=== PATIENT | female | born 1970 | race Two or more races ===

== ENCOUNTER 2020-07-24 09:39 | Outpatient (REF) | payer MEDICAID, SELFPAY ==
--- NOTE | 2020-07-24 | MM_ITS ---
PROCEDURE: US GUIDED BREAST BIOPSY, LEFT CLINICAL INFORMATION: Left breast lesion lateral axillary tail COMPARISON: April 01, 2020 PROCEDURAL DETAILS: The details of the procedure, as well as the risks, benefits, and alternatives to the procedure were explained to the patient in detail and all of her questions were answered, after which written informed consent was obtained. Site and side were confirmed. Prior to the procedure, sonography revealed homogeneous mildly hypoechoic circumscribed lesion possibly representing a lipoma at approximately the 2 to 3:00 position. A time-out was performed, the lesion intended for biopsy was targeted, and the skin of the left breast was then prepped and draped in the usual sterile fashion. Using sonographic guidance, sterile technique, and 1% lidocaine without epinephrine for local anesthesia, multiple automated core biopsies were obtained through the targeted area with a 14G spring loaded Achieve core biopsy device. There was real-time confirmation of appropriate needle passage. Sampling was documented. At the completion of tissue sampling, a single butterfly shape metallic clip was deposited at the biopsy site. There was no evidence of immediate complication. SPECIMEN: An appropriate sample was obtained. DIGITAL POST-PROCEDURE MAMMOGRAPHY: Breast density: The tissue contains scattered areas of fibroglandular density. BI-RADS version 5, category B. Due to the deep lateral aspect of the biopsy site the clip could not be imaged on mammography. The patient tolerated the procedure well and, after assuring adequate hemostasis, was discharged in good condition after reviewing postbiopsy breast care instructions. Final pathology results are pending. MM/MM diagnostic mammo unilat LT IMPRESSION: 1. No immediate complication from ultrasound-guided percutaneous biopsy left breast. 2. Ultrasound was used to localize and guide marker clip placement. 3. Final pathology results are pending. A separate report with final recommendations will be issued once these results are made available.
== END 2020-07-24 09:40 | disposition home or self-care (01) ==
LOC: HO.MAMMO 09:39
PROVIDERS: PCP Internal Medicine; Visit Provider Family Medicine
DX: N63.20 Unspecified lump in the left breast, unspecified quadrant (principal)
CPT/HCPCS: 19083; 77065; 88305

== ENCOUNTER 2020-08-25 10:59 | Outpatient (REF) | payer MEDICAID, SELFPAY ==
[2020-08-26 11:07] LABS: BV Int Neg Control Negative (Negative); BV Int Pos Control Positive (Positive)
[2020-08-28 16:13] LABS: HPV mRNA E6/E7 rflx Not Detected (Not Detected)
[2020-09-19 10:42] LABS: CT PCR NOT DETECTED (Not Detect.); NG PCR NOT DETECTED (Not Detect.)
== END 2020-08-25 11:00 | disposition home or self-care (01) ==
LOC: HO.LAB 10:59
PROVIDERS: PCP Family Medicine; Referring Provider Family Medicine; Visit Provider Advanced Practice Midwife
DX: R10.2 Pelvic and perineal pain (principal); R87.619 Unspecified abnormal cytological findings in specimens from cervix uteri; Z86.718 Personal history of other venous thrombosis and embolism; Z86.711 Personal history of pulmonary embolism
CPT/HCPCS: 81025; 87480; 87491; 87510; 87591; 87624; 87625; 87660; 88141; 88142; 99202

== ENCOUNTER 2020-09-02 10:55 | Outpatient (REF) | payer MEDICAID, SELFPAY ==
--- NOTE | 2020-09-02 10:59 | US_ITS ---
EXAMINATION: US PELVIS COMPLETE. CLINICAL INFORMATION: Pelvic pain. History of endometriosis removal. COMPARISON: None TECHNIQUE: Transabdominal and transvaginal ultrasound of the pelvis is performed. FINDINGS: The uterus is anteverted measuring 8.8 cm in length, 4.8 cm in AP and 6.3 cm in transverse dimension. There is a heterogeneous-appearing myometrium. Endometrium thickness is not well seen. There is a hypoechoic lesion in the left fundus measuring 1.9 x 2.4 x 3.3 cm. A smaller hypoechoic lesion in the anterior right body of the uterus measures 1.1 x 0.9 x 1.1 cm. There are small nabothian cysts seen in the cervix. Likely acute-appearing uterus is suspected. Right ovary measures 2.8 x 1.2 x 2.5 cm and volume 4.4 mL. It appears unremarkable. The left ovary measures 3.4 x 2.1 x 2.7 cm and volume 10.2 mL. There is a small anechoic cyst measuring 2.6 x 2.0 x 1.8 cm and a small daughter cyst within. There is small amount of free fluid in the pelvis. US/US transvaginal IMPRESSION: 1. Two uterine fibroids as described above. The uterus probably has an arcuate appearance. The myometrium is heterogeneous. 2. Small daughter cyst, left ovary. 3. Small nabothian cysts in the cervix.
--- NOTE | 2020-09-02 10:59 | US_ITS ---
EXAMINATION: US PELVIS COMPLETE. CLINICAL INFORMATION: Pelvic pain. History of endometriosis removal. COMPARISON: None TECHNIQUE: Transabdominal and transvaginal ultrasound of the pelvis is performed. FINDINGS: The uterus is anteverted measuring 8.8 cm in length, 4.8 cm in AP and 6.3 cm in transverse dimension. There is a heterogeneous-appearing myometrium. Endometrium thickness is not well seen. There is a hypoechoic lesion in the left fundus measuring 1.9 x 2.4 x 3.3 cm. A smaller hypoechoic lesion in the anterior right body of the uterus measures 1.1 x 0.9 x 1.1 cm. There are small nabothian cysts seen in the cervix. Likely acute-appearing uterus is suspected. Right ovary measures 2.8 x 1.2 x 2.5 cm and volume 4.4 mL. It appears unremarkable. The left ovary measures 3.4 x 2.1 x 2.7 cm and volume 10.2 mL. There is a small anechoic cyst measuring 2.6 x 2.0 x 1.8 cm and a small daughter cyst within. There is small amount of free fluid in the pelvis. US/US pelvic complete IMPRESSION: 1. Two uterine fibroids as described above. The uterus probably has an arcuate appearance. The myometrium is heterogeneous. 2. Small daughter cyst, left ovary. 3. Small nabothian cysts in the cervix.
== END 2020-09-02 10:56 | disposition home or self-care (01) ==
LOC: HO.HMGCX 10:55
PROVIDERS: Visit Provider Advanced Practice Midwife
DX: R10.2 Pelvic and perineal pain (principal)
CPT/HCPCS: 76830; 76856

== ENCOUNTER → 2020-09-14 10:36 | Outpatient (BNVA) | payer MEDICAID, SELFPAY | PROVIDERS: PCP Family Medicine; Visit Provider Advanced Practice Midwife | DX: Z76.89 Persons encountering health services in other specified circumstances (principal) ==

== ENCOUNTER → 2020-12-08 13:37 | Outpatient (BNVA) | payer MEDICAID, SELFPAY | PROVIDERS: PCP Family Medicine; Visit Provider Advanced Practice Midwife | DX: N91.5 Oligomenorrhea, unspecified (principal); N76.4 Abscess of vulva; N95.1 Menopausal and female climacteric states; R23.2 Flushing | CPT/HCPCS: 81025; 99212 ==

== ENCOUNTER 2021-03-03 12:23 | Outpatient (REF) | payer MEDICAID, SELFPAY ==
--- NOTE | ~2021-03-03 | XR_ITS ---
EXAMINATION: XR ABDOMEN KUB CLINICAL INDICATION: Pelvic and perineal pain. COMPARISON: CT abdomen and pelvis 02/28/2020 TECHNIQUE: AP view of the abdomen. FINDINGS: There is a left ureteral stent with its tip in the left kidney pelvis and distal end in the ureter. There is scattered stool seen in the colon without distention. There is previous gallbladder resection. Mild facet joint arthropathy seen on the right at the L5-S1 disc level with minimal levoscoliosis mid lumbar spine. XR/XR KUB IMPRESSION: Mild constipation. Left intraureteral stent seen with no radiopaque calculi.
--- NOTE | ~2021-03-03 | CT_ITS ---
EXAMINATION: CT HIP WITHOUT CONTRAST, RIGHT CLINICAL INFORMATION: Myalgia. Pelvic pain. COMPARISON: None TECHNIQUE: 2 mm thin axial and reformatted 2 mm thin sagittal and coronal images of right hip were obtained. DLP: 204 mGy-cm This CT examination was performed using dose optimization techniques as appropriate, variously including the following: *Automated exposure control *Adjustment of mA and/or kV according to patient size (this includes techniques or standardized protocols for targeted exams where dose is matched to indication/reason for exam; i.e. extremities or head) *Use of iterative reconstruction technique. FINDINGS: There is normal alignment of right hip joint without any bony erosive changes or loose bodies. There is mild lateral acetabular spurring. No acute fracture or dislocation seen. The soft tissues are normal. CT/CT hip RT wo con IMPRESSION: 1. Mild lateral acetabular spurring. Otherwise unremarkable CT right hip exam 2. No visible acute fracture, dislocation, or bony erosive changes. The soft tissues are normal.
== END 2021-03-03 12:24 | disposition home or self-care (01) ==
LOC: HO.CT 12:23
PROVIDERS: Absent Provider Urology; PCP Family Medicine; Visit Provider Family Medicine
DX: R10.2 Pelvic and perineal pain (principal); M79.18 Myalgia, other site
CPT/HCPCS: 73700; 74018

== ENCOUNTER 2021-03-04 14:49 | Outpatient (REF) | payer MEDICAID, SELFPAY ==
--- NOTE | ~2021-03-04 | XR_ITS ---
EXAMINATION: CR RIGHT ANKLE. CR LEFT ANKLE. CR RIGHT FOOT. CR LEFT FOOT. CR RIGHT FINGER. CLINICAL INFORMATION: Pain in left ankle and joints of the left foot. Pain in right ankle and joints of right foot. Pain in right fingers. COMPARISON: Left foot films dated 07/02/2018. TECHNIQUE: 2 views of the right and left ankle. 3 views of the right and left feet, frontal view of the hand and coned-down oblique and lateral views of the first digit. FINDINGS: Left foot and ankle: No acute fracture or dislocation of the right foot and ankle. No significant ankle joint effusion. Ankle mortise symmetric and intact. Mild degenerative change at the first MTP joint again seen with joint space narrowing, spurring and sclerosis and small cystic changes, unchanged from 07/02/2018. Right foot and ankle: No acute fracture or dislocation. Ankle mortise symmetric and intact. No ankle joint effusion. Mild degenerative change at the first MTP joint, less advanced than on the contralateral left foot. Mild spurring versus sequelae of old avulsion injuries seen at the tips of the medial and lateral malleoli. Small plantar calcaneal spur seen. Right first finger: No acute fracture or dislocation. Minimal degenerative change at the first MTP joint with early spurring and cystic changes noted. No significant joint space narrowing seen. Mild cystic change also noted in the scaphoid and lunate bones. No soft tissue calcifications.. XR/XR finger RT min 2V IMPRESSION: 1. Mild osteoarthritic changes at the first MTP joints of both feet, left slightly more advanced than right. 2. Minimal degenerative change at the first MTP joint of the right first digit. 3. No acute fracture or dislocation involving the right ankle, right foot, left ankle, left foot, and right finger.
--- NOTE | ~2021-03-04 | XR_ITS ---
EXAMINATION: CR RIGHT ANKLE. CR LEFT ANKLE. CR RIGHT FOOT. CR LEFT FOOT. CR RIGHT FINGER. CLINICAL INFORMATION: Pain in left ankle and joints of the left foot. Pain in right ankle and joints of right foot. Pain in right fingers. COMPARISON: Left foot films dated 07/02/2018. TECHNIQUE: 2 views of the right and left ankle. 3 views of the right and left feet, frontal view of the hand and coned-down oblique and lateral views of the first digit. FINDINGS: Left foot and ankle: No acute fracture or dislocation of the right foot and ankle. No significant ankle joint effusion. Ankle mortise symmetric and intact. Mild degenerative change at the first MTP joint again seen with joint space narrowing, spurring and sclerosis and small cystic changes, unchanged from 07/02/2018. Right foot and ankle: No acute fracture or dislocation. Ankle mortise symmetric and intact. No ankle joint effusion. Mild degenerative change at the first MTP joint, less advanced than on the contralateral left foot. Mild spurring versus sequelae of old avulsion injuries seen at the tips of the medial and lateral malleoli. Small plantar calcaneal spur seen. Right first finger: No acute fracture or dislocation. Minimal degenerative change at the first MTP joint with early spurring and cystic changes noted. No significant joint space narrowing seen. Mild cystic change also noted in the scaphoid and lunate bones. No soft tissue calcifications.. XR/XR foot LT min 3V IMPRESSION: 1. Mild osteoarthritic changes at the first MTP joints of both feet, left slightly more advanced than right. 2. Minimal degenerative change at the first MTP joint of the right first digit. 3. No acute fracture or dislocation involving the right ankle, right foot, left ankle, left foot, and right finger.
--- NOTE | ~2021-03-04 | US_ITS ---
EXAMINATION: US VENOUS ULTRASOUND WITH DOPPLER LOWER EXTREMITY, BILATERAL CLINICAL INFORMATION: Bilateral leg pain COMPARISON: None TECHNIQUE: Ultrasound of the deep veins is performed from the hip to the calf with compression sonography and color and pulse Doppler assessment. Spectral analysis with color-flow imaging is performed. FINDINGS: RIGHT: There is normal venous compression and respiratory variation and augmented flow. The visualized common femoral vein, superficial femoral vein, profunda femoral vein, popliteal vein, and the trifurcation region shows no evidence of deep venous thrombosis. There is no significant popliteal fossa cyst. LEFT: There is normal venous compression and respiratory variation and augmented flow. The visualized common femoral vein, superficial femoral vein, profunda femoral vein, popliteal vein, and the trifurcation region shows no evidence of deep venous thrombosis. There is no significant popliteal fossa cyst. US/US venous duplex LE BI IMPRESSION: No DVT demonstrated in the bilateral lower extremity.
== END 2021-03-04 14:50 | disposition home or self-care (01) ==
LOC: HO.US 14:49
PROVIDERS: Absent Provider Family Medicine; PCP Family Medicine; Visit Provider Emergency Medicine
DX: M79.604 Pain in right leg (principal); M79.605 Pain in left leg; M79.644 Pain in right finger(s); M25.571 Pain in right ankle and joints of right foot; M25.572 Pain in left ankle and joints of left foot; M79.671 Pain in right foot; M79.672 Pain in left foot
CPT/HCPCS: 73140; 73600; 73630; 93970

== ENCOUNTER → 2021-03-10 14:03 | Outpatient (BNVA) | payer MEDICAID, SELFPAY | PROVIDERS: PCP Family Medicine; Visit Provider Urology ==

== ENCOUNTER 2021-03-10 14:52 | Emergency (ER) | payer MEDICAID, SELFPAY ==
[2021-03-10] VITALS (8 sets, daily range): BP systolic 134–155; BP diastolic 74–88; PULSE 69–78; RESP 16–20; TEMP 36.4–36.9; O2SAT 96–100; BMI 32.9
--- NOTE | 2021-03-10 15:31 | ECG_ITS ---
Test Reason : SOB Blood Pressure : / mmHG Vent. Rate : 069 BPM Atrial Rate : 069 BPM P-R Int : 146 ms QRS Dur : 098 ms QT Int : 426 ms P-R-T Axes : -05 017 014 degrees QTc Int : 456 ms Normal sinus rhythm Normal ECG When compared with ECG of 28-FEB-2020 17:30, No significant change was found Referred By: Cailin Lindsey Electronically Signed By:LISA NELSON MD
--- NOTE | 2021-03-10 15:31 | ED_ITS ---
HPI - Weakness General Chief complaint: Weakness Stated complaint: low blood sugar Time Seen by Provider: 03/10/21 15:29 Source: patient Mode of arrival: ambulatory Limitations: no limitations History of Present Illness HPI Narrative: 50 y/o female with history of asthma, anxiety, diabetes, endometriosis, hx DVT/PE, multiple sclerosis & HTN who presents to the ER from Dr. Paez's office with generalized weakness. She was over seeing Dr. Paez in the office for on/off hematuria x1 month. She felt like her glucose was low with generalized weakness so they sent her over for evaluation. POC 70. Patient admits to multiple falls at home over the last 1 month. She states as frequent as every other day. She lives home alone. She gets monthly infusions for her MS and is followed at [facility]. Had recent CT scan she thinks. She denies any numbness or tingling beyond her baseline; she suffers from neuropathy in her legs that is at its baseline. She denies fever, chills, abd pain, N/V, or dysuria. No focal weakness, speech difficulties or facial drooping. She checks her glucose once per day in the mornings and it has been on the lower side, 90's. Complaint: generalized weakness Onset (ago): week(s) Duration: constant Location: generalized Migration: none Severity: moderate Relieving factors: rest Exacerbating factors: movement and exertion Context: history of similar Associated symptoms: headaches and other (hematuria) Related Data Home Medications Medication Instructions Recorded Confirmed acetaminophen 325 mg capsule 650 mg PO Q6H PRN 08/25/20 albuterol sulfate 2.5 mg INHALATION Q4-6H PRN 08/25/20 albuterol sulfate 90 mcg/actuation 2 puff INHALATION Q4-6H PRN 08/25/20 aerosol inhaler alcohol swabs pad TOPICAL 08/25/20 apixaban 5 mg tablet 5 mg PO BID 08/25/20 aripiprazole 15 mg tablet 15 mg PO DAILY 08/25/20 atorvastatin 40 mg tablet 40 mg PO DAILY 08/25/20 blood sugar diagnostic #10 ea 08/25/20 buprenorphine 8 mg-naloxone 2 mg 1 film BUCCAL DAILY 08/25/20 sublingual film carboxymethylcellulose sodium 1 % 1 drp OPHTHALMIC (EYE) TID 08/25/20 eye drops cetirizine 10 mg capsule 10 mg PO DAILY 08/25/20 cholecalciferol (vitamin D3) 25 25 mcg PO DAILY 08/25/20 mcg (1,000 unit) capsule diphenhydramine HCl 25 mg capsule 25 mg PO Q6-8H PRN cap 08/25/20 docusate sodium 100 mg capsule 100 mg PO DAILY 08/25/20 doxepin 25 mg capsule 25 mg PO BEDTIME 08/25/20 famotidine 40 mg tablet 40 mg PO DAILY 08/25/20 fluticasone propionate 110 1 puff INHALATION BID 08/25/20 mcg/actuation HFA aerosol inhaler fluticasone propionate 50 2 spray INTRANASAL DAILY 08/25/20 mcg/actuation nasal spray,suspension insulin glargine 100 unit/mL (3 20 unit SUBCUT QAM 08/25/20 mL) subcutaneous pen lancets 28 gauge #100 ea 08/25/20 lidocaine 5 % topical cream 1 appl TOPICAL TID PRN 08/25/20 lorazepam 0.5 mg tablet 0.5 mg PO DAILY PRN 08/25/20 losartan 50 mg tablet 50 mg PO DAILY 08/25/20 metformin 1,000 mg tablet 1,000 mg PO BID 08/25/20 montelukast 10 mg tablet 10 mg PO BEDTIME 08/25/20 multivitamin 1 tab PO DAILY 08/25/20 natalizumab 300 mg/15 mL 300 mg IV Q4W 08/25/20 intravenous solution nebulizers #1 ea 08/25/20 nitroglycerin 0.4 mg sublingual 0.4 mg SUBLINGUAL Q5M PRN 08/25/20 tablet oxybutynin chloride 15 mg 15 mg PO BID tab 08/25/20 tablet,extended release 24 hr pen needle, diabetic 32 gauge x #50 ea 08/25/20 polyethylene glycol 3350 17 gram 17 g PO DAILY 08/25/20 oral powder packet prazosin 1 mg capsule 1 mg PO BID 08/25/20 sennosides 8.6 mg capsule 17.2 mg PO DAILY PRN cap 08/25/20 topiramate 100 mg capsule 100 mg PO DAILY 08/25/20 sprinkle,extended release 24 hr trazodone 100 mg tablet 100 mg PO BEDTIME PRN 08/25/20 venlafaxine 150 mg 150 mg PO DAILY 08/25/20 capsule,extended release 24 hr venlafaxine 75 mg capsule,extended 75 mg PO DAILY 08/25/20 release 24 hr losartan 25 mg tablet 25 mg PO DAILY 03/10/21 Previous Rx's Medication Instructions Recorded oxybutynin chloride 10 mg 15 mg PO BID 90 Days #270 tab 09/08/20 tablet,extended release 24 hr Allergies Allergy/AdvReac Type Severity Reaction Status Date / Time Iodinated Contrast Media Allergy Severe THROAT Verified 03/10/21 14:22 [IV CONTRAST] CLOSING lithium [LITHIUM] Allergy Intermediate AGGRESSION, Verified 03/10/21 14:22 stiffened up & throat closing (moderate to severe) fluoxetine [FLUOXETINE] Allergy Mild ITCHING Verified 03/10/21 14:22 risperidone [From RISPERDAL] Allergy Mild ITCHING Verified 03/10/21 14:22 asparagus [ASPARAGUS] Allergy Unknown unknown Verified 03/10/21 14:22 divalproex sodium Allergy Unknown UNKNOWN, Verified 03/10/21 14:22 [From DEPAKOTE] stiffened up, locked jaw lisinopril [LISINOPRIL] Allergy Unknown COUGH Verified 03/10/21 14:22 olanzapine Allergy Unknown can't Verified 03/10/21 14:22 recall if hives or increased pollen extracts [POLLEN] Allergy Unknown unknown Verified 03/10/21 14:22 tomato [TOMATO] Allergy Unknown UNKNOWN Verified 03/10/21 14:22 quetiapine [From SEROQUEL] AdvReac Intermediate OVERSEDATIO Verified 03/10/21 14:22 N ASPARAGUS Allergy Unknown Unknown Uncoded 08/25/20 11:09 BROCCOLI Allergy Unknown Unknown Uncoded 08/25/20 11:09 Fluoxetine Allergy Unknown suicidality Uncoded 02/25/20 00:00 FUMARATE Allergy Unknown Unknown Uncoded 08/25/20 11:09 GREEN CHEUNG Allergy Unknown Unknown Uncoded 08/25/20 11:09 GREEN BEANS Allergy Unknown UNKNOWN Uncoded 05/28/20 15:29 TOMATO Allergy Unknown Unknown Uncoded 08/25/20 11:09 Review of Systems Review of Systems: Constitutional: No Fever, No Chills ENT/Mouth: No sore throat, No Rhinorrhea, No Swallowing Difficulty Eyes: No Eye Pain, No Swelling, No Redness Cardiovascular: No Chest Pain, No SOB, No Orthopnea, No Edema Respiratory: No Cough, No Sputum, No Wheezing, No dyspnea Gastrointestinal: No Nausea, No Vomiting, No Diarrhea, No abdominal Pain Genitourinary: No Dysuria, + Urinary Frequency, + Hematuria Musculoskeletal: No joint pain, + Myalgias Skin: No Skin Lesions, No rash Neuro: + Weakness, No Numbness, + Dizziness, + Headache Psych: + Anxiety/Panic, No Depression Heme/Lymph: No Bruising, No Lymphadenopathy Endocrine: No Polyuria, No Polydipsia PMFSH Past Medical History Attestation statement: The following information was validated with the patient. Medical History Anxiety Asthma Diabetes mellitus Endometriosis History of DVT (deep vein thrombosis) History of pulmonary embolus (PE) HTN (hypertension) Multiple sclerosis Surgical History Hx of appendectomy Hx of cholecystectomy Hx of dilation and curettage Hx of tubal ligation Family History Family History Mother Rheumatoid arteritis COPD (chronic obstructive pulmonary disease) Father HTN (hypertension) Diabetes mellitus Social History Social History Alcohol intake: current Alcohol intake frequency: 0-2 drinks per day Patient Tobacco Use Status: Former Tobacco user Cigarettes Per Day: 4 Use of substances other than those prescribed or required for medical reasons: No Advance Directives: No Advance Directives Information Provided: Yes Gender identity: female Physical Exam Vital Signs: Vital Signs: Last Vital Signs Temp 97.6 F 03/10/21 17:15 Pulse 72 03/10/21 19:19 Resp 18 03/10/21 19:19 BP 152/85 H 03/10/21 19:19 Pulse Ox 99 03/10/21 19:19 Body Mass Index 32.9 Appearance: Alert. Oriented X3. No acute distress. Eyes: Pupils equal, round and reactive to light. EOMI, no nystagmus ENT: Pharynx normal. Neck: Normal inspection. Neck supple. CVS: Normal heart rate and rhythm. Pulses normal. Respiratory: No respiratory distress. Breath sounds normal. Abdomen: Softly distended and nontender. +BS x4 Skin: Skin warm and dry. Normal skin color. Normal skin turgor. No rashes. Extremities: No lower extremity edema. no signs of trauma Neuro: Oriented X 3. No motor deficit. bilateral lower extremities with mild weakness, able to lift both legs off the bed and minimally against gravity. equal and symmetrial strength of UE. NIH Stroke Scale Internal: Initial- Upon Arrival Level of Consciousness: Alert Level of Consciousness Questions: Answers both questions correctly Level of Consciousness Commands: Performs both tasks correctly Best Gaze: Normal Visual: No visual loss Facial Palsy: Normal Motor Arm (Right): No drift Motor Arm (Left): No drift Motor Leg (Right): Some effort against gravity Motor Leg (Left): Some effort against gravity Limb Ataxia: Absent Sensory: Mild to moderate sensory loss Best Language: No aphasia Dysarthia: Normal Extinction and Inattention: No abnormality Score: 5 Course Course Course Narrative: 50 y/o female with history of MS, diabetes, DVT/PE presenting with generalized weakness, multiple falls, hematuria x1 month and hypoglycemia. FS 54 on chemistry. Given PO with improvement. Neuro exam is nonfocal with chronic symptoms from neuropathy and MS. Doubt CVA/ Not a tPA candidate, she is on anticoagulation with weakness x1 month. Will get metabolic workup and monitor glucose closely. Reevaluation(s) Reevaluation #1: WBC 11.4. Labs unremarkable aside from hypoglycemia which is stable with PO intake. UA is grossly positive for infection. This is likely the cause of her weakness. We discussed concerns about safety at home with multiple falls and living alone. She would prefer to be admitted. Case d/w Dr. Moon who recommends PT/CM for short term rehab placement rather than admission. Patient is agreeable to spending the night in the ER, getting PT evaluation for possible services at home vs STR. PO abx started for UA Physician observation started at 7:30pm. Patient placed in physician observation because patient is awaiting PT evaluation for the possible need of placement to short term rehab. At the time observation was started patient's vital signs were stable. Patient is alert and oriented. Neuro exam is non-focal. CV: RRR and lungs are clear. Will continue to monitor. MDM - Weakness Medical Records Attestation: I reviewed the patient's medical records. Lab Data Attestation: I reviewed the patient's lab results. Result diagrams: 03/10/21 15:35 03/10/21 15:35 Labs: Lab Results 03/10/21 03/10/21 03/10/21 Range/Units 14:56 15:35 15:35 WBC 11.4 H (4.8-10.8) X10*3/uL RBC 4.44 (4.20-5.50) X10*6/uL Hgb 12.1 (12.0-16.0) g/dl Hct 37.0 (37-47) % MCV 83.3 (80-98) fL MCH 27.3 (27.0-33.0) pg MCHC 32.7 (31.0-35.0) g/dl RDW 13.7 (11.0-16.0) % Plt Count 272 (160-400) X10*3/uL MPV 9.2 L (9.4-12.3) fL Immature Gran % (Auto) 0.3 (0.0-0.4) % Neut % (Auto) 75.7 H (45-73) % Lymph % (Auto) 16.4 L (20-40) % [place] % (Auto) 5.8 (2-11) % Eos % (Auto) 1.5 (0-4) % Baso % (Auto) 0.3 (0-2) % Lymph # (Auto) 1.9 (1.2-4.9) X10*3/uL [place] # (Auto) 0.7 (0.1-1.2) X10*3/uL Eos # (Auto) 0.2 (0.0-0.4) X10*3/uL Baso # (Auto) 0.0 (0.0-0.2) X10*3/uL Abs Immat Gran (auto) 0.03 (0.00-0.03) X10*3/uL Absolute Neuts (auto) 8.7 H (2.0-8.3) X10*3/uL Absolute Nucleated RBC 0.000 (0.0-0.012) X10*3/uL Nucleated RBC % (auto) 0.0 (0.0-0.2) /100WBC PT (10.8-13.0) SEC INR (0.9-1.1) APTT (24.1-38.0) SEC Sodium 142 (135-145) mmol/L Potassium 3.6 (3.3-5.1) mmol/L Chloride 111 H (96-108) mmol/L Carbon Dioxide 22 (22-29) mmol/L Anion Gap 13 (12-20) BUN 13 (9-16) mg/dL Creatinine 0.77 (0.5-1.4) mg/dL Estim Creat Clear Calc 88.4 Estimated GFR > 60 POC Glucose 70 (60-115) mg/dL Random Glucose 52 L* (60-115) mg/dL Calcium 9.1 (8.4-10.2) mg/dL Magnesium 1.7 (1.6-2.6) mg/dL Total Bilirubin 0.2 (0.0-1.0) mg/dL Direct Bilirubin < 0.2 (0.0-0.5) mg/dL AST 22 (5-31) U/L ALT 22 (0-31) U/L Alkaline Phosphatase 95 (39-117) U/L Total Protein 6.6 (6.5-8.0) g/dL Albumin 3.9 (3.5-5.0) g/dL Urine Color Urine Appearance Urine pH (5.0-8.0) Ur Specific [place] (1.005-1.025) Urine Protein (NEG-TRACE) MG/DL Urine Glucose (UA) (NEG) MG/DL Urine Ketones (NEG) MG/DL Urine Blood (NEG) Urine Nitrite (NEG) Ur Leukocyte Esterase (NEG) Urine RBC (0) /HPF Urine WBC (0-4) /HPF Ur Squamous Epith Cells /LPF Urine Bacteria /LPF Urine Mucus /LPF Urine Opiates Screen (Not Detect) Ur Barbiturates Screen (Not Detect) Ur Phencyclidine Scrn (Not Detect) Ur Amphetamines Screen (Not Detect) U Benzodiazepines Scrn (Not Detect) Urine Cocaine Screen (Not Detect) U Marijuana (THC) Screen (Not Detect) 03/10/21 03/10/21 03/10/21 Range/Units 15:35 16:01 16:01 WBC (4.8-10.8) X10*3/uL RBC (4.20-5.50) X10*6/uL Hgb (12.0-16.0) g/dl Hct (37-47) % MCV (80-98) fL MCH (27.0-33.0) pg MCHC (31.0-35.0) g/dl RDW (11.0-16.0) % Plt Count (160-400) X10*3/uL MPV (9.4-12.3) fL Immature Gran % (Auto) (0.0-0.4) % Neut % (Auto) (45-73) % Lymph % (Auto) (20-40) % [place] % (Auto) (2-11) % Eos % (Auto) (0-4) % Baso % (Auto) (0-2) % Lymph # (Auto) (1.2-4.9) X10*3/uL [place] # (Auto) (0.1-1.2) X10*3/uL Eos # (Auto) (0.0-0.4) X10*3/uL Baso # (Auto) (0.0-0.2) X10*3/uL Abs Immat Gran (auto) (0.00-0.03) X10*3/uL Absolute Neuts (auto) (2.0-8.3) X10*3/uL Absolute Nucleated RBC (0.0-0.012) X10*3/uL Nucleated RBC % (auto) (0.0-0.2) /100WBC PT 11.3 (10.8-13.0) SEC INR 1.0 (0.9-1.1) APTT 41.9 H (24.1-38.0) SEC Sodium (135-145) mmol/L Potassium (3.3-5.1) mmol/L Chloride (96-108) mmol/L Carbon Dioxide (22-29) mmol/L Anion Gap (12-20) BUN (9-16) mg/dL Creatinine (0.5-1.4) mg/dL Estim Creat Clear Calc Estimated GFR POC Glucose (60-115) mg/dL Random Glucose (60-115) mg/dL Calcium (8.4-10.2) mg/dL Magnesium (1.6-2.6) mg/dL Total Bilirubin (0.0-1.0) mg/dL Direct Bilirubin (0.0-0.5) mg/dL AST (5-31) U/L ALT (0-31) U/L Alkaline Phosphatase (39-117) U/L Total Protein (6.5-8.0) g/dL Albumin (3.5-5.0) g/dL Urine Color YELLOW Urine Appearance CLEAR Urine pH 6.5 (5.0-8.0) Ur Specific [place] <= 1.005 (1.005-1.025) Urine Protein NEG (NEG-TRACE) MG/DL Urine Glucose (UA) NEG (NEG) MG/DL Urine Ketones NEG (NEG) MG/DL Urine Blood 3+ H (NEG) Urine Nitrite POS H (NEG) Ur Leukocyte Esterase 2+ H (NEG) Urine RBC 15-29 H (0) /HPF Urine WBC 15-29 H (0-4) /HPF Ur Squamous Epith Cells 2+ /LPF Urine Bacteria TRACE /LPF Urine Mucus 2+ /LPF Urine Opiates Screen Not Detected (Not Detect) Ur Barbiturates Screen Not Detected (Not Detect) Ur Phencyclidine Scrn Not Detected (Not Detect) Ur Amphetamines Screen Not Detected (Not Detect) U Benzodiazepines Scrn Not Detected (Not Detect) Urine Cocaine Screen Not Detected (Not Detect) U Marijuana (THC) Screen Not Detected (Not Detect) 03/10/21 03/10/21 03/10/21 Range/Units 17:18 17:56 19:07 WBC (4.8-10.8) X10*3/uL RBC (4.20-5.50) X10*6/uL Hgb (12.0-16.0) g/dl Hct (37-47) % MCV (80-98) fL MCH (27.0-33.0) pg MCHC (31.0-35.0) g/dl RDW (11.0-16.0) % Plt Count (160-400) X10*3/uL MPV (9.4-12.3) fL Immature Gran % (Auto) (0.0-0.4) % Neut % (Auto) (45-73) % Lymph % (Auto) (20-40) % [place] % (Auto) (2-11) % Eos % (Auto) (0-4) % Baso % (Auto) (0-2) % Lymph # (Auto) (1.2-4.9) X10*3/uL [place] # (Auto) (0.1-1.2) X10*3/uL Eos # (Auto) (0.0-0.4) X10*3/uL Baso # (Auto) (0.0-0.2) X10*3/uL Abs Immat Gran (auto) (0.00-0.03) X10*3/uL Absolute Neuts (auto) (2.0-8.3) X10*3/uL Absolute Nucleated RBC (0.0-0.012) X10*3/uL Nucleated RBC % (auto) (0.0-0.2) /100WBC PT (10.8-13.0) SEC INR (0.9-1.1) APTT (24.1-38.0) SEC Sodium (135-145) mmol/L Potassium (3.3-5.1) mmol/L Chloride (96-108) mmol/L Carbon Dioxide (22-29) mmol/L Anion Gap (12-20) BUN (9-16) mg/dL Creatinine (0.5-1.4) mg/dL Estim Creat Clear Calc Estimated GFR POC Glucose 54 L* 102 183 H (60-115) mg/dL Random Glucose (60-115) mg/dL Calcium (8.4-10.2) mg/dL Magnesium (1.6-2.6) mg/dL Total Bilirubin (0.0-1.0) mg/dL Direct Bilirubin (0.0-0.5) mg/dL AST (5-31) U/L ALT (0-31) U/L Alkaline Phosphatase (39-117) U/L Total Protein (6.5-8.0) g/dL Albumin (3.5-5.0) g/dL Urine Color Urine Appearance Urine pH (5.0-8.0) Ur Specific [place] (1.005-1.025) Urine Protein (NEG-TRACE) MG/DL Urine Glucose (UA) (NEG) MG/DL Urine Ketones (NEG) MG/DL Urine Blood (NEG) Urine Nitrite (NEG) Ur Leukocyte Esterase (NEG) Urine RBC (0) /HPF Urine WBC (0-4) /HPF Ur Squamous Epith Cells /LPF Urine Bacteria /LPF Urine Mucus /LPF Urine Opiates Screen (Not Detect) Ur Barbiturates Screen (Not Detect) Ur Phencyclidine Scrn (Not Detect) Ur Amphetamines Screen (Not Detect) U Benzodiazepines Scrn (Not Detect) Urine Cocaine Screen (Not Detect) U Marijuana (THC) Screen (Not Detect) 03/10/21 Range/Units 19:29 WBC (4.8-10.8) X10*3/uL RBC (4.20-5.50) X10*6/uL Hgb (12.0-16.0) g/dl Hct (37-47) % MCV (80-98) fL MCH (27.0-33.0) pg MCHC (31.0-35.0) g/dl RDW (11.0-16.0) % Plt Count (160-400) X10*3/uL MPV (9.4-12.3) fL Immature Gran % (Auto) (0.0-0.4) % Neut % (Auto) (45-73) % Lymph % (Auto) (20-40) % [place] % (Auto) (2-11) % Eos % (Auto) (0-4) % Baso % (Auto) (0-2) % Lymph # (Auto) (1.2-4.9) X10*3/uL [place] # (Auto) (0.1-1.2) X10*3/uL Eos # (Auto) (0.0-0.4) X10*3/uL Baso # (Auto) (0.0-0.2) X10*3/uL Abs Immat Gran (auto) (0.00-0.03) X10*3/uL Absolute Neuts (auto) (2.0-8.3) X10*3/uL Absolute Nucleated RBC (0.0-0.012) X10*3/uL Nucleated RBC % (auto) (0.0-0.2) /100WBC PT (10.8-13.0) SEC INR (0.9-1.1) APTT (24.1-38.0) SEC Sodium (135-145) mmol/L Potassium (3.3-5.1) mmol/L Chloride (96-108) mmol/L Carbon Dioxide (22-29) mmol/L Anion Gap (12-20) BUN (9-16) mg/dL Creatinine (0.5-1.4) mg/dL Estim Creat Clear Calc Estimated GFR POC Glucose 153 H (60-115) mg/dL Random Glucose (60-115) mg/dL Calcium (8.4-10.2) mg/dL Magnesium (1.6-2.6) mg/dL Total Bilirubin (0.0-1.0) mg/dL Direct Bilirubin (0.0-0.5) mg/dL AST (5-31) U/L ALT (0-31) U/L Alkaline Phosphatase (39-117) U/L Total Protein (6.5-8.0) g/dL Albumin (3.5-5.0) g/dL Urine Color Urine Appearance Urine pH (5.0-8.0) Ur Specific [place] (1.005-1.025) Urine Protein (NEG-TRACE) MG/DL Urine Glucose (UA) (NEG) MG/DL Urine Ketones (NEG) MG/DL Urine Blood (NEG) Urine Nitrite (NEG) Ur Leukocyte Esterase (NEG) Urine RBC (0) /HPF Urine WBC (0-4) /HPF Ur Squamous Epith Cells /LPF Urine Bacteria /LPF Urine Mucus /LPF Urine Opiates Screen (Not Detect) Ur Barbiturates Screen (Not Detect) Ur Phencyclidine Scrn (Not Detect) Ur Amphetamines Screen (Not Detect) U Benzodiazepines Scrn (Not Detect) Urine Cocaine Screen (Not Detect) U Marijuana (THC) Screen (Not Detect) ECG Data Attestation: I personally reviewed and interpreted this ECG as follows: ECG interpretation date: 03/10/21 ECG interpretation time: 19:06 Interpretation: normal sinus rhythm, HR 69 bpm, normal MO interval, No ST segment depressions or elevations, normal ECG Critical Care Time Critical Care Time Critical Care Time: No Discharge Plan Discharge Clinical Impression: Acute UTI, Hypoglycemia Prescriptions: No Action oxybutynin chloride 10 mg tablet extended release 24hr 15 mg PO BID 90 Days Qty: 270 RF: 2 lorazepam 0.5 mg tablet 0.5 mg PO DAILY PRNRF: 0 oxybutynin chloride 15 mg tablet extended release 24hr 15 mg PO BID RF: 0 doxepin 25 mg capsule 25 mg PO BEDTIME RF: 0 nitroglycerin [Nitrostat] 0.4 mg tablet, sublingual 0.4 mg sublingual Q5M PRNRF: 0 Tysabri 300 mg/15 mL solution 300 mg IV Q4W RF: 0 All Day Allergy (cetirizine) 10 mg capsule 10 mg PO DAILY RF: 0 diphenhydramine HCl [Allergy (diphenhydramine)] 25 mg capsule 25 mg PO Q6-8H PRNRF: 0 polyethylene glycol 3350 [Miralax] 17 gram powder in packet 17 g PO DAILY RF: 0 (DME) AeroEclipse II Nebulizer Misc See Rx Instructions .ROUTE .MEDSUPPLY Qty: 1 RF: 0 Artificial Tears (cmc) 1 % drops 1 drp ophthalmic (eye) TID RF: 0 senna 8.6 mg capsule 17.2 mg PO DAILY PRNRF: 0 albuterol sulfate 2.5 mg /3 mL (0.083 %) solution for nebulization 2.5 mg inhalation Q4-6H PRNRF: 0 acetaminophen 325 mg capsule 650 mg PO Q6H PRNRF: 0 albuterol sulfate [ProAir HFA] 90 mcg/actuation HFA aerosol inhaler 2 puff inhalation Q4-6H PRNRF: 0 Flovent HFA 110 mcg/actuation HFA aerosol inhaler 1 puff inhalation BID RF: 0 alcohol swabs [Alcohol Pads] Pads, Medicated topical RF: 0 aripiprazole [Abilify] 15 mg tablet 15 mg PO DAILY RF: 0 trazodone 100 mg tablet 100 mg PO BEDTIME PRNRF: 0 venlafaxine 75 mg capsule,extended release 24hr 75 mg PO DAILY RF: 0 topiramate 100 mg capsule,sprinkle,ER 24hr 100 mg PO DAILY RF: 0 venlafaxine 150 mg capsule,extended release 24hr 150 mg PO DAILY RF: 0 prazosin 1 mg capsule 1 mg PO BID RF: 0 atorvastatin [Lipitor] 40 mg tablet 40 mg PO DAILY RF: 0 metformin 1,000 mg tablet 1,000 mg PO BID RF: 0 montelukast [Singulair] 10 mg tablet 10 mg PO BEDTIME RF: 0 cholecalciferol (vitamin D3) 25 mcg (1,000 unit) capsule 25 mcg PO DAILY RF: 0 multivitamin Tablet 1 tab PO DAILY RF: 0 (DME) lancets [FreeStyle Lancets] 28 gauge misc See Rx Instructions .ROUTE .MEDSUPPLY Qty: 100 RF: 0 Lantus Solostar U-100 Insulin 100 unit/mL (3 mL) insulin pen 20 unit subcut QAM RF: 0 (DME) FreeStyle Lite Strips Strip See Rx Instructions .ROUTE .MEDSUPPLY Qty: 10 RF: 0 famotidine [Pepcid] 40 mg tablet 40 mg PO DAILY RF: 0 docusate sodium [Colace] 100 mg capsule 100 mg PO DAILY RF: 0 (DME) pen needle, diabetic [Comfort EZ Pen [place]] 32 gauge x 5/32 needle See Rx Instructions .ROUTE .MEDSUPPLY Qty: 50 RF: 0 Eliquis 5 mg tablet 5 mg PO BID RF: 0 fluticasone propionate [Flonase Allergy Relief] 50 mcg/actuation spray,suspension 2 spray intranasal DAILY RF: 0 losartan 50 mg tablet 50 mg PO DAILY RF: 0 lidocaine 5 % cream 1 appl topical TID PRNRF: 0 buprenorphine-naloxone [Suboxone] 8-2 mg film 1 film buccal DAILY RF: 0
[2021-03-10 16:17] LABS: Glucose Urine UA NEG (NEG); Leukocyte Esterase Urine 2+ (NEG); Nitrite Urine POS (NEG); PH 6.5 (5.0-8.0); Specific Gravity - Urine <= 1.005 (1.005-1.025); UACC Culture Trigger YES; Urine Blood 3+ (NEG); Urine Ketones NEG (NEG); Urine Protein NEG (NEG-TRACE)
[2021-03-10 16:18] LABS: Appearance Urine CLEAR; Color Urine YELLOW
[2021-03-10 16:33] LABS: Amphetamine Screen Urine Not Detected (Not Detect); Barbiturates, Urine Not Detected (Not Detect); Benzodiazepines Screen Urine Not Detected (Not Detect); Cannabinoid Screen Urine Not Detected (Not Detect); Cocaine Screen Urine Not Detected (Not Detect); Opiate Screen Urine Not Detected (Not Detect); Phencyclidine Screen Urine Not Detected (Not Detect)
[2021-03-10 16:44] LABS: MANUAL DIFF FLAG NO
[2021-03-10 16:45] LABS: Basophils Percent Auto 0.3 % (0-2); Eosinophils Absolute Auto 0.2 X10*3/uL (0.0-0.4); Eosinophils Percent Auto 1.5 % (0-4); Hemoglobin 12.1 g/dl (12.0-16.0); Imm Gran Abs Auto 0.03 X10*3/uL (0.00-0.03); Imm Gran Pct Auto 0.3 % (0.0-0.4); Lymphocytes Absolute Auto 1.9 X10*3/uL (1.2-4.9); Lymphocytes Percent Auto 16.4 % (20-40); Mean Corpuscular HGB Conc 32.7 g/dl (31.0-35.0); Mean Corpuscular Hemoglobin 27.3 pg (27.0-33.0); Mean Corpuscular Volume 83.3 fL (80-98); Mean Platelet Volume 9.2 fL (9.4-12.3); Monocytes Absolute Auto 0.7 X10*3/uL (0.1-1.2); Monocytes Percent Auto 5.8 % (2-11); Neutrophils Absolute Auto 8.7 X10*3/uL (2.0-8.3); Neutrophils Percent Auto 75.7 % (45-73); Platelet Count 272 X10*3/uL (160-400); Red Blood Count 4.44 X10*6/uL (4.20-5.50); Red Cell Distribution Width 13.7 % (11.0-16.0); White Blood Count 11.4 X10*3/uL (4.8-10.8)
[2021-03-10 16:45] LABS: Bacteria Urine TRACE /LPF; Mucus Urine 2+ /LPF; Squamous Epithelial Cell Urine 2+ /LPF
[2021-03-10 16:51] LABS: Prothrombin Time 11.3 SEC (10.8-13.0)
[2021-03-10 16:54] LABS: Partial Thromboplastin Time 41.9 SEC (24.1-38.0)
--- NOTE | 2021-03-10 17:00 | PC.NURSE ---
Patient has been up to bedside commode x 2 unassisted. Pt states she is feeling a little better
[2021-03-10 17:24] LABS: Glucose, Whole Blood 54 mg/dL (60-115)
[2021-03-10 17:26] LABS: Alanine Aminotransferase 22 U/L (0-31); Albumin Level 3.9 g/dL (3.5-5.0); Alkaline Phosphatase 95 U/L (39-117); Anion Gap 13 (12-20); Aspartate Amino Transferase 22 U/L (5-31); Bilirubin Direct < 0.2 mg/dL (0.0-0.5); Bilirubin Total 0.2 mg/dL (0.0-1.0); Blood Urea Nitrogen 13 mg/dL (9-16); Calcium 9.1 mg/dL (8.4-10.2); Carbon Dioxide 22 mmol/L (22-29); Chloride 111 mmol/L (96-108); Creatinine Clr Calc Pharmacy 88.4; Estimated Glomerular Filt Rate > 60; Glucose Random 52 mg/dL (60-115); Magnesium 1.7 mg/dL (1.6-2.6); Potassium 3.6 mmol/L (3.3-5.1); Sodium 142 mmol/L (135-145); Total Protein 6.6 g/dL (6.5-8.0)
--- NOTE | 2021-03-10 17:33 | PC.NURSE ---
Patient is alert and oriented. Pt given a sandwich and juice for lw POC blood sugar of 52
[2021-03-10 17:57] LABS: Glucose, Whole Blood 70 mg/dL (60-115)
--- NOTE | 2021-03-10 17:59 | PC.NURSE ---
Recheck of POC blood sugar after eating sandwich, juice and pudding is 102. Results given to provider. Provider aware that patient does not have IV access currently due to being a difficulty stick.
[2021-03-10 18:00] LABS: Glucose, Whole Blood 102 mg/dL (60-115)
[2021-03-10 19:13] LABS: Glucose, Whole Blood 183 mg/dL (60-115)
[2021-03-10 19:34] LABS: Glucose, Whole Blood 153 mg/dL (60-115)
--- NOTE | 2021-03-10 19:36 | PC.NURSE ---
pt is a hard iv stick, pt doesnt have a iv at this time. provider Cailin is aware and ok for no iv ascess at this time. po medications given. plan is to stay tonight and be seen by case management.
--- NOTE | 2021-03-10 20:45 | PHA.MEDREC ---
MED REC COMPLETE, NO ISSUESPharmacy Consult ? Medication Reconciliation Pharmacy has completed the medication reconciliation.
[2021-03-10 21:43] LABS: COVID-19 Test Negative (Negative); IDNOW Serial# 9DD0AD1C
--- NOTE | 2021-03-10 22:44 | MHC.CM.ED ---
CM met with patient at request of Dr. Fragoso. Pt has had recent falls, UTI, and has MS. Pt lives alone, uses a cane/walker and has 19.5 hours/week [employer] from [facility]. Pt is agreeable to PT evaluation, and will consider acute rehab at [place] and [facility]. Referrals placed. CM will follow for d/c needs.
[2021-03-11] VITALS: RESP 20; O2SAT 98
--- NOTE | 2021-03-11 01:14 | PC.NURSE ---
pt left her room and was found in the waiting room. pt states she cant sleep due to the pain in her shoulder and arm. pt wants to go home for a warm shower.
[2021-03-11 01:18] VITALS: BP 134/87; PULSE 89; RESP 20; O2SAT 98
[2021-03-11] MEDS: Acetaminophen 325 MG TABLET 975 MG PO (01:47)
[2021-03-11 02:00] VITALS: BP 159/68; PULSE 76; RESP 16; TEMP 36.8; O2SAT 98
[2021-03-11 07:13] VITALS: BP 182/87; PULSE 77; RESP 18; O2SAT 100
--- NOTE | 2021-03-11 07:16 | PC.NURSE ---
Physical Therapy at bedside evaluating patient
--- NOTE | 2021-03-11 07:35 | PC.NURSE ---
Patient sitting in bed eating breakfast in no distress.
[2021-03-11 07:36] VITALS: BP 182/87; PULSE 77; O2SAT 100
[2021-03-11 07:42] LABS: Glucose, Whole Blood 142 mg/dL (60-115)
--- NOTE | 2021-03-11 09:16 | MHC.CM.ED ---
Physical therapy eval completed. Home therapy is recommended. Attempted to meet with patient about arranging home services. Patient is not in her room. Per LUCIUS Johnson patient has not been in her room for about 45 mins. It is assumed that patient left AMA. Will continue to seek out patient. However, if patient left ER AMA, no additional services will be able to be provided. Continue to monitor for d/c needs.
== END 2021-03-11 09:27 | disposition left against medical advice (07) ==
PROVIDERS: Physician Assistant; Emergency Provider Emergency Medicine; PCP Family Medicine
DX: N39.0 Urinary tract infection, site not specified (principal); E11.649 Type 2 diabetes mellitus with hypoglycemia without coma; I10 Essential (primary) hypertension; G35 Multiple sclerosis; J45.909 Unspecified asthma, uncomplicated; Z86.711 Personal history of pulmonary embolism; Z86.718 Personal history of other venous thrombosis and embolism; Z79.01 Long term (current) use of anticoagulants; Z79.4 Long term (current) use of insulin; Z79.899 Other long term (current) drug therapy; Z20.822 Contact with and (suspected) exposure to COVID-19
CPT/HCPCS: 36415; 80048; 80076; 80307; 81001; 81003; 82947; 83735; 85025; 85610; 85730; 87086; 87088; 87186; 87635; 93005; 97162; 99285

== ENCOUNTER 2021-03-16 12:44 | Outpatient (REF) | payer MEDICAID, SELFPAY ==
--- NOTE | ~2021-03-16 | XR_ITS ---
EXAMINATION: XR HAND, RIGHT CLINICAL INFORMATION: Pain right fingers COMPARISON: X-ray 03/04/2021 TECHNIQUE: PA, lateral, and oblique views of the right hand. FINDINGS: The bones and soft tissues are normal. No fracture. Alignment is anatomic. Joint spaces are maintained. No erosions or soft tissue calcifications. XR/XR hand RT min 3V IMPRESSION: Normal right hand.
== END 2021-03-16 12:45 | disposition home or self-care (01) ==
LOC: HO.XRAY 12:44
PROVIDERS: PCP Family Medicine; Referring Provider Family Medicine; Visit Provider Emergency Medicine
DX: M79.644 Pain in right finger(s) (principal)
CPT/HCPCS: 73130

== ENCOUNTER → 2021-03-18 13:23 | Outpatient (BNVA) | payer MEDICAID, SELFPAY | PROVIDERS: PCP Family Medicine; Referring Provider Family Medicine; Visit Provider Physician Assistant | DX: E66.9 Obesity, unspecified (principal); Z68.33 Body mass index [BMI] 33.0-33.9, adult | CPT/HCPCS: 99202 ==

== ENCOUNTER → 2021-04-07 14:24 | Outpatient (BNVA) | payer MEDICAID, SELFPAY | PROVIDERS: PCP Family Medicine; Visit Provider Urology | DX: Z48.816 Encounter for surgical aftercare following surgery on the genitourinary system (principal); N39.0 Urinary tract infection, site not specified; B96.89 Other specified bacterial agents as the cause of diseases classified elsewhere; Z87.442 Personal history of urinary calculi | CPT/HCPCS: 52310; 99212 ==

== ENCOUNTER → 2021-07-30 09:57 | Outpatient (BNVA) | payer MEDICAID, SELFPAY | PROVIDERS: PCP Family Medicine; Visit Provider Urology ==

== ENCOUNTER → 2021-08-03 14:33 | Outpatient (BNVA) | payer MEDICAID, SELFPAY | PROVIDERS: PCP Family Medicine; Visit Provider Urology ==

== ENCOUNTER 2021-08-23 10:27 | Day surgery (SDC) | payer MEDICAID, SELFPAY ==
[2021-08-16 18:28] VITALS: BMI 32.9
--- NOTE | 2021-08-20 11:53 | P.CONAN_ITS ---
Documented by User: Kamala Cook NP 08/20/21 11:57 HPI - Anesthesia Eval Consult details Narrative: 50yo F for Left Cystoscopy, Ureteroroscopy, Retro, Laser,with stent placement Eliquis for h/o DVT/PE Suboxone daily *Multiple Med Allergies* PMFSH Active Problems Active Problems: All Active Problems (Updated 08/16/21 @ 18:28 by Shadia Lemon, RN) Pelvic pain in female (Acute) Abnormal Pap smear of cervix (Acute) Dysmenorrhea (Acute) Abnormal uterine bleeding (AUB) (Acute) Oligomenorrhea (Acute) Vulvar abscess (Acute) Perimenopause (Acute) Hot flashes (Acute) UTI (urinary tract infection), bacterial (Acute) Kidney stone (Acute) Lesion of bladder (Acute) Depression (Acute) IBS (irritable bowel syndrome) (Acute) Obesity (BMI 30-39.9) (Acute) Endometriosis (Acute) History of pulmonary embolus (PE) (Acute) History of DVT (deep vein thrombosis) (Acute) Past Medical History Medical History (Updated 08/16/21 @ 18:28 by Shadia Lemon, LUCIUS) Anxiety Asthma Back pain Chronic back pain DDD (degenerative disc disease) Depression Diabetes mellitus Elevated cholesterol Endometriosis Fibromyalgia GERD (gastroesophageal reflux disease) History of DVT (deep vein thrombosis) History of pulmonary embolus (PE) HTN (hypertension) IBS (irritable bowel syndrome) Kidney stone Lesion of bladder Mood disorder Multiple sclerosis Normal colonoscopy Obesity (BMI 30-39.9) Ovarian cyst Peripheral neuropathy PTSD (post-traumatic stress disorder) Suicide attempt Family History Family History Mother Rheumatoid arteritis COPD (chronic obstructive pulmonary disease) Father HTN (hypertension) Diabetes mellitus Surgical History Surgical History H/O neck surgery History of cystoscopy History of lithotripsy Hx of appendectomy Hx of cholecystectomy Hx of dilation and curettage Hx of tubal ligation S/P endometrial ablation Social History Social History Do you presently have visiting nurse or other home services: 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) Alcohol intake: current Alcohol intake frequency: holidays/special occasions only Patient Tobacco Use Status: Current everyday Tobacco user Tobacco use type: Cigarette Cigarettes Per Day: 4 Years Smoked: 30 Smoked in Last 30 Days: Yes Patient Interested in Nicotine Replacement: Yes Patient Given Instructions on How to Stop Smoking: Yes Date Education Initiated: 08/16/21 Second Hand Smoke Exposure: No Use of substances other than those prescribed or required for medical reasons: Yes Substance Use Type Other:: HX HEROIN ABUSE ON SUBOXONE NO RELAPSE 3 YEARS Substance Use Frequency: Weekly Are you DNR?: No Advance Directives: No Advance Directives Information Provided: No Advance Directives on File: No Recently lost weight without trying: No Nutrition Risks: No Nutritional Risk Patient : No Gender identity: Female Meds Allergies Allergy/AdvReac Type Severity Reaction Status Date / Time Iodinated Contrast Media Allergy Severe THROAT Verified 08/03/21 14:34 [IV CONTRAST] CLOSING lithium [LITHIUM] Allergy Intermediate AGGRESSION, Verified 08/03/21 14:34 stiffened up & throat closing (moderate to severe) fluoxetine [FLUOXETINE] Allergy Mild ITCHING, Verified 08/03/21 14:34 Suicidal risperidone [From RISPERDAL] Allergy Mild ITCHING Verified 08/03/21 14:34 asparagus [ASPARAGUS] Allergy Unknown unknown Verified 08/03/21 14:34 divalproex sodium Allergy Unknown UNKNOWN, Verified 08/03/21 14:34 [From DEPAKOTE] stiffened up, locked jaw lisinopril [LISINOPRIL] Allergy Unknown COUGH Verified 08/03/21 14:34 olanzapine Allergy Unknown can't Verified 08/03/21 14:34 recall if hives or increased pollen extracts [POLLEN] Allergy Unknown unknown Verified 08/03/21 14:34 tomato [TOMATO] Allergy Unknown UNKNOWN Verified 08/03/21 14:34 quetiapine [From SEROQUEL] AdvReac Intermediate OVERSEDATIO Verified 08/03/21 14:34 N BROCCOLI Allergy Unknown Unknown Uncoded 08/03/21 14:34 FUMARATE Allergy Unknown Unknown Uncoded 08/03/21 14:34 GREEN CHEUNG Allergy Unknown Unknown Uncoded 08/03/21 14:34 TOMATO Allergy Unknown Unknown Uncoded 08/03/21 14:34 Home Medications Medication Instructions Recorded Confirmed Last Taken Type acetaminophen 325 mg capsule 650 mg PO Q6H PRN 08/25/20 08/16/21 Unknown History albuterol sulfate 90 mcg/actuation 2 puff INHALATION Q4-6H PRN 08/25/20 08/16/21 Unknown History aerosol inhaler (ProAir HFA) apixaban 5 mg tablet (Eliquis) 5 mg PO BID 08/25/20 08/16/21 03/10/21 History aripiprazole 15 mg tablet (Abilify) 15 mg PO BEDTIME 08/25/20 08/16/21 03/09/21 History atorvastatin 40 mg tablet (Lipitor) 40 mg PO BEDTIME 08/25/20 08/16/21 03/09/21 History blood sugar diagnostic (FreeStyle #10 ea 08/25/20 03/18/21 Unknown History Lite Strips) buprenorphine 8 mg-naloxone 2 mg 1 film SUBLINGUAL BEDTIME 08/25/20 08/16/21 03/09/21 History sublingual film (Suboxone) cholecalciferol (vitamin D3) 25 25 mcg PO DAILY 08/25/20 08/16/21 03/10/21 History mcg (1,000 unit) capsule diphenhydramine HCl 25 mg capsule 25 mg PO Q8H PRN cap 08/25/20 08/16/21 Unknown History (Allergy (diphenhydramine)) docusate sodium 100 mg capsule 100 mg PO BID 08/25/20 08/16/21 03/10/21 History (Colace) doxepin 25 mg capsule 25 mg PO BEDTIME 08/25/20 08/16/21 03/09/21 History famotidine 40 mg tablet (Pepcid) 40 mg PO BEDTIME 08/25/20 08/16/21 03/09/21 History fluticasone propionate 110 1 puff INHALATION BID 08/25/20 08/16/21 03/10/21 History mcg/actuation HFA aerosol inhaler (Flovent HFA) insulin glargine 100 unit/mL (3 20 unit SUBCUT BEDTIME 08/25/20 08/16/21 03/09/21 History mL) subcutaneous pen (Lantus Solostar U-100 Insulin) lancets 28 gauge (FreeStyle #100 ea 08/25/20 03/18/21 Unknown History Lancets) lorazepam 0.5 mg tablet 0.5 mg PO DAILY PRN 08/25/20 08/16/21 Unknown History losartan 50 mg tablet 50 mg PO BEDTIME 12/08/16/21 03/09/21 History metformin 1,000 mg tablet 1,000 mg PO BID 08/25/20 08/16/21 03/10/21 History multivitamin 1 tab PO DAILY 08/25/20 08/16/21 03/10/21 History natalizumab 300 mg/15 mL 300 mg IV Q4W 08/25/20 08/16/21 01/29/21 History intravenous solution (Tysabri) nebulizers (AeroEclipse II #1 ea 08/25/20 03/18/21 Unknown History Nebulizer) nitroglycerin 0.4 mg sublingual 0.4 mg SUBLINGUAL Q5M PRN 08/25/20 08/16/21 Unknown History tablet (Nitrostat) pen needle, diabetic 32 gauge x #50 ea 08/25/20 03/18/21 Unknown History (Comfort EZ Pen [place]) prazosin 1 mg capsule 1 mg PO BID 08/25/20 08/16/21 03/10/21 History sennosides 8.6 mg capsule (senna) 17.2 mg PO BEDTIME cap 08/25/20 08/16/21 03/09/21 History trazodone 100 mg tablet 100 mg PO BEDTIME PRN 08/25/20 03/18/21 Unknown History buprenorphine 2 mg-naloxone 0.5 mg 1 film SUBLINGUAL BEDTIME 03/10/21 08/16/21 03/09/21 History sublingual film losartan 25 mg tablet 25 mg PO BEDTIME 03/10/21 08/16/21 03/09/21 History topiramate 100 mg tablet 100 mg PO BEDTIME 03/10/21 03/10/21 03/09/21 History acetaminophen 500 mg capsule 500 mg PO QID PRN 03/18/21 08/16/21 Unknown History Exam Exam Date and Time: August 20, 2021 1153 Height,Weight and Vital Signs: Height 5 ft 2 in Weight 81.647 kg Pertinent Lab Results Pertinent Lab Results: EKG 02/2021 Vent. Rate : 069 BPM ? ? Atrial Rate : 069 BPM ?? P-R Int : 146 ms? QRS Dur : 098 ms ? ? QT Int : 426 ms ? ? ? P-R-T Axes : -05 017 014 degrees ?? QTc Int : 456 ms ? Normal sinus rhythm Normal ECG When compared with ECG of 28-FEB-2020 17:30, No significant change was found Narrative Narrative: Laboratory Tests 03/10/21 03/10/21 15:35 15:35 WBC 11.4 H Hgb 12.1 Hct 37.0 Plt Count 272 Sodium 142 Potassium 3.6 Chloride 111 H Carbon Dioxide 22 BUN 13 Creatinine 0.77 Assessment and Plan Assessment Anesthesia Assessment: Chart Reviewed Documented by User: Pierre Tate 08/23/21 12:57 HPI - Anesthesia Eval Consult details Narrative: 50yo F for Left Cystoscopy, Ureteroroscopy, Retro, Laser,with stent placement Eliquis for h/o DVT/PE Suboxone daily *Multiple Med Allergies* h/o AL , drug induced . MS . in remission POC , 342 , possible infection . discussed with surgeon , benefit ourweighs the risk . will procced urgently and will cover with addtional antibiotics as per surgeon . [facility] Past Medical History Medical History (Updated 08/16/21 @ 18:28 by Shadia Lemon, LUCIUS) Anxiety Asthma Back pain Chronic back pain DDD (degenerative disc disease) Depression Diabetes mellitus Elevated cholesterol Endometriosis Fibromyalgia GERD (gastroesophageal reflux disease) History of DVT (deep vein thrombosis) History of pulmonary embolus (PE) HTN (hypertension) IBS (irritable bowel syndrome) Kidney stone Lesion of bladder Mood disorder Multiple sclerosis Normal colonoscopy Obesity (BMI 30-39.9) Ovarian cyst Peripheral neuropathy PTSD (post-traumatic stress disorder) Suicide attempt Family History Family History Mother Rheumatoid arteritis COPD (chronic obstructive pulmonary disease) Father HTN (hypertension) Diabetes mellitus Family history of problems with anesthesia: No Surgical History Surgical History H/O neck surgery History of cystoscopy History of lithotripsy Hx of appendectomy Hx of cholecystectomy Hx of dilation and curettage Hx of tubal ligation S/P endometrial ablation History of Problems with Anesthesia: No Social History Social History Do you presently have visiting nurse or other home services: 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) Alcohol intake: current Alcohol intake frequency: holidays/special occasions only Patient Tobacco Use Status: Current everyday Tobacco user Tobacco use type: Cigarette Cigarettes Per Day: 4 Years Smoked: 30 Smoked in Last 30 Days: Yes Patient Interested in Nicotine Replacement: Yes Patient Given Instructions on How to Stop Smoking: Yes Date Education Initiated: 08/16/21 Second Hand Smoke Exposure: No Use of substances other than those prescribed or required for medical reasons: Yes Substance Use Type Other:: HX HEROIN ABUSE ON SUBOXONE NO RELAPSE 3 YEARS Substance Use Frequency: Weekly Are you DNR?: No Advance Directives: No Advance Directives Information Provided: No Advance Directives on File: No Recently lost weight without trying: No Nutrition Risks: No Nutritional Risk Patient : No Gender identity: Female Meds Allergies Allergy/AdvReac Type Severity Reaction Status Date / Time Iodinated Contrast Media Allergy Severe THROAT Verified 08/03/21 14:34 [IV CONTRAST] CLOSING lithium [LITHIUM] Allergy Intermediate AGGRESSION, Verified 08/03/21 14:34 stiffened up & throat closing (moderate to severe) fluoxetine [FLUOXETINE] Allergy Mild ITCHING, Verified 08/03/21 14:34 Suicidal risperidone [From RISPERDAL] Allergy Mild ITCHING Verified 08/03/21 14:34 asparagus [ASPARAGUS] Allergy Unknown unknown Verified 08/03/21 14:34 divalproex sodium Allergy Unknown UNKNOWN, Verified 08/03/21 14:34 [From DEPAKOTE] stiffened up, locked jaw lisinopril [LISINOPRIL] Allergy Unknown COUGH Verified 08/03/21 14:34 olanzapine Allergy Unknown can't Verified 08/03/21 14:34 recall if hives or increased pollen extracts [POLLEN] Allergy Unknown unknown Verified 08/03/21 14:34 tomato [TOMATO] Allergy Unknown UNKNOWN Verified 08/03/21 14:34 quetiapine [From SEROQUEL] AdvReac Intermediate OVERSEDATIO Verified 08/03/21 14:34 N BROCCOLI Allergy Unknown Unknown Uncoded 08/03/21 14:34 FUMARATE Allergy Unknown Unknown Uncoded 08/03/21 14:34 GREEN CHEUNG Allergy Unknown Unknown Uncoded 08/03/21 14:34 TOMATO Allergy Unknown Unknown Uncoded 08/03/21 14:34 Home Medications Medication Instructions Recorded Confirmed Last Taken Type acetaminophen 325 mg capsule 650 mg PO Q6H PRN 08/25/20 08/16/21 Unknown History albuterol sulfate 90 mcg/actuation 2 puff INHALATION Q4-6H PRN 08/25/20 08/16/21 Unknown History aerosol inhaler (ProAir HFA) apixaban 5 mg tablet (Eliquis) 5 mg PO BID 08/25/20 08/16/21 03/10/21 History aripiprazole 15 mg tablet (Abilify) 15 mg PO BEDTIME 08/25/20 08/16/21 03/09/21 History atorvastatin 40 mg tablet (Lipitor) 40 mg PO BEDTIME 08/25/20 08/16/21 03/09/21 History blood sugar diagnostic (FreeStyle #10 ea 08/25/20 03/18/21 Unknown History Lite Strips) buprenorphine 8 mg-naloxone 2 mg 1 film SUBLINGUAL BEDTIME 08/25/20 08/16/21 03/09/21 History sublingual film (Suboxone) cholecalciferol (vitamin D3) 25 25 mcg PO DAILY 08/25/20 08/16/21 03/10/21 History mcg (1,000 unit) capsule diphenhydramine HCl 25 mg capsule 25 mg PO Q8H PRN cap 08/25/20 08/16/21 Unknown History (Allergy (diphenhydramine)) docusate sodium 100 mg capsule 100 mg PO BID 08/25/20 08/16/21 03/10/21 History (Colace) doxepin 25 mg capsule 25 mg PO BEDTIME 08/25/20 08/16/21 03/09/21 History famotidine 40 mg tablet (Pepcid) 40 mg PO BEDTIME 08/25/20 08/16/21 03/09/21 History fluticasone propionate 110 1 puff INHALATION BID 08/25/20 08/16/21 03/10/21 History mcg/actuation HFA aerosol inhaler (Flovent HFA) insulin glargine 100 unit/mL (3 20 unit SUBCUT BEDTIME 08/25/20 08/16/21 03/09/21 History mL) subcutaneous pen (Lantus Solostar U-100 Insulin) lancets 28 gauge (FreeStyle #100 ea 08/25/20 03/18/21 Unknown History Lancets) lorazepam 0.5 mg tablet 0.5 mg PO DAILY PRN 08/25/20 08/16/21 Unknown History losartan 50 mg tablet 50 mg PO BEDTIME 08/25/20 08/16/21 03/09/21 History metformin 1,000 mg tablet 1,000 mg PO BID 08/25/20 08/16/21 03/10/21 History multivitamin 1 tab PO DAILY 08/25/20 08/16/21 03/10/21 History natalizumab 300 mg/15 mL 300 mg IV Q4W 08/25/20 08/16/21 01/29/21 History intravenous solution (Tysabri) nebulizers (AeroEclipse II #1 ea 08/25/20 03/18/21 Unknown History Nebulizer) nitroglycerin 0.4 mg sublingual 0.4 mg SUBLINGUAL Q5M PRN 08/25/20 08/16/21 Unknown History tablet (Nitrostat) pen needle, diabetic 32 gauge x #50 ea 08/25/20 03/18/21 Unknown History (Comfort EZ Pen [place]) prazosin 1 mg capsule 1 mg PO BID 08/25/20 08/16/21 03/10/21 History sennosides 8.6 mg capsule (senna) 17.2 mg PO BEDTIME cap 08/25/20 08/16/21 03/09/21 History trazodone 100 mg tablet 100 mg PO BEDTIME PRN 08/25/20 03/18/21 Unknown History buprenorphine 2 mg-naloxone 0.5 mg 1 film SUBLINGUAL BEDTIME 03/10/21 08/16/21 03/09/21 History sublingual film losartan 25 mg tablet 25 mg PO BEDTIME 03/10/21 08/16/21 03/09/21 History topiramate 100 mg tablet 100 mg PO BEDTIME 03/10/21 03/10/21 03/09/21 History acetaminophen 500 mg capsule 500 mg PO QID PRN 03/18/21 08/16/21 Unknown History Exam Airway Mallampati Class: II Neck ROM: Limited Loose/Missing/Broken Teeth: Yes (Broken teeth . ) Assessment and Plan Final Anesthetic Review Family History of Problems with Anesthesia: No History of Problems with Anesthesia: No NPO: Yes ASA Class: III (Urgent ) Final Preanesthetic Review: Meds/Cachorrogs Chart Reviewed Patient Risk: High Procedure Risk: High Anesthetic Plan Anesthetic Plan: GA Disposition: Standard PACU
[2021-08-23] VITALS (10 sets, daily range): BP systolic 105–157; BP diastolic 75–92; PULSE 77–92; RESP 14–18; TEMP 36.7–36.8; O2SAT 96–100; BMI 32.9
[2021-08-23 11:36] LABS: Glucose, Whole Blood 342 mg/dL (60-115)
[2021-08-23] MEDS: Albuterol/Iprat 2.5/0.5MG 3 ML AMPUL.NEB INHALE (12:07)
[2021-08-23 12:15] LABS: Appearance Urine HAZY; Color Urine YELLOW; Glucose Urine UA >=1000 MG/DL (NEG); Leukocyte Esterase Urine NEG (NEG); Nitrite Urine NEG (NEG); Specific Gravity - Urine 1.025 (1.005-1.025); Urine Blood NEG (NEG); Urine Ketones NEG (NEG); Urine Protein NEG (NEG-TRACE)
--- NOTE | 2021-08-23 12:27 | MHC.SHP ---
Pre-Procedural Eval Section A Date of Service: 08/23/21 The patient is an INPATIENT: No Changes since office visit: No Cold of Flu in the past 2 weeks, No New Medical Problems, No Changes in Medication and No Patient answered all questions The History & Physical has been completed within 30 days and I have reviewed it.: Yes Section B Chief Complaint: Calculus of Kidney Allergies: Allergies Allergy/AdvReac Type Severity Reaction Status Date / Time Iodinated Contrast Media Allergy Severe THROAT Verified 08/03/21 14:34 [IV CONTRAST] CLOSING lithium [LITHIUM] Allergy Intermediate AGGRESSION, Verified 08/03/21 14:34 stiffened up & throat closing (moderate to severe) fluoxetine [FLUOXETINE] Allergy Mild ITCHING, Verified 08/03/21 14:34 Suicidal risperidone [From RISPERDAL] Allergy Mild ITCHING Verified 08/03/21 14:34 asparagus [ASPARAGUS] Allergy Unknown unknown Verified 08/03/21 14:34 divalproex sodium Allergy Unknown UNKNOWN, Verified 08/03/21 14:34 [From DEPAKOTE] stiffened up, locked jaw lisinopril [LISINOPRIL] Allergy Unknown COUGH Verified 08/03/21 14:34 olanzapine Allergy Unknown can't Verified 08/03/21 14:34 recall if hives or increased pollen extracts [POLLEN] Allergy Unknown unknown Verified 08/03/21 14:34 tomato [TOMATO] Allergy Unknown UNKNOWN Verified 08/03/21 14:34 quetiapine [From SEROQUEL] AdvReac Intermediate OVERSEDATIO Verified 08/03/21 14:34 N BROCCOLI Allergy Unknown Unknown Uncoded 08/03/21 14:34 FUMARATE Allergy Unknown Unknown Uncoded 08/03/21 14:34 GREEN CHEUNG Allergy Unknown Unknown Uncoded 08/03/21 14:34 TOMATO Allergy Unknown Unknown Uncoded 08/03/21 14:34 Plan Diagnosis/Plan: Unchanged (Cystoscopy, left retrograde, left ureteroscopy laser lithotripsy stent placement) I have reviewed the history and physical and performed a pertinent physical examination on my patient. No changes have occurred unless specified. found to have high glucose on presentation to preop area. UA performed which showed no leukocytes or nitrites in urine. She does have disordered glucose. Moving ahead with procedure and secondary coverage with gentamicin.
[2021-08-23] MEDS: Acetaminophen 325 MG TABLET 650 MG PO (12:31)
[2021-08-23] MEDS: Lactated Ringers 1,000 ML 100 ML IVCONT (12:31)
[2021-08-23] MEDS: levoFLOXacin 500 MG TABLET PO (12:31)
[2021-08-23 13:03] LABS: Bacteria Urine 2+ /LPF; Squamous Epithelial Cell Urine 4+ /LPF
[2021-08-23 13:21] LABS: Glucose, Whole Blood 303 mg/dL (60-115)
--- NOTE | 2021-08-23 13:21 | P.OP_ITS ---
Operative Note Operative Note Date of Service: 08/23/21 Narrative: PreOperative Diagnosis: Left renal stones Post Operative Diagnosis: Left renal stones Procedure: - cystoscopy, left retrograde - left ureteroscopy Surgeon: Dr Shashi Duran Anesthesia: General Indications for procedure: prior evaluation in February with ultrasound showing 1 cm and 7 mm left renal stone. Has had persistent intermittent pain. Would like this addressed. Based on having 2 stones on prior imaging recommendation for ureteroscopy with laser lithotripsy. Procedure: After informed consent was verified patient was brought to the operating placed in supine position. Anesthesia was administered per protocol. Patient was placed in modified dorsal lithotomy position and prepped and draped in a sterile fashion. Safety pause time-out and side of surgery confirmed. Antibiotics confirmed. Twenty-two [place] cystoscope inserted per urethra. Bladder normal in its entirety with normal situated ureteric orifice. Left ureteric orifice cannulated retrograde examination performed. No filling defects seen. Sensor guidewire placed to the level renal pelvis. Cystoscope removed. Ureteric access sheath placed over the wire. Inner cannula removed. Flexible ureteral scope placed. Renal pelvis examined its entirety. Fragments and debris of stone seen. No large stone seen. All renal calices examined. Based on minimal amount of manipulation performed decision was made not to leave stent. The flexible ureteral scope was removed. The access sheath was removed. The bladder was drained. She tolerated procedure well was extubated in operating room transferred in stable condition to the recovery area Pathology: [] Drains: []
[2021-08-23] MEDS: ondansetron HCL 4 MG/2 ML VIAL IVPUSH (13:33)
[2021-08-23] MEDS: Phenazopyridine HCL 100 MG TABLET PO (13:33)
[2021-08-23] MEDS: fentaNYL citrate/PF 100 MCG/2 ML VIAL 25 MCG IVPUSH (13:34)
== END 2021-08-23 14:54 | disposition home or self-care (01) ==
PROVIDERS: PCP Family Medicine; Visit Provider Urology
PROC: (CPT 52351; principal; 2021-08-23 12:10)
DX: N20.0 Calculus of kidney (principal); R39.15 Urgency of urination; G35 Multiple sclerosis; Z87.442 Personal history of urinary calculi; J45.909 Unspecified asthma, uncomplicated; I10 Essential (primary) hypertension; E11.42 Type 2 diabetes mellitus with diabetic polyneuropathy; F43.10 Post-traumatic stress disorder, unspecified; Z86.718 Personal history of other venous thrombosis and embolism; Z86.711 Personal history of pulmonary embolism; Z79.01 Long term (current) use of anticoagulants; Z79.899 Other long term (current) drug therapy; Z79.4 Long term (current) use of insulin; Z79.51 Long term (current) use of inhaled steroids; Z91.010 Allergy to peanuts; Z88.8 Allergy status to other drugs, medicaments and biological substances; F17.210 Nicotine dependence, cigarettes, uncomplicated; F11.20 Opioid dependence, uncomplicated
CPT/HCPCS: 52351; 81001; 82947; 94640; C1758; C1769; J1580; J2250; J2405; J3010; Q9967

== ENCOUNTER 2022-03-17 14:43 | Outpatient (REF) | payer MEDICAID, SELFPAY ==
--- NOTE | ~2022-03-17 | XR_ITS ---
EXAMINATION: XR CHEST CLINICAL INFORMATION: Asthma COMPARISON: Previous chest x-ray most recent February 2019 TECHNIQUE: 2 views of the chest were obtained. FINDINGS: The cardiac and mediastinal contours are stable. The lungs are clear. There is no pleural effusion or pneumothorax. There are mild degenerative changes of the thoracic spine. There are postsurgical changes to the cervical spine. XR/XR chest 2V IMPRESSION: No evidence for acute disease in the chest.
== END 2022-03-17 14:44 | disposition home or self-care (01) ==
LOC: HO.XRAY 14:43
PROVIDERS: Absent Provider Family Medicine; PCP Family Medicine; Visit Provider Family Medicine
DX: J45.31 Mild persistent asthma with (acute) exacerbation (principal)
CPT/HCPCS: 71046

== ENCOUNTER 2022-06-07 16:25 | Emergency (ER) | payer MEDICAID, SELFPAY ==
[2022-06-07 17:14] VITALS: BP 116/82; BP 172/94; PULSE 73; PULSE 85; RESP 18; TEMP 36.6; O2SAT 98; BMI 34.4
--- NOTE | 2022-06-07 17:23 | ED_ITS ---
HPI - Psych General Chief Complaint: Psychiatric Symptoms Stated Complaint: CRISIS Time Seen by Provider: 06/07/22 16:37 Source: patient and EMS Mode of arrival: EMS Limitations: no limitations History of Present Illness HPI Narrative: This is a 51-year-old pleasant female who came in by ambulance from walk-in [facility] for further evaluation of depression and anxiety and deconditioning a life. Patient had a history of mental hospitalization, depression, anxiety, hypertension, diabetes, recently diagnosed with syphilis patient received 2 penicillin injection as reported by the patient, patient feeling depress, h opeless, helpless. Decline SI or HI, patient has very poor compliance with her medications. Patient stated she feel depressed because her son became homeless, and her recent diagnosis with syphilis. Also mentioned that she is picking her skin because the anxiety and depression. No headache, no CP, no SOB, no abdominal pain. Related Data Home Medications Medication Instructions Recorded Confirmed apixaban 5 mg tablet (Eliquis) 5 mg PO BID 08/25/20 06/07/22 blood sugar diagnostic (FreeStyle #10 ea 08/25/20 03/18/21 Lite Strips) lancets 28 gauge (FreeStyle #100 ea 08/25/20 03/18/21 Lancets) nebulizers (AeroEclipse II #1 ea 08/25/20 03/18/21 Nebulizer) pen needle, diabetic 32 gauge x #50 ea 08/25/20 03/18/21/ (Comfort EZ Pen [place]) aripiprazole 20 mg tablet 1 tab PO DAILY 06/07/22 06/07/22 atorvastatin 40 mg tablet 1 tab PO DAILY 06/07/22 06/07/22 buprenorphine 8 mg-naloxone 2 mg 1 strip sublingual DAILY 06/07/22 06/07/22 sublingual film (Suboxone) cholecalciferol (vitamin D3) 25 1 cap PO DAILY 06/07/22 06/07/22 mcg (1,000 unit) capsule (Vitamin D3) doxepin 10 mg capsule 1 cap PO BEDTIME 06/07/22 06/07/22 dulaglutide 1.5 mg/0.5 mL 1.5 mg subcut QWEEK 06/07/22 06/07/22 subcutaneous pen injector (Trulicity) fluticasone propionate 220 1 puff inhalation BID 06/07/22 06/07/22 mcg/actuation HFA aerosol inhaler (Flovent HFA) fluticasone propionate 50 1 spray intranasal DAILY 06/07/22 06/07/22 mcg/actuation nasal spray,suspension hydralazine 25 mg tablet 1.5 tab PO BID 06/07/22 06/07/22 insulin glargine 100 unit/mL (3 28 unit subcut QAM 06/07/22 06/07/22 mL) subcutaneous pen (Lantus Solostar U-100 Insulin) losartan 100 mg tablet 1 tab PO DAILY 06/07/22 06/07/22 prazosin 1 mg capsule 1 cap PO BID 06/07/22 06/07/22 prazosin 2 mg capsule 1 cap PO BID 06/07/22 06/07/22 topiramate 25 mg tablet 1 tab PO BID 06/07/22 06/07/22 trazodone 100 mg tablet 1 tab PO BEDTIME PRN Insomnia 06/07/22 06/07/22 Allergies Allergy/AdvReac Type Severity Reaction Status Date / Time Iodinated Contrast Media Allergy Severe THROAT Verified 08/03/21 14:34 [IV CONTRAST] CLOSING lithium [LITHIUM] Allergy Intermediate AGGRESSION, Verified 08/03/21 14:34 stiffened up & throat closing (moderate to severe) fluoxetine [FLUOXETINE] Allergy Mild ITCHING, Verified 08/03/21 14:34 Suicidal risperidone [From RISPERDAL] Allergy Mild ITCHING Verified 08/03/21 14:34 asparagus [ASPARAGUS] Allergy Unknown unknown Verified 08/03/21 14:34 divalproex sodium Allergy Unknown UNKNOWN, Verified 08/03/21 14:34 [From DEPAKOTE] stiffened up, locked jaw lisinopril [LISINOPRIL] Allergy Unknown COUGH Verified 08/03/21 14:34 olanzapine Allergy Unknown can't Verified 08/03/21 14:34 recall if hives or increased pollen extracts [POLLEN] Allergy Unknown unknown Verified 08/03/21 14:34 tomato [TOMATO] Allergy Unknown UNKNOWN Verified 08/03/21 14:34 quetiapine [From SEROQUEL] AdvReac Intermediate OVERSEDATIO Verified 08/03/21 14:34 N BROCCOLI Allergy Unknown Unknown Uncoded 08/03/21 14:34 FUMARATE Allergy Unknown Unknown Uncoded 08/03/21 14:34 GREEN CHEUNG Allergy Unknown Unknown Uncoded 08/03/21 14:34 TOMATO Allergy Unknown Unknown Uncoded 08/03/21 14:34 Review of Systems Review of Systems: All other systems are reviewed and are negative Constitutional: Reports as per HPI and Reports no additional constitutional complaints Eyes: Reports as per HPI and Reports no additional eye complaints Reports system reviewed and no additional complaints, except as documented Cardiovascular: Reports as per HPI and Reports no additional cardiovascular complaints Respiratory: Reports as per HPI and Reports no additional respiratory complaints Gastrointestinal: Reports as per HPI and Reports no additional gastrointestinal complaints Genitourinary: Reports no additional female genitourinary complaints Musculoskeletal: Reports no additional musculoskeletal complaints Skin/Breast: Reports system reviewed and no additional complaints, except as docu Psychiatric: Reports no additional psychiatric complaints Endocrine: Reports no additional endocrine complaints Hematologic/Lymphatic: Reports no additional hematologic/lymphatic complaints Allergic/Immunologic: Reports no additional allergic/immunologic complaints Reports system reviewed and no additional complaints, except as documented and Reports Abnormal speech present PMFSH Past Medical History Medical History Anxiety Asthma Back pain Chronic back pain DDD (degenerative disc disease) Depression Diabetes mellitus Elevated cholesterol Endometriosis Fibromyalgia GERD (gastroesophageal reflux disease) History of DVT (deep vein thrombosis) History of pulmonary embolus (PE) HTN (hypertension) IBS (irritable bowel syndrome) Kidney stone Lesion of bladder Mood disorder Multiple sclerosis Normal colonoscopy Obesity (BMI 30-39.9) Ovarian cyst Peripheral neuropathy PTSD (post-traumatic stress disorder) Suicide attempt Surgical History H/O neck surgery History of cystoscopy History of lithotripsy Hx of appendectomy Hx of cholecystectomy Hx of dilation and curettage Hx of tubal ligation S/P endometrial ablation Family History Family History Mother Rheumatoid arteritis COPD (chronic obstructive pulmonary disease) Father HTN (hypertension) Diabetes mellitus Social History Social History Do you presently have visiting nurse or other home services: 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) Alcohol intake: current Alcohol intake frequency: holidays/special occasions only Patient Tobacco Use Status: Current everyday Tobacco user Tobacco use type: Cigarette Cigarettes Per Day: 4 Years Smoked: 30 Second Hand Smoke Exposure: No Advance Directives: No Advance Directives Information Provided: Yes Healthcare Proxy: No Guardian: No Gender identity: Female Physical Exam Vital Signs: Vital Signs: Last Vital Signs Temp 97.5 F 06/07/22 23:08 Pulse 66 06/07/22 23:08 Resp 18 06/07/22 23:08 BP 155/78 H 06/07/22 23:08 Pulse Ox 100 06/07/22 23:08 O2 Del Method 06/07/22 23:08 BMI result Body Mass Index 34.4 Vital signs have been reviewed as appeared to be correct. Blood pressure normal. Heart rate normal. Respiration rate normal. Temperature normal. Oxygen saturation normal. Appearance: Alert. Oriented X3. No acute distress. Head: Normal external exam. Normocephalic. Atraumatic. No Banks signs noted. No raccoon eyes noted Eyes: PERRLA. EOMI. Conjunctiva and sclera normal. Eyelids normal. ENT: TM's Normal. Pharynx normal. Uvula midline. Moist mucous membranes. No trismus noted. No drooling noted. No muffled voice noted. Neck: Normal inspection. Neck supple. FROM. No adenopathy. Thyroid Normal. No meningeal signs. No neck mass noted. CVS: Normal heart rate and rhythm. Heart sound normal. No murmurs noted. Pulses normal throughout. Respiratory: No respiratory distress. Painless inspiration. Breath sounds normal. No wheezes/rales/rhonchi noted. Chest nontender. No accessory muscle usage noted or decreased air movement noted. Abdomen: Soft and nontender. Bowel sounds normal in all 4 quadrants. No distention noted. No organomegaly noted. No visible injury noted. Back: No CVA tenderness. Full range of motion noted. Skin: Skin warm and dry. Normal skin color. Normal skin turgor. No rashes/lesions/lacerations noted. Extremities: No lower extremity edema. Extremities exhibit normal range of motion. Extremities nontender. Neuro: Oriented X 3. Cranial nerve exam: II-XII are grossly intact No motor deficit. No sensory deficit. Reflexes normal. Patient Orientation: Person, Place, Time and Situation, decent hygiene and grooming. Fair eye contact, attentive, no tics or tremors. Level of Consciousness: Awake, Appropriate and Alert Patient Behavior: Appropriate, Guarded, Cooperative and Anxious Mood Description: Constricted, Blunted and Apprehensive Affect Description: Constricted, Blunted and Apprehensive Patient Cognition Impaired: No Ability to Follow Directions: Excellent Speech Pattern: Clear, Appropriate and Spontaneous Speech, nonpressured, spontaneous with regular rate and rhythm, normal volume and prosody. No dysarthria. Memory Description: Intact, Immediate Intact and Short Term Intact Hallucinations: None Delusions: Not Present Thought Process: Intact Thought Content: positive for Intact, positive for Logical, denies Suicidal Idea tion and denies Homicidal Ideation. Depressive Symptoms: Not present. Judgement and Insight: Limited but adequate. Course Course Course Narrative: 51-year-old female not compliant with her medication because severe depression and anxiety patient will be placed on physician observation for [facility] in evaluation and patient's disposition. Reevaluation(s) Reevaluation #1: Physician observation started at 17 30 . Patient placed in physician observation because the patient needed more time for medication to work and to see [facility] for evaluation and the need for placement patient's vital sign were stable, patient is alert and oriented , neuro exam unchanged, unremarkable rest of physical exam. Time: 17:30 Reevaluation #2: Hyperglycemia without DKA due to noncompliance with her medication, patient was offered inpatient admission but she would like to go home patient is not suicidal or homicidal. Patient had IV hydration in the ED and required multiple doses of insulin, patient also received Suboxone in the ED has not had any for a week. Patient will stay in the ED overnight and will be re-evaluated by N in in the morning. Time: 00:11 MDM - Psych Lab Data Result diagrams: 06/07/22 18:10 06/07/22 18:10 Labs: Lab Results 06/07/22 06/07/22 06/07/22 Range/Units 17:51 18:10 18:10 WBC 8.2 (4.8-10.8) X10*3/uL RBC 5.28 (4.20-5.50) X10*6/uL Hgb 15.2 (12.0-16.0) g/dl Hct 43.5 (37.0-47.0) % MCV 82.4 (80.0-98.0) fL MCH 28.8 (27.0-33.0) pg MCHC 34.9 (31.0-35.0) g/dl RDW 12.5 (11.0-16.0) % Plt Count 229 (160-400) X10*3/uL MPV 10.7 (9.4-12.3) fL Immature Gran % (Auto) 0.9 H (0.0-0.4) % Neut % (Auto) 74.7 H (45-73) % Lymph % (Auto) 17.9 L (20-40) % [place] % (Auto) 4.0 (2-11) % Eos % (Auto) 2.1 (0-4) % Baso % (Auto) 0.4 (0-2) % Lymph # (Auto) 1.5 (1.2-4.9) X10*3/uL [place] # (Auto) 0.3 (0.1-1.2) X10*3/uL Eos # (Auto) 0.2 (0.0-0.4) X10*3/uL Baso # (Auto) 0.0 (0.0-0.2) X10*3/uL Abs Immat Gran (auto) 0.07 H (0.00-0.03) X10*3/uL Absolute Neuts (auto) 6.1 (2.0-8.3) x10*3/uL Absolute Nucleated RBC 0.000 (0.0-0.012) X10*3/uL Nucleated RBC % (auto) 0.0 (0.0-0.2) /100WBC Sodium 135 (135-145) mmol/L Potassium 3.5 (3.3-5.1) mmol/L Chloride 96 (96-108) mmol/L Carbon Dioxide 23 (22-29) mmol/L Anion Gap 20 (12-20) BUN 19 H (9-16) mg/dL Creatinine 1.13 (0.5-1.4) mg/dL Estim Creat Clear Calc 60.9 Estimated GFR 51 POC Glucose (60-115) mg/dL Random Glucose 575 H* D (60-115) mg/dL Calcium 10.0 D (8.4-10.2) mg/dL Total Bilirubin 0.4 (0.0-1.0) mg/dL Direct Bilirubin 0.2 (0.0-0.5) mg/dL AST 28 (5-31) U/L ALT 71 H (0-31) U/L Alkaline Phosphatase 166 H D (39-117) U/L Total Protein 6.6 (6.5-8.0) g/dL Albumin 3.8 (3.5-5.0) g/dL Lipase 21 (8-78) U/L TSH 0.49 (0.32-4.0) uIU/mL Urine Color Urine Appearance Urine pH (5.0-9.0) Ur Specific [place] (1.005-1.025) Urine Protein (Neg-Trace) mg/dL Urine Glucose (UA) (Negative) mg/dL Urine Ketones (Negative) mg/dL Urine Blood (Negative) Urine Nitrite (Negative) Ur Leukocyte Esterase (Negative) Urine RBC (0-2) /HPF Urine WBC (0-5) /HPF Ur Squamous Epith Cells (0-2) /HPF Urine Bacteria (None Seen) Hyaline Casts (0-2) /LPF Urine Test (NEGATIVE) Urine Opiates Screen (Not Detect) Urine Fentanyl Screen (Not Detect) Ur Barbiturates Screen (Not Detect) Ur Phencyclidine Scrn (Not Detect) Ur Amphetamines Screen (Not Detect) U Benzodiazepines Scrn (Not Detect) Urine Cocaine Screen (Not Detect) U Marijuana (THC) Screen (Not Detect) COVID-19 (JARRETT) Negative (Negative) COVID-19 Clin Com See Note 06/07/22 06/07/22 06/07/22 Range/Units 19:55 20:45 20:45 WBC (4.8-10.8) X10*3/uL RBC (4.20-5.50) X10*6/uL Hgb (12.0-16.0) g/dl Hct (37.0-47.0) % MCV (80.0-98.0) fL MCH (27.0-33.0) pg MCHC (31.0-35.0) g/dl RDW (11.0-16.0) % Plt Count (160-400) X10*3/uL MPV (9.4-12.3) fL Immature Gran % (Auto) (0.0-0.4) % Neut % (Auto) (45-73) % Lymph % (Auto) (20-40) % [place] % (Auto) (2-11) % Eos % (Auto) (0-4) % Baso % (Auto) (0-2) % Lymph # (Auto) (1.2-4.9) X10*3/uL [place] # (Auto) (0.1-1.2) X10*3/uL Eos # (Auto) (0.0-0.4) X10*3/uL Baso # (Auto) (0.0-0.2) X10*3/uL Abs Immat Gran (auto) (0.00-0.03) X10*3/uL Absolute Neuts (auto) (2.0-8.3) x10*3/uL Absolute Nucleated RBC (0.0-0.012) X10*3/uL Nucleated RBC % (auto) (0.0-0.2) /100WBC Sodium (135-145) mmol/L Potassium (3.3-5.1) mmol/L Chloride (96-108) mmol/L Carbon Dioxide (22-29) mmol/L Anion Gap (12-20) BUN (9-16) mg/dL Creatinine (0.5-1.4) mg/dL Estim Creat Clear Calc Estimated GFR POC Glucose 510 H* (60-115) mg/dL Random Glucose (60-115) mg/dL Calcium (8.4-10.2) mg/dL Total Bilirubin (0.0-1.0) mg/dL Direct Bilirubin (0.0-0.5) mg/dL AST (5-31) U/L ALT (0-31) U/L Alkaline Phosphatase (39-117) U/L Total Protein (6.5-8.0) g/dL Albumin (3.5-5.0) g/dL Lipase (8-78) U/L TSH (0.32-4.0) uIU/mL Urine Color Yellow Urine Appearance Clear Urine pH 5.5 (5.0-9.0) Ur Specific [place] >= 1.030 H (1.005-1.025) Urine Protein Negative (Neg-Trace) mg/dL Urine Glucose (UA) >=1000 H (Negative) mg/dL Urine Ketones Negative (Negative) mg/dL Urine Blood Negative (Negative) Urine Nitrite Negative (Negative) Ur Leukocyte Esterase Negative (Negative) Urine RBC 0-2 (0-2) /HPF Urine WBC 0-5 (0-5) /HPF Ur Squamous Epith Cells 0-2 (0-2) /HPF Urine Bacteria None Seen (None Seen) Hyaline Casts 0-2 (0-2) /LPF Urine Test NEGATIVE (NEGATIVE) Urine Opiates Screen (Not Detect) Urine Fentanyl Screen (Not Detect) Ur Barbiturates Screen (Not Detect) Ur Phencyclidine Scrn (Not Detect) Ur Amphetamines Screen (Not Detect) U Benzodiazepines Scrn (Not Detect) Urine Cocaine Screen (Not Detect) U Marijuana (THC) Screen (Not Detect) COVID-19 (JARRETT) (Negative) COVID-19 Clin Com 06/07/22 06/07/22 06/07/22 Range/Units 20:45 22:39 23:30 WBC (4.8-10.8) X10*3/uL RBC (4.20-5.50) X10*6/uL Hgb (12.0-16.0) g/dl Hct (37.0-47.0) % MCV (80.0-98.0) fL MCH (27.0-33.0) pg MCHC (31.0-35.0) g/dl RDW (11.0-16.0) % Plt Count (160-400) X10*3/uL MPV (9.4-12.3) fL Immature Gran % (Auto) (0.0-0.4) % Neut % (Auto) (45-73) % Lymph % (Auto) (20-40) % [place] % (Auto) (2-11) % Eos % (Auto) (0-4) % Baso % (Auto) (0-2) % Lymph # (Auto) (1.2-4.9) X10*3/uL [place] # (Auto) (0.1-1.2) X10*3/uL Eos # (Auto) (0.0-0.4) X10*3/uL Baso # (Auto) (0.0-0.2) X10*3/uL Abs Immat Gran (auto) (0.00-0.03) X10*3/uL Absolute Neuts (auto) (2.0-8.3) x10*3/uL Absolute Nucleated RBC (0.0-0.012) X10*3/uL Nucleated RBC % (auto) (0.0-0.2) /100WBC Sodium (135-145) mmol/L Potassium (3.3-5.1) mmol/L Chloride (96-108) mmol/L Carbon Dioxide (22-29) mmol/L Anion Gap (12-20) BUN (9-16) mg/dL Creatinine (0.5-1.4) mg/dL Estim Creat Clear Calc Estimated GFR POC Glucose 469 H* 300 H (60-115) mg/dL Random Glucose (60-115) mg/dL Calcium (8.4-10.2) mg/dL Total Bilirubin (0.0-1.0) mg/dL Direct Bilirubin (0.0-0.5) mg/dL AST (5-31) U/L ALT (0-31) U/L Alkaline Phosphatase (39-117) U/L Total Protein (6.5-8.0) g/dL Albumin (3.5-5.0) g/dL Lipase (8-78) U/L TSH (0.32-4.0) uIU/mL Urine Color Urine Appearance Urine pH (5.0-9.0) Ur Specific [place] (1.005-1.025) Urine Protein (Neg-Trace) mg/dL Urine Glucose (UA) (Negative) mg/dL Urine Ketones (Negative) mg/dL Urine Blood (Negative) Urine Nitrite (Negative) Ur Leukocyte Esterase (Negative) Urine RBC (0-2) /HPF Urine WBC (0-5) /HPF Ur Squamous Epith Cells (0-2) /HPF Urine Bacteria (None Seen) Hyaline Casts (0-2) /LPF Urine Test (NEGATIVE) Urine Opiates Screen Not Detected (Not Detect) Urine Fentanyl Screen Not Detected (Not Detect) Ur Barbiturates Screen Not Detected (Not Detect) Ur Phencyclidine Scrn Not Detected (Not Detect) Ur Amphetamines Screen Not Detected (Not Detect) U Benzodiazepines Scrn Not Detected (Not Detect) Urine Cocaine Screen Not Detected (Not Detect) U Marijuana (THC) Screen Not Detected (Not Detect) COVID-19 (JARRETT) (Negative) COVID-19 Clin Com Discharge Plan Discharge Clinical Impression: Depression, Anxiety, Hyperglycemia due to diabetes mellitus Patient Disposition: Still a Patient Prescriptions: No Action fluticasone propionate [Flovent HFA] 220 mcg/actuation HFA aerosol inhaler 1 puff inhalation BID buprenorphine-naloxone [Suboxone] 8-2 mg film 1 strip sublingual DAILY hydralazine 25 mg tablet 1.5 tab PO BID insulin glargine [Lantus Solostar U-100 Insulin] 100 unit/mL (3 mL) insulin pen 28 unit subcut QAM atorvastatin 40 mg tablet 1 tab PO DAILY prazosin 1 mg capsule 1 cap PO BID topiramate 25 mg tablet 1 tab PO BID doxepin 10 mg capsule 1 cap PO BEDTIME trazodone 100 mg tablet 1 tab PO BEDTIME PRN (Reason: Insomnia) losartan 100 mg tablet 1 tab PO DAILY fluticasone propionate 50 mcg/actuation spray,suspension 1 spray intranasal DAILY prazosin 2 mg capsule 1 cap PO BID cholecalciferol (vitamin D3) [Vitamin D3] 25 mcg (1,000 unit) capsule 1 cap PO DAILY aripiprazole 20 mg tablet 1 tab PO DAILY Trulicity 1.5 mg/0.5 mL pen injector 1.5 mg subcut QWEEK (DME) AeroEclipse II Nebulizer Misc See Rx Instructions .ROUTE .MEDSUPPLY Qty: 1 Rx Instructions: As directed (DME) lancets [FreeStyle Lancets] 28 gauge misc See Rx Instructions .ROUTE .MEDSUPPLY Qty: 100 Rx Instructions: As directed (DME) FreeStyle Lite Strips Strip See Rx Instructions .ROUTE .MEDSUPPLY Qty: 10 Rx Instructions: As directed (DME) pen needle, diabetic [Comfort EZ Pen [place]] 32 gauge x 5/32 needle See Rx Instructions .ROUTE .MEDSUPPLY Qty: 50 Rx Instructions: As directed Eliquis 5 mg tablet 5 mg PO BID
[2022-06-07] MEDS: Insulin Glargine,Hum.rec.anlog 100 UNIT/ML 10 ML VIAL 25 UNIT SUBCUT (17:36)
[2022-06-07] MEDS: Insulin Lispro 100 UNIT/ML 3 ML VIAL SUBCUT (17:37)
[2022-06-07 18:15] LABS: MANUAL DIFF FLAG NO
[2022-06-07 18:18] LABS: COVID-19 Test Negative (Negative); IDNOW Serial# 08D9AD1C
[2022-06-07 18:34] LABS: Basophils Percent Auto 0.4 % (0-2); Eosinophils Absolute Auto 0.2 X10*3/uL (0.0-0.4); Eosinophils Percent Auto 2.1 % (0-4); Hematocrit 43.5 % (37.0-47.0); Hemoglobin 15.2 g/dl (12.0-16.0); Imm Gran Abs Auto 0.07 X10*3/uL (0.00-0.03); Imm Gran Pct Auto 0.9 % (0.0-0.4); Lymphocytes Absolute Auto 1.5 X10*3/uL (1.2-4.9); Lymphocytes Percent Auto 17.9 % (20-40); Mean Corpuscular HGB Conc 34.9 g/dl (31.0-35.0); Mean Corpuscular Hemoglobin 28.8 pg (27.0-33.0); Mean Corpuscular Volume 82.4 fL (80.0-98.0); Mean Platelet Volume 10.7 fL (9.4-12.3); Monocytes Absolute Auto 0.3 X10*3/uL (0.1-1.2); Neutrophils Absolute Auto 6.1 x10*3/uL (2.0-8.3); Neutrophils Percent Auto 74.7 % (45-73); Platelet Count 229 X10*3/uL (160-400); Red Blood Count 5.28 X10*6/uL (4.20-5.50); Red Cell Distribution Width 12.5 % (11.0-16.0); White Blood Count 8.2 X10*3/uL (4.8-10.8)
[2022-06-07 18:37] LABS: Alanine Aminotransferase 71 U/L (0-31); Albumin Level 3.8 g/dL (3.5-5.0); Alkaline Phosphatase 166 U/L (39-117); Anion Gap 20 (12-20); Aspartate Amino Transferase 28 U/L (5-31); Bilirubin Direct 0.2 mg/dL (0.0-0.5); Bilirubin Total 0.4 mg/dL (0.0-1.0); Blood Urea Nitrogen 19 mg/dL (9-16); Carbon Dioxide 23 mmol/L (22-29); Chloride 96 mmol/L (96-108); Creatinine Clr Calc Pharmacy 60.9; Estimated Glomerular Filt Rate 51; Glucose Random 575 mg/dL (60-115); Lipase 21 U/L (8-78); Potassium 3.5 mmol/L (3.3-5.1); Sodium 135 mmol/L (135-145); Total Protein 6.6 g/dL (6.5-8.0)
--- NOTE | 2022-06-07 18:48 | PC.NURSE ---
notified buddyder regarding ^glucose of 575. notified patient she would need to be moved out
[2022-06-07 18:52] LABS: Thyroid Stimulating Hormone 0.49 uIU/mL (0.32-4.0)
[2022-06-07 19:58] LABS: Glucose, Whole Blood 510 mg/dL (60-115)
--- NOTE | 2022-06-07 20:27 | MHC.CARE ---
Care Team completed [facility] smart sheet.
--- NOTE | 2022-06-07 20:44 | PC.NURSE ---
pt relocated to ed bed 17 for fluid hydration and additional treatment for hyperglycemia per MD request. PT with PO present at bedside
--- NOTE | 2022-06-07 20:45 | PC.NURSE ---
Pt. just arrived now to main ED manning bed 17. Has orders for 10U IVP Insulin and 1L NS bolus from 18:50 overdue. Confirming orders with MD Shadi now whether to proceed with these orders or not
[2022-06-07 20:47] VITALS: BP 159/116; PULSE 86; RESP 18; O2SAT 98
[2022-06-07 21:02] LABS: Appearance Urine Clear; Color Urine Yellow; Glucose Urine UA >=1000 mg/dL (Negative); Leukocyte Esterase Urine Negative (Negative); Nitrite Urine Negative (Negative); PH 5.5 (5.0-9.0); Specific Gravity - Urine >= 1.030 (1.005-1.025); UMIC TRIGGER UACC YES; Urine Blood Negative (Negative); Urine Ketones Negative (Negative); Urine Protein Negative (Neg-Trace)
[2022-06-07 21:03] LABS: UPreg QC Valid YES; Urine Pregnancy NEGATIVE (NEGATIVE)
[2022-06-07 21:07] LABS: Amphetamine Screen Urine Not Detected (Not Detect); Barbiturates, Urine Not Detected (Not Detect); Benzodiazepines Screen Urine Not Detected (Not Detect); Cannabinoid Screen Urine Not Detected (Not Detect); Cocaine Screen Urine Not Detected (Not Detect); Fentanyl, urine Not Detected (Not Detect); Opiate Screen Urine Not Detected (Not Detect); Phencyclidine Screen Urine Not Detected (Not Detect)
[2022-06-07] MEDS: diphenhydrAMINE HCL 25 MG TABLET PO (21:19)
[2022-06-07] MEDS: LORazepam 1 MG TABLET PO (21:19)
[2022-06-07 21:37] LABS: Bacteria Urine None Seen (None Seen); Hyaline Casts Urine 0-2 /LPF (0-2); RBC Urine 0-2 /HPF (0-2); Squamous Epithelial Cell Urine 0-2 /HPF (0-2); WBC Urine 0-5 /HPF (0-5)
--- NOTE | 2022-06-07 22:29 | PC.NURSE ---
Bolus and IVP Insulin delayed b/c RNs x2 unable to obtain IV access. Provider Juliana Hsu MD at bedside using ultrasound guidance now
[2022-06-07 22:43] LABS: Glucose, Whole Blood 469 mg/dL (60-115)
[2022-06-07] MEDS: Buprenorphine/Naloxone 8/2 mg TAB.SUBL 1 TAB SUBLINGUAL (22:44)
[2022-06-07] MEDS: Insulin Regular, Human 100 UNIT/ML 3 ML VIAL 10 UNIT IVPUSH (22:45)
[2022-06-07] MEDS: 0.9 % Sodium Chloride 1,000 ML 999 ML IV (22:47)
[2022-06-07 23:08] VITALS: BP 155/78; PULSE 66; RESP 18; TEMP 36.4; O2SAT 100
[2022-06-07] MEDS: Apixaban 5 MG TABLET PO (23:18)
[2022-06-07] MEDS: hydrALAZINE HCl 25 MG TABLET 37.5 MG PO (23:18)
[2022-06-07] MEDS: Topiramate 25 MG TABLET PO (23:18)
[2022-06-07 23:35] LABS: Glucose, Whole Blood 300 mg/dL (60-115)
[2022-06-07] MEDS: Prazosin HCL 1 MG CAPSULE PO (23:51)
[2022-06-07] MEDS: Prazosin HCL 1 MG CAPSULE 2 MG PO (23:51)
[2022-06-08 01:19] LABS: Glucose, Whole Blood 347 mg/dL (60-115)
[2022-06-08] MEDS: Insulin Regular, Human 100 UNIT/ML 3 ML VIAL IVPUSH (01:26)
[2022-06-08] MEDS: 0.9 % Sodium Chloride 1,000 ML 999 ML IV (01:28)
--- NOTE | 2022-06-08 01:30 | PC.NURSE ---
Per verbal orders of Juliana Hsu MD, OK to check POCs Q2-3hrs instead of Q1hrs.
[2022-06-08 02:48] LABS: Glucose, Whole Blood 320 mg/dL (60-115)
[2022-06-08 06:33] VITALS: BP 124/68; PULSE 72; RESP 16; O2SAT 98
[2022-06-08 06:52] LABS: Glucose, Whole Blood 209 mg/dL (60-115)
[2022-06-08] MEDS: Insulin Lispro 100 UNIT/ML 3 ML VIAL SUBCUT (07:37)
[2022-06-08] MEDS: Prazosin HCL 1 MG CAPSULE PO (08:12)
[2022-06-08] MEDS: Cholecalciferol (Vitamin D3) 25 MCG TABLET PO (08:13)
[2022-06-08] MEDS: Insulin Glargine,Hum.rec.anlog 100 UNIT/ML 10 ML VIAL 28 UNIT SUBCUT (08:13)
[2022-06-08] MEDS: hydrALAZINE HCl 25 MG TABLET 37.5 MG PO (08:13)
[2022-06-08] MEDS: Buprenorphine/Naloxone 8/2 mg FILM 1 FILM SUBLINGUAL (08:13)
[2022-06-08] MEDS: Prazosin HCL 1 MG CAPSULE 2 MG PO (08:13)
[2022-06-08] MEDS: Losartan Potassium 50 MG TABLET 100 MG PO (08:13)
[2022-06-08] MEDS: Topiramate 25 MG TABLET PO (08:13)
[2022-06-08] MEDS: Apixaban 5 MG TABLET PO (08:13)
[2022-06-08] MEDS: Atorvastatin Calcium 40 MG TABLET PO (08:13)
[2022-06-08] MEDS: ARIPiprazole 20 MG TABLET PO (08:55)
[2022-06-08 10:37] VITALS: BP 152/83; PULSE 106; RESP 16; TEMP 36.8; O2SAT 97
--- NOTE | 2022-06-08 10:55 | MHC.RECOVRN ---
T/W met w/ pt, pt alert to verbal stimuli. Pt reports accesses MAT, Suboxone at [facility], pt states has a therapist. Pt reports was feeling mostly depressed and isolating. T/W and pt discussed recovery resources, packet provided.
== END 2022-06-08 12:15 | disposition home or self-care (01) ==
PROVIDERS: Emergency Provider Emergency Medicine; PCP Family Medicine
DX: E11.65 Type 2 diabetes mellitus with hyperglycemia (principal); F33.1 Major depressive disorder, recurrent, moderate; F41.1 Generalized anxiety disorder; F43.0 Acute stress reaction; Z20.822 Contact with and (suspected) exposure to COVID-19; F17.210 Nicotine dependence, cigarettes, uncomplicated; Z79.899 Other long term (current) drug therapy; Z71.6 Tobacco abuse counseling
CPT/HCPCS: 80048; 80076; 80307; 81001; 81003; 81025; 82947; 83690; 84443; 85025; 87635; 96361; 96374; 96376; 99283; 99284; Q0163

== ENCOUNTER 2022-07-19 14:41 | Inpatient (IN) | payer OTHER, MEDICAID, SELFPAY ==
--- NOTE | ~2022-07-19 | XR_ITS ---
EXAMINATION: XR ABDOMEN KUB CLINICAL INDICATION: Abdominal pain. COMPARISON: None TECHNIQUE: AP view of the abdomen. FINDINGS: Nonobstructive bowel gas pattern. Right upper quadrant clips. Moderate stool burden. XR/XR KUB IMPRESSION: Nonobstructive bowel gas pattern. Moderate stool burden.
[2022-07-19 14:59] VITALS: BP 165/80; BP 166/100; PULSE 78; PULSE 80; RESP 18; TEMP 36.4; O2SAT 100; O2SAT 98; BMI 29.0
--- NOTE | 2022-07-19 15:12 | ECG_ITS ---
Test Reason : MED CLEARANCE Blood Pressure : / mmHG Vent. Rate : 078 BPM Atrial Rate : 078 BPM P-R Int : 138 ms QRS Dur : 096 ms QT Int : 402 ms P-R-T Axes : -20 018 -27 degrees QTc Int : 458 ms Normal sinus rhythm Left ventricular hypertrophy with repolarization abnormality ( Sokolow-Ivan ) Abnormal ECG When compared with ECG of 10-MAR-2021 15:51, Inverted T waves have replaced nonspecific T wave abnormality in Inferior leads Nonspecific T wave abnormality now evident in Lateral leads Referred By: Halima Fragoso Electronically Signed By:LIONEL GEORGE MD
--- NOTE | 2022-07-19 15:17 | ED.PSYCH ---
HPI - Psych General Chief Complaint: Psychiatric Symptoms Stated Complaint: SI W/PLAN FROM OFFICE PER EMS Time Seen by Provider: 07/19/22 14:41 Source: patient and EMS Mode of arrival: EMS Limitations: no limitations History of Present Illness HPI Narrative: Patient comes [facility] the [facility], patient stated that she wants to overdose by using insulin. Patient's nurse states that she receive a phone call from the [facility], patient has not been on Suboxone. Patient has been using cocaine and drinking alcohol. Patient states that she feels depressed, has no one to talk to, wants to , feeling very depressed. Patient states that she feels very itchy all over her body and has been picking on her skin. Related Data Home Medications Medication Instructions Recorded Confirmed apixaban 5 mg tablet (Eliquis) 5 mg PO BID 08/25/20 07/19/22 blood sugar diagnostic (FreeStyle #10 ea 08/25/20 03/18/21 Lite Strips) lancets 28 gauge (FreeStyle #100 ea 08/25/20 03/18/21 Lancets) nebulizers (AeroEclipse II #1 ea 08/25/20 03/18/21 Nebulizer) pen needle, diabetic 32 gauge x #50 ea 08/25/20 03/18/21 5/32 (Comfort EZ Pen [place]) aripiprazole 20 mg tablet 1 tab PO DAILY 06/07/22 07/19/22 atorvastatin 40 mg tablet 1 tab PO DAILY 06/07/22 07/19/22 buprenorphine 8 mg-naloxone 2 mg 1 strip sublingual DAILY 06/07/22 07/19/22 sublingual film (Suboxone) cholecalciferol (vitamin D3) 25 1 cap PO DAILY 06/07/22 07/19/22 mcg (1,000 unit) capsule (Vitamin D3) doxepin 10 mg capsule 1 cap PO BEDTIME 06/07/22 07/19/22 dulaglutide 1.5 mg/0.5 mL 1.5 mg subcut QWEEK 06/07/22 07/19/22 subcutaneous pen injector (Trulicity) fluticasone propionate 220 1 puff inhalation BID 06/07/22 07/19/22 mcg/actuation HFA aerosol inhaler (Flovent HFA) hydralazine 25 mg tablet 1.5 tab PO BID 06/07/22 07/19/22 insulin glargine 100 unit/mL (3 28 unit subcut QAM 06/07/22 07/19/22 mL) subcutaneous pen (Lantus Solostar U-100 Insulin) losartan 100 mg tablet 1 tab PO DAILY 06/07/22 07/19/22 prazosin 2 mg capsule 1 cap PO BID 06/07/22 07/19/22 topiramate 25 mg tablet 1 tab PO BID 06/07/22 07/19/22 trazodone 100 mg tablet 1 tab PO BEDTIME PRN Insomnia 06/07/22 07/19/22 Allergies Allergy/AdvReac Type Severity Reaction Status Date / Time Iodinated Contrast Media Allergy Severe THROAT Verified 08/03/21 14:34 [IV CONTRAST] CLOSING lithium [LITHIUM] Allergy Intermediate AGGRESSION, Verified 08/03/21 14:34 stiffened up & throat closing (moderate to severe) fluoxetine [FLUOXETINE] Allergy Mild ITCHING, Verified 08/03/21 14:34 Suicidal risperidone [From RISPERDAL] Allergy Mild ITCHING Verified 08/03/21 14:34 asparagus [ASPARAGUS] Allergy Unknown unknown Verified 08/03/21 14:34 divalproex sodium Allergy Unknown UNKNOWN, Verified 08/03/21 14:34 [From DEPAKOTE] stiffened up, locked jaw lisinopril [LISINOPRIL] Allergy Unknown COUGH Verified 08/03/21 14:34 olanzapine Allergy Unknown can't Verified 08/03/21 14:34 recall if hives or increased pollen extracts [POLLEN] Allergy Unknown unknown Verified 08/03/21 14:34 tomato [TOMATO] Allergy Unknown UNKNOWN Verified 08/03/21 14:34 quetiapine [From SEROQUEL] AdvReac Intermediate OVERSEDATIO Verified 08/03/21 14:34 N BROCCOLI Allergy Unknown Unknown Uncoded 08/03/21 14:34 FUMARATE Allergy Unknown Unknown Uncoded 08/03/21 14:34 GREEN CHEUNG Allergy Unknown Unknown Uncoded 08/03/21 14:34 TOMATO Allergy Unknown Unknown Uncoded 08/03/21 14:34 Review of Systems Review of Systems: Constitutional : No Weight loss, No Fever, No Chills, No Night Sweats, No Fatigue, No Malaise ENT/Mouth : No Hearing loss, No Ear Pain, No Nasal Congestion, No Sinus Pain, No Hoarseness, No sore throat, No Rhinorrhea, No Swallowing Difficulty Eyes: No Eye Pain, No Swelling, No Redness, No Foreign Body, No Discharge, No Vision Changes Cardiovascular : No Chest Pain, No SOB, No Dyspnea on Exertion, No Orthopnea, No Edema, No Palpitations Respiratory : No Cough, No Sputum, No Wheezing, No Smoke Exposure, No Dyspnea Gastrointestinal : No Nausea, No Vomiting, No Diarrhea, No Constipation, No abdominal Pain, No Hematochezia, No Melena Genitourinary : no irregular bleeding, No Dysuria, No Urinary Frequency, No Hematuria, No Urinary Incontinence, No Urgency, No Flank Pain, No Urinary Flow Changes, No Hesitancy Musculoskeletal : No joint pain, No Myalgias, No Joint Swelling Skin : Multiple excoriations in the skin from skin picking, itchiness Neuro : No Weakness, No Numbness, No Paresthesias, No Loss of Consciousness, No Dizziness, No Headache Psych : Complaining of anxiety and depression, suicidal with plan, no homicidal ideation Heme/Lymph: No Bruising, No Bleeding,No Lymphadenopathy Endocrine : No Polyuria, No Polydipsia, No Temperature Intolerance PMFSH Past Medical History Medical History Anxiety Asthma Back pain Chronic back pain DDD (degenerative disc disease) Depression Diabetes mellitus Elevated cholesterol Endometriosis Fibromyalgia GERD (gastroesophageal reflux disease) History of DVT (deep vein thrombosis) History of pulmonary embolus (PE) HTN (hypertension) IBS (irritable bowel syndrome) Kidney stone Lesion of bladder Mood disorder Multiple sclerosis Normal colonoscopy Obesity (BMI 30-39.9) Ovarian cyst Peripheral neuropathy PTSD (post-traumatic stress disorder) Suicide attempt Surgical History H/O neck surgery History of cystoscopy History of lithotripsy Hx of appendectomy Hx of cholecystectomy Hx of dilation and curettage Hx of tubal ligation S/P endometrial ablation Family History Family History Mother Rheumatoid arteritis COPD (chronic obstructive pulmonary disease) Father HTN (hypertension) Diabetes mellitus Social History Social History Do you presently have visiting nurse or other home services: No (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) Alcohol intake: current Alcohol intake frequency: does not drink Patient Tobacco Use Status: Current everyday Tobacco user Tobacco use type: Cigarette Cigarettes Per Day: 4 Years Smoked: 30 Smoked in Last 30 Days: No Second Hand Smoke Exposure: No Use of substances other than those prescribed or required for medical reasons: Yes Substance Use Type: Crack/Cocaine Advance Directives: No Advance Directives Information Provided: No Gender identity: Female Physical Exam Vital Signs: Vital Signs: Last Vital Signs Temp 98.1 F 07/19/22 20:00 Pulse 83 07/19/22 20:00 Resp 14 07/19/22 20:00 BP 177/86 H 07/19/22 20:00 Pulse Ox 99 07/19/22 20:00 O2 Del Method 07/19/22 20:00 BMI result Body Mass Index 29.0 Const: Other: Appearance: Alert. Oriented X3. No acute distress. Eyes: Pupils equal, round and reactive to light. ENT: Pharynx normal. Neck: Normal inspection. Neck supple. No lymph nodes noted. No crepitus CVS: Normal heart rate and rhythm. Pulses normal. Normal S1 and S2 Respiratory: No respiratory distress. Breath sounds normal. No Wheezing. No rales Abdomen: Soft and nontender. No rigidity. No distention. Skin: Skin warm and dry. Patient has multiple excoriations, a muffin do look superficially infected Extremities: No lower extremity edema. No Lacerations. No Rash Neuro: Oriented X 3. No motor deficit. No sensory deficit. Moving all extremities. No slurred speech. CN 2 through 12 grossly intact Psych: calm, cooperative, teary Course Course Course Narrative: Patient is on a Section 12 for suicidal ideation with plan. [facility] consult pending. Were waiting for the lab results Patient was started on p.o. Keflex and doxycycline for cellulitis from the infected is excoriations Medications Administered Generic Name Dose Route Start Last Admin Trade Name Freq PRN Reason Stop Dose Admin Hydroxyzine HCl 25 mg 07/19/22 17:00 07/19/22 17:07 Hydroxyzine Hcl 25 Mg Tablet PO 25 mg QID ISI Administration Discontinued Medications Generic Name Dose Route Start Last Admin Trade Name Freq PRN Reason Stop Dose Admin Sodium Chloride 2,000 mls @ 999 mls/hr 07/19/22 18:16 07/19/22 19:36 Ns IVCONT 07/19/22 20:16 999 mls/hr .Q2H1M ONE Administration Magnesium Sulfate 2 gm in 50 mls @ 25 mls/hr 07/19/22 18:16 07/19/22 19:37 Magnesium Sulfate/H2o IV 07/19/22 20:15 25 mls/hr ONCE ONE Administration Insulin Human Regular 10 unit 07/19/22 18:16 07/19/22 19:37 Insulin Regular, Human 100 Unit/Ml 3 Ml Vial IVPUSH 07/19/22 18:17 10 unit ONCE ONE Administration Lorazepam 2 mg 07/19/22 15:13 07/19/22 15:49 Lorazepam 1 Mg Tablet PO 07/19/22 15:14 2 mg ONCE ONE Administration Potassium Chloride 40 meq 07/19/22 18:16 07/19/22 19:39 Potassium Chloride Packet 20 Meq Packet PO 07/19/22 18:17 40 meq ONCE ONE Administration MDM - Psych Lab Data Result diagrams: 07/19/22 17:07 07/19/22 17:07 Labs: Lab Results 07/19/22 07/19/22 07/19/22 Range/Units 15:19 15:24 16:30 WBC (4.8-10.8) X10*3/uL RBC (4.20-5.50) X10*6/uL Hgb (12.0-16.0) g/dl Hct (37.0-47.0) % MCV (80.0-98.0) fL MCH (27.0-33.0) pg MCHC (31.0-35.0) g/dl RDW (11.0-16.0) % Plt Count (160-400) X10*3/uL MPV (9.4-12.3) fL Immature Gran % (Auto) (0.0-0.4) % Neut % (Auto) (45-73) % Lymph % (Auto) (20-40) % [place] % (Auto) (2-11) % Eos % (Auto) (0-4) % Baso % (Auto) (0-2) % Lymph # (Auto) (1.2-4.9) X10*3/uL [place] # (Auto) (0.1-1.2) X10*3/uL Eos # (Auto) (0.0-0.4) X10*3/uL Baso # (Auto) (0.0-0.2) X10*3/uL Abs Immat Gran (auto) (0.00-0.03) X10*3/uL Absolute Neuts (auto) (2.0-8.3) x10*3/uL Absolute Nucleated RBC (0.0-0.012) X10*3/uL Nucleated RBC % (auto) (0.0-0.2) /100WBC Sodium (135-145) mmol/L Potassium (3.3-5.1) mmol/L Chloride (96-108) mmol/L Carbon Dioxide (22-29) mmol/L Anion Gap (12-20) BUN (9-16) mg/dL Creatinine (0.5-1.4) mg/dL Estim Creat Clear Calc Estimated GFR POC Glucose 398 H* (60-115) mg/dL Random Glucose (60-115) mg/dL Calcium (8.4-10.2) mg/dL Magnesium (1.6-2.6) mg/dL Total Bilirubin (0.0-1.0) mg/dL Direct Bilirubin (0.0-0.5) mg/dL AST (5-31) U/L ALT (0-31) U/L Alkaline Phosphatase (39-117) U/L Total Protein (6.5-8.0) g/dL Albumin (3.5-5.0) g/dL Lipase (8-78) U/L Urine Color Yellow Urine Appearance Clear Urine pH 6.0 (5.0-9.0) Ur Specific [place] >= 1.030 H (1.005-1.025) Urine Protein Negative (Neg-Trace) mg/dL Urine Glucose (UA) >=1000 H (Negative) mg/dL Urine Ketones 15 (Negative) mg/dL Urine Blood Negative (Negative) Urine Nitrite Negative (Negative) Ur Leukocyte Esterase Negative (Negative) Urine RBC 0-2 (0-2) /HPF Urine WBC 0-5 (0-5) /HPF Ur Squamous Epith Cells 6-10 (0-2) /HPF Urine Bacteria 4+ (None Seen) Hyaline Casts 0-2 (0-2) /LPF Urine Opiates Screen (Not Detect) Urine Fentanyl Screen (Not Detect) Ur Barbiturates Screen (Not Detect) Ur Phencyclidine Scrn (Not Detect) Ur Amphetamines Screen (Not Detect) U Benzodiazepines Scrn (Not Detect) Urine Cocaine Screen (Not Detect) U Marijuana (THC) Screen (Not Detect) Ethyl Alcohol mg/dL COVID-19 (JARRETT) Negative (Negative) COVID-19 Clin Com See Note 07/19/22 07/19/22 07/19/22 Range/Units 16:30 17:07 17:07 WBC 8.4 (4.8-10.8) X10*3/uL RBC 5.33 (4.20-5.50) X10*6/uL Hgb 14.8 (12.0-16.0) g/dl Hct 43.7 (37.0-47.0) % MCV 82.0 (80.0-98.0) fL MCH 27.8 (27.0-33.0) pg MCHC 33.9 (31.0-35.0) g/dl RDW 11.9 (11.0-16.0) % Plt Count 232 (160-400) X10*3/uL MPV 10.2 (9.4-12.3) fL Immature Gran % (Auto) 0.2 (0.0-0.4) % Neut % (Auto) 77.2 H (45-73) % Lymph % (Auto) 15.6 L (20-40) % [place] % (Auto) 4.2 (2-11) % Eos % (Auto) 2.4 (0-4) % Baso % (Auto) 0.4 (0-2) % Lymph # (Auto) 1.3 (1.2-4.9) X10*3/uL [place] # (Auto) 0.4 (0.1-1.2) X10*3/uL Eos # (Auto) 0.2 (0.0-0.4) X10*3/uL Baso # (Auto) 0.0 (0.0-0.2) X10*3/uL Abs Immat Gran (auto) 0.02 (0.00-0.03) X10*3/uL Absolute Neuts (auto) 6.5 (2.0-8.3) x10*3/uL Absolute Nucleated RBC 0.000 (0.0-0.012) X10*3/uL Nucleated RBC % (auto) 0.0 (0.0-0.2) /100WBC Sodium 139 (135-145) mmol/L Potassium 3.1 L (3.3-5.1) mmol/L Chloride 97 (96-108) mmol/L Carbon Dioxide 29 (22-29) mmol/L Anion Gap 16 (12-20) BUN 17 H (9-16) mg/dL Creatinine 0.96 (0.5-1.4) mg/dL Estim Creat Clear Calc 76.3 Estimated GFR > 60 POC Glucose (60-115) mg/dL Random Glucose 496 H* (60-115) mg/dL Calcium 9.2 D (8.4-10.2) mg/dL Magnesium 1.4 L* (1.6-2.6) mg/dL Total Bilirubin 0.3 (0.0-1.0) mg/dL Direct Bilirubin < 0.2 (0.0-0.5) mg/dL AST 14 D (5-31) U/L ALT 20 (0-31) U/L Alkaline Phosphatase 131 H D (39-117) U/L Total Protein 6.8 (6.5-8.0) g/dL Albumin 4.1 (3.5-5.0) g/dL Lipase 87 H (8-78) U/L Urine Color Urine Appearance Urine pH (5.0-9.0) Ur Specific [place] (1.005-1.025) Urine Protein (Neg-Trace) mg/dL Urine Glucose (UA) (Negative) mg/dL Urine Ketones (Negative) mg/dL Urine Blood (Negative) Urine Nitrite (Negative) Ur Leukocyte Esterase (Negative) Urine RBC (0-2) /HPF Urine WBC (0-5) /HPF Ur Squamous Epith Cells (0-2) /HPF Urine Bacteria (None Seen) Hyaline Casts (0-2) /LPF Urine Opiates Screen Not Detected (Not Detect) Urine Fentanyl Screen Not Detected (Not Detect) Ur Barbiturates Screen Not Detected (Not Detect) Ur Phencyclidine Scrn Not Detected (Not Detect) Ur Amphetamines Screen Not Detected (Not Detect) U Benzodiazepines Scrn Not Detected (Not Detect) Urine Cocaine Screen POSITIVE H (Not Detect) U Marijuana (THC) Screen Not Detected (Not Detect) Ethyl Alcohol < 10 mg/dL COVID-19 (JARRETT) (Negative) COVID-19 Clin Com Discharge Plan Discharge Clinical Impression: Suicidal ideation, Cellulitis Patient Disposition: Still a Patient Prescriptions: No Action fluticasone propionate [Flovent HFA] 220 mcg/actuation HFA aerosol inhaler 1 puff inhalation BID buprenorphine-naloxone [Suboxone] 8-2 mg film 1 strip sublingual DAILY hydralazine 25 mg tablet 1.5 tab PO BID insulin glargine [Lantus Solostar U-100 Insulin] 100 unit/mL (3 mL) insulin pen 28 unit subcut QAM atorvastatin 40 mg tablet 1 tab PO DAILY topiramate 25 mg tablet 1 tab PO BID doxepin 10 mg capsule 1 cap PO BEDTIME trazodone 100 mg tablet 1 tab PO BEDTIME PRN (Reason: Insomnia) losartan 100 mg tablet 1 tab PO DAILY prazosin 2 mg capsule 1 cap PO BID cholecalciferol (vitamin D3) [Vitamin D3] 25 mcg (1,000 unit) capsule 1 cap PO DAILY aripiprazole 20 mg tablet 1 tab PO DAILY Trulicity 1.5 mg/0.5 mL pen injector 1.5 mg subcut QWEEK (DME) AeroEclipse II Nebulizer Misc See Rx Instructions .ROUTE .MEDSUPPLY Qty: 1 Rx Instructions: As directed (DME) lancets [FreeStyle Lancets] 28 gauge misc See Rx Instructions .ROUTE .MEDSUPPLY Qty: 100 Rx Instructions: As directed (DME) FreeStyle Lite Strips Strip See Rx Instructions .ROUTE .MEDSUPPLY Qty: 10 Rx Instructions: As directed (DME) pen needle, diabetic [Comfort EZ Pen [place]] 32 gauge x 5/32 needle See Rx Instructions .ROUTE .MEDSUPPLY Qty: 50 Rx Instructions: As directed Eliquis 5 mg tablet 5 mg PO BID
[2022-07-19 15:21] LABS: Glucose, Whole Blood 398 mg/dL (60-115)
[2022-07-19] MEDS: LORazepam 1 MG TABLET 2 MG PO ×2 (15:49→21:05)
[2022-07-19 16:01] LABS: COVID-19 Test Negative (Negative); IDNOW Serial# 16C4AD1C
[2022-07-19 16:38] LABS: Appearance Urine Clear; Color Urine Yellow; Glucose Urine UA >=1000 mg/dL (Negative); Leukocyte Esterase Urine Negative (Negative); Nitrite Urine Negative (Negative); Specific Gravity - Urine >= 1.030 (1.005-1.025); UMIC TRIGGER UACC YES; Urine Blood Negative (Negative); Urine Ketones 15 mg/dL (Negative); Urine Protein Negative (Neg-Trace)
[2022-07-19 16:55] LABS: Bacteria Urine 4+ (None Seen); Hyaline Casts Urine 0-2 /LPF (0-2); RBC Urine 0-2 /HPF (0-2); WBC Urine 0-5 /HPF (0-5)
[2022-07-19 17:05] LABS: Amphetamine Screen Urine Not Detected (Not Detect); Barbiturates, Urine Not Detected (Not Detect); Benzodiazepines Screen Urine Not Detected (Not Detect); Cannabinoid Screen Urine Not Detected (Not Detect); Cocaine Screen Urine POSITIVE (Not Detect); Fentanyl, urine Not Detected (Not Detect); Opiate Screen Urine Not Detected (Not Detect); Phencyclidine Screen Urine Not Detected (Not Detect)
[2022-07-19] MEDS: hydrOXYzine HCL 25 MG TABLET PO ×2 (17:07→21:05)
[2022-07-19 17:12] LABS: Basophils Percent Auto 0.4 % (0-2); Eosinophils Absolute Auto 0.2 X10*3/uL (0.0-0.4); Eosinophils Percent Auto 2.4 % (0-4); Hematocrit 43.7 % (37.0-47.0); Hemoglobin 14.8 g/dl (12.0-16.0); Imm Gran Abs Auto 0.02 X10*3/uL (0.00-0.03); Imm Gran Pct Auto 0.2 % (0.0-0.4); Lymphocytes Absolute Auto 1.3 X10*3/uL (1.2-4.9); Lymphocytes Percent Auto 15.6 % (20-40); MANUAL DIFF FLAG NO; Mean Corpuscular HGB Conc 33.9 g/dl (31.0-35.0); Mean Corpuscular Hemoglobin 27.8 pg (27.0-33.0); Mean Platelet Volume 10.2 fL (9.4-12.3); Monocytes Absolute Auto 0.4 X10*3/uL (0.1-1.2); Monocytes Percent Auto 4.2 % (2-11); Neutrophils Absolute Auto 6.5 x10*3/uL (2.0-8.3); Neutrophils Percent Auto 77.2 % (45-73); Platelet Count 232 X10*3/uL (160-400); Red Blood Count 5.33 X10*6/uL (4.20-5.50); Red Cell Distribution Width 11.9 % (11.0-16.0); White Blood Count 8.4 X10*3/uL (4.8-10.8)
[2022-07-19 17:53] LABS: Alanine Aminotransferase 20 U/L (0-31); Albumin Level 4.1 g/dL (3.5-5.0); Alkaline Phosphatase 131 U/L (39-117); Anion Gap 16 (12-20); Aspartate Amino Transferase 14 U/L (5-31); Bilirubin Direct < 0.2 mg/dL (0.0-0.5); Bilirubin Total 0.3 mg/dL (0.0-1.0); Blood Urea Nitrogen 17 mg/dL (9-16); Calcium 9.2 mg/dL (8.4-10.2); Carbon Dioxide 29 mmol/L (22-29); Chloride 97 mmol/L (96-108); Creatinine Clr Calc Pharmacy 76.3; Estimated Glomerular Filt Rate > 60; Ethanol < 10 mg/dL; Glucose Random 496 mg/dL (60-115); Lipase 87 U/L (8-78); Magnesium 1.4 mg/dL (1.6-2.6); Potassium 3.1 mmol/L (3.3-5.1); Sodium 139 mmol/L (135-145); Total Protein 6.8 g/dL (6.5-8.0)
[2022-07-19 18:00] VITALS: BP 182/99; PULSE 77; RESP 16; TEMP 36.6; O2SAT 98
[2022-07-19] MEDS: 0.9 % Sodium Chloride 2,000 ML 999 ML IVCONT (19:36)
[2022-07-19] MEDS: Magnesium Sulfate/H2O 2 GM/50 ML PIGGYBACK IV (19:37)
[2022-07-19] MEDS: Insulin Regular, Human 100 UNIT/ML 3 ML VIAL 10 UNIT IVPUSH (19:37)
[2022-07-19] MEDS: Potassium Chloride Packet 20 MEQ PACKET 40 MEQ PO (19:39)
[2022-07-19 20:00] VITALS: BP 177/86; PULSE 83; RESP 14; TEMP 36.7; O2SAT 99
[2022-07-19] MEDS: cephALEXin 500 MG CAPSULE PO (21:05)
[2022-07-19] MEDS: diphenhydrAMINE HCL 25 MG CAPSULE 50 MG PO (21:05)
[2022-07-19 22:23] VITALS: BP 168/76; PULSE 77; RESP 18; TEMP 36.8; O2SAT 98
[2022-07-19 23:22] LABS: Anion Gap 16 (12-20); Blood Urea Nitrogen 14 mg/dL (9-16); Calcium 8.8 mg/dL (8.4-10.2); Carbon Dioxide 26 mmol/L (22-29); Chloride 102 mmol/L (96-108); Creatinine Clr Calc Pharmacy 91.6; Estimated Glomerular Filt Rate > 60; Glucose Random 348 mg/dL (60-115); Magnesium 1.7 mg/dL (1.6-2.6); Potassium 3.1 mmol/L (3.3-5.1); Sodium 141 mmol/L (135-145)
[2022-07-20] VITALS (8 sets, daily range): BP systolic 97–196; BP diastolic 57–90; PULSE 77–100; RESP 15–18; TEMP 36.4–37.1; O2SAT 93–98
[2022-07-20] MEDS: Potassium Bicarbonate/Cit AC 25 MEQ TABLET.EFF PO (01:01)
[2022-07-20] MEDS: LORazepam 1 MG TABLET 2 MG PO (01:46)
--- NOTE | 2022-07-20 02:04 | PC.NURSE ---
POC glucose 412. aware.
[2022-07-20 02:06] LABS: Glucose, Whole Blood 412 mg/dL (60-115)
[2022-07-20] MEDS: Insulin Regular, Human 100 UNIT/ML 3 ML VIAL 10 UNIT IVPUSH (02:17)
--- NOTE | 2022-07-20 07:03 | PC.NURSE ---
Dr. Zarate made aware of pt BP, ordered home meds including BP meds report given to LUCIUS Thompson
[2022-07-20 07:18] LABS: Glucose, Whole Blood 397 mg/dL (60-115)
--- NOTE | 2022-07-20 07:20 | PC.NURSE ---
pt is sleeping resp and unlabored.
--- NOTE | 2022-07-20 09:21 | PC.NURSE ---
n smart sheet faxed. pt is awake and in th bathroom.m amb (i) gait steady.
[2022-07-20] MEDS: Losartan Potassium 50 MG TABLET 100 MG PO (09:37)
[2022-07-20] MEDS: hydrALAZINE HCl 25 MG TABLET 37.5 MG PO ×2 (09:37→21:36)
[2022-07-20] MEDS: Topiramate 25 MG TABLET PO (09:38)
[2022-07-20] MEDS: Cholecalciferol (Vitamin D3) 25 MCG TABLET PO (09:38)
[2022-07-20] MEDS: Apixaban 5 MG TABLET PO ×2 (09:38→21:36)
[2022-07-20] MEDS: cephALEXin 500 MG CAPSULE PO ×2 (09:38→21:36)
[2022-07-20] MEDS: Buprenorphine/Naloxone 8/2 mg FILM 1 FILM SUBLINGUAL (09:38)
[2022-07-20] MEDS: Atorvastatin Calcium 40 MG TABLET PO (09:38)
[2022-07-20] MEDS: Prazosin HCL 1 MG CAPSULE 2 MG PO (09:38)
[2022-07-20] MEDS: hydrOXYzine HCL 25 MG TABLET PO ×2 (09:38→13:37)
[2022-07-20] MEDS: Insulin Lispro 100 UNIT/ML 3 ML VIAL 10 UNIT SUBCUT (09:39)
[2022-07-20] MEDS: Insulin Glargine,Hum.rec.anlog 100 UNIT/ML 10 ML VIAL 28 UNIT SUBCUT (09:39)
[2022-07-20] MEDS: ARIPiprazole 20 MG TABLET PO (10:47)
--- NOTE | 2022-07-20 11:40 | PC.NURSE ---
[facility] at bedside, user acceptance tester aware of plan of care.
--- NOTE | 2022-07-20 11:55 | PC.NURSE ---
inpatient bed search per [facility]. pt aware of plan of care.
[2022-07-20 12:49] LABS: Glucose, Whole Blood 235 mg/dL (60-115)
[2022-07-20] MEDS: Insulin Lispro 100 UNIT/ML 3 ML VIAL SUBCUT ×3 (13:36→21:37)
--- NOTE | 2022-07-20 15:04 | PC.NURSE ---
rn to rn report given to ivan. pt aware of plan of care for transfer to room 306.
--- NOTE | 2022-07-20 15:10 | PC.NURSE ---
pt states that she continues to be +si. pt is resting resp even and unlabored.
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
[2022-07-20 17:28] LABS: Glucose, Whole Blood 198 mg/dL (60-115)
--- NOTE | 2022-07-20 17:38 | PC.NURSE ---
pt refused flu vaccine at this time
--- NOTE | 2022-07-20 18:18 | PC.NURSE ---
1700 hydroxyzine 25mg held d/t pt's mental status/excessive drowsiness/dizziness. Per Erica will also hold QHS Prazosin
[2022-07-20 20:31] LABS: Glucose, Whole Blood 294 mg/dL (60-115)
[2022-07-20] MEDS: Fluticasone Propionate 250 MCG BLST.W.DEV 1 PUFF INHALE (21:36)
[2022-07-21 07:00] VITALS: BMI 25.9
[2022-07-21 08:08] LABS: Glucose, Whole Blood 145 mg/dL (60-115)
[2022-07-21 08:40] VITALS: BP 136/86; PULSE 77; RESP 16; TEMP 36.4; O2SAT 100
[2022-07-21] MEDS: Apixaban 5 MG TABLET PO ×2 (08:48→21:05)
[2022-07-21] MEDS: hydrALAZINE HCl 25 MG TABLET 37.5 MG PO ×2 (08:48→21:03)
[2022-07-21] MEDS: Acetaminophen 325 MG TABLET 650 MG PO ×3 (08:49→21:07)
[2022-07-21] MEDS: cephALEXin 500 MG CAPSULE PO ×2 (08:49→21:08)
[2022-07-21] MEDS: Losartan Potassium 50 MG TABLET 100 MG PO (08:49)
[2022-07-21] MEDS: Prazosin HCL 1 MG CAPSULE 2 MG PO ×2 (08:50→21:05)
[2022-07-21] MEDS: hydrOXYzine HCL 25 MG TABLET PO ×3 (08:50→16:07)
[2022-07-21] MEDS: Topiramate 25 MG TABLET PO ×2 (08:50→21:08)
[2022-07-21] MEDS: Cholecalciferol (Vitamin D3) 25 MCG TABLET PO (08:50)
[2022-07-21] MEDS: Insulin Glargine,Hum.rec.anlog 100 UNIT/ML 10 ML VIAL 28 UNIT SUBCUT (08:50)
[2022-07-21] MEDS: ARIPiprazole 20 MG TABLET PO (08:50)
[2022-07-21] MEDS: Atorvastatin Calcium 40 MG TABLET PO (08:50)
[2022-07-21] MEDS: Buprenorphine/Naloxone 8/2 mg FILM 1 FILM SUBLINGUAL (08:51)
[2022-07-21] MEDS: Milk of Magnesia 30 ML ORAL.SUSP PO (08:52)
[2022-07-21] MEDS: Fluticasone Propionate 250 MCG BLST.W.DEV 1 PUFF INHALE (09:10)
[2022-07-21] MEDS: Insulin Lispro 100 UNIT/ML 3 ML VIAL 10 UNIT SUBCUT (09:11)
[2022-07-21 12:41] LABS: Glucose, Whole Blood 187 mg/dL (60-115)
[2022-07-21] MEDS: Insulin Lispro 100 UNIT/ML 3 ML VIAL SUBCUT ×3 (13:12→21:37)
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
[2022-07-21 17:48] LABS: Glucose, Whole Blood 266 mg/dL (60-115)
[2022-07-21] MEDS: LORazepam 1 MG TABLET PO (18:41)
[2022-07-21 21:07] VITALS: BP 117/56; PULSE 80; RESP 16; TEMP 36.6; O2SAT 94
[2022-07-21] MEDS: Doxepin HCl 10 MG CAPSULE PO (21:08)
[2022-07-21 21:26] LABS: Glucose, Whole Blood 225 mg/dL (60-115)
[2022-07-21] MEDS: Mineral Oil/Petrolatum,White 106 GM Tube 1 APPL TOPICAL (21:38)
[2022-07-22 06:00] VITALS: BP 124/82; PULSE 76; RESP 16; TEMP 36.6; O2SAT 95
[2022-07-22 09:21] LABS: Syphilis Screen Reactive (Nonreactive)
[2022-07-22 09:30] LABS: HIV AB/AG Nonreactive (Nonreactive); HIV Num 1 0.09 S/CO (0.00-0.99)
[2022-07-22 09:54] LABS: Glucose, Whole Blood 156 mg/dL (60-115)
[2022-07-22] MEDS: Atorvastatin Calcium 40 MG TABLET PO (10:14)
[2022-07-22] MEDS: Insulin Glargine,Hum.rec.anlog 100 UNIT/ML 10 ML VIAL 28 UNIT SUBCUT (10:14)
[2022-07-22] MEDS: Buprenorphine/Naloxone 8/2 mg FILM 1 FILM SUBLINGUAL (10:15)
[2022-07-22] MEDS: hydrOXYzine HCL 25 MG TABLET PO (10:15)
[2022-07-22] MEDS: Thiamine HCL 100 MG TABLET 50 MG PO (10:15)
[2022-07-22] MEDS: cephALEXin 500 MG CAPSULE PO ×2 (10:15→21:08)
[2022-07-22] MEDS: Acetaminophen 325 MG TABLET 650 MG PO (10:15)
[2022-07-22] MEDS: Topiramate 25 MG TABLET PO ×2 (10:16→21:07)
[2022-07-22] MEDS: ARIPiprazole 20 MG TABLET PO (10:16)
[2022-07-22] MEDS: Cholecalciferol (Vitamin D3) 25 MCG TABLET PO (10:16)
[2022-07-22] MEDS: hydrALAZINE HCl 25 MG TABLET 37.5 MG PO ×2 (10:16→21:05)
[2022-07-22] MEDS: Folic Acid 1 MG TABLET PO (10:16)
[2022-07-22] MEDS: Prazosin HCL 1 MG CAPSULE 2 MG PO ×2 (10:16→21:08)
[2022-07-22] MEDS: Losartan Potassium 50 MG TABLET 100 MG PO (10:17)
[2022-07-22] MEDS: Apixaban 5 MG TABLET PO ×2 (10:17→21:07)
[2022-07-22] MEDS: LORazepam 0.5 MG TABLET PO ×2 (10:17→21:35)
[2022-07-22] MEDS: Fluticasone Propionate 250 MCG BLST.W.DEV 1 PUFF INHALE ×2 (10:31→21:35)
[2022-07-22] MEDS: Doxycycline Monohydrate 100 MG CAPSULE PO ×2 (10:31→21:09)
[2022-07-22] MEDS: Mineral Oil/Petrolatum,White 106 GM Tube 1 APPL TOPICAL (10:31)
[2022-07-22] MEDS: Insulin Lispro 100 UNIT/ML 3 ML VIAL SUBCUT ×4 (10:32→21:09)
[2022-07-22] MEDS: Insulin Lispro 100 UNIT/ML 3 ML VIAL 10 UNIT SUBCUT (10:32)
[2022-07-22 12:21] LABS: CT PCR NOT DETECTED (Not Detect.); NG PCR NOT DETECTED (Not Detect.)
[2022-07-22 12:43] LABS: Glucose, Whole Blood 206 mg/dL (60-115)
--- NOTE | 2022-07-22 18:07 | HO.PSYCHPN ---
Subjective Subjective Date of Service: 07/22/22 Reason For Visit: SI/Depression Interim History: Discussed with team. Pt labs positive for syphilis, will place consult with infectious disease after discussing with hospitalist. Pt has been treated for syphilis with IM penicillin 1x about a mo ago. Spoke with pt. Continues to complain of skin picking, on keflex for cellulitis, says no meds have helped with this. Sleep is poor, waking up, in the day she is just exhausted, drained. Still complains of abdominal pain, says it feels a little better after eating. Cramping, IBS? No nausea, vomiting, or diarrhea. Still hasnt had BM. Willing to trial docusate. Says she is feeling okay with her meds. Medication Compliance: Yes Side effects from medications: No Attending Groups: Yes Review of Systems Acute medical concerns: No Medical Review of Systems: unchanged Mental Status Exam Mental Status Exam Narrative: A&O. Casual attire, unkempt, overweight, excoriation scabs and scars. Poor eye contact, inattentive. No Tics or Tremors. No abnormal involuntary movements. Calm, guarded but engaged. Non-pressured speech, spontaneous with regular rate and rhythm, normal volume and prosody. No prolonged speech latency or dysarthria. Mood is ?depressed,? affect is tired, dysphoric. Denies SI/SIB/HI upon inquiry. Denies A/VH or delusional thought content. Thoughts are coherent, organized. No known cognitive or memory impairment. Insight/ Judgment fair and adequate. Diagnostics Vital Signs (24Hr): Vital Signs - 24 hr 07/21/22 21:07 07/22/22 06:00 Temperature 97.9 F 97.8 F Pulse Rate 80 76 Respiratory Rate 16 16 Blood Pressure 117/56 L 124/82 Pulse Oximetry 94 95 Oxygen Delivery Method Room Air Room Air BMI result Body Mass Index 25.9 Labs Results: 07/19/22 17:07 07/19/22 22:57 Labs: Laboratory Results - last 48 hr 07/20/22 07/21/22 07/21/22 20:26 08:03 12:38 POC Glucose 294 H 145 H 187 H T.pallidum Ab (EIA) Chlam trachomat DNA PCR HIV 1&2 Ab/P24 Ag 4thGn N.gonorrhoeae DNA (PCR) 07/21/22 07/21/22 07/21/22 17:24 17:24 17:25 POC Glucose T.pallidum Ab (EIA) Reactive A Chlam trachomat DNA PCR NOT DETECTED HIV 1&2 Ab/P24 Ag 4thGn Nonreactive N.gonorrhoeae DNA (PCR) NOT DETECTED 07/21/22 07/21/22 07/22/22 17:44 21:12 09:44 POC Glucose 266 H 225 H 156 H T.pallidum Ab (EIA) Chlam trachomat DNA PCR HIV 1&2 Ab/P24 Ag 4thGn N.gonorrhoeae DNA (PCR) 07/22/22 12:39 POC Glucose 206 H T.pallidum Ab (EIA) Chlam trachomat DNA PCR HIV 1&2 Ab/P24 Ag 4thGn N.gonorrhoeae DNA (PCR) Medications Medications Current Medications Acetaminophen (Acetaminophen 325 Mg Tablet) 650 mg PO Q6H PRN PRN Reason: Headache/Pain Mild Scale (1-3) Last Admin: 07/22/22 10:15 Dose: 650 mg Al Hydroxide/Mg Hydroxide (Magnesium Hydrox/Alum Hydrox 30 Ml Oral.Susp) 30 ml PO Q6H PRN PRN Reason: Heartburn/Nausea Apixaban (Apixaban 5 Mg Tablet) 5 mg PO BID [facility] Last Admin: 07/22/22 10:17 Dose: 5 mg Aripiprazole (Aripiprazole 20 Mg Tablet) 20 mg PO DAILY [facility] Last Admin: 07/22/22 10:16 Dose: 20 mg Atorvastatin Calcium (Atorvastatin Calcium 40 Mg Tablet) 40 mg PO DAILY [facility] Last Admin: 07/22/22 10:14 Dose: 40 mg Buprenorphine/Naloxone (Buprenorphine/Naloxone 8/2 Mg Film) 1 film SUBLINGUAL DAILY [facility] Last Admin: 07/22/22 10:15 Dose: 1 film Cephalexin HCl (Cephalexin 500 Mg Capsule) 500 mg PO BID [facility] Last Admin: 07/22/22 10:15 Dose: 500 mg Dextrose (Dextrose 50 % 25 Gm/50 Ml Syringe) 25 gm IVPUSH Q15M PRN; Protocol PRN Reason: per Hypoglycemia Standing Ord. Doxepin HCl (Doxepin Hcl 10 Mg Capsule) 10 mg PO BEDTIME [facility] Last Admin: 07/21/22 21:08 Dose: 10 mg Doxycycline Monohydrate (Doxycycline Monohydrate 100 Mg Capsule) 100 mg PO BID [facility] Last Admin: 07/22/22 10:31 Dose: 100 mg Fluticasone Propionate (Fluticasone Propionate 250 Mcg Blst.W.Dev) 1 puff INHALE RBID [facility] Last Admin: 07/22/22 10:31 Dose: 1 puff Folic Acid (Folic Acid 1 Mg Tablet) 1 mg PO DAILY [facility] Last Admin: 07/22/22 10:16 Dose: 1 mg Glucose (Glucose Gel 15 Gm Gel..Gram.) 15 gm PO Q15M PRN; Protocol PRN Reason: per Hypoglycemia Standing Ord. Hydralazine HCl (Hydralazine Hcl 25 Mg Tablet) 37.5 mg PO BID [facility]; Protocol Last Admin: 07/22/22 10:16 Dose: 37.5 mg Hydroxyzine HCl (Hydroxyzine Hcl 25 Mg Tablet) 25 mg PO Q6H PRN PRN Reason: Anxiety Last Admin: 07/22/22 10:15 Dose: 25 mg Insulin Glargine (Insulin Glargine,Hum.Rec.Anlog 100 Unit/Ml 10 Ml Vial) 28 unit SUBCUT DAILY [facility] Last Admin: 07/22/22 10:14 Dose: 28 unit Insulin Human Lispro (Insulin Lispro 100 Unit/Ml 3 Ml Vial) 0 unit SUBCUT QIDACHS [facility]; Protocol Last Admin: 07/22/22 14:16 Dose: 4 unit Insulin Human Lispro (Insulin Lispro 100 Unit/Ml 3 Ml Vial) 10 unit SUBCUT DAILY@0730 [facility] Last Admin: 07/22/22 10:32 Dose: 10 unit Lorazepam (Lorazepam 0.5 Mg Tablet) 0.5 mg PO Q6H PRN PRN Reason: CIWA 7-12 Last Admin: 07/22/22 10:17 Dose: 0.5 mg Losartan Potassium (Losartan Potassium 50 Mg Tablet) 100 mg PO DAILY [facility]; Protocol Last Admin: 07/22/22 10:17 Dose: 100 mg Magnesium Hydroxide (Milk Of Magnesia 30 Ml Oral.Susp) 30 ml PO DAILY PRN PRN Reason: Constipation Last Admin: 07/21/22 08:52 Dose: 30 ml Multi-Ingred Cream/Lotion/Oil/Oint (Mineral Oil/Petrolatum,White 106 Gm Tube) 1 appl TOPICAL TID [facility] Last Admin: 07/22/22 14:29 Dose: Not Given Nicotine Polacrilex (Nicotine Polacrilex 2 Mg Gum) 4 mg BUCCAL Q2H PRN PRN Reason: Nicotine Cravings Prazosin HCl (Prazosin Hcl 1 Mg Capsule) 2 mg PO BID [facility]; Protocol Last Admin: 07/22/22 10:16 Dose: 2 mg Thiamine HCl (Thiamine Hcl 100 Mg Tablet) 50 mg PO DAILY [facility] Last Admin: 07/22/22 10:15 Dose: 50 mg Topiramate (Topiramate 25 Mg Tablet) 25 mg PO BID [facility] Last Admin: 07/22/22 10:16 Dose: 25 mg Trazodone HCl (Trazodone Hcl 100 Mg Tablet) 100 mg PO BEDTIME PRN PRN Reason: Insomnia Vitamin D (Cholecalciferol (Vitamin D3) 25 Mcg Tablet) 25 mcg PO DAILY [facility] Last Admin: 07/22/22 10:16 Dose: 25 mcg Allergies Allergies Allergy/AdvReac Type Severity Reaction Status Date / Time Iodinated Contrast Media Allergy Severe THROAT Verified 08/03/21 14:34 [IV CONTRAST] CLOSING lithium [LITHIUM] Allergy Intermediate AGGRESSION, Verified 08/03/21 14:34 stiffened up & throat closing (moderate to severe) fluoxetine [FLUOXETINE] Allergy Mild ITCHING, Verified 08/03/21 14:34 Suicidal risperidone [From RISPERDAL] Allergy Mild ITCHING Verified 08/03/21 14:34 asparagus [ASPARAGUS] Allergy Unknown unknown Verified 08/03/21 14:34 divalproex sodium Allergy Unknown UNKNOWN, Verified 08/03/21 14:34 [From DEPAKOTE] stiffened up, locked jaw lisinopril [LISINOPRIL] Allergy Unknown COUGH Verified 08/03/21 14:34 olanzapine Allergy Unknown can't Verified 08/03/21 14:34 recall if hives or increased pollen extracts [POLLEN] Allergy Unknown unknown Verified 08/03/21 14:34 tomato [TOMATO] Allergy Unknown UNKNOWN Verified 08/03/21 14:34 quetiapine [From SEROQUEL] AdvReac Intermediate OVERSEDATIO Verified 08/03/21 14:34 N BROCCOLI Allergy Unknown Unknown Uncoded 08/03/21 14:34 FUMARATE Allergy Unknown Unknown Uncoded 08/03/21 14:34 GREEN CHEUNG Allergy Unknown Unknown Uncoded 08/03/21 14:34 TOMATO Allergy Unknown Unknown Uncoded 08/03/21 14:34 Assessment & Plan Assessment & Plan (1) Post traumatic stress disorder (PTSD): Status: Acute Code(s): F43.10 - Post-traumatic stress disorder, unspecified (2) MDD (major depressive disorder), recurrent severe, without psychosis: Status: Acute Code(s): F33.2 - Major depressive disorder, recurrent severe without psychotic features (3) Cocaine use disorder: Status: Acute Code(s): F14.10 - Cocaine abuse, uncomplicated (4) Opioid use disorder: Status: Acute Code(s): F11.90 - Opioid use, unspecified, uncomplicated Plan Emily is a 51 y.o. Who carries a dx of PTSD, MDD recurrent, cocaine use disorder, and opioid use disorder (in remission). She presented to [facility] on 07/19/2022 from her Suboxone Clinic due to SI with a plan to OD by using insulin or cut her wrists, increased depression. She has been non-adherent on suboone, using cocaine and drinking alcohol. Of note, has been skin picking. Has been non-adherent on her psych meds x 30 days. She identified stressors as her medical issues including MS. She has not slept in 3-4 days prior to admission. Plan: Pt asleep, lethargic, hypotensive, will hold evening meds. 07/21: D/C hydroxyzine due to lack of efficacy. Pt requesting STD testing, says she recently tested positive for syphilis but took antibx. C/o abdominal pain. Start CIWA, ativan taper. Q15 min safety checks, CV 07/22: Will start docusate 100 mg HS. Increase doxepin to 25 mg HS for sleep. Monitor response to medications. Monitor for safety in the milieu. Discharge on stabilization. Patient seen. Chart reviewed. Discussed with team. Obtain collateral contact info?as needed I spent minutes with the patient and/or on the patient floor today, greater than?50% of which was spent counseling/coordinating care. Patient educated on: diagnosis, medication risk/benefits and therapeutic strategies Reason for contiued inpatient stay Substantial Risk for: harm to self, rapid decompensation and med/psych decompensation
[2022-07-22 18:42] LABS: Glucose, Whole Blood 282 mg/dL (60-115)
[2022-07-22 20:43] LABS: Glucose, Whole Blood 245 mg/dL (60-115)
[2022-07-22] MEDS: Docusate Sodium 100 MG CAPSULE PO (21:07)
[2022-07-22] MEDS: Doxepin HCl 25 MG CAPSULE PO (21:09)
[2022-07-22 21:30] VITALS: BP 115/57; PULSE 79; RESP 18; TEMP 36.6; O2SAT 94
[2022-07-23 06:00] VITALS: BP 126/74; PULSE 72; RESP 18; TEMP 36.6; O2SAT 97
[2022-07-23 09:34] LABS: Glucose, Whole Blood 138 mg/dL (60-115)
[2022-07-23] MEDS: Mineral Oil/Petrolatum,White 106 GM Tube 1 APPL TOPICAL (09:48)
[2022-07-23] MEDS: Fluticasone Propionate 250 MCG BLST.W.DEV 1 PUFF INHALE ×2 (09:48→22:09)
[2022-07-23] MEDS: Buprenorphine/Naloxone 8/2 mg FILM 1 FILM SUBLINGUAL (09:48)
[2022-07-23] MEDS: Insulin Glargine,Hum.rec.anlog 100 UNIT/ML 10 ML VIAL 28 UNIT SUBCUT (09:49)
[2022-07-23] MEDS: Atorvastatin Calcium 40 MG TABLET PO (09:49)
[2022-07-23] MEDS: Losartan Potassium 50 MG TABLET 100 MG PO (09:49)
[2022-07-23] MEDS: Folic Acid 1 MG TABLET PO (09:49)
[2022-07-23] MEDS: cephALEXin 500 MG CAPSULE PO ×2 (09:50→22:10)
[2022-07-23] MEDS: hydrALAZINE HCl 25 MG TABLET 37.5 MG PO ×2 (09:50→22:11)
[2022-07-23] MEDS: LORazepam 0.5 MG TABLET PO (09:50)
[2022-07-23] MEDS: Thiamine HCL 100 MG TABLET 50 MG PO (09:50)
[2022-07-23] MEDS: Prazosin HCL 1 MG CAPSULE 2 MG PO ×2 (09:50→22:12)
[2022-07-23] MEDS: Doxycycline Monohydrate 100 MG CAPSULE PO ×2 (09:51→22:11)
[2022-07-23] MEDS: Topiramate 25 MG TABLET PO ×2 (09:51→22:12)
[2022-07-23] MEDS: Apixaban 5 MG TABLET PO ×2 (09:51→22:11)
[2022-07-23] MEDS: ARIPiprazole 20 MG TABLET PO (09:51)
[2022-07-23] MEDS: Cholecalciferol (Vitamin D3) 25 MCG TABLET PO (09:51)
[2022-07-23] MEDS: Acetaminophen 325 MG TABLET 650 MG PO ×2 (10:38→22:12)
--- NOTE | 2022-07-23 11:08 | PC.NURSE ---
patient has signed a 3 day notice. 07/23/22 @ 11:08 am.
[2022-07-23 12:46] LABS: Glucose, Whole Blood 278 mg/dL (60-115)
--- NOTE | 2022-07-23 13:08 | P.PNPSI_ITS ---
Subjective Subjective Date of Service: 07/23/22 Reason For Visit: SI/Depression Interim History: calm, cooperative. discuss presumed BV and empiric Tx, also whether or not she has syphilis. noted Ab test is positive, which indicates she has been exposed to it in the past, not that she has active infection. she did recently have active infection, which was treated with IM PCN. ID consult pending. ordering flagyl 500 BID for 7 days. otherwise feeling reasonably well, interested in rehab referrals. Mental Status Exam Mental Status Exam Narrative: A&O. Casual attire, adequately groomed, overweight, excoriation scabs and scars. fair eye contact, attentive. No Tics or Tremors. No abnormal involuntary movements. Calm, engaged. Non-pressured speech, spontaneous with regular rate and rhythm, normal volume and prosody. No prolonged speech latency or dysarthria. Mood is ?i'm good,? affect is tired, dysphoric. no SI/HI/AVH expressed. Thoughts are coherent, organized. No known cognitive or memory impairment. Insight/ Judgment fair and adequate. Diagnostics Vital Signs (24Hr): Vital Signs - 24 hr 07/22/22 21:30 07/23/22 06:00 Temperature 97.9 F 97.8 F Pulse Rate 79 72 Respiratory Rate 18 18 Blood Pressure 115/57 L 126/74 Pulse Oximetry 94 97 Oxygen Delivery Method Room Air Room Air BMI result Body Mass Index 25.9 Labs Results: 07/19/22 17:07 07/19/22 22:57 Labs: Laboratory Results - last 48 hr 07/21/22 07/21/22 07/21/22 17:24 17:24 17:25 POC Glucose T.pallidum Ab (EIA) Reactive A Chlam trachomat DNA PCR NOT DETECTED HIV 1&2 Ab/P24 Ag 4thGn Nonreactive N.gonorrhoeae DNA (PCR) NOT DETECTED 07/21/22 07/21/22 07/22/22 17:44 21:12 09:44 POC Glucose 266 H 225 H 156 H T.pallidum Ab (EIA) Chlam trachomat DNA PCR HIV 1&2 Ab/P24 Ag 4thGn N.gonorrhoeae DNA (PCR) 07/22/22 07/22/22 07/22/22 12:39 18:38 20:39 POC Glucose 206 H 282 H 245 H T.pallidum Ab (EIA) Chlam trachomat DNA PCR HIV 1&2 Ab/P24 Ag 4thGn N.gonorrhoeae DNA (PCR) 07/23/22 07/23/22 09:29 12:32 POC Glucose 138 H 278 H T.pallidum Ab (EIA) Chlam trachomat DNA PCR HIV 1&2 Ab/P24 Ag 4thGn N.gonorrhoeae DNA (PCR) Imaging Radiology Impressions: ITS Impressions KUB X-Ray 07/22/22 18:50 IMPRESSION: Nonobstructive bowel gas pattern. Moderate stool burden. Medications Medications Current Medications Acetaminophen (Acetaminophen 325 Mg Tablet) 650 mg PO Q6H PRN PRN Reason: Headache/Pain Mild Scale (1-3) Last Admin: 07/23/22 10:38 Dose: 650 mg Al Hydroxide/Mg Hydroxide (Magnesium Hydrox/Alum Hydrox 30 Ml Oral.Susp) 30 ml PO Q6H PRN PRN Reason: Heartburn/Nausea Albuterol Sulfate (Albuterol Sulfate 90 Mcg 8 Gm Inhaler) 2 puff INHALE RQ4H PRN PRN Reason: wheezing Apixaban (Apixaban 5 Mg Tablet) 5 mg PO BID [facility] Last Admin: 07/23/22 09:51 Dose: 5 mg Aripiprazole (Aripiprazole 20 Mg Tablet) 20 mg PO DAILY [facility] Last Admin: 07/23/22 09:51 Dose: 20 mg Atorvastatin Calcium (Atorvastatin Calcium 40 Mg Tablet) 40 mg PO DAILY [facility] Last Admin: 07/23/22 09:49 Dose: 40 mg Buprenorphine/Naloxone (Buprenorphine/Naloxone 8/2 Mg Film) 1 film SUBLINGUAL DAILY [facility] Last Admin: 07/23/22 09:48 Dose: 1 film Cephalexin HCl (Cephalexin 500 Mg Capsule) 500 mg PO BID [facility] Last Admin: 07/23/22 09:50 Dose: 500 mg Dextrose (Dextrose 50 % 25 Gm/50 Ml Syringe) 25 gm IVPUSH Q15M PRN; Protocol PRN Reason: per Hypoglycemia Standing Ord. Docusate Sodium (Docusate Sodium 100 Mg Capsule) 100 mg PO BEDTIME [facility] Last Admin: 07/22/22 21:07 Dose: 100 mg Doxepin HCl (Doxepin Hcl 25 Mg Capsule) 25 mg PO BEDTIME [facility] Last Admin: 07/22/22 21:09 Dose: 25 mg Doxycycline Monohydrate (Doxycycline Monohydrate 100 Mg Capsule) 100 mg PO BID [facility] Last Admin: 07/23/22 09:51 Dose: 100 mg Fluticasone Propionate (Fluticasone Propionate 250 Mcg Blst.W.Dev) 1 puff INHALE RBID [facility] Last Admin: 07/23/22 09:48 Dose: 1 puff Folic Acid (Folic Acid 1 Mg Tablet) 1 mg PO DAILY [facility] Last Admin: 07/23/22 09:49 Dose: 1 mg Glucose (Glucose Gel 15 Gm Gel..Gram.) 15 gm PO Q15M PRN; Protocol PRN Reason: per Hypoglycemia Standing Ord. Hydralazine HCl (Hydralazine Hcl 25 Mg Tablet) 37.5 mg PO BID [facility]; Protocol Last Admin: 07/23/22 09:50 Dose: 37.5 mg Hydroxyzine HCl (Hydroxyzine Hcl 25 Mg Tablet) 25 mg PO Q6H PRN PRN Reason: Anxiety Last Admin: 07/22/22 10:15 Dose: 25 mg Insulin Glargine (Insulin Glargine,Hum.Rec.Anlog 100 Unit/Ml 10 Ml Vial) 28 unit SUBCUT DAILY [facility] Last Admin: 07/23/22 09:49 Dose: 28 unit Insulin Human Lispro (Insulin Lispro 100 Unit/Ml 3 Ml Vial) 0 unit SUBCUT QIDACHS [facility]; Protocol Last Admin: 07/23/22 09:35 Dose: Not Given Insulin Human Lispro (Insulin Lispro 100 Unit/Ml 3 Ml Vial) 10 unit SUBCUT ANGELINA LY@0730 [facility] Last Admin: 07/23/22 09:36 Dose: Not Given Losartan Potassium (Losartan Potassium 50 Mg Tablet) 100 mg PO DAILY [facility]; Protocol Last Admin: 07/23/22 09:49 Dose: 100 mg Magnesium Hydroxide (Milk Of Magnesia 30 Ml Oral.Susp) 30 ml PO DAILY PRN PRN Reason: Constipation Last Admin: 07/21/22 08:52 Dose: 30 ml Metronidazole (Metronidazole 500 Mg Tablet) 500 mg PO BID [facility] Stop: 07/30/22 12:34 Multi-Ingred Cream/Lotion/Oil/Oint (Mineral Oil/Petrolatum,White 106 Gm Tube) 1 appl TOPICAL TID [facility] Last Admin: 07/23/22 09:48 Dose: 1 appl Nicotine Polacrilex (Nicotine Polacrilex 2 Mg Gum) 4 mg BUCCAL Q2H PRN PRN Reason: Nicotine Cravings Ondansetron HCl (Ondansetron Odt 4 Mg Tab.Rapdis) 4 mg TRANSLINGU Q6H PRN PRN Reason: Nausea Prazosin HCl (Prazosin Hcl 1 Mg Capsule) 2 mg PO BID [facility]; Protocol Last Admin: 07/23/22 09:50 Dose: 2 mg Thiamine HCl (Thiamine Hcl 100 Mg Tablet) 50 mg PO DAILY [facility] Last Admin: 07/23/22 09:50 Dose: 50 mg Topiramate (Topiramate 25 Mg Tablet) 25 mg PO BID [facility] Last Admin: 07/23/22 09:51 Dose: 25 mg Trazodone HCl (Trazodone Hcl 100 Mg Tablet) 100 mg PO BEDTIME PRN PRN Reason: Insomnia Vitamin D (Cholecalciferol (Vitamin D3) 25 Mcg Tablet) 25 mcg PO DAILY [facility] Last Admin: 07/23/22 09:51 Dose: 25 mcg Allergies Allergies Allergy/AdvReac Type Severity Reaction Status Date / Time Iodinated Contrast Media Allergy Severe THROAT Verified 08/03/21 14:34 [IV CONTRAST] CLOSING lithium [LITHIUM] Allergy Intermediate AGGRESSION, Verified 08/03/21 14:34 stiffened up & throat closing (moderate to severe) fluoxetine [FLUOXETINE] Allergy Mild ITCHING, Verified 08/03/21 14:34 Suicidal risperidone [From RISPERDAL] Allergy Mild ITCHING Verified 08/03/21 14:34 asparagus [ASPARAGUS] Allergy Unknown unknown Verified 08/03/21 14:34 divalproex sodium Allergy Unknown UNKNOWN, Verified 08/03/21 14:34 [From DEPAKOTE] stiffened up, locked jaw lisinopril [LISINOPRIL] Allergy Unknown COUGH Verified 08/03/21 14:34 olanzapine Allergy Unknown can't Verified 08/03/21 14:34 recall if hives or increased pollen extracts [POLLEN] Allergy Unknown unknown Verified 08/03/21 14:34 tomato [TOMATO] Allergy Unknown UNKNOWN Verified 08/03/21 14:34 quetiapine [From SEROQUEL] AdvReac Intermediate OVERSEDATIO Verified 08/03/21 14:34 N BROCCOLI Allergy Unknown Unknown Uncoded 08/03/21 14:34 FUMARATE Allergy Unknown Unknown Uncoded 08/03/21 14:34 GREEN CHEUNG Allergy Unknown Unknown Uncoded 08/03/21 14:34 TOMATO Allergy Unknown Unknown Uncoded 08/03/21 14:34 Assessment & Plan Assessment & Plan (1) Post traumatic stress disorder (PTSD): Status: Acute Code(s): F43.10 - Post-traumatic stress disorder, unspecified (2) MDD (major depressive disorder), recurrent severe, without psychosis: Status: Acute Code(s): F33.2 - Major depressive disorder, recurrent severe without psychotic features (3) Cocaine use disorder: Status: Acute Code(s): F14.10 - Cocaine abuse, uncomplicated (4) Opioid use disorder: Status: Acute Code(s): F11.90 - Opioid use, unspecified, uncomplicated Plan Emily is a 51 y.o. Who carries a dx of PTSD, MDD recurrent, cocaine use disorder, and opioid use disorder (in remission). She [place] [facility] [facility] [place] from her [facility] due to SI with a plan to OD by using insulin or cut her wrists, increased depression. She has been non-adherent on suboone, using cocaine and drinking alcohol. Of note, has been skin picking. Has been non-adherent on her psych meds x 30 days. She identified stressors as her medical issues including MS. She has not slept in 3-4 days prior to admission. Plan: Pt asleep, lethargic, hypotensive, will hold evening meds. 07/21: D/C hydroxyzine due to lack of efficacy. Pt requesting STD testing, says she recently tested positive for syphilis but took antibx. C/o abdominal pain. Start CIWA, ativan taper. Q15 min safety checks, CV 07/22: Will start docusate 100 mg HS. Increase doxepin to 25 mg HS for sleep. Monitor response to medications. Monitor for safety in the milieu. Discharge on stabilization. Patient seen. Chart reviewed. Discussed with team. Obtain collateral contact info?as needed 07/23: flagyl 500 BID for 7 days for empiric BV Tx. syphilis testing AB POS, which is not a surprise since she had active infection recently, which was treated. awaiting ID consult. otherwise continue current mgmt. I spent ___25___ minutes with the patient and/or on the patient floor today, greater than?50% of which was spent counseling/coordinating care. Reason for contiued inpatient stay Substantial Risk for: harm to self, inability to function and rapid decompensation
[2022-07-23] MEDS: metroNIDAZOLE 500 MG TABLET PO ×2 (13:29→22:11)
[2022-07-23] MEDS: Insulin Lispro 100 UNIT/ML 3 ML VIAL SUBCUT ×3 (13:30→22:08)
[2022-07-23] MEDS: Milk of Magnesia 30 ML ORAL.SUSP PO (14:54)
[2022-07-23] MEDS: Ondansetron ODT 4 MG TAB.RAPDIS TRANSLINGU ×2 (14:54→21:06)
[2022-07-23] MEDS: polyethylene glycoL 3350 17 GM POWD.PACK PO (16:38)
[2022-07-23 17:35] LABS: Glucose, Whole Blood 323 mg/dL (60-115)
[2022-07-23 21:43] LABS: Glucose, Whole Blood 230 mg/dL (60-115)
[2022-07-23] MEDS: Lactulose 20 GM/30 ML SOLUTION PO (22:09)
[2022-07-23] MEDS: Doxepin HCl 25 MG CAPSULE PO (22:11)
[2022-07-23] MEDS: hydrOXYzine HCL 25 MG TABLET PO (22:11)
[2022-07-23] MEDS: Docusate Sodium 100 MG CAPSULE PO (22:11)
[2022-07-23] MEDS: bisacodyL 10 MG SUPP.RECT PR (22:16)
--- NOTE | 2022-07-24 02:51 | PC.NURSE ---
At approximately 2014, pt was complaining of 10/10 pain and chills, nausea and was visibly shaking and c/o pain in right abdomen area that radiates to back, also c/o fecal taste in mouth. Stated that she felt that she was not experiencing bowel issues that it was something different. Notified risk control specialist Ruben. Notified Hospitalist Kennedy, who ordered dulcolax suppository and lactulose. Gave prn of zofran w/good effect. Awaiting results of suppository and lactulose. Pt stated she did have a small BM. Will continue to monitor.
[2022-07-24 06:00] VITALS: BP 130/74; PULSE 70; RESP 16; TEMP 36.7; O2SAT 97
[2022-07-24] MEDS: polyethylene glycoL 3350 17 GM POWD.PACK PO (10:18)
[2022-07-24] MEDS: Mineral Oil/Petrolatum,White 106 GM Tube 1 APPL TOPICAL (10:18)
[2022-07-24] MEDS: Milk of Magnesia 30 ML ORAL.SUSP PO (10:18)
[2022-07-24] MEDS: Fluticasone Propionate 250 MCG BLST.W.DEV 1 PUFF INHALE ×2 (10:18→20:32)
[2022-07-24] MEDS: Losartan Potassium 50 MG TABLET 100 MG PO (10:19)
[2022-07-24] MEDS: Atorvastatin Calcium 40 MG TABLET PO (10:19)
[2022-07-24] MEDS: ARIPiprazole 20 MG TABLET PO (10:19)
[2022-07-24] MEDS: cephALEXin 500 MG CAPSULE PO ×2 (10:19→20:32)
[2022-07-24] MEDS: Folic Acid 1 MG TABLET PO (10:19)
[2022-07-24] MEDS: metroNIDAZOLE 500 MG TABLET PO ×2 (10:19→20:32)
[2022-07-24] MEDS: Doxycycline Monohydrate 100 MG CAPSULE PO ×2 (10:19→20:32)
[2022-07-24] MEDS: Thiamine HCL 100 MG TABLET 50 MG PO (10:19)
[2022-07-24 10:20] LABS: Glucose, Whole Blood 201 mg/dL (60-115)
[2022-07-24] MEDS: Prazosin HCL 1 MG CAPSULE 2 MG PO ×2 (10:20→20:33)
[2022-07-24] MEDS: hydrALAZINE HCl 25 MG TABLET 37.5 MG PO ×2 (10:20→20:32)
[2022-07-24] MEDS: Apixaban 5 MG TABLET PO ×2 (10:21→20:33)
[2022-07-24] MEDS: Insulin Glargine,Hum.rec.anlog 100 UNIT/ML 10 ML VIAL 28 UNIT SUBCUT (10:21)
[2022-07-24] MEDS: Ondansetron ODT 4 MG TAB.RAPDIS TRANSLINGU (10:21)
[2022-07-24] MEDS: Topiramate 25 MG TABLET PO ×2 (10:21→20:32)
[2022-07-24] MEDS: Cholecalciferol (Vitamin D3) 25 MCG TABLET PO (10:21)
[2022-07-24] MEDS: Buprenorphine/Naloxone 8/2 mg FILM 1 FILM SUBLINGUAL (10:31)
[2022-07-24] MEDS: Insulin Lispro 100 UNIT/ML 3 ML VIAL 10 UNIT SUBCUT (11:00)
[2022-07-24] MEDS: Insulin Lispro 100 UNIT/ML 3 ML VIAL SUBCUT ×3 (11:02→18:45)
[2022-07-24] MEDS: Acetaminophen 325 MG TABLET 650 MG PO (12:23)
[2022-07-24 13:00] LABS: Glucose, Whole Blood 196 mg/dL (60-115)
[2022-07-24] MEDS: hydrOXYzine HCL 25 MG TABLET PO (14:13)
[2022-07-24] MEDS: Magnesium Hydrox/Alum Hydrox 30 ML ORAL.SUSP PO (16:23)
[2022-07-24 17:29] LABS: Glucose, Whole Blood 213 mg/dL (60-115)
--- NOTE | 2022-07-24 17:31 | P.PNPSI_ITS ---
Subjective Subjective Date of Service: 07/24/22 Reason For Visit: SI/Depression Interim History: calm, cooperative. reports quantity of vaginal discharge has decreased, but it is still malodorous. c/o RLS, asking about adding mirapex to her regimen. MD suggests decreasing abilify to 15 mg from 20 mg and seeing if that improves things, as well as adding cogentin at HS PRN. per staff, slept better last night, denies SI/SIBI. more visible, social. eating well. c/o conrad blood in stool, not witnessed by staff. Mental Status Exam Mental Status Exam Narrative: A&O. Casual attire, adequately groomed, overweight, excoriation scabs and scars. fair eye contact, attentive. No Tics or Tremors. No abnormal involuntary movements. Calm, engaged. Non-pressured speech, spontaneous with regular rate and rhythm, normal volume and prosody. No prolonged speech latency or dysarthria. Mood is ?i'm good,? affect is flexible, normo-intense. no SI/HI/AVH expressed. Thoughts are coherent, organized. No known cognitive or memory impairment. Insight/ Judgment fair and adequate. Diagnostics Vital Signs (24Hr): Vital Signs - 24 hr 07/24/22 06:00 Temperature 98.1 F Pulse Rate 70 Respiratory Rate 16 Blood Pressure 130/74 Pulse Oximetry 97 Oxygen Delivery Method Room Air BMI result Body Mass Index 25.9 Labs Results: 07/19/22 17:07 07/19/22 22:57 Labs: Laboratory Results - last 48 hr 07/22/22 07/22/22 07/23/22 18:38 20:39 09:29 POC Glucose 282 H 245 H 138 H 07/23/22 07/23/22 07/23/22 12:32 17:31 20:39 POC Glucose 278 H 323 H 230 H 07/24/22 07/24/22 07/24/22 10:14 12:56 17:24 POC Glucose 201 H 196 H 213 H Imaging Radiology Impressions: ITS Impressions KUB X-Ray 07/22/22 18:50 IMPRESSION: Nonobstructive bowel gas pattern. Moderate stool burden. Medications Medications Current Medications Acetaminophen (Acetaminophen 325 Mg Tablet) 650 mg PO Q6H PRN PRN Reason: Headache/Pain Mild Scale (1-3) Last Admin: 07/24/22 12:23 Dose: 650 mg Al Hydroxide/Mg Hydroxide (Magnesium Hydrox/Alum Hydrox 30 Ml Oral.Susp) 30 ml PO Q6H PRN PRN Reason: Heartburn/Nausea Last Admin: 07/24/22 16:23 Dose: 30 ml Albuterol Sulfate (Albuterol Sulfate 90 Mcg 8 Gm Inhaler) 2 puff INHALE RQ4H PRN PRN Reason: wheezing Apixaban (Apixaban 5 Mg Tablet) 5 mg PO BID [facility] Last Admin: 07/24/22 10:21 Dose: 5 mg Aripiprazole (Aripiprazole 15 Mg Tablet) 15 mg PO DAILY [facility] Atorvastatin Calcium (Atorvastatin Calcium 40 Mg Tablet) 40 mg PO DAILY [facility] Last Admin: 07/24/22 10:19 Dose: 40 mg Benztropine Mesylate (Benztropine Mesylate 1 Mg Tablet) 1 mg PO BEDTIME PRN PRN Reason: EPS/RLS Buprenorphine/Naloxone (Buprenorphine/Naloxone 8/2 Mg Film) 1 film SUBLINGUAL DAILY [facility] Last Admin: 07/24/22 10:31 Dose: 1 film Cephalexin HCl (Cephalexin 500 Mg Capsule) 500 mg PO BID [facility] Last Admin: 07/24/22 10:19 Dose: 500 mg Dextrose (Dextrose 50 % 25 Gm/50 Ml Syringe) 25 gm IVPUSH Q15M PRN; Protocol PRN Reason: per Hypoglycemia Standing Ord. Docusate Sodium (Docusate Sodium 100 Mg Capsule) 100 mg PO BEDTIME [facility] Last Admin: 07/23/22 22:11 Dose: 100 mg Doxepin HCl (Doxepin Hcl 25 Mg Capsule) 25 mg PO BEDTIME [facility] Last Admin: 07/23/22 22:11 Dose: 25 mg Doxycycline Monohydrate (Doxycycline Monohydrate 100 Mg Capsule) 100 mg PO BID [facility] [place] Last Admin: 07/24/22 10:19 Dose: 100 mg Fluticasone Propionate (Fluticasone Propionate 250 Mcg Blst.W.Dev) 1 puff INHALE RBID [facility] Last Admin: 07/24/22 10:18 Dose: 1 puff Folic Acid (Folic Acid 1 Mg Tablet) 1 mg PO DAILY [facility] Last Admin: 07/24/22 10:19 Dose: 1 mg Glucose (Glucose Gel 15 Gm Gel..Gram.) 15 gm PO Q15M PRN; Protocol PRN Reason: per Hypoglycemia Standing Ord. Hydralazine HCl (Hydralazine Hcl 25 Mg Tablet) 37.5 mg PO BID [facility]; Protocol Last Admin: 07/24/22 10:20 Dose: 37.5 mg Hydroxyzine HCl (Hydroxyzine Hcl 25 Mg Tablet) 25 mg PO Q6H PRN PRN Reason: Anxiety Last Admin: 07/24/22 14:13 Dose: 25 mg Insulin Glargine (Insulin Glargine,Hum.Rec.Anlog 100 Unit/Ml 10 Ml Vial) 28 unit SUBCUT DAILY [facility] Last Admin: 07/24/22 10:21 Dose: 28 unit Insulin Human Lispro (Insulin Lispro 100 Unit/Ml 3 Ml Vial) 0 unit SUBCUT QIDACHS [facility]; Protocol Last Admin: 07/24/22 14:04 Dose: 2 unit Insulin Human Lispro (Insulin Lispro 100 Unit/Ml 3 Ml Vial) 10 unit SUBCUT DAILY@0730 [facility] Last Admin: 07/24/22 11:00 Dose: 10 unit Losartan Potassium (Losartan Potassium 50 Mg Tablet) 100 mg PO DAILY [facility]; Protocol Last Admin: 07/24/22 10:19 Dose: 100 mg Magnesium Hydroxide (Milk Of Magnesia 30 Ml Oral.Susp) 30 ml PO DAILY PRN PRN Reason: Constipation Last Admin: 07/24/22 10:18 Dose: 30 ml Metronidazole (Metronidazole 500 Mg Tablet) 500 mg PO BID [facility] Stop: 07/30/22 12:34 Last Admin: 07/24/22 10:19 Dose: 500 mg Multi-Ingred Cream/Lotion/Oil/Oint (Mineral Oil/Petrolatum,White 106 Gm Tube) 1 appl TOPICAL TID [facility] [place] Last Admin: 07/24/22 15:30 Dose: Not Given Nicotine Polacrilex (Nicotine Polacrilex 2 Mg Gum) 4 mg BUCCAL Q2H PRN PRN Reason: Nicotine Cravings Ondansetron HCl (Ondansetron Odt 4 Mg Tab.Rapdis) 4 mg TRANSLINGU Q6H PRN PRN Reason: Nausea Last Admin: 07/24/22 10:21 Dose: 4 mg Polyethylene Glycol (Polyethylene Glycol 3350 17 Gm Powd.Pack) 17 gm PO DAILY PRN PRN Reason: Constipation Last Admin: 07/24/22 10:18 Dose: 17 gm Prazosin HCl (Prazosin Hcl 1 Mg Capsule) 2 mg PO BID [facility] [place]; Protocol Last Admin: 07/24/22 10:20 Dose: 2 mg Thiamine HCl (Thiamine Hcl 100 Mg Tablet) 50 mg PO DAILY [facility] [place] Last Admin: 07/24/22 10:19 Dose: 50 mg Topiramate (Topiramate 25 Mg Tablet) 25 mg PO BID [facility] Last Admin: 07/24/22 10:21 Dose: 25 mg Trazodone HCl (Trazodone Hcl 100 Mg Tablet) 100 mg PO BEDTIME PRN PRN Reason: Insomnia Vitamin D (Cholecalciferol (Vitamin D3) 25 Mcg Tablet) 25 mcg PO DAILY [facility] Last Admin: 07/24/22 10:21 Dose: 25 mcg Allergies Allergies Allergy/AdvReac Type Severity Reaction Status Date / Time Iodinated Contrast Media Allergy Severe THROAT Verified 08/03/21 14:34 [IV CONTRAST] CLOSING lithium [LITHIUM] Allergy Intermediate AGGRESSION, Verified 08/03/21 14:34 stiffened up & throat closing (moderate to severe) fluoxetine [FLUOXETINE] Allergy Mild ITCHING, Verified 08/03/21 14:34 Suicidal risperidone [From RISPERDAL] Allergy Mild ITCHING Verified 08/03/21 14:34 asparagus [ASPARAGUS] Allergy Unknown unknown Verified 08/03/21 14:34 divalproex sodium Allergy Unknown UNKNOWN, Verified 08/03/21 14:34 [From DEPAKOTE] stiffened up, locked jaw lisinopril [LISINOPRIL] Allergy Unknown COUGH Verified 08/03/21 14:34 olanzapine Allergy Unknown can't Verified 08/03/21 14:34 recall if hives or increased pollen extracts [POLLEN] Allergy Unknown unknown Verified 08/03/21 14:34 tomato [TOMATO] Allergy Unknown UNKNOWN Verified 08/03/21 14:34 quetiapine [From SEROQUEL] AdvReac Intermediate OVERSEDATIO Verified 08/03/21 14:34 N BROCCOLI Allergy Unknown Unknown Uncoded 08/03/21 14:34 FUMARATE Allergy Unknown Unknown Uncoded 08/03/21 14:34 GREEN CHEUNG Allergy Unknown Unknown Uncoded 08/03/21 14:34 TOMATO Allergy Unknown Unknown Uncoded 08/03/21 14:34 Assessment & Plan Assessment & Plan (1) Post traumatic stress disorder (PTSD): Status: Acute Code(s): F43.10 - Post-traumatic stress disorder, unspecified (2) MDD (major depressive disorder), recurrent severe, without psychosis: Status: Acute Code(s): F33.2 - Major depressive disorder, recurrent severe without psychotic features (3) Cocaine use disorder: Status: Acute Code(s): F14.10 - Cocaine abuse, uncomplicated (4) Opioid use disorder: Status: Acute Code(s): F11.90 - Opioid use, unspecified, uncomplicated Plan Emily is a 51 y.o. Who carries a dx of PTSD, MDD recurrent, cocaine use disorder, and opioid use disorder (in remission). She presented to [facility] [place] [facility] on 07/19/2022 from her [facility] Clinic due to SI with a plan to OD by using insulin or cut her wrists, increased depression. She has been non-adherent on suboone, using cocaine and drinking alcohol. Of note, has been skin picking. Has been non-adherent on her psych meds x 30 days. She identified stressors as her medical issues including MS. She has not slept in 3-4 days prior to admission. Plan: Pt asleep, lethargic, hypotensive, will hold evening meds. 07/21: D/C hydroxyzine due to lack of efficacy. Pt requesting STD testing, says she recently tested positive for syphilis but took antibx. C/o abdominal pain. Start CIWA, ativan taper. Q15 min safety checks, CV 07/22: Will start docusate 100 mg HS. Increase doxepin to 25 mg HS for sleep. Monitor response to medications. Monitor for safety in the milieu. Discharge on stabilization. Patient seen. Chart reviewed. Discussed with team. Obtain collateral contact info?as needed 07/23: flagyl 500 BID for 7 days for empiric BV Tx. syphilis testing AB POS, which is not a surprise since she had active infection recently, which was nikolay garcia. awaiting ID consult. otherwise continue current mgmt. 07/24: decrease abilify to 15 mg QHS. add cogentin 1 mg QHS PRN. check CBC, have pt show stool to staff prior to flushing. I spent ___20___ minutes with the patient and/or on the patient floor today, greater than?50% of which was spent counseling/coordinating care. Reason for contiued inpatient stay Substantial Risk for: inability to function and med/psych decompensation
[2022-07-24 18:00] VITALS: BP 115/66; PULSE 70; RESP 16; TEMP 36.4; O2SAT 97
[2022-07-24 18:01] LABS: MANUAL DIFF FLAG NO
[2022-07-24 18:02] LABS: Basophils Absolute Auto 0.1 X10*3/uL (0.0-0.2); Basophils Percent Auto 0.9 % (0-2); Eosinophils Absolute Auto 0.3 X10*3/uL (0.0-0.4); Eosinophils Percent Auto 4.2 % (0-4); Hematocrit 42.9 % (37.0-47.0); Hemoglobin 14.1 g/dl (12.0-16.0); Imm Gran Abs Auto 0.02 X10*3/uL (0.00-0.03); Imm Gran Pct Auto 0.3 % (0.0-0.4); Lymphocytes Absolute Auto 1.9 X10*3/uL (1.2-4.9); Lymphocytes Percent Auto 29.7 % (20-40); Mean Corpuscular HGB Conc 32.9 g/dl (31.0-35.0); Mean Corpuscular Hemoglobin 27.6 pg (27.0-33.0); Mean Platelet Volume 10.1 fL (9.4-12.3); Monocytes Absolute Auto 0.4 X10*3/uL (0.1-1.2); Monocytes Percent Auto 5.7 % (2-11); Neutrophils Absolute Auto 3.8 x10*3/uL (2.0-8.3); Neutrophils Percent Auto 59.2 % (45-73); Platelet Count 207 X10*3/uL (160-400); Red Blood Count 5.11 X10*6/uL (4.20-5.50); Red Cell Distribution Width 11.9 % (11.0-16.0); White Blood Count 6.5 X10*3/uL (4.8-10.8)
[2022-07-24] MEDS: Loperamide HCl 2 MG CAPSULE PO (20:14)
[2022-07-24] MEDS: Doxepin HCl 25 MG CAPSULE PO (20:33)
[2022-07-24 21:31] LABS: Glucose, Whole Blood 121 mg/dL (60-115)
[2022-07-25] MEDS: Loperamide HCl 2 MG CAPSULE PO ×2 (00:06→11:43)
[2022-07-25 08:25] VITALS: BP 112/69; PULSE 77; RESP 17; TEMP 36.4; O2SAT 98
[2022-07-25] MEDS: Mineral Oil/Petrolatum,White 106 GM Tube 1 APPL TOPICAL (08:25)
[2022-07-25] MEDS: Fluticasone Propionate 250 MCG BLST.W.DEV 1 PUFF INHALE (08:25)
[2022-07-25] MEDS: hydrALAZINE HCl 25 MG TABLET 37.5 MG PO (08:27)
[2022-07-25] MEDS: Buprenorphine/Naloxone 8/2 mg FILM 1 FILM SUBLINGUAL (08:27)
[2022-07-25] MEDS: Doxycycline Monohydrate 100 MG CAPSULE PO (08:28)
[2022-07-25] MEDS: ARIPiprazole 15 MG TABLET PO (08:28)
[2022-07-25] MEDS: Folic Acid 1 MG TABLET PO (08:28)
[2022-07-25] MEDS: Losartan Potassium 50 MG TABLET 100 MG PO (08:29)
[2022-07-25] MEDS: cephALEXin 500 MG CAPSULE PO (08:30)
[2022-07-25] MEDS: Thiamine HCL 100 MG TABLET 50 MG PO (08:30)
[2022-07-25] MEDS: Topiramate 25 MG TABLET PO (08:30)
[2022-07-25] MEDS: metroNIDAZOLE 500 MG TABLET PO (08:30)
[2022-07-25] MEDS: Cholecalciferol (Vitamin D3) 25 MCG TABLET PO (08:31)
[2022-07-25] MEDS: Apixaban 5 MG TABLET PO (08:31)
[2022-07-25] MEDS: Atorvastatin Calcium 40 MG TABLET PO (08:31)
[2022-07-25 08:32] LABS: Glucose, Whole Blood 265 mg/dL (60-115)
[2022-07-25] MEDS: Insulin Lispro 100 UNIT/ML 3 ML VIAL SUBCUT (09:23)
[2022-07-25] MEDS: Insulin Lispro 100 UNIT/ML 3 ML VIAL 10 UNIT SUBCUT (09:23)
[2022-07-25] MEDS: Insulin Glargine,Hum.rec.anlog 100 UNIT/ML 10 ML VIAL 28 UNIT SUBCUT (09:24)
[2022-07-25] MEDS: Acetaminophen 325 MG TABLET 650 MG PO (11:35)
[2022-07-25 11:56] LABS: Glucose, Whole Blood 130 mg/dL (60-115)
[2022-07-25 12:40] LABS: Glucose, Whole Blood 122 mg/dL (60-115)
--- NOTE | 2022-07-25 13:36 | PM.PSYDC ---
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 10 0RF albuterol sulfate [Ventolin HFA] 90 mcg/actuation Hfa Aerosol Inhaler 2 puff inhalation RQ4H PRN (Reason: wheezing) Qty: 0 0RF aripiprazole 15 mg Tablet 15 mg PO DAILY 30 Days Qty: 30 0RF Continued fluticasone propionate [Flovent HFA] 220 mcg/actuation HFA aerosol inhaler 1 puff inhalation BID buprenorphine-naloxone [Suboxone] 8-2 mg film 1 strip sublingual DAILY hydralazine 25 mg tablet 1.5 tab PO BID insulin glargine [Lantus Solostar U-100 Insulin] 100 unit/mL (3 mL) insulin pen 28 unit subcut QAM atorvastatin 40 mg tablet 1 tab PO DAILY topiramate 25 mg tablet 1 tab PO BID trazodone 100 mg tablet 1 tab PO BEDTIME PRN (Reason: Insomnia) losartan 100 mg tablet 1 tab PO DAILY prazosin 2 mg capsule 1 cap PO BID cholecalciferol (vitamin D3) [Vitamin D3] 25 mcg (1,000 unit) capsule 1 cap PO DAILY Trulicity 1.5 mg/0.5 mL pen injector 1.5 mg subcut QWEEK (DME) AeroEclipse II Nebulizer Misc See Rx Instructions .ROUTE .MEDSUPPLY Qty: 1 Rx Instructions: As directed (DME) lancets [FreeStyle Lancets] 28 gauge misc See Rx Instructions .ROUTE .MEDSUPPLY Qty: 100 Rx Instructions: As directed (DME) FreeStyle Lite Strips Strip See Rx Instructions .ROUTE .MEDSUPPLY Qty: 10 Rx Instructions: As directed (DME) pen needle, diabetic [Comfort EZ Pen [place]] 32 gauge x 5/32 needle See Rx Instructions .ROUTE .MEDSUPPLY Qty: 50 Rx Instructions: As directed Eliquis 5 mg tablet 5 mg PO BID Discontinued doxepin 10 mg capsule 1 cap PO BEDTIME aripiprazole 20 mg tablet 1 tab PO DAILY Discharge Orders: Discharge Order (Routine); Ordered 07/25/22 Ordered By: Henry Miranda Diet: Advance to usual diet Activity on Discharge: As tolerated Stand Alone Forms: Patient Portal Discharge page, Community Support Care Plan Goals: remain safe and sober in the outpatient treatment setting Health Concerns: Diabetes Mellitus Bacterial Vaginosis Abdominal Pain Diarrhea Plan of Treatment: take medications as prescribed, attend appointments as scheduled Assessment: not at imminent risk of harm to self or others
[2022-07-26 12:07] LABS: BV Int Neg Control Negative (Negative); BV Int Pos Control Positive (Positive)
== END 2022-07-25 14:23 | disposition home or self-care (01) | DRG 751 ==
LOC: HO.ED 07-20 12:52 → HO.PADLT16 07-20 15:23
PROVIDERS: Emergency Medicine; Admitting Provider Psychiatry & Neurology Psychiatry; Emergency Provider Emergency Medicine; PCP Family Medicine; Visit Provider Registered Nurse
DX: F33.2 Major depressive disorder, recurrent severe without psychotic features (principal); Z91.14 Patient's other noncompliance with medication regimen; E83.42 Hypomagnesemia; F11.20 Opioid dependence, uncomplicated; F43.10 Post-traumatic stress disorder, unspecified; F14.10 Cocaine abuse, uncomplicated; Z20.822 Contact with and (suspected) exposure to COVID-19; Z79.01 Long term (current) use of anticoagulants; Z91.041 Radiographic dye allergy status; Z79.899 Other long term (current) drug therapy
CPT/HCPCS: 36415; 74018; 80048; 80076; 80307; 81001; 82077; 82947; 83690; 83735; 85025; 86780; 87389; 87480; 87491; 87510; 87591; 87635; 87660; 90792; 93005; 99285; J3475

== ENCOUNTER 2023-03-31 16:29 | Outpatient (REF) | payer MEDICAID, SELFPAY ==
[2023-03-31 17:11] LABS: Amphetamine Screen Urine Not Detected (Not Detect); Barbiturates, Urine Not Detected (Not Detect); Benzodiazepines Screen Urine Not Detected (Not Detect); Cannabinoid Screen Urine Not Detected (Not Detect); Cocaine Screen Urine Not Detected (Not Detect); Fentanyl, urine Not Detected (Not Detect); Opiate Screen Urine Not Detected (Not Detect); Phencyclidine Screen Urine Not Detected (Not Detect)
== END 2023-03-31 16:30 | disposition home or self-care (01) ==
LOC: HO.HHCLNP 16:29
PROVIDERS: Visit Provider Emergency Medicine
DX: F11.20 Opioid dependence, uncomplicated (principal)
CPT/HCPCS: 80307

== ENCOUNTER 2023-04-07 11:55 | Outpatient (REF) | payer MEDICAID, SELFPAY ==
[2023-04-13 08:31] LABS: Fentanyl, Ur NEGATIVE
[2023-04-13 08:32] LABS: Norfentanyl, Ur NEGATIVE
== END 2023-04-07 11:56 | disposition home or self-care (01) ==
LOC: HO.HHCLNP 11:55
PROVIDERS: Visit Provider Emergency Medicine
DX: F11.20 Opioid dependence, uncomplicated (principal)
CPT/HCPCS: 80354

== ENCOUNTER 2023-05-11 17:55 | Inpatient (IN) | payer OTHER, SELFPAY ==
--- NOTE | ~2023-05-11 | CT_ITS ---
EXAMINATION: CT ABDOMEN WITHOUT CONTRAST CLINICAL INFORMATION: Severe right upper quadrant pain COMPARISON: Previous CT of the abdomen and pelvis February 2020, renal and bladder ultrasound January 2021 and KUB July 2022 TECHNIQUE: Contiguous axial thin section helical images of the abdomen were performed without contrast. The data set was reformatted in the coronal and sagittal planes and reviewed on an independent workstation. This CT examination was performed using dose optimization techniques as appropriate, variously including the following: *Automated exposure control *Adjustment of mA and/or kV according to patient size (this includes techniques or standardized protocols for targeted exams where dose is matched to indication/reason for exam; i.e. extremities or head) *Use of iterative reconstruction technique DLP: 394 mGy-cm FINDINGS: LUNG BASES: Normal LIVER, GALLBLADDER, BILIARY TREE: Normal liver and biliary tree. The gallbladder has been removed. PANCREAS: Normal SPLEEN: Normal ADRENAL GLANDS AND KIDNEYS: Normal adrenal glands. 1 cm low-attenuation lesion in the lower pole of the left kidney. This is similar to previous exam. This has negative Hounsfield units and is suggestive of a benign angiomyolipoma. BOWEL LOOPS: Moderate stool burden questionable for constipation. LYMPH NODES: Normal. VASCULAR: Unremarkable. BONES: Degenerative changes of the spine. CT/CT abdomen wo IV con IMPRESSION: No acute findings. Stable 1 cm left renal angiomyolipoma. Moderate stool burden questionable for constipation Fleischner guidelines were followed.
--- NOTE | ~2023-05-11 | US_ITS ---
EXAMINATION: US ABDOMEN LIMITED CLINICAL INFORMATION: Right upper quadrant pain, right breast pain, cough, congestion. COMPARISON: CT abdomen without contrast dated 05/12/2023. KUBs dated 07/22/2022 and 03/03/2021. Renals only ultrasounds dated 02/13/2020 and 11/18/2019. TECHNIQUE: Real-time imaging of the right upper quadrant abdominal viscera and right rib area under right breast. FINDINGS: Liver echotexture is normal. No focal liver lesion. The liver is normal in size and contour. The gallbladder has been removed. There is no biliary duct dilatation. The common bile duct measures 0.4 cm. The pancreas is normal. Right kidney is normal. There is a small periportal lymph node measuring 1.7 x 2.8 x 2.4 cm. There is no ascites. Imaging of the area of patient pain under the right breast demonstrates no chest or abdominal wall fluid collection, mass or hernia. US/US abdomen limited IMPRESSION: No acute findings. Small periportal lymph node.
--- NOTE | ~2023-05-11 | XR_ITS ---
EXAMINATION: XR CHEST CLINICAL INFORMATION: Right upper quadrant pain, congestion and cough COMPARISON: Previous chest x-ray 05/14/2023 TECHNIQUE: 2 views of the chest were obtained. FINDINGS: The cardiac and mediastinal contours are stable. There is scarring or subsegmental atelectasis at the left lung base similar to previous exam. The lungs are otherwise clear. No pleural effusion or pneumothorax. No free air. Degenerative changes of the spine. XR/XR chest 2V IMPRESSION: No evidence for acute disease in the chest. Scarring or subsegmental atelectasis at the left lung base similar to recent exam.
--- NOTE | ~2023-05-11 | XR_ITS ---
EXAMINATION: XR RIBS, RIGHT CLINICAL INFORMATION: Trauma COMPARISON: Previous chest x-ray March [address] of the abdomen and pelvis from earlier the same day TECHNIQUE: 3 views of the right ribs and one view of the chest were obtained. FINDINGS: Subsegmental atelectasis at the left lung base. The lungs are otherwise clear. No consolidation, pneumothorax, or pleural effusion. The cardiomediastinal silhouette and pulmonary vasculature are normal. Degenerative changes of the thoracic spine. Postsurgical changes to the lower left cervical spine. Ribs are intact. No fractures are identified. XR/XR ribs RT min 3V w CXR1V IMPRESSION: Unremarkable examination.
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
--- OUTSIDE RECORDS SUMMARY | 2023-05-11 17:58 | XMS_ITS | Continuity of Care Document ---
Author Name Unknown Organization [facility] Address [address] [place] [address], 3[address] d Floor, [address] [place] [id number]- Care Team Providers Care Sexual Health Physician Name Role Phone Ken VILLELA, Tyesha Primary Care Physician [facility] Date(s): 11/04/20 - 12/04/20 [facility] [address] [facility], 3rd Floor, [address] [place] [phone]- Allergies, Adverse Reactions, Alerts Substance Reaction Severity [...] 10/02/19 12:34:00 EST, Route to Pharmacy Electronically, [facility] [place], [place] -, 159, cm, 10/01/19 13:59:00 EST, [...] 10:48:25 EST Start Date: 07/29/19 Status: Ordered [place] Thyroid 60 mg oral tablet 60 mg, [...] 1 Refills, Maintenance, 03/02/20 16:12:00 EDT, Tablet, [facility] [place], [place] -, 159, cm, 02/28/20 14:16:00 EDT, [...] 4-Mild concentric LVH. ECHO 02-08-12 5MRI 08-20-15 ([facility]-scanned): disc desiccatios, disc bulges and [...] 01/14, wrist cutting 9-See MRI done at [facility] 12-09-2015 10-T4-T8 disc bulging with mild left neural foraminal narrowing. MRI 01-29-16 (scanned-done at [facility]) 11-by ex partner, (father of children) Social History Social History Type Response Smoking Status Cigars or pipes megan y within last 30 days entered on: 07/29/19 Sex Female
--- OUTSIDE RECORDS SUMMARY | 2023-05-11 17:58 | XMS_ITS | Continuity of Care Document ---
Author Name Unknown Organization [facility] Address [address] [place] [address]- Care Team Providers Care Extraction Machine Operator Name Role Phone Ken VILLELA, Tyesha Primary Care Physician [facility] Date(s): 08/19/22 - 09/18/22 [facility] [address] [place] [address]- Attending Physician: Haley Lorenzo Admitting Physician: AdmHaley liriano Referring Physician: AdmtrHaley Allergies, Adverse Reactions, Alerts Substance Reaction Severity Status lithium Active lisinopril Active Depakote Active Risperdal Active Cats Active Dogs Active Other Food [...] EST, Tablet Start Date: 07/29/19 Status: Ordered Aripiprazole 20 mg, By Mouth, Daily, Refills 0, Maintenance, 02/03/22 16:19:00 EDT, Partial fill upon patient request if the prescription is for a schedule II opioid drug. Start Date: 02/03/22 Status: Ordered ARIPiprazole 5 mg oral tablet 5 mg, 1, tablet, By Mouth, Daily, Refills 0, Maintenance, 07/29/19 10:48:25 EST Start Date: 07/29/19 Status: Ordered [place] Thyroid 60 mg oral tablet 60 mg, [...] Maintenance, Tablet Start Date: 01/15/19 Status: Ordered atorvastatin 40 mg oral tablet 1 tablet = 40 mg, By Mouth, Daily, # 90 tablet, 0 Refills, Maintenance, 02/03/22 0:48:00 EDT, Tablet, Partial fill upon patient request if the prescription is for a schedule II opioid drug. Start Date: 02/03/22 Status: Ordered cetirizine 10 mg oral tablet [...] opioid drug. Start Date: 02/03/22 Status: Ordered HydrOXYzine = 50 mg, By Mouth, 3 times a day, PRN as needed for anxiety, 0 Refills, Maintenance, 02/03/22 16:20:00 EDT, Partial fill upon patient request if the prescription is for a schedule II opioid drug. Start Date: 02/03/22 Status: Ordered Lantus Inj = 20 units, Subcutaneous Infusion, Daily, 0 Refills, Maintenance, 07/29/19 10:48:51 EST Start Date: 07/29/19 Status: Ordered Lantus Solostar Pen 100 units/mL subcutaneous solution = 20 units, Subcutaneous Injection, Daily at bedtime, # 10 mL, 0 Refills, Maintenance, 02/03/22 2:01:00 EDT, Solution, Partial fill upon patient request if the prescription is for a schedule II opioid drug. Start Date: 02/03/22 Status: Ordered LORazepam 0.5 mg oral tablet TAKE ONE TABLET BY MOUTH NEEDED FOR SEVERE ANXIETY Start Date: 02/28/20 Status: Ordered losartan 25 mg oral tablet 50 mg, 2, tablet, By Mouth, Daily, # 15 tablet, Refills 0, Tot. Refills 0, Maintenance, 07/23/18 20:59:41 EST, Print Requisition Start Date: 07/23/18 Status: Ordered losartan 50 mg oral tablet 1 tablet = 50 mg, By Mouth, Daily, # 30 tablet, 0 Refills, Maintenance, 02/03/22 0:47:00 EDT, Tablet, Partial fill upon patient request if the prescription is for a schedule II opioid drug. Start Date: 02/03/22 Status: Ordered metFORMIN 1000 mg oral tablet 1 tablet = 1,000 mg, By Mouth, 2 times a day, # 180 tablet, 0 Refills, Maintenance, 01/15/19 15:49:40 EDT, Tablet Start Date: 01/15/19 Status: Ordered metFORMIN 1000 mg oral tablet 1 tablet = 1,000 mg, By Mouth, 2 times a day, # 180 tablet, 0 Refills, Maintenance, 02/03/22 0:48:00 EDT, Tablet, Partial fill upon patient request if the prescription is for a schedule II opioid drug. Start Date: 02/03/22 Status: Ordered methocarbamol 750 mg oral tablet [...] a day Start Date: 06/22/21 Status: Ordered prazosin 1 mg oral capsule 1 mg, 1, capsule, By Mouth, 2 times a day, Refills 0, Maintenance, 02/03/22 16:19:00 EDT, Partial fill upon patient request if the prescription is for a schedule II opioid drug. Start Date: 02/03/22 Status: Ordered propranolol 20 mg oral tablet 20 mg, 1, tablet, By Mouth, 2 times a day, PRN, Refills 0, Maintenance, Anxiety, 02/03/22 16:15:00 EDT, Partial fill upon patient request if the prescription is for a schedule II opioid drug. Start Date: 02/03/22 Status: Ordered Suboxone 8 mg-2 mg sublingual film See Instructions, 1 film Sublingual in am and 1/2 at night, 0 Refills, Maintenance, 07/29/19 10:47:51 EST, Film Start Date: 07/29/19 Status: Ordered Topiramate = 25 mg, By Mouth, Daily, 0 Refills, Maintenance, 02/03/22 16:22:00 EDT, Partial fill upon patient request if the prescription is for a schedule II opioid drug. Start Date: 02/03/22 Status: Ordered Topiramate = 100 mg, By Mouth, Daily at bedtime, 0 Refills, Maintenance, 02/03/22 16:23:00 EDT, Partial fill upon patient request if the prescription is for a schedule II opioid drug. Start Date: 02/03/22 Status: Ordered topiramate 100 mg oral capsule, extended release 1 capsule = 100 mg, By Mouth, Daily, 0 Refills, Maintenance, 07/29/19 10:50:41 EST Start Date: 07/29/19 Status: Ordered traZODone 100 mg oral tablet TAKE 1 TABLET BY MOUTH AT BEDTIME Start Date: 01/15/19 Status: Ordered traZODone 100 mg oral tablet 100 mg, 1, tablet, By Mouth, Daily at bedtime, Refills 0, Maintenance, 02/03/22 16:17:00 EDT, Partial fill upon patient request if the prescription is for a schedule II opioid drug. Start Date: 02/03/22 Status: Ordered Trulicity Pen 1.5 mg/0.5 mL [...] Confirmed Active Obese class I Confirmed Active Post traumatic stress disorder (PTSD) [...] 4-Mild concentric LVH. ECHO 02-08-12 5MRI 08-20-15 ([facility]-scanned): disc desiccatios, disc bulges and mild [...] 01/14, wrist cutting 9-See MRI done at [facility] 12-09-2015 10-T4-T8 disc bulging with mild left neural foraminal narrowing. MRI 01-29-16 (scanned-done at [facility]) 11-by ex partner, (father of children) Social History Social History Type Response Smoking Status 5-9 cigarettes (betw een 1/4 to 1/2 pack)/day in last 30 days entered on: 02/03/22 Sex Patient Care team information Care Team Personnel Name: Yana Rogers RN Position: [facility] ED RN W/OE and Tasks Member Role: Primary Care Nurse Name: Kinjal Vivar RN Position: S RN Member Role: Primary Care Nurse Name: Augusta Cespedes RN Position: [facility] RN Member Role: Primary Care Nurse Name: Kyra Lockhart RN Position: [facility] RN Member Role: Primary Care Nurse Name: Jill Allen RN Position: [facility] RN Member Role: Primary Care Nurse Name: Donna Beltre RN Position: [facility] RN Member Role: Primary Care Nurse Name: Carmita Canas RN Position: [facility] Rad RN Member Role: Primary Care Nurse Name: Jasmyne Nice Position: [facility] RN Member Role: Primary Care Nurse Name: Ariane Pritchett RN Position: [facility] RN Supv Member Role: Primary Care Nurse Name: Jolene Bruner RN Position: [facility] RN Member Role: Primary Care Nurse Name: Melissa Urias RN Position: [facility] RN Member Role: Primary Care Nurse Name: Argenis Scruggs RN Position: [facility] ED RN W/OE and Tasks Member Role: Primary Care Nurse Name: Ada Harris RN Position: [facility] RN Member Role: Primary Care Nurse Name: Radha Montes De Oca RN Position: [facility] RN Member Role: Primary Care Nurse Name: Mira Rajan RN Position: [facility] SN RN Member Role: Primary Care Nurse Name: Nola Bowman RN Position: [facility] RN Member Role: Primary Care Nurse Name: Anita De Jesus RN Position: [facility] ED RN W/OE and Tasks Member Role: Primary Care Nurse Name: Suzi Cowan RN Position: [facility] RN Member Role: Primary Care Nurse Name: Rebeka Ontiveros RN Position: [facility] RN Member Role: Primary Care Nurse Name: Jeremiah Al RN Position: [facility] RN Member Role: Primary Care Nurse Name: Regine Guerin RN Position: [facility] RN Member Role: Primary Care Nurse Name: Jocelyn Cristobal RN Position: [facility] SN RN Member Role: Primary Care Nurse Name: Dedra Dumont RN Position: [facility] RN Member Role: Primary Care Nurse Name: Apolonia Easton RN Position: [facility] RN Supv Member Role: Primary Care Nurse Name: Estefania Bhatti RN Position: [facility] RN Member Role: Primary Care Nurse Name: Eulogio Enciso RN Position: [facility] RN Member Role: Primary Care Nurse Name: Kamala Abdi RN Position: [facility] RN Member Role: Primary Care Nurse Name: Aquilino Sarah RN Position: [facility] SN RN Member Role: Primary Care Nurse Name: Stephanie Milian RN Position: [facility] RN Member Role: Primary Care Nurse Name: Concepcion Mondragon RN Position: [facility] RN Member Role: Primary Care Nurse Name: Marcia Kuhn RN Position: [facility] RN Member Role: Primary Care Nurse Name: Adrián Wilcox RN Position: [facility] RN Member Role: Primary Care Nurse Name: Ada Aleman RN Position: [facility] ED RN W/OE and Tasks Member Role: Primary Care Nurse Name: Sharlene Macias Position: [facility] Outreach Member Role: Lifetime Consulting Physician Name: Tyesha Rogers MD Position: [facility] Outreach Member Role: PCP Address: Address: [address] [place] [id number]- Name: La Miranda RN Position: [facility] Gas Treater Member Role: Primary Care Nurse Name: Sunita Anthony RN Position: [facility] RN Member Role: Primary Care Nurse Name: Glendy Gandara RN Position: [facility] SN RN Member Role: Primary Care Nurse Name: Melanie Martinez RN Position: [facility] Onco RN Member Role: Primary Care Nurse Name: Rima Soliz RN Position: [facility] Gas Treater Member Role: Primary Care Nurse Name: Benjamin Cheatham MD Position: [facility] Psychiatry MD Member Role: Lifetime Consulting Physician Address: Address: [address] [place] [id number]- [place] Care Team Related Persons Name: MEENA JOSE Address: [place] [address] Name: YOHANA FOLEY Address: [place] [address]
--- OUTSIDE RECORDS SUMMARY | 2023-05-11 17:58 | XMS_ITS | Continuity of Care Document ---
Author Name Unknown Organization [facility] Address Unknown Care Team Providers Care Squadron Worker Name Role Phone Ken VILLELA, Tyesha Primary Care Physician Encounter [facility] [place] Date(s): 05/19/21 - 06/18/21 [facility] Allergies, Adverse Reactions, Alerts Substance Reaction Severity [...] 10/02/19 12:34:00 EST, Route to Pharmacy Electronically, [facility] [place], [place] -, 159, cm, 10/01/19 13:59:00 EST, [...] 10:48:25 EST Start Date: 07/29/19 Status: Ordered [place] Thyroid 60 mg oral tablet 60 mg, [...] 1 Refills, Maintenance, 03/02/20 16:12:00 EDT, Tablet, [facility] [place], [place] -, 159, cm, 02/28/20 14:16:00 EDT, [...] 4-Mild concentric LVH. ECHO 02-08-12 5MRI 08-20-15 ([facility]-scanned): disc desiccatios, disc bulges and [...] 01/14, wrist cutting 9-See MRI done at [facility] 12-09-2015 10-T4-T8 disc bulging with mild left neural foraminal narrowing. MRI 01-29-16 (scanned-done at [facility]) 11-by ex partner, (father of children) Social History Social History Type Response Smoking Status Cigars or pipes megan y within last 30 days entered on: 07/29/19 Sex Female
--- OUTSIDE RECORDS SUMMARY | 2023-05-11 17:58 | XMS_ITS | Continuity of Care Document ---
Author Name Unknown Organization [facility] Address [address] [facility], [address] Floor, [address] [place] [address]- [place] [facility] [place] 03/19/20 - 04/18/20 [facility] [address] [facility], [address]rd Floor, [address] [place] [address]- [facility] Allergies, Adverse Reactions, Alerts Substance Reaction Severity [...] 10/02/19 12:34:00 EST, Route to Pharmacy Electronically, [facility] [place], [place] -, 159, cm, 10/01/19 13:59:00 EST, [...] 10/02/20 12:34:00 EST, 10/02/19 12:33:00 EST, Capsule, [facility],... Start Date: 10/02/19 Stop Date: 10/02/20 [...] 1 Refills, Maintenance, 03/02/20 16:12:00 EDT, Tablet, [facility] [place], [place] -, 159, cm, 02/28/20 14:16:00 EDT, [...] anterior discectomy in February 2016 (Dr. Margot Wraner) 2EGD 01-23-15 3-Multiple attempts including overdosing. Also has had cutting behavior 4-Mild concentric LVH. ECHO 02-08-12 5MRI 08-20-15 ([facility]-scanned): disc desiccatios, disc bulges and [...] 01/14, wrist cutting 9-See MRI done at [facility] 12-09-2015 10-T4-T8 disc bulging with mild left neural foraminal narrowing. MRI 01-29-16 (scanned-done at [facility]) 11-by ex partner, (father of children) Social History Social History Type Response Smoking Status Cigars or pipes megan y within last 30 days entered on: 07/29/19 Sex Female
--- OUTSIDE RECORDS SUMMARY | 2023-05-11 17:58 | XMS_ITS | Continuity of Care Document ---
Author Name Unknown Organization [facility] Address [address] [facility], [address] Floor, [address] [place] [address]- Care Team Providers Care Brazer Electronic Name Role Phone Ken VILLELA, Tyesha Primary Care Physician Encounter [place] Date(s): 05/12/22 - 06/11/22 [facility] [address], [address], [address] [place] [address]- Attending Physician: Haley Lorenzo Admitting Physician: AdmtrHaley Referring Physician: Admtr, Ar8 Allergies, Adverse Reactions, [...] 10:48:25 EST Start Date: 07/29/19 Status: Ordered [place] Thyroid 60 mg oral tablet 60 mg, [...] 4-Mild concentric LVH. ECHO 02-08-12 5MRI 08-20-15 ([facility]-scanned): disc desiccatios, disc bulges and mild [...] 01/14, wrist cutting 9-See MRI done at [facility] 12-09-2015 10-T4-T8 disc bulging with mild left neural foraminal narrowing. MRI 01-29-16 (scanned-done at [facility]) 11-by ex partner, (father of children) Social History Social History Type Response Smoking Status 5-9 cigarettes (betw een 1/4 to 1/2 pack)/day in last 30 days entered on: 02/03/22 Sex Patient Care team information Personnel Name: Ken VILLELA , Tyesha Address: Address: [address] [place] [address]-
--- OUTSIDE RECORDS SUMMARY | 2023-05-11 17:58 | XMS_ITS | Continuity of Care Document ---
Author Name Unknown Organization [facility] Address Unknown Care Team Providers Care Market Investigator Name Role Phone Ken VILLELA, Tyesha Primary Care Physician [place] [facility] [place] - 05/26/21 [facility] Allergies, Adverse Reactions, Alerts Substance Reaction [...] 10/02/19 12:34:00 EST, Route to Pharmacy Electronically, [facility] - [place], [place] -, 159, cm, 10/01/19 13:59:00 EST, [...] 10:48:25 EST Start Date: 07/29/19 Status: Ordered [place] Thyroid 60 mg oral tablet 60 mg, [...] 1 Refills, Maintenance, 03/02/20 16:12:00 EDT, Tablet, [facility] [place], [place] -, 159, cm, 02/28/20 14:16:00 EDT, [...] 4-Mild concentric LVH. ECHO 02-08-12 5MRI 08-20-15 ([facility]-scanned): disc desiccatios, disc bulges and mild face [...] 01/14, wrist cutting 9-See MRI done at [facility] 12-09-2015 10-T4-T8 disc bulging with mild left neural foraminal narrowing. MRI 01-29-16 (scanned-done at [facility]) 11-by ex partner, (father of children) Social History Social History Type Response Smoking Status Cigars or pipes megan y within last 30 days entered on: 07/29/19 Sex Female
--- OUTSIDE RECORDS SUMMARY | 2023-05-11 17:58 | XMS_ITS | Continuity of Care Document ---
Author Name Unknown Organization [facility] Address Unknown Care Team Providers Care Charging Operator Name Role Phone Ken VILLELA, Tyesha Primary Care Physician Encounter [facility] Date(s): 06/23/21 - 08/14/21 [facility] Attending Physician: Nola Cobb MD Admitting Physician: Nola Cobb MD Allergies, Adverse Reactions, Alerts Substance Reaction Severity Status lithium Active lisinopril Active Risperdal Active Depakote Active Cats Active Dogs Active Other Food Allergy 1, 2 Acti ve Contrast Dye Active Pollen Active Tomatoes hives Active ZyPREXA Active SEROquel Active FLUoxetine HCl Fluoxetine [...] 10:48:25 EST Start Date: 07/29/19 Status: Ordered [place] Thyroid 60 mg oral tablet 60 mg, [...] 01/14, wrist cutting 9-See MRI done at [facility] 12-09-2015 10-T4-T8 disc bulging with mild left neural foraminal narrowing. MRI 01-29-16 (scanned-done at [facility]) 11-by ex partner, (father of children) Social History Social History Type Response Smoking Status Cigars or pipes megan y within last 30 days entered on: 07/29/19 Sex Female
--- OUTSIDE RECORDS SUMMARY | 2023-05-11 17:58 | XMS_ITS | Continuity of Care Document ---
Author Name Unknown Organization [facility] Address Unknown Care Team Providers Care Golf Course Assistant Name Role Phone Ken VILLELA, Tyesha Primary Care Physician Encounter [facility] Date(s): 05/06/21 - 06/05/21 [facility] Attending Physician: Haley Lorenzo Admitting Physician: Haley Lorenzo Referring Physician: Haley Lorenzo Allergies, Adverse Reactions, Alerts Substance Reaction Severity [...] 10/02/19 12:34:00 EST, Route to Pharmacy Electronically, [facility] - [place], [place] -, 159, cm, 01/21/20 13:59:00 EST, Height,... Start Date: 10/02/19 Status: [...] 10:48:25 EST Start Date: 07/29/19 Status: Ordered [place] Thyroid 60 mg oral tablet 60 mg, [...] 1 Refills, Maintenance, 03/02/20 16:12:00 EDT, Tablet, [facility] - [place], [place] -, 159, cm, 02/28/20 14:16:00 EDT, [...] 4-Mild concentric LVH. ECHO 02-08-12 5MRI 08-20-15 ([facility]-scanned): disc desiccatios, disc bulges and mild [...] 01/14, wrist cutting 9-See MRI done at [facility] 12-09-2015 10-T4-T8 disc bulging with mild left neural foraminal narrowing. MRI 01-29-16 (scanned-done at [facility]) 11-by ex partner, (father of children) Social History Social History Type Response Smoking Status Cigars or pipes megan y within last 30 days entered on: 07/29/19 Sex Female
--- OUTSIDE RECORDS SUMMARY | 2023-05-11 17:58 | XMS_ITS | Continuity of Care Document ---
Author Name Unknown Organization [facility] Address [address] [place] [address]- Care Team Providers Care Transportation Maintenance Operator Name Role Phone Ken VILLELA, Tyesha Primary Care Physician Encounter [facility] Date(s): 12/06/22 - 01/20/23 [facility] [address] [place] [address]- Attending Physician: Mike JERONIMO, Adrián Gates Admitting Physician: Mike JERONIMO, Adrián Gates Referring Physician: Tyesha Rogers MD Allergies, Adverse Reactions, Alerts Substance Reaction [...] 10:48:25 EST Start Date: 07/29/19 Status: Ordered [place] Thyroid 60 mg oral tablet 60 mg, [...] 4-Mild concentric LVH. ECHO 02-08-12 5MRI 08-20-15 ([facility]-scanned): disc desiccatios, disc bulges and mild [...] 01/14, wrist cutting 9-See MRI done at [facility] 12-09-2015 10-T4-T8 disc bulging with mild left neural foraminal narrowing. MRI 01-29-16 (scanned-done at [facility]) 11-by ex partner, (father of children) Social History Social History Type Response Smoking Status 5-9 cigarettes (betw een 1/4 to 1/2 pack)/day in last 30 days entered on: 02/03/22 Sex Patient Care team information Care Team Personnel Name: Yana Rogers RN Position: [facility] ED RN W/OE and Tasks Member Role: Primary Care Nurse Name: Kinjal Vivar RN Position: [facility] RN Member Role: Primary Care Nurse Name: Augusta Cespedes RN Position: [facility] RN Member Role: Primary Care Nurse Name: Kyra Lockhart RN Position: [facility] RN Member Role: Primary Care Nurse Name: Jill Allen RN Position: [facility] RN Member Role: Primary Care Nurse Name: Donna Beltre RN Position: [facility] RN Member Role: Primary Care Nurse Name: Carmita Canas RN Position: [facility] Rad RN Member Role: Primary Care Nurse Name: Jasmyne Nice Position: [facility] RN Member Role: Primary Care Nurse Name: Ariane Pritchett RN Position: [facility] RN Supv Member Role: Primary Care Nurse Name: Jolene Bruner RN Position: [facility] RN Member Role: Primary Care Nurse Name: Melissa Urias RN Position: [facility] RN Member Role: Primary Care Nurse Name: Argenis Scruggs RN Position: [facility] ED RN W/OE and Tasks Member Role: Primary Care Nurse Name: Ada Harris RN Position: [facility] RN Member Role: Primary Care Nurse Name: Radha Montes De Oca RN Position: [facility] RN Member Role: Primary Care Nurse Name: Mira Rajan RN Position: [facility] SN RN Member Role: Primary Care Nurse Name: Nola Bowman RN Position: [facility] RN Member Role: Primary Care Nurse Name: Anita De Jesus RN Position: [facility] ED RN W/OE and Tasks Member Role: Primary Care Nurse Name: Suzi Cowan RN Position: [facility] RN Member Role: Primary Care Nurse Name: Rebeka Ontiveros RN Position: [facility] RN Member Role: Primary Care Nurse Name: Jeremiah Al RN Position: [facility] SN RN Member Role: Primary Care Nurse Name: Regine Guerin RN Position: [facility] RN Member Role: Primary Care Nurse Name: Jocelyn Cristobal RN Position: [facility] SN RN Member Role: Primary Care Nurse Name: Dedra Dumont RN Position: [facility] RN Member Role: Primary Care Nurse Name: Apolonia Easton RN Position: [facility] RN Supv Member Role: Primary Care Nurse Name: Estefania Bhatti RN Position: [facility] RN Member Role: Primary Care Nurse Name: Eulogio Enciso RN Position: [facility] RN Member Role: Primary Care Nurse Name: Kamala Abdi RN Position: [facility] RN Member Role: Primary Care Nurse Name: Aquilino Sarah RN Position: [facility] SN RN Member Role: Primary Care Nurse Name: Concepcion Mondragon RN Position: [facility] RN Member Role: Primary Care Nurse Name: Marcia Kuhn RN Position: [facility] RN Member Role: Primary Care Nurse Name: Adrián Wilcox RN Position: [facility] RN Member Role: Primary Care Nurse Name: Ada Aleman RN Position: [facility] ED RN W/OE and Tasks Member Role: Primary Care Nurse Name: Sharlene Macias Position: [facility] Outreach Member Role: Lifetime Consulting Physician Name: Tyesha Rogers MD Position: [facility] Outreach Member Role: PCP Address: Address: [address] [place] [address]- [place] Name: La Miranda RN Position: [facility] Business Analyst Project Manager Member Role: Primary Care Nurse Name: Sunita Anthony RN Position: [facility] RN Member Role: Primary Care Nurse Name: Glendy Gandara RN Position: [facility] SN RN Member Role: Primary Care Nurse Name: Melanie Martinez RN Position: [facility] Onco RN Member Role: Primary Care Nurse Name: Rima Soliz RN Position: [facility] Business Analyst Project Manager Member Role: Primary Care Nurse Name: Benjamin Cheatham MD Position: [facility] Psychiatry MD Member Role: Lifetime Consulting Physician Address: Address: [address] [place] [address]- [place] Care Team Related Persons Name: JOSE ROBLEDO Address: home [address] [place] [address] Name: YOHANA FOLEY Address: [place] [address]
--- OUTSIDE RECORDS SUMMARY | 2023-05-11 17:58 | XMS_ITS | Continuity of Care Document ---
Author Name Unknown Organization [facility] Address [address] [place] [address]- [place] [facility] Date(s[place] 03/02/20 - 04/01/20 [facility] [address] [place] [address]- [facility] Attending Physician: Haley Lorenzo Admitting Physician: AdmHaley [...] 10/02/19 12:34:00 EST, Route to Pharmacy Electronically, [facility] [place], [place] -, 159, cm, 10/01/19 13:59:00 EST, [...] 10/02/20 12:34:00 EST, 10/02/19 12:33:00 EST, Capsule, [facility],... Start Date: 10/02/19 Stop Date: 10/02/20 [...] 1 Refills, Maintenance, 03/02/20 16:12:00 EDT, Tablet, [facility] [place], [place] -, 159, cm, 02/28/20 14:16:00 EDT, [...] 4-Mild concentric LVH. ECHO 02-08-12 5MRI 08-20-15 ([facility]-scanned): disc desiccatios, disc bulges and mild [...] 01/14, wrist cutting 9-See MRI done at [facility] 12-09-2015 10-T4-T8 disc bulging with mild left neural foraminal narrowing. MRI 01-29-16 (scanned-done at [facility]) 11-by ex partner, (father of children) Social History Social History Type Response Smoking Status Cigars or pipes megan y within last 30 days entered on: 07/29/19 Sex Female
--- OUTSIDE RECORDS SUMMARY | 2023-05-11 17:58 | XMS_ITS | Continuity of Care Document ---
Author Name Unknown Organization [facility] Address Unknown Care Team Providers Care Telex Operator Name Role Phone Ken VILLELA, Tyesha Primary Care Physician Encounter [facility] Date(s): 07/15/21 - 08/14/21 [facility] Attending Physician: Haley Lorenzo Admitting [...] 10:48:25 EST Start Date: 07/29/19 Status: Ordered [place] Thyroid 60 mg oral tablet 60 mg, [...] 01/14, wrist cutting 9-See MRI done at [facility] 12-09-2015 10-T4-T8 disc bulging with mild left neural foraminal narrowing. MRI 01-29-16 (scanned-done at [facility]) 11-by ex partner, (father of children) Social History Social History Type Response Smoking Status Cigars or pipes megan y within last 30 days entered on: 07/29/19 Sex Female
--- OUTSIDE RECORDS SUMMARY | 2023-05-11 17:58 | XMS_ITS | Continuity of Care Document ---
Author Name Unknown Organization [facility] Address [address] [place] [phone]- [place] [facility] Date(s): 04/27/20 - 04/27/[address] [address]- [facility] Encounter Diagnosis Urticaria(Final) - 04/27/20 Urticaria(Final) - 04/27/20 Discharge Disposition: A-D/C Home Attending Physician: Brooks Guadarrama MD Admitting Physician: Brooks Guadarrama MD Referring Physician: Not on Staff, Referring MD [...] 10/02/19 12:34:00 EST, Route to Pharmacy Electronically, [facility], [place] -, 159, cm, 10/01/19 13:59:00 EST, Height,... [...] 10/02/20 12:34:00 EST, 10/02/19 12:33:00 EST, Capsule, [facility],... Start Date: 10/02/19 Stop Date: 10/02/20 [...] 1 Refills, Maintenance, 03/02/20 16:12:00 EDT, Tablet, [facility] [place], [place] -, 159, cm, 02/28/20 14:16:00 EDT, [...] 4-Mild concentric LVH. ECHO 02-08-12 5MRI 08-20-15 ([facility]-scanned): disc desiccatios, disc bulges and [...] 01/14, wrist cutting 9-See MRI done at [facility] 12-09-2015 10-T4-T8 disc bulging with mild left neural foraminal narrowing. MRI 01-29-16 (scanned-done at [facility]) 11-by ex partner, (father of children) Vital Signs Most recent to oldest [Reference Range]: 1 2 Oxygen Saturation [94-100 %] 100 % (04/27/20 12:21 PM) 100 % (04/27/20 12:12 PM) Pulse Rate [55-90 bpm] 72 bpm (04/27/20 12:21 PM) 65 bpm (04/27/20 12:12 PM) Blood Pressure [90-138/55-84 mm Hg] 132/ 85mm Hg (04/27/20 12:21 PM) 137/101mm Hg (04/27/20 12:12 PM) Respiratory Rate [16-30 br/min] 18 br/mi n (04/27/20 12:21 PM) 16 br/min (04/27/20 12:12 PM) Temperature [96.8-100.4 DegF] 97.7 DegF (04/27/20 12:21 PM) Liters per Minute 0 L/min (04/27/20 12:21 PM) Mode of Delivery (Oxygen) Room air (04/27/20 12:21 PM) Room air (04/27/20 12:12 PM) Blood pressure sites Arm, left (04/27/20 12:21 PM) Temperature Route Oral (04/27/20 12:21 PM) Social History Social History Type Response Smoking Status Cigars or pipes megan y within last 30 days entered on: 07/29/19 Sex Female
--- OUTSIDE RECORDS SUMMARY | 2023-05-11 17:58 | XMS_ITS | Continuity of Care Document ---
Author Name Unknown Organization [facility] Address [address] [place] [address], [address] Floor, [address] [place] [address]- Encounter [facility] Date(s): 01/09/20 - 02/08/20 [facility] [address] [place] [address], 3rd Floor, [address] [place] [address]- [facility] Attending Physician: Haley Lorenzo Admitting Physician: Admtr, [id number] Referring Physician: Admtr, [id number] Allergies, Adverse Reactions, [...] 10/02/19 12:34:00 EST, Route to Pharmacy Electronically, [facility], [place] -, 159, cm, 10/01/19 13:59:00 EST, Height,... [...] 10/02/20 12:34:00 EST, 10/02/19 12:33:00 EST, Capsule, [facility],... Start Date: 10/02/19 Stop Date: 10/02/20 [...] 4-Mild concentric LVH. ECHO 02-08-12 5MRI 08-20-15 ([facility]-scanned): disc desiccatios, disc bulges and mild face [...] 01/14, wrist cutting 9-See MRI done at [facility] 12-09-2015 10-T4-T8 disc bulging with mild left neural foraminal narrowing. MRI 01-29-16 (scanned-done at [facility]) 11-by ex partner, (father of children) Social History Social History Type Response Smoking Status Cigars or pipes megan y within last 30 days entered on: 07/29/19 Sex Female
--- OUTSIDE RECORDS SUMMARY | 2023-05-11 17:58 | XMS_ITS | Continuity of Care Document ---
Author Name Unknown Organization [facility] Address [address] [place] [address]- Care Team Providers Care Lead Cashier Name Role Phone Ken VILLELA, Tyesha Primary Care Physician [place] [facility] [place] 01/28/21 - 02/27/21 [facility] [address] [place] [address]- Allergies, Adverse Reactions, Alerts Substance Reaction Severity [...] 10/02/19 12:34:00 EST, Route to Pharmacy Electronically, [facility] - [place], [place] -, 159, cm, 10/01/19 13:59:00 EST, [...] 10:48:25 EST Start Date: 07/29/19 Status: Ordered [place] Thyroid 60 mg oral tablet 60 mg, [...] 1 Refills, Maintenance, 03/02/20 16:12:00 EDT, Tablet, [facility] [place], [place] -, 159, cm, 02/28/20 14:16:00 EDT, [...] 4-Mild concentric LVH. ECHO 02-08-12 5MRI 08-20-15 ([facility]-scanned): disc desiccatios, disc bulges and [...] 01/14, wrist cutting 9-See MRI done at [facility] 12-09-2015 10-T4-T8 disc bulging with mild left neural foraminal narrowing. MRI 01-29-16 (scanned-done at [facility]) 11-by ex partner, (father of children) Social History Social History Type Response Smoking Status Cigars or pipes megan y within last 30 days entered on: 07/29/19 Sex Female
--- OUTSIDE RECORDS SUMMARY | 2023-05-11 17:58 | XMS_ITS | Continuity of Care Document ---
Author Name Unknown Organization [facility] Address [address] [place] [address]- Care Team Providers Care Dobie Man Name Role Phone Ken VILLELA, Tyesha Primary Care Physician Encounter [facility] Date(s): 02/02/22 - 02/04/[address] [address]- Encounter Diagnosis Paresthesia(Final) - 02/03/22 Weakness(Final) - 02/03/22 Discharge Disposition: A-D/C Home Attending Physician: Fito Cool Sr, MD Admitting Physician: Abran Reza MD Referring Physician: Not on Staff, Referring MD Allergies, Adverse Reactions, Alerts Substance Reaction Severity Status Contrast Dye Active Immunizations Given and Recorded Vaccine Date Status Refusal Reason influenza virus vaccine, inactivated 07/23/21 Arnaldo rded influenza virus vaccine, inactivated 07/08/20 Arnaldo rded influenza virus vaccine, inactivated 06/03/19 Arnaldo rded influenza virus vaccine, inactivated 08/29/18 Arnaldo rded influenza virus vaccine, inactivated 06/05/18 Arnaldo rded influenza virus vaccine, inactivated 06/20/17 Arnaldo rded influenza virus vaccine, inactivated 06/02/15 Arnaldo rded influenza virus vaccine, inactivated 07/02/14 Arnaldo rded influenza virus vaccine, inactivated 10/14/13 Arnaldo rded influenza virus vaccine, inactivated 06/28/12 Arnaldo rded influenza virus vaccine, inactivated 11/08/11 Arnaldo rded influenza virus vaccine, inactivated 06/13/11 Arnaldo rded SARS-CoV-2 (COVID-19) mRNA BNT-162b2 vac 07/02/21 Recorded SARS-CoV-2 (COVID-19) mRNA BNT-162b2 vac 06/11/21 Recorded hepatitis B adult vaccine 04/24/19 Recorded hepatitis B adult vaccine 12/04/18 Recorded hepatitis B adult vaccine 1/11/19 Recorded hepatitis B adult vaccine 02/02/16 Recorded tetanus/diphtheria/pertussis, acel(Tdap) 06/08/17 Recorded tetanus/diphtheria/pertussis, acel(Tdap) 11/16/16 Recorded tetanus/diphtheria/pertussis, acel(Tdap) 11/23/15 Recorded pneumococcal 13-valent vaccine 05/18/16 Recorded tetanus-diphtheria toxoids (Td) 11/08/11 Recorded pneumococcal 23-valent vaccine 06/25/11 Recorded Medications Aripiprazole 20 mg, By Mouth, Daily, Refills 0, Maintenance, 02/03/22 16:19:00 EDT, Partial fill upon patient request if the prescription is for a schedule II opioid drug. Start Date: 02/03/22 Status: Ordered atorvastatin 40 mg oral tablet 1 tablet = 40 mg, By Mouth, Daily, # 90 tablet, 0 Refills, Maintenance, 02/03/22 0:48:00 EDT, Tablet, Partial fill upon patient request if the prescription is for a schedule II opioid drug. Start Date: 02/03/22 Status: Ordered Eliquis 5 mg oral tablet 1 tablet = 5 mg, By Mouth, 2 times a day, # 60 tablet, 5 Refills, Maintenance, 02/03/22 0:49:00 EDT, Tablet, Partial fill upon patient request if the prescription is for a schedule II opioid drug. Start Date: 02/03/22 Status: Ordered Jessi-Dryl 25 mg oral tablet [...] drug. Start Date: 02/03/22 Status: Ordered losartan 50 mg oral tablet 50 mg, Tablet, By Mouth, 02/04/22 9:00:00 EDT Start Date: 02/04/22 Stop Date: 02/04/22 Status: Completed losartan 50 mg oral tablet 1 tablet [...] opioid drug. Start Date: 02/03/22 Status: Ordered MorPHINE Inj 2 mg, Injection, IV Push Slowly, Every 4 hours, PRN for Pain , Severe, Routine, 02/03/22 11:11:00 EDT Start Date: 02/03/22 Stop Date: 02/05/22 Status: Discontinued prazosin 1 mg oral capsule 1 mg, [...] Start Date: 02/03/22 Status: Ordered Topiramate = 25 mg, By [...] opioid drug. Start Date: 02/03/22 Status: Ordered traZODone 100 mg oral tablet [...] opioid drug. Start Date: 02/03/22 Status: Ordered Problem List Condition Effective Dates Status Health Status Inform ant Obese class I(Confirmed) Active Results Radiology Reports * Exam Date Time Procedure Performing Provider Status 02/02/22 10:51 PM Chest Portable Rebeka Rock; th (Verified) Notes: (Chest Portable) Reason For Exam: Stroke;Other: RESULT: Chest Portable Chest Portable Hx of Present Illness: R UE weakness; BLE paralysis; R facial droop; Reason: Other:; Stroke; Clinical Question(s): CHF COMPARISON: None. FINDINGS: LINES AND TUBES: None. LUNGS AND PLEURA: Clear lungs. Normal pulmonary vascularity. No pleural effusion. No pneumothorax, although lung apices partially obscured by patient's chin. HEART, MEDIASTINUM AND CHARLINE: Heart is normal in size. Normal upper mediastinal and hilar contour. BONES AND SOFT TISSUES: No acute abnormality. IMPRESSION: No acute abnormality. WSN: [id number] Ordering Physician: Michael Gutirerez Dictated By: Marcial Méndez MD Dictated Date/Time: 02/02/22 11:30 p Reviewed By: Marcial Méndez MD Signed By: Marcial Méndez MD Signed Date/Time: 02/02/22 11:30 pm Transcribed By: RICCARDO Transcribed Date/Time: 02/02/22 11:29 pm Vital Signs Most recent to oldest [Reference Range]: 1 2 3 Height 158 cm (02/04/22 3:36 PM) 158 cm (02/04/22 11:30 AM) 158 cm (02/04/22 8:30 AM) Weight 76 kg (02/03/22 3:53 PM) Oxygen Saturation [94-100 %] 100 % (02/04/22 3:36 PM) 97 % (02/04/22 11:30 AM) 100 % (02/04/22 8:30 AM) Pulse Rate [55-90 bpm] 64 bpm (02/04/22 3:36 PM) 64 bpm (02/04/22 11:30 AM) 62 bpm (02/04/22 8:30 AM) Body Mass Index [18.5-24.99] 30.44 *>HHI* (02/03/22 3:53 PM) Blood Pressure [90-138/55-84 mm Hg] 142/70mm Hg *H* (02/04/22 3:36 PM) 139/68mm Hg *H* (02/04/22 11:30 AM) 135/58mm Hg (02/04/22 9:11 AM) Respiratory Rate [16-30 br/min] 18 br/min (02/04/22 3:36 PM) 22 br/min (02/04/22 1:25 PM) 18 br/min (02/04/22 11:30 AM) Temperature [96.8-100.4 DegF] 96.9 DegF (02/04/22 3:36 PM) 96.9 DegF (02/04/22 11:30 AM) 97.0 DegF (02/04/22 8:30 AM) Mode of Delivery (Oxygen) Room air (02/04/22 3:36 PM) Room air (02/04/22 11:30 AM) Room air (02/04/22 8:30 AM) Blood pressure sites Arm, left (02/04/22 3:36 PM) Arm, left (02/04/22 11:30 AM) Arm, left (02/04/22 8:30 AM) Temperature Route Temporal (02/04/22 3:36 PM) Temporal (02/04/22 11:30 AM) Oral (02/04/22 8:30 AM) Dry Weight 76 kg (02/03/22 3:53 PM) Weight Obtained Via Bed scale (02/03/22 3:53 PM) Dry Weight Obtained Via Bed scale (02/03/22 3:53 PM) Social History Social History Type Response Smoking Status 5-9 cigarettes ([place] 1/4 to 1/2 pack)/day in last 30 days entered on: 02/03/22 Sex
--- OUTSIDE RECORDS SUMMARY | 2023-05-11 17:59 | XMS_ITS | Continuity of Care Document ---
Author Name Unknown Organization [facility] ter Address [address] [place] [id number]- Care Team Providers Care Giving Officer Name Role Phone Ken VILLELA, Tyesha Primary Care Physician Encounter [facility] Date(s): 02/26/20 - 08/30/[address] [address]- Encounter Diagnosis Multiple sclerosis(Final) - Discharge Disposition: A-D/C Home Attending Physician: Nola Cobb MD Admitting Physician: Julio Easton NP Allergies, Adverse [...] 10/02/19 12:34:00 EST, Route to Pharmacy Electronically, [facility], [place] -, 159, cm, 10/01/19 13:59:00 EST, Height,... [...] 10/02/20 12:34:00 EST, 10/02/19 12:33:00 EST, Capsule, [facility],... Start Date: 10/02/19 Stop Date: 10/02/20 Status: [...] 1 Refills, Maintenance, 03/02/20 16:12:00 EDT, Tablet, [facility] [place], [place] -, 159, cm, 02/28/20 14:16:00 EDT, [...] 4-Mild concentric LVH. ECHO 02-08-12 5MRI 08-20-15 ([facility]-scanned): disc desiccatios, disc bulges and mild face [...] 01/14, wrist cutting 9-See MRI done at [facility] 12-09-2015 10-T4-T8 disc bulging with mild left neural foraminal narrowing. MRI 01-29-16 (scanned-done at [facility]) 11-by ex partner, (father of children) Vital Signs Most recent to oldest [Reference Range]: 1 2 3 Height 157 cm (08/03/20 10:11 AM) 157 cm (06/08/20 10:22 AM) 157 cm (05/07/20 2:04 PM) Weight 76.8 kg (06/08/20 10:22 AM) 82.4 kg (03/30/20 11:16 AM) 82.4 kg (03/30/20 10:56 AM) Oxygen Saturation [94-100 %] 97 % (08/03/20 10:11 AM) 99 % (06/08/20 10:22 AM) 98 % (05/07/20 2:04 PM) Pulse Rate [55-90 bpm] 72 bpm (08/03/20 10:11 AM) 87 bpm (06/08/20 10:22 AM) 80 bpm (05/07/20 2:04 PM) Body Mass Index [18.5-24.99] 31.16 *>HHI* (06/08/20 10:22 AM) 33.43 *>HHI* (03/30/20 11:16 AM) Blood Pressure [90-138/55-84 mm Hg] 134/81mm Hg (08/03/20 10:11 AM) 139/76mm Hg *H* (06/08/20 10:22 AM) 113/74mm Hg (05/07/20 2:04 PM) Respiratory Rate [16-30 br/min] 18 br/min (08/03/20 10:11 AM) 18 br/min (06/08/20 10:22 AM) 18 br/min (05/07/20 2:04 PM) Temperature [96.8-100.4 DegF] 97.9 DegF (08/03/20 10:11 AM) 98.1 DegF (06/08/20 10:22 AM) 98.8 DegF (05/07/20 2:04 PM) Mode of Delivery (Oxygen) Room air (08/03/20 10:11 AM) Room air (06/08/20 10:22 AM) Room air (05/07/20 2:04 PM) Blood pressure sites Arm, right (08/03/20 10:11 AM) Arm, right (05/07/20 2:04 PM) Arm, right (05/07/20 12:22 PM) Temperature Route Oral (08/03/20 10:11 AM) Oral (06/08/20 10:22 AM) Oral (05/07/20 2:04 PM) Dry Weight 82.4 kg (03/30/20 10:56 AM) Social History Social History Type Response Smoking Status Cigars or pipes megan y within last 30 days entered on: 07/29/19 Sex Female
--- OUTSIDE RECORDS SUMMARY | 2023-05-11 17:59 | XMS_ITS | Continuity of Care Document ---
Author Name Unknown Organization [facility] ter Address [address] [place] [address]- Care Team Providers Care Court Transcriber Name Role Phone Ken VILLELA, Tyesha Primary Care Physician [phone] Encounter [facility] Date(s): 12/28/20 - 03/28/[address] [address] Attending Physician: Nola Cobb MD Admitting Physician: Nola Cobb MD Referring Physician: Nola Cobb MD Allergies, Adverse Reactions, [...] influenza virus vaccine, inactivated 1 06/13/11 Gi ryna pneumococcal 23-valent vaccine 05/18/16 Given hepatitis B [...] to Pharmacy Electronically, [facility] [place], [place] -, 159, cm, 10/01/19 13:59:00 EST, [...] 10:48:25 EST Start Date: 07/29/19 Status: Ordered [place] Thyroid 60 mg oral tablet 60 mg, [...] 16:12:00 EDT, Tablet, [facility] [place], [place] -, 159, cm, 02/28/20 14:16:00 EDT, [...] 4-Mild concentric LVH. ECHO 02-08-12 5MRI 08-20-15 ([facility]-scanned): disc desiccatios, disc bulges and [...] 01/14, wrist cutting 9-See MRI done at [facility] 12-09-2015 10-T4-T8 disc bulging with mild left neural foraminal narrowing. MRI 01-29-16 (scanned-done at [facility]) 11-by ex partner, (father of children) Social History Social History Type Response Smoking Status Cigars or pipes megan y within last 30 days entered on: 07/29/19 Sex Female
--- OUTSIDE RECORDS SUMMARY | 2023-05-11 17:59 | XMS_ITS | Continuity of Care Document ---
Author Name Unknown Organization [facility] Address Unknown Care Team Providers Care Cradle Placer Name Role Phone Ken VILLELA, Tyesha Primary Care Physician [phone] [place] [facility] [place] 07[place]21 [facility] Allergies, Adverse Reactions, Alerts Substance [...] 10:48:25 EST Start Date: 07/29/19 Status: Ordered [place] Thyroid 60 mg oral tablet 60 mg, [...] concentric LVH. ECHO 02-08-12 5MRI 08-20-15 ([facility]-scanned): disc desiccatios, disc bulges and mild [...] wrist cutting 9-See MRI done at [facility] 12-09-2015 10-T4-T8 disc bulging with mild left neural foraminal narrowing. MRI 01-29-16 (scanned-done at [facility]) 11-by ex partner, (father of children) Social History Social History Type Response Smoking Status Cigars or pipes megan y within last 30 days entered on: 07/29/19 Sex Female
--- OUTSIDE RECORDS SUMMARY | 2023-05-11 17:59 | XMS_ITS | Continuity of Care Document ---
Author Name Unknown Organization [facility] ter Address [address] [place] [address]- Care Team Providers Care Commercial Sheet Metal Foreman Name Role Phone Ken VILLELA, Tyesha Primary Care Physician Encounter [facility] Date(s): 06/16/21 - 08/19/[address] [address]- Attending Physician: Nola Cobb MD Admitting Physician: Nola Cobb MD Referring Physician: Nola Cobb MD Allergies, Adverse Reactions, Alerts Substance Reaction Severity Status lithium Active lisinopril Active Risperdal Active Cats Active Contrast Dye Active Dogs Active Other Food Allergy 1, 2 Acti ve ZyPREXA Active SEROquel Active FLUoxetine HCl Fluoxetine Active Depakote Active Pollen Active Tomatoes hives Active 1broccoli and green [...] 10:48:25 EST Start Date: 07/29/19 Status: Ordered [place] Thyroid 60 mg oral tablet 60 mg, [...]
--- OUTSIDE RECORDS SUMMARY | 2023-05-11 17:59 | XMS_ITS | Continuity of Care Document ---
Author Name Unknown Organization [facility] ter Address [address] [place] [address]- Care Team Providers Care Pulling Unit Floorhand Name Role Phone Ken VILLELA, Tyesha Primary Care Physician [place] [facility] [place] - 11/18/[address] [address]- Encounter Diagnosis chest pain(Final) - 11/18/20 Discharge Disposition: A-D/C AMA Attending Physician: Anju Dia DO Admitting Physician: Rudy River MD Referring Physician: Not on Staff, Referring [...] 10/02/19 12:34:00 EST, Route to Pharmacy Electronically, [facility] [place], [place] -, 159, cm, 10/01/19 13:59:00 EST, [...] 10:48:25 EST Start Date: 07/29/19 Status: Ordered [place] Thyroid 60 mg oral tablet 60 mg, [...] 1 Refills, Maintenance, 03/02/20 16:12:00 EDT, Tablet, [facility] [place], [place] -, 159, cm, 02/28/20 14:16:00 EDT, [...] 10:48:03 EST Start Date: 07/29/19 Status: Ordered prazosin 1 mg oral capsule 1 mg, Capsule, By Mouth, 11/17/20 21:00:00 EST Start Date: 11/17/20 Stop Date: 11/17/20 Status: Completed Probiotic Formula 1 capsule, By Mouth, Daily, [...] 01/14, wrist cutting 9-See MRI done at [facility] 12-09-2015 10-T4-T8 disc bulging with mild left neural foraminal narrowing. MRI 01-29-16 (scanned-done at [facility]) 11-by ex partner, (father of children) Results Radiology Reports * Exam Date Time Procedure Performing Provider Status 11/16/20 2:52 PM Chest Portable Aida Smith; Auth (Verified) Notes: (Chest Portable) Reason For Exam: Pleuritic Pain RESULT: Chest Portable Chest Portable Reason: Substernal chest Pain; Clinical Question(s): Pleural Effusion COMPARISON: 05/19/2020 FINDINGS: LINES AND TUBES: None. LUNGS AND PLEURA: Clear lungs. Normal pulmonary vascularity. No pleural effusion. No pneumothorax. HEART, MEDIASTINUM AND CHRALINE: Heart is normal in size. Normal upper mediastinal and hilar contour. BONES AND SOFT TISSUES: No acute abnormality. IMPRESSION: No acute abnormality. I have personally reviewed the images and I agree with this report. WSN: [id number] Ordering Physician: Harmeet Abrams Dictated By: Tae Levy DO Dictated Date/Time: 11/16/20 3:02 pm Reviewed By: Pedrito Finnegan MD Signed By: Pedrito Finnegan MD Signed Date/Time: 11/16/20 3:07 pm Transcribed By: RICCARDO Transcribed Date/Time: 11/16/20 2:54 pm Vital Signs Most recent to oldest [Reference Range]: 1 2 3 Height 158 cm (11/17/20 11:32 PM) 158 cm (11/17/20 7:07 PM) 158 cm (11/17/20 3:49 PM) Weight 83.2 kg (11/16/20 8:44 PM) Oxygen Saturation [94-100 %] 97 % (11/17/20 11:32 PM) 98 % (11/17/20 7:07 PM) 97 % (11/17/20 3:49 PM) Pulse Rate [55-90 bpm] 90 bpm (11/17/20 11:32 PM) 76 bpm (11/17/20 7:07 PM) 79 bpm (11/17/20 3:49 PM) Body Mass Index [18.5-24.99] 33.33 *>HHI* (11/16/20 8:44 PM) Blood Pressure [90-138/55-84 mm Hg] 137/75mm Hg (11/17/20 11:32 PM) 156/63mm Hg *H* (11/17/20 8:44 PM) 156/63mm Hg *H* (11/17/20 7:07 PM) Respiratory Rate [16-30 br/min] 18 br/min (11/17/20 11:32 PM) 20 br/min (11/17/20 7:07 PM) 16 br/min (11/17/20 3:49 PM) Temperature [96.8-100.4 DegF] 97.9 DegF (11/17/20 11:32 PM) 98.6 DegF (11/17/20 7:07 PM) 98.3 DegF (11/17/20 3:49 PM) Mode of Delivery (Oxygen) Room air (11/17/20 11:32 PM) Room air (11/17/20 7:07 PM) Room air (11/17/20 3:49 PM) Blood pressure sites Arm, right (11/17/20 11:32 PM) Arm, left (11/17/20 7:07 PM) Arm, right (11/17/20 3:49 PM) Temperature Route Oral (11/17/20 11:32 PM) Oral (11/17/20 7:07 PM) Oral (11/17/20 3:49 PM) Dry Weight 83.2 kg (11/16/20 8:44 PM) Social History Social History Type Response Smoking Status Cigars or pipes megan y within last 30 days entered on: 07/29/19 Sex Female
--- OUTSIDE RECORDS SUMMARY | 2023-05-11 17:59 | XMS_ITS | Continuity of Care Document ---
Author Name Unknown Organization [facility] ter Address [address] [place] [address]- Care Team Providers Care Mask Layout Designer Name Role Phone Ken VILLELA, Tyesha Primary Care Physician [phone] Encounter [facility] [place] Date(s): 08/23/21 - 05/17/[address] [address]- Encounter Diagnosis Multiple sclerosis(Final) - Discharge Disposition: A-D/C Home Attending Physician: Nola Cobb MD Admitting Physician: Nola Cobb MD Referring Physician: Tyesha Rogers MD Allergies, Adverse Reactions, Alerts Substance Reaction Severity Status lithium Active lisinopril Active Tomatoes hives Active Risperdal Active Depakote Active Cats Active Dogs Active Other Food Allergy 1, 2 Acti ve Contrast Dye Active Pollen Active ZyPREXA Active FLUoxetine HCl Fluoxetine Active [...] 10:48:25 EST Start Date: 07/29/19 Status: Ordered [place] Thyroid 60 mg oral tablet 60 mg, [...] sclerosis(Confirmed) Active Cocaine abuse, episodic use(Confirmed) Active Obese class I(Confirmed) Active Post traumatic stress disord er (PTSD)(Confirmed) [...] LVH. ECHO 02-08-12 5MRI 08-20-15 ([facility]-scanned): disc desiccatios, disc bulges and mild face [...] cutting 9-See MRI done at [facility] 12-09-2015 10-T4-T8 disc bulging with mild left neural foraminal narrowing. MRI 01-29-16 (scanned-done at [facility]) 11-by ex partner, (father of children) Social History Social History Type Response Smoking Status 5-9 cigarettes (betw een 1/4 to 1/2 pack)/day in last 30 days entered on: 02/03/22 Sex Care Team Personnel Name: Ken VILLELA , Tyesha Address: [address] [place], [place] [address]
--- OUTSIDE RECORDS SUMMARY | 2023-05-11 17:59 | XMS_ITS | Continuity of Care Document ---
Author Name Unknown Organization [facility] Address [address] [place] [address]- Care Team Providers Care Wound Care Specialist Name Role Phone Ken VILLELA, Tyesha Primary Care Physician [place] [facility] [place]/23 [facility] [address] [place] [address]- Attending Physician: Haley Lorenzo Admitting Physician: AdmtrHaley [...] 10:48:25 EST Start Date: 07/29/19 Status: Ordered [place] Thyroid 60 mg oral tablet 60 mg, [...] Confirmed Active Encounter for screening colonoscopy for [id number] patient Confirmed Active Encounter for screening colonoscopy [...] 4-Mild concentric LVH. ECHO 02-08-12 5MRI 08-20-15 ([facility]-scanned): disc desiccatios, disc bulges and mild face [...] 01/14, wrist cutting 9-See MRI done at [facility] 12-09-2015 10-T4-T8 disc bulging with mild left neural foraminal narrowing. MRI 01-29-16 (scanned-done at [facility]) 11-by ex partner, (father of children) Social History Social History Type Response Smoking Status 5-9 cigarettes (betw een 1/4 to 1/2 pack)/day in last 30 days entered on: 02/03/22 Sex Cardiology * Event Display: EKG Non BH Authored Date: Laboratory * Event Display: Non BH Lab Results Authored Date: * Event Display: Non BH Lab Results Authored Date: Radiology * Event Display: IR Special Procedures, Non-BH Authored Date: Patient Care team information Care Team Personnel Name: Yana Rogers RN Position: [facility] ED RN W/OE and Tasks Member Role: Primary Care Nurse Name: Kinjal Vivar RN Position: [facility] RN Member Role: Primary Care Nurse Name: Augusta Cespedes RN Position: [facility] RN Member Role: Primary Care Nurse Name: Kyra Lockhart RN Position: [facility] RN Member Role: Primary Care Nurse Name: Jill Allen RN Position: [facility] RN Member Role: Primary Care Nurse Name: Donna Beltre RN Position: [facility] RN Member Role: Primary Care Nurse Name: Carmita Canas RN Position: [facility] Rad RN Member Role: Primary Care Nurse Name: Ariane Pritchett RN Position: [facility] RN Supsingh Member Role: Primary Care Nurse Name: Jolene Bruner RN Position: [facility] RN Member Role: Primary Care Nurse Name: Melissa Urias RN Position: [facility] RN Member Role: Primary Care Nurse Name: Argenis Scruggs RN Position: [facility] ED RN W/OE and Tasks Member Role: Primary Care Nurse Name: Ada Harris RN Position: [facility] RN Member Role: Primary Care Nurse Name: Radha Montes De Oca RN Position: [facility] RN Member Role: Primary Care Nurse Name: Mira Rajan RN Position: [facility] SN RN Member Role: Primary Care Nurse Name: Nola Bowman RN Position: [facility] RN Member Role: Primary Care Nurse Name: Anita De Jesus RN Position: [facility] ED RN W/OE and Tasks Member Role: Primary Care Nurse Name: Suzi Cowan RN Position: [facility] RN Member Role: Primary Care Nurse Name: Rebeka Ontiveros RN Position: [facility] RN Member Role: Primary Care Nurse Name: Jeremiah Al RN Position: [facility] SN RN Member Role: Primary Care Nurse Name: Regine Guerin RN Position: [facility] RN Member Role: Primary Care Nurse Name: Jocelyn Cristobal RN Position: [facility] SN RN Member Role: Primary Care Nurse Name: Dedra Dumont RN Position: [facility] RN Member Role: Primary Care Nurse Name: Apolonia Easton RN Position: [facility] RN Supv Member Role: Primary Care Nurse Name: Estefania Bhatti RN Position: [facility] RN Member Role: Primary Care Nurse Name: Eulogio Enciso RN Position: [facility] RN Member Role: Primary Care Nurse Name: Kamala Abdi RN Position: [facility] RN Member Role: Primary Care Nurse Name: Aquilino Sarah RN Position: [facility] SN RN Member Role: Primary Care Nurse Name: Concepcion Mondragon RN Position: [facility] RN Member Role: Primary Care Nurse Name: Marcia Kuhn RN Position: [facility] RN Member Role: Primary Care Nurse Name: Adrián Wilcox RN Position: [facility] RN Member Role: Primary Care Nurse Name: Ada Aleman RN Position: [facility] ED RN W/OE and Tasks Member Role: Primary Care Nurse Name: Sharlene Macias Position: [facility] Outreach Member Role: Lifetime Consulting Physician Name: Tyesha Rogers MD Position: [facility] Outreach Member Role: PCP Address: Address: [address] [place] [address]- Name: La Miranda RN Position: [facility] [employer] Sales Representative Member Role: Primary Care Nurse Name: Sunita Anthony RN Position: [facility] RN Member Role: Primary Care Nurse Name: Glendy Gandara RN Position: [facility] SN RN Member Role: Primary Care Nurse Name: Melanie Martinez RN Position: [facility] Onco RN Member Role: Primary Care Nurse Name: Rima Soliz RN Position: [facility] [employer] Sales Representative Member Role: Primary Care Nurse Name: Benjamin Cheatham MD Position: [facility] Psychiatry MD Member Role: Lifetime Consulting Physician Address: Address: [address] [place] [address]- Care Team Related Persons Name: JOSE ROBLEDO Address: home [address] [place] [address] Name: YOHANA FOLEY Address: [place] [address]
--- OUTSIDE RECORDS SUMMARY | 2023-05-11 17:59 | XMS_ITS | Continuity of Care Document ---
Author Name Unknown Organization [facility] Address [address] [place] [address], [address] Floor, [address] [place] [address]- Care Team Providers Care Patient Financial Counselor Name Role Phone Ken VILLELA, Tyesha Primary Care Physician [phone] Encounter [facility] Date(s): 12/29/20 - 01/28/21 [facility], 3rd Floor, [address] [place] [address]- Allergies, Adverse Reactions, Alerts Substance Reaction Severity [...] 10/02/19 12:34:00 EST, Route to Pharmacy Electronically, [facility] [place], [place] -, 159, cm, 10/01/19 13:59:00 EST, [...] 10:48:25 EST Start Date: 07/29/19 Status: Ordered [place] Thyroid 60 mg oral tablet 60 mg, [...] 1 Refills, Maintenance, 03/02/20 16:12:00 EDT, Tablet, [facility] [place], [place] -, 159, cm, 02/28/20 14:16:00 EDT, [...]
--- OUTSIDE RECORDS SUMMARY | 2023-05-11 17:59 | XMS_ITS | Continuity of Care Document ---
Author Name Unknown Organization [facility] Address [address] [place] [address]- Care Team Providers Care Unemployment Insurance Director Name Role Phone Ken VILLELA, Tyesha Primary Care Physician [place] [facility] [place] 12/11/21 [facility] [address] [place] [address]- Attending Physician: Omar Danielle MD Admitting Physician: Omar Danielle MD Referring Physician: Tyesha Rogers MD Allergies, [...]
--- OUTSIDE RECORDS SUMMARY | 2023-05-11 17:59 | XMS_ITS | Continuity of Care Document ---
Author Name Unknown Organization [facility] ter Address [address] [place] [address]- Care Team Providers Care Wildlife Biostation Research Ecologist Name Role Phone Ken VILLELA, Tyesha Primary Care Physician Encounter [facility] [place] Date(s): 08/28/20 - 10/31/[address] [address]- Encounter Diagnosis Multiple sclerosis(Final) - Discharge Disposition: A-D/C Home Attending Physician: Nola Cobb MD Admitting Physician: Nola Cobb MD Referring Physician: Tyesha Rogers MD Allergies, Adverse Reactions, Alerts Substance Reaction Severity Status lithium Active lisinopril Active Depakote Active Tomatoes hives Active Risperdal Active Cats Active Dogs Active [...] 10/02/19 12:34:00 EST, Route to Pharmacy Electronically, [facility] [place], [place] -, 159, cm, 10/01/19 13:59:00 EST, [...] 1 Refills, Maintenance, 03/02/20 16:12:00 EDT, Tablet, [facility] [place], [place] -, 159, cm, 02/28/20 14:16:00 EDT, [...] 4-Mild concentric LVH. ECHO 02-08-12 5MRI 08-20-15 ([facility]-scanned): disc desiccatios, disc bulges and mild [...] 01/14, wrist cutting 9-See MRI done at [facility] 12-09-2015 10-T4-T8 disc bulging with mild left neural foraminal narrowing. MRI 01-29-16 (scanned-done at [facility]) 11-by ex partner, (father of children) Vital Signs Most recent to oldest [Reference Range]: 1 2 Oxygen Saturation [94-100 %] 98 % (08/31/20 1:19 PM) 98 % (08/31/20 11:15 AM) Pulse Rate [55-90 bpm] 74 bpm (08/31/20 1:19 PM) 80 bpm (08/31/20 11:15 AM) Blood Pressure [90-138/55-84 mm Hg] 133/ 74mm Hg (08/31/20 1:19 PM) 143/84mm Hg *H* (08/31/20 11:15 AM) Respiratory Rate [16-30 br/min] 18 br/mi n (08/31/20 1:19 PM) 18 br/min (08/31/20 11:15 AM) Temperature [96.8-100.4 DegF] 97.6 DegF (08/31/20 1:19 PM) 98.0 DegF (08/31/20 11:15 AM) Mode of Delivery (Oxygen) Room air (08/31/20 1:19 PM) Room air (08/31/20 11:15 AM) Temperature Route Oral (08/31/20 1:19 PM) Oral (08/31/20 11:15 AM) Social History Social History Type Response Smoking Status Cigars or pipes megan y within last 30 days entered on: 07/29/19 Sex Female
--- OUTSIDE RECORDS SUMMARY | 2023-05-11 17:59 | XMS_ITS | Continuity of Care Document ---
Author Name Unknown Organization [facility] ter Address [address] [place] [address]- Care Team Providers Care Preventive Medicine Officer Name Role Phone Ken VILLELA, Tyesha Primary Care Physician Encounter [facility] Date(s): 11/30/22 - 11/30/[address] [address]- Discharge Disposition: A-D/C Home Attending Physician: Ada Ruiz MD Admitting Physician: Ada Ruiz MD Referring Physician: Not on Staff, Referring [...] 10:48:25 EST Start Date: 07/29/19 Status: Ordered [place] Thyroid 60 mg oral tablet 60 mg, [...] 8 HOURS Start Date: 06/22/21 Status: Ordered MorPHINE Inj 4 mg, Injection, IV Push Slowly, Every 3 hours for 7 days, PRN for Pain , Moderate, Routine, 11/30/22 15:08:00 EDT, Stop date 12/07/22 15:07:00 EDT Start Date: 11/30/22 Stop Date: 12/01/22 Status: Discontinued multivitamin with minerals Multiple Vitamins with Minerals [...] 4-Mild concentric LVH. ECHO 02-08-12 5MRI 08-20-15 ([facility]-scanned): disc desiccatios, disc bulges and [...] 01/14, wrist cutting 9-See MRI done at [facility] 12-09-2015 10-T4-T8 disc bulging with mild left neural foraminal narrowing. MRI 01-29-16 (scanned-done at [facility]) 11-by ex partner, (father of children) Results Radiology Reports * Exam Date Time Procedure Performing Provider Status 11/30/22 2:59 PM Chest 2 Views Frontal and Lat Betsy Londono; Auth (Verified) Notes: (Chest 2 Views Frontal and Lat) Reason For Exam: Chest Pain;Other: RESULT: Chest 2 Views Frontal and Lat Chest 2 Views Frontal and Lat Hx of Present Illness: Patient with cardiac history presents with left sided chest pain with radiation to left arm and back. Pain started at 1000 today. Pain exacerbated by breathing and movement.; Reason: Other:; Chest Pain; Clinical Question(s): Other: COMPARISON: None. FINDINGS: LINES AND TUBES: None. LUNGS AND PLEURA: Clear lungs. Normal pulmonary vascularity. No pleural effusion. No pneumothorax. HEART, MEDIASTINUM AND CHARLINE: Heart is normal in size. Normal mediastinal and hilar contour. BONES AND SOFT TISSUES: No acute abnormality. IMPRESSION: No acute abnormality. WSN: [id number] Ordering Physician: Luke Cameron Dictated By: Wilfredo Seth MD Dictated Date/Time: 11/30/22 3:11 pm Reviewed By: Wilfredo Seth MD Signed By: Wilfredo Seth MD Signed Date/Time: 11/30/22 3:11 pm Transcribed By: RICCARDO Transcribed Date/Time: 11/30/22 3:07 pm Vital Signs Most recent to oldest [Reference Range]: 1 2 3 Oxygen Saturation [94-100 %] 98 % (11/30/22 4:50 PM) 94 % (11/30/22 1:43 PM) Pulse Rate [55-90 bpm] 76 bpm (11/30/22 4:50 PM) 80 bpm (11/30/22 1:43 PM) Blood Pressure [90-138/55-84 mm Hg] 155/90mm Hg *H* (11/30/22 4:50 PM) 156/74mm Hg *H* (11/30/22 1:43 PM) Respiratory Rate [16-30 br/min] 18 br/min (11/30/22 4:50 PM) 18 br/min (11/30/22 3:57 PM) 16 br/min (11/30/22 1:43 PM) Temperature [96.8-100.4 DegF] 98.5 DegF (11/30/22 4:50 PM) 98.2 DegF (11/30/22 1:43 PM) Mode of Delivery (Oxygen) Room air (11/30/22 4:50 PM) Room air (11/30/22 1:43 PM) Blood pressure sites Arm, right (11/30/22 4:50 PM) Temperature Route Oral (11/30/22 4:50 PM) Oral (11/30/22 1:43 PM) Social History Social History Type Response Smoking Status 5-9 cigarettes (betw een 1/4 to 1/2 pack)/day in last 30 days entered on: 02/03/22 Sex EKG study * Event Display: ECG 12-Lead Authored Date: Please click on pdf link to open report * Event Display: ECG 12-Lead Authored Date: Ventricular Rate: 83 BPM Atrial Rate: 83 BPM P-R Interval: 156 ms QRS Duration: 96 ms Q-T Interval: 390 ms QTC Calculation(Bazett): 458 ms P [place]: 23 degrees R [place]: -8 degrees T [place]: 19 degrees Normal sinus rhythm Moderate voltage criteria for LVH, may be normal variant ( R in aVL , Seymour product ) Borderline ECG When compared with ECG of 22-JUN-2021 16:29, No significant change was found Confirmed by SONG ANGELA MD ([id number]) on 11/30/2022 4:25:32 PM [place]: SONG ANGELA MD Note * BHSPowerscribe , CIS S: TRANSCRIBE Wilfredo Seth MD: VERIFY Event Display: Result: Authored Date: Chest 2 Views Frontal and Lat Hx of Present Illness: Patient with cardiac history presents with left sided chest pain with radiation to left arm and back. Pain started at 1000 today. Pain exacerbated by breathing and movement.; Reason: Other:; Chest Pain; Clinical Question(s): Other: COMPARISON: None. FINDINGS: LINES AND TUBES: None. LUNGS AND PLEURA: Clear lungs. Normal pulmonary vascularity. No pleural effusion. No pneumothorax. HEART, MEDIASTINUM AND CHARLINE: Heart is normal in size. Normal mediastinal and hilar contour. BONES AND SOFT TISSUES: No acute abnormality. IMPRESSION: No acute abnormality. WSN: [id number] Ordering Physician: Luke Cameron Dictated By: Wilfredo Seth MD Dictated Date/Time: 11/30/22 3:11 pm Reviewed By: Wilfredo Seth MD Signed By: Wilfredo Seth MD Signed Date/Time: 11/30/22 3:11 pm Transcribed By: RICCARDO Transcribed Date/Time: 11/30/22 3:07 pm Patient Care team information Care Team Personnel Name: Yana Rogers RN Position: [facility] ED RN W/OE and Tasks Member Role: Primary Care Nurse Name: Kinjal Vivar RN Position: [facility] RN Member Role: Primary Care Nurse Name: Augusta Cespedes RN Position: [facility] RN Member Role: Primary Care Nurse Name: Kyra Lockhart RN Position: [facility] RN Member Role: Primary Care Nurse Name: Jill Allen RN Position: [facility] RN Member Role: Primary Care Nurse Name: Donna Beltre RN Position: [facility] RN Member Role: Primary Care Nurse Name: Carmita Canas RN Position: [facility] Rad RN Member Role: Primary Care Nurse Name: Jasmyne Nice Position: [facility] RN Member Role: Primary Care Nurse Name: Ariane Pritchett RN Position: [facility] RN Supv Member Role: Primary Care Nurse Name: Jolene Bruner RN Position: [facility] RN Member Role: Primary Care Nurse Name: Melissa Urias RN Position: [facility] RN Member Role: Primary Care Nurse Name: Argenis Scruggs RN Position: [facility] ED RN W/OE and Tasks Member Role: Primary Care Nurse Name: Ada Harris RN Position: [facility] RN Member Role: Primary Care Nurse Name: Radha Montes De Oca RN Position: [facility] RN Member Role: Primary Care Nurse Name: Mira Rajan RN Position: [facility] SN RN Member Role: Primary Care Nurse Name: Nola Bowman RN Position: [facility] RN Member Role: Primary Care Nurse Name: Anita De Jesus RN Position: [facility] ED RN W/OE and Tasks Member Role: Primary Care Nurse Name: Suzi Cowan RN Position: [facility] RN Member Role: Primary Care Nurse Name: Rebeka Ontiveros RN Position: [facility] RN Member Role: Primary Care Nurse Name: Jeremiah Al RN Position: [facility] SN RN Member Role: Primary Care Nurse Name: Regine Guerin RN Position: [facility] RN Member Role: Primary Care Nurse Name: Jocelyn Cristobal RN Position: [facility] SN RN Member Role: Primary Care Nurse Name: Dedra Dumont RN Position: [facility] RN Member Role: Primary Care Nurse Name: Apolonia Easton RN Position: [facility] RN Supv Member Role: Primary Care Nurse Name: Estefania Bhatti RN Position: [facility] RN Member Role: Primary Care Nurse Name: Eulogio Enciso RN Position: [facility] RN Member Role: Primary Care Nurse Name: Kamala Abdi RN Position: [facility] RN Member Role: Primary Care Nurse Name: Aquilino Sarah RN Position: [facility] SN RN Member Role: Primary Care Nurse Name: Concepcion Mondragon RN Position: [facility] RN Member Role: Primary Care Nurse Name: Marcia Kuhn RN Position: [facility] RN Member Role: Primary Care Nurse Name: Adrián Wilcox RN Position: [facility] RN Member Role: Primary Care Nurse Name: Ada Aleman RN Position: [facility] ED RN W/OE and Tasks Member Role: Primary Care Nurse Name: Sharlene Macias Position: [facility] Outreach Member Role: Lifetime Consulting Physician Name: Tyesha Rogers MD Position: [facility] Outreach Member Role: PCP Address: Address: [address] [place] [address]- [place] Name: La Miranda RN Position: [facility] Cane Loader Member Role: Primary Care Nurse Name: Sunita Anthony RN Position: [facility] RN Member Role: Primary Care Nurse Name: Glendy Gandara RN Position: [facility] SN RN Member Role: Primary Care Nurse Name: Melanie Martinez RN Position: [facility] Onco RN Member Role: Primary Care Nurse Name: Rima Soliz RN Position: [facility] Cane Loader Member Role: Primary Care Nurse Name: Benjamin Cheatham MD Position: [facility] Psychiatry MD Member Role: Lifetime Consulting Physician Address: Address: [address] [place] [address]- [place] Name: Sung Vance RN Position: [facility] ED RN W/OE and Tasks Member Role: Patient Care Provider Care Team Related Persons Name: JOSE ROBLEDO Address: home [address] [place] [address] Name: YOHANA FOLEY Address: [place] [address]
--- OUTSIDE RECORDS SUMMARY | 2023-05-11 17:59 | XMS_ITS | Continuity of Care Document ---
Author Name Unknown Organization [facility] Address [address] [place] [address], [address] d Floor, [address] [place] [address]- Care Team Providers Care Scrap Sawyer Name Role Phone Ken VILLELA, Tyesha Primary Care Physician [facility]counter [facility] Date(s): 01/18/21 - 02/17/21 [facility] [address] [facility], 3rd Floor, [address] [place] [address]- Allergies, Adverse Reactions, Alerts Substance Reaction Severity [...] 12:34:00 EST, Route to Pharmacy Electronically, [facility] [place], [place] -, 159, cm, 10/01/19 13:59:00 EST, [...] 10:48:25 EST Start Date: 07/29/19 Status: Ordered [place] Thyroid 60 mg oral tablet 60 mg, [...] Refills, Maintenance, 03/02/20 16:12:00 EDT, Tablet, [facility] [place], [place] -, 159, cm, 02/28/20 14:16:00 EDT, [...] 4-Mild concentric LVH. ECHO 02-08-12 5MRI 08-20-15 ([facility]-scanned): disc desiccatios, disc bulges and mild [...] 01/14, wrist cutting 9-See MRI done at [facility] 12-09-2015 10-T4-T8 disc bulging with mild left neural foraminal narrowing. MRI 01-29-16 (scanned-done at [facility]) 11-by ex partner, (father of children) Social History Social History Type Response Smoking Status Cigars or pipes megan y within last 30 days entered on: 07/29/19 Sex Female
--- OUTSIDE RECORDS SUMMARY | 2023-05-11 17:59 | XMS_ITS | Continuity of Care Document ---
Author Name Unknown Organization [facility] Address Unknown Care Team Providers Care Operations Director Name Role Phone Ken VILLELA, Tyesha Primary Care Physician [phone] Encounter [facility] Date(s): 04/15/21 - 05/15/21 [facility] Allergies, Adverse Reactions, Alerts Substance Reaction [...] 10/02/19 12:34:00 EST, Route to Pharmacy Electronically, [facility] [place], [place] -, 159, cm, 10/01/19 13:59:00 EST, [...] 10:48:25 EST Start Date: 07/29/19 Status: Ordered [place] Thyroid 60 mg oral tablet 60 mg, [...] 1 Refills, Maintenance, 03/02/20 16:12:00 EDT, Tablet, [facility] [place], [place] -, 159, cm, 02/28/20 14:16:00 EDT, [...] LVH. ECHO 02-08-12 5MRI 08-20-15 ([facility]-scanned): disc desiccatios, disc bulges [...] cutting 9-See MRI done at [facility] 12-09-2015 10-T4-T8 disc bulging with mild left neural foraminal narrowing. MRI 01-29-16 (scanned-done at [facility]) 11-by ex partner, (father of children) Social History Social History Type Response Smoking Status Cigars or pipes megan y within last 30 days entered on: 07/29/19 Sex Female
--- OUTSIDE RECORDS SUMMARY | 2023-05-11 17:59 | XMS_ITS | Continuity of Care Document ---
Author Name Unknown Organization [facility] Address Unknown Care Team Providers Care Concrete Analyst Name Role Phone Ken VILLELA, Tyesha Primary Care Physician [phone] Encounter [facility] Date(s): 04/22/21 - 05/22/21 [facility] Allergies, Adverse Reactions, Alerts Substance [...] 10/02/19 12:34:00 EST, Route to Pharmacy Electronically, [facility] [place], [place] -, 159, cm, 10/01/19 13:59:00 EST, [...] 10:48:25 EST Start Date: 07/29/19 Status: Ordered [place] Thyroid 60 mg oral tablet 60 mg, [...] 1 Refills, Maintenance, 03/02/20 16:12:00 EDT, Tablet, [facility] [place], [place] -, 159, cm, 02/28/20 14:16:00 EDT, [...] 4-Mild concentric LVH. ECHO 02-08-12 5MRI 08-20-15 ([facility]-scanned): disc desiccatios, disc bulges and mild face [...]
--- OUTSIDE RECORDS SUMMARY | 2023-05-11 17:59 | XMS_ITS | Continuity of Care Document ---
Author Name Unknown Organization [facility] Address Unknown Care Team Providers Care Lye Treater Name Role Phone Ken VILLELA, Tyesha Primary Care Physician Encounter [facility] Date(s): 06/28/21 - 07/28/21 [facility] Allergies, Adverse Reactions, Alerts Substance [...] 10:48:25 EST Start Date: 07/29/19 Status: Ordered [place] Thyroid 60 mg oral tablet 60 mg, [...] Campus) 11-by ex partner, (father of children) Social History Social History Type Response Smoking Status Cigars or pipes megan y within last 30 days entered on: 07/29/19 Sex Female
--- OUTSIDE RECORDS SUMMARY | 2023-05-11 17:59 | XMS_ITS | Continuity of Care Document ---
Author Name Unknown Organization [facility] Address [address] [place] [address]- Care Team Providers Care Water Taxi Driver Name Role Phone Ken VILLELA, Tyesha Primary Care Physician [phone] Encounter [facility] Date(s): 08/12/21 - 11/10/21 [facility] [address] [place] [address]- Attending Physician: Usama VILLELA, Yovani Marrero Admitting Physician: Yovani Forrester MD Allergies, Adverse Reactions, Alerts Substance Reaction [...] 10:48:25 EST Start Date: 07/29/19 Status: Ordered [place] Thyroid 60 mg oral tablet 60 mg, [...] 01/14, wrist cutting 9-See MRI done at [facility] 12-09-2015 10-T4-T8 disc bulging with mild left neural foraminal narrowing. MRI 01-29-16 (scanned-done at [facility]) 11-by ex partner, (father of children) Social History Social History Type Response Smoking Status Cigars or pipes megan y within last 30 days entered on: 07/29/19 Sex Female
--- OUTSIDE RECORDS SUMMARY | 2023-05-11 17:59 | XMS_ITS | Continuity of Care Document ---
Author Name Unknown Organization [facility] Address Unknown Care Team Providers Care Supply Chain Consultant Name Role Phone Ken VILLELA, Tyesha Primary Care Physician Encounter [facility] Date(s): 09/15/21 - 11/11/21 [facility] Attending Physician: Matt JERONIMO, Julio Easton Admitting Physician: Matt JERONIMO, Julio Easton Allergies, Adverse Reactions, Alerts Substance Reaction Severity Status lithium Active lisinopril Active Risperdal Active Depakote Active Tomatoes hives Active Cats Active Dogs Active Other Food [...] 10:48:25 EST Start Date: 07/29/19 Status: Ordered [place] Thyroid 60 mg oral tablet 60 mg, [...] 01/14, wrist cutting 9-See MRI done at [facility] 12-09-2015 10-T4-T8 disc bulging with mild left neural foraminal narrowing. MRI 01-29-16 (scanned-done at [facility]) 11-by ex partner, (father of children) Social History Social History Type Response Smoking Status Cigars or pipes megan y within last 30 days entered on: 07/29/19 Sex Female
--- OUTSIDE RECORDS SUMMARY | 2023-05-11 17:59 | XMS_ITS | Continuity of Care Document ---
Author Name Unknown Organization [facility] Address [address] [place] [address]- [facility]counter [facility] Date[facility]s): 11/05/19 - 11/15/19 [facility] [address] [place] [address]- [facility] Attending Physician: Haley Lorenzo Admitting Physician: Haley [...] EST, Route to Pharmacy Electronically, [facility], [place] -, 159, cm, 10/01/19 13:59:00 EST, Height,... [...] EST, 10/02/19 12:33:00 EST, Capsule, [facility],... Start Date: 10/02/19 Stop Date: 10/02/20 [...] concentric LVH. ECHO 02-08-12 5MRI 08-20-15 ([facility]-scanned): disc desiccatios, disc bulges and mild [...] wrist cutting 9-See MRI done at [facility] 12-09-2015 10-T4-T8 disc bulging with mild left neural foraminal narrowing. MRI 01-29-16 (scanned-done at [facility]) 11-by ex partner, (father of children) Social History Social History Type Response Smoking Status Cigars or pipes megan y within last 30 days entered on: 07/29/19 Sex Female
--- OUTSIDE RECORDS SUMMARY | 2023-05-11 17:59 | XMS_ITS | Continuity of Care Document ---
Author Name Unknown Organization [facility] Address [address] [facility], [address] d Floor, [address] [place] [address]- Care Team Providers Care Radio Officer Name Role Phone Ken VILLELA, Tyesha Primary Care Physician [phone] Encounter [facility] Date(s): 12/01/22 - 12/31/22 [facility] [address], [address] Floor, [address] [place] [address] Allergies, Adverse Reactions, Alerts Substance Reaction Severity Status lithium Active lisinopril Active Contrast Dye Active Pollen Active Risperdal Active Depakote Active Cats Active Dogs Active Other Food Allergy 1, 2 Acti ve Tomatoes hives Active ZyPREXA Active FLUoxetine HCl [...] 10:48:25 EST Start Date: 07/29/19 Status: Ordered [place] Thyroid 60 mg oral tablet 60 mg, [...] 4-Mild concentric LVH. ECHO 02-08-12 5MRI 08-20-15 ([facility]-scanned): disc desiccatios, disc bulges and mild [...] 01/14, wrist cutting 9-See MRI done at [facility] 12-09-2015 10-T4-T8 disc bulging with mild left neural foraminal narrowing. MRI 01-29-16 (scanned-done at [facility]) 11-by ex partner, (father of children) Social History Social History Type Response Smoking Status 5-9 cigarettes (betw een 1/4 to 1/2 pack)/day in last 30 days entered on: 02/03/22 Sex Patient Care team information Care Team Personnel Name: Yana Rogers RN Position: [facility] ED RN W/OE and Tasks Member Role: Primary Care Nurse Name: Kinjal Vivar RN Position: [facility] RN Member Role: Primary Care Nurse Name: Augusta Cespedes RN Position: [facility] RN Member Role: Primary Care Nurse Name: Kyra Lockhart RN Position: [facility] RN Member Role: Primary Care Nurse Name: Jill Allen RN Position: [facility] RN Member Role: Primary Care Nurse Name: Donna Beltre RN Position: [facility] RN Member Role: Primary Care Nurse Name: Carmita Canas RN Position: [facility] Rad RN Member Role: Primary Care Nurse Name: Jasmyne Nice Position: [facility] RN Member Role: Primary Care Nurse Name: Ariane Pritchett RN Position: [facility] RN Supv Member Role: Primary Care Nurse Name: Jolene Bruner RN Position: [facility] RN Member Role: Primary Care Nurse Name: Melissa Urias RN Position: [facility] RN Member Role: Primary Care Nurse Name: Argenis Scruggs RN Position: [facility] ED RN W/OE and Tasks Member Role: Primary Care Nurse Name: Ada Harris RN Position: [facility] RN Member Role: Primary Care Nurse Name: Radha Montes De Oca RN Position: [facility] RN Member Role: Primary Care Nurse Name: Mira Rajan RN Position: [facility] SN RN Member Role: Primary Care Nurse Name: Nola Bowman RN Position: [facility] RN Member Role: Primary Care Nurse Name: Anita De Jesus RN Position: [facility] ED RN W/OE and Tasks Member Role: Primary Care Nurse Name: Suzi Cowan RN Position: [facility] RN Member Role: Primary Care Nurse Name: Rebeka Ontiveros RN Position: [facility] RN Member Role: Primary Care Nurse Name: Jeremiah Al RN Position: [facility] SN RN Member Role: Primary Care Nurse Name: Regine Guerin RN Position: [facility] RN Member Role: Primary Care Nurse Name: Jocelyn Cristobal RN Position: [facility] SN RN Member Role: Primary Care Nurse Name: Dedra Dumont RN Position: [facility] RN Member Role: Primary Care Nurse Name: Apolonia Easton RN Position: [facility] RN Supv Member Role: Primary Care Nurse Name: Estefania Bhatti RN Position: [facility] RN Member Role: Primary Care Nurse Name: Eulogio Enciso RN Position: [facility] RN Member Role: Primary Care Nurse Name: Kamala Abdi RN Position: [facility] RN Member Role: Primary Care Nurse Name: Aquilino Sarah RN Position: [facility] SN RN Member Role: Primary Care Nurse Name: Concepcion Mondragon RN Position: [facility] RN Member Role: Primary Care Nurse Name: Marcia Kuhn RN Position: [facility] RN Member Role: Primary Care Nurse Name: Adrián Wilcox RN Position: [facility] RN Member Role: Primary Care Nurse Name: Ada Aleman RN Position: [facility] ED RN W/OE and Tasks Member Role: Primary Care Nurse Name: Sharlene Macias Position: [facility] Outreach Member Role: Lifetime Consulting Physician Name: Tyesha Rogers MD Position: [facility] Outreach Member Role: PCP Address: Address: [address] [place] [address]- [place] Name: La Miranda RN Position: [facility] [employer] Sales Engineer Member Role: Primary Care Nurse Name: Sunita Anthony RN Position: [facility] RN Member Role: Primary Care Nurse Name: Glendy Gandara RN Position: [facility] SN RN Member Role: Primary Care Nurse Name: Melanie Martinez RN Position: [facility] Onco RN Member Role: Primary Care Nurse Name: Rima Soliz RN Position: [facility] [employer] Sales Engineer Member Role: Primary Care Nurse Name: Benjamin Cheatham MD Position: [facility] Psychiatry MD Member Role: Lifetime Consulting Physician Address: Address: [address] [place] [address]- [place] Care Team Related Persons Name: ROBLEDO JOSE Address: home [address] [place] [address] Name: YOHANA FOLEY Address: [place] [address]
--- OUTSIDE RECORDS SUMMARY | 2023-05-11 18:00 | XMS_ITS | Continuity of Care Document ---
Author Name Unknown Organization [facility] Address Unknown Care Team Providers Care Jackaroo Name Role Phone Ken VILLELA, Tyesha Primary Care Physician [phone] Encounter [facility] Date(s): 12/02/21 - 01/01/22 [facility] Allergies, Adverse Reactions, Alerts Substance Reaction Severity Status lithium Active lisinopril Active Contrast Dye Active Risperdal Active Depakote Active Cats Active Dogs Active Other Food Allergy 1, 2 Acti ve Pollen Active Tomatoes hives Active ZyPREXA Active [...] 10:48:25 EST Start Date: 07/29/19 Status: Ordered [place] Thyroid 60 mg oral tablet 60 mg, [...] 4-Mild concentric LVH. ECHO 02-08-12 5MRI 08-20-15 ([facility]-scanned): disc desiccatios, disc bulges and mild [...] 01/14, wrist cutting 9-See MRI done at [facility] 12-09-2015 10-T4-T8 disc bulging with mild left neural foraminal narrowing. MRI 01-29-16 (scanned-done at [facility]) 11-by ex partner, (father of children) Social History Social History Type Response Smoking Status Cigars or pipes megan y within last 30 days entered on: 07/29/19 Sex Female
--- OUTSIDE RECORDS SUMMARY | 2023-05-11 18:00 | XMS_ITS | Continuity of Care Document ---
Author Name Unknown Organization [facility] Address [address] [place] [address]- Care Team Providers Care Motion And Time Study Teacher Name Role Phone Ken VILLELA, Tyesha Primary Care Physician [phone] Encounter [facility] Date(s): 07/06/21 - 09/29/21 [facility] [address] [place] [address]- Attending Physician: Usama VILLELA, Yovani Marrero Admitting Physician: Usama VILLELA, Yovani Marrero Referring Physician: Tyesha Rogers MD Allergies, Adverse [...] 10:48:25 EST Start Date: 07/29/19 Status: Ordered [place] Thyroid 60 mg oral tablet 60 mg, [...] CE or foraminal nerve root constriction 6-X-Ray 10-22-2012 7-Unspecified mood disorder, with consideration of bipolar [...]
--- OUTSIDE RECORDS SUMMARY | 2023-05-11 18:00 | XMS_ITS | Continuity of Care Document ---
Author Name Unknown Organization [facility] Address [address] [place] [address]- Care Team Providers Care Privacy Specialist Name Role Phone Ken VILLELA, Tyesha Primary Care Physician [phone] Encounter [facility] Date(s): 03/09/23 - 04/08/23 [facility] [address] [place] [address]- Attending Physician: Haley Lorenzo Admitting Physician: AdmHaley [...] 10:48:25 EST Start Date: 07/29/19 Status: Ordered [place] Thyroid 60 mg oral tablet 60 mg, [...] Confirmed Active Encounter for screening colonoscopy for [id number]-celr patient Confirmed Active Encounter for screening colonoscopy [...] 4-Mild concentric LVH. ECHO 02-08-12 5MRI 08-20-15 ([facility]-scanned): disc desiccatios, disc bulges and mild [...] 01/14, wrist cutting 9-See MRI done at [facility] 12-09-2015 10-T4-T8 disc bulging with mild left neural foraminal narrowing. MRI 01-29-16 (scanned-done at [facility]) 11-by ex partner, (father of children) Social History Social History Type Response Smoking Status 5-9 cigarettes (betw een 1/4 to 1/2 pack)/day in last 30 days entered on: 02/03/22 Sex Patient Care team information Care Team Personnel Name: Yana Rogers RN Position: [facility] ED RN W/OE and Tasks Member Role: Primary Care Nurse Name: Kinjal Vivar RN Position: S RN Member Role: Primary Care Nurse Name: Augusta Cespedes RN Position: S RN Member Role: Primary Care Nurse Name: Kyra Lockhart RN Position: [facility] RN Member Role: Primary Care Nurse Name: Jill Allen RN Position: S RN Member Role: Primary Care Nurse Name: Donna Beltre RN Position: [facility] RN Member Role: Primary Care Nurse Name: Carmita Canas RN Position: [facility] Rad RN Member Role: Primary Care Nurse Name: Ariane Pritchett RN Position: [facility] RN Supv Member Role: Primary Care Nurse Name: Jolene Bruner RN Position: [facility] RN Member Role: Primary Care Nurse Name: Melissa Urias RN Position: [facility] RN Member Role: Primary Care Nurse Name: Argenis Scruggs RN Position: [facility] ED RN W/OE and Tasks Member Role: Primary Care Nurse Name: Ada Harris RN Position: [facility] RN Member Role: Primary Care Nurse Name: Radha Montes De Oca RN Position: [facility] RN Member Role: Primary Care Nurse Name: Mira Rajan RN Position: [facility] SN RN Member Role: Primary Care Nurse Name: Nola Bowman RN Position: [facility] RN Member Role: Primary Care Nurse Name: Anita De Jesus RN Position: [facility] ED RN W/OE and Tasks Member Role: Primary Care Nurse Name: Suzi Cowan RN Position: [facility] RN Member Role: Primary Care Nurse Name: Rebeka Ontiveros RN Position: [facility] RN Member Role: Primary Care Nurse Name: Jeremiah Al RN Position: [facility] SN RN Member Role: Primary Care Nurse Name: Regine Guerin RN Position: [facility] RN Member Role: Primary Care Nurse Name: Jocelyn Cristobal RN Position: [facility] SN RN Member Role: Primary Care Nurse Name: Dedra Dumont RN Position: [facility] RN Member Role: Primary Care Nurse Name: Apolonia Easton RN Position: [facility] RN Supv Member Role: Primary Care Nurse Name: Estefania Bhatti RN Position: [facility] RN Member Role: Primary Care Nurse Name: Eulogio Enciso RN Position: [facility] RN Member Role: Primary Care Nurse Name: Kamala Abdi RN Position: [facility] RN Member Role: Primary Care Nurse Name: Aquilino Sarah RN Position: [facility] SN RN Member Role: Primary Care Nurse Name: Concepcion Mondragon RN Position: [facility] RN Member Role: Primary Care Nurse Name: Marcia Kuhn RN Position: [facility] RN Member Role: Primary Care Nurse Name: Adrián Wilcox RN Position: [facility] RN Member Role: Primary Care Nurse Name: Ada Aleman RN Position: [facility] ED RN W/OE and Tasks Member Role: Primary Care Nurse Name: Sharlene Macias Position: [facility] Outreach Member Role: Lifetime Consulting Physician Name: Tyesha Rogers MD Position: [facility] Outreach Member Role: PCP Address: Address: [address] [place] [address]- Name: La Miranda RN Position: [facility] Catering Operations Manager Member Role: Primary Care Nurse Name: Sunita Anthony RN Position: [facility] RN Member Role: Primary Care Nurse Name: Glendy Gandara RN Position: [facility] SN RN Member Role: Primary Care Nurse Name: Melanie Martinez RN Position: [facility] Onco RN Member Role: Primary Care Nurse Name: Rima Soliz RN Position: [facility] Catering Operations Manager Member Role: Primary Care Nurse Name: Benjamin Cheatham MD Position: [facility] Physician - Behavioral Health Member Role: Lifetime Consulting Physician Address: Address: [address] [place] [address]- [place] Care Team Related Persons Name: JOSE ROBLEDO Address: home [address] [place] [address] Name: YOHANA FOLEY Address: [place] [address]
--- OUTSIDE RECORDS SUMMARY | 2023-05-11 18:00 | XMS_ITS | Continuity of Care Document ---
Author Name Unknown Organization [facility] ter Address [address] [place] [address]- [facility]counter [facility] Date(s): 03/05/20 - 03/06/[address] [address]- [facility] Discharge Disposition: A-D/C Home Attending Physician: Denilson Lee MD Admitting Physician: Denilson Lee MD Referring Physician: Yovani Forrester MD Allergies, Adverse Reactions, [...] 10/02/19 12:34:00 EST, Route to Pharmacy Electronically, [facility], [place] -, 159, cm, 10/01/19 13:59:00 EST, Height,... [...] 10/02/20 12:34:00 EST, 10/02/19 12:33:00 EST, Capsule, [facility],... Start Date: 10/02/19 Stop Date: 10/02/20 Status: [...] 1 Refills, Maintenance, 03/02/20 16:12:00 EDT, Tablet, [facility] [place], [place] -, 159, cm, 02/28/20 14:16:00 EDT, [...] 4-Mild concentric LVH. ECHO 02-08-12 5MRI 08-20-15 ([facility]-scanned): disc desiccatios, disc bulges and mild [...] 01/14, wrist cutting 9-See MRI done at [facility] 12-09-2015 10-T4-T8 disc bulging with mild left neural foraminal narrowing. MRI 01-29-16 (scanned-done at [facility]) 11-by ex partner, (father of children) Vital Signs Most recent to oldest [Reference Range]: 1 2 3 4 Height 157 cm (03/06/20 3:24 PM) 157 cm (03/06/20 12:05 PM) 157 cm (03/06/20 8:43 AM) Weight 82 kg (03/06/20 6:55 AM) 82 kg (03/05/20 5:44 PM) 81.5 kg (03/05/20 5:43 PM) Oxygen Saturation [94-100 %] 98 % (03/06/20 3:24 PM) 100 % (03/06/20 12:05 PM) 100 % (03/06/20 8:43 AM) Pulse Rate [55-90 bpm] 69 bpm (03/06/20 3:24 PM) 59 bpm (03/06/20 12:05 PM) 84 bpm (03/06/20 8:43 AM) Body Mass Index [18.5-24.99] 33.27 *>HHI* (03/05/20 5:44 PM) 33.06 *>HHI* (03/05/20 5:43 PM) Blood Pressure [90-138/55-84 mm Hg] 144/85mm Hg *H* (03/06/20 3:24 PM) 144/85mm Hg *H* (03/06/20 12:05 PM) 144/91mm Hg *H* (03/06/20 9:56 AM) 144/91mm Hg *H* (03/06/20 9:56 AM) Respiratory Rate [16-30 br/min] 18 br/min (03/06/20 3:24 PM) 18 br/min (03/06/20 2:49 PM) 18 br/min (03/06/20 1:54 PM) Temperature [96.8-100.4 DegF] 98.0 DegF (03/06/20 3:24 PM) 97.7 DegF (03/06/20 12:05 PM) 97.9 DegF (03/06/20 8:43 AM) Mode of Delivery (Oxygen) Room air (03/06/20 3:24 PM) Room air (03/06/20 12:05 PM) Room air (03/06/20 8:43 AM) Blood pressure sites Arm, left (03/06/20 3:24 PM) Arm, left (03/06/20 12:05 PM) Arm, right (03/06/20 8:43 AM) Temperature Route Oral (03/06/20 3:24 PM) Oral (03/06/20 12:05 PM) Oral (03/06/20 8:43 AM) Dry Weight 82 kg (03/05/20 5:44 PM) Weight Obtained Via Standing scale (03/05/20 5:43 PM) Social History Social History Type Response Smoking Status Cigars or pipes megan y within last 30 days entered on: 07/29/19 Sex Female
--- OUTSIDE RECORDS SUMMARY | 2023-05-11 18:00 | XMS_ITS | Continuity of Care Document ---
Author Name Unknown Organization [facility] Address Unknown Care Team Providers Care Elevator Mechanic Name Role Phone Ken VILLELA, Tyesha Primary Care Physician [phone] Encounter [facility] Date(s): 02/05/21 - 06/05/21 [facility] Attending Physician: Nola Cobb MD Admitting [...] 10/02/19 12:34:00 EST, Route to Pharmacy Electronically, [facility] [place], [place] -, 159, cm, 10/01/19 13:59:00 EST, [...] 10:48:25 EST Start Date: 07/29/19 Status: Ordered [place] Thyroid 60 mg oral tablet 60 mg, [...] Refills, Maintenance, 03/02/20 16:12:00 EDT, Tablet, [facility] [place], [place] -, 159, cm, 02/28/20 14:16:00 EDT, [...] 4-Mild concentric LVH. ECHO 02-08-12 5MRI 08-20-15 ([facility]-scanned): disc desiccatios, disc bulges and mild [...] 01/14, wrist cutting 9-See MRI done at [facility] 12-09-2015 10-T4-T8 disc bulging with mild left neural foraminal narrowing. MRI 01-29-16 (scanned-done at [facility]) 11-by ex partner, (father of children) Social History Social History Type Response Smoking Status Cigars or pipes megan y within last 30 days entered on: 07/29/19 Sex Female
--- OUTSIDE RECORDS SUMMARY | 2023-05-11 18:00 | XMS_ITS | Continuity of Care Document ---
Author Name Unknown Organization [facility] Address Unknown Care Team Providers Care Static Balancer Name Role Phone Ken VILLELA, Tyesha Primary Care Physician [phone] [place] [facility] [place](s): 03/31/22 - 04/30/22 [facility] Allergies, Adverse Reactions, Alerts Substance [...] 10:48:25 EST Start Date: 07/29/19 Status: Ordered [place] Thyroid 60 mg oral tablet 60 mg, [...] 4-Mild concentric LVH. ECHO 02-08-12 5MRI 08-20-15 ([facility]): disc desiccatios, disc bulges and mild [...] 01/14, wrist cutting 9-See MRI done at [facility] 12-09-2015 10-T4-T8 disc bulging with mild left neural foraminal narrowing. MRI 01-29-16 (scanned-done at [facility]) 11-by ex partner, (father of children) Social History Social History Type Response Smoking Status 5-9 cigarettes (betw een 1/4 to 1/2 pack)/day in last 30 days entered on: 02/03/22 Sex
--- OUTSIDE RECORDS SUMMARY | 2023-05-11 18:00 | XMS_ITS | Continuity of Care Document ---
Author Name Unknown Organization [facility] Address [address] [place] [address], [address] Floor, [address] [place] [address]- Care Team Providers Care Assistant To The Vice President Name Role Phone Ken VILLELA, Tyesha Primary Care Physician [facility]counter [facility] Date(s): 04/27/20 - 05/27/20 [facility] [address], [address], [address] [place] [address]- [facility] Referring Physician: Tyesha Rogers MD Allergies, Adverse [...] 01/22/20 12:34:00 EST, Route to Pharmacy Electronically, [facility], [place] -, 159, cm, 10/01/19 13:59:00 [...] 10/02/20 12:34:00 EST, 10/02/19 12:33:00 EST, Capsule, [facility],... Start Date: 10/02/19 Stop Date: 10/02/20 [...] 1 Refills, Maintenance, 03/02/20 16:12:00 EDT, Tablet, [facility] [place], [place] -, 159, cm, 02/28/20 14:16:00 EDT, [...] 4-Mild concentric LVH. ECHO 02-08-12 5MRI 08-20-15 ([facility]-scanned): disc desiccatios, disc bulges and [...] 01/14, wrist cutting 9-See MRI done at [facility] 12-09-2015 10-T4-T8 disc bulging with mild left neural foraminal narrowing. MRI 01-29-16 (scanned-done at [facility]) 11-by ex partner, (father of children) Social History Social History Type Response Smoking Status Cigars or pipes megan y within last 30 days entered on: 07/29/19 Sex Female
--- OUTSIDE RECORDS SUMMARY | 2023-05-11 18:00 | XMS_ITS | Continuity of Care Document ---
Author Name Unknown Organization [facility] Address [address] [place] [address], [address] Floor, [address] [place] [address]- Care Team Providers Care Applied Computer Science Professor Name Role Phone Ken VILLELA, Tyesha Primary Care Physician [facility]counter [facility] Date(s): 10/27/20 - 11/26/20 [facility] [address] [facility], 3rd Floor, [address] [place] [address]- Allergies, Adverse Reactions, Alerts Substance Reaction Severity [...] 10/02/19 12:34:00 EST, Route to Pharmacy Electronically, [facility] [place], [place] -, 159, cm, 10/01/19 13:59:00 EST, [...] 10:48:25 EST Start Date: 07/29/19 Status: Ordered [place] Thyroid 60 mg oral tablet 60 mg, [...] 1 Refills, Maintenance, 03/02/20 16:12:00 EDT, Tablet, [facility] [place], [place] -, 159, cm, 02/28/20 14:16:00 EDT, [...] 4-Mild concentric LVH. ECHO 02-08-12 5MRI 08-20-15 ([facility]-scanned): disc desiccatios, disc bulges and mild [...] 01/14, wrist cutting 9-See MRI done at [facility] 12-09-2015 10-T4-T8 disc bulging with mild left neural foraminal narrowing. MRI 01-29-16 (scanned-done at [facility]) 11-by ex partner, (father of children) Social History Social History Type Response Smoking Status Cigars or pipes megan y within last 30 days entered on: 07/29/19 Sex Female
--- OUTSIDE RECORDS SUMMARY | 2023-05-11 18:00 | XMS_ITS | Continuity of Care Document ---
Author Name Unknown Organization [facility] Address Unknown Care Team Providers Care Technical Consultant Name Role Phone Ken VILLELA, Tyesha Primary Care Physician [facility]counter [facility] Date(s): 07/26/21 - 08/25/21 [facility] Allergies, Adverse Reactions, Alerts [...] 10:48:25 EST Start Date: 07/29/19 Status: Ordered [place] Thyroid 60 mg oral tablet 60 mg, [...] neural foraminal narrowing. MRI 01-29-16 (scanned-done at [facility]) 11-by ex partner, (father of children) Social History Social History Type Response Smoking Status Cigars or pipes megan y within last 30 days entered on: 07/29/19 Sex Female
--- OUTSIDE RECORDS SUMMARY | 2023-05-11 18:00 | XMS_ITS | Continuity of Care Document ---
Author Name Unknown Organization [facility] Address [address] [facility], 3r d Floor, [address] [place] [address]- Care Team Providers Care Collision Mechanic Name Role Phone Ken VILLELA, Tyesha Primary Care Physician Encounter [facility] Date(s): 12/20/22 - 01/19/23 [facility] [address], 3[address] Floor, [address] [place] [address]- Attending Physician: Haley Lorenzo Admitting Physician: AdmtrHaley Referring Physician: Admtr, ArFernando Allergies, Adverse Reactions, Alerts Substance Reaction Severity [...] 10:48:25 EST Start Date: 07/29/19 Status: Ordered [place] Thyroid 60 mg oral tablet 60 mg, [...] 4-Mild concentric LVH. ECHO 02-08-12 5MRI 08-20-15 ([facility]-scanned): disc desiccatios, disc bulges and [...] 01/14, wrist cutting 9-See MRI done at [facility] 12-09-2015 10-T4-T8 disc bulging with mild left neural foraminal narrowing. MRI 5-20-16 (scanned-done at [facility]) 11-by ex partner, (father of children) Social History Social History Type Response Smoking Status 5-9 cigarettes (betw een 1/4 to 1/2 pack)/day in last 30 days entered on: 02/03/22 Sex Patient Care team information Care Team Personnel Name: Yana Rogers RN Position: [facility] ED RN W/OE and Tasks Member Role: Primary Care Nurse Name: Kinjal Vivar RN Position: [facility] RN Member Role: Primary Care Nurse Name: Augusta Cespedes RN Position: [facility] RN Member Role: Primary Care Nurse Name: Kyra Lockhart RN Position: [facility] RN Member Role: Primary Care Nurse Name: Jill Allen RN Position: [facility] RN Member Role: Primary Care Nurse Name: Donna Beltre RN Position: [facility] RN Member Role: Primary Care Nurse Name: Carmita Canas RN Position: [facility] Rad RN Member Role: Primary Care Nurse Name: Jasmyne Nice Position: [facility] RN Member Role: Primary Care Nurse Name: Ariane Pritchett RN Position: [facility] RN Supv Member Role: Primary Care Nurse Name: Jolene Bruner RN Position: [facility] RN Member Role: Primary Care Nurse Name: Melissa Urias RN Position: [facility] RN Member Role: Primary Care Nurse Name: Argenis Scruggs RN Position: [facility] ED RN W/OE and Tasks Member Role: Primary Care Nurse Name: Ada Harris RN Position: [facility] RN Member Role: Primary Care Nurse Name: Radha Montes De Oca RN Position: [facility] RN Member Role: Primary Care Nurse Name: Mira Rajan RN Position: [facility] SN RN Member Role: Primary Care Nurse Name: Nola Bowman RN Position: [facility] RN Member Role: Primary Care Nurse Name: Anita De Jesus RN Position: [facility] ED RN W/OE and Tasks Member Role: Primary Care Nurse Name: Suzi Cowan RN Position: [facility] RN Member Role: Primary Care Nurse Name: Rebeka Ontiveros RN Position: [facility] RN Member Role: Primary Care Nurse Name: Jeremiah Al RN Position: [facility] SN RN Member Role: Primary Care Nurse Name: Regine Guerin RN Position: [facility] RN Member Role: Primary Care Nurse Name: Jocelyn Cristobal RN Position: [facility] SN RN Member Role: Primary Care Nurse Name: Dedra Dumont RN Position: [facility] RN Member Role: Primary Care Nurse Name: Apolonia Easton RN Position: [facility] RN Supv Member Role: Primary Care Nurse Name: Estefania Bhatti RN Position: [facility] RN Member Role: Primary Care Nurse Name: Eulogio Enciso RN Position: [facility] RN Member Role: Primary Care Nurse Name: Kamala Abdi RN Position: [facility] RN Member Role: Primary Care Nurse Name: Aquilino Sarah RN Position: [facility] SN RN Member Role: Primary Care Nurse Name: Concepcion Mondragon RN Position: [facility] RN Member Role: Primary Care Nurse Name: Marcia Kuhn RN Position: [facility] RN Member Role: Primary Care Nurse Name: Adrián Wilcox RN Position: [facility] RN Member Role: Primary Care Nurse Name: Ada Aleman RN Position: [facility] ED RN W/OE and Tasks Member Role: Primary Care Nurse Name: Sharlene Macias Position: [facility] Outreach Member Role: Lifetime Consulting Physician Name: Tyesha Rogers MD Position: [facility] Outreach Member Role: PCP Address: Address: [address] [place] [address]- [place] Name: La Miranda RN Position: [facility] Coffee Grinder Member Role: Primary Care Nurse Name: Sunita Anthony RN Position: [facility] RN Member Role: Primary Care Nurse Name: Glendy Gandara RN Position: [facility] SN RN Member Role: Primary Care Nurse Name: Melanie Martinez RN Position: [facility] Onco RN Member Role: Primary Care Nurse Name: Rima Soliz RN Position: [facility] Coffee Grinder Member Role: Primary Care Nurse Name: Benjamin Cheatham MD Position: [facility] Psychiatry MD Member Role: Lifetime Consulting Physician Address: Address: [address] [place] [address]- [place] Care Team Related Persons Name: JOSE ROBLEDO Address: home [address] [place] [address] Name: YOHANA FOLEY Address: [place] [address]
--- OUTSIDE RECORDS SUMMARY | 2023-05-11 18:00 | XMS_ITS | Continuity of Care Document ---
Author Name Unknown Organization [facility] Address [address] [place] [address]- Care Team Providers Care Laboratory Technical Specialist Name Role Phone Ken VILLELA, Tyesha Primary Care Physician [facility]s): 11/11/21 - 12/11/21 [facility] [address] [place] [address]- Attending Physician: Haley Lorenzo Admitting Physician: AdmtrHaley [...] 10:48:25 EST Start Date: 07/29/19 Status: Ordered [place] Thyroid 60 mg oral tablet 60 mg, [...] 01/14, wrist cutting 9-See MRI done at [facility] 12-09-2015 10-T4-T8 disc bulging with mild left neural foraminal narrowing. MRI 01-29-16 (scanned-done at [facility]) 11-by ex partner, (father of children) Social History Social History Type Response Smoking Status Cigars or pipes megan y within last 30 days entered on: 07/29/19 Sex Female
--- OUTSIDE RECORDS SUMMARY | 2023-05-11 18:00 | XMS_ITS | Continuity of Care Document ---
Author Name Unknown Organization [facility] Address [address] [place] [address], [address]r d Floor, [address] [place] [address]- Care Team Providers Care Manager Enrollment Name Role Phone Ken VILLELA, Tyesha Primary Care Physician [phone] Encounter [facility] Date(s): 02/24/21 - 03/26/21 [facility] [address] [facility], 3rd Floor, [address] [place] [address]- Allergies, Adverse Reactions, Alerts Substance Reaction Severity [...] 10/02/19 12:34:00 EST, Route to Pharmacy Electronically, [facility] - -, 159, cm, 10/01/19 13:59:00 EST, Height,... [...] 10:48:25 EST Start Date: 07/29/19 Status: Ordered [place] Thyroid 60 mg oral tablet 60 mg, [...] 1 Refills, Maintenance, 03/02/20 16:12:00 EDT, Tablet, [facility] - -, 159, cm, 02/28/20 14:16:00 EDT, Height, [...] 4-Mild concentric LVH. ECHO 02-08-12 5MRI 08-20-15 ([facility]-scanned): disc desiccatios, disc bulges and mild [...] 01/14, wrist cutting 9-See MRI done at [facility] 12-09-2015 10-T4-T8 disc bulging with mild left neural foraminal narrowing. MRI 01-29-16 (scanned-done at [facility]) 11-by ex partner, (father of children) Social History Social History Type Response Smoking Status Cigars or pipes megan y within last 30 days entered on: 07/29/19 Sex Female
--- OUTSIDE RECORDS SUMMARY | 2023-05-11 18:00 | XMS_ITS | Continuity of Care Document ---
Author Name Unknown Organization [facility] ter Address [address] [place] [address]- Care Team Providers Care Paint And Table Edger Name Role Phone Ken VILLELA, Tyesha Primary Care Physician [phone] Encounter [facility] Date(s): 02/21/23 - 04/02/[address] [address] Attending Physician: Mike JERONIMO, Adrián Gates Admitting [...] 10:48:25 EST Start Date: 07/29/19 Status: Ordered [place] Thyroid 60 mg oral tablet 60 mg, [...] Confirmed Active Encounter for screening colonoscopy for ool-jnup-lhtz patient Confirmed Active Encounter for screening colonoscopy [...] 4-Mild concentric LVH. ECHO 02-08-12 5MRI 08-20-15 ([facility]-scanned): disc desiccatios, disc bulges and [...] 01/14, wrist cutting 9-See MRI done at [facility] 12-09-2015 10-T4-T8 disc bulging with mild left neural foraminal narrowing. MRI 5-20-16 (scanned-done at [facility]) 11-by ex partner, (father of children) Social History Social History Type Response Smoking Status 5-9 cigarettes (betw een 1/4 to 1/2 pack)/day in last 30 days entered on: 02/03/22 Sex Patient Care team information Care Team Personnel Name: Yana Rogers RN Position: [facility] ED RN W/OE and Tasks Member Role: Primary Care Nurse Name: Kinjal Vivar RN Position: [facility] RN Member Role: Primary Care Nurse Name: Augusta Cespedes RN Position: S RN Member Role: Primary Care Nurse Name: Kyra Lockhart RN Position: [facility] RN Member Role: Primary Care Nurse Name: Jill Allen RN Position: [facility] RN Member Role: Primary Care Nurse Name: Donna Beltre RN Position: [facility] RN Member Role: Primary Care Nurse Name: Carmita Canas RN Position: [facility] Rad RN Member Role: Primary Care Nurse Name: Ariane Pritchett RN Position: [facility] RN Supv Member Role: Primary Care Nurse Name: Jolene Bruner RN Position: [facility] RN Member Role: Primary Care Nurse Name: Melissa Urias RN Position: [facility] RN Member Role: Primary Care Nurse Name: Argenis Scruggs RN Position: [facility] ED RN W/OE and Tasks Member Role: Primary Care Nurse Name: Ada Harris RN Position: [facility] RN Member Role: Primary Care Nurse Name: Radha Montes De Oca RN Position: [facility] RN Member Role: Primary Care Nurse Name: Mira Rajan RN Position: [facility] SN RN Member Role: Primary Care Nurse Name: Nola Bowman RN Position: [facility] RN Member Role: Primary Care Nurse Name: Anita De Jesus RN Position: [facility] ED RN W/OE and Tasks Member Role: Primary Care Nurse Name: Suzi Cowan RN Position: [facility] RN Member Role: Primary Care Nurse Name: Rebeka Ontiveros RN Position: [facility] RN Member Role: Primary Care Nurse Name: Jeremiah Al RN Position: [facility] SN RN Member Role: Primary Care Nurse Name: Regine Guerin RN Position: [facility] RN Member Role: Primary Care Nurse Name: Jocelyn Cristobal RN Position: [facility] SN RN Member Role: Primary Care Nurse Name: Dedra Dumont RN Position: [facility] RN Member Role: Primary Care Nurse Name: Apolonia Easton RN Position: [facility] RN Supv Member Role: Primary Care Nurse Name: Estefania Bhatti RN Position: [facility] RN Member Role: Primary Care Nurse Name: Eulogio Enciso RN Position: [facility] RN Member Role: Primary Care Nurse Name: Kamala Abdi RN Position: [facility] RN Member Role: Primary Care Nurse Name: Aquilino Sarah RN Position: [facility] SN RN Member Role: Primary Care Nurse Name: Concepcion Mondragon RN Position: [facility] RN Member Role: Primary Care Nurse Name: Marcia Kuhn RN Position: [facility] RN Member Role: Primary Care Nurse Name: Adrián Wilcox RN Position: [facility] RN Member Role: Primary Care Nurse Name: Ada Aleman RN Position: [facility] ED RN W/OE and Tasks Member Role: Primary Care Nurse Name: Sharlene Macias Position: [facility] Outreach Member Role: Lifetime Consulting Physician Name: Tyesha Rogers MD Position: [facility] Outreach Member Role: PCP Address: Address: [address] [place] [address]- [place] Name: La Miranda RN Position: [facility] Slitting Machine Operator Member Role: Primary Care Nurse Name: Sunita Anthony RN Position: [facility] RN Member Role: Primary Care Nurse Name: Glendy Gandara RN Position: [facility] SN RN Member Role: Primary Care Nurse Name: Melanie Martinez RN Position: [facility] Onco RN Member Role: Primary Care Nurse Name: Rima Soliz RN Position: [facility] Slitting Machine Operator Member Role: Primary Care Nurse Name: Benjamin Cheatham MD Position: [facility] Physician - Behavioral Health Member Role: Lifetime Consulting Physician Address: Address: [address] [place] [address]- [place] Care Team Related Persons Name: JOSE ROBLEDO Address: home [address] [place] [address] Name: YOHANA [place]LEY Address: [place] [address]
--- OUTSIDE RECORDS SUMMARY | 2023-05-11 18:00 | XMS_ITS | Continuity of Care Document ---
Author Name Unknown Organization [facility] ter Address [address] [place] [address]- Care Team Providers Care Footwear Stitcher Name Role Phone Ken VILLELA, Tyesha Primary Care Physician Encounter [facility] [place] Date(s): 07/07/21 - 08/25/[address] [address] Attending Physician: Nola Cobb MD Admitting [...] 10:48:25 EST Start Date: 07/29/19 Status: Ordered [place] Thyroid 60 mg oral tablet 60 mg, [...]
--- OUTSIDE RECORDS SUMMARY | 2023-05-11 18:00 | XMS_ITS | Continuity of Care Document ---
Author Name Unknown Organization [facility] Adult Medicine Address [address] [place] [address]- Care Team Providers Care Stable Helper Name Role Phone Ken VILLELA, Tyesha Primary Care Physician [phone] Encounter [facility] Date(s): 08/18/22 - 09/18/22 [facility] Adult Medicine [address] [place] [address]- Attending Physician: Donald Santacruz MD Admitting Physician: Donald Santacruz MD Allergies, Adverse Reactions, Alerts Substance Reaction [...] 10:48:25 EST Start Date: 07/29/19 Status: Ordered [place] Thyroid 60 mg oral tablet 60 [...] 4-Mild concentric LVH. ECHO 02-08-12 5MRI 08-20-15 ([facility]-scanned): disc desiccatios, disc bulges and mild [...] 01/14, wrist cutting 9-See MRI done at [facility] 12-09-2015 10-T4-T8 disc bulging with mild left neural foraminal narrowing. MRI 01-29-16 (scanned-done at [facility]) 11-by ex partner, (father of children) Social History Social History Type Response Smoking Status 5-9 cigarettes (betw een 1/4 to 1/2 pack)/day in last 30 days entered on: 02/03/22 Sex Patient Care team information Care Team Personnel Name: Yana Rogers RN Position: [facility] ED RN W/OE and Tasks Member Role: Primary Care Nurse Name: Kinjal Vivar RN Position: S RN Member Role: Primary Care Nurse Name: Augusta Cespedes RN Position: [facility] RN Member Role: Primary Care Nurse Name: Kyra Lockhart RN Position: [facility] RN Member Role: Primary Care Nurse Name: Jill Allen RN Position: [facility] RN Member Role: Primary Care Nurse Name: Donna Beltre RN Position: [facility] RN Member Role: Primary Care Nurse Name: Carmita Canas RN Position: [facility] Rad RN Member Role: Primary Care Nurse Name: Jasmyne Nice Position: [facility] RN Member Role: Primary Care Nurse Name: Ariane Pritchett RN Position: [facility] RN Supv Member Role: Primary Care Nurse Name: Jolene Bruner RN Position: [facility] RN Member Role: Primary Care Nurse Name: Melissa Urias RN Position: [facility] RN Member Role: Primary Care Nurse Name: Argenis Scruggs RN Position: [facility] ED RN W/OE and Tasks Member Role: Primary Care Nurse Name: Ada Harris RN Position: [facility] RN Member Role: Primary Care Nurse Name: Radha Montes De Oca RN Position: [facility] RN Member Role: Primary Care Nurse Name: Mira Rajan RN Position: [facility] SN RN Member Role: Primary Care Nurse Name: Nola Bowman RN Position: [facility] RN Member Role: Primary Care Nurse Name: Anita De Jesus RN Position: [facility] ED RN W/OE and Tasks Member Role: Primary Care Nurse Name: Suzi Cowan RN Position: [facility] RN Member Role: Primary Care Nurse Name: Rebeka Ontiveros RN Position: [facility] RN Member Role: Primary Care Nurse Name: Jeremiah Al RN Position: [facility] RN Member Role: Primary Care Nurse Name: Regine Guerin RN Position: [facility] RN Member Role: Primary Care Nurse Name: Jocelyn Cristobal RN Position: [facility] SN RN Member Role: Primary Care Nurse Name: Dedra Dumont RN Position: [facility] RN Member Role: Primary Care Nurse Name: Apolonia Easton RN Position: [facility] RN Supv Member Role: Primary Care Nurse Name: Estefania Bhatti RN Position: [facility] RN Member Role: Primary Care Nurse Name: Eulogio Enciso RN Position: [facility] RN Member Role: Primary Care Nurse Name: Kamala Abdi RN Position: [facility] RN Member Role: Primary Care Nurse Name: Aquilino Sarah RN Position: [facility] SN RN Member Role: Primary Care Nurse Name: Stephanie Milian RN Position: [facility] RN Member Role: Primary Care Nurse Name: Concepcion Mondragon RN Position: [facility] RN Member Role: Primary Care Nurse Name: Marcia Kuhn RN Position: [facility] RN Member Role: Primary Care Nurse Name: Adrián Wilcox RN Position: [facility] RN Member Role: Primary Care Nurse Name: Ada Aleman RN Position: [facility] ED RN W/OE and Tasks Member Role: Primary Care Nurse Name: Sharlene Macias Position: [facility] Outreach Member Role: Lifetime Consulting Physician Name: Tyesha Rogers MD Position: [facility] Outreach Member Role: PCP Address: Address: [address] [place] [address]- [place] Name: La Miranda RN Position: [facility] Real Estate Valuer Member Role: Primary Care Nurse Name: Sunita Anthony RN Position: [facility] RN Member Role: Primary Care Nurse Name: Glendy Gandara RN Position: [facility] SN RN Member Role: Primary Care Nurse Name: Melanie Martinez RN Position: [facility] Onco RN Member Role: Primary Care Nurse Name: Rima Soliz RN Position: [facility] Real Estate Valuer Member Role: Primary Care Nurse Name: Benjamin Cheatham MD Position: [facility] Psychiatry MD Member Role: Lifetime Consulting Physician Address: Address: [address] [place] [address]- [place] Care Team Related Persons Name: JOSE ROBLEDO Address: [place] [address] Name: YOHANA FOLEY Address: [place] [address]
--- OUTSIDE RECORDS SUMMARY | 2023-05-11 18:00 | XMS_ITS | Continuity of Care Document ---
Author Name Unknown Organization [facility] ter Address [address] [place] [address]- Care Team Providers Care Animal Control Licensing Worker Name Role Phone Ken VILLELA, Tyesha Primary Care Physician Encounter [facility] Date(s): 03/16/21 - 06/24/[address] [address] Attending Physician: Nola Cobb MD Admitting Physician: Nola Cobb MD Referring Physician: Nola Cobb MD Allergies, Adverse Reactions, Alerts Substance Reaction Severity Status lithium Active lisinopril Active ZyPREXA Active SEROquel Active Risperdal Active Depakote Active Cats Active Dogs Active Other Food Allergy 1, 2 Acti ve Contrast Dye Active Pollen Active Tomatoes hives Active FLUoxetine HCl Fluoxetine Active 1broccoli and [...] 10:48:25 EST Start Date: 07/29/19 Status: Ordered [place] Thyroid 60 mg oral tablet 60 mg, [...] 01/14, wrist cutting 9-See MRI done at [facility] 12-09-2015 10-T4-T8 disc bulging with mild left neural foraminal narrowing. MRI 01-29-16 (scanned-done at [facility]) 11-by ex partner, (father of children) Social History Social History Type Response Smoking Status Cigars or pipes megan y within last 30 days entered on: 07/29/19 Sex Female
--- OUTSIDE RECORDS SUMMARY | 2023-05-11 18:00 | XMS_ITS | Continuity of Care Document ---
Author Name Unknown Organization [facility] ter Address [address] [place] [address]- Care Team Providers Care Plant Buyer Name Role Phone Ken VILLELA, Tyesha Primary Care Physician Encounter [facility] Date(s): 11/04/20 - 01/30/[address] [address] Attending Physician: Nola Cobb MD Admitting Physician: [...] 10/02/19 12:34:00 EST, Route to Pharmacy Electronically, [facility] [place] [place] -, 159, cm, 10/01/19 13:59:00 EST, [...] 10:48:25 EST Start Date: 07/29/19 Status: Ordered [place] Thyroid 60 mg oral tablet 60 mg, [...] 1 Refills, Maintenance, 03/02/20 16:12:00 EDT, Tablet, [facility] [place] [place] -, 159, cm, 02/28/20 14:16:00 EDT, [...] 4-Mild concentric LVH. ECHO 02-08-12 5MRI 08-20-15 ([facility]-scanned): disc desiccatios, disc bulges and mild [...] 01/14, wrist cutting 9-See MRI done at [facility] 12-09-2015 10-T4-T8 disc bulging with mild left neural foraminal narrowing. MRI 01-29-16 (scanned-done at [facility]) 11-by ex partner, (father of children) Social History Social History Type Response Smoking Status Cigars or pipes megan y within last 30 days entered on: 07/29/19 Sex Female
--- OUTSIDE RECORDS SUMMARY | 2023-05-11 18:00 | XMS_ITS | Continuity of Care Document ---
Author Name Unknown Organization [facility] ter Address [address] [place] [address]- Care Team Providers Care Automotive Service Technician Name Role Phone Ken VILLELA, Tyesha Primary Care Physician Encounter [facility] [place] Date(s): 06/22/21 - 06/24/[address] [address]- Encounter Diagnosis Weakness(Final) - 06/22/21 Dysarthria(Final) - 06/22/21 Discharge Disposition: A-D/C Home Attending Physician: Ros Cortez MD Admitting Physician: Jacinto Groves DO Referring Physician: Not on Staff, Referring MD [...] 10:48:25 EST Start Date: 07/29/19 Status: Ordered [place] Thyroid 60 mg oral tablet 60 mg, [...] Requisition Start Date: 07/23/18 Status: Ordered losartan 25 mg oral tablet 75 mg, Tablet, By Mouth, 06/24/21 9:00:00 EDT Start Date: 06/24/21 Stop Date: 06/24/21 Status: Completed metFORMIN 1000 mg oral tablet 1 tablet [...] oral capsule 1 mg, Capsule, By Mouth, 06/24/21 9:00:00 EDT Start Date: 06/24/21 Stop Date: 06/24/21 Status: Completed Suboxone 8 mg-2 mg sublingual film See [...] Hospital) 11-by ex partner, (father of children) Results Radiology Reports * Exam Date Time Procedure Performing Provider Status 06/22/21 5:19 PM Chest Portable Brenda Adams; Kristin ( Verified) Notes: (Chest Portable) Reason For Exam: Stroke;Other: RESULT: Chest Portable Chest Portable Hx of Present Illness: Left sided facial droop, weakness, and altered speech from infusion center. Hx of MS; Reason: Other:; Stroke; Clinical Question(s): CHF COMPARISON: X-ray 11/16/2020. FINDINGS: LINES AND TUBES: None. LUNGS AND PLEURA: Clear lungs. Normal pulmonary vascularity. No pleural effusion. No pneumothorax. HEART, MEDIASTINUM AND CHARLINE: Heart is normal in size. Normal upper mediastinal and hilar contour. BONES AND SOFT TISSUES: No acute abnormality. IMPRESSION: No acute abnormality. WSN: [id number] Ordering Physician: Henry Baxter Dictated By: Jeremiah Duncan MD Dictated Date/Time: 06/22/21 5:22 pm Reviewed By: Jeremiah Duncan MD Signed By: Jeremiah Duncan MD Signed Date/Time: 06/22/21 5:22 pm Transcribed By: RICCARDO Transcribed Date/Time: 06/22/21 5:22 pm Vital Signs Most recent to oldest [Reference Range]: 1 2 3 Weight 84.5 kg (06/22/21 8:17 PM) Oxygen Saturation [94-100 %] 97 % (06/24/21 11:59 AM) 100 % (06/24/21 8:09 AM) 99 % (06/24/21 4:00 AM) Pulse Rate [55-90 bpm] 75 bpm (06/24/21 11:59 AM) 80 bpm (06/24/21 8:09 AM) 62 bpm (06/24/21 4:00 AM) Blood Pressure [90-138/55-84 mm Hg] 117/80mm Hg (06/24/21 11:59 AM) 132/86mm Hg (06/24/21 9:09 AM) 132/86mm Hg (06/24/21 9:07 AM) Respiratory Rate [16-30 br/min] 18 br/min (06/24/21 11:59 AM) 18 br/min (06/24/21 8:09 AM) 18 br/min (06/24/21 4:00 AM) Temperature [96.8-100.4 DegF] 97.4 DegF (06/24/21 11:59 AM) 97.2 DegF (06/24/21 8:09 AM) 97.4 DegF (06/24/21 4:00 AM) Liters per Minute 0 L/min (06/24/21 4:00 AM) 0 L/min (06/23/21 11:19 PM) 0 L/min (06/23/21 7:36 PM) Mode of Delivery (Oxygen) Room air (06/24/21 11:59 AM) Room air (06/24/21 8:09 AM) Room air (06/24/21 4:00 AM) Blood pressure sites Arm, right (06/24/21 11:59 AM) Arm, right (06/24/21 8:09 AM) Arm, right (06/24/21 4:00 AM) Temperature Route Temporal (06/24/21 11:59 AM) Temporal (06/24/21 8:09 AM) Temporal (06/24/21 4:00 AM) Weight Obtained Via Bed scale (06/22/21 8:17 PM) Social History Social History Type Response Smoking Status Cigars or pipes megan y within last 30 days entered on: 07/29/19 Sex Female
--- OUTSIDE RECORDS SUMMARY | 2023-05-11 18:01 | XMS_ITS | Continuity of Care Document ---
Author Name Unknown Organization [facility] Address [address] [place] [address], [address] d Floor, [address] [place] [address]- Care Team Providers Care Legal Mediator Name Role Phone Ken VILLELA, Tyesha Primary Care Physician [phone] Encounter [facility] Date(s): 03/12/21 - 04/11/21 [facility] [address] [facility], 3rd Floor, [address] [place] [address]- Allergies, Adverse Reactions, Alerts Substance Reaction Severity [...] 12:34:00 EST, Route to Pharmacy Electronically, [facility] [place], [place] -, 159, cm, 10/01/19 13:59:00 EST, [...] 10:48:25 EST Start Date: 07/29/19 Status: Ordered [place] Thyroid 60 mg oral tablet 60 mg, [...] Refills, Maintenance, 03/02/20 16:12:00 EDT, Tablet, [facility] [place], [place] -, 159, cm, 02/28/20 14:16:00 EDT, [...] ECHO 02-08-12 5MRI 08-20-15 ([facility]-scanned): disc desiccatios, disc bulges and mild [...] 9-See MRI done at [facility] 12-09-2015 10-T4-T8 disc bulging with mild left neural foraminal narrowing. MRI 01-29-16 (scanned-done at [facility]) 11-by ex partner, (father of children) Social History Social History Type Response Smoking Status Cigars or pipes megan y within last 30 days entered on: 07/29/19 Sex Female
--- OUTSIDE RECORDS SUMMARY | 2023-05-11 18:01 | XMS_ITS | Continuity of Care Document ---
Author Name Unknown Organization [facility] Address Unknown Care Team Providers Care Tank Truck Loader Name Role Phone Ken VILLELA, Tyesha Primary Care Physician Encounter [facility] Date(s): 10/12/21 - 11/11/21 [facility] Attending Physician: Haley Lorenzo Admitting [...] 10:48:25 EST Start Date: 07/29/19 Status: Ordered [place] Thyroid 60 mg oral tablet 60 mg, [...] cutting 9-See MRI done at [facility] 12-09-2015 10-T4-T8 disc bulging with mild left neural foraminal narrowing. MRI 01-29-16 (scanned-done at [facility]) 11-by ex partner, (father of children) Social History Social History Type Response Smoking Status Cigars or pipes megan y within last 30 days entered on: 07/29/19 Sex Female
--- OUTSIDE RECORDS SUMMARY | 2023-05-11 18:01 | XMS_ITS | Continuity of Care Document ---
Author Name Unknown Organization [facility] ter Address [address] [place] [address]- Care Team Providers Care Manager Packaging Name Role Phone Ken VILLELA, Tyesha Primary Care Physician [phone] Encounter [facility] Date(s): 12/01/22 - 02/22/[address] [id number] Attending Physician: Julio Carlson NP Admitting Physician: Julio Carlson NP Referring Physician: Julio Carlson NP Allergies, Adverse Reactions, Alerts Substance Reaction [...] 10:48:25 EST Start Date: 07/29/19 Status: Ordered [place] Thyroid 60 mg oral tablet 60 mg, [...] Confirmed Active Encounter for screening colonoscopy for [id number] patient Confirmed Active Encounter for screening colonoscopy [...] LVH. ECHO 02-08-12 5MRI 08-20-15 ([facility]-scanned): disc desiccatios, disc bulges and [...] cutting 9-See MRI done at [facility] 12-09-2015 10-T4-T8 disc bulging with mild left neural foraminal narrowing. MRI 01-29-16 (scanned-done at [facility]) 11-by ex partner, (father of children) Social History Social History Type Response Smoking Status 5-9 cigarettes (betw een 1/4 to 1/2 pack)/day in last 30 days entered on: 02/03/22 Sex Patient Care team information Care Team Personnel Name: Yana Rogers RN Position: [facility] ED RN W/OE and Tasks Member Role: Primary Care Nurse Name: Kinjal Vivar RN Position: S RN Member Role: Primary Care Nurse Name: Augusta Cespedes RN Position: [facility] RN Member Role: Primary Care Nurse Name: Kyra Lockhart RN Position: [facility] RN Member Role: Primary Care Nurse Name: Jill Allen RN Position: [facility] RN Member Role: Primary Care Nurse Name: Donna Beltre RN Position: [facility] RN Member Role: Primary Care Nurse Name: Carmita Canas RN Position: [facility] Rad RN Member Role: Primary Care Nurse Name: Ariane Pritchett RN Position: [facility] RN Supv Member Role: Primary Care Nurse Name: Jolene Bruner RN Position: [facility] RN Member Role: Primary Care Nurse Name: Melissa Urias RN Position: [facility] RN Member Role: Primary Care Nurse Name: Argenis Scruggs RN Position: [facility] ED RN W/OE and Tasks Member Role: Primary Care Nurse Name: Ada Harris RN Position: [facility] RN Member Role: Primary Care Nurse Name: Radha Montes De Oca RN Position: [facility] RN Member Role: Primary Care Nurse Name: Mira Rajan RN Position: [facility] SN RN Member Role: Primary Care Nurse Name: Nola Bowman RN Position: [facility] RN Member Role: Primary Care Nurse Name: Anita De Jesus RN Position: [facility] ED RN W/OE and Tasks Member Role: Primary Care Nurse Name: Suzi Cowan RN Position: [facility] RN Member Role: Primary Care Nurse Name: Rebeka Ontiveros RN Position: [facility] RN Member Role: Primary Care Nurse Name: Jeremiah Al RN Position: [facility] SN RN Member Role: Primary Care Nurse Name: Regine Guerin RN Position: [facility] RN Member Role: Primary Care Nurse Name: Jocelyn Cristobal RN Position: [facility] SN RN Member Role: Primary Care Nurse Name: Dedra Dumont RN Position: [facility] RN Member Role: Primary Care Nurse Name: Apolonia Easton RN Position: [facility] RN Supv Member Role: Primary Care Nurse Name: Estefania Bhatti RN Position: [facility] RN Member Role: Primary Care Nurse Name: Eulogio Enciso RN Position: [facility] RN Member Role: Primary Care Nurse Name: Kamala Abdi RN Position: [facility] RN Member Role: Primary Care Nurse Name: Aquilino Sarah RN Position: [facility] SN RN Member Role: Primary Care Nurse Name: Concepcion Mondragon RN Position: [facility] RN Member Role: Primary Care Nurse Name: Marcia Kuhn RN Position: [facility] RN Member Role: Primary Care Nurse Name: Adrián Wilcox RN Position: [facility] RN Member Role: Primary Care Nurse Name: Ada Aleman RN Position: [facility] ED RN W/OE and Tasks Member Role: Primary Care Nurse Name: Sharlene Macias Position: [facility] Outreach Member Role: Lifetime Consulting Physician Name: Tyesha Rogers MD Position: [facility] Outreach Member Role: PCP Address: Address: [address] [place] [id number]- Name: La Miranda RN Position: [facility] Ui Application Developer Member Role: Primary Care Nurse Name: Sunita Anthony RN Position: [facility] RN Member Role: Primary Care Nurse Name: Glendy Gandara RN Position: [facility] SN RN Member Role: Primary Care Nurse Name: Melanie Martinez RN Position: [facility] Onco RN Member Role: Primary Care Nurse Name: Rima Soliz RN Position: [facility] Ui Application Developer Member Role: Primary Care Nurse Name: Benjamin Cheatham MD Position: [facility] Physician - Behavioral Health Member Role: Lifetime Consulting Physician Address: Address: [address] [place] [address]- [place] Care Team Related Persons Name: JOSE ROBLEDO Address: home [address] [place] [address] Name: YOHANA FOLEY Address: [place] [address]
--- OUTSIDE RECORDS SUMMARY | 2023-05-11 18:01 | XMS_ITS | Continuity of Care Document ---
Author Name Unknown Organization [facility] Address [address] [place] [address], [address] Floor, [address] [place] [address]- Care Team Providers Care Residence Supervisor Name Role Phone Ken VILLELA, Tyesha Primary Care Physician [phone] [facility]counter [facility] Date[facility]s): 08/12/20 - 09/11/20 [facility] [address] [facility], 3rd Floor, [address] [place] [address]- Allergies, Adverse Reactions, Alerts Substance Reaction Severity [...] 10/02/19 12:34:00 EST, Route to Pharmacy Electronically, [facility], [place] -, 159, cm, 10/01/19 13:59:00 EST, Height,... [...] 10/02/20 12:34:00 EST, 10/02/19 12:33:00 EST, Capsule, [facility],... Start Date: 10/02/19 Stop Date: 10/02/20 [...] Refills, Maintenance, 03/02/20 16:12:00 EDT, Tablet, [facility] [place], [place] -, 159, cm, 02/28/20 14:16:00 EDT, [...] 4-Mild concentric LVH. ECHO 02-08-12 5MRI 08-20-15 ([facility]-scanned): disc desiccatios, disc bulges and [...] 01/14, wrist cutting 9-See MRI done at [facility] 12-09-2015 10-T4-T8 disc bulging with mild left neural foraminal narrowing. MRI 01-29-16 (scanned-done at [facility]) 11-by ex partner, (father of children) Social History Social History Type Response Smoking Status Cigars or pipes megan y within last 30 days entered on: 07/29/19 Sex Female
--- OUTSIDE RECORDS SUMMARY | 2023-05-11 18:01 | XMS_ITS | Continuity of Care Document ---
Author Name Unknown Organization [facility] Address Unknown Care Team Providers Care Body Technician/Painter Name Role Phone Ken VILLELA, Tyesha Primary Care Physician Encounter [facility] Date(s): 12/08/21 - 01/07/22 [facility] Allergies, Adverse Reactions, Alerts [...] 4-Mild concentric LVH. ECHO 02-08-12 5MRI 08-20-15 ([facility]-scanned): disc desiccatios, disc bulges and [...] 01/14, wrist cutting 9-See MRI done at [facility] 12-09-2015 10-T4-T8 disc bulging with mild left neural foraminal narrowing. MRI 01-29-16 (scanned-done at [facility]) 11-by ex partner, (father of children) Social History Social History Type Response Smoking Status Cigars or pipes megan y within last 30 days entered on: 07/29/19 Sex Female
--- OUTSIDE RECORDS SUMMARY | 2023-05-11 18:01 | XMS_ITS | Continuity of Care Document ---
Author Name Unknown Organization [facility] Address [address] [place] [address], [address] Floor, [address] [place] [id number]- Care Team Providers Care Biazzi Nitrator Operator Name Role Phone Ken VILLELA, Tyesha Primary Care Physician [facility] Date(s): 11/05/20 - 12/05/20 [facility] [address] [facility], 3rd Floor, [address] [place] [address]- Allergies, Adverse Reactions, Alerts Substance Reaction Severity [...] 10/02/19 12:34:00 EST, Route to Pharmacy Electronically, [facility] [place], [place] -, 159, cm, 10/01/19 13:59:00 EST, [...] 10:48:25 EST Start Date: 07/29/19 Status: Ordered [place] Thyroid 60 mg oral tablet 60 mg, [...] 1 Refills, Maintenance, 03/02/20 16:12:00 EDT, Tablet, [facility] [place], [place] -, 159, cm, 02/28/20 14:16:00 EDT, [...] 4-Mild concentric LVH. ECHO 02-08-12 5MRI 08-20-15 ([facility]-scanned): disc desiccatios, disc [...] 01/14, wrist cutting 9-See MRI done at [facility] 12-09-2015 10-T4-T8 disc bulging with mild left neural foraminal narrowing. MRI 01-29-16 (scanned-done at [facility]) 11-by ex partner, (father of children) Social History Social History Type Response Smoking Status Cigars or pipes megan y within last 30 days entered on: 07/29/19 Sex Female
--- OUTSIDE RECORDS SUMMARY | 2023-05-11 18:01 | XMS_ITS | Continuity of Care Document ---
Author Name Unknown Organization [facility] Address [address] [facility], 3r d Floor, [address] [place] [address]- Encounter [facility] Date(s): 10/08/19 - 10/15/19 [facility] [address] [facility], 3rd Floor, [address] [place] [address]- [facility] Attending Physician: Julio Easton NP Allergies, Adverse Reactions, [...] 10/02/19 12:34:00 EST, Route to Pharmacy Electronically, [place], [place] -, 159, cm, 10/01/19 13:59:00 EST, Height,... Start Date: 10/02/19 Status: Ordered albuterol CFC free 90 mcg/inh inhalation aerosol 2, puffs, Inhalation, 4 times a day, PRN, # 1 each, Refills 0, Tot. Refills 0, Soft Stop, 11/07/18 16:06:09 EST, Aerosol, Print Requisition, Compound Start Date: 11/07/18 Status: Ordered amLODIPine 5 mg oral tablet 5 mg, 1, tablet, By Mouth, Daily, # 30 tablet, Refills 0, Maintenance, 07/29/19 10:50:53 EST Start Date: 07/29/19 Status: Ordered apixaban 5 mg oral tablet [...] 10/02/20 12:34:00 EST, 10/02/19 12:33:00 EST, Capsule, [facility],... Start Date: 10/02/19 Stop Date: [...] 10:48:03 EST Start Date: 07/29/19 Status: Ordered predniSONE 10 mg oral tablet See Instructions, 5 tablet ( 50mg ) at -13 hrs , 7hrs and 1 hr before imaging procedure .with food,# 15 tablet, 0 Refills, Acute 11/02/19 12:35:00 EST, 10/02/19 12:35:00 EST, Tablet, [facility] [place], [place] -, 5 tablet ( 50mg... Start Date: 10/02/19 Stop Date: 11/02/19 Status: Ordered Probiotic Formula 1 capsule, By [...] concentric LVH. ECHO 02-08-12 5MRI 08-20-15 ([facility]-scanned): disc desiccatios, disc bulges and mild [...] wrist cutting 9-See MRI done at [facility] 12-09-2015 10-T4-T8 disc bulging with mild left neural foraminal narrowing. MRI 01-29-16 (scanned-done at [facility]) 11-by ex partner, (father of children) Social History Social History Type Response Smoking Status Cigars or pipes megan y within last 30 days entered on: 07/29/19 Sex Female
--- OUTSIDE RECORDS SUMMARY | 2023-05-11 18:01 | XMS_ITS | Continuity of Care Document ---
Author Name Unknown Organization [facility] Address [address] [place] [address], [address]r d Floor, [address] [place] [phone]- Care Team Providers Care Alterations Supervisor Name Role Phone Ken VILLELA, Tyesha Primary Care Physician [facility] Date(s): 03/23/21 - 04/22/21 [facility] [address] [facility], 3rd Floor, [address] [place] [address]- Allergies, Adverse Reactions, Alerts Substance Reaction Severity [...] 10/02/19 12:34:00 EST, Route to Pharmacy Electronically, [facility] [place], [place] -, 159, cm, 10/01/19 13:59:00 EST, [...] 10:48:25 EST Start Date: 07/29/19 Status: Ordered [place] Thyroid 60 mg oral tablet 60 mg, [...] 1 Refills, Maintenance, 03/02/20 16:12:00 EDT, Tablet, [facility] [place], [place] -, 159, cm, 02/28/20 14:16:00 EDT, [...] 4-Mild concentric LVH. ECHO 02-08-12 5MRI 08-20-15 ([facility]-scanned): disc desiccatios, disc bulges and mild [...] 01/14, wrist cutting 9-See MRI done at [facility] 12-09-2015 10-T4-T8 disc bulging with mild left neural foraminal narrowing. MRI 01-29-16 (scanned-done at [facility]) 11-by ex partner, (father of children) Social History Social History Type Response Smoking Status Cigars or pipes megan y within last 30 days entered on: 07/29/19 Sex Female
--- OUTSIDE RECORDS SUMMARY | 2023-05-11 18:01 | XMS_ITS | Continuity of Care Document ---
Author Name Unknown Organization [facility] Address Unknown Care Team Providers Care Filling Mixer Name Role Phone Ken VILLELA, Tyesha Primary Care Physician [phone] Encounter [facility] Date(s): 06/16/21 - 07/16/21 [facility] Allergies, Adverse Reactions, Alerts Substance Reaction [...] 10:48:25 EST Start Date: 07/29/19 Status: Ordered [place] Thyroid 60 mg oral tablet 60 mg, [...] concentric LVH. ECHO 02-08-12 5MRI 08-20-15 ([facility]): disc desiccatios, disc bulges and mild face [...] wrist cutting 9-See MRI done at [facility] 12-09-2015 10-T4-T8 disc bulging with mild left neural foraminal narrowing. MRI 01-29-16 (scanned-done at [facility]) 11-by ex partner, (father of children) Social History Social History Type Response Smoking Status Cigars or pipes megan y within last 30 days entered on: 07/29/19 Sex Female
--- OUTSIDE RECORDS SUMMARY | 2023-05-11 18:01 | XMS_ITS | Continuity of Care Document ---
Author Name Unknown Organization [facility] Address [address] [place] [address], 3r d Floor, [address] [place] [address]- Care Team Providers Care Registered Nurse Bone Marrow Transplant Name Role Phone Ken VILLELA, Tyesha Primary Care Physician [facility] Date(s): 10/12/20 - 11/11/20 [facility] [address] [facility], 3rd Floor, [address] [place] [address]- Allergies, Adverse Reactions, Alerts Substance Reaction Severity [...] 10/02/19 12:34:00 EST, Route to Pharmacy Electronically, [facility] [place], [place] -, 159, cm, 10/01/19 13:59:00 EST, [...] 1 Refills, Maintenance, 03/02/20 16:12:00 EDT, Tablet, [facility] [place], [place] -, 159, cm, 02/28/20 14:16:00 EDT, [...] 4-Mild concentric LVH. ECHO 02-08-12 5MRI 08-20-15 ([facility]-scanned): disc desiccatios, disc bulges and mild face [...] 01/14, wrist cutting 9-See MRI done at [facility] 12-09-2015 10-T4-T8 disc bulging with mild left neural foraminal narrowing. MRI 01-29-16 (scanned-done at [facility]) 11-by ex partner, (father of children) Social History Social History Type Response Smoking Status Cigars or pipes megan y within last 30 days entered on: 07/29/19 Sex Female
--- OUTSIDE RECORDS SUMMARY | 2023-05-11 18:01 | XMS_ITS | Continuity of Care Document ---
Author Name Unknown Organization [facility] ter Address [address] [place] [address]- Care Team Providers Care Senior Security Architect Name Role Phone Ken VILLELA, Tyesha Primary Care Physician [phone] Encounter [place] Date(s): 12/30/20 - 01/31/[address] [address] Attending Physician: Nola Cobb MD Admitting [...] Pharmacy Electronically, [facility] [place], [place] -, 159, cm, 10/01/19 13:59:00 EST, [...] 10:48:25 EST Start Date: 07/29/19 Status: Ordered [place] Thyroid 60 mg oral tablet 60 mg, [...] 1 Refills, Maintenance, 03/02/20 16:12:00 EDT, Tablet, [facility] [place], [place] -, 159, cm, 02/28/20 14:16:00 EDT, [...] 4-Mild concentric LVH. ECHO 02-08-12 5MRI 08-20-15 ([facility]-scanned): disc desiccatios, disc bulges and [...] 01/14, wrist cutting 9-See MRI done at [facility] 12-09-2015 10-T4-T8 disc bulging with mild left neural foraminal narrowing. MRI 01-29-16 (scanned-done at [facility]) 11-by ex partner, (father of children) Social History Social History Type Response Smoking Status Cigars or pipes megan y within last 30 days entered on: 07/29/19 Sex Female
[2023-05-11 18:29] VITALS: BP 122/90; PULSE 92; RESP 18; TEMP 36.7; O2SAT 95
[2023-05-11 18:43] LABS: Glucose, Whole Blood 339 mg/dL (60-115)
[2023-05-11] MEDS: Acetaminophen 325 MG TABLET 650 MG PO (19:58)
[2023-05-11 21:43] LABS: Glucose, Whole Blood 420 mg/dL (60-115)
[2023-05-11] MEDS: Atorvastatin Calcium 40 MG TABLET PO (22:09)
[2023-05-11] MEDS: Insulin Lispro 100 UNIT/ML 3 ML VIAL SUBCUT (22:09)
[2023-05-11] MEDS: Doxepin HCl 25 MG CAPSULE PO (22:09)
[2023-05-11] MEDS: Topiramate 100 MG TABLET PO (22:09)
[2023-05-11] MEDS: Sennosides 8.6 MG TABLET 17.2 MG PO (22:09)
--- NOTE | 2023-05-11 22:20 | PHA.MEDREC ---
Pharmacy Consult ? Medication Reconciliation Pharmacy has completed the medication reconciliation. PT HAD LIST FROM [facility]
[2023-05-11] MEDS: Apixaban 5 MG TABLET PO (22:23)
[2023-05-11] MEDS: Lidocaine 4 % Patch ADH..PATCH 1 PATCH TRANSDERMA (22:50)
[2023-05-12 00:07] VITALS: BMI 33.6
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
[2023-05-12 06:00] VITALS: BP 136/78; PULSE 87; RESP 16
[2023-05-12] MEDS: Levothyroxine Sodium 25 MCG TABLET PO (06:55)
[2023-05-12 08:39] LABS: Glucose, Whole Blood 325 mg/dL (60-115)
[2023-05-12] MEDS: Insulin Glargine,Hum.rec.anlog 100 UNIT/ML 10 ML VIAL 25 UNIT SUBCUT (08:52)
[2023-05-12] MEDS: Insulin Lispro 100 UNIT/ML 3 ML VIAL SUBCUT ×3 (08:53→17:25)
[2023-05-12] MEDS: Buprenorphine/Naloxone 8/2 mg FILM 1 FILM SUBLINGUAL (08:54)
[2023-05-12] MEDS: Topiramate 25 MG TABLET PO (08:54)
[2023-05-12] MEDS: Apixaban 5 MG TABLET PO ×2 (08:54→20:33)
[2023-05-12] MEDS: Losartan Potassium 50 MG TABLET 100 MG PO (08:54)
[2023-05-12] MEDS: Cholecalciferol (Vitamin D3) 25 MCG TABLET PO (08:54)
[2023-05-12] MEDS: Magnesium Oxide 400 MG TABLET PO ×2 (08:54→17:25)
[2023-05-12] MEDS: Fluticasone Propionate 100 MCG BLST.W.DEV 1 PUFF INHALE (09:06)
[2023-05-12 09:19] LABS: Estimated Average Glucose 321 mg/dL; Hemoglobin A1c % 12.8 % (<6.0)
--- NOTE | 2023-05-12 09:25 | PC.NURSE ---
Patient declines nicotine replacement at this time.
[2023-05-12 10:33] LABS: Cholesterol 188 mg/dL (<200); HDL Cholesterol 50 mg/dL (>40); LDL Cholesterol Calculated 103 mg/dL (<100); Magnesium 1.7 mg/dL (1.6-2.6); Triglycerides 178 mg/dL (<150)
[2023-05-12 10:43] LABS: Free T4 (Free Thyroxine) 0.84 ng/dL (0.71-1.85); Thyroid Stimulating Hormone 5.81 uIU/mL (0.32-4.0)
[2023-05-12 10:58] LABS: Folate 15.4 ng/mL (> or = 4.0); Vitamin B12 724 pg/mL (200-900)
[2023-05-12] MEDS: Cyclobenzaprine HCl 10 MG TABLET PO ×2 (12:08→21:15)
[2023-05-12] MEDS: Lidocaine 4 % Patch ADH..PATCH 1 PATCH TRANSDERMA (12:08)
[2023-05-12 12:24] LABS: Glucose, Whole Blood 253 mg/dL (60-115)
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
[2023-05-12] MEDS: LORazepam 1 MG TABLET PO ×2 (13:17→20:34)
[2023-05-12] MEDS: Fluconazole 150 MG TABLET PO (13:54)
[2023-05-12 15:14] LABS: Alanine Aminotransferase 54 U/L (0-31); Albumin Level 3.9 g/dL (3.5-5.0); Alkaline Phosphatase 168 U/L (39-117); Aspartate Amino Transferase 32 U/L (5-31); Bilirubin Direct 0.1 mg/dL (0.0-0.5); Bilirubin Total 0.3 mg/dL (0.0-1.0); Total Protein 7.5 g/dL (6.5-8.0)
[2023-05-12 16:31] LABS: Glucose, Whole Blood 158 mg/dL (60-115)
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
[2023-05-12] MEDS: metFORMIN HCl 1,000 MG TABLET 1000 MG PO (17:25)
[2023-05-12 20:20] VITALS: BP 152/93; PULSE 100; RESP 18; TEMP 36.9; O2SAT 97
[2023-05-12] MEDS: Prazosin HCL 1 MG CAPSULE 2 MG PO (20:33)
[2023-05-12] MEDS: Sennosides 8.6 MG TABLET 17.2 MG PO (20:33)
[2023-05-12] MEDS: Docusate Sodium 100 MG CAPSULE PO (20:34)
[2023-05-12] MEDS: Doxepin HCl 25 MG CAPSULE PO (20:34)
[2023-05-12] MEDS: Atorvastatin Calcium 40 MG TABLET PO (20:34)
[2023-05-12] MEDS: Topiramate 100 MG TABLET PO (20:34)
[2023-05-12] MEDS: Bacitracin Oint 14 GM TUBE 1 APPL TOPICAL (20:38)
[2023-05-12 21:49] LABS: Glucose, Whole Blood 304 mg/dL (60-115)
--- NOTE | 2023-05-13 02:08 | PC.NURSE ---
Pt reports right abdominal pain (RUQ), VSS, call center receptionist Provider Tucker notified. New Order: give PRN's available; If concerned you can call hospitalist. PRN tylenol given pending results.
[2023-05-13] MEDS: Levothyroxine Sodium 25 MCG TABLET PO (06:32)
[2023-05-13 07:45] LABS: Glucose, Whole Blood 262 mg/dL (60-115)
[2023-05-13] MEDS: Insulin Glargine,Hum.rec.anlog 100 UNIT/ML 10 ML VIAL 25 UNIT SUBCUT (08:25)
[2023-05-13] MEDS: Prazosin HCL 1 MG CAPSULE PO (08:26)
[2023-05-13 08:30] VITALS: BP 143/84; PULSE 93; RESP 18; TEMP 36.5; O2SAT 96
[2023-05-13] MEDS: Magnesium Oxide 400 MG TABLET PO ×2 (08:30→17:33)
[2023-05-13] MEDS: Cholecalciferol (Vitamin D3) 25 MCG TABLET PO (08:30)
[2023-05-13] MEDS: metFORMIN HCl 1,000 MG TABLET 1000 MG PO ×2 (08:31→17:33)
[2023-05-13] MEDS: ARIPiprazole 5 MG TABLET PO (08:31)
[2023-05-13] MEDS: Apixaban 5 MG TABLET PO ×2 (08:31→21:04)
[2023-05-13] MEDS: Topiramate 25 MG TABLET PO (08:31)
[2023-05-13] MEDS: Losartan Potassium 50 MG TABLET 100 MG PO (08:32)
[2023-05-13] MEDS: Buprenorphine/Naloxone 8/2 mg FILM 1 FILM SUBLINGUAL (08:36)
[2023-05-13] MEDS: Cyclobenzaprine HCl 10 MG TABLET PO ×2 (08:50→15:56)
[2023-05-13] MEDS: LORazepam 1 MG TABLET PO ×2 (08:50→15:56)
--- NOTE | 2023-05-13 08:57 | P.PNPSI_ITS ---
Subjective Subjective Date of Service: 05/13/23 Reason For Visit: Bipolar, PTSD Interim History: met with patient; discussed with team; reviewed progress notes/chart Overnight patient complained of severe abdominal pain however resolved on its own; today patient said that she is overall fine for right now and does not need anything. Auto Polisher discussed results of abdominal CT which was benign other than some mild to moderate constipation. She says she is always constipated (though reports she had a bowel movement yesterday) and does not think that is what her abdominal pain was however overall feeling better. Patient says that SI is all gone. Mental Status Exam Mental Status Exam Narrative: Pt is alert and oriented; behavior is cooperative and calm, intermittently irritable; patient is not in distress; dressed in casual attire with unkempt hair but adequate hygiene; mood is described as fine for now and affect congruent; eye contact appropriate; Speech is normal rate, volume and prosody and not pressured; no psychomotor agitation/retardation present; thought process is organized and goal directed; Thought content is on tx; otherwise pertinent to relevant topics and without any delusional content, paranoid ideations or grandiosity; denies any SI/HI. There is no evidence of perceptual disturbance. Patients insight and judgment appear intact. Diagnostics Vital Signs (24Hr): Vital Signs - 24 hr 05/12/23 20:20 Temperature 98.4 F Pulse Rate 100 Respiratory Rate 18 Blood Pressure 152/93 H Pulse Oximetry 97 Oxygen Delivery Method Room Air BMI result Body Mass Index 33.6 Labs Labs: Laboratory Results - last 48 hr 05/11/23 05/11/23 05/12/23 18:39 21:14 08:10 POC Glucose 339 H 420 H* Estimat Average Glucose 321 Hemoglobin A1c % 12.8 H Magnesium Total Bilirubin Direct Bilirubin AST ALT Alkaline Phosphatase Total Protein Albumin Triglycerides Cholesterol LDL Cholesterol, Calc HDL Cholesterol Vitamin B12 Folate TSH Free T4 05/12/23 05/12/23 05/12/23 08:10 08:10 08:14 POC Glucose 325 H Estimat Average Glucose Hemoglobin A1c % Magnesium 1.7 Total Bilirubin Direct Bilirubin AST ALT Alkaline Phosphatase Total Protein Albumin Triglycerides 178 H Cholesterol 188 LDL Cholesterol, Calc 103 H HDL Cholesterol 50 Vitamin B12 724 Folate 15.4 TSH 5.81 H Free T4 0.84 05/12/23 05/12/23 05/12/23 12:20 14:46 16:28 POC Glucose 253 H 158 H Estimat Average Glucose Hemoglobin A1c % Magnesium Total Bilirubin 0.3 Direct Bilirubin 0.1 AST 32 H ALT 54 H Alkaline Phosphatase 168 H Total Protein 7.5 Albumin 3.9 Triglycerides Cholesterol LDL Cholesterol, Calc HDL Cholesterol Vitamin B12 Folate TSH Free T4 05/12/23 05/13/23 21:41 07:42 POC Glucose 304 H 262 H Estimat Average Glucose Hemoglobin A1c % Magnesium Total Bilirubin Direct Bilirubin AST ALT Alkaline Phosphatase Total Protein Albumin Triglycerides Cholesterol LDL Cholesterol, Calc HDL Cholesterol Vitamin B12 Folate TSH Free T4 Imaging Radiology Impressions: ITS Impressions Abdomen CT 05/12/23 15:28 IMPRESSION: No acute findings. Stable 1 cm left renal angiomyolipoma. Moderate stool burden questionable for constipation Fleischner guidelines were followed. Medications Medications Current Medications Acetaminophen (Acetaminophen 325 Mg Tablet) 650 mg PO Q6H PRN PRN Reason: Headache/Pain Mild Scale (1-3) Last Admin: 05/11/23 19:58 Dose: 650 mg Al Hydroxide/Mg Hydroxide (Magnesium Hydrox/Alum Hydrox 30 Ml Oral.Susp) 30 ml PO Q6H PRN PRN Reason: Heartburn/Nausea Albuterol Sulfate (Albuterol Sulfate 90 Mcg 8 Gm Inhaler) 1 puff INHALE RQ4H PRN PRN Reason: Wheezing Apixaban (Apixaban 5 Mg Tablet) 5 mg PO BID [facility] Last Admin: 05/13/23 08:31 Dose: 5 mg Aripiprazole (Aripiprazole 5 Mg Tablet) 5 mg PO DAILY [facility] Last Admin: 05/13/23 08:31 Dose: 5 mg Atorvastatin Calcium (Atorvastatin Calcium 40 Mg Tablet) 40 mg PO BEDTIME [facility] Last Admin: 05/12/23 20:34 Dose: 40 mg Bacitracin (Bacitracin Oint 14 Gm Tube) 1 appl TOPICAL BID [facility]; Protocol Last Admin: 05/12/23 20:38 Dose: 1 appl Bisacodyl (Bisacodyl 5 Mg Tablet.Dr) 5 mg PO DAILY PRN PRN Reason: Constipation Buprenorphine/Naloxone (Buprenorphine/Naloxone 8/2 Mg Film) 1 film SUBLINGUAL DAILY [facility] Last Admin: 05/13/23 08:36 Dose: 1 film Cyclobenzaprine HCl (Cyclobenzaprine Hcl 10 Mg Tablet) 10 mg PO TID PRN PRN Reason: Muscle Spasm Last Admin: 05/13/23 08:50 Dose: 10 mg Dextrose (Dextrose 50 % 25 Gm/50 Ml Syringe) 25 gm IVPUSH Q15M PRN; Protocol PRN Reason: per Hypoglycemia Standing Ord. Docusate Sodium (Docusate Sodium 100 Mg Capsule) 100 mg PO BEDTIME [facility] Last Admin: 05/12/23 20:34 Dose: 100 mg Doxepin HCl (Doxepin Hcl 25 Mg Capsule) 25 mg PO BEDTIME [facility] Last Admin: 05/12/23 20:34 Dose: 25 mg Glucose (Glucose Gel 15 Gm Gel..Gram.) 15 gm PO Q15M PRN; Protocol PRN Reason: per Hypoglycemia Standing Ord. Insulin Glargine (Insulin Glargine,Hum.Rec.Anlog 100 Unit/Ml 10 Ml Vial) 25 unit SUBCUT DAILY [facility] Last Admin: 05/13/23 08:25 Dose: 25 unit Levothyroxine Sodium (Levothyroxine Sodium 25 Mcg Tablet) 25 mcg PO DAILY@0600 [facility] Last Admin: 05/13/23 06:32 Dose: 25 mcg Lidocaine (Lidocaine 4 % Patch Adh..Patch) 2 patch TRANSDERMA DAILY [facility]; Protocol Lorazepam (Lorazepam 1 Mg Tablet) 1 mg PO Q4H PRN PRN Reason: agitation Last Admin: 05/13/23 08:50 Dose: 1 mg Losartan Potassium (Losartan Potassium 50 Mg Tablet) 100 mg PO DAILY [facility]; Protocol Last Admin: 05/13/23 08:32 Dose: 100 mg Magnesium Hydroxide (Milk Of Magnesia 30 Ml Oral.Susp) 30 ml PO DAILY PRN PRN Reason: Constipation Magnesium Oxide (Magnesium Oxide 400 Mg Tablet) 400 mg PO BIDPC [facility] Last Admin: 05/13/23 08:30 Dose: 400 mg Metformin HCl (Metformin Hcl 1,000 Mg Tablet) 1,000 mg PO BIDWM [facility] Last Admin: 05/13/23 08:31 Dose: 1,000 mg Polyethylene Glycol (Polyethylene Glycol 3350 17 Gm Powd.Pack) 17 gm PO DAILY PRN PRN Reason: constipation Prazosin HCl (Prazosin Hcl 1 Mg Capsule) 2 mg PO BEDTIME [facility]; Protocol Last Admin: 05/12/23 20:33 Dose: 2 mg Prazosin HCl (Prazosin Hcl 1 Mg Capsule) 1 mg PO DAILY [facility]; Protocol Last Admin: 05/13/23 08:26 Dose: 1 mg Senna (Sennosides 8.6 Mg Tablet) 17.2 mg PO BEDTIME [facility] Last Admin: 05/12/23 20:33 Dose: 17.2 mg Topiramate (Topiramate 100 Mg Tablet) 100 mg PO BEDTIME [facility] Last Admin: 05/12/23 20:34 Dose: 100 mg Topiramate (Topiramate 25 Mg Tablet) 25 mg PO DAILY [facility] Last Admin: 05/13/23 08:31 Dose: 25 mg Trazodone HCl (Trazodone Hcl 50 Mg Tablet) 50 mg PO BEDTIME MRX1 PRN PRN Reason: Insomnia Vitamin D (Cholecalciferol (Vitamin D3) 25 Mcg Tablet) 25 mcg PO DAILY [facility] Last Admin: 05/13/23 08:30 Dose: 25 mcg Allergies Allergies Allergy/AdvReac Type Severity Reaction Status Date / Time Iodinated Contrast Media Allergy Severe THROAT Verified 08/03/21 14:34 [IV CONTRAST] CLOSING lithium [LITHIUM] Allergy Intermediate AGGRESSION, Verified 08/03/21 14:34 stiffened up & throat closing (moderate to severe) fluoxetine [FLUOXETINE] Allergy Mild ITCHING, Verified 08/03/21 14:34 Suicidal risperidone [From RISPERDAL] Allergy Mild ITCHING Verified 08/03/21 14:34 asparagus [ASPARAGUS] Allergy Unknown unknown Verified 08/03/21 14:34 divalproex sodium Allergy Unknown UNKNOWN, Verified 08/03/21 14:34 [From DEPAKOTE] stiffened up, locked jaw lisinopril [LISINOPRIL] Allergy Unknown COUGH Verified 08/03/21 14:34 olanzapine Allergy Unknown can't Verified 08/03/21 14:34 recall if hives or increased pollen extracts [POLLEN] Allergy Unknown unknown Verified 08/03/21 14:34 tomato [TOMATO] Allergy Unknown UNKNOWN Verified 08/03/21 14:34 quetiapine [From SEROQUEL] AdvReac Intermediate OVERSEDATIO Verified 08/03/21 14:34 N BROCCOLI Allergy Unknown Unknown Uncoded 08/03/21 14:34 FUMARATE Allergy Unknown Unknown Uncoded 08/03/21 14:34 GREEN CHEUNG Allergy Unknown Unknown Uncoded 08/03/21 14:34 TOMATO Allergy Unknown Unknown Uncoded 08/03/21 14:34 Assessment & Plan Assessment & Plan (1) Post traumatic stress disorder (PTSD): Status: Acute Code(s): F43.10 - Post-traumatic stress disorder, unspecified (2) MDD (major depressive disorder), recurrent severe, without psychosis: Status: Acute Code(s): F33.2 - Major depressive disorder, recurrent severe without psychotic features (3) Opioid use disorder: Status: Acute Code(s): F11.90 - Opioid use, unspecified, uncomplicated (4) Cocaine use disorder: Status: Acute Code(s): F14.10 - Cocaine abuse, uncomplicated (5) Excoriation (skin-picking) disorder: Status: Acute Code(s): F42.4 - Excoriation (skin-picking) disorder Plan 52 yo female, history of PTSD, Depression, Opiate, Cocaine use disorder. S/P suicide attempt via OD of #10 8 mg Suboxone, Doxepin 100 mg and Lantus 240mg. ICU transfer from [facility]. Hospital course: 05/13 patient reports that she is fine and SI is all gone. Intermittent complaints of abdominal pain however negative CT. Continue current treatment plan Plan: Re-establish regime Medical consult for abdominal pain-diagnostics are pending Full milieu Collateral contact Recovery support Aftercare/Discharge Planning. Patient educated on: diagnosis and medical condition Informed Consent: understands Reason for continued inpatient stay Substantial Risk for: med/psych decompensation Time Spent With Patient Time: Total time managing care of this patient today ____ minutes.
[2023-05-13] MEDS: Insulin Lispro 100 UNIT/ML 3 ML VIAL SUBCUT ×4 (09:42→21:03)
[2023-05-13] MEDS: Lidocaine 4 % Patch ADH..PATCH 2 PATCH TRANSDERMA (09:43)
[2023-05-13 11:36] LABS: Glucose, Whole Blood 240 mg/dL (60-115)
[2023-05-13 17:06] LABS: Glucose, Whole Blood 233 mg/dL (60-115)
[2023-05-13 20:55] LABS: Glucose, Whole Blood 285 mg/dL (60-115)
[2023-05-13 21:00] VITALS: BP 115/58; PULSE 86; TEMP 36.1
[2023-05-13] MEDS: Topiramate 100 MG TABLET PO (21:04)
[2023-05-13] MEDS: Docusate Sodium 100 MG CAPSULE PO (21:04)
[2023-05-13] MEDS: Doxepin HCl 25 MG CAPSULE PO (21:04)
[2023-05-13] MEDS: Prazosin HCL 1 MG CAPSULE 2 MG PO (21:06)
[2023-05-13] MEDS: Sennosides 8.6 MG TABLET 17.2 MG PO (21:07)
[2023-05-14 06:00] VITALS: BP 116/68; PULSE 82; RESP 18; TEMP 36.7; O2SAT 95
[2023-05-14] MEDS: Levothyroxine Sodium 25 MCG TABLET PO (06:30)
[2023-05-14] MEDS: Apixaban 5 MG TABLET PO ×2 (08:57→20:20)
[2023-05-14] MEDS: Magnesium Oxide 400 MG TABLET PO ×2 (08:57→17:28)
[2023-05-14] MEDS: ARIPiprazole 5 MG TABLET PO (08:57)
[2023-05-14] MEDS: Cholecalciferol (Vitamin D3) 25 MCG TABLET PO (08:57)
[2023-05-14] MEDS: Topiramate 25 MG TABLET PO (08:57)
[2023-05-14] MEDS: metFORMIN HCl 1,000 MG TABLET 1000 MG PO ×2 (08:58→17:28)
[2023-05-14] MEDS: Losartan Potassium 50 MG TABLET 100 MG PO (08:58)
[2023-05-14] MEDS: Buprenorphine/Naloxone 8/2 mg FILM 1 FILM SUBLINGUAL (08:58)
[2023-05-14] MEDS: Prazosin HCL 1 MG CAPSULE PO (08:58)
[2023-05-14] MEDS: LORazepam 1 MG TABLET PO ×2 (09:09→20:20)
[2023-05-14] MEDS: Insulin Lispro 100 UNIT/ML 3 ML VIAL SUBCUT ×4 (09:09→20:20)
[2023-05-14] MEDS: Insulin Glargine,Hum.rec.anlog 100 UNIT/ML 10 ML VIAL 25 UNIT SUBCUT (09:10)
[2023-05-14] MEDS: Cyclobenzaprine HCl 10 MG TABLET PO ×2 (09:11→17:28)
[2023-05-14] MEDS: Lidocaine 4 % Patch ADH..PATCH 2 PATCH TRANSDERMA (09:13)
--- NOTE | 2023-05-14 09:42 | HO.PSYCHPN ---
Subjective Subjective Date of Service: 05/14/23 Reason For Visit: Bipolar, PTSD Interim History: Met with Patient; discussed with team Patient reports some lingering right-sided abdominal pain however says that her mood is much better and she remains without any SI. Denies any request or other complaints Mental Status Exam Mental Status Exam Narrative: Pt is alert and oriented; behavior is cooperative and calm, intermittently irritable; patient is not in distress; dressed in casual attire with unkempt hair but adequate hygiene; mood is described as better and affect congruent; eye contact appropriate; Speech is normal rate, volume and prosody and not pressured; no psychomotor agitation/retardation present; thought process is organized and goal directed; Thought content is on tx; otherwise pertinent to relevant topics and without any delusional content, paranoid ideations or grandiosity; denies any SI/HI. There is no evidence of perceptual disturbance. Patients insight and judgment appear intact. Diagnostics Vital Signs (24Hr): Vital Signs - 24 hr 05/13/23 21:00 Temperature 96.9 F Pulse Rate 86 Blood Pressure 115/58 L BMI result Body Mass Index 33.6 Labs 05/14/23 10:47 Labs: Laboratory Results - last 48 hr 05/12/23 05/12/23 05/12/23 08:10 08:10 12:20 POC Glucose 253 H Magnesium 1.7 Total Bilirubin Direct Bilirubin AST ALT Alkaline Phosphatase Total Protein Albumin Triglycerides 178 H Cholesterol 188 LDL Cholesterol, Calc 103 H HDL Cholesterol 50 Vitamin B12 724 Folate 15.4 TSH 5.81 H Free T4 0.84 05/12/23 05/12/23 05/12/23 14:46 16:28 21:41 POC Glucose 158 H 304 H Magnesium Total Bilirubin 0.3 Direct Bilirubin 0.1 AST 32 H ALT 54 H Alkaline Phosphatase 168 H Total Protein 7.5 Albumin 3.9 Triglycerides Cholesterol LDL Cholesterol, Calc HDL Cholesterol Vitamin B12 Folate TSH Free T4 05/13/23 05/13/23 05/13/23 07:42 11:32 17:00 POC Glucose 262 H 240 H 233 H Magnesium Total Bilirubin Direct Bilirubin AST ALT Alkaline Phosphatase Total Protein Albumin Triglycerides Cholesterol LDL Cholesterol, Calc HDL Cholesterol Vitamin B12 Folate TSH Free T4 05/13/23 20:47 POC Glucose 285 H Magnesium Total Bilirubin Direct Bilirubin AST ALT Alkaline Phosphatase Total Protein Albumin Triglycerides Cholesterol LDL Cholesterol, Calc HDL Cholesterol Vitamin B12 Folate TSH Free T4 Imaging Radiology Impressions: ITS Impressions Abdomen CT 05/12/23 15:28 IMPRESSION: No acute findings. Stable 1 cm left renal angiomyolipoma. Moderate stool burden questionable for constipation Fleischner guidelines were followed. Medications Medications Current Medications Acetaminophen (Acetaminophen 325 Mg Tablet) 650 mg PO Q6H PRN PRN Reason: Headache/Pain Mild Scale (1-3) Last Admin: 05/11/23 19:58 Dose: 650 mg Al Hydroxide/Mg Hydroxide (Magnesium Hydrox/Alum Hydrox 30 Ml Oral.Susp) 30 ml PO Q6H PRN PRN Reason: Heartburn/Nausea Albuterol Sulfate (Albuterol Sulfate 90 Mcg 8 Gm Inhaler) 1 puff INHALE RQ4H PRN PRN Reason: Wheezing Apixaban (Apixaban 5 Mg Tablet) 5 mg PO BID [facility] Last Admin: 05/14/23 08:57 Dose: 5 mg Aripiprazole (Aripiprazole 5 Mg Tablet) 5 mg PO DAILY [facility] Last Admin: 05/14/23 08:57 Dose: 5 mg Atorvastatin Calcium (Atorvastatin Calcium 40 Mg Tablet) 40 mg PO BEDTIME [facility] Last Admin: 05/13/23 21:05 Dose: Not Given Bacitracin (Bacitracin Oint 14 Gm Tube) 1 appl TOPICAL BID [facility]; Protocol Last Admin: 05/13/23 21:09 Dose: Not Given Bisacodyl (Bisacodyl 5 Mg Tablet.Dr) 5 mg PO DAILY PRN PRN Reason: Constipation Buprenorphine/Naloxone (Buprenorphine/Naloxone 8/2 Mg Film) 1 film SUBLINGUAL DAILY [facility] Last Admin: 05/14/23 08:58 Dose: 1 film Cyclobenzaprine HCl (Cyclobenzaprine Hcl 10 Mg Tablet) 10 mg PO TID PRN PRN Reason: Muscle Spasm Last Admin: 05/14/23 09:11 Dose: 10 mg Dextrose (Dextrose 50 % 25 Gm/50 Ml Syringe) 25 gm IVPUSH Q15M PRN; Protocol PRN Reason: per Hypoglycemia Standing Ord. Docusate Sodium (Docusate Sodium 100 Mg Capsule) 100 mg PO BEDTIME [facility] Last Admin: 05/13/23 21:04 Dose: 100 mg Doxepin HCl (Doxepin Hcl 25 Mg Capsule) 25 mg PO BEDTIME [facility] Last Admin: 05/13/23 21:04 Dose: 25 mg Glucose (Glucose Gel 15 Gm Gel..Gram.) 15 gm PO Q15M PRN; Protocol PRN Reason: per Hypoglycemia Standing Ord. Insulin Glargine (Insulin Glargine,Hum.Rec.Anlog 100 Unit/Ml 10 Ml Vial) 25 unit SUBCUT DAILY [facility] Last Admin: 05/14/23 09:10 Dose: 25 unit Insulin Human Lispro (Insulin Lispro 100 Unit/Ml 3 Ml Vial) 0 unit SUBCUT QIDACHS [facility]; Protocol Last Admin: 05/14/23 09:09 Dose: 8 unit Levothyroxine Sodium (Levothyroxine Sodium 25 Mcg Tablet) 25 mcg PO DAILY@0600 [facility] Last Admin: 05/14/23 06:30 Dose: 25 mcg Lidocaine (Lidocaine 4 % Patch Adh..Patch) 2 patch TRANSDERMA DAILY [facility]; Protocol Last Admin: 05/14/23 09:13 Dose: 2 patch Lorazepam (Lorazepam 1 Mg Tablet) 1 mg PO Q4H PRN PRN Reason: agitation Last Admin: 05/14/23 09:09 Dose: 1 mg Losartan Potassium (Losartan Potassium 50 Mg Tablet) 100 mg PO DAILY [facility]; Protocol Last Admin: 05/14/23 08:58 Dose: 100 mg Magnesium Hydroxide (Milk Of Magnesia 30 Ml Oral.Susp) 30 ml PO DAILY PRN PRN Reason: Constipation Magnesium Oxide (Magnesium Oxide 400 Mg Tablet) 400 mg PO BIDPC [facility] Last Admin: 05/14/23 08:57 Dose: 400 mg Metformin HCl (Metformin Hcl 1,000 Mg Tablet) 1,000 mg PO BIDWM [facility] Last Admin: 05/14/23 08:58 Dose: 1,000 mg Polyethylene Glycol (Polyethylene Glycol 3350 17 Gm Powd.Pack) 17 gm PO DAILY PRN PRN Reason: constipation Prazosin HCl (Prazosin Hcl 1 Mg Capsule) 2 mg PO BEDTIME [facility]; Protocol Last Admin: 05/13/23 21:06 Dose: 2 mg Prazosin HCl (Prazosin Hcl 1 Mg Capsule) 1 mg PO DAILY [facility]; Protocol Last Admin: 05/14/23 08:58 Dose: 1 mg Senna (Sennosides 8.6 Mg Tablet) 17.2 mg PO BEDTIME [facility] Last Admin: 05/13/23 21:07 Dose: 17.2 mg Topiramate (Topiramate 100 Mg Tablet) 100 mg PO BEDTIME [facility] Last Admin: 09/02/23 21:04 Dose: 100 mg Topiramate (Topiramate 25 Mg Tablet) 25 mg PO DAILY [facility] Last Admin: 05/14/23 08:57 Dose: 25 mg Trazodone HCl (Trazodone Hcl 50 Mg Tablet) 50 mg PO BEDTIME MRX1 PRN PRN Reason: Insomnia Vitamin D (Cholecalciferol (Vitamin D3) 25 Mcg Tablet) 25 mcg PO DAILY [facility] Last Admin: 05/14/23 08:57 Dose: 25 mcg Allergies Allergies Allergy/AdvReac Type Severity Reaction Status Date / Time Iodinated Contrast Media Allergy Severe THROAT Verified 08/03/21 14:34 [IV CONTRAST] CLOSING lithium [LITHIUM] Allergy Intermediate AGGRESSION, Verified 08/03/21 14:34 stiffened up & throat closing (moderate to severe) fluoxetine [FLUOXETINE] Allergy Mild ITCHING, Verified 08/03/21 14:34 Suicidal risperidone [From RISPERDAL] Allergy Mild ITCHING Verified 08/03/21 14:34 asparagus [ASPARAGUS] Allergy Unknown unknown Verified 08/03/21 14:34 divalproex sodium Allergy Unknown UNKNOWN, Verified 08/03/21 14:34 [From DEPAKOTE] stiffened up, locked jaw lisinopril [LISINOPRIL] Allergy Unknown COUGH Verified 08/03/21 14:34 olanzapine Allergy Unknown can't Verified 08/03/21 14:34 recall if hives or increased pollen extracts [POLLEN] Allergy Unknown unknown Verified 08/03/21 14:34 tomato [TOMATO] Allergy Unknown UNKNOWN Verified 08/03/21 14:34 quetiapine [From SEROQUEL] AdvReac Intermediate OVERSEDATIO Verified 08/03/21 14:34 N BROCCOLI Allergy Unknown Unknown Uncoded 08/03/21 14:34 FUMARATE Allergy Unknown Unknown Uncoded 08/03/21 14:34 GREEN CHEUNG Allergy Unknown Unknown Uncoded 08/03/21 14:34 TOMATO Allergy Unknown Unknown Uncoded 08/03/21 14:34 Assessment & Plan Assessment & Plan (1) Post traumatic stress disorder (PTSD): Status: Acute Code(s): F43.10 - Post-traumatic stress disorder, unspecified (2) MDD (major depressive disorder), recurrent severe, without psychosis: Status: Acute Code(s): F33.2 - Major depressive disorder, recurrent severe without psychotic features (3) Opioid use disorder: Status: Acute Code(s): F11.90 - Opioid use, unspecified, uncomplicated (4) Cocaine use disorder: Status: Acute Code(s): F14.10 - Cocaine abuse, uncomplicated (5) Excoriation (skin-picking) disorder: Status: Acute Code(s): F42.4 - Excoriation (skin-picking) disorder Plan 52 yo female, history of PTSD, Depression, Opiate, Cocaine use disorder. S/P suicide attempt via OD of #10 8 mg Suboxone, Doxepin 100 mg and Lantus 240mg. ICU transfer from [facility]. Hospital course: 05/13 patient reports that she is fine and SI is all gone. Intermittent complaints of abdominal pain however negative CT. Continue current treatment plan 05/14 patient says her mood is definitely better; SI fully resolved. Still intermittently complaining about right-sided abdominal pain, though CT scan negative, hospitalist has addressed Plan: Re-establish regime Medical consult for abdominal pain-diagnostics are pending Full milieu Collateral contact Recovery support Aftercare/Discharge Planning. Patient educated on: diagnosis Informed Consent: understands Reason for continued inpatient stay Substantial Risk for: stable for discharge Time Spent With Patient Time: Total time managing care of this patient today ____ minutes.
[2023-05-14 10:05] LABS: Glucose, Whole Blood 306 mg/dL (60-115)
[2023-05-14 11:16] LABS: Estimated Glomerular Filt Rate 59
[2023-05-14 12:06] LABS: Glucose, Whole Blood 245 mg/dL (60-115)
[2023-05-14 17:14] LABS: Glucose, Whole Blood 187 mg/dL (60-115)
[2023-05-14 18:00] VITALS: BP 144/75; PULSE 89; RESP 18; TEMP 36.2; O2SAT 97
[2023-05-14] MEDS: Docusate Sodium 100 MG CAPSULE PO (20:20)
[2023-05-14] MEDS: Prazosin HCL 1 MG CAPSULE 2 MG PO (20:20)
[2023-05-14] MEDS: Sennosides 8.6 MG TABLET 17.2 MG PO (20:20)
[2023-05-14] MEDS: Acetaminophen 325 MG TABLET 650 MG PO (20:21)
[2023-05-14] MEDS: Doxepin HCl 25 MG CAPSULE PO (20:21)
[2023-05-14] MEDS: Atorvastatin Calcium 40 MG TABLET PO (20:21)
[2023-05-14] MEDS: Bacitracin Oint 14 GM TUBE 1 APPL TOPICAL (20:34)
[2023-05-14] MEDS: Topiramate 100 MG TABLET PO (20:36)
[2023-05-14 20:41] LABS: Glucose, Whole Blood 307 mg/dL (60-115)
[2023-05-15] MEDS: Loperamide HCl 2 MG CAPSULE 4 MG PO (02:12)
--- NOTE | 2023-05-15 02:18 | PC.NURSE ---
PT C/O spot of blood on toilet tissue when having a BM on toilet, PT said it happened yesterday as well. After that PT had 8 loose stools, immodium 4 mg given. MD Ceballos said the immodium 4 mg dose may be repeated x1 if needed. PT currently resting in bed.
[2023-05-15] MEDS: Levothyroxine Sodium 25 MCG TABLET PO (05:54)
[2023-05-15] MEDS: Losartan Potassium 50 MG TABLET 100 MG PO (08:04)
[2023-05-15] MEDS: Prazosin HCL 1 MG CAPSULE PO (08:04)
[2023-05-15] MEDS: Buprenorphine/Naloxone 8/2 mg FILM 1 FILM SUBLINGUAL (08:04)
[2023-05-15] MEDS: Cholecalciferol (Vitamin D3) 25 MCG TABLET PO (08:05)
[2023-05-15] MEDS: Topiramate 25 MG TABLET PO (08:05)
[2023-05-15] MEDS: ARIPiprazole 5 MG TABLET PO (08:05)
[2023-05-15] MEDS: Apixaban 5 MG TABLET PO ×2 (08:05→20:13)
[2023-05-15] MEDS: Insulin Glargine,Hum.rec.anlog 100 UNIT/ML 10 ML VIAL 25 UNIT SUBCUT (08:05)
[2023-05-15] MEDS: Magnesium Oxide 400 MG TABLET PO ×2 (08:05→17:51)
[2023-05-15 08:10] VITALS: BP 125/72; PULSE 86; RESP 16; TEMP 36.6; O2SAT 96
[2023-05-15] MEDS: metFORMIN HCl 1,000 MG TABLET 1000 MG PO ×2 (08:17→17:51)
[2023-05-15] MEDS: Cyclobenzaprine HCl 10 MG TABLET PO ×2 (08:22→18:40)
[2023-05-15] MEDS: LORazepam 1 MG TABLET PO ×3 (08:23→23:30)
[2023-05-15 08:41] LABS: Glucose, Whole Blood 334 mg/dL (60-115)
[2023-05-15] MEDS: Insulin Lispro 100 UNIT/ML 3 ML VIAL SUBCUT ×4 (08:47→20:53)
[2023-05-15 09:00] LABS: HBS Num1 0.15 mIU/mL (0-7.99); HBc Num1 0.08 S/CO (0.00-0.79); HBsAGNum1 0.37 S/CO (0.00-0.99); Hepatitis A Antibody IgM 0.16 Index (0-0.79); Hepatitis B Core Antibody Nonreactive (Nonreactive); Hepatitis B Surface Antigen Negative (Negative); ~HepC Num1 0.12 S/CO (0.00-0.79); ~Hepatitis A Antibody IgM Nonreactive (Nonreactive); ~Hepatitis B Surface Antibody NONREACTIVE (Nonreactive); ~Hepatitis C Antibody Nonreactive (Nonreactive)
--- NOTE | 2023-05-15 10:29 | P.PNPSI_ITS ---
Subjective Subjective Date of Service: 05/15/23 Reason For Visit: Bipolar, PTSD Interim History: Met with Patient; discussed with team Patient reports that mood remains better no SI. However she continues to have pain. Transaction Manager discussed her history of pain and patient very clearly reports that just prior to this admission, she opened the door and the door knob hit her right breast and that the pain is located on the rib right below her breast, as well as on anterior breast. Patient says that when she moves it hurts, if she bends over and her breast moves it hurts and that touching her breast hurts. She is relieved to know there is no rib fracture. Patient said she never once said that it was abdominal pain; patient was tearful and said she felt that no one really listen to her explanation and felt marginalized. Patient says she feels like that a lot in life. Transaction Manager agreed to increase Tylenol to a 1000 mg and added extra Suboxone as a p.r.n. for pain Diarrhea resolved with Imodium Mental Status Exam Mental Status Exam Narrative: Pt is alert and oriented; behavior is cooperative and calm, friendly; patient is not in distress; dressed in casual attire with unkempt hair but adequate hygiene; mood is described as better and affect congruent; eye contact appropriate; Speech is normal rate, volume and prosody and not pressured; no psychomotor agitation/retardation present; thought process is organized and goal directed; Thought content is on pain in right breast; tx; otherwise pertinent to relevant topics and without any delusional content, paranoid ideations or grandiosity; denies any SI/HI. There is no evidence of perceptual disturbance. Patients insight and judgment appear intact. Diagnostics Vital Signs (24Hr): Vital Signs - 24 hr 05/14/23 18:00 05/15/23 08:10 Temperature 97.2 F 97.8 F Pulse Rate 89 86 Respiratory Rate 18 16 Blood Pressure 144/75 H 125/72 Pulse Oximetry 97 96 Oxygen Delivery Method Room Air Room Air BMI result Body Mass Index 33.6 Labs 05/14/23 10:47 Labs: Laboratory Results - last 48 hr 05/13/23 05/13/23 05/13/23 11:32 17:00 20:47 Creatinine Estim Creat Clear Calc Estimated GFR POC Glucose 240 H 233 H 285 H Hepatitis A IgM Ab Hep Bs Antigen Hep Bs Antibody Hep B Core Total Ab Hepatitis C Ab (EIA) 05/14/23 05/14/23 05/14/23 08:56 10:47 10:47 Creatinine 0.99 Estim Creat Clear Calc 68.0 Estimated GFR 59 POC Glucose 306 H Hepatitis A IgM Ab Nonreactive Hep Bs Antigen Negative Hep Bs Antibody NONREACTIVE Hep B Core Total Ab Nonreactive Hepatitis C Ab (EIA) Nonreactive 05/14/23 05/14/23 05/14/23 11:58 17:09 20:14 Creatinine Estim Creat Clear Calc Estimated GFR POC Glucose 245 H 187 H 307 H Hepatitis A IgM Ab Hep Bs Antigen Hep Bs Antibody Hep B Core Total Ab Hepatitis C Ab (EIA) 05/15/23 08:36 Creatinine Estim Creat Clear Calc Estimated GFR POC Glucose 334 H Hepatitis A IgM Ab Hep Bs Antigen Hep Bs Antibody Hep B Core Total Ab Hepatitis C Ab (EIA) Imaging Radiology Impressions: ITS Impressions Abdomen CT 05/12/23 15:28 IMPRESSION: No acute findings. Stable 1 cm left renal angiomyolipoma. Moderate stool burden questionable for constipation Fleischner guidelines were followed. Ribs X-Ray 05/14/23 17:55 IMPRESSION: Unremarkable examination. Medications Medications Current Medications Acetaminophen (Acetaminophen 325 Mg Tablet) 650 mg PO Q6H PRN PRN Reason: Headache/Pain Mild Scale (1-3) Last Admin: 05/14/23 20:21 Dose: 650 mg Al Hydroxide/Mg Hydroxide (Magnesium Hydrox/Alum Hydrox 30 Ml Oral.Susp) 30 ml PO Q6H PRN PRN Reason: Heartburn/Nausea Albuterol Sulfate (Albuterol Sulfate 90 Mcg 8 Gm Inhaler) 1 puff INHALE RQ4H PRN PRN Reason: Wheezing Apixaban (Apixaban 5 Mg Tablet) 5 mg PO BID [facility] Last Admin: 05/15/23 08:05 Dose: 5 mg Aripiprazole (Aripiprazole 5 Mg Tablet) 5 mg PO DAILY [facility] Last Admin: 05/15/23 08:05 Dose: 5 mg Atorvastatin Calcium (Atorvastatin Calcium 40 Mg Tablet) 40 mg PO BEDTIME [facility] Last Admin: 05/14/23 20:21 Dose: 40 mg Bacitracin (Bacitracin Oint 14 Gm Tube) 1 appl TOPICAL BID [facility]; Protocol Last Admin: 05/14/23 20:34 Dose: 1 appl Bisacodyl (Bisacodyl 5 Mg Tablet.Dr) 5 mg PO DAILY PRN PRN Reason: Constipation Buprenorphine/Naloxone (Buprenorphine/Naloxone 8/2 Mg Film) 1 film SUBLINGUAL DAILY [facility] Last Admin: 05/15/23 08:04 Dose: 1 film Cyclobenzaprine HCl (Cyclobenzaprine Hcl 10 Mg Tablet) 10 mg PO TID PRN PRN Reason: Muscle Spasm Last Admin: 05/15/23 08:22 Dose: 10 mg Dextrose (Dextrose 50 % 25 Gm/50 Ml Syringe) 25 gm IVPUSH Q15M PRN; Protocol PRN Reason: per Hypoglycemia Standing Ord. Docusate Sodium (Docusate Sodium 100 Mg Capsule) 100 mg PO BEDTIME [facility] Last Admin: 05/14/23 20:20 Dose: 100 mg Doxepin HCl (Doxepin Hcl 25 Mg Capsule) 25 mg PO BEDTIME [facility] Last Admin: 05/14/23 20:21 Dose: 25 mg Glucose (Glucose Gel 15 Gm Gel..Gram.) 15 gm PO Q15M PRN; Protocol PRN Reason: per Hypoglycemia Standing Ord. Insulin Glargine (Insulin Glargine,Hum.Rec.Anlog 100 Unit/Ml 10 Ml Vial) 25 unit SUBCUT DAILY [facility] Last Admin: 05/15/23 08:05 Dose: 25 unit Insulin Human Lispro (Insulin Lispro 100 Unit/Ml 3 Ml Vial) 0 unit SUBCUT QIDACHS [facility]; Protocol Last Admin: 05/15/23 08:47 Dose: 8 unit Levothyroxine Sodium (Levothyroxine Sodium 25 Mcg Tablet) 25 mcg PO DAILY@0600 [facility] Last Admin: 05/15/23 05:54 Dose: 25 mcg Lidocaine (Lidocaine 4 % Patch Adh..Patch) 2 patch TRANSDERMA DAILY [facility]; Protocol Last Admin: 05/14/23 09:13 Dose: 2 patch Lorazepam (Lorazepam 1 Mg Tablet) 1 mg PO Q4H PRN PRN Reason: agitation Last Admin: 05/15/23 08:23 Dose: 1 mg Losartan Potassium (Losartan Potassium 50 Mg Tablet) 100 mg PO DAILY [facility]; Protocol Last Admin: 05/15/23 08:04 Dose: 100 mg Magnesium Hydroxide (Milk Of Magnesia 30 Ml Oral.Susp) 30 ml PO DAILY PRN PRN Reason: Constipation Magnesium Oxide (Magnesium Oxide 400 Mg Tablet) 400 mg PO BIDPC [facility] Last Admin: 09/04/23 08:05 Dose: 400 mg Metformin HCl (Metformin Hcl 1,000 Mg Tablet) 1,000 mg PO BIDWM [facility] Last Admin: 05/15/23 08:17 Dose: 1,000 mg Polyethylene Glycol (Polyethylene Glycol 3350 17 Gm Powd.Pack) 17 gm PO DAILY P RN PRN Reason: constipation Prazosin HCl (Prazosin Hcl 1 Mg Capsule) 2 mg PO BEDTIME [facility]; Protocol Last Admin: 05/14/23 20:20 Dose: 2 mg Prazosin HCl (Prazosin Hcl 1 Mg Capsule) 1 mg PO DAILY [facility]; Protocol Last Admin: 05/15/23 08:04 Dose: 1 mg Senna (Sennosides 8.6 Mg Tablet) 17.2 mg PO BEDTIME [facility] Last Admin: 05/14/23 20:20 Dose: 17.2 mg Topiramate (Topiramate 100 Mg Tablet) 100 mg PO BEDTIME [facility] Last Admin: 05/14/23 20:36 Dose: 100 mg Topiramate (Topiramate 25 Mg Tablet) 25 mg PO DAILY [facility] Last Admin: 05/15/23 08:05 Dose: 25 mg Trazodone HCl (Trazodone Hcl 50 Mg Tablet) 50 mg PO BEDTIME MRX1 PRN PRN Reason: Insomnia Vitamin D (Cholecalciferol (Vitamin D3) 25 Mcg Tablet) 25 mcg PO DAILY [facility] Last Admin: 05/15/23 08:05 Dose: 25 mcg Allergies Allergies Allergy/AdvReac Type Severity Reaction Status Date / Time Iodinated Contrast Media Allergy Severe THROAT Verified 08/03/21 14:34 [IV CONTRAST] CLOSING lithium [LITHIUM] Allergy Intermediate AGGRESSION, Verified 08/03/21 14:34 stiffened up & throat closing (moderate to severe) fluoxetine [FLUOXETINE] Allergy Mild ITCHING, Verified 08/03/21 14:34 Suicidal risperidone [From RISPERDAL] Allergy Mild ITCHING Verified 08/03/21 14:34 asparagus [ASPARAGUS] Allergy Unknown unknown Verified 08/03/21 14:34 divalproex sodium Allergy Unknown UNKNOWN, Verified 08/03/21 14:34 [From DEPAKOTE] stiffened up, locked jaw lisinopril [LISINOPRIL] Allergy Unknown COUGH Verified 08/03/21 14:34 olanzapine Allergy Unknown can't Verified 08/03/21 14:34 recall if hives or increased pollen extracts [POLLEN] Allergy Unknown unknown Verified 08/03/21 14:34 tomato [TOMATO] Allergy Unknown UNKNOWN Verified 08/03/21 14:34 quetiapine [From SEROQUEL] AdvReac Intermediate OVERSEDATIO Verified 08/03/21 14:34 N BROCCOLI Allergy Unknown Unknown Uncoded 08/03/21 14:34 FUMARATE Allergy Unknown Unknown Uncoded 08/03/21 14:34 GREEN CHEUNG Allergy Unknown Unknown Uncoded 08/03/21 14:34 TOMATO Allergy Unknown Unknown Uncoded 08/03/21 14:34 Assessment & Plan Assessment & Plan (1) Post traumatic stress disorder (PTSD): Status: Acute Code(s): F43.10 - Post-traumatic stress disorder, unspecified (2) MDD (major depressive disorder), recurrent severe, without psychosis: Status: Acute Code(s): F33.2 - Major depressive disorder, recurrent severe without psychotic features (3) Opioid use disorder: Status: Acute Code(s): F11.90 - Opioid use, unspecified, uncomplicated (4) Cocaine use disorder: Status: Acute Code(s): F14.10 - Cocaine abuse, uncomplicated (5) Excoriation (skin-picking) disorder: Status: Acute Code(s): F42.4 - Excoriation (skin-picking) disorder Plan 52 yo female, history of PTSD, Depression, Opiate, Cocaine use disorder. S/P suicide attempt via OD of #10 8 mg Suboxone, Doxepin 100 mg and Lantus 240mg. ICU transfer from [facility]. Hospital course: 05/13 patient reports that she is fine and SI is all gone. Intermittent com plaints of abdominal pain however negative CT. Continue current treatment plan 05/14 patient says her mood is definitely better; SI fully resolved. Still intermittently complaining about right-sided abdominal pain, though CT scan negative, hospitalist has addressed 05/15 Transaction Manager discussed her history of pain and patient very clearly reports that just prior to this admission, she opened the door and the door knob hit her right breast and that the pain is located on the rib right below her breast, as well as on anterior breast. Patient says that when she moves it hurts, if she bends over and her breast moves it hurts and that touching her breast hurts. She is relieved to know there is no rib fracture. Patient said she never once said that it was abdominal pain; patient was tearful and said she felt that no one really listen to her explanation and felt marginalized. Patient says she feels like that a lot in life. Transaction Manager agreed to increase Tylenol to a 1000 mg and added extra Suboxone as a p.r.n. for pain -otherwise mood is better and all SI remains resolved Plan: -added Suboxone 4/1 mg b.i.d. p.r.n. for breast tissue pain status post mild blunt trauma -increased Tylenol to 1000 mg p.r.n. Imodium helpful for loose stool Re-establish regime Medical consult for abdominal pain-diagnostics are pending Full milieu Collateral contact Recovery support Aftercare/Discharge Planning. Patient educated on: diagnosis, medication risk/benefits and medical condition Informed Consent: understands Reason for continued inpatient stay Substantial Risk for: stable for discharge Time Spent With Patient Time: Total time managing care of this patient today ____ minutes.
[2023-05-15] MEDS: Lidocaine 4 % Patch ADH..PATCH 2 PATCH TRANSDERMA (11:22)
[2023-05-15 12:59] LABS: Glucose, Whole Blood 248 mg/dL (60-115)
[2023-05-15 16:57] LABS: Glucose, Whole Blood 248 mg/dL (60-115)
[2023-05-15 18:00] VITALS: BP 130/82; PULSE 86; RESP 17; TEMP 36.6; O2SAT 97
[2023-05-15] MEDS: Acetaminophen 325 MG TABLET 975 MG PO (20:12)
[2023-05-15] MEDS: Prazosin HCL 1 MG CAPSULE 2 MG PO (20:12)
[2023-05-15] MEDS: Topiramate 100 MG TABLET PO (20:13)
[2023-05-15] MEDS: Atorvastatin Calcium 40 MG TABLET PO (20:13)
[2023-05-15] MEDS: Doxepin HCl 25 MG CAPSULE PO (20:13)
[2023-05-15] MEDS: Buprenorphine/Naloxone 4/1 mg FILM 1 FILM SUBLINGUAL (20:13)
[2023-05-15 20:45] LABS: Glucose, Whole Blood 210 mg/dL (60-115)
[2023-05-16] MEDS: Levothyroxine Sodium 25 MCG TABLET PO (05:54)
[2023-05-16 08:45] LABS: Glucose, Whole Blood 316 mg/dL (60-115)
[2023-05-16] MEDS: Insulin Lispro 100 UNIT/ML 3 ML VIAL SUBCUT ×3 (08:56→20:26)
[2023-05-16] MEDS: Topiramate 25 MG TABLET PO (08:59)
[2023-05-16] MEDS: Prazosin HCL 1 MG CAPSULE PO (08:59)
[2023-05-16] MEDS: ARIPiprazole 5 MG TABLET PO (08:59)
[2023-05-16] MEDS: metFORMIN HCl 1,000 MG TABLET 1000 MG PO ×2 (08:59→17:30)
[2023-05-16] MEDS: Apixaban 5 MG TABLET PO ×2 (08:59→19:35)
[2023-05-16] MEDS: Cholecalciferol (Vitamin D3) 25 MCG TABLET PO (08:59)
[2023-05-16] MEDS: Magnesium Oxide 400 MG TABLET PO ×2 (08:59→17:30)
[2023-05-16] MEDS: Losartan Potassium 50 MG TABLET 100 MG PO (08:59)
[2023-05-16] MEDS: Cyclobenzaprine HCl 10 MG TABLET PO ×2 (09:07→19:38)
[2023-05-16] MEDS: LORazepam 1 MG TABLET PO ×2 (09:07→19:38)
[2023-05-16] MEDS: Buprenorphine/Naloxone 8/2 mg FILM 1 FILM SUBLINGUAL (09:08)
[2023-05-16] MEDS: Insulin Glargine,Hum.rec.anlog 100 UNIT/ML 10 ML VIAL 25 UNIT SUBCUT (09:09)
[2023-05-16 09:30] VITALS: BP 130/78; PULSE 89; RESP 20; TEMP 36.8; O2SAT 96
[2023-05-16] MEDS: Lidocaine 4 % Patch ADH..PATCH 2 PATCH TRANSDERMA (09:35)
[2023-05-16 12:46] LABS: Glucose, Whole Blood 280 mg/dL (60-115)
--- NOTE | 2023-05-16 16:33 | HO.PSYCHPN ---
Subjective Subjective Date of Service: 05/16/23 Reason For Visit: Bipolar, PTSD Subjective Notes: Conditional Voluntary and 3 Day Healthcare Proxy: No Guardianship: No Medical Problems Affecting Mental Status: No Interim History: Pt discussed aftercare planning. TDN to 05/17. Denies SI, HI. States she needs to focus on having strength and persistance to be a support to her grand-daughter and for follow up for her personal goals. Plans follow up with her medical team upon discharge, diagnostics are negative thus far. Reflects upon her admission as being useful to help her to readjust perspective. I let the stress of it all get to me. I know how to manage this better now. Medication Compliance: Yes Side effects from medications: No Attending Groups: Intermittent Review of Systems Acute medical concerns: No Medical Review of Systems: unchanged Mental Status Exam Mental Status Exam Patient Appearance: Appropriate Patient Orientation: Person, Place, Time and Situation Level of Consciousness: Alert Patient Behavior: Appropriate, Talkative and Good Eye Contact Mood Description: Appropriate Affect Description: Appropriate Patient Cognition Impaired: No Ability to Follow Directions: Good Speech Pattern: Spontaneous Speech Memory Description: Intact Hallucinations: None Delusions: Not Present Thought Process: Goal Oriented Thought Content: positive for Goal Oriented Depressive Symptoms: Low Self Esteem Judgement: Good Diagnostics Vital Signs (24Hr): Vital Signs - 24 hr 05/15/23 18:00 05/16/23 09:30 Temperature 97.8 F 98.2 F Pulse Rate 86 89 Respiratory Rate 17 20 Blood Pressure 130/82 130/78 Pulse Oximetry 97 96 Oxygen Delivery Method Room Air Room Air BMI result Body Mass Index 33.6 Labs 05/14/23 10:47 Labs: Laboratory Results - last 48 hr 05/14/23 05/14/23 05/14/23 10:47 17:09 20:14 POC Glucose 187 H 307 H Hepatitis A IgM Ab Nonreactive Hep Bs Antigen Negative Hep Bs Antibody NONREACTIVE Hep B Core Total Ab Nonreactive Hepatitis C Ab (EIA) Nonreactive 05/15/23 05/15/23 05/15/23 08:36 12:54 16:52 POC Glucose 334 H 248 H 248 H Hepatitis A IgM Ab Hep Bs Antigen Hep Bs Antibody Hep B Core Total Ab Hepatitis C Ab (EIA) 05/15/23 05/16/23 05/16/23 20:40 08:41 12:41 POC Glucose 210 H 316 H 280 H Hepatitis A IgM Ab Hep Bs Antigen Hep Bs Antibody Hep B Core Total Ab Hepatitis C Ab (EIA) Imaging Radiology Impressions: ITS Impressions Abdomen CT 05/12/23 15:28 IMPRESSION: No acute findings. Stable 1 cm left renal angiomyolipoma. Moderate stool burden questionable for constipation Fleischner guidelines were followed. Ribs X-Ray 05/14/23 17:55 IMPRESSION: Unremarkable examination. Chest X-Ray 05/16/23 15:05 IMPRESSION: No evidence for acute disease in the chest. Scarring or subsegmental atelectasis at the left lung base similar to recent exam. Medications Medications Current Medications Acetaminophen (Acetaminophen 325 Mg Tablet) 975 mg PO Q6H PRN PRN Reason: Headache/Pain Mild Scale (1-3) Last Admin: 05/15/23 20:12 Dose: 975 mg Al Hydroxide/Mg Hydroxide (Magnesium Hydrox/Alum Hydrox 30 Ml Oral.Susp) 30 ml PO Q6H PRN PRN Reason: Heartburn/Nausea Albuterol Sulfate (Albuterol Sulfate 90 Mcg 8 Gm Inhaler) 1 puff INHALE RQ4H PRN PRN Reason: Wheezing Apixaban (Apixaban 5 Mg Tablet) 5 mg PO BID [facility] Last Admin: 05/16/23 08:59 Dose: 5 mg Aripiprazole (Aripiprazole 5 Mg Tablet) 5 mg PO DAILY [facility] Last Admin: 05/16/23 08:59 Dose: 5 mg Atorvastatin Calcium (Atorvastatin Calcium 40 Mg Tablet) 40 mg PO BEDTIME [facility] Last Admin: 05/15/23 20:13 Dose: 40 mg Bacitracin (Bacitracin Oint 14 Gm Tube) 1 appl TOPICAL BID [facility]; Protocol Last Admin: 05/16/23 09:54 Dose: Not Given Bisacodyl (Bisacodyl 5 Mg Tablet.Dr) 5 mg PO DAILY PRN PRN Reason: Constipation Buprenorphine/Naloxone (Buprenorphine/Naloxone 8/2 Mg Film) 1 film SUBLINGUAL DAILY [facility] Last Admin: 05/16/23 09:08 Dose: 1 film Buprenorphine/Naloxone (Buprenorphine/Naloxone 4/1 Mg Film) 1 film SUBLINGUAL BID PRN PRN Reason: Pain, Severe (Pain Scale 7-10) Last Admin: 05/15/23 20:13 Dose: 1 film Cyclobenzaprine HCl (Cyclobenzaprine Hcl 10 Mg Tablet) 10 mg PO TID PRN PRN Reason: Muscle Spasm Last Admin: 05/16/23 09:07 Dose: 10 mg Dextrose (Dextrose 50 % 25 Gm/50 Ml Syringe) 25 gm IVPUSH Q15M PRN; Protocol PRN Reason: per Hypoglycemia Standing Ord. Docusate Sodium (Docusate Sodium 100 Mg Capsule) 100 mg PO BEDTIME [facility] Last Admin: 05/15/23 22:34 Dose: Not Given Doxepin HCl (Doxepin Hcl 25 Mg Capsule) 25 mg PO BEDTIME [facility] Last Admin: 05/15/23 20:13 Dose: 25 mg Glucose (Glucose Gel 15 Gm Gel..Gram.) 15 gm PO Q15M PRN; Protocol PRN Reason: per Hypoglycemia Standing Ord. Insulin Glargine (Insulin Glargine,Hum.Rec.Anlog 100 Unit/Ml 10 Ml Vial) 25 unit SUBCUT DAILY [facility] Last Admin: 05/16/23 09:09 Dose: 25 unit Insulin Human Lispro (Insulin Lispro 100 Unit/Ml 3 Ml Vial) 0 unit SUBCUT QIDACHS [facility]; Protocol Last Admin: 05/16/23 12:57 Dose: 6 unit Levothyroxine Sodium (Levothyroxine Sodium 25 Mcg Tablet) 25 mcg PO DAILY@0600 [facility] Last Admin: 05/16/23 05:54 Dose: 25 mcg Lidocaine (Lidocaine 4 % Patch Adh..Patch) 2 patch TRANSDERMA DAILY [facility]; Protocol Last Admin: 05/16/23 09:35 Dose: 1 patch Loperamide HCl (Loperamide Hcl 2 Mg Capsule) 4 mg PO Q4H PRN PRN Reason: Loose Stool Lorazepam (Lorazepam 1 Mg Tablet) 1 mg PO Q4H PRN PRN Reason: agitation Last Admin: 05/16/23 09:07 Dose: 1 mg Losartan Potassium (Losartan Potassium 50 Mg Tablet) 100 mg PO DAILY [facility]; Protocol Last Admin: 05/16/23 08:59 Dose: 100 mg Magnesium Hydroxide (Milk Of Magnesia 30 Ml Oral.Susp) 30 ml PO DAILY PRN PRN Reason: Constipation Magnesium Oxide (Magnesium Oxide 400 Mg Tablet) 400 mg PO BIDPC [facility] Last Admin: 05/16/23 08:59 Dose: 400 mg Metformin HCl (Metformin Hcl 1,000 Mg Tablet) 1,000 mg PO BIDWM [facility] Last Admin: 05/16/23 08:59 Dose: 1,000 mg Polyethylene Glycol (Polyethylene Glycol 3350 17 Gm Powd.Pack) 17 gm PO DAILY PRN PRN Reason: constipation Prazosin HCl (Prazosin Hcl 1 Mg Capsule) 2 mg PO BEDTIME [facility]; Protocol Last Admin: 05/15/23 20:12 Dose: 2 mg Prazosin HCl (Prazosin Hcl 1 Mg Capsule) 1 mg PO DAILY [facility]; Protocol Last Admin: 05/16/23 08:59 Dose: 1 mg Senna (Sennosides 8.6 Mg Tablet) 17.2 mg PO BEDTIME [facility] Last Admin: 05/15/23 22:34 Dose: Not Given Topiramate (Topiramate 100 Mg Tablet) 100 mg PO BEDTIME [facility] Last Admin: 05/15/23 20:13 Dose: 100 mg Topiramate (Topiramate 25 Mg Tablet) 25 mg PO DAILY [facility] Last Admin: 05/16/23 08:59 Dose: 25 mg Trazodone HCl (Trazodone Hcl 50 Mg Tablet) 50 mg PO BEDTIME MRX1 PRN PRN Reason: Insomnia Vitamin D (Cholecalciferol (Vitamin D3) 25 Mcg Tablet) 25 mcg PO DAILY [facility] Last Admin: 05/16/23 08:59 Dose: 25 mcg Allergies Allergies Allergy/AdvReac Type Severity Reaction Status Date / Time Iodinated Contrast Media Allergy Severe THROAT Verified 08/03/21 14:34 [IV CONTRAST] CLOSING lithium [LITHIUM] Allergy Intermediate AGGRESSION, Verified 08/03/21 14:34 stiffened up & throat closing (moderate to severe) fluoxetine [FLUOXETINE] Allergy Mild ITCHING, Verified 08/03/21 14:34 Suicidal risperidone [From RISPERDAL] Allergy Mild ITCHING Verified 08/03/21 14:34 asparagus [ASPARAGUS] Allergy Unknown unknown Verified 08/03/21 14:34 divalproex sodium Allergy Unknown UNKNOWN, Verified 08/03/21 14:34 [From DEPAKOTE] stiffened up, locked jaw lisinopril [LISINOPRIL] Allergy Unknown COUGH Verified 08/03/21 14:34 olanzapine Allergy Unknown can't Verified 08/03/21 14:34 recall if hives or increased pollen extracts [POLLEN] Allergy Unknown unknown Verified 08/03/21 14:34 tomato [TOMATO] Allergy Unknown UNKNOWN Verified 08/03/21 14:34 quetiapine [From SEROQUEL] AdvReac Intermediate OVERSEDATIO Verified 08/03/21 14:34 N BROCCOLI Allergy Unknown Unknown Uncoded 08/03/21 14:34 FUMARATE Allergy Unknown Unknown Uncoded 08/03/21 14:34 GREEN CHEUNG Allergy Unknown Unknown Uncoded 08/03/21 14:34 TOMATO Allergy Unknown Unknown Uncoded 08/03/21 14:34 Assessment & Plan Assessment & Plan (1) Post traumatic stress disorder (PTSD): Status: Acute Code(s): F43.10 - Post-traumatic stress disorder, unspecified (2) MDD (major depressive disorder), recurrent severe, without psychosis: Status: Acute Code(s): F33.2 - Major depressive disorder, recurrent severe without psychotic features (3) Opioid use disorder: Status: Acute Code(s): F11.90 - Opioid use, unspecified, uncomplicated (4) Cocaine use disorder: Status: Acute Code(s): F14.10 - Cocaine abuse, uncomplicated (5) Excoriation (skin-picking) disorder: Status: Acute Code(s): F42.4 - Excoriation (skin-picking) disorder Plan 52 yo female, history of PTSD, Depression, Opiate, Cocaine use disorder. S/P suicide attempt via OD of #10 8 mg Suboxone, Doxepin 100 mg and Lantus 240mg. ICU transfer from [facility]. Hospital course: 05/13 patient reports that she is fine and SI is all gone. Intermittent complaints of abdominal pain however negative CT. Continue current treatment plan 05/14 patient says her mood is definitely better; SI fully resolved. Still intermittently complaining about right-sided abdominal pain, though CT scan negative, hospitalist has addressed 05/15 Lead Generator discussed her history of pain and patient very clearly reports that just prior to this admission, she opened the door and the door knob hit her right breast and that the pain is located on the rib right below her breast, as well as on anterior breast. Patient says that when she moves it hurts, if she bends over and her breast moves it hurts and that touching her breast hurts. She is relieved to know there is no rib fracture. Patient said she never once said that it was abdominal pain; patient was tearful and said she felt that no one really listen to her explanation and felt marginalized. Patient says she feels like that a lot in life. Lead Generator agreed to increase Tylenol to a 1000 mg and added extra Suboxone as a p.r.n. for pain -otherwise mood is better and all SI remains resolved 05/16/23: Discharge 05/17/23. Plan: -added Suboxone 4/1 mg b.i.d. p.r.n. for breast tissue pain status post mild blunt trauma -increased Tylenol to 1000 mg p.r.n. Imodium helpful for loose stool Re-establish regime Medical consult for abdominal pain-diagnostics are pending Full milieu Collateral contact Recovery support Aftercare/Discharge Planning. Patient educated on: medication risk/benefits and therapeutic strategies Informed Consent: understands Reason for continued inpatient stay Substantial Risk for: rapid decompensation Time Spent With Patient Time: Total time managing care of this patient today ____ minutes.
[2023-05-16 16:41] LABS: Glucose, Whole Blood 140 mg/dL (60-115)
[2023-05-16 18:00] VITALS: BP 132/82; PULSE 85; RESP 16; TEMP 36.4; O2SAT 98
[2023-05-16] MEDS: Atorvastatin Calcium 40 MG TABLET PO (19:34)
[2023-05-16] MEDS: Doxepin HCl 25 MG CAPSULE PO (19:34)
[2023-05-16] MEDS: Prazosin HCL 1 MG CAPSULE 2 MG PO (19:35)
[2023-05-16] MEDS: Docusate Sodium 100 MG CAPSULE PO (19:36)
[2023-05-16] MEDS: Topiramate 100 MG TABLET PO (19:36)
[2023-05-16] MEDS: Sennosides 8.6 MG TABLET 17.2 MG PO (19:36)
[2023-05-16 19:57] LABS: Glucose, Whole Blood 277 mg/dL (60-115)
[2023-05-16] MEDS: Magnesium Hydrox/Alum Hydrox 30 ML ORAL.SUSP PO (20:26)
--- NOTE | 2023-05-16 22:54 | PC.NURSE ---
Pt reports throwing up blood, She describes vomit as dark red, states that she feels like there is faeces in her mouth. She is also complaining of right upper quadrant pain of 10. call person provider, Henry Miranda notified. hospitalist Dr. Acosta Notified, order for CBC, type and screen given.
[2023-05-17 00:11] LABS: MANUAL DIFF FLAG NO
[2023-05-17 00:14] LABS: Basophils Absolute Auto 0.1 X10*3/uL (0.0-0.2); Basophils Percent Auto 1.3 % (0-2); Eosinophils Absolute Auto 0.3 X10*3/uL (0.0-0.4); Eosinophils Percent Auto 5.3 % (0-4); Hematocrit 39.1 % (37.0-47.0); Hematocrit 39.4 % (37.0-47.0); Hemoglobin 13.3 g/dl (12.0-16.0); Imm Gran Abs Auto 0.05 X10*3/uL (0.00-0.03); Imm Gran Pct Auto 0.9 % (0.0-0.4); Lymphocytes Absolute Auto 1.7 X10*3/uL (1.2-4.9); Lymphocytes Percent Auto 30.8 % (20-40); Mean Corpuscular HGB Conc 33.8 g/dl (31.0-35.0); Mean Corpuscular Hemoglobin 28.1 pg (27.0-33.0); Mean Corpuscular Hemoglobin 28.5 pg (27.0-33.0); Mean Corpuscular Volume 83.1 fL (80.0-98.0); Mean Corpuscular Volume 83.9 fL (80.0-98.0); Mean Platelet Volume 9.8 fL (9.4-12.3); Monocytes Absolute Auto 0.4 X10*3/uL (0.1-1.2); Monocytes Percent Auto 7.5 % (2-11); Neutrophils Percent Auto 54.2 % (45-73); Platelet Count 195 X10*3/uL (160-400); Platelet Count 213 X10*3/uL (160-400); Red Blood Count 4.66 X10*6/uL (4.20-5.50); Red Blood Count 4.74 X10*6/uL (4.20-5.50); Red Cell Distribution Width 11.4 % (11.0-16.0); Red Cell Distribution Width 11.5 % (11.0-16.0); White Blood Count 5.3 X10*3/uL (4.8-10.8); White Blood Count 5.5 X10*3/uL (4.8-10.8)
[2023-05-17 00:24] LABS: Prothrombin Time 11.9 SEC (11.1-13.3)
[2023-05-17 00:38] LABS: COVID-19 Test Negative (Negative); IDNOW Serial# 08D9AD1C
--- NOTE | 2023-05-17 00:56 | PM.EVENT ---
Event Note Date of Service: 05/17/23 Event Note: Pt reported vomitting blood, and that her mouth taset like feces and having ruq pain. the emesis not seen by staff, H/H is normal, the pain is unchanged from earlier day, abdominal exam: Soft, no disteneed, +bowel sounds. She had CT of abdomen on 05/12 for same pain and was unremarkable, last bowel movment was yesterday. Suggest repeat H/H in the morning, consider gi eval, abdominal xray although clinically no evidence of obstruction Time Spent With Patient Time: Total time managing care of this patient today ____ minutes.
[2023-05-17] MEDS: Levothyroxine Sodium 25 MCG TABLET PO (04:46)
[2023-05-17] MEDS: Magnesium Hydrox/Alum Hydrox 30 ML ORAL.SUSP PO (04:46)
[2023-05-17 08:33] LABS: Glucose, Whole Blood 224 mg/dL (60-115)
[2023-05-17 09:00] VITALS: BP 139/79; PULSE 93; RESP 18; TEMP 36.3; O2SAT 95
[2023-05-17] MEDS: Cyclobenzaprine HCl 10 MG TABLET PO (09:30)
[2023-05-17] MEDS: Apixaban 5 MG TABLET PO (09:30)
[2023-05-17] MEDS: Buprenorphine/Naloxone 8/2 mg FILM 1 FILM SUBLINGUAL (09:30)
[2023-05-17] MEDS: metFORMIN HCl 1,000 MG TABLET 1000 MG PO (09:30)
[2023-05-17] MEDS: LORazepam 1 MG TABLET PO (09:30)
[2023-05-17] MEDS: Insulin Lispro 100 UNIT/ML 3 ML VIAL SUBCUT (09:31)
[2023-05-17] MEDS: Insulin Glargine,Hum.rec.anlog 100 UNIT/ML 10 ML VIAL 25 UNIT SUBCUT (09:31)
[2023-05-17] MEDS: Magnesium Oxide 400 MG TABLET PO (09:31)
[2023-05-17] MEDS: Cholecalciferol (Vitamin D3) 25 MCG TABLET PO (09:31)
[2023-05-17] MEDS: Prazosin HCL 1 MG CAPSULE PO (09:31)
[2023-05-17] MEDS: Losartan Potassium 50 MG TABLET 100 MG PO (09:31)
[2023-05-17] MEDS: Topiramate 25 MG TABLET PO (09:31)
[2023-05-17] MEDS: ARIPiprazole 5 MG TABLET PO (09:31)
[2023-05-17] MEDS: Lidocaine 4 % Patch ADH..PATCH 2 PATCH TRANSDERMA (09:32)
--- NOTE | 2023-05-17 15:44 | P.DS_ITS ---
DS: Providers Provider Date of Service: 05/17/23 Date of admission: 05/11/23 17:55 Date of discharge: 05/17/23 Primary care physician: Unknown Physician Admitting clinician: Tayler Mcgill Attending physician on admission: Vidal Andersen Consults: 05/11/23 18:57 Consult to Hospitalist Routine Comment: Consulting Provider: Hospitalist Reason For Exam: [facility] 05/12/23 12:38 Consult to Hospitalist Stat Comment: Consulting Provider: Hospitalist Reason For Exam: severe RUQ pain sudden onset Attending physician on discharge: Vidal Andersen Discharging clinician: Tayler Mcgill DS: Diagnosis Discharge Diagnosis (1) Post traumatic stress disorder (PTSD): Status: Acute (2) MDD (major depressive disorder), recurrent severe, without psychosis: Status: Acute (3) Opioid use disorder: Status: Acute (4) Cocaine use disorder: Status: Acute (5) Excoriation (skin-picking) disorder: Status: Acute DS: Medications Discharge Medications Home Medications: Home Medications Medication Instructions Recorded Confirmed apixaban 5 mg tablet (Eliquis) 5 mg PO BID 08/25/20 05/11/23 blood sugar diagnostic (FreeStyle #10 ea 08/25/20 03/18/21 Lite Strips) lancets 28 gauge (FreeStyle #100 ea 08/25/20 03/18/21 Lancets) nebulizers (AeroEclipse II #1 ea 08/25/20 03/18/21 Nebulizer) pen needle, diabetic 32 gauge x #50 ea 08/25/20 03/18/21 5/32 (Comfort EZ Pen [place]) atorvastatin 40 mg tablet 1 tab PO DAILY 06/07/22 05/11/23 buprenorphine 8 mg-naloxone 2 mg 1 strip sublingual DAILY 06/07/22 05/11/23 sublingual film (Suboxone) cholecalciferol (vitamin D3) 25 1 cap PO DAILY 06/07/22 05/11/23 mcg (1,000 unit) capsule (Vitamin D3) fluticasone propionate 220 1 puff inhalation BID 06/07/22 05/11/23 mcg/actuation HFA aerosol inhaler (Flovent HFA) insulin glargine 100 unit/mL (3 25 unit subcut QAM 06/07/22 05/11/23 mL) subcutaneous pen (Lantus Solostar U-100 Insulin) losartan 100 mg tablet 1 tab PO DAILY 06/07/22 05/11/23 topiramate 25 mg tablet 1 tab PO DAILY 06/07/22 05/11/23 bisacodyl 5 mg tablet 5 mg PO DAILY PRN Constipation 05/11/23 05/11/23 docusate sodium 100 mg capsule 100 mg PO DAILY 05/11/23 05/11/23 magnesium oxide 400 mg PO BID 05/11/23 05/11/23 metformin 500 mg tablet,extended 1,000 mg PO BID 05/11/23 05/11/23 release 24 hr nicotine 21 mg/24 hr daily 1 patch transdermal DAILY 05/11/23 05/11/23 transdermal patch polyethylene glycol 3350 17 gram 17 g PO DAILY PRN Constipation 05/11/23 05/11/23 oral powder packet (Miralax) topiramate 100 mg tablet 100 mg PO BEDTIME 05/11/23 05/11/23 Previous Rx's Medication Instructions Recorded albuterol sulfate 90 mcg/actuation 2 puff inhalation RQ4H PRN 07/25/22 aerosol inhaler (Ventolin HFA) wheezing #0 grams doxepin 25 mg capsule 25 mg PO BEDTIME 30 days #30 caps 07/25/22 aripiprazole 5 mg tablet (Abilify) 5 mg PO DAILY #14 tabs 05/17/23 prazosin 1 mg capsule 1 mg PO DAILY #14 caps 05/17/23 prazosin 1 mg capsule 2 mg PO BEDTIME #14 caps 05/17/23 Mental Status Exam Mental Status Exam Patient Appearance: Appropriate Patient Orientation: Person, Place, Time and Situation Level of Consciousness: Alert Patient Behavior: Appropriate, Talkative and Good Eye Contact Mood Description: Appropriate Affect Description: Appropriate Patient Cognition Impaired: No Ability to Follow Directions: Good Speech Pattern: Spontaneous Speech Memory Description: Intact Hallucinations: None Delusions: Not Present Thought Process: Goal Oriented Thought Content: positive for Goal Oriented Depressive Symptoms: Low Self Esteem Judgement: Good Data Data Completed and Pending Completed studies during hospitalization [Text1]: 05/11/23 05/11/23 05/12/23 18:39 21:14 08:10 WBC RBC Hgb Hct MCV MCH MCHC RDW Plt Count MPV Immature Gran % (Auto) Neut % (Auto) Lymph % (Auto) [place] % (Auto) Eos % (Auto) Baso % (Auto) Lymph # (Auto) [place] # (Auto) Eos # (Auto) Baso # (Auto) Abs Immat Gran (auto) Absolute Neuts (auto) Absolute Nucleated RBC Nucleated RBC % (auto) PT INR Creatinine Estim Creat Clear Calc Estimated GFR POC Glucose 339 H 420 H* Estimat Average Glucose 321 Hemoglobin A1c % 12.8 H Magnesium Total Bilirubin Direct Bilirubin AST ALT Alkaline Phosphatase Total Protein Albumin Triglycerides Cholesterol LDL Cholesterol, Calc HDL Cholesterol Vitamin B12 Folate TSH Free T4 COVID-19 (JARRETT) COVID-19 Clin Com Hepatitis A IgM Ab Hep Bs Antigen Hep Bs Antibody Hep B Core Total Ab Hepatitis C Ab (EIA) Blood Type Antibody Screen 05/12/23 05/12/23 05/12/23 08:10 08:10 08:14 WBC RBC Hgb Hct MCV MCH MCHC RDW Plt Count MPV Immature Gran % (Auto) Neut % (Auto) Lymph % (Auto) [place] % (Auto) Eos % (Auto) Baso % (Auto) Lymph # (Auto) [place] # (Auto) Eos # (Auto) Baso # (Auto) Abs Immat Gran (auto) Absolute Neuts (auto) Absolute Nucleated RBC Nucleated RBC % (auto) PT INR Creatinine Estim Creat Clear Calc Estimated GFR POC Glucose 325 H Estimat Average Glucose Hemoglobin A1c % Magnesium 1.7 Total Bilirubin Direct Bilirubin AST ALT Alkaline Phosphatase Total Protein Albumin Triglycerides 178 H Cholesterol 188 LDL Cholesterol, Calc 103 H HDL Cholesterol 50 Vitamin B12 724 Folate 15.4 TSH 5.81 H Free T4 0.84 COVID-19 (JARRETT) COVID-19 Clin Com Hepatitis A IgM Ab Hep Bs Antigen Hep Bs Antibody Hep B Core Total Ab Hepatitis C Ab (EIA) Blood Type Antibody Screen 05/12/23 05/12/23 05/12/23 12:20 14:46 16:28 WBC RBC Hgb Hct MCV MCH MCHC RDW Plt Count MPV Immature Gran % (Auto) Neut % (Auto) Lymph % (Auto) [place] % (Auto) Eos % (Auto) Baso % (Auto) Lymph # (Auto) [place] # (Auto) Eos # (Auto) Baso # (Auto) Abs Immat Gran (auto) Absolute Neuts (auto) Absolute Nucleated RBC Nucleated RBC % (auto) PT INR Creatinine Estim Creat Clear Calc Estimated GFR POC Glucose 253 H 158 H Estimat Average Glucose Hemoglobin A1c % Magnesium Total Bilirubin 0.3 Direct Bilirubin 0.1 AST 32 H ALT 54 H Alkaline Phosphatase 168 H Total Protein 7.5 Albumin 3.9 Triglycerides Cholesterol LDL Cholesterol, Calc HDL Cholesterol Vitamin B12 Folate TSH Free T4 COVID-19 (JARRETT) COVID-19 Clin Com Hepatitis A IgM Ab Hep Bs Antigen Hep Bs Antibody Hep B Core Total Ab Hepatitis C Ab (EIA) Blood Type Antibody Screen 05/12/23 05/13/23 05/13/23 21:41 07:42 11:32 WBC RBC Hgb Hct MCV MCH MCHC RDW Plt Count MPV Immature Gran % (Auto) Neut % (Auto) Lymph % (Auto) [place] % (Auto) Eos % (Auto) Baso % (Auto) Lymph # (Auto) [place] # (Auto) Eos # (Auto) Baso # (Auto) Abs Immat Gran (auto) Absolute Neuts (auto) Absolute Nucleated RBC Nucleated RBC % (auto) PT INR Creatinine Estim Creat Clear Calc Estimated GFR POC Glucose 304 H 262 H 240 H Estimat Average Glucose Hemoglobin A1c % Magnesium Total Bilirubin Direct Bilirubin AST ALT Alkaline Phosphatase Total Protein Albumin Triglycerides Cholesterol LDL Cholesterol, Calc HDL Cholesterol Vitamin B12 Folate TSH Free T4 COVID-19 (JRARETT) COVID-19 Clin Com Hepatitis A IgM Ab Hep Bs Antigen Hep Bs Antibody Hep B Core Total Ab Hepatitis C Ab (EIA) Blood Type Antibody Screen 05/13/23 05/13/23 05/14/23 17:00 20:47 08:56 WBC RBC Hgb Hct MCV MCH MCHC RDW Plt Count MPV Immature Gran % (Auto) Neut % (Auto) Lymph % (Auto) [place] % (Auto) Eos % (Auto) Baso % (Auto) Lymph # (Auto) [place] # (Auto) Eos # (Auto) Baso # (Auto) Abs Immat Gran (auto) Absolute Neuts (auto) Absolute Nucleated RBC Nucleated RBC % (auto) PT INR Creatinine Estim Creat Clear Calc Estimated GFR POC Glucose 233 H 285 H 306 H Estimat Average Glucose Hemoglobin A1c % Magnesium Total Bilirubin Direct Bilirubin AST ALT Alkaline Phosphatase Total Protein Albumin Triglycerides Cholesterol LDL Cholesterol, Calc HDL Cholesterol Vitamin B12 Folate TSH Free T4 COVID-19 (JARRETT) COVID-19 Clin Com Hepatitis A IgM Ab Hep Bs Antigen Hep Bs Antibody Hep B Core Total Ab Hepatitis C Ab (EIA) Blood Type Antibody Screen 05/14/23 05/14/23 05/14/23 10:47 10:47 11:58 WBC RBC Hgb Hct MCV MCH MCHC RDW Plt Count MPV Immature Gran % (Auto) Neut % (Auto) Lymph % (Auto) [place] % (Auto) Eos % (Auto) Baso % (Auto) Lymph # (Auto) [place] # (Auto) Eos # (Auto) Baso # (Auto) Abs Immat Gran (auto) Absolute Neuts (auto) Absolute Nucleated RBC Nucleated RBC % (auto) PT INR Creatinine 0.99 Estim Creat Clear Calc 68.0 Estimated GFR 59 POC Glucose 245 H Estimat Average Glucose Hemoglobin A1c % Magnesium Total Bilirubin Direct Bilirubin AST ALT Alkaline Phosphatase Total Protein Albumin Triglycerides Cholesterol LDL Cholesterol, Calc HDL Cholesterol Vitamin B12 Folate TSH Free T4 COVID-19 (JARRETT) COVID-19 Clin Com Hepatitis A IgM Ab Nonreactive Hep Bs Antigen Negative Hep Bs Antibody NONREACTIVE Hep B Core Total Ab Nonreactive Hepatitis C Ab (EIA) Nonreactive Blood Type Antibody Screen 05/14/23 05/14/23 05/15/23 17:09 20:14 08:36 WBC RBC Hgb Hct MCV MCH MCHC RDW Plt Count MPV Immature Gran % (Auto) Neut % (Auto) Lymph % (Auto) [place] % (Auto) Eos % (Auto) Baso % (Auto) Lymph # (Auto) [place] # (Auto) Eos # (Auto) Baso # (Auto) Abs Immat Gran (auto) Absolute Neuts (auto) Absolute Nucleated RBC Nucleated RBC % (auto) PT INR Creatinine Estim Creat Clear Calc Estimated GFR POC Glucose 187 H 307 H 334 H Estimat Average Glucose Hemoglobin A1c % Magnesium Total Bilirubin Direct Bilirubin AST ALT Alkaline Phosphatase Total Protein Albumin Triglycerides Cholesterol LDL Cholesterol, Calc HDL Cholesterol Vitamin B12 Folate TSH Free T4 COVID-19 (JARRETT) COVID-19 Clin Com Hepatitis A IgM Ab Hep Bs Antigen Hep Bs Antibody Hep B Core Total Ab Hepatitis C Ab (EIA) Blood Type Antibody Screen 05/15/23 05/15/23 05/15/23 12:54 16:52 20:40 WBC RBC Hgb Hct MCV MCH MCHC RDW Plt Count MPV Immature Gran % (Auto) Neut % (Auto) Lymph % (Auto) [place] % (Auto) Eos % (Auto) Baso % (Auto) Lymph # (Auto) [place] # (Auto) Eos # (Auto) Baso # (Auto) Abs Immat Gran (auto) Absolute Neuts (auto) Absolute Nucleated RBC Nucleated RBC % (auto) PT INR Creatinine Estim Creat Clear Calc Estimated GFR POC Glucose 248 H 248 H 210 H Estimat Average Glucose Hemoglobin A1c % Magnesium Total Bilirubin Direct Bilirubin AST ALT Alkaline Phosphatase Total Protein Albumin Triglycerides Cholesterol LDL Cholesterol, Calc HDL Cholesterol Vitamin B12 Folate TSH Free T4 COVID-19 (JARRETT) COVID-19 Clin Com Hepatitis A IgM Ab Hep Bs Antigen Hep Bs Antibody Hep B Core Total Ab Hepatitis C Ab (EIA) Blood Type Antibody Screen 05/16/23 05/16/23 05/16/23 00:10 08:41 12:41 WBC RBC Hgb Hct MCV MCH MCHC RDW Plt Count MPV Immature Gran % (Auto) Neut % (Auto) Lymph % (Auto) [place] % (Auto) Eos % (Auto) Baso % (Auto) Lymph # (Auto) [place] # (Auto) Eos # (Auto) Baso # (Auto) Abs Immat Gran (auto) Absolute Neuts (auto) Absolute Nucleated RBC Nucleated RBC % (auto) PT INR Creatinine Estim Creat Clear Calc Estimated GFR POC Glucose 316 H 280 H Estimat Average Glucose Hemoglobin A1c % Magnesium Total Bilirubin Direct Bilirubin AST ALT Alkaline Phosphatase Total Protein Albumin Triglycerides Cholesterol LDL Cholesterol, Calc HDL Cholesterol Vitamin B12 Folate TSH Free T4 COVID-19 (JARRETT) Negative COVID-19 Clin Com See Note Hepatitis A IgM Ab Hep Bs Antigen Hep Bs Antibody Hep B Core Total Ab Hepatitis C Ab (EIA) Blood Type Antibody Screen 05/16/23 05/16/23 05/16/23 16:37 19:48 22:07 WBC RBC Hgb Hct MCV MCH MCHC RDW Plt Count MPV Immature Gran % (Auto) Neut % (Auto) Lymph % (Auto) [place] % (Auto) Eos % (Auto) Baso % (Auto) Lymph # (Auto) [place] # (Auto) Eos # (Auto) Baso # (Auto) Abs Immat Gran (auto) Absolute Neuts (auto) Absolute Nucleated RBC Nucleated RBC % (auto) PT INR Creatinine Estim Creat Clear Calc Estimated GFR POC Glucose 140 H 277 H Estimat Average Glucose Hemoglobin A1c % Magnesium Total Bilirubin Direct Bilirubin AST ALT Alkaline Phosphatase Total Protein Albumin Triglycerides Cholesterol LDL Cholesterol, Calc HDL Cholesterol Vitamin B12 Folate TSH Free T4 COVID-19 (JARRETT) Cancelled COVID-19 Clin Com Cancelled Hepatitis A IgM Ab Hep Bs Antigen Hep Bs Antibody Hep B Core Total Ab Hepatitis C Ab (EIA) Blood Type Antibody Screen 05/17/23 05/17/23 05/17/23 00:06 00:06 00:06 WBC 5.5 5.3 RBC 4.66 4.74 Hgb 13.3 13.3 Hct 39.1 39.4 MCV 83.9 83.1 MCH 28.5 28.1 MCHC 34.0 33.8 RDW 11.5 11.4 Plt Count 213 195 MPV 9.8 9.8 Immature Gran % (Auto) 0.9 H Neut % (Auto) 54.2 Lymph % (Auto) 30.8 [place] % (Auto) 7.5 Eos % (Auto) 5.3 H Baso % (Auto) 1.3 Lymph # (Auto) 1.7 [place] # (Auto) 0.4 Eos # (Auto) 0.3 Baso # (Auto) 0.1 Abs Immat Gran (auto) 0.05 H Absolute Neuts (auto) 3.0 Absolute Nucleated RBC 0.000 0.000 Nucleated RBC % (auto) 0.0 0.0 PT 11.9 INR 1.0 Creatinine Estim Creat Clear Calc Estimated GFR POC Glucose Estimat Average Glucose Hemoglobin A1c % Magnesium Total Bilirubin Direct Bilirubin AST ALT Alkaline Phosphatase Total Protein Albumin Triglycerides Cholesterol LDL Cholesterol, Calc HDL Cholesterol Vitamin B12 Folate TSH Free T4 COVID-19 (JARRETT) COVID-19 Clin Com Hepatitis A IgM Ab Hep Bs Antigen Hep Bs Antibody Hep B Core Total Ab Hepatitis C Ab (EIA) Blood Type Antibody Screen 05/17/23 05/17/23 05/17/23 00:06 08:16 09:10 WBC RBC Hgb Hct MCV MCH MCHC RDW Plt Count MPV Immature Gran % (Auto) Neut % (Auto) Lymph % (Auto) [place] % (Auto) Eos % (Auto) Baso % (Auto) Lymph # (Auto) [place] # (Auto) Eos # (Auto) Baso # (Auto) Abs Immat Gran (auto) Absolute Neuts (auto) Absolute Nucleated RBC Nucleated RBC % (auto) PT INR Creatinine Estim Creat Clear Calc Estimated GFR POC Glucose 224 H Estimat Average Glucose Hemoglobin A1c % Magnesium Total Bilirubin Direct Bilirubin AST ALT Alkaline Phosphatase Total Protein Albumin Triglycerides Cholesterol LDL Cholesterol, Calc HDL Cholesterol Vitamin B12 Folate TSH Free T4 COVID-19 (JARRETT) COVID-19 Clin Com Hepatitis A IgM Ab Hep Bs Antigen Hep Bs Antibody Hep B Core Total Ab Hepatitis C Ab (EIA) Blood Type O Positive O Positive Antibody Screen NEGATIVE NEGATIVE Imaging Diagnostic Imaging Impressions Abdomen CT 05/12/23 15:28 IMPRESSION: No acute findings. Stable 1 cm left renal angiomyolipoma. Moderate stool burden questionable for constipation Fleischner guidelines were followed. Ribs X-Ray 05/14/23 17:55 IMPRESSION: Unremarkable examination. Chest X-Ray 05/16/23 15:05 IMPRESSION: No evidence for acute disease in the chest. Scarring or subsegmental atelectasis at the left lung base similar to recent exam. Abdomen Ultrasound 05/16/23 16:30 IMPRESSION: No acute findings. Small periportal lymph node. DS: Summary Hospital Course Hospital Course: Admission to adult psychiatry for exacerbation of PTSD, Bipolar Disorder, Excoriation Disorder, Opiate and Cocaine Use Disorders. Pt sent in transfer s/p overdose of lantus, suboxone, doxepin. Three day notice signed on admission. Pt was well engaged during her admission, discussing precipitants of family discord and not being able to see her grandchild due to discord between her son and grandchilds mother. Medications were reviewed and adjusted. Pt participated with the team and in the milieu, focusing on learning added coping skills. She expressed much regret for her impulsive act and created a plan to communicate with her son and grandchilds mother regarding her concerns and wanting to be a part of the [facility] life. She will continue follow up in out patient therapy. Status at Discharge Functional status at discharge: independent ambulation Overall status at discharge: patient is progressing back to baseline Time Spent with Patient Time attestation: Total time managing care of this patient today ____ minutes. Time spent: Greater than 30 minutes Discharge Plan Discharge Anticipated Discharge Date/Time: 05/17/23 12:31 Patient Disposition: Home, Self-Care Discharge Diagnosis: PTSD Recurrent Major Depression Excoriation Disorder Opiate Use Disorder Cocaine Use Disorder Referrals: Aminata Bolton [Other] - 05/18/23 4:45 pm (Hospital Discharge Appointment with outpatient therapist You should ask therapist for referral to [facility] for psychiatry services when meeting with her on 05/18/23.) Lorie Goncalves MD [Physician] - 05/29/23 1:00 pm (in office) Discharge Medications: New prazosin 1 mg Capsule 1 mg PO DAILY Qty: 14 1RF Protocol: Hold for SBP< HOLD for SBP < : 90 prazosin 1 mg Capsule 2 mg PO BEDTIME Qty: 14 1RF Protocol: Hold for SBP< HOLD for SBP < : 90 aripiprazole [Abilify] 5 mg Tablet 5 mg PO DAILY Qty: 14 0RF Continued fluticasone propionate [Flovent HFA] 220 mcg/actuation HFA aerosol inhaler 1 puff inhalation BID buprenorphine-naloxone [Suboxone] 8-2 mg film 1 strip sublingual DAILY insulin glargine [Lantus Solostar U-100 Insulin] 100 unit/mL (3 mL) insulin pen 25 unit subcut QAM atorvastatin 40 mg tablet 1 tab PO DAILY topiramate 25 mg tablet 1 tab PO DAILY losartan 100 mg tablet 1 tab PO DAILY cholecalciferol (vitamin D3) [Vitamin D3] 25 mcg (1,000 unit) capsule 1 cap PO DAILY doxepin 25 mg Capsule 25 mg PO BEDTIME 30 Days Qty: 30 0RF albuterol sulfate [Ventolin HFA] 90 mcg/actuation Hfa Aerosol Inhaler 2 puff inhalation RQ4H PRN (Reason: wheezing) Qty: 0 0RF topiramate 100 mg Tablet 100 mg PO BEDTIME polyethylene glycol 3350 [Miralax] 17 gram Powder In Packet 17 g PO DAILY PRN (Reason: Constipation) nicotine 21 mg/24 hr Patch 24 Hour 1 patch TRANSDERMAL DAILY docusate sodium 100 mg Capsule 100 mg PO DAILY bisacodyl 5 mg Tablet 5 mg PO DAILY PRN (Reason: Constipation) magnesium oxide 400 mg magnesium Tablet 400 mg PO BID metformin 500 mg tablet extended release 24 hr 1,000 mg PO BID (DME) AeroEclipse II Nebulizer Misc See Rx Instructions .ROUTE .MEDSUPPLY Qty: 1 Rx Instructions: As directed (DME) lancets [FreeStyle Lancets] 28 gauge misc See Rx Instructions .ROUTE .MEDSUPPLY Qty: 100 Rx Instructions: As directed (DME) FreeStyle Lite Strips Strip See Rx Instructions .ROUTE .MEDSUPPLY Qty: 10 Rx Instructions: As directed (DME) pen needle, diabetic [Comfort EZ Pen [place]] 32 gauge x 5/32 needle See Rx Instructions .ROUTE .MEDSUPPLY Qty: 50 Rx Instructions: As directed Eliquis 5 mg tablet 5 mg PO BID Discharge Orders: Discharge Order (Routine); Ordered 05/17/23 Ordered By: Tayler Mcgill Diet: Advance to usual diet Activity on Discharge: As tolerated Stand Alone Forms: Patient Portal Discharge page, Community Support Care Plan Goals: Mood and behavioral stabilization Health Concerns: Mood and behavioral stabilization Plan of Treatment: Attend scheduled appointments Take medications as directed Assessment: Discharge via three day notice Discharge Date/Time: 05/17/23 11:20
== END 2023-05-17 11:20 | disposition home or self-care (01) | DRG 751 ==
PROVIDERS: Internal Medicine; Admitting Provider Psychiatry & Neurology Psychiatry; Visit Provider Clinical Nurse Specialist Psychiatric/Mental Health, Adult
DX: F33.2 Major depressive disorder, recurrent severe without psychotic features (principal); E11.42 Type 2 diabetes mellitus with diabetic polyneuropathy; F43.10 Post-traumatic stress disorder, unspecified; E78.00 Pure hypercholesterolemia, unspecified; G35 Multiple sclerosis; G89.29 Other chronic pain; M54.2 Cervicalgia; M54.9 Dorsalgia, unspecified; F14.10 Cocaine abuse, uncomplicated; F42.4 Excoriation (skin-picking) disorder; Z20.822 Contact with and (suspected) exposure to COVID-19; Z86.718 Personal history of other venous thrombosis and embolism; Z91.51 Personal history of suicidal behavior; Z86.711 Personal history of pulmonary embolism; Z91.041 Radiographic dye allergy status; Z79.899 Other long term (current) drug therapy
CPT/HCPCS: 36415; 71046; 71101; 74150; 76705; 80061; 80076; 82565; 82607; 82746; 82947; 83036; 83735; 84439; 84443; 85025; 85027; 85610; 86704; 86706; 86709; 86803; 86850; 86900; 86901; 87340; 87635

== ENCOUNTER → 2023-05-11 17:55 | Outpatient (BNV) | payer OTHER, SELFPAY | PROVIDERS: Admitting Provider Psychiatry & Neurology Psychiatry; Visit Provider Clinical Nurse Specialist Psychiatric/Mental Health, Adult | DX: F33.2 Major depressive disorder, recurrent severe without psychotic features (principal); F43.11 Post-traumatic stress disorder, acute; F11.90 Opioid use, unspecified, uncomplicated; F14.10 Cocaine abuse, uncomplicated; F42.4 Excoriation (skin-picking) disorder | CPT/HCPCS: 99231; 99232 ==

== ENCOUNTER → 2023-05-11 17:55 | Outpatient (BNV) | payer OTHER, SELFPAY | PROVIDERS: Admitting Provider Psychiatry & Neurology Psychiatry; Visit Provider Student in an Organized Health Care Education/Training Program | DX: Z02.2 Encounter for examination for admission to residential institution (principal) | CPT/HCPCS: 99429; 99499 ==

== ENCOUNTER 2023-08-08 14:14 | Outpatient (REF) | payer MEDICAID, SELFPAY ==
[2023-08-08 16:16] LABS: Alanine Aminotransferase 41 U/L (0-31); Albumin Level 3.9 g/dL (3.5-5.0); Alkaline Phosphatase 114 U/L (39-117); Anion Gap 12 (12-20); Aspartate Amino Transferase 19 U/L (5-31); Bilirubin Total 0.3 mg/dL (0.0-1.0); Blood Urea Nitrogen 20 mg/dL (9-16); Calcium 8.8 mg/dL (8.4-10.2); Carbon Dioxide 28 mmol/L (22-29); Chloride 103 mmol/L (96-108); Cholesterol 239 mg/dL (<200); Estimated Glomerular Filt Rate > 60; Glucose Random 296 mg/dL (60-115); HDL Cholesterol 60 mg/dL (>40); LDL Cholesterol Calculated 134 mg/dL (<100); Potassium 4.8 mmol/L (3.3-5.1); Sodium 138 mmol/L (135-145); Total Protein 7.3 g/dL (6.5-8.0); Triglycerides 227 mg/dL (<150)
[2023-08-08 16:17] LABS: Estimated Average Glucose 309 mg/dL; Hemoglobin A1c % 12.4 % (<6.0)
[2023-08-08 16:32] LABS: TSH reflex Free T4 3.48 uIU/mL (0.32-4.0)
[2023-08-08 16:46] LABS: Vitamin B12 549 pg/mL (200-900)
[2023-08-08 18:22] LABS: Creatinine Urine 89.39 mg/dL
[2023-08-08 19:12] LABS: Reflex LDLD? No
== END 2023-08-08 14:15 | disposition home or self-care (01) ==
LOC: HO.HHCL 14:14
PROVIDERS: Visit Provider Family Medicine
DX: E11.65 Type 2 diabetes mellitus with hyperglycemia (principal); Z79.4 Long term (current) use of insulin
CPT/HCPCS: 36415; 80053; 80061; 82043; 82570; 82607; 82746; 83036; 84443

== ENCOUNTER 2023-09-15 12:21 | Outpatient (REF) | payer MEDICAID, SELFPAY | END 2023-09-15 12:22 | disposition home or self-care (01) | LOC: HO.HHCX 12:21 | PROVIDERS: Visit Provider Emergency Medicine | DX: M25.531 Pain in right wrist (principal) | CPT/HCPCS: 73110 ==

== ENCOUNTER 2024-05-28 13:26 | Observation (INO) | payer MEDICAID, SELFPAY ==
[2024-05-28 13:31] VITALS: BP 130/88; PULSE 84; O2SAT 96
--- NOTE | 2024-05-28 13:37 | ED_ITS ---
HPI - General Adult General Chief complaint: Dental/Oral Stated complaint: tongue swelling Time Seen by Provider: 05/28/24 13:34 History of Present Illness ED Provider: Sonny HPI narrative: 53 y/o F patient; PMH HTN, atopic disorder, hx substance abuse, T2DM; presents from home reporting 1 week of tongue swelling that significantly worsened one day ago. Associated with splitting of the skin of her tongue. She states she has had this previously but never this severe. She has been unable to eat due to the swelling as she has been coughing/choking. She has been able to tolerate water and her own secretions. She denies any nausea/vomiting, diarrhea. She has a slightly slurred speech 2/2 to the tongue swelling. She states she was on Lisinopril until 1 year ago when she was taken off of it and changed to Losartan. She has seen an indoor landscaper/gardener previously but is not currently followed, she reports daily hives. Related Data Home Medications ?Medication ?Instructions ?Recorded ?Confirmed apixaban 5 mg tablet (Eliquis) 5 mg PO BID 08/25/20 05/11/23 blood sugar diagnostic (FreeStyle #10 ea 08/25/20 03/18/21 Lite Strips) lancets 28 gauge (FreeStyle #100 ea 08/25/20 03/18/21 Lancets) nebulizers (AeroEclipse II #1 ea 08/25/20 03/18/21 Nebulizer) pen needle, diabetic 32 gauge x #50 ea 08/25/20 03/18/21 5/32 (Comfort EZ Pen Valentine) atorvastatin 40 mg tablet 1 tab PO DAILY 06/07/22 05/11/23 buprenorphine 8 mg-naloxone 2 mg 1 strip sublingual DAILY 06/07/22 05/11/23 sublingual film (Suboxone) cholecalciferol (vitamin D3) 25 1 cap PO DAILY 06/07/22 05/11/23 mcg (1,000 unit) capsule (Vitamin D3) fluticasone propionate 220 1 puff inhalation BID 06/07/22 05/11/23 mcg/actuation HFA aerosol inhaler (Flovent HFA) insulin glargine 100 unit/mL (3 25 unit subcut QAM 06/07/22 05/11/23 mL) subcutaneous pen (Lantus Solostar U-100 Insulin) losartan 100 mg tablet 1 tab PO DAILY 06/07/22 05/11/23 topiramate 25 mg tablet 1 tab PO DAILY 06/07/22 05/11/23 bisacodyl 5 mg tablet 5 mg PO DAILY PRN Constipation 05/11/23 05/11/23 docusate sodium 100 mg capsule 100 mg PO DAILY 05/11/23 05/11/23 magnesium oxide 400 mg PO BID 05/11/23 05/11/23 metformin 500 mg tablet,extended 1,000 mg PO BID 05/11/23 05/11/23 release 24 hr nicotine 21 mg/24 hr daily 1 patch transdermal DAILY 05/11/23 05/11/23 transdermal patch polyethylene glycol 3350 17 gram 17 g PO DAILY PRN Constipation 05/11/23 05/11/23 oral powder packet (Miralax) topiramate 100 mg tablet 100 mg PO BEDTIME 05/11/23 05/11/23 Previous Rx's ?Medication ?Instructions ?Recorded albuterol sulfate 90 mcg/actuation 2 puff inhalation RQ4H PRN 07/25/22 aerosol inhaler (Ventolin HFA) wheezing #0 grams doxepin 25 mg capsule 25 mg PO BEDTIME 30 days #30 caps 07/25/22 aripiprazole 5 mg tablet (Abilify) 5 mg PO DAILY #14 tabs 05/17/23 prazosin 1 mg capsule 1 mg PO DAILY #14 caps 05/17/23 prazosin 1 mg capsule 2 mg PO BEDTIME #14 caps 05/17/23 Allergies Allergy/AdvReac Type Severity Reaction Status Date / Time Iodinated Contrast Media Allergy Severe THROAT Verified 05/28/24 13:39 [IV CONTRAST] CLOSING lithium [LITHIUM] Allergy Intermediate AGGRESSION, Verified 05/28/24 13:39 stiffened up & throat closing (moderate to severe) fluoxetine [FLUOXETINE] Allergy Mild ITCHING, Verified 05/28/24 13:39 Suicidal risperidone [From RISPERDAL] Allergy Mild ITCHING Verified 05/28/24 13:39 asparagus [ASPARAGUS] Allergy Unknown unknown Verified 05/28/24 13:39 divalproex sodium Allergy Unknown UNKNOWN, Verified 05/28/24 13:39 [From DEPAKOTE] stiffened up, locked jaw lisinopril [LISINOPRIL] Allergy Unknown COUGH Verified 05/28/24 13:39 olanzapine Allergy Unknown can't Verified 05/28/24 13:39 recall if hives or increased pollen extracts [POLLEN] Allergy Unknown unknown Verified 05/28/24 13:39 tomato [TOMATO] Allergy Unknown UNKNOWN Verified 05/28/24 13:39 quetiapine [From SEROQUEL] AdvReac Intermediate OVERSEDATIO Verified 05/28/24 13:39 N BROCCOLI Allergy Unknown Unknown Uncoded 08/03/21 14:34 FUMARATE Allergy Unknown Unknown Uncoded 08/03/21 14:34 GREEN CHEUNG Allergy Unknown Unknown Uncoded 08/03/21 14:34 TOMATO Allergy Unknown Unknown Uncoded 08/03/21 14:34 Review of Systems Review of Systems: Yes all other systems are reviewed and are negative Neurologic: Denies Sensory deficit (Neuro) PMFSH Past Medical History Attestation statement: The following information was validated with the patient. Source: old records reviewed Medical History Excoriation (skin-picking) disorder Back pain GERD (gastroesophageal reflux disease) Peripheral neuropathy PTSD (post-traumatic stress disorder) Mood disorder Elevated cholesterol Fibromyalgia Chronic back pain DDD (degenerative disc disease) Ovarian cyst Kidney stone Normal colonoscopy Lesion of bladder Suicide attempt Depression IBS (irritable bowel syndrome) Obesity (BMI 30-39.9) Endometriosis History of pulmonary embolus (PE) History of DVT (deep vein thrombosis) Diabetes mellitus Asthma HTN (hypertension) Anxiety Multiple sclerosis Surgical History History of lithotripsy History of cystoscopy S/P endometrial ablation H/O neck surgery Hx of dilation and curettage Hx of tubal ligation Hx of appendectomy Hx of cholecystectomy Family History Family History Mother Rheumatoid arteritis COPD (chronic obstructive pulmonary disease) Father HTN (hypertension) Diabetes mellitus Social History Social History Household Members: None Housing: Apartment Do you presently have visiting nurse or other home services: No Alcohol intake: current Alcohol intake frequency: does not drink Comment: 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 TO BE EVALUATED BY RN Patient Tobacco Use Status: Current everyday Tobacco user Tobacco use type: Cigarette Cigarettes Per Day: 4 Years Smoked: 30 Smoked in Last 30 Days: Yes e-Cigarette/Vaping Use: Never Used Second Hand Smoke Exposure: No Use of substances other than those prescribed or required for medical reasons: No Substance Use Type: Crack/Cocaine Advance Directives: Yes Advance Directives Information Provided: Yes Advance Directives on File: No Patient : No service: No Sexual orientation: Straight/Heterosexual Gender identity: Female Physical Exam ED Vital Signs: Vital Signs - 24 hr 05/28/24 13:38 05/28/24 14:19 Temperature 98.6 F Pulse Rate 76 74 Respiratory Rate 14 Blood Pressure 165/111 H 133/80 Pulse Oximetry 98 Oxygen Delivery Method Room Air BMI result Body Mass Index 31.1 Patient is afebrile and hemodynamically stable. Const General: cooperative Orientation/consciousness: patient oriented x3 HENMT Other: Tongue is grossly swollen with superior fissures present. No uvula swelling. No tonsillar swelling or erythema. Head: Yes normal to inspection and Yes atraumatic Eyes General: appearance normal, both eyes and all related structures Pupils: Equal, round and reactive pupils present EOM: EOMs intact bilaterally Neck Neck: Yes normal visual inspection, Yes full ROM, Yes supple and No tender Chest Chest palpation & inspection: normal inspection of the chest and normal palpation of entire chest wall Resp Effort & Inspection: normal respiratory effort, able to speak in complete sentences and no respiratory distress Auscultation: clear to auscultation bilaterally Cardio Rate: regular rate Rhythm: regular rhythm Peripheral pulses: Peripheral pulses 2+ throughout GI Inspection: Yes normal to inspection, No Abdominal wall edema and No distended Palpation (GI): Soft to palpation, not firm, nontender, no guarding and not rigid Auscultation: normal bowel sounds Neuro Other: Mildly slurred speech General: patient oriented x3 Cranial nerves: Yes Equal, round and reactive pupils present Motor exam (neuro): 5/5 motor strength present throughout Sensory Exam: No Sensory deficit (Neuro) Course Course Course Narrative: Patient is afebrile and hemodynamically stable. Will plan on period of observation. Unclear etiology of swelling - however concerning that it has been worsening acutely over the last 24 hours to the point where patient chokes with food. Suspect angioedema- question is iatrogenic 2/2 to Losartan versus idiopathic 2/2 to atopic disorder. Will provide IV SoluMedro, IV Benadryl, IV Famotidine, 1L IVF, IM Epinephrine. Patient re-examined after IM epinephrine with significant improvement in swelling. Resolution of voice changes. Added CBC and CMP per hospitalist request. Plan: Admit to hospitalist for observation Condition: Stable Medications Administered Discontinued Medications Generic Name Dose Route Start Last Admin Trade Name Freq PRN Reason Stop Dose Admin Diphenhydramine HCl 50 mg 05/28/24 13:44 05/28/24 14:23 Diphenhydramine Hcl 50 Mg/Ml Vial IVPUSH 05/28/24 13:45 Not Given ONCE ONE Epinephrine 0.3 mg 05/28/24 13:44 05/28/24 14:19 Epinephrine 1 Mg/Ml Vial IM 05/28/24 13:45 0.3 mg STAT STA Administration Famotidine 20 mg 05/28/24 13:44 05/28/24 14:23 Famotidine/Pf 20 Mg/2 Ml Vial IVPUSH 05/28/24 13:45 20 mg ONCE ONE Administration Methylprednisolone Sodium Succinate 125 mg 05/28/24 13:44 05/28/24 14:23 Methylprednisolone Sod Succ 125 Mg/2 Ml Vial IVPUSH 05/28/24 13:45 125 mg ONCE ONE Administration Discharge Plan Discharge Clinical Impression: Angioedema Patient Disposition: Admitted As Inpatient Print Language: Kazakh
[2024-05-28 13:38] VITALS: BP 165/111; PULSE 76; RESP 14; TEMP 37; O2SAT 98; BMI 31.1
--- OUTSIDE RECORDS SUMMARY | 2024-05-28 13:54 | XMS_ITS | Continuity of Care Document ---
Author Organization [facility] Address [address], [address], [address] [place] [id number]- Care Team Providers Care Corporate Compliance Officer Name Role Phone Ken VILLELA, Tyesha Primary Care Physician Encounter [facility] Date(s): 06/27/23 - 07/27/23 [facility] [address], [address], [address] [place] [id number] Attending Physician: Haley Lorenzo Admitting Physician: Admtr, Haley Referring Physician: Admtr, [id number] Allergies, Adverse Reactions, [...] vaccine 09/21/18 Recorded hepatitis B adult vaccine 2 02/02/16 Given hepatitis B adult vaccine 02/02/16 Recorded tetanus/diphtheria/pertussis, acel(Tdap) 06/08/17 Recorded tetanus/diphtheria/pertussis, acel(Tdap) 11/16/16 Recorded tetanus/diphtheria/pertussis, acel(Tdap) 11/23/15 Recorded pneumococcal 23-valent vaccine 05/18/16 Given pneumococcal 23-valent vaccine 06/25/11 Recorded pneumococcal 13-valent vaccine 05/18/16 Recorded FluLaval (oldterm) 3 06/28/12 Given tetanus-diphtheria toxoids (Td) 4 11/08/11 Given tetanus-diphtheria toxoids (Td) 11/08/11 Recorded Fluzone (oldterm) 5 11/08/11 Given 1Early/Late Reason: Other: not charted by previous staff yesterday 2Result Comment: [02/02/2016] ordered by Shanae Mccarty MD 3Admin Note: vis 03/12/12 4Admin Note: VIS GIVEN 07/29/2008 5Admin Note: vis given Medications albuterol CFC free 90 mcg/inh inhalation aerosol 2, puffs, Inhalation, 4 times a day, PRN, # 1 each, Refills 0, Tot. Refills 0, Soft Stop, 11/07/18 16:06:09 EST, Aerosol, Print Requisition, Compound Start Date: 11/07/18 Status: Ordered ARIPiprazole 5 mg oral tablet 5 mg, 1, tablet, By Mouth, Daily, Refills 0, Maintenance, 07/29/19 10:48:25 EST Start Date: 07/29/19 Status: Ordered Reading Thyroid 60 mg oral tablet 60 mg, [...] Confirmed Active Encounter for screening colonoscopy for [id number] patient Confirmed Active Encounter for screening colonoscopy [...] concentric LVH. ECHO 02-08-12 5MRI 08-20-15 ([facility]-scanned): disc desiccatios, disc bulges and mild [...] wrist cutting 9-See MRI done at [facility] 12-09-2015 10-T4-T8 disc bulging with mild left neural foraminal narrowing. MRI 01-29-16 (scanned-done at [facility]) 11-by ex partner, (father of children) Social History Social History Type Response Smoking Status 5-9 cigarettes (betw een 1/4 to 1/2 pack)/day in last 30 days entered on: 02/03/22 Sex Patient Care team information Care Team Personnel Name: Yana Rogers RN Position: [facility] ED RN W/OE and Tasks Member Role: Primary Care Nurse Name: Kinjal Vivar RN Position: [facility] RN Member Role: Primary Care Nurse Name: Augusta Cespedes RN Position: [facility] RN Member Role: Primary Care Nurse Name: Dedra Syed RN Position: [facility] RN Member Role: Primary Care Nurse Name: Kyra Lockhart RN Position: [facility] RN Member Role: Primary Care Nurse Name: Jill Allen RN Position: [facility] RN Member Role: Primary Care Nurse Name: Donna Beltre RN Position: [facility] RN Member Role: Primary Care Nurse Name: Carmita Canas RN Position: [facility] Rad RN Member Role: Primary Care Nurse Name: Jolene Bruner RN Position: [facility] RN Member Role: Primary Care Nurse Name: Melissa Urias RN Position: [facility] RN Member Role: Primary Care Nurse Name: Argenis Scruggs RN Position: [facility] ED RN W/OE and Tasks Member Role: Primary Care Nurse Name: Ada Harris RN Position: [facility] RN Member Role: Primary Care Nurse Name: Radha Montes De Oca RN Position: [facility] RN Member Role: Primary Care Nurse Name: Mira Rajan RN Position: [facility] SN RN Member Role: Primary Care Nurse Name: Anita De Jesus RN Position: [facility] ED RN W/OE and Tasks Member Role: Primary Care Nurse Name: Suzi Cowan RN Position: [facility] RN Member Role: Primary Care Nurse Name: Rebeka Ontiveros RN Position: [facility] RN Member Role: Primary Care Nurse Name: Jeremiah Al RN Position: [facility] SN RN Member Role: Primary Care Nurse Name: Regine Guerin RN Position: [facility] RN Member Role: Primary Care Nurse Name: Jocelyn Cristobal RN Position: [facility] SN RN Member Role: Primary Care Nurse Name: Apolonia Easton RN Position: [facility] RN Supv Member Role: Primary Care Nurse Name: Estefania Bhatti RN Position: [facility] RN Member Role: Primary Care Nurse Name: Eulogio Enciso RN Position: [facility] RN Member Role: Primary Care Nurse Name: Kamala Abdi RN Position: [facility] RN Member Role: Primary Care Nurse Name: Aquilino Sarah RN Position: [facility] SN RN Member Role: Primary Care Nurse Name: Stephanie Milian RN Position: [facility] SN RN Member Role: Primary Care Nurse Name: Concepcion Mondragon RN Position: [facility] RN Member Role: Primary Care Nurse Name: Macria Kuhn RN Position: [facility] RN Member Role: Primary Care Nurse Name: Adrián Wilcox RN Position: [facility] RN Member Role: Primary Care Nurse Name: Ada Aleman RN Position: [facility] ED RN W/OE and Tasks Member Role: Primary Care Nurse Name: Sharlene Macias Position: [facility] Outreach Member Role: Lifetime Consulting Physician Name: Tyesha Rogers MD Position: [facility] Outreach Member Role: PCP Address: Address: [address] [place] [id number]- Name: La Miranda RN Position: [facility] Stewardess Supervisor Member Role: Primary Care Nurse Name: Sunita Anthony RN Position: [facility] RN Member Role: Primary Care Nurse Name: Glendy Gandara RN Position: [facility] SN RN Member Role: Primary Care Nurse Name: Melanie Martinez RN Position: [facility] Onco RN Member Role: Primary Care Nurse Name: Rima Soliz RN Position: [facility] Stewardess Supervisor Member Role: Primary Care Nurse Name: Benjamin Cheatham MD Position: [facility] Physician - [facility] Member Role: Lifetime Consulting Physician Address: Address: [address] [place] [address]- Care Team Related Persons Name: JOSE ROBLEDO Address: [address] [place] [address] Name: YOHANA FOLEY Address: [place] [address]
--- OUTSIDE RECORDS SUMMARY | 2024-05-28 13:54 | XMS_ITS | Continuity of Care Document ---
Author Organization [facility] ter Address [address] [place] [id number] Care Team Providers Care Usability Strategist Name Role Phone Ken VILLELA, Tyesha Primary Care Physician Encounter [facility] Date(s): 10/28/23 - 10/29/23 [facility] [address] [place] [id number] Discharge Disposition: A-D/C Home Attending Physician: Nathan Sanabria MD Admitting Physician: Nathan Sanabria MD Referring Physician: Not on Staff, Referring MD Allergies, Adverse Reactions, Alerts Substance Reaction Severity Status lithium Active lisinopril Active Risperdal Active Depakote Active Cats Active Contrast Dye Active Dogs Active Pollen Active Tomatoes hives Active Other Food Allergy 1, 2, 3 A ctive ZyPREXA Active SEROquel Active FLUoxetine HCl Fluoxetine Active 1Asparagus 2broccoli and green beans 3green vegetables Immunizations Given and Recorded Vaccine Date [...] 10:48:25 EST Start Date: 07/29/19 Status: Ordered [place] Thyroid 60 mg oral tablet 60 mg, [...] Dry Weight Start Date: 12/20/22 Status: Ordered cephalexin monohydrate 250 mg oral capsule 1 capsule = 250 mg, By Mouth, Every 12 hours, for 7 days, # 14 capsule, 0 Refills, Acute 11/05/23 12:29:00 EST, 10/29/23 12:29:00 EST, Capsule, [facility], Partial fill upon patient request if the prescription is for a schedule II opioid... Start Date: 10/29/23 Stop Date: 11/05/23 Status: Ordered docusate sodium 100 mg oral capsule 1 capsule = 100 mg, By Mouth, 2 times a day Start Date: 06/22/21 Status: Ordered doxepin 25 mg oral capsule 1 capsule = 25 mg, By Mouth, Daily at bedtime Start Date: 06/22/21 Status: Ordered Eliquis 5 [...] 10:49:09 EST Start Date: 07/29/19 Status: Ordered Jessi-Dryl 25 mg oral tablet 1 tablet = 25 mg, By Mouth, Every 8 hours, PRN as needed for itching, 0 Refills, Maintenance, 02/03/22 16:21:00 EDT, Partial fill upon patient request if the prescription is for a schedule II opioid drug. Start Date: 02/03/22 Status: Ordered insulin glargine 100 u/ml subcutaneous solution = 25 units, Subcutaneous Injection, Daily at bedtime, # 10 mL, 0 Refills, Maintenance, 10/29/23 12:25:00 EST, Injection, [facility], Partial fill upon patient request if the prescription is for a schedule II opioid drug., 158, cm, ... Start Date: 10/29/23 Stop Date: 11/28/23 Status: Ordered insulin lispro 100 u/ml subcutaneous injection See Instructions, 8-16 units Subcutaneous Injection 3 times a day before meals << Sliding Scale Comments >> 100 - 149 8 units Call if less than 70 150 - 199 10 units 200 - 249 12 units 250 - 299 14 units 300 - 349 16 units Call if... Start Date: 10/29/23 Status: Ordered Lantus Solostar Pen 100 units/mL [...] EST, Tablet Start Date: 07/23/18 Status: Ordered oxyCODONE 5 mg oral tablet 5 mg, Tablet, By Mouth, Every 6 hours, PRN for Pain , Severe, Routine, 10/28/23 1:45:00 EST Start Date: 10/28/23 Stop Date: 10/29/23 Status: Discontinued oxyCODONE 5 mg oral tablet 5 mg, By Mouth, Every 8 hours, PRN, for 2 days, # 6 tablet, Refills 0, Tot. Refills 0, Acute 10/31/23 12:31:00 EST, Pain , Severe, 10/29/23 12:31:00 EST, Route to Pharmacy Electronically, [facility], Partial fill upon patient request if... Start Date: 10/29/23 Stop Date: 10/31/23 Status: Ordered prazosin 1 mg oral capsule 1 mg, 1, capsule, By Mouth, 2 times a day Start Date: 06/22/21 Status: [...] mg, 1, tablet, By Mouth, Daily at bedtime Start Date: 01/15/19 Status: Ordered Trulicity Pen 1.5 mg/0.5 mL subcutaneous solution 0.5 mL = 1.5 mg, Subcutaneous Injection, Every week, 0 Refills, Maintenance, 02/03/22 0:45:00 EDT, Solution, Partial fill upon patient request if the prescription is for a schedule II opioid drug. Start Date: 02/03/22 Status: Ordered Tylenol 325 mg oral tablet 975 mg, Tablet, By Mouth, 10/29/23 8:00:00 EST Start Date: 10/29/23 Stop Date: 10/29/23 Status: Completed Tylenol 325 mg oral tablet 650 mg, By Mouth, Every 6 hours, PRN, for 5 days, # 50 tablet, Refills 0, Tot. Refills 0, Acute 11/03/23 12:31:00 EST, Pain , Mild, 10/29/23 12:31:00 EST, Route to Pharmacy Electronically, [facility], Partial fill upon patient request if... Start Date: 10/29/23 Stop Date: 11/03/23 Status: Ordered Vitamin D3 1000 intl units [...] Confirmed Active Encounter for screening colonoscopy for [id number] patient Confirmed Active Encounter for screening colonoscopy [...] 4-Mild concentric LVH. ECHO 02-08-12 5MRI 08-20-15 ([facility]): disc desiccatios, disc bulges and mild face [...] 01/14, wrist cutting 9-See MRI done at [facility] 12-09-2015 10-T4-T8 disc bulging with mild left neural foraminal narrowing. MRI 01-29-16 (scanned-done at [facility]) 11-by ex partner, (father of children) Results Orders for Microbiology Reports Name Date Blood Culture 10/27/23 Blood Culture #2 10/27/23 Microbiology Reports TEST:Blood Culture, Second Order STATUS:Unauthenticated BODY SITE: SOURCE:Blood COLLECTED DATE/TIME:10/27/23 5:43 PM Blood Culture, Second Order SPECIMEN DESCRIPTION : BLOOD RIGHT FOREARM SPECIAL REQUESTS : NONE CULTURE : NO GROWTH AFTER 48 HOURS REPORT STATUS : PRELIMINARY REPORT TEST:Blood Culture STATUS:Unauthenticated BODY SITE: SOURCE:Blood COLLECTED DATE/TIME:10/27/23 5:01 PM Blood Culture SPECIMEN DESCRIPTION : BLOOD RAC SPECIAL REQUESTS : NONE CULTURE : NO GROWTH AFTER 48 HOURS REPORT STATUS : PRELIMINARY REPORT Radiology Reports * Exam Date Time Procedure Performing Provider Status 10/27/23 8:[address] Abdomen and Pelvi s W/O Contrast Debora Burnett; Auth (Verified) Notes: (CT Abdomen and Pelvis W/O Contrast) Reason For Exam: peritonitic s/p abd surgery;Other: RESULT: CT Abdomen and Pelvis W/O Contrast CT Abdomen and Pelvis W/O Contrast Hx of Present Illness: Pt ocming from home. Small bowel obtstruction and hernia repair x1 week ago.Pain since 4 days ago. +N v d and fever as well. No signs of bleeding reported. Blood sugar >600.; Reason: Other:; peritonitic s p abd surgery; Clinical Question(s): Abscess; Order Comment: Patient unable to tolerate PO contrast. CLJ-2 2023 16:00:39 EST, nurse will call when pt is ready. TECHNIQUE: Spiral CT through the abdomen and pelvis without IV contrast formatted in 3 planes. Thisstudy was performed without oral contrast. Weight- based protocol using automatic tube modulation was used to optimize exposure parameters. CTDIvol Body: 19.10 mGy, DLP Body: 1016 mGy*cm. COMPARISON: FINDINGS: Hadoop Administrator View Findings, Lines and Tubes: None. Visualized Chest: Lung bases are clear. No pleural effusion. The heart is normal in size. No pericardial effusion. Diaphragm: Normal. Liver: Normal. Gallbladder: Absent consistent with prior cholecystectomy. Bile ducts: No biliary ductal dilation. Spleen: Normal. Pancreas: Normal. Adrenal glands: Normal. Kidneys and ureters: No hydronephrosis, stones, or noncontrast evidence of suspicious masses. Bladder: Normal. Reproductive organs: Unremarkable. Stomach, small bowel, and large bowel: Normal. Appendix: Normal. Peritoneum and retroperitoneum: No ascites or pneumoperitoneum. No omental or mesenteric lesions. Lymph nodes: No enlarged lymph nodes. Blood vessels: Normal. No aneurysm. Abdominal and pelvic wall: Small area of fluid noted along the midline incision. This measures 3 x 1 x 14 cm maximal dimensions. Bones: L5 spondylolysis. Grade 1 spondylolisthesis. IMPRESSION: Fluid collection noted along the midline incision. This may represent postoperative fluid. Infection/abscess not excluded. WSN: [id number] Ordering Physician: Henry Salcido MD Dictated By: Brody Davis MD Dictated Date/Time: 10/27/23 9:01 pm Reviewed By: Brody Davis MD Signed By: Brody Davis MD Signed Date/Time: 10/27/23 9:01 pm Transcribed By: RICCARDO Transcribed Date/Time: 10/27/23 8:53 pm Vital Signs Most recent to oldest [Reference Range]: 1 2 3 Height 158 cm (10/29/23 10:44 AM) 158 cm (10/29/23 7:49 AM) 158 cm (10/29/23 3:42 AM) Weight 81 kg (10/28/23 8:20 AM) 81 kg (10/28/23 5:36 AM) 81 kg (10/28/23 2:27 AM) Oxygen Saturation [94-100 %] 100 % (10/29/23 10:44 AM) 100 % (10/29/23 7:49 AM) 100 % (10/29/23 3:42 AM) Pulse Rate [55-90 bpm] 80 bpm (10/29/23 10:44 AM) 75 bpm (10/29/23 7:49 AM) 70 bpm (10/29/23 3:42 AM) Body Mass Index [18.5-24.99 kg/m2] 32.45 kg/m2 *>HHI* (10/28/23 8:20 AM) 32.45 kg/m2 *>HHI* (10/28/23 5:36 AM) 32.45 kg/m2 *>HHI* (10/28/23 2:27 AM) Blood Pressure [90-138/55-84 mm Hg] 128/95mm Hg (10/29/23 10:44 AM) 162/93mm Hg *H* (10/29/23 7:49 AM) 161/81mm Hg *H* (10/29/23 3:42 AM) Respiratory Rate [16-30 br/min] 18 br/min (10/29/23 11:47 AM) 18 br/min (10/29/23 10:44 AM) 16 br/min (10/29/23 9:21 AM) Temperature [96.8-100.4 DegF] 97.5 DegF (10/29/23 10:44 AM) 97.9 DegF (10/29/23 7:49 AM) 97.5 DegF (10/29/23 3:42 AM) Mode of Delivery (Oxygen) Room air (10/29/23 10:44 AM) Room air (10/29/23 7:49 AM) Room air (10/29/23 3:42 AM) Blood pressure sites Arm, left (10/29/23 10:44 AM) Arm, left (10/29/23 7:49 AM) Arm, left (10/28/23 3:00 PM) Temperature Route Oral (10/29/23 10:44 AM) Oral (10/29/23 7:49 AM) Oral (10/29/23 3:42 AM) Dry Weight 81 kg (10/28/23 8:20 AM) 81 kg (10/28/23 5:36 AM) 81 kg (10/28/23 2:27 AM) Social History Social History Type Response Smoking Status 5-9 cigarettes (betw een 1/4 to 1/2 pack)/day in last 30 days entered on: 02/03/22 Sex EKG study * Event Display: ECG 12-Lead Authored Date: Please click on pdf link to open report * Event Display: ECG 12-Lead Authored Date: Ventricular Rate: 77 BPM Atrial Rate: 77 BPM P-R Interval: 130 ms QRS Duration: 98 ms Q-T Interval: 416 ms QTC Calculation(Bazett): 470 ms P Pingree: 4 degrees R Pingree: 11 degrees T Pingree: 18 degrees Normal sinus rhythm Voltage criteria for left ventricular hypertrophy ( R in aVL , Sokolow-Ivan , Conner product ) Abnormal ECG Confirmed by CYNTHIA BHATT ([id number]) on 10/28/2023 8:10:53 PM Erwinna: [facility] * Moses Pearson MD: PERFORM Event Display: Progress [facility] Authored Date: [id number] Patient: ??EMILY FOLEY ? Age:??52 Years?Sex:??Female?:??1970?? Subjective No acute events overnight. ??Patient states that her midline abdominal pain is significantly improved. ??Was seen by bids yesterday with small adjustment in her insulin sliding scale. ??Otherwise denies any nausea, vomiting, fevers, chills. ??Has been passing gas and having bowel movements. ??Tolerating diet. Physical Exam Vitals & Measurements T:??97.9?F?? HR:??75??(Peripheral)?? RR:??16?? BP:??162/93?? SpO2:??100%?? HT:??158??cm?? WT:??81??kg?? BMI:??32.45?? General:??Anxious, laying in bed Respiratory:??Nonlabored and symmetric on room air Cardiovascular:??Regular rate and rhythm Gastrointestinal:??Abdomen soft, nondistended, significantly tender??diffusely to palpation withoutany specific focus.?? Midline??laparotomy incision??is healing well, has some fibrinous material atthe middle of the incision. ??[place] removed with??expression of small amount of serous drainage Neurologic:??No focal neurological deficits. Moves all extremities spontaneously. Sensation intact bilaterally. Skin:??Widespread??discoloration of the abdomen and??bilateral upper and lower extremities.?? There??are occasional??1 cm x 1 cm??ulcerations??scattered throughout the body Musculoskeletal:??Normal range of motion.?? Assessment/Plan Emily is a 52-year-old female with past medical history of coronary artery disease (NSTEMI in 2018) type 2 diabetes, hypertension, MS, bipolar, DVT on Eliquis, and past surgical history of a laparoscopic cholecystectomy, tubal ligation, SBO status post ex lap with repair of abdominal wall defect with Dr. Nuno on 10/06.?? She was discharged on 10/11.?An emergency general surgery consultation was requested to evaluate her abdominal pain??and associated symptoms of subjective fevers, nausea, 1 episode of emesis, diarrhea, dizziness.?? Has been passing flatus and having bowel movements, therefore does not have any obstructive symptoms.?She does have a significant amount of tenderness topalpation??diffusely throughout her abdomen, but her incision??appears to be healing well without any signs of??tissue infection,??and??this may be consistent with DKA with??her??blood sugars of 475 with a beta-hydroxybutyrate of 0.34.?? Labs were otherwise unremarkable??with no leukocytosis or left shift.?? CT scan was obtained demonstrating??fluid collection??directly??deep to the midline incision.?? Midline li removed??overnight and??on 10/28 ??with??expression of seropurulent material. M idline wound appears better this AM with decreased drainage. Plan for DC once sugars under control. ? Plan: Regular diet BIDs for glucose control, will need PO plan for dc Continue Ancef, will need 7 days total of keflex on DC OOB Monitor bowel function Ativan as needed??for anxiety Pain control Anticipate discharge today vs tomorrow pending??glucose ?Discussed with ??Jodie ?Page ACS/EGS #[id number] with questions or concerns?? Intake and Output Intake and Output Results?? This visit (24 hour periods starting at 07:00 EST)? 10/29/23 *?? 10/28/23?? 10/27/23?? Total Summary?Intake mL?? --?? --?? 100?Output mL?? 300?? 1,700?? --?Fluid Balance ?? -300?? -1,700?? 100?? Intake (1)?Metronidazole mL?? --?? --?? 100?Total?? --?? --?? 100?? Output (1)?Urine Voided mL?? 300?? 1,700?? --?Total?? 300?? 1,700?? --?? Counts (2)?Urine Count ?? --?? 1?? --?Urine Voided mL?? 300?? 1,700?? --? * This column has not completed the indicated time period.?? Labs Last 24 Hours No qualifying data available. * Konstantin Whittaker RN: PERFORM, SIGN, VERIFY Event Display: Progress Note Hospital Authored Date: [id number] Patient: EMILY FOLEY Age: 52 years Sex: Female : 1970 Associated Diagnoses: None Author: Konstantin Whittaker RN Findings Problem Related to Alteration in Endocrine : Alteration in Endocrine Function/new 10/29/2023 9:00 EST Alteration in Endocrine Related to Diabetes Goals & Outcomes, Endocrine Pt will be maintained on sc insulin & appropriate diet, Pt willbe rehydrated, Pt will resume regular activities, Pt's blood glucose levels will be within MD parameters Interventions, Endocrine Assess/monitor GI/ status, Assess skin turgor, temperature & capillary refill, Consider Price Clerk consult; review recommendations, DVT prophylaxis as ordered, Maintain IV access, Maintain strict I&O, Monitor & document daily weight, Monitor pt's response to IVhydration, Provide info on community resources for education, support, Teach Pt/caregiver activity instructions, Teach Pt/caregiver pain management strategies, Teach Pt/caregiver signs & symptomsof hypoglycemia, Teach Pt/caregiver signs & symptoms of hyperglycemia, Teach Pt/caregiver use of home glucose monitoring, Teach Pt/caregiver Medic Alert bracelet/Wallet Notification Goals/Interventions, Endocrine Yes Endocrine, Problem Start 10/28/2023 23:53 Reviewed Plan with, Endocrine Patient Patient Progression, Endocrine Pt progressing according to plan . Alteration in Gastrointestinal : Alteration in Gastrointestinal Func/new 10/29/2023 9:00 EST Alteration in GI status Related to Abdominal Surgery, Other: Small bowel obstruction and hernia repair 1 week ago Goals & Outcomes, Gastrointestinal Establish a regular pattern of elimination for pt, Nutritional intake is adequate for metabolic needs, Pt will achieve normal/improved fluid balance, Pt will have a bowel movement prior to discharge, Pt will maintain adequate GI function appropriate for pt, Ptwill maintain normal elimination patterns, Pt will resume/maintain adequate hemodynamic status, Pt w ill tolerate age appropriate diet prior to discharge Interventions, Gastrointestinal Assess/monitor abdomen for distention, tenderness, Assess/monitor abdominal girth & bowel function, Assess/monitor bowel pattern, bowel sounds, flatus, Assess/monitor number of bowel movements, Assess/monitor color, quantity, quality, consistency of stoo, Assess/monitor pt for nausea, vomiting, Assess/monitor effects of re-hydration, Assess/monitor intake &output, Assess if pt tolerating diet, Collaborate/Consult with Price Clerk; review recommendations, DVT prophylaxis as ordered, Elevate HOB to facilitate lung expansion, prevent aspiration, Establish toileting schedule for patient, Taking PO: Encourage/monitor intake & swallowing ability, Enteral nutrition;check residuals; HOB >30 degrees, Nasogastric to LWS as ordered;care per Standards of Practice, Provide info on community resources for education, support, Provide/encourage oral care ifNPO, Teach Pt/caregiver diet & give copy of dietary instructions, Teach Pt/caregiver on bowel elimination interventions, Teach Pt/caregiver re: importance of bowel regime, Teach Pt/caregiver re: n utritional intake & dietary restrict, Teach/encourage deep breath & cough exercises, Teach/encourage use of incentive spirometer Goals/Interventions, Gastrointestinal Yes Gastrointestinal, Problem Start 10/28/2023 9:10 Reviewed plan with, Gastrointestinal Patient Patient Progression, Gastrointestinal Pt progressing according to plan . Evaluation P: Alteration in endocrine system I: See above for updtaed careplan E: Patient with history of T2DM, patient on POC monitoring, covered per sliding scale insulin, bothshort and long acting. Patient tolerating diabetic carb counting diet. Sugars running in the high 200s, BIDs consulted for discharge recomendations, awaiting consult. P: Alteration in GI function I: See above for updtaangi vasquez E: Patient able to ambulate times 1 assist from stretcher to bed, patient with reports of 6/10 painto abdomen on arrival to unit. Patient medicated with scheduled Tylenol with good effect. Midline incision with DSD dressing from previous abdominal surgery, small bowel obstruction and hernia repairreported to be a week prior. DSD dressing clean, dry and intact. Patient with +bowel sounds, LBM 10/28, patient reports it being loose stool, bowel meds this AM held. Patient with dim/clear lungs, denies SOB/CP. Patient voiding in bathroomw ithout difficulty. Eliquis DVT prophylaxis. Patient this AManxious to be discharged home, stating I have walked out before and I will again , patient encouraged to wait for BIDS consult. Awaiting BIDs consult for discharge. Provider aware. Plan of acre ongoing. . * Leny Rg RN: PERFORM, MODIFY, MODIFY, SIGN, VERIFY Event Display: Progress Note Hospital Authored Date: [id number] Patient: EMILY FOLEY Age: 52 years Sex: Female : 1970 Associated Diagnoses: None Author: Leny Rg RN Findings Problem Related to Alteration in Comfort : Alteration in Comfort/new 10/28/2023 21:00 EST Alteration in Comfort Related to Disease process, Other: Small bowel obstruction and hernia repair 1 week ago Goals & Outcomes: Comfort Pt will report acceptable level of comfort & pain control, Pt will state importance of adhering to pain strategy regime, Pt will demonstrate necessary skills to manage pain, Non-verbal indicators will indicate comfort/pain control Interventions Implemented: Comfort Assess pain using appropriate pain scale/tools, Assess aggravating factors & prevent them accordingly, Assess alleviating factors & promote them accordingly Goals/Interventions, Comfort Yes Comfort, Problem Start 10/28/2023 23:52 Reviewed plan with, Comfort Patient Patient Progression, Comfort Plan Initiation Comfort, Problem Ongoing Yes . Alteration in Endocrine : Alteration in Endocrine Function/new 10/28/2023 21:00 EST Alteration in Endocrine Related to Diabetes Goals & Outcomes, Endocrine Pt will be maintained on sc insulin & appropriate diet, Pt willbe rehydrated, Pt will resume regular activities, Pt's blood glucose levels will be within MD parameters Interventions, Endocrine Assess & monitor for insulin effects; hypoglycemia, Assess dietary intake before onset of DKA, Assess for hyper/hypokalemia; monitor ECG for changes, Collaborate w/provider re: insulin dosage adjustments, Identify psychosocial issues related to diabetes Goals/Interventions, Endocrine Yes Endocrine, Problem Start 10/28/2023 23:53 Reviewed Plan with, Endocrine Patient Patient Progression, Endocrine Plan Initiation . Alteration in Gastrointestinal : Alteration in Gastrointestinal Func/new 10/28/2023 21:00 EST Alteration in GI status Related to Abdominal Surgery, Other: Small bowel obstruction and hernia repair 1 week ago Goals & Outcomes, Gastrointestinal Establish a regular pattern of elimination for pt, Nutritional intake is adequate for metabolic needs, Pt will achieve normal/improved fluid balance, Pt will have a bowel movement prior to discharge, Pt will maintain adequate GI function appropriate for pt, Ptwill maintain normal elimination patterns, Pt will resume/maintain adequate hemodynamic status, Pt w ill tolerate age appropriate diet prior to discharge Interventions, Gastrointestinal Assess/monitor abdomen for distention, tenderness, Assess/monitor abdominal girth & bowel function, Assess/monitor bowel pattern, bowel sounds, flatus, Assess/monitor number of bowel movements, Assess/monitor color, quantity, quality, consistency of stoo, Assess/monitor pt for nausea, vomiting, Assess/monitor effects of re-hydration, Assess/monitor intake &output, Assess if pt tolerating diet Goals/Interventions, Gastrointestinal Yes Gastrointestinal, Problem Start 10/28/2023 9:10 Reviewed plan with, Gastrointestinal Patient Patient Progression, Gastrointestinal Pt progressing according to plan . Nursing Data Vital Signs : VITAL SIGNS SECTION 10/29/2023 3:42 EST Temperature 97.5 DegF Temperature Route Oral Pulse Rate 70 bpm Respiratory Rate 18 br/min Systolic Blood Pressure 161 mm Hg H Diastolic Blood Pressure 81 mm Hg Mean Arterial Pressure 108 mm Hg Pulse Pressure 80 mm Hg Oxygen Saturation 100 % Mode of Delivery (Oxygen) Room air 10/28/2023 23:57 EST Temperature 98.2 DegF Temperature Route Oral Pulse Rate 72 bpm Respiratory Rate 18 br/min Systolic Blood Pressure 155 mm Hg H Diastolic Blood Pressure 85 mm Hg H Mean Arterial Pressure 108 mm Hg Pulse Pressure 70 mm Hg Oxygen Saturation 100 % Mode of Delivery (Oxygen) Room air 10/28/2023 19:03 EST Temperature 97.9 DegF Temperature Route Oral Pulse Rate 69 bpm Respiratory Rate 18 br/min Systolic Blood Pressure 152 mm Hg H Diastolic Blood Pressure 81 mm Hg Mean Arterial Pressure 105 mm Hg Pulse Pressure 71 mm Hg Oxygen Saturation 100 % Mode of Delivery (Oxygen) Room air . Narrative/Incidental Pt reported rash? and external and intransal itching and soreness that began prior to admission that she has been scratching. Offered benadryl; refused. Requested something topical for relief. Covering paged; calamine lotion ordered BID PRN. . Evaluation Pt admitted for abdominal pain, N/V/D and possible infection to surgical site; hx of SBO s/p exp lap with repair of abdominal wall defect 10/06. On cefazolin Q8H. Midline incision with DSD; changed earlier on and reinforced with tape this shift 10/28. [place] were removed on this admission. Has abdominal wall fluid collection; no drainage planned at this time. 7-06/20 pain; kumar tylenol 975mg Q6H and oxycodone 5mg PRN Q6H. Pt was also hyperglycemic on admission. Initial POC >500 and lab value of 475; DKA. Pt is A&Ox4. No c/o CP or SOB. Hx of DM; POC ACHS. Bedtime POC of 266. Diabetic diet. Last BM 10/28. Voiding in BR; OOB with walker x1 assist. A little unsteady on return to bed. On eliquis. Cboots refused; educated on foot pumps. Pt also has a R wrist brace; states it is for tendonitis. . Consult note * Fina Crawford MD: PERFORM Event Display: Consultation Note Authored Date: [id number] Patient: ??EMILY FOLEY ? Age:??52 Years?Sex:??Female?:??1970?? Provider Clinical Summary Consult type: BIDS Reason for consultation:??Type 2 diabetes mellitus Requesting provider: Earl Gonzalez MD History of Present Illness 52-year-old female with past medical history of type 2 diabetes mellitus, hypertension, CAD, bipolar disorder, DVT on Eliquis, recent admission for SBO s/p expiratory laparotomy with repair of abdominal wall defect on 10/06 readmitted to the hospital for surgical site infection. [facility] has been consulted??for assistance with management of patient's type 2 diabetes mellitus whilein the hospital. ?? Patient was taking??Lantus 25 units??daily,??NovoLog per sliding scale, metformin thousand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
--- OUTSIDE RECORDS SUMMARY | 2024-05-28 13:54 | XMS_ITS | Continuity of Care Document ---
Author Organization [facility] Address [address] [facility], [address] Floor, [address] [place] [address]- Care Team Providers Care Broomcorn Sorter Name Role Phone Ken VILLELA, Tyesha Primary Care Physician [phone] Encounter [facility] Date(s): 07/03/23 - 08/02/23 [facility] [address], [address] Floor, [address] [place] [id number] Allergies, Adverse Reactions, Alerts Substance Reaction Severity Status lithium Active lisinopril Active Tomatoes hives Active Risperdal Active Depakote Active Cats Active Dogs Active Other Food Allergy 1, 2 Acti ve Contrast Dye Active Pollen Active ZyPREXA Active SEROquel Active FLUoxetine HCl [...] 10:48:25 EST Start Date: 07/29/19 Status: Ordered [place] Thyroid 60 mg oral tablet 60 [...] Confirmed Active Encounter for screening colonoscopy for fsb-ghor-ltwl patient Confirmed Active Encounter for screening colonoscopy [...] 4-Mild concentric LVH. ECHO 02-08-12 5MRI 08-20-15 ([facility]-scanned): disc desiccatios, disc bulges and mild face [...] wrist cutting 9-See MRI done at [facility] 12-09-2015 10-T4-T8 disc bulging with mild left neural foraminal narrowing. MRI 01-29-16 (scanned-done at [facility]) 11-by ex partner, (father of children) Social History Social History Type Response Smoking Status 5-9 cigarettes (betw een 1/4 to 1/2 pack)/day in last 30 days entered on: 02/03/22 Sex Patient Care team information Care Team Personnel Name: Yana Rogers RN Position: [facility] ED RN W/OE and Tasks Member Role: Primary Care Nurse Name: Kinjal Vivar RN Position: [facility] RN Member Role: Primary Care Nurse Name: Augusta Cespedes RN Position: [facility] RN Member Role: Primary Care Nurse Name: Dedra Syed RN Position: [facility] RN Member Role: Primary Care Nurse Name: Kyra Lockhart RN Position: [facility] RN Member Role: Primary Care Nurse Name: Jill Allen RN Position: [facility] RN Member Role: Primary Care Nurse Name: Donna Beltre RN Position: [facility] RN Member Role: Primary Care Nurse Name: Carmita Canas RN Position: [facility] Rad RN Member Role: Primary Care Nurse Name: Jolene Bruner RN Position: [facility] RN Member Role: Primary Care Nurse Name: Melissa Urias RN Position: [facility] RN Member Role: Primary Care Nurse Name: Argenis Scruggs RN Position: [facility] ED RN W/OE and Tasks Member Role: Primary Care Nurse Name: Ada Harris RN Position: [facility] RN Member Role: Primary Care Nurse Name: Radha Montes De Oca RN Position: [facility] RN Member Role: Primary Care Nurse Name: Mira Rajan RN Position: [facility] SN RN Member Role: Primary Care Nurse Name: Anita De Jesus RN Position: [facility] ED RN W/OE and Tasks Member Role: Primary Care Nurse Name: Suzi Cowan RN Position: [facility] RN Member Role: Primary Care Nurse Name: Rebeka Ontiveros RN Position: [facility] RN Member Role: Primary Care Nurse Name: Jeremiah Al RN Position: [facility] SN RN Member Role: Primary Care Nurse Name: Regine Guerin RN Position: [facility] RN Member Role: Primary Care Nurse Name: Jocelyn Cristobla RN Position: [facility] SN RN Member Role: Primary Care Nurse Name: Apolonia Easton RN Position: [facility] RN Supsingh Member Role: Primary Care Nurse Name: Estefania Bhatti RN Position: [facility] RN Member Role: Primary Care Nurse Name: Eulogio Enciso RN Position: [facility] RN Member Role: Primary Care Nurse Name: Kamala Abdi RN Position: [facility] RN Member Role: Primary Care Nurse Name: Aquilino Sarah RN Position: [facility] SN RN Member Role: Primary Care Nurse Name: Stephanie Milian RN Position: [facility] SN RN Member Role: Primary Care Nurse Name: Concepcion Mondragon RN Position: [facility] RN Member Role: Primary Care Nurse Name: Marcia Kuhn RN Position: [facility] RN Member Role: Primary Care Nurse Name: Adrián Wilcox RN Position: [facility] RN Member Role: Primary Care Nurse Name: Ada Aleman RN Position: [facility] ED RN W/OE and Tasks Member Role: Primary Care Nurse Name: Sharlene Macias Position: [facility] Outreach Member Role: Lifetime Consulting Physician Name: Tyesha Rogers MD Position: [facility] Outreach Member Role: PCP Address: Address: [address] [place] [address]- Name: La Miranda RN Position: [facility] [employer] [facility] Member Role: Primary Care Nurse Name: Sunita Anthony RN Position: [facility] RN Member Role: Primary Care Nurse Name: Glendy Gandara RN Position: [facility] SN RN Member Role: Primary Care Nurse Name: Melanie Martinez RN Position: [facility] Onco RN Member Role: Primary Care Nurse Name: Rima Soliz RN Position: [facility] Member Role: Primary Care Nurse Name: Benjamin Cheatham MD Position: [facility] Physician - Behavioral Health Member Role: Lifetime Consulting Physician Address: Address: [address] [place] [phone]- [place] Care Team Related Persons Name: JOSE ROBLEDO Address: home [address] [place] [address] Name: YOHANA FOLEY Address: [place] [address]
--- OUTSIDE RECORDS SUMMARY | 2024-05-28 13:54 | XMS_ITS | Continuity of Care Document ---
Author Organization [facility] Address [address] [place] [address]- Care Team Providers Care Jowl Trimmer Name Role Phone Ken VILLELA, Tyesha Primary Care Physician [phone] Encounter [facility] Date(s): 08/11/23 - 10/08/23 [facility] [address] [place] [id number] Attending Physician: Tyesha Rogers MD Admitting Physician: Tyesha Rogers MD Referring Physician: Tyesha Rogers MD Allergies, [...] 10:48:25 EST Start Date: 07/29/19 Status: Ordered [place] Thyroid 60 mg oral tablet 60 mg, [...] Confirmed Active Encounter for screening colonoscopy for wwe-drbe-myzm patient Confirmed Active Encounter for screening colonoscopy [...] 4-Mild concentric LVH. ECHO 02-08-12 5MRI 08-20-15 ([facility]-scanned): disc desiccatios, disc bulges and mild [...] 01/14, wrist cutting 9-See MRI done at [facility] 12-09-2015 10-T4-T8 disc bulging with mild left neural foraminal narrowing. MRI 01-29-16 (scanned-done at [facility]) 11-by ex partner, (father of children) Social History Social History Type Response Smoking Status 5-9 cigarettes (betw een 1/4 to 1/2 pack)/day in last 30 days entered on: 02/03/22 Sex Patient Care team information Care Team Personnel Name: Yana Rogers RN Position: [facility] ED RN W/OE and Tasks Member Role: Primary Care Nurse Name: Kinjal Vivar RN Position: [facility] RN Member Role: Primary Care Nurse Name: Augusta Cespedes RN Position: [facility] RN Member Role: Primary Care Nurse Name: Dedra Syed RN Position: [facility] RN Member Role: Primary Care Nurse Name: Kyra Lockhart RN Position: [facility] RN Member Role: Primary Care Nurse Name: Jill Allen RN Position: [facility] RN Member Role: Primary Care Nurse Name: Donna Beltre RN Position: [facility] RN Member Role: Primary Care Nurse Name: Carmita Canas RN Position: [facility] Rad RN Member Role: Primary Care Nurse Name: Jolene Bruner RN Position: [facility] RN Member Role: Primary Care Nurse Name: Melissa Urias RN Position: [facility] RN Member Role: Primary Care Nurse Name: Argenis Scruggs RN Position: [facility] ED RN W/OE and Tasks Member Role: Primary Care Nurse Name: Ada Harris RN Position: [facility] RN Member Role: Primary Care Nurse Name: Rdaha Montes De Oca RN Position: [facility] RN Member Role: Primary Care Nurse Name: Radha Dick LPN Position: [facility] RN Member Role: Primary Care Nurse Name: Mira Rajan RN Position: [facility] SN RN Member Role: Primary Care Nurse Name: Leny Rg RN Position: [facility] RN Member Role: Primary Care Nurse Name: Merly Shin RN Position: [facility] RN Member Role: Primary Care Nurse Name: Anita De Jesus RN Position: [facility] ED RN W/OE and Tasks Member Role: Primary Care Nurse Name: Suzi Cowan RN Position: [facility] RN Member Role: Primary Care Nurse Name: Rebeka Ontiveros RN Position: [facility] RN Member Role: Primary Care Nurse Name: Jeremiah Al RN Position: [facility] SN RN Member Role: Primary Care Nurse Name: Regine Guerin RN Position: [facility] RN Member Role: Primary Care Nurse Name: Jocelyn Cristobal RN Position: [facility] SN RN Member Role: Primary Care Nurse Name: Apolonia Easton RN Position: [facility] RN Supv Member Role: Primary Care Nurse Name: Eulogio Enciso RN Position: [facility] RN Member Role: Primary Care Nurse Name: Kamala Abdi RN Position: [facility] RN Member Role: Primary Care Nurse Name: Aquilino Sarah RN Position: [facility] ED RN W/OE and Tasks Member Role: Primary Care Nurse Name: Stephanie Milian RN Position: [facility] SN RN Member Role: Primary Care Nurse Name: Concepcion Mondragon RN Position: [facility] RN Member Role: Primary Care Nurse Name: Nell Stephenson Position: [facility] RN Member Role: Primary Care Nurse Name: Marcia Kuhn RN Position: [facility] RN Member Role: Primary Care Nurse Name: Bradford Shah RN Position: [facility] RN Member Role: Primary Care Nurse Name: Adrián Wilcox RN Position: [facility] RN Member Role: Primary Care Nurse Name: Ada Aleman RN Position: [facility] ED RN W/OE and Tasks Member Role: Primary Care Nurse Name: Sharlene Macias Position: [facility] Outreach Member Role: Lifetime Consulting Physician Name: Tyesha Rogers MD Position: [facility] Outreach Member Role: PCP Address: Address: [address] [place] [address]- Name: La Miranda RN Position: [facility] Dairy Cattle Farmer Member Role: Primary Care Nurse Name: Sunita Anthony RN Position: [facility] RN Member Role: Primary Care Nurse Name: Glendy Gandara RN Position: [facility] SN RN Member Role: Primary Care Nurse Name: Melanie Martinez RN Position: [facility] Onco RN Member Role: Primary Care Nurse Name: Rima Soliz RN Position: [facility] Dairy Cattle Farmer Member Role: Primary Care Nurse Name: Benjamin Cheatham MD Position: [facility] Physician - Behavioral Health Member Role: Lifetime Consulting Physician Address: Address: [address] [place] [address]- [place] Care Team Related Persons Name: JOSE ROBLEDO Address: home [address] [place] [address] Name: YOHANA FOLEY Address: [place] [address]
--- OUTSIDE RECORDS SUMMARY | 2024-05-28 13:55 | XMS_ITS | Continuity of Care Document ---
Author Organization [facility] Address [address] [place] [address]- Care Team Providers Care Clinical Laboratory Service Teacher Name Role Phone Ken VILLELA, Tyesha Primary Care Physician Encounter [facility] Date(s): 06/23/23 - 07/23/23 [facility] [address]- Attending Physician: Marj Henderson MD Allergies, Adverse Reactions, Alerts Substance Reaction [...] EST Start Date: 07/29/19 Status: Ordered [place] Thyroid 60 mg oral tablet 60 mg, [...] Confirmed Active Encounter for screening colonoscopy for zfy-yahj-ayna patient Confirmed Active Encounter for screening colonoscopy [...] Team Personnel Name: Yana Rogers RN Position: [facility] ED RN W/OE and Tasks Member Role: Primary Care Nurse Name: Kinjal Vivar RN Position: [facility] RN Member Role: Primary Care Nurse Name: Augusta Cespedes RN Position: [facility] RN Member Role: Primary Care Nurse Name: Dedra Syed RN Position: [facility] RN Member Role: Primary Care Nurse Name: Kyra Lockhart RN Position: [facility] RN Member Role: Primary Care Nurse Name: Jill Allen RN Position: [facility] RN Member Role: Primary Care Nurse Name: Donna Beltre RN Position: [facility] RN Member Role: Primary Care Nurse Name: Carmita Canas RN Position: [facility] Rad RN Member Role: Primary Care Nurse Name: Jolene Bruner RN Position: [facility] RN Member Role: Primary Care Nurse Name: Melissa Urias RN Position: [facility] RN Member Role: Primary Care Nurse Name: Argenis Scruggs RN Position: [facility] ED RN W/OE and Tasks Member Role: Primary Care Nurse Name: Ada Harris RN Position: [facility] RN Member Role: Primary Care Nurse Name: Radha Montes De Oca RN Position: [facility] RN Member Role: Primary Care Nurse Name: Mira Rajan RN Position: [facility] SN RN Member Role: Primary Care Nurse Name: Anita De Jesus RN Position: [facility] ED RN W/OE and Tasks Member Role: Primary Care Nurse Name: Suzi Cowan RN Position: [facility] RN Member Role: Primary Care Nurse Name: Rebeka Ontiveros RN Position: [facility] RN Member Role: Primary Care Nurse Name: Jeremiah Al RN Position: [facility] SN RN Member Role: Primary Care Nurse Name: Regine Guerin RN Position: [facility] RN Member Role: Primary Care Nurse Name: Jocelyn Cristobal RN Position: [facility] SN RN Member Role: Primary Care Nurse Name: Apolonia Easton RN Position: [facility] RN Supv Member Role: Primary Care Nurse Name: Estefania Bhatti RN Position: [facility] RN Member Role: Primary Care Nurse Name: Eulogio Enciso RN Position: [facility] RN Member Role: Primary Care Nurse Name: Kamala Abdi RN Position: [facility] RN Member Role: Primary Care Nurse Name: Aquilino Sarah RN Position: [facility] SN RN Member Role: Primary Care Nurse Name: Stephanie Milian RN Position: [facility] SN RN Member Role: Primary Care Nurse Name: Concepcion Mondragon RN Position: [facility] RN Member Role: Primary Care Nurse Name: Marcia Kuhn RN Position: [facility] RN Member Role: Primary Care Nurse Name: Adrián Wilcox RN Position: [facility] RN Member Role: Primary Care Nurse Name: Ada Aleman RN Position: [facility] ED RN W/OE and Tasks Member Role: Primary Care Nurse Name: Sharlene Macias Position: [facility] Outreach Member Role: Lifetime Consulting Physician Name: Tyesha Rogers MD Position: [facility] Outreach Member Role: PCP Address: Address: [address] [place] [address]- Name: La Miranda RN Position: [facility] Maintainer Operator Member Role: Primary Care Nurse Name: Sunita Anthony RN Position: [facility] RN Member Role: Primary Care Nurse Name: Glendy Gandara RN Position: [facility] SN RN Member Role: Primary Care Nurse Name: Melanie Martinez RN Position: [facility] Onco RN Member Role: Primary Care Nurse Name: Rima Soliz RN Position: [facility] Maintainer Operator Member Role: Primary Care Nurse Name: Benjamin Cheatham MD Position: [facility] Physician - [facility] Member Role: Lifetime Consulting Physician Address: Address: [address] [place] [address]- [place] Care Team Related Persons Name: JOSE ROBLEDO Address: home [address] [place] [address] Name: YOHANA FOLEY Address: [place] [address]
--- OUTSIDE RECORDS SUMMARY | 2024-05-28 13:55 | XMS_ITS | Continuity of Care Document ---
Author Organization [facility] Address [address] [place] [id number]- Care Team Providers Care Structural Engineering Project Manager Name Role Phone Ken VILLELA, Tyesha Primary Care Physician [phone] Encounter [facility] Date(s): 11/06/23 - 02/01/24 [facility] [address] [place] [address]- Attending Physician: Mike JERONIMO, Adrián Gates Admitting Physician: Mike JERONIMO, Adrián Gates Referring Physician: Tyesha Rogers MD Allergies, Adverse Reactions, Alerts Substance Reaction Severity Status lithium Active lisinopril Active Depakote Active Cats Active Contrast Dye Active Dogs Active Pollen Active Tomatoes hives Active ZyPREXA Active SEROquel Active FLUoxetine HCl Fluoxetine Active Other Food Allergy 1, 2, 3 A ctive Risperdal Active 1Asparagus 2broccoli and green beans 3green [...] 10:48:25 EST Start Date: 07/29/19 Status: Ordered [place] Thyroid 60 mg oral tablet 60 mg, [...] 0 Refills, Maintenance, 10/29/23 12:25:00 EST, Injection, [facility] 3, Partial fill upon patient request if [...] Confirmed Active Encounter for screening colonoscopy for [id number] patient Confirmed Active Encounter for screening colonoscopy [...] 01/14, wrist cutting 9-See MRI done at [facility] 12-09-2015 10-T4-T8 disc bulging with mild left neural foraminal narrowing. MRI 01-29-16 (scanned-done at [facility]) 11-by ex partner, (father of children) Social History Social History Type Response Smoking Status 5-9 cigarettes (betw een 1/4 to 1/2 pack)/day in last 30 days entered on: 02/03/22 Sex Patient Care team information Care Team Personnel Name: Yana Rogers RN Position: [facility] ED RN W/OE and Tasks Member Role: Primary Care Nurse Name: Kinjal Vivar RN Position: [facility] RN Member Role: Primary Care Nurse Name: Augusta Cespedes RN Position: [facility] RN Member Role: Primary Care Nurse Name: Dedra Syed RN Position: [facility] RN Member Role: Primary Care Nurse Name: Kyra Lockhart RN Position: [facility] RN Member Role: Primary Care Nurse Name: Jill Allen RN Position: [facility] RN Member Role: Primary Care Nurse Name: Donna Beltre RN Position: [facility] RN Member Role: Primary Care Nurse Name: Carmita Canas RN Position: [facility] Rad RN Member Role: Primary Care Nurse Name: Jolene Bruner RN Position: [facility] RN Member Role: Primary Care Nurse Name: Melissa Urias RN Position: [facility] RN Member Role: Primary Care Nurse Name: Mira Prieto RN Position: [facility] RN Member Role: Primary Care Nurse Name: Argenis Scruggs RN Position: [facility] ED RN W/OE and Tasks Member Role: Primary Care Nurse Name: Ada Harris RN Position: S RN Member Role: Primary Care Nurse Name: Mira Rajan RN Position: [facility] RN Member Role: Primary Care Nurse Name: Leny Rg RN Position: [facility] RN Member Role: Primary Care Nurse Name: Nola Bowman RN Position: [facility] SN RN Member Role: Primary Care Nurse Name: Merly Shin RN Position: [facility] RN Member Role: Primary Care Nurse Name: Anita De Jesus RN Position: [facility] ED RN W/OE and Tasks Member Role: Primary Care Nurse Name: Suzi Cowan RN Position: [facility] RN Member Role: Primary Care Nurse Name: Rebeka Ontiveros RN Position: [facility] RN Member Role: Primary Care Nurse Name: Jeremiah Al RN Position: [facility] SN RN Member Role: Primary Care Nurse Name: Konstantin Whittaker RN Position: [facility] RN Member Role: Primary Care Nurse Name: Regine Guerin RN Position: [facility] RN Member Role: Primary Care Nurse Name: Jocelyn Cristobal RN Position: [facility] SN RN Member Role: Primary Care Nurse Name: Apolonia Easton RN Position: [facility] RN Supv Member Role: Primary Care Nurse Name: Eulogio Enciso RN Position: [facility] RN Member Role: Primary Care Nurse Name: Kamala Abdi RN Position: [facility] RN Member Role: Primary Care Nurse Name: Aquilino Sarah RN Position: [facility] ED RN W/OE and Tasks Member Role: Primary Care Nurse Name: Stephanie Milian RN Position: [facility] AMB Nurse Member Role: Primary Care Nurse Name: Concepcion Mondragon RN Position: [facility] RN Member Role: Primary Care Nurse Name: Nell Stephenson Position: [facility] RN Member Role: Primary Care Nurse Name: Marcia Kuhn RN Position: [facility] RN Member Role: Primary Care Nurse Name: Bradford Shah RN Position: [facility] RN Member Role: Primary Care Nurse Name: Adrián Wilcox RN Position: [facility] RN Member Role: Primary Care Nurse Name: Olvin Fontanez Position: [facility] RN Member Role: Primary Care Nurse Name: Ada Aleman RN Position: [facility] ED RN W/OE and Tasks Member Role: Primary Care Nurse Name: Sharlene Macias Position: [facility] Outreach Member Role: Lifetime Consulting Physician Name: Tyesha Rogers MD Position: [facility] Outreach Member Role: PCP Address: Address: [address] [place] [id number] Name: La Miranda RN Position: [facility] Hospital Diver Helper Member Role: Primary Care Nurse Name: Sunita Anthony RN Position: [facility] RN Member Role: Primary Care Nurse Name: Glendy Gandara RN Position: [facility] SN RN Member Role: Primary Care Nurse Name: Michelle KAN, Melanie Rooney Position: [facility] Onco RN Member Role: Primary Care Nurse Name: Rima Soliz RN Position: [facility] Hospital Diver Helper Member Role: Primary Care Nurse Name: Benjamin Cheatham MD Position: [facility] Physician - Behavioral Health Member Role: Lifetime Consulting Physician Address: Address: [address] [place] [address]- [place] Care Team Related Persons Name: JOSE ROBLEDO Address: home [address] [place] [id number] Name: YOHANA FOLEY Address: [place] [address]
--- OUTSIDE RECORDS SUMMARY | 2024-05-28 13:55 | XMS_ITS | Continuity of Care Document ---
Author Organization [facility] ter Address [address] [place] [address]- Care Team Providers Care Automotive Brake Adjuster Name Role Phone Ken VILLELA, Tyesha Primary Care Physician Encounter [facility] Date(s): 07/06/23 - 09/22/23 [facility] [address] [place] [id number] Attending Physician: Jerry Winkler MD Admitting Physician: Jerry Winkler MD Referring Physician: Jerry Winkler MD Allergies, Adverse Reactions, Alerts Substance Reaction [...] 10:48:25 EST Start Date: 07/29/19 Status: Ordered [place] Thyroid 60 mg oral tablet 60 mg, [...] Confirmed Active Encounter for screening colonoscopy for [id number] patient Confirmed Active Encounter for screening colonoscopy [...] 4-Mild concentric LVH. ECHO 02-08-12 5MRI 08-20-15 ([facility]-scanned): disc desiccatios, disc bulges and [...] 01/14, wrist cutting 9-See MRI done at [facility] 12-09-2015 10-T4-T8 disc bulging with mild left neural foraminal narrowing. MRI 01-29-16 (scanned-done at [facility]) 11-by ex partner, (father of children) Social History Social History Type Response Smoking Status 5-9 cigarettes (betw een 1/4 to 1/2 pack)/day in last 30 days entered on: 02/03/22 Sex Patient Care team information Care Team Personnel Name: Yana Rogers RN Position: [facility] ED RN W/OE and Tasks Member Role: Primary Care Nurse Name: Kinjal Vivar RN Position: [facility] RN Member Role: Primary Care Nurse Name: Augusta Cespedes RN Position: [facility] RN Member Role: Primary Care Nurse Name: Dedra Syed RN Position: [facility] RN Member Role: Primary Care Nurse Name: Kyra Lockhart RN Position: [facility] RN Member Role: Primary Care Nurse Name: Jill Allen RN Position: [facility] RN Member Role: Primary Care Nurse Name: Donna Beltre RN Position: [facility] RN Member Role: Primary Care Nurse Name: Carmita Canas RN Position: [facility] Rad RN Member Role: Primary Care Nurse Name: Jolene Bruner RN Position: [facility] RN Member Role: Primary Care Nurse Name: Melissa Urias RN Position: [facility] RN Member Role: Primary Care Nurse Name: Argenis Scruggs RN Position: [facility] ED RN W/OE and Tasks Member Role: Primary Care Nurse Name: Ada Harris RN Position: [facility] RN Member Role: Primary Care Nurse Name: Radha Montes De Oca RN Position: [facility] RN Member Role: Primary Care Nurse Name: Mira Rajan RN Position: [facility] SN RN Member Role: Primary Care Nurse Name: Anita De Jesus RN Position: [facility] ED RN W/OE and Tasks Member Role: Primary Care Nurse Name: Suzi Cowan RN Position: [facility] RN Member Role: Primary Care Nurse Name: Rebeka Ontiveros RN Position: [facility] RN Member Role: Primary Care Nurse Name: Jeremiah Al RN Position: [facility] SN RN Member Role: Primary Care Nurse Name: Regine Guerin RN Position: [facility] RN Member Role: Primary Care Nurse Name: Jocelyn Cristobal RN Position: [facility] SN RN Member Role: Primary Care Nurse Name: Apolonia Easton RN Position: [facility] RN Supv Member Role: Primary Care Nurse Name: Eulogio Enciso RN Position: [facility] RN Member Role: Primary Care Nurse Name: Kamala Abdi RN Position: [facility] RN Member Role: Primary Care Nurse Name: Aquilino Sarah RN Position: [facility] SN RN Member Role: Primary Care Nurse Name: Stephanie Milian RN Position: [facility] SN RN Member Role: Primary Care Nurse Name: Concepcion Mondragon RN Position: [facility] RN Member Role: Primary Care Nurse Name: Marcia Kuhn RN Position: [facility] RN Member Role: Primary Care Nurse Name: Adrián Wilcox RN Position: [facility] RN Member Role: Primary Care Nurse Name: Ada Aleman RN Position: [facility] ED RN W/OE and Tasks Member Role: Primary Care Nurse Name: Sharlene Macias Position: [facility] Outreach Member Role: Lifetime Consulting Physician Name: Tyesha Rogers MD Position: [facility] Outreach Member Role: PCP Address: Address: [address] [place] [address]- Name: La Miranda RN Position: [facility] Airline Station Agent Member Role: Primary Care Nurse Name: Sunita Anthony RN Position: [facility] RN Member Role: Primary Care Nurse Name: Glendy Gandara RN Position: [facility] SN RN Member Role: Primary Care Nurse Name: Melanie Martinez RN Position: [facility] Onco RN Member Role: Primary Care Nurse Name: Rima Soliz RN Position: [facility] Airline Station Agent Member Role: Primary Care Nurse Name: Benjamin Cheatham MD Position: [facility] Physician - [facility] Health Member Role: Lifetime Consulting Physician Address: Address: [address] [place] [address]- [place] Care Team Related Persons Name: JOSE ROBLEDO Address: home [address] [place] [address] Name: YOHANA FOLEY Address: [place] [address]
--- OUTSIDE RECORDS SUMMARY | 2024-05-28 13:55 | XMS_ITS | Continuity of Care Document ---
Author Organization [facility] Address [address] [place] [address] [address] [place] [address]- Care Team Providers Care Certified Rehabilitation Counselor Name Role Phone Ken VILLELA, Tyesha Primary Care Physician Encounter [facility] Date(s): 10/26/23 - 11/25/23 [facility] [address] [place] [address]- Attending Physician: Haley Lorenzo Admitting Physician: AdmtrHaley [...] 10:48:25 EST Start Date: 07/29/19 Status: Ordered [place] Thyroid 60 mg oral tablet 60 mg, [...] 0 Refills, Maintenance, 10/29/23 12:25:00 EST, Injection, [facility] 3, Partial fill upon patient [...] Confirmed Active Encounter for screening colonoscopy for [id number] patient Confirmed Active Encounter for screening colonoscopy [...] cutting 9-See MRI done at [facility] 12-09-2015 10-T4-T8 disc bulging with mild left neural foraminal narrowing. MRI 01-29-16 (scanned-done at [facility]) 11-by ex partner, (father of children) Social History Social History Type Response Smoking Status 5-9 cigarettes (betw een 1/4 to 1/2 pack)/day in last 30 days entered on: 02/03/22 Sex Patient Care team information Care Team Personnel Name: Yana Rogers RN Position: [facility] ED RN W/OE and Tasks Member Role: Primary Care Nurse Name: Kinjal Vivar RN Position: [facility] RN Member Role: Primary Care Nurse Name: Augusta Cespedes RN Position: [facility] RN Member Role: Primary Care Nurse Name: Dedra Syed RN Position: [facility] RN Member Role: Primary Care Nurse Name: Kyra Lockhart RN Position: [facility] RN Member Role: Primary Care Nurse Name: Jill Allen RN Position: [facility] RN Member Role: Primary Care Nurse Name: Donna Beltre RN Position: [facility] RN Member Role: Primary Care Nurse Name: Carmita Canas RN Position: [facility] Rad RN Member Role: Primary Care Nurse Name: Jolene Bruner RN Position: [facility] RN Member Role: Primary Care Nurse Name: Melissa Urias RN Position: [facility] RN Member Role: Primary Care Nurse Name: Mira Prieto RN Position: [facility] RN Member Role: Primary Care Nurse Name: Argenis Scruggs RN Position: [facility] ED RN W/OE and Tasks Member Role: Primary Care Nurse Name: Ada Harris RN Position: [facility] RN Member Role: Primary Care Nurse Name: Radha Dick LPN Position: [facility] RN Member Role: Primary Care Nurse Name: Mira Rajan RN Position: [facility] SN RN Member Role: Primary Care Nurse Name: Leny Rg RN Position: [facility] RN Member Role: Primary Care Nurse Name: Merly Shin RN Position: [facility] RN Member Role: Primary Care Nurse Name: Anita De Jesus RN Position: [facility] ED RN W/OE and Tasks Member Role: Primary Care Nurse Name: Suzi Cowan RN Position: [facility] RN Member Role: Primary Care Nurse Name: Rebeka Ontiveros RN Position: [facility] RN Member Role: Primary Care Nurse Name: Jeremiah Al RN Position: [facility] SN RN Member Role: Primary Care Nurse Name: Konstantin Whittaker RN Position: [facility] RN Member Role: Primary Care Nurse Name: Regine Guerin RN Position: [facility] RN Member Role: Primary Care Nurse Name: Jocelyn Cristobal RN Position: [facility] SN RN Member Role: Primary Care Nurse Name: Apolonia Easton RN Position: [facility] RN Supv Member Role: Primary Care Nurse Name: Eulogio Enciso RN Position: [facility] RN Member Role: Primary Care Nurse Name: Kamala Abdi RN Position: [facility] RN Member Role: Primary Care Nurse Name: Aquilino Sarah RN Position: [facility] ED RN W/OE and Tasks Member Role: Primary Care Nurse Name: Stephanie Milian RN Position: [facility] SN RN Member Role: Primary Care Nurse Name: Concepcion Mondragon RN Position: [facility] RN Member Role: Primary Care Nurse Name: Nell Stephenson Position: [facility] RN Member Role: Primary Care Nurse Name: Marcia Kuhn RN Position: [facility] RN Member Role: Primary Care Nurse Name: Bradford Shah RN Position: [facility] RN Member Role: Primary Care Nurse Name: Adrián Wilcox RN Position: [facility] RN Member Role: Primary Care Nurse Name: Olvin Fontanez Position: [facility] RN Member Role: Primary Care Nurse Name: Ada Aleman RN Position: [facility] ED RN W/OE and Tasks Member Role: Primary Care Nurse Name: Sharlene Macias Position: [facility] Outreach Member Role: Lifetime Consulting Physician Name: Tyesha Rogers MD Position: [facility] Outreach Member Role: PCP Address: Address: [address] [place] [id number] Name: La Miranda RN Position: [facility] [employer] Wafers Tester Member Role: Primary Care Nurse Name: Sunita Anthony RN Position: [facility] RN Member Role: Primary Care Nurse Name: Glendy Gandara RN Position: [facility] SN RN Member Role: Primary Care Nurse Name: Melanie Martinez RN Position: [facility] Onco RN Member Role: Primary Care Nurse Name: Rima Soliz RN Position: [facility] Hospital [employer] Wafers Tester Member Role: Primary Care Nurse Name: Benjamin Cheatham MD Position: [facility] Physician - Behavioral Health Member Role: Lifetime Consulting Physician Address: Address: [address] [place] [address]- Care Team Related Persons Name: JOSE ROBLEDO Address: home [address] [place] [id number] Name: YOHANA FOLEY Address: [place] [address]
--- OUTSIDE RECORDS SUMMARY | 2024-05-28 13:55 | XMS_ITS | Continuity of Care Document ---
Author Organization [facility] Address [address] [place] [address]- Care Team Providers Care Third Officer Name Role Phone Ken VILLELA, Tyesha Primary Care Physician [place] [facility] [place]23[place]23 - 07/23/23 [facility] [address]- Attending Physician: AdmHaley liriano Admitting Physician: Admtr, [id number] Referring Physician: Admtr, [...] 10:48:25 EST Start Date: 07/29/19 Status: Ordered [place] Thyroid 60 mg oral tablet 60 mg, [...] Confirmed Active Encounter for screening colonoscopy for [id number] patient Confirmed Active Encounter for screening colonoscopy [...] 4-Mild concentric LVH. ECHO 02-08-12 5MRI 08-20-15 ([facility]-scanned): disc desiccatios, disc bulges and mild face [...] 01/14, wrist cutting 9-See MRI done at [facility] 12-09-2015 10-T4-T8 disc bulging with mild left neural foraminal narrowing. MRI 01-29-16 (scanned-done at [facility]) 11-by ex partner, (father of children) Social History Social History Type Response Smoking Status 5-9 cigarettes (betw een 1/4 to 1/2 pack)/day in last 30 days entered on: 02/03/22 Sex Laboratory * Shanae Mccarty MD: REVIEW Event Display: Non BH Lab Results Authored Date: Radiology * Shanae Mccarty MD: REVIEW Event Display: X-Ray Spine, Non- BH Authored Date: * Event Display: Ultrasound Lower Extremity, Non-BH Authored Date: * Shanae Mccarty MD: REVIEW Event Display: MRI Spine, Non- BH Authored Date: * Shanae Mccarty MD: REVIEW Event Display: MRI Spine, Non- BH Authored Date: * Event Display: MRI Head, Non- BH Authored Date: Patient Care team information Care Team Personnel Name: Yana Rogers RN Position: [facility] ED RN W/OE and Tasks Member Role: Primary Care Nurse Name: Kinjal Vivar RN Position: [facility] RN Member Role: Primary Care Nurse Name: Augusta Cespedes RN Position: [facility] RN Member Role: Primary Care Nurse Name: Dedra Syed RN Position: [facility] RN Member Role: Primary Care Nurse Name: Kyra Lockhart RN Position: [facility] RN Member Role: Primary Care Nurse Name: Jill Allen RN Position: [facility] RN Member Role: Primary Care Nurse Name: Donna Beltre RN Position: [facility] RN Member Role: Primary Care Nurse Name: Carmita Canas RN Position: [facility] Rad RN Member Role: Primary Care Nurse Name: Jolene Bruner RN Position: [facility] RN Member Role: Primary Care Nurse Name: Melissa Urias RN Position: [facility] RN Member Role: Primary Care Nurse Name: Argenis Scruggs RN Position: [facility] ED RN W/OE and Tasks Member Role: Primary Care Nurse Name: Ada Harris RN Position: [facility] RN Member Role: Primary Care Nurse Name: Radha Montes De Oca RN Position: [facility] RN Member Role: Primary Care Nurse Name: Mira Rajan RN Position: [facility] SN RN Member Role: Primary Care Nurse Name: Anita De Jesus RN Position: [facility] ED RN W/OE and Tasks Member Role: Primary Care Nurse Name: Suzi Cowan RN Position: [facility] RN Member Role: Primary Care Nurse Name: Rebeka Ontiveros RN Position: [facility] RN Member Role: Primary Care Nurse Name: Jeremiah Al RN Position: [facility] SN RN Member Role: Primary Care Nurse Name: Regine Guerin RN Position: [facility] RN Member Role: Primary Care Nurse Name: Jocelyn Cristobal RN Position: [facility] SN RN Member Role: Primary Care Nurse Name: Apolonia Easton RN Position: [facility] RN Supv Member Role: Primary Care Nurse Name: Estefania Bhatti RN Position: [facility] RN Member Role: Primary Care Nurse Name: Eulogio Enciso RN Position: [facility] RN Member Role: Primary Care Nurse Name: Kamala Abdi RN Position: [facility] RN Member Role: Primary Care Nurse Name: Aquilino Sarah RN Position: [facility] SN RN Member Role: Primary Care Nurse Name: Stephanie Milian RN Position: [facility] SN RN Member Role: Primary Care Nurse Name: Concepcion Mondragon RN Position: [facility] RN Member Role: Primary Care Nurse Name: Marcia Kuhn RN Position: [facility] RN Member Role: Primary Care Nurse Name: Adrián Wilcox RN Position: [facility] RN Member Role: Primary Care Nurse Name: Ada Aleman RN Position: [facility] ED RN W/OE and Tasks Member Role: Primary Care Nurse Name: Sharlene Macias Position: [facility] Outreach Member Role: Lifetime Consulting Physician Name: Tyesha Rogers MD Position: [facility] Outreach Member Role: PCP Address: Address: [address] [place] [address] Name: La Miranda RN Position: [facility] Specialty Sales Consultant Member Role: Primary Care Nurse Name: Sunita Anthony RN Position: [facility] RN Member Role: Primary Care Nurse Name: Glendy Gandara RN Position: [facility] SN RN Member Role: Primary Care Nurse Name: Melanie Martinez RN Position: [facility] Onco RN Member Role: Primary Care Nurse Name: Rima Soliz RN Position: [facility] Specialty Sales Consultant Member Role: Primary Care Nurse Name: Benjamin Cheatham MD Position: [facility] Physician - Behavioral Health Member Role: Lifetime Consulting Physician Address: Address: [address] [place] [address]- Care Team Related Persons Name: MEENA JOSE Address: home [address] [place] [id number] Name: YOHANA FOLEY Address: [place] [address]
--- OUTSIDE RECORDS SUMMARY | 2024-05-28 13:56 | XMS_ITS | Continuity of Care Document ---
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 image image 54), likely reservoir effect following cholecystectomy. ?? Spleen: Normal. ?? Pancreas: Normal. ?? Adrenal glands: Normal. ?? Kidneys and ureters: Ill-defined low-attenuation 1.8 x 1.7 cm left lower pole renal lesion (series 201 image 63), no hydronephrosis or nephrolithiasis. ?? Bladder: Partially distended but otherwise unremarkable.? Reproductive organs: Fibroid uterus. 4 cm simple appearing right ovarian cyst. ?? Stomach, small bowel, and large bowel: Physiologic distention of the stomach. Normal caliber proximal small bowel loops. Distention of the mid small bowel up to 3.1 cm (series 2 image 63), with a fecalized loop in the left lower quadrant measuring up to 3 cm (series 201 image 83), with an abrupt transition to decompressed distal small bowel in the left midabdomen (series 201 image 82, series 202 image 53). Moderate stool burden in the proximal colon and distal colon partially decompressed. No acute inflammatory changes. ?? Appendix: No evidence of acute appendicitis. ?? Peritoneum and retroperitoneum: No ascites or pneumoperitoneum. No omental or mesenteric lesions. ?? Lymph nodes: No enlarged lymph nodes. ?? Blood vessels: Normal. No aneurysm. ?? Abdominal and pelvic wall: Unremarkable. ?? Bones: Mild degenerative changes of the spine. Left-sided L5 pars defect. ?? IMPRESSION:? Fluid-filled distention of small bowel up to 3.1 cm with distal fecalization and an abrupt transition point in the left mid abdomen concerning for early small bowel obstruction, surgical consultationis recommended. ?? 1.8 cm left lower pole renal lesion for which dedicated renal mass protocol CT or MRI is recommended on an outpatient basis. ?? 4 cm simple appearing right ovarian cyst, incompletely characterized on this noncontrast examination. Nonemergent pelvic ultrasound is suggested for further evaluation. ?? The impression above was relayed to Reggie FARR by Dr. Varinder Irwin over the phone on 10/05/2023 at 7:24 PM. ?? WSN: [id number] ? Ordering Physician: Reggie Morrow? Signature Line Dictated By: ?Varinder Irwin MD Dictated Date/Time: ?10/05/23 7:26 pm Reviewed By: ?Varinder Irwin MD Signed By: ? Varinder Irwin MD Signed Date/Time: ? 10/05/23 7:26 pm Transcribed By: ? CSB Transcribed Date/Time: ?10/05/23 7:11 pm ? CT Abd/Pelvis W/ Oral Contrast Only This document has an image Lab Results Labs Last 24 Hours BLOOD COUNT & DIFF ? Event Name?? Event Result?? Date/Time?? WBC 6.7 k/mm3 10/05/23 13:34:00 RBC 5.17 m/mm3 10/05/23 13:34:00 Hgb 14.6 Gm/dL 10/05/23 13:34:00 Hct 42.7 % 10/05/23 13:34:00 MCV 82.6 femtoliters 10/05/23 13:34:00 MCH 28.2 pg 10/05/23 13:34:00 MCHC 34.2 g/dL 10/05/23 13:34:00 Platelet Count 257 k/mm3 10/05/23 13:34:00 MPV 9.6 femtoliters 10/05/23 13:34:00 Nucleated RBC (Automated) 0 #/100 WBC'S 10/05/23 13:34:00 ? CHEM GENERAL ? Event Name?? Event Result?? Date/Time?? Sodium 138 mmol/L 10/05/23 13:35:00 Chloride 104 mmol/L 10/05/23 13:35:00 Bicarbonate Level 23 mmol/L 10/05/23 13:35:00 Anion Gap 11 10/05/23 13:35:00 Glucose Level 239 mg/dL??High 10/05/23 13:35:00 BUN 12 mg/dL 10/05/23 13:35:00 Creatinine-Blood 0.6 mg/dL 10/05/23 13:35:00 Alkaline Phosphatase 94 units/L 10/05/23 13:35:00 Lipase 21 units/L 10/05/23 13:35:00 AST (SGOT) 14 units/L 10/05/23 13:35:00 ALT (SGPT) 26 units/L 10/05/23 13:35:00 Bilirubin, Total 0.3 mg/dL 10/05/23 13:35:00 ? * Yaakov VILLELA, Malvin SRINIVASAN Event Display: History and Physical Hospital Authored Date: I have personally seen and evaluated the patient, lab work and imaging on the day of below/above resident note. ??I agree with the documented resident note and plan for care, as above. ?? Malvin Nuno, ??, MPH, FACS Trauma, General Surgery and Surgical Critical Care EKG study * Event Display: EKG Authored Date: * Event Display: ECG 12-Lead Authored Date: Please click on pdf link to open report * Event Display: ECG 12-Lead Authored Date: Ventricular Rate: 74 BPM Atrial Rate: 74 BPM P-R Interval: 138 ms QRS Duration: 98 ms Q-T Interval: 394 ms QTC Calculation(Bazett): 437 ms P [place]: 3 degrees R [place]: -10 degrees T [place]: 22 degrees Normal sinus rhythm Moderate voltage criteria for LVH, may be normal variant ( R in aVL , [place] product ) Borderline ECG When compared with ECG of 03-JAN-2023 14:33, No significant change was found Confirmed by KAREN VILLAGRAN MD ([id number]) on 10/08/2023 4:36:37 PM Waddy: KAREN VILLAGRAN MD Cardiology * Event Display: Cardiac Rhythm Strips Authored Date: Hospital Progress note * Leny Rg RN: MODIFY, SIGN, MODIFY, SIGN, MODIFY, SIGN, PERFORM, SIGN, VERIFY Event Display: Progress Note Hospital Authored Date: Patient: GREYSON FOLEY Age: 52 years Sex: Female : 1970 Associated Diagnoses: None Author: Leny Rg RN Findings Problem Related to Alteration in Comfort : Alteration in Comfort/new 10/10/2023 22:00 EST Alteration in Comfort Related to Disease process, Surgery, Other: SBO- ex lap 10/06 Goals & Outcomes: Comfort Pt will report acceptable level of comfort & pain control, Pt will state importance of adhering to pain strategy regime, Pt will demonstrate necessary skills to manage pain Interventions Implemented: Comfort Assess pain using appropriate pain scale/tools, Assess aggravating factors & prevent them accordingly, Assess alleviating factors & promote them accordingly Goals/Interventions, Comfort Yes Comfort, Problem Start 10/06/2023 4:38 Reviewed plan with, Comfort Patient Patient Progression, Comfort Pt progressing according to plan Comfort, Problem Ongoing Yes . Alteration in Endocrine : Alteration in Endocrine Function/new 10/10/2023 22:00 EST Alteration in Endocrine Related to Diabetes [...] for changes, Collaborate w/provider re: insulin dosage adjustments Goals/Interventions, Endocrine Yes Endocrine, Problem Start 10/08/2023 21:00 Reviewed Plan with, Endocrine Patient Patient Progression, Endocrine Pt progressing according to plan . Alteration in Gastrointestinal : Alteration in Gastrointestinal Func/new 10/10/2023 22:00 EST Alteration in GI status Related to Abdominal Surgery, Other: SBO--> ex lap 10/06 Goals & Outcomes, Gastrointestinal Establish a regular pattern of elimination for pt, Nutritional intake is adequate for metabolic needs, Pt will achieve normal/improved fluid balance, Pt will have a bowel movement prior to discharge, Pt will maintain adequate GI function appropriate for pt, Ptwill maintain normal elimination patterns, Pt will resume/maintain adequate hemodynamic status, Pt w ill experience progressive wound healing, Pt will not experience s/s of infection prior to discharge Interventions, Gastrointestinal Assess/monitor abdomen for distention, tenderness, Assess/monitor abdominal girth & bowel function, Assess/monitor bowel pattern, bowel sounds, flatus, Assess/monitor number of bowel movements, Assess/monitor color, quantity, quality, consistency of stoo, Assess/monitor pt for nausea, vomiting BH Goals/Interventions, Gastrointestinal Yes Gastrointestinal, Problem Start 10/06/2023 4:39 Reviewed plan with, Gastrointestinal Patient Patient Progression, Gastrointestinal Pt progressing according to plan . Nursing Data Vital Signs : VITAL SIGNS SECTION 10/11/2023 5:00 EST Temperature 97.7 DegF Temperature Route Oral Pulse Rate 73 bpm Respiratory Rate 17 br/min Systolic Blood Pressure 168 mm Hg H Diastolic Blood Pressure 81 mm Hg Blood pressure sites Arm, left Mean Arterial Pressure 110 mm Hg Pulse Pressure 87 mm Hg Oxygen Saturation 100 % Mode of Delivery (Oxygen) Room air 10/10/2023 22:12 EST Temperature 98.1 DegF Temperature Route Oral Pulse Rate 77 bpm Respiratory Rate 18 br/min Systolic Blood Pressure 150 mm Hg H Diastolic Blood Pressure 81 mm Hg Blood pressure sites Arm, right Mean Arterial Pressure 104 mm Hg Pulse Pressure 69 mm Hg Oxygen Saturation 98 % Mode of Delivery (Oxygen) Room air 10/10/2023 19:25 EST Early Warning Score 2.00 10/10/2023 19:25 EST Temperature 97.3 DegF Temperature Route Axillary Pulse Rate 78 bpm Respiratory Rate 17 br/min Systolic Blood Pressure 172 mm Hg H Diastolic Blood Pressure 82 mm Hg Blood pressure sites Arm, right Mean Arterial Pressure 112 mm Hg Pulse Pressure 90 mm Hg Oxygen Saturation 99 % Mode of Delivery (Oxygen) Room air . Narrative/Incidental Heparin drip continues at 20 units/kg/hr. To continue to monitor PTT daily and adjust if nontherapeutic. PTT of 69.8 in the AM 10/11; therapeutic. NGT was removed during the day 10/10. Pt was advanced to clear liquid diet; tolerating. No c/o N/V. Had 2 BMs 10/10; per pt, they were hard, but that is normal for her and what it is like at home. Was anxious about taking PO meds and did not take during daytime; acknowledged concerns and reassured/reminded pt that she did fine with me the night prior. Pt took PO meds without any problems this shift. Pt has been anxious during this admission; mentioned ativan that she had gotten night prior. Explained to pt it was a one-time dose. Pt was calm at time and accepted that fact. Did not require intervention/page to provider. Had taken off heart monitor on . It was explained that she required it due to being hypertensive this stay and on prn labetolol for SBP>180. Heart monitor placed back on by PCT this shift. Low electrolytes; postassium of 3.3 and phosphorus of 2.4. Paged covering provider.. Evaluation Pt is admitted with SBO, s/p exp lap 10/06. Midline incision with DSD, changed 10/10. Previously withNGT, to 61cm, to L nares for decompression; on low continuous wall suction; removed 10/10 on . 7-9/10 pain; prn dilaudid 0.5mg IV available Q4H. Pt is A&Ox3, can be anxious, but calm this shift. No c/o CP. No SOB. Clear liquid diet. No N/V. Anticipating diet advancement. Hx of diabetes. POC ACHS. POC at bedtime was 223; 4 units of SSI. +flatulence. Last BM 10/10 x2. Up with x1 standby assist. Has brace to R wrist; pt states she fell previously and is for comfort, nothing broken. . * Jacey Christopher RN: MODIFY, SIGN, PERFORM, MODIFY, SIGN, VERIFY Event Display: Progress Note Hospital Authored Date: Patient: GREYSON FOLEY Age: 52 years Sex: Female : 1970 Associated Diagnoses: None Author: Jacey Christopher RN Findings Problem Related to Alteration in Gastrointestinal : Alteration in Gastrointestinal Func/new 10/09/2023 22:00 EST Alteration in GI status Related to Abdominal Surgery, Other: SBO--> ex lap 10/06 Goals & Outcomes, Gastrointestinal Pt will have a bowel movement prior to discharge, Establish a regular pattern of elimination for pt, Nutritional intake is adequate for metabolic needs, Pt willachieve normal/improved fluid balance, Pt will maintain adequate GI function appropriate for pt, Ptwill maintain normal elimination patterns, Pt will resume/maintain adequate hemodynamic status, Pt w ill experience progressive wound healing, Pt will not experience s/s of infection prior to discharge Interventions, Gastrointestinal Assess/monitor abdomen for distention, tenderness, Assess/monitor abdominal girth & bowel function, Assess/monitor bowel pattern, bowel sounds, flatus, Assess/monitor number of bowel movements, Assess/monitor color, quantity, quality, consistency of stoo, Assess/monitor pt for nausea, vomiting, Assess/monitor effects of re-hydration, Assess/monitor intake &output, Elevate HOB to facilitate lung expansion, prevent aspiration, Nasogastric to LWS as ordered;care per Standards of Practice Goals/Interventions, Gastrointestinal Yes Gastrointestinal, Problem Start 10/06/2023 4:39 Reviewed plan with, Gastrointestinal Patient Patient Progression, Gastrointestinal Pt progressing according to plan 10/09/2023 14:00 EST Alteration in GI status Related to Abdominal Surgery, Other: SBO--> ex lap 10/06 Goals & Outcomes, Gastrointestinal Establish a regular pattern of elimination for pt, Nutritional intake is adequate for metabolic needs, Pt will achieve normal/improved fluid balance, Pt will have a bowel movement prior to discharge, Pt will maintain adequate GI function appropriate for pt, Ptwill maintain normal elimination patterns, Pt will resume/maintain adequate hemodynamic status, Pt w ill experience progressive wound healing, Pt will not experience s/s of infection prior to discharge Interventions, Gastrointestinal Assess/monitor abdomen for distention, tenderness, Assess/monitor abdominal girth & bowel function, Assess/monitor bowel pattern, bowel sounds, flatus, Assess/monitor number of bowel movements, Assess/monitor color, quantity, quality, consistency of stoo, Assess/monitor pt for nausea, vomiting, Assess/monitor effects of re-hydration, Assess/monitor intake &output, Assess if pt tolerating diet Goals/Interventions, Gastrointestinal Yes Gastrointestinal, Problem Start 10/06/2023 4:39 Reviewed plan with, Gastrointestinal Patient Patient Progression, Gastrointestinal Pt progressing according to plan 10/08/2023 21:00 EST Alteration in GI status Related to Abdominal Surgery, Other: SBO--> ex lap 10/06 Goals & Outcomes, Gastrointestinal Establish a regular pattern of elimination for pt, Nutritional intake is adequate for metabolic needs, Pt will achieve normal/improved fluid balance, Pt will have a bowel movement prior to discharge, Pt will maintain adequate GI function appropriate for pt, Ptwill maintain normal elimination patterns, Pt will resume/maintain adequate hemodynamic status, Pt w ill experience progressive wound healing, Pt will not experience s/s of infection prior to discharge Interventions, Gastrointestinal Assess/monitor abdomen for distention, tenderness, Assess/monitor abdominal girth & bowel function, Assess/monitor bowel pattern, bowel sounds, flatus, Assess/monitor pt for nausea, vomiting, Assess/monitor effects of re-hydration, DVT prophylaxis as ordered, Elevate HOB to facilitate lung expansion, prevent aspiration, Nasogastric to LWS as ordered;care per Standards of Practice, Provide/encourage oral care if NPO Goals/Interventions, Gastrointestinal Yes Gastrointestinal, Problem Start 10/06/2023 4:39 Reviewed plan with, Gastrointestinal Patient Patient Progression, Gastrointestinal Pt progressing according to plan 10/08/2023 13:00 EST Alteration in GI status Related to Abdominal Surgery, Other: SBO--> ex lap 10/06 Goals & Outcomes, Gastrointestinal Establish a regular pattern of elimination for pt, Nutritional intake is adequate for metabolic needs, Pt will achieve normal/improved fluid balance, Pt will have a bowel movement prior to discharge, Pt will maintain adequate GI function appropriate for pt, Ptwill maintain normal elimination patterns, Pt will resume/maintain adequate hemodynamic status, Pt w ill experience progressive wound healing, Pt will not experience s/s of infection prior to discharge Interventions, Gastrointestinal Assess/monitor abdomen for distention, tenderness, Assess/monitor abdominal girth & bowel function, Assess/monitor bowel pattern, bowel sounds, flatus, Assess/monitor number of bowel movements, Assess/monitor color, quantity, quality, consistency of stoo, Assess/monitor pt for nausea, vomiting, Assess/monitor effects of re-hydration, Assess/monitor intake &output, Assess if pt tolerating diet Goals/Interventions, Gastrointestinal Yes Gastrointestinal, Problem Start 10/06/2023 4:39 Reviewed plan with, Gastrointestinal Patient Patient Progression, Gastrointestinal Pt progressing according to plan . Narrative/Incidental P:alteration in Gastrointestinal Function I:see above interventions E: NGT to LWS, dark green drainage small amt. Hypo BS. + flatus. Abdomen soft, tender to palpation.No c/o n/v. Pt c/o abdominal pain 05/21, medicated with IV Dilaudid 0.5mg as ordered prn. Pt assessed at start of shift. A&OX3, anxious at times. alarm security or surveillance monitor in place- NSR 80's. No c/o SOB or CP. IS, C&DB enc. Pt refused po medications this am, stating too scared to try at this time. See new order to discontinue NGT, removed at 1000. Diet NPO, sips of CF. Pt tolerating ice chips. Midline abdominal incision Aquacel dsg CDI. Hypo BS. + flatus. Pt states no BM since 10/01. IV Magnesium infusing as ordered. IV Heparin drip continues, PTT level this am 70.6 therapeutic. No change in Heparin drip rate, PTT to be repeated daily per protocol. BP elevated this am at 187/82, pt given IV Labetolol given as ordered prn. Pt ambulating in [place] with walker, contact guard. Fall precau tions in place. Call miranda within reach. Will cont to monitor. * Candi KAN, Jacey: PERFORM Event Display: Progress Note Hospital Authored Date: Pt had 1 medium formed stool. BS+. Pt tolerating CF diet. Abdomen tender, + flatus. * Tamera Seo: PERFORM Event Display: Progress Note Hospital Authored Date: Patient: ??GREYSON FOLEY ? Age:??52 Years?Sex:??Female?:??1970?? Subjective Patient seen and examined at bedside this morning. She is doing ok??but complaining of throat pain due to NGT. She states her abdominal pain is improving.?? She has been passing gas but has not had abowel movement. We discussed request for psych consult yesterday.?? Patient states she is feeling better in that regard and was just feeling anxious.?? She would prefer to hold off and see psych outpatient.?? Review of Systems Denies vomiting, fever, chills, chest pain, shortness of breath.?? Physical Exam Vitals & Measurements T:??97.7?F?? HR:??82??(Peripheral)?? RR:??16?? BP:??187/82?? SpO2:??98%?? HT:??158??cm?? WT:??83??kg?? BMI:??33.25?? General: no acute distress, awake and alert HEENT: normocephalic, atraumatic, moist mucous membranes, NGT in place with dark bilious output Cardiac: regular rate and rhythm Respiratory: normal work of breathing on room air Abdomen: soft, nondistended, mild diffuse tenderness, midline li in place Extremities: no peripheral??edema Neuro: AAOx3, moving all extremities without focal deficits Skin: warm and dry without rash Psych: mood and affect appropriate Assessment/Plan Assessment:??52 year-old female with PMH significant for CAD w/ NSTEMI (2018), DVT/PE on eliquis, HTN, HLD, DM2, and bipolar disorder, who presented to the ED on 10/05 with 1 day of severe abdominal pain. CT findings are concerning for a possible small bowel obstruction. Given the patient's history of prior surgery and endometriosis, the obstruction is presumably secondary to adhesions. NGT for decompression and taken to the OR for exploratory laparotomy, repair of abdominal wall defect with 10/06/2023. Post-operative course complicated by bleeding from midline incision and worsening abdominal pain. CT A/P obtained which did not show acute intra-abdominal process but possible subcutaneous hematoma at midline. Bleeding controlled with surgicel packing. Patient remains hemodynamicallystable. Hep gtt initially held but restarted 10/07. H/H stable. Dark colored NGT output, started on IV PPI. She is passing gas but has not yet had a bowel movement. ?? SBO (small bowel obstruction) (K56.609):?-s/p exploratory laparotomy, repair of abdominal wall defect with Dr. Nuno 10/06/2023 ??-NGT for decompression; possibly remove today will discuss with attending ??-NPO, IVF - If NGT DC likely will give sips of clears ??-Multimodal pain control ??-daily labs with prn repletion ??-oob activities as tolerated ??-Heparin gtt ?? Type 2 diabetes mellitus (E11.9):??-home metformin and trulicity on hold ??-POC TID ACHS, Q 6 hours while NPO ??-ISS, home lantus 20 units QHS decrease to 15 units while NPO, adjust accordingly ??-Hypoglycemic measures ?? Hypertension (I10):??-home losartan on hold ??-monitor ?? Deep vein thrombosis (I82.409):??-home PO eliquis on hold -heparin gtt ?? Asthma (J45.909):??-stable PRN Albuterol inhaler ?? Bipolar disorder (F31.9):??-Home meds resumed ?? Chronic GERD (K21.9):??-On IV PPI BID for dark colored NGT output ?? Spondylosis, thoracic (M47.814):?-lidocaine patch Q12 hours ?? To be discussed with Dr. Yaakov TREADWELL [id number] Intake and Output Intake and Output Results?? This visit (24 hour periods starting at 07:00 EST)? 10/10/23 *?? 10/09/23?? 10/08/23?? Total Summary?Intake mL?? 50?? 866.2?? 1,316.41?Output mL?? --?? 2,600?? 3,550?Fluid Balance ?? 50?? -1,733.8?? -2,233.59?? Intake (5)?Acetaminophen mL?? --?? --?? 400?Heparin 25,000 units [20 units/kg/hr] + Dextrose 5% in Water 250 mL mL?? --?? 116.2?? 66.4?Magnesium Sulfate mL?? 50?? 50?? 100?Potassium Chloride mL?? --?? 700?? 500?Sodium Phosphate mL?? --?? --?? 250.01?Total?? 50?? 866.2?? 1,316.41?? Output (2)?NG Output mL?? --?? 550?? 1,650?Urine Voided mL?? --?? 2,050?? 1,900?Total?? --?? 2,600?? 3,550?? Counts (1)?Urine Voided mL?? --?? 2,050?? 1,900? * This column has not completed the indicated time period.?? Labs Last 24 Hours BLOOD COUNT & DIFF ? Event Name?? Event Result?? Date/Time?? WBC 8.2 k/mm3 10/10/23 05:44:00 RBC 4.02 m/mm3??Low 10/10/23 05:44:00 Hgb 11.4 Gm/dL??Low 10/10/23 05:44:00 Hct 34 %??Low 10/10/23 05:44:00 MCV 84.6 femtoliters 10/10/23 05:44:00 MCH 28.4 pg 10/10/23 05:44:00 MCHC 33.5 g/dL 10/10/23 05:44:00 Platelet Count 268 k/mm3 10/10/23 05:44:00 MPV 9.4 femtoliters 10/10/23 05:44:00 Nucleated RBC (Automated) 0 #/100 WBC'S 10/10/23 05:44:00 ? COAG ? Event Name?? Event Result?? Date/Time?? APTT 70.6 seconds??High 10/10/23 05:44:00 ? CHEM GENERAL ? Event Name?? Event Result?? Date/Time?? Sodium 141 mmol/L 10/10/23 05:57:00 Chloride 103 mmol/L 10/10/23 05:57:00 Bicarbonate Level 23 mmol/L 10/10/23 05:57:00 Anion Gap 15 10/10/23 05:57:00 BUN 6 mg/dL 10/10/23 05:57:00 Creatinine-Blood 0.6 mg/dL 10/10/23 05:57:00 Calcium, Ionized pH Corrected 1.2 mmol/L 10/10/23 05:57:00 Phosphorus 3.5 mg/dL 10/10/23 05:57:00 Magnesium 1.5 mg/dL??Low 10/10/23 05:57:00 ? * Malvin Nuno MD: PERFORM Event Display: Progress Note Hospital Authored Date: I have personally seen and evaluated the patient, lab work and imaging on the day of below/above resident/PA/BEST WORKER note. ??I agree with the documented resident/PA/BEST WORKER note and plan for care, as above.? Malvin Nuno, ??, MPH, FACS Trauma, General Surgery and Surgical Critical Care?? Note * Mira Prieto RN: PERFORM Event Display: Discharge/Transfer Note Hospital Authored Date: [id number] Nursing Discharge Note Entered On: 10/11/2023 15:06 EST Performed On: 10/11/2023 15:06 EST by Mira Prieto RN Nursing Discharge Note 2 Discharge Time : 10/11/2023 15:15 EST Discharge Level of Care at Discharge : Home/Retirement/Foster Care Patient Left Unit Via : Wheelchair Patient Accompanied Off Unit with : Responsible adult DC Instructions Provided & Signed by Pt : Yes Patient Understands D/C Instructions : Yes Patient Instructions Discharge Signed : Yes Did Pt have Specialty Bed or Wound Vac : No Mira Prieto RN - 10/11/2023 15:06 EST * Alexander JERONIMO, Tamra Grossman: PERFORM, MODIFY Event Display: Discharge/Transfer Note Hospital Authored Date: [id number] Patient: ??GREYSON FOLEY ? Age:??52 Years?Sex:??Female?:??1970?? Admit Date Admission Date: 10/05/2023 Discharge Date 10/11/2023 Discharge Diagnoses 1.??Spondylosis, thoracic, 10/06/2023 2.??Type 2 diabetes mellitus, 10/06/2023 3.??Hypertension, 10/06/2023 4.??Constipation, chronic, 10/06/2023 5.??Substance abuse, 10/06/2023 Abdominal pain, 10/06/2023 Asthma, 10/06/2023 Bipolar disorder, 10/06/2023 Chronic GERD, 10/06/2023 Deep vein thrombosis, 10/06/2023 Hypothyroid, 10/06/2023 SBO (small bowel obstruction), 10/06/2023 Hospital Course 52 year-old female with PMH significant for CAD w/ NSTEMI (2018), DVT/PE on eliquis, HTN, HLD, DM2,and bipolar disorder, who presented to the ED on 10/05 with 1 day of severe abdominal pain. CT findings are concerning for a possible small bowel obstruction. Given the patient's history of prior surgery and endometriosis, the obstruction is presumably secondary to adhesions. NGT for decompression and taken to the OR for exploratory laparotomy, repair of abdominal wall defect with Dr. Nuno 10/06/2023. Post-operative course complicated by bleeding from midline incision and worsening abdominal pain.CT A/P obtained which did not show acute intra-abdominal process but possible subcutaneous hematomaat midline. Bleeding controlled with Surgicel packing. Patient remains hemodynamically stable. Hep gtt initially held, restarted without any further bleeding??and transitioned over to home Eliquis.?H/H has remained stable. Dark colored NGT output, started on IV PPI. She has begun to pass gas andhave bowel movements.?Abdominal pain??improved. She is tolerating a solid diet and is ready for discharge home today. ?? SBO (small bowel obstruction) (K56.609):?-s/p exploratory laparotomy, repair of abdominal wall defect with Dr. Nuno 10/06/2023 ??-NGT??dc'd ??-tolerating a??solid diet ??-has had a return of bowel function ??-she has been given a prescription for oxycodone 5 mg Q6 hours prn for pain control, she will continue??home Docusate for constipation prevention ??-OP FU scheduled for 10/26/2023 at 09:[address] Nuno for staple removal and post surgical FU. ?? Hypokalemia: ??-k level 3.3 on day of discharge ??-repleted IV/PO ??-OP PCP FU and periodic monitoring ?? Type 2 diabetes mellitus (E11.9): ??-resume home metformin and trulicity?-home lantus regimen ?? Hypertension (I10):?-restart home losartan ?? Deep vein thrombosis (I82.409):?? - heparin gtt dc 10/11/2023--->initiate home Eliquis ?? Asthma (J45.909):??-stable PRN Albuterol inhaler ?? Bipolar disorder (F31.9):??-continue with ?? Chronic GERD (K21.9):??home famotidine ?? Substance abuse (F19.10): continue with home suboxone Objective/Physical Exam on Day of Discharge Vitals & Measurements T:??98.2?F?? HR:??75??(Peripheral)?? RR:??19?? BP:??154/86?? SpO2:??100%?? HT:??158??cm?? WT:??83??kg?? BMI:??33.25?? GENERAL: lying comfortably in bed, in no acute distress. HEENT: Moist oral mucosa. Atraumatic, normocephalic. PERRL, EOM grossly intact, nonicteric. NECK: Supple, trachea midline. No JVD HEART:?? heart rate regular, warm, pink, dry CHEST: Bilateral chest rise ABDOMEN: Soft, non-tender to palpation without rebound or guarding. ??Midline incision??open to air, li intact, entire abdomen ecchymotic EXTREMITIES: no edema, CHACKO, 2+ radial, 2+ dorsalis pedis pulses NEUROLOGIC: A/O x3, CN grossly intact. No focal weakness? Future Appointments 2023 9:20 AM EST ?? With: Yaakov VILLELA, Malvin Joshi Where: [facility] [address] [place] [address]- Status: Pending Monday 1:00 PM EDT ?? With: Tony Velez Where: [facility] [address] [place] [address]- Status: Pending Patient Discharge Condition improved Discharge Disposition home with no services Procedures Performed This Visit 10/06/2023 Preoperative Diagnosis small bowel obstruction Postoperative Diagnosis Small bowel obstruction Operation Exploratory laparotomy, repair of??anterior abdominal wall defect Surgeon(s) Malvin Nuno MD (Primary Surgeon) Staff Scientist Dr. Small Inpatient Medications Medications (31) Active SCHEDULED: (17) Acetaminophen 325 mg Tablet (acetaminophen 325 mg oral tablet) ??975 mg, By Mouth, Every 6 hours Apixaban 5 mg Tablet (Eliquis) ??5 mg, By Mouth, 2 times a day Aripiprazole 5 mg Tablet (ARIPiprazole 5 mg oral tablet) ??5 mg, By Mouth, Daily Atorvastatin 40 mg Tablet (atorvastatin 40 mg oral tablet) ??40 mg, By Mouth, Daily Doxepin 25 mg Capsule (Doxepin Tablet) ??25 mg, By Mouth, Daily at bedtime Famotidine 20 mg Tablet (famotidine 20 mg oral tablet) ??40 mg, By Mouth, Daily FLUoxetine 4 mg/mL Oral Syringe (5mL) (FLUoxetine Liquid) ??40 mg 10 mL, By Mouth, Daily Insulin Glargine 100 units/mL Inj (Lantus Inj) ??15 units 0.15 mL, Subcutaneous Injection, Daily atbedtime Insulin Lispro 100 units/mL Inj (3mL) (Insulin LISPRO Sliding Scale) ??2-10 units, Subcutaneous Injection, 3 times a day before meals and bedtime Lidocaine 4% Inhalation Solution (Lidocaine 4% Inj for Nebulization) ??5 mL, Inhalation, Once Lidocaine 5% Topical Patch (Lidocaine 5% Patch) ??1 each, Topically, Daily Lidocaine Topical 2% Gel (11mL) (Lidocaine 2% Topical) ??1 application, Topically, Once Losartan 50 mg Tablet (losartan 50 mg oral tablet) ??100 mg, By Mouth, Daily Potassium Chloride 10 mEq / 100 mL (Potassium Chloride 10 mEq/100 mL IVPB) ??10 mEq 100 mL, IVPB, Every hour Potassium Chloride 10mEq ER Tablet (potassium chloride 10 mEq oral tablet, extended release) ??20 mEq, By Mouth, Once Remove Patch (Remove Lidocaine Patch) ??1 each, Topically, Daily at bedtime Topiramate 100 mg Tablet (Topamax Tablet) ??100 mg, By Mouth, Daily CONTINUOUS: (1) Lactated Ringers (1000 mL) Cont IV 1,000 mL (LR 1,000 mL) ??1,000 mL, IV Infusion, 125 mL/hr PRN: (13) Albuterol 90mcg/Inhalation Inhaler HFA (albuterol CFC free 90 mcg/inh inhalation aerosol) ??180 mcg2 puffs, Inhalation, 4 times a day Albuterol 90mcg/Inhalation Inhaler HFA (albuterol CFC free 90 mcg/inh inhalation aerosol) ??90 mcg 1 puffs, Inhalation, Every 4 hours Chloraseptic Lozenge ??1 lozenge, By Mouth, Every 3 hours Chloraseptic Throat Iona (Chloraseptic Iona) ??1 sprays, By Mouth, Every 4 hours Dextrose Inj Syringe (Dextrose 50% Inj Syringe (25Gm)) ??12.5 Gm, IV Push Slowly, Every 20 minutes Dextrose Inj Syringe (Dextrose 50% Inj Syringe (25Gm)) ??25 Gm, IV Push Slowly, Every 15 minutes Glucagon 1 mg Inj (Glucagon Inj) ??1 mg, Intramuscular, Once Glucose 40% Gel (15 Gm) (Glucose Gel) ??15 Gm, By Mouth, Every 20 minutes Glucose 40% Gel (15 Gm) (Glucose Gel) ??30 Gm, By Mouth, Every 20 minutes Labetalol 5 mg/mL Inj (20 mL) (Labetalol Inj) ??5 mg 1 mL, IV Push Slowly, Every 3 hours Lidocaine 2% Viscous Solution UD (15mL) (Lidocaine 2% Viscous Liquid) ??10 mL, Swish and Spit, Once Ondansetron 2mg/mL Inj (2mL Vial) (Ondansetron Inj) ??4 mg, IV Push, Every 6 hours OxyCODONE 5 mg IR Tablet (oxyCODONE 5 mg oral tablet) ??5 mg, By Mouth, Every 6 hours Discharge Medications Albuterol (albuterol CFC free 90 mcg/inh inhalation aerosol)?2?puff(s)?Inhalation?4 times a day?as needed?for wheezing apixaban (Eliquis 5 mg oral tablet)?1?tab(s)?5?Milligram?By Mouth?2 times a day Aripiprazole (ARIPiprazole 5 mg oral tablet)?5?Milligram?1?tablet?By Mouth?Daily Atorvastatin (atorvastatin 40 mg oral tablet)?1?tab(s)?40?Milligram?By Mouth?Daily Buprenorphine-Naloxone (Suboxone 8 mg-2 mg sublingual film)?See Instructions?1 film Sublingual in am and 1/2 at night Cholecalciferol (Vitamin D3 1000 intl units oral [...] 100 units/mL subcutaneous solution)?20?unit(s)?Subcutaneous Injection?Daily at bedtime Losartan (losartan 25 mg oral tablet)?50?Milligram?2?tablet?By Mouth?Daily Metformin (metFORMIN 1000 mg oral tablet)?1?tab(s)?1,000?Milligram?By Mouth?2 times a day Multivitamin With Minerals (multivitamin with minerals Multiple Vitamins with Minerals oral tablet)?1?tab(s)?By Mouth?Daily Oxycodone (oxyCODONE 5 mg oral tablet)?5?Milligram?By Mouth?Every 6 hours?as needed?for 3?Days?Pain , Severe Prazosin (prazosin 1 mg oral capsule)?1?Milligram?1?capsule?By Mouth?2 times a day Thyroid Desiccated ([place] Thyroid 60 mg oral tablet)?60?Milligram?1?tablet?By Mouth?Daily Topiramate (topiramate 100 mg oral capsule, extended release)?1?capsule?100?Milligram?By Mouth?Daily Trazodone (traZODone 100 mg oral tablet)?100?Milligram?1?tablet?By Mouth?Daily atbedtime Labs Last 24 Hours BLOOD COUNT & DIFF ? Event Name?? Event Result?? Date/Time?? WBC 7 k/mm3 10/11/23 01:10:00 RBC 3.67 m/mm3??Low 10/11/23 01:10:00 Hgb 10.2 Gm/dL??Low 10/11/23 01:10:00 Hct 30.7 %??Low 10/11/23 01:10:00 MCV 83.7 femtoliters 10/11/23 01:10:00 MCH 27.8 pg 10/11/23 01:10:00 MCHC 33.2 g/dL 10/11/23 01:10:00 Platelet Count 236 k/mm3 10/11/23 01:10:00 MPV 9.7 femtoliters 10/11/23 01:10:00 Nucleated RBC (Automated) 0 #/100 WBC'S 10/11/23 01:10:00 ? COAG ? Event Name?? Event Result?? Date/Time?? APTT 69.8 seconds??High 10/11/23 01:10:00 ? CHEM GENERAL ? Event Name?? Event Result?? Date/Time?? Sodium 142 mmol/L 10/11/23 01:13:00 Chloride 105 mmol/L 10/11/23 01:13:00 Bicarbonate Level 27 mmol/L 10/11/23 01:13:00 Anion Gap 10 10/11/23 01:13:00 BUN 4 mg/dL??Low 10/11/23 01:13:00 Creatinine-Blood 0.6 mg/dL 10/11/23 01:13:00 Calcium, Ionized pH Corrected 1.22 mmol/L 10/11/23 01:13:00 Phosphorus 2.4 mg/dL??Low 10/11/23 01:13:00 Magnesium 1.9 mg/dL 10/11/23 01:13:00 ? Patient Education Titles Oxycodone Oral Tablet?? Small Bowel Obstruction?? Follow-Up Appointments Added Follow Up ?Time Frame ?Comments Ken VILLELA , Tyesha?Within two weeks?please call to arrange a post hospital follow up: periodic monitoring of chemistries Patient Instructions AFTER YOUR SURGERY? IF YOU HAVE HAD GENERAL ANESTHESIA, NO DRIVING, DRINKING ALCOHOL, OR MAKING LEGAL DECISIONS FOR THENEXT 24 HOURS. ?? Diet: ?Return to your regular diet by advancing slowly from clear liquids to soft, bland foods, and finally to a normal meal over 24 hours, avoiding anything heavy, greasy, or spicy. ?Drink 6 to 8 glasses of fluids per day. ?No alcoholic beverages post-operatively or while taking pain medications. ?? Activity:?Avoid any activity that causes discomfort.?Normal daily activities are safe. ?Avoid straining, vigorous sports or lifting anything more than 10 pounds for 4 weeks, or as directed by your surgeon. ?After the first 24 hours, you may drive whenever comfortable, but do not go alone the first time and do not drive after taking pain medications. ? Dressings and Wound care: ?You may remove your bandage (if you have one in place) in 48 hours and shower (no soaking in a tub, pool, or hot tub.)?If you have steri-strips, li, or sutures, it???s okay if they happen to get wet, but be sure to pat dry with a clean towel as soon as you get out. ?It is very important to keep your incision area clean and dry.?You may cover up the incisions with a bandage for protection, but once the incisions are dried/ scabbed over, you may leave them open to air.?Steri- strips will start curling up and drying out over several days.?Theymay start to drop off by themselves, and this is all right.? Medications: ?Pain:?If you did not receive your prescription at your office visit, you will be given a prescription for pain at the time of discharge. Follow the instructions for taking these medications.?If the pain you are experiencing is mild, extra-strength Tylenol will likely take care of i t.?Remember that narcotic pain medications can cause constipation.?Some narcotics contain Tylenol (acetaminophen) and if additional pain medicines are required, do not take additional Tylenol products- use ibuprofen or naproxen instead.?Take a stool softener as prescribed below and drink plenty of fluids.?NOTE: Refills for pain medications will be available (if needed) Monday thru 8:30 am to 4:00 pm.??You or a family member will have to come to the office to cotton picker operator a paper prescription.??DO NOT call the office or answering service on nights or weekends for pain medication refills because pharmacies do not fill narcotics by phone or fax. ?Home Medications: Resume any medications your primary physician has prescribed unless specifically instructed. ?Antibiotics: If one is prescribed for you, be sure to take it until there are no more pills left.?Stool softener:?Colace 100 mg??or its generic form??DOCUSATE??tablet by mouth twice a day as directed. Some people will need to take stool softener short-term after surgery. If you have chronic diarrhea or inflammatory bowel disease, you should not take stool softener unless you are c onstipated ?Constipation:?Take??Milk of Magnesia??as directed on the bottle every 6 hours for 24hours, OR Miralax at night per directions.?These are both available over the counter.?If thisfails to relieve the problem, call the office. ?? Expect the following: ?Some oozing of blood to the bandage in the first 24 hours. ?Fatigue, especially in the first 24 hours. ?Pain or discomfort, which will lessen as time passes.?If your surgery was done laparoscopically, you could have abdominal, shoulder, or collarbone pains.?These will disappear gradually over several days. ?Constipation is a possibility, especially if narcotic pain relievers are needed. ?? Call the office or answering service immediately if any of the following occur: ?Severe pain not relieved by pain medication. ?Uncontrollable bleeding/ bleeding that saturates your dressing. ?Any bright redness, red streaking, or swelling around your incision, or any bad odor, or pus-like drainage coming from your incision. ?Temperature more than??101 F (38 C). ?Repeated nausea and vomiting or inability to tolerate or hold down fluids ?Inability to urinate. ?? Post-operative appointments: ?If you have not already scheduled your follow-up appointment, call . You should arrange to be seen in 2-3 weeks after surgery.?Ask regarding exact timing of follow-up. ?A nurse visit might also be schedule for 1 week after for staple/suture removal or wound check.? Problems or Questions: ?Office hours are 8:30 am to 5:00 pm Monday thru Monday. It is best to call during office hours with routine questions.?You may reach the clinical staff during office hours at ?If you have an after-hours emergency, you can call the answering service at . ?If you cannot reach our office and your problem truly requires emergency attention, go to??[facility] Emergency Room??or the nearest emergency room. * Mira Prieto RN: PERFORM Event Display: Patient Education/Instruction Authored Date: [id number] Inpatient Adult Discharge Instructions. [address] [address] Name: GREYSON FOLEY : 1970?? Visit: 10/05/2023 21:28?? Current Date: 10/11/2023 14:38 ?? Account: [id number]?? Inpatient Adult Discharge Instructions We would like [...] and their families. Surveys are administered by [employer] ?? If further treatment with your primary care physician or another doctor is recommended, it is important for you to keep the appointment. Call your primary care physician or return to the Emergency Department immediately if your condition worsens, fails to improve, or new symptoms develop. If you need to find a doctor, you can call [facility] [employer] for a referral at [phone] or toll free at [phone] or log in to [email or web address].. ?? [facility], in keeping with [facility] guidance, no longer requires face masks [...] a health care anaya of your choosing. [employer] is a website that allows you to securely view your medical information including your hospital discharge summary, office visit summaries, medications and follow-up visits. You can also request appointments, renew medications, and request access to your medical information using a health care anaya of your choosing, or just ask a question. You can enroll at [email or web address] or register during your next office visit. You have been discharged from [facility], Patient Care Unit: SW7??. If you have any questions regarding these instructions, including results of studies pending, afteryou leave, please call us and we will be happy to assist you 03/04. [facility] Your Care Team Attending Physician Malvin Nuno MD?? Consulting Providers Malvin Nuno MD?? Discharging Providers Alexander JERONIMO, Tamra Grossman Reason for Your Visit From home. pt c/o central abd pain radiating to ??R side beginning last PM. +nausea .abd tender to palpation. pt reports hx of kidney stone and diverticulitis. feels like past diverticulitis. denies fever, vomiting, diarrhea.?? Your Diagnosis Spondylosis, thoracic Type 2 diabetes mellitus Hypertension Constipation, chronic Substance abuse Abdominal pain Asthma Bipolar disorder Chronic GERD Deep vein thrombosis Hypothyroid SBO (small bowel obstruction) Tests Performed Below is a partial list of the tests performed during your hospitalization. You may have had other tests and procedures not included in this list. Please discuss all test results with your provider. BUN CBC w/ Differential Comprehensive Metabolic Panel Creatinine Electrolytes GLUCOSE POC Hold Blue Top Tube HOLD GEL TUBE HOLD LAVENDER TUBE Ionized Calcium Lactate Level Lactic Acid Level Lipase Lytes Magnesium Level Phosphorus Level Serum Qualitative PTT CT Abd/Pelvis W/ IV Contrast Only CT Abd/Pelvis W/ Oral Contrast Only CXR Portable KUB XR Abdomen AP XR Chest Portable BUN?? CBC w/ Differential?? Creatinine?? Electrolytes (Lytes)?? Ionized Calcium?? Magnesium Level?? PTT?? Phosphorus Level?? Primary Care Provider Ken VILLELA , Tyesha? Discharge Vitals Temperature: 97.5 DegF Height: 158 cm Pulse Rate: 82 bpm Weight: 83 kg Respiratory Rate: 19 br/min Body Mass Index:??33.25 kg/m2??Critical Systolic Blood Pressure:??152 mm Hg??High Body surface area: 1.91 Diastolic Blood Pressure:??92 mm Hg??High ?? Oxygen Saturation: 100 % ?? Studies Pending All studies ordered during this hospital stay have been completed unless listed below. Please discuss all pending results with your provider listed above in these instructions. ?? BUN?? CBC w/ Differential?? Creatinine?? Electrolytes (Lytes)?? Ionized Calcium?? Magnesium Level?? PTT?? Phosphorus Level?? What to do next Instructions From Your Doctor AFTER YOUR SURGERY? IF YOU HAVE HAD GENERAL ANESTHESIA, NO DRIVING, DRINKING ALCOHOL, OR MAKING LEGAL DECISIONS FOR THENEXT 24 HOURS. ?? Diet: ?Return to your regular diet by advancing slowly from clear liquids to soft, bland foods, and finally to a normal meal over 24 hours, avoiding anything heavy, greasy, or spicy. ?Drink 6 to 8 glasses of fluids per day. ?No alcoholic beverages post-operatively or while taking pain medications. ?? Activity:?Avoid any activity that causes discomfort.?Normal daily activities are safe. ?Avoid straining, vigorous sports or lifting anything more than 10 pounds for 4 weeks, or as directed by your surgeon. ?After the first 24 hours, you may drive whenever comfortable, but do not go alone the first time and do not drive after taking pain medications. ? Dressings and Wound care: ?You may remove your bandage (if you have one in place) in 48 hours and shower (no soaking in a tub, pool, or hot tub.)?If you have steri-strips, li, or sutures, it???s okay if they happen to get wet, but be sure to pat dry with a clean towel as soon as you get out. ?It is very important to keep your incision area clean and dry.?You may cover up the incisions with a bandage for protection, but once the incisions are dried/ scabbed over, you may leave them open to air.?Steri- strips will start curling up and drying out over several days.?Theymay start to drop off by themselves, and this is all right.? Medications: ?Pain:?If you did not receive your prescription at your office visit, you will be given a prescription for pain at the time of discharge. Follow the instructions for taking these medications.?If the pain you are experiencing is mild, extra-strength Tylenol will likely take care of i t.?Remember that narcotic pain medications can cause constipation.?Some narcotics contain Tylenol (acetaminophen) and if additional pain medicines are required, do not take additional Tylenol products- use ibuprofen or naproxen instead.?Take a stool softener as prescribed below and drink plenty of fluids.?NOTE: Refills for pain medications will be available (if needed) Monday thru 8:30 am to 4:00 pm.??You or a family member will have to come to the office to cotton picker operator a paper prescription.??DO NOT call the office or answering service on nights or weekends for pain medication refills because pharmacies do not fill narcotics by phone or fax. ?Home Medications: Resume any medications your primary physician has prescribed unless specifically instructed. ?Antibiotics: If one is prescribed for you, be sure to take it until there are no more pills left.?Stool softener:?Colace 100 mg??or its generic form??DOCUSATE??tablet by mouth twice a day as directed. Some people will need to take stool softener short-term after surgery. If you have chronic diarrhea or inflammatory bowel disease, you should not take stool softener unless you are c onstipated ?Constipation:?Take??Milk of Magnesia??as directed on the bottle every 6 hours for 24hours, OR Miralax at night per directions.?These are both available over the counter.?If thisfails to relieve the problem, call the office. ?? Expect the following: ?Some oozing of blood to the bandage in the first 24 hours. ?Fatigue, especially in the first 24 hours. ?Pain or discomfort, which will lessen as time passes.?If your surgery was done laparoscopically, you could have abdominal, shoulder, or collarbone pains.?These will disappear gradually over several days. ?Constipation is a possibility, especially if narcotic pain relievers are needed. ?? Call the office or answering service immediately if any of the following occur: ?Severe pain not relieved by pain medication. ?Uncontrollable bleeding/ bleeding that saturates your dressing. ?Any bright redness, red streaking, or swelling around your incision, or any bad odor, or pus-like drainage coming from your incision. ?Temperature more than??101 F (38 C). ?Repeated nausea and vomiting or inability to tolerate or hold down fluids ?Inability to urinate. ?? Post-operative appointments: ?If you have not already scheduled your follow-up appointment, call . You should arrange to be seen in 2-3 weeks after surgery.?Ask regarding exact timing of follow-up. ?A nurse visit might also be schedule for 1 week after for staple/suture removal or wound check.? Problems or Questions: ?Office hours are 8:30 am to 5:00 pm Monday thru Monday. It is best to call during office hours with routine questions.?You may reach the clinical staff during office hours at ?If you have an after-hours emergency, you can call the answering service at . ?If you cannot reach our office and your problem truly requires emergency attention, go to??[facility]??or the nearest emergency room. ?? Orders? 10/11/23 14:24:00 EST?? Scheduled Follow-Up Appointments 2023 9:20 AM EST ?? With: Yaakov VILLELA, Malvin Joshi Where: [facility] [address] [place] [address]- Status: Pending Monday 1:00 PM EDT ?? With: Tony Velez Where: [facility] [address] [place] [address]- Status: Pending You Need to Schedule the Following Appointments Follow Up with??Ken VILLELA , Tyesha When:??Within Within two weeks Why: please call to arrange a post hospital follow up: periodic monitoring of chemistries Where: [address] [place] [address]- Discharge Medications GREYSON FOLEY :1970 Visit Date:10/05/2023 Medications: Please continue your medications until treatment is completed or stopped by your provider. Medications not listed below should be discontinued. Discuss any questions related to medications with your provider. What How Much When Instructions Next Dose New Oxycodone (oxyCODONE 5 mg oral tablet) 5 Milligram Oral Every 6 hours as needed for Pain , Severe Duration: 3 Days Pickup at [facility] 3 4pm Changed Docusate (docusate sodium 100 mg oral capsule) 1 capsule Oral Twice a day Tonight before bed Changed Prazosin (prazosin 1 mg oral capsule) 1 capsule Oral Twice a day Tonight before bed Changed Trazodone (traZODone 100 mg oral tablet) 1 tab(s) Oral Daily at Bedtime Tonight before bed Unchanged Albuterol (albuterol CFC free 90 mcg/ inh inhalation aerosol) 2 puff(s) Inhalation 4 times a day as needed for for wheezing As needed Unchanged apixaban (Eliquis 5 mg oral tablet) 1 tab(s) Oral Twice a day Tonight before bed Unchanged Aripiprazole (ARIPiprazole 5 mg oral tablet) 1 tab(s) Oral Daily Tomorrow morning Unchanged Atorvastatin (atorvastatin 40 mg oral tablet) 1 tab(s) Oral Daily Tomorrow morning Unchanged Buprenorphine-Naloxone (Suboxone 8 mg-2 mg sublingual film) See instructions 1 film Sublingual in am and 1/ 2 at night ?? Unchanged Cholecalciferol (Vitamin D3 1000 intl units oral capsule) 1 capsule Oral Daily Tomorrow morning Unchanged DiphenhydrAMINE (Jessi-Dryl 25 mg oral tablet) 1 tab(s) Oral Every 8 hours as needed for as needed for itching As needed Unchanged Doxepin (doxepin 25 mg oral capsule) 1 capsule Oral Daily at Bedtime Tonight before bed Unchanged dulaglutide (Trulicity Pen 1.5 mg/ 0.5 mL subcutaneous solution) 0.5 Milliliter Subcutaneous Injection Every week Unchanged Durable Medical Equipment (Cane) See instructions cane ?? Unchanged Famotidine (famotidine 40 mg oral tablet) 1 tab(s) Oral Daily at Bedtime Unchanged Fluticasone (Flovent 110 mcg Inhaler HFA) 1 inhalation Inhalation Twice a day Tonight before bed Unchanged Insulin Glargine (Lantus Solostar Pen 100 units/ mL subcutaneous solution) 20 unit(s) Subcutaneous Injection Daily at Bedtime Unchanged Losartan (losartan 25 mg oral tablet) 2 tab(s) Oral Daily Tomorrow morning Unchanged Metformin (metFORMIN 1000 mg oral tablet) 1 tab(s) Oral Twice a day Tomorrow morning Unchanged Multivitamin With Minerals (multivitamin with minerals Multiple Vitamins with Minerals oral tablet) 1 tab(s) Oral Daily Tomorrow morning Unchanged Thyroid Desiccated ([place] Thyroid 60 mg oral tablet) 1 tab(s) Oral Daily Tomorrow morning Unchanged Topiramate (topiramate 100 mg oral capsule, extended release) 1 capsule Oral Daily Tomorrow morning [facility] Information [facility]: [address], [place] [id number] [phone] ?? What How Much When Comments Stop Taking Fluoxetine (FLUoxetine (Eqv-Prozac) 20 mg oral tablet) 2 tab(s) Oral Daily Prescription Given During Visit Oxycodone (oxyCODONE 5 mg oral tablet) - 5 mg, By Mouth, Every 6 hours, # 12 tablet, 0 Refills, [facility], [address] [place] [phone]?? Laboratory Results Below is a partial list of the most recent Laboratory test results done prior to this discharge. You may have had other tests and procedures not included in this list. Please discuss all test resultswith your provider. Est Creatinine Clearance - 89.55 mL/min (10/08/2023) BUN (10/11/2023) ???BUN - 4 mg/dL CBC w/ Differential (10/11/2023) ???WBC - 7.0 k/mm3???RBC - 3.67 m/mm3???Hgb - 10.2 Gm/dL???Hct - 30.7 %???MCV - 83.7 femtoliters???MCH - 27.8 pg???MCHC - 33.2 g/dL???Platelet Count - 236 k/mm3???RDW-SD - 37.2 femtoliters???MPV - 9.7 femtoliters???Nucleated RBC (Automated) - 0.0 #/100 WBC'S???Abs. NRBC - 0.0 k/mm3???Abs. Neut - 4.0 k/mm3???Abs. Lymph - 2.0 k/mm3???Abs. Hopkins - 0.5 k/mm3???Abs. Eo - 0.4 k/mm3???Abs. Baso - 0.0 k/mm3???Neut % - 57.6 %???Lymph % - 28.3 %???Hopkins % - 7.0 %???Eos % - 6.1 %???Baso % - 0.4 %???Imm Gran- 0.6 %???Abs. Imm Gran - 0.0 k/mm3 Comprehensive Metabolic Panel (10/05/2023) ???Sodium - 138 mmol/L???Potassium - 4.3 mmol/L???Chloride - 104 mmol/L???Bicarbonate Level - 23 mmol/L???Anion Gap - 11???Glucose Level - 239 mg/dL???BUN - 12 mg/dL???Creatinine-Blood - 0.6 mg/dL???Estimated GFR Creatinine - 110 ML/MIN/1.73 M2???Calcium - 9.6 mg/dL???Protein, Total - 6.7 Gm/dL???Al bumin - 4.2 Gm/dL???AG Ratio - 1.7???Alkaline Phosphatase - 94 units/L???AST (SGOT) - 14 units/L???ALT (SGPT) - 26 units/L???Bilirubin, Total - 0.3 mg/dL Creatinine (10/11/2023) ???Creatinine-Blood - 0.6 mg/dL???Estimated GFR Creatinine - 110 ML/MIN/1.73 M2 Electrolytes (10/09/2023) ???Sodium - 140 mmol/L???Potassium - 3.7 mmol/L???Chloride - 100 mmol/L???Bicarbonate Level - 22 mmol/L???Anion Gap - 18 GLUCOSE POC (10/11/2023) ???Glucose, POC - 206 mg/dL Hold Blue Top Tube (10/05/2023) ???Hold Blue Top - SPECIMEN DISCARDED AFTER 4 HOURS. HOLD GEL TUBE (10/09/2023) ???Hold Gel Top - SPECIMEN DISCARDED AFTER 1 WEEK HOLD LAVENDER TUBE (10/09/2023) ???Hold Lavender Top - SPECIMEN DISCARDED AFTER 24 HOURS. Ionized Calcium (10/11/2023) ???Calcium, Ionized pH Corrected - 1.22 mmol/L Lactate Level (10/07/2023) ???Lactate - 1.3 mmol/L Lactic Acid Level (10/05/2023) ???Lactate - 1.5 mmol/L Lipase (10/05/2023) ???Lipase - 21 units/L Lytes (10/11/2023) ???Sodium - 142 mmol/L???Potassium - 3.3 mmol/L???Chloride - 105 mmol/L???Bicarbonate Level - 27 mmol/L???Anion Gap - 10 Magnesium Level (10/11/2023) ???Magnesium - 1.9 mg/dL Phosphorus Level (10/11/2023) ???Phosphorus - 2.4 mg/dL Serum Qualitative (10/05/2023) ??? Serum Qual - NEGATIVE PTT (10/11/2023) ???APTT - 69.8 seconds Immunizations This Visit Not Given Vaccine Commentsinfluenza [...] screening colonoscopy?? Encounter for screening colonoscopy for [id number] patient?? Endometriosis?? Fibromyalgia, hx of, says gabapenin [...] Educational Leaflet Providered with your Discharge Instructions. Oxycodone Oral Tablet?? Small Bowel Obstruction?? Valuables and Belongings I fully understand and agree that [facility] accepts no responsibility for all my personal [...] patient Date for Pt to Sign Valuables/Belongings: 10/06/23 04:13:00 ?? Other Discharge Information ? Pulmonary Rehab Status?? Pulmonary Rehab Discharge Status?? Respiratory Rate: 19 br/min ? Common Emergency Awareness Tips IS [...] are strongly encouraged to quit. Please call [facility] [employer] [facility] at [phone] or [phone] ([phone]) or log in to [email or web address] for referrals to smoking cessation programs. ?? 033 Suicide & Crisis Lifeline is available 03/04 if you or someone you know needs to find a reason to keep living. By calling 682 you'll be connected to a skilled, trained counselor at a crisis center in your area. INPATIENT DISCHARGE INSTRUCTIONS SIGNATURE PAGE GREYSON FOLEY Location:[facility] Registration Date and Time:10/05/2023 21:28 EST Primary Care Physician: Ken VILLELA , Tyesha, Attending Physician: Malvin Nuno MD, GREYSON WATTERS, have received the above patient education materials/instructions and have verbalized understanding. If ambulance or transport services are being used I further acknowledge being given a choice of service. ?? If you need to contact me, please call me at this number: . Patient/Flatwork Washer Name: Patient/Flatwork Washer Signature: Relationship to Patient: Witness Name/Signature: Date: * Tamra Munoz NP: PERFORM Event Display: Patient Education Leaflets Authored Date: [id number] Oxycodone Oral Tablet ?? [id number] Oxycodone Oral Tablet Brands: Roxicodone Uses For pain. ?? Instructions This medicine may be taken with or without food. Swallow with a full glass (8 oz) of water unless your doctor gives you different instructions. Store at room temperature away from heat, light, and moisture. Do not keep in the bathroom. Please ask your doctor, nurse, or pharmacist how to discard unused medicines safely. To reduce constipation, eat high fiber foods, drink plenty of water and exercise. Avoid grapefruit juice while on this medicine. Drug interactions can change how medicines work or increase risk for side effects. Tell your healthcare providers about all medicines taken. Include prescription and doga-jhs-zbibefc medicines, vitamins, and herbal medicines. Speak with your doctor or pharmacist before starting or stopping any medicine. Tell your doctor if symptoms do not get better or if they get worse. ?? Cautions This medicine has an opioid. Opioids help many people but may cause addiction, especially if used for a long time. The addiction risk is higher if you have a substance use disorder (overuse of or addiction to drugs or alcohol). Ask your doctor about the benefits and risks. Ask your doctor or pharmacist if you should have naloxone on hand to treat opioid overdose. Teach your family or household members about the signs of an opioid overdose and how to treat it. If you stop this medicine suddenly after using it for a long time, you may have withdrawal. Your doctor may slowly lower your dose before stopping it. Tell your doctor right away if you have symptoms, such as unusual sweating, watering eyes, runny nose, chills, diarrhea, yawning, muscle aches, restlessness, anxiety, trouble sleeping, or thoughts of suicide. Tell your doctor and pharmacist if you ever had an allergic reaction to a medicine. Do not use the medication any more than instructed. If possible, avoid using with alcohol, marijuana, or other medicines that can cause dizziness or drowsiness. These include allergy/cold products, muscle relaxers, sleep aids, and pain relievers. Your ability to stay alert or to react quickly may be impaired by this medicine. Do not drive or operate machinery until you know how this medicine will affect you. This medicine passes into breast milk. Ask your doctor before . This medicine can hurt a new baby in the womb. If you become while on this medicine, tell your doctor immediately. Your doctor may switch you to a different medicine. This medicine should be used with caution in patients with breathing difficulties. Call your doctor right away if you notice slow or shallow breathing. Do not share this medicine with anyone who has not been prescribed this medicine. Some patients have serious side effects from this medicine. Ask your pharmacist to show you the information from the Food and Drug Administration (FDA) and discuss it with you. ?? Side Effects The following is a list of some common side effects from this medicine. Please speak with your doctor about what you should do if you experience these or other side effects. ??? decreased appetite ??? constipation ??? dizziness or drowsiness ??? lightheadedness ??? nausea and vomiting If you have any of the following side effects, you may be getting too much medicine. Please contactyour doctor to let them know about these side effects. ??? confusion ??? fainting ??? unusual or unexplained tiredness or weakness ??? difficulty or discomfort urinating Call your doctor or get medical help right away if you notice any of these more serious side effects: ??? agitated feeling or trouble sleeping ??? decreased awareness or responsiveness ??? breathing interruption during sleep ??? shallow, irregular breathing ??? changes in memory, mood, or thinking ??? hallucinations (unusual thoughts, seeing or hearing things that are not real) ??? seizures ??? severe stomach or bowel pain ??? weight loss A few people may have an allergic reaction to this medicine. Symptoms can include difficulty breathing, skin rash, itching, swelling, or severe dizziness. If you notice any of these symptoms, seek medical help quickly. ?? Extra Please speak with your doctor, nurse, or pharmacist if you have any questions about this medicine. ?? [email or web address] IMPORTANT NOTE: This document tells you briefly how to take your medicine, but it does not tell youall there is to know about it. Your doctor or pharmacist may give you other documents about your medicine. Please talk to them if you have any questions. Always follow their advice. There is a more complete description of this medicine available in Norwegian. Scan this code on your smartphone or tablet or use the web address below. You can also ask your pharmacist for a printout. If you have any questions, please ask your pharmacist. The display and use of this drug information is subject to Terms of Use. Copyright(c) 2022 [employer]. ?? [employer]. All rights reserved. This information is not intended as a substitute for professional medical care. Always follow your healthcare professional's instructions. ?? * Alexander JERONIMO, Tamra Grossman: PERFORM Event Display: Patient Education Leaflets Authored Date: [id number] Small Bowel Obstruction ?? 27571 Small Bowel Obstruction A??small bowel obstruction??occurs when part or all of the small intestine (bowel) is blocked. As aresult, digestive contents can???t move through the bowel and out of the body correctly. Treatment is needed right away to remove the blockage. This can ease painful symptoms. It can also prevent serious problems, such as tissue or bursting (rupture) of the small bowel. Without treatment, a small bowel obstruction can be fatal. Small bowel obstruction can lead to tissue damage and even tissue . Causes of small bowel obstruction A small bowel obstruction can be caused by: ??? Scar tissue (adhesions). ??These may form after belly (abdominal) surgery or an infection. ??? Hernia. A hernia is when an organ pushes through a weak spot or tear in the abdomen wall. Part of the small bowel can push out and be seen as a bulge under the belly.??Hernias can also occur internally. ??? Certain health problems. ??These include when part of the bowel slides inside another part (intussusception). Other causes include irritable bowel disease such as Crohn???s disease, and inflammation and sores in the intestine (ulcerative colitis). ??? Abnormal tissue growths (tumors). ??These can form on the inside or outside of the small bowel. They are usually due to cancer. ?? Symptoms of small bowel obstruction Common symptoms include: ??? Belly cramping and pain ??? Belly swelling and bloating ??? Upset stomach (nausea) and vomiting ??? Can't??pass gas ??? Can't pass stool (constipation) ??? Diarrhea ?? Diagnosing small bowel obstruction Your provider will ask about your symptoms and health history. You???ll also have a physical exam. Tests may also be done to confirm the problem. These can include: ??? Imaging tests.??These provide pictures of the small bowel. Common tests include X-rays and a CT scan. ??? Blood tests.??These check for infection and other problems, such as excess fluid loss (dehydration). ??? Upper GI (gastrointestinal) series with a small bowel follow-through. ??This test takes X-rays of the upper digestive tract from the mouth through the small bowel. An X-ray dye (contrast fluid) is used. The dye coats the inside of your upper digestive tract so it will show up clearly on X-rays. ?? Treating small bowel obstruction Treatment takes place in a hospital. As part of your care, the following may be done: ??? No food or drink is given by mouth. This allows your bowels to rest. ??? An IV (intravenous) line is placed in a vein in your arm or hand. The IV line is used to give fluids and medicines. These may be needed to ease pain, nausea, and other symptoms. They may also be needed to treat or prevent infections. ??? A soft, thin, flexible tube (nasogastric tube) is inserted through your nose and into your stomach. The tube is used to remove extra gas and fluid in your stomach so that the bowels can rest. This helps ease symptoms such as pain and swelling. ??? In some cases, surgery is done. This may be neededif the small bowel is almost or totally blocked, if symptoms continue even after treatment, or if there is a hole in the bowel (bowel perforation). During surgery, the blockage is removed. Parts of the bowel may also be removed if there is tissue . Other repair may be done as well, depending on what caused the blockage. Your healthcare provider will give you more information about surgery, if needed. ??? You???ll be watched closely in the hospital until your symptoms improve. Your providerwill tell you when you can go home. ?? Long-term concerns?? After treatment, most people recover with no lasting effects. If a long part of the bowel is removed, there is a greater chance for lifelong digestive problems. Bowel movements may become irregular. Work with your provider to learn the best ways to manage any symptoms you may have, and to protect your health. ?? When to call your healthcare provider Call your provider right away or seek immediate medical care if you have any of the following: ??? Severe pain (call 911) ??? Belly swelling or cramping that won???t go away ??? Can???t pass stool orgas ??? Nausea or vomiting (especially if the vomit looks or smells like stool) ?? Last Reviewed Date: 2021 ?? 2616-6217 [employer]. All rights reserved. This information is not intended as a substitute for professional medical care. Always follow your healthcare professional's instructions. ?? Patient Care team information Care Team Personnel Name: Yana Rogers RN Position: [facility] ED RN W/OE and Tasks Member Role: Primary Care Nurse Name: Kinjal Vivar RN Position: [facility] RN Member Role: Primary Care Nurse Name: Augusta Cespedes RN Position: [facility] RN Member Role: Primary Care Nurse Name: Dedra Syed RN Position: [facility] RN Member Role: Primary Care Nurse Name: Kyra Lockhart RN Position: [facility] RN Member Role: Primary Care Nurse Name: Jill Allen RN Position: [facility] RN Member Role: Primary Care Nurse Name: Donna Beltre RN Position: [facility] RN Member Role: Primary Care Nurse Name: Carmita Canas RN Position: [facility] Rad RN Member Role: Primary Care Nurse Name: Jolene Bruner RN Position: [facility] RN Member Role: Primary Care Nurse Name: Melissa Urias RN Position: [facility] RN Member Role: Primary Care Nurse Name: Mira Prieto RN Position: [facility] RN Member Role: Primary Care Nurse Name: Argenis Scruggs RN Position: [facility] ED RN W/OE and Tasks Member Role: Primary Care Nurse Name: Ada Harris RN Position: [facility] RN Member Role: Primary Care Nurse Name: Radha Montes De Oca RN Position: [facility] RN Member Role: Primary Care Nurse Name: Radha Dick LPN Position: [facility] RN Member Role: Primary Care Nurse Name: Mira Rajan RN Position: [facility] SN RN Member Role: Primary Care Nurse Name: Leny Rg RN Position: [facility] RN Member Role: Primary Care Nurse Name: Merly Shin RN Position: [facility] RN Member Role: Primary Care Nurse Name: Anita De Jesus RN Position: [facility] ED RN W/OE and Tasks Member Role: Primary Care Nurse Name: Suzi Cowan RN Position: [facility] RN Member Role: Primary Care Nurse Name: Rebeka Ontiveros RN Position: [facility] RN Member Role: Primary Care Nurse Name: Jeremiah Al RN Position: [facility] SN RN Member Role: Primary Care Nurse Name: Regine Guerin RN Position: [facility] RN Member Role: Primary Care Nurse Name: Jocelyn Cristobal RN Position: [facility] SN RN Member Role: Primary Care Nurse Name: Apolonia Easton RN Position: [facility] RN Supv Member Role: Primary Care Nurse Name: Eulogio Enciso RN Position: [facility] RN Member Role: Primary Care Nurse Name: Kamala Abdi RN Position: [facility] RN Member Role: Primary Care Nurse Name: Aquilino Sarah RN Position: [facility] ED RN W/OE and Tasks Member Role: Primary Care Nurse Name: Stephanie Milian RN Position: [facility] SN RN Member Role: Primary Care Nurse Name: Concepcion Mondragon RN Position: [facility] RN Member Role: Primary Care Nurse Name: Nell Stephenson Position: [facility] RN Member Role: Primary Care Nurse Name: Marcia Kuhn RN Position: [facility] RN Member Role: Primary Care Nurse Name: Bradford Shah RN Position: [facility] RN Member Role: Primary Care Nurse Name: Adrián Wilcox RN Position: [facility] RN Member Role: Primary Care Nurse Name: Olvin Fontanez Position: [facility] RN Member Role: Primary Care Nurse Name: Ada Aleman RN Position: [facility] ED RN W/OE and Tasks Member Role: Primary Care Nurse Name: Sharlene Macias Position: [facility] Outreach Member Role: Lifetime Consulting Physician Name: Tyesha Rogers MD Position: [facility] Outreach Member Role: PCP Address: Address: [address] [place] [id number]- Name: La Miranda RN Position: [facility] Youth Program Director Member Role: Primary Care Nurse Name: Sunita Anthony RN Position: [facility] RN Member Role: Primary Care Nurse Name: Glendy Gandara RN Position: [facility] SN RN Member Role: Primary Care Nurse Name: Melanie Martinez RN Position: [facility] Onco RN Member Role: Primary Care Nurse Name: Rima Soliz RN Position: [facility] Youth Program Director Member Role: Primary Care Nurse Name: Benjamin Cheatham MD Position: [facility] Physician - [facility] Member Role: Lifetime Consulting Physician Address: Address: [address] [place] [id number] [place] Care Team Related Persons Name: JOSE ROBLEDO Address: home [address] [place] [address] Name: YOHANA FOLEY Address: home [place] [id number]
--- OUTSIDE RECORDS SUMMARY | 2024-05-28 13:56 | XMS_ITS | Continuity of Care Document ---
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 Name Role Phone Ken VILLELA, Tyesha Primary Care Physician [phone] Encounter [facility] [place] Date(s): 11/21/23 - 12/21/23 [facility] [address] [place] [address]- Attending Physician: Haley Lorenzo Admitting Physician: AdmtrHaley [...] 10:48:25 EST Start Date: 07/29/19 Status: Ordered [place] Thyroid 60 mg oral tablet 60 mg, [...] 0 Refills, Maintenance, 10/29/23 12:25:00 EST, Injection, [facility] 3, Partial fill upon patient [...] Confirmed Active Encounter for screening colonoscopy for hxj-vweq-[id number] patient Confirmed Active Encounter for screening colonoscopy [...] 01/14, wrist cutting 9-See MRI done at [facility] 12-09-2015 10-T4-T8 disc bulging with mild left neural foraminal narrowing. MRI 01-29-16 (scanned-done at [facility]) 11-by ex partner, (father of children) Social History Social History Type Response Smoking Status 5-9 cigarettes (betw een 1/4 to 1/2 pack)/day in last 30 days entered on: 02/03/22 Sex Patient Care team information Care Team Personnel Name: Yana Rogers RN Position: [facility] ED RN W/OE and Tasks Member Role: Primary Care Nurse Name: Kinjal Vivar RN Position: [facility] RN Member Role: Primary Care Nurse Name: Augusta Cespedes RN Position: [facility] RN Member Role: Primary Care Nurse Name: Dedra Syed RN Position: [facility] RN Member Role: Primary Care Nurse Name: Kyra Lockhart RN Position: [facility] RN Member Role: Primary Care Nurse Name: Jill Allen RN Position: [facility] RN Member Role: Primary Care Nurse Name: Donna Beltre RN Position: [facility] RN Member Role: Primary Care Nurse Name: Carmita Canas RN Position: [facility] Rad RN Member Role: Primary Care Nurse Name: Jolene Bruner RN Position: [facility] RN Member Role: Primary Care Nurse Name: Melissa Urias RN Position: [facility] RN Member Role: Primary Care Nurse Name: Mira Prieto RN Position: [facility] RN Member Role: Primary Care Nurse Name: Argenis Scruggs RN Position: [facility] ED RN W/OE and Tasks Member Role: Primary Care Nurse Name: Ada Harris RN Position: S RN Member Role: Primary Care Nurse Name: Radha Dick LPN Position: [facility] RN Member Role: Primary Care Nurse Name: Mira Rajan RN Position: [facility] RN Member Role: Primary Care Nurse Name: Leny Rg RN Position: [facility] RN Member Role: Primary Care Nurse Name: Merly Shin RN Position: [facility] RN Member Role: Primary Care Nurse Name: Anita De Jesus RN Position: [facility] ED RN W/OE and Tasks Member Role: Primary Care Nurse Name: Suzi Cowan RN Position: [facility] RN Member Role: Primary Care Nurse Name: Rebeka Ontiveros RN Position: [facility] RN Member Role: Primary Care Nurse Name: Jeremiah Al RN Position: [facility] SN RN Member Role: Primary Care Nurse Name: Konstantin Whittaker RN Position: [facility] RN Member Role: Primary Care Nurse Name: Regine Guerin RN Position: [facility] RN Member Role: Primary Care Nurse Name: Jocelyn Cristobal RN Position: [facility] SN RN Member Role: Primary Care Nurse Name: Apolonia Easton RN Position: [facility] RN Supv Member Role: Primary Care Nurse Name: Eulogio Enciso RN Position: [facility] RN Member Role: Primary Care Nurse Name: Kamala Abdi RN Position: [facility] RN Member Role: Primary Care Nurse Name: Aquilino Sarah RN Position: [facility] ED RN W/OE and Tasks Member Role: Primary Care Nurse Name: Stephanie Milian RN Position: [facility] SN RN Member Role: Primary Care Nurse Name: Concepcion Mondragon RN Position: [facility] RN Member Role: Primary Care Nurse Name: Nell Stephenson Position: [facility] RN Member Role: Primary Care Nurse Name: Marcia Kuhn RN Position: [facility] RN Member Role: Primary Care Nurse Name: Bradford Shah RN Position: [facility] RN Member Role: Primary Care Nurse Name: Adrián Wilcox RN Position: [facility] RN Member Role: Primary Care Nurse Name: Olvin Fontanez Position: [facility] RN Member Role: Primary Care Nurse Name: Ada Aleman RN Position: [facility] ED RN W/OE and Tasks Member Role: Primary Care Nurse Name: Sharlene Macias Position: [facility] Outreach Member Role: Lifetime Consulting Physician Name: Tyesha Rogers MD Position: [facility] Outreach Member Role: PCP Address: Address: [address] [place] [id number] Name: La Miranda RN Position: [facility] Hospital Dye Maker Member Role: Primary Care Nurse Name: Sunita Anthony RN Position: [facility] RN Member Role: Primary Care Nurse Name: Glendy Gandara RN Position: [facility] SN RN Member Role: Primary Care Nurse Name: Michelle KAN, Melanie Rooney Position: [facility] Onco RN Member Role: Primary Care Nurse Name: Rima Soliz RN Position: [facility] Hospital Dye Maker Member Role: Primary Care Nurse Name: Benjamin Cheatham MD Position: [facility] Physician - Behavioral Health Member Role: Lifetime Consulting Physician Address: Address: [address] [place] [address]- [place] Care Team Related Persons Name: JOSE ROBLEDO Address: home [address] [place] [address] Name: YOHANA FOLEY Address: [place] [address]
--- OUTSIDE RECORDS SUMMARY | 2024-05-28 13:57 | XMS_ITS | Continuity of Care Document ---
Author Organization [facility] Address [address] [place] [address]- Care Team Providers Care Welfare Analyst Name Role Phone Ken VILLELA, Tyesha Primary Care Physician Encounter [facility] [place] Date(s): 01/02/24 - 02/01/24 [facility] [address] [place] [address]- Attending Physician: Haley Lorenzo Admitting Physician: Admtr, [...] 10:48:25 EST Start Date: 07/29/19 Status: Ordered [place] Thyroid 60 mg oral tablet 60 mg, [...] 0 Refills, Maintenance, 10/29/23 12:25:00 EST, Injection, [facility] 3, Partial fill upon patient request if the prescription is for a schedule II opioid drug., 158, cm, 10/29/... Start Date: 10/29/23 Stop Date: 11/28/23 Status: [...] Confirmed Active Encounter for screening colonoscopy for adi-yviy-eftm patient Confirmed Active Encounter for screening colonoscopy [...] cutting 9-See MRI done at [facility] 12-09-2015 10-T4-T8 disc bulging with mild left neural foraminal narrowing. MRI 01-29-16 (scanned-done at [facility]) 11-by ex partner, (father of children) [...] Team Personnel Name: Yana Rogers RN Position: [facility] ED RN W/OE and Tasks Member Role: Primary Care Nurse Name: Kinjal Vivar RN Position: [facility] RN Member Role: Primary Care Nurse Name: Augusta Cespedes RN Position: [facility] RN Member Role: Primary Care Nurse Name: Dedra Syed RN Position: [facility] RN Member Role: Primary Care Nurse Name: Kyra Lockhart RN Position: [facility] RN Member Role: Primary Care Nurse Name: Jill Allen RN Position: [facility] RN Member Role: Primary Care Nurse Name: Donna Beltre RN Position: [facility] RN Member Role: Primary Care Nurse Name: Carmita Canas RN Position: [facility] Rad RN Member Role: Primary Care Nurse Name: Jolene Bruner RN Position: [facility] RN Member Role: Primary Care Nurse Name: Melissa Urias RN Position: S RN Member Role: Primary Care Nurse Name: Mira Prieto RN Position: [facility] RN Member Role: Primary Care Nurse Name: Argenis Scruggs RN Position: [facility] ED RN W/OE and Tasks Member Role: Primary Care Nurse Name: Ada Harris RN Position: [facility] RN Member Role: Primary Care Nurse Name: Mira Rajan RN Position: [facility] SN RN Member Role: Primary Care Nurse Name: Leny Rg RN Position: [facility] RN Member Role: Primary Care Nurse Name: Nola Bowman RN Position: [facility] SN RN Member Role: Primary Care Nurse Name: Merly Shin RN Position: [facility] RN Member Role: Primary Care Nurse Name: Anita De Jesus RN Position: [facility] ED RN W/OE and Tasks Member Role: Primary Care Nurse Name: Suzi Cowan RN Position: [facility] RN Member Role: Primary Care Nurse Name: Rebeka Ontiveros RN Position: [facility] RN Member Role: Primary Care Nurse Name: Jeremiah Al RN Position: [facility] SN RN Member Role: Primary Care Nurse Name: Konstantin Whittaker RN Position: [facility] RN Member Role: Primary Care Nurse Name: Regine Guerin RN Position: [facility] RN Member Role: Primary Care Nurse Name: Jocelyn Cristobal RN Position: [facility] SN RN Member Role: Primary Care Nurse Name: Apolonia Easton RN Position: [facility] RN Supv Member Role: Primary Care Nurse Name: Eulogio Enciso RN Position: [facility] RN Member Role: Primary Care Nurse Name: Kamala Abdi RN Position: [facility] RN Member Role: Primary Care Nurse Name: Aquilino Sarah RN Position: [facility] ED RN W/OE and Tasks Member Role: Primary Care Nurse Name: Stephanie Milian RN Position: [facility] AMB Nurse Member Role: Primary Care Nurse Name: Concepcion Mondragon RN Position: [facility] RN Member Role: Primary Care Nurse Name: Nell Stephenson Position: [facility] RN Member Role: Primary Care Nurse Name: Marcia Kuhn RN Position: [facility] RN Member Role: Primary Care Nurse Name: Bradford Shah RN Position: [facility] RN Member Role: Primary Care Nurse Name: Adrián Wilcox RN Position: [facility] RN Member Role: Primary Care Nurse Name: Olvin Fontanez Position: [facility] RN Member Role: Primary Care Nurse Name: Ada Aleman RN Position: [facility] ED RN W/OE and Tasks Member Role: Primary Care Nurse Name: Sharlene Macias Position: [facility] Outreach Member Role: Lifetime Consulting Physician Name: Tyesha Rogers MD Position: [facility] Outreach Member Role: PCP Address: Address: [address] [place] [address]- [place] Name: Ruben RNLa Position: [facility] Local Superintendent Member Role: Primary Care Nurse Name: Sunita Anthony RN Position: [facility] RN Member Role: Primary Care Nurse Name: Glendy Gandara RN Position: [facility] SN RN Member Role: Primary Care Nurse Name: Melanie Martinez RN Position: [facility] Onco RN Member Role: Primary Care Nurse Name: Rima Soliz RN Position: [facility] Local Superintendent Member Role: Primary Care Nurse Name: Benjamin Cheatham MD Position: [facility] Physician - Behavioral Health Member Role: Lifetime Consulting Physician Address: Address: [address] [place] [address]- Care Team Related Persons Name: JOSE ROBLEDO Address: home [address] [place] [address] Name: YOHANA FOLEY Address: [place] [address]
--- OUTSIDE RECORDS SUMMARY | 2024-05-28 13:57 | XMS_ITS | Continuity of Care Document ---
Author Organization [facility] Address [address] [place] [address]- Care Team Providers Care Core Maker Name Role Phone Ken VILLELA, Tyesha Primary Care Physician Encounter [facility] [place] Date(s): 06/21/23 - 07/21/23 [facility] [address] [place] [address] Attending Physician: AdmHaley liriano Admitting Physician: AdmtrHaley Referring Physician: Admtr, Ar8 [...] 10:48:25 EST Start Date: 07/29/19 Status: Ordered [place] Thyroid 60 mg oral tablet 60 mg, [...] Confirmed Active Encounter for screening colonoscopy for aol-ciae-bhvd patient Confirmed Active Encounter for screening colonoscopy [...] LVH. ECHO 02-08-12 5MRI 08-20-15 ([facility]-scanned): disc desiccatios, disc bulges and [...] cutting 9-See MRI done at [facility] 12-09-2015 10-T4-T8 disc bulging with mild left neural foraminal narrowing. MRI 01-29-16 (scanned-done at [facility]) 11-by ex partner, (father of children) Social History Social History Type Response Smoking Status 5-9 cigarettes (betw een 1/4 to 1/2 pack)/day in last 30 days entered on: 02/03/22 Sex Patient Care team information Care Team Personnel Name: Yana Rogers RN Position: [facility] ED RN W/OE and Tasks Member Role: Primary Care Nurse Name: Kinjal Vivar RN Position: [facility] RN Member Role: Primary Care Nurse Name: Augusta Cespedes RN Position: [facility] RN Member Role: Primary Care Nurse Name: Dedra Syed RN Position: [facility] RN Member Role: Primary Care Nurse Name: Kyra Lockhart RN Position: [facility] RN Member Role: Primary Care Nurse Name: Jill Allen RN Position: [facility] RN Member Role: Primary Care Nurse Name: Donna Beltre RN Position: [facility] RN Member Role: Primary Care Nurse Name: Carmita Canas RN Position: [facility] Rad RN Member Role: Primary Care Nurse Name: Jolene Bruner RN Position: [facility] RN Member Role: Primary Care Nurse Name: Melissa Urias RN Position: [facility] RN Member Role: Primary Care Nurse Name: Argenis Scruggs RN Position: [facility] ED RN W/OE and Tasks Member Role: Primary Care Nurse Name: Ada Harris RN Position: [facility] RN Member Role: Primary Care Nurse Name: Radha Montes De Oca RN Position: [facility] RN Member Role: Primary Care Nurse Name: Mira Rajan RN Position: [facility] SN RN Member Role: Primary Care Nurse Name: Anita De Jesus RN Position: [facility] ED RN W/OE and Tasks Member Role: Primary Care Nurse Name: Suzi Cowan RN Position: [facility] RN Member Role: Primary Care Nurse Name: Rebeka Ontiveros RN Position: [facility] RN Member Role: Primary Care Nurse Name: Jeremiah Al RN Position: [facility] SN RN Member Role: Primary Care Nurse Name: Regine Guerin RN Position: [facility] RN Member Role: Primary Care Nurse Name: Jocelyn Cristobal RN Position: [facility] SN RN Member Role: Primary Care Nurse Name: Apolonia Easton RN Position: [facility] RN Supv Member Role: Primary Care Nurse Name: Estefania Bhatti RN Position: [facility] RN Member Role: Primary Care Nurse Name: Eulogio nEciso RN Position: [facility] RN Member Role: Primary Care Nurse Name: Kamala Abdi RN Position: [facility] RN Member Role: Primary Care Nurse Name: Aquilino Sarah RN Position: [facility] SN RN Member Role: Primary Care Nurse Name: Stephanie Milian RN Position: [facility] SN RN Member Role: Primary Care Nurse Name: Concepcion Mondragon RN Position: [facility] RN Member Role: Primary Care Nurse Name: Marcia Kuhn RN Position: [facility] RN Member Role: Primary Care Nurse Name: Adrián Wilcox RN Position: [facility] RN Member Role: Primary Care Nurse Name: Ada Aleman RN Position: [facility] ED RN W/OE and Tasks Member Role: Primary Care Nurse Name: Sharlene Macias Position: [facility] Outreach Member Role: Lifetime Consulting Physician Name: Tyesha Rogers MD Position: [facility] Outreach Member Role: PCP Address: Address: [address] [place] [address]- Name: La Miranda RN Position: [facility] Tdp Displays Analyst Member Role: Primary Care Nurse Name: Sunita Anthony RN Position: [facility] RN Member Role: Primary Care Nurse Name: Glendy Gandara RN Position: [facility] SN RN Member Role: Primary Care Nurse Name: Melanie Martinez RN Position: [facility] Onco RN Member Role: Primary Care Nurse Name: Rima Soliz RN Position: [facility] Tdp Displays Analyst Member Role: Primary Care Nurse Name: Benjamin Cheatham MD Position: [facility] Physician - [facility] Member Role: Lifetime Consulting Physician Address: Address: [address] [place] [id number]- Care Team Related Persons Name: MEENA JOSE Address: home [address] [place] [address] Name: YOHANA FOLEY Address: [place] [address]
--- OUTSIDE RECORDS SUMMARY | 2024-05-28 13:57 | XMS_ITS | Continuity of Care Document ---
Author Organization [facility] Address [address] [place] [address]- Care Team Providers Care Field Map Technician Name Role Phone Ken VILLELA, Tyesha Primary Care Physician Encounter [facility] [place] Date(s): 03/23/23 - 07/21/23 [facility] [address] [address] Attending Physician: Desi Hudson MD Admitting Physician: Desi Hudson MD Referring Physician: Mike JERONIMO, Adrián Gates Allergies, Adverse Reactions, Alerts Substance Reaction Severity [...] 10:48:25 EST Start Date: 07/29/19 Status: Ordered [place] Thyroid 60 mg oral tablet 60 mg, [...] Confirmed Active Encounter for screening colonoscopy for yyp-qwie-otek patient Confirmed Active Encounter for screening colonoscopy [...] Team Personnel Name: Yana Rogers RN Position: [facility] ED RN W/OE and Tasks Member Role: Primary Care Nurse Name: Kinjal Vivar RN Position: [facility] RN Member Role: Primary Care Nurse Name: Augusta Cespedes RN Position: [facility] RN Member Role: Primary Care Nurse Name: Dedra Syed RN Position: [facility] RN Member Role: Primary Care Nurse Name: Kyra Lockhart RN Position: [facility] RN Member Role: Primary Care Nurse Name: Jill Allen RN Position: [facility] RN Member Role: Primary Care Nurse Name: Donna Beltre RN Position: [facility] RN Member Role: Primary Care Nurse Name: Carmita Canas RN Position: [facility] Rad RN Member Role: Primary Care Nurse Name: Jolene Bruner RN Position: [facility] RN Member Role: Primary Care Nurse Name: Melissa Urias RN Position: [facility] RN Member Role: Primary Care Nurse Name: Argenis Scruggs RN Position: [facility] ED RN W/OE and Tasks Member Role: Primary Care Nurse Name: Ada Harris RN Position: [facility] RN Member Role: Primary Care Nurse Name: Radha Montes De Oca RN Position: [facility] RN Member Role: Primary Care Nurse Name: Mira Rajan RN Position: [facility] SN RN Member Role: Primary Care Nurse Name: Anita De Jesus RN Position: [facility] ED RN W/OE and Tasks Member Role: Primary Care Nurse Name: Suzi Cowan RN Position: [facility] RN Member Role: Primary Care Nurse Name: Rebeka Ontiveros RN Position: [facility] RN Member Role: Primary Care Nurse Name: Jeremiah Al RN Position: [facility] SN RN Member Role: Primary Care Nurse Name: Regine Guerin RN Position: [facility] RN Member Role: Primary Care Nurse Name: Jocelyn Cristobal RN Position: [facility] SN RN Member Role: Primary Care Nurse Name: Apolonia Easton RN Position: [facility] RN Supv Member Role: Primary Care Nurse Name: Estefania Bhatti RN Position: [facility] RN Member Role: Primary Care Nurse Name: Eulogio Enciso RN Position: [facility] RN Member Role: Primary Care Nurse Name: Kamala Abdi RN Position: [facility] RN Member Role: Primary Care Nurse Name: Aquilino Sarah RN Position: [facility] SN RN Member Role: Primary Care Nurse Name: Stephanie Milian RN Position: [facility] SN RN Member Role: Primary Care Nurse Name: Concepcion Mondragon RN Position: [facility] RN Member Role: Primary Care Nurse Name: Marcia Kuhn RN Position: [facility] RN Member Role: Primary Care Nurse Name: Adrián Wilcox RN Position: [facility] RN Member Role: Primary Care Nurse Name: Ada Aleman RN Position: [facility] ED RN W/OE and Tasks Member Role: Primary Care Nurse Name: Sharlene Macias Position: [facility] Outreach Member Role: Lifetime Consulting Physician Name: Tyesha Rogers MD Position: [facility] Outreach Member Role: PCP Address: Address: [address] [place] [id number]- Name: La Miranda RN Position: [facility] Fretted Instrument Repairer Member Role: Primary Care Nurse Name: Sunita Anthony RN Position: [facility] RN Member Role: Primary Care Nurse Name: Glendy Gandara RN Position: [facility] SN RN Member Role: Primary Care Nurse Name: Melanie Martinez RN Position: [facility] Onco RN Member Role: Primary Care Nurse Name: Rima Soliz RN Position: [facility] Fretted Instrument Repairer Member Role: Primary Care Nurse Name: Benjamin Cheatham MD Position: [facility] Physician - [facility] Member Role: Lifetime Consulting Physician Address: Address: [address] [place] [address]- Care Team Related Persons Name: MEENA JOSE Address: home [address] [place] [address] Name: YOHANA FOLEY Address: [place] [address]
--- OUTSIDE RECORDS SUMMARY | 2024-05-28 13:57 | XMS_ITS | Continuity of Care Document ---
Author Organization [facility] Address [address] [place] [address] [address] [place] [address]- Care Team Providers Care Shoe Salesman Name Role Phone Ken VILLELA, Tyesha Primary Care Physician [phone] Encounter [facility] Date(s): 10/11/23 - 11/25/[address] [place] [address]- Attending Physician: Yaakov VILLELA, Malvin Joshi Allergies, Adverse Reactions, Alerts Substance Reaction Severity [...] 10:48:25 EST Start Date: 07/29/19 Status: Ordered [place] Thyroid 60 mg oral tablet 60 mg, [...] 0 Refills, Maintenance, 10/29/23 12:25:00 EST, Injection, [facility], Partial fill upon patient request if [...] Confirmed Active Encounter for screening colonoscopy for [id number] patient Confirmed Active Encounter for screening colonoscopy [...] cutting 9-See MRI done at [facility] 12-09-2015 10-T4-T8 disc bulging with mild left neural foraminal narrowing. MRI 01-29-16 (scanned-done at [facility]) 11-by ex partner, (father of children) Social History Social History Type Response Smoking Status 5-9 cigarettes (betw een 1/4 to 1/2 pack)/day in last 30 days entered on: 02/03/22 Sex Patient Care team information Care Team Personnel Name: Yana Rogers RN Position: [facility] ED RN W/OE and Tasks Member Role: Primary Care Nurse Name: Kinjal Vivar RN Position: [facility] RN Member Role: Primary Care Nurse Name: Augusta Cespedes RN Position: [facility] RN Member Role: Primary Care Nurse Name: Dedra Syed RN Position: [facility] RN Member Role: Primary Care Nurse Name: Kyra Lockhart RN Position: [facility] RN Member Role: Primary Care Nurse Name: Jill Allen RN Position: [facility] RN Member Role: Primary Care Nurse Name: [place] Beltre RN Position: [facility] RN Member Role: Primary Care Nurse Name: Carmita Canas RN Position: [facility] Ayush RN Member Role: Primary Care Nurse Name: Jolene Bruner RN Position: [facility] RN Member Role: Primary Care Nurse Name: Melissa Urias RN Position: [facility] RN Member Role: Primary Care Nurse Name: Mira Prieto RN Position: [facility] RN Member Role: Primary Care Nurse Name: Argenis Scruggs RN Position: [facility] ED RN W/OE and Tasks Member Role: Primary Care Nurse Name: Ada Harris RN Position: [facility] RN Member Role: Primary Care Nurse Name: Radha Dick LPN Position: [facility] RN Member Role: Primary Care Nurse Name: Mira Rajan RN Position: [facility] RN Member Role: Primary Care Nurse Name: Leny Rg RN Position: S RN Member Role: Primary Care Nurse Name: Merly Shin RN Position: [facility] RN Member Role: Primary Care Nurse Name: Anita De Jesus RN Position: [facility] ED RN W/OE and Tasks Member Role: Primary Care Nurse Name: Suzi Cowan RN Position: [facility] RN Member Role: Primary Care Nurse Name: Rebeka Ontiveros RN Position: [facility] RN Member Role: Primary Care Nurse Name: Jeremiah Al RN Position: [facility] SN RN Member Role: Primary Care Nurse Name: Konstantin Whittaker RN Position: [facility] RN Member Role: Primary Care Nurse Name: Regine Guerin RN Position: [facility] RN Member Role: Primary Care Nurse Name: Jocelyn Cristobal RN Position: [facility] SN RN Member Role: Primary Care Nurse Name: Apolonia Easton RN Position: [facility] RN Supv Member Role: Primary Care Nurse Name: Eulogio Enciso RN Position: [facility] RN Member Role: Primary Care Nurse Name: Kamala Abdi RN Position: [facility] RN Member Role: Primary Care Nurse Name: Aquilino Sarah RN Position: [facility] ED RN W/OE and Tasks Member Role: Primary Care Nurse Name: Stephanie Milian RN Position: [facility] SN RN Member Role: Primary Care Nurse Name: Concepcion Mondragon RN Position: [facility] RN Member Role: Primary Care Nurse Name: Nell Stephenson Position: [facility] RN Member Role: Primary Care Nurse Name: Marcia Kuhn RN Position: [facility] RN Member Role: Primary Care Nurse Name: Bradford Shah RN Position: [facility] RN Member Role: Primary Care Nurse Name: Adrián Wilcox RN Position: [facility] RN Member Role: Primary Care Nurse Name: Olvin Fontanez Position: [facility] RN Member Role: Primary Care Nurse Name: Ada Aleman RN Position: [facility] ED RN W/OE and Tasks Member Role: Primary Care Nurse Name: Sharlene Macias Position: [facility] Outreach Member Role: Lifetime Consulting Physician Name: Tyesha Rogers MD Position: [facility] Outreach Member Role: PCP Address: Address: [address] [place] [id number] Name: La Miranda RN Position: [facility] Hospital Mining Captain Member Role: Primary Care Nurse Name: Sunita Anthony RN Position: [facility] RN Member Role: Primary Care Nurse Name: Glendy Gandara RN Position: [facility] SN RN Member Role: Primary Care Nurse Name: Michelle KAN, Melanie Rooney Position: [facility] Onco RN Member Role: Primary Care Nurse Name: Rima Soliz RN Position: [facility] Hospital Mining Captain Member Role: Primary Care Nurse Name: Benjamin Cheatham MD Position: [facility] Physician - [facility] Member Role: Lifetime Consulting Physician Address: Address: [address] [place] [address]- Care Team Related Persons Name: JOSE ROBLEDO Address: home [address] [place] [id number] Name: YOHANA FOLEY Address: [place] [address]
--- OUTSIDE RECORDS SUMMARY | 2024-05-28 13:58 | XMS_ITS | Continuity of Care Document ---
Author Organization [facility] Address [address] [place] [address]- Care Team Providers Care Helicopter Specialist Name Role Phone Ken VILLELA, Tyesha Primary Care Physician [phone] Encounter [facility] [place] [place] Date(s): 08/23/23 - 12/21/23 [facility] [address] [place] [address]- Attending Physician: Omar Danielle MD Admitting Physician: [...] 10:48:25 EST Start Date: 07/29/19 Status: Ordered [place] Thyroid 60 mg oral tablet 60 mg, [...] 0 Refills, Maintenance, 10/29/23 12:25:00 EST, Injection, [facility] 3, Partial fill upon patient request if [...] Confirmed Active Encounter for screening colonoscopy for [id number] patient Confirmed Active Encounter for screening colonoscopy [...] 01/14, wrist cutting 9-See MRI done at [facility] 12-09-2015 10-T4-T8 disc bulging with mild left neural foraminal narrowing. MRI 01-29-16 (scanned-done at [facility]) 11-by ex partner, (father of children) Social History Social History Type Response Smoking Status 5-9 cigarettes (betw een 1/4 to 1/2 pack)/day in last 30 days entered on: 02/03/22 Sex Patient Care team information Care Team Personnel Name: Yana Rogers RN Position: [facility] ED RN W/OE and Tasks Member Role: Primary Care Nurse Name: Kinjal Vivar RN Position: [facility] RN Member Role: Primary Care Nurse Name: Augusta Cespedes RN Position: [facility] RN Member Role: Primary Care Nurse Name: Dedra Syed RN Position: [facility] RN Member Role: Primary Care Nurse Name: Kyra Lockhart RN Position: [facility] RN Member Role: Primary Care Nurse Name: Jill Allen RN Position: [facility] RN Member Role: Primary Care Nurse Name: [place] Beltre RN Position: [facility] RN Member Role: Primary Care Nurse Name: Carmita Canas RN Position: [facility] Ayush RN Member Role: Primary Care Nurse Name: Jolene Bruner RN Position: [facility] RN Member Role: Primary Care Nurse Name: Melissa Urias RN Position: [facility] RN Member Role: Primary Care Nurse Name: Mira Prieto RN Position: [facility] RN Member Role: Primary Care Nurse Name: Argenis Scruggs RN Position: [facility] ED RN W/OE and Tasks Member Role: Primary Care Nurse Name: Ada Harris RN Position: S RN Member Role: Primary Care Nurse Name: Radha Dick LPN Position: [facility] RN Member Role: Primary Care Nurse Name: Mira Rajan RN Position: [facility] RN Member Role: Primary Care Nurse Name: Leny Rg RN Position: [facility] RN Member Role: Primary Care Nurse Name: Merly Shin RN Position: S RN Member Role: Primary Care Nurse Name: Anita De Jesus RN Position: [facility] ED RN W/OE and Tasks Member Role: Primary Care Nurse Name: Suzi Cowan RN Position: [facility] RN Member Role: Primary Care Nurse Name: Rebeka Ontiveros RN Position: [facility] RN Member Role: Primary Care Nurse Name: Jeremiah Al RN Position: [facility] SN RN Member Role: Primary Care Nurse Name: Konstantin Whittaker RN Position: [facility] RN Member Role: Primary Care Nurse Name: Regine Guerin RN Position: [facility] RN Member Role: Primary Care Nurse Name: Jocelyn Cristobal RN Position: [facility] SN RN Member Role: Primary Care Nurse Name: Apolonia Easton RN Position: [facility] RN Supv Member Role: Primary Care Nurse Name: Eulogio Enciso RN Position: [facility] RN Member Role: Primary Care Nurse Name: Kamala Abdi RN Position: [facility] RN Member Role: Primary Care Nurse Name: Aquilino Sarah RN Position: [facility] ED RN W/OE and Tasks Member Role: Primary Care Nurse Name: Stephanie Milian RN Position: [facility] SN RN Member Role: Primary Care Nurse Name: Concepcion Mondragon RN Position: [facility] RN Member Role: Primary Care Nurse Name: Nell Stephenson Position: [facility] RN Member Role: Primary Care Nurse Name: Marcia Kuhn RN Position: [facility] RN Member Role: Primary Care Nurse Name: Bradford Shah RN Position: [facility] RN Member Role: Primary Care Nurse Name: Adrián Wilcox RN Position: [facility] RN Member Role: Primary Care Nurse Name: Olvin Fontanez Position: [facility] RN Member Role: Primary Care Nurse Name: Ada Aleman RN Position: [facility] ED RN W/OE and Tasks Member Role: Primary Care Nurse Name: Sharlene Macias Position: [facility] Outreach Member Role: Lifetime Consulting Physician Name: Tyesha Rogers MD Position: [facility] Outreach Member Role: PCP Address: Address: [address] [place] [id number] Name: La Miranda RN Position: [facility] Hospital Document Processor Member Role: Primary Care Nurse Name: Sunita Anthony RN Position: [facility] RN Member Role: Primary Care Nurse Name: Glendy Gandara RN Position: [facility] SN RN Member Role: Primary Care Nurse Name: Michelle KAN, Melanie Rooney Position: [facility] Onco RN Member Role: Primary Care Nurse Name: Rima Soliz RN Position: [facility] Hospital Document Processor Member Role: Primary Care Nurse Name: Benjamin Cheatham MD Position: [facility] Physician - [facility] Member Role: Lifetime Consulting Physician Address: Address: [address] [place] [address]- [place] Care Team Related Persons Name: JOSE ROBLEDO Address: home [address] [place] [address] Name: YOHANA FOLEY Address: [place] [address]
--- OUTSIDE RECORDS SUMMARY | 2024-05-28 13:58 | XMS_ITS | Continuity of Care Document ---
Author Organization [facility] Address [address] [facility], [address] Floor, [address] [place] [address]- Care Team Providers Care Health Services Coordinator Name Role Phone Ken VILLELA, Tyesha Primary Care Physician [place] [facility] [place] - 07/27/23 [facility] [address], [address] [place] [id number] Attending Physician: Jerry Winkler MD Admitting Physician: Jerry Winkler MD Allergies, Adverse Reactions, [...] 10:48:25 EST Start Date: 07/29/19 Status: Ordered [place] Thyroid 60 mg oral tablet 60 mg, [...] Confirmed Active Encounter for screening colonoscopy for [id number] patient Confirmed Active Encounter for screening colonoscopy [...] LVH. ECHO 02-08-12 5MRI 08-20-15 ([facility]-scanned): disc desiccatios, disc bulges and mild [...] cutting 9-See MRI done at [facility] 12-09-2015 10-T4-T8 disc bulging with mild left neural foraminal narrowing. MRI 01-29-16 (scanned-done at [facility]) 11-by ex partner, (father of children) Social History Social History Type Response Smoking Status 5-9 cigarettes (betw een 09/14 to 09/12 pack)/day in last 30 days entered on: 02/03/22 Sex Patient Care team information Care Team Personnel Name: Yana Rogers RN Position: [facility] ED RN W/OE and Tasks Member Role: Primary Care Nurse Name: Kinjal Vivar RN Position: [facility] RN Member Role: Primary Care Nurse Name: Augusta Cespedes RN Position: [facility] RN Member Role: Primary Care Nurse Name: Dedra Syed RN Position: [facility] RN Member Role: Primary Care Nurse Name: Kyra Lockhart RN Position: [facility] RN Member Role: Primary Care Nurse Name: Jill Allen RN Position: [facility] RN Member Role: Primary Care Nurse Name: [place] Beltre RN Position: [facility] RN Member Role: Primary Care Nurse Name: Carmita Canas RN Position: [facility] Rad RN Member Role: Primary Care Nurse Name: Jolene Bruner RN Position: [facility] RN Member Role: Primary Care Nurse Name: Melissa Urias RN Position: [facility] RN Member Role: Primary Care Nurse Name: Argenis Scruggs RN Position: [facility] ED RN W/OE and Tasks Member Role: Primary Care Nurse Name: Ada Harris RN Position: [facility] RN Member Role: Primary Care Nurse Name: Radha Montes De Oca RN Position: [facility] RN Member Role: Primary Care Nurse Name: Mira Rajan RN Position: [facility] SN RN Member Role: Primary Care Nurse Name: Anita De Jesus RN Position: [facility] ED RN W/OE and Tasks Member Role: Primary Care Nurse Name: Suzi Cowan RN Position: [facility] RN Member Role: Primary Care Nurse Name: Rebeka Ontiveros RN Position: [facility] RN Member Role: Primary Care Nurse Name: Jeremiah Al RN Position: [facility] SN RN Member Role: Primary Care Nurse Name: Regine Guerin RN Position: [facility] RN Member Role: Primary Care Nurse Name: Jocelyn Cristobal RN Position: [facility] SN RN Member Role: Primary Care Nurse Name: Apolonia Easton RN Position: [facility] RN Supv Member Role: Primary Care Nurse Name: Estefania Bhatti RN Position: [facility] RN Member Role: Primary Care Nurse Name: Eulogio Enciso RN Position: [facility] RN Member Role: Primary Care Nurse Name: Kamala Abdi RN Position: [facility] RN Member Role: Primary Care Nurse Name: Aquilino Sarah RN Position: [facility] SN RN Member Role: Primary Care Nurse Name: Stephanie Mliian RN Position: [facility] SN RN Member Role: Primary Care Nurse Name: Concepcion Mondragon RN Position: [facility] RN Member Role: Primary Care Nurse Name: Marcia Kuhn RN Position: [facility] RN Member Role: Primary Care Nurse Name: Adrián Wilcox RN Position: [facility] RN Member Role: Primary Care Nurse Name: Ada Aleman RN Position: [facility] ED RN W/OE and Tasks Member Role: Primary Care Nurse Name: Sharlene Macias Position: [facility] Outreach Member Role: Lifetime Consulting Physician Name: Tyesha Rogers MD Position: [facility] Outreach Member Role: PCP Address: Address: [address] [place] [address]- Name: La Miranda RN Position: [facility] Party Plan Sales Agent Member Role: Primary Care Nurse Name: Sunita Anthony RN Position: [facility] RN Member Role: Primary Care Nurse Name: Glendy Gandara RN Position: [facility] SN RN Member Role: Primary Care Nurse Name: Melanie Martinez RN Position: [facility] Onco RN Member Role: Primary Care Nurse Name: Rima Soliz RN Position: [facility] Party Plan Sales Agent Member Role: Primary Care Nurse Name: Benjamin Cheatham MD Position: [facility] Physician - [facility] Member Role: Lifetime Consulting Physician Address: Address: [address] [place] [address]- [place] Care Team Related Persons Name: JOSE ROBLEDO Address: home [address] [place] [address] Name: YOHANA FOLEY Address: [place] [address]
--- OUTSIDE RECORDS SUMMARY | 2024-05-28 13:58 | XMS_ITS | Continuity of Care Document ---
Author Organization [facility] Address [address] [place] [address]- Care Team Providers Care Drawing Kiln Operator Name Role Phone Ken VILLELA, Tyesha Primary Care Physician [phone] En[place] [facility] [place] 06/05/23 - 08/05/23 [facility] [address] [place] [id number] Attending Physician: Jerry Winkler MD Admitting Physician: [...] 10:48:25 EST Start Date: 07/29/19 Status: Ordered [place] Thyroid 60 mg oral tablet 60 mg, [...] Confirmed Active Encounter for screening colonoscopy for [id number] patient Confirmed Active Encounter for screening colonoscopy [...] concentric LVH. ECHO 02-08-12 5MRI 08-20-15 ([facility]-scanned): disc desiccatios, disc bulges and [...] wrist cutting 9-See MRI done at [facility] 12-09-2015 10-T4-T8 disc bulging with mild left neural foraminal narrowing. MRI 01-29-16 (scanned-done at [facility]) 11-by ex partner, (father of children) Social History Social History Type Response Smoking Status 5-9 cigarettes (betw een 09/14 to /2 pack)/day in last 30 days entered on: 02/03/22 Sex Patient Care team information Care Team Personnel Name: Yana Rogers RN Position: [facility] ED RN W/OE and Tasks Member Role: Primary Care Nurse Name: Kinjal Vivar RN Position: [facility] RN Member Role: Primary Care Nurse Name: Augusta Cespedes RN Position: [facility] RN Member Role: Primary Care Nurse Name: Dedra Syed RN Position: [facility] RN Member Role: Primary Care Nurse Name: Kyra Lockhart RN Position: [facility] RN Member Role: Primary Care Nurse Name: Jill Allen RN Position: [facility] RN Member Role: Primary Care Nurse Name: [place] Beltre RN Position: [facility] RN Member Role: Primary Care Nurse Name: Carmita Canas RN Position: [facility] Rad RN Member Role: Primary Care Nurse Name: Jolene Bruner RN Position: [facility] RN Member Role: Primary Care Nurse Name: Melissa Urias RN Position: [facility] RN Member Role: Primary Care Nurse Name: Argenis Scruggs RN Position: [facility] ED RN W/OE and Tasks Member Role: Primary Care Nurse Name: Ada Harris RN Position: [facility] RN Member Role: Primary Care Nurse Name: Radha Montes De Oca RN Position: [facility] RN Member Role: Primary Care Nurse Name: Mira Rajan RN Position: [facility] SN RN Member Role: Primary Care Nurse Name: Anita De Jesus RN Position: [facility] ED RN W/OE and Tasks Member Role: Primary Care Nurse Name: Suzi Cowan RN Position: [facility] RN Member Role: Primary Care Nurse Name: Rebeka Ontiveros RN Position: [facility] RN Member Role: Primary Care Nurse Name: Jeremiah Al RN Position: [facility] SN RN Member Role: Primary Care Nurse Name: Regine Guerin RN Position: [facility] RN Member Role: Primary Care Nurse Name: Jocelyn Cristobal RN Position: [facility] SN RN Member Role: Primary Care Nurse Name: Apolonia Easton RN Position: [facility] RN Supv Member Role: Primary Care Nurse Name: Estefania Bhatti RN Position: [facility] RN Member Role: Primary Care Nurse Name: Eulogio Enciso RN Position: [facility] RN Member Role: Primary Care Nurse Name: Kamala Abdi RN Position: [facility] RN Member Role: Primary Care Nurse Name: Aquilino Sarah RN Position: [facility] SN RN Member Role: Primary Care Nurse Name: Stephanie Milian RN Position: [facility] SN RN Member Role: Primary Care Nurse Name: Concepcion Mondragon RN Position: [facility] RN Member Role: Primary Care Nurse Name: Marcia Kuhn RN Position: [facility] RN Member Role: Primary Care Nurse Name: Adrián Wilcox RN Position: [facility] RN Member Role: Primary Care Nurse Name: Ada Aleman RN Position: [facility] ED RN W/OE and Tasks Member Role: Primary Care Nurse Name: Sharlene Macias Position: [facility] Outreach Member Role: Lifetime Consulting Physician Name: Tyesha Rogers MD Position: [facility] Outreach Member Role: PCP Address: Address: [address] [place] [address]- Name: La Miranda RN Position: [facility] Pigment Making Supervisor Member Role: Primary Care Nurse Name: Sunita Anthony RN Position: [facility] RN Member Role: Primary Care Nurse Name: Glendy Gandara RN Position: [facility] SN RN Member Role: Primary Care Nurse Name: Melanie Martinez RN Position: [facility] Onco RN Member Role: Primary Care Nurse Name: Rima Soliz RN Position: [facility] Pigment Making Supervisor Member Role: Primary Care Nurse Name: Benjamin Cheatham MD Position: [facility] Physician - [facility] Member Role: Lifetime Consulting Physician Address: Address: [address] [place] [address] [place] Care Team Related Persons Name: JOSE ROBLEDO Address: home [address] [place] [address] Name: YOHANA FOLEY Address: [place] [address]
[2024-05-28 14:19] VITALS: BP 133/80; PULSE 74
[2024-05-28] MEDS: EPINEPHrine 1 MG/ML VIAL 0.3 MG IM ×2 (14:19→21:24)
[2024-05-28] MEDS: methylPREDNISolone Sod Succ 125 MG/2 ML VIAL IVPUSH (14:23)
[2024-05-28] MEDS: Famotidine/PF 20 MG/2 ML VIAL IVPUSH ×2 (14:23→20:57)
--- NOTE | 2024-05-28 15:38 | P.HPHOSP_ITS ---
History of Present Illness Date of Service: 05/28/24 Chief Complaint: Allergic reaction 53 y/o F patient; PMH HTN, atopic disorder, hx substance abuse, T2DM; presents from home reporting 1 week of tongue swelling that significantly worsened one day ago. Associated with splitting of the skin of her tongue. She states she has had this previously but never this severe. She has been unable to eat due to the swelling as she has been coughing/choking. She has been able to tolerate water and her own secretions. She denies any nausea/vomiting, diarrhea. She has a slightly slurred speech 2/2 to the tongue swelling. She states she was on Lisinopril until 1 year ago when she was taken off of it and changed to [place] n. She has seen an coal getter previously but is not currently followed, she reports daily hives. ER Course In ER received IV Solu-Medrol/Benadryl/famotidine/IM epinephrine and 1 L fluid with resolution of her symptoms. She will be admitted observation to observe for reoccurrence Review of Systems Review of Systems: Denies chest pain Denies shortness of breath Denies nausea vomiting diarrhea Denies fever chills [facility] Medical History Excoriation (skin-picking) disorder Back pain GERD (gastroesophageal reflux disease) Peripheral neuropathy PTSD (post-traumatic stress disorder) Mood disorder Elevated cholesterol Fibromyalgia Chronic back pain DDD (degenerative disc disease) Ovarian cyst Kidney stone Normal colonoscopy Lesion of bladder Suicide attempt Depression IBS (irritable bowel syndrome) Obesity (BMI 30-39.9) Endometriosis History of pulmonary embolus (PE) History of DVT (deep vein thrombosis) Diabetes mellitus Asthma HTN (hypertension) Anxiety Multiple sclerosis Family History Mother Rheumatoid arteritis COPD (chronic obstructive pulmonary disease) Father HTN (hypertension) Diabetes mellitus Surgical History History of lithotripsy History of cystoscopy S/P endometrial ablation H/O neck surgery Hx of dilation and curettage Hx of tubal ligation Hx of appendectomy Hx of cholecystectomy Social History Household Members: None Housing: Apartment Do you presently have visiting nurse or other home services: No Alcohol intake: current Alcohol intake frequency: does not drink Comment: SEEKING ACCOUNT MANAGER SALES REPRESENTATIVE SERVICE TO BE EVALUATED BY RN Patient Tobacco Use Status: Current everyday Tobacco user Tobacco use type: Cigarette Cigarettes Per Day: 4 Years Smoked: 30 Smoked in Last 30 Days: Yes e-Cigarette/Vaping Use: Never Used Second Hand Smoke Exposure: No Use of substances other than those prescribed or required for medical reasons: No Substance Use Type: Crack/Cocaine Advance Directives: Yes Advance Directives Information Provided: Yes Advance Directives on File: No Patient : No service: No Sexual orientation: Straight/Heterosexual Gender identity: Female Meds Allergies Allergy/AdvReac Type Severity Reaction Status Date / Time Iodinated Contrast Media Allergy Severe THROAT Verified 05/28/24 13:39 [IV CONTRAST] CLOSING lithium [LITHIUM] Allergy Intermediate AGGRESSION, Verified 05/28/24 13:39 stiffened up & throat closing (moderate to severe) fluoxetine [FLUOXETINE] Allergy Mild ITCHING, Verified 05/28/24 13:39 Suicidal risperidone [From RISPERDAL] Allergy Mild ITCHING Verified 05/28/24 13:39 asparagus [ASPARAGUS] Allergy Unknown unknown Verified 05/28/24 13:39 divalproex sodium Allergy Unknown UNKNOWN, Verified 05/28/24 13:39 [From DEPAKOTE] stiffened up, locked jaw lisinopril [LISINOPRIL] Allergy Unknown COUGH Verified 05/28/24 13:39 olanzapine Allergy Unknown can't Verified 05/28/24 13:39 recall if hives or increased pollen extracts [POLLEN] Allergy Unknown unknown Verified 05/28/24 13:39 tomato [TOMATO] Allergy Unknown UNKNOWN Verified 05/28/24 13:39 quetiapine [From SEROQUEL] AdvReac Intermediate OVERSEDATIO Verified 05/28/24 13:39 N BROCCOLI Allergy Unknown Unknown Uncoded 08/03/21 14:34 FUMARATE Allergy Unknown Unknown Uncoded 08/03/21 14:34 GREEN [place]UNG Allergy Unknown Unknown Uncoded 08/03/21 14:34 TOMATO Allergy Unknown Unknown Uncoded 08/03/21 14:34 Active Medications: Current Medications Acetaminophen (Acetaminophen 325 Mg Tablet) 650 mg PO Q6H PRN PRN Reason: Pain, Mild (Pain Scale 1-3), fever or headache Apixaban (Apixaban 5 Mg Tablet) 5 mg PO BID ISI Calcium Carbonate (Calcium Carbonate 750 Mg Tab.Chew) 750 mg PO Q4H PRN PRN Reason: Heartburn Famotidine (Famotidine/Pf 20 Mg/2 Ml Vial) 20 mg IVPUSH ONCE ONE Stop: 05/28/24 20:01 Glucose (Glucose Gel 15 Gm Gel..Gram.) 15 gm PO Q15M PRN; Protocol PRN Reason: per Hypoglycemia Standing Ord. Dextrose (D10) 250 mls @ 750 mls/hr IV Q15M PRN; Protocol PRN Reason: per Hypoglycemia Standing Ord. Insulin Human Lispro (Insulin Lispro 100 Unit/Ml 3 Ml Vial) [facility]; Protocol Magnesium Hydroxide (Milk Of Magnesia 30 Ml Oral.Susp) 30 ml PO DAILY PRN PRN Reason: Constipation Melatonin (Melatonin 3 Mg Tablet) 6 mg PO BEDTIME PRN PRN Reason: Insomnia Ondansetron HCl (Ondansetron Hcl 4 Mg/2 Ml Vial) 4 mg IVPUSH Q8H PRN PRN Reason: Nausea and Vomiting Sodium Chloride (0.9 % Sodium Chloride Flush 3 Ml Syringe) 3 ml IVFLUSH [facility] Home Medications ?Medication ?Instructions ?Recorded ?Confirmed ?Last Taken ?Type apixaban 5 mg tablet (Eliquis) 5 mg PO BID 08/25/20 05/11/23 04/26/22 History blood sugar diagnostic (FreeStyle #10 ea 08/25/20 03/18/21 Unknown History Lite Strips) lancets 28 gauge (FreeStyle #100 ea 08/25/20 03/18/21 Unknown History Lancets) nebulizers (AeroEclipse II #1 ea 08/25/20 03/18/21 Unknown History Nebulizer) pen needle, diabetic 32 gauge x #50 ea 08/25/20 03/18/21 Unknown History (Comfort EZ Pen [place]) atorvastatin 40 mg tablet 1 tab PO DAILY 06/07/22 05/11/23 Unknown History buprenorphine 8 mg-naloxone 2 mg 1 strip sublingual DAILY 06/07/22 05/11/23 Unknown History sublingual film (Suboxone) cholecalciferol (vitamin D3) 25 1 cap PO DAILY 06/07/22 05/11/23 Unknown History mcg (1,000 unit) capsule (Vitamin D3) fluticasone propionate 220 1 puff inhalation BID 06/07/22 05/11/23 Unknown History mcg/actuation HFA aerosol inhaler (Flovent HFA) insulin glargine 100 unit/mL (3 25 unit subcut QAM 06/07/22 05/11/23 Unknown History mL) subcutaneous pen (Lantus Solostar U-100 Insulin) losartan 100 mg tablet 1 tab PO DAILY 06/07/22 05/11/23 Unknown History topiramate 25 mg tablet 1 tab PO DAILY 06/07/22 05/11/23 Unknown History bisacodyl 5 mg tablet 5 mg PO DAILY PRN Constipation 05/11/23 05/11/23 Unknown History docusate sodium 100 mg capsule 100 mg PO DAILY 05/11/23 05/11/23 Unknown History magnesium oxide 400 mg PO BID 05/11/23 05/11/23 Unknown History metformin 500 mg tablet,extended 1,000 mg PO BID 05/11/23 05/11/23 Unknown History release 24 hr nicotine 21 mg/24 hr daily 1 patch transdermal DAILY 05/11/23 05/11/23 Unknown History transdermal patch polyethylene glycol 3350 17 gram 17 g PO DAILY PRN Constipation 05/11/23 05/11/23 Unknown History oral powder packet (Miralax) topiramate 100 mg tablet 100 mg PO BEDTIME 05/11/23 05/11/23 Unknown History Physical Exam Vital Signs and Narrative: Vital Signs: Last Vital Signs Temp 98.6 F 05/28/24 13:38 Pulse 74 05/28/24 14:19 Resp 14 05/28/24 13:38 BP 133/80 05/28/24 14:19 Pulse Ox 98 05/28/24 13:38 O2 Del Method Room Air 05/28/24 13:38 BMI result Body Mass Index 31.1 Const: Other: Awake alert oriented x3 no acute distress HEENT: Other: No residual evidence of facial lip swelling or oral issues. Resp: Other: Clear to auscultation bilaterally no rales rhonchi or wheezes Cardio: Other: No S4; positive S1-S2; no S3 murmurs rubs or gallops GI: Other: Soft nontender nondistended normoactive bowel sounds Extrem: Other: No edema bilaterally Assessment and Plan (1) Angioedema: Qualifiers: Encounter type: initial encounter Qualified Code(s): T78.3XXA - Angioneurotic edema, initial encounter Status: Acute Plan 53-year-old female with a history of hypertension atopic disorder substance abuse type 2 diabetes presents with tongue swelling and lip swelling that has been going on for the past 24 hours. Presented to the emergency room and angioedema. Received Solu-Medrol Pepcid an appy with good results. 1. Angioedema -admit obs -will give 2 additional doses of Solu-Medrol (tonight in a.m.) -1 dose of IV Pepcid this evening -re-evaluate in a.m.. 2. Diabetes type 2 -acceptable control on current therapies -lispro correctional scale -adjust as indicated 3. History of substance abuse -continue outpatient therapies -no acute issues at this time 4. History of DVT -continue Eliquis Eliquis Full code Patient will require 1 night of observational hospital stay to document clearance of angioedema. Quality Stroke Does the patient have a stroke diagnosis?: No VTE Prior VTE?: No VTE Risk Level:: Medical - moderate - high VTE Device Contraindication: Treatment Not Indicated VTE Drug Contraindication: N/A - Med Ordered
--- OUTSIDE RECORDS SUMMARY | 2024-05-28 15:53 | XMS_ITS | Patient Health Record ---
Author Organization [facility] Address [address], [place] [id number] Support Name Relationship Address Phone Tayla Fowler Emergency Contact NICOLAS Guerrero Emily Tucker Guarantor Unknown REASON FOR REFERRAL No Information MEDICATIONS Medication SIG (Take, Route, Fr equency, Duration) Notes Start Date End Date Status metFORMIN 500 mg 1 tab(s) orally once a day for 30 day(s) 09/11/2023 09/11/2023 Active amantadine 100 mg 1 cap(s) orally tid for 30 day(s) 09/11/2023 09/11/2023 Active Remeron 15 mg 1 tab(s) orally once a day (at bedtime) for 30 day(s) 09/11/2023 09/11/2023 Active baclofen 20 mg 1 tab(s) orally 3 ti mes a day for 30 day(s) 09/11/2023 09/11/2023 Active cloNIDine 0.1 mg 1 tab(s) orally tid for 30 day(s) 09/11/2023 09/11/2023 Active Benadryl 50 mg 1 cap(s) orally hs for 5 day(s) 09/202309/11/2023 Active Topamax 200 mg 1 tab(s) orally 2 ti mes a day for 30 day(s) 09/11/2023 09/11/2023 Active Zoloft 100 mg 1 tab(s) orally once a day for 30 day(s) 09/11/2023 09/11/2023 Active Neurontin 600 mg 1 tab(s) orally 3 ti mes a day for 30 day(s) 09/11/2023 09/11/2023 Active SOCIAL HISTORY Sex Assigned At : Social History Observation Description Sex Assigned At Unknown PROBLEMS Problem Type ICD Code Onset Dates Problem Status W/U Status Risk SNOMED Code Notes Problem Diabetes mellitus type II (250.00) Active confirmed Diabetes mellit us type II (02904607) Problem PTSD (Posttraumatic stress disorder) (NOS) (309.81) Active confirmed Posttraumatic stress disorder (99792744) Problem Bipolar disorder NOS (296.7) Active confirmed Bipolar disorde r (03734613) Problem Depressive Disorder NOS (311) Active confirmed Depressive disorder (89433713) Problem Anxiety disorder NOS (300.00) Active confirmed Anxiety disorde r (049548764) Problem ASTHMA NOS (493.90) Active confirmed Asthma (519893084) Problem NEUROPATHY IN DIABETES (357.2) Active confirmed Diabetic neuropathy (246179970) PLAN OF TREATMENT No Information MEDICAL (GENERAL) HISTORY Medical History History ICD Code DM, asthma, ptsd, bipolar, a nxiety, depression, diabetic neuropathy, ?OCD, cutter
[2024-05-28 17:09] VITALS: BP 160/88; PULSE 97; RESP 16; TEMP 36.7; O2SAT 100
[2024-05-28 17:09] LABS: Glucose, Whole Blood 439 mg/dL (60-115)
--- NOTE | 2024-05-28 17:15 | PC.NURSE ---
Pt POC 439, MD Danielle aware.
--- NOTE | 2024-05-28 17:18 | PC.NURSE ---
Per MD white, give 10units Lispro.
[2024-05-28] MEDS: Insulin Lispro 100 UNIT/ML 3 ML VIAL SUBCUT ×2 (17:20→20:54)
[2024-05-28] MEDS: 0.9 % Sodium Chloride Flush 3 ML SYRINGE IVFLUSH ×2 (17:22→23:02)
--- NOTE | 2024-05-28 18:42 | PHA.MEDREC ---
Addendum entered by Omar Goel [facility] 05/28/24 19:02: MED REC CHECKED BY [facility] Original Note: Pharmacy Consult ? Medication Reconciliation Pharmacy has completed the medication reconciliation. Confirmed medications with patient and list provided by doctors office and patient states it is up to date. Patient confirmed her Insulin Solostar dosing and shes injecting 25 units at bedtime and she takes an Insulin Kwikpen sliding scale dose 3 times a day before meals she took those last last night. She is taking Suboxone 8-2mg films and she is taking 1 film under the tongue once daily. She states she is no longer taking the Ocrevus injection every 6 months due to her having an allergic reaction to it. She states she took her morning medication today but nothing else.
--- NOTE | 2024-05-28 18:50 | PC.NURSE ---
Assumed care of pt. Py lying on stretcher, respirations even and unlabored, no acute distress at this time, appears sleeping.
[2024-05-28 18:54] LABS: Basophils Percent Auto 0.3 % (0-2); Eosinophils Percent Auto 0.4 % (0-4); Hematocrit 41.3 % (37.0-47.0); Hemoglobin 14.3 g/dl (12.0-16.0); Imm Gran Abs Auto 0.06 X10*3/uL (0.00-0.03); Imm Gran Pct Auto 0.5 % (0.0-0.4); Lymphocytes Absolute Auto 0.7 X10*3/uL (1.2-4.9); Lymphocytes Percent Auto 6.2 % (20-40); MANUAL DIFF FLAG SCAN; Mean Corpuscular HGB Conc 34.6 g/dl (31.0-35.0); Mean Corpuscular Hemoglobin 29.3 pg (27.0-33.0); Mean Corpuscular Volume 84.6 fL (80.0-98.0); Monocytes Absolute Auto 0.1 X10*3/uL (0.1-1.2); Neutrophils Absolute Auto 10.4 x10*3/uL (2.0-8.3); Neutrophils Percent Auto 91.6 % (45-73); Platelet Count 211 X10*3/uL (160-400); Red Blood Count 4.88 X10*6/uL (4.20-5.50); Red Cell Distribution Width 12.1 % (11.0-16.0); SCAN SMEAR FLAG 1; White Blood Count 11.4 X10*3/uL (4.8-10.8)
[2024-05-28 19:15] LABS: Alanine Aminotransferase 40 U/L (0-31); Albumin Level 3.6 g/dL (3.5-5.0); Alkaline Phosphatase 109 U/L (39-117); Anion Gap 16 (12-20); Aspartate Amino Transferase 19 U/L (5-31); Bilirubin Total 0.2 mg/dL (0.0-1.0); Blood Urea Nitrogen 13 mg/dL (9-16); Calcium 9.3 mg/dL (8.4-10.2); Carbon Dioxide 19 mmol/L (22-29); Chloride 103 mmol/L (96-108); Creatinine Clr Calc Pharmacy 63.9; Estimated Glomerular Filt Rate 58; Glucose Random 501 mg/dL (60-115); Potassium 4.4 mmol/L (3.3-5.1); Sodium 134 mmol/L (135-145)
[2024-05-28 19:23] LABS: SLIDE REVIEW VERIFIED
[2024-05-28] MEDS: 0.9 % Sodium Chloride 500 ML IV (19:51)
[2024-05-28] MEDS: metFORMIN HCl ER 500 MG TAB.ER.24H 1000 MG PO (19:51)
[2024-05-28 20:50] LABS: Glucose, Whole Blood 525 mg/dL (60-115)
[2024-05-28 20:54] VITALS: BP 169/88; PULSE 76; RESP 20; TEMP 36.6; O2SAT 96
[2024-05-28] MEDS: Insulin Glargine,Hum.rec.anlog 100 UNIT/ML 10 ML VIAL 25 UNIT SUBCUT (20:54)
[2024-05-28] MEDS: Famotidine 20 MG TABLET 10 MG PO (20:55)
[2024-05-28] MEDS: Apixaban 5 MG TABLET PO (20:57)
[2024-05-28] MEDS: diphenhydrAMINE HCL 50 MG/ML VIAL 75 MG IVPUSH (21:18)
[2024-05-28 21:24] VITALS: BP 169/88; PULSE 76
[2024-05-28] MEDS: Doxepin HCl 25 MG CAPSULE PO (23:01)
[2024-05-29] VITALS: BP 149/77; PULSE 79; RESP 16; TEMP 36.5; O2SAT 95
[2024-05-29 04:00] VITALS: BP 169/71; PULSE 79; RESP 20; TEMP 36.6; O2SAT 96
[2024-05-29] MEDS: Levothyroxine Sodium 25 MCG TABLET PO (06:02)
--- NOTE | 2024-05-29 06:36 | PM.EVENT ---
Event Note Date of Service: 05/28/24 Event Note: 8:42 PM - Contacted to notify patient is feeling her tongue swollen. I evaluated patient at bedside. She does not look in distress. Tongue looks somewhat swollen, left tonsil is markedly swollen, right tonsil is normal. There is no obvious associated swelling of the oropharynx. She is swallowing adequately. Additional treatment with epinephrine 0.3 mg IM and IV given. Time Spent With Patient Time: Total time managing care of this patient today ____ minutes.
[2024-05-29 06:55] LABS: Basophils Percent Auto 0.2 % (0-2); Imm Gran Abs Auto 0.06 X10*3/uL (0.00-0.03); Imm Gran Pct Auto 0.5 % (0.0-0.4); Lymphocytes Absolute Auto 0.9 X10*3/uL (1.2-4.9); Lymphocytes Percent Auto 6.9 % (20-40); MANUAL DIFF FLAG SCAN; Mean Corpuscular Hemoglobin 29.5 pg (27.0-33.0); Mean Corpuscular Volume 84.4 fL (80.0-98.0); Mean Platelet Volume 10.1 fL (9.4-12.3); Monocytes Absolute Auto 0.2 X10*3/uL (0.1-1.2); Monocytes Percent Auto 1.7 % (2-11); Neutrophils Percent Auto 90.7 % (45-73); Platelet Count 219 X10*3/uL (160-400); Red Blood Count 4.74 X10*6/uL (4.20-5.50); Red Cell Distribution Width 12.2 % (11.0-16.0); SCAN SMEAR FLAG 1; White Blood Count 13.2 X10*3/uL (4.8-10.8)
[2024-05-29 07:11] LABS: Alanine Aminotransferase 38 U/L (0-31); Albumin Level 3.7 g/dL (3.5-5.0); Alkaline Phosphatase 98 U/L (39-117); Anion Gap 12 (12-20); Aspartate Amino Transferase 14 U/L (5-31); Bilirubin Total 0.3 mg/dL (0.0-1.0); Blood Urea Nitrogen 22 mg/dL (9-16); Calcium 9.5 mg/dL (8.4-10.2); Carbon Dioxide 25 mmol/L (22-29); Chloride 103 mmol/L (96-108); Estimated Glomerular Filt Rate > 60; Glucose Random 346 mg/dL (60-115); Potassium 5.1 mmol/L (3.3-5.1); Sodium 135 mmol/L (135-145); Total Protein 6.8 g/dL (6.5-8.0)
[2024-05-29 07:31] VITALS: BP 138/83; PULSE 77; RESP 20; TEMP 36.1; O2SAT 100
[2024-05-29 07:43] LABS: Glucose, Whole Blood 359 mg/dL (60-115)
--- NOTE | 2024-05-29 08:21 | MHC.CM.PN ---
CM met with Patient at bedside and addressed ZELAYA with her, providing Patient with the original and a copy has been placed on the chart. Patient is homeless and she plans to stay with her Sister,Dilia at time of dc @ [address] [place] [address]. CM has initiated and will follow for dc planning. Patient obtains her Suboxone from [facility] and she uses a cane to assist with mobility. PCP is Dr. Tyesha Rogers.Patient may require assistance with transport to her Sister/Dilia's home. Sister/Ayleen is the HCP.
[2024-05-29 08:57] LABS: SLIDE REVIEW VERIFIED
[2024-05-29] MEDS: metFORMIN HCl ER 500 MG TAB.ER.24H 1000 MG PO (09:28)
[2024-05-29] MEDS: Famotidine 20 MG TABLET 10 MG PO (09:33)
[2024-05-29] MEDS: Docusate Sodium 100 MG CAPSULE PO (09:33)
[2024-05-29] MEDS: Apixaban 5 MG TABLET PO (09:33)
[2024-05-29] MEDS: Atorvastatin Calcium 40 MG TABLET PO (09:35)
[2024-05-29] MEDS: amLODIPine Besylate 2.5 MG TABLET PO (09:35)
[2024-05-29] MEDS: Prazosin HCL 1 MG CAPSULE PO (09:35)
[2024-05-29] MEDS: Multivitamin TABLET 1 TAB PO (09:35)
[2024-05-29] MEDS: ARIPiprazole 5 MG TABLET PO (09:35)
[2024-05-29] MEDS: Insulin Lispro 100 UNIT/ML 3 ML VIAL SUBCUT ×2 (09:37→12:02)
[2024-05-29] MEDS: Famotidine/PF 20 MG/2 ML VIAL IVPUSH (09:55)
[2024-05-29] MEDS: methylPREDNISolone Sod Succ 125 MG/2 ML VIAL 60 MG IVPUSH (09:58)
[2024-05-29] MEDS: Buprenorphine/Naloxone 8/2 mg FILM 1 FILM SUBLINGUAL (10:27)
[2024-05-29] MEDS: 0.9 % Sodium Chloride Flush 3 ML SYRINGE IVFLUSH (10:28)
[2024-05-29 11:25] VITALS: BP 126/67; PULSE 84; RESP 20; TEMP 36; O2SAT 93
[2024-05-29 11:54] LABS: Glucose, Whole Blood 363 mg/dL (60-115)
--- NOTE | 2024-05-29 12:18 | PC.NURSE ---
Attempted iv insertion 2, but unable to access it; Nurse notified.
--- NOTE | 2024-05-29 12:52 | PM.DS ---
DS: Providers Provider Date of Service: 05/29/24 Date of admission: 05/28/24 15:29 Date of discharge: 05/29/24 Primary care physician: Tyesha Rogers MD DS: Diagnosis Discharge Diagnosis (1) Angioedema: Status: Acute DS: Summary Hospital Course Hospital Course: 53 y/o F patient; PMH HTN, atopic disorder, hx substance abuse, T2DM; presents from home reporting 1 week of tongue swelling that significantly worsened one day ago. Associated with splitting of the skin of her tongue. She states she has had this previously but never this severe. She has been unable to eat due to the swelling as she has been coughing/choking. She has been able to tolerate water and her own secretions. She denies any nausea/vomiting, diarrhea. She has a slightly slurred speech 2/2 to the tongue swelling. She states she was on Lisinopril until 1 year ago when she was taken off of it and changed to Losartan. She has seen an hematology oncology consultant previously but is not currently followed, she reports daily hives. In ER received IV Solu-Medrol/Benadryl/famotidine/IM epinephrine and 1 L fluid with resolution of her symptoms. She will be admitted observation to observe for reoccurrence Hospital Course Patient admitted to telemetry and observed overnight. Given pulse dose methylprednisolone 60 mg IV q.4 along with Pepcid. Did well overnight however this morning felt like she had some swelling for which she received an additional epinephrine. Discussed with patient that I felt she should stay 1 more day for steroids however stated that she could not secondary to outside commitments. At this point in time I think she has the capacity to make this decision and will come back if symptoms worsen. She will be discharged on a prednisone taper and has been instructed to follow up with her PCP and obtain an hematology oncology consultant to follow up Time Attestation Discharge Coordination Time (in mins): 35 Quality: Safe Use of Opioids Does Pt have an Active Cancer Diagnosis on the Problem List?: No Quality: Stroke Does the patient have a stroke diagnosis?: No Physical Exam Vital Signs: Vital Signs: Last Vital Signs Temp 96.8 F 05/29/24 11:25 Pulse 84 05/29/24 11:25 Resp 20 05/29/24 11:25 BP 126/67 05/29/24 11:25 Pulse Ox 93 05/29/24 11:25 O2 Del Method Room Air 05/29/24 11:25 BMI result Body Mass Index 31.1 Const: Other: Awake alert oriented x3 no acute distress HEENT: Other: No residual evidence of facial lip swelling or oral issues. Resp: Other: Clear to auscultation bilaterally no rales rhonchi or wheezes Cardio: Other: No S4; positive S1-S2; no S3 murmurs rubs or gallops GI: Other: Soft nontender nondistended normoactive bowel sounds Extrem: Other: No edema bilaterally DS: Data Data Completed and Pending Labs on day of discharge: Laboratory Results - last 24 hr 05/28/24 05/28/24 05/28/24 17:02 18:36 20:34 WBC 11.4 H RBC 4.88 Hgb 14.3 Hct 41.3 MCV 84.6 MCH 29.3 MCHC 34.6 RDW 12.1 Plt Count 211 MPV 10.0 Immature Gran % (Auto) 0.5 H Neut % (Auto) 91.6 H Lymph % (Auto) 6.2 L [place] % (Auto) 1.0 L Eos % (Auto) 0.4 Baso % (Auto) 0.3 Lymph # (Auto) 0.7 L [place] # (Auto) 0.1 Eos # (Auto) 0.0 Baso # (Auto) 0.0 Abs Immat Gran (auto) 0.06 H Absolute Neuts (auto) 10.4 H Absolute Nucleated RBC 0.000 Nucleated RBC % (auto) 0.0 Smear Tech's Comments VERIFIED Sodium 134 L Potassium 4.4 Chloride 103 Carbon Dioxide 19 L Anion Gap 16 BUN 13 Creatinine 1.00 Estim Creat Clear Calc 63.9 Estimated GFR 58 POC Glucose 439 H* 525 H* Random Glucose 501 H* Calcium 9.3 Total Bilirubin 0.2 AST 19 ALT 40 H Alkaline Phosphatase 109 Total Protein 7.0 Albumin 3.6 05/29/24 05/29/24 05/29/24 06:36 07:39 11:25 WBC 13.2 H RBC 4.74 Hgb 14.0 Hct 40.0 MCV 84.4 MCH 29.5 MCHC 35.0 RDW 12.2 Plt Count 219 MPV 10.1 Immature Gran % (Auto) 0.5 H Neut % (Auto) 90.7 H Lymph % (Auto) 6.9 L [place] % (Auto) 1.7 L Eos % (Auto) 0.0 Baso % (Auto) 0.2 Lymph # (Auto) 0.9 L [place] # (Auto) 0.2 Eos # (Auto) 0.0 Baso # (Auto) 0.0 Abs Immat Gran (auto) 0.06 H Absolute Neuts (auto) 12.0 H Absolute Nucleated RBC 0.000 Nucleated RBC % (auto) 0.0 Smear Tech's Comments VERIFIED Sodium 135 Potassium 5.1 Chloride 103 Carbon Dioxide 25 Anion Gap 12 BUN 22 H Creatinine 0.94 Estim Creat Clear Calc 68.0 Estimated GFR > 60 POC Glucose 359 H* 363 H* Random Glucose 346 H Calcium 9.5 Total Bilirubin 0.3 AST 14 ALT 38 H Alkaline Phosphatase 98 Total Protein 6.8 Albumin 3.7 Discharge Plan Discharge Anticipated Discharge Date/Time: 05/29/24 12:42 Patient Disposition: Home, Self-Care Discharge Diagnosis: Angioedema Referrals: Tyesha Rogers MD [Primary Care Provider] - 1 Week Discharge Medications: New prednisone 10 mg tablet See Rx Instructions .Route .COMPLEX Qty: 45 0RF Rx Instructions: 10 mg orally; 5 tabs p.o. daily x3 days; 4 tabs p.o. daily x3 days; 3 tabs daily x3 days; 2 tabs daily x3 days; 1 tab daily x3 days Continued buprenorphine-naloxone [Suboxone] 8-2 mg film 1 strip sublingual DAILY insulin glargine [Lantus Solostar U-100 Insulin] 100 unit/mL (3 mL) insulin pen 25 unit subcut BEDTIME atorvastatin 40 mg tablet 1 tab PO DAILY losartan 100 mg tablet 1 tab PO DAILY cholecalciferol (vitamin D3) [Vitamin D3] 25 mcg (1,000 unit) capsule 1 cap PO DAILY doxepin 25 mg Capsule 25 mg PO BEDTIME 30 Days Qty: 30 0RF albuterol sulfate [Ventolin HFA] 90 mcg/actuation Hfa Aerosol Inhaler 2 puff inhalation RQ4H PRN (Reason: wheezing) Qty: 0 0RF topiramate 100 mg Tablet 100 mg PO BEDTIME docusate sodium 100 mg Capsule 100 mg PO Q12H bisacodyl 5 mg Tablet 5 mg PO DAILY PRN (Reason: Constipation) metformin 500 mg tablet extended release 24 hr 1,000 mg PO BID prazosin 1 mg Capsule 1 mg PO DAILY Qty: 14 1RF Protocol: Hold for SBP< HOLD for SBP < : 90 aripiprazole [Abilify] 5 mg Tablet 5 mg PO DAILY Qty: 14 0RF multivitamin Tablet 1 tab PO DAILY cyclobenzaprine 10 mg tablet 10 mg PO BEDTIME PRN (Reason: muscle spasm) sennosides 8.6 mg Tablet 17.2 mg PO BEDTIME PRN (Reason: Constipation) Rx Instructions: Hold 1 dose if 2 or more bowl movements in 24 hours. acetaminophen 325 mg tablet 650 mg PO Q4H PRN (Reason: pain) albuterol sulfate 2.5 mg /3 mL (0.083 %) Solution For Nebulization 2.5 mg INHALATION Q4H PRN (Reason: Wheezing) famotidine 10 mg Tablet 10 mg PO Q12H bacitracin 500 unit/gram Ointment 1 appl OPHTHALMIC (EYE) DAILY naloxone 0.4 mg/mL Solution 0.4 mg SUBCUT Q2M PRN (Reason: Chest Pain) Rx Instructions: NTExceed 10 mg total dose/episode amlodipine 2.5 mg tablet 2.5 mg PO DAILY levothyroxine 25 mcg tablet 25 mcg PO DAILY@0600 trazodone 100 mg Tablet 100 mg PO BEDTIME diphenhydramine HCl 25 mg Tablet 25 mg PO Q8H PRN (Reason: allergies) lidocaine 5 % adhesive patch,medicated 1 patch topical BID PRN (Reason: pain) ibuprofen 600 mg Tablet 600 mg PO Q6H PRN (Reason: Pain) fluticasone propionate 50 mcg/actuation [place],Suspension 2 spray INTRANASAL BEDTIME Rx Instructions: administer into each nostril prazosin 2 mg Capsule 2 mg PO BID insulin lispro 100 unit/mL insulin pen See Protocol subcut TIDAC Protocol: Insulin Correction Scale Less than or equal to 110 ---- Give (units): 0 111 to 150 Give (units): 8 151 to 200 Give (units): 10 201 to 250 Give (units): 12 251 to 300 Give (units): 14 301 to 350 Give (units): 16 Greater than 350 Give (units): 0 Call MD if Blood Glucose > : 350 pregabalin 25 mg capsule 25 mg PO BEDTIME mometasone 200 mcg/actuation Hfa Aerosol Inhaler 2 puff INHALATION BID (DME) AeroEclipse II Nebulizer Misc See Rx Instructions .ROUTE .MEDSUPPLY Qty: 1 Rx Instructions: As directed (DME) lancets [FreeStyle Lancets] 28 gauge misc See Rx Instructions .ROUTE .MEDSUPPLY Qty: 100 Rx Instructions: As directed (DME) FreeStyle Lite Strips Strip See Rx Instructions .ROUTE .MEDSUPPLY Qty: 10 Rx Instructions: As directed (DME) pen needle, diabetic [Comfort EZ Pen [place]] 32 gauge x 5/32 needle See Rx Instructions .ROUTE .MEDSUPPLY Qty: 50 Rx Instructions: As directed Eliquis 5 mg tablet 5 mg PO BID Discharge Orders: Discharge Order (Routine); Ordered 05/29/24 Ordered By: Josh Danielle Diet: Advance to usual diet Activity on Discharge: As tolerated Stand Alone Forms: Patient Portal Discharge page Print Language: Salvadorean Care Plan Goals: Complete prednisone taper as ordered Health Concerns: Talk to your PCP; you need to find and new hematology oncology consultant Plan of Treatment: Resume all your medicines as taken before the hospital Assessment: See discharge summary
--- NOTE | 2024-05-29 13:53 | MHC.CM.PN ---
Patient has been medically cleared for dc to home today, self care.
[2024-06-03 19:53] LABS: C1 Esterase Inhibitor >100 % (>=68)
[2024-06-06 14:05] LABS: C1Q Complement Component 6.1 mg/dL (5.0-8.6)
[2024-06-13 12:09] LABS: C1q Antibody IgG <1 RU/mL (<26)
== END 2024-05-29 13:10 | disposition home or self-care (01) ==
LOC: HO.ED 15:25 → HO.EDOVER 15:47 → HO.IMC 19:28
PROVIDERS: Internal Medicine; Admitting Provider Hospitalist; Emergency Provider Emergency Medicine; PCP Family Medicine; Visit Provider Hospitalist
DX: T78.3XXA Angioneurotic edema, initial encounter (principal); Y99.9 Unspecified external cause status; K14.0 Glossitis; E11.9 Type 2 diabetes mellitus without complications; I10 Essential (primary) hypertension; G35 Multiple sclerosis; F19.11 Other psychoactive substance abuse, in remission; R09.89 Other specified symptoms and signs involving the circulatory and respiratory systems; Z91.09 Other allergy status, other than to drugs and biological substances; Z79.899 Other long term (current) drug therapy
CPT/HCPCS: 36415; 80053; 82947; 83516; 85025; 86160; 86161; 96361; 96372; 96374; 96375; 96376; 99222; 99285; J0171; J1200; J2919

== ENCOUNTER → 2024-05-28 15:29 | Outpatient (BNV) | payer MEDICAID, SELFPAY | PROVIDERS: Admitting Provider Hospitalist; Emergency Provider Emergency Medicine; PCP Family Medicine; Visit Provider Hospitalist | DX: T78.3XXA Angioneurotic edema, initial encounter (principal) | CPT/HCPCS: 99223; 99239; 99499 ==

== ENCOUNTER 2024-06-04 11:43 | Outpatient (REF) | payer MEDICAID, SELFPAY ==
[2024-06-04 13:51] LABS: Magnesium 1.8 mg/dL (1.6-2.6)
[2024-06-04 14:11] LABS: TSH reflex Free T4 1.33 uIU/mL (0.32-4.0)
[2024-06-05 11:41] LABS: CT PCR NOT DETECTED (Not Detect.); NG PCR NOT DETECTED (Not Detect.)
[2024-06-05 14:19] LABS: Bacterial Vaginosis PCR NEGATIVE (Negative); Candida Group PCR NOT DETECTED (Not Detect); Candida glab krusei PCR NOT DETECTED (Not Detect); Trichomonas vaginalis PCR NOT DETECTED (Not Detect)
== END 2024-06-04 11:44 | disposition home or self-care (01) ==
LOC: HO.HHCL 11:43
PROVIDERS: Visit Provider Emergency Medicine
DX: E11.65 Type 2 diabetes mellitus with hyperglycemia (principal); R00.2 Palpitations; Z79.4 Long term (current) use of insulin
CPT/HCPCS: 0352U; 36415; 83735; 84443; 87491; 87591

== ENCOUNTER 2024-06-13 09:29 | Inpatient (IN) | payer MEDICAID, SELFPAY ==
[2024-06-13] VITALS (9 sets, daily range): BP systolic 133–178; BP diastolic 53–100; PULSE 16–95; RESP 12–20; TEMP 36.3–36.9; O2SAT 96–100; BMI 30.7
--- NOTE | ~2024-06-13 | XR_ITS ---
EXAMINATION: XR CHEST CLINICAL INFORMATION: Pain. COMPARISON: Chest radiograph dated 05/16/2023. TECHNIQUE: 2 views of the chest were obtained. FINDINGS: The lungs are clear. The cardiomediastinal silhouette is normal in size. There is no pleural effusion or pneumothorax. No acute osseous abnormality. XR/XR chest 2V IMPRESSION: No acute cardiopulmonary findings. Electronically signed by: Jalen Mays MD 06/13/2024 11:46 AM EDT
--- NOTE | ~2024-06-13 | MR_ITS ---
EXAMINATION: MR cervical spine without contrast MRI thoracic spine without contrast CLINICAL INDICATION: Multiple sclerosis. COMPARISON: None available. TECHNIQUE: Multiplanar multisequence MR imaging of the cervical and thoracic spine without administration of intravenous contrast. FINDINGS: Significant motion artifact is present. The visualized spinal cord is normal in caliber. Evaluation for abnormal cord signal is significantly limited by motion. CERVICAL SPINE: The imaged posterior fossa is unremarkable. Straightening of the normal cervical lordosis. Mild retrolisthesis at C5-6 and C6-7. Sequelae of anterior spinal fusion at C3-4. There is also hardware spanning C4-C7. Otherwise, the vertebral body heights are preserved. C2-3: No significant spinal canal or neural foraminal narrowing. C3-4: Bilateral facet arthrosis. Mild left neural foraminal narrowing. No significant spinal canal stenosis. C4-5: Disc osteophyte complex and bilateral facet arthrosis. Severe left and moderate to severe right neural foraminal narrowing. No significant spinal canal stenosis. C5-6: Disc osteophyte complex, bilateral uncovertebral hypertrophy, bilateral facet arthrosis. Severe left and moderate right neural foraminal narrowing. No significant spinal canal stenosis. C6-7: Disc osteophyte complex, bilateral uncovertebral hypertrophy, and bilateral facet arthrosis. Severe bilateral neural foraminal narrowing. No significant spinal canal stenosis. C7-T1: Disc osteophyte complex and bilateral facet arthrosis. Mild to moderate left neural foraminal narrowing. THORACIC SPINE: Preservation of the normal thoracic kyphosis. No listhesis. No definitive evidence of acute bone marrow abnormality. The vertebral body heights are preserved. Multilevel disc desiccation and disc height loss. Multilevel endplate osteophytosis. There are disc bulges at all levels of the thoracic spine as well as facet arthrosis. There is no significant spinal canal stenosis or neural foraminal narrowing throughout the thoracic spine. The paravertebral soft tissues are unremarkable. MR/MR thoracic spine wo con IMPRESSION: -Evaluation for abnormal cord signal is significantly limited by motion. -Multilevel degenerative changes of the cervical spine. Sequelae of C3-4 anterior spinal fusion as well as additional hardware at C4-C7. -Severe neural foraminal narrowing at C4-C5, C5-C6 and C6-C7. -Multilevel thoracic spondylosis without significant spinal canal or neural foraminal narrowing. Electronically signed by: Hailee Wallace MD 06/13/2024 02:14 PM EDT RP
--- NOTE | ~2024-06-13 | CT_ITS ---
EXAMINATION: CT ABDOMEN AND PELVIS WITHOUT CONTRAST CLINICAL INFORMATION: Elevated lipase COMPARISON: Abdominal ultrasound 05/16/2023, CT abdomen pelvis 05/12/2023 TECHNIQUE: Multidetector volumetric imaging was performed from the superior aspect of the liver through the pubic symphysis. Sagittal and coronal reformatted images were obtained on the technologist's workstation. This CT examination was performed using dose optimization techniques as appropriate, variously including the following: *Automated exposure control *Adjustment of mA and/or kV according to patient size (this includes techniques or standardized protocols for targeted exams where dose is matched to indication/reason for exam; i.e. extremities or head) *Use of iterative reconstruction technique DLP: 554 mGy-cm FINDINGS: LUNG BASES: The visualized lung bases are unremarkable. LIVER, GALLBLADDER, AND BILIARY TREE: The liver is enlarged at 18 cm in greatest length. Attenuation is normal. No focal hepatic lesion or biliary ductal dilatation is present. Status post cholecystectomy. PANCREAS: There is marked motion artifact in the upper abdomen interfering with detail. There is likely some subtle streaky changes in the peripancreatic fat that could represent pancreatitis. A CT scan with adequate breath-holding and IV contrast administration would be helpful. No pancreatic ductal dilatation is seen and no pancreatic mass is identified on this limited exam. SPLEEN: Spleen is mildly enlarged at 12.3 cm. ADRENAL GLANDS: Unremarkable. KIDNEYS AND URETERS: The kidneys are normal in size, shape, and attenuation. No hydronephrosis, hydroureter, or calculi seen. There is a mass at the lower pole the left kidney measuring 2.6 x 2.1 x 2.4 cm that contains macroscopic fat consistent with a benign angiomyolipoma.. BLADDER: Unremarkable. GASTROINTESTINAL TRACT: The small and large bowel are unremarkable. Moderate stool present in the colon. No evidence of appendicitis. ABDOMINAL WALL: No significant hernia is appreciated. LYMPH NODES: Normal. VASCULAR: Unremarkable. PELVIC VISCERA: The uterus is lobular and contains fibroids as could be seen on prior pelvic ultrasound exams. OSSEOUS STRUCTURES: Mild degenerative changes are present in the spine. Minimal grade 1 anterolisthesis of L5 upon S1. CT/CT abdomen pelvis wo IV con IMPRESSION: 1. There is marked motion artifact in the upper abdomen interfering with detail. There is likely some subtle streaky changes in the peripancreatic fat that could represent pancreatitis. A CT scan with adequate breath-holding and IV contrast administration would be helpful. 2. Incidental note made of mild hepatosplenomegaly, benign left renal angiomyolipoma, uterine fibroids and degenerative changes in the spine. Fleischner guidelines were followed. Electronically signed by: Sorin Lanier MD 06/13/2024 03:34 PM EDT RP
--- NOTE | 2024-06-13 09:45 | ED.BACK ---
HPI - Back Pain/Injury General Chief Complaint: Back Pain/Injury Stated Complaint: LEG/LOW BACK PAIN,NO INJURY PER EMS Time Seen by Provider: 06/13/24 09:44 Source: patient and EMS Mode of arrival: EMS Limitations: no limitations History of Present Illness HPI Narrative: 53 year old female HTN, atopic disorder, hx substance abuse, T2DM likely bipolar disorder as she is allergic to lithium and multiple other antipyschotics SI with attempts in the past. Who is here for back pain. She states she has MS and is having a flare followed by Dr. Johnson at [facility]. Patient has multiple visits here but no documented issues with MS. Patient states she recently returned [place] and states she is followed at [facility] for her MS. She has not made an appointment there states she is supposed to be on some kind of infusion. MD elicited complaint: back pain Related Data Home Medications ?Medication ?Instructions ?Recorded ?Confirmed apixaban 5 mg tablet (Eliquis) 5 mg PO BID 08/25/20 05/28/24 blood sugar diagnostic (FreeStyle #10 ea 08/25/20 03/18/21 Lite Strips) lancets 28 gauge (FreeStyle #100 ea 08/25/20 03/18/21 Lancets) nebulizers (AeroEclipse II #1 ea 08/25/20 03/18/21 Nebulizer) pen needle, diabetic 32 gauge x #50 ea 08/25/20 03/18/21 (Comfort EZ Pen Alvin) atorvastatin 40 mg tablet 1 tab PO DAILY 06/07/22 05/28/24 buprenorphine 8 mg-naloxone 2 mg 1 strip sublingual DAILY 06/07/22 05/28/24 sublingual film (Suboxone) cholecalciferol (vitamin D3) 25 1 cap PO DAILY 06/07/22 05/28/24 mcg (1,000 unit) capsule (Vitamin D3) insulin glargine 100 unit/mL (3 25 unit subcut BEDTIME 06/07/22 05/28/24 mL) subcutaneous pen (Lantus Solostar U-100 Insulin) losartan 100 mg tablet 1 tab PO DAILY 06/07/22 05/28/24 bisacodyl 5 mg tablet 5 mg PO DAILY PRN Constipation 05/11/23 05/28/24 docusate sodium 100 mg capsule 100 mg PO Q12H 05/11/23 05/28/24 metformin 500 mg tablet,extended 1,000 mg PO BID 05/11/23 05/28/24 release 24 hr topiramate 100 mg tablet 100 mg PO BEDTIME 05/11/23 05/28/24 acetaminophen 325 mg tablet 650 mg PO Q4H PRN pain 05/28/24 05/28/24 albuterol sulfate 2.5 mg/3 mL 2.5 mg inhalation Q4H PRN Wheezing 05/28/24 05/28/24 (0.083 %) solution for nebulization amlodipine 2.5 mg tablet 2.5 mg PO DAILY 05/28/24 05/28/24 bacitracin 500 unit/gram eye 1 appl ophthalmic (eye) DAILY 05/28/24 05/28/24 ointment cyclobenzaprine 10 mg tablet 10 mg PO BEDTIME PRN muscle spasm 05/28/24 05/28/24 diphenhydramine HCl 25 mg tablet 25 mg PO Q8H PRN allergies 05/28/24 05/28/24 famotidine 10 mg tablet 10 mg PO Q12H 05/28/24 05/28/24 fluticasone propionate 50 2 spray intranasal BEDTIME 05/28/24 05/28/24 mcg/actuation nasal spray,suspension ibuprofen 600 mg tablet 600 mg PO Q6H PRN Pain 05/28/24 05/28/24 insulin lispro 100 unit/mL See Protocol subcut TIDAC 05/28/24 05/28/24 subcutaneous pen levothyroxine 25 mcg tablet 25 mcg PO DAILY@0600 05/28/24 05/28/24 lidocaine 5 % topical patch 1 patch topical BID PRN pain 05/28/24 05/28/24 mometasone 200 mcg/actuation HFA 2 puff inhalation BID 05/28/24 05/28/24 aerosol inhaler multivitamin 1 tab PO DAILY 05/28/24 05/28/24 naloxone 0.4 mg/mL injection 0.4 mg subcut Q2M PRN Chest Pain 05/28/24 05/28/24 solution prazosin 2 mg capsule 2 mg PO BID 05/28/24 05/28/24 pregabalin 25 mg capsule 25 mg PO BEDTIME 05/28/24 05/28/24 sennosides 8.6 mg tablet 17.2 mg PO BEDTIME PRN Constipation 05/28/24 05/28/24 trazodone 100 mg tablet 100 mg PO BEDTIME 05/28/24 05/28/24 Previous Rx's ?Medication ?Instructions ?Recorded albuterol sulfate 90 mcg/actuation 2 puff inhalation RQ4H PRN 07/25/22 aerosol inhaler (Ventolin HFA) wheezing #0 grams doxepin 25 mg capsule 25 mg PO BEDTIME 30 days #30 caps 07/25/22 aripiprazole 5 mg tablet (Abilify) 5 mg PO DAILY #14 tabs 05/17/23 prazosin 1 mg capsule 1 mg PO DAILY #14 caps 05/17/23 prednisone 10 mg tablet See Rx Instructions .Route 05/29/24 .COMPLEX #45 tabs Allergies Allergy/AdvReac Type Severity Reaction Status Date / Time Iodinated Contrast Media Allergy Severe THROAT Verified 06/13/24 09:53 [IV CONTRAST] CLOSING lithium [LITHIUM] Allergy Intermediate AGGRESSION, Verified 06/13/24 09:53 stiffened up & throat closing (moderate to severe) fluoxetine [FLUOXETINE] Allergy Mild ITCHING, Verified 06/13/24 09:53 Suicidal risperidone [From RISPERDAL] Allergy Mild ITCHING Verified 06/13/24 09:53 asparagus [ASPARAGUS] Allergy Unknown unknown Verified 06/13/24 09:53 divalproex sodium Allergy Unknown UNKNOWN, Verified 06/13/24 09:53 [From DEPAKOTE] stiffened up, locked jaw lisinopril [LISINOPRIL] Allergy Unknown COUGH Verified 06/13/24 09:53 olanzapine Allergy Unknown can't Verified 06/13/24 09:53 recall if hives or increased pollen extracts [POLLEN] Allergy Unknown unknown Verified 06/13/24 09:53 tomato [TOMATO] Allergy Unknown UNKNOWN Verified 06/13/24 09:53 quetiapine [From SEROQUEL] AdvReac Intermediate OVERSEDATIO Verified 06/13/24 09:53 N BROCCOLI Allergy Unknown Unknown Uncoded 06/13/24 09:53 FUMARATE Allergy Unknown Unknown Uncoded 06/13/24 09:53 GREEN CHEUNG Allergy Unknown Unknown Uncoded 06/13/24 09:53 TOMATO Allergy Unknown Unknown Uncoded 06/13/24 09:53 Review of Systems Review of Systems: Review of systems: General: Patient denies any fever chills recent illness or falls Musculoskeletal: back pain denies any body aches or other injuries HEENT: denies headache, runny nose, ear pain Respiratory: denies shortness of breath, cough Cardiovascular: no chest pain or palpitations : denies dysuria, frequency Abdomen: no nausea vomiting denies abdominal pain Extremities: no swelling, no pain Skin: no diaphoresis Yes all other systems are reviewed and are negative PMFSH Past Medical History Medical History Excoriation (skin-picking) disorder Back pain GERD (gastroesophageal reflux disease) Peripheral neuropathy PTSD (post-traumatic stress disorder) Mood disorder Elevated cholesterol Fibromyalgia Chronic back pain DDD (degenerative disc disease) Ovarian cyst Kidney stone Normal colonoscopy Lesion of bladder Suicide attempt Depression IBS (irritable bowel syndrome) Obesity (BMI 30-39.9) Endometriosis History of pulmonary embolus (PE) History of DVT (deep vein thrombosis) Diabetes mellitus Asthma HTN (hypertension) Anxiety Multiple sclerosis Surgical History History of lithotripsy History of cystoscopy S/P endometrial ablation H/O neck surgery Hx of dilation and curettage Hx of tubal ligation Hx of appendectomy Hx of cholecystectomy Family History Family History Mother Rheumatoid arteritis COPD (chronic obstructive pulmonary disease) Father HTN (hypertension) Diabetes mellitus Social History Social History Household Members: None Housing: Homeless Do you presently have visiting nurse or other home services: No Alcohol intake: current Alcohol intake frequency: does not drink 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 TO BE EVALUATED BY RN Patient Tobacco Use Status: Current everyday Tobacco user Tobacco use type: Cigarette Cigarettes Per Day: 5 Years Smoked: 39 e-Cigarette/Vaping Use: Currently Using Second Hand Smoke Exposure: No Substance Use Type: Crack/Cocaine and Marijuana Substance Use Frequency Other:: last crack use day before yesterday, 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 Advance Directives: Yes Advance Directives on File: Yes Advance Directives Date on File: 05/28/24 Do you have a plan to hurt others: No Plan Patient : No service: No Sexual orientation: Straight/Heterosexual Gender identity: Female Physical Exam Vital Signs: Vital Signs: Last Vital Signs Temp 98.4 F 06/13/24 13:44 Pulse 80 06/13/24 13:44 Resp 12 06/13/24 13:44 BP 136/67 06/13/24 13:44 Pulse Ox 96 06/13/24 13:44 O2 Del Method Room Air 06/13/24 13:44 BMI result Body Mass Index 30.7 General: Well-appearing well-nourished in no signs of distress laying on her side. Moans loudly whenever touched or moves HEENT: Normocephalic atraumatic Neck: No signs of JVD, no masses no tenderness or lymphadenopathy Cardiovascular: Regular rate and rhythm Respiratory: Clear to auscultation bilaterally Abdomen: Soft nontender no masses Extremities: Normal pedal pulses no signs of edema Skin: Dry warm no rashes Back: No tenderness full ROM negative straight leg test normal bilateral lower reflexes Course Course Course Narrative: 1039 Patient now followed by Dr. Winkler waiting for call back I did speak with director of emergency nursing Tayla who works with Neurology here who stated she would consult only after I hear from her Neurologist. Reevaluation(s) Reevaluation #1: I spoke with Dr. Winkler who states saw the patient in January 2023 and was trialed on an infusion. She did not ever follow up. She needs to follow up outpatient. He wants patient to get 1 gram of methylprednisolone daily for 5 days. He also wants a MRI to see if there is anything on exam. I again checked the patient's she states she has never been on any infusions for her MS she states she was in [place] was not treated she was never treated here and states he did not have insurance she is coming in today said she has could not move at home she does repeat that it is her entire body upper and lower extremity that are causing her symptoms today Reevaluation #2: I did speak with the Neurology Dr. Diaz come see the patient the patient will benefit from admission for Solu-Medrol infusions. Reevaluation #3: MRI limited due to motion by the patient. STill in the room sleeping most of the visit pending CT abdomen read and admission. Additional Reevaluation(s): CT is consistent with pancreatitis I will admit the patient to Medicine order another L of fluid Medications Administered Discontinued Medications Generic Name Dose Route Start Last Admin Trade Name Freq PRN Reason Stop Dose Admin Acetaminophen 650 mg 10/03/24 10:10 06/13/24 10:17 Acetaminophen 325 Mg Tablet PO 06/13/24 10:11 650 mg ONCE ONE Administration Methylprednisolone Sodium 66 mls @ 66 mls/hr 06/13/24 11:03 06/13/24 14:59 Succinate 1,000 mg/ Sodium IV 06/13/24 12:02 66 mls/hr Chloride ONCE ONE Administration Potassium Chloride 10 meq in 100 mls @ 100 mls/hr 06/13/24 12:00 06/13/24 14:59 Potassium Chloride/H20 IV 06/13/24 12:59 Infused ONCE ONE Infusion Sodium Chloride 1,000 mls @ 999 mls/hr 06/13/24 12:15 06/13/24 14:59 Ns IV 06/13/24 13:15 Infused .Q1H1M ISI Infusion Insulin Human Lispro 5 unit 06/13/24 12:01 06/13/24 12:10 Insulin Lispro 100 Unit/Ml 3 Ml Vial SUBCUT 06/13/24 12:02 5 unit ONCE ONE Administration Protocol Ketorolac Tromethamine 15 mg 06/13/24 13:25 06/13/24 13:50 Ketorolac Tromethamine 15 Mg/Ml Vial IVPUSH 06/13/24 13:26 15 mg ONCE ONE Administration Lorazepam 1 mg 06/13/24 12:28 06/13/24 12:32 Lorazepam 2 Mg/Ml Vial IVPUSH 06/13/24 12:29 1 mg ONCE ONE Administration Potassium Chloride 40 meq 06/13/24 12:00 06/13/24 12:10 Potassium Chloride Er 20 Meq Tab.Er.Prt PO 06/13/24 12:01 40 meq ONCE ONE Administration Medical Decision Making Medical Decision Making [facility] Narrative: I will check labs start with Tylenol see finger hold if her neurologist and reassess. Differential Diagnosis Differential Diagnoses: The differential diagnosis associated with the presentation includes MS flare acute psychosis acute on chronic pain dehydration electrolyte abnormality Lab Data 06/13/24 10:40 06/13/24 10:40 Labs: Lab Results 06/13/24 06/13/24 06/13/24 Range/Units 10:22 10:40 13:48 WBC 8.7 (4.8-10.8) X10*3/uL RBC 4.52 (4.20-5.50) X10*6/uL Hgb 13.4 (12.0-16.0) g/dl Hct 38.3 (37.0-47.0) % MCV 84.7 (80.0-98.0) fL MCH 29.6 (27.0-33.0) pg MCHC 35.0 (31.0-35.0) g/dl RDW 12.3 (11.0-16.0) % Plt Count 231 (160-400) X10*3/uL MPV 10.0 (9.4-12.3) fL Immature Gran % (Auto) 0.2 (0.0-0.4) % Neut % (Auto) 68.6 (45-73) % Lymph % (Auto) 23.1 (20-40) % [place] % (Auto) 5.5 (2-11) % Eos % (Auto) 2.0 (0-4) % Baso % (Auto) 0.6 (0-2) % Lymph # (Auto) 2.0 (1.2-4.9) X10*3/uL [place] # (Auto) 0.5 (0.1-1.2) X10*3/uL Eos # (Auto) 0.2 (0.0-0.4) X10*3/uL Baso # (Auto) 0.1 (0.0-0.2) X10*3/uL Abs Immat Gran (auto) 0.02 (0.00-0.03) X10*3/uL Absolute Neuts (auto) 5.9 (2.0-8.3) x10*3/uL Absolute Nucleated RBC 0.000 (0.0-0.012) X10*3/uL Nucleated RBC % (auto) 0.0 (0.0-0.2) /100WBC Sodium 136 (135-145) mmol/L Potassium 3.3 D (3.3-5.1) mmol/L Chloride 106 (96-108) mmol/L Carbon Dioxide 21 L (22-29) mmol/L Anion Gap 12 (12-20) BUN 16 (9-16) mg/dL Creatinine 0.86 (0.5-1.4) mg/dL Estim Creat Clear Calc 74.0 Estimated GFR > 60 POC Glucose 282 H (60-115) mg/dL Random Glucose 453 H* (60-115) mg/dL Calcium 9.2 (8.4-10.2) mg/dL Total Bilirubin 0.4 (0.0-1.0) mg/dL Direct Bilirubin 0.1 (0.0-0.5) mg/dL AST 12 (5-31) U/L ALT 17 (0-31) U/L Alkaline Phosphatase 94 (39-117) U/L Total Protein 6.7 (6.5-8.0) g/dL Albumin 3.8 (3.5-5.0) g/dL Lipase 166 H (8-78) U/L Beta-Hydroxybutyrate 0.08 (0.02-0.27) mmol/L Urine Color Straw Urine Appearance Clear Urine pH 6.0 (5.0-9.0) Ur Specific [place] <= 1.005 (1.005-1.025) Urine Protein Negative (Neg-Trace) mg/dL Urine Glucose (UA) >=1000 H (Negative) mg/dL Urine Ketones Negative (Negative) mg/dL Urine Blood Negative (Negative) Urine Nitrite Negative (Negative) Ur Leukocyte Esterase Negative (Negative) Urine RBC 0-2 (0-2) /HPF Urine WBC 0-5 (0-5) /HPF Ur Squamous Epith Cells 0-2 (0-2) /HPF Urine Bacteria None Seen (None Seen) Hyaline Casts 0-2 (0-2) /LPF Urine Opiates Screen Not Detected (Not Detect) Ur Buprenorphine Scrn Positive H (Not Detect) ng/mL Ur Oxycodone Screen Not Detected (Not Detect) ng/mL Urine Methadone Screen Not Detected (Not Detect) ng/mL Urine Fentanyl Screen Not Detected (Not Detect) Ur Barbiturates Screen Not Detected (Not Detect) Ur Phencyclidine Scrn Not Detected (Not Detect) Ur Amphetamines Screen Not Detected (Not Detect) U Benzodiazepines Scrn Not Detected (Not Detect) Urine Cocaine Screen POSITIVE H (Not Detect) U Marijuana (THC) Screen Not Detected (Not Detect) Critical Care Time Critical Care Time Critical Care Time: Yes Total Critical Care Time: 60 Attestation: Patient came in with an MS flare requiring also found to have hyperglycemia and elevated lipase. I did have to speak with her neurologist as well as the neurologist here at [facility]. I did spend time taking care of this patient as well as controlling her blood sugar reviewing labs arranging MRI and CT. Discharge Plan Discharge Clinical Impression: Multiple sclerosis exacerbation, Weakness, Back pain, Acute hyperglycemia, Elevated lipase, Pancreatitis Patient Disposition: Admitted As Inpatient Print Language: [place]se
--- NOTE | 2024-06-13 10:01 | PC.NURSE ---
patient comes from home via EMS with cc of back pain radiating down bilateral legs. patient states she has a hx of MS and feels as if she is having a flare up. states she recently got back from [place] and needs to reestablish care with her neurologist for infusions again, she has been without treatment for a while. patient states she cannot lay flat on her back, endorsing pain upon palpation with her whole back,patient endorsing weakness to bilateral lower extremities as well. patient endorsing the pain as 8/10, denies any fevers, chills or sick contacts. MD at bedside to evaluate VSS at this time, provided with jaqui, plan of care remains ongoing
[2024-06-13] MEDS: Acetaminophen 325 MG TABLET 650 MG PO (10:17)
--- NOTE | 2024-06-13 10:36 | PC.NURSE ---
patient difficult stick, this rn attempt x2 to obtain IV and blood work, unsuccessful. EDT at bedside for straight stick, patient states they usually need to use an ultrasound for IVs. urine sample obtained. patient states to this RN that she does not want narcotics for pain relief, states she stopped using suboxone about 6 days ago and also feels as if she is in withdrawal. MD aware.
--- NOTE | 2024-06-13 10:39 | MHC.EDTECH ---
CALL OUT TO [facility] [phone], MESSAGE LEFT TO CALL DR CHILDERS BACK PT SEES DR LO DR ALDRIDGE NO LONGER WORKS THERE.
[2024-06-13 10:43] LABS: Appearance Urine Clear; Color Urine Straw; Glucose Urine UA >=1000 mg/dL (Negative); Leukocyte Esterase Urine Negative (Negative); Nitrite Urine Negative (Negative); Specific Gravity - Urine <= 1.005 (1.005-1.025); UMIC TRIGGER UACC YES; Urine Blood Negative (Negative); Urine Ketones Negative (Negative); Urine Protein Negative (Neg-Trace)
[2024-06-13 10:46] LABS: MANUAL DIFF FLAG NO
[2024-06-13 10:46] LABS: Bacteria Urine None Seen (None Seen); Hyaline Casts Urine 0-2 /LPF (0-2); RBC Urine 0-2 /HPF (0-2); Squamous Epithelial Cell Urine 0-2 /HPF (0-2); WBC Urine 0-5 /HPF (0-5)
[2024-06-13 10:55] LABS: Basophils Absolute Auto 0.1 X10*3/uL (0.0-0.2); Basophils Percent Auto 0.6 % (0-2); Eosinophils Absolute Auto 0.2 X10*3/uL (0.0-0.4); Hematocrit 38.3 % (37.0-47.0); Hemoglobin 13.4 g/dl (12.0-16.0); Imm Gran Abs Auto 0.02 X10*3/uL (0.00-0.03); Imm Gran Pct Auto 0.2 % (0.0-0.4); Lymphocytes Percent Auto 23.1 % (20-40); Mean Corpuscular Hemoglobin 29.6 pg (27.0-33.0); Mean Corpuscular Volume 84.7 fL (80.0-98.0); Monocytes Absolute Auto 0.5 X10*3/uL (0.1-1.2); Monocytes Percent Auto 5.5 % (2-11); Neutrophils Absolute Auto 5.9 x10*3/uL (2.0-8.3); Neutrophils Percent Auto 68.6 % (45-73); Platelet Count 231 X10*3/uL (160-400); Red Blood Count 4.52 X10*6/uL (4.20-5.50); Red Cell Distribution Width 12.3 % (11.0-16.0); White Blood Count 8.7 X10*3/uL (4.8-10.8)
[2024-06-13 10:59] LABS: Amphetamine Screen Urine Not Detected (Not Detect); Barbiturates, Urine Not Detected (Not Detect); Benzodiazepines Screen Urine Not Detected (Not Detect); Buprenorphine Scr Positive (Not Detect); Cannabinoid Screen Urine Not Detected (Not Detect); Cocaine Screen Urine POSITIVE (Not Detect); Fentanyl, urine Not Detected (Not Detect); Methadone Screen, Urine Not Detected (Not Detect); Opiate Screen Urine Not Detected (Not Detect); Oxycodone Screen Urine Not Detected (Not Detect); Phencyclidine Screen Urine Not Detected (Not Detect)
[2024-06-13 11:08] LABS: Alanine Aminotransferase 17 U/L (0-31); Albumin Level 3.8 g/dL (3.5-5.0); Alkaline Phosphatase 94 U/L (39-117); Anion Gap 12 (12-20); Aspartate Amino Transferase 12 U/L (5-31); Bilirubin Direct 0.1 mg/dL (0.0-0.5); Bilirubin Total 0.4 mg/dL (0.0-1.0); Blood Urea Nitrogen 16 mg/dL (9-16); Calcium 9.2 mg/dL (8.4-10.2); Carbon Dioxide 21 mmol/L (22-29); Chloride 106 mmol/L (96-108); Estimated Glomerular Filt Rate > 60; Glucose Random 453 mg/dL (60-115); Lipase 166 U/L (8-78); Potassium 3.3 mmol/L (3.3-5.1); Sodium 136 mmol/L (135-145); Total Protein 6.7 g/dL (6.5-8.0)
--- NOTE | 2024-06-13 11:46 | PC.NURSE ---
MRI screening completed with patient, Tee RN to look for IV access
[2024-06-13] MEDS: Insulin Lispro 100 UNIT/ML 3 ML VIAL SUBCUT ×2 (12:10→23:09)
[2024-06-13] MEDS: Potassium Chloride ER 20 MEQ TAB.ER.PRT 40 MEQ PO (12:10)
[2024-06-13] MEDS: Potassium Chloride/H20 10 MEQ/100 ML PIGGYBACK 100 MEQ IV (12:12)
[2024-06-13] MEDS: 0.9 % Sodium Chloride 1,000 ML 999 ML IV ×3 (12:12→21:37)
--- NOTE | 2024-06-13 12:17 | PC.NURSE ---
delay in medication administration due to single IV access. pt to MRI at this time, will medicate upon her return
[2024-06-13 12:25] LABS: Beta-Hydroxybutyrate 0.08 mmol/L (0.02-0.27)
[2024-06-13] MEDS: LORazepam 2 MG/ML VIAL 1 MG IVPUSH (12:32)
--- NOTE | 2024-06-13 13:20 | PC.NURSE ---
patient remains at MRI at this time
[2024-06-13] MEDS: Ketorolac Tromethamine 15 MG/ML VIAL IVPUSH (13:50)
[2024-06-13 13:52] LABS: Glucose, Whole Blood 282 mg/dL (60-115)
--- NOTE | 2024-06-13 13:52 | PC.NURSE ---
patient returned from MRI, patient IVs stopped in MRI for scan, delay in medication administration, potassium still running at this time, medicated with torodol per NOV.
[2024-06-13] MEDS: methylPREDNISolone Sod Succ 1,000 MG in 0.9 % Sodium Chloride 50 ML 66 MG IV (14:59)
--- NOTE | 2024-06-13 15:45 | PC.NURSE ---
patient resting comfortably on stretcher, requesting bedpan, placed on bedpan by this RN, patient offered pure wick, placed by this RN, requesting food, patient educated that we are waiting for her CT scan results to come back before she can eat, agreeable at this time
--- NOTE | 2024-06-13 16:22 | PM.NEUROCN ---
History of Present Illness Data of Consult Service Date: 06/13/24 Primary Care Provider: Tyesha Rogers MD HPI Reason for consult: Back pain 53 years old woman with previous history of multiple drug abuse and overdose with admission to psychiatric floor. Apparently she also carried diagnosis of multiple sclerosis and was following [facility] neurology but has not seen her neurologist for about a year. She said she was in [place] for 9 months and came back on her own without any assisted device for walking. Few days ago she developed back pain that affected her ability to walk in she came to emergency room. Pain was sharp in her lower back. She was also having difficulty urinating and frequent urination. She denied any fever chills. Review of Systems Review of Systems: Severe low back pain and difficulty urination PMFSH Past Medical History Medical History Excoriation (skin-picking) disorder Back pain GERD (gastroesophageal reflux disease) Peripheral neuropathy PTSD (post-traumatic stress disorder) Mood disorder Elevated cholesterol Fibromyalgia Chronic back pain DDD (degenerative disc disease) Ovarian cyst Kidney stone Normal colonoscopy Lesion of bladder Suicide attempt Depression IBS (irritable bowel syndrome) Obesity (BMI 30-39.9) Endometriosis History of pulmonary embolus (PE) History of DVT (deep vein thrombosis) Diabetes mellitus Asthma HTN (hypertension) Anxiety Multiple sclerosis Family History Family History Mother Rheumatoid arteritis COPD (chronic obstructive pulmonary disease) Father HTN (hypertension) Diabetes mellitus Surgical History Surgical History History of lithotripsy History of cystoscopy S/P endometrial ablation H/O neck surgery Hx of dilation and curettage Hx of tubal ligation Hx of appendectomy Hx of cholecystectomy Social History Social History Household Members: None Housing: Homeless Do you presently have visiting nurse or other home services: No Alcohol intake: current Alcohol intake frequency: does not drink Comment: SEEKING [employer] SERVICE TO BE EVALUATED BY RN Patient Tobacco Use Status: Current everyday Tobacco user Tobacco use type: Cigarette Cigarettes Per Day: 5 Years Smoked: 39 e-Cigarette/Vaping Use: Currently Using Second Hand Smoke Exposure: No Substance Use Type: Crack/Cocaine and Marijuana Substance Use Frequency Other:: last crack use day before yesterday, 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 Advance Directives: Yes Advance Directives on File: Yes Advance Directives Date on File: 05/28/24 Do you have a plan to hurt others: No Plan Patient : No service: No Sexual orientation: Straight/Heterosexual Gender identity: Female Meds Allergies Allergy/AdvReac Type Severity Reaction Status Date / Time Iodinated Contrast Media Allergy Severe THROAT Verified 06/13/24 09:53 [IV CONTRAST] CLOSING lithium [LITHIUM] Allergy Intermediate AGGRESSION, Verified 06/13/24 09:53 stiffened up & throat closing (moderate to severe) fluoxetine [FLUOXETINE] Allergy Mild ITCHING, Verified 06/13/24 09:53 Suicidal risperidone [From RISPERDAL] Allergy Mild ITCHING Verified 06/13/24 09:53 asparagus [ASPARAGUS] Allergy Unknown unknown Verified 06/13/24 09:53 divalproex sodium Allergy Unknown UNKNOWN, Verified 06/13/24 09:53 [From DEPAKOTE] stiffened up, locked jaw lisinopril [LISINOPRIL] Allergy Unknown COUGH Verified 06/13/24 09:53 olanzapine Allergy Unknown can't Verified 06/13/24 09:53 recall if hives or increased pollen extracts [POLLEN] Allergy Unknown unknown Verified 06/13/24 09:53 tomato [TOMATO] Allergy Unknown UNKNOWN Verified 06/13/24 09:53 quetiapine [From SEROQUEL] AdvReac Intermediate OVERSEDATIO Verified 06/13/24 09:53 N BROCCOLI Allergy Unknown Unknown Uncoded 06/13/24 09:53 FUMARATE Allergy Unknown Unknown Uncoded 06/13/24 09:53 GREEN CHEUNG Allergy Unknown Unknown Uncoded 06/13/24 09:53 TOMATO Allergy Unknown Unknown Uncoded 06/13/24 09:53 Active Medications: Current Medications Sodium Chloride (Ns) 1,000 mls @ 999 mls/hr IV .Q1H1M ISI Stop: 06/13/24 16:30 Last Admin: 06/13/24 16:04 Dose: 999 mls/hr Home Medications ?Medication ?Instructions ?Recorded ?Confirmed ?Last Taken ?Type apixaban 5 mg tablet (Eliquis) 5 mg PO BID 08/25/20 05/28/24 05/28/24 06:00 History blood sugar diagnostic (Nyasia #10 ea 08/25/20 03/18/21 Unknown History Lite Strips) lancets 28 gauge (FreeStyle #100 ea 08/25/20 03/18/21 Unknown History Lancets) nebulizers (AeroEclipse II #1 ea 08/25/20 03/18/21 Unknown History Nebulizer) pen needle, diabetic 32 gauge x #50 ea 08/25/20 03/18/21 Unknown History (Comfort EZ Pen [place]) atorvastatin 40 mg tablet 1 tab PO DAILY 06/07/22 05/28/24 05/28/24 06:00 History buprenorphine 8 mg-naloxone 2 mg 1 strip sublingual DAILY 06/07/22 05/28/24 05/28/24 06:00 History sublingual film (Suboxone) cholecalciferol (vitamin D3) 25 1 cap PO DAILY 06/07/22 05/28/24 05/28/24 06:00 History mcg (1,000 unit) capsule (Vitamin D3) insulin glargine 100 unit/mL (3 25 unit subcut BEDTIME 06/07/22 05/28/24 05/27/24 History mL) subcutaneous pen (Lantus Solostar U-100 Insulin) losartan 100 mg tablet 1 tab PO DAILY 06/07/22 05/28/24 05/28/24 06:00 History bisacodyl 5 mg tablet 5 mg PO DAILY PRN Constipation 05/11/23 05/28/24 Unknown History docusate sodium 100 mg capsule 100 mg PO Q12H 05/11/23 05/28/24 05/28/24 06:00 History metformin 500 mg tablet,extended 1,000 mg PO BID 05/11/23 05/28/24 05/28/24 06:00 History release 24 hr topiramate 100 mg tablet 100 mg PO BEDTIME 05/11/23 05/28/24 05/27/24 History acetaminophen 325 mg tablet 650 mg PO Q4H PRN pain 05/28/24 05/28/24 Unknown History albuterol sulfate 2.5 mg/3 mL 2.5 mg inhalation Q4H PRN Wheezing 05/28/24 05/28/24 Unknown History (0.083 %) solution for nebulization amlodipine 2.5 mg tablet 2.5 mg PO DAILY 05/28/24 05/28/24 05/28/24 06:00 History bacitracin 500 unit/gram eye 1 appl ophthalmic (eye) DAILY 05/28/24 05/28/24 05/28/24 06:00 History ointment cyclobenzaprine 10 mg tablet 10 mg PO BEDTIME PRN muscle spasm 05/28/24 05/28/24 Unknown History diphenhydramine HCl 25 mg tablet 25 mg PO Q8H PRN allergies 05/28/24 05/28/24 Unknown History famotidine 10 mg tablet 10 mg PO Q12H 05/28/24 05/28/24 05/28/24 06:00 History fluticasone propionate 50 2 spray intranasal BEDTIME 05/28/24 05/28/24 05/27/24 History mcg/actuation nasal spray,suspension ibuprofen 600 mg tablet 600 mg PO Q6H PRN Pain 05/28/24 05/28/24 Unknown History insulin lispro 100 unit/mL See Protocol subcut TIDAC 05/28/24 05/28/24 05/27/24 History subcutaneous pen levothyroxine 25 mcg tablet 25 mcg PO DAILY@0600 05/28/24 05/28/24 05/28/24 06:00 History lidocaine 5 % topical patch 1 patch topical BID PRN pain 05/28/24 05/28/24 Unknown History mometasone 200 mcg/actuation HFA 2 puff inhalation BID 05/28/24 05/28/24 05/28/24 06:00 History aerosol inhaler multivitamin 1 tab PO DAILY 05/28/24 05/28/24 05/28/24 06:00 History naloxone 0.4 mg/mL injection 0.4 mg subcut Q2M PRN Chest Pain 05/28/24 05/28/24 Unknown History solution prazosin 2 mg capsule 2 mg PO BID 05/28/24 05/28/24 05/28/24 06:00 History pregabalin 25 mg capsule 25 mg PO BEDTIME 05/28/24 05/28/24 05/27/24 History sennosides 8.6 mg tablet 17.2 mg PO BEDTIME PRN Constipation 05/28/24 05/28/24 05/27/24 History trazodone 100 mg tablet 100 mg PO BEDTIME 05/28/24 05/28/24 05/27/24 History Physical Exam Vital Signs: Vital Signs: Last Vital Signs Temp 98.4 F 06/13/24 13:44 Pulse 80 06/13/24 13:44 Resp 12 06/13/24 13:44 BP 136/67 06/13/24 13:44 Pulse Ox 96 06/13/24 13:44 O2 Del Method Room Air 06/13/24 13:44 BMI result Body Mass Index 30.7 Neuro: Other: She is alert and awake with normal spontaneity of speech fluency comprehension and affect. Pupils are equal and reactive to light. Visual field examination seem to suggest left hemianopsia. There is no focal arm or leg weakness and she is able to lift both legs up against gravity though was moaning with pain. Deep tendon reflexes were trace to absent with flexor plantars. Speech was normal. Results Labs 06/13/24 10:40 06/13/24 10:40 Labs: Short CBC 06/13/24 Range/Units 10:40 WBC 8.7 (4.8-10.8) X10*3/uL Hgb 13.4 (12.0-16.0) g/dl Hct 38.3 (37.0-47.0) % Plt Count 231 (160-400) X10*3/uL BMP 06/13/24 10:40 Sodium 136 Potassium 3.3 D Chloride 106 Carbon Dioxide 21 L BUN 16 Creatinine 0.86 Calcium 9.2 Liver Function 06/13/24 Range/Units 10:40 Total Bilirubin 0.4 (0.0-1.0) mg/dL Direct Bilirubin 0.1 (0.0-0.5) mg/dL AST 12 (5-31) U/L ALT 17 (0-31) U/L Alkaline Phosphatase 94 (39-117) U/L Albumin 3.8 (3.5-5.0) g/dL Urine 06/13/24 Range/Units 10:22 Urine Color Straw Urine Appearance Clear Urine pH 6.0 (5.0-9.0) Ur Specific [place] <= 1.005 (1.005-1.025) Urine Protein Negative (Neg-Trace) mg/dL Urine Glucose (UA) >=1000 H (Negative) mg/dL Her initial blood glucose was 453, lipase level was 166, and CT abdomen suggested pancreatitis. Assessment and Plan (1) Back pain: Qualifiers: Back pain location: low back pain Chronicity: acute Back pain laterality: unspecified Sciatica presence: unspecified whether sciatica present Qualified Code(s): M54.50 - Low back pain, unspecified Status: Acute 53 years old woman with history of drug abuse including positive test for cocaine, uncontrolled hyperglycemia, and possible pancreatitis, which could explain her back pain and associated difficulty walking. As far as issue of multiple sclerosis is concerned, I do not think it is an active issue at this time and she should have treatment for other issues and then see her primary neurologist as an outpatient. Procedures Date of Service Date of Service: 06/13/24
--- NOTE | 2024-06-13 17:26 | PHA.MEDREC ---
Pharmacy Consult ? Medication Reconciliation Pharmacy has completed the medication reconciliation. carpet technician went down to interview patient. Patient seem irritated and told human service technician that she takes all her medications that she picks up from [facility]. Used pharmacy claims from both [facility] and [facility], also utilized PDMP. Med list was done with most recent claims.
--- NOTE | 2024-06-13 18:31 | P.HPHOSP_ITS ---
History of Present Illness Date of Service: 06/13/24 Chief Complaint: Generalized pain/unsteady gait 53-year-old female patient with past medical history significant for PE on Eliquis, hyperlipidemia, hypertension, MS, insulin-dependent diabetes mellitus type 2, asthma, cocaine and opiate use disorder, PTSD and recurrent MDD with suicidal ideation, being followed at [facility] for MS, patient moved to [place] but after staying there for 9 months returned back to [place] on May 10 therefore not seen by her primary neurologist in last 1 year, patient presented to [place] ED today due to lower back and bilateral lower leg pain, able to ambulate without assistive device but feels unsteady and has been falling at home, denies associated fever chills, complaints of chronic headaches and dizziness, also complain of chronic abdominal pain, mostly cramping, acidity heartburn and nausea, complain of urinary frequency but no burning or dysuria, denies chest pain no shortness a breath no palpitations no hematemesis, no melena, no diarrhea , occasionally drinks alcohol smokes 5 cigarettes a day, recently relapsed on cocaine , on Suboxone denies opiate use denies IV drug use, workup in the ED showed urine toxicology positive for Suboxone and cocaine, lipase 166, normal LFTs, potassium 3.3, blood sugar 453 improved to 282 , chest x-ray unremarkable, cervical spine and thoracic spine MRI showed multilevel degenerative changes of cervical spine, severe neural foraminal narrowing at C4 C5, C5-C6 and C6-C7, multilevel thoracic spondylosis without significant spinal canal or neural foramina narrowing, CT abdomen and pelvis showed marked motion artifact, likely some subtle streaky changes in the peripancreatic fat that could represent pancreatitis, incidental note made of mild hepatosplenomegaly, benign left renal angiomyolipoma, uterine fibroids and degenerative changes in the spine. ED physician consulted patient is primary neurologist Dr. LO he recommend to treat patient with IV Solu-Medrol if noted to have cord lesions and to treat pain symptomatically, patient is now being admitted to [facility] for generalized pain difficulty in ambulation, abdominal pain and pancreatitis. Review of Systems 2 Review of Systems: General no fevers, no chills, chronic headaches and dizziness unchanged CVS no chest pain, no palpitation. Respiratory no cough no sob Gastrointestinal nausea, crampy abdominal pain no vomiting urinary frequency, no burning All other system reviewed and are negative [facility] Medical History Excoriation (skin-picking) disorder Back pain GERD (gastroesophageal reflux disease) Peripheral neuropathy PTSD (post-traumatic stress disorder) Mood disorder Elevated cholesterol Fibromyalgia Chronic back pain DDD (degenerative disc disease) Ovarian cyst Kidney stone Normal colonoscopy Lesion of bladder Suicide attempt Depression IBS (irritable bowel syndrome) Obesity (BMI 30-39.9) Endometriosis History of pulmonary embolus (PE) History of DVT (deep vein thrombosis) Diabetes mellitus Asthma HTN (hypertension) Anxiety Multiple sclerosis Family History Mother Rheumatoid arteritis COPD (chronic obstructive pulmonary disease) Father HTN (hypertension) Diabetes mellitus Surgical History History of lithotripsy History of cystoscopy S/P endometrial ablation H/O neck surgery Hx of dilation and curettage Hx of tubal ligation Hx of appendectomy Hx of cholecystectomy Social History Household Members: None Housing: Apartment Do you presently have visiting nurse or other home services: No Alcohol intake: current Alcohol intake frequency: does not drink Comment: SEEKING CTC OPERATOR SERVICE TO BE EVALUATED BY RN Patient Tobacco Use Status: Current everyday Tobacco user Tobacco use type: Cigarette Cigarettes Per Day: 5 Years Smoked: 39 e-Cigarette/Vaping Use: Currently Using Patient Interested in Nicotine Replacement: No Second Hand Smoke Exposure: No Use of substances other than those prescribed or required for medical reasons: Yes Substance Use Type: Crack/Cocaine and Marijuana Substance Use Frequency: Daily Substance Use Frequency Other:: last crack use day before yesterday, 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 Currently Displaying Signs/Symptoms of Drug Intoxication Withdrawal: No Have you been hit, kicked, punched, or otherwise hurt by someone within the past year? If so, by whom?: No Do you feel safe in your current relationship?: No Current Relationship Is there a partner from a previous relationship who is making you feel unsafe now?: No Are you made to feel afraid or neglected: No Advance Directives: Yes Advance Directives on File: Yes Advance Directives Date on File: 05/28/24 Do you have a plan to hurt others: No Plan Recently lost weight without trying: No Nutrition Risks: No Nutritional Risk Patient : No : No Poor oral hygiene: No service: No Sexual orientation: Straight/Heterosexual Gender identity: Female Meds Allergies Allergy/AdvReac Type Severity Reaction Status Date / Time Iodinated Contrast Media Allergy Severe THROAT Verified 06/13/24 09:53 [IV CONTRAST] CLOSING lithium [LITHIUM] Allergy Intermediate AGGRESSION, Verified 06/13/24 09:53 stiffened up & throat closing (moderate to severe) fluoxetine [FLUOXETINE] Allergy Mild ITCHING, Verified 06/13/24 09:53 Suicidal risperidone [From RISPERDAL] Allergy Mild ITCHING Verified 06/13/24 09:53 asparagus [ASPARAGUS] Allergy Unknown unknown Verified 06/13/24 09:53 divalproex sodium Allergy Unknown UNKNOWN, Verified 06/13/24 09:53 [From DEPAKOTE] stiffened up, locked jaw lisinopril [LISINOPRIL] Allergy Unknown COUGH Verified 06/13/24 09:53 olanzapine Allergy Unknown can't Verified 06/13/24 09:53 recall if hives or increased pollen extracts [POLLEN] Allergy Unknown unknown Verified 06/13/24 09:53 tomato [TOMATO] Allergy Unknown UNKNOWN Verified 06/13/24 09:53 quetiapine [From SEROQUEL] AdvReac Intermediate OVERSEDATIO Verified 06/13/24 09:53 N BROCCOLI Allergy Unknown Unknown Uncoded 06/13/24 09:53 FUMARATE Allergy Unknown Unknown Uncoded 06/13/24 09:53 GREEN [place]UNG Allergy Unknown Unknown Uncoded 06/13/24 09:53 TOMATO Allergy Unknown Unknown Uncoded 06/13/24 09:53 Active Medications: Current Medications Albuterol Sulfate (Albuterol Sulfate 90 Mcg 8 Gm Inhaler) 2 puff INHALE RQ4H PRN PRN Reason: wheezing Amlodipine Besylate (Amlodipine Besylate 2.5 Mg Tablet) 2.5 mg PO DAILY [facility]; Protocol Apixaban (Apixaban 5 Mg Tablet) 5 mg PO BID ISI Aripiprazole (Aripiprazole 5 Mg Tablet) 5 mg PO DAILY [facility] Atorvastatin Calcium (Atorvastatin Calcium 40 Mg Tablet) 40 mg PO DAILY [facility] Buprenorphine/Naloxone (Buprenorphine/Naloxone 8/2 Mg Film) 1 film SUBLINGUAL DAILY [facility] Insulin Glargine (Insulin Glargine,Hum.Rec.Anlog 100 Unit/Ml 10 Ml Vial) 25 unit SUBCUT BEDTIME ISI Levothyroxine Sodium (Levothyroxine Sodium 25 Mcg Tablet) 25 mcg PO DAILY@0600 ISI Pregabalin (Pregabalin 25 Mg Capsule) 25 mg PO BEDTIME ISI Vitamin D (Cholecalciferol (Vitamin D3) 25 Mcg Tablet) 25 mcg PO DAILY [facility] Home Medications ?Medication ?Instructions ?Recorded ?Confirmed ?Last Taken ?Type apixaban 5 mg tablet (Eliquis) 5 mg PO BID 08/25/20 06/13/24 05/28/24 06:00 History blood sugar diagnostic (FreeStyle #10 ea 08/25/20 03/18/21 Unknown History Lite Strips) lancets 28 gauge (FreeStyle #100 ea 08/25/20 03/18/21 Unknown History Lancets) nebulizers (AeroEclipse II #1 ea 08/25/20 03/18/21 Unknown History Nebulizer) pen needle, diabetic 32 gauge x #50 ea 08/25/20 03/18/21 Unknown History (Comfort EZ Pen Goff) atorvastatin 40 mg tablet 1 tab PO DAILY 06/07/22 06/13/24 05/28/24 06:00 History buprenorphine 8 mg-naloxone 2 mg 1 strip sublingual DAILY 06/07/22 06/13/24 05/28/24 06:00 History sublingual film (Suboxone) cholecalciferol (vitamin D3) 25 1 cap PO DAILY 06/07/22 06/13/24 05/28/24 06:00 History mcg (1,000 unit) capsule (Vitamin D3) insulin glargine 100 unit/mL (3 25 unit subcut BEDTIME 06/07/22 06/13/24 05/27/24 History mL) subcutaneous pen (Lantus Solostar U-100 Insulin) losartan 100 mg tablet 1 tab PO DAILY 06/07/22 06/13/24 05/28/24 06:00 History metformin 500 mg tablet,extended 500 mg PO BID 05/11/23 06/13/24 05/28/24 06:00 History release 24 hr acetaminophen 325 mg tablet 650 mg PO Q4H PRN pain 05/28/24 06/13/24 Unknown History amlodipine 2.5 mg tablet 2.5 mg PO DAILY 09/06/13/24 05/28/24 06:00 History insulin lispro 100 unit/mL 8 - 16 sliding scale dose subcut 05/28/24 06/13/24 05/27/24 History subcutaneous pen TIDAC levothyroxine 25 mcg tablet 25 mcg PO DAILY@0600 05/28/24 06/13/24 05/28/24 06:00 History lidocaine 5 % topical patch 1 patch topical BID PRN pain 05/28/24 06/13/24 Unknown History cyclobenzaprine 10 mg tablet 10 mg PO BEDTIME PRN muscle spasm 06/13/24 06/13/24 Unknown History epinephrine 0.3 mg/0.3 mL 0.3 mg IM DIRECTED anaphylaxis 06/13/24 06/13/24 Unknown History injection, auto-injector famotidine 10 mg tablet 10 mg PO BID 06/13/24 06/13/24 Unknown History pregabalin 25 mg capsule 25 mg PO BEDTIME 06/13/24 06/13/24 Unknown History Physical Exam 2 Vital Signs and Narrative: Vital Signs: Last Vital Signs Temp 98.4 F 06/13/24 18:11 Pulse 64 06/13/24 18:11 Resp 12 06/13/24 18:11 BP 175/85 H 06/13/24 18:11 Pulse Ox 97 06/13/24 18:11 O2 Del Method Room Air 06/13/24 18:11 BMI result Body Mass Index 30.7 Const: Other: General awake alert x3, resting comfortably in no acute distress. Anicteric sclera Neck supple no JVD. CVS regular rate rhythm, Respiratory lungs clear to auscultation, no respiratory distress, no wheeze, no rhonchi. Gastrointestinal abdomen soft, mild diffuse tenderness to palpation,bowel sounds audible, no guarding , no rigidity. Extremities no edema. Neuro moving all 4 extremity, speech clear. Skin multiple macular hyperpigmented spots both upper extremities Psych appropriate affect Results Labs 06/13/24 10:40 06/14/24 05:47 Labs: Laboratory Results - last 24 hr 06/13/24 06/13/24 06/13/24 10:22 10:40 13:48 MCV 84.7 MCH 29.6 MCHC 35.0 RDW 12.3 Plt Count 231 MPV 10.0 Immature Gran % (Auto) 0.2 Neut % (Auto) 68.6 Lymph % (Auto) 23.1 [place] % (Auto) 5.5 Eos % (Auto) 2.0 Baso % (Auto) 0.6 Lymph # (Auto) 2.0 [place] # (Auto) 0.5 Eos # (Auto) 0.2 Baso # (Auto) 0.1 Abs Immat Gran (auto) 0.02 Absolute Neuts (auto) 5.9 Absolute Nucleated RBC 0.000 Nucleated RBC % (auto) 0.0 Anion Gap 12 Estim Creat Clear Calc 74.0 Estimated GFR > 60 POC Glucose 282 H Random Glucose 453 H* Calcium 9.2 Total Bilirubin 0.4 Direct Bilirubin 0.1 AST 12 ALT 17 Alkaline Phosphatase 94 Total Protein 6.7 Albumin 3.8 Lipase 166 H Beta-Hydroxybutyrate 0.08 Urine Color Straw Urine Appearance Clear Urine pH 6.0 Ur Specific [place] <= 1.005 Urine Protein Negative Urine Glucose (UA) >=1000 H Urine Ketones Negative Urine Blood Negative Urine Nitrite Negative Ur Leukocyte Esterase Negative Urine RBC 0-2 Urine WBC 0-5 Ur Squamous Epith Cells 0-2 Urine Bacteria None Seen Hyaline Casts 0-2 Urine Opiates Screen Not Detected Ur Buprenorphine Scrn Positive H Ur Oxycodone Screen Not Detected Urine Methadone Screen Not Detected Urine Fentanyl Screen Not Detected Ur Barbiturates Screen Not Detected Ur Phencyclidine Scrn Not Detected Ur Amphetamines Screen Not Detected U Benzodiazepines Scrn Not Detected Urine Cocaine Screen POSITIVE H U Marijuana (THC) Screen Not Detected Imaging Radiologist's Impressions: Impressions Chest X-Ray 06/13/24 10:11 IMPRESSION: No acute cardiopulmonary findings. Electronically signed by: Jalen Mays MD 06/13/2024 11:46 AM EDT Cervical Spine MRI 06/13/24 12:40 IMPRESSION: -Evaluation for abnormal cord signal is significantly limited by motion. -Multilevel degenerative changes of the cervical spine. Sequelae of C3-4 anterior spinal fusion as well as additional hardware at C4-C7. -Severe neural foraminal narrowing at C4-C5, C5-C6 and C6-C7. -Multilevel thoracic spondylosis without significant spinal canal or neural foraminal narrowing. Electronically signed by: Hailee Wallace MD 06/13/2024 02:14 PM EDT Thoracic Spine MRI 06/13/24 13:00 IMPRESSION: -Evaluation for abnormal cord signal is significantly limited by motion. -Multilevel degenerative changes of the cervical spine. Sequelae of C3-4 anterior spinal fusion as well as additional hardware at C4-C7. -Severe neural foraminal narrowing at C4-C5, C5-C6 and C6-C7. -Multilevel thoracic spondylosis without significant spinal canal or neural foraminal narrowing. Electronically signed by: Hailee Wallace MD 06/13/2024 02:14 PM EDT RP Abdomen/Pelvis CT 06/13/24 13:54 IMPRESSION: 1. There is marked motion artifact in the upper abdomen interfering with detail. There is likely some subtle streaky changes in the peripancreatic fat that could represent pancreatitis. A CT scan with adequate breath-holding and IV contrast administration would be helpful. 2. Incidental note made of mild hepatosplenomegaly, benign left renal angiomyolipoma, uterine fibroids and degenerative changes in the spine. Fleischner guidelines were followed. Electronically signed by: Sorin Lanier MD 06/13/2024 03:34 PM EDT RP Assessment and Plan (1) Elevated lipase: Status: Acute (2) Pancreatitis: Status: Acute (3) Acute hyperglycemia: Status: Acute (4) Weakness: Status: Acute Plan 53-year-old female presented with generalized body ache mostly lower back and bilateral lower extremity pain and frequent falls noted to have urine toxicology positive for cocaine, uncontrolled hyperglycemia possible pancreatitis. Back pain/leg pain recurrent fall/unsteady gait Seen by Neurology, no concern for MS flare, no focal leg or upper extremity weakness noted. Obtain PT eval/Tylenol for pain Cervical and thoracic spine MRI showed multilevel degenerative changes of cervical spine, sequelae of C3-C4 anterior spinal fusion as well as additional hardware at C4/C7, severe neural foraminal narrowing At C4/C5, C5/C6 and C6/C7. Multilevel thoracic spondylosis without significant spinal canal or neural foraminal narrowing. Acute on Chronic abdominal pain Nausea/acidity/ elevated lipase No history of alcohol abuse, normal LFTs,last triglyceride 227, no injury Question related to gastritis,? due to medications Abilify/less likely due to losartan Placed on full liquid diet, IV fluids Follow CBC/electrolytes/lipase GI consult if not better Substance use disorder U tox positive for cocaine and Suboxone Continue Suboxone Addiction consult Hx of PE Continue Eliquis Insulin-dependent diabetes type 2 with hyperglycemia Continue Lantus dose reduced from 25 to 15 units, since on full liquid diet add insulin sliding scale, diabetic diet Monitor POCs and hold metformin. Chronic neck and back pain Patient with multiple surgeries Treat conservatively with NSAIDs/acetaminophen Asthma Not in acute exacerbation Continue home inhalers HLD Continue statin HTN cont. amlodipine 2.5 mg daily, losartan 100 mg daily Mood disorder on pregabalin, Abilify Hypothyroidism continues levothyroxine , TSH 1.33 on 06/04 History of MS no acute flare noted by Neurology recommend outpatient follow-up with Dr. LO from [facility]. DVT prophylaxis with Eliquis Full code In my clinical judgment patient requires 2 night inpatient hospitalization for generalized body ache weakness acute pancreatitis requiring IV fluids analgesics and close clinical follow-up. Quality Stroke Does the patient have a stroke diagnosis?: No VTE Prior VTE?: No VTE Risk Level:: Medical - moderate - high VTE Device Contraindication: Treatment Not Indicated VTE Drug Contraindication: N/A - Med Ordered
[2024-06-13] MEDS: Lactated Ringers 1,000 ML 125 ML IVCONT (18:39)
[2024-06-13 21:00] LABS: Glucose, Whole Blood > 600 mg/dL (60-115)
[2024-06-13 21:00] LABS: Glucose, Whole Blood > 600 mg/dL (60-115)
--- NOTE | 2024-06-13 21:04 | PC.NURSE ---
poc blood glucose is reading as high unable to obtain a number read. made aware. labs ordered for lab glucose level.
[2024-06-13] MEDS: Insulin Regular, Human 100 UNIT/ML 10 ML VIAL 8 UNIT IVPUSH (21:30)
[2024-06-13] MEDS: metFORMIN HCl ER 500 MG TAB.ER.24H PO (21:33)
[2024-06-13] MEDS: Pregabalin 25 MG CAPSULE PO (21:34)
[2024-06-13] MEDS: Apixaban 5 MG TABLET PO (21:34)
[2024-06-13] MEDS: Famotidine 20 MG TABLET 10 MG PO (21:34)
--- NOTE | 2024-06-13 21:40 | MHC.EDTECH ---
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
--- NOTE | 2024-06-13 21:40 | PC.NURSE ---
2100 poc check >600. MD made aware. given ivp insulin per nov and 2099 meds. pt is axox4 speaking full clear sentences. reports 8 back pain md aware and states will order iv tylenol. per md to also give 25U Lantus however order is in for tomorrow in nov md aware. gave report to LUCIUS Wyatt on S3 and aware of plan. per MD to recheck poc in 2 hours and give lispro per sliding scale. pt to 373 at this time.
[2024-06-13] MEDS: Acetaminophen 1,000 MG/100 ML PIGGYBACK 400 MG IV (22:04)
[2024-06-13 22:07] LABS: Anion Gap 16 (12-20); Blood Urea Nitrogen 13 mg/dL (9-16); Calcium 8.3 mg/dL (8.4-10.2); Carbon Dioxide 17 mmol/L (22-29); Chloride 103 mmol/L (96-108); Creatinine Clr Calc Pharmacy 65.5; Estimated Glomerular Filt Rate > 60; Magnesium 1.6 mg/dL (1.6-2.6); Potassium 4.8 mmol/L (3.3-5.1); Sodium 131 mmol/L (135-145)
[2024-06-13] MEDS: Insulin Glargine,Hum.rec.anlog 100 UNIT/ML 10 ML VIAL 25 UNIT SUBCUT (22:07)
[2024-06-13 22:34] LABS: Glucose Random 786 mg/dL (60-115)
[2024-06-13 23:02] LABS: Glucose, Whole Blood 505 mg/dL (60-115)
[2024-06-13] MEDS: Melatonin 3 MG TABLET 6 MG PO (23:08)
[2024-06-13] MEDS: Cyclobenzaprine HCl 10 MG TABLET PO (23:08)
--- NOTE | 2024-06-13 23:13 | MHC.PIE ---
p; pt arrived from ed c/o pain 04/20 asking for toladol iv, pt reports toladol given in ed. i; iv tylenol one time dose given per orders, lantus 25u given per orders. i; dr guerra notified. new order BMP q4 p; blood sugar per lab 786 from 2129. poc 505 at 2258 i; admelog 12u given per s/s, melatonin and flexeril given for pt c/o insomnia and cramping pain. i; dr gurera notified - no extra insulin at this time e; will cont to monitor
[2024-06-14] MEDS: Lactated Ringers 1,000 ML 125 ML IVCONT (02:09)
[2024-06-14 02:46] LABS: Anion Gap 16 (12-20); Blood Urea Nitrogen 12 mg/dL (9-16); Calcium 8.8 mg/dL (8.4-10.2); Carbon Dioxide 17 mmol/L (22-29); Chloride 104 mmol/L (96-108); Creatinine Clr Calc Pharmacy 80.5; Estimated Glomerular Filt Rate > 60; Glucose Random 523 mg/dL (60-115); Sodium 133 mmol/L (135-145)
[2024-06-14] MEDS: HYDROmorphone HCl 0.5 MG/0.5 ML SYRINGE IVPUSH ×5 (03:09→20:59)
[2024-06-14] MEDS: Insulin Regular, Human 100 UNIT/ML 10 ML VIAL 10 UNIT IVPUSH (03:09)
[2024-06-14] MEDS: 0.9 % Sodium Chloride 500 ML IV (03:10)
[2024-06-14] MEDS: Levothyroxine Sodium 25 MCG TABLET PO (05:45)
[2024-06-14 07:15] LABS: Glucose, Whole Blood 297 mg/dL (60-115)
[2024-06-14 07:20] LABS: Anion Gap 14 (12-20); Blood Urea Nitrogen 13 mg/dL (9-16); Carbon Dioxide 21 mmol/L (22-29); Chloride 106 mmol/L (96-108); Creatinine Clr Calc Pharmacy 96.3; Estimated Glomerular Filt Rate > 60; Glucose Random 319 mg/dL (60-115); Potassium 3.2 mmol/L (3.3-5.1); Sodium 138 mmol/L (135-145)
[2024-06-14] MEDS: Insulin Lispro 100 UNIT/ML 3 ML VIAL SUBCUT ×4 (07:39→20:55)
[2024-06-14] MEDS: Insulin Lispro 100 UNIT/ML 3 ML VIAL 10 UNIT SUBCUT ×4 (07:39→20:54)
[2024-06-14] MEDS: Apixaban 5 MG TABLET PO ×2 (07:40→20:54)
[2024-06-14] MEDS: Insulin Glargine,Hum.rec.anlog 100 UNIT/ML 10 ML VIAL 25 UNIT SUBCUT ×2 (07:40→20:54)
[2024-06-14] MEDS: metFORMIN HCl ER 500 MG TAB.ER.24H PO ×2 (07:40→20:53)
[2024-06-14] MEDS: Cholecalciferol (Vitamin D3) 25 MCG TABLET PO (07:40)
[2024-06-14] MEDS: ARIPiprazole 5 MG TABLET PO (07:41)
[2024-06-14] MEDS: Atorvastatin Calcium 40 MG TABLET PO (07:41)
[2024-06-14] MEDS: Buprenorphine/Naloxone 8/2 mg FILM 1 FILM SUBLINGUAL (07:41)
[2024-06-14] MEDS: amLODIPine Besylate 2.5 MG TABLET PO (07:41)
[2024-06-14] MEDS: Famotidine 20 MG TABLET 10 MG PO ×2 (07:41→20:54)
[2024-06-14 07:49] VITALS: BP 200/93; PULSE 61; RESP 17; TEMP 36.2; O2SAT 99
[2024-06-14 09:04] LABS: Lipase 20 U/L (8-78)
[2024-06-14 09:06] VITALS: BP 144/70; PULSE 75
--- NOTE | 2024-06-14 09:25 | MHC.CM.PN ---
Addendum entered by Sabi Wood RN 06/14/24 14:25: No bed offers from acute rehabs. [facility] is following. Referrals to SNF's w/ bed offer from [facility]. PASRR completed. MDS submitted to [facility]. Will need less than 30 on dc summary. Addendum entered by Sabi Wood RN 06/14/24 11:16: PT rec acute rehab. Patient prefers [facility]. Referrals sent via [facility]. Original Note: From home alone. Functionally independent. Denies use of DME or services. Reports she has used a rollator in the past and might want one again. Will follow up with PCP. PCP Tyesha Rogers MD @ [facility] HCP on file and verified. HCA is her sister, Ayleen. DP: Goal is home self care. Shuttle transport. CM will continue to follow.
[2024-06-14] MEDS: Potassium Chloride ER 20 MEQ TAB.ER.PRT 40 MEQ PO (11:01)
[2024-06-14 11:02] VITALS: BP 144/70; PULSE 75
[2024-06-14 11:07] LABS: Glucose, Whole Blood 262 mg/dL (60-115)
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
[2024-06-14 11:33] LABS: Anion Gap 13 (12-20); Blood Urea Nitrogen 15 mg/dL (9-16); Calcium 8.8 mg/dL (8.4-10.2); Carbon Dioxide 19 mmol/L (22-29); Chloride 108 mmol/L (96-108); Creatinine Clr Calc Pharmacy 89.6; Estimated Glomerular Filt Rate > 60; Glucose Random 280 mg/dL (60-115); Potassium 3.3 mmol/L (3.3-5.1); Sodium 137 mmol/L (135-145)
--- NOTE | 2024-06-14 14:50 | P.PNIM_ITS ---
Subjective Subjective Date of Service: 06/14/24 Interval History: Complaining of persistent abdominal pain, back pain, bilateral lower leg pain and weakness. Tolerating diet no nausea no vomiting no worsening abdominal pain with food. No fevers, no chills. Events from last night noted patient had elevated blood sugars likely due to IV Solu Medrol, treated aggressively with insulin blood sugars now improved to 200 range Review of Systems All other system reviewed and are negative. Physical Exam 2 Vital Signs: Vital Signs: Last Vital Signs Temp 97.1 F 06/14/24 07:49 Pulse 75 06/14/24 11:02 Resp 17 06/14/24 07:49 BP 144/70 H 06/14/24 11:02 Pulse Ox 99 06/14/24 07:49 O2 Del Method Room Air 06/14/24 07:49 BMI result Body Mass Index 30.7 Const: Other: General awake alert x3, resting comfortably in no acute distress. Anicteric sclera Neck supple no JVD. CVS regular rate rhythm, Respiratory lungs clear to auscultation, no respiratory distress, no wheeze, no rhonchi. Gastrointestinal abdomen soft, mild tenderness and epigastrium,bowel sounds audible, no guarding , no rigidity. Extremities no edema. Neuro moving all 4 extremity, speech clear. Skin multiple macular hyperpigmented spots both upper extremities Psych appropriate affect Objective Data Active Medications Acetaminophen (Acetaminophen 325 Mg Tablet) 975 mg PO Q6H PRN PRN Reason: Pain, Mild (Pain Scale 1-3), fever or headache Albuterol Sulfate (Albuterol Sulfate 90 Mcg 8 Gm Inhaler) 2 puff INHALE RQ4H PRN PRN Reason: wheezing Amlodipine Besylate (Amlodipine Besylate 2.5 Mg Tablet) 2.5 mg PO DAILY COUNTS INCLUDE 234 BEDS AT THE [facility]; Protocol Last Admin: 06/14/24 07:41 Dose: 2.5 mg Documented By: ANITA Apixaban (Apixaban 5 Mg Tablet) 5 mg PO BID COUNTS INCLUDE 234 BEDS AT THE [facility] Last Admin: 06/14/24 07:40 Dose: 5 mg Documented By: ANITA Aripiprazole (Aripiprazole 5 Mg Tablet) 5 mg PO DAILY COUNTS INCLUDE 234 BEDS AT THE [facility] Last Admin: 06/14/24 07:41 Dose: 5 mg Documented By: ANITA Atorvastatin Calcium (Atorvastatin Calcium 40 Mg Tablet) 40 mg PO DAILY COUNTS INCLUDE 234 BEDS AT THE [facility] Last Admin: 06/14/24 07:41 Dose: 40 mg Documented By: ANITA Buprenorphine/Naloxone (Buprenorphine/Naloxone 8/2 Mg Film) 1 film SUBLINGUAL DAILY COUNTS INCLUDE 234 BEDS AT THE [facility] Last Admin: 06/14/24 07:41 Dose: 1 film Documented By: ANITA Calcium Carbonate (Calcium Carbonate 750 Mg Tab.Chew) 750 mg PO Q4H PRN PRN Reason: Heartburn Cyclobenzaprine HCl (Cyclobenzaprine Hcl 10 Mg Tablet) 10 mg PO BEDTIME PRN PRN Reason: muscle spasm Last Admin: 06/13/24 23:08 Dose: 10 mg Documented By: CASTRO Famotidine (Famotidine 20 Mg Tablet) 10 mg PO BID COUNTS INCLUDE 234 BEDS AT THE [facility] Last Admin: 06/14/24 07:41 Dose: 10 mg Documented By: ANITA Glucose (Glucose Gel 15 Gm Gel..Gram.) 15 gm PO Q15M PRN; Protocol PRN Reason: per Hypoglycemia Standing Ord. Hydromorphone HCl (Hydromorphone Hcl 0.5 Mg/0.5 Ml Syringe) 0.5 mg IVPUSH Q4H PRN; Protocol PRN Reason: back pain Last Admin: 06/14/24 12:06 Dose: 0.5 mg Documented By: ANITA Dextrose (D10) 250 mls @ 750 mls/hr IV Q15M PRN; Protocol PRN Reason: per Hypoglycemia Standing Ord. Insulin Glargine (Insulin Glargine,Hum.Rec.Anlog 100 Unit/Ml 10 Ml Vial) 25 unit SUBCUT BEDTIME COUNTS INCLUDE 234 BEDS AT THE [facility] Insulin Human Lispro (Insulin Lispro 100 Unit/Ml 3 Ml Vial) 0 unit SUBCUT QIDACHS COUNTS INCLUDE 234 BEDS AT THE [facility]; Protocol Last Admin: 06/14/24 11:56 Dose: 8 unit Documented By: ANITA Insulin Human Lispro (Insulin Lispro 100 Unit/Ml 3 Ml Vial) 10 unit SUBCUT QIDACHS COUNTS INCLUDE 234 BEDS AT THE [facility] Last Admin: 06/14/24 11:56 Dose: 10 unit Documented By: ANITA Levothyroxine Sodium (Levothyroxine Sodium 25 Mcg Tablet) 25 mcg PO DAILY@0600 COUNTS INCLUDE 234 BEDS AT THE [facility] Last Admin: 06/14/24 05:45 Dose: 25 mcg Documented By: CASTRO Losartan Potassium (Losartan Potassium 50 Mg Tablet) 100 mg PO DAILY COUNTS INCLUDE 234 BEDS AT THE [facility]; Protocol Magnesium Hydroxide (Milk Of Magnesia 30 Ml Oral.Susp) 30 ml PO DAILY PRN PRN Reason: Constipation Melatonin (Melatonin 3 Mg Tablet) 6 mg PO BEDTIME PRN PRN Reason: Insomnia Last Admin: 06/13/24 23:08 Dose: 6 mg Documented By: CASTRO Metformin HCl (Metformin Hcl Er 500 Mg Tab.Er.24h) 500 mg PO BID COUNTS INCLUDE 234 BEDS AT THE [facility] Last Admin: 06/14/24 07:40 Dose: 500 mg Documented By: ANITA Ondansetron HCl (Ondansetron Hcl 4 Mg/2 Ml Vial) 4 mg IVPUSH Q8H PRN PRN Reason: Nausea and Vomiting Pregabalin (Pregabalin 25 Mg Capsule) 25 mg PO BEDTIME COUNTS INCLUDE 234 BEDS AT THE [facility] Last Admin: 06/13/24 21:34 Dose: 25 mg Documented By: SABINE Sodium Chloride (0.9 % Sodium Chloride Flush 3 Ml Syringe) 3 ml IVFLUSH QSHIFT COUNTS INCLUDE 234 BEDS AT THE [facility] Last Admin: 06/14/24 07:42 Dose: Not Given Documented By: ANITA Non-Admin Reason: IV Running Vitamin D (Cholecalciferol (Vitamin D3) 25 Mcg Tablet) 25 mcg PO DAILY COUNTS INCLUDE 234 BEDS AT THE [facility] Last Admin: 06/14/24 07:40 Dose: 25 mcg Documented By: ANITA Labs 06/13/24 10:40 06/14/24 10:36 Labs: Laboratory Results - last 24 hr 06/13/24 06/13/24 06/13/24 20:54 20:57 21:32 Hold Purple Top Anion Gap 16 Estim Creat Clear Calc 65.5 Estimated GFR > 60 POC Glucose > 600 H* > 600 H* Random Glucose 786 H* Calcium 8.3 L D Magnesium 1.6 Lipase 06/13/24 06/14/24 06/14/24 22:57 02:21 05:47 Hold Purple Top SEE NOTE Anion Gap 16 14 Estim Creat Clear Calc 80.5 96.3 Estimated GFR > 60 > 60 POC Glucose 505 H* Random Glucose 523 H* 319 H Calcium 8.8 D 9.0 Magnesium Lipase 20 06/14/24 06/14/24 06/14/24 07:12 10:36 11:02 Hold Purple Top Anion Gap 13 Estim Creat Clear Calc 89.6 Estimated GFR > 60 POC Glucose 297 H 262 H Random Glucose 280 H Calcium 8.8 Magnesium Lipase Assessment and Plan (1) Pancreatitis: Status: Acute (2) Elevated lipase: Status: Acute (3) Acute hyperglycemia: Status: Acute (4) Back pain: Status: Acute (5) Weakness: Status: Acute Plan 53-year-old female presented with generalized body ache mostly lower back and bilateral lower extremity pain and frequent falls noted to have urine toxicology positive for cocaine, uncontrolled hyperglycemia possible pancreatitis. Back pain/leg pain recurrent fall/unsteady gait Seen by Neurology, no concern for MS flare. Tylenol for pain Cervical and thoracic spine MRI showed multilevel degenerative changes of cervical spine, sequelae of C3-C4 anterior spinal fusion as well as additional hardware at C4/C7, severe neural foraminal narrowing At C4/C5, C5/C6 and C6/C7. Multilevel thoracic spondylosis without significant spinal canal or neural foraminal narrowing. Recommend outpatient follow-up with primary Neurology and neurosurgery Seen by Physical therapy they recommend acute rehab Acute on Chronic abdominal pain Tolerating diet No history of alcohol abuse, normal LFTs,last triglyceride 227, no injury Question related to gastritis,? due to medications Abilify/less likely due to losartan Repeat lipase normalized, stable CBC, electrolytes Will advance to regular diet, continue Pepcid, DC IV fluids Substance use disorder U tox positive for cocaine and Suboxone Continue Suboxone Addiction consult Hx of PE Continue Eliquis Insulin-dependent diabetes type 2 with hyperglycemia Noted to have significantly elevated blood sugars greater than 600 last evening after receiving IV Solu-Medrol 1000 mg Will DC IV fluids continue Lantus home dose 25 units , insulin sliding scale, pre meal insulin, Glucophage, diabetic diet and check hemoglobin A1c Monitor POCs Chronic neck and back pain Patient with multiple surgeries Treat conservatively with NSAIDs/acetaminophen Mild intermittent Asthma Not in acute exacerbation Continue home inhalers HLD Continue statin, follow lipid profile HTN cont. amlodipine 2.5 mg daily, losartan 100 mg daily Mood disorder on pregabalin, Abilify Hypothyroidism continues levothyroxine , TSH 1.33 on 06/04 History of MS no acute flare , Neurology recommend outpatient follow-up with Dr. LO from [facility] [place]. DVT prophylaxis with Eliquis Full code In my clinical judgment patient requires continued inpatient hospitalization for generalized body ache weakness , hyperglycemia and safe disposition to acute rehab Quality Stroke Does the patient have a stroke diagnosis?: No VTE Prior VTE?: No VTE Risk Level:: Medical - moderate - high VTE Device Contraindication: Treatment Not Indicated VTE Drug Contraindication: N/A - Med Ordered
[2024-06-14 14:51] LABS: Anion Gap 11 (12-20); Blood Urea Nitrogen 17 mg/dL (9-16); Calcium 9.1 mg/dL (8.4-10.2); Carbon Dioxide 28 mmol/L (22-29); Chloride 106 mmol/L (96-108); Creatinine Clr Calc Pharmacy 80.5; Estimated Glomerular Filt Rate > 60; Glucose Random 219 mg/dL (60-115); Potassium 3.9 mmol/L (3.3-5.1); Sodium 141 mmol/L (135-145)
[2024-06-14 15:28] VITALS: BP 142/76; PULSE 80; RESP 18; TEMP 36.2; O2SAT 98
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
[2024-06-14 16:10] LABS: Glucose, Whole Blood 257 mg/dL (60-115)
[2024-06-14] MEDS: 0.9 % Sodium Chloride Flush 3 ML SYRINGE IVFLUSH ×2 (16:25→20:55)
--- NOTE | 2024-06-14 18:36 | PC.NURSE ---
Addendum entered by Randa Roche RN 06/14/24 19:12: 200cc clear yellow urine from straight cath. Original Note: Pt reports difficulty voiding. Voided 200cc from 3-6pm. Bladder scanned for 418cc. Order for straight cath now. Straight cath placed and draining.
[2024-06-14 19:26] LABS: Anion Gap 14 (12-20); Blood Urea Nitrogen 22 mg/dL (9-16); Calcium 8.6 mg/dL (8.4-10.2); Carbon Dioxide 22 mmol/L (22-29); Chloride 106 mmol/L (96-108); Creatinine Clr Calc Pharmacy 76.6; Estimated Glomerular Filt Rate > 60; Glucose Random 223 mg/dL (60-115); Potassium 3.7 mmol/L (3.3-5.1); Sodium 138 mmol/L (135-145)
[2024-06-14 19:40] VITALS: BP 155/69; PULSE 77; RESP 14; TEMP 36.2; O2SAT 99
[2024-06-14 20:07] LABS: Glucose, Whole Blood 209 mg/dL (60-115)
[2024-06-14] MEDS: Pregabalin 25 MG CAPSULE PO (20:54)
[2024-06-14 22:26] LABS: Anion Gap 12 (12-20); Blood Urea Nitrogen 26 mg/dL (9-16); Calcium 8.6 mg/dL (8.4-10.2); Carbon Dioxide 23 mmol/L (22-29); Chloride 106 mmol/L (96-108); Creatinine Clr Calc Pharmacy 79.5; Estimated Glomerular Filt Rate > 60; Glucose Random 303 mg/dL (60-115); Potassium 3.5 mmol/L (3.3-5.1); Sodium 137 mmol/L (135-145)
[2024-06-15] MEDS: HYDROmorphone HCl 0.5 MG/0.5 ML SYRINGE IVPUSH ×2 (01:20→06:44)
[2024-06-15 03:03] VITALS: BP 162/78; PULSE 73; RESP 18; TEMP 36.6; O2SAT 99
[2024-06-15] MEDS: Levothyroxine Sodium 25 MCG TABLET PO (06:37)
[2024-06-15 07:02] LABS: Cholesterol 200 mg/dL (<200); HDL Cholesterol 67 mg/dL (>40); LDL Cholesterol Calculated 95 mg/dL (<100); Triglycerides 192 mg/dL (<150)
[2024-06-15 07:21] VITALS: BP 139/84; PULSE 70; RESP 18; TEMP 36.2; O2SAT 98
[2024-06-15 07:36] LABS: Glucose, Whole Blood 170 mg/dL (60-115)
--- NOTE | 2024-06-15 08:03 | HO.PM.IMPN ---
Subjective Subjective Date of Service: 06/15/24 Interval History: f/u on generalez pain and achess Physical Exam Vital Signs: Vital Signs: Last Vital Signs Temp 97.1 F 06/15/24 07:21 Pulse 70 06/15/24 07:21 Resp 18 06/15/24 07:21 BP 139/84 06/15/24 07:21 Pulse Ox 98 06/15/24 07:21 O2 Del Method Room Air 06/15/24 07:21 BMI result Body Mass Index 30.7 Const: Other: General awake alert x3, resting comfortably in no acute distress. Anicteric sclera Neck supple no JVD. CVS regular rate rhythm, Respiratory lungs clear to auscultation, no respiratory distress, no wheeze, no rhonchi. Gastrointestinal abdomen soft, mild tenderness and epigastrium,bowel sounds audible, no guarding , no rigidity. Extremities no edema. Neuro moving all 4 extremity, speech clear. Skin multiple macular hyperpigmented spots both upper extremities Psych appropriate affect Objective Data Active Medications Acetaminophen (Acetaminophen 325 Mg Tablet) 975 mg PO Q6H PRN PRN Reason: Pain, Mild (Pain Scale 1-3), fever or headache Albuterol Sulfate (Albuterol Sulfate 90 Mcg 8 Gm Inhaler) 2 puff INHALE RQ4H PRN PRN Reason: wheezing Amlodipine Besylate (Amlodipine Besylate 2.5 Mg Tablet) 2.5 mg PO DAILY [facility]; Protocol Last Admin: 06/14/24 07:41 Dose: 2.5 mg Documented By: ANITA Apixaban (Apixaban 5 Mg Tablet) 5 mg PO BID [facility] Last Admin: 06/14/24 20:54 Dose: 5 mg Documented By: CASTRO Aripiprazole (Aripiprazole 5 Mg Tablet) 5 mg PO DAILY [facility] [place] Last Admin: 06/14/24 07:41 Dose: 5 mg Documented By: ANITA Atorvastatin Calcium (Atorvastatin Calcium 40 Mg Tablet) 40 mg PO DAILY [facility] [place] Last Admin: 06/14/24 07:41 Dose: 40 mg Documented By: ANITA Buprenorphine/Naloxone (Buprenorphine/Naloxone 8/2 Mg Film) 1 film SUBLINGUAL DAILY [facility] [place] Last Admin: 06/14/24 07:41 Dose: 1 film Documented By: ANITA Calcium Carbonate (Calcium Carbonate 750 Mg Tab.Chew) 750 mg PO Q4H PRN PRN Reason: Heartburn Cyclobenzaprine HCl (Cyclobenzaprine Hcl 10 Mg Tablet) 10 mg PO BEDTIME PRN PRN Reason: muscle spasm Last Admin: 06/13/24 23:08 Dose: 10 mg Documented By: CASTRO Famotidine (Famotidine 20 Mg Tablet) 10 mg PO BID [facility] [place] Last Admin: 06/14/24 20:54 Dose: 10 mg Documented By: CASTRO Glucose (Glucose Gel 15 Gm Gel..Gram.) 15 gm PO Q15M PRN; Protocol PRN Reason: per Hypoglycemia Standing Ord. Hydromorphone HCl (Hydromorphone Hcl 0.5 Mg/0.5 Ml Syringe) 0.5 mg IVPUSH Q4H PRN; Protocol PRN Reason: back pain Last Admin: 06/15/24 06:44 Dose: 0.5 mg Documented By: URSZULA Dextrose (D10) 250 mls @ 750 mls/hr IV Q15M PRN; Protocol PRN Reason: per Hypoglycemia Standing Ord. Insulin Glargine (Insulin Glargine,Hum.Rec.Anlog 100 Unit/Ml 10 Ml Vial) 25 unit SUBCUT BEDTIME [facility] Last Admin: 06/14/24 20:54 Dose: 25 unit Documented By: CASTRO Insulin Human Lispro (Insulin Lispro 100 Unit/Ml 3 Ml Vial) 0 unit SUBCUT QIDAS [facility]; Protocol Last Admin: 06/14/24 20:55 Dose: 6 unit Documented By: CASTRO Insulin Human Lispro (Insulin Lispro 100 Unit/Ml 3 Ml Vial) 10 unit SUBCUT QIDAS [facility] [place] Last Admin: 06/14/24 20:54 Dose: 10 unit Documented By: CASTRO Levothyroxine Sodium (Levothyroxine Sodium 25 Mcg Tablet) 25 mcg PO DAILY@0600 [facility] [place] Last Admin: 06/15/24 06:37 Dose: 25 mcg Documented By: URSZULA Losartan Potassium (Losartan Potassium 50 Mg Tablet) 100 mg PO DAILY [facility]; Protocol Magnesium Hydroxide (Milk Of Magnesia 30 Ml Oral.Susp) 30 ml PO DAILY PRN PRN Reason: Constipation Melatonin (Melatonin 3 Mg Tablet) 6 mg PO BEDTIME PRN PRN Reason: Insomnia Last Admin: 06/13/24 23:08 Dose: 6 mg Documented By: CASTRO Metformin HCl (Metformin Hcl Er 500 Mg Tab.Er.24h) 500 mg PO BID [facility] [place] Last Admin: 06/14/24 20:53 Dose: 500 mg Documented By: CASTRO Ondansetron HCl (Ondansetron Hcl 4 Mg/2 Ml Vial) 4 mg IVPUSH Q8H PRN PRN Reason: Nausea and Vomiting Pregabalin (Pregabalin 25 Mg Capsule) 25 mg PO BEDTIME [facility] Last Admin: 06/14/24 20:54 Dose: 25 mg Documented By: CASTRO Sodium Chloride (0.9 % Sodium Chloride Flush 3 Ml Syringe) 3 ml IVFLUSH QSHIFT [facility] [place] Last Admin: 06/14/24 20:55 Dose: 3 ml Documented By: CASTRO Vitamin D (Cholecalciferol (Vitamin D3) 25 Mcg Tablet) 25 mcg PO DAILY [facility] Last Admin: 06/14/24 07:40 Dose: 25 mcg Documented By: RAEShira Labs 06/13/24 10:40 06/14/24 22:01 Labs: Laboratory Results - last 24 hr 06/14/24 06/14/24 06/14/24 05:47 10:36 11:02 Anion Gap 13 Estim Creat Clear Calc 89.6 Estimated GFR > 60 POC Glucose 262 H Random Glucose 280 H Calcium 8.8 Triglycerides Cholesterol LDL Cholesterol, Calc HDL Cholesterol Lipase 20 06/14/24 06/14/24 06/14/24 14:13 15:57 18:30 Anion Gap 11 L 14 Estim Creat Clear Calc 80.5 76.6 Estimated GFR > 60 > 60 POC Glucose 257 H Random Glucose 219 H 223 H Calcium 9.1 8.6 Triglycerides Cholesterol LDL Cholesterol, Calc HDL Cholesterol Lipase 06/14/24 06/14/24 06/15/24 19:42 22:01 06:26 Anion Gap 12 Estim Creat Clear Calc 79.5 Estimated GFR > 60 POC Glucose 209 H Random Glucose 303 H Calcium 8.6 Triglycerides 192 H Cholesterol 200 H LDL Cholesterol, Calc 95 HDL Cholesterol 67 Lipase 06/15/24 07:15 Anion Gap Estim Creat Clear Calc Estimated GFR POC Glucose 170 H Random Glucose Calcium Triglycerides Cholesterol LDL Cholesterol, Calc HDL Cholesterol Lipase Assessment and Plan (1) Pancreatitis: Status: Acute (2) Elevated lipase: Status: Acute (3) Acute hyperglycemia: Status: Acute (4) Back pain: Status: Acute (5) Weakness: Status: Acute Plan 53/F with MS here with generalized body ache mostly lower back and bilateral lower extremity pain and frequent falls, urine toxicology + cocaine, uncontrolled hyperglycemia possible pancreatitis. Back pain/leg pain recurrent fall/unsteady gait Seen by Neurology, no concern for MS flare. Tylenol for pain Cervical and thoracic spine MRI showed multilevel degenerative changes of cervical spine, sequelae of C3-C4 anterior spinal fusion as well as additional hardware at C4/C7, severe neural foraminal narrowing At C4/C5, C5/C6 and C6/C7. Multilevel thoracic spondylosis without significant spinal canal or neural foraminal narrowing. Recommend outpatient follow-up with primary Neurology and neurosurgery Seen by Physical therapy they recommend acute rehab Acute on Chronic abdominal pain Tolerating diet No history of alcohol abuse, normal LFTs,last triglyceride 227, no injury Question related to gastritis,? due to medications Abilify/less likely due to losartan Repeat lipase normalized, stable CBC, electrolytes Will advance to regular diet, continue Pepcid, DC IV fluids Substance use disorder U tox positive for cocaine and Suboxone Continue Suboxone Addiction consult Hx of PE Continue Eliquis Insulin-dependent diabetes type 2 with hyperglycemia Noted to have significantly elevated blood sugars greater than 600 last evening after receiving IV Solu-Medrol 1000 mg Will DC IV fluids continue Lantus home dose 25 units , insulin sliding scale, pre meal insulin, Glucophage, diabetic diet and check hemoglobin A1c Monitor POCs Chronic neck and back pain Patient with multiple surgeries Treat conservatively with NSAIDs/acetaminophen Mild intermittent Asthma Not in acute exacerbation Continue home inhalers HLD Continue statin, follow lipid profile HTN cont. amlodipine 2.5 mg daily, losartan 100 mg daily Mood disorder on pregabalin, Abilify Hypothyroidism continues levothyroxine , TSH 1.33 on 06/04 History of MS no acute flare , Neurology recommend outpatient follow-up with Dr. LO from [facility]. DVT prophylaxis with Eliquis Full code In my clinical judgment patient requires continued inpatient hospitalization for generalized body ache weakness , hyperglycemia and safe disposition to acute rehab Quality Stroke Does the patient have a stroke diagnosis?: No VTE Prior VTE?: No VTE Risk Level:: Medical - moderate - high VTE Device Contraindication: Treatment Not Indicated VTE Drug Contraindication: N/A - Med Ordered
[2024-06-15 08:05] LABS: Estimated Average Glucose 301 mg/dL; Hemoglobin A1C 396.5298 umol/L; Hemoglobin A1c % 12.1 % (<6.0); Total Hemoglobin (HGBA1C) 3653.4917 umol/L
[2024-06-15] MEDS: ARIPiprazole 5 MG TABLET PO (08:12)
[2024-06-15] MEDS: Losartan Potassium 50 MG TABLET 100 MG PO (08:12)
[2024-06-15] MEDS: Atorvastatin Calcium 40 MG TABLET PO (08:12)
[2024-06-15] MEDS: amLODIPine Besylate 2.5 MG TABLET PO (08:13)
[2024-06-15] MEDS: metFORMIN HCl ER 500 MG TAB.ER.24H PO (08:13)
[2024-06-15] MEDS: Cholecalciferol (Vitamin D3) 25 MCG TABLET PO (08:13)
[2024-06-15] MEDS: Apixaban 5 MG TABLET PO (08:13)
[2024-06-15] MEDS: Insulin Lispro 100 UNIT/ML 3 ML VIAL SUBCUT (08:13)
[2024-06-15] MEDS: Famotidine 20 MG TABLET 10 MG PO (08:13)
[2024-06-15] MEDS: 0.9 % Sodium Chloride Flush 3 ML SYRINGE IVFLUSH (08:14)
[2024-06-15] MEDS: Insulin Lispro 100 UNIT/ML 3 ML VIAL 10 UNIT SUBCUT (08:14)
--- NOTE | 2024-06-15 09:19 | P.DS_ITS ---
DS: Providers Provider Date of Service: 06/15/24 Date of admission: 06/13/24 18:28 Primary care physician: Tyesha Rogers MD Consults: 06/13/24 22:21 Consult to Wound Care Routine Reason for consultation: skin picking disorder, scratches all body. 06/14/24 14:56 Addiction Medicine Routine Consulting Provider: Addiction Covering Reason for consultation: cocaine use Has provider been notified: No DS: Diagnosis Discharge Diagnosis (1) Pancreatitis: Status: Acute (2) Elevated lipase: Status: Acute (3) Acute hyperglycemia: Status: Acute (4) Back pain: Status: Acute (5) Weakness: Status: Acute DS: Summary Hospital Course Hospital Course: admission hpi Chief Complaint: Generalized pain/unsteady gait 53-year-old female patient with past medical history significant for PE on Eliquis, hyperlipidemia, hypertension, MS, insulin-dependent diabetes mellitus type 2, asthma, cocaine and opiate use disorder, PTSD and recurrent MDD with suicidal ideation, being followed at [facility] for MS, patient moved to [place] but after staying there for 9 months returned back to [place] on May 10 therefore not seen by her primary neurologist in last 1 year, patient presented to [place] ED today due to lower back and bilateral lower leg pain, able to ambulate without assistive device but feels unsteady and has been falling at home, denies associated fever chills, complaints of chronic headaches and dizziness, also complain of chronic abdominal pain, mostly cramping, acidity heartburn and nausea, complain of urinary frequency but no burning or dysuria, denies chest pain no shortness a breath no palpitations no hematemesis, no melena, no diarrhea , occasionally drinks alcohol smokes 5 cigarettes a day, recently relapsed on cocaine , on Suboxone denies opiate use denies IV drug use, workup in the ED showed urine toxicology positive for Suboxone and cocaine, lipase 166, normal LFTs, potassium 3.3, blood sugar 453 improved to 282 , chest x-ray unremarkable, cervical spine and thoracic spine MRI showed multilevel degenerative changes of cervical spine, severe neural foraminal narrowing at C4 C5, C5-C6 and C6-C7, multilevel thoracic spondylosis without significant spinal canal or neural foramina narrowing, CT abdomen and pelvis showed marked motion artifact, likely some subtle streaky changes in the peripancreatic fat that could represent pancreatitis, incidental note made of mild hepatosplenomegaly, benign left renal angiomyolipoma, uterine fibroids and degenerative changes in the spine. ED physician consulted patient is primary neurologist Dr. LO he recommend to treat patient with IV Solu-Medrol if noted to have cord lesions and to treat pain symptomatically, patient is now being admitted to [facility] for generalized pain difficulty in ambulation, abdominal pain and pancreatitis. Hospital course: The patient was admitted for generalized pain and an unsteady gait, initially suspected to be an MS flare. IV steroids were administered, but after evaluation by a neurologist, no exacerbation was confirmed. Physical therapy assessed the patient and recommended short-term rehab. However, the patient declined rehab, stating they felt better and expressed a desire to leave without waiting for a formal discharge or a discussion with me. By the time I arrived at the room, the patient had already left. The nurse advised the patient to follow up with their doctor and continue their medication. Time Attestation Discharge Coordination Time (in mins): 15 Quality: Safe Use of Opioids Does Pt have an Active Cancer Diagnosis on the Problem List?: No Quality: Stroke Does the patient have a stroke diagnosis?: No Physical Exam Vital Signs: Vital Signs: Last Vital Signs Temp 97.1 F 06/15/24 07:21 Pulse 70 06/15/24 07:21 Resp 18 06/15/24 07:21 BP 139/84 06/15/24 07:21 Pulse Ox 98 06/15/24 07:21 O2 Del Method Room Air 06/15/24 07:21 BMI result Body Mass Index 30.7 DS: Data Data Completed and Pending Labs on day of discharge: Laboratory Results - last 24 hr 06/14/24 06/14/24 06/14/24 10:36 11:02 14:13 Sodium 137 141 Potassium 3.3 3.9 Chloride 108 106 Carbon Dioxide 19 L 28 Anion Gap 13 11 L BUN 15 17 H Creatinine 0.71 0.79 Estim Creat Clear Calc 89.6 80.5 Estimated GFR > 60 > 60 POC Glucose 262 H Random Glucose 280 H 219 H Estimat Average Glucose Hemoglobin A1c % Calcium 8.8 9.1 Triglycerides Cholesterol LDL Cholesterol, Calc HDL Cholesterol 06/14/24 06/14/24 06/14/24 15:57 18:30 19:42 Sodium 138 Potassium 3.7 Chloride 106 Carbon Dioxide 22 Anion Gap 14 BUN 22 H Creatinine 0.83 Estim Creat Clear Calc 76.6 Estimated GFR > 60 POC Glucose 257 H 209 H Random Glucose 223 H Estimat Average Glucose Hemoglobin A1c % Calcium 8.6 Triglycerides Cholesterol LDL Cholesterol, Calc HDL Cholesterol 06/14/24 06/15/24 06/15/24 22:01 06:26 07:15 Sodium 137 Potassium 3.5 Chloride 106 Carbon Dioxide 23 Anion Gap 12 BUN 26 H Creatinine 0.80 Estim Creat Clear Calc 79.5 Estimated GFR > 60 POC Glucose 170 H Random Glucose 303 H Estimat Average Glucose 301 Hemoglobin A1c % 12.1 H Calcium 8.6 Triglycerides 192 H Cholesterol 200 H LDL Cholesterol, Calc 95 HDL Cholesterol 67 Discharge Plan Discharge Anticipated Discharge Date/Time: 06/15/24 09:20 Patient Disposition: Left Against Medical Advice Discharge Diagnosis: Back pain, abdominal pain, Referrals: Tyesha Rogers MD [Primary Care Provider] - 1 Week Discharge Medications: Continued cyclobenzaprine 10 mg tablet 10 mg PO BEDTIME PRN (Reason: muscle spasm) famotidine 10 mg Tablet 10 mg PO BID buprenorphine-naloxone [Suboxone] 8-2 mg film 1 strip sublingual DAILY insulin glargine [Lantus Solostar U-100 Insulin] 100 unit/mL (3 mL) insulin pen 25 unit subcut BEDTIME atorvastatin 40 mg tablet 1 tab PO DAILY losartan 100 mg tablet 1 tab PO DAILY cholecalciferol (vitamin D3) [Vitamin D3] 25 mcg (1,000 unit) capsule 1 cap PO DAILY albuterol sulfate [Ventolin HFA] 90 mcg/actuation Hfa Aerosol Inhaler 2 puff inhalation RQ4H PRN (Reason: wheezing) Qty: 0 0RF metformin 500 mg tablet extended release 24 hr 500 mg PO BID aripiprazole [Abilify] 5 mg Tablet 5 mg PO DAILY Qty: 14 0RF acetaminophen 325 mg tablet 650 mg PO Q4H PRN (Reason: pain) amlodipine 2.5 mg tablet 2.5 mg PO DAILY levothyroxine 25 mcg tablet 25 mcg PO DAILY@0600 lidocaine 5 % adhesive patch,medicated 1 patch topical BID PRN (Reason: pain) insulin lispro 100 unit/mL insulin pen 8 - 16 sliding scale dose subcut TIDAC Protocol: Insulin Correction Scale Less than or equal to 110 ---- Give (units): 0 111 to 150 Give (units): 8 151 to 200 Give (units): 10 201 to 250 Give (units): 12 251 to 300 Give (units): 14 301 to 350 Give (units): 16 Greater than 350 Give (units): 0 Call MD if Blood Glucose > : 350 epinephrine 0.3 mg/0.3 mL auto-injector 0.3 mg IM DIRECTED pregabalin 25 mg capsule 25 mg PO BEDTIME (DME) AeroEclipse II Nebulizer Misc See Rx Instructions .ROUTE .MEDSUPPLY Qty: 1 Rx Instructions: As directed (DME) lancets [FreeStyle Lancets] 28 gauge misc See Rx Instructions .ROUTE .MEDSUPPLY Qty: 100 Rx Instructions: As directed (DME) FreeStyle Lite Strips Strip See Rx Instructions .ROUTE .MEDSUPPLY Qty: 10 Rx Instructions: As directed (DME) pen needle, diabetic [Comfort EZ Pen [place]] 32 gauge x 5/32 needle See Rx Instructions .ROUTE .MEDSUPPLY Qty: 50 Rx Instructions: As directed Eliquis 5 mg tablet 5 mg PO BID Discharge Orders: Discharge Order (Routine); Ordered 06/15/24 Ordered By: Callum Acosta Diet: Advance to usual diet Activity on Discharge: As tolerated Print Language: Romansh Care Plan Goals: Abdominal pain, back pain Health Concerns: MS generalized weakness back pain abdominal Plan of Treatment: resume all treatement and meds at home Assessment: see
== END 2024-06-15 09:25 | disposition left against medical advice (07) | DRG 282 ==
LOC: HO.ED 14:17 → HO.EDOVER 18:33 → HO.S3 20:33
PROVIDERS: Internal Medicine; Admitting Provider Hospitalist; Emergency Provider Student in an Organized Health Care Education/Training Program; PCP Family Medicine; Visit Provider Internal Medicine
DX: K85.90 Acute pancreatitis without necrosis or infection, unspecified (principal); E03.9 Hypothyroidism, unspecified; M54.50 Low back pain, unspecified; E11.65 Type 2 diabetes mellitus with hyperglycemia; M54.2 Cervicalgia; E78.5 Hyperlipidemia, unspecified; I10 Essential (primary) hypertension; J45.20 Mild intermittent asthma, uncomplicated; F17.210 Nicotine dependence, cigarettes, uncomplicated; F11.20 Opioid dependence, uncomplicated; F14.90 Cocaine use, unspecified, uncomplicated; G35 Multiple sclerosis; G89.29 Other chronic pain; Z71.6 Tobacco abuse counseling; Z86.711 Personal history of pulmonary embolism; Z98.1 Arthrodesis status; Z79.4 Long term (current) use of insulin; Z79.01 Long term (current) use of anticoagulants; Z79.84 Long term (current) use of oral hypoglycemic drugs; Z79.890 Hormone replacement therapy; Z79.899 Other long term (current) drug therapy
CPT/HCPCS: 36415; 71046; 72141; 72146; 74176; 80048; 80061; 80076; 80307; 81001; 82010; 82947; 83036; 83690; 83735; 85025; 97163; 99285; J0131; J1171; J1885; J2060; J2919; J3480; J7120

== ENCOUNTER → 2024-06-13 10:06 | Outpatient (BNV) | payer MEDICAID, SELFPAY | PROVIDERS: Emergency Provider Student in an Organized Health Care Education/Training Program; PCP Family Medicine; Visit Provider Psychiatry & Neurology Neurology | DX: M54.50 Low back pain, unspecified (principal); E11.65 Type 2 diabetes mellitus with hyperglycemia | CPT/HCPCS: 99222 ==

== ENCOUNTER → 2024-06-13 18:28 | Outpatient (BNV) | payer MEDICAID, SELFPAY | PROVIDERS: Admitting Provider Hospitalist; Emergency Provider Student in an Organized Health Care Education/Training Program; PCP Family Medicine; Visit Provider Hospitalist | DX: K85.90 Acute pancreatitis without necrosis or infection, unspecified (principal); R74.8 Abnormal levels of other serum enzymes; E11.65 Type 2 diabetes mellitus with hyperglycemia; R53.1 Weakness; M54.50 Low back pain, unspecified | CPT/HCPCS: 99223; 99232; 99238 ==

== ENCOUNTER 2024-06-19 01:24 | Emergency (ER) | payer MEDICAID, SELFPAY ==
--- NOTE | ~2024-06-19 | CT_ITS ---
EXAMINATION: CT ABDOMEN AND PELVIS WITHOUT CONTRAST CLINICAL INFORMATION: Diffuse abdominal pain. Pancreatitis 5 days ago. COMPARISON: CT abdomen and pelvis 06/13/2024. TECHNIQUE: Multidetector volumetric imaging was performed from the superior aspect of the liver through the pubic symphysis. Sagittal and coronal reformatted images were obtained on the technologist's workstation. This CT examination was performed using dose optimization techniques as appropriate, variously including the following: *Automated exposure control *Adjustment of mA and/or kV according to patient size (this includes techniques or standardized protocols for targeted exams where dose is matched to indication/reason for exam; i.e. extremities or head) *Use of iterative reconstruction technique DLP: 565 mGy-cm FINDINGS: LUNG BASES: The visualized lung bases are unremarkable. LIVER, GALLBLADDER, AND BILIARY TREE: The liver is normal in size, shape, and attenuation. No focal hepatic lesion or biliary ductal dilatation is present. Cholecystectomy clips PANCREAS: Normal appearance of the pancreas. No peripancreatic inflammatory changes identified. SPLEEN: Unremarkable. ADRENAL GLANDS: Unremarkable. KIDNEYS AND URETERS: The kidneys are normal in size, shape, and attenuation. No hydronephrosis, hydroureter, or calculi seen. No perinephric stranding. BLADDER: Unremarkable. GASTROINTESTINAL TRACT: The appendix is not visualized. No pericecal inflammatory changes noted. No free intraperitoneal fluid or gas collections identified. Normal appearance of the stomach and duodenum. ABDOMINAL WALL: A ventral midline incisional scar is noted. LYMPH NODES: Normal. VASCULAR: Mild scattered calcific atherosclerosis PELVIC VISCERA: Several dystrophic punctate calcifications within the uterine fundus which may represent degenerating uterine fibroids. No adnexal lesions. OSSEOUS STRUCTURES: Multilevel facet hypertrophic changes of the lower lumbar spine. No vertebral body compression deformities. CT/CT abdomen pelvis wo IV con IMPRESSION: 1. No acute abnormalities identified. 2. Normal appearance of the pancreas. No peripancreatic inflammatory changes. 3. Status post cholecystectomy. Electronically signed by: Pedro Pablo Gordon MD 06/19/2024 04:15 AM EDT
--- NOTE | 2024-06-19 01:39 | ECG_ITS ---
Test Reason : ABD PAIN Blood Pressure : / mmHG Vent. Rate : 077 BPM Atrial Rate : 077 BPM P-R Int : 132 ms QRS Dur : 098 ms QT Int : 416 ms P-R-T Axes : -01 010 028 degrees QTc Int : 470 ms Normal sinus rhythm Moderate voltage criteria for LVH, may be normal variant ( R in aVL , Conner product ) Septal infarct , age undetermined Abnormal ECG When compared with ECG of 19-JUL-2022 16:56, Nonspecific T wave abnormality has replaced inverted T waves in Inferior leads Nonspecific T wave abnormality no longer evident in Anterolateral leads Referred By: Generic ED Physician Electronically Signed By:LISA NELSON MD
[2024-06-19 01:41] LABS: Glucose, Whole Blood 592 mg/dL (60-115)
[2024-06-19 01:43] VITALS: BP 163/76; BP 200/102; PULSE 83; PULSE 84; RESP 22; TEMP 36.8; O2SAT 98; BMI 29.5
--- NOTE | 2024-06-19 01:52 | MHC.EDTECH ---
Patient BIBA,changed into hospital attire,placed pt on the vehicle monitor technician,vitals taken,EKG completed per order and signed by provider.call miranda in reach
[2024-06-19 02:02] LABS: Venous Blood Gas Refer to POC result
[2024-06-19 02:03] LABS: Basophils Percent Auto 0.4 % (0-2); Eosinophils Absolute Auto 0.2 X10*3/uL (0.0-0.4); Eosinophils Percent Auto 2.2 % (0-4); Hematocrit 39.1 % (37.0-47.0); Hemoglobin 13.7 g/dl (12.0-16.0); Imm Gran Abs Auto 0.01 X10*3/uL (0.00-0.03); Imm Gran Pct Auto 0.1 % (0.0-0.4); Lymphocytes Absolute Auto 1.9 X10*3/uL (1.2-4.9); Lymphocytes Percent Auto 25.6 % (20-40); Mean Corpuscular Hemoglobin 29.5 pg (27.0-33.0); Mean Corpuscular Volume 84.3 fL (80.0-98.0); Mean Platelet Volume 9.8 fL (9.4-12.3); Monocytes Absolute Auto 0.3 X10*3/uL (0.1-1.2); Monocytes Percent Auto 3.9 % (2-11); Neutrophils Percent Auto 67.8 % (45-73); Platelet Count 309 X10*3/uL (160-400); Red Blood Count 4.64 X10*6/uL (4.20-5.50); Red Cell Distribution Width 12.1 % (11.0-16.0); White Blood Count 7.4 X10*3/uL (4.8-10.8)
[2024-06-19 02:04] LABS: MANUAL DIFF FLAG NO
[2024-06-19 02:08] LABS: VBG Base Excess -1.5 mmol/L; VBG HCO3 20 mmol/L (22-26); VBG pCO2 28 mmHg; VBG pH 7.47 (7.32-7.43); VBG pO2 84 mmHg
[2024-06-19 02:08] LABS: INTERNATIONAL NORM RATIO 0.9 (0.9-1.1); Prothrombin Time 10.3 SEC (10.9-12.4)
[2024-06-19 02:11] LABS: Partial Thromboplastin Time 31.7 SEC (26.0-36.8)
[2024-06-19 02:16] LABS: Beta-Hydroxybutyrate 0.09 mmol/L (0.02-0.27)
[2024-06-19 02:24] LABS: Alanine Aminotransferase 18 U/L (0-31); Albumin Level 3.9 g/dL (3.5-5.0); Alkaline Phosphatase 134 U/L (39-117); Anion Gap 17 (12-20); Aspartate Amino Transferase 8 U/L (5-31); Bilirubin Direct 0.1 mg/dL (0.0-0.5); Bilirubin Total 0.3 mg/dL (0.0-1.0); Blood Urea Nitrogen 15 mg/dL (9-16); Calcium 9.4 mg/dL (8.4-10.2); Carbon Dioxide 22 mmol/L (22-29); Chloride 103 mmol/L (96-108); Creatinine Clr Calc Pharmacy 60.5; Estimated Glomerular Filt Rate 56; Glucose Random 632 mg/dL (60-115); Lipase 68 U/L (8-78); Potassium 3.5 mmol/L (3.3-5.1); Sodium 138 mmol/L (135-145); Total Protein 6.9 g/dL (6.5-8.0)
[2024-06-19] MEDS: 0.9 % Sodium Chloride 1,000 ML 999 ML IVCONT (02:44)
[2024-06-19] MEDS: ondansetron HCL 4 MG/2 ML VIAL IVPUSH (02:44)
[2024-06-19] MEDS: Morphine Sulfate 4 MG/ML CARTRIDGE IVPUSH (02:44)
[2024-06-19 03:24] LABS: Glucose, Whole Blood 530 mg/dL (60-115)
[2024-06-19 03:26] VITALS: BP 176/89; PULSE 86; RESP 18; TEMP 36.6; O2SAT 98
--- NOTE | 2024-06-19 03:36 | MHC.EDTECH ---
Patient ambulated with a steady gait to the bathroom,urine sample obtained and sent to lab,vitals taken,BP is elevated 176/89,POC taken and is 530 RN made aware
[2024-06-19 03:53] LABS: Appearance Urine Clear; Color Urine Yellow; Glucose Urine UA >=1000 mg/dL (Negative); Leukocyte Esterase Urine Negative (Negative); Nitrite Urine Positive (Negative); PH 7.5 (5.0-9.0); Specific Gravity - Urine >= 1.030 (1.005-1.025); UMIC TRIGGER UACC YES; Urine Blood Negative (Negative); Urine Ketones Negative (Negative); Urine Protein Negative (Neg-Trace)
--- NOTE | 2024-06-19 04:01 | ED.ABDPAIN ---
HPI - Abdominal Pain General Chief Complaint: Abdominal Pain Stated Complaint: ABDOMINAL PAIN/BLOOD IN VOMIT/DIARRHEA Time Seen by Provider: 06/19/24 02:18 Source: patient Mode of arrival: ambulatory Limitations: no limitations History of Present Illness ED Provider: Dr. Halima Fragoso HPI narrative: Patient comes to the emergency room complaining of abdominal pain. Patient states the pain started about 1 hour ago, started vomiting. Patient also complaining of diarrhea. Of note, patient was discharged from the hospital approximately 4 days ago, patient was here for pancreatitis. Patient denies chest pain or shortness of breath. Related Data Home Medications ?Medication ?Instructions ?Recorded ?Confirmed apixaban 5 mg tablet (Eliquis) 5 mg PO BID 08/25/20 06/13/24 blood sugar diagnostic (FreeStyle #10 ea 08/25/20 03/18/21 Lite Strips) lancets 28 gauge (FreeStyle #100 ea 08/25/20 03/18/21 Lancets) nebulizers (AeroEclipse II #1 ea 08/25/20 03/18/21 Nebulizer) pen needle, diabetic 32 gauge x #50 ea 08/25/20 03/18/21 5/32 (Comfort EZ Pen Gray) atorvastatin 40 mg tablet 1 tab PO DAILY 06/07/22 06/13/24 buprenorphine 8 mg-naloxone 2 mg 1 strip sublingual DAILY 06/07/22 06/13/24 sublingual film (Suboxone) cholecalciferol (vitamin D3) 25 1 cap PO DAILY 06/07/22 06/13/24 mcg (1,000 unit) capsule (Vitamin D3) insulin glargine 100 unit/mL (3 25 unit subcut BEDTIME 06/07/22 06/13/24 mL) subcutaneous pen (Lantus Solostar U-100 Insulin) losartan 100 mg tablet 1 tab PO DAILY 06/07/22 06/13/24 metformin 500 mg tablet,extended 500 mg PO BID 05/11/23 06/13/24 release 24 hr acetaminophen 325 mg tablet 650 mg PO Q4H PRN pain 05/28/24 06/13/24 amlodipine 2.5 mg tablet 2.5 mg PO DAILY 05/28/24 06/13/24 insulin lispro 100 unit/mL 8 - 16 sliding scale dose subcut 05/28/24 06/13/24 subcutaneous pen TIDAC levothyroxine 25 mcg tablet 25 mcg PO DAILY@0600 05/28/24 06/13/24 lidocaine 5 % topical patch 1 patch topical BID PRN pain 05/28/24 06/13/24 cyclobenzaprine 10 mg tablet 10 mg PO BEDTIME PRN muscle spasm 06/13/24 06/13/24 epinephrine 0.3 mg/0.3 mL 0.3 mg IM DIRECTED anaphylaxis 06/13/24 06/13/24 injection, auto-injector famotidine 10 mg tablet 10 mg PO BID 06/13/24 06/13/24 pregabalin 25 mg capsule 25 mg PO BEDTIME 06/13/24 06/13/24 Previous Rx's ?Medication ?Instructions ?Recorded albuterol sulfate 90 mcg/actuation 2 puff inhalation RQ4H PRN 07/25/22 aerosol inhaler (Ventolin HFA) wheezing #0 grams aripiprazole 5 mg tablet (Abilify) 5 mg PO DAILY #14 tabs 05/17/23 Allergies Allergy/AdvReac Type Severity Reaction Status Date / Time Iodinated Contrast Media Allergy Severe THROAT Verified 06/19/24 01:47 [IV CONTRAST] CLOSING lithium [LITHIUM] Allergy Intermediate AGGRESSION, Verified 06/19/24 01:47 stiffened up & throat closing (moderate to severe) fluoxetine [FLUOXETINE] Allergy Mild ITCHING, Verified 06/19/24 01:47 Suicidal risperidone [From RISPERDAL] Allergy Mild ITCHING Verified 06/19/24 01:47 asparagus [ASPARAGUS] Allergy Unknown unknown Verified 06/19/24 01:47 divalproex sodium Allergy Unknown UNKNOWN, Verified 06/19/24 01:47 [From DEPAKOTE] stiffened up, locked jaw lisinopril [LISINOPRIL] Allergy Unknown COUGH Verified 06/19/24 01:47 olanzapine Allergy Unknown can't Verified 06/19/24 01:47 recall if hives or increased pollen extracts [POLLEN] Allergy Unknown unknown Verified 06/19/24 01:47 tomato [TOMATO] Allergy Unknown UNKNOWN Verified 06/19/24 01:47 quetiapine [From SEROQUEL] AdvReac Intermediate OVERSEDATIO Verified 06/19/24 01:47 N BROCCOLI Allergy Unknown Unknown Uncoded 06/19/24 01:47 FUMARATE Allergy Unknown Unknown Uncoded 06/19/24 01:47 GREEN CHEUNG Allergy Unknown Unknown Uncoded 06/19/24 01:47 TOMATO Allergy Unknown Unknown Uncoded 06/19/24 01:47 Review of Systems Review of Systems Constitutional : No Weight loss, No Fever, No Chills, No Night Sweats, No Fatigue, No Malaise ENT/Mouth : No Hearing loss, No Ear Pain, No Nasal Congestion, No Sinus Pain, No Hoarseness, No sore throat, No Rhinorrhea, No Swallowing Difficulty Eyes: No Eye Pain, No Swelling, No Redness, No Foreign Body, No Discharge, No Vision Changes Cardiovascular : No Chest Pain, No SOB, No Dyspnea on Exertion, No Orthopnea, No Edema, No Palpitations Respiratory : No Cough, No Sputum, No Wheezing, No Smoke Exposure, No Dyspnea Gastrointestinal : Complaining of nausea, vomiting, diarrhea, diffuse abdominal pain Genitourinary : no irregular bleeding, No Dysuria, No Urinary Frequency, No Hematuria, No Urinary Incontinence, No Urgency, No Flank Pain, No Urinary Flow Changes, No Hesitancy Musculoskeletal : No joint pain, No Myalgias, No Joint Swelling Skin : No Skin Lesions, No rash Neuro : No Weakness, No Numbness, No Paresthesias, No Loss of Consciousness, No Dizziness, No Headache Psych : No Anxiety/Panic, No Depression, No SI/HI/AH/VH, No Social Issues, Heme/Lymph: No Bruising, No Bleeding,No Lymphadenopathy Endocrine : No Polyuria, No Polydipsia, No Temperature Intolerance PMFSH Past Medical History Medical History Excoriation (skin-picking) disorder Back pain GERD (gastroesophageal reflux disease) Peripheral neuropathy PTSD (post-traumatic stress disorder) Mood disorder Elevated cholesterol Fibromyalgia Chronic back pain DDD (degenerative disc disease) Ovarian cyst Kidney stone Normal colonoscopy Lesion of bladder Suicide attempt Depression IBS (irritable bowel syndrome) Obesity (BMI 30-39.9) Endometriosis History of pulmonary embolus (PE) History of DVT (deep vein thrombosis) Diabetes mellitus Asthma HTN (hypertension) Anxiety Multiple sclerosis Surgical History History of lithotripsy History of cystoscopy S/P endometrial ablation H/O neck surgery Hx of dilation and curettage Hx of tubal ligation Hx of appendectomy Hx of cholecystectomy Family History Family History Mother Rheumatoid arteritis COPD (chronic obstructive pulmonary disease) Father HTN (hypertension) Diabetes mellitus Social History Social History Household Members: None Housing: Apartment Do you presently have visiting nurse or other home services: No Alcohol intake: current Alcohol intake frequency: does not drink 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 TO BE EVALUATED BY RN Patient Tobacco Use Status: Current everyday Tobacco user Tobacco use type: Cigarette Cigarettes Per Day: 5 Years Smoked: 39 e-Cigarette/Vaping Use: Currently Using Second Hand Smoke Exposure: No Substance Use Type: Crack/Cocaine and Marijuana Advance Directives: Yes Advance Directives on File: Yes Advance Directives Date on File: 05/28/24 service: No Sexual orientation: Straight/Heterosexual Gender identity: Female Physical Exam ED Vital Signs: Vital Signs - 24 hr 06/19/24 01:43 06/19/24 03:26 Temperature 98.3 F 97.8 F Pulse Rate 84 86 Respiratory Rate 22 H 18 Blood Pressure 163/76 H 176/89 H Pulse Oximetry 98 98 Oxygen Delivery Method Room Air Room Air BMI result Body Mass Index 29.5 Const Other: Appearance: Alert. Oriented X3. Uncomfortable Eyes: Pupils equal, round and reactive to light. ENT: Pharynx normal. Neck: Normal inspection. Neck supple. No lymph nodes noted. No crepitus CVS: Normal heart rate and rhythm. Pulses normal. Normal S1 and S2 Respiratory: No respiratory distress. Breath sounds normal. No Wheezing. No rales Abdomen: Soft, nondistended. When patient is distracted, and I pressed on her abdomen, she does not have any pain on palpation. Skin: Skin warm and dry. Normal skin color. Normal skin turgor. Extremities: No lower extremity edema. No Lacerations. No Rash Neuro: Oriented X 3. No motor deficit. No sensory deficit. Moving all extremities. No slurred speech. CN 2 through 12 grossly intact Psych: calm, cooperative, normal affect Medical Decision Making Medical Decision Making MDM Narrative: My interpretation of labs: Patient's hematology within normal limits, glucose 635, other electrolytes within normal limits. Creatinine normal, normal lipase, normal hydroxybutyrate -my interpretation of CT scan: The stomach looks distended, possible gastroparesis. No other obvious abnormalities. Radiology report pending Patient's blood glucose 343 -patient has not vomited -549, I was informed by the patient's nurse that patient is requesting to be discharged. Differential Diagnosis Differential Diagnoses: The differential diagnosis associated with the presentation includes (Gastroparesis, pancreatitis, SBO) Admission/Observation Consideration of admission/observation: Escalation of care including admission/observation considered (Given patient's recent hospitalization and present symptoms, observation/admission has been considered) Lab Data MDM Lab Attestation statement: I reviewed the patient's lab results. 06/19/24 01:57 06/19/24 01:57 Labs: Lab Results 06/19/24 06/19/24 06/19/24 Range/Units 01:37 01:57 02:03 WBC 7.4 (4.8-10.8) X10*3/uL RBC 4.64 (4.20-5.50) X10*6/uL Hgb 13.7 (12.0-16.0) g/dl Hct 39.1 (37.0-47.0) % MCV 84.3 (80.0-98.0) fL MCH 29.5 (27.0-33.0) pg MCHC 35.0 (31.0-35.0) g/dl RDW 12.1 (11.0-16.0) % Plt Count 309 D (160-400) X10*3/uL MPV 9.8 (9.4-12.3) fL Immature Gran % (Auto) 0.1 (0.0-0.4) % Neut % (Auto) 67.8 (45-73) % Lymph % (Auto) 25.6 (20-40) % [place] % (Auto) 3.9 (2-11) % Eos % (Auto) 2.2 (0-4) % Baso % (Auto) 0.4 (0-2) % Lymph # (Auto) 1.9 (1.2-4.9) X10*3/uL [place] # (Auto) 0.3 (0.1-1.2) X10*3/uL Eos # (Auto) 0.2 (0.0-0.4) X10*3/uL Baso # (Auto) 0.0 (0.0-0.2) X10*3/uL Abs Immat Gran (auto) 0.01 (0.00-0.03) X10*3/uL Absolute Neuts (auto) 5.0 (2.0-8.3) x10*3/uL Absolute Nucleated RBC 0.000 (0.0-0.012) X10*3/uL Nucleated RBC % (auto) 0.0 (0.0-0.2) /100WBC PT 10.3 L (10.9-12.4) SEC INR 0.9 (0.9-1.1) APTT 31.7 (26.0-36.8) SEC VBG pH 7.47 H (7.32-7.43) VBG pCO2 28 mmHg VBG pO2 84 mmHg VBG HCO3 20 L (22-26) mmol/L VBG O2 Saturation 99.0 % VBG Base Excess -1.5 mmol/L Sodium 138 (135-145) mmol/L Potassium 3.5 (3.3-5.1) mmol/L Chloride 103 (96-108) mmol/L Carbon Dioxide 22 (22-29) mmol/L Anion Gap 17 (12-20) BUN 15 (9-16) mg/dL Creatinine 1.03 (0.5-1.4) mg/dL Estim Creat Clear Calc 60.5 Estimated GFR 56 POC Glucose 592 H* (60-115) mg/dL Random Glucose 632 H* (60-115) mg/dL Calcium 9.4 D (8.4-10.2) mg/dL Total Bilirubin 0.3 (0.0-1.0) mg/dL Direct Bilirubin 0.1 (0.0-0.5) mg/dL AST 8 (5-31) U/L ALT 18 (0-31) U/L Alkaline Phosphatase 134 H (39-117) U/L Total Protein 6.9 (6.5-8.0) g/dL Albumin 3.9 (3.5-5.0) g/dL Lipase 68 (8-78) U/L Beta-Hydroxybutyrate 0.09 (0.02-0.27) mmol/L Urine Color Urine Appearance Urine pH (5.0-9.0) Ur Specific [place] (1.005-1.025) Urine Protein (Neg-Trace) mg/dL Urine Glucose (UA) (Negative) mg/dL Urine Ketones (Negative) mg/dL Urine Blood (Negative) Urine Nitrite (Negative) Ur Leukocyte Esterase (Negative) Urine RBC (0-2) /HPF Urine WBC (0-5) /HPF Urine WBC Clumps Ur Squamous Epith Cells (0-2) /HPF Urine Bacteria (None Seen) Hyaline Casts (0-2) /LPF 06/19/24 06/19/24 06/19/24 Range/Units 03:19 03:46 05:23 WBC (4.8-10.8) X10*3/uL RBC (4.20-5.50) X10*6/uL Hgb (12.0-16.0) g/dl Hct (37.0-47.0) % MCV (80.0-98.0) fL MCH (27.0-33.0) pg MCHC (31.0-35.0) g/dl RDW (11.0-16.0) % Plt Count (160-400) X10*3/uL MPV (9.4-12.3) fL Immature Gran % (Auto) (0.0-0.4) % Neut % (Auto) (45-73) % Lymph % (Auto) (20-40) % [place] % (Auto) (2-11) % Eos % (Auto) (0-4) % Baso % (Auto) (0-2) % Lymph # (Auto) (1.2-4.9) X10*3/uL [place] # (Auto) (0.1-1.2) X10*3/uL Eos # (Auto) (0.0-0.4) X10*3/uL Baso # (Auto) (0.0-0.2) X10*3/uL Abs Immat Gran (auto) (0.00-0.03) X10*3/uL Absolute Neuts (auto) (2.0-8.3) x10*3/uL Absolute Nucleated RBC (0.0-0.012) X10*3/uL Nucleated RBC % (auto) (0.0-0.2) /100WBC PT (10.9-12.4) SEC INR (0.9-1.1) APTT (26.0-36.8) SEC VBG pH (7.32-7.43) VBG pCO2 mmHg VBG pO2 mmHg VBG HCO3 (22-26) mmol/L VBG O2 Saturation % VBG Base Excess mmol/L Sodium (135-145) mmol/L Potassium (3.3-5.1) mmol/L Chloride (96-108) mmol/L Carbon Dioxide (22-29) mmol/L Anion Gap (12-20) BUN (9-16) mg/dL Creatinine (0.5-1.4) mg/dL Estim Creat Clear Calc Estimated GFR POC Glucose 530 H* 343 H (60-115) mg/dL Random Glucose (60-115) mg/dL Calcium (8.4-10.2) mg/dL Total Bilirubin (0.0-1.0) mg/dL Direct Bilirubin (0.0-0.5) mg/dL AST (5-31) U/L ALT (0-31) U/L Alkaline Phosphatase (39-117) U/L Total Protein (6.5-8.0) g/dL Albumin (3.5-5.0) g/dL Lipase (8-78) U/L Beta-Hydroxybutyrate (0.02-0.27) mmol/L Urine Color Yellow Urine Appearance Clear Urine pH 7.5 (5.0-9.0) Ur Specific [place] >= 1.030 H (1.005-1.025) Urine Protein Negative (Neg-Trace) mg/dL Urine Glucose (UA) >=1000 H (Negative) mg/dL Urine Ketones Negative (Negative) mg/dL Urine Blood Negative (Negative) Urine Nitrite Positive H (Negative) Ur Leukocyte Esterase Negative (Negative) Urine RBC 0-2 (0-2) /HPF Urine WBC 21-50 H (0-5) /HPF Urine WBC Clumps Present Ur Squamous Epith Cells 0-2 (0-2) /HPF Urine Bacteria 4+ (None Seen) Hyaline Casts 0-2 (0-2) /LPF Medications Administered Discontinued Medications Generic Name Dose Route Start Last Admin Trade Name Freq PRN Reason Stop Dose Admin Sodium Chloride 1,000 mls @ 999 mls/hr 06/19/24 02:26 06/19/24 02:44 Ns IVCONT 06/19/24 03:26 999 mls/hr .Q1H1M ONE Administration Insulin Human Regular 10 unit 06/19/24 03:57 06/19/24 04:02 Insulin Regular, Human 100 Unit/Ml 10 Ml Vial IVPUSH 06/19/24 03:58 10 unit ONCE ONE Administration Morphine Sulfate 4 mg 06/19/24 02:26 06/19/24 02:44 Morphine Sulfate 4 Mg/Ml Cartridge IVPUSH 06/19/24 02:27 4 mg ONCE ONE Administration Protocol Ondansetron HCl 4 mg 06/19/24 02:26 06/19/24 02:44 Ondansetron Hcl 4 Mg/2 Ml Vial IVPUSH 06/19/24 02:27 4 mg ONCE ONE Administration Critical Care Time Critical Care Time Critical Care Time: Yes Total Critical Care Time: 60 Attestation: I have personally provided critical care time. Time includes review of lab data, radiology results, discussion with consultants, and monitoring for potential decompensation. Intervention performed as documented. Discharge Plan Discharge Clinical Impression: Abdominal pain, Acute hyperglycemia Patient Disposition: Home, Self-Care Instructions: Abdominal Pain (ED), Diabetic Hyperglycemia (ED) Additional Instructions: Please follow-up with your primary care physician tomorrow. If you have any worsening or new symptoms, please return to the emergency room or call 911 Prescriptions: No Action cyclobenzaprine 10 mg tablet 10 mg PO BEDTIME PRN (Reason: muscle spasm) famotidine 10 mg Tablet 10 mg PO BID buprenorphine-naloxone [Suboxone] 8-2 mg film 1 strip sublingual DAILY insulin glargine [Lantus Solostar U-100 Insulin] 100 unit/mL (3 mL) insulin pen 25 unit subcut BEDTIME atorvastatin 40 mg tablet 1 tab PO DAILY losartan 100 mg tablet 1 tab PO DAILY cholecalciferol (vitamin D3) [Vitamin D3] 25 mcg (1,000 unit) capsule 1 cap PO DAILY albuterol sulfate [Ventolin HFA] 90 mcg/actuation Hfa Aerosol Inhaler 2 puff inhalation RQ4H PRN (Reason: wheezing) Qty: 0 0RF metformin 500 mg tablet extended release 24 hr 500 mg PO BID aripiprazole [Abilify] 5 mg Tablet 5 mg PO DAILY Qty: 14 0RF acetaminophen 325 mg tablet 650 mg PO Q4H PRN (Reason: pain) amlodipine 2.5 mg tablet 2.5 mg PO DAILY levothyroxine 25 mcg tablet 25 mcg PO DAILY@0600 lidocaine 5 % adhesive patch,medicated 1 patch topical BID PRN (Reason: pain) insulin lispro 100 unit/mL insulin pen 8 - 16 sliding scale dose subcut TIDAC Protocol: Insulin Correction Scale Less than or equal to 110 ---- Give (units): 0 111 to 150 Give (units): 8 151 to 200 Give (units): 10 201 to 250 Give (units): 12 251 to 300 Give (units): 14 301 to 350 Give (units): 16 Greater than 350 Give (units): 0 Call MD if Blood Glucose > : 350 epinephrine 0.3 mg/0.3 mL auto-injector 0.3 mg IM DIRECTED pregabalin 25 mg capsule 25 mg PO BEDTIME (DME) AeroEclipse II Nebulizer Misc See Rx Instructions .ROUTE .MEDSUPPLY Qty: 1 Rx Instructions: As directed (DME) lancets [FreeStyle Lancets] 28 gauge misc See Rx Instructions .ROUTE .MEDSUPPLY Qty: 100 Rx Instructions: As directed (DME) FreeStyle Lite Strips Strip See Rx Instructions .ROUTE .MEDSUPPLY Qty: 10 Rx Instructions: As directed (DME) pen needle, diabetic [Comfort EZ Pen Gray] 32 gauge x 5/32 needle See Rx Instructions .ROUTE .MEDSUPPLY Qty: 50 Rx Instructions: As directed Eliquis 5 mg tablet 5 mg PO BID Print Language: Georgian
[2024-06-19] MEDS: Insulin Regular, Human 100 UNIT/ML 10 ML VIAL 10 UNIT IVPUSH (04:02)
[2024-06-19 04:06] LABS: Bacteria Urine 4+ (None Seen); Hyaline Casts Urine 0-2 /LPF (0-2); RBC Urine 0-2 /HPF (0-2); Squamous Epithelial Cell Urine 0-2 /HPF (0-2); UACC Culture Trigger YES; WBC Clumps Urine Present; WBC Urine 21-50 /HPF (0-5)
--- NOTE | 2024-06-19 04:08 | PC.NURSE ---
Notified provider of critical lab. new orders placed, medications administer as per mar
[2024-06-19 05:28] LABS: Glucose, Whole Blood 343 mg/dL (60-115)
--- NOTE | 2024-06-19 05:56 | PC.NURSE ---
delay in repeat glucose d/t caring for other patients.
[2024-06-19 06:04] LABS: Glucose, Whole Blood 382 mg/dL (60-115)
[2024-06-19 06:10] VITALS: BP 0/0; PULSE 0; RESP 0; TEMP -17.7; TEMP 0; O2SAT 0
== END 2024-06-19 06:11 | disposition home or self-care (01) ==
PROVIDERS: Emergency Provider Emergency Medicine
DX: R10.9 Unspecified abdominal pain (principal); R19.7 Diarrhea, unspecified; E11.9 Type 2 diabetes mellitus without complications; I10 Essential (primary) hypertension; E78.00 Pure hypercholesterolemia, unspecified; J45.909 Unspecified asthma, uncomplicated; G35 Multiple sclerosis; F11.20 Opioid dependence, uncomplicated; F14.10 Cocaine abuse, uncomplicated; Z86.718 Personal history of other venous thrombosis and embolism; Z79.01 Long term (current) use of anticoagulants; Z79.899 Other long term (current) drug therapy; Z79.02 Long term (current) use of antithrombotics/antiplatelets; Z79.4 Long term (current) use of insulin
CPT/HCPCS: 36415; 74176; 80053; 81001; 82010; 82248; 82803; 82947; 83690; 85025; 85610; 85730; 87086; 87088; 87186; 93005; 96374; 96375; 99284; J2270; J2405

== ENCOUNTER → 2024-06-19 01:39 | Outpatient (BNV) | payer MEDICAID, SELFPAY | PROVIDERS: Emergency Provider Emergency Medicine; Visit Provider Internal Medicine Cardiovascular Disease | DX: R94.31 Abnormal electrocardiogram [ECG] [EKG] (principal) | CPT/HCPCS: 93010 ==

== ENCOUNTER 2024-06-21 14:26 | Emergency (ER) | payer MEDICAID, SELFPAY ==
[2024-06-21 15:11] VITALS: BP 132/88; BP 134/86; PULSE 103; PULSE 86; RESP 18; TEMP 36.8; O2SAT 100; O2SAT 97; BMI 27.4
[2024-06-21] MEDS: 0.9 % Sodium Chloride 1,000 ML 999 ML IV ×2 (15:20→16:57)
[2024-06-21 15:23] LABS: MANUAL DIFF FLAG NO
[2024-06-21] MEDS: Insulin Lispro 100 UNIT/ML 3 ML VIAL 10 UNIT SUBCUT (15:23)
[2024-06-21 15:27] LABS: Basophils Percent Auto 0.4 % (0-2); Eosinophils Absolute Auto 0.1 X10*3/uL (0.0-0.4); Eosinophils Percent Auto 1.2 % (0-4); Hemoglobin 15.3 g/dl (12.0-16.0); Imm Gran Abs Auto 0.03 X10*3/uL (0.00-0.03); Imm Gran Pct Auto 0.3 % (0.0-0.4); Lymphocytes Absolute Auto 1.8 X10*3/uL (1.2-4.9); Lymphocytes Percent Auto 18.4 % (20-40); Mean Corpuscular HGB Conc 35.6 g/dl (31.0-35.0); Mean Corpuscular Hemoglobin 29.5 pg (27.0-33.0); Monocytes Absolute Auto 0.5 X10*3/uL (0.1-1.2); Monocytes Percent Auto 4.7 % (2-11); Neutrophils Absolute Auto 7.3 x10*3/uL (2.0-8.3); Platelet Count 353 X10*3/uL (160-400); Red Blood Count 5.18 X10*6/uL (4.20-5.50); Venous Blood Gas Refer to POC result; White Blood Count 9.7 X10*3/uL (4.8-10.8)
[2024-06-21 15:28] LABS: VBG Base Excess -2.6 mmol/L; VBG HCO3 19 mmol/L (22-26); VBG pCO2 27 mmHg; VBG pH 7.46 (7.32-7.43); VBG pO2 93 mmHg
[2024-06-21 15:33] LABS: Glucose, Whole Blood > 600 mg/dL (60-115)
[2024-06-21 15:46] LABS: Alanine Aminotransferase 15 U/L (0-31); Alkaline Phosphatase 125 U/L (39-117); Anion Gap 16 (12-20); Aspartate Amino Transferase 13 U/L (5-31); Bilirubin Total 0.3 mg/dL (0.0-1.0); Blood Urea Nitrogen 18 mg/dL (9-16); Calcium 9.5 mg/dL (8.4-10.2); Carbon Dioxide 20 mmol/L (22-29); Chloride 103 mmol/L (96-108); Creatinine Clr Calc Pharmacy 39.3; Estimated Glomerular Filt Rate 36; Lipase 52 U/L (8-78); Potassium 3.5 mmol/L (3.3-5.1); Sodium 135 mmol/L (135-145); Total Protein 7.4 g/dL (6.5-8.0)
--- NOTE | 2024-06-21 15:48 | PC.NURSE ---
Pt biba for nausea/vomiting along with abdominal pain and unable to void/urgency since yesterday. Pt states she was recently diagnosed with pancreatitis. Pt states she has been unable to void since yesterday morning. Bladder scan showed 212mL. Pt up to the bathroom with steady gait, able to void. Per EMS, pt POC reading >600mls, our POC machine reading >600, pt on q1hr POC checks. 20g IV placed in right forearm, IV fluids running per NOV, medicated with 10units subcut insulin. A/ox4, no increased wob/sob noted, lung sounds cta bilaterally, s1 and s2 heard, abdomen tender on palpation. Pt updated on plan of care, call miranda within reach, all needs met at this time.
--- NOTE | 2024-06-21 15:50 | ED_ITS ---
HPI - General Adult General Chief complaint: General Medical Stated complaint: DX pancreatitsis, ab pain, b/v, H BGL, IV Chucky Time Seen by Provider: 06/21/24 14:47 Source: patient and EMS Mode of arrival: EMS Limitations: no limitations History of Present Illness ED Provider: Dr. Jim HPI narrative: Patient is a 53 yo female with MS, past substance abuse, Diabetes, pancreatitis who presents with not eating Related Data Home Medications ?Medication ?Instructions ?Recorded ?Confirmed apixaban 5 mg tablet (Eliquis) 5 mg PO BID 08/25/20 06/13/24 blood sugar diagnostic (FreeStyle #10 ea 08/25/20 03/18/21 Lite Strips) lancets 28 gauge (FreeStyle #100 ea 08/25/20 03/18/21 Lancets) nebulizers (AeroEclipse II #1 ea 08/25/20 03/18/21 Nebulizer) pen needle, diabetic 32 gauge x #50 ea 08/25/20 03/18/21 5/32 (Comfort EZ Pen [place]) atorvastatin 40 mg tablet 1 tab PO DAILY 06/07/22 06/13/24 buprenorphine 8 mg-naloxone 2 mg 1 strip sublingual DAILY 06/07/22 06/13/24 sublingual film (Suboxone) cholecalciferol (vitamin D3) 25 1 cap PO DAILY 06/07/22 06/13/24 mcg (1,000 unit) capsule (Vitamin D3) insulin glargine 100 unit/mL (3 25 unit subcut BEDTIME 06/07/22 06/13/24 mL) subcutaneous pen (Lantus Solostar U-100 Insulin) losartan 100 mg tablet 1 tab PO DAILY 06/07/22 06/13/24 metformin 500 mg tablet,extended 500 mg PO BID 05/11/23 06/13/24 release 24 hr acetaminophen 325 mg tablet 650 mg PO Q4H PRN pain 05/28/24 06/13/24 amlodipine 2.5 mg tablet 2.5 mg PO DAILY 05/28/24 06/13/24 insulin lispro 100 unit/mL 8 - 16 sliding scale dose subcut 05/28/24 06/13/24 subcutaneous pen TIDAC levothyroxine 25 mcg tablet 25 mcg PO DAILY@0600 05/28/24 06/13/24 lidocaine 5 % topical patch 1 patch topical BID PRN pain 05/28/24 06/13/24 cyclobenzaprine 10 mg tablet 10 mg PO BEDTIME PRN muscle spasm 06/13/24 06/13/24 epinephrine 0.3 mg/0.3 mL 0.3 mg IM DIRECTED anaphylaxis 06/13/24 06/13/24 injection, auto-injector famotidine 10 mg tablet 10 mg PO BID 06/13/24 06/13/24 pregabalin 25 mg capsule 25 mg PO BEDTIME 06/13/24 06/13/24 Previous Rx's ?Medication ?Instructions ?Recorded albuterol sulfate 90 mcg/actuation 2 puff inhalation RQ4H PRN 07/25/22 aerosol inhaler (Ventolin HFA) wheezing #0 grams aripiprazole 5 mg tablet (Abilify) 5 mg PO DAILY #14 tabs 05/17/23 Allergies Allergy/AdvReac Type Severity Reaction Status Date / Time Iodinated Contrast Media Allergy Severe THROAT Verified 06/21/24 15:14 [IV CONTRAST] CLOSING lithium [LITHIUM] Allergy Intermediate AGGRESSION, Verified 06/21/24 15:14 stiffened up & throat closing (moderate to severe) fluoxetine [FLUOXETINE] Allergy Mild ITCHING, Verified 06/21/24 15:14 Suicidal risperidone [From RISPERDAL] Allergy Mild ITCHING Verified 06/21/24 15:14 asparagus [ASPARAGUS] Allergy Unknown unknown Verified 06/21/24 15:14 divalproex sodium Allergy Unknown UNKNOWN, Verified 06/21/24 15:14 [From DEPAKOTE] stiffened up, locked jaw lisinopril [LISINOPRIL] Allergy Unknown COUGH Verified 06/21/24 15:14 olanzapine Allergy Unknown can't Verified 06/21/24 15:14 recall if hives or increased pollen extracts [POLLEN] Allergy Unknown unknown Verified 06/21/24 15:14 tomato [TOMATO] Allergy Unknown UNKNOWN Verified 06/21/24 15:14 quetiapine [From SEROQUEL] AdvReac Intermediate OVERSEDATIO Verified 06/21/24 15:14 N BROCCOLI Allergy Unknown Unknown Uncoded 06/21/24 15:14 FUMARATE Allergy Unknown Unknown Uncoded 06/21/24 15:14 GREEN [place]G Allergy Unknown Unknown Uncoded 06/21/24 15:14 TOMATO Allergy Unknown Unknown Uncoded 06/21/24 15:14 Review of Systems 2 Neurologic: Denies Sensory deficit (Neuro) [facility] Past Medical History Medical History Excoriation (skin-picking) disorder Back pain GERD (gastroesophageal reflux disease) Peripheral neuropathy PTSD (post-traumatic stress disorder) Mood disorder Elevated cholesterol Fibromyalgia Chronic back pain DDD (degenerative disc disease) Ovarian cyst Kidney stone Normal colonoscopy Lesion of bladder Suicide attempt Depression IBS (irritable bowel syndrome) Obesity (BMI 30-39.9) Endometriosis History of pulmonary embolus (PE) History of DVT (deep vein thrombosis) Diabetes mellitus Asthma HTN (hypertension) Anxiety Multiple sclerosis Surgical History History of lithotripsy History of cystoscopy S/P endometrial ablation H/O neck surgery Hx of dilation and curettage Hx of tubal ligation Hx of appendectomy Hx of cholecystectomy Family History Family History Mother Rheumatoid arteritis COPD (chronic obstructive pulmonary disease) Father HTN (hypertension) Diabetes mellitus Social History Social History Household Members: None Housing: Apartment Do you presently have visiting nurse or other home services: No Alcohol intake: current Alcohol intake frequency: does not drink Comment: SEEKING RULES EXAMINER SERVICE TO BE EVALUATED BY RN Patient Tobacco Use Status: Current everyday Tobacco user Tobacco use type: Cigarette Cigarettes Per Day: 5 Years Smoked: 39 Smoked in Last 30 Days: No e-Cigarette/Vaping Use: Currently Using Second Hand Smoke Exposure: No Substance Use Type: Crack/Cocaine and Marijuana Advance Directives: Yes Advance Directives on File: Yes Advance Directives Date on File: 05/18/23 Do you have a plan to hurt others: No Plan service: No Sexual orientation: Straight/Heterosexual Gender identity: Female Physical Exam ED Vital Signs: Vital Signs - 24 hr 06/21/24 15:11 Temperature 98.3 F Pulse Rate 103 H Respiratory Rate 18 Blood Pressure 134/86 Pulse Oximetry 97 Oxygen Delivery Method Room Air BMI result Body Mass Index 27.4 Const Other: female looking older than stated age, unkept General: healthy appearing Nutritional Appearance: obese Orientation/consciousness: oriented to person and patient oriented x3 Limitations: no limitations HENMT Head: Yes normal to inspection Ears: external ears normal General nose exam: Normal external nose present Mouth: Normal oral and palatal mucosa present and oropharynx normal Throat: Yes posterior oropharynx normal Eyes General: appearance normal, both eyes and all related structures Neck Neck: Yes normal visual inspection Chest Chest palpation & inspection: normal inspection of the chest Resp Auscultation: clear to auscultation bilaterally Cardio Jugular venous distension: no JVD Rate: regular rate Rhythm: regular rhythm Heart sounds: S1 normal heart sound present and S2 normal heart sound present GI Inspection: Yes normal to inspection Palpation (GI): Soft to palpation, nontender and No hepatosplenomegaly present Auscultation: normal bowel sounds General: Yes no CVA tenderness Back/Spine/Pelvis Back: no CVA tenderness Skin General skin exam: no rashes or lesions noted Neuro General: oriented to person and patient oriented x3 Cranial nerves: Yes CN's II-XII intact bilaterally Motor exam (neuro): 5/5 motor strength present throughout Sensory Exam: No Sensory deficit (Neuro) Extrem General: Yes normal to inspection Psych Appearance: grossly normal Course Reevaluation(s) Reevaluation #1: Patient with hyperglyceamia and dehydration, no evidence of pancreatitis, will admit to hospitalist for IV hydration and glucose control. Time: 16:07 Reevaluation #2: I spent 40 minutes of critical care, with interventions, assessments, speaking to patient, consultants, and family. Time: 16:09 Medications Administered Discontinued Medications Generic Name Dose Route Start Last Admin Trade Name Freq PRN Reason Stop Dose Admin Sodium Chloride 1,000 mls @ 999 mls/hr 06/21/24 15:00 06/21/24 15:20 Ns IV 06/21/24 16:00 999 mls/hr .Q1H1M ISI Administration Insulin Human Lispro 10 unit 06/21/24 14:56 06/21/24 15:23 Insulin Lispro 100 Unit/Ml 3 Ml Vial SUBCUT 06/21/24 14:57 10 unit ONCE ONE Administration Medical Decision Making Differential Diagnosis Differential Diagnoses: The differential diagnosis associated with the presentation includes (Pancreatitis, DKA, dehydration, renal failure) Admission/Observation Consideration of admission/observation: Escalation of care including admission/observation considered (upon arrival admission was considered) Consult Healthcare Provider Management of the patient was discussed with: Hospitalist Lab Data 06/21/24 15:19 06/21/24 15:19 Labs: Lab Results 06/21/24 06/21/24 06/21/24 Range/Units 15:00 15:19 15:24 WBC 9.7 (4.8-10.8) X10*3/uL RBC 5.18 (4.20-5.50) X10*6/uL Hgb 15.3 (12.0-16.0) g/dl Hct 43.0 (37.0-47.0) % MCV 83.0 (80.0-98.0) fL MCH 29.5 (27.0-33.0) pg MCHC 35.6 H (31.0-35.0) g/dl RDW 12.0 (11.0-16.0) % Plt Count 353 (160-400) X10*3/uL MPV 10.0 (9.4-12.3) fL Immature Gran % (Auto) 0.3 (0.0-0.4) % Neut % (Auto) 75.0 H (45-73) % Lymph % (Auto) 18.4 L (20-40) % Lares % (Auto) 4.7 (2-11) % Eos % (Auto) 1.2 (0-4) % Baso % (Auto) 0.4 (0-2) % Lymph # (Auto) 1.8 (1.2-4.9) X10*3/uL Lares # (Auto) 0.5 (0.1-1.2) X10*3/uL Eos # (Auto) 0.1 (0.0-0.4) X10*3/uL Baso # (Auto) 0.0 (0.0-0.2) X10*3/uL Abs Immat Gran (auto) 0.03 (0.00-0.03) X10*3/uL Absolute Neuts (auto) 7.3 (2.0-8.3) x10*3/uL Absolute Nucleated RBC 0.000 (0.0-0.012) X10*3/uL Nucleated RBC % (auto) 0.0 (0.0-0.2) /100WBC VBG pH 7.46 H (7.32-7.43) VBG pCO2 27 mmHg VBG pO2 93 mmHg VBG HCO3 19 L (22-26) mmol/L VBG O2 Saturation 99.0 % VBG Base Excess -2.6 mmol/L Sodium 135 (135-145) mmol/L Potassium 3.5 (3.3-5.1) mmol/L Chloride 103 (96-108) mmol/L Carbon Dioxide 20 L (22-29) mmol/L Anion Gap 16 (12-20) BUN 18 H (9-16) mg/dL Creatinine 1.53 H (0.5-1.4) mg/dL Estim Creat Clear Calc 39.3 Estimated GFR 36 POC Glucose > 600 H* (60-115) mg/dL Random Glucose 704 H* (60-115) mg/dL Calcium 9.5 (8.4-10.2) mg/dL Total Bilirubin 0.3 (0.0-1.0) mg/dL AST 13 (5-31) U/L ALT 15 (0-31) U/L Alkaline Phosphatase 125 H (39-117) U/L Total Protein 7.4 (6.5-8.0) g/dL Albumin 4.0 (3.5-5.0) g/dL Lipase 52 (8-78) U/L ABG Data Attestation ABG: I personally reviewed and interpreted this ABG as follows: (respiratory alkolosis) Independent Historian Clinical information obtained from an independent historian. History obtained from or confirmed by: EMS External Record Review External record reviewed: Inpatient record Tests considered The following testing was considered but not selected: CT of abdomen was considered but patient with normal lipase and chronic abdominal pain Prescription Management I considered prescription management with: Antibiotic (no evidence of intrabdominal infection) Chronic Conditions Patient?s care impacted by: Diabetes and Other (psychiatric illness) Social Determinants Patient?s care significantly limited by Social Determinants of Health including: Low income and Alcoholism and drug addiction in family Discharge Plan Discharge Clinical Impression: Acute hyperglycemia, Acute dehydration Patient Disposition: Admitted As Inpatient Print Language: Indonesian
[2024-06-21 16:19] LABS: Glucose, Whole Blood 515 mg/dL (60-115)
[2024-06-21] MEDS: Pantoprazole Sodium 40 MG/10 ML VIAL IVPUSH (16:50)
[2024-06-21] MEDS: Insulin Regular, Human 100 UNIT/ML 10 ML VIAL 10 UNIT IVPUSH (16:51)
--- NOTE | 2024-06-21 17:12 | PHA.MEDREC ---
Addendum entered by Delfina Fink RPh 06/21/24 17:30: Reviewed by [facility] Original Note: Pharmacy Consult ? Medication Reconciliation Pharmacy has completed the medication reconciliation. Spoke to patient to confirm med list. Patient states she is no longer taking Suboxone 8/2mg , Cyclobenzaprine 10 mg, and Pregabalin 25 mg. Patent says she take Lantus Solostar 25 units at bedtime and Insulin Lispro 8-16 units per sliding scale tid, however last fill date was 01/27/24 for 30 days . Patient states she takes metformin 1,000 mg bid, however last fill date was 12/01/23 for 90 days. Also Abilify 5 mg bid was last filled 02/21/24 for 30 days supply. Patient states she is not compliant with her medications, she doesn't take them all the time like she should. .
--- NOTE | 2024-06-21 17:39 | PC.NURSE ---
Pt wants to leave AMA, IV's removed. aware, putting in d/c order.
[2024-06-21 18:09] VITALS: BP 0/0; PULSE 0; RESP 0; TEMP -17.7; TEMP 0; O2SAT 0
[2024-06-21 19:45] LABS: Glucose Random 704 mg/dL (60-115)
== END 2024-06-21 18:09 | disposition left against medical advice (07) ==
PROVIDERS: Emergency Provider Emergency Medicine; PCP Family Medicine
DX: R73.9 Hyperglycemia, unspecified (principal); E86.0 Dehydration; G35 Multiple sclerosis; E78.00 Pure hypercholesterolemia, unspecified; Z86.718 Personal history of other venous thrombosis and embolism
CPT/HCPCS: 36415; 80053; 82803; 82947; 83690; 85025; 96361; 96374; 96375; 99284; J2470

== ENCOUNTER 2024-06-26 11:50 | Emergency (ER) | payer MEDICAID, SELFPAY ==
--- NOTE | ~2024-06-26 | XR_ITS ---
EXAMINATION: XR CHEST CLINICAL INFORMATION: Chest pain COMPARISON: 06/13/2024 TECHNIQUE: Frontal view of the chest was obtained. FINDINGS: Lungs grossly clear given AP portable technique. Heart and pulmonary vessels are normal. Cardiac monitoring leads are present. XR/XR chest 1V IMPRESSION: No active disease. Electronically signed by: Luis Howard MD 06/26/2024 02:14 PM EDT
--- NOTE | 2024-06-26 12:04 | ED.CHESTPAIN ---
HPI - Chest Pain General Chief Complaint: General Medical Stated Complaint: CHEST PRESSURE DOWN L ARM FROM WALKIN PER EMS Time Seen by Provider: 06/26/24 12:03 Source: patient, RN notes reviewed and old records reviewed History of Present Illness ED Provider: Shadia Eddy PA-C HPI narrative: 53-year-old female patient with PMHx significant for PE on Eliquis, HLD, HTN, MS, insulin-dependent DMT2, asthma, cocaine and opiate use disorder, PTSD and recurrent MDD with suicidal ideation, MS, presenting to the ED via EMS from urgent care complaining of chest pressure and SOB x this morning. States she was going to urgent care due to continued abdominal pain, nausea, and dysuria believing she has UTI. Reports abdominal pain has been persistent since recent admission. Also reports noncompliance with her medications due to increasing depression. Denies fever, chills, vomiting, diarrhea, hematuria Patient has been seen in our ED multiple times for similar symptoms, with recent admission to our facility. Related Data Home Medications ?Medication ?Instructions ?Recorded ?Confirmed apixaban 5 mg tablet (Eliquis) 5 mg PO BID 08/25/20 06/21/24 blood sugar diagnostic (FreeStyle #10 ea 08/25/20 03/18/21 Lite Strips) lancets 28 gauge (FreeStyle #100 ea 08/25/20 03/18/21 Lancets) nebulizers (AeroEclipse II #1 ea 08/25/20 03/18/21 Nebulizer) pen needle, diabetic 32 gauge x #50 ea 08/25/20 03/18/21 (Comfort EZ Pen [place]) atorvastatin 40 mg tablet 1 tab PO DAILY 06/07/22 06/21/24 cholecalciferol (vitamin D3) 25 1 cap PO DAILY 06/07/22 06/21/24 mcg (1,000 unit) capsule (Vitamin D3) insulin glargine 100 unit/mL (3 25 unit subcut BEDTIME 06/07/22 06/21/24 mL) subcutaneous pen (Lantus Solostar U-100 Insulin) losartan 100 mg tablet 100 mg PO DAILY 06/07/22 06/21/24 metformin 500 mg tablet,extended 1,000 mg PO BID 05/11/23 06/21/24 release 24 hr acetaminophen 325 mg tablet 650 mg PO Q4H PRN pain 05/28/24 06/21/24 amlodipine 2.5 mg tablet 2.5 mg PO DAILY 05/28/24 06/21/24 insulin lispro 100 unit/mL 8 - 16 sliding scale dose subcut 05/28/24 06/21/24 subcutaneous pen TIDAC levothyroxine 25 mcg tablet 25 mcg PO DAILY@0600 05/28/24 06/21/24 lidocaine 5 % topical patch 1 patch topical BID PRN pain 05/28/24 06/21/24 epinephrine 0.3 mg/0.3 mL 0.3 mg IM DIRECTED anaphylaxis 06/13/24 06/21/24 injection, auto-injector famotidine 10 mg tablet 10 mg PO BID 06/13/24 06/21/24 doxepin 25 mg capsule 25 mg PO BEDTIME 06/21/24 06/21/24 Previous Rx's ?Medication ?Instructions ?Recorded albuterol sulfate 90 mcg/actuation 2 puff inhalation RQ4H PRN 07/25/22 aerosol inhaler (Ventolin HFA) wheezing #0 grams aripiprazole 5 mg tablet (Abilify) 5 mg PO DAILY #14 tabs 05/17/23 cefuroxime axetil 250 mg tablet 250 mg PO BID #14 tabs 06/23/24 Allergies Allergy/AdvReac Type Severity Reaction Status Date / Time Iodinated Contrast Media Allergy Severe THROAT Verified 06/26/24 12:13 [IV CONTRAST] CLOSING lithium [LITHIUM] Allergy Intermediate AGGRESSION, Verified 06/26/24 12:13 stiffened up & throat closing (moderate to severe) fluoxetine [FLUOXETINE] Allergy Mild ITCHING, Verified 06/26/24 12:13 Suicidal risperidone [From RISPERDAL] Allergy Mild ITCHING Verified 06/26/24 12:13 asparagus [ASPARAGUS] Allergy Unknown unknown Verified 06/26/24 12:13 divalproex sodium Allergy Unknown UNKNOWN, Verified 06/26/24 12:13 [From DEPAKOTE] stiffened up, locked jaw lisinopril [LISINOPRIL] Allergy Unknown COUGH Verified 06/26/24 12:13 olanzapine Allergy Unknown can't Verified 06/26/24 12:13 recall if hives or increased pollen extracts [POLLEN] Allergy Unknown unknown Verified 06/26/24 12:13 tomato [TOMATO] Allergy Unknown UNKNOWN Verified 06/26/24 12:13 quetiapine [From SEROQUEL] AdvReac Intermediate OVERSEDATIO Verified 06/26/24 12:13 N BROCCOLI Allergy Unknown Unknown Uncoded 06/26/24 12:13 FUMARATE Allergy Unknown Unknown Uncoded 06/26/24 12:13 GREEN [place]UNG Allergy Unknown Unknown Uncoded 06/26/24 12:13 TOMATO Allergy Unknown Unknown Uncoded 06/26/24 12:13 Review of Systems Review of Systems: Yes all other systems are reviewed and are negative Constitutional: Constitutional: Reports as per [facility] Past Medical History Attestation statement: The following information was validated with the patient. Source: old records reviewed Medical History Multiple sclerosis exacerbation Excoriation (skin-picking) disorder Back pain GERD (gastroesophageal reflux disease) Peripheral neuropathy PTSD (post-traumatic stress disorder) Mood disorder Elevated cholesterol Fibromyalgia Chronic back pain DDD (degenerative disc disease) Ovarian cyst Kidney stone Normal colonoscopy Lesion of bladder Suicide attempt Depression IBS (irritable bowel syndrome) Obesity (BMI 30-39.9) Endometriosis History of pulmonary embolus (PE) History of DVT (deep vein thrombosis) Diabetes mellitus Asthma HTN (hypertension) Anxiety Multiple sclerosis Surgical History History of lithotripsy History of cystoscopy S/P endometrial ablation H/O neck surgery Hx of dilation and curettage Hx of tubal ligation Hx of appendectomy Hx of cholecystectomy Family History Family History Mother Rheumatoid arteritis COPD (chronic obstructive pulmonary disease) Father HTN (hypertension) Diabetes mellitus Social History Social History Household Members: None Housing: Apartment Do you presently have visiting nurse or other home services: No Alcohol intake: current Alcohol intake frequency: does not drink Comment: 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 SERVICE TO BE EVALUATED BY RN Patient Tobacco Use Status: Current everyday Tobacco user Tobacco use type: Cigarette Cigarettes Per Day: 5 Years Smoked: 39 e-Cigarette/Vaping Use: Currently Using Second Hand Smoke Exposure: No Substance Use Type: Crack/Cocaine and Marijuana Advance Directives: Yes Advance Directives on File: Yes Advance Directives Date on File: 05/18/23 Do you have a plan to hurt others: No Plan service: No Sexual orientation: Straight/Heterosexual Gender identity: Female Physical Exam Vital Signs: Vital Signs: Last Vital Signs Temp 97.8 F 06/26/24 12:05 Pulse 72 06/26/24 16:01 Resp 20 06/26/24 16:01 BP 177/79 H 06/26/24 16:01 Pulse Ox 99 06/26/24 16:01 O2 Del Method Room Air 06/26/24 16:01 BMI result Body Mass Index 29.3 Const: General: cooperative, healthy appearing and no acute distress Orientation/consciousness: patient oriented x3 Limitations: no limitations HEENT: Head: Yes normal to inspection and Yes atraumatic Ears: hearing grossly normal bilaterally General nose exam: Normal external nose present Face and sinus: Yes normal facial exam Eyes: General: appearance normal, both eyes and all related structures EOM: EOMs intact bilaterally Neck: Neck: Yes normal visual inspection and Yes no meningeal signs Resp: Effort & Inspection: normal respiratory effort and no respiratory distress Auscultation: clear to auscultation bilaterally Cardio: Rate: regular rate Heart sounds: S1 normal heart sound present and S2 normal heart sound present GI: Inspection: Yes normal to inspection Palpation (GI): Soft to palpation, Tenderness to palpation present (GI) (diffusely) with no rebound tenderness, no guarding and not rigid : General: Yes no CVA tenderness Back/Spine/Pelvis: Back: no CVA tenderness Skin: Rashes: no rashes Wounds: no wounds Neuro: General: patient oriented x3, tone normal, moves all extremities and no meningeal signs Cranial nerves: Yes CN's II-XII intact bilaterally Extrem: General: Yes normal to inspection Course Course Course Narrative: -patient refusing EKG -POC glucose 536 -troponin 10.1 > will obtain 3 hour repeat. Viral studies negative. Lactic acid WNL -1450--pH 7.38. Potassium low at 3.1 > 60 mEq p.o. repletion ordered. Glucose elevated to 711, no anion gap. Beta hydroxybutyrate negative. Will give IV insulin after potassium repletion. Magnesium WNL. -UA contaminated however appears infected > urine culture from 05/21 grew E coli. Prescription for Ceftin was sent to pharmacy on 06/24/2024, patient states she never picked this prescription up as did not know it was there. Will give dose of Ceftin in the ED but no need for new prescription as he is at pharmacy -1600--glucose improved to 367 after IVF only. No insulin given. Insulin canceled. -1630--ED care transferred to [facility] pending repeat troponin and POC check. Anticipate discharge home Medications Administered Discontinued Medications Generic Name Dose Route Start Last Admin Trade Name Lam PRN Reason Stop Dose Admin Acetaminophen 650 mg 06/26/24 14:56 06/26/24 15:10 Acetaminophen 325 Mg Tablet PO 06/26/24 14:57 650 mg ONCE ONE Administration Cefuroxime Axetil 250 mg 06/26/24 14:55 06/26/24 15:10 Cefuroxime Axetil 250 Mg Tablet PO 06/26/24 14:56 250 mg ONCE ONE Administration Lactated Ringer's 1,000 mls @ 999 mls/hr 06/26/24 12:15 06/26/24 14:15 Lr IV 06/26/24 13:15 Infused .Q1H1M ISI Infusion Lactated Ringer's 1,000 mls @ 999 mls/hr 06/26/24 13:30 06/26/24 15:25 Lr IV 06/26/24 14:30 Infused .Q1H1M ISI Infusion Potassium Chloride 60 meq 06/26/24 14:44 06/26/24 14:55 Potassium Chloride Packet 20 Meq Packet PO 06/26/24 14:45 60 meq ONCE ONE Administration Medical Decision Making Medical Decision Making MDM Narrative: 53-year-old female patient with PMHx significant for PE on Eliquis, HLD, HTN, MS, insulin-dependent DMT2, asthma, cocaine and opiate use disorder, PTSD and recurrent MDD with suicidal ideation, MS, presenting to the ED via EMS from urgent care complaining of chest pressure and SOB x this morning. States she was going to urgent care due to continued abdominal pain, nausea, and dysuria believing she has UTI. On exam vital signs stable, NAD, nontoxic appearing, lungs CTA, abdomen soft diffusely tender, no rebound or guarding. Concern for ACS vs viral illness vs pneumonia. Concern for continued pancreatitis vs DKA/HHS. Rule out metabolic infectious etiologies. Low suspicion for severe sepsis. Rule out UTI Plan: EKG, labs, UA, CXR, IVF, +/-admission Will refrain from additional CT imaging at this time as patient had CT on 06/13 and 06/19. CT on 06/19 unremarkable. > concern for gastroparesis Please refer to course for remaining clinical decision making, interpretation of labs/imaging results, and discussions with consultants and/or family members. Differential Diagnosis Differential Diagnoses: The differential diagnosis associated with the presentation includes As above Admission/Observation Consideration of admission/observation: Escalation of care including admission/observation considered Lab Data MDM Lab Attestation statement: I reviewed the patient's lab results. 06/26/24 12:39 06/26/24 12:38 Labs: Lab Results 06/26/24 06/26/24 06/26/24 Range/Units 12:38 12:39 12:45 WBC 11.3 H (4.8-10.8) X10*3/uL RBC 4.29 (4.20-5.50) X10*6/uL Hgb 12.6 (12.0-16.0) g/dl Hct 36.0 L (37.0-47.0) % MCV 83.9 (80.0-98.0) fL MCH 29.4 (27.0-33.0) pg MCHC 35.0 (31.0-35.0) g/dl RDW 12.2 (11.0-16.0) % Plt Count 271 (160-400) X10*3/uL MPV 9.7 (9.4-12.3) fL Immature Gran % (Auto) 0.3 (0.0-0.4) % Neut % (Auto) 81.0 H (45-73) % Lymph % (Auto) 11.7 L (20-40) % [place] % (Auto) 5.4 (2-11) % Eos % (Auto) 1.2 (0-4) % Baso % (Auto) 0.4 (0-2) % Lymph # (Auto) 1.3 (1.2-4.9) X10*3/uL [place] # (Auto) 0.6 (0.1-1.2) X10*3/uL Eos # (Auto) 0.1 (0.0-0.4) X10*3/uL Baso # (Auto) 0.1 (0.0-0.2) X10*3/uL Abs Immat Gran (auto) 0.03 (0.00-0.03) X10*3/uL Absolute Neuts (auto) 9.2 H (2.0-8.3) x10*3/uL Absolute Nucleated RBC 0.000 (0.0-0.012) X10*3/uL Nucleated RBC % (auto) 0.0 (0.0-0.2) /100WBC PT 10.8 L (10.9-12.4) SEC INR 0.9 (0.9-1.1) VBG pH 7.38 (7.32-7.43) VBG pCO2 41 mmHg VBG pO2 43 mmHg VBG HCO3 25 (22-26) mmol/L VBG O2 Saturation 69.0 % VBG Base Excess 0.2 mmol/L Sodium 135 (135-145) mmol/L Potassium 3.1 L (3.3-5.1) mmol/L Chloride 103 (96-108) mmol/L Carbon Dioxide 24 (22-29) mmol/L Anion Gap 11 L (12-20) BUN 12 (9-16) mg/dL Creatinine 1.06 (0.5-1.4) mg/dL Estim Creat Clear Calc 58.6 Estimated GFR 55 POC Glucose (60-115) mg/dL Random Glucose 711 H* (60-115) mg/dL Lactic Acid 1.4 (0.5-2.0) mmol/L Calcium 9.0 (8.4-10.2) mg/dL Magnesium 1.6 (1.6-2.6) mg/dL Total Bilirubin 0.3 (0.0-1.0) mg/dL Direct Bilirubin 0.1 (0.0-0.5) mg/dL AST 10 (5-31) U/L ALT 13 (0-31) U/L Alkaline Phosphatase 127 H (39-117) U/L Troponin I High Sens 10.1 (<3.5-17.0) ng/L B-Natriuretic Peptide 40 (<100) pg/mL Total Protein 6.2 L (6.5-8.0) g/dL Albumin 3.6 (3.5-5.0) g/dL Lipase 44 (8-78) U/L Beta-Hydroxybutyrate 0.22 (0.02-0.27) mmol/L Urine Color Urine Appearance Urine pH (5.0-9.0) Ur Specific [place] (1.005-1.025) Urine Protein (Neg-Trace) mg/dL Urine Glucose (UA) (Negative) mg/dL Urine Ketones (Negative) mg/dL Urine Blood (Negative) Urine Nitrite (Negative) Ur Leukocyte Esterase (Negative) Urine RBC (0-2) /HPF Urine WBC (0-5) /HPF Ur Squamous Epith Cells (0-2) /HPF Urine Bacteria (None Seen) Hyaline Casts (0-2) /LPF Urine Test (NEGATIVE) Urine Opiates Screen (Not Detect) Ur Buprenorphine Scrn (Not Detect) ng/mL Ur Oxycodone Screen (Not Detect) ng/mL Urine Methadone Screen (Not Detect) ng/mL Urine Fentanyl Screen (Not Detect) Ur Barbiturates Screen (Not Detect) Ur Phencyclidine Scrn (Not Detect) Ur Amphetamines Screen (Not Detect) U Benzodiazepines Scrn (Not Detect) Urine Cocaine Screen (Not Detect) U Marijuana (THC) Screen (Not Detect) Influenza Type A (PCR) NEGATIVE (Negative) Influenza Type B (PCR) NEGATIVE (Negative) RSV RNA Qual (PCR) NEGATIVE (Negative) SARS-CoV-2 RNA (RT-PCR) NEGATIVE (Negative) 06/26/24 06/26/24 06/26/24 Range/Units 13:20 13:46 15:49 WBC (4.8-10.8) X10*3/uL RBC (4.20-5.50) X10*6/uL Hgb (12.0-16.0) g/dl Hct (37.0-47.0) % MCV (80.0-98.0) fL MCH (27.0-33.0) pg MCHC (31.0-35.0) g/dl RDW (11.0-16.0) % Plt Count (160-400) X10*3/uL MPV (9.4-12.3) fL Immature Gran % (Auto) (0.0-0.4) % Neut % (Auto) (45-73) % Lymph % (Auto) (20-40) % Swift % (Auto) (2-11) % Eos % (Auto) (0-4) % Baso % (Auto) (0-2) % Lymph # (Auto) (1.2-4.9) X10*3/uL [place] # (Auto) (0.1-1.2) X10*3/uL Eos # (Auto) (0.0-0.4) X10*3/uL Baso # (Auto) (0.0-0.2) X10*3/uL Abs Immat Gran (auto) (0.00-0.03) X10*3/uL Absolute Neuts (auto) (2.0-8.3) x10*3/uL Absolute Nucleated RBC (0.0-0.012) X10*3/uL Nucleated RBC % (auto) (0.0-0.2) /100WBC PT (10.9-12.4) SEC INR (0.9-1.1) VBG pH (7.32-7.43) VBG pCO2 mmHg VBG pO2 mmHg VBG HCO3 (22-26) mmol/L VBG O2 Saturation % VBG Base Excess mmol/L Sodium (135-145) mmol/L Potassium (3.3-5.1) mmol/L Chloride (96-108) mmol/L Carbon Dioxide (22-29) mmol/L Anion Gap (12-20) BUN (9-16) mg/dL Creatinine (0.5-1.4) mg/dL Estim Creat Clear Calc Estimated GFR POC Glucose 536 H* 367 H* (60-115) mg/dL Random Glucose (60-115) mg/dL Lactic Acid (0.5-2.0) mmol/L Calcium (8.4-10.2) mg/dL Magnesium (1.6-2.6) mg/dL Total Bilirubin (0.0-1.0) mg/dL Direct Bilirubin (0.0-0.5) mg/dL AST (5-31) U/L ALT (0-31) U/L Alkaline Phosphatase (39-117) U/L Troponin I High Sens (<3.5-17.0) ng/L B-Natriuretic Peptide (<100) pg/mL Total Protein (6.5-8.0) g/dL Albumin (3.5-5.0) g/dL Lipase (8-78) U/L Beta-Hydroxybutyrate (0.02-0.27) mmol/L Urine Color Yellow Urine Appearance Cloudy Urine pH 6.5 (5.0-9.0) Ur Specific [place] >= 1.030 H (1.005-1.025) Urine Protein Negative (Neg-Trace) mg/dL Urine Glucose (UA) >=1000 H (Negative) mg/dL Urine Ketones Negative (Negative) mg/dL Urine Blood Trace H (Negative) Urine Nitrite Negative (Negative) Ur Leukocyte Esterase Moderate (2+) H (Negative) Urine RBC 0-2 (0-2) /HPF Urine WBC >50 H (0-5) /HPF Ur Squamous Epith Cells 6-10 (0-2) /HPF Urine Bacteria 3+ (None Seen) Hyaline Casts 0-2 (0-2) /LPF Urine Test NEGATIVE (NEGATIVE) Urine Opiates Screen Not Detected (Not Detect) Ur Buprenorphine Scrn Not Detected (Not Detect) ng/mL Ur Oxycodone Screen Not Detected (Not Detect) ng/mL Urine Methadone Screen Not Detected (Not Detect) ng/mL Urine Fentanyl Screen Not Detected (Not Detect) Ur Barbiturates Screen Not Detected (Not Detect) Ur Phencyclidine Scrn Not Detected (Not Detect) Ur Amphetamines Screen Not Detected (Not Detect) U Benzodiazepines Scrn Not Detected (Not Detect) Urine Cocaine Screen POSITIVE H (Not Detect) U Marijuana (THC) Screen Not Detected (Not Detect) Influenza Type A (PCR) (Negative) Influenza Type B (PCR) (Negative) RSV RNA Qual (PCR) (Negative) SARS-CoV-2 RNA (RT-PCR) (Negative) Independent Interpretation I performed an independent interpretation of an: EKG Radiology Impression Discussion of test interpretation with radiology: I have reviewed the radiologist's reading. Independent Historian Clinical information obtained from an independent historian. History obtained from or confirmed by: EMS External Record Review External record reviewed: Inpatient record, Office record, Outpatient record, Prior outpatient labs, Prior outpatient radiology, Primary care record and Outside ED record Tests considered The following testing was considered but not selected: As above Prescription Management I considered prescription management with: Pain Medication and Antibiotic Chronic Conditions Patient?s care impacted by: Diabetes and Hypertension Critical Care Time Critical Care Time Critical Care Time: Yes Total Critical Care Time: 40 Attestation: I have personally provided critical care time exclusive of time spent on separately billable procedures. Time includes review of lab data, radiology results, discussion with consultants, and monitoring for potential decompensation. Intervention performed as documented. Discharge Plan Discharge Clinical Impression: Acute hyperglycemia, UTI (urinary tract infection) Patient Disposition: Still a Patient Additional Instructions: SAMPLE GRADER YOUR PRESCRIPTION FROM THE PHARMACY FOR YOUR UTI You need to be compliant with her home prescribed medications specifically your insulin. Your sugar has been very elevated, and was elevated again today. This can kill you Prescriptions: No Action famotidine 10 mg Tablet 10 mg PO BID insulin glargine [Lantus Solostar U-100 Insulin] 100 unit/mL (3 mL) insulin pen 25 unit subcut BEDTIME atorvastatin 40 mg tablet 1 tab PO DAILY losartan 100 mg tablet 100 mg PO DAILY cholecalciferol (vitamin D3) [Vitamin D3] 25 mcg (1,000 unit) capsule 1 cap PO DAILY albuterol sulfate [Ventolin HFA] 90 mcg/actuation Hfa Aerosol Inhaler 2 puff inhalation RQ4H PRN (Reason: wheezing) Qty: 0 0RF metformin 500 mg tablet extended release 24 hr 1,000 mg PO BID aripiprazole [Abilify] 5 mg Tablet 5 mg PO DAILY Qty: 14 0RF acetaminophen 325 mg tablet 650 mg PO Q4H PRN (Reason: pain) amlodipine 2.5 mg tablet 2.5 mg PO DAILY levothyroxine 25 mcg tablet 25 mcg PO DAILY@0600 lidocaine 5 % adhesive patch,medicated 1 patch topical BID PRN (Reason: pain) insulin lispro 100 unit/mL insulin pen 8 - 16 sliding scale dose subcut TIDAC Protocol: Insulin Correction Scale Less than or equal to 110 ---- Give (units): 0 111 to 150 Give (units): 8 151 to 200 Give (units): 10 201 to 250 Give (units): 12 251 to 300 Give (units): 14 301 to 350 Give (units): 16 Greater than 350 Give (units): 0 Call MD if Blood Glucose > : 350 epinephrine 0.3 mg/0.3 mL auto-injector 0.3 mg IM DIRECTED cefuroxime axetil 250 mg tablet 250 mg PO BID Qty: 14 0RF doxepin 25 mg capsule 25 mg PO BEDTIME (DME) AeroEclipse II Nebulizer Misc See Rx Instructions .ROUTE .MEDSUPPLY Qty: 1 Rx Instructions: As directed (DME) lancets [FreeStyle Lancets] 28 gauge misc See Rx Instructions .ROUTE .MEDSUPPLY Qty: 100 Rx Instructions: As directed (DME) FreeStyle Lite Strips Strip See Rx Instructions .ROUTE .MEDSUPPLY Qty: 10 Rx Instructions: As directed (DME) pen needle, diabetic [Comfort EZ Pen [place]] 32 gauge x 5/32 needle See Rx Instructions .ROUTE .MEDSUPPLY Qty: 50 Rx Instructions: As directed Eliquis 5 mg tablet 5 mg PO BID Referrals: Tyesha Rogers MD [Primary Care Provider] - 3 days Print Language: Montenegrin
[2024-06-26 12:05] VITALS: BP 142/72; BP 166/77; PULSE 79; PULSE 88; RESP 16; TEMP 36.6; O2SAT 98; O2SAT 99; BMI 29.3
[2024-06-26] MEDS: Lactated Ringers 1,000 ML 999 ML IV ×2 (12:28→14:15)
[2024-06-26 12:45] LABS: MANUAL DIFF FLAG NO
[2024-06-26 12:46] LABS: Basophils Absolute Auto 0.1 X10*3/uL (0.0-0.2); Basophils Percent Auto 0.4 % (0-2); Eosinophils Absolute Auto 0.1 X10*3/uL (0.0-0.4); Eosinophils Percent Auto 1.2 % (0-4); Hemoglobin 12.6 g/dl (12.0-16.0); Imm Gran Abs Auto 0.03 X10*3/uL (0.00-0.03); Imm Gran Pct Auto 0.3 % (0.0-0.4); Lymphocytes Absolute Auto 1.3 X10*3/uL (1.2-4.9); Lymphocytes Percent Auto 11.7 % (20-40); Mean Corpuscular Hemoglobin 29.4 pg (27.0-33.0); Mean Corpuscular Volume 83.9 fL (80.0-98.0); Mean Platelet Volume 9.7 fL (9.4-12.3); Monocytes Absolute Auto 0.6 X10*3/uL (0.1-1.2); Monocytes Percent Auto 5.4 % (2-11); Neutrophils Absolute Auto 9.2 x10*3/uL (2.0-8.3); Platelet Count 271 X10*3/uL (160-400); Red Blood Count 4.29 X10*6/uL (4.20-5.50); Red Cell Distribution Width 12.2 % (11.0-16.0); White Blood Count 11.3 X10*3/uL (4.8-10.8)
[2024-06-26 12:49] LABS: VBG Base Excess 0.2 mmol/L; VBG HCO3 25 mmol/L (22-26); VBG pCO2 41 mmHg; VBG pH 7.38 (7.32-7.43); VBG pO2 43 mmHg
[2024-06-26 12:50] LABS: Venous Blood Gas Refer to POC result
[2024-06-26 12:58] LABS: INTERNATIONAL NORM RATIO 0.9 (0.9-1.1); Prothrombin Time 10.8 SEC (10.9-12.4)
[2024-06-26 13:00] LABS: Lactic Acid 1.4 mmol/L (0.5-2.0)
[2024-06-26 13:09] LABS: B Type Natriuretic Peptide 40 pg/mL (<100)
[2024-06-26 13:11] LABS: Troponin-I High Sensitivity 10.1 ng/L (<3.5-17.0)
[2024-06-26 13:24] LABS: Glucose, Whole Blood 536 mg/dL (60-115)
[2024-06-26 13:25] LABS: Influenza A PCR NEGATIVE (Negative); Influenza B PCR NEGATIVE (Negative); Resp Syncy Virus RNA Qual PCR NEGATIVE (Negative); SARS COV2 PCR INHOUSE NEGATIVE (Negative)
--- NOTE | 2024-06-26 13:53 | MHC.EDTECH ---
EKG not completed since patient refused EKG. Patient states her heart is fine and she has had multiple EKGs in the past. Provider Shadia huerta.
[2024-06-26 13:58] LABS: Appearance Urine Cloudy; Color Urine Yellow; Glucose Urine UA >=1000 mg/dL (Negative); Leukocyte Esterase Urine Moderate (2+) (Negative); Nitrite Urine Negative (Negative); PH 6.5 (5.0-9.0); Specific Gravity - Urine >= 1.030 (1.005-1.025); UMIC TRIGGER UACC YES; Urine Blood Trace (Negative); Urine Ketones Negative (Negative); Urine Protein Negative (Neg-Trace)
[2024-06-26 14:00] LABS: UPreg QC Valid YES; Urine Pregnancy NEGATIVE (NEGATIVE)
[2024-06-26 14:07] LABS: Amphetamine Screen Urine Not Detected (Not Detect); Barbiturates, Urine Not Detected (Not Detect); Benzodiazepines Screen Urine Not Detected (Not Detect); Buprenorphine Scr Not Detected (Not Detect); Cannabinoid Screen Urine Not Detected (Not Detect); Cocaine Screen Urine POSITIVE (Not Detect); Fentanyl, urine Not Detected (Not Detect); Methadone Screen, Urine Not Detected (Not Detect); Opiate Screen Urine Not Detected (Not Detect); Oxycodone Screen Urine Not Detected (Not Detect); Phencyclidine Screen Urine Not Detected (Not Detect)
[2024-06-26 14:12] LABS: Bacteria Urine 3+ (None Seen); Hyaline Casts Urine 0-2 /LPF (0-2); RBC Urine 0-2 /HPF (0-2); UACC Culture Trigger YES; WBC Urine >50 /HPF (0-5)
--- NOTE | 2024-06-26 14:16 | PC.NURSE ---
patient sleeping in bed, respirations equal and unlabored. patient woke up and stated to staff she was going to rip out her IV like last time, patient agitated will not state why, patient ambulated to bathroom with steady gait.
[2024-06-26 14:42] LABS: Beta-Hydroxybutyrate 0.22 mmol/L (0.02-0.27)
[2024-06-26 14:43] LABS: Alanine Aminotransferase 13 U/L (0-31); Albumin Level 3.6 g/dL (3.5-5.0); Alkaline Phosphatase 127 U/L (39-117); Anion Gap 11 (12-20); Aspartate Amino Transferase 10 U/L (5-31); Bilirubin Direct 0.1 mg/dL (0.0-0.5); Bilirubin Total 0.3 mg/dL (0.0-1.0); Blood Urea Nitrogen 12 mg/dL (9-16); Carbon Dioxide 24 mmol/L (22-29); Chloride 103 mmol/L (96-108); Creatinine Clr Calc Pharmacy 58.6; Estimated Glomerular Filt Rate 55; Glucose Random 711 mg/dL (60-115); Lipase 44 U/L (8-78); Magnesium 1.6 mg/dL (1.6-2.6); Potassium 3.1 mmol/L (3.3-5.1); Sodium 135 mmol/L (135-145); Total Protein 6.2 g/dL (6.5-8.0)
[2024-06-26] MEDS: Potassium Chloride Packet 20 MEQ PACKET 60 MEQ PO (14:55)
[2024-06-26] MEDS: cefuroxime axetiL 250 MG TABLET PO (15:10)
[2024-06-26] MEDS: Acetaminophen 325 MG TABLET 650 MG PO (15:10)
--- NOTE | 2024-06-26 15:30 | MHC.EDTECH ---
Spoke with LUCIUS Aguilar. RN stated that patient is refusing the EKG at this time.
[2024-06-26 15:55] LABS: Glucose, Whole Blood 367 mg/dL (60-115)
[2024-06-26 16:01] VITALS: BP 177/79; PULSE 72; RESP 20; O2SAT 99
--- NOTE | 2024-06-26 17:20 | MHC.EDTECH ---
attempted to obtain bloodwork. patient was not cooperative due to not having a ride, not being able to eat due to her high sugar, and not living close. RN and PA aware
[2024-06-26 18:16] LABS: Troponin-I High Sensitivity 8.1 ng/L (<3.5-17.0)
[2024-06-26 19:13] VITALS: BP 177/79; PULSE 72; RESP 20; TEMP 36.6; O2SAT 99
--- NOTE | 2024-07-17 14:40 | MHC.CARE ---
[facility] clinician Mira called to report that Pt resides in [facility]'s low threshold housing and called the office today to report vague SI and stated that she took a handful of meds last night and just woke up today. [facility] did not assess Pt and she is not on a [address] 12a.
== END 2024-06-26 19:14 | disposition home or self-care (01) ==
PROVIDERS: Physician Assistant; Emergency Provider Emergency Medicine; PCP Family Medicine
DX: E11.65 Type 2 diabetes mellitus with hyperglycemia (principal); N39.0 Urinary tract infection, site not specified; R06.02 Shortness of breath; I10 Essential (primary) hypertension; E78.5 Hyperlipidemia, unspecified; G35 Multiple sclerosis; F14.10 Cocaine abuse, uncomplicated; F17.210 Nicotine dependence, cigarettes, uncomplicated; Z86.718 Personal history of other venous thrombosis and embolism; Z86.711 Personal history of pulmonary embolism; Z03.818 Encounter for observation for suspected exposure to other biological agents ruled out; Z79.01 Long term (current) use of anticoagulants; Z79.4 Long term (current) use of insulin; Z79.84 Long term (current) use of oral hypoglycemic drugs
CPT/HCPCS: 0241U; 36415; 71045; 80048; 80076; 80307; 81001; 81025; 82010; 82803; 82947; 83605; 83690; 83735; 83880; 84484; 85025; 85610; 87086; 87088; 87186; 96360; 96361; 99284; J7120

== ENCOUNTER 2024-07-17 14:47 | Inpatient (IN) | payer MEDICAID, OTHER, SELFPAY ==
--- NOTE | ~2024-07-17 | MR_ITS ---
EXAMINATION: MR BRAIN WITHOUT CONTRAST CLINICAL INFORMATION: Facial droop COMPARISON: Head CT on 07/20/2024, Brain MRI on 03/07/18 TECHNIQUE: MRI of the brain was obtained using routine sequences without contrast. FINDINGS: There is stable periventricular and subcortical white matter hyperintensity compared to the prior exam. The callosal white matter lesions are not significantly changed. There is no focus of reduced diffusivity or abnormal susceptibility artifact within the brain parenchyma. The midline structures including cerebellar vermis, and pituitary gland are normal in appearance. There is no acute intracranial hemorrhage, acute ischemic changes, mass, mass effect, or extra-axial fluid collection. There is no midline shift or hydrocephalus. The basal subarachnoid cisterns and cerebral sulci are not effaced. The major intracranial flow voids are present, and grossly unremarkable. MR/MR head/brain wo con IMPRESSION: 1. No acute intracranial abnormality. 2. Stable white matter disease consistent with patient's history of multiple sclerosis. Electronically signed by: Rosa Maciel MD 07/20/2024 06:06 PM [facility]
--- NOTE | ~2024-07-17 | CT_ITS ---
EXAMINATION: CT head for stroke CLINICAL INFORMATION: facial droop COMPARISON: CT head 06/28/2018 and 03/07/2018, MR brain 03/07/2018 TECHNIQUE: Contiguous axial imaging was performed from the skull base to vertex without intravenous contrast. This CT examination was performed using dose optimization techniques as appropriate, variously including the following: * Automated exposure control * Adjustment of mA and/or kV according to patient size (this includes techniques or standardized protocols for targeted exams where dose is matched to indication/reason for exam; i.e. extremities or head) * Use of iterative reconstruction technique DLP: 695 mGy-cm. FINDINGS: The rodriguez-white matter differentiation is preserved. No evidence of edematous territorial infarction or acute intracranial hemorrhage. Hypoattenuation in the deep white matter of the left greater than right occipital lobes appears progressed since 2018. Hypoattenuation within the genu of the corpus callosum is not significantly changed. No abnormal mass effect or midline shift is seen. No extra-axial fluid collections are identified. No hydrocephalus. No significant volume loss. The cerebellar tonsils are well positioned. No acute osseous or soft tissue abnormality. Visualized portions of the orbits are unremarkable. The mastoid air cells and visualized portions of the paranasal sinuses are well aerated. CT/CT head for stroke IMPRESSION: 1. No evidence of edematous territorial infarction or acute intracranial hemorrhage. 2. Hypoattenuation in the deep white matter of the left greater than right occipital lobes appears progressed since 2018. Hypoattenuation within the genu of the corpus callosum is not significantly changed. If clinically warranted, consider brain MRI for further assessment. These results were discussed with Aureliano Ritter MD MD by telephone on 07/20/2024 at 4:23 PM and it was ascertained that the content of the report was understood at the time of direct communication. Electronically signed by: Mira Jarvis DO 07/20/2024 04:[address] [facility]
--- NOTE | ~2024-07-17 | XR_ITS ---
EXAMINATION: XR CHEST CLINICAL INFORMATION: Chest pain. COMPARISON: June 26, 2024. TECHNIQUE: 2 views of the chest were obtained. FINDINGS: No consolidation, pleural effusion or pneumothorax. Cardiomediastinal silhouette is normal in size. Multilevel thoracic spondylosis. XR/XR chest 2V IMPRESSION: No acute airspace disease. Electronically signed by: Raji Coleman MD 07/19/2024 01:27 PM EST
--- NOTE | ~2024-07-17 | NM_ITS ---
PULMONARY PERFUSION ONLY STUDY: CLINICAL INDICATION: Left upper chest pain. PROCEDURE: Following the intravenous administration of 4.0 millicuries technetium 99m MAA, images of the chest were obtained in multiple projections using a gamma scintiphotographic camera. COMPARISON: Chest radiograph done on the same day. PERFUSION IMAGES: No large segmental perfusion defect is seen on either side to suspect pulmonary thromboembolism. NM/NM pul perfusion IMPRESSION: Based on perfusion only modified PIOPED 2 criteria, pulmonary thromboembolism is absent. Electronically signed by: Jamie Queen MD 07/19/2024 04:07 PM [facility]
[2024-07-17 15:30] VITALS: BP 116/62; BP 143/91; PULSE 70; PULSE 76; RESP 16; TEMP 36.6; O2SAT 94; O2SAT 95; BMI 27.4
[2024-07-17 15:41] LABS: Glucose, Whole Blood 535 mg/dL (60-115)
[2024-07-17 16:09] LABS: Appearance Urine Clear; Color Urine Yellow; Glucose Urine UA >=1000 mg/dL (Negative); Leukocyte Esterase Urine Moderate (2+) (Negative); Nitrite Urine Negative (Negative); PH 6.5 (5.0-9.0); Specific Gravity - Urine >= 1.030 (1.005-1.025); UMIC TRIGGER UACC YES; Urine Blood Trace (Negative); Urine Ketones Negative (Negative); Urine Protein Negative (Neg-Trace)
--- NOTE | 2024-07-17 16:14 | PC.NURSE ---
This RN spoke with Dayne from poison control r/t patient self report of taking 5-6 pills each of her metformin 1000mg, lyrica 25mg, flexeril 10mg , benadryl 25mg and doxepin 25mg. Poison control recommends checking an EKG, if QTC or QRS are prolonged then repeat EKG's q2 hours x 3. also recommend checking a VBG in addition to labs that have already been ordered.
[2024-07-17 16:20] LABS: UPreg QC Valid YES; Urine Pregnancy NEGATIVE (NEGATIVE)
[2024-07-17 16:54] LABS: Venous Blood Gas Refer to POC result
[2024-07-17 16:55] LABS: VBG Base Excess 1.6 mmol/L; VBG HCO3 26 mmol/L (22-26); VBG pCO2 42 mmHg; VBG pO2 40 mmHg
[2024-07-17 16:55] LABS: Basophils Absolute Auto 0.1 X10*3/uL (0.0-0.2); Basophils Percent Auto 0.6 % (0-2); Eosinophils Absolute Auto 0.2 X10*3/uL (0.0-0.4); Eosinophils Percent Auto 1.7 % (0-4); Hematocrit 42.1 % (37.0-47.0); Hemoglobin 14.8 g/dl (12.0-16.0); Imm Gran Abs Auto 0.05 X10*3/uL (0.00-0.03); Imm Gran Pct Auto 0.5 % (0.0-0.4); Lymphocytes Absolute Auto 1.8 X10*3/uL (1.2-4.9); Lymphocytes Percent Auto 18.3 % (20-40); MANUAL DIFF FLAG SCAN; Mean Corpuscular HGB Conc 35.2 g/dl (31.0-35.0); Mean Corpuscular Hemoglobin 29.5 pg (27.0-33.0); Mean Corpuscular Volume 83.9 fL (80.0-98.0); Monocytes Absolute Auto 0.4 X10*3/uL (0.1-1.2); Monocytes Percent Auto 4.1 % (2-11); Neutrophils Absolute Auto 7.3 x10*3/uL (2.0-8.3); Neutrophils Percent Auto 74.8 % (45-73); PLT CLUMP 1; Red Blood Count 5.02 X10*6/uL (4.20-5.50); Red Cell Distribution Width 12.6 % (11.0-16.0); SCAN SMEAR FLAG 1
[2024-07-17 16:58] LABS: White Blood Count 9.8 X10*3/uL (4.8-10.8)
[2024-07-17 17:08] LABS: COVID-19 Test Negative (Negative); IDNOW Serial# 08D9AD1C
--- NOTE | 2024-07-17 17:11 | MHC.EDTECH ---
Pt refused EKG stating I hate EKGS, I don't want the EKG, I don't care what poison control says. RN aware
[2024-07-17 17:13] LABS: Mean Platelet Volume 10.7 fL (9.4-12.3); Platelet Count 229 X10*3/uL (160-400); SLIDE REVIEW VERIFIED
[2024-07-17 17:17] LABS: Acetaminophen LAB < 3 mcg/mL (<30); Salicylate < 5.0 mg/dL (15-30)
[2024-07-17 17:37] LABS: Alanine Aminotransferase 24 U/L (0-31); Albumin Level 3.8 g/dL (3.5-5.0); Alkaline Phosphatase 125 U/L (39-117); Anion Gap 14 (12-20); Aspartate Amino Transferase 20 U/L (5-31); Bilirubin Total 0.3 mg/dL (0.0-1.0); Blood Urea Nitrogen 10 mg/dL (9-16); Calcium 8.9 mg/dL (8.4-10.2); Carbon Dioxide 22 mmol/L (22-29); Chloride 100 mmol/L (96-108); Creatinine Clr Calc Pharmacy 71.6; Estimated Glomerular Filt Rate > 60; Ethanol < 10 mg/dL; Glucose Random 565 mg/dL (60-115); Sodium 132 mmol/L (135-145); Total Protein 7.4 g/dL (6.5-8.0)
[2024-07-17 17:40] LABS: Amphetamine Screen Urine Not Detected (Not Detect); Barbiturates, Urine Not Detected (Not Detect); Benzodiazepines Screen Urine Not Detected (Not Detect); Buprenorphine Scr Not Detected (Not Detect); Cannabinoid Screen Urine Not Detected (Not Detect); Cocaine Screen Urine POSITIVE (Not Detect); Fentanyl, urine Not Detected (Not Detect); Methadone Screen, Urine Not Detected (Not Detect); Opiate Screen Urine Not Detected (Not Detect); Oxycodone Screen Urine Not Detected (Not Detect); Phencyclidine Screen Urine Not Detected (Not Detect)
[2024-07-17 18:00] VITALS: BP 127/85; PULSE 68; RESP 16; TEMP 37.1; O2SAT 99
[2024-07-17] MEDS: Insulin Lispro 100 UNIT/ML 3 ML VIAL 10 UNIT SUBCUT (18:13)
--- NOTE | 2024-07-17 18:18 | ED_ITS ---
HPI - Psych General Chief Complaint: Psychiatric Symptoms Stated Complaint: SI W/ATTEMPT,HYPERGLYCEMIA PER EMS Time Seen by Provider: 07/17/24 16:06 History of Present Illness HPI Narrative: Patient is a 53-year-old female with a history of wanting to hurt herself. Last night patient at 18:00 took approximately 5 or 6 tablets of metformin, Lyrica, Flexeril, Benadryl, doxepin. Subsequently patient came in for help. She has been using crack cocaine for the last few days. Patient denies any suicidal homicidal ideation at this time. No fever no chills. Have not been taking her diabetes pill since. Related Data Home Medications ?Medication ?Instructions ?Recorded ?Confirmed apixaban 5 mg tablet (Eliquis) 5 mg PO BID 08/25/20 07/17/24 blood sugar diagnostic (FreeStyle #10 ea 08/25/20 03/18/21 Lite Strips) lancets 28 gauge (FreeStyle #100 ea 08/25/20 03/18/21 Lancets) nebulizers (AeroEclipse II #1 ea 08/25/20 03/18/21 Nebulizer) pen needle, diabetic 32 gauge x #50 ea 08/25/20 03/18/21/32 (Comfort EZ Pen [place]) atorvastatin 40 mg tablet 1 tab PO DAILY 06/07/22 07/17/24 cholecalciferol (vitamin D3) 25 1 cap PO DAILY 06/07/22 07/17/24 mcg (1,000 unit) capsule (Vitamin D3) insulin glargine 100 unit/mL (3 25 unit subcut BEDTIME 06/07/22 07/17/24 mL) subcutaneous pen (Lantus Solostar U-100 Insulin) losartan 100 mg tablet 100 mg PO DAILY 06/07/22 07/17/24 metformin 500 mg tablet,extended 1,000 mg PO BID 05/11/23 07/17/24 release 24 hr acetaminophen 325 mg tablet 650 mg PO Q4H PRN pain 05/28/24 07/17/24 amlodipine 2.5 mg tablet 2.5 mg PO DAILY 05/28/24 07/17/24 insulin lispro 100 unit/mL 8 - 16 sliding scale dose subcut 05/28/24 07/17/24 subcutaneous pen TIDAC levothyroxine 25 mcg tablet 25 mcg PO DAILY@0600 09/17/24 11/06/24 lidocaine 5 % topical patch 1 patch topical BID PRN pain 05/28/24 06/21/24 epinephrine 0.3 mg/0.3 mL 0.3 mg IM DIRECTED anaphylaxis 06/13/24 06/21/24 injection, auto-injector famotidine 10 mg tablet 10 mg PO BID 06/13/24 07/17/24 doxepin 25 mg capsule 25 mg PO BEDTIME 06/21/24 07/17/24 Previous Rx's ?Medication ?Instructions ?Recorded albuterol sulfate 90 mcg/actuation 2 puff inhalation RQ4H PRN 07/25/22 aerosol inhaler (Ventolin HFA) wheezing #0 grams aripiprazole 5 mg tablet (Abilify) 5 mg PO DAILY #14 tabs 05/17/23 Allergies Allergy/AdvReac Type Severity Reaction Status Date / Time Iodinated Contrast Media Allergy Severe THROAT Verified 07/17/24 15:39 [IV CONTRAST] CLOSING lithium [LITHIUM] Allergy Intermediate AGGRESSION, Verified 07/17/24 15:39 stiffened up & throat closing (moderate to severe) fluoxetine [FLUOXETINE] Allergy Mild ITCHING, Verified 07/17/24 15:39 Suicidal risperidone [From RISPERDAL] Allergy Mild ITCHING Verified 07/17/24 15:39 asparagus [ASPARAGUS] Allergy Unknown unknown Verified 07/17/24 15:39 divalproex sodium Allergy Unknown UNKNOWN, Verified 07/17/24 15:39 [From DEPAKOTE] stiffened up, locked jaw lisinopril [LISINOPRIL] Allergy Unknown COUGH Verified 07/17/24 15:39 olanzapine Allergy Unknown can't Verified 07/17/24 15:39 recall if hives or increased pollen extracts [POLLEN] Allergy Unknown unknown Verified 07/17/24 15:39 tomato [TOMATO] Allergy Unknown UNKNOWN Verified 07/17/24 15:39 quetiapine [From SEROQUEL] AdvReac Intermediate OVERSEDATIO Verified 06/26/24 12:13 N BROCCOLI Allergy Unknown Unknown Uncoded 06/26/24 12:13 FUMARATE Allergy Unknown Unknown Uncoded 06/26/24 12:13 GREEN CHEUNG Allergy Unknown Unknown Uncoded 06/26/24 12:13 TOMATO Allergy Unknown Unknown Uncoded 06/26/24 12:13 Review of Systems 2 Review of Systems: No fever no chills no chest pain Yes all other systems are reviewed and are negative [facility] Past Medical History Attestation statement: The following information was validated with the patient. Medical History Multiple sclerosis exacerbation Excoriation (skin-picking) disorder Back pain GERD (gastroesophageal reflux disease) Peripheral neuropathy PTSD (post-traumatic stress disorder) Mood disorder Elevated cholesterol Fibromyalgia Chronic back pain DDD (degenerative disc disease) Ovarian cyst Kidney stone Normal colonoscopy Lesion of bladder Suicide attempt Depression IBS (irritable bowel syndrome) Obesity (BMI 30-39.9) Endometriosis History of pulmonary embolus (PE) History of DVT (deep vein thrombosis) Diabetes mellitus Asthma HTN (hypertension) Anxiety Multiple sclerosis Surgical History History of lithotripsy History of cystoscopy S/P endometrial ablation H/O neck surgery Hx of dilation and curettage Hx of tubal ligation Hx of appendectomy Hx of cholecystectomy Family History Family History Mother Rheumatoid arteritis COPD (chronic obstructive pulmonary disease) Father HTN (hypertension) Diabetes mellitus Social History Social History Household Members: None Housing: Apartment Do you presently have visiting nurse or other home services: No Alcohol intake: current Alcohol intake frequency: holidays/special occasions only Comment: SEEKING RN ANTE PARTUM SERVICE TO BE EVALUATED BY RN Patient Tobacco Use Status: Current everyday Tobacco user Tobacco use type: Cigarette Cigarettes Per Day: 5 Years Smoked: 39 Smoked in Last 30 Days: Yes e-Cigarette/Vaping Use: Currently Using Second Hand Smoke Exposure: No Use of substances other than those prescribed or required for medical reasons: Yes Substance Use Type: Crack/Cocaine Substance Use Frequency: Recent Binge Last Used Substance: Days (ago) Advance Directives: Yes Advance Directives on File: Yes Advance Directives Date on File: 05/18/23 service: No Sexual orientation: Straight/Heterosexual Gender identity: Female Physical Exam 2 Vital Signs: Vital Signs: Last Vital Signs Temp 98.7 F 07/17/24 18:00 Pulse 68 07/17/24 18:00 Resp 16 07/17/24 18:00 BP 127/85 07/17/24 18:00 Pulse Ox 99 07/17/24 18:00 O2 Del Method Room Air 07/17/24 18:00 BMI result Body Mass Index 27.4 Appearance: Alert. Oriented X3. No acute distress. Eyes: Pupils equal, round and reactive to light. ENT: Pharynx normal. Neck: Normal inspection. Neck supple. No lymph nodes noted. No crepitus CVS: Normal heart rate and rhythm. Pulses normal. Normal S1 and S2 Respiratory: No respiratory distress. Breath sounds normal. No Wheezing. No rales Abdomen: Soft and nontender. No rigidity. No distention. good BS x4 Skin: Skin warm and dry. Normal skin color. Normal skin turgor. Extremities: No lower extremity edema. Neurovascular intact to all extremities. No Lacerations. No Rash Neuro: Oriented X 3. No motor deficit. No sensory deficit. Moving all extermities. No slurred speech Medications Administered Discontinued Medications Generic Name Dose Route Start Last Admin Trade Name Freq PRN Reason Stop Dose Admin Sodium Chloride 1,000 mls @ 999 mls/hr 07/17/24 17:45 07/17/24 19:34 Ns IV 07/17/24 18:45 Infused .Q1H1M ISI Infusion Sodium Chloride 1,000 mls @ 999 mls/hr 07/17/24 19:30 07/17/24 21:00 Ns IV 07/17/24 20:30 Infused .Q1H1M ISI Infusion Insulin Human Lispro 10 unit 07/17/24 17:36 07/17/24 18:13 Insulin Lispro 100 Unit/Ml 3 Ml Vial SUBCUT 07/17/24 17:37 10 unit ONCE ONE Administration Insulin Human Regular 10 unit 07/17/24 19:46 07/17/24 19:57 Insulin Regular, Human 100 Unit/Ml 10 Ml Vial IVPUSH 07/17/24 19:47 10 unit ONCE ONE Administration Lorazepam 1 mg 07/17/24 18:53 07/17/24 19:00 Lorazepam 1 Mg Tablet PO 07/17/24 18:54 1 mg ONCE ONE Administration Medical Decision Making Medical Decision Making [facility] Narrative: Patient is 53 years old presents today with having suicidal ideations. Patient took multiple pills. Did recreational drugs. Monitor in the emergency department patient's sugar was greater than 500. Was given 2 doses of insulin given fluids. Sugars down to 200 range. There is no evidence of diabetic ketoacidosis either labs. Patient evaluated by [facility]. Will admit for further evaluation of patient's suicidal Differential Diagnosis Differential Diagnoses: The differential diagnosis associated with the presentation includes Polysubstance abuse, hyperglycemia, Admission/Observation Consideration of admission/observation: Escalation of care including admission/observation considered Consult Healthcare Provider Management of the patient was discussed with: Rn Observation ([facility]) Lab Data MDM Lab Attestation statement: I reviewed the patient's lab results. 07/17/24 16:45 07/17/24 16:45 Labs: Lab Results 07/17/24 07/17/24 07/17/24 Range/Units 15:36 15:57 16:45 WBC 9.8 (4.8-10.8) X10*3/uL RBC 5.02 (4.20-5.50) X10*6/uL Hgb 14.8 (12.0-16.0) g/dl Hct 42.1 (37.0-47.0) % MCV 83.9 (80.0-98.0) fL MCH 29.5 (27.0-33.0) pg MCHC 35.2 H (31.0-35.0) g/dl RDW 12.6 (11.0-16.0) % Plt Count 229 (160-400) X10*3/uL MPV 10.7 (9.4-12.3) fL Immature Gran % (Auto) 0.5 H (0.0-0.4) % Neut % (Auto) 74.8 H (45-73) % Lymph % (Auto) 18.3 L (20-40) % [place] % (Auto) 4.1 (2-11) % Eos % (Auto) 1.7 (0-4) % Baso % (Auto) 0.6 (0-2) % Lymph # (Auto) 1.8 (1.2-4.9) X10*3/uL [place] # (Auto) 0.4 (0.1-1.2) X10*3/uL Eos # (Auto) 0.2 (0.0-0.4) X10*3/uL Baso # (Auto) 0.1 (0.0-0.2) X10*3/uL Abs Immat Gran (auto) 0.05 H (0.00-0.03) X10*3/uL Absolute Neuts (auto) 7.3 (2.0-8.3) x10*3/uL Absolute Nucleated RBC 0.000 (0.0-0.012) X10*3/uL Nucleated RBC % (auto) 0.0 (0.0-0.2) /100WBC Smear Tech's Comments VERIFIED VBG pH (7.32-7.43) VBG pCO2 mmHg VBG pO2 mmHg VBG HCO3 (22-26) mmol/L VBG O2 Saturation % VBG Base Excess mmol/L Sodium 132 L (135-145) mmol/L Potassium 4.0 D (3.3-5.1) mmol/L Chloride 100 (96-108) mmol/L Carbon Dioxide 22 (22-29) mmol/L Anion Gap 14 (12-20) BUN 10 (9-16) mg/dL Creatinine 0.84 (0.5-1.4) mg/dL Estim Creat Clear Calc 71.6 Estimated GFR > 60 POC Glucose 535 H* (60-115) mg/dL Random Glucose 565 H* (60-115) mg/dL Lactic Acid (0.5-2.0) mmol/L Calcium 8.9 (8.4-10.2) mg/dL Magnesium (1.6-2.6) mg/dL Total Bilirubin 0.3 (0.0-1.0) mg/dL AST 20 (5-31) U/L ALT 24 (0-31) U/L Alkaline Phosphatase 125 H (39-117) U/L Total Protein 7.4 (6.5-8.0) g/dL Albumin 3.8 (3.5-5.0) g/dL Urine Color Yellow Urine Appearance Clear Urine pH 6.5 (5.0-9.0) Ur Specific [place] >= 1.030 H (1.005-1.025) Urine Protein Negative (Neg-Trace) mg/dL Urine Glucose (UA) >=1000 H (Negative) mg/dL Urine Ketones Negative (Negative) mg/dL Urine Blood Trace H (Negative) Urine Nitrite Negative (Negative) Ur Leukocyte Esterase Moderate (2+) H (Negative) Urine RBC 0-2 (0-2) /HPF Urine WBC >50 H (0-5) /HPF Ur Squamous Epith Cells 6-10 (0-2) /HPF Urine Bacteria 3+ (None Seen) Hyaline Casts 0-2 (0-2) /LPF Urine Test NEGATIVE (NEGATIVE) Salicylates < 5.0 L (15-30) mg/dL Urine Opiates Screen Not Detected (Not Detect) Ur Buprenorphine Scrn Not Detected (Not Detect) ng/mL Ur Oxycodone Screen Not Detected (Not Detect) ng/mL Urine Methadone Screen Not Detected (Not Detect) ng/mL Urine Fentanyl Screen Not Detected (Not Detect) Acetaminophen < 3 (<30) mcg/mL Ur Barbiturates Screen Not Detected (Not Detect) Ur Phencyclidine Scrn Not Detected (Not Detect) Ur Amphetamines Screen Not Detected (Not Detect) U Benzodiazepines Scrn Not Detected (Not Detect) Urine Cocaine Screen POSITIVE H (Not Detect) U Marijuana (THC) Screen Not Detected (Not Detect) Ethyl Alcohol < 10 mg/dL COVID-19 (JARRETT) Negative (Negative) COVID-19 Clin Com See Note 07/17/24 07/17/24 07/17/24 Range/Units 16:50 19:22 19:34 WBC (4.8-10.8) X10*3/uL RBC (4.20-5.50) X10*6/uL Hgb (12.0-16.0) g/dl Hct (37.0-47.0) % MCV (80.0-98.0) fL MCH (27.0-33.0) pg MCHC (31.0-35.0) g/dl RDW (11.0-16.0) % Plt Count (160-400) X10*3/uL MPV (9.4-12.3) fL Immature Gran % (Auto) (0.0-0.4) % Neut % (Auto) (45-73) % Lymph % (Auto) (20-40) % [place] % (Auto) (2-11) % Eos % (Auto) (0-4) % Baso % (Auto) (0-2) % Lymph # (Auto) (1.2-4.9) X10*3/uL [place] # (Auto) (0.1-1.2) X10*3/uL Eos # (Auto) (0.0-0.4) X10*3/uL Baso # (Auto) (0.0-0.2) X10*3/uL Abs Immat Gran (auto) (0.00-0.03) X10*3/uL Absolute Neuts (auto) (2.0-8.3) x10*3/uL Absolute Nucleated RBC (0.0-0.012) X10*3/uL Nucleated RBC % (auto) (0.0-0.2) /100WBC Smear Tech's Comments VBG pH 7.40 (7.32-7.43) VBG pCO2 42 mmHg VBG pO2 40 mmHg VBG HCO3 26 (22-26) mmol/L VBG O2 Saturation 61.0 % VBG Base Excess 1.6 mmol/L Sodium (135-145) mmol/L Potassium (3.3-5.1) mmol/L Chloride (96-108) mmol/L Carbon Dioxide (22-29) mmol/L Anion Gap (12-20) BUN (9-16) mg/dL Creatinine (0.5-1.4) mg/dL Estim Creat Clear Calc Estimated GFR POC Glucose 423 H* (60-115) mg/dL Random Glucose (60-115) mg/dL Lactic Acid 1.8 (0.5-2.0) mmol/L Calcium (8.4-10.2) mg/dL Magnesium 1.6 (1.6-2.6) mg/dL Total Bilirubin (0.0-1.0) mg/dL AST (5-31) U/L ALT (0-31) U/L Alkaline Phosphatase (39-117) U/L Total Protein (6.5-8.0) g/dL Albumin (3.5-5.0) g/dL Urine Color Urine Appearance Urine pH (5.0-9.0) Ur Specific [place] (1.005-1.025) Urine Protein (Neg-Trace) mg/dL Urine Glucose (UA) (Negative) mg/dL Urine Ketones (Negative) mg/dL Urine Blood (Negative) Urine Nitrite (Negative) Ur Leukocyte Esterase (Negative) Urine RBC (0-2) /HPF Urine WBC (0-5) /HPF Ur Squamous Epith Cells (0-2) /HPF Urine Bacteria (None Seen) Hyaline Casts (0-2) /LPF Urine Test (NEGATIVE) Salicylates (15-30) mg/dL Urine Opiates Screen (Not Detect) Ur Buprenorphine Scrn (Not Detect) ng/mL Ur Oxycodone Screen (Not Detect) ng/mL Urine Methadone Screen (Not Detect) ng/mL Urine Fentanyl Screen (Not Detect) Acetaminophen (<30) mcg/mL Ur Barbiturates Screen (Not Detect) Ur Phencyclidine Scrn (Not Detect) Ur Amphetamines Screen (Not Detect) U Benzodiazepines Scrn (Not Detect) Urine Cocaine Screen (Not Detect) U Marijuana (THC) Screen (Not Detect) Ethyl Alcohol mg/dL COVID-19 (JARRETT) (Negative) COVID-19 Clin Com 07/17/24 07/17/24 Range/Units 20:36 22:10 WBC (4.8-10.8) X10*3/uL RBC (4.20-5.50) X10*6/uL Hgb (12.0-16.0) g/dl Hct (37.0-47.0) % MCV (80.0-98.0) fL MCH (27.0-33.0) pg MCHC (31.0-35.0) g/dl RDW (11.0-16.0) % Plt Count (160-400) X10*3/uL MPV (9.4-12.3) fL Immature Gran % (Auto) (0.0-0.4) % Neut % (Auto) (45-73) % Lymph % (Auto) (20-40) % [place] % (Auto) (2-11) % Eos % (Auto) (0-4) % Baso % (Auto) (0-2) % Lymph # (Auto) (1.2-4.9) X10*3/uL [place] # (Auto) (0.1-1.2) X10*3/uL Eos # (Auto) (0.0-0.4) X10*3/uL Baso # (Auto) (0.0-0.2) X10*3/uL Abs Immat Gran (auto) (0.00-0.03) X10*3/uL Absolute Neuts (auto) (2.0-8.3) x10*3/uL Absolute Nucleated RBC (0.0-0.012) X10*3/uL Nucleated RBC % (auto) (0.0-0.2) /100WBC Smear Tech's Comments VBG pH (7.32-7.43) VBG pCO2 mmHg VBG pO2 mmHg VBG HCO3 (22-26) mmol/L VBG O2 Saturation % VBG Base Excess mmol/L Sodium (135-145) mmol/L Potassium (3.3-5.1) mmol/L Chloride (96-108) mmol/L Carbon Dioxide (22-29) mmol/L Anion Gap (12-20) BUN (9-16) mg/dL Creatinine (0.5-1.4) mg/dL Estim Creat Clear Calc Estimated GFR POC Glucose 232 H (60-115) mg/dL Random Glucose (60-115) mg/dL Lactic Acid 1.8 (0.5-2.0) mmol/L Calcium (8.4-10.2) mg/dL Magnesium (1.6-2.6) mg/dL Total Bilirubin (0.0-1.0) mg/dL AST (5-31) U/L ALT (0-31) U/L Alkaline Phosphatase (39-117) U/L Total Protein (6.5-8.0) g/dL Albumin (3.5-5.0) g/dL Urine Color Urine Appearance Urine pH (5.0-9.0) Ur Specific [place] (1.005-1.025) Urine Protein (Neg-Trace) mg/dL Urine Glucose (UA) (Negative) mg/dL Urine Ketones (Negative) mg/dL Urine Blood (Negative) Urine Nitrite (Negative) Ur Leukocyte Esterase (Negative) Urine RBC (0-2) /HPF Urine WBC (0-5) /HPF Ur Squamous Epith Cells (0-2) /HPF Urine Bacteria (None Seen) Hyaline Casts (0-2) /LPF Urine Test (NEGATIVE) Salicylates (15-30) mg/dL Urine Opiates Screen (Not Detect) Ur Buprenorphine Scrn (Not Detect) ng/mL Ur Oxycodone Screen (Not Detect) ng/mL Urine Methadone Screen (Not Detect) ng/mL Urine Fentanyl Screen (Not Detect) Acetaminophen (<30) mcg/mL Ur Barbiturates Screen (Not Detect) Ur Phencyclidine Scrn (Not Detect) Ur Amphetamines Screen (Not Detect) U Benzodiazepines Scrn (Not Detect) Urine Cocaine Screen (Not Detect) U Marijuana (THC) Screen (Not Detect) Ethyl Alcohol mg/dL COVID-19 (JARRETT) (Negative) COVID-19 Clin Com External Record Review External record reviewed: Inpatient record Social Determinants Patient?s care significantly limited by Social Determinants of Health including: Alcoholism and drug addiction in family, Problems related to primary support group and Unemployment Discharge Plan Discharge Clinical Impression: Depression, Substance abuse Prescriptions: No Action famotidine 10 mg Tablet 10 mg PO BID insulin glargine [Lantus Solostar U-100 Insulin] 100 unit/mL (3 mL) insulin pen 25 unit subcut BEDTIME atorvastatin 40 mg tablet 1 tab PO DAILY losartan 100 mg tablet 100 mg PO DAILY cholecalciferol (vitamin D3) [Vitamin D3] 25 mcg (1,000 unit) capsule 1 cap PO DAILY albuterol sulfate [Ventolin HFA] 90 mcg/actuation Hfa Aerosol Inhaler 2 puff inhalation RQ4H PRN (Reason: wheezing) Qty: 0 0RF metformin 500 mg tablet extended release 24 hr 1,000 mg PO BID aripiprazole [Abilify] 5 mg Tablet 5 mg PO DAILY Qty: 14 0RF acetaminophen 325 mg tablet 650 mg PO Q4H PRN (Reason: pain) amlodipine 2.5 mg tablet 2.5 mg PO DAILY levothyroxine 25 mcg tablet 25 mcg PO DAILY@0600 lidocaine 5 % adhesive patch,medicated 1 patch topical BID PRN (Reason: pain) insulin lispro 100 unit/mL insulin pen 8 - 16 sliding scale dose subcut TIDAC Protocol: Insulin Correction Scale Less than or equal to 110 ---- Give (units): 0 111 to 150 Give (units): 8 151 to 200 Give (units): 10 201 to 250 Give (units): 12 251 to 300 Give (units): 14 301 to 350 Give (units): 16 Greater than 350 Give (units): 0 Call MD if Blood Glucose > : 350 epinephrine 0.3 mg/0.3 mL auto-injector 0.3 mg IM DIRECTED doxepin 25 mg capsule 25 mg PO BEDTIME (DME) AeroEclipse II Nebulizer Misc See Rx Instructions .ROUTE .MEDSUPPLY Qty: 1 Rx Instructions: As directed (DME) lancets [FreeStyle Lancets] 28 gauge misc See Rx Instructions .ROUTE .MEDSUPPLY Qty: 100 Rx Instructions: As directed (DME) FreeStyle Lite Strips Strip See Rx Instructions .ROUTE .MEDSUPPLY Qty: 10 Rx Instructions: As directed (DME) pen needle, diabetic [Comfort EZ Pen [place]] 32 gauge x 5/32 needle See Rx Instructions .ROUTE .MEDSUPPLY Qty: 50 Rx Instructions: As directed Eliquis 5 mg tablet 5 mg PO BID Interventions: [place]-Suicide Risk Severity Scale Last Done: 07/17/24 16:19 Print Language: Israeli
--- NOTE | 2024-07-17 18:22 | ECG_ITS ---
Test Reason : OVERDOSE Blood Pressure : / mmHG Vent. Rate : 078 BPM Atrial Rate : 078 BPM P-R Int : 148 ms QRS Dur : 102 ms QT Int : 420 ms P-R-T Axes : 010 001 021 degrees QTc Int : 478 ms Normal sinus rhythm Moderate voltage criteria for LVH, may be normal variant ( R in aVL , Conner product ) Nonspecific ST abnormality Abnormal ECG When compared with ECG of 19-JUN-2024 01:36, No significant change was found Referred By: Shelby Winkler Electronically Signed By:LISA NELSON MD
[2024-07-17 18:25] LABS: Bacteria Urine 3+ (None Seen); Hyaline Casts Urine 0-2 /LPF (0-2); RBC Urine 0-2 /HPF (0-2); UACC Culture Trigger YES; WBC Urine >50 /HPF (0-5)
[2024-07-17] MEDS: 0.9 % Sodium Chloride 1,000 ML 999 ML IV ×2 (18:29→19:36)
--- NOTE | 2024-07-17 18:30 | PC.NURSE ---
Patient awake and alert. skin pwd, resp even and non labored. speaking in full, clear sentences. medicated as ordered for hyerglycemia. IV established and IV fluids started per order. 1:1 sitter at bedside while patient has IV. patient denies SI at this time. patient states she wants to eat, patient made aware that per Dr. Winkler she may only have diet gingerale until her sugar is below 300. patient refused EKG, physician aware
[2024-07-17] MEDS: LORazepam 1 MG TABLET PO (19:00)
[2024-07-17 19:26] LABS: Glucose, Whole Blood 423 mg/dL (60-115)
[2024-07-17 19:55] LABS: Lactic Acid 1.8 mmol/L (0.5-2.0)
[2024-07-17 19:56] LABS: Magnesium 1.6 mg/dL (1.6-2.6)
[2024-07-17] MEDS: Insulin Regular, Human 100 UNIT/ML 10 ML VIAL 10 UNIT IVPUSH (19:57)
[2024-07-17 20:40] LABS: Glucose, Whole Blood 232 mg/dL (60-115)
--- NOTE | 2024-07-17 21:54 | PC.NURSE ---
poison control called and was given updates on patients mag and lactic acid levels. MD aware of updates and was notified pts med rec was complete.
[2024-07-17 22:35] LABS: Lactic Acid 1.8 mmol/L (0.5-2.0)
--- NOTE | 2024-07-18 02:23 | PC.NURSE ---
Poison controlled called back, updated on results, no new suggestions at this time. Ran from care team made aware.
[2024-07-18 05:27] VITALS: BP 158/92; PULSE 80; RESP 16; TEMP 36.5; O2SAT 97
[2024-07-18 07:02] LABS: Glucose, Whole Blood 314 mg/dL (60-115)
--- NOTE | 2024-07-18 07:24 | PHA.MEDREC ---
Pharmacy Consult ? Medication Reconciliation Pharmacy has completed the medication reconciliation. Reviewed med rec done by nursing
--- NOTE | 2024-07-18 07:27 | PC.NURSE ---
Assumed care of patient at 0645, patient appears to be in no apparent distress this am, ambulating around BH pod. Pt reports that she has a vaginal yeast infection that has not been treated and she is concerned about it. Medications also not ordered, med rec verified by this RN. DO aware of both infection and medications needing to be ordered at this time
[2024-07-18 07:28] VITALS: RESP 16
[2024-07-18 08:04] VITALS: BP 173/85; PULSE 75; RESP 18; TEMP 36.7; O2SAT 99
[2024-07-18] MEDS: Apixaban 5 MG TABLET PO ×2 (08:04→20:18)
[2024-07-18] MEDS: Insulin Lispro 100 UNIT/ML 3 ML VIAL SUBCUT ×4 (08:04→20:18)
[2024-07-18] MEDS: Atorvastatin Calcium 40 MG TABLET PO (08:04)
[2024-07-18] MEDS: Cholecalciferol (Vitamin D3) 25 MCG TABLET PO (08:04)
[2024-07-18] MEDS: Levothyroxine Sodium 25 MCG TABLET PO (08:04)
[2024-07-18] MEDS: Famotidine 20 MG TABLET 10 MG PO ×2 (08:04→20:16)
[2024-07-18] MEDS: Losartan Potassium 50 MG TABLET 100 MG PO (08:04)
[2024-07-18] MEDS: amLODIPine Besylate 2.5 MG TABLET PO (08:04)
[2024-07-18] MEDS: metFORMIN HCl ER 500 MG TAB.ER.24H 1000 MG PO ×2 (08:04→20:15)
[2024-07-18] MEDS: ARIPiprazole 5 MG TABLET PO (08:04)
[2024-07-18 12:39] LABS: Glucose, Whole Blood 380 mg/dL (60-115)
[2024-07-18 12:56] VITALS: BP 164/83; PULSE 85; RESP 18; TEMP 36.8; O2SAT 97
[2024-07-18 13:06] VITALS: BMI 27.7
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
[2024-07-18 16:58] LABS: Glucose, Whole Blood 478 mg/dL (60-115)
[2024-07-18 17:03] LABS: CT PCR NOT DETECTED (Not Detect.); NG PCR NOT DETECTED (Not Detect.)
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
[2024-07-18] MEDS: LORazepam 0.5 MG TABLET PO (19:25)
[2024-07-18 20:00] VITALS: BP 151/107; PULSE 97; RESP 16; TEMP 36.6; O2SAT 98
[2024-07-18 20:03] LABS: Glucose, Whole Blood 216 mg/dL (60-115)
[2024-07-18] MEDS: Cyclobenzaprine HCl 10 MG TABLET PO (20:16)
[2024-07-18] MEDS: cefuroxime axetiL 250 MG TABLET PO (20:17)
[2024-07-18] MEDS: Doxepin HCl 25 MG CAPSULE PO (20:18)
[2024-07-18] MEDS: Insulin Glargine,Hum.rec.anlog 100 UNIT/ML 10 ML VIAL 25 UNIT SUBCUT (20:19)
[2024-07-18] MEDS: Acetaminophen 325 MG TABLET 650 MG PO (20:28)
[2024-07-19] MEDS: Levothyroxine Sodium 25 MCG TABLET PO (06:24)
[2024-07-19 07:38] VITALS: BP 187/104; PULSE 74; RESP 14; TEMP 36.8; O2SAT 99
--- NOTE | 2024-07-19 07:49 | PC.NURSE ---
Callum Acosta MD made aware of no further recommendations.
[2024-07-19 08:08] LABS: Glucose, Whole Blood 184 mg/dL (60-115)
[2024-07-19] MEDS: Losartan Potassium 50 MG TABLET 100 MG PO (08:34)
[2024-07-19] MEDS: cefuroxime axetiL 250 MG TABLET PO ×2 (08:34→20:32)
[2024-07-19] MEDS: Famotidine 20 MG TABLET 10 MG PO ×2 (08:35→20:30)
[2024-07-19] MEDS: ARIPiprazole 5 MG TABLET PO (08:35)
[2024-07-19] MEDS: amLODIPine Besylate 2.5 MG TABLET PO (08:36)
[2024-07-19] MEDS: Apixaban 5 MG TABLET PO ×2 (08:36→20:32)
[2024-07-19] MEDS: LORazepam 0.5 MG TABLET PO ×2 (08:36→20:33)
[2024-07-19] MEDS: Atorvastatin Calcium 40 MG TABLET PO (08:36)
[2024-07-19] MEDS: metFORMIN HCl ER 500 MG TAB.ER.24H 1000 MG PO ×2 (08:37→20:33)
[2024-07-19] MEDS: Cholecalciferol (Vitamin D3) 25 MCG TABLET PO (08:37)
[2024-07-19] MEDS: Acetaminophen 325 MG TABLET 650 MG PO ×3 (08:37→20:31)
[2024-07-19] MEDS: Insulin Lispro 100 UNIT/ML 3 ML VIAL SUBCUT ×3 (09:16→20:34)
[2024-07-19 09:38] LABS: Alanine Aminotransferase 19 U/L (0-31); Albumin Level 3.4 g/dL (3.5-5.0); Alkaline Phosphatase 109 U/L (39-117); Anion Gap 16 (12-20); Aspartate Amino Transferase 20 U/L (5-31); Bilirubin Total 0.2 mg/dL (0.0-1.0); Blood Urea Nitrogen 16 mg/dL (9-16); Calcium 10.1 mg/dL (8.4-10.2); Carbon Dioxide 19 mmol/L (22-29); Chloride 106 mmol/L (96-108); Cholesterol 199 mg/dL (<200); Creatinine Clr Calc Pharmacy 59.2; Estimated Glomerular Filt Rate 57; Glucose Fasting 262 mg/dL (60-99); HDL Cholesterol 70 mg/dL (>40); LDL Cholesterol Calculated 94 mg/dL (<100); Potassium 3.8 mmol/L (3.3-5.1); Sodium 137 mmol/L (135-145); Total Protein 7.2 g/dL (6.5-8.0); Triglycerides 178 mg/dL (<150)
[2024-07-19 09:50] VITALS: BP 156/80; PULSE 81; RESP 18; TEMP 36.4; O2SAT 100
--- NOTE | 2024-07-19 10:16 | ECG_ITS ---
Test Reason : CHEST PAIN Blood Pressure : / mmHG Vent. Rate : 075 BPM Atrial Rate : 075 BPM P-R Int : 152 ms QRS Dur : 102 ms QT Int : 400 ms P-R-T Axes : 030 001 015 degrees QTc Int : 446 ms Normal sinus rhythm Voltage criteria for left ventricular hypertrophy ( R in aVL , Sokolow-Ivan , [place] product ) Nonspecific ST abnormality Abnormal ECG When compared with ECG of 17-JUL-2024 22:11, No significant change was found Referred By: Loren Robbins Electronically Signed By:LISA NELSON MD
--- NOTE | 2024-07-19 10:21 | P.EN_ITS ---
Event Note Date of Service: 07/19/24 Event Note: pt with L upper chest pain x20 mins. worse with inspiration. stabbling 9/10 pain. associated nausea. hx of PE, feels similar. PE: const: A+Ox3, NAD resp: CTA bilat cardio: +murmur, RRR A/P: L upper chest pain with hx of DVT/PE. Ddx: PE (although unlikely due to e liquis), UT, GERD, costochondiritis - stat EKG, troponin, BMP, D-dimer and VQ scan due to contrast allergy - tylenol for pain - zofran PRN for nausea will continue to follow. Time Spent With Patient Time: Total time managing care of this patient today 15 minutes.
[2024-07-19 11:15] LABS: D Dimer High Sensitivity 233 NG/ML
--- NOTE | 2024-07-19 11:16 | MHC.CLN ---
NUTRITION CONSULT FOR REPORTED 30# WEIGHT LOSS X 2 MONTHS. REVIEW OF EMR SHOWS WEIGHT 05/28/24=77.1 KG. WEIGHT LOSS OF 18#, 10.9% X 2 MONTHS. WEIGHT STABLE FROM 06/21/24 TO 07/18/24. POOR APPETITE REPORTED DUE TO DEPRESSION. POSSIBLE CONTRIBUTOR TO WEIGHT LOSS IS POORLY CONTROLLED BLOOD GLUCOSE. POC NOTED 07/17/24=535; 06/13/24=>600; A1c 06/15/24=12.1 SHOWING POOR BG CONTROL. NO ADDITIONAL NUTRITION INTERVENTIONS AT THIS TIME. CONTINUE TO MONITOR BLOOD GLUCOSE AND MEAL INTAKE.
[2024-07-19 11:33] LABS: Troponin-I High Sensitivity 20.1 ng/L (<3.5-17.0)
--- NOTE | 2024-07-19 12:07 | P.PNPSI_ITS ---
Subjective Subjective Date of Service: 07/19/24 Reason For Visit: crisis Subjective Notes: Conditional Voluntary Interim History: Keeping to self. patient reports increased anxiety and depression. C/o chest pain and vaginal discharge this morning; pt was seen by hospitalist, (please see note). Denies SI/HI/VH/AH. Medication Compliance: Yes Side effects from medications: No Review of Systems Constitutional: Reports as per HPI Eyes: Reports as per HPI Reports as per HPI Cardiovascular: Reports as per HPI Respiratory: Reports as per HPI Gastrointestinal: Reports as per HPI Musculoskeletal: Reports as per HPI Skin/Breast: Reports as per HPI Reports as per HPI Psychiatric: Reports as per HPI Endocrine: Reports as per HPI Hematologic/Lymphatic: Reports as per HPI Allergic/Immunologic: Reports as per HPI Mental Status Exam Mental Status Exam Narrative: Pt is alert and oriented; behavior is cooperative; dressed in casual attire; mood is described as depressed and anxious ; eye contact appropriate; Speech is normal rate, volume and not pressured; thought process is organized and goal directed; Thought content is on tx; otherwise pertinent to relevant topics and without any delusional content, paranoid ideations or grandiosity; denies SI/HI/VH/AH. Diagnostics Vital Signs (24Hr): Vital Signs - 24 hr 07/18/24 12:56 07/18/24 20:00 07/19/24 07:38 Temperature 98.2 F 97.9 F 98.3 F Pulse Rate 85 97 74 Respiratory Rate 18 16 14 Blood Pressure 164/83 H 151/107 H 187/104 H Pulse Oximetry 97 98 99 Oxygen Delivery Method Room Air Room Air Room Air 07/19/24 09:50 Temperature 97.5 F Pulse Rate 81 Respiratory Rate 18 Blood Pressure 156/80 H Pulse Oximetry 100 Oxygen Delivery Method Room Air BMI result Body Mass Index 27.7 Labs 07/17/24 16:45 07/19/24 08:57 Labs: Laboratory Results - last 48 hr 07/17/24 07/17/24 07/17/24 15:36 15:57 16:45 WBC 9.8 RBC 5.02 Hgb 14.8 Hct 42.1 MCV 83.9 MCH 29.5 MCHC 35.2 H RDW 12.6 Plt Count 229 MPV 10.7 Immature Gran % (Auto) 0.5 H Neut % (Auto) 74.8 H Lymph % (Auto) 18.3 L [place] % (Auto) 4.1 Eos % (Auto) 1.7 Baso % (Auto) 0.6 Lymph # (Auto) 1.8 [place] # (Auto) 0.4 Eos # (Auto) 0.2 Baso # (Auto) 0.1 Abs Immat Gran (auto) 0.05 H Absolute Neuts (auto) 7.3 Absolute Nucleated RBC 0.000 Nucleated RBC % (auto) 0.0 Smear Tech's Comments VERIFIED D-Dimer High Sensitivty VBG pH VBG pCO2 VBG pO2 VBG HCO3 VBG O2 Saturation VBG Base Excess Sodium 132 L Potassium 4.0 D Chloride 100 Carbon Dioxide 22 Anion Gap 14 BUN 10 Creatinine 0.84 Estim Creat Clear Calc 71.6 Estimated GFR > 60 POC Glucose 535 H* Random Glucose 565 H* Fasting Glucose Lactic Acid Calcium 8.9 Magnesium Total Bilirubin 0.3 AST 20 ALT 24 Alkaline Phosphatase 125 H Troponin I High Sens Total Protein 7.4 Albumin 3.8 Triglycerides Cholesterol LDL Cholesterol, Calc HDL Cholesterol Urine Color Yellow Urine Appearance Clear Urine pH 6.5 Ur Specific [place] >= 1.030 H Urine Protein Negative Urine Glucose (UA) >=1000 H Urine Ketones Negative Urine Blood Trace H Urine Nitrite Negative Ur Leukocyte Esterase Moderate (2+) H Urine RBC 0-2 Urine WBC >50 H Ur Squamous Epith Cells 6-10 Urine Bacteria 3+ Hyaline Casts 0-2 Urine Test NEGATIVE Salicylates < 5.0 L Urine Opiates Screen Not Detected Ur Buprenorphine Scrn Not Detected Ur Oxycodone Screen Not Detected Urine Methadone Screen Not Detected Urine Fentanyl Screen Not Detected Acetaminophen < 3 Ur Barbiturates Screen Not Detected Ur Phencyclidine Scrn Not Detected Ur Amphetamines Screen Not Detected U Benzodiazepines Scrn Not Detected Urine Cocaine Screen POSITIVE H U Marijuana (THC) Screen Not Detected Ethyl Alcohol < 10 Chlam trachomat DNA PCR COVID-19 (JARRETT) Negative COVID-19 Clin Com See Note N.[email or web address] DNA (PCR) 07/17/24 07/17/24 07/17/24 16:50 19:22 19:34 WBC RBC Hgb Hct MCV MCH MCHC RDW Plt Count MPV Immature Gran % (Auto) Neut % (Auto) Lymph % (Auto) [place] % (Auto) Eos % (Auto) Baso % (Auto) Lymph # (Auto) [place] # (Auto) Eos # (Auto) Baso # (Auto) Abs Immat Gran (auto) Absolute Neuts (auto) Absolute Nucleated RBC Nucleated RBC % (auto) Smear Tech's Comments D-Dimer High Sensitivty VBG pH 7.40 VBG pCO2 42 VBG pO2 40 VBG HCO3 26 VBG O2 Saturation 61.0 VBG Base Excess 1.6 Sodium Potassium Chloride Carbon Dioxide Anion Gap BUN Creatinine Estim Creat Clear Calc Estimated GFR POC Glucose 423 H* Random Glucose Fasting Glucose Lactic Acid 1.8 Calcium Magnesium 1.6 Total Bilirubin AST ALT Alkaline Phosphatase Troponin I High Sens Total Protein Albumin Triglycerides Cholesterol LDL Cholesterol, Calc HDL Cholesterol Urine Color Urine Appearance Urine pH Ur Specific [place] Urine Protein Urine Glucose (UA) Urine Ketones Urine Blood Urine Nitrite Ur Leukocyte Esterase Urine RBC Urine WBC Ur Squamous Epith Cells Urine Bacteria Hyaline Casts Urine Test Salicylates Urine Opiates Screen Ur Buprenorphine Scrn Ur Oxycodone Screen Urine Methadone Screen Urine Fentanyl Screen Acetaminophen Ur Barbiturates Screen Ur Phencyclidine Scrn Ur Amphetamines Screen U Benzodiazepines Scrn Urine Cocaine Screen U Marijuana (THC) Screen Ethyl Alcohol Chlam trachomat DNA PCR COVID-19 ([facility]RETT) COVID-19 Clin Com N.[email or web address] DNA (PCR) 07/17/24 07/17/24 07/18/24 20:36 22:10 06:59 WBC RBC Hgb Hct MCV MCH MCHC RDW Plt Count MPV Immature Gran % (Auto) Neut % (Auto) Lymph % (Auto) [place] % (Auto) Eos % (Auto) Baso % (Auto) Lymph # (Auto) [place] # (Auto) Eos # (Auto) Baso # (Auto) Abs Immat Gran (auto) Absolute Neuts (auto) Absolute Nucleated RBC Nucleated RBC % (auto) Smear Tech's Comments D-Dimer High Sensitivty VBG pH VBG pCO2 VBG pO2 VBG HCO3 VBG O2 Saturation VBG Base Excess Sodium Potassium Chloride Carbon Dioxide Anion Gap BUN Creatinine Estim Creat Clear Calc Estimated GFR POC Glucose 232 H 314 H Random Glucose Fasting Glucose Lactic Acid 1.8 Calcium Magnesium Total Bilirubin AST ALT Alkaline Phosphatase Troponin I High Sens Total Protein Albumin Triglycerides Cholesterol LDL Cholesterol, Calc HDL Cholesterol Urine Color Urine Appearance Urine pH Ur Specific [place] Urine Protein Urine Glucose (UA) Urine Ketones Urine Blood Urine Nitrite Ur Leukocyte Esterase Urine RBC Urine WBC Ur Squamous Epith Cells Urine Bacteria Hyaline Casts Urine Test Salicylates Urine Opiates Screen Ur Buprenorphine Scrn Ur Oxycodone Screen Urine Methadone Screen Urine Fentanyl Screen Acetaminophen Ur Barbiturates Screen Ur Phencyclidine Scrn Ur Amphetamines Screen U Benzodiazepines Scrn Urine Cocaine Screen U Marijuana (THC) Screen Ethyl Alcohol Chlam trachomat DNA PCR COVID-19 ([facility]RETT) COVID-19 Clin Com N.[email or web address] DNA (PCR) 07/18/24 07/18/24 07/18/24 12:37 13:07 16:53 WBC RBC Hgb Hct MCV MCH MCHC RDW Plt Count MPV Immature Gran % (Auto) Neut % (Auto) Lymph % (Auto) [place] % (Auto) Eos % (Auto) Baso % (Auto) Lymph # (Auto) [place] # (Auto) Eos # (Auto) Baso # (Auto) Abs Immat Gran (auto) Absolute Neuts (auto) Absolute Nucleated RBC Nucleated RBC % (auto) Smear Tech's Comments D-Dimer High Sensitivty VBG pH VBG pCO2 VBG pO2 VBG HCO3 VBG O2 Saturation VBG Base Excess Sodium Potassium Chloride Carbon Dioxide Anion Gap BUN Creatinine Estim Creat Clear Calc Estimated GFR POC Glucose 380 H* 478 H* Random Glucose Fasting Glucose Lactic Acid Calcium Magnesium Total Bilirubin AST ALT Alkaline Phosphatase Troponin I High Sens Total Protein Albumin Triglycerides Cholesterol LDL Cholesterol, Calc HDL Cholesterol Urine Color Urine Appearance Urine pH Ur Specific [place] Urine Protein Urine Glucose (UA) Urine Ketones Urine Blood Urine Nitrite Ur Leukocyte Esterase Urine RBC Urine WBC Ur Squamous Epith Cells Urine Bacteria Hyaline Casts Urine Test Salicylates Urine Opiates Screen Ur Buprenorphine Scrn Ur Oxycodone Screen Urine Methadone Screen Urine Fentanyl Screen Acetaminophen Ur Barbiturates Screen Ur Phencyclidine Scrn Ur Amphetamines Screen U Benzodiazepines Scrn Urine Cocaine Screen U Marijuana (THC) Screen Ethyl Alcohol Chlam trachomat DNA PCR NOT DETECTED COVID-19 ([facility]RETT) COVID-19 Clin Com N.[email or web address] DNA (PCR) NOT DETECTED 07/18/24 07/19/24 07/19/24 19:58 07:59 08:57 WBC RBC Hgb Hct MCV MCH MCHC RDW Plt Count MPV Immature Gran % (Auto) Neut % (Auto) Lymph % (Auto) [place] % (Auto) Eos % (Auto) Baso % (Auto) Lymph # (Auto) [place] # (Auto) Eos # (Auto) Baso # (Auto) Abs Immat Gran (auto) Absolute Neuts (auto) Absolute Nucleated RBC Nucleated RBC % (auto) Smear Tech's Comments D-Dimer High Sensitivty VBG pH VBG pCO2 VBG pO2 VBG HCO3 VBG O2 Saturation VBG Base Excess Sodium 137 Potassium 3.8 Chloride 106 Carbon Dioxide 19 L Anion Gap 16 BUN 16 Creatinine 1.02 Estim Creat Clear Calc 59.2 Estimated GFR 57 POC Glucose 216 H 184 H Random Glucose Fasting Glucose 262 H Lactic Acid Calcium 10.1 D Magnesium Total Bilirubin 0.2 AST 20 ALT 19 Alkaline Phosphatase 109 Troponin I High Sens Total Protein 7.2 Albumin 3.4 L Triglycerides 178 H Cholesterol 199 LDL Cholesterol, Calc 94 HDL Cholesterol 70 Urine Color Urine Appearance Urine pH Ur Specific [place] Urine Protein Urine Glucose (UA) Urine Ketones Urine Blood Urine Nitrite Ur Leukocyte Esterase Urine RBC Urine WBC Ur Squamous Epith Cells Urine Bacteria Hyaline Casts Urine Test Salicylates Urine Opiates Screen Ur Buprenorphine Scrn Ur Oxycodone Screen Urine Methadone Screen Urine Fentanyl Screen Acetaminophen Ur Barbiturates Screen Ur Phencyclidine Scrn Ur Amphetamines Screen U Benzodiazepines Scrn Urine Cocaine Screen U Marijuana (THC) Screen Ethyl Alcohol Chlam trachomat DNA PCR COVID-19 ([facility]RE[facility]) COVID-19 Clin Com N.[email or web address] DNA (PCR) 07/19/24 10:52 WBC RBC Hgb Hct MCV MCH MCHC RDW Plt Count MPV Immature Gran % (Auto) Neut % (Auto) Lymph % (Auto) [place] % (Auto) Eos % (Auto) Baso % (Auto) Lymph # (Auto) [place] # (Auto) Eos # (Auto) Baso # (Auto) Abs Immat Gran (auto) Absolute Neuts (auto) Absolute Nucleated RBC Nucleated RBC % (auto) Smear Tech's Comments D-Dimer High Sensitivty 233 VBG pH VBG pCO2 VBG pO2 VBG HCO3 VBG O2 Saturation VBG Base Excess Sodium Potassium Chloride Carbon Dioxide Anion Gap BUN Creatinine Estim Creat Clear Calc Estimated GFR POC Glucose Random Glucose Fasting Glucose Lactic Acid Calcium Magnesium Total Bilirubin AST ALT Alkaline Phosphatase Troponin I High Sens 20.1 H D Total Protein Albumin Triglycerides Cholesterol LDL Cholesterol, Calc HDL Cholesterol Urine Color Urine Appearance Urine pH Ur Specific [place] Urine Protein Urine Glucose (UA) Urine Ketones Urine Blood Urine Nitrite Ur Leukocyte Esterase Urine RBC Urine WBC Ur Squamous Epith Cells Urine Bacteria Hyaline Casts Urine Test Salicylates Urine Opiates Screen Ur Buprenorphine Scrn Ur Oxycodone Screen Urine Methadone Screen Urine Fentanyl Screen Acetaminophen Ur Barbiturates Screen Ur Phencyclidine Scrn Ur Amphetamines Screen U Benzodiazepines Scrn Urine Cocaine Screen U Marijuana (THC) Screen Ethyl Alcohol Chlam trachomat DNA PCR COVID-19 ([facility]RETT) COVID-19 Clin Com N.gonorrhoeae DNA (PCR) Medications Medications Current Medications Acetaminophen (Acetaminophen 325 Mg Tablet) 650 mg PO Q6H PRN PRN Reason: Headache/Pain Mild Scale (1-3) Last Admin: 07/19/24 08:37 Dose: 650 mg Al Hydroxide/Mg Hydroxide (Magnesium Hydrox/Alum Hydrox 30 Ml Oral.Susp) 30 ml PO Q6H PRN PRN Reason: Heartburn/Nausea Albuterol Sulfate (Albuterol Sulfate 90 Mcg 8 Gm Inhaler) 2 puff INHALE RQ4H PRN PRN Reason: wheezing Amlodipine Besylate (Amlodipine Besylate 2.5 Mg Tablet) 2.5 mg PO DAILY [facility]; Protocol Last Admin: 07/19/24 08:36 Dose: 2.5 mg Apixaban (Apixaban 5 Mg Tablet) 5 mg PO BID [facility] Last Admin: 07/19/24 08:36 Dose: 5 mg Aripiprazole (Aripiprazole 5 Mg Tablet) 5 mg PO DAILY [facility] Last Admin: 07/19/24 08:35 Dose: 5 mg Atorvastatin Calcium (Atorvastatin Calcium 40 Mg Tablet) 40 mg PO DAILY [facility] Last Admin: 07/19/24 08:36 Dose: 40 mg Cefuroxime Axetil (Cefuroxime Axetil 250 Mg Tablet) 250 mg PO BID [facility] Stop: 07/25/24 09:01 Last Admin: 07/19/24 08:34 Dose: 250 mg Cyclobenzaprine HCl (Cyclobenzaprine Hcl 10 Mg Tablet) 10 mg PO BEDTIME PRN PRN Reason: muscle spasm Last Admin: 07/18/24 20:16 Dose: 10 mg Doxepin HCl (Doxepin Hcl 25 Mg Capsule) 25 mg PO BEDTIME [facility] Last Admin: 07/18/24 20:18 Dose: 25 mg Famotidine (Famotidine 20 Mg Tablet) 10 mg PO BID [facility] Last Admin: 07/19/24 08:35 Dose: 10 mg Glucose (Glucose Gel 15 Gm Gel..Gram.) 15 gm PO Q15M PRN; Protocol PRN Reason: per Hypoglycemia Standing Ord. Hydroxyzine HCl (Hydroxyzine Hcl 25 Mg Tablet) 25 mg PO Q6H PRN PRN Reason: Anxiety Insulin Glargine (Insulin Glargine,Hum.Rec.Anlog 100 Unit/Ml 10 Ml Vial) 25 unit SUBCUT BEDTIME [facility] Last Admin: 07/18/24 20:19 Dose: 25 unit Insulin Human Lispro (Insulin Lispro 100 Unit/Ml 3 Ml Vial) 0 unit SUBCUT QIDACHS [facility]; Protocol Last Admin: 07/19/24 09:16 Dose: 2 unit Levothyroxine Sodium (Levothyroxine Sodium 25 Mcg Tablet) 25 mcg PO DAILY@0600 [facility] Last Admin: 07/19/24 06:24 Dose: 25 mcg Lorazepam (Lorazepam 0.5 Mg Tablet) 0.5 mg PO BID PRN PRN Reason: Anxiety Last Admin: 07/19/24 08:36 Dose: 0.5 mg Losartan Potassium (Losartan Potassium 50 Mg Tablet) 100 mg PO DAILY [facility]; Protocol Last Admin: 07/19/24 08:34 Dose: 100 mg Magnesium Hydroxide (Milk Of Magnesia 30 Ml Oral.Susp) 30 ml PO DAILY PRN PRN Reason: Constipation Metformin HCl (Metformin Hcl Er 500 Mg Tab.Er.24h) 1,000 mg PO BID [facility] Last Admin: 07/19/24 08:37 Dose: 1,000 mg Nicotine (Nicotine 21 Mg Patch.Td24) 21 mg TRANSDERMA DAILY [facility] Last Admin: 07/19/24 08:55 Dose: Not Given Nicotine Polacrilex (Nicotine Polacrilex 2 Mg Gum) 4 mg BUCCAL Q2H PRN PRN Reason: Nicotine Cravings Trazodone HCl (Trazodone Hcl 50 Mg Tablet) 50 mg PO BEDTIME MRX1 PRN PRN Reason: Insomnia Vitamin D (Cholecalciferol (Vitamin D3) 25 Mcg Tablet) 25 mcg PO DAILY [facility] Last Admin: 07/19/24 08:37 Dose: 25 mcg Allergies Allergies Allergy/AdvReac Type Severity Reaction Status Date / Time Iodinated Contrast Media Allergy Severe THROAT Verified 07/17/24 15:39 [IV CONTRAST] CLOSING lithium [LITHIUM] Allergy Intermediate AGGRESSION, Verified 07/17/24 15:39 stiffened up & throat closing (moderate to severe) fluoxetine [FLUOXETINE] Allergy Mild ITCHING, Verified 07/17/24 15:39 Suicidal risperidone [From RISPERDAL] Allergy Mild ITCHING Verified 07/17/24 15:39 asparagus [ASPARAGUS] Allergy Unknown unknown Verified 07/17/24 15:39 divalproex sodium Allergy Unknown UNKNOWN, Verified 07/17/24 15:39 [From DEPAKOTE] stiffened up, locked jaw lisinopril [LISINOPRIL] Allergy Unknown COUGH Verified 07/17/24 15:39 olanzapine Allergy Unknown can't Verified 07/17/24 15:39 recall if hives or increased pollen extracts [POLLEN] Allergy Unknown unknown Verified 07/17/24 15:39 tomato [TOMATO] Allergy Unknown UNKNOWN Verified 07/17/24 15:39 quetiapine [From SEROQUEL] AdvReac Intermediate OVERSEDATIO Verified 06/26/24 12:13 N BROCCOLI Allergy Unknown Unknown Uncoded 06/26/24 12:13 FUMARATE Allergy Unknown Unknown Uncoded 06/26/24 12:13 GREEN [place]G Allergy Unknown Unknown Uncoded 06/26/24 12:13 TOMATO Allergy Unknown Unknown Uncoded 06/26/24 12:13 Assessment & Plan Assessment & Plan (1) MDD (major depressive disorder), recurrent severe, without psychosis: Status: Acute Code(s): F33.2 - Major depressive disorder, recurrent severe without psychotic features (2) Post traumatic stress disorder (PTSD): Status: Acute Code(s): F43.10 - Post-traumatic stress disorder, unspecified (3) Cocaine use disorder: Status: Acute Code(s): F14.10 - Cocaine abuse, uncomplicated Plan Patient is a 53-year-old female with history of MDD, PTSD, cocaine use disorder who presented to [facility] via ambulance due to intentional overdose on prescription medications secondary to increased life stressors. Plan: CV 15 minute safety checks Continue home medications Encourage groups Referral to outpatient psychiatric providers Discharge planning 07/19: Keeping to self. patient reports increased anxiety and depression. C/o chest pain and vaginal discharge this morning; pt was seen by hospitalist, (please see note). Denies SI/HI/VH/AH. Patient educated on: diagnosis, medication risk/benefits and therapeutic strategies Reason for continued inpatient stay Substantial Risk for: med/psych decompensation Time Spent With Patient Time: Total time managing care of this patient today _20___ minutes.
[2024-07-19 12:28] LABS: Glucose, Whole Blood 329 mg/dL (60-115)
[2024-07-19 14:25] LABS: Troponin-I High Sensitivity 16.1 ng/L (<3.5-17.0)
[2024-07-19] MEDS: Cyclobenzaprine HCl 10 MG TABLET PO (14:33)
[2024-07-19 16:42] LABS: Glucose, Whole Blood 187 mg/dL (60-115)
[2024-07-19 20:20] VITALS: BP 162/83; PULSE 81; RESP 16; TEMP 36.7; O2SAT 98
[2024-07-19 20:23] LABS: Glucose, Whole Blood 264 mg/dL (60-115)
[2024-07-19] MEDS: Doxepin HCl 25 MG CAPSULE PO (20:33)
[2024-07-19] MEDS: Insulin Glargine,Hum.rec.anlog 100 UNIT/ML 10 ML VIAL 25 UNIT SUBCUT (20:34)
[2024-07-20] MEDS: Levothyroxine Sodium 25 MCG TABLET PO (06:18)
[2024-07-20 07:20] VITALS: BP 147/89; PULSE 79; RESP 18; TEMP 36.2; O2SAT 100
[2024-07-20 08:13] LABS: Glucose, Whole Blood 216 mg/dL (60-115)
[2024-07-20] MEDS: Insulin Lispro 100 UNIT/ML 3 ML VIAL SUBCUT ×4 (08:47→20:35)
[2024-07-20 08:48] VITALS: BP 147/89
[2024-07-20] MEDS: cefuroxime axetiL 250 MG TABLET PO ×2 (08:48→20:37)
[2024-07-20] MEDS: Losartan Potassium 50 MG TABLET 100 MG PO (08:48)
[2024-07-20] MEDS: Cholecalciferol (Vitamin D3) 25 MCG TABLET PO (08:49)
[2024-07-20] MEDS: ARIPiprazole 5 MG TABLET PO (08:49)
[2024-07-20] MEDS: metFORMIN HCl ER 500 MG TAB.ER.24H 1000 MG PO ×2 (08:49→20:37)
[2024-07-20] MEDS: Atorvastatin Calcium 40 MG TABLET PO (08:49)
[2024-07-20 08:50] VITALS: BP 147/89
[2024-07-20] MEDS: amLODIPine Besylate 2.5 MG TABLET PO (08:50)
[2024-07-20] MEDS: Famotidine 20 MG TABLET 10 MG PO ×2 (08:51→20:37)
[2024-07-20] MEDS: Apixaban 5 MG TABLET PO ×2 (08:51→20:36)
[2024-07-20] MEDS: Acetaminophen 325 MG TABLET 650 MG PO ×2 (09:56→20:36)
[2024-07-20] MEDS: LORazepam 0.5 MG TABLET PO ×2 (10:44→20:35)
[2024-07-20 12:01] LABS: Glucose, Whole Blood 397 mg/dL (60-115)
--- NOTE | 2024-07-20 13:18 | HO.PSYCHPN ---
Subjective Subjective Date of Service: 07/20/24 Reason For Visit: crisis Subjective Notes: Conditional Voluntary Interim History: Pt slept most of the night. She reports mood has improved. Aside from UTI seems also yeast infection- given one time dose of diflucan 150mg po. advised to wait 3 days to see if symptoms resolved otherwise can have additional dose q72 up to 3 doses. Later had episode of left side drooping, weakness- head CT ordered by hospitalist- negative for acute ischemia. MRI also completed, no ischemia or infarcts, also no signs of new MS flare up- no need for urgent neurology consult at this time. She denies SI/HI. looking forward to be dc soon. Review of Systems Review of Systems No fever no chills no chest pain Yes all other systems are reviewed and are negative Constitutional: Reports as per HPI Eyes: Reports as per HPI Reports as per HPI Cardiovascular: Reports as per HPI Respiratory: Reports as per HPI Gastrointestinal: Reports as per HPI Musculoskeletal: Reports as per HPI Skin/Breast: Reports as per HPI Reports as per HPI Psychiatric: Reports as per HPI Endocrine: Reports as per HPI Hematologic/Lymphatic: Reports as per HPI Allergic/Immunologic: Reports as per HPI Mental Status Exam Mental Status Exam Narrative: Pt is alert and oriented; behavior is cooperative; dressed in casual attire; mood is described as depressed and anxious ; eye contact appropriate; Speech is normal rate, volume and not pressured; thought process is organized and goal directed; Thought content is on tx; otherwise pertinent to relevant topics and without any delusional content, paranoid ideations or grandiosity; denies SI/HI/VH/AH. Diagnostics Vital Signs (24Hr): Vital Signs - 24 hr 07/19/24 20:20 07/20/24 07:20 07/20/24 08:48 Temperature 98.0 F 97.2 F Pulse Rate 81 79 Respiratory Rate 16 18 Blood Pressure 162/83 H 147/89 H 147/89 H Pulse Oximetry 98 100 Oxygen Delivery Method Room Air Room Air 07/20/24 08:50 Temperature Pulse Rate Respiratory Rate Blood Pressure 147/89 H Pulse Oximetry Oxygen Delivery Method BMI result Body Mass Index 27.7 Labs 07/17/24 16:45 07/19/24 08:57 Labs: Laboratory Results - last 48 hr 07/18/24 07/18/24 07/18/24 13:07 16:53 19:58 D-Dimer High Sensitivty Sodium Potassium Chloride Carbon Dioxide Anion Gap BUN Creatinine Estim Creat Clear Calc Estimated GFR POC Glucose 478 H* 216 H Fasting Glucose Calcium Total Bilirubin AST ALT Alkaline Phosphatase Troponin I High Sens Total Protein Albumin Triglycerides Cholesterol LDL Cholesterol, Calc HDL Cholesterol Hold Green Top Chlam trachomat DNA PCR NOT DETECTED N.gonorrhoeae DNA (PCR) NOT DETECTED 07/19/24 07/19/24 07/19/24 07:59 08:57 10:52 D-Dimer High Sensitivty 233 Sodium 137 Potassium 3.8 Chloride 106 Carbon Dioxide 19 L Anion Gap 16 BUN 16 Creatinine 1.02 Estim Creat Clear Calc 59.2 Estimated GFR 57 POC Glucose 184 H Fasting Glucose 262 H Calcium 10.1 D Total Bilirubin 0.2 AST 20 ALT 19 Alkaline Phosphatase 109 Troponin I High Sens 20.1 H D Total Protein 7.2 Albumin 3.4 L Triglycerides 178 H Cholesterol 199 LDL Cholesterol, Calc 94 HDL Cholesterol 70 Hold Green Top See Note Chlam trachomat DNA PCR N.gonorrhoeae DNA (PCR) 07/19/24 07/19/24 07/19/24 12:25 13:48 16:37 D-Dimer High Sensitivty Sodium Potassium Chloride Carbon Dioxide Anion Gap BUN Creatinine Estim Creat Clear Calc Estimated GFR POC Glucose 329 H 187 H Fasting Glucose Calcium Total Bilirubin AST ALT Alkaline Phosphatase Troponin I High Sens 16.1 Total Protein Albumin Triglycerides Cholesterol LDL Cholesterol, Calc HDL Cholesterol Hold Green Top Chlam trachomat DNA PCR N.gonorrhoeae DNA (PCR) 07/19/24 07/20/24 07/20/24 20:18 08:05 11:57 D-Dimer High Sensitivty Sodium Potassium Chloride Carbon Dioxide Anion Gap BUN Creatinine Estim Creat Clear Calc Estimated GFR POC Glucose 264 H 216 H 397 H* Fasting Glucose Calcium Total Bilirubin AST ALT Alkaline Phosphatase Troponin I High Sens Total Protein Albumin Triglycerides Cholesterol LDL Cholesterol, Calc HDL Cholesterol Hold Green Top Chlam trachomat DNA PCR N.gonorrhoeae DNA (PCR) Imaging Radiology Impressions: ITS Impressions Pulmonary Perfusion Imaging 07/19/24 11:50 IMPRESSION: Based on perfusion only modified PIOPED 2 criteria, pulmonary thromboembolism is absent. Electronically signed by: Jamie Queen MD 07/19/2024 04:[address] [facility] Chest X-Ray 07/19/24 13:20 IMPRESSION: No acute airspace disease. Electronically signed by: Raji Coleman MD 07/19/2024 01:[address] [facility] Medications Medications Current Medications Acetaminophen (Acetaminophen 325 Mg Tablet) 650 mg PO Q6H PRN PRN Reason: Headache/Pain Mild Scale (1-3) Last Admin: 07/20/24 09:56 Dose: 650 mg Al Hydroxide/Mg Hydroxide (Magnesium Hydrox/Alum Hydrox 30 Ml Oral.Susp) 30 ml PO Q6H PRN PRN Reason: Heartburn/Nausea Albuterol Sulfate (Albuterol Sulfate 90 Mcg 8 Gm Inhaler) 2 puff INHALE RQ4H PRN PRN Reason: wheezing Amlodipine Besylate (Amlodipine Besylate 2.5 Mg Tablet) 2.5 mg PO DAILY [facility]; Protocol Last Admin: 07/20/24 08:50 Dose: 2.5 mg Apixaban (Apixaban 5 Mg Tablet) 5 mg PO BID [facility] Last Admin: 07/20/24 08:51 Dose: 5 mg Aripiprazole (Aripiprazole 5 Mg Tablet) 5 mg PO DAILY [facility] Last Admin: 07/20/24 08:49 Dose: 5 mg Atorvastatin Calcium (Atorvastatin Calcium 40 Mg Tablet) 40 mg PO DAILY [facility] Last Admin: 07/20/24 08:49 Dose: 40 mg Cefuroxime Axetil (Cefuroxime Axetil 250 Mg Tablet) 250 mg PO BID [facility] Stop: 07/25/24 09:01 Last Admin: 07/20/24 08:48 Dose: 250 mg Cyclobenzaprine HCl (Cyclobenzaprine Hcl 10 Mg Tablet) 10 mg PO BEDTIME PRN PRN Reason: muscle spasm Last Admin: 07/19/24 14:33 Dose: 10 mg Doxepin HCl (Doxepin Hcl 25 Mg Capsule) 25 mg PO BEDTIME [facility] Last Admin: 07/19/24 20:33 Dose: 25 mg Famotidine (Famotidine 20 Mg Tablet) 10 mg PO BID [facility] Last Admin: 07/20/24 08:51 Dose: 10 mg Glucose (Glucose Gel 15 Gm Gel..Gram.) 15 gm PO Q15M PRN; Protocol PRN Reason: per Hypoglycemia Standing Ord. Hydroxyzine HCl (Hydroxyzine Hcl 25 Mg Tablet) 25 mg PO Q6H PRN PRN Reason: Anxiety Insulin Glargine (Insulin Glargine,Hum.Rec.Anlog 100 Unit/Ml 10 Ml Vial) 25 unit SUBCUT BEDTIME [facility] Last Admin: 07/19/24 20:34 Dose: 25 unit Insulin Human Lispro (Insulin Lispro 100 Unit/Ml 3 Ml Vial) 0 unit SUBCUT QIDACHS [facility]; Protocol Last Admin: 07/20/24 12:09 Dose: 10 unit Levothyroxine Sodium (Levothyroxine Sodium 25 Mcg Tablet) 25 mcg PO DAILY@0600 [facility] Last Admin: 07/20/24 06:18 Dose: 25 mcg Lorazepam (Lorazepam 0.5 Mg Tablet) 0.5 mg PO BID PRN PRN Reason: Anxiety Last Admin: 07/20/24 10:44 Dose: 0.5 mg Losartan Potassium (Losartan Potassium 50 Mg Tablet) 100 mg PO DAILY [facility]; Protocol Last Admin: 07/20/24 08:48 Dose: 100 mg Magnesium Hydroxide (Milk Of Magnesia 30 Ml Oral.Susp) 30 ml PO DAILY PRN PRN Reason: Constipation Metformin HCl (Metformin Hcl Er 500 Mg Tab.Er.24h) 1,000 mg PO BID [facility] Last Admin: 07/20/24 08:49 Dose: 1,000 mg Nicotine (Nicotine 21 Mg Patch.Td24) 21 mg TRANSDERMA DAILY [facility] Last Admin: 07/20/24 09:54 Dose: Not Given Nicotine Polacrilex (Nicotine Polacrilex 2 Mg Gum) 4 mg BUCCAL Q2H PRN PRN Reason: Nicotine Cravings Ondansetron HCl (Ondansetron Odt 8 Mg Tab.Rapdis) 8 mg TRANSLINGU Q12H PRN PRN Reason: Nausea and Vomiting Trazodone HCl (Trazodone Hcl 50 Mg Tablet) 50 mg PO BEDTIME MRX1 PRN PRN Reason: Insomnia Vitamin D (Cholecalciferol (Vitamin D3) 25 Mcg Tablet) 25 mcg PO DAILY [facility] Last Admin: 07/20/24 08:49 Dose: 25 mcg Allergies Allergies Allergy/AdvReac Type Severity Reaction Status Date / Time Iodinated Contrast Media Allergy Severe THROAT Verified 07/17/24 15:39 [IV CONTRAST] CLOSING lithium [LITHIUM] Allergy Intermediate AGGRESSION, Verified 07/17/24 15:39 stiffened up & throat closing (moderate to severe) fluoxetine [FLUOXETINE] Allergy Mild ITCHING, Verified 07/17/24 15:39 Suicidal risperidone [From RISPERDAL] Allergy Mild ITCHING Verified 07/17/24 15:39 asparagus [ASPARAGUS] Allergy Unknown unknown Verified 07/17/24 15:39 divalproex sodium Allergy Unknown UNKNOWN, Verified 07/17/24 15:39 [From DEPAKOTE] stiffened up, locked jaw lisinopril [LISINOPRIL] Allergy Unknown COUGH Verified 07/17/24 15:39 olanzapine Allergy Unknown can't Verified 07/17/24 15:39 recall if hives or increased pollen extracts [POLLEN] Allergy Unknown unknown Verified 07/17/24 15:39 tomato [TOMATO] Allergy Unknown UNKNOWN Verified 07/17/24 15:39 quetiapine [From SEROQUEL] AdvReac Intermediate OVERSEDATIO Verified 06/26/24 12:13 N BROCCOLI Allergy Unknown Unknown Uncoded 06/26/24 12:13 FUMARATE Allergy Unknown Unknown Uncoded 06/26/24 12:13 GREEN CHEUNG Allergy Unknown Unknown Uncoded 06/26/24 12:13 TOMATO Allergy Unknown Unknown Uncoded 06/26/24 12:13 Assessment & Plan Assessment & Plan (1) MDD (major depressive disorder), recurrent severe, without psychosis: Status: Acute Code(s): F33.2 - Major depressive disorder, recurrent severe without psychotic features (2) Post traumatic stress disorder (PTSD): Status: Acute Code(s): F43.10 - Post-traumatic stress disorder, unspecified (3) Cocaine use disorder: Status: Acute Code(s): F14.10 - Cocaine abuse, uncomplicated Plan Patient is a 53-year-old female with history of MDD, PTSD, cocaine use disorder who [place] [facility] [place] due to intentional overdose on prescription medications secondary to increased life stressors. Plan: CV 15 minute safety checks Continue home medications Encourage groups Referral to outpatient psychiatric providers Discharge planning 07/19: Keeping to self. patient reports increased anxiety and depression. C/o chest pain and vaginal discharge this morning; pt was seen by hospitalist, (please see note). Denies SI/HI/VH/AH. 07/20 improved mood. given one time dose of diflucan 150mg po, seems, in addition to uti, also yeast infection. advised to wait 3 days and if discharge not improved, can have additional dose of diflucan, up to 3 doses q72hr. also had episode of left side facial droop, weakness. hospitalist ordered head CT- did not show acute ischemia nor infarct. MRI also done- no ischemia. also no signs of new lesions or flare up from MS. Reason for continued inpatient stay Substantial Risk for: inability to function Time Spent With Patient Time: Total time managing care of this patient today ____ minutes.
--- NOTE | 2024-07-20 13:43 | PC.NURSE ---
POC before lunch was [address] Ritter updated and no new orders obtained, just give the 10 units Lispro as ordered. Lispro 10 units given Sub q in patient's upper left arm.
--- NOTE | 2024-07-20 15:57 | PC.NURSE ---
The patient had come up to the nurses station asking for a walker because she thought that she was having a, MS episode. A walker was given to the patient. Shortly afterwards around 1545 the patient was toileting herself when she felt dizzy and weak. Emily rang the help miranda and the [facility] Anna went in to see what was wrong. I arrived shortly after and was told that she was dizzy and weak. She was shaking and had a left facial droop. I went to get help while Anna stated with the patient. The paramedic supervisor went with me and a Rapid Response Stroke Alert was called. Her B/P was 176/114, Pulse 102, O2 Sat 98% on room air and she was complaining of a bad headache. Pupils were sluggish to respond and left arm was weaker than right arm. Rapid response Stroke team arrive and the patient was sent to CT Scan via stretcher at 1550. An MRI was also ordered. Elisabeth Cortez ROTARY HELPER updated.
[2024-07-20 16:08] VITALS: BP 149/84; PULSE 86; RESP 16; O2SAT 98
--- NOTE | 2024-07-20 16:30 | PM.EVENT ---
Event Note Date of Service: 07/20/24 Event Note: stroke code called for left facial droop and bilateral leg parasthesias no other motor deficits noted. CTH negative, not TNK candidate due to eliquis and low NHSS unable to get CTA due to iv contrast severe allergy d/w neuro, cva less likely, but will get MRI brain non contrast Time Spent With Patient Time: Total time managing care of this patient today ____ minutes.
[2024-07-20] MEDS: Fluconazole 150 MG TABLET PO (17:13)
[2024-07-20 17:19] LABS: Glucose, Whole Blood 223 mg/dL (60-115)
--- NOTE | 2024-07-20 17:26 | PC.NURSE ---
Emily returned to the unit from MRI during supper. Her POC was 223, 4units Lispro insulin was given sub q. Also B/P was 168/86, P 89 and O2 Sat 100% on room air. She ate about 50% of her supper and wanted to rest in bed. She does still believe that it was a MS episode since she has been off of her medications for 2 years and had a bad reaction to her last infusion. Her provider from [facility] is on a medical leave now until the end of the month. Will continue to monitor.
[2024-07-20 19:16] VITALS: BP 128/60; PULSE 75; RESP 16; TEMP 36.4; O2SAT 98
[2024-07-20 19:30] VITALS: BP 155/88; PULSE 89; RESP 16; TEMP 36.7; O2SAT 98
[2024-07-20 20:32] LABS: Glucose, Whole Blood 212 mg/dL (60-115)
[2024-07-20] MEDS: Insulin Glargine,Hum.rec.anlog 100 UNIT/ML 10 ML VIAL 25 UNIT SUBCUT (20:36)
[2024-07-20] MEDS: Doxepin HCl 25 MG CAPSULE PO (20:37)
[2024-07-20] MEDS: Cyclobenzaprine HCl 10 MG TABLET PO (20:37)
[2024-07-20] MEDS: traZODone HCL 50 MG TABLET PO (21:41)
[2024-07-21] MEDS: Levothyroxine Sodium 25 MCG TABLET PO (06:42)
[2024-07-21] MEDS: Acetaminophen 325 MG TABLET 650 MG PO ×2 (06:42→18:47)
[2024-07-21 07:34] VITALS: BP 161/77; PULSE 87; RESP 14; TEMP 36.6; O2SAT 100
[2024-07-21 07:58] LABS: Glucose, Whole Blood 272 mg/dL (60-115)
[2024-07-21 09:02] VITALS: BP 161/77
[2024-07-21] MEDS: amLODIPine Besylate 2.5 MG TABLET PO (09:02)
[2024-07-21 09:03] VITALS: BP 161/77
[2024-07-21] MEDS: ARIPiprazole 5 MG TABLET PO (09:03)
[2024-07-21] MEDS: Atorvastatin Calcium 40 MG TABLET PO (09:03)
[2024-07-21] MEDS: metFORMIN HCl ER 500 MG TAB.ER.24H 1000 MG PO ×2 (09:03→19:55)
[2024-07-21] MEDS: Cholecalciferol (Vitamin D3) 25 MCG TABLET PO (09:03)
[2024-07-21] MEDS: Apixaban 5 MG TABLET PO ×2 (09:03→19:53)
[2024-07-21] MEDS: Losartan Potassium 50 MG TABLET 100 MG PO (09:03)
[2024-07-21] MEDS: Famotidine 20 MG TABLET 10 MG PO ×2 (09:03→19:54)
[2024-07-21] MEDS: cefuroxime axetiL 250 MG TABLET PO ×2 (09:03→19:54)
[2024-07-21] MEDS: Insulin Lispro 100 UNIT/ML 3 ML VIAL SUBCUT ×4 (09:04→20:08)
[2024-07-21] MEDS: LORazepam 0.5 MG TABLET PO ×2 (11:46→19:55)
[2024-07-21 11:53] LABS: Glucose, Whole Blood 254 mg/dL (60-115)
[2024-07-21 16:53] LABS: Glucose, Whole Blood 209 mg/dL (60-115)
[2024-07-21 19:49] VITALS: BP 176/91; PULSE 91; RESP 16; TEMP 36.4; O2SAT 97
[2024-07-21] MEDS: Insulin Glargine,Hum.rec.anlog 100 UNIT/ML 10 ML VIAL 25 UNIT SUBCUT (19:52)
[2024-07-21] MEDS: Doxepin HCl 25 MG CAPSULE PO (19:54)
[2024-07-21] MEDS: traZODone HCL 50 MG TABLET PO (19:55)
[2024-07-21] MEDS: Cyclobenzaprine HCl 10 MG TABLET PO (19:56)
--- NOTE | 2024-07-21 20:00 | HO.PSYCHPN ---
Subjective Subjective Date of Service: 07/21/24 Reason For Visit: crisis Subjective Notes: Conditional Voluntary Interim History: Pt slept most of the night. Pt reports doing better, still having vaginal discharged, advised to wait 3 more days, before need for additional dose of diflucan. No SI/HI. No VH/AH. Review of Systems Review of Systems No fever no chills no chest pain Yes all other systems are reviewed and are negative Constitutional: Reports as per HPI Eyes: Reports as per HPI Reports as per HPI Cardiovascular: Reports as per HPI Respiratory: Reports as per HPI Gastrointestinal: Reports as per HPI Musculoskeletal: Reports as per HPI Skin/Breast: Reports as per HPI Reports as per HPI Psychiatric: Reports as per HPI Endocrine: Reports as per HPI Hematologic/Lymphatic: Reports as per HPI Allergic/Immunologic: Reports as per HPI Mental Status Exam Mental Status Exam Narrative: Pt is alert and oriented; behavior is cooperative; dressed in casual attire; mood is described as depressed and anxious ; eye contact appropriate; Speech is normal rate, volume and not pressured; thought process is organized and goal directed; Thought content is on tx; otherwise pertinent to relevant topics and without any delusional content, paranoid ideations or grandiosity; denies SI/HI/VH/AH. Diagnostics Vital Signs (24Hr): Vital Signs - 24 hr 07/21/24 07:34 07/21/24 09:02 07/21/24 09:03 Temperature 97.8 F Pulse Rate 87 Respiratory Rate 14 Blood Pressure 161/77 H 161/77 H 161/77 H Pulse Oximetry 100 Oxygen Delivery Method Room Air BMI result Body Mass Index 27.7 Labs 07/17/24 16:45 07/19/24 08:57 Labs: Laboratory Results - last 48 hr 07/19/24 07/20/24 07/20/24 20:18 08:05 11:57 POC Glucose 264 H 216 H 397 H* 07/20/24 07/20/24 07/21/24 17:12 20:29 07:44 POC Glucose 223 H 212 H 272 H 07/21/24 07/21/24 11:49 16:49 POC Glucose 254 H 209 H Imaging Radiology Impressions: ITS Impressions Pulmonary Perfusion Imaging 07/19/24 11:50 IMPRESSION: Based on perfusion only modified PIOPED 2 criteria, pulmonary thromboembolism is absent. Electronically signed by: Jamie Queen MD 07/19/2024 04:07 PM EST RP Chest X-Ray 07/19/24 13:20 IMPRESSION: No acute airspace disease. Electronically signed by: Raji Coleman MD 07/19/2024 01:27 PM EST RP Head CT 07/20/24 15:58 IMPRESSION: 1. No evidence of edematous territorial infarction or acute intracranial hemorrhage. 2. Hypoattenuation in the deep white matter of the left greater than right occipital lobes appears progressed since 2018. Hypoattenuation within the genu of the corpus callosum is not significantly changed. If clinically warranted, consider brain MRI for further assessment. These results were discussed with Aureliano Ritter MD MD by telephone on 07/20/2024 at 4:23 PM and it was ascertained that the content of the report was understood at the time of direct communication. Electronically signed by: Mira Jarvis DO 07/20/2024 04:24 PM EST RP Brain MRI 07/20/24 16:35 IMPRESSION: 1. No acute intracranial abnormality. 2. Stable white matter disease consistent with patient's history of multiple sclerosis. Electronically signed by: Rosa Maciel MD 07/20/2024 06:06 PM EST RP Medications Medications Current Medications Acetaminophen (Acetaminophen 325 Mg Tablet) 650 mg PO Q6H PRN PRN Reason: Headache/Pain Mild Scale (1-3) Last Admin: 07/21/24 18:47 Dose: 650 mg Al Hydroxide/Mg Hydroxide (Magnesium Hydrox/Alum Hydrox 30 Ml Oral.Susp) 30 ml PO Q6H PRN PRN Reason: Heartburn/Nausea Albuterol Sulfate (Albuterol Sulfate 90 Mcg 8 Gm Inhaler) 2 puff INHALE RQ4H PRN PRN Reason: wheezing Amlodipine Besylate (Amlodipine Besylate 2.5 Mg Tablet) 2.5 mg PO DAILY [facility]; Protocol Last Admin: 07/21/24 09:02 Dose: 2.5 mg Apixaban (Apixaban 5 Mg Tablet) 5 mg PO BID [facility] Last Admin: 07/21/24 09:03 Dose: 5 mg Aripiprazole (Aripiprazole 5 Mg Tablet) 5 mg PO DAILY [facility] Last Admin: 07/21/24 09:03 Dose: 5 mg Atorvastatin Calcium (Atorvastatin Calcium 40 Mg Tablet) 40 mg PO DAILY [facility] Last Admin: 07/21/24 09:03 Dose: 40 mg Cefuroxime Axetil (Cefuroxime Axetil 250 Mg Tablet) 250 mg PO BID [facility] Stop: 07/25/24 09:01 Last Admin: 07/21/24 09:03 Dose: 250 mg Cyclobenzaprine HCl (Cyclobenzaprine Hcl 10 Mg Tablet) 10 mg PO BEDTIME PRN PRN Reason: muscle spasm Last Admin: 07/20/24 20:37 Dose: 10 mg Doxepin HCl (Doxepin Hcl 25 Mg Capsule) 25 mg PO BEDTIME [facility] Last Admin: 07/20/24 20:37 Dose: 25 mg Famotidine (Famotidine 20 Mg Tablet) 10 mg PO BID [facility] Last Admin: 07/21/24 09:03 Dose: 10 mg Glucose (Glucose Gel 15 Gm Gel..Gram.) 15 gm PO Q15M PRN; Protocol PRN Reason: per Hypoglycemia Standing Ord. Hydroxyzine HCl (Hydroxyzine Hcl 25 Mg Tablet) 25 mg PO Q6H PRN PRN Reason: Anxiety Insulin Glargine (Insulin Glargine,Hum.Rec.Anlog 100 Unit/Ml 10 Ml Vial) 25 unit SUBCUT BEDTIME [facility] Last Admin: 07/20/24 20:36 Dose: 25 unit Insulin Human Lispro (Insulin Lispro 100 Unit/Ml 3 Ml Vial) 0 unit SUBCUT QIDACHS [facility]; Protocol Last Admin: 07/21/24 17:07 Dose: 4 unit Levothyroxine Sodium (Levothyroxine Sodium 25 Mcg Tablet) 25 mcg PO DAILY@0600 [facility] Last Admin: 07/21/24 06:42 Dose: 25 mcg Lorazepam (Lorazepam 0.5 Mg Tablet) 0.5 mg PO BID PRN PRN Reason: Anxiety Last Admin: 07/21/24 11:46 Dose: 0.5 mg Losartan Potassium (Losartan Potassium 50 Mg Tablet) 100 mg PO DAILY [facility]; Protocol Last Admin: 07/21/24 09:03 Dose: 100 mg Magnesium Hydroxide (Milk Of Magnesia 30 Ml Oral.Susp) 30 ml PO DAILY PRN PRN Reason: Constipation Metformin HCl (Metformin Hcl Er 500 Mg Tab.Er.24h) 1,000 mg PO BID [facility] Last Admin: 07/21/24 09:03 Dose: 1,000 mg Nicotine (Nicotine 21 Mg Patch.Td24) 21 mg TRANSDERMA DAILY [facility] Last Admin: 07/21/24 09:09 Dose: Not Given Nicotine Polacrilex (Nicotine Polacrilex 2 Mg Gum) 4 mg BUCCAL Q2H PRN PRN Reason: Nicotine Cravings Ondansetron HCl (Ondansetron Odt 8 Mg Tab.Rapdis) 8 mg TRANSLINGU Q12H PRN PRN Reason: Nausea and Vomiting Trazodone HCl (Trazodone Hcl 50 Mg Tablet) 50 mg PO BEDTIME MRX1 PRN PRN Reason: Insomnia Last Admin: 07/20/24 21:41 Dose: 50 mg Vitamin D (Cholecalciferol (Vitamin D3) 25 Mcg Tablet) 25 mcg PO DAILY [facility] Last Admin: 07/21/24 09:03 Dose: 25 mcg Allergies Allergies Allergy/AdvReac Type Severity Reaction Status Date / Time Iodinated Contrast Media Allergy Severe THROAT Verified 07/17/24 15:39 [IV CONTRAST] CLOSING lithium [LITHIUM] Allergy Intermediate AGGRESSION, Verified 07/17/24 15:39 stiffened up & throat closing (moderate to severe) fluoxetine [FLUOXETINE] Allergy Mild ITCHING, Verified 07/17/24 15:39 Suicidal risperidone [From RISPERDAL] Allergy Mild ITCHING Verified 07/17/24 15:39 asparagus [ASPARAGUS] Allergy Unknown unknown Verified 07/17/24 15:39 divalproex sodium Allergy Unknown UNKNOWN, Verified 07/17/24 15:39 [From DEPAKOTE] stiffened up, locked jaw lisinopril [LISINOPRIL] Allergy Unknown COUGH Verified 07/17/24 15:39 olanzapine Allergy Unknown can't Verified 07/17/24 15:39 recall if hives or increased pollen extracts [POLLEN] Allergy Unknown unknown Verified 07/17/24 15:39 tomato [TOMATO] Allergy Unknown UNKNOWN Verified 07/17/24 15:39 quetiapine [From SEROQUEL] AdvReac Intermediate OVERSEDATIO Verified 06/26/24 12:13 N BROCCOLI Allergy Unknown Unknown Uncoded 06/26/24 12:13 FUMARATE Allergy Unknown Unknown Uncoded 06/26/24 12:13 GREEN CHEUNG Allergy Unknown Unknown Uncoded 06/26/24 12:13 TOMATO Allergy Unknown Unknown Uncoded 06/26/24 12:13 Assessment & Plan Assessment & Plan (1) MDD (major depressive disorder), recurrent severe, without psychosis: Status: Acute Code(s): F33.2 - Major depressive disorder, recurrent severe without psychotic features (2) Post traumatic stress disorder (PTSD): Status: Acute Code(s): F43.10 - Post-traumatic stress disorder, unspecified (3) Cocaine use disorder: Status: Acute Code(s): F14.10 - Cocaine abuse, uncomplicated Plan Patient is a 53-year-old female with history of MDD, PTSD, cocaine use disorder who presented to [facility] via ambulance due to intentional overdose on prescription medications secondary to increased life stressors. Plan: CV 15 minute safety checks Continue home medications Encourage groups Referral to outpatient psychiatric providers Discharge planning 07/19: Keeping to self. patient reports increased anxiety and depression. C/o chest pain and vaginal discharge this morning; pt was seen by hospitalist, (please see note). Denies SI/HI/VH/AH. 07/[address] and MRI negative for ischemia/infarct. MRI also did not show new MS lesion.one time dose of diflucan given 150mg for vaginal yeast infection. may repeat in 3 days if symptoms persist, up to 3 doses q72hrs. 07/21 continue tx. Reason for continued inpatient stay Substantial Risk for: inability to function Time Spent With Patient Time: Total time managing care of this patient today ____ minutes.
[2024-07-21 20:08] LABS: Glucose, Whole Blood 202 mg/dL (60-115)
[2024-07-22] MEDS: Acetaminophen 325 MG TABLET 650 MG PO (06:25)
[2024-07-22] MEDS: Levothyroxine Sodium 25 MCG TABLET PO (06:26)
[2024-07-22 08:06] LABS: Glucose, Whole Blood 187 mg/dL (60-115)
[2024-07-22 08:13] VITALS: BP 142/95; PULSE 87; RESP 16; TEMP 36.4; O2SAT 99
[2024-07-22] MEDS: cefuroxime axetiL 250 MG TABLET PO ×2 (08:17→20:15)
[2024-07-22] MEDS: Losartan Potassium 50 MG TABLET 100 MG PO (08:17)
[2024-07-22] MEDS: Atorvastatin Calcium 40 MG TABLET PO (08:17)
[2024-07-22] MEDS: metFORMIN HCl ER 500 MG TAB.ER.24H 1000 MG PO ×2 (08:17→20:15)
[2024-07-22] MEDS: Famotidine 20 MG TABLET 10 MG PO ×2 (08:17→20:14)
[2024-07-22] MEDS: ARIPiprazole 5 MG TABLET PO (08:18)
[2024-07-22] MEDS: Apixaban 5 MG TABLET PO ×2 (08:18→20:15)
[2024-07-22] MEDS: Cholecalciferol (Vitamin D3) 25 MCG TABLET PO (08:18)
[2024-07-22] MEDS: amLODIPine Besylate 2.5 MG TABLET PO (08:18)
[2024-07-22] MEDS: Insulin Lispro 100 UNIT/ML 3 ML VIAL SUBCUT ×4 (08:21→20:14)
[2024-07-22] MEDS: Cyclobenzaprine HCl 10 MG TABLET PO (09:57)
--- NOTE | 2024-07-22 10:13 | P.PNPSI_ITS ---
Subjective Subjective Date of Service: 07/22/24 Reason For Visit: crisis Subjective Notes: Conditional Voluntary Interim History: Active on unit, social with peers. observed joking and laughing with peers. patients 3 day up on 07/25/24. Patient reports feeling good ; pt stated, I need to head home to take care of my mom . She is requesting to be discharged tomorrow. Pt reports sleeping well. denies SI/HI/VH/AH. Patient reports she would like to information for [facility] to be able to call after she sets up rides for herself; clinical social work aide aware. pt reports she plans on following up with her outpatient providers and staying sober by attending meetings. Medication Compliance: Yes Side effects from medications: No Review of Systems Constitutional: Reports as per HPI Eyes: Reports as per HPI Reports as per HPI Cardiovascular: Reports as per HPI Respiratory: Reports as per HPI Gastrointestinal: Reports as per HPI Musculoskeletal: Reports as per HPI Skin/Breast: Reports as per HPI Reports as per HPI Psychiatric: Reports as per HPI Endocrine: Reports as per HPI Hematologic/Lymphatic: Reports as per HPI Allergic/Immunologic: Reports as per HPI Mental Status Exam Mental Status Exam Narrative: Pt is alert and oriented; behavior is cooperative; dressed in casual attire; mood is described as good ; eye contact appropriate; Speech is normal rate, volume and not pressured; thought process is organized and goal directed; Thought content is on tx; otherwise pertinent to relevant topics and without any delusional content, paranoid ideations or grandiosity; denies SI/HI/VH/AH. Diagnostics Vital Signs (24Hr): Vital Signs - 24 hr 07/21/24 19:49 07/22/24 08:13 Temperature 97.5 F 97.6 F Pulse Rate 91 87 Respiratory Rate 16 16 Blood Pressure 176/91 H 142/95 H Pulse Oximetry 97 99 Oxygen Delivery Method Room Air Room Air BMI result Body Mass Index 27.7 Labs 07/17/24 16:45 07/19/24 08:57 Labs: Laboratory Results - last 48 hr 07/20/24 07/20/24 07/20/24 11:57 17:12 20:29 POC Glucose 397 H* 223 H 212 H 07/21/24 07/21/24 07/21/24 07:44 11:49 16:49 POC Glucose 272 H 254 H 209 H 07/21/24 07/22/24 20:03 07:53 POC Glucose 202 H 187 H Imaging Radiology Impressions: ITS Impressions Pulmonary Perfusion Imaging 07/19/24 11:50 IMPRESSION: Based on perfusion only modified PIOPED 2 criteria, pulmonary thromboembolism is absent. Electronically signed by: Jamie Queen MD 07/19/2024 04:07 PM EST RP Chest X-Ray 07/19/24 13:20 IMPRESSION: No acute airspace disease. Electronically signed by: Raji Coleman MD 07/19/2024 01:27 PM EST RP Head CT 07/20/24 15:58 IMPRESSION: 1. No evidence of edematous territorial infarction or acute intracranial hemorrhage. 2. Hypoattenuation in the deep white matter of the left greater than right occipital lobes appears progressed since 2018. Hypoattenuation within the genu of the corpus callosum is not significantly changed. If clinically warranted, consider brain MRI for further assessment. These results were discussed with Aureliano Ritter MD MD by telephone on 07/20/2024 at 4:23 PM and it was ascertained that the content of the report was understood at the time of direct communication. Electronically signed by: Mira Jarvis DO 07/20/2024 04:24 PM EST RP Brain MRI 07/20/24 16:35 IMPRESSION: 1. No acute intracranial abnormality. 2. Stable white matter disease consistent with patient's history of multiple sclerosis. Electronically signed by: Rosa Maciel MD 07/20/2024 06:06 PM EST RP Medications Medications Current Medications Acetaminophen (Acetaminophen 325 Mg Tablet) 650 mg PO Q6H PRN PRN Reason: Headache/Pain Mild Scale (1-3) Last Admin: 07/22/24 06:25 Dose: 650 mg Al Hydroxide/Mg Hydroxide (Magnesium Hydrox/Alum Hydrox 30 Ml Oral.Susp) 30 ml PO Q6H PRN PRN Reason: Heartburn/Nausea Albuterol Sulfate (Albuterol Sulfate 90 Mcg 8 Gm Inhaler) 2 puff INHALE RQ4H PRN PRN Reason: wheezing Amlodipine Besylate (Amlodipine Besylate 2.5 Mg Tablet) 2.5 mg PO DAILY ISI; Protocol Last Admin: 07/22/24 08:18 Dose: 2.5 mg Apixaban (Apixaban 5 Mg Tablet) 5 mg PO BID [facility] Last Admin: 07/22/24 08:18 Dose: 5 mg Aripiprazole (Aripiprazole 5 Mg Tablet) 5 mg PO DAILY [facility] Last Admin: 07/22/24 08:18 Dose: 5 mg Atorvastatin Calcium (Atorvastatin Calcium 40 Mg Tablet) 40 mg PO DAILY [facility] Last Admin: 07/22/24 08:17 Dose: 40 mg Cefuroxime Axetil (Cefuroxime Axetil 250 Mg Tablet) 250 mg PO BID [facility] Stop: 07/25/24 09:01 Last Admin: 07/22/24 08:17 Dose: 250 mg Cyclobenzaprine HCl (Cyclobenzaprine Hcl 10 Mg Tablet) 10 mg PO BEDTIME PRN PRN Reason: muscle spasm Last Admin: 07/22/24 09:57 Dose: 10 mg Doxepin HCl (Doxepin Hcl 25 Mg Capsule) 25 mg PO BEDTIME [facility] Last Admin: 07/21/24 19:54 Dose: 25 mg Famotidine (Famotidine 20 Mg Tablet) 10 mg PO BID [facility] Last Admin: 07/22/24 08:17 Dose: 10 mg Glucose (Glucose Gel 15 Gm Gel..Gram.) 15 gm PO Q15M PRN; Protocol PRN Reason: per Hypoglycemia Standing Ord. Hydroxyzine HCl (Hydroxyzine Hcl 25 Mg Tablet) 25 mg PO Q6H PRN PRN Reason: Anxiety Insulin Glargine (Insulin Glargine,Hum.Rec.Anlog 100 Unit/Ml 10 Ml Vial) 25 unit SUBCUT BEDTIME [facility] Last Admin: 07/21/24 19:52 Dose: 25 unit Insulin Human Lispro (Insulin Lispro 100 Unit/Ml 3 Ml Vial) 0 unit SUBCUT QIDACHS [facility]; Protocol Last Admin: 07/22/24 08:21 Dose: 2 unit Levothyroxine Sodium (Levothyroxine Sodium 25 Mcg Tablet) 25 mcg PO DAILY@0600 [facility] Last Admin: 07/22/24 06:26 Dose: 25 mcg Lorazepam (Lorazepam 0.5 Mg Tablet) 0.5 mg PO BID PRN PRN Reason: Anxiety Last Admin: 07/21/24 19:55 Dose: 0.5 mg Losartan Potassium (Losartan Potassium 50 Mg Tablet) 100 mg PO DAILY [facility]; Protocol Last Admin: 07/22/24 08:17 Dose: 100 mg Magnesium Hydroxide (Milk Of Magnesia 30 Ml Oral.Susp) 30 ml PO DAILY PRN PRN Reason: Constipation Metformin HCl (Metformin Hcl Er 500 Mg Tab.Er.24h) 1,000 mg PO BID [facility] Last Admin: 07/22/24 08:17 Dose: 1,000 mg Nicotine (Nicotine 21 Mg Patch.Td24) 21 mg TRANSDERMA DAILY [facility] Last Admin: 07/22/24 08:21 Dose: Not Given Nicotine Polacrilex (Nicotine Polacrilex 2 Mg Gum) 4 mg BUCCAL Q2H PRN PRN Reason: Nicotine Cravings Ondansetron HCl (Ondansetron Odt 8 Mg Tab.Rapdis) 8 mg TRANSLINGU Q12H PRN PRN Reason: Nausea and Vomiting Trazodone HCl (Trazodone Hcl 50 Mg Tablet) 50 mg PO BEDTIME MRX1 PRN PRN Reason: Insomnia Last Admin: 07/21/24 19:55 Dose: 50 mg Vitamin D (Cholecalciferol (Vitamin D3) 25 Mcg Tablet) 25 mcg PO DAILY [facility] Last Admin: 07/22/24 08:18 Dose: 25 mcg Allergies Allergies Allergy/AdvReac Type Severity Reaction Status Date / Time Iodinated Contrast Media Allergy Severe THROAT Verified 07/17/24 15:39 [IV CONTRAST] CLOSING lithium [LITHIUM] Allergy Intermediate AGGRESSION, Verified 07/17/24 15:39 stiffened up & throat closing (moderate to severe) fluoxetine [FLUOXETINE] Allergy Mild ITCHING, Verified 07/17/24 15:39 Suicidal risperidone [From RISPERDAL] Allergy Mild ITCHING Verified 07/17/24 15:39 asparagus [ASPARAGUS] Allergy Unknown unknown Verified 07/17/24 15:39 divalproex sodium Allergy Unknown UNKNOWN, Verified 07/17/24 15:39 [From DEPAKOTE] stiffened up, locked jaw lisinopril [LISINOPRIL] Allergy Unknown COUGH Verified 07/17/24 15:39 olanzapine Allergy Unknown can't Verified 07/17/24 15:39 recall if hives or increased pollen extracts [POLLEN] Allergy Unknown unknown Verified 07/17/24 15:39 tomato [TOMATO] Allergy Unknown UNKNOWN Verified 07/17/24 15:39 quetiapine [From SEROQUEL] AdvReac Intermediate OVERSEDATIO Verified 06/26/24 12:13 N BROCCOLI Allergy Unknown Unknown Uncoded 06/26/24 12:13 FUMARATE Allergy Unknown Unknown Uncoded 06/26/24 12:13 GREEN CHEUNG Allergy Unknown Unknown Uncoded 06/26/24 12:13 TOMATO Allergy Unknown Unknown Uncoded 06/26/24 12:13 Assessment & Plan Assessment & Plan (1) MDD (major depressive disorder), recurrent severe, without psychosis: Status: Acute Code(s): F33.2 - Major depressive disorder, recurrent severe without psychotic features (2) Post traumatic stress disorder (PTSD): Status: Acute Code(s): F43.10 - Post-traumatic stress disorder, unspecified (3) Cocaine use disorder: Status: Acute Code(s): F14.10 - Cocaine abuse, uncomplicated Plan Patient is a 53-year-old female with history of MDD, PTSD, cocaine use disorder who [place] [facility] [place] due to intentional overdose on prescription medications secondary to increased life stressors. Plan: CV 15 minute safety checks Continue home medications Encourage groups Referral to outpatient psychiatric providers Discharge planning 07/19: Keeping to self. patient reports increased anxiety and depression. C/o chest pain and vaginal discharge this morning; pt was seen by hospitalist, (please see note). Denies SI/HI/VH/AH. 07/[address] and MRI negative for ischemia/infarct. MRI also did not show new MS lesion.one time dose of diflucan given 150mg for vaginal yeast infection. may repeat in 3 days if symptoms persist, up to 3 doses q72hrs. 07/21 continue tx. 07/22: Active on unit, social with peers. observed joking and laughing with peers. patients 3 day up on 07/25/24. Patient reports feeling good ; pt stated, I need to head home to take care of my mom . She is requesting to be discharged tomorrow. Pt reports sleeping well. denies SI/HI/VH/AH. Patient reports she would like to information for [facility] to be able to call after she sets up rides for herself; clinical social work aide aware. pt reports she plans on following up with her outpatient providers and staying sober by attending meetings. Patient educated on: diagnosis, medication risk/benefits and therapeutic strategies Reason for continued inpatient stay Substantial Risk for: stable for discharge Time Spent With Patient Time: Total time managing care of this patient today _20___ minutes.
[2024-07-22 12:02] LABS: Glucose, Whole Blood 300 mg/dL (60-115)
[2024-07-22] MEDS: Albuterol Sulfate 90 MCG 8 GM INHALER 2 PUFF INHALE (12:27)
[2024-07-22] MEDS: LORazepam 0.5 MG TABLET PO ×2 (12:49→19:47)
[2024-07-22 16:37] LABS: Glucose, Whole Blood 233 mg/dL (60-115)
[2024-07-22 20:00] VITALS: BP 151/93; PULSE 99; RESP 16; TEMP 36.5; O2SAT 98
[2024-07-22 20:12] LABS: Glucose, Whole Blood 207 mg/dL (60-115)
[2024-07-22] MEDS: Insulin Glargine,Hum.rec.anlog 100 UNIT/ML 10 ML VIAL 25 UNIT SUBCUT (20:14)
[2024-07-22] MEDS: Doxepin HCl 25 MG CAPSULE PO (20:15)
[2024-07-22] MEDS: traZODone HCL 50 MG TABLET PO (20:15)
[2024-07-23] MEDS: Acetaminophen 325 MG TABLET 650 MG PO (03:35)
[2024-07-23] MEDS: Levothyroxine Sodium 25 MCG TABLET PO (04:47)
[2024-07-23 07:33] VITALS: BP 159/97; PULSE 82; RESP 18; TEMP 36.4; O2SAT 100
[2024-07-23 07:56] LABS: Glucose, Whole Blood 150 mg/dL (60-115)
[2024-07-23] MEDS: metFORMIN HCl ER 500 MG TAB.ER.24H 1000 MG PO (08:11)
[2024-07-23] MEDS: Losartan Potassium 50 MG TABLET 100 MG PO (08:11)
[2024-07-23] MEDS: ARIPiprazole 5 MG TABLET PO (08:11)
[2024-07-23] MEDS: cefuroxime axetiL 250 MG TABLET PO (08:11)
[2024-07-23] MEDS: amLODIPine Besylate 2.5 MG TABLET PO (08:12)
[2024-07-23] MEDS: Famotidine 20 MG TABLET 10 MG PO (08:12)
[2024-07-23] MEDS: Atorvastatin Calcium 40 MG TABLET PO (08:12)
[2024-07-23] MEDS: Apixaban 5 MG TABLET PO (08:12)
[2024-07-23] MEDS: Cholecalciferol (Vitamin D3) 25 MCG TABLET PO (08:12)
[2024-07-23] MEDS: Naloxone HCl Nasal TAKE HOME 4 MG SPRAY 8 MG NOSTRILALT (09:04)
--- NOTE | 2024-07-23 09:38 | P.DS_ITS ---
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 patient is back to baseline Time Spent with Patient Time attestation: Total time managing care of this patient today _20___ minutes. Time spent: Less than 30 minutes Discharge Plan Discharge Anticipated Discharge Date/Time: 07/23/24 11:00 Patient Disposition: Home, Self-Care Discharge Diagnosis: MDD, PTSD, cocaine use d/o Referrals: [facility] [Other] - 1 Week (Follow-up with [facility] for outpatient services. You have been referred by [facility] and just need your intake appointments. ) [facility] [Other] - 1 Week (Here is the Partial information that you were asking for, refer yourself when you are ready. ) [facility] [Primary Care Provider] - 08/06/24 1:45 pm (07-22-24 Your follow up appt has been scheduled with Dr. Connell at [facility] on 08-06-24 @ 1:45pm. If you need to cancel or reschedule please call [phone] 24 hours prior to your appt. Thank you.) Discharge Medications: New cefuroxime axetil 250 mg Tablet 250 mg PO BID 3 Days Qty: 6 0RF Continued famotidine 10 mg Tablet 10 mg PO BID insulin glargine [Lantus Solostar U-100 Insulin] 100 unit/mL (3 mL) insulin pen 25 unit subcut BEDTIME atorvastatin 40 mg tablet 1 tab PO DAILY losartan 100 mg tablet 100 mg PO DAILY cholecalciferol (vitamin D3) [Vitamin D3] 25 mcg (1,000 unit) capsule 1 cap PO DAILY albuterol sulfate [Ventolin HFA] 90 mcg/actuation Hfa Aerosol Inhaler 2 puff inhalation RQ4H PRN (Reason: wheezing) Qty: 0 0RF metformin 500 mg tablet extended release 24 hr 1,000 mg PO BID acetaminophen 325 mg tablet 650 mg PO Q4H PRN (Reason: pain) amlodipine 2.5 mg tablet 2.5 mg PO DAILY levothyroxine 25 mcg tablet 25 mcg PO DAILY@0600 insulin lispro 100 unit/mL insulin pen 8 - 16 sliding scale dose subcut TIDAC Protocol: Insulin Correction Scale Less than or equal to 110 ---- Give (units): 0 111 to 150 Give (units): 8 151 to 200 Give (units): 10 201 to 250 Give (units): 12 251 to 300 Give (units): 14 301 to 350 Give (units): 16 Greater than 350 Give (units): 0 Call MD if Blood Glucose > : 350 cyclobenzaprine 10 mg tablet 10 mg PO BEDTIME PRN (Reason: muscle spasm) aripiprazole [Abilify] 5 mg Tablet 5 mg PO DAILY 30 Days Qty: 30 0RF doxepin 25 mg capsule 25 mg PO BEDTIME Eliquis 5 mg tablet 5 mg PO BID Discharge Orders: Discharge Order (Routine); Ordered 07/23/24 Ordered By: Anabela Rodriguez Diet: Regular diet Activity on Discharge: As tolerated Stand Alone Forms: Patient Portal Discharge page, Community Support Print Language: Surinamese Care Plan Goals: Maintain mood and safe behaviors Take medications as prescribed Continue to pursue sobriety Practice coping skills Continue with outpatient providers and reach out to them as needed Health Concerns: Mood stability and behaviors Sobriety Plan of Treatment: Follow up with your PCP, psychiatric provider and other outpatient providers regarding above concerns Take medications as prescribed Assessment: Patient was interviewed prior to discharge and found to be fully oriented and without SI or HI. Patient has insight and demonstrates good judgment in terms of wanting to pursue treatment. Patient has a safety plan that includes presenting to the closest ER or calling 911 if feeling unsafe. Discharge Date/Time: 07/23/24 10:30
== END 2024-07-23 10:30 | disposition home or self-care (01) | DRG 751 ==
LOC: HO.ED 07-18 00:07 → HO.PADLT16 07-18 12:21
PROVIDERS: Emergency Medicine; Physician Assistant; Physician Assistant Medical; Admitting Provider Registered Nurse; Emergency Provider Emergency Medicine Emergency Medical Services; Responsible Provider Registered Nurse; Visit Provider Psychiatry & Neurology Psychiatry
DX: F33.2 Major depressive disorder, recurrent severe without psychotic features (principal); R45.851 Suicidal ideations; F17.210 Nicotine dependence, cigarettes, uncomplicated; E11.65 Type 2 diabetes mellitus with hyperglycemia; G35 Multiple sclerosis; F43.10 Post-traumatic stress disorder, unspecified; R29.810 Facial weakness; F14.10 Cocaine abuse, uncomplicated; Z71.6 Tobacco abuse counseling; Z20.822 Contact with and (suspected) exposure to COVID-19; Z79.4 Long term (current) use of insulin; Z79.01 Long term (current) use of anticoagulants; Z79.84 Long term (current) use of oral hypoglycemic drugs; Z79.890 Hormone replacement therapy; Z79.899 Other long term (current) drug therapy
CPT/HCPCS: 36415; 70450; 70551; 71046; 78580; 80053; 80061; 80143; 80179; 80307; 81001; 81025; 82803; 82947; 83605; 83735; 84484; 85025; 85379; 87086; 87088; 87186; 87491; 87591; 87635; 93005; 99285; A9540; S9485

== ENCOUNTER → 2024-07-17 18:22 | Outpatient (BNV) | payer MEDICAID, SELFPAY | PROVIDERS: Emergency Provider Emergency Medicine Emergency Medical Services; Visit Provider Internal Medicine Cardiovascular Disease | DX: R94.31 Abnormal electrocardiogram [ECG] [EKG] (principal) | CPT/HCPCS: 93010 ==

== ENCOUNTER 2024-07-18 12:15 | Outpatient (BNV) | payer MEDICAID, SELFPAY | END 2024-07-19 10:16 | PROVIDERS: Admitting Provider Registered Nurse; Emergency Provider Emergency Medicine Emergency Medical Services; Responsible Provider Registered Nurse; Visit Provider Internal Medicine Cardiovascular Disease | DX: R94.31 Abnormal electrocardiogram [ECG] [EKG] (principal) | CPT/HCPCS: 93010 ==

== ENCOUNTER 2024-07-18 12:15 | Outpatient (BNV) | payer MEDICAID, SELFPAY | END 2024-07-19 13:20 | PROVIDERS: Admitting Provider Registered Nurse; Emergency Provider Emergency Medicine Emergency Medical Services; Responsible Provider Registered Nurse; Visit Provider Radiology Diagnostic Radiology | DX: R07.9 Chest pain, unspecified (principal) | CPT/HCPCS: 71046 ==

== ENCOUNTER → 2024-07-18 12:15 | Outpatient (BNV) | payer OTHER, SELFPAY | PROVIDERS: Admitting Provider Registered Nurse; Emergency Provider Emergency Medicine Emergency Medical Services; Responsible Provider Registered Nurse; Visit Provider Registered Nurse | DX: F33.2 Major depressive disorder, recurrent severe without psychotic features (principal); F14.10 Cocaine abuse, uncomplicated; F43.11 Post-traumatic stress disorder, acute | CPT/HCPCS: 99231; 99232; 99233 ==

== ENCOUNTER 2024-08-20 15:13 | Outpatient (REF) | payer OTHER, SELFPAY ==
[2024-08-21 03:49] LABS: CT PCR NOT DETECTED (Not Detect.); NG PCR NOT DETECTED (Not Detect.)
[2024-08-21 08:30] LABS: HBS Num1 0.39 mIU/mL (0-7.99); HBsAGNum1 0.49 S/CO (0.00-0.99); HIV AB/AG Nonreactive (Nonreactive); HIV Num 1 0.06 S/CO (0.00-0.99); Hepatitis B Surface Antigen Negative (Negative); ~HepC Num1 0.21 S/CO (0.00-0.79); ~Hepatitis B Surface Antibody NONREACTIVE (Nonreactive); ~Hepatitis C Antibody Nonreactive (Nonreactive)
[2024-08-21 11:47] LABS: Bacterial Vaginosis PCR NEGATIVE (Negative); Candida Group PCR NOT DETECTED (Not Detect); Candida glab krusei PCR NOT DETECTED (Not Detect); Trichomonas vaginalis PCR DETECTED (Not Detect)
[2024-08-22 10:17] LABS: RPR Rapid Plasma Reagin NON-REACTIVE (NON-REACTIVE)
== END 2024-08-20 15:14 | disposition home or self-care (01) ==
LOC: HO.HHCL 15:13
PROVIDERS: Visit Provider Internal Medicine Geriatric Medicine
DX: N89.8 Other specified noninflammatory disorders of vagina (principal); Z11.3 Encounter for screening for infections with a predominantly sexual mode of transmission
CPT/HCPCS: 0352U; 86592; 86706; 86803; 87340; 87389; 87491; 87591

== ENCOUNTER 2024-08-26 18:14 | Emergency (ER) | payer MEDICAID, SELFPAY ==
[2024-08-26 18:29] VITALS: BP 108/68; PULSE 84; RESP 20; TEMP 36.7; O2SAT 98
--- NOTE | 2024-08-26 18:46 | ED.GENADULT ---
HPI - General Adult General Chief complaint: Allergic Reaction Stated complaint: allergic reaction, epi to L thigh Time Seen by Provider: 08/26/24 18:30 History of Present Illness ED Provider: Dr. Dennis HPI narrative: 53 y/o F patient; PMH HTN, atopic disorder, hx substance abuse, T2DM, hx PE on [place]; presents via EMS with report of allergic reaction prior to arrival. The patient states she ate mashed potatoes and then felt herself develop itchiness, hives, and wheezing. She tried to give herself an epi-pen but accidentally stuck it in her right hand instead. EMS was called and on their arrival she received an epi-pen in her thigh as well. At the time of examination she mainly complains of jitteriness, itchiness, and right hand pain. Related Data Home Medications ?Medication ?Instructions ?Recorded ?Confirmed apixaban 5 mg tablet (Eliquis) 5 mg PO BID 08/25/20 07/17/24 atorvastatin 40 mg tablet 1 tab PO DAILY 06/07/22 07/17/24 cholecalciferol (vitamin D3) 25 1 cap PO DAILY 06/07/22 07/17/24 mcg (1,000 unit) capsule (Vitamin D3) insulin glargine 100 unit/mL (3 25 unit subcut BEDTIME 06/07/22 07/17/24 mL) subcutaneous pen (Lantus Solostar U-100 Insulin) losartan 100 mg tablet 100 mg PO DAILY 06/07/22 07/17/24 metformin 500 mg tablet,extended 1,000 mg PO BID 05/11/23 07/17/24 release 24 hr acetaminophen 325 mg tablet 650 mg PO Q4H PRN pain 05/28/24 07/17/24 amlodipine 2.5 mg tablet 2.5 mg PO DAILY 05/28/24 07/17/24 insulin lispro 100 unit/mL 8 - 16 sliding scale dose subcut 05/28/24 07/17/24 subcutaneous pen TIDAC levothyroxine 25 mcg tablet 25 mcg PO DAILY@0600 05/28/24 07/17/24 famotidine 10 mg tablet 10 mg PO BID 06/13/24 07/17/24 doxepin 25 mg capsule 25 mg PO BEDTIME 06/21/24 07/17/24 cyclobenzaprine 10 mg tablet 10 mg PO BEDTIME PRN muscle spasm 07/18/24 07/18/24 Previous Rx's ?Medication ?Instructions ?Recorded albuterol sulfate 90 mcg/actuation 2 puff inhalation RQ4H PRN 07/25/22 aerosol inhaler (Ventolin HFA) wheezing #0 grams aripiprazole 5 mg tablet (Abilify) 5 mg PO DAILY 30 days #30 tabs 07/22/24 cefuroxime axetil 250 mg tablet 250 mg PO BID 3 days #6 tabs 07/22/24 epinephrine 0.3 mg/0.3 mL 0.3 mg (0.3 mL) IM Q15M PRN 08/26/24 injection, auto-injector anaphylaxis #2 ea Allergies Allergy/AdvReac Type Severity Reaction Status Date / Time Iodinated Contrast Media Allergy Severe THROAT Verified 08/26/24 19:23 [IV CONTRAST] CLOSING lithium [LITHIUM] Allergy Intermediate AGGRESSION, Verified 08/26/24 19:23 stiffened up & throat closing (moderate to severe) fluoxetine [FLUOXETINE] Allergy Mild ITCHING, Verified 08/26/24 19:23 Suicidal risperidone [From RISPERDAL] Allergy Mild ITCHING Verified 08/26/24 19:23 asparagus [ASPARAGUS] Allergy Unknown unknown Verified 08/26/24 19:23 divalproex sodium Allergy Unknown UNKNOWN, Verified 08/26/24 19:23 [From DEPAKOTE] stiffened up, locked jaw lisinopril [LISINOPRIL] Allergy Unknown COUGH Verified 08/26/24 19:23 olanzapine Allergy Unknown can't Verified 08/26/24 19:23 recall if hives or increased pollen extracts [POLLEN] Allergy Unknown unknown Verified 08/26/24 19:23 tomato [TOMATO] Allergy Unknown UNKNOWN Verified 08/26/24 19:23 quetiapine [From SEROQUEL] AdvReac Intermediate OVERSEDATIO Verified 08/26/24 19:23 N BROCCOLI Allergy Unknown Unknown Uncoded 06/26/24 12:13 FUMARATE Allergy Unknown Unknown Uncoded 06/26/24 12:13 GREEN CHEUNG Allergy Unknown Unknown Uncoded 06/26/24 12:13 TOMATO Allergy Unknown Unknown Uncoded 06/26/24 12:13 Review of Systems Review of Systems: Yes all other systems are reviewed and are negative PMFSH Past Medical History Attestation statement: The following information was validated with the patient. Source: old records reviewed Medical History Multiple sclerosis exacerbation Excoriation (skin-picking) disorder Back pain GERD (gastroesophageal reflux disease) Peripheral neuropathy PTSD (post-traumatic stress disorder) Mood disorder Elevated cholesterol Fibromyalgia Chronic back pain DDD (degenerative disc disease) Ovarian cyst Kidney stone Normal colonoscopy Lesion of bladder Suicide attempt Depression IBS (irritable bowel syndrome) Obesity (BMI 30-39.9) Endometriosis History of pulmonary embolus (PE) History of DVT (deep vein thrombosis) Diabetes mellitus Asthma HTN (hypertension) Anxiety Multiple sclerosis Surgical History History of lithotripsy History of cystoscopy S/P endometrial ablation H/O neck surgery Hx of dilation and curettage Hx of tubal ligation Hx of appendectomy Hx of cholecystectomy Family History Family History Mother Rheumatoid arteritis COPD (chronic obstructive pulmonary disease) Father HTN (hypertension) Diabetes mellitus Social History Social History Household Members: None Housing: Apartment Do you presently have visiting nurse or other home services: No Alcohol intake: current Alcohol intake frequency: holidays/special occasions only Comment: on 5 min checks for safety after episode today Patient Tobacco Use Status: Current everyday Tobacco user Tobacco use type: Cigarette Cigarette Packs Per Day: 1 Cigarettes Per Day: 20.0 Years Smoked: 39 e-Cigarette/Vaping Use: Currently Using Second Hand Smoke Exposure: No Substance Use Type: Crack/Cocaine Advance Directives: Yes Advance Directives on File: Yes Advance Directives Date on File: 05/18/23 service: No Sexual orientation: Straight/Heterosexual Gender identity: Female Physical Exam ED Vital Signs: Vital Signs - 24 hr 08/26/24 18:29 Temperature 98.0 F Pulse Rate 84 Respiratory Rate 20 Blood Pressure 108/68 Pulse Oximetry 98 Oxygen Delivery Method Room Air BMI result Body Mass Index 27.1 Patient is afebrile and hemodynamically stable Const General: cooperative HENMT Head: Yes normal to inspection and Yes atraumatic Eyes General: appearance normal, both eyes and all related structures Neck Neck: Yes normal visual inspection, Yes full ROM, Yes supple and No tender Chest Chest palpation & inspection: normal inspection of the chest and normal palpation of entire chest wall Resp Effort & Inspection: normal respiratory effort, able to speak in complete sentences and no cough Auscultation: clear to auscultation bilaterally Cardio Rate: regular rate Rhythm: regular rhythm Peripheral pulses: Peripheral pulses 2+ throughout GI Inspection: Yes normal to inspection, No Abdominal wall edema and No distended Palpation (GI): Soft to palpation, not firm, nontender, no guarding and not rigid Auscultation: normal bowel sounds Back/Spine/Pelvis Back: No back tenderness Skin Other: Excoriations to bilateral upper extremities. Puncture wound to right palm with surrounding pallor. NVI. FROM. Course Course Course Narrative: Patient is afebrile and hemodynamically stable. Will plan on period of observation. Providing topical nitroglycerin to right palm. Providing loratadine for itchiness. Patient noted to be hyperglycemic. Ordered for basic labs to assess for DKA or HHS. Reevaluation(s) Reevaluation #1: Labs reviewed. CBC reassuring. BMP with hyperglycemia without DKA or HHS. Patient reports she has a1c of 14 recently. She is actively working with her PCP to titrate her medications. She has an appointment with her PCP tomorrow. Patient observed for 3 hours without return of symptoms. Plan: Discharge to home with PCP follow up Return precautions given Rx epi-pen sent to pharmacy Medications Administered Discontinued Medications Generic Name Dose Route Start Last Admin Trade Name Freq PRN Reason Stop Dose Admin Loratadine 10 mg 08/26/24 18:58 08/26/24 19:11 Loratadine 10 Mg Tablet PO 08/26/24 18:59 10 mg ONCE ONE Administration Nitroglycerin 0.5 inch 08/26/24 18:57 08/26/24 19:19 Nitroglycerin 2 % Oint 1 Gm Packet TRANSDERMA 08/26/24 18:58 0.5 inch ONCE ONE Administration Medical Decision Making Lab Data 08/26/24 20:17 08/26/24 20:17 Labs: Lab Results 08/26/24 08/26/24 Range/Units 18:52 20:17 WBC 11.0 H (4.8-10.8) X10*3/uL RBC 5.46 (4.20-5.50) X10*6/uL Hgb 16.0 (12.0-16.0) g/dl Hct 44.5 (37.0-47.0) % MCV 81.5 (80.0-98.0) fL MCH 29.3 (27.0-33.0) pg MCHC 36.0 H (31.0-35.0) g/dl RDW 12.2 (11.0-16.0) % Plt Count 291 D (160-400) X10*3/uL MPV 9.9 (9.4-12.3) fL Immature Gran % (Auto) 0.5 H (0.0-0.4) % Neut % (Auto) 75.0 H (45-73) % Lymph % (Auto) 19.1 L (20-40) % [place] % (Auto) 3.7 (2-11) % Eos % (Auto) 1.3 (0-4) % Baso % (Auto) 0.4 (0-2) % Lymph # (Auto) 2.1 (1.2-4.9) X10*3/uL [place] # (Auto) 0.4 (0.1-1.2) X10*3/uL Eos # (Auto) 0.1 (0.0-0.4) X10*3/uL Baso # (Auto) 0.0 (0.0-0.2) X10*3/uL Abs Immat Gran (auto) 0.05 H (0.00-0.03) X10*3/uL Absolute Neuts (auto) 8.2 (2.0-8.3) x10*3/uL Absolute Nucleated RBC 0.000 (0.0-0.012) X10*3/uL Nucleated RBC % (auto) 0.0 (0.0-0.2) /100WBC Sodium 132 L (135-145) mmol/L Potassium 4.5 (3.3-5.1) mmol/L Chloride 100 (96-108) mmol/L Carbon Dioxide 24 (22-29) mmol/L Anion Gap 13 (12-20) BUN 16 (9-16) mg/dL Creatinine 1.01 (0.5-1.4) mg/dL Estim Creat Clear Calc 59.2 Estimated GFR 58 POC Glucose 449 H* (60-115) mg/dL Random Glucose 402 H* (60-115) mg/dL Calcium 9.1 D (8.4-10.2) mg/dL Discharge Plan Discharge Clinical Impression: Allergic reaction Patient Disposition: Home, Self-Care Instructions: General Allergic Reaction (ED) Prescriptions: New epinephrine 0.3 mg/0.3 mL auto-injector 0.3 mg IM Q15M PRN (Reason: anaphylaxis) Qty: 2 0RF Rx Instructions: for 2 doses No Action famotidine 10 mg Tablet 10 mg PO BID insulin glargine [Lantus Solostar U-100 Insulin] 100 unit/mL (3 mL) insulin pen 25 unit subcut BEDTIME atorvastatin 40 mg tablet 1 tab PO DAILY losartan 100 mg tablet 100 mg PO DAILY cholecalciferol (vitamin D3) [Vitamin D3] 25 mcg (1,000 unit) capsule 1 cap PO DAILY albuterol sulfate [Ventolin HFA] 90 mcg/actuation Hfa Aerosol Inhaler 2 puff inhalation RQ4H PRN (Reason: wheezing) Qty: 0 0RF metformin 500 mg tablet extended release 24 hr 1,000 mg PO BID acetaminophen 325 mg tablet 650 mg PO Q4H PRN (Reason: pain) amlodipine 2.5 mg tablet 2.5 mg PO DAILY levothyroxine 25 mcg tablet 25 mcg PO DAILY@0600 insulin lispro 100 unit/mL insulin pen 8 - 16 sliding scale dose subcut TIDAC Protocol: Insulin Correction Scale Less than or equal to 110 ---- Give (units): 0 111 to 150 Give (units): 8 151 to 200 Give (units): 10 201 to 250 Give (units): 12 251 to 300 Give (units): 14 301 to 350 Give (units): 16 Greater than 350 Give (units): 0 Call MD if Blood Glucose > : 350 cyclobenzaprine 10 mg tablet 10 mg PO BEDTIME PRN (Reason: muscle spasm) cefuroxime axetil 250 mg Tablet 250 mg PO BID 3 Days Qty: 6 0RF aripiprazole [Abilify] 5 mg Tablet 5 mg PO DAILY 30 Days Qty: 30 0RF doxepin 25 mg capsule 25 mg PO BEDTIME Eliquis 5 mg tablet 5 mg PO BID Print Language: Citizen Of [place]
[2024-08-26 18:57] LABS: Glucose, Whole Blood 449 mg/dL (60-115)
[2024-08-26] MEDS: Loratadine 10 MG TABLET PO (19:11)
[2024-08-26 19:19] VITALS: BP 117/68; PULSE 102; O2SAT 100
[2024-08-26] MEDS: Nitroglycerin 2 % Oint 1 GM Packet 0.5 INCH TRANSDERMA (19:19)
[2024-08-26 19:21] VITALS: BMI 27.1
[2024-08-26 20:22] LABS: MANUAL DIFF FLAG NO
[2024-08-26 20:23] LABS: Basophils Percent Auto 0.4 % (0-2); Eosinophils Absolute Auto 0.1 X10*3/uL (0.0-0.4); Eosinophils Percent Auto 1.3 % (0-4); Hematocrit 44.5 % (37.0-47.0); Imm Gran Abs Auto 0.05 X10*3/uL (0.00-0.03); Imm Gran Pct Auto 0.5 % (0.0-0.4); Lymphocytes Absolute Auto 2.1 X10*3/uL (1.2-4.9); Lymphocytes Percent Auto 19.1 % (20-40); Mean Corpuscular Hemoglobin 29.3 pg (27.0-33.0); Mean Corpuscular Volume 81.5 fL (80.0-98.0); Mean Platelet Volume 9.9 fL (9.4-12.3); Monocytes Absolute Auto 0.4 X10*3/uL (0.1-1.2); Monocytes Percent Auto 3.7 % (2-11); Neutrophils Absolute Auto 8.2 x10*3/uL (2.0-8.3); Platelet Count 291 X10*3/uL (160-400); Red Blood Count 5.46 X10*6/uL (4.20-5.50); Red Cell Distribution Width 12.2 % (11.0-16.0)
[2024-08-26 21:02] LABS: Anion Gap 13 (12-20); Blood Urea Nitrogen 16 mg/dL (9-16); Calcium 9.1 mg/dL (8.4-10.2); Carbon Dioxide 24 mmol/L (22-29); Chloride 100 mmol/L (96-108); Creatinine Clr Calc Pharmacy 59.2; Estimated Glomerular Filt Rate 58; Glucose Random 402 mg/dL (60-115); Potassium 4.5 mmol/L (3.3-5.1); Sodium 132 mmol/L (135-145)
[2024-08-26 21:05] VITALS: BP 124/95; PULSE 85; RESP 20; TEMP -12.4; TEMP 9.6; O2SAT 98
[2024-08-26 21:09] VITALS: BP 124/95; PULSE 85; RESP 20; TEMP 36.4; O2SAT 98
== END 2024-08-26 21:09 | disposition home or self-care (01) ==
PROVIDERS: Emergency Provider Emergency Medicine
DX: L27.2 Dermatitis due to ingested food (principal); I10 Essential (primary) hypertension; E11.65 Type 2 diabetes mellitus with hyperglycemia; F17.210 Nicotine dependence, cigarettes, uncomplicated; Z86.711 Personal history of pulmonary embolism; Z79.4 Long term (current) use of insulin; Z79.01 Long term (current) use of anticoagulants; Z79.899 Other long term (current) drug therapy
CPT/HCPCS: 36415; 80048; 82947; 85025; 99283

== ENCOUNTER 2024-12-10 14:17 | Emergency (ER) | payer MEDICAID, SELFPAY ==
[2024-12-10 14:22] VITALS: BP 159/80; PULSE 74; O2SAT 98
--- NOTE | 2024-12-10 14:30 | ED_ITS ---
HPI - Allergic Reaction General Chief complaint: Allergic Reaction Stated complaint: ?ALL RXN,SOB,HIVES,TIGHT THROAT S/P LUNCH PER EMS Time Seen by Provider: 12/10/24 14:25 Source: patient and EMS Mode of arrival: EMS Limitations: no limitations History of Present Illness ED Provider: DARYN HPI narrative: 53 yo female with PMH of depression, cocaine use disorder, allergies states she takes doxepin for it but ran out. She comes in after having hives and feeling dyspnea after exposure to possible foods. She was give benadryl and IM epi on arrival still feels itchy. 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) Exposure: food Symptoms: rash, itching and difficulty breathing Severity: moderate Treatment prior to arrival: benadryl Previous Allergic Reaction History: prior ED visit(s) Related Data Home Medications ?Medication ?Instructions ?Recorded ?Confirmed apixaban 5 mg tablet (Eliquis) 5 mg PO BID 08/25/20 07/17/24 atorvastatin 40 mg tablet 1 tab PO DAILY 06/07/22 07/17/24 cholecalciferol (vitamin D3) 25 1 cap PO DAILY 06/07/22 07/17/24 mcg (1,000 unit) capsule (Vitamin D3) insulin glargine 100 unit/mL (3 25 unit subcut BEDTIME 06/07/22 07/17/24 mL) subcutaneous pen (Lantus Solostar U-100 Insulin) losartan 100 mg tablet 100 mg PO DAILY 06/07/22 07/17/24 metformin 500 mg tablet,extended 1,000 mg PO BID 05/11/23 07/17/24 release 24 hr acetaminophen 325 mg tablet 650 mg PO Q4H PRN pain 05/28/24 07/17/24 amlodipine 2.5 mg tablet 2.5 mg PO DAILY 05/28/24 07/17/24 insulin lispro 100 unit/mL 8 - 16 sliding scale dose subcut 05/28/24 07/17/24 subcutaneous pen TIDAC levothyroxine 25 mcg tablet 25 mcg PO DAILY@0600 05/28/24 07/17/24 famotidine 10 mg tablet 10 mg PO BID 06/13/24 07/17/24 doxepin 25 mg capsule 25 mg PO BEDTIME 06/21/24 07/17/24 cyclobenzaprine 10 mg tablet 10 mg PO BEDTIME PRN muscle spasm 07/18/24 07/18/24 Previous Rx's ?Medication ?Instructions ?Recorded albuterol sulfate 90 mcg/actuation 2 puff inhalation RQ4H PRN 07/25/22 aerosol inhaler (Ventolin HFA) wheezing #0 grams aripiprazole 5 mg tablet (Abilify) 5 mg PO DAILY 30 days #30 tabs 07/22/24 cefuroxime axetil 250 mg tablet 250 mg PO BID 3 days #6 tabs 07/22/24 epinephrine 0.3 mg/0.3 mL 0.3 mg (0.3 mL) IM Q15M PRN 08/26/24 injection, auto-injector anaphylaxis #2 ea doxepin 25 mg capsule 25 mg PO BEDTIME #30 caps 12/10/24 epinephrine 0.3 mg/0.3 mL 0.3 mg (0.3 mL) IM Q10M PRN 12/10/24 injection, auto-injector anaphylaxis #2 ea prednisone 20 mg tablet 40 mg (2 x 20 mg) PO DAILY 4 days 12/10/24 #8 tabs Allergies Allergy/AdvReac Type Severity Reaction Status Date / Time Iodinated Contrast Media Allergy Severe THROAT Verified 12/10/24 14:37 [IV CONTRAST] CLOSING lithium [LITHIUM] Allergy Intermediate AGGRESSION, Verified 12/10/24 14:37 stiffened up & throat closing (moderate to severe) fluoxetine [FLUOXETINE] Allergy Mild ITCHING, Verified 12/10/24 14:37 Suicidal risperidone [From RISPERDAL] Allergy Mild ITCHING Verified 12/10/24 14:37 asparagus [ASPARAGUS] Allergy Unknown unknown Verified 12/10/24 14:37 divalproex sodium Allergy Unknown UNKNOWN, Verified 12/10/24 14:37 [From DEPAKOTE] stiffened up, locked jaw lisinopril [LISINOPRIL] Allergy Unknown COUGH Verified 12/10/24 14:37 olanzapine Allergy Unknown can't Verified 12/10/24 14:37 recall if hives or increased pollen extracts [POLLEN] Allergy Unknown unknown Verified 12/10/24 14:37 tomato [TOMATO] Allergy Unknown UNKNOWN Verified 12/10/24 14:37 quetiapine [From SEROQUEL] AdvReac Intermediate OVERSEDATIO Verified 04/01/25 14:37 N BROCCOLI Allergy Unknown Unknown Uncoded 06/26/24 12:13 FUMARATE Allergy Unknown Unknown Uncoded 06/26/24 12:13 GREEN CHEUNG Allergy Unknown Unknown Uncoded 06/26/24 12:13 TOMATO Allergy Unknown Unknown Uncoded 06/26/24 12:13 Review of Systems Review of Systems: Constitutional : No Fever, No Chills ENT/Mouth : no oral swelling, No Hoarseness, No Swallowing Difficulty Eyes: No Eye Pain, No Swelling, No Redness Cardiovascular : No Chest Pain, No SOB Respiratory : No Cough, No Sputum, No Wheezing, No Smoke Exposure, No Dyspnea Gastrointestinal : No Nausea, No Vomiting, No Diarrhea, No abdominal Pain Genitourinary : No Dysuria, No Urinary Frequency, No Hematuria Musculoskeletal : No joint pain, No Myalgias, No Joint Swelling Skin : No Skin Lesions, positive rash Neuro : No Weakness, No Numbness, No Headache Psych : No Anxiety/Panic, No Depression All other systems reviewed and are negative PMFSH Past Medical History Attestation statement: The following information was validated with the patient. Source: old records reviewed Medical History Multiple sclerosis exacerbation Excoriation (skin-picking) disorder Back pain GERD (gastroesophageal reflux disease) Peripheral neuropathy PTSD (post-traumatic stress disorder) Mood disorder Elevated cholesterol Fibromyalgia Chronic back pain DDD (degenerative disc disease) Ovarian cyst Kidney stone Normal colonoscopy Lesion of bladder Suicide attempt Depression IBS (irritable bowel syndrome) Obesity (BMI 30-39.9) Endometriosis History of pulmonary embolus (PE) History of DVT (deep vein thrombosis) Diabetes mellitus Asthma HTN (hypertension) Anxiety Multiple sclerosis Surgical History History of lithotripsy History of cystoscopy S/P endometrial ablation H/O neck surgery Hx of dilation and curettage Hx of tubal ligation Hx of appendectomy Hx of cholecystectomy Family History Family History Mother Rheumatoid arteritis COPD (chronic obstructive pulmonary disease) Father HTN (hypertension) Diabetes mellitus Social History Social History Household Members: None Housing: Apartment Do you presently have visiting nurse or other home services: No Alcohol intake: current Alcohol intake frequency: holidays/special occasions only Comment: on 5 min checks for safety after episode today Patient Tobacco Use Status: Current everyday Tobacco user Tobacco use type: Cigarette Cigarette Packs Per Day: 1 Cigarettes Per Day: 20.0 Years Smoked: 39 e-Cigarette/Vaping Use: Currently Using Second Hand Smoke Exposure: No Substance Use Type: Crack/Cocaine Advance Directives: Yes Advance Directives on File: Yes Advance Directives Date on File: 05/18/23 Do you have a plan to hurt others: No Plan service: No Sexual orientation: Straight/Heterosexual Gender identity: Female Physical Exam ED Vital Signs: Vital Signs - 24 hr 12/10/24 14:36 Temperature 97.8 F Pulse Rate 83 Respiratory Rate 26 H Blood Pressure 166/90 H Pulse Oximetry 98 Oxygen Delivery Method Room Air BMI result Body Mass Index 29.2 Appearance: Alert. Oriented X3. No acute distress. Eyes: Pupils equal, round and reactive to light. ENT: Pharynx normal. no angioedema Neck: Normal inspection. Neck supple. CVS: Normal heart rate and rhythm. Pulses normal. Respiratory: No respiratory distress. Breath sounds normal. Abdomen: Soft and nontender. Skin: Skin warm and dry. Normal skin color. Normal skin turgor. no hives noted Extremities: No lower extremity edema. No calf ttp Neuro: Oriented X 3. No motor deficit. No sensory deficit. CN2-12 intact Medications Administered Discontinued Medications Generic Name Dose Route Start Last Admin Trade Name Freq PRN Reason Stop Dose Admin Hydroxyzine HCl 50 mg 12/10/24 14:30 12/10/24 14:44 Hydroxyzine Hcl 50 Mg Tablet PO 12/10/24 14:31 50 mg ONCE ONE Administration Lorazepam 0.5 mg 12/10/24 14:30 12/10/24 14:44 Lorazepam 0.5 Mg Tablet PO 12/10/24 14:31 0.5 mg ONCE ONE Administration Prednisone 40 mg 12/10/24 14:30 12/10/24 14:44 Prednisone 20 Mg Tablet PO 12/10/24 14:31 40 mg ONCE ONE Administration Medical Decision Making Medical Decision Making MDM Narrative: 53 yo female with PMH of depression, cocaine use disorder, allergies here with c/o itching, diff breathing s/p eating Dhaliwal's - clear lungs, no angioedema at this time will give prednisone and doxepin and monitor for 2 hours. She is improved on arrival. If she is clear will DC with epi pen, prednisone and her doxepin Rx. Differential Diagnosis Differential Diagnoses: The differential diagnosis associated with the presentation includes allergic reaction, med reaction Admission/Observation Consideration of admission/observation: Escalation of care including admission/observation considered almost 2 hours since IM medication asking to leave has to catch a bus symptoms resolved Rx prednisone, epi pen, prednisone Independent Historian Clinical information obtained from an independent historian. History obtained from or confirmed by: EMS External Record Review External record reviewed: Inpatient record and Outpatient record Prescription Management I considered prescription management with: Other Discharge Plan Discharge Clinical Impression: Hives Patient Disposition: Home, Self-Care Instructions: Urticaria (ED) Additional Instructions: return for any worsening symptoms or concerns such as difficulty swallowing or breathing will restart you on your doxepin Prescriptions: New doxepin 25 mg capsule 25 mg PO BEDTIME Qty: 30 1RF prednisone 20 mg tablet 40 mg PO DAILY 4 Days Qty: 8 0RF epinephrine 0.3 mg/0.3 mL auto-injector 0.3 mg IM Q10M PRN (Reason: anaphylaxis) Qty: 2 0RF Rx Instructions: for 2 doses No Action famotidine 10 mg Tablet 10 mg PO BID insulin glargine [Lantus Solostar U-100 Insulin] 100 unit/mL (3 mL) insulin pen 25 unit subcut BEDTIME atorvastatin 40 mg tablet 1 tab PO DAILY losartan 100 mg tablet 100 mg PO DAILY cholecalciferol (vitamin D3) [Vitamin D3] 25 mcg (1,000 unit) capsule 1 cap PO DAILY albuterol sulfate [Ventolin HFA] 90 mcg/actuation Hfa Aerosol Inhaler 2 puff inhalation RQ4H PRN (Reason: wheezing) Qty: 0 0RF metformin 500 mg tablet extended release 24 hr 1,000 mg PO BID acetaminophen 325 mg tablet 650 mg PO Q4H PRN (Reason: pain) amlodipine 2.5 mg tablet 2.5 mg PO DAILY levothyroxine 25 mcg tablet 25 mcg PO DAILY@0600 insulin lispro 100 unit/mL insulin pen 8 - 16 sliding scale dose subcut TIDAC Protocol: Insulin Correction Scale Less than or equal to 110 ---- Give (units): 0 111 to 150 Give (units): 8 151 to 200 Give (units): 10 201 to 250 Give (units): 12 251 to 300 Give (units): 14 301 to 350 Give (units): 16 Greater than 350 Give (units): 0 Call MD if Blood Glucose > : 350 cyclobenzaprine 10 mg tablet 10 mg PO BEDTIME PRN (Reason: muscle spasm) cefuroxime axetil 250 mg Tablet 250 mg PO BID 3 Days Qty: 6 0RF aripiprazole [Abilify] 5 mg Tablet 5 mg PO DAILY 30 Days Qty: 30 0RF epinephrine 0.3 mg/0.3 mL auto-injector 0.3 mg IM Q15M PRN (Reason: anaphylaxis) Qty: 2 0RF Rx Instructions: for 2 doses doxepin 25 mg capsule 25 mg PO BEDTIME Eliquis 5 mg tablet 5 mg PO BID Print Language: Setswana
[2024-12-10 14:36] VITALS: BP 166/90; PULSE 83; RESP 26; TEMP 36.6; O2SAT 98; BMI 29.2
[2024-12-10] MEDS: predniSONE 20 MG TABLET 40 MG PO (14:44)
[2024-12-10] MEDS: LORazepam 0.5 MG TABLET PO (14:44)
[2024-12-10] MEDS: hydrOXYzine HCL 50 MG TABLET PO (14:44)
--- NOTE | 2024-12-10 14:47 | PC.NURSE ---
patient speaking in full clear sentences, able to tolerate PO medications w/out issue. placed on corrective and manual arts therapist, nsr
[2024-12-10 16:09] VITALS: BP 153/97; PULSE 88; RESP 16; TEMP 36.6; O2SAT 99
--- OUTSIDE RECORDS SUMMARY | 2024-12-10 17:41 | XMS_ITS | Encounter Summary ---
Author Organization [employer] Address [address] [facility] 7 [place] [address] Care Team Providers Care I O Psychologist Name Role Phone Tyesha Rogers MD Primary Care Provider [phone] Reason for Visit * Reason Onset Date Comments Durable Medical Equipment 09/06/2023 Encounter Details Date Type Department Care Team ([facility] st Contact Info) Description 09/06/2023 Telephone [facility] MEDICINE [address] [place] [address] Tyesha Rogers MD [address] [place] [address] Durable Medical Equipment Social History Tobacco Use Types Packs/Day Years Used Date Smoking Tobacco: Every Day Cigarettes Passive Smoke Exposure: Current Alcohol Use Standard Drinks/Week Comments Yes 0 (1 standard drink = 0.6 oz pur e alcohol) Depression Answer Date Recorded Patient Health Questionnaire-9 Score 21 07/10/2023 Patient Health Questionnaire-9 Score 21 07/10/2023 Last PHQ-9: Questionnaire Data Not on file 1 Housing Stability Answer Date Recorded What is your housing situation today? I have dominga [place] 07/05/[address] you li ve. Do you have problems with any of the following? None of the above 07/05/2023 Food Insecurity Answer Date Recorded Within the past 12 months, y ou worried that your food would run out before you got money to buy more: Often true 07/05/2023 Within the past 12 months,th e food you bought just didn't last and you didn't have enough money to get more: Often true Transportation Answer Date Recorded In the past 12 months, has l ack of transportation kept you from medical appts, meetings, work or from getting things needed for daily living? Yes, it has kept me from medical appointments or getting medications. 07/05/2023 Utilities Answer Date Recorded In the past 12 months, has t he electric, gas, oil or water company threatened to shut off services in your home? No 06/26/2023 Depression Answer Date Recorded Patient Health Questionnaire-2 Score 6 07/10/2023 Comments Unknown Sex and Gender Information Value Date Recorded Sex Assigned at Female 07/11/2022 10:19 AM EDT Legal Sex Female 10:19 AM EDT Gender Identity Female 07/11/2022 10:19 AM EDT Sexual Orientation Choose not to disclose 2021 10:19 AM EDT documented as of this encounter Miscellaneous Notes * Telephone Encounter - Linwood Dumont - 09/06/2023 1:13 PM EST Tc from pt stating that she received the incorrect walker that the walker she was requesting was the walker with the wheels and seat (Rolator Walker) and received the one with no wheels or seat. Please contact Pt @ [phone] documented in this encounter Plan of Treatment Upcoming Encounters Date Type Department Care Team (Late st Contact Info) Description 03/04/2025 1:30 PM EDT Office Visit [facility] OPTOMETRY [address] [place] [address] Katharine Carbone, OD [address] [place] [address] documented as of this encounter Visit Diagnoses Not on filedocumented in this encounter Additional Health Concerns Assessment Noted Time PHQ-9 Depression Total Score: 21 023 9:42 AM EDT documented as of this encounter Care Teams I O Psychologist Relationship Specialty Start Date End Date Tyesha Rogers MD [address] [place] [address] PCP - General Family Medicine 04/25/19 documented as of this encounter
--- OUTSIDE RECORDS SUMMARY | 2024-12-10 17:41 | XMS_ITS | Encounter Summary ---
Author Organization [employer] Address [address] [facility] [address] [place] [address] Care Team Providers Care Bomb Squad Commander Name Role Phone Tyesha Rogers MD Primary Care Provider [phone] Encounter Details Date Type Department Care Team ([facility] st Contact Info) Description 05/06/2024 Orders Only [facility] MEDICINE [address] [place], [place] [phone] Tyesha Rogers MD [address] [place], [place] [phone] Social History Tobacco Use Types Packs/Day Years Used Date Smoking Tobacco: Every Day Cigarettes Passive Smoke Exposure: Current Alcohol Use Standard Drinks/Week Comments Yes 0 (1 standard drink = 0.6 oz pur e alcohol) Depression Answer Date Recorded Patient Health Questionnaire-9 Score 21 12/12/2023 Patient Health Questionnaire-9 Score 21 12/12/2023 Last PHQ-9: Questionnaire Data Not on file 0 12/12/2023 Housing Stability Answer Date Recorded What is [...] Date Recorded Patient Health Questionnaire-2 Score 6 12/12/2023 Comments Unknown Sex and Gender Information Value Date Recorded Sex Assigned at Female 07/11/2022 10:19 AM EDT Legal Sex Female 10:19 AM EDT Gender Identity Female 07/11/2022 10:19 AM EDT Sexual Orientation Choose not to disclose 2021 10:19 AM EDT documented as of this encounter Plan of Treatment Upcoming Encounters Date Type Department Care Team (Late st Contact Info) Description 03/04/2025 1:30 PM EDT Office Visit [facility] OPTOMETRY [address] [place] [address] Raf, Katharine, OD [address] [place] [address] documented as of this encounter Visit Diagnoses Not on filedocumented in this encounter Additional Health Concerns Assessment Noted Time PHQ-9 Depression Total Score: 21 024 10:41 AM EDT documented as of this encounter Care Teams Bomb Squad Commander Relationship Specialty Start Date End Date Tyesha Rogers MD [address] [place] [address] PCP - General Family Medicine 04/25/19 documented as of this encounter
--- OUTSIDE RECORDS SUMMARY | 2024-12-10 17:41 | XMS_ITS | Encounter Summary ---
Author Organization [employer] Address [address] [facility] [address] [place] [address] Care Team Providers Care Motorcycle Mechanic Name Role Phone Tyesha Rogers MD Primary Care Provider [phone] Encounter Details Date Type Department Care Team ([facility] st Contact Info) Description 01/25/[address] [facility] MEDICINE [address] [place], [place] [phone] Tyesha Rogers MD [address] [place], [place] [phone] Social History Tobacco Use Types Packs/Day Years [...] Description 03/04/2025 1:30 PM EDT Office Visit [facility] OPTOMETRY [address] [place] [address] Raf, Katharine, OD [address] [place] [address] documented as of this encounter Visit Diagnoses Not on filedocumented in this encounter Additional Health Concerns Assessment Noted Time PHQ-9 Depression Total Score: 21 024 10:41 AM EDT documented as of this encounter Care Teams Motorcycle Mechanic Relationship Specialty Start Date End Date Tyesha Rogers MD [address] [place] [address] PCP - General Family Medicine 04/25/19 documented as of this encounter
--- OUTSIDE RECORDS SUMMARY | 2024-12-10 17:41 | XMS_ITS | Encounter Summary ---
Author Organization [employer] Address [address] [place] [address] 7 [place] [address] Care Team Providers Care It Program Manager Name Role Phone Tyesha Rogers MD Primary Care Provider [phone] Reason for Visit * Reason Onset Date Comments Nurse Triage 08/30/2023 Encounter Details Date Type Department Care Team ([facility] st Contact Info) Description 08/30/2023 Telephone [facility] MEDICINE [address] [place] [address] Tyesha Rogers MD [address] [place] [address] Nurse Triage Social History Tobacco Use Types Packs/Day Years [...] encounter Miscellaneous Notes * Telephone Encounter - Silvana Nunez RN - 08/30/2023 9:17 AM EST Call to Emily Tucker, reports currently with [facility]. Pt reported CP and elevated BS. 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 Sent to team for ER status check PRN. Protocol Used: Diabetes - High Blood Sugar (Adult) Protocol-Based Disposition: Discuss with PCP and Callback by Nurse within 1 Hour Video visit offer not recorded Positive Triage Question: * Blood glucose > 400 mg/dL (22.2 mmol/L) * All higher-acuity triage questions were negative Care Advice Discussed: * High Blood Sugar (Hyperglycemia) * Treatment - Liquids * Continue Insulin * Measure and Record Your Blood Glucose * Daily Blood Glucose Goals * Reasons To Call Back - Blood glucose over 300 mg/dL (16.7 mmol/L), two or more times in a row. - Vomiting lasting over 4 hours or unable to drink any fluids - Rapid breathing occurs - You become worse * Telephone Encounter - Blanca Rashid - 08/30/2023 9:02 AM EST Pt call back and stated is on her way to [facility]. * Telephone Encounter - Blanca Rashid - 08/30/2023 8:32 AM EST Symptoms: High Blood Sugar - Caller Reports, High Blood Pressure - Caller Reports Outcome: Transfer to a nurse or provider NOW! Reason: Chest pain The caller accepted this outcome documented in this encounter Plan of Treatment Upcoming Encounters Date Type Department Care Team (Late st Contact Info) Description 03/04/2025 1:30 PM EDT Office Visit [facility] OPTOMETRY [address] [place], [place] [phone] Katharine Carbone, OD [address] [place], [place] [phone] documented as of this encounter Visit Diagnoses Not on filedocumented in this encounter Additional Health Concerns Assessment Noted Time PHQ-9 Depression Total Score: 21 023 9:42 AM EDT documented as of this encounter Care Teams It Program Manager Relationship Specialty Start Date End Date Tyesha Rogers MD [address] [place], [place] [phone] PCP - General Family Medicine 04/25/19 documented as of this encounter
--- OUTSIDE RECORDS SUMMARY | 2024-12-10 17:41 | XMS_ITS | Encounter Summary ---
Author Organization [email or web address] Address [address] [place] [address] [address] [place] [address] Care Team Providers Care Brusher Tender Name Role Phone Tyesha Rogers MD Primary Care Provider [phone] Reason for Visit * Reason Onset Date Comments New Med Request 05/03/2024 Medication Question 05/03/2024 Encounter Details Date Type Department Care Team ([facility] st Contact Info) Description 05/03/2024 Telephone [facility] MEDICINE [address] [place] [address] Tyesha Rogers MD [address] [place] [address] New Med Request; Medication Question Social History Tobacco Use Types Packs/Day Years [...] encounter Miscellaneous Notes * Telephone Encounter - Arianne Champagne RN - 05/06/2024 9:23 AM EDT Telephone call to patient to advise of below message from Dr Rogers. Patient reports having anxiety related to pain, stated I am looking for 1 time med. . Advised pt per Dr Rogers, since pt is no longer a patient at [facility] due to move and because the medications were prescribed by her psychiatrist,she should reach out to psychiatrist for these medications. Patient stated she is moving back to [place], date unknown, junior technical writer again advised pt to contact psychiatrist as they are the prescriber and informed pt that Dr Rogers would be informed of move back. Patient verbalized understanding. --Dr Rogers Patient left our health center and moved to [place]. Her anxiety medications have been prescribed by her psychiatrist. * Telephone Encounter - Andrew Garcia - 05/03/2024 12:17 PM EDT Tc from patient calling to request a medication for anxiety will be flying from [facility] on 05/14 and would like it to be sent to [facility] Address: [address] [place] [address] documented in this encounter Plan of Treatment Upcoming Encounters Date Type Department Care Team (Late st Contact Info) Description 03/04/2025 1:30 PM EDT Office Visit [facility] OPTOMETRY [address] [place] [address] Raf, Katharine, OD [address] [place] [address] documented as of this encounter Visit Diagnoses Not on filedocumented in this encounter Additional Health Concerns Assessment Noted Time PHQ-9 Depression Total Score: 21 024 10:41 AM EDT documented as of this encounter Care Teams Brusher Tender Relationship Specialty Start Date End Date Tyesha Rogers MD [address] [place], [place] [phone] PCP - General Family Medicine 04/25/19 documented as of this encounter
--- OUTSIDE RECORDS SUMMARY | 2024-12-10 17:41 | XMS_ITS | Clinical Summary ---
Author Organization [facility] Address [address] [place] [address] Care Team Providers Care Dispatcher Motor Vehicle Name Role Phone Pcp, No Primary Care Provider Unavailabl e Allergies Active Allergy Reactions Criticality Noted Date Comments Valproic Acid Unknown/Patient and Family Unable to Define Medium 05/13/2021 Iodinated Contrast Media Unknown/Patient and Family Unable to Define Medium 05/13/2021 Lisinopril Unknown/Patient and Family Unable to Define Medium 05/13/2021 Risperidone Unknown/Patient and Family Unable to Define Medium 05/13/2021 Quetiapine Unknown/Patient and Family Unable to Define Medium 05/13/2021 Tomato Unknown/Patient and Family Unable to Define Medium 05/13/2021 Medications Medication Sig Dispensed Refills Start Date End Date Status traZODone (DESYREL) 100 MG tablet TAKE ONE TABLET BY MOUTH DAILY AT BEDTIME NEEDED 04/17/2021 Active topiramate (TOPAMAX) 100 MG tablet Take 100 mg by mouth nightly. 04/17/2021 Active prazosin (MINIPRESS) 1 MG capsule TAKE ONE CAPSULE BY MOUTH two (2) times a day 04/30/2021 Active Multiple Vitamin (One-Daily Multi-Vitamin) Tab TAKE ONE TABLET BY MOUTH EVERY DAY. TAKE WITH FOOD 05/08/2021 Active metFORMIN (GLUCOPHAGE) 1000 MG tablet TAKE ONE TABLET BY MOUTH 2 (two) times a day WITH morning AND EVENING MEALS 05/08/2021 Active losartan (COZAAR) 50 MG tablet Take 50 mg by mouth daily. 05/08/2021 Active losartan (COZAAR) 25 MG tablet TAKE ONE TABLET BY MOUTH EVERY DAY (TAKE WITH 50MG TABLET FOR total OF 75 MG DAILY 05/08/2021 Active LORazepam (ATIVAN) 0.5 MG tablet Take 1 tablet by mouth once a day as needed for severe anxiety 04/30/2021 Active Lantus SoloStar 100 UNIT/ML pen injection INJECT 20 UNITS UNDER THE SKIN EVERY MORNING 04/30/2021 Active Flovent HFA 110 MCG/ACT inhaler inhale 1 puff by inhalation route 2 times every day with spacer 04/30/2021 Active famotidine (PEPCID) 40 MG tablet Take 40 mg by mouth daily. 05/08/2021 Active doxepin (SINEquan) 25 MG capsule TAKE ONE CAPSULE BY MOUTH ONCE A DAY AT BEDTIME 04/17/2021 Active docusate sodium (COLACE) 100 MG capsule TAKE ONE CAPSULE BY MOUTH 2 (two) times a day 05/08/2021 Active Jessi-Dryl 25 MG tablet Take 25 mg by mouth 3 times daily (every 8 hours) as needed. 05/08/2021 Active D3-1000 25 MCG (1000 UT) capsule Take 1,000 Units by mouth daily. 05/08/2021 Active Suboxone 2-0.5 MG per SL film DISSOLVE 1 FILM UNDER THE TONGUE EVERY DAY 04/30/2021 Active Suboxone 8-2 MG per SL film DISSOLVE 1 FILM UNDER THE TONGUE EVERY DAY 04/30/2021 Active Eliquis 5 MG tablet TAKE ONE TABLET BY MOUTH 2 (two) times a day 05/08/2021 Active atorvastatin (LIPITOR) 40 MG tablet Take 40 mg by mouth daily. 05/08/2021 Active ProAir HFA 108 (90 Base) MCG/ACT inhaler inhale 2 puff by inhalation route every 4 - 6 hours as needed 04/30/2021 Active Active Problems Problem Noted Date Diagnosed Date Chest pain 05/24/2021 Family History Medical History Relation Name Comments No Known Problems Father Heart attack Mother Diabetes Paternal Grandmother Hyperlipidemia Paternal Grandmother Relation Name Status Comments Father Mother Paternal Grandmother Social History Tobacco Use Types Packs/Day Years Used Date Smoking Tobacco: Every Day Cigarettes Tobacco Cessation:Ready to Q uit: Yes Alcohol Use Standard Drinks/Week Comments Yes 0 (1 standard drink = 0.6 oz pur e alcohol) occasional Sex and Gender Information Value Date Recorded Sex Assigned at Not on file Gender Identity Not on file Sexual Orientation Not on file Last Filed Vital Signs Vital Sign Reading Time Taken Comments Blood Pressure 161/85 05/24/2021 9:14 PM EDT Pulse 75 05/24/2021 9:14 PM EDT Temperature 36.3 ??C (97.4 ??F) 05/24/2021 6:59 PM ED T Respiratory Rate 15 05/24/2021 9:14 PM EDT Oxygen Saturation 100% 05/24/2021 9:14 PM EDT Inhaled Oxygen Concentration - - Weight 81.6 kg (180 lb) 05/13/2021 6:38 PM EDT Height 157.5 cm (5' 2 ) 05/13/2021 6:38 PM EDT Body Mass Index 32.92 05/13/2021 6:38 PM EDT Plan of Treatment Health Maintenance Due Date Last Done Comments Hepatitis C Virus Screening 1972 HIV Screening 1985 DTaP/Tdap/Td Vaccines (1 - Tdap) 12/22/1991 Hepatitis B Vaccines (1 of 3 - 19+ 3-dose series) 12/22/1991 Pap Smear (Ages 21-65) 1993 Mammogram 2012 Colonoscopy 2017 Pneumococcal Vaccines 50+ (1 of 1 - PCV) 2022 Zoster (Shingles) Vaccine (1 of 2) 2022 Influenza Vaccine 04/11/2024 COVID-19 Vaccine (1 - 2023-2 5 season) 2024 Pneumococcal Vaccine: Pediat bear (0-5 Years) and At-Risk Patients (6 to 49 Years) Aged Out No longer eligible b ased on patient's age to complete this topic Advance Directives * Full Code (Latest Code Status on File) Date Activated Date Inactivated Comments 05/24/2021 10:25 PM Care Teams Dispatcher Motor Vehicle Relationship Specialty Start Date End Date Pcp, No PCP - General General Medicine 05/13/21
--- OUTSIDE RECORDS SUMMARY | 2024-12-10 17:41 | XMS_ITS | Encounter Summary ---
Author Organization [employer] Address [address] [facility] 7[address] [place] [address] Care Team Providers Care Metalizing Supervisor Name Role Phone Tyesha Rogers MD Primary Care Provider [phone] Reason for Visit * Reason Comments Med Refill Encounter Details Date Type Department Care Team ([facility] st Contact Info) Description 11/29/2023 Refill [facility] MEDICINE [address] [place], [place] [phone] Tyesha Rogers MD [address] [place], [place] [phone] Social History Tobacco Use Types Packs/Day Years [...] Description 03/04/2025 1:30 PM EDT Office Visit [facility] OPTOMETRY [address] [place] [address] Raf, Katharine, OD [address] [place] [address] documented as of this encounter Visit Diagnoses Not on filedocumented in this encounter Additional Health Concerns Assessment Noted Time PHQ-9 Depression Total Score: 21 023 9:42 AM EDT documented as of this encounter Care Teams Metalizing Supervisor Relationship Specialty Start Date End Date Tyesha Rogers MD [address] [place] [address] PCP - General Family Medicine 04/25/19 documented as of this encounter
--- OUTSIDE RECORDS SUMMARY | 2024-12-10 17:41 | XMS_ITS | Encounter Summary ---
Author Organization [employer] Address [address] [facility] [address] [place] [address] Care Team Providers Care Medical Affairs Manager Name Role Phone Tyesha Rogers MD Primary Care Provider [phone] Reason for Visit * Reason Onset Date Comments Hospital Follow-up 05/29/2024 Encounter Details Date Type Department Care Team ([facility] st Contact Info) Description 05/29/2024 Telephone [facility] [address] [place] [address] Tyesha Rogers MD [address] [place], [place] [phone] Hospital Follow-up Social History Tobacco Use Types Packs/Day Years Used Date Smoking Tobacco: Every Day Cigarettes Passive Smoke Exposure: Current Alcohol Use Standard Drinks/Week Comments Yes 0 (1 standard drink = 0.6 oz pur e alcohol) Depression Answer Date Recorded Patient Health Questionnaire-9 Score 24 05/21/2024 Patient Health Questionnaire-9 Score 24 05/21/2024 Last PHQ-9: Questionnaire Data Not on file 0 05/21/2024 Housing Stability Answer Date Recorded What is [...] Date Recorded Patient Health Questionnaire-2 Score 6 05/21/2024 Comments Unknown Sex and Gender Information Value Date Recorded Sex Assigned at Female 07/11/2022 10:19 AM EDT Legal Sex Female 10:19 AM EDT Gender Identity Female 07/11/2022 10:19 AM EDT Sexual Orientation Choose not to disclose 2021 10:19 AM EDT documented as of this encounter Miscellaneous Notes * Telephone Encounter - Silvino Gilliland - 05/29/2024 3:00 PM EDT Tc from pt requesting a HDF appt. Hospital: [facility] Date of admission: 05/28/24 Discharge date: 05/29/24 Diagnosed: urticaria documented in this encounter Plan of Treatment Upcoming Encounters Date Type Department Care Team (Late st Contact Info) Description 03/04/2025 1:30 PM EDT Office Visit [facility] OPTOMETRY [address] [place] [address] Raf, Katharine, OD [address] [place] [address] documented as of this encounter Visit Diagnoses Not on filedocumented in this encounter Additional Health Concerns Assessment Noted Time PHQ-9 Depression Total Score: 24 024 10:42 AM EDT documented as of this encounter Care Teams Medical Affairs Manager Relationship Specialty Start Date End Date Tyesha Rogers MD [address] [place] [address] PCP - General Family Medicine 04/25/19 documented as of this encounter
--- OUTSIDE RECORDS SUMMARY | 2024-12-10 17:41 | XMS_ITS | Encounter Summary ---
Author Organization [employer] Address [address] [place] [id number] Care Team Providers Care Director Hris Name Role Phone Tyesha Rogers MD Primary Care Provider [phone] Reason for Referral * Consultation (Routine) - Closed Specialty Diagnoses / Procedures Referred By Contac t Referred To Contact Pharmacy Diagnoses SBO (small bowel obstruction) (CMS/HCC) Tati Neri PharmD [address] [place] [address] Phone: tel: fax: Referral ID Status Reason Start Date Expiration Date V isits Requested Visits Authorized [id number] Closed Continuity of Care 12/07/2023 12/06/2024 1 1 Encounter Details Date Type Department Care Team (Late st Contact Info) Description 12/07/2023 Orders Only [facility] MEDICINE [address] [place] [address] Tati Neri PharmD [address] [place], [place] [phone] SBO (small bowel obstruction) (CMS/HCC) (Primary Dx) Social History Tobacco Use Types Packs/Day Years [...] Description 03/04/2025 1:30 PM EDT Office Visit [facility] OPTOMETRY [address] [place] [address] Raf, Katharine, OD [address] [facility] [place] [address] Scheduled Referrals Name Type Priority Associated Diagnoses Orde r Schedule Referral to Pharmacy MT Outpatient Referral Routine SBO (small bowel obstruction) (CMS/HCC) Ordered: 12/07/2023 documented as of this encounter Visit Diagnoses Diagnosis SBO (small bowel obstruction) (CMS/HCC)- Primary Unspecified intestinal obstruction documented in this encounter Additional Health Concerns Assessment Noted Time PHQ-9 Depression Total Score: 21 023 9:42 AM EDT documented as of this encounter Care Teams Director Hris Relationship Specialty Start Date End Date Tyesha Rogers MD [address] [place] [phone] PCP - General Family Medicine 04/25/19 documented as of this encounter
--- OUTSIDE RECORDS SUMMARY | 2024-12-10 17:41 | XMS_ITS | Encounter Summary ---
Author Organization [employer] Address [address] [place] [address] 7t [place] [address] Care Team Providers Care Applied Behavior Science Specialist Name Role Phone Tyesha Rogers MD Primary Care Provider [phone] Reason for Referral * Consultation (Routine) - Closed Specialty Diagnoses / Procedures Referred By Contangel t Referred To Contact Diagnoses Type 2 diabetes mellitus with hyperglycemia, with long-term current use of insulin (CMS/HCC) Hypertension, unspecified type Multiple sclerosis (CMS/HCC) Tyesha Rogers MD [address] [place] [address] Phone: tel: fax: [address] [phone] Phone: tel: fax: Referral ID Status Reason Start Date Expiration Date V isits Requested Visits Authorized [id number] Closed Specialty Services Required 11/15/2024 11/15/2025 1 1 Encounter Details Date Type Department Care Team (Late st Contact Info) Description 11/15/2024 Orders Only [facility] MEDICINE [address] [place] [phone] Tyesha Rogers MD [address] [place] [phone] Type 2 diabetes mellitus with hyperglycemia, with long-term current use of insulin (CMS/HCC) (Primary Dx); Hypertension, unspecified type; Multiple sclerosis (CMS/HCC); Type 2 diabetes mellitus with hyperglycemia (CMS/HCC); Type 2 diabetes mellitus with hyperglycemia, with long-term current use of insulin ([facility]) Social History Tobacco Use Types Packs/Day Years Used Date Smoking Tobacco: Every Day Cigarettes Passive Smoke Exposure: Current Alcohol Use Standard Drinks/Week Comments Yes 0 (1 standard drink = 0.6 oz pur e alcohol) Depression Answer Date Recorded Patient Health Questionnaire-9 Score 15 11/07/2024 Patient Health Questionnaire-9 Score 15 11/07/2024 Last PHQ-9: Questionnaire Data Not on file 0 11/07/2024 Housing Stability Answer Date Recorded What is [...] Answer Date Recorded Patient Health Questionnaire-2 Score 4 11/07/2024 Comments Unknown Sex and Gender Information Value Date Recorded Sex Assigned at Female 07/11/2022 10:19 AM EDT Legal Sex Female 10:19 AM EDT Gender Identity Female 07/11/2022 10:19 AM EDT Sexual Orientation Choose not to disclose 2021 10:19 AM EDT documented as of this encounter Plan of Treatment Upcoming Encounters Date Type Department Care Team ([facility] st Contact Info) Description 03/04/2025 1:30 PM EDT Office Visit [facility] OPTOMETRY [address] [place] [phone] Katharine Carbone, OD [address] [place] [address] Scheduled Referrals Name Type Priority Associated Diagnoses Orde r Schedule Referral to Care Management Outpatient Referral Routine Type 2 diabetes mellitus with hyperglycemia, with long-term current use of insulin (CMS/HCC) Hypertension, unspecified type Multiple sclerosis (CMS/HCC) Expected: 11/15/2024 (Approximate), Expires: 11/15/2025 documented as of this encounter Visit Diagnoses Diagnosis Type 2 diabetes mellitus with hyperglycemia, with long-term current use of insulin (CMS/HCC)- Primary Hypertension, unspecified type Multiple sclerosis (CMS/HCC) Multiple sclerosis Type 2 diabetes mellitus with hyperglycemia (CMS/HCC) documented in this encounter Additional Health Concerns Assessment Noted Time PHQ-9 Depression Total Score: 15 025 11:52 AM EST documented as of this encounter Care Teams Applied Behavior Science Specialist Relationship Specialty Start Date End Date Tyesha Rogers MD [address] [place] [address] PCP - General Family Medicine 04/25/19 documented as of this encounter
--- OUTSIDE RECORDS SUMMARY | 2024-12-10 17:41 | XMS_ITS | Encounter Summary ---
Author Organization [facility] Address [address] [place] [address] Care Team Providers Care Graduate Teaching Assistant Name Role Phone Pcp, No Primary Care Provider Unavailabl e Encounter Details Date Type Department Care Team (Late st Contact Info) Description 05/26/2021 Scanned Document [facility] NEUROLOGY SCAN Neurology, Scan Social History Tobacco Use Types Packs/Day Years Used Date Smoking Tobacco: Every Day Cigarettes Alcohol Use Standard Drinks/Week Comments Yes 0 (1 standard drink = 0.6 oz pur e alcohol) occasional Sex and Gender Information Value Date Recorded Sex Assigned at Not on file Gender Identity Not on file Sexual Orientation Not on file COVID-19 Exposure Response Date Recorded In the last month, have you been in contact with someone who was confirmed or suspected to have Coronavirus / COVID-19? No / Unsure 05/24/2021 7:12 PM EDT documented as of this encounter Plan of Treatment Not on file documented as of this encounter Visit Diagnoses Not on filedocumented in this encounter Care Teams Graduate Teaching Assistant Relationship Specialty Start Date End Date Pcp, No PCP - General General Medicine 05/13/21 documented as of this encounter
--- OUTSIDE RECORDS SUMMARY | 2024-12-10 17:41 | XMS_ITS | Clinical Summary ---
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 HEMETOLOGY METHOD 10/24/2024 8:[address] [facility] MPV 10.1 7.0 - 11.0 FL LAB HEMETOLOGY METHOD 10/24/2024 8:[address] [facility] NRBC 0.0 <1.0 % LAB HEMETOLOGY METHOD 10/24/2024 8:[address] [facility] NRBC Absolute 0.00 <0.10 K/mcL LAB HEMETOLOGY METHOD 10/24/2024 8:[address] [facility] Neutrophils Relative 62.1 % LAB HEMETOLOGY METHOD 10/24/2024 8:[address] [facility] Lymphocytes Relative 23.8 % LAB HEMETOLOGY METHOD 10/24/2024 8:[address] [facility] Monocytes Relative 9.8 % LAB HEMETOLOGY METHOD 10/24/2024 8:[address] [facility] Eosinophils Relative 3.7 % LAB HEMETOLOGY METHOD 10/24/2024 8:[address] [facility] Basophils Relative 0.4 % LAB HEMETOLOGY METHOD 10/24/2024 8:[address] [facility] Immature Granulocytes Relative 0.2 % LAB HEMETOLOGY METHOD 10/24/2024 8:[address] [facility] Neutrophils Absolute 3.36 1.50 - 7.00 K/mcL LAB HEMETOLOGY METHOD 10/24/2024 8:[address] [facility] Lymphocytes Absolute 1.29 1.00 - 5.00 K/mcL LAB HEMETOLOGY METHOD 10/24/2024 8:[address] [facility] Monocytes Absolute 0.53 0.20 - 1.00 K/mcL LAB HEMETOLOGY METHOD 10/24/2024 8:[address] [facility] Eosinophils Absolute 0.20 0.00 - 0.50 K/mcL LAB HEMETOLOGY METHOD 10/24/2024 8:[address] [facility] Basophils Absolute 0.02 0.00 - 0.20 K/mcL LAB HEMETOLOGY METHOD 10/24/2024 8:[address] [facility] Immature Granulocytes Absolute 0.01 0.00 - 0.03 K/mcL LAB HEMETOLOGY METHOD 10/24/2024 8:[address] [facility] Blood Venous blood specimen / Unknown Venipuncture / Unknown 10/24/2024 7:43 PM EST 10/24/2024 7:54 PM EST us Kayleigh Rivero DO LAB BLOOD ORDERABLES Final Res ult [facility] [address] [place] [address], [place] [phone] * Magnesium (10/24/2024 7:43 PM EST) Only the most recent of2 resultswithin the time period is included. [facility] Magnesium 2.0 1.9 - 2.6 mg/dL LAB CHEMISTRY METHOD 10/24/2024 8:36 PM EST [facility] Blood Venous blood specimen / Unknown Venipuncture / Unknown 10/24/2024 7:43 PM EST 10/24/2024 7:54 PM EST Kayleigh Rivero DO LAB BLOOD ORDERABLES Final Res ult Performing Organization Address City/[facility]/ZIP Co de Phone Number [facility] [address] [place] [address], [place] [phone] * Lipase (10/24/2024 7:43 PM EST) [facility] Lipase 43 13 - 75 unit/L LAB CHEMISTRY METHOD 10/24/2024 8:36 PM EST [facility] Blood Venous blood specimen / Unknown Venipuncture / Unknown 10/24/2024 7:43 PM EST 10/24/2024 7:54 PM EST Kayleigh Rivero DO LAB BLOOD ORDERABLES Final Res ult Performing Organization Address City/[facility]/ZIP Co de Phone Number [facility] [address] [place] [address], [place] [phone] * (ABNORMAL) Comprehensive metabolic panel (10/24/2024 7:43 PM EST) [facility] Sodium 133 133 - 145 mmol/L LAB CHEMISTRY METHOD 10/24/2024 8:36 PM EST [facility] Potassium 4.5 3.5 - 5.5 mmol/L LAB CHEMISTRY METHOD 10/24/2024 8:36 PM EST [facility] Chloride 103 96 - 110 mmol/L LAB CHEMISTRY METHOD 10/24/2024 8:[address] [facility] CO2 26 21 - 32 mmol/L LAB CHEMISTRY METHOD 10/24/2024 8:[address] [facility] Anion Gap 4 3 - 11 LAB CHEMISTRY METHOD 10/24/2024 8:[address] [facility] Glucose 296(H) 70 - 100 mg/dL LAB CHEMISTRY METHOD 10/24/2024 8:[address] [facility] BUN 15 5 - 25 mg/dL LAB CHEMISTRY METHOD 10/24/2024 8:[address] [facility] Creatinine 0.85 0.50 - 1.10 mg/dL LAB CHEMISTRY METHOD 10/24/2024 8:[address] [facility] eGFR 83 >=60 mL/min/1. 73m2 LAB CHEMISTRY METHOD 10/24/2024 8:[address] [facility] Comment:Calculation based on the??Chronic Kidney Disease Epidemiology Collaboration (CKD-EPI) equation refit??without adjustment for race. BUN/Creatinine Ratio 17.6 LAB CHEMISTRY METHOD 10/24/2024 8:[address] [facility] Calcium 8.9 8.5 - 10.5 mg/dL LAB CHEMISTRY METHOD 10/24/2024 8:[address] [facility] AST (SGOT) 19 10 - 42 unit/L LAB CHEMISTRY METHOD 10/24/2024 8:[address] [facility] ALT (SGPT) 31 10 - 60 unit/L LAB CHEMISTRY METHOD 10/24/2024 8:[address] [facility] Alkaline Phosphatase 143(H) 42 - 121 unit/L LAB CHEMISTRY METHOD 10/24/2024 8:[address] [facility] Total Protein 6.8 6.0 - 8.0 g/dL LAB CHEMISTRY METHOD 10/24/2024 8:[address] [facility] Albumin 3.1(L) 3.2 - 5.0 g/dL LAB CHEMISTRY METHOD 10/24/2024 8:36 PM EST [facility] Total Bilirubin 0.2 0.0 - 1.4 mg/dL LAB CHEMISTRY METHOD 10/24/2024 8:36 PM EST [facility] Blood Venous blood specimen / Unknown Venipuncture / Unknown 10/24/2024 7:43 PM EST 10/24/2024 7:54 PM EST us Kayleigh Rivero DO LAB BLOOD ORDERABLES Final Res ult [facility] [address] [place] [address], [place] [phone] * XR Chest 1 View (10/18/2024 5:28 PM EST) Anatomical Region Laterality Modality Body Radiographic Stephanie ging 10/19/2024 9:25 AM EST Impressions 10/19/2024 9:27 AM EST Unremarkable chest exam. No change from 06/01/2024. -------- FINAL REPORT -------- Dictated By: Heath Guajardo Dictated Date: 10/19/2024 09:25 ET Assigned Physician: Heath Guajardo Reviewed and Electronically Signed By: Heath Guajardo Signed Date: 10/19/2024 09:27 ET Workstation ID: [id number] Transcribed By: Self Edit Transcribed Date: 10/19/2024 09:25 ET Narrative 10/19/2024 9:27 AM EST Examination: Chest AP sitting portable. CLINICAL INDICATION: SOB. COMPARISON: This 2 views 06/01/2024. FINDINGS: The lungs are well-expanded and clear acute pneumonic process. The heart size and pulmonary vascularity is normal. No pleural effusion or thickening. No gross bony abnormality seen. Procedure Note Heath Guajardo MD - 10/19/2024 Examination: Chest AP sitting portable. CLINICAL INDICATION: SOB. COMPARISON: This 2 views 06/01/2024. FINDINGS: The lungs are well-expanded and clear acute pneumonic process.The heart size and pulmonary vascularity is normal. No pleural effusion orthickening. No gross bony abnormality seen. IMPRESSION: Unremarkable chest exam. No change from 06/01/2024. -------- FINAL REPORT -------- Dictated By: Heath Guajardo Dictated Date: 10/19/2024 09:25 ET Assigned Physician: Heath Guajardo Reviewed and Electronically Signed By: Heath Guajardo Signed Date: 10/19/2024 09:27 ET Workstation ID: [id number] Transcribed By: Self Edit Transcribed Date: 10/19/2024 09:25 ET us Tam Ennis MD IMG XR PROCEDURES Final Result * Beta hydroxybutyrate (10/18/2024 5:17 PM EST) [facility] Beta-Hydroxybu tyrate 1.4 0.2 - 2.8 mg/dL LAB CHEMISTRY METHOD 10/18/2024 6:18 PM EST [facility] Blood Venous blood specimen / Unknown Venipuncture / Unknown 10/18/2024 5:17 PM EST 10/18/2024 5:43 PM EST Tam Ennis MD LAB BLOOD ORDERABLES Final Resu lt [facility] [address] [place] [address], * (ABNORMAL) Blood gas, venous (10/18/2024 5:17 PM EST) [facility] pH, Reji 7.40 7.32 - 7.42 pH 10/18/2024 5:50 PM EST [facility] pCO2, Reji 38(L) 41 - 51 mmHg 10/18/2024 5:50 PM EST [facility] pO2, Reji 69(H) 25 - 40 mmHg 10/18/2024 5:50 PM EST [facility] HCO3, Venous 24.1 22.0 - 26.0 mmol/L 10/18/2024 5:[address] [facility] O2 Sat, Reji 96.6 % 10/18/2024 5:[address] [facility] Base Excess, Reji -1.0 -2.0 - 2.0 mmol/L 10/18/2024 5:[address] [facility] Blood Venous blood specimen / Unknown Venipuncture / Unknown 10/18/2024 5:17 PM EST 10/18/2024 5:42 PM EST us Tam Ennis MD LAB BLOOD ORDERABLES Final Resu lt [facility] [address] [place] [address], [place] [phone] * (ABNORMAL) Hepatic function panel (10/18/2024 5:17 PM EST) Total Protein 6.5 6.0 - 8.0 g/dL LAB CHEMISTRY METHOD 10/18/2024 6:[address] [facility] Albumin 3.1(L) 3.2 - 5.0 g/dL LAB CHEMISTRY METHOD 10/18/2024 6:[address] [facility] Total Bilirubin 0.2 0.0 - 1.4 mg/dL LAB CHEMISTRY METHOD 10/18/2024 6:[address] [facility] Bilirubin, Direct <0.1 0.0 - 0.3 mg/dL LAB CHEMISTRY METHOD 10/18/2024 6:[address] [facility] Bilirubin, Indirect LAB CHEMISTRY METHOD 10/18/2024 6:[address] [facility] Comment:Unable to calculate Indirect Bilirubin. ALT (SGPT) 22 10 - 60 unit/L LAB CHEMISTRY METHOD 10/18/2024 6:[address] [facility] AST (SGOT) 16 10 - 42 unit/L LAB CHEMISTRY METHOD 10/18/2024 6:[address] [facility] Alkaline Phosphatase 190(H) 42 - 121 unit/L LAB CHEMISTRY METHOD 10/18/2024 6:[address] [facility] Blood Venous blood specimen / Unknown Venipuncture / Unknown 10/18/2024 5:17 PM EST 10/18/2024 5:43 PM EST Tam Ennis MD LAB BLOOD ORDERABLES Final Resu lt [facility] [address] [place] [address], [place] [phone] * (ABNORMAL) Basic metabolic panel (10/18/2024 5:17 PM EST) Sodium 133 133 - 145 mmol/L LAB CHEMISTRY METHOD 10/18/2024 6:[address] [facility] Potassium 4.1 3.5 - 5.5 mmol/L LAB CHEMISTRY METHOD 10/18/2024 6:[address] [facility] Comment:Hemolysis present Chloride 103 96 - 110 mmol/L LAB CHEMISTRY METHOD 10/18/2024 6:[address] [facility] CO2 26 21 - 32 mmol/L LAB CHEMISTRY METHOD 10/18/2024 6:[address] [facility] Anion Gap 4 3 - 11 LAB CHEMISTRY METHOD 10/18/2024 6:[address] [facility] Glucose 363(H) 70 - 100 mg/dL LAB CHEMISTRY METHOD 10/18/2024 6:[address] [facility] BUN 16 5 - 25 mg/dL LAB CHEMISTRY METHOD 10/18/2024 6:[address] [facility] Creatinine 0.71 0.50 - 1.10 mg/dL LAB CHEMISTRY METHOD 10/18/2024 6:[address] [facility] eGFR 103 >=60 mL/min/1. 73m2 LAB CHEMISTRY METHOD 10/18/2024 6:[address] [facility] Comment:Calculation based on the??Chronic Kidney Disease Epidemiology Collaboration (CKD-EPI) equation refit??without adjustment for race. BUN/Creatinine Ratio 22.5 LAB CHEMISTRY METHOD 10/18/2024 6:[address] [facility] Calcium 9.1 8.5 - 10.5 mg/dL LAB CHEMISTRY METHOD 10/18/2024 6:[address] [facility] Blood Venous blood specimen / Unknown Venipuncture / Unknown 10/18/2024 5:17 PM EST 10/18/2024 5:43 PM EST Tam Ennis MD LAB BLOOD ORDERABLES Final Resu lt [facility] [address] [place] [address], [place] [phone] * (ABNORMAL) Urinalysis with reflex microscopic and culture (10/18/2024 5:14 PM EST) Specific [place] Urine 1.038(H) 1.003 - 1.030 LAB URINALYSIS - AUTOMATED METHOD 10/18/2024 5:[address] [facility] pH, Urine 6.0 5.0 - 8.0 pH LAB URINALYSIS - AUTOMATED METHOD 10/18/2024 5:[address] [facility] Leukocytes, Urine Negative Negative LAB URINALYSIS - AUTOMATED METHOD 10/18/2024 5:[address] [facility] Nitrite, Urine Negative Negative LAB URINALYSIS - AUTOMATED METHOD 10/18/2024 5:[address] [facility] Protein, Urine Negative <=Trace mg/dL LAB URINALYSIS - AUTOMATED METHOD 10/18/2024 5:[address] [facility] Glucose, Urine >=1000(A) Negative mg/dL LAB URINALYSIS - AUTOMATED METHOD 10/18/2024 5:[address] [facility] Ketones, Urine Negative Negative mg/dL LAB URINALYSIS - AUTOMATED METHOD 10/18/2024 5:48 PM EST [facility] Urobilinogen , Urine 0.2 0.2 - 1.0 mg/dL LAB URINALYSIS - AUTOMATED METHOD 10/18/2024 5:[address] [facility] Bilirubin, Urine Negative Negative LAB URINALYSIS - AUTOMATED METHOD 10/18/2024 5:[address] [facility] Blood, Urine Negative Negative LAB URINALYSIS - AUTOMATED METHOD 10/18/2024 5:[address] [facility] Urine Urine specimen obtained by clean catch procedure / Unknown Non-blood Collection / Unknown 10/18/2024 5:14 PM EST 10/18/2024 5:43 PM EST Tam Ennis MD LAB URINE ORDERABLES Final Resu lt Performing Organization Address City/[facility]/ZIP Co de Phone Number [facility] [address] [place] [address], [place] [phone] * Pantoja urine culture tube (10/18/2024 5:14 PM EST) Extra Tube Hold for add-ons. 10/18/2024 7:01 PM EST [facility] Comment:Auto resulted. Urine Urine specimen obtained by clean catch procedure / Unknown Non-blood Collection / Unknown 10/18/2024 5:14 PM EST 10/18/2024 5:43 PM EST us Tam Ennis MD LAB URINE ORDERABLES Final Resu lt Performing Organization Address City/[facility]/ZIP Co de Phone Number [facility] [address] [place] [address], [place] [phone] * Lipid panel (11/16/2016) Triglycerides 0 mg/dL Comment:abstracted, no inter pretation Cholesterol 0 mg/dL Comment:abstracted, no inter pretation HDL 0 mg/dL Comment:abstracted, no inter pretation LDL Cholesterol 0 mg/dL Comment:abstracted, no inter pretation Blood Venous blood specimen / Unknown [facility] Provider LAB BLOOD ORDERABLES Yael l Result * Urine Albumin Creatinine Ratio (09/19/2016) Pathologist [facility] Urine Albumin Creatinine Ratio abstracted Result [facility] Provider HEALTH MAINTENANCE Final Result * (ABNORMAL) Hemoglobin A1c (09/19/2016) Pathologist [facility] Hemoglobin A1C 9.1(A) 4.0 - 6.0 % Blood Venous blood specimen / Unknown Result [facility] Provider LAB BLOOD ORDERABLES Yael l Result * Cervical Cancer Screening: HPV (03/27/2015) Pathologist [facility] Cervical Cancer Screening: HPV abstracted, negative Result [facility] Provider HEALTH MAINTENANCE Final Result from Last 3 Months or Most Recently Relevant to Health Maintenance Insurance MEDICAID - [place] Advance Directives Documents on File Type Date Recorded Patient Global Head [employer] Expl anation Health Care Decision (hx) 05/06/2023 HE ALTH CARE PROXY Health Care Decision (hx) 05/06/2023 HE ALTH CARE PROXY Health Care Decision (hx) 05/06/2023 HE ALTH CARE PROXY Health Care Decision (hx) 05/06/2023 HE ALTH CARE PROXY Health Care Decision (hx) 05/06/2023 HE ALTH CARE PROXY Health Care Decision (hx) 05/06/2023 HE ALTH CARE PROXY Health Care Decision (hx) 05/06/2023 HE ALTH CARE PROXY Health Care Decision (hx) 12/27/2021 AD KASPER DIRECTIVE Health Care Decision (hx) 12/27/2021 AD KASPER DIRECTIVE Health Care Decision (hx) 12/27/2021 AD KASPER DIRECTIVE Health Care Decision (hx) 12/27/2021 AD KASPER DIRECTIVE Health Care Decision (hx) 12/27/2021 AD KASPER DIRECTIVE Health Care Decision (hx) 12/27/2021 AD KASPER DIRECTIVE Health Care Decision (hx) 12/27/2021 AD KASPER DIRECTIVE Health Care Decision (hx) 12/27/2021 AD KASPER DIRECTIVE Health Care Decision (hx) 12/27/2021 AD KASPER DIRECTIVE Health Care Decision (hx) 12/27/2021 AD KASPER DIRECTIVE Health Care Decision (hx) 12/27/2021 AD KASPER DIRECTIVE Health Care Decision (hx) 12/27/2021 AD KASPER DIRECTIVE Health Care Decision (hx) 12/27/2021 AD KASPER DIRECTIVE Health Care Decision (hx) 12/27/2021 AD KASPER DIRECTIVE Health Care Decision (hx) 12/27/2021 AD KASPER DIRECTIVE Health Care Decision (hx) 12/27/2021 AD KASPER DIRECTIVE Health Care Decision (hx) 12/27/2021 AD KASPER DIRECTIVE Health Care Decision (hx) 12/27/2021 AD KASPER DIRECTIVE Health Care Decision (hx) 12/27/2021 AD KASPER DIRECTIVE Health Care Decision (hx) 12/27/2021 AD KASPER DIRECTIVE Health Care Decision (hx) 12/27/2021 AD KASPER DIRECTIVE Health Care Decision (hx) 07/14/2019 AD KASPER DIRECTIVE Health Care Decision (hx) 07/14/2019 AD KASPER DIRECTIVE Health Care Decision (hx) 07/14/2019 AD KASPER DIRECTIVE Health Care Decision (hx) 07/14/2019 AD KASPER DIRECTIVE Health Care Decision (hx) 07/14/2019 AD KASPER DIRECTIVE Health Care Decision (hx) 07/14/2019 AD KASPER DIRECTIVE Health Care Decision (hx) 07/14/2019 AD KASPER DIRECTIVE Health Care Decision (hx) 07/14/2019 AD KASPER DIRECTIVE Health Care Decision (hx) 07/14/2019 AD KASPER DIRECTIVE Health Care Decision (hx) 07/14/2019 AD KASPER DIRECTIVE Health Care Decision (hx) 07/14/2019 AD KASPER DIRECTIVE Health Care Decision (hx) 07/14/2019 AD KASPER DIRECTIVE Health Care Decision (hx) 07/14/2019 AD KASPER DIRECTIVE Health Care Decision (hx) 07/14/2019 AD KASPER DIRECTIVE Health Care Decision (hx) 07/14/2019 AD KASPER DIRECTIVE Health Care Decision (hx) 07/14/2019 AD KASPER DIRECTIVE Health Care Decision (hx) 07/14/2019 AD KASPER DIRECTIVE Health Care Decision (hx) 07/14/2019 AD KASPER DIRECTIVE Health Care Decision (hx) 07/14/2019 AD KASPER DIRECTIVE Health Care Decision (hx) 07/14/2019 AD KASPER DIRECTIVE Health Care Decision (hx) 07/14/2019 AD KASPER DIRECTIVE Health Care Decision (hx) 07/14/2019 AD KASPER DIRECTIVE Health Care Decision (hx) 07/14/2019 AD KASPER DIRECTIVE Health Care Decision (hx) 07/14/2019 AD KASPER DIRECTIVE Health Care Decision (hx) 07/14/2019 AD KASPER DIRECTIVE Health Care Decision (hx) 07/14/2019 AD KASPER DIRECTIVE Health Care Decision (hx) 07/14/2019 AD KASPER DIRECTIVE Health Care Decision (hx) 08/17/2015 AD KASPER DIRECTIVE Health Care Decision (hx) 08/17/2015 AD KASPER DIRECTIVE Health Care Decision (hx) 08/17/2015 AD KASPER DIRECTIVE Health Care Decision (hx) 08/17/2015 AD KASPER DIRECTIVE Health Care Decision (hx) 08/17/2015 AD KASPER DIRECTIVE Health Care Decision (hx) 08/17/2015 AD KASPER DIRECTIVE Health Care Decision (hx) 08/17/2015 AD KASPER DIRECTIVE Health Care Decision (hx) 08/17/2015 AD KASPER DIRECTIVE Health Care Decision (hx) 08/17/2015 AD KASPER DIRECTIVE Health Care Decision (hx) 08/17/2015 AD KASPER DIRECTIVE Health Care Decision (hx) 08/17/2015 AD KASPER DIRECTIVE Health Care Decision (hx) 08/17/2015 AD KASPER DIRECTIVE Health Care Decision (hx) 08/17/2015 AD KASPER DIRECTIVE Health Care Decision (hx) 08/17/2015 AD KASPER DIRECTIVE Health Care Decision (hx) 08/17/2015 AD KASPER DIRECTIVE Health Care Decision (hx) 08/17/2015 AD KASPER DIRECTIVE Health Care Decision (hx) 08/17/2015 AD KASPER DIRECTIVE Health Care Decision (hx) 08/17/2015 AD KASPER DIRECTIVE Health Care Decision (hx) 08/17/2015 AD KASPER DIRECTIVE Health Care Decision (hx) 08/17/2015 AD KASPER DIRECTIVE Health Care Decision (hx) 08/17/2015 AD KASPER DIRECTIVE Health Care Decision (hx) 08/17/2015 AD KASPER DIRECTIVE Health Care Decision (hx) 08/17/2015 AD KASPER DIRECTIVE Health Care Decision (hx) 08/17/2015 AD KASPER DIRECTIVE Health Care Decision (hx) 08/17/2015 AD KASPER DIRECTIVE Health Care Decision (hx) 08/17/2015 AD KASPER DIRECTIVE Health Care Decision (hx) 08/17/2015 AD KASPER DIRECTIVE Health Care Decision (hx) 08/17/2015 AD KASPER DIRECTIVE Health Care Decision (hx) 08/17/2015 AD KASPER DIRECTIVE Health Care Decision (hx) 08/17/2015 AD KASPER DIRECTIVE Health Care Decision (hx) 08/17/2015 AD KASPER DIRECTIVE Health Care Decision (hx) 08/17/2015 AD KASPER DIRECTIVE Health Care Decision (hx) 08/17/2015 AD KASPER DIRECTIVE Health Care Decision (hx) 08/17/2015 AD KASPER DIRECTIVE Health Care Decision (hx) 08/17/2015 AD KASPER DIRECTIVE Health Care Decision (hx) 08/17/2015 AD KASPER DIRECTIVE Health Care Decision (hx) 08/17/2015 AD KASPER DIRECTIVE Health Care Decision (hx) 08/17/2015 AD KASPER DIRECTIVE Health Care Decision (hx) 08/17/2015 AD KASPER DIRECTIVE Health Care Decision (hx) 08/17/2015 AD KASPER DIRECTIVE Health Care Decision (hx) 08/17/2015 AD KASPER DIRECTIVE Health Care Decision (hx) 08/17/2015 AD KASPER DIRECTIVE Health Care Decision (hx) 08/17/2015 AD KASPER DIRECTIVE Health Care Decision (hx) 08/17/2015 AD KASPER DIRECTIVE Health Care Decision (hx) 08/17/2015 AD KASPER DIRECTIVE Health Care Decision (hx) 08/17/2015 AD KASPER DIRECTIVE Health Care Decision (hx) 08/17/2015 AD KASPER DIRECTIVE Health Care Decision (hx) 08/17/2015 AD KASPER DIRECTIVE Health Care Decision (hx) 08/17/2015 AD KASPER DIRECTIVE Care Teams Jewelry Casting Model Maker Relationship Specialty Start Date End Date Tyesha Rogers MD [address] [place] [phone] PCP - General 12/02/21
--- OUTSIDE RECORDS SUMMARY | 2024-12-10 17:41 | XMS_ITS | Encounter Summary ---
Author Organization [employer] Address [address] [place] [address] [address] [place] [address] Care Team Providers Care Combat Systems Engineer Name Role Phone Tyesha Rogers MD Primary Care Provider [phone] Encounter Details Date Type Department Care Team ([facility] Contact Info) Description 08/30/[address] [facility] [address] [place], [place] [phone] Tyesha Rogers MD [address] [place] [address] Social History Tobacco Use Types Packs/Day Years Used Date Smoking Tobacco: Every Day Cigarettes Alcohol Use Standard Drinks/Week Comments Yes 0 (1 standard drink = 0.6 oz pur e alcohol) PHQ-2 Answer Date Recorded Patient Health Questionnaire-2 Score 0 08/30/2022 Depression Answer Date Recorded Patient Health Questionnaire-9 Score 9 08/18/2022 Depression Answer Date Recorded Patient Health Questionnaire-2 Score 0 08/30/2022 Comments Unknown Sex and Gender Information Value Date Recorded Sex Assigned at Female 07/11/2022 10:19 AM EDT Legal Sex Female 10:19 AM EDT Gender Identity Female 07/11/2022 10:19 AM EDT Sexual Orientation Choose not to disclose 2021 10:19 AM EDT COVID-19 Exposure Response Date Recorded In the last 10 days, have yo u been in contact with someone who was confirmed or suspected to have Coronavirus/COVID-19? No / Unsure 09/02/2022 9:41 AM EST documented as of this encounter Plan of Treatment Upcoming Encounters Date Type Department Care Team (Late Contact Info) Description 03/04/2025 1:30 PM EDT Office Visit [facility] [address] [place] [address] Katharine Carbone, OD [address] [place] [address] documented as of this encounter Visit Diagnoses Not on filedocumented in this encounter Additional Health Concerns Assessment Noted Time PHQ-9 Depression Total Score: 9 08/18/20 22 11:40 AM EST documented as of this encounter Care Teams Combat Systems Engineer Relationship Specialty Start Date End Date Tyesha Rogers MD [address] [place] [address] PCP - General Family Medicine 04/25/19 documented as of this encounter
--- OUTSIDE RECORDS SUMMARY | 2024-12-10 17:41 | XMS_ITS | Encounter Summary ---
Author Organization [employer] Address [address] [facility] [address] [place] [address] Care Team Providers Care V Belt Builder Name Role Phone Tyesha Rogers MD Primary Care Provider Encounter Details Date Type Department Care Team ([facility] st Contact Info) Description 11/01/2023 Telephone [facility] [address] [place], [place] [phone] Tyesha Rogers MD [address] [place], [place] [phone] Social History Tobacco Use Types Packs/Day Years [...] Description 03/04/2025 1:30 PM EDT Office Visit [facility] [address] [place] [address] Raf, Katharine, OD [address] [place] [address] documented as of this encounter Visit Diagnoses Not on filedocumented in this encounter Additional Health Concerns Assessment Noted Time PHQ-9 Depression Total Score: 21 023 9:42 AM EDT documented as of this encounter Care Teams V Belt Builder Relationship Specialty Start Date End Date Tyesha Rogers MD [address] [place] [address] PCP - General Family Medicine 04/25/19 documented as of this encounter
--- OUTSIDE RECORDS SUMMARY | 2024-12-10 17:41 | XMS_ITS | Encounter Summary ---
Author Organization [employer] Address [address] [facility] 7t [place] [address] Care Team Providers Care Bail Bonding Agent Name Role Phone Tyesha Rogers MD Primary Care Provider [phone] Encounter Details Date Type Department Care Team ([facility] st Contact Info) Description 10/29/2024 Orders Only [facility] [address] [place], [place] [phone] ProviderJhony MD Social History Tobacco Use Types Packs/Day Years Used Date Smoking Tobacco: Every Day Cigarettes Passive Smoke Exposure: Current Alcohol Use Standard Drinks/Week Comments Yes 0 (1 standard drink = 0.6 oz pur e alcohol) Depression Answer Date Recorded Patient Health Questionnaire-9 Score 21 08/21/2024 Patient Health Questionnaire-9 Score 21 08/21/2024 Last PHQ-9: Questionnaire Data Not on file 1 10/22/2023 Housing Stability Answer Date Recorded What is [...] Date Recorded Patient Health Questionnaire-2 Score 6 08/21/2024 Comments Unknown Sex and Gender Information Value [...] Description 03/04/2025 1:30 PM EDT Office Visit [facility] [address] [place], [place] [phone] Raf, Megan, OD 230 [place] [address] documented as of this encounter Procedures Procedure Name Priority Date/Time Associated Diagnosis Comments CT ABDOMEN PELVIS WO CONTRAST Routine 10/25/2024 9:20 AM EST documented in this encounter Results * CT Abdomen Pelvis w/o Contrast (10/25/2024 9:20 AM EST) Anatomical Region Laterality Modality Body, Pelvis, Abdomen Computed T omography us Historical Provider MD MAURER CT PROCEDURES Final R esult documented in this encounter Visit Diagnoses Not on filedocumented in this encounter Additional Health Concerns Assessment Noted Time PHQ-9 Depression Total Score: 21 024 8:56 AM EST documented as of this encounter Care Teams Bail Bonding Agent Relationship Specialty Start Date End Date Tyesha Rogers MD 230 [place] [address] PCP - General Family Medicine 04/25/19 documented as of this encounter
--- OUTSIDE RECORDS SUMMARY | 2024-12-10 17:41 | XMS_ITS | Encounter Summary ---
Author Organization [employer] Address [address] [facility] 7t [place] [address] Care Team Providers Care Campaign Management Specialist Name Role Phone Tyesha Rogers MD Primary Care Provider [phone] Reason for Visit * Reason Comments Med Refill Encounter Details Date Type Department Care Team (Late st Contact Info) Description 01/22/2024 Refill [facility] 230 [place], [place] [phone] Tyesha Rogers MD 230 [place], [place] [phone] Other chronic pain Social History Tobacco Use Types Packs/Day Years [...] 1:30 PM EDT Office Visit [facility] [address] [place] [address] Raf, Katharine, OD [address] [place] [address] documented as of this encounter Visit Diagnoses Diagnosis Other chronic pain documented in this encounter Additional Health Concerns Assessment Noted Time PHQ-9 Depression Total Score: 21 024 10:41 AM EDT documented as of this encounter Care Teams Campaign Management Specialist Relationship Specialty Start Date End Date Tyesha Rogers MD 230 [place] [address] PCP - General Family Medicine 04/25/19 documented as of this encounter
--- OUTSIDE RECORDS SUMMARY | 2024-12-10 17:41 | XMS_ITS | Encounter Summary ---
Author Organization [employer] Address [address] [facility] 7t [place] [address] Care Team Providers Care Warehouse Shipping Supervisor Name Role Phone Tyesha Rogers MD Primary Care Provider Reason for Visit * Reason Comments Med Refill Encounter Details Date Type Department Care Team (Late st Contact Info) Description 11/23/[address] [facility] [address] [place], [place] [phone] Tyesha Rogers MD 230 [place], [place] [phone] Other chronic pain Social History Tobacco Use [...] Description 03/04/2025 1:30 PM EDT Office Visit [facility] [address] [place] [address] Katharine Carbone, OD 230 [place] [address] documented as of this encounter Visit Diagnoses Diagnosis Other chronic pain documented in this encounter Additional Health Concerns Assessment Noted Time PHQ-9 Depression Total Score: 15 025 11:52 AM EST documented as of this encounter Care Teams Warehouse Shipping Supervisor Relationship Specialty Start Date End Date Tyesha Rogers MD 230 [place] [address] PCP - General Family Medicine 04/25/19 documented as of this encounter
--- OUTSIDE RECORDS SUMMARY | 2024-12-10 17:41 | XMS_ITS | Encounter Summary ---
Author Organization [employer] Address [address] [place] [address] 7 [place] [address] Care Team Providers Care American History Teacher Name Role Phone Tyesha Rogers MD Primary Care Provider [phone] Reason for Visit * Reason Onset Date Comments Order(s) 09/06/2023 Encounter Details Date Type Department Care Team ([facility] Contact Info) Description 09/06/2023 Telephone [facility]INE [address] [place] [address] Tyesha Rogers MD 230 [place], [place] [phone] Order(s) Social History Tobacco Use Types Packs/Day Years [...] encounter Miscellaneous Notes * Telephone Encounter - Salvador Covarrbuias - 09/07/2023 9:17 AM EST Please disregard previous message, Pharmacist [employer] faxed orders. * Telephone Encounter - Silvino Gilliland - 09/06/2023 2:15 PM EST Tc from [place] working with [facility] requesting order for diagnostic mammogram and ultrasound bi lateral 09/08/23 at 1:00 pm. If any questions please contact [place] at [phone] documented in this encounter Plan of Treatment Upcoming Encounters Date Type Department Care Team (Late st Contact Info) Description 03/04/2025 1:30 PM EDT Office Visit [facility] [address] [place], [place] [phone] Katharine Carbone, OD [address] [place] [address] documented as of this encounter Visit Diagnoses Not on filedocumented in this encounter Additional Health Concerns Assessment Noted Time PHQ-9 Depression Total Score: 21 023 9:42 AM EDT documented as of this encounter Care Teams American History Teacher Relationship Specialty Start Date End Date Tyesha Rogers MD [address] [place] [address] PCP - General Family Medicine 04/25/19 documented as of this encounter
--- OUTSIDE RECORDS SUMMARY | 2024-12-10 17:41 | XMS_ITS | Encounter Summary ---
Author Organization [employer] Address [address] [facility] 7t [place] [address] Care Team Providers Care Billet Recorder Name Role Phone Tyesha Rogers MD Primary Care Provider [phone] Reason for Visit * Reason Onset Date Comments Rapid Assisst 12/10/2024 Encounter Details Date Type Department Care Team ([facility] st Contact Info) Description 12/10/[address] [facility] MEDICINE 230 [place] [address] Soumya Bagley RN Rapid Assisst Social History Tobacco Use Types Packs/Day Years [...] encounter Miscellaneous Notes * Telephone Encounter - Soumya Bagley RN - 12/10/2024 2:25 PM EDT Pt arrived to the [place] Team to see PCP for a HDF appt this afternoon at 230. The service desk director noted that the pt started experiencing hives and itching over her body. The pt then proceeded to start experiencing some difficulty breathing and dizziness. Arianne Champagne RN and Soumya Bagley RN proceeded to get the emergency box and was accompanied by Dr. Connell to the waiting room for further assessment. EMS was called at this time by the service desk director. Initial vitals were taken and at 152 pm the pt had a blood pressure of 193/111, HR 88, RR 22 and O2 sat of 99%. Orders by Dr. Connell at that time were to administer epinephrine and Benadryl 50 MG. After the medications were administered the pt was brought into an exam room and placed on her back to help with the dizziness she was experiencing. PCP Dr. Rogers entered the room at this time and also started to assess and speak with the pt. The pt then had another set of vitals taken at 2 PM which showed a BP of 198/116, HR 93, RR 20 and O@ of 98%. At this time EMS proceeded to enter the room and a warm hand of was given with the pt face sheet andmedications given. We will follow up with the pt in 2 days to check on the status. documented in this encounter Plan of Treatment Upcoming Encounters Date Type Department Care Team (Late st Contact Info) Description 03/04/2025 1:30 PM EDT Office Visit [facility] OPT[facility] [address] [place] [address] Katharine Carbone, OD 230 [place] [address] documented as of this encounter Visit Diagnoses Not on filedocumented in this encounter Additional Health Concerns Assessment Noted Time PHQ-9 Depression Total Score: 15 025 11:52 AM EST documented as of this encounter Care Teams Billet Recorder Relationship Specialty Start Date End Date Tyesha Rogers MD 230 [place] [address] PCP - General Family Medicine 04/25/19 documented as of this encounter
--- OUTSIDE RECORDS SUMMARY | 2024-12-10 17:41 | XMS_ITS | Encounter Summary ---
Author Organization [employer] Address [address] [facility] 7t [place] [address] Care Team Providers Care Rabble Furnace Tender Name Role Phone Tyesha Rogers MD Primary Care Provider [phone] Encounter Details Date Type Department Care Team ([facility] st Contact Info) Description 07/17/2023 Orders Only [facility] MEDICINE 230 [place], [place] [phone] Kinjal Ch MD 230 [place], [place] [phone] Social History Tobacco Use Types Packs/Day Years [...] Description 03/04/2025 1:30 PM EDT Office Visit [facility] OPT[facility] [address] [place] [address] Raf, Katharine, OD 230 [place] [address] documented as of this encounter Visit Diagnoses Not on filedocumented in this encounter Additional Health Concerns Assessment Noted Time PHQ-9 Depression Total Score: 21 023 9:42 AM EDT documented as of this encounter Care Teams Rabble Furnace Tender Relationship Specialty Start Date End Date Tyesha Rogers MD 230 [place] [address] PCP - General Family Medicine 04/25/19 documented as of this encounter
--- OUTSIDE RECORDS SUMMARY | 2024-12-10 17:41 | XMS_ITS | Encounter Summary ---
Author Organization [facility] Address [address] [place] [address] Care Team Providers Care Chemist Steroids Name Role Phone Pcp, No Primary Care Provider Unavailabl e Encounter Details Date Type Department Care Team (Late st Contact Info) Description 06/09/2021 Scanned Document [facility] Neurology [address] [id number] Neurology, Scan Social History Tobacco Use Types [...] on filedocumented in this encounter Care Teams Chemist Steroids Relationship Specialty Start Date End Date Pcp, No PCP - General General Medicine 05/13/21 documented as of this encounter
--- OUTSIDE RECORDS SUMMARY | 2024-12-10 17:41 | XMS_ITS | Encounter Summary ---
Author Organization [employer] Address 75 [facility] 7t [place] [address] Care Team Providers Care Barrel Burner Name Role Phone Tyesha Rogers MD Primary Care Provider [phone] Encounter Details Date Type Department Care Team ([facility] st Contact Info) Description 07/11/2024 Telephone [facility] MEDICINE 230 [place] [address] Mira Vanegas, PharmD [address] [place] [address] Social History Tobacco Use Types Packs/Day Years Used Date Smoking Tobacco: Every Day Cigarettes Passive Smoke Exposure: Current Alcohol Use Standard Drinks/Week Comments Yes 0 (1 standard drink = 0.6 oz pur e alcohol) Depression Answer Date Recorded Patient Health Questionnaire-9 Score 24 06/13/2024 Patient Health Questionnaire-9 Score 24 06/13/2024 Last PHQ-9: Questionnaire Data Not on file [...] Date Recorded Patient Health Questionnaire-2 Score 6 06/13/2024 Comments Unknown Sex and Gender Information Value Date Recorded Sex Assigned at Female 07/11/2022 10:19 AM EDT Legal Sex Female 10:19 AM EDT Gender Identity Female 07/11/2022 10:19 AM EDT Sexual Orientation Choose not to disclose 2021 10:19 AM EDT documented as of this encounter Miscellaneous Notes * Telephone Encounter - Mira Vanegas PharmD - 07/11/2024 8:54 AM EDT Please assist in obtaining discharge paperwork from [facility] Patient was admitted on 06/21/2024. Thank you documented in this encounter Plan of Treatment Upcoming Encounters Date Type Department Care Team (Late st Contact Info) Description 03/04/2025 1:30 PM EDT Office Visit [facility] OPTOMETRY [address] [place] [address] Raf, Katharine, OD 230 [place] [address] documented as of this encounter Visit Diagnoses Not on filedocumented in this encounter Additional Health Concerns Assessment Noted Time PHQ-9 Depression Total Score: 24 024 8:33 AM EDT documented as of this encounter Care Teams Barrel Burner Relationship Specialty Start Date End Date Tyesha Rogers MD 230 [place] [address] PCP - General Family Medicine 04/25/19 documented as of this encounter
--- OUTSIDE RECORDS SUMMARY | 2024-12-10 17:41 | XMS_ITS | Encounter Summary ---
Author Organization [employer] Address [address] [facility] 7 [place] [address] Care Team Providers Care Production Ski Repairer Name Role Phone Tyesha Rogers MD Primary Care Provider Reason for Visit * Reason Comments Med Refill Encounter Details Date Type Department Care Team (Late st Contact Info) Description 04/24/2024 Refill [facility] MEDICINE 230 [place], [place] [phone] Tyesha Rogers MD 230 [place], [place] [phone] Vitamin D deficiency; Hypothyroidism, unspecified type Social History Tobacco Use Types Packs/Day Years [...] enough money to get more: Often true 10/ Transportation Answer Date Recorded In the past [...] encounter Miscellaneous Notes * Telephone Encounter - Neha Mondragon RN - 04/25/2024 10:09 AM EDT Telephone call placed to [facility]. Informed of below so they don't continue to send refill requests. This patient is currently living in [place]. She left [facility]. Please seen Dr. Grimes's note in February 2024. Thank you documented in this encounter Plan of Treatment Upcoming Encounters Date Type Department Care Team (Late st Contact Info) Description 03/04/2025 1:30 PM EDT Office Visit [facility] OPTOMETRY [address] [place] [address] Raf, Katharine, OD 230 [place] [address] documented as of this encounter Visit Diagnoses Diagnosis Vitamin D deficiency Hypothyroidism, unspecified type documented in this encounter Additional Health Concerns Assessment Noted Time PHQ-9 Depression Total Score: 21 024 10:41 AM EDT documented as of this encounter Care Teams Production Ski Repairer Relationship Specialty Start Date End Date Tyesha Rogers MD 230 [place] [address] PCP - General Family Medicine 04/25/19 documented as of this encounter
--- OUTSIDE RECORDS SUMMARY | 2024-12-10 17:41 | XMS_ITS | Encounter Summary ---
Author Organization [facility] Address [address] [place] [address] 7 [place] [address] Care Team Providers Care Mall Plant Caretaker Name Role Phone Tyesha Rogers MD Primary Care Provider [phone] Encounter Details Date Type Department Care Team (Late st Contact Info) Description 08/08/2022 Abstract [facility] MEDICINE 230 [place] [address] ProviderJhony MD Social History Tobacco Use Types Packs/Day Years Used Date Smoking Tobacco: Never Assessed Comments Unknown Sex and Gender Information Value [...] Description 03/04/2025 1:30 PM EDT Office Visit [facility] OPT[facility] [address] [place] [address] Raf, Katharine, OD 230 [place] [address] documented as of this encounter Visit Diagnoses Not on filedocumented in this encounter Care Teams Mall Plant Caretaker Relationship Specialty Start Date End Date Tyesha Rogers MD 230 [place] [address] PCP - General Family Medicine 04/25/19 documented as of this encounter
--- OUTSIDE RECORDS SUMMARY | 2024-12-10 17:41 | XMS_ITS | Encounter Summary ---
Author Organization [employer] Address [address] [place] [address] 7 [place] [address] Care Team Providers Care Junior Web Designer Name Role Phone Tyesha Rogers MD Primary Care Provider [phone] Reason for Visit * Reason Onset Date Comments Nurse Triage 11/01/2023 Encounter Details Date Type Department Care Team ([facility] st Contact Info) Description 11/01/2023 Telephone [facility] MEDICINE 230 [place] [address] Tyesha Rogers MD 230 [place] [address] Nurse Triage Social History Tobacco Use Types [...] encounter Miscellaneous Notes * Telephone Encounter - Isadora Hurt RN - 11/01/2023 1:04 PM EST Triage call Pt was in the hospital 10/05/23 -10/11/23 for surgical procedure of SBO with lysis of adhesions. Pt returned to the hospital 10/28/23-10/29/23 due to infection of surgical site. Pt was placedon antibiotics and is recuperating at home. Pt reports blood sugars have been high and very unstable. Pt BS this morning is 345, last evening it was 265. Pt has been taking metformin 1000mg bid, lantus 25U at HS and lispro sliding scale as prescribed from hospital. Pt is asking for trulicity for better control of blood sugar. Pt has not had HDF apt. No available apts with PCP . Given appt with Dr. Krause 11/06/23 @ 130pm. Pt agreed with home care disposition at this time and will request [facility] for medications at time of HDF appt. Pt is given home care advice and is increasing fluid intake at this time. No further questions . Insurance is verified as active prior to booking. Protocol Used: Diabetes - High Blood Sugar (Adult) Protocol-Based Disposition: Home Care Positive Triage Question: * Blood glucose > 300 mg/dL (16.7 mmol/L) * All higher-acuity triage questions were negative Care Advice Discussed: * High Blood Sugar (Hyperglycemia) * Treatment - Liquids * Continue Insulin * Diabetes Pills * Measure and Record Your Blood Glucose * Reasons To Call Back - Blood glucose over 300 mg/dL (16.7 mmol/L), two or more times in a row. - Urine ketones become moderate or large (or more than 1+); if you check blood ketones, blood ketone test is over 1.4 mmol/L - Vomiting lasting over 4 hours or unable to drink any fluids - Rapid breathing occurs - You have more questions - You become worse * Telephone Encounter - Blanca Whittoyo - 11/01/2023 11:41 AM EST Symptoms: High Blood Sugar - Caller Reports, Skin Infection - Caller Reports Outcome: Schedule a same-day appointment or talk to a nurse or provider today Reason: Caller denied all higher acuity questions The caller accepted this outcome documented in this encounter Plan of Treatment Upcoming Encounters Date Type Department Care Team (Late st Contact Info) Description 03/04/2025 1:30 PM EDT Office Visit [facility] OPTOMETRY [address] [place], [place] [phone] Katharine Carbone, ZAHIDA 230 [place] [address] documented as of this encounter Visit Diagnoses Not on filedocumented in this encounter Additional Health Concerns Assessment Noted Time PHQ-9 Depression Total Score: 21 023 9:42 AM EDT documented as of this encounter Care Teams Junior Web Designer Relationship Specialty Start Date End Date Tyesha Rogers MD 230 [place], [place] [phone] PCP - General Family Medicine 04/25/19 documented as of this encounter
--- OUTSIDE RECORDS SUMMARY | 2024-12-10 17:41 | XMS_ITS | Encounter Summary ---
Author Organization [employer] Address [address] [facility] [address] 7t [place] [address] Care Team Providers Care Laborer Cook House Name Role Phone Tyesha Rogers MD Primary Care Provider [phone] Encounter Details Date Type Department Care Team ([facility] st Contact Info) Description 06/05/2024 Orders Only [facility] 230 [place] [address] Henry Choi MD 230 [place] [address] Social History Tobacco Use Types Packs/Day Years [...] 1:30 PM EDT Office Visit [facility] OPTOMETRY [address] [place] [address] Raf, Katharine, OD 230 [place] [address] documented as of this encounter Visit Diagnoses Not on filedocumented in this encounter Additional Health Concerns Assessment Noted Time PHQ-9 Depression Total Score: 24 024 10:42 AM EDT documented as of this encounter Care Teams Laborer Cook House Relationship Specialty Start Date End Date Tyesha Rogers MD 230 [place] [address] PCP - General Family Medicine 04/25/19 documented as of this encounter
--- OUTSIDE RECORDS SUMMARY | 2024-12-10 17:41 | XMS_ITS | Encounter Summary ---
Author Organization [facility] Address [address] [place] [address] Care Team Providers Care Business Process Consultant Name Role Phone Pcp, No Primary Care Provider Unavailabl e Encounter Details Date Type Department Care Team (Late st Contact Info) Description 06/02/2021 Scanned Document [facility] PRIMARY CARE SCAN Clari Quesada, DO [address] [facility] [address] [place] [address] Social History Tobacco Use Types Packs/Day Years [...] on filedocumented in this encounter Care Teams Business Process Consultant Relationship Specialty Start Date End Date Pcp, No PCP - General General Medicine 05/13/21 documented as of this encounter
--- OUTSIDE RECORDS SUMMARY | 2024-12-10 17:41 | XMS_ITS | Encounter Summary ---
Author Organization [employer] Address [address] [place] [address] [address] [place] [address] Care Team Providers Care Director Mission Name Role Phone Tyesha Rogers MD Primary Care Provider [phone] Encounter Details Date Type Department Care Team (Late st Contact Info) Description 08/11/2022 Orders Only [facility] 230 [place] [address] Loren Oliva MD 230 [place] [address] Social History Tobacco Use Types Packs/Day Years [...] 1:30 PM EDT Office Visit [facility] OPTOMETRY [address] [place] [address] Katharine Carbone, OD 230 [place] [address] documented as of this encounter Visit Diagnoses Not on filedocumented in this encounter Care Teams Director Mission Relationship Specialty Start Date End Date Tyesha Rogers MD [address] [place] [address] PCP - General Family Medicine 04/25/19 documented as of this encounter
--- OUTSIDE RECORDS SUMMARY | 2024-12-10 17:42 | XMS_ITS | Encounter Summary ---
Author Organization [employer] Address [address] [place] [address] [address] [place] [address] Care Team Providers Care Defence Intelligence Analyst Name Role Phone Tyesha Rogers MD Primary Care Provider [phone] Encounter Details Date Type Department Care Team ([facility] st Contact Info) Description 10/10/2022 Orders Only [facility] MED[facility]INE [address] [place], [place] [phone] Tyesha Rogers MD [address] [place], [place] [phone] Hypothyroidism, unspecified type (Primary Dx); Elevated TSH; Choking, initial encounter; Hoarseness of voice; Tobacco use; Colon cancer screening Social History Tobacco Use Types Packs/Day Years [...] suspected to have Coronavirus/COVID-19? No / Unsure 10/07/2022 9:52 AM EST documented as of this encounter Plan of Treatment Upcoming Encounters Date Type Department Care Team (Late st Contact Info) Description 03/04/2025 1:30 PM EDT Office Visit [facility] OPTOMETRY [address] [place] [address] Katharine Carbone, OD [address] [place] [address] Scheduled Orders Name Type Priority Associated Diagnoses Orde r Schedule TSH W/Reflex to FT4 Lab Routine Hypothyroidism, unspecified type Elevated TSH Expected: 11/21/2022 (Approximate), Expires: 10/10/2023 documented as of this encounter Visit Diagnoses Diagnosis Hypothyroidism, unspecified type- Primary Elevated TSH Other abnormal blood chemistry Choking, initial encounter Hoarseness of voice Dysphonia Tobacco use Colon cancer screening Special screening for malignant neoplasms, colon documented in this encounter Additional Health Concerns Assessment Noted Time PHQ-9 Depression Total Score: 9 08/18/20 22 11:40 AM EST documented as of this encounter Care Teams Defence Intelligence Analyst Relationship Specialty Start Date End Date Tyesha Rogers MD [address] [place] [address] PCP - General Family Medicine 04/25/19 documented as of this encounter
--- OUTSIDE RECORDS SUMMARY | 2024-12-10 17:42 | XMS_ITS | Encounter Summary ---
Author Organization [employer] Address [address] [facility] [address] [place] [address] Care Team Providers Care Payroll Manager Name Role Phone Tyesha Rogers MD Primary Care Provider [phone] Reason for Visit * Reason Onset Date Comments Nurse Triage 07/04/2023 Encounter Details Date Type Department Care Team ([facility] st Contact Info) Description 07/04/2023 Telephone [facility] MED[facility]INE [address] [place] [address] Tyesha Rogers MD [address] [place] [address] Nurse Triage Social History Tobacco Use Types Packs/Day Years Used Date Smoking Tobacco: Every Day Cigarettes Alcohol Use Standard Drinks/Week Comments Yes 0 (1 standard drink = 0.6 oz pur e alcohol) PHQ-2 Answer Date Recorded Patient Health Questionnaire-2 Score 0 08/30/2022 Depression Answer Date Recorded Patient Health Questionnaire-9 Score 9 08/18/2022 Housing Stability Answer Date Recorded What is [...] the past 12 months, has t he [email or web address] oil or water company threatened to shut [...] encounter Miscellaneous Notes * Telephone Encounter - Yani Thapa RN - 07/04/2023 11:41 AM EDT Called pt. She states that she has been depressed and having anxiety. Pt. Is not currently on any medications. She states that she went to the ED last week and was given 7 suboxone pills and some ativan but she does not have anymore. Pt. Was supposed to start the suboxone program at [facility] but, missedher appt. In May 2023 ,she states. Pt. Used to have a counselor but has not been getting calls according to her. Pt. Was also supposed to be referred to a Psychiatrist but she states that no one ever got in touch with her with an appointment. Pt. Is currently not taking her Depressiobn and Anxiety medication that was previously prescribed. Pt. States not taking any antidepressant medicationfor a few months now. Pt. States that she is on her way to Walk in at [facility]. I will send this note oliverio in [place] to let them know that pt. Will need a [facility] counselor present for appt. Pt. States that she will arrive to [facility] walk in around 1-130pm. Pt. Declining to go to ED. Protocol Used: Depression (Adult) Protocol-Based Disposition: See in Office or Video Visit within 3 Days- Pt. Will go to walk in today. Video visit not offered Positive Triage Questions: * Symptoms interfere with work or school * Depression is worsening (e.g.,sleeping poorly, less able to do activities of daily living) * Requesting to talk with a counselor (mental health worker, psychiatrist, etc.) * Patient wants to be seen * All higher-acuity triage questions were negative Care Advice Discussed: * Note to Triager - Depression * Depression - Symptoms * Depression - Causes Protocol Used: Anxiety and Panic Attack (Adult) Protocol-Based Disposition: See in Office or Video Visit within 3 Days- Pt. Will go to walk in today. Video visit not offered Positive Triage Questions: * Moderate anxiety (e.g., persistent or frequent anxiety symptoms; interferes with sleep, school, or work) * Recent traumatic event (e.g., of a loved one, job loss, victim/witness of crime) * Requesting to talk to a counselor (e.g., mental health worker, psychiatrist) * Patient wants to be seen * All higher-acuity triage questions were negative Care Advice Discussed: * Note to Triager - Anxiety Symptoms * Reassurance and Education - Anxiety * Anxiety - Healthy Lifestyle Tips * Avoid Caffeine * Avoid Triggers of Anxiety * Stress Reduction * Reasons To Call Back * Telephone Encounter - Andrew Garcia - 07/04/2023 11:05 AM EDT Symptom: Anxiety or Panic Attack been going on for a week states she is feeling depressed and also been picking at her own skin Outcome: Schedule an urgent appointment (within 4 hours) or talk to a nurse or provider soon Reason: Anxiety keeps from normal daily activities. documented in this encounter Plan of Treatment Upcoming Encounters Date Type Department Care Team (Late st Contact Info) Description 03/04/2025 1:30 PM EDT Office Visit [facility] OPTOMETRY [address] [place] [address] Katharine Carbone, OD [address] [facility] [place] [address] documented as of this encounter Visit Diagnoses Not on filedocumented in this encounter Additional Health Concerns Assessment Noted Time PHQ-9 Depression Total Score: 9 08/18/20 22 11:40 AM EST documented as of this encounter Care Teams Payroll Manager Relationship Specialty Start Date End Date Tyesha Rogers MD [address] [place] [address] PCP - General Family Medicine 04/25/19 documented as of this encounter
--- OUTSIDE RECORDS SUMMARY | 2024-12-10 17:42 | XMS_ITS | Clinical Summary ---
Author Organization [employer] Address [address] [place] [address] 7 [place] [address] Care Team Providers Care Beer Maker Name Role Phone Tyesha Rogers MD Primary Care Provider [phone] Allergies Active Allergy Reactions Criticality Noted Date Comments Asparagus 03/28/2017 Brassica Oleracea 03/28/2017 Cat Dander 08/30/2022 Dog Epithelium 08/30/2022 Fluoxetine 03/18/2015 Other reaction(s): suicidality Other reaction(s): Fluoxetine Gramineae Pollens 08/30/2022 Green Coffee Murphy-Yerba Mate 017 Iodinated Contrast Media Medium 05/13/2021 Other reaction(s): Unknown/Patient and Family Unable to Define Lisinopril Cough Medium 05/30/2017 Other reaction(s): Unknown/Patient and Family Unable to Define Lisinopril-Hydrochlorothiazi de Cough 12/06/2016 [place] High 12/04/2018 Other reaction(s): stiffened up & throat closing Olanzapine 12/04/2018 Other reaction(s): can't recall if hives or increased suicidality Prednisone & Diphenhydramine 022 Quetiapine 08/29/2018 Risperidone 03/28/2017 Tomato 03/28/2017 Other reaction(s): hives Valproic Acid High 12/04/2018 Other reaction(s): stiffened up, locked jaw Medications * This document contains information received from the source organization and may not represent a complete record from that organization. naloxone (Narcan) 4 mg/0.1 mL nasal spray Administer 0.1 mL into affected nostril(s) if needed. 022 Active albuterol (2.5 MG/3ML) 0.083% nebulizer solution Inhale 3 mL in the morning, at noon, in the evening, and at bedtime. Inhale 3 ml by nebulization route every 4 hours 021 Active nitroglycerin (Nitrostat) 0.[address] 1 tablet under the tongue if needed each day. PRN Active glucose (Glutose) 40 % gel oral gelIndications:T ype 2 diabetes mellitus with hyperglycemia, with long-term current use of insulin ([facility]) Administer 15 g orally as needed for blood glucose < 60 mg/dl. Use glucagon if pt cannot swallow or is unresponsive. Call emergency if pt is lethargic or unresponsive. 45 g 3 023 Active levothyroxine (Synthroid, Levoxyl) 25 MCG tabletIndication s:Hypothyroidism , unspecified type Take 1 tablet (25 mcg) by mouth before breakfast. 90 tablet 024 Active Additional Information Patient not taking.Reported on 11/18/2024 EPINEPHrine (EpiPen 2-Bashir) 0.3 MG/0.3ML injection syringe Inject 0.3 mL (0.3 mg) as directed if needed for anaphylaxis. 1 each 024 Active insulin lispro (HumaLOG) 100 UNIT/ML injectionIndicat ions:Type 2 diabetes mellitus with hyperglycemia, with long-term current use of insulin ([facility]) << Sliding Scale Comments >>100 - 149 8 units Call if less than [id number] - 199 10 units 200 - 249 12 units 250 - 299 14 units 300 - 349 16 units Call if greater than 400... 20 mL 2 024 Active doxepin (SINEquan) 25 MG capsuleIndicatio ns:Neuropathy TAKE 1 CAPSULE BY MOUTH AT BEDTIME 90 capsule 1 025 Active Ventolin HFA 108 (90 Base) MCG/ACT inhaler INHALE 2 PUFFS BY MOUTH EVERY 4 HOURS NEEDED FOR WHEEZING 18 g 1 025 Active losartan (Cozaar) 100 MG tablet Take 1 tablet (100 mg) by mouth Once per day. 90 tablet 025 Active atorvastatin (Lipitor) 40 MG tablet Take 1 tablet (40 mg) by mouth Once per day. 90 tablet Active metFORMIN XR (Glucophage-XR) 500 MG 24 hr tabletIndication s:Type 2 diabetes mellitus with hyperglycemia (CMS/HCC) Take 2 tablets (1,000 mg) by mouth with breakfast and with evening meal. Do not crush, chew, or split. 360 tablet Active insulin glargine (Lantus SoloStar) 100 UNIT/ML penIndications:T ype 2 diabetes mellitus with hyperglycemia, with long-term current use of insulin ([facility]) INJECT 30 UNITS SUBCUTANEOUSLY AT BEDTIMEINJECT 25 UNITS SUBCUTANEOUSLY AT BEDTIME 15 mL 2 Active Additional Information Patient taking differently: 23 Units Subcutaneous Nightly, (No instructions reported), Reported on 11/18/2024 apixaban (Eliquis) 5 MG tablet Take 1 tablet (5 mg) by mouth every 12 (twelve) hours. 60 tablet 3 Active amLODIPine (Norvasc) 5 MG tablet Take 1 tablet (5 mg) by mouth Once per day. 90 tablet 2025 Active insulin pen needle 32G x 5 mm misc Inject under the skin 4 times daily. Use as instructed 120 each Active FreeStyle lancets 1 each by Other route 4 times daily. Test blood sugar 4 times a day 100 each 5 Active Blood Glucose Monitoring Suppl (FreeStyle Clothier Lite) w/Device kit Use to test blood sugar bid dx dm 1 kit Active Alcohol Swabs (Alcohol Prep) pads Check blood sugar three times daily and as needed when feeling ill 100 each 3 Active glucose blood (FREESTYLE LITE) test stripIndications :Type 2 diabetes mellitus with hyperglycemia, with long-term current use of insulin ([facility]) USE TO TEST BLOOD SUGAR FOUR TIMES DAILY. FASTING (BEFORE BREAKFAST), BEFORE LUNCH, BEFORE DINNER AND 2 HOURS AFTER YOUR LARGEST MEAL OF THE DAY. 100 each 3 Active methocarbamol (Robaxin) 750 MG tablet Take 2 tablets by mouth if needed in the morning, at noon, in the evening, and at bedtime for muscle spasms. Active naproxen (Naprosyn) 500 MG tablet Take 1 tablet by mouth with breakfast and with evening meal. Active cloNIDine (Catapres) 0.1 MG tablet Take 1 tablet by mouth if needed in the morning, at noon, and at bedtime (anxiety). Active acetaminophen (Tylenol) 500 MG tablet Take 2 tablets (1,000 mg) by mouth every 6 (six) hours if needed for moderate pain or fever for up to 25 doses. 50 tablet Active fluconazole (Diflucan) 150 MG tablet Take 1 tablet (150 mg) by mouth if needed each day (yeast infetion) for up to 2 doses. 2 tablet Active Blood Pressure kit Check BP every day. Goal BP < 140/90 1 kit Active Multiple Vitamin (Multi-Vitamin) tablet Take 1 tablet by mouth in the morning. With food 021 2024 Discontinued(M ed list cleanup (will not trigger notification to Pharmacy)) famotidine (Pepcid) 20 MG tablet Take 1 tablet by mouth every 12 (twelve) hours. 2024 Discontinued(M ed list cleanup (will not trigger notification to Pharmacy)) ocrelizumab (Ocrevus) 300 MG/10ML solution Infuse 30 mg into a venous catheter every 6 (six) months. 2024 Discontinued(M ed list cleanup (will not trigger notification to Pharmacy)) fluticasone (Flonase Allergy Relief) 50 MCG/ACT nasal spray Administer 2 sprays into affected nostril(s) at bed time. 2024 Discontinued(M ed list cleanup (will not trigger notification to Pharmacy)) Alcohol Swabs (Alcohol Prep) pads 2024 Discontinued(R eorder (will not trigger notification to Pharmacy)) Jessi-Dryl 25 MG tablet TAKE ONE TABLET BY MOUTH EVERY 8 HOURS NEEDED 022 2024 Discontinued(M ed list cleanup (will not trigger notification to Pharmacy)) Bisacodyl EC 5 MG EC tablet TAKE 1 TABLET BY MOUTH ONCE DAILY NEEDED FOR CONSTIPATION 023 2024 Discontinued(M ed list cleanup (will not trigger notification to Pharmacy)) Blood Glucose Monitoring Suppl (Twijector Clothier Lite) w/Device kit Use to test blood sugar bid dx dm 1 kit 2024 Discontinued(R eorder (will not trigger notification to Pharmacy)) Lidoderm 5 % patch APPLY 1 PATCH TOPICALLY two (2) times a day NEEDED FOR PAIN 30 patch 11 023 2024 Discontinued(M ed list cleanup (will not trigger notification to Pharmacy)) Continuous Blood Gluc Sensor (FreeStyle [place]oy 2 Sensor) [facility] Use as directed 2 each 11 023 2024 Discontinued(M ed list cleanup (will not trigger notification to Pharmacy)) Continuous Blood Gluc Flooring Machine Feeder (FreeStyle Eloy 2 Wink) device Use as directed 1 each 1 2024 Discontinued(M ed list cleanup (will not trigger notification to Pharmacy)) Asmanex, 60 Metered Doses, 220 MCG/ACT aerosol powder INHALE 1 PUFF BY MOUTH INTO THE lungs two (2) times a day 2024 Discontinued(M ed list cleanup (will not trigger notification to Pharmacy)) acetaminophen (Tylenol) 325 MG tablet TAKE 2 TABLETS BY MOUTH EVERY 4 HOURS NEEDED FOR PAIN 30 tablet 2024 Discontinued(M ed list cleanup (will not trigger notification to Pharmacy)) ammonium lactate (Lac-Hydrin) 12 % lotionIndication s:Skin lesion Apply to affected area twice daily 225 g 2024 Discontinued(M ed list cleanup (will not trigger notification to Pharmacy)) apixaban (Eliquis) 5 MG tablet Take 1 tablet (5 mg) by mouth every 12 (twelve) hours. 60 tablet 2024 Discontinued(R eorder (will not trigger notification to Pharmacy)) ARIPiprazole (Abilify) 5 MG tablet Take 1 tablet (5 mg) by mouth Once per day. 90 tablet 2024 Discontinued(M ed list cleanup (will not trigger notification to Pharmacy)) atorvastatin (Lipitor) 40 MG tablet Take 1 tablet (40 mg) by mouth Once per day. 90 tablet 2024 Discontinued(R eorder (will not trigger notification to Pharmacy)) cholecalciferol (D3-1000) 25 MCG (1000 UT) capsuleIndicatio ns:Vitamin D deficiency TAKE 1 CAPSULE BY MOUTH ONCE DAILY 90 capsule 2024 Discontinued(M ed list cleanup (will not trigger notification to Pharmacy)) cyclobenzaprine (Flexeril) 10 MG tablet Take 1 tablet (10 mg) by mouth if needed at bedtime for muscle spasms. 90 tablet 2024 Discontinued(M ed list cleanup (will not trigger notification to Pharmacy)) docusate sodium (Colace) 100 MG capsule Take 1 capsule (100 mg) by mouth every 12 (twelve) hours. 180 capsule 2024 Discontinued(M ed list cleanup (will not trigger notification to Pharmacy)) losartan (Cozaar) 100 MG tablet Take 1 tablet (100 mg) by mouth Once per day. 90 tablet 2024 Discontinued(R eorder (will not trigger notification to Pharmacy)) metFORMIN XR (Glucophage-XR) 500 MG 24 hr tabletIndication s:Type 2 diabetes mellitus with hyperglycemia (CMS/HCC) Take 2 tablets (1,000 mg) by mouth with breakfast and with evening meal. Do not crush, chew, or split. 360 tablet 2024 Discontinued(R eorder (will not trigger notification to Pharmacy)) Buprenorphine HCl-Naloxone HCl (Suboxone) 8-2 MG SL filmIndications: Uncomplicated opioid dependence (CMS/HCC) Place 1 Film under the tongue Once per day for 28 days. 28 Film 2024 Discontinued(M ed list cleanup (will not trigger notification to Pharmacy)) FreeStyle lancets 1 each by Other route 4 times daily. Test blood sugar 4 times a day 100 each 5 2024 Discontinued(R eorder (will not trigger notification to Pharmacy)) amLODIPine (Norvasc) 5 MG tablet Take 1 tablet (5 mg) by mouth Once per day. 30 tablet 5 2024 Discontinued(R eorder (will not trigger notification to Pharmacy)) Blood Pressure kit Check BP every day. Goal BP < 140/90 1 kit 024 2024 Discontinued(R eorder (will not trigger notification to Pharmacy)) insulin pen needle 32G x 5 mm misc Inject under the skin 4 times daily. Use as instructed 120 each 5 024 2024 Discontinued(R eorder (will not trigger notification to Pharmacy)) Buprenorphine HCl-Naloxone HCl (Suboxone) 8-2 MG SL filmIndications: Opioid use disorder Place 1 Film under the tongue Once per day for 4 days. 4 Film 024 2024 Discontinued(M ed list cleanup (will not trigger notification to Pharmacy)) pregabalin (Lyrica) 25 MG capsuleIndicatio ns:Other chronic pain TAKE 1 CAPSULE BY MOUTH ONCE DAILY AT BEDTIME 30 capsule 024 2024 Discontinued(M ed list cleanup (will not trigger notification to Pharmacy)) glucose blood (FREESTYLE LITE) test stripIndications :Type 2 diabetes mellitus with hyperglycemia, with long-term current use of insulin ([facility]) USE TO TEST BLOOD SUGAR FOUR TIMES DAILY. FASTING (BEFORE BREAKFAST), BEFORE LUNCH, BEFORE DINNER AND 2 HOURS AFTER YOUR LARGEST MEAL OF THE DAY. 100 each 5 024 2024 Discontinued(R eorder (will not trigger notification to Pharmacy)) insulin glargine (Lantus SoloStar) 100 UNIT/ML penIndications:T ype 2 diabetes mellitus with hyperglycemia, with long-term current use of insulin ([facility]) INJECT 30 UNITS SUBCUTANEOUSLY AT BEDTIMEINJECT 25 UNITS SUBCUTANEOUSLY AT BEDTIME 15 mL 2 024 2024 Discontinued(R eorder (will not trigger notification to Pharmacy)) doxycycline (Vibramycin) 100 MG capsule Take 1 capsule (100 mg) by mouth 2 times daily for 7 days. Take with at least 8 ounces (large glass) of water, do not lie down for 30 minutes after 14 capsule 025 2024 cephalexin (Keflex) 500 MG capsule Take 1 capsule (500 mg) by mouth 3 times daily for 5 days. 15 capsule 025 2024 Active Problems Problem Noted Date Diagnosed Date Hypertensive emergency 06/26/2024 Assessment & Plan (06/26/2024 12:15 PM EDT): EMS called, patient presented to [facility] to the [facility] emergency department Precordial pain 06/26/2024 Assessment & Plan (06/26/2024 12:15 PM EDT): EMS called, patient presented to [facility] Garcia to the [facility] emergency department Acute hyperglycemia 06/26/2024 Assessment & Plan (06/26/2024 12:15 PM EDT): EMS called, patient presented to [facility] to the [facility] emergency department Hypomagnesemia 06/04/2024 Right wrist pain 08/25/2023 Assessment & Plan (08/25/2023 10:46 AM EST): Patient is on elequis so acetaminophen for pain Ice, wrist brace, XRAY and orthopedics referral Severe episode of recurrent major depressive disorder, without psychotic features 01/27/2023 Assessment & Plan (07/11/2023 8:28 AM EDT): Emily has a h/o mood disorder, SI, cocaine use, OUD, depression, anxiety and PTSD. Eun reports anhedonia, feeling depressed, sleep disturbances, feeling tired, poor appetite, and overeating, guilt, trouble concentrating, feeling anxious, inability to control worry, worrisome, trouble relaxing, and restlessness. Emily agrees to go up to [facility], and attempt to reschedule with therapist. Emily is open to a referral to [facility] for psychiatric medication. She also requests to return to [facility]. LUCIUS Hatch has scheduled that appointment. Emily agrees to follow up with me at ext. [phone], if she is unable to connect with therapist. Assessment & Plan (01/27/2023 3:10 PM EDT): Assessment: Aminata was engaged with active reflective listening and open-ended questions. Assessed symptoms, risks, and social supports with direct questions. Discussed current symptoms intensity and frequency. Emotions were normalized and validated. Aminata identified using cocaine as coping mechanisms and her granddaughter as protective factors. Provided psychoeducation around Coping mechanism to address depression and anxiety sxs. She is engage in MH at [facility] with therapist Aminata Bolton. I will submit referral to [facility] for Psychiatrist services. Provided education around integrated medicine and the options of follow up BE's as needed. Provided contact information should questions or concerns arise. Plan: Aminata will engage in effective coping mechanisms discussed. She will remind engage in MH services. Patient with lack of interest in activities, little energy, trouble concentrating, anxiousness, persistent worry, irritability and fear of something bad would happen. She denies SI, HI, AVH or self-harm, recent relapse on cocaine used to cope with distress of not knowing about her grandchild. Patient will benefit from continue MH services. At this time Emily Tucker meets criteria for Visit Diagnoses: Problem List Items Addressed This Visit Other History of pulmonary embolism Patient ready to address current needs Yes Strengths include Emily is in action stage of change and her motivation will serve as treatmetn engagement. PLAN: 1. Follow up with [facility]: Not recommended for follow-up 2. Patient goal is to become mentally stable and work on her sobriety 3. Behavioral Recommendations a. Remind engage in MH services with [facility] b. Referral to [facility] for Psychiatrist services c. [facility] contact information for support. Ischemic heart disease 09/04/2022 Assessment & Plan (08/25/2023 7:04 PM EST): - boom stick man: [facility]. Last seen in December 2022 - CAD, remote non-STEMI on 10/29, reported moderate CAD - History of DVT and likely PEA at [facility], on apixaban and 12 contrast allergy with anaphylaxis. Assessment & Plan (12/22/2022 5:36 AM EDT): -Environmental Communications Specialist: Umesh Forrester, last seen in Sep 2021 -Hx mild CAD, last cardiac cath on 03/06/20 -continue ARB and statin -continue working on lifestyle modification -not on ASA since she started taking Eliquis for PE -previously on propranolol for ARCEO, but no longer taking it due to Hx hypotension -follow-up with boom stick man as scheduled Assessment & Plan (09/04/2022 12:05 PM EST): -Environmental Communications Specialist: Umesh Forrester, last seen in Sep 2021 -Hx mild CAD, last cardiac cath on 03/06/20 -continue ARB and statin -continue working on lifestyle modification -not on ASA since she started taking Eliquis for PE -previously on propranolol for ARCEO, but no longer taking it due to Hx hypotension -follow-up with boom stick man as scheduled Tobacco use 08/30/2022 Assessment & Plan (08/25/2023 7:09 PM EST): - work on smoking cessation - refer to lung cancer screening program Recurrent kidney stones 08/19/2022 Assessment & Plan (12/22/2022 5:58 AM EDT): ?? [facility], last seen in Aug 2021 ?? S/p right ESWL on 01/29/20 ?? S/p left cystoscopy, retrograde laser and stent on 02/28/20 ?? S/p removal on 04/07/21 ?? S/p cystoscopy and ureteroscopy on 08/23/21 ?? Drink water > 2L / day Assessment & Plan (09/04/2022 12:06 PM EST): ?? [facility], last seen in Aug 2021 ?? S/p right ESWL on 01/29/20 ?? S/p left cystoscopy, retrograde laser and stent on 02/28/20 ?? S/p removal on 04/07/21 ?? S/p cystoscopy and ureteroscopy on 08/23/21 ?? Drink water > 2L / day Assessment & Plan (08/19/2022 10:40 AM EST): ?? Urologist: Dr. Roger Boyd, last seen in Aug 2021 ?? S/p right ESWL on 01/29/20 ?? S/p left cystoscopy, retrograde laser and stent on 02/28/20 ?? S/p removal on 04/07/21 ?? S/p cystoscopy and ureteroscopy on 08/23/21 ?? Drink water > 2L / day Type 2 diabetes mellitus with hyperglycemia 05/2022 Assessment & Plan (09/27/2023 6:06 AM EST): Hgb A1C 12.4% on 08/08/23. Continue working on lifestyle modifications Continue checking BG; will prescribe CGM Improve medication adherence Continue basal insulin, Lantus, 25 units at bedtime Continue metformin ER 1000 mg bid Discussed about SGLT-2 inhibitor, but pt has frequent urinary symptoms (MS, recurrent nephrolithiasis); therefore, will hold off at this time Treatment Hx: Trulicity was discontinued in March 2022 when pt developed pancreatitis. Microalbumin test: 04/04/22 No microalbuminuria Lipid profile: 04/04/22 Diabetic eye exam: Referred to [facility] in the past; will check its status Foot exam: 08/08/23 Neuropathy; callus; previously written a script for diabetic footwear. She did not go to [employer] shoes. Will refer to hr systems analyst Assessment & Plan (12/22/2022 5:56 AM EDT): ?? Hgb A1C 12.6% on 08/30/22, 15% on 08/18/22 ?? Continue working on lifestyle modifications ?? Continue checking BG ?? Improve medication adherence ?? Continue basal insulin, Lantus, 25 units at bedtime ?? Continue metformin ER 1000 mg bid ?? Discussed about SGLT-2 inhibitor, but pt has frequent urinary symptoms (MS, recurrent nephrolithiasis); therefore, will hold off at this time ?? Treatment Hx: ?? Trulicity was discontinued in March 2022 when pt developed pancreatitis. ?? Microalbumin test: 04/04/22 No microalbuminuria ?? Lipid profile: 04/04/22 ?? Diabetic eye exam: Referred to [facility] care in the past; will check its status ?? Foot exam: 08/18/22 Neuropathy; callus; written a script for diabetic footwear. Assessment & Plan (10/03/2022 9:45 PM EST): ?? Hgb A1C 12.6% on 08/30/22, 15% on 08/18/22 ?? Continue working on lifestyle modifications ?? Continue checking BG ?? Improve medication adherence ?? Continue basal insulin, Lantus, 25 units at bedtime ?? Change metformin IIR to ER 1000 mg bid ?? Discussed about SGLT-2 inhibitor, but pt has frequent urinary symptoms (MS, recurrent nephrolithiasis); therefore, will hold off at this time ?? Treatment Hx: ?? Trulicity was discontinued in March 2022 when pt developed pancreatitis. ?? Microalbumin test: 04/04/22 No microalbuminuria ?? Lipid profile: 04/04/22 ?? Diabetic eye exam: Referred to [facility] care in the past; will check its status ?? Foot exam: 08/18/22 Neuropathy; callus; written a script for diabetic footwear. Assessment & Plan (09/04/2022 12:08 PM EST): ?? Hgb A1C 15% on 08/18/22, 11.7% in Apr 2022 ?? Continue working on lifestyle modifications ?? Continue checking BG ?? Improve medication adherence ?? Continue basal insulin, Lantus, 25 units at bedtime ?? Continue metformin ER 1000 mg bid ?? Discussed about SGLT-2 inhibitor, but pt has frequent urinary symptoms (MS, recurrent nephrolithiasis); therefore, will hold off at this time ?? Treatment Hx: ?? Trulicity was discontinued in March 2022 when pt developed pancreatitis. ?? Microalbumin test: 04/04/22 No microalbuminuria ?? Lipid profile: 04/04/22 ?? Diabetic eye exam: Referred to [facility] in the past; will check its status ?? Foot exam: 08/18/22 Neuropathy; callus; written a script for diabetic footwear. Assessment & Plan (08/19/2022 10:52 AM EST): ?? Hgb A1C 15% on 08/18/22, 11.7% in Apr 2022 ?? Continue working on lifestyle modifications ?? Continue checking BG ?? Continue basal insulin, Lantus, 25 units at bedtime ?? Continue metformin ER 1000 mg bid ?? Discussed about SGLT-2 inhibitor, but pt has frequent urinary symptoms (MS, recurrent nephrolithiasis); therefore, will hold off at this time ?? Treatment Hx: ?? Trulicity was discontinued in March 2022 when pt developed pancreatitis. ?? Microalbumin test: 04/04/22 No microalbuminuria ?? Lipid profile: 04/04/22 ?? Diabetic eye exam: Referred to [facility] care in the past; will check its status ?? Foot exam: 08/18/22 Neuropathy; callus; will write a script for diabetic footwear. Neurogenic bladder 08/19/2022 Overview (08/19/2022): ?? Followed by urologist History of pulmonary embolism 08/19/2022 Overview (08/19/2022): ?? Hx DVT and PE in 2019, unprovoked ?? Eliquis since 2019 Asthma 08/02/2022 Assessment & Plan (08/25/2023 6:52 PM EST): - Change Flovent to Asmanex - Continue albuterol HFA and neb prn Mood disorder 08/02/2022 Assessment & Plan (08/25/2023 7:11 PM EST): Current Dx: Bipolar disorder, sometimes she is diagnosed with MDD. Occasionally with [place] [facility] due to borderline tendency and conversion disorder Hx suicide attempt several times (one time overdosed insulin) [facility] provider: Dr. Abi Thomason is psychiatrist, previously Albina Duff was her therapist. Encouraged to reach out to her [facility] therapist and psychiatrist for her concerns and medication management She was able to contract her safety today Assessment & Plan (09/04/2022 12:10 PM EST): ?? Current Dx: Bipolar disorder, sometimes she is diagnosed with MDD. Occasionally with [place] II due to borderline tendency and conversion disorder ?? S provider: Dr. Abi MCDONNELL is psychiatrist, Albina Duff has been her therapist. ?? Encouraged to reach out to her [facility] therapist and psychiatrist for her concerns and medication management ?? She was able to contract her safety today Assessment & Plan (08/19/2022 11:13 AM EST): ?? Current Dx: Bipolar disorder, sometimes she is diagnosed with MDD. Occasionally with [place] [facility] due to borderline tendency and conversion disorder ?? [facility] provider: Katelin, Dr. Alex is psychiatrist, Albina Duff has been her therapist. ?? Encouraged to reach out to her [facility] therapist and psychiatrist for her concerns and medication management ?? She was able to contract her safety today Cervical dysplasia 08/02/2022 Cocaine use disorder 08/02/2022 H/O: attempted suicide 08/02/2022 Substance use disorder 08/02/2022 Opioid use disorder 08/02/2022 Coronary artery disease 09/26/2018 Type 2 diabetes mellitus, wi th long-term current use of insulin 09/26/2018 Overview (03/15/2023): Diabetes is controlled. - Lab Results Component Value Date HGBA1C 12.6 (A) 08/30/2022 HGBA1C 12.1 (A) 08/18/2022 HGBA1C 8.7 (H) 08/25/2020 -No results found for: POCA1C - Lab Results Component Value Date MICROALBUR 1.3 04/04/2022 CREATININE 0.92 10/07/2022 -Changes: -Onesimo/Arb: -Statin therapy: -Diabetic eye exam: -Diabetic foot exam: -Continue lifestyle modifications -Continue current medications Assessment & Plan (09/27/2023 6:06 AM EST): Hgb A1C 12.4% on 08/08/23. Continue working on lifestyle modifications Continue checking BG; will prescribe CGM Improve medication adherence Continue basal insulin, Lantus, 25 units at bedtime Continue metformin ER 1000 mg bid Discussed about SGLT-2 inhibitor, but pt has frequent urinary symptoms (MS, recurrent nephrolithiasis); therefore, will hold off at this time Treatment Hx: Trulicity was discontinued in March 2022 when pt developed pancreatitis. Microalbumin test: 04/04/22 No microalbuminuria Lipid profile: 04/04/22 Diabetic eye exam: Referred to [facility] Eye care in the past; will check its status Foot exam: 08/08/23 Neuropathy; callus; previously written a script for diabetic footwear. She did not go to [employer]. Will refer to hr systems analyst Assessment & Plan (08/25/2023 7:08 PM EST): Hgb A1C 12.4% on 08/08/23. Continue working on lifestyle modifications Continue checking BG; will prescribe CGM Improve medication adherence Continue basal insulin, Lantus, 25 units at bedtime Continue metformin ER 1000 mg bid Discussed about SGLT-2 inhibitor, but pt has frequent urinary symptoms (MS, recurrent nephrolithiasis); therefore, will hold off at this time Treatment Hx: Trulicity was discontinued in March 2022 when pt developed pancreatitis. Microalbumin test: 04/04/22 No microalbuminuria Lipid profile: 04/04/22 Diabetic eye exam: Referred to [facility] Eye care in the past; will check its status Foot exam: 08/08/23 Neuropathy; callus; previously written a script for diabetic footwear. She did not go to [employer]. 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 Hgb A1C 15% on 08/18/22, 11.7% in Apr 2022 ?? Continue working on lifestyle modifications ?? Continue checking BG ?? Continue basal insulin, Lantus, 25 units at bedtime ?? Continue metformin ER 1000 mg bid ?? Discussed about SGLT-2 inhibitor, but pt has frequent urinary symptoms (MS, recurrent nephrolithiasis); therefore, will hold off at this time ?? Treatment Hx: ?? Trulicity was discontinued in March 2022 when pt developed pancreatitis. ?? Microalbumin test: 04/04/22 No microalbuminuria ?? Lipid profile: 04/04/22 ?? Diabetic eye exam: Referred to [facility] Eye care in the past; will check its status ?? Foot exam: 08/18/22 Neuropathy; callus; will write a script for diabetic footwear. Dyslipidemia 08/29/2018 Overview (03/15/2023): Lab Results Component Value Date CHOLESTEROL 222 (H) 04/04/2022 LDLCHOL 124 (H) 04/04/2022 LDLCHOL 85 03/04/2022 LDLCHOL 131 (H) 08/27/2021 HDLCHOL 62 04/04/2022 CHOLHDLRAT 3.6 04/04/2022 -continue lifestyle modifications Assessment & Plan (08/25/2023 7:11 PM EST): Current medication: atorvastatin 40 mg at bedtime Last lipid profile: 04/04/22 TC 222; TG 215; HDL 62; LDL 124 Continue current medication and lifestyle modification Assessment & Plan (12/22/2022 5:57 AM EDT): ?? Current medication: atorvastatin 40 mg at bedtime ?? Last lipid profile: 04/04/22 TC 222; TG 215; HDL 62; LDL 124 ?? Continue current medication and lifestyle modification Assessment & Plan (08/19/2022 11:15 AM EST): ?? Current medication: atorvastatin 40 mg at bedtime ?? Last lipid profile: 04/04/22 TC 222; TG 215; HDL 62; LDL 124 ?? Continue current medication and lifestyle modification Palpitations 08/29/2018 Hypertension 07/05/2017 Overview (03/15/2023): -Blood pressure is at goal -Continue lifestyle modifications -Continue current medications Assessment & Plan (09/27/2023 6:07 AM EST): -Goal BP <140/80 per JNC-8 , <130/80 per ACC/AHA. -BP not at goal today; pt attributes it to pain -Questionable medication adherence; discrepancy in med refill Hx per pharmacist -Continue Loasartan 100mg -Continue hydralazine 37.5 mg bid; increase to 50 mg bid if no improvement. -Pt was prescribed propanolol for anxiety and headache in the past, but pt has not been taking because pt developed hypotension -Cont working on lifestyle modifications -follow-up in 3 mo or sooner if any problem arises Assessment & Plan (08/25/2023 7:01 PM EST): -Goal BP <140/80 per JNC-8 , <130/80 per ACC/AHA. -BP not at goal today; pt attributes it to pain -Questionable medication adherence; discrepancy in med refill Hx per pharmacist -Continue Loasartan 100mg -Previously on hydralazine, but it seems to be discontinued; pt is uncertain if she is still taking it -Pt is also prescribed prazosin. -Pt was prescribed propanolol for anxiety and headache in the past, but pt has not been taking because pt developed hypotension -Cont working on lifestyle modifications -follow-up in 3 mo or sooner if any problem arises -refer to CDTM and MTM Assessment & Plan (08/25/2023 10:45 AM EST): Blood pressure today is high, patient is clinically asymptomatic Extensive counseling done, she did not took her blood pressure medication today, I notice previous visits with similar blood pressure F/u with PCP Assessment & Plan (10/03/2022 9:42 PM EST): -Goal BP <140/90 per JNC-8 , <130/80 per ACC/AHA. -BP not at goal today; pt has not taken her medications today yet -Questionable medication adherence; discrepancy in med refill Hx per pharmacist -Continue Loasartan 100mg -Continue hydralazine 37.5 mg bid; increase to 50 mg bid if no improvement. -Pt was prescribed propanolol for anxiety and headache in the past, but pt has not been taking because pt developed hypotension -Cont working on lifestyle modifications -follow-up in 3 mo or sooner if any problem arises Assessment & Plan (09/04/2022 12:22 PM EST): -Goal BP <140/80 per JNC-8 , <130/80 per ACC/AHA. -BP not at goal today; pt attributes it to pain -Questionable medication adherence; discrepancy in med refill Hx per pharmacist -Continue Loasartan 100mg -Continue hydralazine 37.5 mg bid; increase to 50 mg bid if no improvement. -Pt was prescribed propanolol for anxiety and headache in the past, but pt has not been taking because pt developed hypotension -Cont working on lifestyle modifications -follow-up in 3 mo or sooner if any problem arises Neuropathy 07/05/2017 Assessment & Plan (12/22/2022 5:56 AM EDT): ?? Multifactorial ?? Continue pregabalin Assessment & Plan (10/03/2022 9:47 PM EST): ?? Multifactorial ?? Continue pregabalin Chronic low back pain 03/31/2017 Assessment & Plan (10/03/2022 9:46 PM EST): ?? Continue pregabalin ?? Continue lidocaine patch. ?? Anticipating to start PT/OT Assessment & Plan (09/04/2022 12:09 PM EST): ?? Improved with pregabalin. Continue at current dose. ?? Anticipating to start PT/OT Assessment & Plan (08/19/2022 11:14 AM EST): ?? Agreed to re-try pregabalin ?? 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 Assessment & Plan (09/04/2022 12:09 PM EST): -improving -avoid irritation and manage anxiety Multiple sclerosis 03/28/2017 Assessment & Plan (09/27/2023 6:08 AM EST): Neurologist: [facility], last seen in Jun 2023 Current medication: Octrevus, started in May 2022 Flare-up frequency > 2x / year Last flare-up in Jun 2020, hospitalized in [facility], dexamathasone was not given due to concern for PML Last imaging studies: MRI brain / cervical spine in Apr 2022 at [facility] Followed by urologist for neurogenic bladder, recurrent UTI and recurrent kidney stone Treatment Hx: -Tysabri (Natalizumab) q4wks, 03/2020-05/2022 (Interruption due to concern for PML 06/2020-11/2020) -Gabapentin, pregabalin for pain, but discontinued due to side effect and ineffectiveness Pt was recommended to check with neurology office for MRI appt Assessment & Plan (08/25/2023 6:51 PM EST): Neurologist: [facility], last seen in Jun 2023 Current medication: Octrevus, started in May 2022 Flare-up frequency > 2x / year Last flare-up in Jun 2020, hospitalized in [facility], dexamathasone was not given due to concern for PML Last imaging studies: MRI brain / cervical spine in Apr 2022 at [facility] Followed by urologist for neurogenic bladder, recurrent UTI and recurrent kidney stone Treatment Hx: -Tysabri (Natalizumab) q4wks, 03/2020-05/2022 (Interruption due to concern for PML 06/2020-11/2020) -Gabapentin, pregabalin for pain, but discontinued due to side effect and ineffectiveness Pt was recommended to check with neurology office for MRI appt Assessment & Plan (12/22/2022 5:55 AM EDT): ?? Neurologist: [facility], last seen on 12/20/22 ?? Current medication: Octrevus, started in May 2022, 2nd dose scheduled on 12/31/22 ?? Flare-up frequency > 2x / year ?? Last flare-up in Jun 2020, hospitalized in [facility], dexamathasone was not given due to concern for PML ?? Last imaging studies: MRI brain / cervical spine in Apr 2022 at [facility] ?? Followed by urologist for neurogenic bladder, recurrent UTI and recurrent kidney stone ?? Treatment Hx: Tysabri (Natalizumab) q4wks, 03/2020-05/2022 (Interruption due to concern for PML 06/2020-11/2020) Copaxone (weight gain), aubagio (wt gain and hair loss), Gabapentin, pregabalin for pain, but discontinued due to side effect and ineffectiveness Assessment & Plan (10/03/2022 5:51 AM EST): ?? Neurologist: [facility], last seen on 05/12/22 ?? Current medication: Octrevus, started in May 2022 ?? Flare-up frequency > 2x / year ?? Last flare-up in Jun 2020, hospitalized in [facility], dexamathasone was not given due to concern for PML ?? Last imaging studies: MRI brain / cervical spine in Apr 2022 at [facility] ?? Followed by urologist for neurogenic bladder, recurrent UTI and recurrent kidney stone ?? Treatment Hx: Tysabri (Natalizumab) q4wks, 03/2020-05/2022 (Interruption due to concern for PML 06/2020-11/2020) Gabapentin, pregabalin for pain, but discontinued due to side effect and ineffectiveness Assessment & Plan (08/19/2022 11:02 AM EST): ?? Neurologist: [facility], last seen on 04/08/22 ?? Current medication: Octrevus, started in May 2022 ?? Flare-up frequency > 2x / year ?? Last flare-up in Jun 2020, hospitalized in [facility], dexamathasone was not given due to concern for PML ?? Last imaging studies: MRI brain / cervical spine in Apr 2022 at [facility] ?? Followed by urologist for neurogenic bladder, recurrent UTI and recurrent kidney stone ?? Treatment Hx: Tysabri (Natalizumab) q4wks, 03/2020-05/2022 (Interruption due to concern for PML 06/2020-11/2020) Gabapentin, pregabalin for pain, but discontinued due to side effect and ineffectiveness Posttraumatic stress disorder 03/28/2017 Assessment & Plan (09/04/2022 12:10 PM EST): -will check the status of S Resolved Problems Problem Noted Date Diagnosed Date Resolved Date Daytime somnolence 12/19/2018 2 Encounters * This document contains information received from the source organization and may not represent a complete record from that organization. Date Type Department Care Team Description 12/10/2024 Telephone [facility] [address] [place] [address] Soumya Bagley RN Rapid Assisst 11/23/2024 Refill [facility] [address] [place] [address] Tyesha Rogers MD Other chronic pain 11/22/2024 Population Health Risk Score Community Care [facility] (C3) Department [address] [place] [phone] Provider, Population Health Generic 11/20/2024 Patient Outreach [facility] [address] [place] [address] Tyesha Rogers MD Care Coordination ([address] Aminata York telephone call outreach) 11/20/2024 Patient Outreach [address] [address] Tyesha Rogers MD Care Coordination ([facility]3 [facility] Aminata Mendozaz telephone call outreach) 11/19/2024 10:20 AM EDT Office Visit [facility] [address] [phone] Henry Choi MD Pain of right great toe (Primary Dx); Great toe pain, left; Flank pain; Hypertension, unspecified type 11/19/2024 Patient Outreach [address] [address] Esmer Molina RC Recovery Supports 11/16/[address] [address] Neha Mondragon, LUCIUS Appointment Request 11/15/2024 Orders Only [address] [address] Tyesha Rogers MD Type 2 diabetes mellitus with hyperglycemia, with long-term current use of insulin (CMS/HCC) (Primary Dx); Hypertension, unspecified type; Multiple sclerosis (CMS/HCC); Type 2 diabetes mellitus with hyperglycemia (CMS/HCC); Type 2 diabetes mellitus with hyperglycemia, with long-term current use of insulin (CMS/HCC) 11/04/2024 Patient Outreach [address] [address] Tyesha Rogers MD Care Coordination ([facility] Aminata York telephone call outreach) 11/04/2024 Patient Outreach [address] [address] Tyesha Rogers MD Transition Of Care (Tcm) 10/31/2024 Patient Outreach [address] [address] Tyesha Rogers MD Care Coordination ([facility] telephone call outreach) 10/31/2024 Patient Outreach [address] [address] Tyesha Rogers MD Care Coordination ([facility] Aminata york telephone call outreach) 10/29/2024 Orders Only [facility] [address] [place] [phone] ProviderJhony MD 10/23/2024 Patient Outreach [address] [address] Tyesha Rogers MD Care Coordination (C3 [facility] Aminata York telephone call outreach/) 10/23/2024 Patient Outreach [address] [address] Tyesha Rogers MD 10/23/[address] [address] Tyesha Rogers MD Care Management (C3[facility]- chart review) 10/04/2024 Patient Outreach [address] [address] Pierre Navarrete Outreach/No Answer (Community Outreach. No access to her apartment from the outside. Could not leave a message.) 09/24/2024 9:30 AM EST Office Visit [address] [address] Philippe Grimes MD Cocaine use (Primary Dx); Uncomplicated opioid dependence (CMS/[facility]); Tobacco use disorder; Alcohol use 09/16/[address] [address] Tyesha Rogers MD 09/13/[address] [address] Tyesha Rogers MD 09/12/[address] [phone] Tyesha Rogers MD Nurse Triage 09/12/[address] [address] Tyesha Rogers MD Neuropathy from Last 3 Months Immunizations Name Administration Dates Next Due Hep B, adult 04/24/2019, 9,09/21/2018,02/01 Influenza Whole 06/28/2012,11/08/2011 Influenza injectable quadriv alent preservative free 08/18/2022,07/23/2021,07/10/2020,07/08,06/03/2019,08/29/2018,06/05/2018 ,06/20/2017,06/28/2012,11/08/2011,11/2010 Influenza, IIV3, injectable 07/23/2021,1 ,06/03/2019,08/29,06/05/2018,06/05/2018,06/20/2017 ,06/02/2015,07/02/2014,10/14/2013,06/11,11/08/2011,06/13/2011, 1 Influenza, Unspecified 06/25/2011 Influenza, seasonal, injecta ble, preservative free 06/02/2015,10/14/2013 Pfizer Covid-19 Vaccine 12+ 03/04/2022,,06/11/2021 Pfizer Covid-19 Vaccine 12+ Bivalent 10/28/2022 Pfizer Covid-19 Vaccine 12+ richie-sucrose (Pantoja Cap) 03/04/2022 Pneumococcal Conjugate PCV 13 05/18/2016 Pneumococcal Polysaccharide PPSV23 05/18/2016, TD (adult), 2 Lf tetanus tox oid, preservative free, adsorbed 11/08/2011 Td (adult), unspecified 11/08/2011,11/08/2011 Tdap 06/08/2017,11/16/2016,11/23/2015 Family History Medical History Relation Name Comments Diabetes type II Father Hypertension Father Coronary artery disease Mother Diabetes type II Mother Hypertension Mother Relation Name Status Comments Father Mother Social History Tobacco Use Types Packs/Day Years Used Date Smoking Tobacco: Every Day Cigarettes Passive Smoke Exposure: Current Tobacco Cessation:Ready to Q uit: Not Asked; Counseling Given: Not Answered Alcohol Use Standard Drinks/Week Comments Yes 0 [...] not to disclose 2021 10:19 AM EDT Last Filed Vital Signs Vital Sign Reading Time Taken Comments Blood Pressure 155/88 11/19/2024 10:26 AM EDT Pulse 86 11/19/2024 10:26 AM EDT Temperature 36.3 ??C (97.3 ??F) 11/19/2024 10:26 AM E DT Respiratory Rate 18 11/19/2024 10:26 AM EDT Oxygen Saturation 99% 11/19/2024 10:26 AM EDT Inhaled Oxygen Concentration - - Weight 71.5 kg (157 lb 9.6 oz) 11/19/2024 10:26 AM EDT Height 157.5 cm (5' 2 ) 08/20/2024 8:47 AM EST Body Mass Index 28.83 08/20/2024 8:47 AM EST Plan of Treatment Upcoming Encounters Date Type Department Care Team (Late st Contact Info) Description 03/04/2025 1:30 PM EDT Office Visit [facility] OPTOM[facility] [address] [place] [phone] Katharine Carbone, OD [address] [place] [address] Health Maintenance Due Date Last Done Comments CT Colonography 1972 Colonoscopy 1972 Colorectal Cancer Screening 1972 FIT DNA/Cologuard 1972 FIT 1972 FOBT 1972 Sigmoidoscopy 1972 Eye Exam 1982 Alcohol/Substance Use Screening 1984 Family Planning (PISQ) 12/22/1987 Pap Smear 1993 Mammogram 07/24/2022 07/24/2020, 07/12, 07/24/2020, Additional history exists Pneumococcal Vaccine: 50+ Years (3 of 3 - PCV20 or PCV21) 2022 05/18/2016, 05/18/2016, 06/25/2011 Zoster Vaccines (1 of 2) 2022 COVID-19 Vaccine ( season) 2024 10/28/2022, 03/04/2022, 03/04/2022, Additional history exists Influenza Vaccine (#1) 2024 , 07/23/2021, 07/23/2021, Additional history exists SDOH Screening 07/05/2024 07/05/2023 Diabetes: Urine Protein Screening 08/08/2024 08/08/2023, 04/04/2022, 08/27/2021, Additional history exists Lipid Panel 08/08/2024 08/08/2023, 03/12, 03/04/2022, Additional history exists Diabetes: Hemoglobin A1C 11/18/2024 024, 08/08/2023, 08/08/2023, Additional history exists Depression Monitoring (PHQ-9) 05/07/2025 11/07/2024, 11/07/2024 Diabetes: Foot Exam 08/20/2025 08/20/2024, 08/20/2024, 08/20/2024, Additional history exists Cervical Cancer Screening 08/25/2025 HPV/Cotest 08/25/2025 08/25/2020, 04/24/2019 Depression Screening 11/07/2025 11/07/2024, 11/07/19 Tobacco Screening 11/19/2025 11/19/2024 DTaP/Tdap/Td Vaccines (4 - Td or Tdap) 06/08/2027 06/08/2017, 11/16/2016, 11/23/2015, Additional history exists RSV Patients and Patients Aged 60 years or older (1 - 1-dose 75+ series) 12/22/2047 Hepatitis B Vaccines Completed 04/24/2019, 12/04/2018, 09/21/2018, Additional history exists HIV Screening Completed 08/20/2024, 02/10, 08/27/2021 Hepatitis C Screening Completed 08/20/2024 , 03/04/2022, 08/27/2021 HIB Vaccines Aged Out No longer eligi [...] patient's age to complete this topic Meningococcal Vaccine Aged Out No abner rodolfo eligible based on patient's age to complete this topic RSV under 20 months Aged Out No longe r eligible based on patient's age to complete this topic Rotavirus Vaccines Aged Out No longer eligible based on patient's age to complete this topic Procedures Procedure Name Priority Date/Time Associated Diagnosis Comments POCT URINALYSIS DIPSTICK Routine 11/19/2024 11:13 AM EDT Flank pain CT ABDOMEN PELVIS WO CONTRAST Routine 10/25/2024 9:20 AM EST HEPATITIS C AB W/REFL TO HCV RNA, QN, PCR Routine 08/20/2024 3:16 PM EST Vaginal discharge Routine screening for STI (sexually transmitted infection) HIV 1/2 ANTIGEN/ANTIBODY, FOURTH GENERATION W/RFL Routine 08/20/2024 3:16 PM EST Vaginal discharge Routine screening for STI (sexually transmitted infection) POCT GLYCATED HEMOGLOBIN, TOTAL Routine 08/20/2024 9:02 AM EST Type 2 diabetes mellitus with hyperglycemia, with long-term current use of insulin (CMS/HCC) ALBUMIN, RANDOM URINE W/CREATININE Routine 08/08/2023 2:21 PM EST Type 2 diabetes mellitus with hyperglycemia, with long-term current use of insulin (CMS/HCC) LIPID PANEL WITH REFLEX TO DIRECT LDL Routine 08/08/2023 2:18 PM EST Type 2 diabetes mellitus with hyperglycemia, with long-term current use of insulin (CMS/HCC) ZZZ HISTORICAL HPV E6/E7 RFLX VENU 16 / Routine 08/25/2020 11:45 AM EST MAMMOGRAM GENERIC Routine 07/24/2020 10: 40 AM EST from Last 3 Months or Most Recently Relevant to Health Maintenance Results * POCT urinalysis dipstick manually resulted (11/19/2024 11:13 AM EDT) Color, UA Yellow Clarity, UA Clear Glucose, UA Few 15 Comment:500 mg/dL Bilirubin, UA Negative Ketones, UA Negative Spec Grav, UA 1.020 Blood, UA Negative Negative, None Detected pH, UA 5.5 Protein, UA Trace Urobilinogen, UA 0.2 Leukocytes, UA Negative Negative, Rare, Trace Nitrite, UA Negative Negative, None Detected Urine 11/19/2024 11:1 3 AM EDT Henry Choi MD POINT OF CARE TEST ENTER/EDIT OR DERABLES Final Result * CT Abdomen Pelvis w/o Contrast (10/25/2024 9:20 AM EST) Anatomical Region Laterality Modality Body, Pelvis, Abdomen Computed T omography Historical Provider MD MAURER CT PROCEDURES Final R esult * Hepatitis C Antibody with Reflex to HCV, RNA, Quantitative, Real-Time PCR (08/20/2024 3:16 PM EST) Hepatitis C Antibody Nonreactive Nonreactive [facility] Comment:Antibodies to HCV no t detected; does not exclude early acuteHCV infection. Blood Venous blood specimen / Unknown 08/20/2024 3:16 PM EST 08/20/2024 4:00 PM EST us Umer Montes De Oca MD LAB BLOOD ORDERABLES Final Resul t Performing Organization Address City/[facility]/ZIP Co de Phone Number [facility] [address] [place] [phone] * HIV-1/2 Antigen and Antibodies, Fourth Generation, with Reflexes (08/20/2024 3:16 PM EST) HIV AB/AG Nonreactive Nonreactive [facility] Comment:HIV-1 p24 Ag and/or HIV-1/HIV-2 Ab not detected.A test result that is nonreactive does not exclude thepossibility of exposure to or infection with HIV-1 and/orHIV-2. Nonreactive results in this assay for individualswith prior exposure to HIV-1 and/or HIV-2 may be due toantigen and antibody levels that are below the limit ofdetection of this assay.The [employer] HIV Ag/Ab Combo assay result andsupplemental assay results should be interpreted inconjunction with the patient's clinical presentation,history and other laboratory results. If the results areinconsistent with clinical evidence, additional testing issuggested to confirm the result. Blood Venous blood specimen / Unknown 08/20/2024 3:16 PM EST 08/20/2024 4:00 PM EST us Umer Montes De Oca MD LAB BLOOD ORDERABLES Final Resul t [facility] [address] [place] [phone] * (ABNORMAL) POCT A1C (08/20/2024 9:02 AM EST) Hemoglobin A1C 14.1(A) 4.0 - 6.0 % Blood 08/20/2024 9:02 AM EST us Umer Montes De Oca MD POINT OF CARE TEST ENTER/EDIT OR DERABLES Final Result * Albumin, Random Urine W/Creatinine (08/08/2023 2:21 PM EST) Creatinine, Urine 89.39 mg/dL [facility] Microalbumin Urine 17.0 mg/L [facility] Microalbum Creatinine Ratio Ur 19.0 <30 ug/mg cr [facility] Comment:Albumin/Creatinine R atio Reference Ranges: Normal: < 30 ug/mg creatinine Microalbuminuria: 30 - 300 ug/mg creatinineClinical Albuminuria: > 300 ug/mg creatinine Urine 08/08/2023 2:21 PM EST 08/08/2023 3:47 PM EST us Tyesha Rogers MD LAB URINE ORDERABLES Final Resul t Performing Organization Address City/State/[facility] Co de Phone Number [facility] [address] [place] [phone] * (ABNORMAL) Lipid Panel with Reflex to Direct LDL (08/08/2023 2:18 PM EST) Triglycerides 227(H) <150 mg/dL [facility] Comment:Desirable Triglyceri de: less than 150 mg/dLBorderline High Triglyceride 150-199 mg/dLHigh Triglyceride: 200-499 mg/dLVery High Triglyceride: greater than or equal to 5OO mg/dL Cholesterol 239(H) <200 mg/dL [facility] Comment:Desirable Cholestero l: less than 200 mg/dLBorderline High Cholesterol: 200-239 mg/dLHigh Cholesterol: greater than 239 mg/dL LDL Cholesterol Calculated 134(H) <100 mg/dL [facility] Comment:Desirable LDL: less than 100 mg/dLNear Optimal/Above Optimal LDL: 110- 129 mg/dLBorderline High LDL: 130-159 mg/dLHigh LDL: 160-189 mg/dLVery High LDL: greater than or equal to 190 mg/dL HDL Cholesterol 60 >40 mg/dL [facility] Comment:Desirable HDL: great er than 40 mg/dL Note: This HDL assay may give artificially low results in patients with liver disease. Blood 08/08/2023 2:18 PM EST 08/08/2023 3:47 PM EST us Tyesha Rogers MD LAB BLOOD ORDERABLES Final Resul t Performing Organization Address City/[facility]/ZIP Co de Phone Number [facility] [address] [place] [address] [phone] * HPV E6/E7 RFLX VENU 16 18/45 (08/25/2020 11:45 AM EST) HPV mRNA E6/E7 rflx Not Detected Not Detected [facility] Comment: This test was performed using the APTIMA HPV Assay ([employer] This assay detects E6/E7 viral messenger RNA (mRNA) from 14 high-risk HPV types (16,18,31,33,35,39,45,51,52,56,58,59,66,68). The analytical performance characteristics of this assay have been determined by [employer]. The modifications have not been cleared or approved by the FDA. This assay has been validated pursuant to the CLIA regulations and is used for clinical purposes. THIS TEST WAS PERFORMED AT: [facility] [address] [place] [address],[address] [place], [place] ??[phone] ALDA NIXON MD 08/25/2020 11:4 5 AM EST us Sarina Ann HISTORICAL/NON ORDERABLE LABS Fi nal Result Performing Organization Address City/[facility]/ZIP Co de Phone Number [facility] [address] * Mammography Report 1 (07/24/2020 10:40 AM EST) Anatomical Region Laterality Modality Breast Bilateral Mammography 07/24/2020 10:4 0 AM EST Narrative 08/24/2020 12:06 PM EST Refer to the Notes tab for result details [facility] Procedure: Mammography Report 1 Procedure Note ProviderJhony MD - 12/03/2022 Refer to the Notes tab for result details [facility] Procedure: Mammography Report 1 Tyesha Rogers MD IMG BI PROCEDURES Final Result from Last 3 Months or Most Recently Relevant to Health Maintenance [facility] Care Teams Beer Maker Relationship Specialty Start Date End Date Tyesha Rogers MD [address] [place] [id number] PCP - General Family Medicine 04/25/19
== END 2024-12-10 16:13 | disposition home or self-care (01) ==
PROVIDERS: Emergency Provider Emergency Medicine; PCP Family Medicine
DX: L50.9 Urticaria, unspecified (principal); R06.00 Dyspnea, unspecified
CPT/HCPCS: 99282; 99283

== ENCOUNTER 2025-01-14 11:53 | Outpatient (REF) | payer MEDICAID, SELFPAY ==
[2025-01-14 13:20] LABS: MANUAL DIFF FLAG NO
--- OUTSIDE RECORDS SUMMARY | 2025-01-14 13:27 | XMS_ITS | Encounter Summary ---
Author Organization [facility] Address [address] [place] [address] Care Team Providers Care Oil Spreader Operator Name Role Phone Imelda Camarillo DO Primary Care Pro vider Unavailable Casandra Duong MD Primary Care Provider Lillian Zimmer Primary Care Provider Pilar Gustafson MD Primary Care Provider Donna Brown MD Primary Care Provider Tyesha Cheatham Primary Care Provider Martinez hunter Encounter Details Date Type Department Care Team Description 01/23/2015 [facility] Medical Records [address] [place] [address] KobyPatrice david [address] [place] [address], 3[address] [place], [place] [id number] Social History Tobacco Use Types Packs/Day Years Used Date Smoking Tobacco: Every Day Cigarettes 30 Smokeless Tobacco: Never Comments:trying to quit Alcohol Use Standard Drinks/Week Comments No 0 (1 standard drink = 0.6 oz pur e alcohol) Sex Assigned at Date Recorded Not on file documented as of this encounter Plan of Treatment Not on file documented as of this encounter Visit Diagnoses Not on filedocumented in this encounter Care Teams Oil Spreader Operator Relationship Specialty Start Date End Date Imelda Camarillo DO PCP - General Internal Medicine 12/26/14 08/30/15 Casandra Duong MD PCP - General Internal Medicine 08/31/15 01/07/16 [facility] Pcp PCP - General Internal Medicine 01/08/16 09/14/16 Pilar Coombs MD PCP - General Internal Medicine 09/15/16 01/07/19 Donna Donis MD PCP - General Internal Medicine 01/08/19 12/01/21 Tyesha Rogers PCP - General Family Practice 12/02/21 documented as of this encounter
--- OUTSIDE RECORDS SUMMARY | 2025-01-14 13:27 | XMS_ITS | Encounter Summary ---
Author Organization [employer] Address [address] [facility] [address] [place] [address] Care Team Providers Care Geographic Information System Analyst Name Role Phone Tyesha Rogers MD Primary Care Provider [phone] Encounter Details Date Type Department Care Team (Late st Contact Info) Description 12/10/2024 Orders Only [facility] MEDICINE [address] [place], [place] [phone] Tyesha Rogers MD [address] [place], [place] [phone] Neuropathy Social History Tobacco Use Types Packs/Day Years [...] housing situation today? I have dominga olmstead 12/11/[address] you li ve. Do you have problems with any of the following? None of the above 12/11/2024 Food Insecurity Answer Date Recorded Within the past 12 months, y ou worried that your food would run out before you got money to buy more: Sometimes True 2024 Within the past 12 months,th e food you bought just didn't last and you didn't have enough money to get more: Sometimes True 12/11/2024 Transportation Answer Date Recorded In the past 12 months, has l ack of transportation kept you from medical appts, meetings, work or from getting things needed for daily living? No 12/11/2024 Utilities Answer Date Recorded In the past 12 months, has t he electric, gas, oil or water company threatened to shut off services in your home? No 12/11/2024 Depression Answer Date Recorded Patient Health Questionnaire-2 Score 4 11/07/2024 Internet Access Answer Date Recorded Internet Access Q1 Yes 12/11/2024 Internet Access Q2 Not on file 12/11/2024 Comments Unknown Sex and Gender Information Value [...] Description 03/04/2025 1:30 PM EDT Office Visit [facility] OPTOMETRY [address] [place] [address] Katharine Carbone, OD [address] [place] [address] 04/25/2025 10:15 AM EDT Office Visit [facility] MEDICINE [address] [place] [address] Pieter Alcantar MD [address] [place] [address] documented as of this encounter Visit Diagnoses Diagnosis Neuropathy Mononeuritis of unspecified site documented in this encounter Additional Health Concerns Assessment Noted Time PHQ-9 Depression Total Score: 15 025 11:52 AM EST documented as of this encounter Care Teams Geographic Information System Analyst Relationship Specialty Start Date End Date Tyesha Rogers MD [address] [place] [address] PCP - General Family Medicine 04/25/19 documented as of this encounter
--- OUTSIDE RECORDS SUMMARY | 2025-01-14 13:27 | XMS_ITS | Encounter Summary ---
Author Organization [facility] Address [address] [place] [address] Care Team Providers Care Forensic Social Worker Name Role Phone Imelda Camarillo DO Primary Care Pro vider Unavailable Casandra Duong MD Primary Care Provider Unavaila wendy Frederick, Pcp Primary Care Provider Unavailabl Pilar Soares MD Primary Care Provider Unavail able Donna Donis MD Primary Care Provider Tyesha Cheatham Primary Care Provider Unavailabl e Reason for Visit * Reason Onset Date Comments Form 03/23/2015 [facility] Encounter Details Date Type Department Care Team Description 03/23/2015 Telephone Adult [address] [address] Imelda Camarillo DO Form ([employer]) Social History Tobacco Use Types Packs/Day Years Used Date Smoking Tobacco: Every Day Cigarettes 0.2 Comments:4 cigarettes per da y Alcohol Use Standard Drinks/Week Comments No 0 (1 standard drink = 0.6 oz pur e alcohol) Sex Assigned at Date Recorded Not on file documented as of this encounter Miscellaneous Notes * Telephone Encounter - Juliette Valenzuela M.A. - 03/24/2015 4:07 PM EDT Left message for pt , we need more information We need the account number in order to process. If pt calls back please ask for this. * Telephone Encounter - Jael Gillette M.A. - 03/23/2015 4:25 PM EDT Pt states she needs refridge to keep insulin needs dr to go on-line to protect her from electricityfrom being shut off, please advise documented in this encounter Plan of Treatment Not on file documented as of this encounter Visit Diagnoses Not on filedocumented in this encounter Care Teams Forensic Social Worker Relationship Specialty Start Date End Date Imelda Camarillo DO PCP - General Internal Medicine 12/26/14 08/30/15 Casandra Duong MD PCP - General Internal Medicine 08/31/15 01/07/16 [facility], Pcp PCP - General Internal Medicine 01/08/16 09/14/16 Pilar Coombs MD PCP - General Internal Medicine 09/15/16 01/07/19 Donna Donis MD PCP - General Internal Medicine 01/08/19 12/01/21 Tyesha Rogers PCP - General Family Practice 12/02/21 documented as of this encounter
--- OUTSIDE RECORDS SUMMARY | 2025-01-14 13:27 | XMS_ITS ---
Author Organization [employer] Address [address] [place] [address] Care Team Providers Care Wire Lather Name Role Phone Tyesha Rogers MD Primary Care Provider [phone] [facility] Status:Enrolled (Active) Start date:12/11/2024 Enrollment date:12/11/2024 Enrollment reason:ADT Feed Overview ED- Pt went to [facility] on 12/10/24. Case Team Name Relationship Phone Aminata York (Responsible Staff) [phone] Continued Care and Services Coordination
--- OUTSIDE RECORDS SUMMARY | 2025-01-14 13:27 | XMS_ITS | Encounter Summary ---
Author Organization [facility] Address [address] [place] [address] Care Team Providers Care Phlebotomist Associate Name Role Phone Donna Donis MD Primary Care Provider Tyesha Cheatham Primary Care Provider Martinez hunter Encounter Details Date Type Department Care Team Description 01/21/2019 Telephone General Surgery - [place] [address] [facility] [address] [place] [address] Heidi Arrieta MD [address] [place] [address] [address] [place], [place] [phone] Social History Tobacco Use Types Packs/Day Years Used Date Smoking Tobacco: Every Day Cigarettes 30 Smokeless Tobacco: Never Comments:trying to quit Alcohol Use Standard Drinks/Week Comments No 0 (1 standard drink = 0.6 oz pur e alcohol) Sex Assigned at Date Recorded Not on file documented as of this encounter Miscellaneous Notes * Telephone Encounter - Rima Rosa - 01/21/2019 1:[address] Donna Donis called the office today looking to speak with Dr. Arrieta. This is not urgent. Dr. Donis can be reached at [phone]. documented in this encounter Plan of Treatment Not on file documented as of this encounter Visit Diagnoses Not on filedocumented in this encounter Care Teams Phlebotomist Associate Relationship Specialty Start Date End Date Donna Donis MD PCP - General Internal Medicine 01/08/19 12/01/21 Tyesha Rogers PCP - General Family Practice 12/02/21 documented as of this encounter
--- OUTSIDE RECORDS SUMMARY | 2025-01-14 13:27 | XMS_ITS | Encounter Summary ---
Author Organization [employer] Address [address] [facility] 7 [place] [address] Care Team Providers Care Engagement Engineer Name Role Phone Tyesha Rogers MD Primary Care Provider [phone] Reason for Visit * Reason Onset Date Comments Appointment Request 01/13/2025 Encounter Details Date Type Department Care Team ([facility] st Contact Info) Description 01/13/2025 Telephone [facility] MEDICINE [address] [place] [address] Tyesha Rogers MD [address] [place] [address] Appointment Request Social History Tobacco Use Types Packs/Day Years Used Date Smoking Tobacco: Every Day Cigarettes Passive Smoke Exposure: Current Alcohol Use Standard Drinks/Week Comments Yes 0 (1 standard drink = 0.6 oz pur e alcohol) Depression Answer Date Recorded Patient Health Questionnaire-9 Score 14 12/31/2024 Patient Health Questionnaire-9 Score 14 12/31/2024 Last PHQ-9: Questionnaire Data Not on file 0 12/31/2024 Housing Stability Answer Date Recorded What is your housing situation today? I have dominga olmstead 12/11/[address] you li ve. Do you have problems with any of the following? None of the above 12/11/2024 Food Insecurity Answer Date Recorded Within the past 12 months, y ou worried that your food would run out before you got money to buy more: Never True 01/14/2025 Within the past 12 months,th e food you bought just didn't last and you didn't have enough money to get more: Never True 02/2025 Transportation Answer Date Recorded In the past [...] Answer Date Recorded Patient Health Questionnaire-2 Score 2 12/31/2024 Internet Access Answer Date Recorded Internet Access [...] encounter Miscellaneous Notes * Telephone Encounter - Zoey Reyes - 01/13/2025 9:20 AM EDT Tc from pt requesting appointment that was scheduled for Jan 14 2025 that was cancelled to be rescheduled due to machine sign writer not finding availability please return call to pt to be scheduled. Callback number [phone] Appointment type - Follow Up Notes - F/U allergic reaction. Sent to ED at last appt. Provider - Tyesha Rogers [phone] documented in this encounter Plan of Treatment Upcoming Encounters Date Type Department Care Team (Late st Contact Info) Description 03/04/2025 1:30 PM EDT Office Visit [facility] OPTOMETRY [address] [place] [address] Raf, Katharine, OD [address] [place] [address] 04/25/2025 10:15 AM EDT Office Visit [facility] MEDICINE [address] [place] [address] Pieter Alcantar MD [address] [place] [address] documented as of this encounter Visit Diagnoses Not on filedocumented in this encounter Additional Health Concerns Assessment Noted Time PHQ-9 Depression Total Score: 14 025 1:25 PM EDT documented as of this encounter Care Teams Engagement Engineer Relationship Specialty Start Date End Date Tyesha Rogers MD [address] [place] [address] PCP - General Family Medicine 04/25/19 documented as of this encounter
--- OUTSIDE RECORDS SUMMARY | 2025-01-14 13:27 | XMS_ITS | Encounter Summary ---
Author Organization [facility] Address [address] [place] [address] Care Team Providers Care Data Communications Analyst Name Role Phone Donna Donis MD Primary Care Provider Tyesha Cheatham Primary Care Provider Unavailabl e Encounter Details Date Type Department Care Team Description 07/11/2019 Orders Only Medical Records [address] [place] [address] Abstract, Provider Social History Tobacco Use Types Packs/Day Years Used Date Smoking Tobacco: Every Day Cigarettes 30 Smokeless Tobacco: Never Comments:trying to quit Alcohol Use Standard Drinks/Week Comments No 0 (1 standard drink = 0.6 oz pur e alcohol) Sex Assigned at Date Recorded Not on file documented as of this encounter Plan of Treatment Not on file documented as of this encounter Procedures Procedure Name Priority Date/Time Associated Diagnosis Comments OUTSIDE PLAIN FILM Routine 07/10/2019 documented in this encounter Results * OUTSIDE PLAIN FILM (07/10/2019) Naman Castaneda MD RADIOLOGY documented in this encounter Visit Diagnoses Not on filedocumented in this encounter Care Teams Data Communications Analyst Relationship Specialty Start Date End Date Donna Donis MD PCP - General Internal Medicine 01/08/19 12/01/21 Tyesha Rogers PCP - General Family Practice 12/02/21 documented as of this encounter
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
--- OUTSIDE RECORDS SUMMARY | 2025-01-14 13:27 | XMS_ITS | Encounter Summary ---
Author Organization [employer] Address [address] [facility] 7[address] [place] [address] Care Team Providers Care Plug Paster Name Role Phone Tyesha Rogers MD Primary Care Provider [phone] Encounter Details Date Type Department Care Team ([facility] st Contact Info) Description 07/17/2023 Orders Only [facility] MEDICINE [address] [place] [address] Kinjal Ch MD [address] [place] [address] Social History Tobacco Use Types Packs/Day Years [...] Description 03/04/2025 1:30 PM EDT Office Visit [facility] OPTOMETRY [address] [place] [address] Raf, Katharine, OD [address] [place] [address] 04/25/2025 10:15 AM EDT Office Visit [facility] MEDICINE [address] [place] [address] Pieter Alcantar MD [address] [place] [address] documented as of this encounter Visit Diagnoses Not on filedocumented in this encounter Additional Health Concerns Assessment Noted Time PHQ-9 Depression Total Score: 21 023 9:42 AM EDT documented as of this encounter Care Teams Plug Paster Relationship Specialty Start Date End Date Tyesha Rogers MD [address] [place] [address] PCP - General Family Medicine 04/25/19 documented as of this encounter
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
--- OUTSIDE RECORDS SUMMARY | 2025-01-14 13:27 | XMS_ITS | Encounter Summary ---
Author Organization [employer] Address [address] [facility] 7[address] [place] [address] Care Team Providers Care Wet End Supervisor Name Role Phone Tyesha Rogers MD Primary Care Provider [phone] Encounter Details Date Type Department Care Team (Latest Contact Info) Description 01/14/2025 Travel Social History Tobacco Use Types Packs/Day Years Used Date Smoking Tobacco: Some Days Cigarettes Passive Smoke Exposure: Current Alcohol Use [...] PM EDT Office Visit [facility] OPTOMETRY [address] [place] [address] Raf, Katharine, OD [address] [place] [address] 04/25/2025 10:15 AM EDT Office Visit [facility] MEDICINE [address] [place] [address] Pieter Alcantar MD [address] [place] [address] documented as of this encounter Visit Diagnoses Not on filedocumented in this encounter Additional Health Concerns Assessment Noted Time PHQ-9 Depression Total Score: 14 025 1:25 PM EDT documented as of this encounter Care Teams Wet End Supervisor Relationship Specialty Start Date End Date Tyesha Rogers MD [address] [place] [address] PCP - General Family Medicine 04/25/19 documented as of this encounter
--- OUTSIDE RECORDS SUMMARY | 2025-01-14 13:27 | XMS_ITS | Encounter Summary ---
Author Organization [employer] Address [address] [facility] [address] [place] [address] Care Team Providers Care Tobacco Grader Name Role Phone Tyesha Rogers MD Primary Care Provider [phone] Reason for Visit * Reason Comments Care Coordination Encounter Details Date Type Department Care Team ([facility] [address] [facility] Contact Info) Description 01/10/2025 Patient Outreach [facility] MEDICINE [address] [place] [address] Tyesha Rogers MD [address] [place] [address] Care Coordination Social History Tobacco Use Types Packs/Day Years [...] is your housing situation today? I have domigna olmstead 12/11/[address] you [...] AM EDT documented as of this encounter Progress Notes * Aminata York - 01/10/2025 11:49 AM EDT CHW Aminata York placed outbound call to patient for follow up call on SDOH needs. No answer at thistime. LVM introducing herself from [facility] CM Department. Requested call back. CHW reinforced direct contact information or CM for any additional questionsor concerns and extended clinic hours on Mondays and Wednesdays, and Walk-In Urgent Care Located inLobby of [facility]. Patient provided with after-hours line for [facility], , which offer night time triage service and option to transfer to phonograph cartridge assembler provider if needed. CHW will attempt another followup call within 10 days. documented in this encounter Plan of Treatment Upcoming Encounters Date Type Department Care Team (Late st Contact Info) Description 03/04/2025 1:30 PM EDT Office Visit [facility] OPTOMETRY [address] [place], [place] [phone] Katharine Carbone, OD [address] [place], [place] [id number] 04/25/2025 10:15 AM EDT Office Visit [facility] MEDICINE [address] [place] [address] Pieter Alcantar MD [address] [place] [address] documented as of this encounter Visit Diagnoses Not on filedocumented in this encounter Additional Health Concerns Assessment Noted Time PHQ-9 Depression Total Score: 14 025 1:25 PM EDT documented as of this encounter Care Teams Tobacco Grader Relationship Specialty Start Date End Date Tyesha Rogers MD [address] [place] [address] PCP - General Family Medicine 04/25/19 documented as of this encounter
--- OUTSIDE RECORDS SUMMARY | 2025-01-14 13:27 | XMS_ITS | Encounter Summary ---
Author Organization [facility] Address [address] [place] [address] Care Team Providers Care Research Center Partner Name Role Phone Imelda Camarillo DO Primary Care Pro vider Unavailable Casandra Duong MD Primary Care Provider Barrie Frederick, Pcp Primary Care Provider Pilar Gustafson MD Primary Care Provider Donna Brown MD Primary Care Provider Tyesha Cheatham Primary Care Provider Martinez hunter Encounter Details Date Type Department Care Team Description 01/24/2015 [facility] Medical Records [address] [place] [id number] Laurie Jimenez MD Social History Tobacco Use Types Packs/Day [...] on filedocumented in this encounter Care Teams Research Center Partner Relationship Specialty Start Date End Date Imelda Camarillo DO PCP - General Internal Medicine 12/26/14 08/30/15 Casandra Duong MD PCP - General Internal Medicine 08/31/15 01/07/16 [facility], Pcp PCP - General Internal Medicine 01/08/16 09/14/16 Pilar Coombs MD PCP - General Internal Medicine 09/15/16 01/07/19 Donna Donis MD PCP - General Internal Medicine 01/08/19 12/01/21 Tyesha Rogers PCP - General Family Practice 12/02/21 documented as of this encounter
--- OUTSIDE RECORDS SUMMARY | 2025-01-14 13:27 | XMS_ITS ---
Author Organization [employer] Address [address] [place] [address] [address] [place] [address] Care Team Providers Care Support Staff Name Role Phone Tyesha Rogers MD Primary Care Provider [phone] CM Complex Status:Outreach In Progress (Enrolling) Start date:12/11/2024 Enrollment reason:ADT Feed Overview ED- Pt went to [facility] on 12/10/24. Case Team Name Relationship Phone Angel Sanchez RN Registered Nurse(Responsible St aff) [phone] Continued Care and Services Coordination
--- OUTSIDE RECORDS SUMMARY | 2025-01-14 13:27 | XMS_ITS | Encounter Summary ---
Author Organization [employer] Address [address] [facility] [address] [place] [address] Care Team Providers Care Invoicing Specialist Name Role Phone Tyesha Rogers MD Primary Care Provider [phone] Encounter Details Date Type Department Care Team ([facility] st Contact Info) Description 01/14/2025 11:15 AM EDT Office Visit [facility] [address] [place], [place] [phone] Tyesha Rogers MD [address] [place] [address] Multiple sclerosis (CMS/HCC) (Primary Dx); Hypertension, unspecified type; Ischemic heart disease; Coronary artery disease involving [place] coronary artery of [place] heart, unspecified whether angina present; Recurrent kidney stones; Neurogenic bladder; Cervical dysplasia; Type 2 diabetes mellitus with hyperglycemia, with long-term current use of insulin (CMS/HCC); Tobacco use; Substance use disorder; Opioid use disorder; Mood disorder (CMS/HCC); Severe episode of recurrent major depressive disorder, without psychotic features (CMS/HCC); Posttraumatic stress disorder; Dyslipidemia; Chronic midline low back pain, unspecified whether sciatica present; Encounter for immunization; Chronic toe pain, left foot; Palpitations; Routine screening for STI (sexually transmitted infection) Social History Tobacco Use Types Packs/Day Years Used Date Smoking Tobacco: Some Days Cigarettes Passive Smoke Exposure: Current Tobacco Cessation:Ready [...] AM EDT documented as of this encounter Last Filed Vital Signs Vital Sign Reading Time Taken Comments Blood Pressure 168/108 01/14/2025 11:33 AM EDT Pulse 73 01/14/2025 10:59 AM EDT Temperature 36.3 ??C (97.3 ??F) 01/14/2025 10:59 AM E DT Respiratory Rate 19 01/14/2025 10:59 AM EDT Oxygen Saturation 96% 01/14/2025 10:59 AM EDT Inhaled Oxygen Concentration - - Weight 73.8 kg (162 lb 9.6 oz) 01/14/2025 10:59 AM EDT Height - - Body Mass Index 29.74 08/20/2024 8:47 AM EST documented in this encounter Miscellaneous Notes * Assessment & Plan Note - Randa Lockett MA - 01/14/2025 11:16 AM EDT Associated Problem(s): Tobacco use - work on smoking cessation - refer to lung cancer screening program * Assessment & Plan Note - Randa Lockett MA - 01/14/2025 11:16 AM EDT Associated Problem(s): Posttraumatic stress disorder -will check the status of BHS * Assessment & Plan Note - Randa Lockett MA - 01/14/2025 11:15 AM EDT Associated Problem(s): Dyslipidemia Current medication: atorvastatin 40 mg at bedtime Last lipid profile: 08/08/23 Continue current medication and lifestyle modification * Assessment & Plan Note - Randa Lockett MA - 01/14/2025 11:14 AM EDT Associated Problem(s): Chronic low back pain Continue pregabalin Continue lidocaine patch. Anticipating to start PT/OT * Assessment & Plan Note - Randa Lockett MA - 01/14/2025 11:14 AM EDT Associated Problem(s): Mood disorder (CMS/HCC) Current Dx: Bipolar disorder, sometimes she is diagnosed with MDD. Occasionally with Reardan II due toborderline tendency and conversion disorder Hx suicide attempt several times (one time overdosed insulin) [facility] provider: [facility], Dr. Alex is psychiatrist, previously Albina Duff was her therapist. Encouraged to reach out to her [facility] therapist and psychiatrist for her concerns and medication management She was able to contract her safety today * Assessment & Plan Note - Randa Lockett MA - 01/14/2025 11:13 AM EDT Associated Problem(s): Type 2 diabetes mellitus with hyperglycemia (CMS/HCC) Hgb A1C 12.6% 01/14/25, slight increase from 12.4% on 08/08/23. Continue working on lifestyle modifications Continue checking BG; discussed about CGM, pt will consider Improve medication adherence Continue basal insulin, Tresiba, increase from 25 units to 26 units at bedtime Continue metformin ER 1000 mg bid Discussed about SGLT-2 inhibitor, but pt has frequent urinary symptoms (MS, recurrent nephrolithiasis); therefore, will hold off at this time Treatment Hx: Trulicity was discontinued in March 2022 when pt developed pancreatitis. Microalbumin test: 08/08/23 Lipid profile: 08/08/23 Diabetic eye exam: Up coming eye appointment in February with [facility] Foot exam: 01/14/25 Neuropathy; callus; previously written a script for diabetic footwear. She did not go to pickup driver the shoes. Referred to pit shovel operator * Assessment & Plan Note - Randa Lockett MA - 01/14/2025 11:13 AM EDT Associated Problem(s): Recurrent kidney stones Urologist: [facility], Dr. Duran, last seen in Aug 2021 S/p right ESWL on 01/29/20 S/p left cystoscopy, retrograde laser and stent on 02/28/20 S/p removal on 04/07/21 S/p cystoscopy and ureteroscopy on 08/23/21 Drink water > 2L / day * Assessment & Plan Note - Randa Lockett MA - 01/14/2025 11:12 AM EDT Associated Problem(s): Ischemic heart disease - loose hand packer: [facility]. Last seen in December 2022 - CAD, remote non-STEMI on 10/29, reported moderate CAD - History of DVT and likely PEA at [facility], on apixaban and 12 contrast allergy with anaphylaxis. * Assessment & Plan Note - Randa Lockett MA - 01/14/2025 11:12 AM EDT Associated Problem(s): Hypertension Blood pressure today is high, patient is clinically asymptomatic Extensive counseling done, she did not took her blood pressure medication today, I notice previous visits with similar blood pressure F/u with PCP - Increase amlodipine from 5 mg to 10 mg 01/14/25 * Assessment & Plan Note - Randa Lockett MA - 01/14/2025 11:10 AM EDT Associated Problem(s): Multiple sclerosis (CMS/HCC) Neurologist: [facility], last seen in Jun 2023 Current medication: Octrevus, started in May 2022 Flare-up frequency > 2x / year Last flare-up in Jun 2020, hospitalized in [facility], dexamathasone was not given due to concern for PML Last imaging studies: MRI brain / cervical spine in Apr 2022 at [facility] Followed by urologist for neurogenic bladder, recurrent UTI and recurrent kidney stone Treatment Hx: -Tysabri (Natalizumab) q4wks, 03/2020-05/2022 (Interruption due to concern for PML 06/2020-11/2020) -Gabapentin, pregabalin for pain, but discontinued due to side effect and ineffectiveness Pt was recommended to check with neurology office for MRI appt documented in this encounter Plan of Treatment Upcoming Encounters Date Type Department Care Team (Late st Contact Info) Description 03/04/2025 1:30 PM EDT Office Visit [facility] OPTOMETRY [address] [place] [address] Raf, Katharine, OD [address] [place] [address] 04/25/2025 10:15 AM EDT Office Visit [facility] [address] [place] [address] Pieter Alcantar MD [address] [place], [place] [phone] Scheduled Orders Name Type Priority Associated Diagnoses Orde r Schedule Vitamin B12 (Cobalamin) and Folate Panel, Serum Lab Routine Type 2 diabetes mellitus with hyperglycemia, with long-term current use of insulin ([facility]) Expected: 01/14/2025 (Approximate), Expires: 01/14/2026 Lipid Panel with Reflex to Direct LDL Lab Routine Type 2 diabetes mellitus with hyperglycemia, with long-term current use of insulin ([facility]) Dyslipidemia Expected: 01/14/2025 (Approximate), Expires: 01/14/2026 Albumin, Random Urine W/Creatinine Lab Routine Type 2 diabetes mellitus with hyperglycemia, with long-term current use of insulin ([facility]) Dyslipidemia Expected: 01/14/2025 (Approximate), Expires: 01/14/2026 Comprehensive Metabolic Panel Lab Routine Hypertension, unspecified type Dyslipidemia Expected: 01/14/2025 (Approximate), Expires: 01/14/2026 TSH with Reflex to Free T4 Lab Routine Palpitations Expected: 01/14/2025 (Approximate), Expires: 01/14/2026 Syphilis Screen Lab Routine Routine screening for STI (sexually transmitted infection) Expected: 01/14/2025 (Approximate), Expires: 01/14/2026 Hepatitis C Antibody with Reflex to HCV, RNA, Quantitative, Real-Time PCR Lab Routine Routine screening for STI (sexually transmitted infection) Expected: 01/14/2025 (Approximate), Expires: 01/14/2026 Hepatitis B Surface Antibody, Qualitative Lab Routine Routine screening for STI (sexually transmitted infection) Expected: 01/14/2025 (Approximate), Expires: 01/14/2026 Hepatitis B Core Antibody, Total Lab Routine Routine screening for STI (sexually transmitted infection) Expected: 01/14/2025 (Approximate), Expires: 01/14/2026 Chlamydia/N. Gonorrhoeae RNA, TMA, Urogenitial Microbiology Routine Routine screening for STI (sexually transmitted infection) Expected: 01/14/2025 (Approximate), Expires: 01/14/2026 HIV-1/2 Antigen and Antibodies, Fourth Generation, with Reflexes Lab Routine Routine screening for STI (sexually transmitted infection) Expected: 01/14/2025 (Approximate), Expires: 01/14/2026 Hepatitis B surface antigen, EIA Lab Routine Routine screening for STI (sexually transmitted infection) Expected: 01/14/2025 (Approximate), Expires: 01/14/2026 Hepatitis A Antibody, Total Lab Routine Routine screening for STI (sexually transmitted infection) Expected: 01/14/2025 (Approximate), Expires: 01/14/2026 Uric acid Lab Routine Chronic toe pain, left foot Expected: 01/14/2025, Expires: 01/14/2026 C-reactive Protein Lab Routine Chronic toe pain, left foot Expected: 01/14/2025 (Approximate), Expires: 01/14/2026 Sed Rate by Modified [place] Lab Routine Chronic toe pain, left foot Expected: 01/14/2025 (Approximate), Expires: 01/14/2026 Uric acid Lab Routine Chronic toe pain, left foot Expected: 01/14/2025, Expires: 01/14/2026 CBC auto differential Lab Routine Chronic toe pain, left foot Expected: 01/14/2025 (Approximate), Expires: 01/14/2026 documented as of this encounter Procedures Procedure Name Priority Date/Time Associated Diagnosis Comments POCT GLYCOSYLATED HEMOGLOBIN (HGB A1C) Routine 01/14/2025 10:57 AM EDT Type 2 diabetes mellitus with hyperglycemia, with long-term current use of insulin ([facility]) POCT GLUCOSE Routine 01/14/2025 10:53 AM EDT Type 2 diabetes mellitus with hyperglycemia, with long-term current use of insulin ([facility]) documented in this encounter Results * (ABNORMAL) POCT glycosylated hemoglobin (Hgb A1c) (01/14/2025 10:57 AM EDT) Hemoglobin A1C 12.6(A) 4.0 - 6.0 % QC Media Lot # [id number] Lot# Expiration Date Blood Capillary blood specimen / Unknown 01/14/2025 10:57 AM EDT us Tyesha Rogers MD POINT OF CARE TEST ENTER/EDIT OR DERABLES Final Result * POCT glucose manually resulted (01/14/2025 10:53 AM EDT) Glucose Blood, POC 191 60 - 200 mg/dL [employer] Media Lot # [id number] Lot# Expiration Date Blood Capillary blood specimen / Unknown 01/14/2025 10:53 AM EDT us Tyesha Rogers MD POINT OF CARE TEST ENTER/EDIT OR DERABLES Final Result documented in this encounter Visit Diagnoses Diagnosis Multiple sclerosis ([facility])- Primary Multiple sclerosis Hypertension, unspecified type Ischemic heart disease Other specified forms of chronic ischemic heart disease Coronary artery disease involving [place] coronary artery of [place] heart, unspecified whether angina present Recurrent kidney stones Neurogenic bladder Neurogenic bladder, NOS Cervical dysplasia Dysplasia of cervix, unspecified Type 2 diabetes mellitus with hyperglycemia, with long-term current use of insulin ([facility]) Tobacco use Substance use disorder Opioid use disorder Mood disorder ([facility]) Unspecified episodic mood disorder Severe episode of recurrent major depressive disorder, without psychotic features ([facility]) Posttraumatic stress disorder Dyslipidemia Other and unspecified hyperlipidemia Chronic midline low back pain, unspecified whether sciatica present Encounter for immunization Chronic toe pain, left foot Palpitations Routine screening for STI (sexually transmitted infection) Screening examination for venereal disease documented in this encounter Additional Health Concerns Assessment Noted Time PHQ-9 Depression Total Score: 14 025 1:25 PM EDT documented as of this encounter Care Teams Invoicing Specialist Relationship Specialty Start Date End Date Tyesha Rogers MD [address] [place] [address] PCP - General Family Medicine 04/25/19 documented as of this encounter
--- OUTSIDE RECORDS SUMMARY | 2025-01-14 13:27 | XMS_ITS | Encounter Summary ---
Author Organization [facility] Address [address] [place] [address] Care Team Providers Care Sheriff Name Role Phone Imelda Camarillo DO Primary Care Pro vider Unavailable Casandra Duong MD Primary Care Provider Unavaila wendy Frederick, Pcp Primary Care Provider Pilar Gustafson MD Primary Care Provider Unavail Donna Wadsworth MD Primary Care Provider Tyesha Cheatham Primary Care Provider Martinez e Reason for Visit * Reason Onset Date Comments Provider Call Back 03/19/2015 Encounter Details Date Type Department Care Team Description 03/19/2015 Telephone Adult [address] [address] Imelda Camarillo DO Provider Call Back Social History Tobacco Use Types Packs/Day Years Used Date Smoking Tobacco: Every Day Cigarettes 0.2 Comments:4 cigarettes per da y Alcohol Use Standard Drinks/Week Comments No 0 (1 standard drink = 0.6 oz pur e alcohol) Sex Assigned at Date Recorded Not on file documented as of this encounter Miscellaneous Notes * Telephone Encounter - Jael Gillette M.A. - 03/23/2015 4:24 PM EDT Pt states she thinks she was at [facility] in either December, January or February & wants pcp to review notes. Advised pt I would locate hospital info * Telephone Encounter - Imelda Fisher DO - 03/23/2015 3:39 PM EDT Can we look into this * Telephone Encounter - Laine Gooden - 03/19/2015 10:50 AM EDT Caller requesting call back from provider: Dr Villa Is the caller the patient? yes Reason for call back: Patient asking if paperwork she faxed to [facility] yesterday regarding hospital testing in either January or February was received. Asking for a call back regarding these tests. Caller offered to speak with the nurse for assistance: YES Response: Patient offered to speak with nurse for assistance and patient agreed. Message forwarded to nurse. documented in this encounter Plan of Treatment Not on file documented as of this encounter Visit Diagnoses Not on filedocumented in this encounter Care Teams Sheriff Relationship Specialty Start Date End Date Imelda Camarillo DO PCP - General Internal Medicine 12/26/14 08/30/15 Casandra Duong MD PCP - General Internal Medicine 08/31/15 01/07/16 [facility], Pcp PCP - General Internal Medicine 01/08/16 09/14/16 Pilar Coombs MD PCP - General Internal Medicine 09/15/16 01/07/19 Donna Donis MD PCP - General Internal Medicine 01/08/19 12/01/21 Tyesha Rogers PCP - General Family Practice 12/02/21 documented as of this encounter
--- OUTSIDE RECORDS SUMMARY | 2025-01-14 13:27 | XMS_ITS | Encounter Summary ---
Author Organization [facility] Address [address] [place] [address] Care Team Providers Care Database Programmer Name Role Phone Pilar Coombs MD Primary Care Provider Unavail able Donna Donis MD Primary Care Provider Tyesha Cheathma Primary Care Provider Unavailabl e Encounter Details Date Type Department Care Team Description 02/08/2017 Dietary Services Manager Report Medical Records [address] [place] [address] Soniya Patel PA-C Social History Tobacco Use Types Packs/Day Years Used Date Smoking Tobacco: Every Day Cigarettes 30 Smokeless Tobacco: Never Comments:trying to quit Alcohol Use Standard Drinks/Week Comments Yes 0 (1 standard drink = 0.6 oz pur e alcohol) 3 drinks per mo Sex Assigned at Date Recorded Not on file documented as of this encounter Plan of Treatment Not on file documented as of this encounter Visit Diagnoses Not on filedocumented in this encounter Care Teams Database Programmer Relationship Specialty Start Date End Date Pilar Coombs MD PCP - General Internal Medicine 09/15/16 01/07/19 Donna Donis MD PCP - General Internal Medicine 01/08/19 12/01/21 Tyesha Rogers PCP - General Family Practice 12/02/21 documented as of this encounter
--- OUTSIDE RECORDS SUMMARY | 2025-01-14 13:28 | XMS_ITS | Encounter Summary ---
Author Organization [employer] Address [address] [facility] [address] [place] [address] Care Team Providers Care Supervisor Agency Appointments Name Role Phone Tyesha Rogers MD Primary Care Provider [phone] Reason for Visit * Reason Onset Date Comments Hospital Follow-up 05/29/2024 Encounter Details Date Type Department Care Team ([facility] st Contact Info) Description 05/29/2024 Telephone [facility] MED[facility] [address] [place] [address] Tyesha Rogers MD [address] [place] [address] Hospital Follow-up Social History Tobacco Use Types [...] from pt requesting a HDF appt. Hospital: [facility] Date of admission: 05/28/24 Discharge date: 05/29/24 Diagnosed: urticaria documented in this encounter Plan of Treatment Upcoming Encounters Date Type Department Care Team (Late st Contact Info) Description 03/04/2025 1:30 PM EDT Office Visit [facility] OPTOMETRY [address] [place] [address] Katharine Carbone, OD [address] [place] [address] 04/25/2025 10:15 AM EDT Office Visit [facility] MEDICINE [address] [place] [address] Pieter Alcantar MD [address] [place] [address] documented as of this encounter Visit Diagnoses Not on filedocumented in this encounter Additional Health Concerns Assessment Noted Time PHQ-9 Depression Total Score: 24 024 10:42 AM EDT documented as of this encounter Care Teams Supervisor Agency Appointments Relationship Specialty Start Date End Date Tyesha Rogers MD [address] [place] [address] PCP - General Family Medicine 04/25/19 documented as of this encounter
--- OUTSIDE RECORDS SUMMARY | 2025-01-14 13:28 | XMS_ITS | Encounter Summary ---
Author Organization [facility] Address [address] [facility] [place] [address] Care Team Providers Care Special Education Paraprofessional Name Role Phone Pilar Coombs MD Primary Care Provider Unavail able Donna Donis MD Primary Care Provider Tyesha Cheatham Primary Care Provider Unavailabl e Encounter Details Date Type Department Care Team Description 01/29/2017 Hospital Medical Records [address] [place] [address] Endy Rose PA Social History Tobacco Use Types Packs/Day Years [...] on filedocumented in this encounter Care Teams Special Education Paraprofessional Relationship Specialty Start Date End Date Pilar Coombs MD PCP - General Internal Medicine 09/15/16 01/07/19 Donna Donis MD PCP - General Internal Medicine 01/08/19 12/01/21 Tyesha Rogers PCP - General Family Practice 12/02/21 documented as of this encounter
--- OUTSIDE RECORDS SUMMARY | 2025-01-14 13:28 | XMS_ITS | Encounter Summary ---
Author Organization [employer] Address [address] [facility] [address] [place] [address] Care Team Providers Care Stock Receiver Name Role Phone Tyesha Rogers MD Primary Care Provider Reason for Visit * Reason Comments Med Refill Encounter Details Date Type Department Care Team ([facility] st Contact Info) Description 04/24/2024 Refill [facility]INE [address] [place], [place] [phone] Tyesha Rogers MD [address] [place] [address] Vitamin D deficiency; Hypothyroidism, unspecified type Social [...] requests. This patient is currently living in [place]. She left [facility]. Please seen Dr. Grimes's note in February 2024. Thank you documented in this encounter Plan of Treatment Upcoming Encounters Date Type Department Care Team (Late st Contact Info) Description 03/04/2025 1:30 PM EDT Office Visit [facility] OPTOMETRY [address] [place] [address] Raf, Katharine, OD [address] [place] [address] 04/25/2025 10:15 AM EDT Office Visit [facility] [address] [place] [address] Pieter Alcantar MD [address] [place] [address] documented as of this encounter Visit Diagnoses Diagnosis Vitamin D deficiency Hypothyroidism, unspecified type documented in this encounter Additional Health Concerns Assessment Noted Time PHQ-9 Depression Total Score: 21 024 10:41 AM EDT documented as of this encounter Care Teams Stock Receiver Relationship Specialty Start Date End Date Tyesha Rogers MD [address] [place] [address] PCP - General Family Medicine 04/25/19 documented as of this encounter
--- OUTSIDE RECORDS SUMMARY | 2025-01-14 13:28 | XMS_ITS | Encounter Summary ---
Author Organization [employer] Address [address] [place] [address] [address] [place] [address] Care Team Providers Care Payment Manager Name Role Phone Tyesha Rogers MD Primary Care Provider [phone] Encounter Details Date Type Department Care Team (Late st Contact Info) Description 10/10/2022 Orders Only [facility] MEDICINE [address] [place], [place] [phone] Tyesha Rogers MD [address] [place], [place] [phone] Hypothyroidism, unspecified type (Primary Dx); Elevated TSH; [...] 03/04/2025 1:30 PM EDT Office Visit [facility] OPTOMETRY [address] [place] [address] Katharine Carbone, OD [address] [place] [address] 04/25/2025 10:15 AM EDT Office Visit [facility] MEDICINE [address] [place] [address] Pieter Alcantar MD [address] [place], [place] [phone] Scheduled Orders Name Type Priority Associated Diagnoses [...] documented as of this encounter Care Teams Payment Manager Relationship Specialty Start Date End Date Tyesha Rogers MD [address] [place] [address] PCP - General Family Medicine 04/25/19 documented as of this encounter
--- OUTSIDE RECORDS SUMMARY | 2025-01-14 13:28 | XMS_ITS | Encounter Summary ---
Author Organization [employer] Address [address] [facility] [address] [place] [address] Care Team Providers Care Permaculture Designer Name Role Phone Tyesha Rogers MD Primary Care Provider [phone] Encounter Details Date Type Department Care Team ([facility] st Contact Info) Description 11/01/2023 Telephone [facility] MEDICINE [address] [place], [place] [phone] Tyesha Rogers MD [address] [place], [place] [phone] Social History Tobacco Use Types Packs/Day Years [...] Description 03/04/2025 1:30 PM EDT Office Visit [facility] OPTOMETRY [address] [place] [address] Raf, Katharine, OD [address] [place] [address] 04/25/2025 10:15 AM EDT Office Visit [facility] MEDICINE [address] [place] [address] Pieter Alcantar MD [address] [place] [address] documented as of this encounter Visit Diagnoses Not on filedocumented in this encounter Additional Health Concerns Assessment Noted Time PHQ-9 Depression Total Score: 21 023 9:42 AM EDT documented as of this encounter Care Teams Permaculture Designer Relationship Specialty Start Date End Date Tyesha Rogesr MD [address] [place] [address] PCP - General Family Medicine 04/25/19 documented as of this encounter
--- OUTSIDE RECORDS SUMMARY | 2025-01-14 13:28 | XMS_ITS | Encounter Summary ---
Author Organization [facility] Address [address] [place] [address] Care Team Providers Care Insurance Customer Service Specialist Name Role Phone Casandra Duong MD Primary Care Provider Barrie Frederick, Pcp Primary Care Provider UnavailPilar Reed MD Primary Care Provider Unavail Donna Wadsworth MD Primary Care Provider Tyesha Cheatham Primary Care Provider Martinez hunter Encounter Details Date Type Department Care Team Description 10/21/2015 Hospital Medical Records [address] [place] [address] Varinder Hernandes PA-C [address] [place] [address] [address] [place] [address] Social History Tobacco Use Types Packs/Day Years [...] on filedocumented in this encounter Care Teams Insurance Customer Service Specialist Relationship Specialty Start Date End Date Casandra Duong MD PCP - General Internal Medicine 08/31/15 01/07/16 Yoly, Pcp PCP - General Internal Medicine 01/08/16 09/14/16 Pilar Coombs MD PCP - General Internal Medicine 09/15/16 01/07/19 Donna Donis MD PCP - General Internal Medicine 01/08/19 12/01/21 Tyesha Rogers PCP - General Family Practice 12/02/21 documented as of this encounter
--- OUTSIDE RECORDS SUMMARY | 2025-01-14 13:28 | XMS_ITS | Encounter Summary ---
Author Organization [employer] Address [address] [facility] 7 [place] [address] Care Team Providers Care Professional Employer Consultant Name Role Phone Tyesha Rogers MD Primary Care Provider [phone] Reason for Visit * Reason Onset Date Comments Durable Medical Equipment 09/06/2023 Encounter Details Date Type Department Care Team ([facility] st Contact Info) Description 09/06/2023 Telephone [facility] MEDICINE [address] [place] [address] Tyesha Rogers MD [address] [place] [address] Durable Medical Equipment Social History Tobacco Use [...] wheels or seat. Please contact Pt @ [phone] documented in this encounter Plan of Treatment Upcoming Encounters Date Type Department Care Team (Late st Contact Info) Description 03/04/2025 1:30 PM EDT Office Visit [facility] OPTOMETRY [address] [place] [address] Katharine Carbone, OD [address] [place] [address] 04/25/2025 10:15 AM EDT Office Visit [facility] MEDICINE [address] [place] [address] Pieter Alcantar MD [address] [place] [address] documented as of this encounter Visit Diagnoses Not on filedocumented in this encounter Additional Health Concerns Assessment Noted Time PHQ-9 Depression Total Score: 21 023 9:42 AM EDT documented as of this encounter Care Teams Professional Employer Consultant Relationship Specialty Start Date End Date Tyesha Rogers MD [address] [place] [address] PCP - General Family Medicine 04/25/19 documented as of this encounter
--- OUTSIDE RECORDS SUMMARY | 2025-01-14 13:28 | XMS_ITS | Encounter Summary ---
Author Organization [employer] Address [address] [place] [address] 7 [place] [address] Care Team Providers Care Instructor Product Inspection Name Role Phone Tyesha Rogers MD Primary Care Provider Reason for Visit * Reason Onset Date Comments New Med Request 05/03/2024 Medication Question 05/03/2024 Encounter Details Date Type Department Care Team ([facility] st Contact Info) Description 05/03/2024 Telephone [facility] MEDICINE [address] [place] [address] Tyesha Rogers MD [address] [place] [address] New Med Request; Medication Question Social History [...] pt is no longer a patient at [facility] due to move and because the medications were prescribed by her psychiatrist,she should reach out to psychiatrist for these medications. Patient stated she is moving back to [place], date unknown, customs entry writer again advised pt to contact psychiatrist as they are the prescriber and informed pt that Dr Rogers would be informed of move back. Patient verbalized understanding. --Dr Rogers Patient left our health center and moved to [place]. Her anxiety medications have been prescribed by her psychiatrist. * Telephone Encounter - Andrew Garcia - 05/03/2024 12:17 PM EDT Tc from patient calling to request a medication for anxiety will be flying from [facility] on 05/14 and would like it to be sent to [facility] Address: [address] [place] [address] documented in this encounter Plan of Treatment Upcoming Encounters Date Type Department Care Team (Late st Contact Info) Description 03/04/2025 1:30 PM EDT Office Visit [facility] OPTOMETRY [address] [place] [address] Raf, Katharine, OD [address] [place] [address] 04/25/2025 10:15 AM EDT Office Visit [facility] MEDICINE [address] [place] [address] Pieter Alcantar MD [address] [place] [address] documented as of this encounter Visit Diagnoses Not on filedocumented in this encounter Additional Health Concerns Assessment Noted Time PHQ-9 Depression Total Score: 21 024 10:41 AM EDT documented as of this encounter Care Teams Instructor Product Inspection Relationship Specialty Start Date End Date Tyesha Rogers MD [address] [place], [place] [phone] PCP - General Family Medicine 04/25/19 documented as of this encounter
--- OUTSIDE RECORDS SUMMARY | 2025-01-14 13:28 | XMS_ITS | Encounter Summary ---
Author Organization [employer] Address [address] [place] [address] [address] [place] [address] Care Team Providers Care Tomato Paste Maker Name Role Phone Tyesha Rogers MD Primary Care Provider [phone] Encounter Details Date Type Department Care Team (Late Contact Info) Description 08/08/[address] [facility] MEDICINE [address] [place] [address] ProviderJhony MD Social History Tobacco Use Types [...] 03/04/2025 1:30 PM EDT Office [address] [facility] OPTOMETRY [address] [place] [address] Katharine Carbone, OD [address] [place] [address] 04/25/2025 10:15 AM EDT Office Visit [facility] MEDICINE [address] [place] [address] Pieter Alcantar MD [address] [place] [address] documented as of this encounter Visit Diagnoses Not on filedocumented in this encounter Care Teams Tomato Paste Maker Relationship Specialty Start Date End Date Tyesha Rogers MD [address] [place] [address] PCP - General Family Medicine 04/25/19 documented as of this encounter
--- OUTSIDE RECORDS SUMMARY | 2025-01-14 13:28 | XMS_ITS | Encounter Summary ---
Author Organization [facility] Address [address] [place] [address] Care Team Providers Care Interior Decorator Name Role Phone Pilar Coombs MD Primary Care Provider Unavail able Donna Donis MD Primary Care Provider Tyesha Cheatham Primary Care Provider Unavailabl e Encounter Details Date Type Department Care Team Description 01/30/2017 Hospital Medical Records [address] [place] [address] Alexander Luna MD Social History Tobacco Use Types Packs/Day [...] on filedocumented in this encounter Care Teams Interior Decorator Relationship Specialty Start Date End Date Pilar Coombs MD PCP - General Internal Medicine 09/15/16 01/07/19 Donna Donis MD PCP - General Internal Medicine 01/08/19 12/01/21 Tyesha Rogers PCP - General Family Practice 12/02/21 documented as of this encounter
--- OUTSIDE RECORDS SUMMARY | 2025-01-14 13:28 | XMS_ITS | Encounter Summary ---
Author Organization [facility] Address [address] [place] [address] Care Team Providers Care Blood Bank Laboratory Technician Name Role Phone Casandra Duong MD Primary Care Provider Barrie Frederick Pcp Primary Care Provider Pilar Gustafson MD Primary Care Provider Unavail Donna Wadsworth MD Primary Care Provider Tyesha Cheatham Primary Care Provider Martinez hunter Encounter Details Date Type Department Care Team Description 10/28/2015 [facility] Medical Records [address] [place] [address] [facility] Social History Tobacco Use Types Packs/Day Years [...] on filedocumented in this encounter Care Teams Blood Bank Laboratory Technician Relationship Specialty Start Date End Date Casandra Duong MD PCP - General Internal Medicine 08/31/15 01/07/16 Yoly Pcp PCP - General Internal Medicine 01/08/16 09/14/16 Pilar Coombs MD PCP - General Internal Medicine 09/15/16 01/07/19 Donna Donis MD PCP - General Internal Medicine 01/08/19 12/01/21 Tyesha Rogers PCP - General Family Practice 12/02/21 documented as of this encounter
--- OUTSIDE RECORDS SUMMARY | 2025-01-14 13:28 | XMS_ITS | Encounter Summary ---
Author Organization [employer] Address [address] [facility] 7 [place] [address] Care Team Providers Care Gastroenterology Nurse Name Role Phone Tyesha Rogers MD Primary Care Provider [phone] Reason for Visit * Reason Onset Date Comments Nurse Triage 08/30/2023 Encounter Details Date Type Department Care Team ([facility] st Contact Info) Description 08/30/2023 Telephone [facility] MEDICINE [address] [place] [address] Tyesha Rogers MD [address] [place] [address] Nurse Triage Social History Tobacco Use Types [...] Call to Emily Tucker, reports 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 [facility] reported CP and elevated BS. 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 Sent to team for ER status check [...] and stated is on her way to [facility]. * Telephone Encounter - Blanca Rashid - [...] [facility] OPTOMETRY [address] [place] [address] Katharine Carbone, OD [address] [place] [address] 04/25/2025 10:15 AM EDT Office Visit [facility] MEDICINE [address] [place] [address] Pieter Alcantar MD [address] [place] [address] documented as of this encounter Visit Diagnoses Not on filedocumented in this encounter Additional Health Concerns Assessment Noted Time PHQ-9 Depression Total Score: 21 023 9:42 AM EDT documented as of this encounter Care Teams Gastroenterology Nurse Relationship Specialty Start Date End Date Tyesha Rogers MD [address] [place] [address] PCP - General Family Medicine 04/25/19 documented as of this encounter
--- OUTSIDE RECORDS SUMMARY | 2025-01-14 13:28 | XMS_ITS | Encounter Summary ---
Author Organization [employer] Address [address] [place] [address] Care Team Providers Care Financial Services Consultant Name Role Phone Tyesha Rogers MD Primary Care Provider [phone] Reason for Referral * Consultation (Routine) - Closed Specialty Diagnoses / Procedures Referred By Contangel t Referred To Contact Pharmacy Diagnoses SBO (small bowel obstruction) (CMS/HCC) Tati Neri PharmD [address] [place] [address] Phone: tel: fax: Referral ID Status Reason Start Date Expiration Date V isits Requested Visits Authorized [id number] Closed Continuity of Care 12/07/2023 12/06/2024 1 1 Encounter Details Date Type Department Care Team (Late st Contact Info) Description 12/07/2023 Orders Only [facility] MEDICINE [address] [place] [address] Tati Neri PharmD [address] [place], [place] [phone] SBO (small bowel obstruction) (CMS/HCC) (Primary Dx) [...] Description 03/04/2025 1:30 PM EDT Office Visit [facility] OPTOMETRY [address] [place] [address] Raf, Katharine, OD [address] [place] [address] 04/25/2025 10:15 AM EDT Office Visit [facility] MEDICINE [address] [place] [address] Peiter Alcantar MD [address] [place] [address] Scheduled Referrals Name Type Priority Associated Diagnoses Orde r Schedule Referral to Pharmacy MTM Outpatient Referral Routine SBO (small bowel obstruction) (CMS/HCC) Ordered: 12/07/2023 documented as of this encounter Visit Diagnoses Diagnosis SBO (small bowel obstruction) (CMS/HCC)- Primary Unspecified intestinal obstruction documented in this encounter Additional Health Concerns Assessment Noted Time PHQ-9 Depression Total Score: 21 023 9:42 AM EDT documented as of this encounter Care Teams Financial Services Consultant Relationship Specialty Start Date End Date Tyesha Rogers MD [address] [place] [address] PCP - General Family Medicine 04/25/19 documented as of this encounter
--- OUTSIDE RECORDS SUMMARY | 2025-01-14 13:28 | XMS_ITS | Encounter Summary ---
Author Organization [facility] Address [address] [place] [address] Care Team Providers Care Professor Of Industrial Technology Name Role Phone Pilar Coombs MD Primary Care Provider Unavail able Donna Donis MD Primary Care Provider Tyesha Cheatham Primary Care Provider Unavailabl e Encounter Details Date Type Department Care Team Description 11/28/2016 Hospital Medical Records [address] [place] [address] Philippe Miranda, DO Social History Tobacco Use Types Packs/Day Years [...] on filedocumented in this encounter Care Teams Professor Of Industrial Technology Relationship Specialty Start Date End Date Pilar Coombs MD PCP - General Internal Medicine 09/15/16 01/07/19 Donna Donis MD PCP - General Internal Medicine 01/08/19 12/01/21 Tyesha Rogers PCP - General Family Practice 12/02/21 documented as of this encounter
--- OUTSIDE RECORDS SUMMARY | 2025-01-14 13:28 | XMS_ITS | Encounter Summary ---
Author Organization [facility] Address [address] [facility] [place] [address] Care Team Providers Care Medical Management Trainer Name Role Phone Pilar Coombs MD Primary Care Provider Unavail able Donna Donis MD Primary Care Provider Tyesha Cheatham Primary Care Provider Unavailabl e Encounter Details Date Type Department Care Team Description 01/31/2017 Hospital Medical Records [address] [place] [address] Endy Rose PA Social History Tobacco Use [...] on filedocumented in this encounter Care Teams Medical Management Trainer Relationship Specialty Start Date End Date Pilar Coombs MD PCP - General Internal Medicine 09/15/16 01/07/19 Donna Donis MD PCP - General Internal Medicine 01/08/19 12/01/21 Tyesha Rogers PCP - General Family Practice 12/02/21 documented as of this encounter
--- OUTSIDE RECORDS SUMMARY | 2025-01-14 13:28 | XMS_ITS | Encounter Summary ---
Author Organization [facility] Address [address] [facility] [place] [address] Care Team Providers Care Food Order Delivery Runner Name Role Phone Pilar Coombs MD Primary Care Provider Unavail able Donna Donis MD Primary Care Provider Tyesha Cheatham Primary Care Provider Unavailabl e Encounter Details Date Type Department Care Team Description 11/25/2016 Hospital Medical Records [address] [place] [address] Anthony Breen Social History Tobacco Use Types Packs/Day Years [...] on filedocumented in this encounter Care Teams Food Order Delivery Runner Relationship Specialty Start Date End Date Pilar Coombs MD PCP - General Internal Medicine 09/15/16 01/07/19 Donna Donis MD PCP - General Internal Medicine 01/08/19 12/01/21 Tyesha Rogers PCP - General Family Practice 12/02/21 documented as of this encounter
--- OUTSIDE RECORDS SUMMARY | 2025-01-14 13:28 | XMS_ITS | Encounter Summary ---
Author Organization [facility] Address [address] [place] [address] Care Team Providers Care Pie Dough Roller Name Role Phone Pilar Coombs MD Primary Care Provider Unavail able Donna Donis MD Primary Care Provider Tyesha Cheatham Primary Care Provider Unavailabl e Encounter Details Date Type Department Care Team Description 11/28/2016 Hospital Medical Records [address] [place] [address] Alexander Luna MD Social History Tobacco Use [...] on filedocumented in this encounter Care Teams Pie Dough Roller Relationship Specialty Start Date End Date Pilar Coombs MD PCP - General Internal Medicine 09/15/16 01/07/19 Donna Donis MD PCP - General Internal Medicine 01/08/19 12/01/21 Tyesha Rogers PCP - General Family Practice 12/02/21 documented as of this encounter
--- OUTSIDE RECORDS SUMMARY | 2025-01-14 13:28 | XMS_ITS | Encounter Summary ---
Author Organization [facility] Address [address] [place] [address] Care Team Providers Care Stogy Maker Name Role Phone Imelda Camarillo DO Primary Care Pro vider Unavailable Casandra Duong MD Primary Care Provider Unavaila wendy Frederick, Pcp Primary Care Provider UnavailPilar Reed MD Primary Care Provider Unavail Donna Wadsworth MD Primary Care Provider Tyesha Cheatham Primary Care Provider Unavailabl e Reason for Visit * Reason Onset Date Comments Prior Authorization 08/21/2015 Encounter Details Date Type Department Care Team Description 08/21/2015 Telephone Adult [address] [address] Imelda Camarillo DO Prior Authorization Social History Tobacco Use Types Packs/Day Years Used Date Smoking Tobacco: Some Days Cigarettes Comments:trying to quit Alcohol Use Standard Drinks/Week Comments Yes 0 (1 standard drink = 0.6 oz pur e alcohol) 3 drinks per mo Sex Assigned at Date Recorded Not on file documented as of this encounter Miscellaneous Notes * Telephone Encounter - Imelda Fisher DO - 08/26/2015 2:57 PM EST Can we see whats on formulary please * Telephone Encounter - Karolina Becerril M.A. - 08/21/2015 3:41 PM EST amitiza not covered by insurance.. Must have tried two medications on formulary and failed. . Covered formulary meds: needs to use lactulose first. Pending for your signature Thank you Please reply back to p [phone] prior authorization pool Zabrina Becerril C.M.A. [facility] Prior Authorizations Ext: [phone] * Telephone Encounter - Karolina Becerril M.A. - 08/21/2015 1:54 PM EST The insurance number is . [facility] closed for a staff meeting * Telephone Encounter - Brooklyn Camacho - 08/21/2015 10:09 AM EST Pre Authorization for Medication Name of Medication: lubiprostone (AMITIZA) 24 MCG capsule Dose of Medication: 24 MCG Capsule How does patient take this med? Take 1 Cap by mouth 2 times daily (with meals). Patient???s current medical insurance:: Pay[place] / Plan: MEDICAID [place]CC / Product Type: MEDICAID [id number] Notes/Comments from faxed P.A.: request=reason for denial: None listed [employer] phone number listed on fax: [phone] If phone number not listed on fax go to appointment screen; then click registration; choose insurance claim address; phone number to right on coverage address. What is patients CARDHOLDER ID#: [id number] Pharmacy Information: Pharmacy; address; phone and fax number that patient uses? [facility], [address] [place] [address] documented in this encounter Plan of Treatment Not on file documented as of this encounter Visit Diagnoses Not on filedocumented in this encounter Care Teams Stogy Maker Relationship Specialty Start Date End Date Imelda Camarillo DO PCP - General Internal Medicine 12/26/14 08/30/15 Casandra Duong MD PCP - General Internal Medicine 08/31/15 01/07/16 [facility] PCP - General Internal Medicine 01/08/16 09/14/16 Pilar Coombs MD PCP - General Internal Medicine 09/15/16 01/07/19 Donna Donis MD PCP - General Internal Medicine 01/08/19 12/01/21 Tyesha Rogers PCP - General Family Practice 12/02/21 documented as of this encounter
--- OUTSIDE RECORDS SUMMARY | 2025-01-14 13:28 | XMS_ITS | Encounter Summary ---
Author Organization [employer] Address [address] [facility] 7t [place] [address] Care Team Providers Care Transportation Planning Technician Name Role Phone Tyesha Rogers MD Primary Care Provider [phone] Reason for Visit * Reason Comments Med Refill Encounter Details Date Type Department Care Team ([facility] st Contact Info) Description 11/23/2024 Refill [facility] MEDICINE [address] [place], [place] [phone] Tyesha Rogers MD [address] [place] [address] Other chronic pain Social History Tobacco Use [...] 1:30 PM EDT Office Visit [facility] OPTOMETRY [address] [place] [address] RafKatharine fu, OD [address] [place] [address] 04/25/2025 10:15 AM EDT Office Visit [facility] MEDICINE [address] [place] [address] Pieter Alcantar MD [address] [place] [address] documented as of this encounter Visit Diagnoses Diagnosis Other chronic pain documented in this encounter Additional Health Concerns Assessment Noted Time PHQ-9 Depression Total Score: 15 025 11:52 AM EST documented as of this encounter Care Teams Transportation Planning Technician Relationship Specialty Start Date End Date Tyesha Rogers MD [address] [place] [address] PCP - General Family Medicine 04/25/19 documented as of this encounter
--- OUTSIDE RECORDS SUMMARY | 2025-01-14 13:28 | XMS_ITS | Encounter Summary ---
Author Organization [facility] Address [address] [place] [address] Care Team Providers Care Rotary Shear Cutter Name Role Phone Casandra Duong MD Primary Care Provider Barrie Frederick, Pcp Primary Care Provider UnavailPilar Reed MD Primary Care Provider Unavail able Donna Donis MD Primary Care Provider Tyesha Cheatham Primary Care Provider Martinez hunter Encounter Details Date Type Department Care Team Description 11/19/2015 Earring Maker Report Medical Records [address] [place] [address] Jeremiah Warner MD Social History Tobacco Use Types Packs/Day Years Used Date Smoking Tobacco: Every Day Cigarettes Smokeless Tobacco: Never Comments:trying to quit Alcohol Use Standard Drinks/Week Comments Yes 0 (1 standard drink = 0.6 oz pur e alcohol) 3 drinks per mo Sex Assigned at Date Recorded Not on file documented as of this encounter Plan of Treatment Not on file documented as of this encounter Visit Diagnoses Not on filedocumented in this encounter Care Teams Rotary Shear Cutter Relationship Specialty Start Date End Date Casandra Duong MD PCP - General Internal Medicine 08/31/15 01/07/16 Yoly, Lillian PCP - General Internal Medicine 01/08/16 09/14/16 Pilar Coombs MD PCP - General Internal Medicine 09/15/16 01/07/19 Donna Donis MD PCP - General Internal Medicine 01/08/19 12/01/21 Tyesha Rogers PCP - General Family Practice 12/02/21 documented as of this encounter
--- OUTSIDE RECORDS SUMMARY | 2025-01-14 13:28 | XMS_ITS | Encounter Summary ---
Author Organization [facility] Address [address] [place] [address] Care Team Providers Care Family Practice Physician Name Role Phone Casandra Duong MD Primary Care Provider Barrie Frederick, Pcp Primary Care Provider Pilar Gustafson MD Primary Care Provider Unavail Donna Wadsworth MD Primary Care Provider Tyesha Cheatham Primary Care Provider Martinez hunter Encounter Details Date Type Department Care Team Description 11/16/2015 Home Health Certification Medical Records [address] [place] [address] Rosio Sebastian [address] [place] [address] Social History Tobacco Use Types Packs/Day Years [...] on filedocumented in this encounter Care Teams Family Practice Physician Relationship Specialty Start Date End Date Casandra [...]
--- OUTSIDE RECORDS SUMMARY | 2025-01-14 13:28 | XMS_ITS | Encounter Summary ---
Author Organization [facility] Address [address] [place] [address] Care Team Providers Care Milk Wagon Driver Name Role Phone Casandra Duong MD Primary Care Provider Barrie Frederick, Pcp Primary Care Provider UnavailPilar Reed MD Primary Care Provider Unavail Donna Wadsworth MD Primary Care Provider Tyesha Cheatham Primary Care Provider Martinez hunter Encounter Details Date Type Department Care Team Description 11/10/2015 Hospital Medical Records [address] [place] [address] Varinder Hernandes PA-C [address] [place] [address] [address] [place] [address] Social History Tobacco Use Types Packs/Day Years [...] on filedocumented in this encounter Care Teams Milk Wagon Driver Relationship Specialty Start Date End Date Casandra [...]
--- OUTSIDE RECORDS SUMMARY | 2025-01-14 13:28 | XMS_ITS | Encounter Summary ---
Author Organization [employer] Address [address] [place] [address] [address] [address] Care Team Providers Care Business Transformation Analyst Name Role Phone Tyesha Rogers MD Primary Care Provider [phone] Reason for Referral * Consultation (Routine) - Closed Specialty Diagnoses / Procedures Referred By Zabrina t Referred To Contact Diagnoses Type 2 diabetes mellitus with hyperglycemia, with long-term current use of insulin (CMS/HCC) Hypertension, unspecified type Multiple sclerosis (CMS/HCC) Tyesha Rogers MD [address] [place] [address] Phone: tel: fax: [address] [address] Phone: tel: fax: Referral ID Status Reason Start Date Expiration Date V isits Requested Visits Authorized [id number] Closed Specialty Services Required 11/15/2024 11/15/2025 1 1 Encounter Details Date Type Department Care Team (Late st Contact Info) Description 11/15/2024 Orders Only [facility] MEDICINE [address] [place] [address] Tyesha Rogers MD [address] [place] [phone] Type 2 diabetes mellitus with hyperglycemia, with long-term current use of insulin (CMS/HCC) (Primary Dx); Hypertension, unspecified type; Multiple sclerosis (CMS/HCC); Type 2 diabetes mellitus with hyperglycemia (CMS/HCC); Type 2 diabetes mellitus with hyperglycemia, with long-term current use of insulin ([facility]) Social History Tobacco Use Types Packs/Day Years [...] Upcoming Encounters Date Type Department Care Team ([facility] st Contact Info) Description 03/04/2025 1:30 PM EDT Office Visit [facility] OPTOMETRY [address] [place] [address], [place] [address] Katharine Carbone, OD [address] [place] [address] 04/25/2025 10:15 AM EDT Office Visit [facility] MEDICINE [address] [place] [address] Pieter Alcantar MD [address] [place] [address] Scheduled Referrals Name Type Priority Associated Diagnoses [...] documented as of this encounter Care Teams Business Transformation Analyst Relationship Specialty Start Date End Date Tyesha Rogers MD [address] [place] [address] PCP - General Family Medicine 04/25/19 documented as of this encounter
--- OUTSIDE RECORDS SUMMARY | 2025-01-14 13:28 | XMS_ITS | Encounter Summary ---
Author Organization [facility] Address [address] [place] [address] Care Team Providers Care Inshore Undersea Warfare Officer Name Role Phone Pilar Coombs MD Primary Care Provider Unavail able Donna Donis MD Primary Care Provider Tyesha Cheatham Primary Care Provider Unavailabl e Encounter Details Date Type Department Care Team Description 10/03/2016 Hospital Medical Records [address] [place] [address] Regine Anderson NP [facility] [address] [place] [address] Social History Tobacco Use Types Packs/Day Years [...] on filedocumented in this encounter Care Teams Inshore Undersea Warfare Officer Relationship Specialty Start Date End Date Pilar Coombs MD PCP - General Internal Medicine 09/15/16 01/07/19 Donna Donis MD PCP - General Internal Medicine 01/08/19 12/01/21 Tyesha Rogers PCP - General Family Practice 12/02/21 documented as of this encounter
--- OUTSIDE RECORDS SUMMARY | 2025-01-14 13:28 | XMS_ITS | Clinical Summary ---
Author Organization [facility] Address [address] [place] [address] Care Team Providers Care Store Consultant Name Role Phone Pcp, No Primary [...] Family Unable to Define Medium 05/13/2021 Medications traZODone (DESYREL) 100 MG tablet TAKE ONE TABLET BY MOUTH DAILY AT BEDTIME NEEDED 1 Active topiramate (TOPAMAX) 100 MG tablet Take 100 mg by mouth nightly. 1 Active prazosin (MINIPRESS) 1 MG capsule TAKE ONE CAPSULE BY MOUTH two (2) times a day 1 Active Multiple Vitamin (One-Daily Multi-Vitamin) Tab TAKE ONE TABLET BY MOUTH EVERY DAY. TAKE WITH FOOD 1 Active metFORMIN (GLUCOPHAGE) 1000 MG tablet TAKE ONE TABLET BY MOUTH 2 (two) times a day WITH morning AND EVENING MEALS 1 Active losartan (COZAAR) 50 MG tablet Take 50 mg by mouth daily. 1 Active losartan (COZAAR) 25 MG tablet TAKE ONE TABLET BY MOUTH EVERY DAY (TAKE WITH 50MG TABLET FOR total OF 75 MG DAILY 1 Active LORazepam (ATIVAN) 0.5 MG tablet Take 1 tablet by mouth once a day as needed for severe anxiety 1 Active Lantus SoloStar 100 UNIT/ML pen injection INJECT 20 UNITS UNDER THE SKIN EVERY MORNING 1 Active Flovent HFA 110 MCG/ACT inhaler inhale 1 puff by inhalation route 2 times every day with spacer 1 Active famotidine (PEPCID) 40 MG tablet Take 40 mg by mouth daily. 1 Active doxepin (SINEquan) 25 MG capsule TAKE ONE CAPSULE BY MOUTH ONCE A DAY AT BEDTIME 1 Active docusate sodium (COLACE) 100 MG capsule TAKE ONE CAPSULE BY MOUTH 2 (two) times a day 1 Active Jesis-Dryl 25 MG tablet Take 25 mg by mouth 3 times daily (every 8 hours) as needed. 1 Active D3-1000 25 MCG (1000 UT) capsule Take 1,000 Units by mouth daily. 1 Active Suboxone 2-0.5 MG per SL film DISSOLVE 1 FILM UNDER THE TONGUE EVERY DAY 1 Active Suboxone 8-2 MG per SL film DISSOLVE 1 FILM UNDER THE TONGUE EVERY DAY 1 Active Eliquis 5 MG tablet TAKE ONE TABLET BY MOUTH 2 (two) times a day 1 Active atorvastatin (LIPITOR) 40 MG tablet Take 40 mg by mouth daily. 1 Active ProAir HFA 108 (90 Base) MCG/ACT inhaler inhale 2 puff by inhalation route every 4 - 6 hours as needed 1 Active Active Problems Problem Noted Date Diagnosed [...] = 0.6 oz pur e alcohol) occasional Comments No Sex and Gender Information Value Date Recorded Sex Assigned at Not on file Legal Sex Female 3:49 PM EDT Gender Identity Not on file Sexual Orientation [...] (1 of 3 - 19+ 3-dose series) 12/10 Pap Smear (Ages 21-65) 1993 Mammogram 2012 Colonoscopy 2017 Pneumococcal Vaccines 50+ (1 of 1 - PCV) 2022 Zoster (Shingles) Vaccine (1 of 2) 2022 COVID-19 Vaccine (1 - 2023- season) 2024 Influenza Vaccine 04/11/[address] [address] Advance Directives * Full Code (Latest Code Status on File) Date Activated Date Inactivated Comments 05/24/2021 10:25 PM Care Teams Store Consultant Relationship Specialty Start Date End Date Pcp, No PCP - General General Medicine 05/13/21
--- OUTSIDE RECORDS SUMMARY | 2025-01-14 13:28 | XMS_ITS | Encounter Summary ---
Author Organization [facility] Address [address] [place] [address] Care Team Providers Care Organic Preparation Analyst Name Role Phone Pilar Coombs MD Primary Care Provider Unavail able Donna Donis MD Primary Care Provider Tyesha Cheatham Primary Care Provider Unavailabl e Encounter Details Date Type Department Care Team Description 01/29/2017 Hospital Medical Records [address] [place] [address] Anthony Breen Social History Tobacco Use Types [...] on filedocumented in this encounter Care Teams Organic Preparation Analyst Relationship Specialty Start Date End Date Pilar Coombs MD PCP - General Internal Medicine 09/15/16 01/07/19 Donna Donis MD PCP - General Internal Medicine 01/08/19 12/01/21 Tyesha Rogers PCP - General Family Practice 12/02/21 documented as of this encounter
--- OUTSIDE RECORDS SUMMARY | 2025-01-14 13:28 | XMS_ITS | Encounter Summary ---
Author Organization [email or web address] Address [address] [facility] 7t [place] [address] Care Team Providers Care Community Health Specialist Name Role Phone Tyesha Rogers MD Primary Care Provider [phone] Encounter Details Date Type Department Care Team (Late st Contact Info) Description 05/06/2024 Orders Only [facility] MEDICINE [address] [place], [place] [phone] Tyesha Rogers MD [address] [place] [address] Social History Tobacco Use Types Packs/Day Years [...] 1:30 PM EDT Office Visit [facility] OPTOMETRY [address] [place] [address] Raf, Katharine, OD [address] [place] [address] 04/25/2025 10:15 AM EDT Office Visit [facility] MEDICINE [address] [place] [address] Pieter Alcantar MD [address] [place] [address] documented as of this encounter Visit Diagnoses Not on filedocumented in this encounter Additional Health Concerns Assessment Noted Time PHQ-9 Depression Total Score: 21 024 10:41 AM EDT documented as of this encounter Care Teams Community Health Specialist Relationship Specialty Start Date End Date Tyesha Rogers MD [address] [place] [address] PCP - General Family Medicine 04/25/19 documented as of this encounter
--- OUTSIDE RECORDS SUMMARY | 2025-01-14 13:28 | XMS_ITS | Encounter Summary ---
Author Organization [facility] Address [address] [place] [address] Care Team Providers Care Steel Erecting Pusher Name Role Phone Pcp, No Primary Care Provider Unavailabl e Encounter Details Date Type Department Care Team (Late st Contact Info) Description 06/02/2021 Scanned Document [facility] PRIMARY CARE SCAN Clari Quesada, DO [address] [facility] [address] [place] [address] Social History Tobacco Use Types Packs/Day Years [...] on filedocumented in this encounter Care Teams Steel Erecting Pusher Relationship Specialty Start Date End Date Pcp, No PCP - General General Medicine 05/13/21 documented as of this encounter
--- OUTSIDE RECORDS SUMMARY | 2025-01-14 13:28 | XMS_ITS | Encounter Summary ---
Author Organization [employer] Address [address] [facility] 7 [place] [address] Care Team Providers Care First Aid Officer Name Role Phone Tyesha Rogers MD Primary Care Provider [phone] Reason for Visit * Reason Onset Date Comments Nurse Triage 11/01/2023 Encounter Details Date Type Department Care Team ([facility] st Contact Info) Description 11/01/2023 Telephone [facility] MEDICINE [address] [place] [address] Tyesha Rogers MD [address] [place] [address] Nurse Triage Social History Tobacco Use Types [...] disposition at this time and will request [facility] for medications at time of HDF [...] Visit [facility] OPTOMETRY [address] [place] [address] Katharine Carbone, OD [address] [place] [address] 04/25/2025 10:15 AM EDT Office Visit [facility] MEDICINE [address] [place] [address] Pieter Alcantar MD [address] [place] [address] documented as of this encounter Visit Diagnoses Not on filedocumented in this encounter Additional Health Concerns Assessment Noted Time PHQ-9 Depression Total Score: 21 023 9:42 AM EDT documented as of this encounter Care Teams First Aid Officer Relationship Specialty Start Date End Date Tyesha Rogers MD [address] [place] [address] PCP - General Family Medicine 04/25/19 documented as of this encounter
--- OUTSIDE RECORDS SUMMARY | 2025-01-14 13:28 | XMS_ITS | Encounter Summary ---
Author Organization [employer] Address [address] [place] [address] 7 [place] [address] Care Team Providers Care Systems Software Designer Name Role Phone Tyesha Rogers MD Primary Care Provider [phone] Reason for Visit * Reason Onset Date Comments Order(s) 09/06/2023 Encounter Details Date Type Department Care Team ([facility] st Contact Info) Description 09/06/2023 Telephone [facility] MEDICINE [address] [place] [address] Tyesha Rogers MD [address] [place] [address] Order(s) Social History Tobacco Use Types Packs/Day [...] Miscellaneous Notes * Telephone Encounter - Salvador Covarrubias - 09/07/2023 9:17 AM EST Please disregard previous message, Circulation Clerk faxed orders. * Telephone Encounter - Silvino Gilliland - 09/06/2023 2:15 PM EST Tc clement Pike working with [facility] requesting order for diagnostic mammogram and ultrasound bi lateral 09/08/23 at 1:00 pm. If any questions please contact Glendy at [phone] documented in this encounter Plan of Treatment Upcoming Encounters Date Type Department Care Team (Late st Contact Info) Description 03/04/2025 1:30 PM EDT Office Visit [facility] OPTOMETRY [address] [place] [address] Katharine Carbone, OD [address] [place] [address] 04/25/2025 10:15 AM EDT Office Visit [facility] MEDICINE [address] [place] [address] Pieter Alcantar MD [address] [place] [address] documented as of this encounter Visit Diagnoses Not on filedocumented in this encounter Additional Health Concerns Assessment Noted Time PHQ-9 Depression Total Score: 21 023 9:42 AM EDT documented as of this encounter Care Teams Systems Software Designer Relationship Specialty Start Date End Date Tyesha Rogers MD [address] [place] [address] PCP - General Family Medicine 04/25/19 documented as of this encounter
--- OUTSIDE RECORDS SUMMARY | 2025-01-14 13:28 | XMS_ITS | Encounter Summary ---
Author Organization [employer] Address [address] [facility] 7t [place] [address] Care Team Providers Care Copy Chief Name Role Phone Tyesha Rogers MD Primary Care Provider [phone] Encounter Details Date Type Department Care Team ([facility] st Contact Info) Description 10/29/2024 Orders Only [facility] [address] [place], [place] [phone] ProviderJhony MD Social History Tobacco Use Types [...] 03/04/2025 1:30 PM EDT Office Visit [facility] OPTOMETRY [address] [place] [address] Raf, Katharine, OD [address] [place] [address] 04/25/2025 10:15 AM EDT Office Visit [facility] MEDICINE [address] [place] [address] Pieter Alcantar MD [address] [place] [address] documented as of this encounter Procedures Procedure [...] documented as of this encounter Care Teams Copy Chief Relationship Specialty Start Date End Date Tyesha Rogers MD [address] [place] [address] PCP - General Family Medicine 04/25/19 documented as of this encounter
--- OUTSIDE RECORDS SUMMARY | 2025-01-14 13:28 | XMS_ITS | Encounter Summary ---
Author Organization [facility] Address [address] [place] [address] Care Team Providers Care Curator Of Education Name Role Phone Casandra Duong MD Primary Care Provider Barrie Frederick Pcp Primary Care Provider Pilar Gustafson MD Primary Care Provider Unavail Donna Wadsworth MD Primary Care Provider Tyesha Cheatham Primary Care Provider Martinez hunter Encounter Details Date Type Department Care Team Description 09/23/2015 [facility] Medical Records [address] [place] [address] [facility] Social History Tobacco Use Types Packs/Day Years [...] on filedocumented in this encounter Care Teams Curator Of Education Relationship Specialty Start Date End Date Casandra Duong MD PCP - General Internal Medicine 08/31/15 01/07/16 Yoly Pcp PCP - General Internal Medicine 01/08/16 09/14/16 Pilar Coombs MD PCP - General Internal Medicine 09/15/16 01/07/19 Donna Donis MD PCP - General Internal Medicine 01/08/19 12/01/21 Tyesha Roegrs PCP - General Family Practice 12/02/21 documented as of this encounter
--- OUTSIDE RECORDS SUMMARY | 2025-01-14 13:28 | XMS_ITS | Encounter Summary ---
Author Organization [facility] Address [address] [place] [address] Care Team Providers Care Supervisor Acoustical Tile Carpenters Name Role Phone Pcp, No Primary Care Provider Unavailabl e Encounter Details Date Type Department Care Team (Late st Contact Info) Description 06/09/2021 Scanned Document [facility] Neurology [address] [phone] Neurology, Scan Social History Tobacco Use Types [...] on filedocumented in this encounter Care Teams Supervisor Acoustical Tile Carpenters Relationship Specialty Start Date End Date Pcp, No PCP - General General Medicine 05/13/21 documented as of this encounter
--- OUTSIDE RECORDS SUMMARY | 2025-01-14 13:28 | XMS_ITS | Encounter Summary ---
Author Organization [facility] Address [address] [place] [address] Care Team Providers Care Realty Loan Specialist Name Role Phone Pilar Coombs MD Primary Care Provider Unavail able Donna Donis MD Primary Care Provider Tyesha Cheatham Primary Care Provider Unavailabl e Encounter Details Date Type Department Care Team Description 10/01/2016 Hospital Medical Records [address] [place] [address] Dre Senior MD Social History Tobacco Use Types Packs/Day [...] on filedocumented in this encounter Care Teams Realty Loan Specialist Relationship Specialty Start Date End Date Pilar Coombs MD PCP - General Internal Medicine 09/15/16 01/07/19 Donna Donis MD PCP - General Internal Medicine 01/08/19 12/01/21 Tyesha Rogers PCP - General Family Practice 12/02/21 documented as of this encounter
--- OUTSIDE RECORDS SUMMARY | 2025-01-14 13:28 | XMS_ITS | Encounter Summary ---
Author Organization [employer] Address [address] [facility] 7t [place] [address] Care Team Providers Care Metalizing Machine Operator Name Role Phone Tyesha Rogers MD Primary Care Provider [phone] Encounter Details Date Type Department Care Team (Late Contact Info) Description 08/30/2022 Abstract [facility] MEDICINE [address] [place] [address] Tyesha Rogers MD [address] [place] [address] Social History Tobacco Use Types Packs/Day Years [...] [facility] OPTOMETRY [address] [place] [address] Katharine Carbone, ZAHIDA [address] [place] [address] 04/25/2025 10:15 AM EDT Office Visit [facility] MEDICINE [address] [place] [address] Pieter Alcantar MD [address] [place] [address] documented as of this encounter Visit Diagnoses Not on filedocumented in this encounter Additional Health Concerns Assessment Noted Time PHQ-9 Depression Total Score: 9 08/18/20 22 11:40 AM EST documented as of this encounter Care Teams Metalizing Machine Operator Relationship Specialty Start Date End Date Tyesha Rogers MD [address] [place], [place] [phone] PCP - General Family Medicine 04/25/19 documented as of this encounter
--- OUTSIDE RECORDS SUMMARY | 2025-01-14 13:28 | XMS_ITS | Encounter Summary ---
Author Organization [facility] Address [address] [place] [address] Care Team Providers Care Temperer Name Role Phone Casandra Duong MD Primary Care Provider Barrie Frederick Pcp Primary Care Provider Pilar Gustafson MD Primary Care Provider Unavail able Donna Donis MD Primary Care Provider Tyesha Cheatham Primary Care Provider Martinez hunter Encounter Details Date Type Department Care Team Description 12/03/2015 FRONT END SPECIAL[facility] Medical Records [address] [place] [address] Abstract, Provider Social History Tobacco Use Types [...] on filedocumented in this encounter Care Teams Temperer Relationship Specialty Start Date End Date Casandra [...]
--- OUTSIDE RECORDS SUMMARY | 2025-01-14 13:28 | XMS_ITS | Encounter Summary ---
Author Organization [facility] Address [address] [place] [address] Care Team Providers Care Laborer Concrete Plant Name Role Phone Casandra Duong MD Primary Care Provider Barrie Frederick Pcp Primary Care Provider Pilar Gustafson MD Primary Care Provider Unavail Donna Wadsworth MD Primary Care Provider Tyesha Cheatham Primary Care Provider Martinez hunter Encounter Details Date Type Department Care Team Description 10/21/2015 [facility] Medical Records [address] [place] [address] Alexander Luna MD Social History Tobacco Use [...] on filedocumented in this encounter Care Teams Laborer Concrete Plant Relationship Specialty Start Date End Date Casandra [...]
--- OUTSIDE RECORDS SUMMARY | 2025-01-14 13:28 | XMS_ITS | Encounter Summary ---
Author Organization [facility] Address [address] [place] [address] Care Team Providers Care Director Of Public Safety Name Role Phone Casandra Duong MD Primary Care Provider Barrie Frederick, Pcp Primary Care Provider Pilar Gustafson MD Primary Care Provider Unavail able Donna Donis MD Primary Care Provider Tyesha Cheatham Primary Care Provider Martinez hunter Encounter Details Date Type Department Care Team Description 09/30/2015 Examination Scorer Report Medical Records [address] [place] [address] Negin Isaac Social History Tobacco Use Types Packs/Day Years Used Date Smoking Tobacco: Former Cigarettes Q uit: 09/11/2015 Smokeless Tobacco: Never Comments:trying to quit Alcohol Use Standard Drinks/Week Comments Yes 0 (1 standard drink = 0.6 oz pur e alcohol) 3 drinks per mo Sex Assigned at Date Recorded Not on file documented as of this encounter Plan of Treatment Not on file documented as of this encounter Visit Diagnoses Not on filedocumented in this encounter Care Teams Director Of Public Safety Relationship Specialty Start Date End Date Casandra [...]
--- OUTSIDE RECORDS SUMMARY | 2025-01-14 13:28 | XMS_ITS | Encounter Summary ---
Author Organization [id number] Address [address] [place] [address] 7t [place] [address] Care Team Providers Care Exceptional Student Education Teacher Name Role Phone Tyesha Rogers MD Primary Care Provider [phone] Encounter Details Date Type Department Care Team (Late Contact Info) Description 08/11/2022 Orders Only [facility] PEDIATRICS [address] [place] [address] Loren Oliva MD [address] [place] [address] Social History Tobacco Use Types Packs/Day Years [...] PM EDT Office Visit [facility] OPTOMETRY [address] [place] [address] Katharine Carbone OD [address] [place] [address] 04/25/2025 10:15 AM EDT Office Visit [facility] MEDICINE [address] [place] [address] Pieter Alcantar MD [address] [place] [address] documented as of this encounter Visit Diagnoses Not on filedocumented in this encounter Care Teams Exceptional Student Education Teacher Relationship Specialty Start Date End Date Tyesha Rogers MD [address] [place] [address] PCP - General Family Medicine 04/25/19 documented as of this encounter
--- OUTSIDE RECORDS SUMMARY | 2025-01-14 13:28 | XMS_ITS | Encounter Summary ---
Author Organization [employer] Address [address] [facility] 7t [place] [address] Care Team Providers Care Mower Sharpener Name Role Phone Tyesha Rogers MD Primary Care Provider [phone] Reason for Visit * Reason Comments Med Refill Encounter Details Date Type Department Care Team ([facility] st Contact Info) Description 11/29/2023 Refill [facility] MEDICINE [address] [place], [place] [phone] Tyesha Rogers MD [address] [place] [address] Social History Tobacco Use Types Packs/Day Years [...] Office Visit [facility] OPTOMETRY [address] [place] [address] RafKatharine fu, OD [address] [place] [address] 04/25/2025 10:15 AM EDT Office Visit [facility] MEDICINE [address] [place] [address] Pieter Alcantar MD [address] [place] [address] documented as of this encounter Visit Diagnoses Not on filedocumented in this encounter Additional Health Concerns Assessment Noted Time PHQ-9 Depression Total Score: 21 023 9:42 AM EDT documented as of this encounter Care Teams Mower Sharpener Relationship Specialty Start Date End Date Tyesha Rogers MD [address] [place] [address] PCP - General Family Medicine 04/25/19 documented as of this encounter
--- OUTSIDE RECORDS SUMMARY | 2025-01-14 13:29 | XMS_ITS | Encounter Summary ---
Author Organization [facility] Address [address] [place] [address] Care Team Providers Care Service Advisor Name Role Phone Imelda Camarillo DO Primary Care Pro vider Unavailable Casnadra Duong MD Primary Care Provider Barrie Frederick, Pcp Primary Care Provider Pilra Gustafson MD Primary Care Provider Donna Brown MD Primary Care Provider Tyesha Cheatham Primary Care Provider Martinez hunter Encounter Details Date Type Department Care Team Description 07/13/2015 [facility] Medical Records [address] [place] [id number] Social History Tobacco Use Types Packs/Day Years [...] on filedocumented in this encounter Care Teams Service Advisor Relationship Specialty Start Date End Date Imelda Camarillo DO PCP - General Internal Medicine 12/26/14 08/30/15 Casandra Duong MD PCP - General Internal Medicine 08/31/15 01/07/16 [facility], Pcp PCP - General Internal Medicine 01/08/16 09/14/16 Pilar Coombs MD PCP - General Internal Medicine 09/15/16 01/07/19 Donna Donis MD PCP - General Internal Medicine 01/08/19 12/01/21 Tyesha Rogers PCP - General Family Practice 12/02/21 documented as of this encounter
--- OUTSIDE RECORDS SUMMARY | 2025-01-14 13:29 | XMS_ITS | Encounter Summary ---
Author Organization [facility] Address [address] [place] [address] Care Team Providers Care Cuff Folder Name Role Phone Imelda Camarillo DO Primary Care Pro vider Unavailable Casandra Duong MD Primary Care Provider Barrie Frederick, Pcp Primary Care Provider Pilar Gustafson MD Primary Care Provider Unavail Donna Wadsworth MD Primary Care Provider Tyesha Cheatham Primary Care Provider Martinez hunter Encounter Details Date Type Department Care Team Description 06/07/2015 [facility] Medical Records [address] [place] [id number] Cheryl Luna Social History Tobacco Use Types Packs/Day Years [...] on filedocumented in this encounter Care Teams Cuff Folder Relationship Specialty Start Date End Date Imelda Camarillo DO PCP - General Internal Medicine 12/26/14 08/30/15 Casandra Duong MD PCP - General Internal Medicine 08/31/15 01/07/16 [facility], Pcp PCP - General Internal Medicine 01/08/16 09/14/16 Pilar Coombs MD PCP - General Internal Medicine 09/15/16 01/07/19 Donna Donis MD PCP - General Internal Medicine 01/08/19 12/01/21 Tyesha Rogers PCP - General Family Practice 12/02/21 documented as of this encounter
--- OUTSIDE RECORDS SUMMARY | 2025-01-14 13:29 | XMS_ITS | Encounter Summary ---
Author Organization [employer] Address [address] [facility] 7 [place] [address] Care Team Providers Care Director Public Service Name Role Phone Tyesha Rogers MD Primary Care Provider [phone] Reason for Visit * Reason Onset Date Comments Nurse Triage 07/04/2023 Encounter Details Date Type Department Care Team ([facility] st Contact Info) Description 07/04/2023 Telephone [facility] MEDICINE [address] [place] [address] Tyesha Rogers MD [address] [place] [address] Nurse Triage Social History Tobacco Use Types [...] supposed to start the suboxone program at [facility] but, missedher appt. In May 2023 ,she [...] on her way to Walk in at [facility]. I will send this note oliverio in [place] to let them know that pt. Will need a [facility] counselor present for appt. Pt. States that she will arrive to [facility] walk in around 1-130pm. Pt. Declining to [...] Description 03/04/2025 1:30 PM EDT Office Visit [facility] OPTOMETRY [address] [place] [address] Katharine Carbone OD [address] [place] [address] 04/25/2025 10:15 AM EDT Office Visit [facility] MEDICINE [address] [place] [address] Pieter Alcantar MD [address] [place] [address] documented as of this encounter Visit Diagnoses Not on filedocumented in this encounter Additional Health Concerns Assessment Noted Time PHQ-9 Depression Total Score: 9 08/18/20 22 11:40 AM EST documented as of this encounter Care Teams Director Public Service Relationship Specialty Start Date End Date Tyesha Rogers MD [address] [place] [address] PCP - General Family Medicine 04/25/19 documented as of this encounter
--- OUTSIDE RECORDS SUMMARY | 2025-01-14 13:29 | XMS_ITS | Encounter Summary ---
Author Organization [employer] Address [address] [facility] 7 [place] [address] Care Team Providers Care Monorail Hooker Name Role Phone Tyesha Rogers MD Primary Care Provider [phone] Encounter Details Date Type Department Care Team ([facility] st Contact Info) Description 07/11/2024 Telephone [facility] MEDICINE [address] [place] [address] Mira Vanegas, PharmD [address] [place] [address] Social History Tobacco Use Types Packs/Day Years [...] Please assist in obtaining discharge paperwork from [facility] Patient was admitted on 06/21/2024. Thank you documented in this encounter Plan of Treatment Upcoming Encounters Date Type Department Care Team (Late st Contact Info) Description 03/04/2025 1:30 PM EDT Office Visit [facility] OPTOMETRY [address] [place] [address] Raf, Katharine, OD [address] [place] [address] 04/25/2025 10:15 AM EDT Office Visit [facility] MEDICINE [address] [place] [address] Pieter Alcantar MD [address] [place] [address] documented as of this encounter Visit Diagnoses Not on filedocumented in this encounter Additional Health Concerns Assessment Noted Time PHQ-9 Depression Total Score: 24 024 8:33 AM EDT documented as of this encounter Care Teams Monorail Hooker Relationship Specialty Start Date End Date Tyesha Rogers MD [address] [place] [address] PCP - General Family Medicine 04/25/19 documented as of this encounter
--- OUTSIDE RECORDS SUMMARY | 2025-01-14 13:29 | XMS_ITS | Encounter Summary ---
Author Organization [employer] Address [address] [facility] [address] [place] [address] Care Team Providers Care Senior Cognos Developer Name Role Phone Tyesha Rogers MD Primary Care Provider Encounter Details Date Type Department Care Team ([facility] st Contact Info) Description 06/05/2024 Orders Only [facility] [address] [place] [address] Henry Choi MD [address] [place] [address] Social History Tobacco Use Types Packs/Day Years [...] Description 03/04/2025 1:30 PM EDT Office Visit [facility] OPTOMETRY [address] [place] [address] Raf, Katharine, OD [address] [place] [address] 04/25/2025 10:15 AM EDT Office Visit [facility] MED[facility]INE [address] [place] [address] Pieter Alcantar MD [address] [place] [address] documented as of this encounter Visit Diagnoses Not on filedocumented in this encounter Additional Health Concerns Assessment Noted Time PHQ-9 Depression Total Score: 24 024 10:42 AM EDT documented as of this encounter Care Teams Senior Cognos Developer Relationship Specialty Start Date End Date Tyesha Rogers MD [address] [place] [address] PCP - General Family Medicine 04/25/19 documented as of this encounter
--- OUTSIDE RECORDS SUMMARY | 2025-01-14 13:29 | XMS_ITS | Encounter Summary ---
Author Organization [employer] Address [address] [facility] 7t [place] [address] Care Team Providers Care Cake Winder Name Role Phone Tyesha Rogers MD Primary Care Provider [phone] Encounter Details Date Type Department Care Team (Late st Contact Info) Description 01/25/2024 Orders Only [facility] MEDICINE [address] [place], [place] [phone] Tyesha Rogers MD [address] [place] [address] Social History Tobacco Use Types Packs/Day Years [...] Description 03/04/2025 1:30 PM EDT Office Visit [facility] OPTOMETRY [address] [place] [address] Raf, Katharine, OD [address] [place] [address] 04/25/2025 10:15 AM EDT Office Visit [facility] MED[facility]INE [address] [place] [address] Pieter Alcantar MD [address] [place] [address] documented as of this encounter Visit Diagnoses Not on filedocumented in this encounter Additional Health Concerns Assessment Noted Time PHQ-9 Depression Total Score: 21 024 10:41 AM EDT documented as of this encounter Care Teams Cake Winder Relationship Specialty Start Date End Date Tyesha Rogers MD [address] [place] [address] PCP - General Family Medicine 04/25/19 documented as of this encounter
--- OUTSIDE RECORDS SUMMARY | 2025-01-14 13:29 | XMS_ITS | Encounter Summary ---
Author Organization [facility] Address [address] [place] [address] Care Team Providers Care Dinkey Skinner Name Role Phone Imelda Camarillo DO Primary Care Pro vider Unavailable Casandra Duong MD Primary Care Provider Unavaila wendy Frederick, Pcp Primary Care Provider Pilar Gustafson MD Primary Care Provider Unavail Donna Wadsworth MD Primary Care Provider Tyesha Cheatham Primary Care Provider Martinez e Reason for Visit * Reason Onset Date Comments er follow up 07/20/2015 Encounter Details Date Type Department Care Team Description 07/20/2015 Telephone Adult Medicine [address] [phone] Imelda Camarillo DO er follow up Social History Tobacco Use Types Packs/Day Years Used Date Smoking Tobacco: Some Days Cigarettes Comments:trying to quit Alcohol Use Standard Drinks/Week Comments Yes 0 (1 standard drink = 0.6 oz pur e alcohol) 3 drinks per mo Sex Assigned at Date Recorded Not on file documented as of this encounter Miscellaneous Notes * Telephone Encounter - Татьяна Givens M.A. - 07/21/2015 7:48 AM EST Notes given to triage to book appt. * Telephone Encounter - Ena Duff - 07/20/2015 10:15 AM EST ER follow-up appointment booked NO If ER follow up, can be booked with mid-level or MD. If hospital admission follow up MUST be booked with a physician Appointment time: AM Provider visit is scheduled with: Hospital patient was treated at: [facility] Date of visit: 07/11/15 Was this only an ER visit or was the patient admitted to the hospital? Admitted to hospitalAdmittedto hospital If patient was admitted what was the date of discharge? 07/18/15 Reason/diagnosis for visit or stay: suicidal Was visit or stay related to an injury? NO If yes, what was the date of injury (DOI)? If yes, was the injury due to N/A Tests performed: Lab: YES X-ray: YES EKG: YES Other tests. If yes, what?; documented in this encounter Plan of Treatment Not on file documented as of this encounter Visit Diagnoses Not on filedocumented in this encounter Care Teams Dinkey Skinner Relationship Specialty Start Date End Date Imelda [...]
--- OUTSIDE RECORDS SUMMARY | 2025-01-14 13:29 | XMS_ITS | Encounter Summary ---
Author Organization [employer] Address [address] [facility] 7[address] [place] [address] Care Team Providers Care Ethics Manager Name Role Phone Tyesha Rogers MD Primary Care Provider [phone] Reason for Visit * Reason Comments Med Refill Encounter Details Date Type Department Care Team ([facility] st Contact Info) Description 01/22/2024 Refill [facility] MEDICINE [address] [place], [place] [phone] Tyesha Rogers MD [address] [place], [place] [phone] Other chronic pain Social History Tobacco Use [...] Description 03/04/2025 1:30 PM EDT Office Visit [facility] OPTOMETRY [address] [place] [address] Raf, Katharine, OD [address] [place] [address] 04/25/2025 10:15 AM EDT Office Visit [facility] MEDICINE [address] [place] [address] Pieter Alcantar MD [address] [place] [address] documented as of this encounter Visit Diagnoses Diagnosis Other chronic pain documented in this encounter Additional Health Concerns Assessment Noted Time PHQ-9 Depression Total Score: 21 024 10:41 AM EDT documented as of this encounter Care Teams Ethics Manager Relationship Specialty Start Date End Date Tyesha Rogers MD [address] [place] [address] PCP - General Family Medicine 04/25/19 documented as of this encounter
--- OUTSIDE RECORDS SUMMARY | 2025-01-14 13:29 | XMS_ITS | Encounter Summary ---
Author Organization [facility] Address [address] [place] [address] Care Team Providers Care Real Estate Portfolio Manager Name Role Phone Imelda Camarillo DO Primary Care Pro vider Unavailable Casandra Duong MD Primary Care Provider Barrie Frederick, Pcp Primary Care Provider Pilar Gustafson MD Primary Care Provider Unavail Donna Wadsworth MD Primary Care Provider Tyesha Cheatham Primary Care Provider Martinez hunter Encounter Details Date Type Department Care Team Description 06/24/2015 [facility] Medical Records [address] [place] [phone] Alexander Luna MD Social History Tobacco Use [...] on filedocumented in this encounter Care Teams Real Estate Portfolio Manager Relationship Specialty Start Date End Date Imelda [...]
--- OUTSIDE RECORDS SUMMARY | 2025-01-14 13:29 | XMS_ITS | Clinical Summary ---
Author Organization [employer] Address [address] [place] [address] 7 [place] [address] Care Team Providers Care Public Welfare Worker Name Role Phone Tyesha Houston MD Primary Care Provider [phone] Allergies Active Allergy Reactions Criticality Noted Date [...] Unable to Define Lisinopril-Hydrochlorothiazi de Cough 12/06/2016 [place] High 12/04/2018 Other reaction(s): stiffened up & [...] use of insulin ([facility]) Administer 15 g orally as needed for blood glucose < 60 mg/dl. Use glucagon if pt cannot swallow or is unresponsive. Call emergency if pt is lethargic or unresponsive. 45 g 3 023 Active Additional Information Patient not taking.Reported on 12/31/2024 EPINEPHrine (EpiPen 2-Bashir) 0.3 MG/0.3ML injection syringe Inject 0.3 mL (0.3 mg) as directed if needed for anaphylaxis. 1 each 024 Active insulin lispro (HumaLOG) 100 UNIT/ML injectionIndicat ions:Type 2 diabetes mellitus with hyperglycemia, with long-term current use of insulin ([facility]) << Sliding Scale Comments >>100 - 149 8 units Call if less than [id number] - 199 10 units 200 - 249 12 units 250 - 299 14 units 300 - 349 16 units Call if greater than 400... 20 mL 2 024 Active losartan (Cozaar) 100 MG tablet Take 1 tablet (100 mg) by mouth Once per day. 90 tablet 025 Active atorvastatin (Lipitor) 40 MG tablet Take 1 tablet (40 mg) by mouth Once per day. 90 tablet 025 Active metFORMIN XR (Glucophage-XR) 500 MG 24 hr tabletIndication s:Type 2 diabetes mellitus with hyperglycemia ([facility]) Take 2 tablets (1,000 mg) by mouth with breakfast and with evening meal. Do not crush, chew, or split. 360 tablet 025 Active apixaban (Eliquis) 5 MG tablet Take 1 tablet (5 mg) by mouth every 12 (twelve) hours. 60 tablet 3 025 Active insulin pen needle 32G x 5 mm misc Inject under the skin 4 times daily. Use as instructed 120 each Active FreeStyle lancets 1 each by Other route 4 times daily. Test blood sugar 4 times a day 100 each 5 Active Blood Glucose Monitoring Suppl (FreeStyle [place] Lite) w/Device kit Use to test blood sugar bid dx dm 1 kit Active Alcohol Swabs (Alcohol Prep) pads Check blood sugar three times daily and as needed when feeling ill 100 each 3 Active glucose blood (FREESTYLE LITE) test stripIndications :Type 2 diabetes mellitus with hyperglycemia, with long-term current use of insulin ([facility]) USE TO TEST BLOOD SUGAR FOUR TIMES [...] with breakfast and with evening meal. Active acetaminophen (Tylenol) 500 MG tablet Take 2 tablets (1,000 mg) by mouth every 6 (six) hours if needed for moderate pain or fever for up to 25 doses. 50 tablet Active Blood Pressure kit Check BP every day. Goal BP < 140/90 1 kit Active fluconazole (Diflucan) 150 MG tablet Take 1 tablet by mouth once. May repeat in 3 days if still symptomatic. 2 tablet Active Additional Information Patient not taking.Reported on 12/31/2024 doxepin (SINEquan) 25 MG capsuleIndicatio ns:Neuropathy Take 1-2 capsules by mouth at bedtime as needed 60 capsule 5 Active insulin degludec (Tresiba FlexTouch) 100 UNIT/ML injection Administer subcutaneously 23 units daily 6 mL 11 Active Additional Information Patient not taking.Reported on 12/31/2024 albuterol (Ventolin HFA) 108 (90 Base) MCG/ACT inhalerIndicatio ns:Moderate persistent asthma without complication Inhale 2 puffs every 4 (four) hours if needed for wheezing. 18 g 3 025 Active cloNIDine (Catapres) 0.1 MG tablet Take 1 tablet (0.1 mg) by mouth if needed in the morning, at noon, and at bedtime (anxiety). 180 tablet 3 Active amLODIPine (Norvasc) 10 MG tablet Take 1 tablet (10 mg) by mouth Once per day. 90 tablet 3 025 2025 Active Ventolin HFA 108 (90 Base) MCG/ACT inhaler INHALE 2 PUFFS BY MOUTH EVERY 4 HOURS NEEDED FOR WHEEZING 18 g 1 025 2024 Discontinued(R eorder (will not trigger notification to Pharmacy)) amLODIPine (Norvasc) 5 MG tablet Take 1 tablet (5 mg) by mouth Once per day. 90 tablet 025 2024 Discontinued(R eorder (will not trigger notification to Pharmacy)) cloNIDine (Catapres) 0.1 MG tablet Take 1 tablet by mouth if needed in the morning, at noon, and at bedtime (anxiety). 2024 Discontinued(R eorder (will not trigger notification to Pharmacy)) Active Problems Problem Noted Date Diagnosed Date LUCILLE (generalized anxiety disorder) 12/16/2024 Hypertensive emergency 06/26/2024 Assessment & Plan (06/26/2024 12:15 PM EDT): EMS called, patient presented to YORDAN Garcia to the [facility] emergency department Precordial pain 06/26/2024 Assessment & Plan (06/26/2024 12:15 PM EDT): EMS called, patient presented to YORDAN Radha to the [facility] emergency department Acute hyperglycemia 06/26/2024 Assessment & Plan (06/26/2024 12:15 PM EDT): EMS called, patient presented to YORDAN Radha to the [facility] emergency department Hypomagnesemia 06/04/2024 Right wrist pain [...] restlessness. Emily agrees to go up to [facility], and attempt to reschedule with therapist. Emily is open to a referral to [facility] for psychiatric medication. She also requests to return to [facility]. LUCIUS Hatch has scheduled that [...] sxs. She is engage in MH at [facility] with therapist Aminata Bolton. I will submit referral to [facility] for Psychiatrist services. Provided education around integrated [...] treatmetn engagement. PLAN: 1. Follow up with [facility]: Not recommended for follow-up 2. Patient goal is to become mentally stable and work on her sobriety 3. Behavioral Recommendations a. Remind engage in MH services with [facility] b. Referral to [facility] for Psychiatrist services c. [facility] contact information for support. Ischemic heart disease 09/04/2022 Assessment & Plan (01/14/2025 11:12 AM EDT): - soft sugar supervisor: [facility]. Last seen in December 2022 - CAD, remote non-STEMI on 10/29, reported moderate CAD - History of DVT and likely PEA at [facility], on apixaban and 12 contrast allergy with anaphylaxis. Assessment & Plan (08/25/2023 7:04 PM EST): - soft sugar supervisor: [facility]. Last seen in December 2022 - CAD, remote non-STEMI on 10/29, reported moderate CAD - History of DVT and likely PEA at [facility], on apixaban and 12 contrast allergy with anaphylaxis. Assessment & Plan (12/22/2022 5:36 AM EDT): -Foam Rubber Fabricator: Umesh Forrester, last seen in Sep 2021 -Hx mild CAD, last cardiac cath on 03/06/20 -continue ARB and statin -continue working on lifestyle modification -not on ASA since she started taking Eliquis for PE -previously on propranolol for ARCEO, but no longer taking it due to Hx hypotension -follow-up with soft sugar supervisor as scheduled Assessment & Plan (09/04/2022 12:05 PM EST): -Foam Rubber Fabricator: Umesh Forrester, last seen in Sep 2021 -Hx mild CAD, last cardiac cath on 03/06/20 -continue ARB and statin -continue working on lifestyle modification -not on ASA since she started taking Eliquis for PE -previously on propranolol for ARCEO, but no longer taking it due to Hx hypotension -follow-up with soft sugar supervisor as scheduled Tobacco use 08/30/2022 Assessment & Plan (01/14/2025 11:16 AM EDT): - work on smoking cessation - refer to lung cancer screening program Assessment & Plan (08/25/2023 7:09 PM EST): - work on smoking cessation - refer to lung cancer screening program Recurrent kidney stones 08/19/2022 Assessment & Plan (01/14/2025 11:13 AM EDT): [facility] last seen in Aug 2021 S/p right ESWL on 01/29/20 S/p left cystoscopy, retrograde laser and stent on 02/28/20 S/p removal on 04/07/21 S/p cystoscopy and ureteroscopy on 08/23/21 Drink water > 2L / day Assessment & Plan (12/22/2022 5:58 AM EDT): ?? Urologist: Dr. Roger Boyd, last seen in Aug 2021 ?? S/p right ESWL on 01/29/20 ?? S/p left cystoscopy, retrograde laser and stent on 02/28/20 ?? S/p removal on 04/07/21 ?? S/p cystoscopy and ureteroscopy on 08/23/21 ?? Drink water > 2L / day Assessment & Plan (09/04/2022 12:06 PM EST): ?? Urologist: Dr. Roger Boyd, last [...] ?? Drink water > 2L / day Neurogenic bladder 08/19/2022 Overview (08/19/2022): ?? Followed by urologist History of pulmonary embolism 08/19/2022 Overview (08/19/2022): ?? Hx DVT and PE in 2019, unprovoked ?? Eliquis since 2019 Asthma 08/02/2022 Assessment & Plan (08/25/2023 6:52 PM EST): - Change Flovent to Asmanex - Continue albuterol HFA and neb prn Mood disorder 08/02/2022 Assessment & Plan (01/14/2025 11:14 AM EDT): Current Dx: Bipolar disorder, sometimes she is diagnosed with MDD. Occasionally with [facility] due to borderline tendency and conversion disorder Hx suicide attempt several times (one time overdosed insulin) [facility] provider: Dr. Abi MCDONNELL is psychiatrist, previously Albina Duff was her therapist. Encouraged to reach out to her [facility] therapist and psychiatrist for her concerns and medication management She was able to contract her safety today Assessment & Plan (08/25/2023 7:11 PM EST): Current Dx: Bipolar disorder, sometimes she is diagnosed with MDD. Occasionally with [facility] due to borderline tendency and conversion disorder Hx suicide attempt several times (one time overdosed insulin) [facility] provider: Dr. Abi MCDONNELL is psychiatrist, previously Albina Duff was her therapist. Encouraged to reach out to her [facility] therapist and psychiatrist for her concerns and medication management She was able to contract her safety today Assessment & Plan (09/04/2022 12:10 PM EST): ?? Current Dx: Bipolar disorder, sometimes she is diagnosed with MDD. Occasionally with [facility] due to borderline tendency and conversion disorder ?? S provider: Dr. Abi MCDONNELL is psychiatrist, Albina Duff has been her therapist. ?? Encouraged to reach out to her [facility] therapist and psychiatrist for her concerns and medication management ?? She was able to contract her safety today Assessment & Plan (08/19/2022 11:13 AM EST): ?? Current Dx: Bipolar disorder, sometimes she is diagnosed with MDD. Occasionally with [facility] due to borderline tendency and conversion disorder ?? [facility] provider: Dr. Abi MCDONNELL is psychiatrist, Albina Duff has been her therapist. ?? Encouraged to reach out to her [facility] therapist and psychiatrist for her concerns and medication management ?? She was able to contract her safety today Cervical dysplasia 08/02/2022 Cocaine use disorder 08/02/2022 H/O: attempted suicide 08/02/2022 Substance use disorder 08/02/2022 Opioid use disorder 08/02/2022 Coronary artery disease 09/26/2018 Type 2 diabetes mellitus with hyperglycemia 09/11 Overview (01/13/2025): >>OVERVIEW FOR TYPE 2 DIABETES MELLITUS, WITH LONG-TERM CURRENT USE OF INSULIN ([facility]) WRITTEN ON 03/15/2023 10:18 AM BY SNEHA STRICKLAND Diabetes is controlled. - Lab Results Component Value Date HGBA1C 12.6 (A) 08/30/2022 HGBA1C 12.1 (A) 08/18/2022 HGBA1C 8.7 (H) 08/25/2020 -No results found for: POCA1C - Lab Results Component Value Date MICROALBUR 1.3 04/04/2022 CREATININE 0.92 10/07/2022 -Changes: -Onesimo/Arb: -Statin therapy: -Diabetic eye exam: -Diabetic foot exam: -Continue lifestyle modifications -Continue current medications Assessment & Plan (01/14/2025 12:15 PM EDT): Hgb A1C 12.6% 01/14/25, slight increase from [...] Up coming eye appointment in February with [facility] Foot exam: 01/14/25 Neuropathy; callus; previously written a script for diabetic footwear. She did not go to [employer]. Referred to door glass installer Assessment & Plan (01/13/2025 9:51 PM EDT): >>ASSESSMENT AND PLAN FOR TYPE 2 DIABETES MELLITUS, WITH LONG-TERM CURRENT USE OF INSULIN ([facility]) WRITTEN ON 08/25/2023 7:08 PM BY TYESHA HOUSTON MD Hgb A1C 12.4% on 08/08/23. Continue working [...] profile: 04/04/22 Diabetic eye exam: Referred to [facility] in the past; will check its status Foot exam: 08/08/23 Neuropathy; callus; previously written a script for diabetic footwear. She did not go to [employer]. Will refer to door glass installer Assessment & Plan (01/13/2025 9:51 PM EDT): >>ASSESSMENT AND PLAN FOR TYPE 2 DIABETES MELLITUS WITH HYPERGLYCEMIA ([facility]) WRITTEN ON 09/27/2023 6:06 AM BY TYESHA HOUSTON MD Hgb A1C 12.4% on 08/08/23. Continue working [...] profile: 04/04/22 Diabetic eye exam: Referred to [facility] in the past; will check its status Foot exam: 08/08/23 Neuropathy; callus; previously written a script for diabetic footwear. She did not go to pickle p[employer] the shoes. Will refer to door glass installer >>ASSESSMENT AND PLAN FOR TYPE 2 DIABETES MELLITUS, WITH LONG-TERM CURRENT USE OF INSULIN ([facility]) WRITTEN ON 09/27/2023 6:06 AM BY TYESHA HOUSTON MD Hgb A1C 12.4% on 08/08/23. Continue working [...] profile: 04/04/22 Diabetic eye exam: Referred to [facility] in the past; will check its status Foot exam: 08/08/23 Neuropathy; callus; previously written a script for diabetic footwear. She did not go to [employer] the shoes. Will refer to door glass installer Assessment & Plan (12/22/2022 5:56 AM EDT): [...] 04/04/22 ?? Diabetic eye exam: Referred to [facility] in the past; will check [...] 04/04/22 ?? Diabetic eye exam: Referred to [facility] in the past; will check [...] 04/04/22 ?? Diabetic eye exam: Referred to [facility] in the past; will check its status ?? Foot exam: 08/18/22 Neuropathy; callus; written a script for diabetic footwear. Assessment & Plan (01/13/2025 9:51 PM EDT): >>ASSESSMENT AND PLAN FOR TYPE 2 DIABETES MELLITUS WITH HYPERGLYCEMIA ([facility]) WRITTEN ON 08/19/2022 10:52 AM BY TYESHA HOUSTON MD Hgb A1C 15% on 08/18/22, 11.7% in Apr 2022 Continue working on lifestyle modifications Continue checking BG Continue basal insulin, Lantus, 25 units at bedtime Continue metformin ER 1000 mg bid Discussed about SGLT-2 inhibitor, but pt has frequent urinary symptoms (MS, recurrent nephrolithiasis); therefore, will hold off at this time Treatment Hx: Trulicity was discontinued in March 2022 when pt developed pancreatitis. Microalbumin test: 04/04/22 No microalbuminuria Lipid profile: 04/04/22 Diabetic eye exam: Referred to [facility] care in the past; will check its status Foot exam: 08/18/22 Neuropathy; callus; will write a script for diabetic footwear. >>ASSESSMENT AND PLAN FOR TYPE 2 DIABETES MELLITUS, WITH LONG-TERM CURRENT USE OF INSULIN ([facility]) WRITTEN ON 08/19/2022 10:52 AM BY TYESHA HOUSTON MD Hgb A1C 15% on 08/18/22, 11.7% in Apr 2022 Continue working on lifestyle modifications Continue checking BG Continue basal insulin, Lantus, 25 units at bedtime Continue metformin ER 1000 mg bid Discussed about SGLT-2 inhibitor, but pt has frequent urinary symptoms (MS, recurrent nephrolithiasis); therefore, will hold off at this time Treatment Hx: Trulicity was discontinued in March 2022 when pt developed pancreatitis. Microalbumin test: 04/04/22 No microalbuminuria Lipid profile: 04/04/22 Diabetic eye exam: Referred to [facility] care in the past; will check its status Foot exam: 08/18/22 Neuropathy; callus; will write a script for diabetic footwear. Dyslipidemia 08/29/2018 Overview (03/15/2023): Lab Results Component Value Date CHOLESTEROL 222 (H) 04/04/2022 LDLCHOL 124 (H) 04/04/2022 LDLCHOL 85 03/04/2022 LDLCHOL 131 (H) 08/27/2021 HDLCHOL 62 04/04/2022 CHOLHDLRAT 3.6 04/04/2022 -continue lifestyle modifications Assessment & Plan (01/14/2025 12:11 PM EDT): Current medication: atorvastatin 40 mg at bedtime Last lipid profile: 08/08/23 Continue current medication and lifestyle modification Assessment & Plan (08/25/2023 7:11 PM EST): [...] modifications -Continue current medications Assessment & Plan (01/14/2025 11:41 AM EDT): Blood pressure today is high, patient is clinically asymptomatic Extensive counseling done, she did not took her blood pressure medication today, I notice previous visits with similar blood pressure F/u with PCP - Increase amlodipine from 5 mg to 10 mg 01/14/25 Assessment & Plan (09/27/2023 6:07 AM EST): [...] low back pain 03/31/2017 Assessment & Plan (01/14/2025 11:14 AM EDT): Continue pregabalin Continue lidocaine patch. Anticipating to start PT/OT Assessment & Plan (10/03/2022 9:46 PM EST): [...] anxiety Multiple sclerosis 03/28/2017 Assessment & Plan (01/14/2025 12:08 PM EDT): Neurologist: [facility], last seen in Jun 2023 Current medication: Octrevus, started in May 2022 Flare-up frequency > 2x / year Last flare-up in Jun 2020, hospitalized in [facility], dexamathasone was not given due to concern for PML Last imaging studies: MRI brain / cervical spine in Apr 2022 at [facility] Followed by urologist for neurogenic bladder, recurrent UTI and recurrent kidney stone Treatment Hx: -Tysabri (Natalizumab) q4wks, 03/2020-05/2022 (Interruption due to concern for PML 06/2020-11/2020) -Gabapentin, pregabalin for pain, but discontinued due to side effect and ineffectiveness Pt was recommended to check with neurology office for MRI appt Assessment & Plan (09/27/2023 6:08 AM EST): Neurologist: [facility], last seen in Jun 2023 Current medication: Octrevus, started in May 2022 Flare-up frequency > 2x / year Last flare-up in Jun 2020, hospitalized in [facility], dexamathasone was not given due to concern for PML Last imaging studies: MRI brain / cervical spine in Apr 2022 at [facility] Followed by urologist for neurogenic bladder, recurrent UTI and recurrent kidney stone Treatment Hx: -Tysabri (Natalizumab) q4wks, 03/2020-05/2022 (Interruption due to concern for PML 06/2020-11/2020) -Gabapentin, pregabalin for pain, but discontinued due to side effect and ineffectiveness Pt was recommended to check with neurology office for MRI appt Assessment & Plan (08/25/2023 6:51 PM EST): Neurologist: [facility], last seen in Jun 2023 Current medication: Octrevus, started in May 2022 Flare-up frequency > 2x / year Last flare-up in Jun 2020, hospitalized in [facility], dexamathasone was not given due to concern for PML Last imaging studies: MRI brain / cervical spine in Apr 2022 at [facility] Followed by urologist for neurogenic bladder, recurrent UTI and recurrent kidney stone Treatment Hx: -Tysabri (Natalizumab) q4wks, 03/2020-05/2022 (Interruption due to concern for PML 06/2020-11/2020) -Gabapentin, pregabalin for pain, but discontinued due to side effect and ineffectiveness Pt was recommended to check with neurology office for MRI appt Assessment & Plan (12/22/2022 5:55 AM EDT): ?? Neurologist: [facility], last seen on 12/20/22 ?? Current medication: Octrevus, started in May 2022, 2nd dose scheduled on 12/31/22 ?? Flare-up frequency > 2x / year ?? Last flare-up in Jun 2020, hospitalized in [facility], dexamathasone was not given due to concern for PML ?? Last imaging studies: MRI brain / cervical spine in Apr 2022 at [facility] ?? Followed by urologist for neurogenic bladder, recurrent UTI and recurrent kidney stone ?? Treatment Hx: Tysabri (Natalizumab) q4wks, 03/2020-05/2022 (Interruption due to concern for PML 06/2020-11/2020) Copaxone (weight gain), aubagio (wt gain and hair loss), Gabapentin, pregabalin for pain, but discontinued due to side effect and ineffectiveness Assessment & Plan (10/03/2022 5:51 AM EST): ?? Neurologist: [facility], last seen on 05/12/22 ?? Current medication: Octrevus, started in May 2022 ?? Flare-up frequency > 2x / year ?? Last flare-up in Jun 2020, hospitalized in [facility], dexamathasone was not given due to concern for PML ?? Last imaging studies: MRI brain / cervical spine in Apr 2022 at [facility] ?? Followed by urologist for neurogenic bladder, recurrent UTI and recurrent kidney stone ?? Treatment Hx: Tysabri (Natalizumab) q4wks, 03/2020-05/2022 (Interruption due to concern for PML 06/2020-11/2020) Gabapentin, pregabalin for pain, but discontinued due to side effect and ineffectiveness Assessment & Plan (08/19/2022 11:02 AM EST): ?? Neurologist: [facility], last seen on 04/08/22 ?? Current medication: Octrevus, started in May 2022 ?? Flare-up frequency > 2x / year ?? Last flare-up in Jun 2020, hospitalized in [facility], dexamathasone was not given due to concern for PML ?? Last imaging studies: MRI brain / cervical spine in Apr 2022 at [facility] ?? Followed by urologist for neurogenic bladder, recurrent UTI and recurrent kidney stone ?? Treatment Hx: Tysabri (Natalizumab) q4wks, 03/2020-05/2022 (Interruption due to concern for PML 06/2020-11/2020) Gabapentin, pregabalin for pain, but discontinued due to side effect and ineffectiveness Posttraumatic stress disorder 03/28/2017 Assessment & Plan (01/14/2025 11:16 AM EDT): -will check the status of S Assessment & Plan (09/04/2022 12:10 PM EST): -will check the status of S Resolved Problems Problem Noted Date Diagnosed Date Resolved Date Daytime somnolence 12/19/2018 2 Encounters * This document contains information received from the source organization and may not represent a complete record from that organization. Date Type Department Care Team Description 01/14/2025 11:15 AM EDT Office Visit [address] [address] Tyesha Houston MD Multiple sclerosis (CMS/HCC) (Primary Dx); Hypertension, unspecified type; Ischemic heart disease; Coronary artery disease involving [place] coronary artery of [place] heart, unspecified whether angina present; Recurrent kidney [...] Routine screening for STI (sexually transmitted infection) 01/14/2025 Travel 01/13/2025 Telephone [facility] [address] [place] [id number] Tyesha Houston MD Appointment Request 01/10/2025 Patient Outreach [address] [address] Tyesha Houston MD Care Coordination 01/07/[address] [address] Tyesha Houston MD No Show 01/03/2025 Plan of Care Documentation [address] [id number] 01/03/[address] [address] Tyesha Houston MD chart prep 12/31/2024 Patient Outreach [address] [address] Tyesha Houston MD Care Management (C3- Initial assessment/enrollme nt) 12/27/2024 Patient Outreach [address] [address] Tyesha Houston MD 12/27/2024 Patient Outreach [address] [address] Tyesha Houston MD Care Coordination 12/25/2024 Travel 12/25/[address] [address] Tyesha Houston MD Moderate persistent asthma without complication 12/11/2024 Patient Outreach [address] [address] Tyesha Houston MD Care Coordination (C3 CM-UPPER [facility] Aminata Mendozaz Outreach and Enrollment-agrees to participate) 12/11/2024 Patient Outreach [address] [address] Tyesha Houston MD Care Coordination (C3 [facility] [place] chart review) 12/11/2024 Patient Outreach [address] [address] Tyesha Houston MD Care Coordination (C3- chart review) 12/11/2024 Patient Outreach [address] [address] Tyesha Houston MD Care Coordination (C3 CM-[facility] Aminata York telephone call outreach) 12/11/2024 Patient Outreach [address] [address] Tyseha Houston MD 12/11/2024 Patient Outreach [facility] [address] [place] [phone] Tyesha Houston MD Transition Of Care (Tcm) 12/10/2024 Orders Only [facility] [address] [place] [phone] Tyesha Houston MD Neuropathy 12/10/[address] [address] Soumya Bagley RN Rapid Assisst 11/23/2024 Refill [facility] [address] [place] [address] Tyesha Houston MD Other chronic pain 11/22/2024 Population Health Risk Score [facility] () [address] [phone] Provider, Population Health Generic 11/20/2024 Patient Outreach [address] [address] Tyesha Houston MD Care Coordination ([address] telephone call outreach) 11/20/2024 Patient Outreach [address] [address] Tyesha Houston MD Care Coordination ([address] telephone call outreach) 11/19/2024 10:20 AM EDT Office Visit [facility] [address] [place] [phone] Henry Choi MD Pain of right great toe (Primary Dx); Great toe pain, left; Flank pain; Hypertension, unspecified type 11/19/2024 Patient Outreach [facility] [address] [place] [phone] Esmer Molina Recovery Supports 11/16/[address] [address] Neha Mondragon, LUCIUS Appointment Request 11/15/2024 Orders Only [facility] [address] [place] [phone] Tyesha Houston MD Type 2 diabetes mellitus with hyperglycemia, with long-term current use of insulin ([facility]) (Primary Dx); Hypertension, unspecified type; Multiple sclerosis (CMS/[facility]); Type 2 diabetes mellitus with hyperglycemia (CMS/[facility]); Type 2 diabetes mellitus with hyperglycemia, with long-term current use of insulin (CMS/[facility]) 11/04/2024 Patient Outreach [address] [address] Tyesha Houston MD Care Coordination (C3 -[facility] telephone call outreach) 11/04/2024 Patient Outreach [address] [address] Tyesha Houston MD Transition Of Care (Tcm) 10/31/2024 Patient Outreach [address] [address] Tyesha Houston MD Care Coordination (C3 -[facility] telephone call outreach) 10/31/2024 Patient Outreach [address] [address] Tyesha Houston MD Care Coordination (C3 -[facility] telephone call outreach) 10/29/2024 [facility] Information Management [address] [place] [phone] Jhony Berger MD 10/23/2024 Patient Outreach [address] [address] Tyesha Houston MD Care Coordination (C3 [facility] telephone call outreach/) 10/23/2024 Patient Outreach [address] [address] Tyesha Houston MD 10/23/[address] [address] Tyesha Houston MD Care Management (C3- chart review) from Last 3 Months Immunizations Name Administration [...] 03/04/2022 Pneumococcal Conjugate PCV 13 05/18/2016 Pneumococcal Conjugate PCV 20 01/14/2025 Pneumococcal Polysaccharide PPSV23 05/18/2016, TD (adult), 2 [...] 9.6 oz) 01/14/2025 10:59 AM EDT Height 157.5 cm (5' 2 ) 08/20/2024 8:47 AM EST Body Mass Index 29.74 08/20/2024 8:47 AM EST Plan of Treatment Upcoming Encounters Date Type Department Care Team (Late st Contact Info) Description 03/04/2025 1:30 PM EDT Office Visit [facility] [address] [place] [address] Raf, Katharine, OD [address] [place] [address] 04/25/2025 10:15 AM EDT Office Visit [facility] [address] [place] [address] Pieter Alcantar MD [address] [place], [place] [phone] Health Maintenance Due Date Last Done Comments CT Colonography 1972 Colonoscopy 1972 Colorectal Cancer Screening 1972 FIT DNA/Cologuard 1972 FIT 1972 FOBT 1972 Sigmoidoscopy 1972 Eye Exam 1982 Family Planning (PISQ) 12/22/1987 Pap Smear 1993 Mammogram 07/24/2022 07/24/2020, 07/12, 07/24/2020, Additional history exists Zoster Vaccines (1 of 2) 2022 COVID-19 Vaccine ( season) 2024 10/28/2022, 03/04/2022, 03/04/2022, Additional history exists Influenza Vaccine (#1) 2024 , 07/23/2021, 07/23/2021, Additional history exists Diabetes: Urine Protein Screening 08/08/2024 08/08/2023, 04/04/2022, 08/27/2021, Additional history exists Lipid Panel 08/08/2024 08/08/2023, 03/12, 03/04/2022, Additional history exists Diabetes: Hemoglobin A1C 04/16/2025 025, 08/20/2024, 08/08/2023, Additional history exists Diabetes: Foot Exam 08/20/2025 08/20/2024, 08/20/2024, 08/20/2024, Additional history exists Cervical Cancer Screening 08/25/2025 HPV/Cotest 08/25/2025 08/25/2020, 04/24/2019 Depression Screening 12/31/2025 12/31/2024, 01/01/20 Alcohol/Substance Use Screening 01/14/2026 01/14/2025 SDOH Screening 01/14/2026 01/14/2025 Tobacco Screening 01/14/2026 01/14/2025 DTaP/Tdap/Td Vaccines (4 - Td or Tdap) 06/08/2027 06/08/2017, 11/16/2016, 11/23/2015, Additional history exists RSV Patients and Patients Aged 60 years or older (1 - 1-dose 75+ series) 12/22/2047 Hepatitis B Vaccines Completed 04/24/2019, 12/04/2018, 09/21/2018, Additional history exists HIV Screening Completed 08/20/2024, 02/10, 08/27/2021 Hepatitis C Screening Completed 08/20/2024 , 03/04/2022, 08/27/2021 Pneumococcal Vaccine: 50+ Years Completed 01/14/2025, 05/18/2016, 05/18/2016, Additional history exists HIB Vaccines Aged Out No longer eligi [...] use of insulin ([facility]) POCT GLUCOSE Routine 01/14/2025 10:53 AM EDT Type 2 diabetes mellitus with hyperglycemia, with long-term current use of insulin ([facility]) POCT URINALYSIS DIPSTICK Routine 11/19/2024 11:13 AM EDT Flank pain CT ABDOMEN PELVIS WO CONTRAST Routine 10/25/2024 9:20 AM EST HEPATITIS C AB W/REFL TO HCV RNA, QN, PCR Routine 08/20/2024 3:16 PM EST Vaginal discharge Routine screening for STI (sexually transmitted infection) HIV 1/2 ANTIGEN/ANTIBODY, FOURTH GENERATION W/RFL Routine 08/20/2024 3:16 PM EST Vaginal discharge Routine screening for STI (sexually transmitted infection) ALBUMIN, RANDOM URINE W/CREATININE Routine 08/08/2023 2:21 PM EST Type 2 diabetes mellitus with hyperglycemia, with long-term current use of insulin (CMS/HCC) LIPID PANEL WITH REFLEX TO DIRECT LDL Routine 08/08/2023 2:18 PM EST Type 2 diabetes mellitus with hyperglycemia, with long-term current use of insulin (CMS/[facility]) ZZZ HISTORICAL HPV E6/E7 RFLX VENU 16 18/45 Routine 08/25/2020 11:45 AM EST MAMMOGRAM GENERIC Routine 07/24/2020 10: 40 AM EST from Last 3 Months or Most Recently Relevant to Health Maintenance Results * (ABNORMAL) POCT glycosylated hemoglobin (Hgb A1c) (01/14/2025 10:57 AM EDT) Hemoglobin A1C 12.6(A) 4.0 - 6.0 % QC Media Lot # [id number] Lot# Expiration Date [id number] Blood Capillary blood specimen / Unknown 01/14/2025 10:57 AM EDT Tyesha Houston MD POINT OF CARE TEST ENTER/EDIT OR DERABLES Final Result * POCT glucose manually resulted (01/14/2025 10:53 AM EDT) Glucose Blood, POC 191 60 - 200 mg/dL QC Media Lot # [id number] Lot# Expiration Date [id number] Blood Capillary blood specimen / Unknown 01/14/2025 10:53 AM EDT Tyesha Houston MD POINT OF CARE TEST ENTER/EDIT OR DERABLES Final Result * POCT urinalysis dipstick manually resulted (11/19/2024 [...] Detected Urine 11/19/2024 11:1 3 AM EDT Result [facility] Henry Choi MD POINT OF CARE TEST ENTER/EDIT OR DERABLES Final Result * CT Abdomen Pelvis w/o Contrast (10/25/2024 9:20 AM EST) Anatomical Region Laterality Modality Body, Pelvis, Abdomen Computed T omography Result [facility] Historical Provider IMG CT PROCEDURES Final R esult * Hepatitis C Antibody with Reflex to HCV, RNA, Quantitative, Real-Time PCR (08/20/2024 3:16 PM EST) Hepatitis C Antibody Nonreactive Nonreactive [facility] Comment:Antibodies to HCV no t detected; does not exclude early acuteHCV infection. Blood Venous blood specimen / Unknown 08/20/2024 3:16 PM EST 08/20/2024 4:00 PM EST Umer Montes De Oca MD LAB BLOOD ORDERABLES Final Resul t [facility] [address] [place] [phone] * HIV-1/2 Antigen and Antibodies, Fourth Generation, with Reflexes (08/20/2024 3:16 PM EST) HIV AB/AG Nonreactive Nonreactive [facility] Comment:HIV-1 p24 Ag and/or HIV-1/HIV-2 Ab not detected.A test result that is nonreactive does not exclude thepossibility of exposure to or infection with HIV-1 and/orHIV-2. Nonreactive results in this assay for individualswith prior exposure to HIV-1 and/or HIV-2 may be due toantigen and antibody levels that are below the limit ofdetection of this assay.The [employer] HIV Ag/Ab Combo assay result andsupplemental assay [...] ORDERABLES Final Resul t Performing Organization Address City/[facility]/ZIP Co de Phone Number [facility] [address] [place], [place] [phone] * Albumin, Random Urine W/Creatinine (08/08/2023 2:21 PM EST) Creatinine, Urine 89.39 mg/dL [facility] Microalbumin Urine 17.0 mg/L [facility] Microalbum Creatinine Ratio Ur 19.0 <30 ug/mg cr [facility] Comment:Albumin/Creatinine R atio Reference Ranges: Normal: < 30 ug/mg creatinine Microalbuminuria: 30 - 300 ug/mg creatinineClinical Albuminuria: > 300 ug/mg creatinine Urine 08/08/2023 2:21 PM EST 08/08/2023 3:47 PM EST us Tyesha Houston MD LAB URINE ORDERABLES Final Resul t [facility] [address] [place] [phone] * (ABNORMAL) Lipid Panel with Reflex to Direct LDL (08/08/2023 2:18 PM EST) Triglycerides 227(H) <150 mg/dL [facility] Comment:Desirable Triglyceri de: less than 150 mg/dLBorderline High Triglyceride 150-199 mg/dLHigh Triglyceride: 200-499 mg/dLVery High Triglyceride: greater than or equal to 5OO mg/dL Cholesterol 239(H) <200 mg/dL [facility] Comment:Desirable Cholestero l: less than 200 mg/dLBorderline High Cholesterol: 200-239 mg/dLHigh Cholesterol: greater than 239 mg/dL LDL Cholesterol Calculated 134(H) <100 mg/dL [facility] Comment:Desirable LDL: less than 100 mg/dLNear Optimal/Above Optimal LDL: 110- 129 mg/dLBorderline High LDL: 130-159 mg/dLHigh LDL: 160-189 mg/dLVery High LDL: greater than or equal to 190 mg/dL HDL Cholesterol 60 >40 mg/dL [facility] Comment:Desirable HDL: great er than 40 mg/dL Note: This HDL assay may give artificially low results in patients with liver disease. Blood 08/08/2023 2:18 PM EST 08/08/2023 3:47 PM EST Tyesha Houston MD LAB BLOOD ORDERABLES Final Resul t [facility] [address] [place] [phone] * HPV E6/E7 RFLX VENU 16 18/45 (08/25/2020 11:45 AM EST) HPV mRNA E6/E7 rflx Not Detected Not Detected [facility] Comment: This test was performed using the APTIMA HPV Assay ([employer] This assay detects E6/E7 viral messenger RNA (mRNA) from 14 high-risk HPV types (16,18,31,33,35,39,45,51,52,56,58,59,66,68). The analytical performance characteristics of this assay have been determined by [employer]. The modifications have not been cleared or approved by the FDA. This assay has been validated pursuant to the CLIA regulations and is used for clinical purposes. THIS TEST WAS PERFORMED AT: [facility] [address] [place], [place] ??[phone] ALDA NIXON MD 08/25/2020 11:4 5 AM EST us Sarina Ann HISTORICAL/NON ORDERABLE LABS Fi nal Result [facility] [address] [place] [address] * Mammography Report 1 (07/24/2020 10:40 AM EST) Anatomical Region Laterality Modality Breast Bilateral Mammography 07/24/2020 10:4 0 AM EST Narrative 08/24/2020 12:06 PM EST Refer to the Notes tab for result details [facility] Procedure: Mammography Report 1 Procedure Note ProviderJhony MD - 12/03/2022 Refer to the Notes tab for result details [facility] Procedure: Mammography Report 1 Tyesha Houston MD IMG BI PROCEDURES Final Result from Last 3 Months or Most Recently Relevant to Health Maintenance Insurance [facility] [employer] C3 Care Teams Public Welfare Worker Relationship Specialty Start Date End Date Tyesha Houston MD [address] [place] [id number] PCP - General Family Medicine 04/25/19
--- OUTSIDE RECORDS SUMMARY | 2025-01-14 13:29 | XMS_ITS | Encounter Summary ---
Author Organization [facility] Address [address] [place] [address] Care Team Providers Care Nursing Home Aide Name Role Phone Imelda Camarillo DO Primary Care Pro vider Unavailable Casandra Duong MD Primary Care Provider Barrie Frederick, Pcp Primary Care Provider Pilar Gustafson MD Primary Care Provider Donna Brown MD Primary Care Provider Tyesha Cheatham Primary Care Provider Martinez hunter Encounter Details Date Type Department Care Team Description 06/07/2015 [facility] Medical Records [address] [place] [phone] [facility] Social History Tobacco Use Types [...] on filedocumented in this encounter Care Teams Nursing Home Aide Relationship Specialty Start Date End Date Imelda [...]
--- OUTSIDE RECORDS SUMMARY | 2025-01-14 13:29 | XMS_ITS | Encounter Summary ---
Author Organization [facility] Address [address] [place] [address] Care Team Providers Care Bar Steward Name Role Phone Imelda Camarillo DO Primary Care Pro vider Unavailable Casandra Duong MD Primary Care Provider Unavaila wendy Frederick, Pcp Primary Care Provider UnavailPilar Reed MD Primary Care Provider Unavail Donna Wadsworth MD Primary Care Provider Tyesha Cheatham Primary Care Provider Martinez e Reason for Visit * Reason Onset Date Comments Prior Authorization 04/24/2015 Encounter Details Date Type Department Care Team Description 04/24/2015 Telephone Adult [address] [address] Imelda Camarillo DO Prior Authorization Social History Tobacco Use Types Packs/Day Years Used Date Smoking Tobacco: Every Day Cigarettes 0.3 Alcohol Use Standard Drinks/Week Comments Yes 0 (1 standard drink = 0.6 oz pur e alcohol) 3 drinks per mo Sex Assigned at Date Recorded Not on file documented as of this encounter Miscellaneous Notes * Telephone Encounter - Vasyl Manzo MD - 05/12/2015 11:06 AM EDT Noted. * Telephone Encounter - Erica Samuels L.PKimmieNKimmie - 05/12/2015 10:46 AM EDT Prior Auth APPROVED to . Pt informed. She will tyr this med for a week as instructed by Dr Manzo then call him w/ an update./dg * Telephone Encounter - Erica AlmontePKimmieNKimmie - 05/05/2015 4:15 PM EDT New Prior Auth form filled out & signed. Faxed to algrano @ [phone] * Telephone Encounter - Erica AlmontePSteve - 05/05/2015 1:39 PM EDT Her Prior Auth was done & sent in. However it was returned this AM stating she no longer has this ins. I found she now iserra Medicare. New form was filled out & is on Dr Arriaza desk waitingfor a signature. * Telephone Encounter - Gypsy Ryder - 05/05/2015 12:43 PM EDT Was this Prior Auth Completed? Pt calling today for update * Telephone Encounter - Sherry Phan - 05/01/2015 12:04 PM EDT Above selected prescription needs prior authorization. Thank you. * Telephone Encounter - Komal Barry - 04/24/2015 12:00 PM EDT Patient was prescribed Lubiprostone. Insurance does not cover. Patient needs a prior authorization. documented in this encounter Plan of Treatment Not on file documented as of this encounter Visit Diagnoses Diagnosis Constipation, unspecified constipation type- Primary documented in this encounter Care Teams Bar Steward Relationship Specialty Start Date End Date Imelda Camarillo DO PCP - General Internal Medicine 12/26/14 08/30/15 Casandra Duong MD PCP - General Internal Medicine 08/31/15 01/07/16 [facility] Pcp PCP - General Internal Medicine 01/08/16 09/14/16 Pilar Coombs MD PCP - General Internal Medicine 09/15/16 01/07/19 Donna Donis MD PCP - General Internal Medicine 01/08/19 12/01/21 Tyesha Rogers PCP - General Family Practice 12/02/21 documented as of this encounter
--- OUTSIDE RECORDS SUMMARY | 2025-01-14 13:29 | XMS_ITS | Encounter Summary ---
Author Organization [facility] Address [address] [place] [address] Care Team Providers Care Clearing Hand Name Role Phone Pcp, No Primary Care Provider Unavailabl e Encounter Details Date Type Department Care Team (Late st Contact Info) Description 05/26/2021 Scanned Document [facility] Neurology, Scan Social History Tobacco [...] on filedocumented in this encounter Care Teams Clearing Hand Relationship Specialty Start Date End Date Pcp, No PCP - General General Medicine 05/13/21 documented as of this encounter
[2025-01-14 13:51] LABS: Basophils Absolute Auto 0.1 X10*3/uL (0.0-0.2); Basophils Percent Auto 0.9 % (0-2); Eosinophils Absolute Auto 0.2 X10*3/uL (0.0-0.4); Eosinophils Percent Auto 3.6 % (0-4); Hematocrit 40.1 % (37.0-47.0); Imm Gran Abs Auto 0.03 X10*3/uL (0.00-0.03); Imm Gran Pct Auto 0.5 % (0.0-0.4); Lymphocytes Absolute Auto 1.8 X10*3/uL (1.2-4.9); Lymphocytes Percent Auto 28.7 % (20-40); Mean Corpuscular HGB Conc 34.9 g/dl (31.0-35.0); Mean Corpuscular Hemoglobin 28.8 pg (27.0-33.0); Mean Corpuscular Volume 82.5 fL (80.0-98.0); Monocytes Absolute Auto 0.4 X10*3/uL (0.1-1.2); Monocytes Percent Auto 5.9 % (2-11); Neutrophils Absolute Auto 3.9 x10*3/uL (2.0-8.3); Neutrophils Percent Auto 60.4 % (45-73); Platelet Count 227 X10*3/uL (160-400); Red Blood Count 4.86 X10*6/uL (4.20-5.50); Red Cell Distribution Width 12.6 % (11.0-16.0); White Blood Count 6.4 X10*3/uL (4.8-10.8)
[2025-01-14 14:36] LABS: Folate 11.1 ng/mL (> or = 4.0); Vitamin B12 539 pg/mL (200-900)
[2025-01-14 14:37] LABS: Creatinine Urine 158.99 mg/dL; Microalbum/Creatinine Ratio Ur 41.5 ug/mg cr (<30)
[2025-01-14 14:42] LABS: CT PCR NOT DETECTED (Not Detect.); NG PCR NOT DETECTED (Not Detect.)
[2025-01-14 16:11] LABS: Erythrocyte Sedimentation Rate 3 MM/HR (0-20)
[2025-01-14 19:10] LABS: Alanine Aminotransferase 25 U/L (0-31); Albumin Level 3.9 g/dL (3.5-5.0); Alkaline Phosphatase 91 U/L (39-117); Anion Gap 14 (12-20); Aspartate Amino Transferase 19 U/L (5-31); Bilirubin Total 0.3 mg/dL (0.0-1.0); Blood Urea Nitrogen 16 mg/dL (9-16); Carbon Dioxide 25 mmol/L (22-29); Chloride 105 mmol/L (96-108); Cholesterol 226 mg/dL (<200); Estimated Glomerular Filt Rate > 60; Glucose Random 158 mg/dL (60-115); HDL Cholesterol 84 mg/dL (>40); LDL Cholesterol Calculated 116 mg/dL (<100); Potassium 4.2 mmol/L (3.3-5.1); Sodium 140 mmol/L (135-145); TSH reflex Free T4 3.01 uIU/mL (0.32-4.0); Total Protein 6.9 g/dL (6.5-8.0); Triglycerides 133 mg/dL (<150)
[2025-01-14 20:03] LABS: Uric Acid 3.3 mg/dL (2.4-5.7)
[2025-01-14 20:37] LABS: Reflex LDLD? No
[2025-01-15 04:27] LABS: Syphilis Screen Reactive (Nonreactive)
[2025-01-15 04:50] LABS: HBS Num1 0.73 mIU/mL (0-7.99); HBc Num1 0.14 S/CO (0.00-0.79); HBsAGNum1 0.24 S/CO (0.00-0.99); HIV AB/AG Nonreactive (Nonreactive); HIV Num 1 0.06 S/CO (0.00-0.99); Hepatitis B Core Antibody Nonreactive (Nonreactive); Hepatitis B Surface Antigen Negative (Negative); ~HepC Num1 0.18 S/CO (0.00-0.79); ~Hepatitis B Surface Antibody NONREACTIVE (Nonreactive); ~Hepatitis C Antibody Nonreactive (Nonreactive)
[2025-01-16 03:58] LABS: Hepatitis A Antibody IgG Nonreactive (Nonreactive); ~Hepatitis A Antibody IgG 0.75 S/CO (0.00-0.99)
[2025-01-19 14:27] LABS: RPR Quantitative Non-Reactive (Nonreactive); T.Pallidum Particle Agg Test Reactive (Nonreactive)
== END 2025-01-14 11:54 | disposition home or self-care (01) ==
LOC: HO.HHCL 11:53
PROVIDERS: Visit Provider Family Medicine
DX: M79.675 Pain in left toe(s) (principal); G89.29 Other chronic pain; R00.2 Palpitations; I10 Essential (primary) hypertension; E78.5 Hyperlipidemia, unspecified; Z79.4 Long term (current) use of insulin; E11.65 Type 2 diabetes mellitus with hyperglycemia; Z11.3 Encounter for screening for infections with a predominantly sexual mode of transmission
CPT/HCPCS: 36415; 80053; 80061; 82043; 82570; 82607; 82746; 84443; 84550; 85025; 85652; 86140; 86592; 86704; 86706; 86708; 86780; 86803; 87340; 87389; 87491; 87591

== ENCOUNTER 2025-02-26 16:37 | Outpatient (REF) | payer MEDICAID, SELFPAY ==
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
[2025-02-26 18:41] LABS: Bacterial Vaginosis PCR NEGATIVE (Negative); Candida Group PCR NOT DETECTED (Not Detect); Candida glab krusei PCR NOT DETECTED (Not Detect); Trichomonas vaginalis PCR DETECTED (Not Detect)
[2025-02-26 21:22] LABS: CT PCR NOT DETECTED (Not Detect.); NG PCR NOT DETECTED (Not Detect.)
== END 2025-02-26 16:38 | disposition home or self-care (01) ==
LOC: HO.HHCLNP 16:37
PROVIDERS: Visit Provider Nurse Practitioner Family
DX: N89.8 Other specified noninflammatory disorders of vagina (principal); Z11.3 Encounter for screening for infections with a predominantly sexual mode of transmission
CPT/HCPCS: 81515; 87491; 87591

== ENCOUNTER 2025-04-21 16:19 | Emergency (ER) | payer MEDICAID, SELFPAY ==
--- NOTE | ~2025-04-21 | XR_ITS ---
CLINICAL HISTORY: pain, injury 3 view right ankle Comparison: None provided Findings: No acute fractures. Ankle mortise intact. No significant arthritic change or erosions. No radiopaque foreign body. Mildly diffuse soft tissue swelling. Calcaneal spurring. IMPRESSION: 1. No acute fracture. This document has been electronically signed by: Jalen Mayberry MD on 04/21/2025 18:54:32
--- NOTE | ~2025-04-21 | CT_ITS ---
CLINICAL HISTORY: fall, pain CT head without contrast Comparison: Head CT 07/20/2024 Findings: No intra-axial mass, midline shift, hydrocephalus, or acute hemorrhage. No significant atrophy-like change or white matter disease. Mucosal thickening throughout the paranasal sinuses. The orbits are unremarkable. No skull fracture. IMPRESSION: 1. No acute intracranial findings. This document has been electronically signed by: Jalen Mayberry MD on 04/21/2025 18:38:46
--- NOTE | ~2025-04-21 | CT_ITS ---
CLINICAL HISTORY: fall, pain CT cervical spine without contrast Comparison: None provided Findings: Reversal of the cervical lordosis. Osteopenia. Multilevel spondylosis with osteophytosis, uncovertebral hypertrophy, facet arthropathy and degenerative disc disease. Anterior cervical discectomy and fusion changes noted at C3-C4, with posterior decompression and fusion noted at C4-C7. Prominent posterior disc osteophyte complex noted at C6-C7. Diffuse spinal canal narrowing, for example [id number] at C4-C5 with severe left and moderate to severe right bilateral foraminal stenoses. No acute fractures or dislocations. Scattered prominent lymph nodes throughout the neck, may be reactive however are nonspecific. Lung apices are clear. IMPRESSION: No acute findings. Additional findings as described. This document has been electronically signed by: Jalen Mayberry MD on 04/21/2025 18:42:04
--- NOTE | ~2025-04-21 | XR_ITS ---
CLINICAL HISTORY: fall,pain 4 view, chest and left ribs Comparison: CR/SR - XR CHEST 1 VIEW - 06/26/24 12:10 EDT Findings: Bones intact. No dislocations. The visualized lungs are normal. IMPRESSION: No acute rib fractures. This document has been electronically signed by: Jalen Mayberry MD on 04/21/2025 19:31:01
--- NOTE | ~2025-04-21 | XR_ITS ---
CLINICAL HISTORY: pain, injury 3 view, pelvis and right hip Comparison: None provided Findings: No acute fracture or dislocation. No significant arthritic change. The soft tissues are unremarkable. IMPRESSION: No acute findings. This document has been electronically signed by: Jalen Mayberry MD on 04/21/2025 18:54:05
[2025-04-21 16:33] VITALS: BP 178/77; PULSE 78; RESP 16; TEMP 36.1; O2SAT 96; BMI 29.4
--- NOTE | 2025-04-21 18:18 | ED.FALL ---
HPI - Fall General Chief Complaint: Fall Stated Complaint: Fall + thinners Time Seen by Provider: 04/21/25 18:15 Source: patient Mode of arrival: ambulatory Limitations: no limitations History of Present Illness ED Provider: HPI Narrative: Patient with history of multiple sclerosis with difficulty in walking and balance problems been falling multiple times today while she walking her legs gave out and she fell on the left side complaining of pain in the left ribs and no loss of consciousness no significant head injury Related Data Home Medications ?Medication ?Instructions ?Recorded ?Confirmed apixaban 5 mg tablet (Eliquis) 5 mg PO BID 08/25/20 04/22/25 atorvastatin 40 mg tablet 1 tab PO DAILY 06/07/22 04/22/25 losartan 100 mg tablet 100 mg PO DAILY 06/07/22 04/22/25 metformin 500 mg tablet,extended 1,000 mg PO BID 05/11/23 04/22/25 release 24 hr amlodipine 2.5 mg tablet 10 mg PO DAILY 05/28/24 04/22/25 insulin lispro 100 unit/mL 8 - 16 sliding scale dose subcut 05/28/24 04/22/25 subcutaneous pen TIDAC levothyroxine 25 mcg tablet 25 mcg PO DAILY@0600 05/28/24 07/17/24 famotidine 10 mg tablet 10 mg PO BID 06/13/24 04/22/25 acetaminophen 500 mg tablet 1,000 mg PO Q8H PRN moderate pain 04/22/25 04/22/25 atomoxetine 18 mg capsule 18 mg PO QAM 04/22/25 04/22/25 bisacodyl 5 mg tablet,delayed 5 mg PO DAILY PRN constipation 04/22/25 04/22/25 release clonidine HCl 0.1 mg tablet 0.1 mg PO TID PRN Anxiety 04/22/25 04/22/25 doxepin 25 mg capsule 25 mg PO BEDTIME PRN Insomnia 04/22/25 04/22/25 fluconazole 150 mg tablet 150 mg PO WE 04/22/25 04/22/25 insulin degludec 100 unit/mL (3 26 unit subcut DAILY 04/22/25 04/22/25 mL) subcutaneous pen (Tresiba FlexTouch U-100 insulin) methocarbamol 750 mg tablet 750 - 1,500 mg PO TID PRN muscle 04/22/25 04/22/25 spasm prazosin 1 mg capsule 1 mg PO BEDTIME 04/22/25 04/22/25 sertraline 25 mg tablet 25 mg PO QAM 04/22/25 04/22/25 Previous Rx's ?Medication ?Instructions ?Recorded albuterol sulfate 90 mcg/actuation 2 puff inhalation RQ4H PRN 07/25/22 aerosol inhaler (Ventolin HFA) wheezing #0 grams epinephrine 0.3 mg/0.3 mL 0.3 mg (0.3 mL) IM Q10M PRN 12/10/24 injection, auto-injector anaphylaxis #2 ea Allergies Allergy/AdvReac Type Severity Reaction Status Date / Time Iodinated Contrast Media (IV Allergy Severe THROAT Verified 04/21/25 16:44 CONTRAST) CLOSING lithium (LITHIUM) Allergy Intermediate AGGRESSION, Verified 04/21/25 16:44 stiffened up & throat closing (moderate to severe) fluoxetine (FLUOXETINE) Allergy Mild ITCHING, Verified 04/21/25 16:44 Suicidal risperidone (From RISPERDAL) Allergy Mild ITCHING Verified 04/21/25 16:44 asparagus (ASPARAGUS) Allergy Unknown unknown Verified 04/21/25 16:44 divalproex sodium (From Allergy Unknown UNKNOWN, Verified 04/21/25 16:44 DEPAKOTE) stiffened up, locked jaw lisinopril (LISINOPRIL) Allergy Unknown COUGH Verified 04/21/25 16:44 olanzapine Allergy Unknown can't Verified 04/21/25 16:44 recall if hives or increased pollen extracts (POLLEN) Allergy Unknown unknown Verified 04/21/25 16:44 tomato (TOMATO) Allergy Unknown UNKNOWN Verified 04/21/25 16:44 quetiapine (From SEROQUEL) AdvReac Intermediate OVERSEDATIO Verified 04/21/25 16:44 N BROCCOLI Allergy Unknown Unknown Uncoded 04/21/25 16:44 FUMARATE Allergy Unknown Unknown Uncoded 04/21/25 16:44 GREEN CHEUNG Allergy Unknown Unknown Uncoded 04/21/25 16:44 TOMATO Allergy Unknown Unknown Uncoded 04/21/25 16:44 Review of Systems Review of Systems: Yes all other systems are reviewed and are negative PMFSH Past Medical History Medical History Multiple sclerosis exacerbation Excoriation (skin-picking) disorder Back pain GERD (gastroesophageal reflux disease) Peripheral neuropathy PTSD (post-traumatic stress disorder) Mood disorder Elevated cholesterol Fibromyalgia Chronic back pain DDD (degenerative disc disease) Ovarian cyst Kidney stone Normal colonoscopy Lesion of bladder Suicide attempt Depression IBS (irritable bowel syndrome) Obesity (BMI 30-39.9) Endometriosis History of pulmonary embolus (PE) History of DVT (deep vein thrombosis) Diabetes mellitus Asthma HTN (hypertension) Anxiety Multiple sclerosis Surgical History History of lithotripsy History of cystoscopy S/P endometrial ablation H/O neck surgery Hx of dilation and curettage Hx of tubal ligation Hx of appendectomy Hx of cholecystectomy Family History Family History Mother Rheumatoid arteritis COPD (chronic obstructive pulmonary disease) Father HTN (hypertension) Diabetes mellitus Social History Social History Household Members: None Housing: Apartment Do you presently have visiting nurse or other home services: No Alcohol intake: current Alcohol intake frequency: holidays/special occasions only Comment: on 5 min checks for safety after episode today Patient Tobacco Use Status: Current everyday Tobacco user Tobacco use type: Cigarette Cigarette Packs Per Day: 1 Cigarettes Per Day: 20.0 Years Smoked: 39 e-Cigarette/Vaping Use: Currently Using Second Hand Smoke Exposure: No Substance Use Type: Crack/Cocaine Advance Directives: Yes Advance Directives on File: Yes Advance Directives Date on File: 05/18/23 Do you have a plan to hurt others: No Plan service: No Sexual orientation: Straight/Heterosexual Gender identity: Female Physical Exam Vital Signs: Vital Signs: Last Vital Signs Temp 97.6 F 04/23/25 11:27 Pulse 76 04/23/25 11:27 Resp 18 04/23/25 11:27 BP 146/73 H 04/23/25 11:51 Pulse Ox 99 04/23/25 11:27 O2 Del Method Room Air 04/23/25 11:27 BMI result Body Mass Index 29.4 Appearance: Alert. Oriented X3. No acute distress. Eyes: PERRLA, No Nystagmus ENT: Pharynx normal. Oral Mucosa moist Neck: Normal inspection. Neck supple. No midline tenderness CVS: Normal heart rate and rhythm. Pulses normal. Respiratory: No respiratory distress. Equal air entry bilateral, no wheezing/rales/rhonchi tenderness left lower ribs no crepitus Abdomen: Soft and nontender. Bowel sounds are present, no mass palpable, no CVA tenderness Skin: Skin warm and dry. Normal skin color. Normal skin turgor. Extremities: No lower extremity edema. No calf tenderness Neuro: Oriented X 3. No motor deficit. No sensory deficit.No cerebellar signs , cranial nerves II-XII intact Course Course Course Narrative: Time: 11:08 Date: 04/22/25 Provider: Tracee Tanner, DO Patient in physician observation for case management needs. No acute events reported overnight.? No current issues or complaints. VS stable. pending PT/CM eval. Will continue to monitor. Halima Fragoso MD 04/22/25, 1946 At 19:45, I was informed by the patient's nurse that the patient is reporting an allergic reaction, itching all over and hives. At bedside, I assessed the patient, patient does have hives, no airway compromise, no edema, no wheezing. Patient states that she is known to be allergic to broccoli and her foot today had a site of broccoli. Patient states that she did not eat it but seems that being besides the food that she ate was enough to make her have an allergic reaction. Patient getting IV Solu-Medrol, Pepcid, Benadryl Reevaluation(s) Reevaluation #1: Plan is for STR at [facility]. No hospital admission required Time: 09:29 Reevaluation #2: Time: 09:29 Date: 04/23/25 Provider: Tea Kowalski PA-C Patient in physician observation for case management needs. No acute events reported overnight.? No current issues or complaints. VS stable. Tylenol prn pain orders placed. Patient is pending placement at facility pending health inusrance authorization. Code status updated to full. Will continue to monitor. Time: 09:57 Date: 04/23/25 Provider: Tea Kowalski PA-C Physician observation ended at 12 pm. Patient has been cleared for discharge by the CARE team. Patient to be placed at a rehab facility [facility]. Medications Administered Discontinued Medications Generic Name Dose Route Start Last Admin Trade Name Freq PRN Reason Stop Dose Admin Acetaminophen 975 mg 08/11/25 23:17 04/21/25 23:21 Acetaminophen 325 Mg Tablet PO 04/21/25 23:18 975 mg ONCE ONE Administration Acetaminophen 650 mg 04/22/25 08:03 04/22/25 08:07 Acetaminophen 325 Mg Tablet PO 04/22/25 08:04 650 mg ONCE ONE Administration Acetaminophen 650 mg 04/23/25 09:46 04/23/25 09:50 Acetaminophen 325 Mg Tablet PO 650 mg Q6H PRN Administration mild pain, fever, headache Amlodipine Besylate 10 mg 04/21/25 22:39 04/21/25 22:49 Amlodipine Besylate 10 Mg Tablet PO 04/21/25 22:40 10 mg ONCE ONE Administration Protocol Amlodipine Besylate 10 mg 04/22/25 09:00 04/23/25 07:25 Amlodipine Besylate 10 Mg Tablet PO 10 mg DAILY ISI Administration Protocol Apixaban 5 mg 04/22/25 09:00 04/23/25 07:26 Apixaban 5 Mg Tablet PO 5 mg BID ISI Administration Atorvastatin Calcium 40 mg 04/22/25 09:00 04/23/25 07:26 Atorvastatin Calcium 40 Mg Tablet PO 40 mg DAILY ISI Administration Clonidine HCl 0.1 mg 04/21/25 22:39 04/21/25 22:47 Clonidine Hcl 0.1 Mg Tablet PO 04/21/25 22:40 0.1 mg ONCE ONE Administration Protocol Diphenhydramine HCl 50 mg 04/22/25 19:41 04/22/25 20:15 Diphenhydramine Hcl 25 Mg Capsule PO 04/22/25 19:42 Not Given ONCE ONE Diphenhydramine HCl 50 mg 04/22/25 19:44 04/22/25 19:59 Diphenhydramine Hcl 50 Mg/Ml Vial IVPUSH 04/22/25 19:45 50 mg ONCE ONE Administration Famotidine 20 mg 04/22/25 19:44 04/22/25 19:59 Famotidine/Pf 20 Mg/2 Ml Vial IVPUSH 04/22/25 19:45 20 mg ONCE ONE Administration Insulin Glargine 26 unit 04/21/25 21:33 04/21/25 22:47 Insulin Glargine,Hum.Rec.Anlog 100 Unit/Ml 10 Ml Vial SUBCUT 04/21/25 21:34 26 unit ONCE ONE Administration Insulin Glargine 16 unit 04/22/25 09:00 04/23/25 07:23 Insulin Glargine,Hum.Rec.Anlog 100 Unit/Ml 10 Ml Vial SUBCUT 16 unit DAILY ISI Administration Insulin Human Lispro 10 unit 04/21/25 21:33 04/21/25 22:48 Insulin Lispro 100 Unit/Ml 3 Ml Vial SUBCUT 04/21/25 21:34 10 unit ONCE ONE Administration Insulin Human Lispro 0 unit 04/22/25 07:30 04/23/25 10:59 Insulin Lispro 100 Unit/Ml 3 Ml Vial SUBCUT 10 unit QIDACHS [facility] Administration Protocol Insulin Human Lispro 5 unit 04/22/25 22:49 04/22/25 22:57 Insulin Lispro 100 Unit/Ml 3 Ml Vial SUBCUT 04/22/25 22:50 5 unit ONCE ONE Administration Insulin Human Lispro 5 unit 04/23/25 02:44 04/23/25 03:46 Insulin Lispro 100 Unit/Ml 3 Ml Vial SUBCUT 04/23/25 02:45 5 unit ONCE ONE Administration Insulin Human Lispro 5 unit 04/23/25 11:30 04/23/25 11:34 Insulin Lispro 100 Unit/Ml 3 Ml Vial SUBCUT 04/23/25 11:31 5 unit ONCE ONE Administration Losartan Potassium 100 mg 04/21/25 22:39 04/21/25 22:47 Losartan Potassium 50 Mg Tablet PO 04/21/25 22:40 100 mg ONCE ONE Administration Protocol Losartan Potassium 100 mg 04/22/25 09:00 04/23/25 07:25 Losartan Potassium 50 Mg Tablet PO 100 mg DAILY [facility] Administration Protocol Metformin HCl 1,000 mg 04/22/25 09:00 04/23/25 07:26 Metformin Hcl Er 500 Mg Tab.Er.24h PO 1,000 mg BID [facility] Administration Methylprednisolone Sodium Succinate 125 mg 04/22/25 19:44 04/22/25 20:06 Methylprednisolone Sod Succ 125 Mg/2 Ml Vial IVPUSH 04/22/25 19:45 125 mg ONCE ONE Administration Oxycodone HCl 10 mg 04/21/25 18:42 04/21/25 18:55 Oxycodone Hcl Immed Release 5 Mg Tablet PO 04/21/25 18:43 10 mg ONCE ONE Administration Prazosin HCl 1 mg 04/22/25 03:30 04/22/25 20:14 Prazosin Hcl 1 Mg Capsule PO 1 mg BEDTIME ISI Administration Protocol Sertraline HCl 25 mg 04/22/25 09:00 04/23/25 07:26 Sertraline Hcl 25 Mg Tablet PO 25 mg DAILY ISI Administration Medical Decision Making Medical Decision Making [facility] Narrative: Patient with multiple sclerosis with poor balance control homeless for now does not have any cane to ambulate in the as the cause for multiple fall as patient does not have any place to live she requesting for [facility] will get case management Differential Diagnosis Differential Diagnoses: The differential diagnosis associated with the presentation includes Admission/Observation Consideration of admission/observation: Escalation of care including admission/observation considered Lab Data [facility] Lab Attestation statement: I reviewed the patient's lab results. 04/21/25 20:59 04/21/25 20:59 Labs: Lab Results 04/21/25 04/22/25 04/22/25 Range/Units 20:59 00:47 07:05 WBC 6.9 (4.8-10.8) X10*3/uL RBC 4.88 (4.20-5.50) X10*6/uL Hgb 14.2 (12.0-16.0) g/dl Hct 41.7 (37.0-47.0) % MCV 85.5 (80.0-98.0) fL MCH 29.1 (27.0-33.0) pg MCHC 34.1 (31.0-35.0) g/dl RDW 12.4 (11.0-16.0) % Plt Count 225 (160-400) X10*3/uL MPV 10.0 (9.4-12.3) fL Immature Gran % (Auto) 0.4 (0.0-0.4) % Neut % (Auto) 55.9 (45-73) % Lymph % (Auto) 31.2 (20-40) % [place] % (Auto) 6.6 (2-11) % Eos % (Auto) 4.9 H (0-4) % Baso % (Auto) 1.0 (0-2) % Lymph # (Auto) 2.2 (1.2-4.9) X10*3/uL [place] # (Auto) 0.5 (0.1-1.2) X10*3/uL Eos # (Auto) 0.3 (0.0-0.4) X10*3/uL Baso # (Auto) 0.1 (0.0-0.2) X10*3/uL Abs Immat Gran (auto) 0.03 (0.00-0.03) X10*3/uL Absolute Neuts (auto) 3.9 (2.0-8.3) x10*3/uL Absolute Nucleated RBC 0.000 (0.0-0.012) X10*3/uL Nucleated RBC % (auto) 0.0 (0.0-0.2) /100WBC Sodium 136 (135-145) mmol/L Potassium 3.9 (3.3-5.1) mmol/L Chloride 105 (96-108) mmol/L Carbon Dioxide 23 (22-29) mmol/L Anion Gap 12 (12-20) BUN 13 (9-16) mg/dL Creatinine 0.71 (0.5-1.4) mg/dL Estim Creat Clear Calc 86.7 Estimated GFR > 60 POC Glucose 298 H 239 H (60-115) mg/dL Random Glucose 418 H* (60-115) mg/dL Calcium 8.8 (8.4-10.2) mg/dL Total Bilirubin 0.1 (0.0-1.0) mg/dL AST 17 (5-31) U/L ALT 20 (0-31) U/L Alkaline Phosphatase 103 (39-117) U/L C-Reactive Protein 0.21 (< or = 0.50) mg/dL Total Protein 6.7 (6.5-8.0) g/dL Albumin 3.9 (3.5-5.0) g/dL Influenza Type A (PCR) (Negative) Influenza Type B (PCR) (Negative) RSV RNA Qual (PCR) (Negative) SARS-CoV-2 RNA (RT-PCR) (Negative) 04/22/25 04/22/25 04/22/25 Range/Units 08:43 12:19 17:49 WBC (4.8-10.8) X10*3/uL RBC (4.20-5.50) X10*6/uL Hgb (12.0-16.0) g/dl Hct (37.0-47.0) % MCV (80.0-98.0) fL MCH (27.0-33.0) pg MCHC (31.0-35.0) g/dl RDW (11.0-16.0) % Plt Count (160-400) X10*3/uL MPV (9.4-12.3) fL Immature Gran % (Auto) (0.0-0.4) % Neut % (Auto) (45-73) % Lymph % (Auto) (20-40) % [place] % (Auto) (2-11) % Eos % (Auto) (0-4) % Baso % (Auto) (0-2) % Lymph # (Auto) (1.2-4.9) X10*3/uL [place] # (Auto) (0.1-1.2) X10*3/uL Eos # (Auto) (0.0-0.4) X10*3/uL Baso # (Auto) (0.0-0.2) X10*3/uL Abs Immat Gran (auto) (0.00-0.03) X10*3/uL Absolute Neuts (auto) (2.0-8.3) x10*3/uL Absolute Nucleated RBC (0.0-0.012) X10*3/uL Nucleated RBC % (auto) (0.0-0.2) /100WBC Sodium (135-145) mmol/L Potassium (3.3-5.1) mmol/L Chloride (96-108) mmol/L Carbon Dioxide (22-29) mmol/L Anion Gap (12-20) BUN (9-16) mg/dL Creatinine (0.5-1.4) mg/dL Estim Creat Clear Calc Estimated GFR POC Glucose 200 H 155 H (60-115) mg/dL Random Glucose (60-115) mg/dL Calcium (8.4-10.2) mg/dL Total Bilirubin (0.0-1.0) mg/dL AST (5-31) U/L ALT (0-31) U/L Alkaline Phosphatase (39-117) U/L C-Reactive Protein (< or = 0.50) mg/dL Total Protein (6.5-8.0) g/dL Albumin (3.5-5.0) g/dL Influenza Type A (PCR) NEGATIVE (Negative) Influenza Type B (PCR) NEGATIVE (Negative) RSV RNA Qual (PCR) NEGATIVE (Negative) SARS-CoV-2 RNA (RT-PCR) NEGATIVE (Negative) 04/22/25 04/22/25 04/23/25 Range/Units 19:56 22:36 02:27 WBC (4.8-10.8) X10*3/uL RBC (4.20-5.50) X10*6/uL Hgb (12.0-16.0) g/dl Hct (37.0-47.0) % MCV (80.0-98.0) fL MCH (27.0-33.0) pg MCHC (31.0-35.0) g/dl RDW (11.0-16.0) % Plt Count (160-400) X10*3/uL MPV (9.4-12.3) fL Immature Gran % (Auto) (0.0-0.4) % Neut % (Auto) (45-73) % Lymph % (Auto) (20-40) % [place] % (Auto) (2-11) % Eos % (Auto) (0-4) % Baso % (Auto) (0-2) % Lymph # (Auto) (1.2-4.9) X10*3/uL [place] # (Auto) (0.1-1.2) X10*3/uL Eos # (Auto) (0.0-0.4) X10*3/uL Baso # (Auto) (0.0-0.2) X10*3/uL Abs Immat Gran (auto) (0.00-0.03) X10*3/uL Absolute Neuts (auto) (2.0-8.3) x10*3/uL Absolute Nucleated RBC (0.0-0.012) X10*3/uL Nucleated RBC % (auto) (0.0-0.2) /100WBC Sodium (135-145) mmol/L Potassium (3.3-5.1) mmol/L Chloride (96-108) mmol/L Carbon Dioxide (22-29) mmol/L Anion Gap (12-20) BUN (9-16) mg/dL Creatinine (0.5-1.4) mg/dL Estim Creat Clear Calc Estimated GFR POC Glucose 215 H 328 H 382 H* (60-115) mg/dL Random Glucose (60-115) mg/dL Calcium (8.4-10.2) mg/dL Total Bilirubin (0.0-1.0) mg/dL AST (5-31) U/L ALT (0-31) U/L Alkaline Phosphatase (39-117) U/L C-Reactive Protein (< or = 0.50) mg/dL Total Protein (6.5-8.0) g/dL Albumin (3.5-5.0) g/dL Influenza Type A (PCR) (Negative) Influenza Type B (PCR) (Negative) RSV RNA Qual (PCR) (Negative) SARS-CoV-2 RNA (RT-PCR) (Negative) 04/23/25 04/23/25 04/23/25 Range/Units 06:35 07:39 10:52 WBC (4.8-10.8) X10*3/uL RBC (4.20-5.50) X10*6/uL Hgb (12.0-16.0) g/dl Hct (37.0-47.0) % MCV (80.0-98.0) fL MCH (27.0-33.0) pg MCHC (31.0-35.0) g/dl RDW (11.0-16.0) % Plt Count (160-400) X10*3/uL MPV (9.4-12.3) fL Immature Gran % (Auto) (0.0-0.4) % Neut % (Auto) (45-73) % Lymph % (Auto) (20-40) % [place] % (Auto) (2-11) % Eos % (Auto) (0-4) % Baso % (Auto) (0-2) % Lymph # (Auto) (1.2-4.9) X10*3/uL [place] # (Auto) (0.1-1.2) X10*3/uL Eos # (Auto) (0.0-0.4) X10*3/uL Baso # (Auto) (0.0-0.2) X10*3/uL Abs Immat Gran (auto) (0.00-0.03) X10*3/uL Absolute Neuts (auto) (2.0-8.3) x10*3/uL Absolute Nucleated RBC (0.0-0.012) X10*3/uL Nucleated RBC % (auto) (0.0-0.2) /100WBC Sodium (135-145) mmol/L Potassium (3.3-5.1) mmol/L Chloride (96-108) mmol/L Carbon Dioxide (22-29) mmol/L Anion Gap (12-20) BUN (9-16) mg/dL Creatinine (0.5-1.4) mg/dL Estim Creat Clear Calc Estimated GFR POC Glucose 320 H 308 H 371 H* (60-115) mg/dL Random Glucose (60-115) mg/dL Calcium (8.4-10.2) mg/dL Total Bilirubin (0.0-1.0) mg/dL AST (5-31) U/L ALT (0-31) U/L Alkaline Phosphatase (39-117) U/L C-Reactive Protein (< or = 0.50) mg/dL Total Protein (6.5-8.0) g/dL Albumin (3.5-5.0) g/dL Influenza Type A (PCR) (Negative) Influenza Type B (PCR) (Negative) RSV RNA Qual (PCR) (Negative) SARS-CoV-2 RNA (RT-PCR) (Negative) 04/23/25 04/23/25 Range/Units 11:21 11:53 WBC (4.8-10.8) X10*3/uL RBC (4.20-5.50) X10*6/uL Hgb (12.0-16.0) g/dl Hct (37.0-47.0) % MCV (80.0-98.0) fL MCH (27.0-33.0) pg MCHC (31.0-35.0) g/dl RDW (11.0-16.0) % Plt Count (160-400) X10*3/uL MPV (9.4-12.3) fL Immature Gran % (Auto) (0.0-0.4) % Neut % (Auto) (45-73) % Lymph % (Auto) (20-40) % [place] % (Auto) (2-11) % Eos % (Auto) (0-4) % Baso % (Auto) (0-2) % Lymph # (Auto) (1.2-4.9) X10*3/uL [place] # (Auto) (0.1-1.2) X10*3/uL Eos # (Auto) (0.0-0.4) X10*3/uL Baso # (Auto) (0.0-0.2) X10*3/uL Abs Immat Gran (auto) (0.00-0.03) X10*3/uL Absolute Neuts (auto) (2.0-8.3) x10*3/uL Absolute Nucleated RBC (0.0-0.012) X10*3/uL Nucleated RBC % (auto) (0.0-0.2) /100WBC Sodium (135-145) mmol/L Potassium (3.3-5.1) mmol/L Chloride (96-108) mmol/L Carbon Dioxide (22-29) mmol/L Anion Gap (12-20) BUN (9-16) mg/dL Creatinine (0.5-1.4) mg/dL Estim Creat Clear Calc Estimated GFR POC Glucose 359 H* 378 H* (60-115) mg/dL Random Glucose (60-115) mg/dL Calcium (8.4-10.2) mg/dL Total Bilirubin (0.0-1.0) mg/dL AST (5-31) U/L ALT (0-31) U/L Alkaline Phosphatase (39-117) U/L C-Reactive Protein (< or = 0.50) mg/dL Total Protein (6.5-8.0) g/dL Albumin (3.5-5.0) g/dL Influenza Type A (PCR) (Negative) Influenza Type B (PCR) (Negative) RSV RNA Qual (PCR) (Negative) SARS-CoV-2 RNA (RT-PCR) (Negative) Independent Interpretation I performed an independent interpretation of an: Plain X-Ray Interpretation: All negative Radiology Impression Discussion of test interpretation with radiology: I have reviewed the radiologist's reading. Discharge Plan Discharge Clinical Impression: Multiple sclerosis, Ataxia, Fall Patient Disposition: Xfer Inpatient Rehab Fac Transfer Details: [facility] Instructions: Multiple Sclerosis (DC), Fall Prevention (ED) Additional Instructions: CT scans negative for trauma xrays no acute trauma labs reassuring return for any worsening symptoms or concerns. Prescriptions: No Action famotidine 10 mg Tablet 10 mg PO BID atorvastatin 40 mg tablet 1 tab PO DAILY losartan 100 mg tablet 100 mg PO DAILY albuterol sulfate [Ventolin HFA] 90 mcg/actuation Hfa Aerosol Inhaler 2 puff inhalation RQ4H PRN (Reason: wheezing) Qty: 0 0RF metformin 500 mg tablet extended release 24 hr 1,000 mg PO BID amlodipine 2.5 mg tablet 10 mg PO DAILY levothyroxine 25 mcg tablet 25 mcg PO DAILY@0600 insulin lispro 100 unit/mL insulin pen 8 - 16 sliding scale dose subcut TIDAC Protocol: Insulin Correction Scale Less than or equal to 110 ---- Give (units): 0 111 to 150 Give (units): 8 151 to 200 Give (units): 10 201 to 250 Give (units): 12 251 to 300 Give (units): 14 301 to 350 Give (units): 16 Greater than 350 Give (units): 0 Call MD if Blood Glucose > : 350 epinephrine 0.3 mg/0.3 mL auto-injector 0.3 mg IM Q10M PRN (Reason: anaphylaxis) Qty: 2 0RF Rx Instructions: for 2 doses doxepin 25 mg capsule 25 mg PO BEDTIME PRN (Reason: Insomnia) clonidine HCl 0.1 mg tablet 0.1 mg PO TID PRN (Reason: Anxiety) fluconazole 150 mg tablet 150 mg PO WE methocarbamol 750 mg tablet 750 - 1,500 mg PO TID PRN (Reason: muscle spasm) sertraline 25 mg tablet 25 mg PO QAM bisacodyl 5 mg tablet,delayed release (DR/EC) 5 mg PO DAILY PRN (Reason: constipation) atomoxetine 18 mg capsule 18 mg PO QAM insulin degludec [Tresiba FlexTouch U-100] 100 unit/mL (3 mL) insulin pen 26 unit subcut DAILY prazosin 1 mg capsule 1 mg PO BEDTIME acetaminophen 500 mg tablet 1,000 mg PO Q8H PRN (Reason: moderate pain) Eliquis 5 mg tablet 5 mg PO BID Referrals: Jane Dhaliwal [Outside] Tyesha Rogers MD [Primary Care Provider, Internal Medicine] Interventions: ED Discharge Assessment Last Done: 04/23/25 10:06 Discharge Date/Time: 04/23/25 12:24 Print Language: Bol[place]ian
[2025-04-21] MEDS: oxyCODONE HCl Immed Release 5 MG TABLET 10 MG PO (18:55)
[2025-04-21 19:05] VITALS: BP 162/85; PULSE 78; RESP 16; TEMP 36.1; O2SAT 96
--- NOTE | 2025-04-21 19:51 | PC.NURSE ---
pt given cane, reports she can not weight bear, too much pain when trying to step. would like to stay for PT/CM. aware
--- NOTE | 2025-04-21 20:58 | MHC.CM.ED ---
Addendum entered by Gisel Kapadia 04/21/25 21:10: PCP Dr. Rogers at [facility]. Original Note: CM met with patient to discuss discharge planning. Pt is A&Ox3. Pt is homeless. States she was renting a room, and was uncomfortable with one of the boarders, so she left. She has been couch surfing or staying in her son's car. She states she is on a housing list and that she has been calling the shelters, but they are all full. Pt given nursing home list and [employer] pamphlet. Pt has MS. States she has been falling. States she has her medications. HCP on file. Has Medicaid PCC. Pt will have PT evaluation in the morning. Pt given a cane, as she did not have one. Pt is agreeable to STR. Pt has a hx substance abuse. Might be difficult to place. Will place local referrals.
[2025-04-21 21:12] LABS: MANUAL DIFF FLAG NO
[2025-04-21 21:14] LABS: Hematocrit 41.7 % (37.0-47.0); Hemoglobin 14.2 g/dl (12.0-16.0); Imm Gran Abs Auto 0.03 X10*3/uL (0.00-0.03); Imm Gran Pct Auto 0.4 % (0.0-0.4); Lymphocytes Absolute Auto 2.2 X10*3/uL (1.2-4.9); Mean Corpuscular HGB Conc 34.1 g/dl (31.0-35.0); Mean Corpuscular Hemoglobin 29.1 pg (27.0-33.0); Mean Corpuscular Volume 85.5 fL (80.0-98.0); NRBC Abs Auto 0.000 X10*3/uL (0.0-0.012); NRBC Pct Auto 0.0 /100WBC (0.0-0.2); Platelet Count 225 X10*3/uL (160-400); Red Blood Count 4.88 X10*6/uL (4.20-5.50); White Blood Count 6.9 X10*3/uL (4.8-10.8)
[2025-04-21 21:36] LABS: Alanine Aminotransferase 20 U/L (0-31); Albumin Level 3.9 g/dL (3.5-5.0); Alkaline Phosphatase 103 U/L (39-117); Anion Gap 12 (12-20); Aspartate Amino Transferase 17 U/L (5-31); Blood Urea Nitrogen 13 mg/dL (9-16); Calcium 8.8 mg/dL (8.4-10.2); Carbon Dioxide 23 mmol/L (22-29); Chloride 105 mmol/L (96-108); Creatinine Clr Calc Pharmacy 86.7; Estimated Glomerular Filt Rate > 60; Potassium 3.9 mmol/L (3.3-5.1); Sodium 136 mmol/L (135-145); Total Protein 6.7 g/dL (6.5-8.0)
[2025-04-21 22:22] VITALS: BP 228/105; PULSE 67; RESP 16; TEMP 36.8; O2SAT 98
[2025-04-21 22:47] VITALS: BP 228/105
[2025-04-21] MEDS: Insulin Glargine,Hum.rec.anlog 100 UNIT/ML 10 ML VIAL 26 UNIT SUBCUT (22:47)
[2025-04-21 22:49] VITALS: BP 228/105
--- NOTE | 2025-04-21 23:56 | PC.NURSE ---
assist pt to bathroom via w/c, still unable to bear weight with mariela wrap applied to ankle. assist back to bed
[2025-04-22] VITALS (8 sets, daily range): BP systolic 117–198; BP diastolic 64–91; PULSE 65–84; RESP 16–20; TEMP 36.5–36.7; O2SAT 95–99
[2025-04-22 00:50] LABS: Glucose, Whole Blood 298 mg/dL (60-115)
--- NOTE | 2025-04-22 02:57 | PC.NURSE ---
Med rec completed from patient list and review with patient. Patient verified active medications. Updated chart and notified Provider that the task has been completed.
[2025-04-22 07:08] LABS: Glucose, Whole Blood 239 mg/dL (60-115)
--- NOTE | 2025-04-22 07:25 | PC.NURSE ---
Pt A+OX3; vss; POC BG 239, treated per insulin-sliding scale protocol; reports L lower leg and R ankle pain at 4/10 at this time/tolerable per pt; awaiting case mgt. and PT consults
--- NOTE | 2025-04-22 08:46 | PC.NURSE ---
PT came for consult/eval; pt c/o increased R ankle pain after eval/medicated per orders
[2025-04-22] MEDS: Insulin Glargine,Hum.rec.anlog 100 UNIT/ML 10 ML VIAL 16 UNIT SUBCUT (09:14)
[2025-04-22 09:24] LABS: Resp Syncy Virus RNA Qual PCR NEGATIVE (Negative); SARS COV2 PCR INHOUSE NEGATIVE (Negative)
--- NOTE | 2025-04-22 10:26 | MHC.CM.ED ---
Addendum entered by Marcela Barton 04/22/25 11:46: [facility] is able to offer a bed. Patient accepts. [facility] PASRR Level 1 submitted for Level 2. MDS completed. Sent to [facility] and [facility]. Original Note: Patient remains in ER. Physical therapy eval completed. Short term rehab is recommended. SNF referral already broadcasted locally. [facility] is only facility still reviewing. Clinical updates sent to [facility]. Continue to monitor for d/c needs.
[2025-04-22 12:24] LABS: Glucose, Whole Blood 200 mg/dL (60-115)
--- NOTE | 2025-04-22 17:46 | PC.NURSE ---
Addendum entered by Yady Curtis RN 04/22/25 17:54: Patient is a 54 yo with multiple sclerosis with poor balance control homeless for now does not have any cane to ambulate in the as the cause for multiple fall as patient does not have any place to live she requesting for senior living. Xrays all negative for a fracture. Some soft tissue swelling noted to right foot. Alert and oriented. Respirations even and non-labored. Abdomen soft, non-tender with positive bowel sounds. Positive pedal pulses with no edema noted. Tenderness noted to right foot upon palpation. CM/PT eval pending. Original Note: Medical History Multiple sclerosis exacerbation Excoriation (skin-picking) disorder Back pain GERD (gastroesophageal reflux disease) Peripheral neuropathy PTSD (post-traumatic stress disorder) Mood disorder Elevated cholesterol Fibromyalgia Chronic back pain DDD (degenerative disc disease) Ovarian cyst Kidney stone Normal colonoscopy Lesion of bladder Suicide attempt Depression IBS (irritable bowel syndrome) Obesity (BMI 30-39.9) Endometriosis History of pulmonary embolus (PE) History of DVT (deep vein thrombosis) Diabetes mellitus Asthma HTN (hypertension) Anxiety Multiple sclerosis
[2025-04-22 17:52] LABS: Glucose, Whole Blood 155 mg/dL (60-115)
[2025-04-22 20:01] LABS: Glucose, Whole Blood 215 mg/dL (60-115)
--- NOTE | 2025-04-22 20:29 | PHA.MEDREC ---
Pharmacy Consult ? Medication Reconciliation Pharmacy has Reviewed the medication reconciliation done by nursing. Spoke to patient to confirm med list. Patient states she is no longer taking Ammonium lactate cream, Vitamin D3, Cyclobenzaprine 10 mg, Lantus Solostar and prednisone 40 mg. Patient confirmed Tresiba Flextouch 26 units daily, , however last fill date was 12/12/24 for 30 days, insulin lispro Tid per sliding scale, last fill date was 12/19/24 for 30 days. Patient states she is taking Levothyroxine , however didn't know the dosing and there is no claim history, left unconfirmed.
--- NOTE | 2025-04-22 20:36 | PHA.MEDREC ---
Addendum entered by Harmeet To formerly [facility] 04/22/25 20:53: Med rec reviewed Original Note: Pharmacy Consult ? Medication Reconciliation Pharmacy has Reviewed the medication reconciliation done by nursing. Spoke to patient to confirm med list. Patient states she is no longer taking Ammonium lactate cream, Vitamin D3, Cyclobenzaprine 10 mg, Lantus Solostar and prednisone 40 mg. Patient confirmed Tresiba Flextouch 26 units daily, , however last fill date was 12/12/24 for 30 days, insulin lispro Tid per sliding scale, last fill date was 12/19/24 for 30 days, Fluconazole 150 mg every Monday, last dose 04/16/25. Patient states she is taking Levothyroxine , however didn't know the dosing and there is no claim history, left unconfirmed.Patient states she hasn't had her medications in 2 days.
--- NOTE | 2025-04-22 21:00 | PC.NURSE ---
Late entry: PT reporting severe itchiness and tw noted hives of her upper body. PT has broocoli listed in chart however she notes it was on her dinner tray. Pt denies SOB and her breathing is normal with even respirations however she is cough somewhat, . Lung sound clear. Provider notified. New orders placed- IV line placed in L AC- pt tolerated well. Medicated as per NOV. PT reports relief of symptoms.
[2025-04-22 22:41] LABS: Glucose, Whole Blood 328 mg/dL (60-115)
--- NOTE | 2025-04-22 23:45 | PC.NURSE ---
Late entry : POC taken due to PT's reported hx of hyperglycemia (in the 600s) due to steroids. Pt previously medicated with steroid. POC 328- Dr. Gan notified. one time dose of 5u lispro ordered and administered as per nov. Reassessment pending
--- NOTE | 2025-04-23 03:55 | PC.NURSE ---
pt POC noted to be 382, provider, Dr Casey, notified. New orders placed. PT medicated as per NOV. Plan of care ongoing
[2025-04-23 06:39] VITALS: BP 151/90; PULSE 86; RESP 20; TEMP 36.5; O2SAT 97
[2025-04-23 06:40] LABS: Glucose, Whole Blood 382 mg/dL (60-115)
[2025-04-23 06:40] LABS: Glucose, Whole Blood 320 mg/dL (60-115)
[2025-04-23] MEDS: Insulin Glargine,Hum.rec.anlog 100 UNIT/ML 10 ML VIAL 16 UNIT SUBCUT (07:23)
[2025-04-23 07:25] VITALS: BP 151/90
--- NOTE | 2025-04-23 07:32 | PC.NURSE ---
PT A&O X4 VSS Pt taking AM meds now per normal routine at home. NAD No complaints except back pain she states is chronic and is asking for Tylenol- no order, will notify provider.
[2025-04-23 08:01] LABS: Glucose, Whole Blood 308 mg/dL (60-115)
[2025-04-23 10:06] VITALS: BP 151/90; PULSE 86; RESP 20; TEMP 36.5
--- NOTE | 2025-04-23 10:08 | MHC.CM.ED ---
Patient remains in ER overflow. Received notification from Heidi of [facility] that approval will be available today. [facility] aware. Patient can leave at 12pm. Zahida GARCIA booked. Med [facility] with chart. Patient, Lucy KAN and Tea FARR aware. Continue to monitor for d/c needs.
--- NOTE | 2025-04-23 10:22 | PC.NURSE ---
Report called to [facility].
[2025-04-23 10:56] LABS: Glucose, Whole Blood 371 mg/dL (60-115)
[2025-04-23 11:25] LABS: Glucose, Whole Blood 359 mg/dL (60-115)
[2025-04-23 11:27] VITALS: BP 146/86; PULSE 76; RESP 18; TEMP 36.4; O2SAT 99
[2025-04-23 11:51] VITALS: BP 146/73
[2025-04-23 11:57] LABS: Glucose, Whole Blood 378 mg/dL (60-115)
--- NOTE | 2025-04-23 12:05 | PC.NURSE ---
Provider Yasir made aware of repeat POC 378
== END 2025-04-23 12:24 ==
PROVIDERS: Physician Assistant Medical; Emergency Provider Internal Medicine; PCP Family Medicine
DX: R07.81 Pleurodynia (principal); G35 Multiple sclerosis; I10 Essential (primary) hypertension; L50.0 Allergic urticaria; T78.1XXA Other adverse food reactions, not elsewhere classified, initial encounter; T78.49XA Other allergy, initial encounter; X58.XXXA Exposure to other specified factors, initial encounter; F17.210 Nicotine dependence, cigarettes, uncomplicated; Z59.02 Unsheltered homelessness; Z91.81 History of falling
CPT/HCPCS: 36415; 70450; 71101; 72125; 73502; 73610; 80053; 82947; 85025; 86140; 87637; 96374; 96375; 97162; 99285; J1200; J1308; J2919

== ENCOUNTER → 2025-04-21 17:01 | Outpatient (BNV) | payer MEDICAID, SELFPAY | PROVIDERS: Emergency Provider Internal Medicine; Visit Provider Radiology Diagnostic Radiology | DX: M47.812 Spondylosis without myelopathy or radiculopathy, cervical region (principal); S09.90XA Unspecified injury of head, initial encounter; R07.89 Other chest pain; M25.552 Pain in left hip; M77.31 Calcaneal spur, right foot | CPT/HCPCS: 70450; 71101; 72125; 73502; 73610 ==

== ENCOUNTER 2025-05-23 18:22 | Outpatient (REF) | payer MEDICAID, SELFPAY ==
--- OUTSIDE RECORDS SUMMARY | 2025-05-23 13:20 | XMS_ITS | Encounter Summary ---
Author Organization [employer] Address [address] [place] [address] [address] [place] [address] Care Team Providers Care Steam Meter Reader Name Role Phone Tyesha Rogers MD Primary Care Provider [phone] Reason for Referral * Consultation (Routine) - Pending Review Specialty Diagnoses / Procedures Referred By Zabrina ro Referred To Contact Orthopaedic Surgery Diagnoses Sprain of right ankle, unspecified ligament, initial encounter Marcy Hatch FNP [address] [place] [address] Phone: tel: fax: Referral ID Status Reason Start Date Expiration Date Visits Requested Visits Authorized [id number] Pending Review Specialty Services Required 05/23/2025 05/23/2026 1 1 * Consultation (Routine) - Pending Review Specialty Diagnoses / Procedures Referred By Zabrina ro Referred To Contact Cardiology Diagnoses Recurrent chest pain Marcy Hatch FNP [address] [place] [address] Phone: tel: fax: Referral ID Status Reason Start Date Expiration Date Visits Requested Visits Authorized [id number] Pending Review Specialty Services Required 05/23/2025 05/23/2026 1 1 Reason for Visit * Reason Comments Foot Pain Dizziness Headache Chest Pain Encounter Details Date Type Department Care Team (Late st Contact Info) Description 05/23/2025 1:20 PM EDT Office Visit [facility] [address] [address] Primary hypertension (Primary Dx); Type 2 diabetes mellitus with hyperglycemia, with long-term current use of insulin (CMS/HCC); Soft tissue infection; Recurrent chest pain; Sprain of right ankle, unspecified ligament, initial encounter Social History Tobacco Use Types Packs/Day Years [...] Access Q2 Not on file 12/11/2024 Comments No Sex and Gender Information Value Date Recorded Sex Assigned at Female 07/11/2022 10:19 AM EDT Legal Sex Female 10:19 AM EDT Gender Identity Female 07/11/2022 10:19 AM EDT Sexual Orientation Choose not to disclose 2021 10:19 AM EDT documented as of this encounter Last Filed Vital Signs Vital Sign Reading Time Taken Comments Blood Pressure 156/98 05/23/2025 1:29 PM EDT Man ual Pulse 82 05/23/2025 1:11 PM EDT Temperature 36.6 C (97.8 F) 05/23/2025 1:11 PM EDT Respiratory Rate 17 05/23/2025 1:11 PM EDT Oxygen Saturation 99% 05/23/2025 1:11 PM EDT Inhaled Oxygen Concentration - - Weight 77.1 kg (170 lb) 05/23/2025 1:11 PM EDT Height - - Body Mass Index 31.09 02/26/2025 9:12 AM EDT documented in this encounter Plan of Treatment Upcoming Encounters Date Type Department Care Team (Late st Contact Info) Description 06/02/2025 9:00 AM EDT Office Visit [facility] MEDICINE [address] [place] [address] Tyesha Rogers MD [address] [place] [address] 06/24/2025 9:00 AM EDT Office Visit [facility] OPTOMETRY [address] [place] [address] Raf, Katharine, OD [address] [place] [address] Scheduled Orders Name Type Priority Associated Diagnoses Orde r Schedule Wound Culture Microbiology Routine Soft tissue infection Ordered: 05/23/2025 Scheduled Referrals Name Type Priority Associated Diagnoses Orde r Schedule Referral to Cardiology Outpatient Referral Routine Recurrent chest pain Expected: 05/23/2025 (Approximate), Expires: 05/23/2026 Referral to Orthopaedic Surgery Outpatient Referral Routine Sprain of right ankle, unspecified ligament, initial encounter Expected: 05/23/2025 (Approximate), Expires: 05/23/2026 documented as of this encounter Procedures Procedure Name Priority Date/Time Associated Diagnosis Comments POCT GLUCOSE Routine 05/23/2025 2:18 PM EDT Type 2 diabetes mellitus with hyperglycemia, with long-term current use of insulin ([facility]) documented in this encounter Results * (ABNORMAL) POCT glucose manually resulted (05/23/2025 2:18 PM EDT) Glucose Blood, POC 385(A) 60 - 200 mg/dL Blood Capillary blood specimen / Unknown 05/23/2025 2:18 PM EDT [facility] [employer]ER POINT OF CARE TEST ENTER/EDIT ORDERABLES Final Result documented in this encounter Visit Diagnoses Diagnosis Primary hypertension- Primary Unspecified essential hypertension Type 2 diabetes mellitus with hyperglycemia, with long-term current use of insulin ([facility]) Soft tissue infection Unspecified infectious and parasitic diseases Recurrent chest pain Unspecified chest pain Sprain of right ankle, unspecified ligament, initial encounter documented in this encounter Additional Health Concerns Assessment Noted Time PHQ-9 Depression Total Score: 14 025 1:25 PM EDT documented as of this encounter Care Teams Steam Meter Reader Relationship Specialty Start Date End Date Tyesha Rogers MD [address] [place] [address] PCP - General Family Medicine 04/25/19 documented as of this encounter
--- OUTSIDE RECORDS SUMMARY | 2025-05-23 18:26 | XMS_ITS | Encounter Summary ---
Author Organization [employer] Address [address] [facility] 7 [place] [address] Care Team Providers Care Institution Director Name Role Phone Tyesha Rogers MD Primary Care Provider [phone] Reason for Visit * Reason Onset Date Comments Call Back Request 05/01/2025 Encounter Details Date Type Department Care Team ([facility] st Contact Info) Description 05/01/2025 Telephone [facility] [address] [place], [place] [phone] Tyesha Rogers MD [address] [place] [address] Call Back Request Social History Tobacco Use Types Packs/Day [...] encounter Miscellaneous Notes * Telephone Encounter - Marquis Griffith - 05/01/2025 9:21 AM EDT TC from pt requesting a call back from PCP Dr Rogers . Pt states wants to speak to her about rehab she is current in and about getting information . Pt did not want to disclose further . documented in this encounter Plan of Treatment Upcoming Encounters Date Type Department Care Team (Late st Contact Info) Description 06/02/2025 9:00 AM EDT Office Visit [facility] [address] [place] [address] Tyesha Rogers MD [address] [place] [address] 06/24/2025 9:00 AM EDT Office Visit [facility] [address] [place] [address] Katharine Carbone, OD [address] [place] [address] documented as of this encounter Visit Diagnoses Not on filedocumented in this encounter Additional Health Concerns Assessment Noted Time PHQ-9 Depression Total Score: 14 025 1:25 PM EDT documented as of this encounter Care Teams Institution Director Relationship Specialty Start Date End Date Tyesha Rogers MD [address] [place] [address] PCP - General Family Medicine 04/25/19 documented as of this encounter
--- OUTSIDE RECORDS SUMMARY | 2025-05-23 18:26 | XMS_ITS | Encounter Summary ---
Author Organization [employer] Address [address] [facility] 7t [place] [address] Care Team Providers Care Wire Drawing Setter Name Role Phone Tyesha Rogers MD Primary Care Provider [phone] Reason for Visit * Reason Comments Med Refill Encounter Details Date Type Department Care Team ([facility] st Contact Info) Description 01/19/2025 Refill [facility] [address] [place], [place] [phone] Tyesha Rogers MD [address] [place], [place] [phone] Social History Tobacco Use Types Packs/Day Years [...] Description 06/02/2025 9:00 AM EDT Office Visit [facility] [address] [place] [address] Tyesha Rogers MD [address] [place] [address] 06/24/2025 9:00 AM EDT Office Visit [facility] [address] [place] [address] Raf, Katharine, OD [address] [place] [address] documented as of this encounter Visit Diagnoses Not on filedocumented in this encounter Additional Health Concerns Assessment Noted Time PHQ-9 Depression Total Score: 14 025 1:25 PM EDT documented as of this encounter Care Teams Wire Drawing Setter Relationship Specialty Start Date End Date Tyesha Rogers MD [address] [place] [address] PCP - General Family Medicine 04/25/19 documented as of this encounter
--- OUTSIDE RECORDS SUMMARY | 2025-05-23 18:26 | XMS_ITS | Encounter Summary ---
Author Organization [employer] Address [address] [facility] 7t [place] [address] Care Team Providers Care Salvage Mend Worker Name Role Phone Tyesha Rogers MD Primary Care Provider [phone] Encounter Details Date Type Department Care Team (Late st Contact Info) Description 04/23/2025 Orders Only [facility] [address] [place], [place] [phone] Tyesha Rogers MD [address] [place], [place] [phone] Social History Tobacco Use Types Packs/Day Years [...] 06/02/2025 9:00 AM EDT Office Visit [facility] [address] [place] [address] Tyesha Rogers MD [address] [place] [address] 06/24/2025 9:00 AM EDT Office Visit [facility] [address] [place] [address] RafKatharine fu, OD [address] [place] [address] documented as of this encounter Procedures Procedure Name Priority Date/Time Associated Diagnosis Comments GLUCOSE, WHOLE BLOOD Routine 04/23/2025 11:53 AM EDT GLUCOSE, WHOLE BLOOD Routine 04/23/2025 11:21 AM EDT GLUCOSE, WHOLE BLOOD Routine 04/23/2025 10:52 AM EDT documented in this encounter Results * (ABNORMAL) Glucose, Whole Blood (04/23/2025 11:53 AM EDT) Glucose, Whole Blood 378() 60 - 115 mg/dL [facility] Comment:METER #: [id number] 04/23/2025 11:5 3 AM EDT 04/23/2025 11:57 AM EDT us Generic External Data Provider LAB BLOOD ORDERAB LES Final Result Performing Organization Address [facility] Co de Phone Number [facility] [address] [place] [phone] * (ABNORMAL) Glucose, Whole Blood (04/23/2025 11:21 AM EDT) Glucose, Whole Blood 359(HH) 60 - 115 mg/dL [facility] Comment:METER #: [id number] 7 04/23/2025 11:2 1 AM EDT 04/23/2025 11:24 AM EDT us Generic External Data Provider LAB BLOOD ORDERAB LES Final Result Performing Organization Address [facility] Co de Phone Number [facility] [address] [place] [phone] * (ABNORMAL) Glucose, Whole Blood (04/23/2025 10:52 AM EDT) Glucose, Whole Blood 371(HH) 60 - 115 mg/dL [facility] Comment:METER #: [id number] 7 04/23/2025 10:5 2 AM EDT 04/23/2025 10:55 AM EDT us Generic External Data Provider LAB BLOOD ORDERAB LES Final Result Performing Organization Address [facility] de Phone Number [facility] [address] [place] [phone] documented in this encounter Visit Diagnoses Not on filedocumented in this encounter Additional Health Concerns Assessment Noted Time PHQ-9 Depression Total Score: 14 12/31/2 025 1:25 PM EDT documented as of this encounter Care Teams Salvage Mend Worker Relationship Specialty Start Date End Date Tyesha Rogers MD [address] [place] [address] PCP - General Family Medicine 04/25/19 documented as of this encounter
--- OUTSIDE RECORDS SUMMARY | 2025-05-23 18:26 | XMS_ITS | Encounter Summary ---
Author Organization [employer] Address [address] [facility] 7t [place] [address] Care Team Providers Care Senior Publications Specialist Name Role Phone Tyesha Rogers MD Primary Care Provider [phone] Encounter Details Date Type Department Care Team (Latest Contact Info) Description 05/23/2025 Travel Social History Tobacco Use Types Packs/Day [...] Description 06/02/2025 9:00 AM EDT Office Visit [facility] [address] [place] [address] Tyesha Rogers MD [address] [place] [address] 06/24/2025 9:00 AM EDT Office Visit [facility] [address] [place] [address] Raf, Katharine, OD [address] [place] [address] documented as of this encounter Visit Diagnoses Not on filedocumented in this encounter Additional Health Concerns Assessment Noted Time PHQ-9 Depression Total Score: 14 025 1:25 PM EDT documented as of this encounter Care Teams Senior Publications Specialist Relationship Specialty Start Date End Date Tyesha Rogers MD [address] [place] [address] PCP - General Family Medicine 04/25/19 documented as of this encounter
--- OUTSIDE RECORDS SUMMARY | 2025-05-23 18:26 | XMS_ITS | Encounter Summary ---
Author Organization [employer] Address [address] [facility] 7 [place] [address] Care Team Providers Care Director Of Consumer Affairs Name Role Phone Tyesha Rogers MD Primary Care Provider [phone] Reason for Visit * Reason Onset Date Comments Telephone Call 05/23/2025 Encounter Details Date Type Department Care Team ([facility] st Contact Info) Description 05/23/2025 Telephone [facility] [address] [place], [place] [phone] Tyesha Rogers MD [address] [place] [address] Telephone Call Social History Tobacco Use Types Packs/Day Years [...] encounter Miscellaneous Notes * Telephone Encounter - Giselle Russo - 05/23/2025 12:13 PM EDT Pt walked in requesting a reschedule for derm apt missed on 05/16/25. documented in this encounter Plan of Treatment Upcoming Encounters Date Type Department Care Team (Late st Contact Info) Description 06/02/2025 9:00 AM EDT Office Visit [facility] [address] [place] [address] Tyesha Rogers MD [address] [place] [address] 06/24/2025 9:00 AM EDT Office Visit [facility] [address] [place] [address] Katharine Carbone, OD [address] [place] [address] documented as of this encounter Visit Diagnoses Not on filedocumented in this encounter Additional Health Concerns Assessment Noted Time PHQ-9 Depression Total Score: 14 025 1:25 PM EDT documented as of this encounter Care Teams Director Of Consumer Affairs Relationship Specialty Start Date End Date Tyesha Rogers MD [address] [place] [address] PCP - General Family Medicine 04/25/19 documented as of this encounter
--- OUTSIDE RECORDS SUMMARY | 2025-05-23 18:26 | XMS_ITS | Encounter Summary ---
Author Organization [employer] Address [address] [facility] 7 [place] [address] Care Team Providers Care Air Carrier Operations Inspector Name Role Phone Tyesha Rogers MD Primary Care Provider [phone] Encounter Details Date Type Department Care Team (Late st Contact Info) Description 01/28/2025 Telephone [facility] [address] [place], [place] [phone] Mira Vanegas, PharmD [address] [place] [address] Social History Tobacco Use Types Packs/Day Years [...] Description 06/02/2025 9:00 AM EDT Office Visit [facility] [address] [place] [address] Tyesha Rogers MD [address] [place] [address] 06/24/2025 9:00 AM EDT Office Visit [facility] [address] [place] [address] Raf, Katharine, OD [address] [place] [address] documented as of this encounter Visit Diagnoses Not on filedocumented in this encounter Additional Health Concerns Assessment Noted Time PHQ-9 Depression Total Score: 14 025 1:25 PM EDT documented as of this encounter Care Teams Air Carrier Operations Inspector Relationship Specialty Start Date End Date Tyesha Rogers MD [address] [place] [address] PCP - General Family Medicine 04/25/19 documented as of this encounter
--- OUTSIDE RECORDS SUMMARY | 2025-05-23 18:26 | XMS_ITS | Encounter Summary ---
Author Organization [employer] Address [address] [facility] 7t [place] [address] Care Team Providers Care Wagon Person Name Role Phone Tyesha Rogers MD Primary Care Provider [phone] Encounter Details Date Type Department Care Team ([facility] st Contact Info) Description 05/23/2025 Telephone [facility] [address] [place], [place] [phone] Tyesha Rogers MD [address] [place], [place] [phone] Social History Tobacco Use Types Packs/Day Years [...] encounter Miscellaneous Notes * Telephone Encounter - Wali Pritchett [place] - 05/23/2025 1:28 PM EDT T/c to pt to r/s a derm appt pt No Answer let a massage.to call back. documented in this encounter Plan of Treatment Upcoming Encounters Date Type Department Care Team (Late st Contact Info) Description 06/02/2025 9:00 AM EDT Office Visit [facility] [address] [place] [address] Tyesha Rogers MD [address] [place] [address] 06/24/2025 9:00 AM EDT Office Visit [facility] OPTOMETRY [address] [place] [address] Raf, Katharine, OD [address] [place] [address] documented as of this encounter Visit Diagnoses Not on filedocumented in this encounter Additional Health Concerns Assessment Noted Time PHQ-9 Depression Total Score: 14 025 1:25 PM EDT documented as of this encounter Care Teams Wagon Person Relationship Specialty Start Date End Date Tyesha Rogers MD [address] [place] [address] PCP - General Family Medicine 04/25/19 documented as of this encounter
--- OUTSIDE RECORDS SUMMARY | 2025-05-23 18:26 | XMS_ITS | Encounter Summary ---
Author Organization [employer] Address [address] [facility] 7[address] [place] [address] Care Team Providers Care Marketing Coordinator Name Role Phone Tyesha Rogers MD Primary Care Provider [phone] Encounter Details Date Type Department Care Team (Late st Contact Info) Description 02/21/2025 Orders Only [facility] [address] [place], [place] [phone] Tyesha Rogers MD [address] [place], [place] [phone] Social History Tobacco Use Types Packs/Day Years [...] Description 06/02/2025 9:00 AM EDT Office Visit [facility] [address] [place] [address] Tyesha Rogers MD [address] [place] [address] 06/24/2025 9:00 AM EDT Office Visit [facility] OPTOMET[facility] [address] [place] [address] Raf, Katharine, OD [address] [place] [address] documented as of this encounter Visit Diagnoses Not on filedocumented in this encounter Additional Health Concerns Assessment Noted Time PHQ-9 Depression Total Score: 14 025 1:25 PM EDT documented as of this encounter Care Teams Marketing Coordinator Relationship Specialty Start Date End Date Tyesha Rogers MD [address] [place] [address] PCP - General Family Medicine 04/25/19 documented as of this encounter
--- OUTSIDE RECORDS SUMMARY | 2025-05-23 18:26 | XMS_ITS | Encounter Summary ---
Author Organization [employer] Address [address] [facility] 7 [place] [address] Care Team Providers Care Budget Director Name Role Phone Tyesha Rogers MD Primary Care Provider [phone] Reason for Visit * Reason Onset Date Comments Hospital Follow-up 05/07/2025 Encounter Details Date Type Department Care Team (Late st Contact Info) Description 05/07/2025 Telephone [facility] [address] [place], [place] [phone] Tyesha Rogers MD [address] [place] [address] Hospital Follow-up Social History Tobacco Use Types [...] encounter Miscellaneous Notes * Telephone Encounter - Umer Calero - 05/07/2025 3:36 PM EDT Tc from pt requesting a HDF appt. Hospital: [facility] Date of admission: 04/23/2025 Discharge date: 04/23/2025 Diagnosed: Fall twist of right ankle *Send message to [facility] [place] [facility] Coordinators Spoke to: Heather with [facility] Contact [phone] [phone] documented in this encounter Plan of Treatment Upcoming Encounters Date Type Department Care Team (Late st Contact Info) Description 06/02/2025 9:00 AM EDT Office Visit [facility] [address] [place] [address] Tyesha Rogers MD [address] [place] [address] 06/24/2025 9:00 AM EDT Office Visit [facility] OPTOMETRY [address] [place] [address] Katharine Carbone, OD [address] [place] [address] documented as of this encounter Visit Diagnoses Not on filedocumented in this encounter Additional Health Concerns Assessment Noted Time PHQ-9 Depression Total Score: 14 025 1:25 PM EDT documented as of this encounter Care Teams Budget Director Relationship Specialty Start Date End Date Tyesha Rogers MD [address] [place] [address] PCP - General Family Medicine 04/25/19 documented as of this encounter
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
--- OUTSIDE RECORDS SUMMARY | 2025-05-23 18:27 | XMS_ITS | Encounter Summary ---
Author Organization [employer] Address [address] [facility] 7 [place] [address] Care Team Providers Care Substation Operator Name Role Phone Tyesha Rogers MD Primary Care Provider [phone] Reason for Visit * Reason Onset Date Comments Nurse Triage 08/30/2023 Encounter Details Date Type Department Care Team ([facility] st Contact Info) Description 08/30/[address] 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. Pt reported CP and elevated BS. 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 Sent to team for ER status check [...] and stated is on her way to [facility]. * Telephone Encounter - Blanca Rashid - [...] Description 06/02/2025 9:00 AM EDT Office Visit [facility] MEDICINE [address] [place] [address] Tyesha Rogers MD [address] [place] [address] 06/24/2025 9:00 AM EDT Office Visit [facility] OPTOMETRY [address] [place] [address] Raf, Katharine, OD [address] [place] [address] documented as of this encounter Visit Diagnoses Not on filedocumented in this encounter Additional Health Concerns Assessment Noted Time PHQ-9 Depression Total Score: 21 023 9:42 AM EDT documented as of this encounter Care Teams Substation Operator Relationship Specialty Start Date End Date Tyesha Rgoers MD [address] [place] [address] PCP - General Family Medicine 04/25/19 documented as of this encounter
--- OUTSIDE RECORDS SUMMARY | 2025-05-23 18:27 | XMS_ITS | Encounter Summary ---
Author Organization [employer] Address [address] [facility] [address] [place] [address] Care Team Providers Care Design Engineering Intern Name Role Phone Tyesha Rogers MD Primary Care Provider [phone] Encounter Details Date Type Department Care Team (Late st Contact Info) Description 12/10/2024 Orders Only [facility]INE [address] [place], [place] [phone] Tyesha Rogers MD [address] [place], [place] [phone] Neuropathy Social History Tobacco Use Types Packs/Day [...] Description 06/02/2025 9:00 AM EDT Office Visit [facility] [address] [place] [address] Tyesha Rogers MD [address] [place] [address] 06/24/2025 9:00 AM EDT Office Visit [facility] OPTOMETRY [address] [place] [address] Raf, Katharine, OD [address] [place] [address] documented as of this encounter Visit Diagnoses Diagnosis Neuropathy Mononeuritis of unspecified site documented in this encounter Additional Health Concerns Assessment Noted Time PHQ-9 Depression Total Score: 15 025 11:52 AM EST documented as of this encounter Care Teams Design Engineering Intern Relationship Specialty Start Date End Date Tyesha Rogers MD [address] [place] [address] PCP - General Family Medicine 04/25/19 documented as of this encounter
--- OUTSIDE RECORDS SUMMARY | 2025-05-23 18:27 | XMS_ITS | Encounter Summary ---
Author Organization [employer] Address [address] [facility] 7t [place] [address] Care Team Providers Care Manager Ob Name Role Phone Tyesha Rogers MD Primary Care Provider [phone] Encounter Details Date Type Department Care Team (Late st Contact Info) Description 01/25/2024 Orders Only [facility] MEDICINE [address] [place], [place] [phone] Tyesha Rogers MD [address] [place], [place] [phone] Social History Tobacco Use Types Packs/Day Years [...] Description 06/02/2025 9:00 AM EDT Office Visit [facility] MEDICINE [address] [place] [address] Tyesha Rogers MD [address] [place] [address] 06/24/2025 9:00 AM EDT Office Visit [facility] OPTOMETRY [address] [place], [place] [phone] Raf, Katharine, OD [address] [place] [address] documented as of this encounter Visit Diagnoses Not on filedocumented in this encounter Additional Health Concerns Assessment Noted Time PHQ-9 Depression Total Score: 21 024 10:41 AM EDT documented as of this encounter Care Teams Manager Ob Relationship Specialty Start Date End Date Tyesha Rogers MD [address] [place], [place] [phone] PCP - General Family Medicine 04/25/19 documented as of this encounter
--- OUTSIDE RECORDS SUMMARY | 2025-05-23 18:27 | XMS_ITS ---
Author Organization [employer] Address [address] [place] [address] Care Team Providers Care Sterile Products Processor Name Role Phone Tyesha Rogers MD Primary Care Provider [phone] CM Complex Status:Enrolled (Active) Start date:12/11/2024 Enrollment date:12/31/2024 Enrollment reason:ADT Feed Overview ED- Pt went to [facility] ED on 12/10/24. Case Team Name Relationship Phone Angel Sanchez RN(Responsible Staff) Registered Katelin gomez [phone] Continued Care and Services Coordination
--- OUTSIDE RECORDS SUMMARY | 2025-05-23 18:27 | XMS_ITS | Encounter Summary ---
Author Organization [employer] Address 75 [facility] 7t [place] [address] Care Team Providers Care School Bus Inspector Name Role Phone Tyesha Rogers MD Primary Care Provider [phone] Encounter Details Date Type Department Care Team (Late st Contact Info) Description 05/06/2024 Orders Only [facility] [address] [place], [place] [phone] Tyesha Rogers MD 230 [place], [place] [phone] Social History Tobacco Use Types Packs/Day Years [...] Description 06/02/2025 9:00 AM EDT Office Visit [facility] [address] [place] [address] Tyesha Rogers MD 230 [place] [address] 06/24/2025 9:00 AM EDT Office Visit [facility] [address] [place], [place] [phone] Raf, Katharine, OD 230 [place] [address] documented as of this encounter Visit Diagnoses Not on filedocumented in this encounter Additional Health Concerns Assessment Noted Time PHQ-9 Depression Total Score: 21 024 10:41 AM EDT documented as of this encounter Care Teams School Bus Inspector Relationship Specialty Start Date End Date Tyesha Rogers MD 230 [place], [place] [phone] PCP - General Family Medicine 04/25/19 documented as of this encounter
--- OUTSIDE RECORDS SUMMARY | 2025-05-23 18:27 | XMS_ITS | Encounter Summary ---
Author Organization [employer] Address 75 [facility] 7t [place] [address] Care Team Providers Care Mechanical Engineering Intern Name Role Phone Tyesha Rogers MD Primary Care Provider [phone] Reason for Visit * Reason Comments Med Refill Encounter Details Date Type Department Care Team ([facility] st Contact Info) Description 11/23/2024 Refill [facility] [address] [place], [place] [phone] Tyesha Rogers MD 230 [place], [place] [phone] Other chronic pain Social History Tobacco Use [...] Description 06/02/2025 9:00 AM EDT Office Visit [facility] [address] [place] [address] Tyesha Rogers MD [address] [place] [address] 06/24/2025 9:00 AM EDT Office Visit [facility] [address] [place] [address] Raf, Katharine, OD 230 [place] [address] documented as of this encounter Visit Diagnoses Diagnosis Other chronic pain documented in this encounter Additional Health Concerns Assessment Noted Time PHQ-9 Depression Total Score: 15 025 11:52 AM EST documented as of this encounter Care Teams Mechanical Engineering Intern Relationship Specialty Start Date End Date Tyesha Rogers MD 230 [place] [address] PCP - General Family Medicine 04/25/19 documented as of this encounter
--- OUTSIDE RECORDS SUMMARY | 2025-05-23 18:27 | XMS_ITS | Encounter Summary ---
Author Organization [employer] Address 75 [facility] 7 [place] [address] Care Team Providers Care Tray Drier Operator Name Role Phone Tyesha Rogers MD Primary Care Provider [phone] Reason for Visit * Reason Onset Date Comments Appointment Request 01/13/2025 Encounter Details Date Type Department Care Team ([facility] st Contact Info) Description 01/13/2025 Telephone [facility] 230 [place], [place] [phone] Tyesha Rogers MD 230 [place], [place] [phone] Appointment Request Social History Tobacco Use Types [...] was cancelled to be rescheduled due to speech writer not finding availability please return call to pt to be scheduled. Callback number [phone] Appointment type - Follow Up Notes - F/U allergic reaction. Sent to ED at last appt. Provider - Tyesha Rogers [phone] documented in this encounter Plan of Treatment Upcoming Encounters Date Type Department Care Team (Late st Contact Info) Description 06/02/2025 9:00 AM EDT Office Visit [facility] 230 [place] [address] Tyesha Rogers MD 230 [place], [place] [phone] 06/24/2025 9:00 AM EDT Office Visit [facility] [address] [place] [address] Katharine Carbone, OD 230 [place] [address] documented as of this encounter Visit Diagnoses Not on filedocumented in this encounter Additional Health Concerns Assessment Noted Time PHQ-9 Depression Total Score: 14 025 1:25 PM EDT documented as of this encounter Care Teams Tray Drier Operator Relationship Specialty Start Date End Date Tyesha Rogers MD 230 [place] [address] PCP - General Family Medicine 04/25/19 documented as of this encounter
--- OUTSIDE RECORDS SUMMARY | 2025-05-23 18:27 | XMS_ITS | Encounter Summary ---
Author Organization [employer] Address 75 [facility] 7t [place] [address] Care Team Providers Care Broadcast Maintenance Engineer Name Role Phone Tyesha Rogers MD Primary Care Provider [phone] Reason for Visit * Reason Comments Med Refill Encounter Details Date Type Department Care Team ([facility] st Contact Info) Description 04/24/2024 Refill [facility] 230 [place], [place] [phone] Tyesha Rogers MD 230 [place], [place] [phone] Vitamin D deficiency; Hypothyroidism, unspecified type Social [...] requests. This patient is currently living in [place]. She left [facility]. Please seen Dr. Grimes's note in February 2024. Thank you documented in this encounter Plan of Treatment Upcoming Encounters Date Type Department Care Team (Late st Contact Info) Description 06/02/2025 9:00 AM EDT Office Visit [facility] [address] [place] [address] Tyesha Rogers MD 230 [place] [address] 06/24/2025 9:00 AM EDT Office Visit [facility] OPT[facility] [address] [place] [address] Katharine Carbone, ZAHIDA 230 [place] [address] documented as of this encounter Visit Diagnoses Diagnosis Vitamin D deficiency Hypothyroidism, unspecified type documented in this encounter Additional Health Concerns Assessment Noted Time PHQ-9 Depression Total Score: 21 024 10:41 AM EDT documented as of this encounter Care Teams Broadcast Maintenance Engineer Relationship Specialty Start Date End Date Tyesha Rogers MD [address] [place] [address] PCP - General Family Medicine 04/25/19 documented as of this encounter
--- OUTSIDE RECORDS SUMMARY | 2025-05-23 18:27 | XMS_ITS | Encounter Summary ---
Author Organization [employer] Address [address] [place] [address] 7 [place] [address] Care Team Providers Care Big Data Developer Name Role Phone Tyesha Rogers MD Primary Care Provider [phone] Encounter Details Date Type Department Care Team (Late Contact Info) Description 08/11/2022 Orders Only [facility] [address] [place] [address] Loren Oliva MD 230 [place] [address] Social History Tobacco Use Types Packs/Day Years [...] Department Care Team (Late Contact Info) Description 06/02/2025 9:00 AM EDT Office Visit [facility] MED[facility] 230 [place] [address] Tyesha Rogers MD 230 [place] [address] 06/24/2025 9:00 AM EDT Office Visit [facility] OPT[facility] [address] [place] [address] Katharine Carbone OD 230 [place], [place] [phone] documented as of this encounter Visit Diagnoses Not on filedocumented in this encounter Care Teams Big Data Developer Relationship Specialty Start Date End Date Tyesha Rogers MD [address] [place] [address] [place] [phone] PCP - General Family Medicine 04/25/19 documented as of this encounter
--- OUTSIDE RECORDS SUMMARY | 2025-05-23 18:27 | XMS_ITS | Encounter Summary ---
Author Organization [employer] Address 75 [facility] 7 [place] [address] Care Team Providers Care Emergency Services Director Name Role Phone Tyesha Rogers MD Primary Care Provider [phone] Reason for Visit * Reason Onset Date Comments Hospital Follow-up 05/29/2024 Encounter Details Date Type Department Care Team (Late st Contact Info) Description 05/29/2024 Telephone [facility] MED[facility]INE 230 [place], [place] [phone] Tyesha Rogers MD 230 [place] [address] Hospital Follow-up Social History Tobacco Use Types [...] from pt requesting a HDF appt. Hospital: [facility] Date of admission: 05/28/24 Discharge date: 05/29/24 Diagnosed: urticaria documented in this encounter Plan of Treatment Upcoming Encounters Date Type Department Care Team (Late st Contact Info) Description 06/02/2025 9:00 AM EDT Office Visit [facility] MED[facility]INE 230 [place] [address] Tyesha Rogers MD 230 [place] [address] 06/24/2025 9:00 AM EDT Office Visit [facility] OPT[facility]RY [address] [place] [address] Katharine Carbone OD 230 [place] [address] documented as of this encounter Visit Diagnoses Not on filedocumented in this encounter Additional Health Concerns Assessment Noted Time PHQ-9 Depression Total Score: 24 024 10:42 AM EDT documented as of this encounter Care Teams Emergency Services Director Relationship Specialty Start Date End Date Tyesha Rogers MD 230 [place] [address] PCP - General Family Medicine 04/25/19 documented as of this encounter
--- OUTSIDE RECORDS SUMMARY | 2025-05-23 18:27 | XMS_ITS | Encounter Summary ---
Author Organization [employer] Address 75 [facility] 7 [place] [address] Care Team Providers Care Handbag Designer Name Role Phone Tyesha Rogers MD Primary Care Provider [phone] Reason for Visit * Reason Onset Date Comments Nurse Triage 11/01/2023 Encounter Details Date Type Department Care Team ([facility] st Contact Info) Description 11/01/2023 Telephone [facility] MED[facility]INE 230 [place], [place] [phone] Tyesha Rogers MD 230 [place] [address] Nurse Triage Social History Tobacco Use Types [...] disposition at this time and will request [facility] for medications at time of HDF appt. [...] * Telephone Encounter - Blanca Rashid - 11/01/2023 11:41 AM EST Symptoms: High [...] Office Visit [facility] [address] [place] [address] Tyesha Rogers MD 230 [place] [address] 06/24/2025 9:00 AM EDT Office Visit [facility] [address] [place] [address] Raf, Katharine, OD 230 [place] [address] documented as of this encounter Visit Diagnoses Not on filedocumented in this encounter Additional Health Concerns Assessment Noted Time PHQ-9 Depression Total Score: 21 023 9:42 AM EDT documented as of this encounter Care Teams Handbag Designer Relationship Specialty Start Date End Date Tyesha Rogers MD 230 [place] [address] PCP - General Family Medicine 04/25/19 documented as of this encounter
--- OUTSIDE RECORDS SUMMARY | 2025-05-23 18:27 | XMS_ITS | Encounter Summary ---
Author Organization [employer] Address 75 [facility] 7 [place] [address] Care Team Providers Care Garnett Machine Operator Helper Name Role Phone Tyesha Rogers MD Primary Care Provider [phone] Encounter Details Date Type Department Care Team (Late st Contact Info) Description 07/11/2024 Telephone [facility] 230 [place], [place] [phone] Mira Vanegas, PharmD 230 [place] [address] Social History Tobacco Use Types Packs/Day Years [...] Please assist in obtaining discharge paperwork from [facility] Patient was admitted on 06/21/2024. Thank you documented in this encounter Plan of Treatment Upcoming Encounters Date Type Department Care Team (Late st Contact Info) Description 06/02/2025 9:00 AM EDT Office Visit [facility] [address] [place] [address] Tyesha Rogers MD 230 [place] [address] 06/24/2025 9:00 AM EDT Office Visit [facility] [address] [place] [address] Raf, Katharine, OD 230 [place] [address] documented as of this encounter Visit Diagnoses Not on filedocumented in this encounter Additional Health Concerns Assessment Noted Time PHQ-9 Depression Total Score: 24 024 8:33 AM EDT documented as of this encounter Care Teams Garnett Machine Operator Helper Relationship Specialty Start Date End Date Tyesha Rogers MD 230 [place] [address] PCP - General Family Medicine 04/25/19 documented as of this encounter
--- OUTSIDE RECORDS SUMMARY | 2025-05-23 18:27 | XMS_ITS | Encounter Summary ---
Author Organization [employer] Address [address] [place] [address] 7t [place] [address] Care Team Providers Care Oracle Database Manager Name Role Phone Tyesha Rogers MD Primary Care Provider [phone] Encounter Details Date Type Department Care Team (Late st Contact Info) Description 10/10/2022 Orders Only [facility] 230 [place], [place] [phone] Tyesha Rogers MD [address] [place], [place] [phone] Hypothyroidism, unspecified type (Primary Dx); Elevated TSH; [...] Description 06/02/2025 9:00 AM EDT Office Visit [facility] MED[facility]INE [address] [place] [address] Tyesha Rogers MD [address] [place], [place] [phone] 06/24/2025 9:00 AM EDT Office Visit [facility] OPTOMETRY [address] [place], [place] [phone] Raf, Katharine, OD 230 [place], [place] [phone] Scheduled Orders Name Type Priority Associated Diagnoses [...] documented as of this encounter Care Teams Oracle Database Manager Relationship Specialty Start Date End Date Tyesha Rogers MD [address] [place], [place] [phone] PCP - General Family Medicine 04/25/19 documented as of this encounter
--- OUTSIDE RECORDS SUMMARY | 2025-05-23 18:27 | XMS_ITS | Encounter Summary ---
Author Organization [employer] Address 75 [facility] 7t [place] [address] Care Team Providers Care Pathologist Name Role Phone Tyesha Rogers MD Primary Care Provider [phone] Encounter Details Date Type Department Care Team (Late st Contact Info) Description 06/05/2024 Orders Only [facility] 230 [place], [place] [phone] Henry Choi MD 230 [place] [address] Social History Tobacco Use Types Packs/Day Years [...] 9:00 AM EDT Office Visit [facility] [address] [place] [address] Tyesha Rogers MD 230 [place] [address] 06/24/2025 9:00 AM EDT Office Visit [facility] [address] [place], [place] [phone] Raf, Katharine, OD 230 [place] [address] documented as of this encounter Visit Diagnoses Not on filedocumented in this encounter Additional Health Concerns Assessment Noted Time PHQ-9 Depression Total Score: 24 024 10:42 AM EDT documented as of this encounter Care Teams Pathologist Relationship Specialty Start Date End Date Tyesha Rogers MD 230 [place], [place] [phone] PCP - General Family Medicine 04/25/19 documented as of this encounter
--- OUTSIDE RECORDS SUMMARY | 2025-05-23 18:27 | XMS_ITS | Encounter Summary ---
Author Organization [employer] Address 75 [facility] 7 [place] [address] Care Team Providers Care Engineer Specialist Name Role Phone Tyesha Rogers MD Primary Care Provider [phone] Reason for Visit * Reason Onset Date Comments New Med Request 05/03/2024 Medication Question 05/03/2024 Encounter Details Date Type Department Care Team ([facility] st Contact Info) Description 05/03/[address] [facility] 230 [place], [place] [phone] Tyesha Rogers MD 230 [place] [address] New Med Request; Medication Question Social History [...] pt is no longer a patient at [facility] due to move and because the medications were prescribed by her psychiatrist,she should reach out to psychiatrist for these medications. Patient stated she is moving back to [place], date unknown, leader writer again advised pt to contact psychiatrist as they are the prescriber and informed pt that Dr Rogers would be informed of move back. Patient verbalized understanding. --Dr Rogers Patient left our health center and moved to [place]. Her anxiety medications have been prescribed by her psychiatrist. * Telephone Encounter - Andrew Garcia - 05/03/2024 12:17 PM EDT Tc from patient calling to request a medication for anxiety will be flying from [facility] on 05/14 and would like it to be sent to [facility] Address: [address] [place] [address] documented in this encounter Plan of Treatment Upcoming Encounters Date Type Department Care Team (Late st Contact Info) Description 06/02/2025 9:00 AM EDT Office Visit [facility] MED[facility] [address] [place] [address] Tyesha Rogers MD [address] [place] [address] 06/24/2025 9:00 AM EDT Office Visit [facility] [address] [place], [place] [phone] Katharine Carbone, OD 230 [place] [address] documented as of this encounter Visit Diagnoses Not on filedocumented in this encounter Additional Health Concerns Assessment Noted Time PHQ-9 Depression Total Score: 21 04/ 024 10:41 AM EDT documented as of this encounter Care Teams Engineer Specialist Relationship Specialty Start Date End Date Tyesha Rogers MD 230 [place], [place] [phone] PCP - General Family Medicine 04/25/19 documented as of this encounter
--- OUTSIDE RECORDS SUMMARY | 2025-05-23 18:27 | XMS_ITS ---
Author Organization [employer] Address [address] [place] [address] Care Team Providers Care Director Of Customer Acquisition Name Role Phone Tyesha Rogers MD Primary Care Provider [phone] [facility] Status:Enrolled (Active) Start date:12/11/2024 Enrollment date:12/11/2024 Enrollment reason:ADT Feed Overview ED- [facility] went [facility] [place]. Case Team Name Relationship Phone Aminata York(Responsible Staff) Continued Care and Services Coordination
--- OUTSIDE RECORDS SUMMARY | 2025-05-23 18:27 | XMS_ITS | Encounter Summary ---
Author Organization [employer] Address [address] [place] [address] Care Team Providers Care Can Reforming Machine Operator Name Role Phone Tyesha Rogers MD Primary Care Provider Reason for Referral * Consultation (Routine) - Closed Specialty Diagnoses / Procedures Referred By Contac t Referred To Contact Pharmacy Diagnoses SBO (small bowel obstruction) (CMS/HCC) Tati Neri PharmD [address] [place] [address] Phone: tel: fax: Referral ID Status Reason Start Date Expiration Date V isits Requested Visits Authorized [id number] Closed Continuity of Care 12/07/2023 12/06/2024 1 1 Encounter Details Date Type Department Care Team (Late st Contact Info) Description 12/07/2023 Orders Only [facility] 230 [place], [place] [phone] Tati Neri PharmD 230 [place], [place] [phone] SBO (small bowel obstruction) (CMS/HCC) (Primary Dx) [...] 9:00 AM EDT Office Visit [facility] [address] [place] [address] Tyesha Rogers MD 230 [place] [address] 06/24/2025 9:00 AM EDT Office Visit [facility] [address] [place] [address] Katharine Carbone, ZAHIDA 230 [place] [address] Scheduled Referrals Name Type Priority Associated Diagnoses [...] documented as of this encounter Care Teams Can Reforming Machine Operator Relationship Specialty Start Date End Date Tyesha Rogers MD [address] [place] [address] PCP - General Family Medicine 04/25/19 documented as of this encounter
--- OUTSIDE RECORDS SUMMARY | 2025-05-23 18:27 | XMS_ITS | Encounter Summary ---
Author Organization [employer] Address [address] [place] [address] 7 [place] [address] Care Team Providers Care Optical Goods Drilling Machine Operator Name Role Phone Tyesha Rogers MD Primary Care Provider [phone] Encounter Details Date Type Department Care Team (Late st Contact Info) Description 08/30/[address] [facility] MEDICINE [address] [place], [place] [phone] Tyesha Rogers MD [address] [place], [place] [phone] Social History Tobacco Use Types Packs/Day Years [...] AM EST documented as of this encounter Functional Status * Over the past 2 weeks, how often have you been bothered by any of the following problems? Question Answer Date of Assessment Author Little interest or pleasure in doing things Not at all 08/30/2022 3:25 PM EST Mira Garcia MA Feeling down, depressed, or hopeless Not at all 08/30/2022 3:25 PM EST Mira Garcia MA Patient Health Questionnaire -2 Score 0 08/30/2022 3:25 PM EST Mira Garcia MA documented as of this encounter Plan of Treatment Upcoming Encounters Date Type Department Care Team (Late st Contact Info) Description 06/02/2025 9:00 AM EDT Office Visit [facility] [address] [place] [address] Tyesha Rogers MD [address] [place] [address] 06/24/2025 9:00 AM EDT Office Visit [facility] OPTOMET[facility] [address] [place] [address] Raf, Katharine, OD 230 [place] [address] documented as of this encounter Visit Diagnoses Not on filedocumented in this encounter Additional Health Concerns Assessment Noted Time PHQ-9 Depression Total Score: 9 08/18/20 22 11:40 AM EST documented as of this encounter Care Teams Optical Goods Drilling Machine Operator Relationship Specialty Start Date End Date Tyesha Rogers MD [address] [place] [address] PCP - General Family Medicine 04/25/19 documented as of this encounter
--- OUTSIDE RECORDS SUMMARY | 2025-05-23 18:27 | XMS_ITS | Clinical Summary ---
Author Organization [employer] Address [address] [place] [address] [address] [place] [address] Care Team Providers Care Construction Crew Member Name Role Phone Tyesha Houston MD Primary Care Provider [phone] Allergies Active Allergy Reactions Criticality Noted Date [...] Unable to Define Lisinopril-Hydrochlorothiazi de Cough 12/06/2016 [place] High 12/04/2018 Other reaction(s): stiffened up & [...] hyperglycemia, with long-term current use of insulin ([facility]) Administer 15 g orally as needed for [...] for anaphylaxis. 1 each 024 Active insulin pen needle 32G x 5 mm misc Inject under the skin 4 times daily. Use as instructed 120 each 025 Active FreeStyle lancets 1 each by Other route 4 times daily. Test blood sugar 4 times a day 100 each 5 025 Active Blood Glucose Monitoring Suppl (FreeStyle Rozet Lite) w/Device kit Use to test blood sugar bid dx dm 1 kit 025 Active Blood Pressure kit Check BP every day. Goal BP < 140/90 1 kit 025 Active doxepin (SINEquan) 25 MG capsuleIndicatio ns:Neuropathy Take 1-2 capsules by mouth at bedtime as needed 60 capsule 5 025 Active cloNIDine (Catapres) 0.1 MG tablet Take 1 tablet (0.1 mg) by mouth if needed in the morning, at noon, and at bedtime (anxiety). 180 tablet 3 025 Active prazosin (Minipress) 1 MG capsuleIndicatio ns:Posttraumatic stress disorder Take 1 capsule (1 mg) by mouth at bedtime. 30 capsule 1 025 Active ammonium lactate (Lac-Hydrin) 12 % lotion Apply 1 Application topically 2 times daily. Active ARIPiprazole (Abilify) 5 MG tablet Take 1 tablet by mouth Once per day. Active omeprazole (PriLOSEC) [address] capsule Take 1 capsule by mouth before breakfast. Do not crush or chew. Active docusate sodium (Colace) 100 MG capsule Take 1 capsule by mouth 2 times daily. Active calcium carbonate (Tums) 500 MG chewable tablet Chew 1 tablet if needed each day for indigestion or heartburn. Active insulin lispro (HumaLOG) 100 UNIT/ML injectionIndicat ions:Type 2 diabetes mellitus with hyperglycemia, with long-term current use of insulin ([facility]) << Sliding Scale Comments >>100 - 149 8 units Call if less than [phone] - 199 10 units 200 - 249 12 units 250 - 299 14 units 300 - 349 16 units Call if greater than 400... 20 mL 2 Active methocarbamol (Robaxin) 750 MG tablet Take 1 or 2 tablets by mouth three times daily as needed for muscle spasm 180 tablet 3 Active amLODIPine (Norvasc) 10 MG tablet Take 1 tablet (10 mg) by mouth Once per day. 90 tablet 3 025 2025 Active acetaminophen (Tylenol) 500 MG tablet Take 2 tablets (1,000 mg) by mouth every 8 (eight) hours if needed for moderate pain or fever. 180 tablet 3 Active bisacodyl (Dulcolax) 5 MG EC tablet Take 1 tablet by mouth once a day as needed for constipation / if no bowel movement for 3 days. Do not crush, chew, or split. 30 tablet 3 Active fluconazole (Diflucan) 150 MG tablet Take 1 tablet (150 mg) by mouth 1 (one) time per week. 42 tablet 025 Active atorvastatin (Lipitor) 40 MG tablet Take 1 tablet (40 mg) by mouth Once per day. 90 tablet 3 025 Active apixaban (Eliquis) 5 MG tablet TAKE 1 TABLET BY MOUTH two (2) times a day EVERY TWELVE HOURS 60 tablet 1 Active metFORMIN XR (Glucophage-XR) 500 MG 24 hr tabletIndication s:Type 2 diabetes mellitus with hyperglycemia (CMS/HCC) TAKE 2 TABLETS BY MOUTH WITH BREAKFAST AND TAKE 2 TABLETS BY MOUTH WITH DINNER. DO NOT CRUSH, chew, OR split 360 tablet Active Alcohol Swabs (Alcohol Pads) 70 % pads USE TO TEST FINGER STICK BLOOD SUGAR 3 (THREE) TIMES A DAY AND NEEDED when feeling ill 100 each 3 Active losartan (Cozaar) 100 MG tablet TAKE 1 TABLET BY MOUTH ONCE DAILY 90 tablet Active FREESTYLE LITE test stripIndications :Type 2 diabetes mellitus with hyperglycemia, with long-term current use of insulin ([facility]) USE TO TEST BLOOD SUGAR FOUR TIMES DAILY. FASTING (BEFORE BREAKFAST), BEFORE LUNCH, BEFORE DINNER AND 2 HOURS AFTER YOUR LARGEST MEAL OF THE DAY. 100 strip 3 Active sertraline (Zoloft) 25 MG tabletIndication s:MDD (major depressive disorder), recurrent severe, without psychosis ([facility]) Take 1 tablet (25 mg) by mouth in the morning. 30 tablet Active atomoxetine (Strattera) 18 MG capsuleIndicatio ns:Attention or concentration deficit Take 1 capsule (18 mg) by mouth in the morning. Swallow capsule whole; do not open. If opened accidentally, do not touch eyes; wash hands immediately (product is an eye irritant). 30 capsule Active Ventolin HFA 108 (90 Base) MCG/ACT inhalerIndicatio ns:Moderate persistent asthma without complication INHALE TWO PUFFS BY MOUTH EVERY 4 HOURS NEEDED FOR FOR WHEEZING 18 g Active hydroCHLOROthiaz liban 12.5 MG tabletIndication s:Primary hypertension Take 1 tablet (12.5 mg) by mouth Once per day. 30 tablet 025 2025 Active insulin degludec (Tresiba FlexTouch) 100 UNIT/ML injectionIndicat ions:Type 2 diabetes mellitus with hyperglycemia, with long-term current use of insulin ([facility]) Administer subcutaneously 30 units daily 6 mL Active doxycycline (Vibramycin) 100 MG capsuleIndicatio ns:Soft tissue infection Take 1 capsule (100 mg) by mouth 2 times daily for 5 days. Take with at least 8 ounces (large glass) of water, do not lie down for 30 minutes after 10 capsule 025 2024 Active insulin degludec (Tresiba FlexTouch) 100 UNIT/ML injection Administer subcutaneously 23 units daily 6 mL 11 025 2024 Discontinued(R eorder (will not trigger notification to Pharmacy)) albuterol (Ventolin HFA) 108 (90 Base) MCG/ACT inhalerIndicatio ns:Moderate persistent asthma without complication Inhale 2 puffs every 4 (four) hours if needed for wheezing. 18 g 3 025 2024 Discontinued Hospital, Clinic, or Other Facility Administered Medication Ordered Dose Route Frequency Start Date End Date Status nitroglycerin (Nitrostat) SL tablet 0.4 mgIndications:Acute chest pain,High risk of cardiac event 0.4 mg SL Every 5 min PRN 03/13/2025 Active Active Problems Problem Noted Date Diagnosed Date Attention deficit hyperactiv ity disorder (ADHD), combined type 02/05/2025 Attention or concentration deficit 02/05/2025 Abnormal Pap smear of cervix 01/29/2025 Angioedema 01/29/2025 Abdominal pain 01/29/2025 Back pain 01/29/2025 Abnormal uterine bleeding (AUB) 01/29/2025 Elevated lipase 01/29/2025 History of DVT (deep vein thrombosis) 01/29/2025 Hot flashes 01/29/2025 IBS (irritable bowel syndrome) 01/29/2025 Lesion of bladder 01/29/2025 Obesity (BMI 30-39.9) 01/29/2025 Pancreatitis 01/29/2025 Pelvic pain in female 01/29/2025 Perimenopause 01/29/2025 UTI (urinary tract infection), bacterial Vulvar abscess 01/29/2025 Acute hyperglycemia 01/29/2025 Excoriation (skin-picking) disorder 01/29/2025 History of pulmonary embolus (PE) 01/29/2025 Multiple sclerosis exacerbation 01/29/2025 Kidney stone 01/29/2025 Overview (01/29/2025): Left 1.2 cm MDD (major depressive disord er), recurrent severe, without psychosis 01/29/2025 LUCILLE (generalized anxiety disorder) 12/16/2024 Class 2 severe obesity due t o excess calories with serious comorbidity and body mass index (BMI) of 35.0 to 35.9 in adult 08/02/2024 Hypertensive emergency 06/26/2024 Assessment & Plan (06/26/2024 12:15 PM EDT): EMS called, patient presented to YORDAN Garcia to the [facility] emergency department Hypomagnesemia 06/04/2024 Right wrist pain [...] restlessness. Emily agrees to go up to [facility], and attempt to reschedule with therapist. Emily is open to a referral to [facility] for psychiatric medication. She also requests to return to [facility]. LUCIUS Hatch has scheduled [...] sxs. She is engage in MH at [facility] with therapist Aminata Botlon. I will submit referral to [facility] for Psychiatrist services. Provided education around [...] treatmetn engagement. PLAN: 1. Follow up with [facility]: Not recommended for follow-up 2. Patient goal is to become mentally stable and work on her sobriety 3. Behavioral Recommendations a. Remind engage in MH services with [facility] b. Referral to [facility] for Psychiatrist services c. [facility] contact information for support. 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 Last seen in December 2022 - CAD, remote non-STEMI on 10/29, reported moderate CAD - History of DVT and likely PEA at [facility], on apixaban and 12 contrast allergy with anaphylaxis. 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 Last seen in December 2022 - CAD, remote non-STEMI on 10/29, reported moderate CAD - History of DVT and likely PEA at [facility], on apixaban and 12 contrast allergy with anaphylaxis. 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 Last seen in December 2022 - CAD, remote non-STEMI on 10/29, reported moderate CAD - History of DVT and likely PEA at [facility], on apixaban and 12 contrast allergy with anaphylaxis. Assessment & Plan (12/22/2022 5:36 AM EDT): -Display Maker: Umesh Forrester, last seen in Sep 2021 -Hx mild CAD, last cardiac cath on 03/06/20 -continue ARB and statin -continue working on lifestyle modification -not on ASA since she started taking Eliquis for PE -previously on propranolol for ARCEO, but no longer taking it due to Hx hypotension -follow-up with porcelain finish sprayer as scheduled Assessment & Plan (09/04/2022 12:05 PM EST): -Display Maker: [employer] Dr. Forrester, last seen in Sep 2021 -Hx mild CAD, last cardiac cath on 03/06/20 -continue ARB and statin -continue working on lifestyle modification -not on ASA since she started taking Eliquis for PE -previously on propranolol for ARCEO, but no longer taking it due to Hx hypotension -follow-up with porcelain finish sprayer as scheduled Tobacco use 08/30/2022 Assessment & Plan (02/12/2025 10:52 AM EDT): - work on smoking cessation - refer to lung cancer screening program - Pt states she has stopped smoking cigarettes for the past 6 weeks. Noting she has only smoked 2 or 3 cigarettes in this timeframe. Assessment & Plan (01/14/2025 11:16 AM EDT): - work on smoking cessation - refer to lung cancer screening program Assessment & Plan (08/25/2023 7:09 PM EST): - work on smoking cessation - refer to lung cancer screening program Recurrent kidney stones 08/19/2022 Assessment & Plan (01/14/2025 11:13 AM EDT): Urologist: [facility], Dr. Duran, last seen in Aug 2021 S/p right ESWL on 01/29/20 S/p left cystoscopy, retrograde laser and stent on 02/28/20 S/p removal on 04/07/21 S/p cystoscopy and ureteroscopy on 08/23/21 Drink water > 2L / day Assessment & Plan (12/22/2022 5:58 AM EDT): [facility], last seen in Aug 2021 S/p right ESWL on 01/29/20 S/p left cystoscopy, retrograde laser and stent on 02/28/20 S/p removal on 04/07/21 S/p cystoscopy and ureteroscopy on 08/23/21 Drink water > 2L / day Assessment & Plan (09/04/2022 12:06 PM EST): Urologist: Dr. Roger Boyd, last seen in Aug 2021 S/p right ESWL on 01/29/20 S/p left cystoscopy, retrograde laser and stent on 02/28/20 S/p removal on 04/07/21 S/p cystoscopy and ureteroscopy on 08/23/21 Drink water > 2L / day Assessment & Plan (08/19/2022 10:40 AM EST): [facility], last seen in Aug 2021 S/p right ESWL on 01/29/20 S/p left cystoscopy, retrograde laser and stent on 02/28/20 S/p removal on 04/07/21 S/p cystoscopy and ureteroscopy on 08/23/21 Drink water > 2L / day Neurogenic bladder 08/19/2022 Overview (08/19/2022): Followed by urologist History of pulmonary embolism 08/19/2022 Overview (08/19/2022): Hx DVT and PE in 2019, unprovoked Eliquis since 2019 Asthma 08/02/2022 Assessment & Plan (01/19/2025 10:34 PM EDT): - Change Flovent to Asmanex - Continue albuterol HFA and neb prn Assessment & Plan (08/25/2023 6:52 PM EST): - Change Flovent to Asmanex - Continue albuterol HFA and neb prn Mood disorder 08/02/2022 Assessment & Plan (02/12/2025 9:04 AM EDT): Current Dx: Bipolar disorder, sometimes she is diagnosed with MDD. Occasionally with [place] due to borderline tendency and conversion disorder Hx suicide attempt several times (one time overdosed insulin) [facility] provider: Dr. Abi Thomason is psychiatrist, previously Albina Duff was her therapist. Encouraged to reach out to her [facility] therapist and psychiatrist for her concerns and medication management She was able to contract her safety today Assessment & Plan (01/14/2025 11:14 AM EDT): Current Dx: Bipolar disorder, sometimes she is diagnosed with MDD. Occasionally with [place] due to borderline tendency and conversion disorder Hx suicide attempt several times (one time overdosed insulin) [facility] provider: Dr. Abi Thomason is psychiatrist, previously Albina Duff was her therapist. Encouraged to reach out to her [facility] therapist and psychiatrist for her concerns and medication management She was able to contract her safety today Assessment & Plan (08/25/2023 7:11 PM EST): Current Dx: Bipolar disorder, sometimes she is diagnosed with MDD. Occasionally with [place] due to borderline tendency and conversion disorder Hx suicide attempt several times (one time overdosed insulin) [facility] provider: Dr. Abi MCDONNELL is psychiatrist, previously Albina Duff was her therapist. Encouraged to reach out to her [facility] therapist and psychiatrist for her concerns and medication management She was able to contract her safety today Assessment & Plan (09/04/2022 12:10 PM EST): Current Dx: Bipolar disorder, sometimes she is diagnosed with MDD. Occasionally with [place] due to borderline tendency and conversion disorder [facility] provider: Dr. Abi MCDONNELL is psychiatrist, Albina Duff has been her therapist. Encouraged to reach out to her [facility] therapist and psychiatrist for her concerns and medication management She was able to contract her safety today Assessment & Plan (08/19/2022 11:13 AM EST): Current Dx: Bipolar disorder, sometimes she is diagnosed with MDD. Occasionally with [place] due to borderline tendency and conversion disorder [facility] provider: [facility], Dr. Alex is psychiatrist, Albina Duff has been her therapist. Encouraged to reach out to her [facility] therapist and psychiatrist for her concerns and medication management She was able to contract her safety today Cervical dysplasia 08/02/2022 Cocaine use disorder 08/02/2022 H/O: attempted suicide 08/02/2022 Substance use disorder 08/02/2022 Opioid use disorder 08/02/2022 Coronary artery disease 09/26/2018 Type 2 diabetes mellitus with hyperglycemia 09/11 Overview (01/13/2025): >>OVERVIEW FOR TYPE 2 DIABETES MELLITUS, WITH LONG-TERM CURRENT USE OF INSULIN ([facility]) WRITTEN ON 03/15/2023 10:18 AM BY SNEHA [...] modifications -Continue current medications Assessment & Plan (02/12/2025 9:03 AM EDT): Hgb A1C 12.6% 01/14/25, slight increase from 12.4% on 08/08/23. Continue working on lifestyle modifications Continue checking BG; discussed about CGM, pt will consider Improve medication adherence Continue basal insulin, Tresiba, increase from 20 units to 26 units at bedtime Continue metformin ER 1000 mg bid Discussed about SGLT-2 inhibitor, but pt has frequent urinary symptoms (MS, recurrent nephrolithiasis); therefore, will hold off at this time Treatment Hx: Trulicity was discontinued in March 2022 when pt developed pancreatitis. Microalbumin test: 01/14/25 Lipid profile: 01/14/25 Diabetic eye exam: Up coming eye appointment in February with [facility] Foot exam: 01/14/25 Neuropathy; callus; previously written a script for diabetic footwear. She did not go to [employer]. Referred to public health dentist Assessment & Plan (01/19/2025 10:36 PM EDT): Hgb A1C 12.6% 01/14/25, slight increase from 12.4% on 08/08/23. Continue working on lifestyle modifications Continue checking BG; discussed about CGM, pt will consider Improve medication adherence Continue basal insulin, Tresiba, increase from 20 units to 26 units at bedtime Continue metformin ER 1000 mg bid Discussed about SGLT-2 inhibitor, but pt has frequent urinary symptoms (MS, recurrent nephrolithiasis); therefore, will hold off at this time Treatment Hx: Trulicity was discontinued in March 2022 when pt developed pancreatitis. Microalbumin test: 01/14/25 Lipid profile: 01/14/25 Diabetic eye exam: Up coming eye appointment in February with [facility] Foot exam: 01/14/25 Neuropathy; callus; previously written a script for diabetic footwear. She did not go to [employer]. Referred to public health dentist Assessment & Plan (01/13/2025 9:51 PM EDT): >>ASSESSMENT AND PLAN FOR TYPE 2 DIABETES MELLITUS, WITH LONG-TERM CURRENT USE OF INSULIN ([facility]) WRITTEN ON 08/25/2023 7:08 PM BY TYESHA [...] profile: 04/04/22 Diabetic eye exam: Referred to [facility] in the past; will check its status Foot exam: 08/08/23 Neuropathy; callus; previously written a script for diabetic footwear. She did not go to [employer]. Will refer to public health dentist Assessment & Plan (01/13/2025 9:51 PM EDT): >>ASSESSMENT AND PLAN FOR TYPE 2 DIABETES MELLITUS WITH HYPERGLYCEMIA (CMS/HCC) WRITTEN ON 09/27/2023 6:06 AM BY TYESHA [...] profile: 04/04/22 Diabetic eye exam: Referred to [facility] in the past; will check its status Foot exam: 08/08/23 Neuropathy; callus; previously written a script for diabetic footwear. She did not go to [employer]. Will refer to public health dentist >>ASSESSMENT AND PLAN FOR TYPE 2 DIABETES MELLITUS, WITH LONG-TERM CURRENT USE OF INSULIN ([facility]) WRITTEN ON 09/27/2023 6:06 AM BY TYESHA [...] profile: 04/04/22 Diabetic eye exam: Referred to [facility] care in the past; will check its status Foot exam: 08/08/23 Neuropathy; callus; previously written a script for diabetic footwear. She did not go to [employer]. Will refer to public health dentist Assessment & Plan (12/22/2022 5:56 AM EDT): Hgb A1C 12.6% on 08/30/22, 15% on 08/18/22 Continue working on lifestyle modifications Continue checking BG Improve medication adherence Continue basal insulin, Lantus, 25 units at bedtime Continue metformin ER 1000 mg bid Discussed about SGLT-2 inhibitor, but pt has frequent urinary symptoms (MS, recurrent nephrolithiasis); therefore, will hold off at this time Treatment Hx: Trulicity was discontinued in March 2022 when pt developed pancreatitis. Microalbumin test: 04/04/22 No microalbuminuria Lipid profile: 04/04/22 Diabetic eye exam: Referred to [facility] care in the past; will check its status Foot exam: 08/18/22 Neuropathy; callus; written a script for diabetic footwear. Assessment & Plan (10/03/2022 9:45 PM EST): Hgb A1C 12.6% on 08/30/22, 15% on 08/18/22 Continue working on lifestyle modifications Continue checking BG Improve medication adherence Continue basal insulin, Lantus, 25 units at bedtime Change metformin IIR to ER 1000 mg bid Discussed about SGLT-2 inhibitor, but pt has frequent urinary symptoms (MS, recurrent nephrolithiasis); therefore, will hold off at this time Treatment Hx: Trulicity was discontinued in March 2022 when pt developed pancreatitis. Microalbumin test: 04/04/22 No microalbuminuria Lipid profile: 04/04/22 Diabetic eye exam: Referred to [facility] care in the past; will check its status Foot exam: 08/18/22 Neuropathy; callus; written a script for diabetic footwear. Assessment & Plan (09/04/2022 12:08 PM EST): Hgb A1C 15% on 08/18/22, 11.7% in Apr 2022 Continue working on lifestyle modifications Continue checking BG Improve medication adherence Continue basal insulin, Lantus, 25 units at bedtime Continue metformin ER 1000 mg bid Discussed about SGLT-2 inhibitor, but pt has frequent urinary symptoms (MS, recurrent nephrolithiasis); therefore, will hold off at this time Treatment Hx: Trulicity was discontinued in March 2022 when pt developed pancreatitis. Microalbumin test: 04/04/22 No microalbuminuria Lipid profile: 04/04/22 Diabetic eye exam: Referred to [facility] Eye care in the past; will check its status Foot exam: 08/18/22 Neuropathy; callus; written a script for diabetic footwear. Assessment & Plan (01/13/2025 9:51 PM EDT): >>ASSESSMENT AND PLAN FOR TYPE 2 DIABETES MELLITUS WITH HYPERGLYCEMIA ([facility]) WRITTEN ON 08/19/2022 10:52 AM BY TYESHA [...] profile: 04/04/22 Diabetic eye exam: Referred to [facility] Eye care in the past; will check its status Foot exam: 08/18/22 Neuropathy; callus; will write a script for diabetic footwear. >>ASSESSMENT AND PLAN FOR TYPE 2 DIABETES MELLITUS, WITH LONG-TERM CURRENT USE OF INSULIN ([facility]) WRITTEN ON 08/19/2022 10:52 AM BY TYESHA [...] profile: 04/04/22 Diabetic eye exam: Referred to [facility] Eye care in the past; will check its status Foot exam: 08/18/22 Neuropathy; callus; will write a script for diabetic footwear. Dyslipidemia 08/29/2018 Overview (03/15/2023): Lab Results Component Value Date CHOLESTEROL 222 (H) 04/04/2022 LDLCHOL 124 (H) 04/04/2022 LDLCHOL 85 03/04/2022 LDLCHOL 131 (H) 08/27/2021 HDLCHOL 62 04/04/2022 CHOLHDLRAT 3.6 04/04/2022 -continue lifestyle modifications Assessment & Plan (02/12/2025 9:02 AM EDT): Current medication: atorvastatin 40 mg at bedtime Last lipid profile: 01/14/25 Continue current medication and lifestyle modification Assessment & Plan (01/15/2025 10:55 PM EDT): Current medication: atorvastatin 40 mg at bedtime Last lipid profile: 01/14/25 Continue current medication and lifestyle modification Assessment & Plan (08/25/2023 7:11 PM EST): Current medication: atorvastatin 40 mg at bedtime Last lipid profile: 04/04/22 TC 222; TG 215; HDL 62; LDL 124 Continue current medication and lifestyle modification Assessment & Plan (12/22/2022 5:57 AM EDT): Current medication: atorvastatin 40 mg at bedtime Last lipid profile: 04/04/22 TC 222; TG 215; HDL 62; LDL 124 Continue current medication and lifestyle modification Assessment & Plan (08/19/2022 11:15 AM EST): Current medication: atorvastatin 40 mg at bedtime Last lipid profile: 04/04/22 TC 222; TG 215; HDL 62; LDL 124 Continue current medication and lifestyle modification Hypertension 07/05/2017 Overview (03/15/2023): -Blood pressure is at goal -Continue lifestyle modifications -Continue current medications Assessment & Plan (02/27/2025 6:53 PM EDT): -Goal BP <130/80 per ACC/AHA. -BP not at goal today; pt attributes it to pain -Questionable medication adherence; discrepancy in med refill Hx per pharmacist -Continue Loasartan 100 mg daily -Continue amlodipine 10 mg daily -Pt is also prescribed prazosin. -Pt was prescribed propanolol for anxiety and headache in the past, but pt has not been taking because pt developed hypotension -Cont working on lifestyle modifications -follow-up in 3 mo or sooner if any problem arises -refer to CDTM and MTM Assessment & Plan (01/14/2025 11:41 AM EDT): [...] Assessment & Plan (12/22/2022 5:56 AM EDT): Multifactorial Continue pregabalin Assessment & Plan (10/03/2022 9:47 PM EST): Multifactorial Continue pregabalin Chronic low back pain 03/31/2017 Assessment & Plan (01/14/2025 11:14 AM EDT): Continue pregabalin Continue lidocaine patch. Anticipating to start PT/OT Assessment & Plan (10/03/2022 9:46 PM EST): Continue pregabalin Continue lidocaine patch. Anticipating to start PT/OT Assessment & Plan (09/04/2022 12:09 PM EST): Improved with pregabalin. Continue at current dose. Anticipating to start PT/OT Assessment & Plan (08/19/2022 11:14 AM EST): Agreed to re-try pregabalin 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 Assessment & Plan (09/04/2022 12:09 PM EST): -improving -avoid irritation and manage anxiety Multiple sclerosis 03/28/2017 Assessment & Plan (02/12/2025 9:05 AM EDT): Neurologist: [facility], last seen in Jun 2023 Current medication: Octrevus, started in May 2022 Flare-up frequency > 2x / year Last flare-up in Jun 2020, hospitalized in [facility], dexamathasone was not given due to concern for PML Last imaging studies: MRI brain / cervical spine in Jun 2024 at [facility] Followed by urologist for neurogenic bladder, recurrent UTI and recurrent kidney stone Treatment Hx: -Tysabri (Natalizumab) q4wks, 03/2020-05/2022 (Interruption due to concern for PML 06/2020-11/2020) -Gabapentin, pregabalin for pain, but discontinued due to side effect and ineffectiveness Pt was recommended to check with neurology office for MRI appt Assessment & Plan (01/19/2025 10:32 PM EDT): Neurologist: [facility], last seen in Jun 2023 Current medication: Octrevus, started in May 2022 Flare-up frequency > 2x / year Last flare-up in Jun 2020, hospitalized in [facility], dexamathasone was not given due to concern for PML Last imaging studies: MRI brain / cervical spine in Jun 2024 at [facility] Followed by urologist for neurogenic bladder, recurrent UTI and recurrent kidney stone Treatment Hx: -Tysabri (Natalizumab) q4wks, 03/2020-05/2022 (Interruption due to concern for PML 06/2020-11/2020) -Gabapentin, pregabalin for pain, but discontinued due to side effect and ineffectiveness Pt was recommended to check with neurology office for MRI appt Assessment & Plan (09/27/2023 6:08 AM EST): Neurologist: [facility], last seen in Jun 2023 Current medication: Octrevus, started in May 2022 Flare-up frequency > 2x / year Last flare-up in Jun 2020, hospitalized in [facility], dexamathasone was not given due to concern for PML Last imaging studies: MRI brain / cervical spine in Apr 2022 at [facility] Followed by urologist for neurogenic bladder, recurrent UTI and recurrent kidney stone Treatment Hx: -Tysabri (Natalizumab) q4wks, 03/2020-05/2022 (Interruption due to concern for PML 06/2020-11/2020) -Gabapentin, pregabalin for pain, but discontinued due to side effect and ineffectiveness Pt was recommended to check with neurology office for MRI appt Assessment & Plan (08/25/2023 6:51 PM EST): Neurologist: [facility], last seen in Jun 2023 Current medication: Octrevus, started in May 2022 Flare-up frequency > 2x / year Last flare-up in Jun 2020, hospitalized in [facility], dexamathasone was not given due to concern for PML Last imaging studies: MRI brain / cervical spine in Apr 2022 at [facility] Followed by urologist for neurogenic bladder, recurrent UTI and recurrent kidney stone Treatment Hx: -Tysabri (Natalizumab) q4wks, 03/2020-05/2022 (Interruption due to concern for PML 06/2020-11/2020) -Gabapentin, pregabalin for pain, but discontinued due to side effect and ineffectiveness Pt was recommended to check with neurology office for MRI appt Assessment & Plan (12/22/2022 5:55 AM EDT): Neurologist: [facility], last seen on 12/20/22 Current medication: Octrevus, started in May 2022, 2nd dose scheduled on 12/31/22 Flare-up frequency > 2x / year Last flare-up in Jun 2020, hospitalized in [facility], dexamathasone was not given due to concern for PML Last imaging studies: MRI brain / cervical spine in Apr 2022 at [facility] Followed by urologist for neurogenic bladder, recurrent UTI and recurrent kidney stone Treatment Hx: Tysabri (Natalizumab) q4wks, 03/2020-05/2022 (Interruption due to concern for PML 06/2020-11/2020) Copaxone (weight gain), aubagio (wt gain and hair loss), Gabapentin, pregabalin for pain, but discontinued due to side effect and ineffectiveness Assessment & Plan (10/03/2022 5:51 AM EST): Neurologist: [facility], last seen on 05/12/22 Current medication: Octrevus, started in May 2022 Flare-up frequency > 2x / year Last flare-up in Jun 2020, hospitalized in [facility], dexamathasone was not given due to concern for PML Last imaging studies: MRI brain / cervical spine in Apr 2022 at [facility] Followed by urologist for neurogenic bladder, recurrent UTI and recurrent kidney stone Treatment Hx: Tysabri (Natalizumab) q4wks, 03/2020-05/2022 (Interruption due to concern for PML 06/2020-11/2020) Gabapentin, pregabalin for pain, but discontinued due to side effect and ineffectiveness Assessment & Plan (08/19/2022 11:02 AM EST): Neurologist: [facility], last seen on 04/08/22 Current medication: Octrevus, started in May 2022 Flare-up frequency > 2x / year Last flare-up in Jun 2020, hospitalized in [facility], dexamathasone was not given due to concern for PML Last imaging studies: MRI brain / cervical spine in Apr 2022 at [facility] Followed by urologist for neurogenic bladder, recurrent UTI and recurrent kidney stone Treatment Hx: Tysabri (Natalizumab) q4wks, 03/2020-05/2022 (Interruption due to concern for PML 06/2020-11/2020) Gabapentin, pregabalin for pain, but discontinued due to side effect and ineffectiveness Posttraumatic stress disorder 03/28/2017 Assessment & Plan (01/14/2025 11:16 AM EDT): -will check the status of [facility] Assessment & Plan (09/04/2022 12:10 PM EST): -will check the status of S Resolved Problems Problem Noted Date Diagnosed Date Resolved Date Dysmenorrhea 01/29/2025 02/27/2025 Acute hyperglycemia 06/26/2024 01/20/20 25 Assessment & Plan (06/26/2024 12:15 PM EDT): EMS called, patient presented to YORDAN Garcia to the [facility] emergency department Daytime somnolence 12/19/2018 2 Encounters * This document contains information received from the source organization and may not represent a complete record from that organization. Date Type Department Care Team Description 05/23/2025 1:20 PM EDT Office Visit [facility] [address] [place] [address] [phone] Primary hypertension (Primary Dx); Type 2 diabetes mellitus with hyperglycemia, with long-term current use of insulin ([facility]); Soft tissue infection; Recurrent chest pain; Sprain of right ankle, unspecified ligament, initial encounter 05/23/[address] [phone] Tyesha Houston MD 05/23/[address] [address] Tyesha Houston MD Telephone Call 05/23/2025 Travel 05/15/[address] [phone] [place], [place] [place] [facility] Moderate persistent asthma without complication 05/14/2025 Patient Outreach [address] [address] Tyesha Houston MD 05/08/2025 Patient Outreach [address] [phone] Tyesha Houston MD Care Management (C3CM- F/U call # 3) 05/07/2025 Patient Outreach [facility] [address] [place], [place] [phone] Tyesha Houston MD Transition Of Care (Tcm) (HDF scheduled. ) 05/07/[address] [address] Tyesha Houston MD Hospital Follow-up 05/01/2025 Telephone [facility] [place] [address] Tyesha Houston MD Call Back Request 04/29/2025 Patient Outreach [facility] [place] [address] Tyesha Houston MD 04/28/2025 Patient Outreach [facility] [place] [address] Tyesha Houston MD Care Management (C3CM- F/U call # 2) 04/23/2025 Orders Only [facility] [place] [address] Tyesha Houston MD 04/23/2025 Orders Only GENERIC EXTERNAL DATA DEPARTMENT Provider, Generic External Data 04/22/2025 Orders Only GENERIC EXTERNAL DATA DEPARTMENT Provider, Generic External Data 04/21/2025 Orders Only [facility] External Provider, [facility] 04/18/2025 Patient Outreach [facility] [place] [address] Pierre Navarrete [facility] Recovery Supports 04/17/2025 Patient Outreach [facility] Bhupinder [facility] [place] [address] Jovan Berumen [facility] Recovery Supports 04/15/2025 Telephone [facility] Bhupinder [facility] [place] [address] Neha Mondragon, [employer] Follow-up 04/14/2025 Telephone [facility] Bhupinder [facility] [place] [address] Tyesha Houston MD ER Follow-up; Nurse Triage 04/14/2025 Refill [facility] Buhpinder [place] [address] Tyesha Houston MD Type 2 diabetes mellitus with hyperglycemia (CMS/HCC); Type 2 diabetes mellitus with hyperglycemia, with long-term current use of insulin (CMS/HCC) 04/14/2025 Telephone [facility] Bhupinder [facility] [place] [address] Tyesha Houston MD 04/10/[address] [address] Tyesha Houston MD Nurse Triage 04/01/2025 Patient Outreach [address] [address] Andrew Garcia [facility] Recovery Supports 03/31/2025 Patient Outreach [address] [address] Esmer Molina RC Recovery Supports 03/31/2025 Patient Outreach [address] [address] Jovan Berumen [facility] Recovery Supports 03/26/[address] [address] Tyesha Houston MD 03/25/2025 Patient Outreach [address] [address] Andrew Garcia [facility] Recovery Supports 03/20/2025 Patient Outreach [address] [address] Esmer Molina RC Recovery Supports 03/19/2025 Patient Outreach [address] [address] Tyesha Houston MD Care Management (C3- Follow up # 2/LVM) 03/18/[address] [address] Penelope Deal FNP CHART PREP 03/17/[address] [address] Tyesha Houston MD Reschedule (Called pt to reschedule pap appointment 03/19/2025 @10:45. Due to receiving a call that pt requested to have apt changed ! PT didn't answer message was left ! ) 03/13/2025 2:40 PM EDT Office Visit [facility] [address] [address] Kinjal Ch MD Acute chest pain (Primary Dx); High risk of cardiac event 03/13/2025 Telephone [facility] [address] [address] Tyesha Houston MD Error (VOID this visit) 03/13/2025 Travel 03/11/[address] [address] Tyesha Houston MD Appointment Request 03/11/2025 Patient Outreach [address] [address] Tyesha Houston MD Care Coordination 03/06/[address] [address] Tyesha Houston MD 03/04/2025 Patient Outreach [address] [address] Tyesha Houston MD Care Management (C3CM- Follow up call # 2/LVM) 03/01/2025 Telephone [facility] [address] [place] [address] Tyesha Houston MD Order for mammo 02/28/2025 Results Follow-Up [address] [address] Penelope Deal FNP Bacterial Vaginosis Panel, Chlamydia/N. Gonorrhoeae RNA, TMA, Urogenitial 02/28/2025 Patient Outreach [address] [address] Tyesha Houston MD 02/26/2025 10:00 AM EDT Office Visit [address] [address] Wojciech Hodges MD Substance use disorder (Primary Dx) 02/26/2025 9:00 AM EDT Office Visit [address] [address] Penelope Deal FNP Vaginal discharge (Primary Dx); PID (acute pelvic inflammatory disease); Screening examination for venereal disease 02/26/2025 Patient Outreach [address] [address] Tyesha Houston MD 02/26/2025 Travel 02/25/[address] [phone] Penelope Deal FNP Chart Prep 02/24/2025 Telephone [facility] [address] [facility] [place] [address] Tyesha Houston MD Nurse Triage 02/21/2025 Orders Only [facility] [address] [facility] [place] [address] Tyesha Houston MD 02/20/2025 Telephone [facility] [address] [facility] [place] [address] Tyesha Houston MD Med Refill from Last 3 Months Immunizations Immunization Administration Dates Next Due Hep B, adult [...] (170 lb) 05/23/2025 1:11 PM EDT Height 157.5 cm (5' 2 ) 02/26/2025 9:12 AM EDT Body Mass Index 31.09 02/26/2025 9:12 AM EDT Plan of Treatment Upcoming Encounters Date Type Department Care Team (Late st Contact Info) Description 06/02/2025 9:00 AM EDT Office Visit [facility] [address] [place] [address] Tyesha Houston MD [address] [place] [address] 06/24/2025 9:00 AM EDT Office Visit [facility] [address] [place] [address] Raf, Katharine, OD [address] [place] [address] Health Maintenance Due Date Last Done Comments CT Colonography 1972 Colonoscopy 1972 Colorectal Cancer Screening 1972 FIT DNA/Cologuard 1972 FIT 1972 FOBT 1972 Sigmoidoscopy 1972 Eye Exam 1982 Family Planning (PISQ) 12/22/1987 Pap Smear 1993 Mammogram 07/24/2022 07/24/2020, 07/12, 07/24/2020, Additional history exists Zoster Vaccines (1 of 2) 2022 Diabetes: Hemoglobin A1C 04/16/2025 025, 08/20/2024, 08/08/2023, Additional history exists COVID-19 Vaccine (6 - 2025-26 season) 2025 10/28/2022, 03/04/2022, 03/04/2022, Additional history exists Influenza Vaccine (#1) 2025 , 07/23/2021, 07/23/2021, Additional history exists Depression Monitoring 07/02/2025 12/31/2024, 025 Cervical Cancer Screening 08/25/2025 HPV/Cotest 08/25/2025 08/25/2020, 04/24/2019 Alcohol/Substance Use Screening 01/14/2026 01/14/2025 Diabetes: Foot Exam 01/14/2026 01/14/2025, 01/14/2025, 01/14/2025, Additional history exists Diabetes: Urine Protein Screening 01/14/2026 01/14/2025, 08/08/2023, 04/04/2022, Additional history exists Disability Screening 01/14/2026 01/14/2025 Lipid Panel 01/14/2026 01/14/2025, 07/13, 04/04/2022, Additional history exists SDOH Screening 01/14/2026 01/14/2025 Tobacco Screening 03/13/2026 03/13/2025 DTaP/Tdap/Td Vaccines (4 - Td or Tdap) 06/08/2027 06/08/2017, 11/16/2016, 11/23/2015, Additional history exists RSV Patients and Patients Aged 60 years or older (1 - 1-dose 75+ series) 12/22/2047 Hepatitis B Vaccines Completed 04/24/2019, 12/04/2018, 09/21/2018, Additional history exists HIV Screening Completed 01/14/2025, 08/11, 03/04/2022, Additional history exists Hepatitis C Screening Completed 01/14/2025 , 08/20/2024, 03/04/2022, Additional history exists Pneumococcal Vaccine: 50+ Years Completed 01/14/2025, 05/18/2016, [...] hyperglycemia, with long-term current use of insulin ([facility]) GLUCOSE, WHOLE BLOOD Routine 04/23/2025 11:53 AM EDT GLUCOSE, WHOLE BLOOD Routine 04/23/2025 11:21 AM EDT GLUCOSE, WHOLE BLOOD Routine 04/23/2025 10:52 AM EDT GLUCOSE, WHOLE BLOOD Routine 04/23/2025 7:39 AM EDT GLUCOSE, WHOLE BLOOD Routine 04/23/2025 6:35 AM EDT GLUCOSE, WHOLE BLOOD Routine 04/23/2025 2:27 AM EDT GLUCOSE, WHOLE BLOOD Routine 04/22/2025 10:36 PM EDT GLUCOSE, WHOLE BLOOD Routine 04/22/2025 7:56 PM EDT GLUCOSE, WHOLE BLOOD Routine 04/22/2025 5:49 PM EDT GLUCOSE, WHOLE BLOOD Routine 04/22/2025 12:19 PM EDT SARS COV2/INFLUENZA A/B AND RSV RNA QL NAAT Routine 04/22/2025 8:43 AM EDT GLUCOSE, WHOLE BLOOD Routine 04/22/2025 7:05 AM EDT GLUCOSE, WHOLE BLOOD Routine 04/22/2025 12:47 AM EDT C-REACTIVE PROTEIN Routine 04/21/2025 8: 59 PM EDT COMPREHENSIVE METABOLIC PANEL Routine 04/21/2025 8:59 PM EDT CBC WITH AUTO DIFFERENTIAL Routine 04/21/2025 8:59 PM EDT XR RIBS 3 VIEWS LEFT W CHEST Routine 04/21/2025 7:31 PM EDT XR ANKLE 3+ VIEWS RIGHT Routine 04/21/2025 6:54 PM EDT XR HIP 2 OR 3 VIEWS LEFT Routine 04/21/2025 6:[address] CERVICAL SPINE WO CONTRAST Routine 04/21/2025 6:[address] HEAD WO CONTRAST Routine 04/21/2025 6 :38 PM EDT POCT WET MOUNT/ARELY Routine 02/26/2025 11 :10 AM EDT Vaginal discharge CHLAMYDIA/N. GONORRHOEAE RNA, TMA, UROGENITAL Routine 02/26/2025 12:00 AM EDT Screening examination for venereal disease BACTERIAL VAGINOSIS PANEL Routine 02/26/2025 12:00 AM EDT Vaginal discharge HEPATITIS C AB W/REFL TO HCV RNA, QN, PCR Routine 01/14/2025 11:56 AM EDT Routine screening for STI (sexually transmitted infection) HIV 1/2 ANTIGEN/ANTIBODY, FOURTH GENERATION W/RFL Routine 01/14/2025 11:56 AM EDT Routine screening for STI (sexually transmitted infection) ALBUMIN, RANDOM URINE W/CREATININE Routine 01/14/2025 11:56 AM EDT Type 2 diabetes mellitus with hyperglycemia, with long-term current use of insulin ([facility]) Dyslipidemia LIPID PANEL WITH REFLEX TO DIRECT LDL Routine 01/14/2025 11:56 AM EDT Type 2 diabetes mellitus with hyperglycemia, with long-term current use of insulin ([facility]) Dyslipidemia POCT GLYCOSYLATED HEMOGLOBIN (HGB A1C) Routine 01/14/2025 10:57 AM EDT Type 2 diabetes mellitus with hyperglycemia, with long-term current use of insulin ([facility]) ZZZ HISTORICAL HPV E6/E7 RFLX VENU 16 Routine 08/25/2020 11:45 AM EST MAMMOGRAM GENERIC Routine 07/24/2020 10: 40 AM EST from Last 3 Months or Most Recently Relevant to Health Maintenance Results * (ABNORMAL) POCT glucose manually resulted (05/23/2025 2:18 PM EDT) Glucose Blood, POC 385(A) 60 - 200 mg/dL Blood Capillary blood specimen / Unknown 05/23/2025 2:18 PM EDT [facility] [place] POINT OF CARE TEST ENTER/EDIT ORDERABLES Final Result * (ABNORMAL) Glucose, Whole Blood (04/23/2025 11:53 AM EDT) Only the most recent of12 resultswithin the time period is included. Glucose, Whole Blood 378(HH) 60 - 115 mg/dL [facility] Comment:METER #: [id number] 04/23/2025 11:5 3 AM EDT 04/23/2025 11:57 AM EDT Generic External Data Provider LAB BLOOD ORDERAB LES Final Result Performing Organization Address City/[facility] Co de Phone Number [facility] [address] [place] [phone] * SARS-CoV-2 RNA, Influenza A/B, and RSV RNA, Ql NAAT (04/22/2025 8:43 AM EDT) Influenza A PCR NEGATIVE Negative [facility] Influenza B PCR NEGATIVE Negative [facility] Resp Syncy Virus RNA Qual PCR NEGATIVE Negative [facility] SARS COV2 PCR NEGATIVE Negative [facility] Comment:All test results mus t be correlated with clinical findings.Negative results do not preclude SARS-CoV2, influenza Avirus, influenza B virus and/or RSV infectionand should not be used as the sole basis for treatment orother patient management decisions. Negative results must becombined with clinical observations, patient history, andepidemiological information.This test has not been evaluated for monitoring treatment ofinfection.This test has been authorized by the FDA under an EmergencyUse Authorization (EUA) for use by authorized laboratories.Testing performed on the N-1-1 GeneXpert utilizingreal-time RT-PCR.All SARS CoV2 and positive influenza A/B results arereported to [facility]. 04/22/2025 8:43 AM EDT 04/22/2025 8:45 AM EDT Generic External Data Provider LAB MICROBIOLOGY - GENERAL ORDERABLES Final Result Performing Organization Address [facility] Co de Phone Number [facility] [address] [place] [phone] * (ABNORMAL) CBC auto differential (04/21/2025 8:59 PM EDT) White Blood Count 6.9 4.8 - 10.8 X10*3/uL [facility] Red Blood Count 4.88 4.20 - 5.50 X10*6/uL [facility] Hemoglobin 14.2 12.0 - 16.0 g/dl [facility] Hematocrit 41.7 37.0 - 47.0 % [facility] Mean Corpuscular Volume 85.5 80.0 - 98.0 fL [facility] Mean Corpuscular Hemoglobin 29.1 27.0 - 33.0 pg [facility] Mean Corpuscular HGB Conc 34.1 31.0 - 35.0 g/dl [facility] Red Cell Distribution Width 12.4 11.0 - 16.0 % [facility] Platelet Count 225 160 - 400 X10*3/uL [facility] Mean Platelet Volume 10.0 9.4 - 12.3 fL [facility] Neutrophils Percent Auto 55.9 45 - 73 % [facility] Imm Gran Pct Auto 0.4 0.0 - 0.4 % [facility] Lymphocytes Percent Auto 31.2 20 - 40 % [facility] Monocytes Percent Auto 6.6 2 - 11 % [facility] Eosinophils Percent Auto 4.9(H) 0 - 4 % [facility] Basophils Percent Auto 1.0 0 - 2 % [facility] NRBC Pct Auto 0.0 0.0 - 0.2 /100WBC [facility] Neutrophils Absolute Auto 3.9 2.0 - 8.3 x10*3/uL [facility] Imm Gran Abs Auto 0.03 0.00 - 0.03 X10*3/uL [facility] Lymphocytes Absolute Auto 2.2 1.2 - 4.9 X10*3/uL [facility] Monocytes Absolute Auto 0.5 0.1 - 1.2 X10*3/uL [facility] Eosinophils Absolute Auto 0.3 0.0 - 0.4 X10*3/uL [facility] Basophils Absolute Auto 0.1 0.0 - 0.2 X10*3/uL [facility] NRBC Abs Auto 0.000 0.0 - 0.012 X10*3/uL [facility] 04/21/2025 8:59 PM EDT 04/21/2025 9:09 PM EDT us Generic External Data Provider LAB BLOOD ORDERAB LES Final Result Performing Organization Address [facility]/ZIP Co de Phone Number [facility] [address] [place] [phone] * C-reactive Protein (04/21/2025 8:59 PM EDT) C Reactive Protein 0.21 < or = 0.50 mg/dL [facility] 04/21/2025 8:59 PM EDT 04/21/2025 9:09 PM EDT us Generic External Data Provider LAB BLOOD ORDERAB LES Final Result Performing Organization Address [facility] Co de Phone Number [facility] [address] [place] [phone] * (ABNORMAL) Comprehensive Metabolic Panel (04/21/2025 8:59 PM EDT) Pathologist [facility] Sodium 136 135 - 145 mmol/L [facility] Potassium 3.9 3.3 - 5.1 mmol/L [facility] Chloride 105 96 - 108 mmol/L [facility] Carbon Dioxide 23 22 - 29 mmol/L [facility] Anion Gap 12 12 - 20 [facility] Urea Nitrogen (BUN) 13 9 - 16 mg/dL [facility] Creatinine, Serum 0.71 0.5 - 1.4 mg/dL [facility] Creatinine Clr Calc Pharmacy 86.7 [facility] Comment:Provided height and weight: 157.48 cm,73 kg.eGFR (calculated from the MDRD study equation) and eCrCl(calculated from the Cockcroft-Gault equation) are based ondifferent parameters and may not yield comparable results.If eCrCl result is absurd, please check patient'sheight/weight. Estimated Glomerular Filt Rate >60 [facility] Comment:Chronic Kidney Disea se: Estimated GFR < 60 mL/min/1.12n6Ngincv Kidney Disease: Estimated GFR < 15 mL/min/1.73m2 Glucose 418(HH) 60 - 115 mg/dL [facility] Comment:Critical value for t est(s):GLU Results called to and readback by: ROSARIOWJosette Person calling: SALIERD Date: 04/21/25Time:2135 Calcium 8.8 8.4 - 10.2 mg/dL [facility] Bilirubin, Total 0.1 0.0 - 1.0 mg/dL [facility] Aspartate Amino Transferase 17 5 - 31 U/L [facility] Alanine Aminotransferase 20 0 - 31 U/L [facility] Total Protein 6.7 6.5 - 8.0 g/dL [facility] Albumin Level 3.9 3.5 - 5.0 g/dL [facility] Alkaline Phosphatase 103 39 - 117 U/L [facility] 04/21/2025 8:59 PM EDT 04/21/2025 9:09 PM EDT us Generic External Data Provider LAB BLOOD ORDERAB LES Final Result Performing Organization Address City/State/[facility] Co de Phone Number [facility] [address] [place] [phone] * XR Ribs 3 Views Left w/ Chest (04/21/2025 7:31 PM EDT) Anatomical Region Laterality Modality Radiographic Stephanie ging 04/21/2025 7:31 PM EDT Narrative 04/21/2025 7:32 PM EDT [address] [address] XRay Report Signed Patient: Emily Tucker MR#: [id number] : 1970 Acct:[id number] Age/Sex: 54 / F ADM Date: 04/21/25 Loc: HO.ED Attending Dr: Ordering Physician: Carmelo Coronado MD Date of Service: 04/21/25 Procedure(s): XR ribs LT min 3V w CXR1V Accession Number(s): [id number] cc: [facility]; Carmelo Coronado MD CLINICAL HISTORY: fall,pain 4 view, chest and left ribs Comparison: CR/SR - XR CHEST 1 VIEW - 06/26/24 12:10 EDT Findings: Bones intact. No dislocations. The visualized lungs are normal. IMPRESSION: No acute rib fractures. This document has been electronically signed by: Jalen Mayberry MD on 04/21/2025 19:31:01 Dictated By: Jalen Mayberry MD Signed By: <Electronically signed by Jalen Mayberry MD in OV> 04/21/251930 DD/ 30 TD/TT: 04/21/251930 Network Security Administrator: Procedure Note Donotuseinterpreter, Image - 04/21/2025 [place] [address] XRay Report Signed Patient: Emily TuckerMR#: [id number] : 1970Acct:[id number] Age/Sex: 54 / FADM Date: 04/21/25 Loc: .ED Attending Dr: Ordering Physician: Carmelo Coronado MD Date of Service: 04/21/25 Procedure(s): XR ribs LT min 3V w CXR1V Accession Number(s): [id number] cc: [facility]; Carmelo Coronado MD CLINICAL HISTORY: fall,pain 4 view, chest and left ribs Comparison: CR/SR - XR CHEST 1 VIEW - 06/26/24 12:10 EDT Findings: Bones intact. No dislocations. The visualized lungs are normal. IMPRESSION: No acute rib fractures. This document has been electronically signed by: Jalen Mayberry MD on 04/21/2025 19:31:01 Dictated By: Jalen Mayberry MD Signed By: <Electronically signed by Jalen Mayberry MD in OV> 04/21/251930 DD/ 30 TD/TT: 04/21/251930 Network Security Administrator: [facility] External Provider IMG XR PROCEDURES Final Result * XR Ankle 3+ Views Right (04/21/2025 6:54 PM EDT) Anatomical Region Laterality Modality Lower Extremities, Ankle Right Radiogr aphic Imaging 04/21/2025 6:54 PM EDT Narrative 04/21/2025 6:56 PM EDT [address] [address] XRay Report Signed Patient: Emily Tucker MR#: [id number] 3606 : 1970 Acct:[id number] Age/Sex: 54 / F ADM Date: 04/21/25 Loc: HO.ED Attending Dr: Ordering Physician: Rosina Amin Date of Service: 04/21/25 Procedure(s): XR ankle RT min 3V Accession Number(s): [id number] cc: Rosina Amin; [facility] CLINICAL HISTORY: pain, injury 3 view right ankle Comparison: None provided Findings: No acute fractures. Ankle mortise intact. No significant arthritic change or erosions. No radiopaque foreign body. Mildly diffuse soft tissue swelling. Calcaneal spurring. IMPRESSION: 1. No acute fracture. This document has been electronically signed by: Jalen Mayberry MD on 04/21/2025 18:54:32 Dictated By: Jalen Mayberry MD Signed By: <Electronically signed by Jalen Mayberry MD in OV> 04/21/251854 DD/ 53 TD/TT: 04/21/251853 Network Security Administrator: Procedure Note Donotuseinterpreter, Image - 04/21/[address] [address] XRay Report Signed Patient: Emily TuckerMR#: [id number] : 1970Acct:[id number] Age/Sex: 54 / FADM Date: 04/21/25 Loc: HO.ED Attending Dr: Ordering Physician: Rosina Amin Date of Service: 04/21/25 Procedure(s): XR ankle RT min 3V Accession Number(s): [id number] cc: Rosina Amin; [facility] CLINICAL HISTORY: pain, injury 3 view right ankle Comparison: None provided Findings: No acute fractures. Ankle mortise intact. No significant arthritic change or erosions. No radiopaque foreign body. Mildly diffuse soft tissue swelling. Calcaneal spurring. IMPRESSION: 1. No acute fracture. This document has been electronically signed by: Jalen Mayberry MD on 04/21/2025 18:54:32 Dictated By: Jalen Mayberry MD Signed By: <Electronically signed by Jalen Mayberry MD in OV> 04/21/251854 DD/ 53 TD/TT: 04/21/251853 Network Security Administrator: [facility] External Provider IMG XR PROCEDURES Final Result * XR Hip 2 or 3 Views Left (04/21/2025 6:54 PM EDT) Anatomical Region Laterality Modality Lower Extremities, Hip Left Radiograp hic Imaging 04/21/2025 6:54 PM EDT Narrative 04/21/2025 6:56 PM EDT [place] [address] XRay Report Signed Patient: Emily Tucker MR#: [id number] 3606 : 1970 Acct:[id number] Age/Sex: 54 / F ADM Date: 04/21/25 Loc: HO.ED Attending Dr: Ordering Physician: Rosina Amin Date of Service: 04/21/25 Procedure(s): XR hip LT min 2V Accession Number(s): [id number] cc: Rosina Amin; [facility] CLINICAL HISTORY: pain, injury 3 view, pelvis and right hip Comparison: None provided Findings: No acute fracture or dislocation. No significant arthritic change. The soft tissues are unremarkable. IMPRESSION: No acute findings. This document has been electronically signed by: Jalen Mayberry MD on 04/21/2025 18:54:05 Dictated By: Jalen Mayberry MD Signed By: <Electronically signed by Jalen Mayberry MD in OV> 04/21/251854 DD/ 53 TD/TT: 04/21/251853 Network Security Administrator: Procedure Note Donotuseinterpreter, Image - 04/21/[address] [address] XRay Report Signed Patient: Emily TuckerMR#: [id number] 3606 : 1970Acct:[id number] Age/Sex: 54 / FADM Date: 04/21/25 Loc: HO.ED Attending Dr: Ordering Physician: Rosina Amin Date of Service: 04/21/25 Procedure(s): XR hip LT min 2V Accession Number(s): [id number] cc: Rosina Amin; [facility] CLINICAL HISTORY: pain, injury 3 view, pelvis and right hip Comparison: None provided Findings: No acute fracture or dislocation. No significant arthritic change. The soft tissues are unremarkable. IMPRESSION: No acute findings. This document has been electronically signed by: Jalen Mayberry MD on 04/21/2025 18:54:05 Dictated By: Jalen Mayberry MD Signed By: <Electronically signed by Jalen Mayberry MD in OV> 04/21/251854 DD/ 53 TD/TT: 04/21/251853 Network Security Administrator: [facility] External Provider IMG XR PROCEDURES Final Result * CT Cervical Spine w/o Contrast (04/21/2025 6:42 PM EDT) Anatomical Region Laterality Modality Spine, C-spine Computed Tomogra phy 04/21/2025 6:42 PM EDT Narrative 04/21/2025 6:43 PM EDT [address] [address] [address] Scan Report Signed Patient: Emily Tucker MR#: [id number] 3606 : 1970 Acct:[id number] Age/Sex: 54 / F ADM Date: 04/21/25 Loc: HO.ED Attending Dr: Ordering Physician: Rosina Amin Date of Service: 04/21/25 Procedure(s): CT cervical spine wo IV con Accession Number(s): [id number] cc: Rosina Amin; [facility] Report Number: [id number]: Total DLP = 529.88 mGy-cm CLINICAL HISTORY: fall, pain CT cervical spine without contrast Comparison: None provided Findings: Reversal of the cervical lordosis. Osteopenia. Multilevel spondylosis with osteophytosis, uncovertebral hypertrophy, facet arthropathy and degenerative disc disease. Anterior cervical discectomy and fusion changes noted at C3-C4, with posterior decompression and fusion noted at C4-C7. Prominent posterior disc osteophyte complex noted at C6-C7. Diffuse spinal canal narrowing, for example grzo-ha-ixxnmvcj at C4-C5 with severe left and moderate to severe right bilateral foraminal stenoses. No acute fractures or dislocations. Scattered prominent lymph nodes throughout the neck, may be reactive however are nonspecific. Lung apices are clear. IMPRESSION: No acute findings. Additional findings as described. This document has been electronically signed by: Jalen Mayberry MD on 04/21/2025 18:42:04 Dictated By: Jalen Mayberry MD Signed By: <Electronically signed by Jalen Mayberry MD in OV> 04/21/251841 DD/ 41 TD/TT: 04/21/251841 Network Security Administrator: Procedure Note Donotuseinterpreter, Image - 04/21/[address] [place] [address] [address] Scan Report Signed Patient: Emily Tucker#: [id number] : 1970Acct:[id number] Age/Sex: 54 / FADM Date: 04/21/25 Loc: HO.ED Attending Dr: Ordering Physician: Rosina Amin Date of Service: 04/21/25 Procedure(s): CT cervical spine wo IV con Accession Number(s): [id number] cc: Rosina Amin; [facility] Report Number: [id number]: Total DLP = 529.88 mGy-cm CLINICAL HISTORY: fall, pain CT cervical spine without contrast Comparison: None provided Findings: Reversal of the cervical lordosis. Osteopenia. Multilevel spondylosis with osteophytosis, uncovertebral hypertrophy, facet arthropathy and degenerative disc disease. Anterior cervical discectomy and fusion changes noted at C3-C4, with posterior decompression and fusion noted at C4-C7. Prominent posterior disc osteophyte complex noted at C6-C7. Diffuse spinal canal narrowing, for example lnca-kg-otlxsawq at C4-C5 with severe left and moderate to severe right bilateral foraminal stenoses. No acute fractures or dislocations. Scattered prominent lymph nodes throughout the neck, may be reactive however are nonspecific. Lung apices are clear. IMPRESSION: No acute findings. Additional findings as described. This document has been electronically signed by: Jalen Mayberry MD on 04/21/2025 18:42:04 Dictated By: Jalen Mayberry MD Signed By: <Electronically signed by Jalen Mayberry MD in OV> 04/21/251841 DD/ 41 TD/TT: 04/21/251841 Network Security Administrator: [facility] External Provider IMG CT PROCEDURES Final Result * CT Head w/o Contrast (04/21/2025 6:38 PM EDT) Anatomical Region Laterality Modality Head, Neck Computed Tomogra phy 04/21/2025 6:38 PM EDT Narrative 04/21/2025 6:40 PM EDT [place] [address] CT Scan Report Signed Patient: Emily Tucker MR#: [id number] : 1970 Acct:[id number] Age/Sex: 54 / F ADM Date: 04/21/25 Loc: HO.ED Attending Dr: Ordering Physician: Rosina Amin Date of Service: 04/21/25 Procedure(s): CT head/brain wo IV con Accession Number(s): [id number] cc: Rosina Amin; [facility] Report Number: [id number]: Total DLP = 676.58 mGy-cm CLINICAL HISTORY: fall, pain CT head without contrast Comparison: Head CT 07/20/2024 Findings: No intra-axial mass, midline shift, hydrocephalus, or acute hemorrhage. No significant atrophy-like change or white matter disease. Mucosal thickening throughout the paranasal sinuses. The orbits are unremarkable. No skull fracture. IMPRESSION: 1. No acute intracranial findings. This document has been electronically signed by: Jalen Mayberry MD on 04/21/2025 18:38:46 Dictated By: Jalen Mayberry MD Signed By: <Electronically signed by Jalen Mayberry MD in OV> 04/21/251838 DD/ 37 TD/TT: 04/21/251837 Network Security Administrator: Procedure Note Donotuseinterpreter, Image - 04/21/[address] [place] [address] [address] Scan Report Signed Patient: Malcolm Tucker#: [id number] 3606 : 1970Acct:[id number] Age/Sex: 54 / FADM Date: 04/21/25 Loc: HO.ED Attending Dr: Ordering Physician: Rosina Amin Date of Service: 04/21/25 Procedure(s): CT head/brain wo IV con Accession Number(s): [id number] cc: Rosina Amin; [facility] Report Number: [id number]: Total DLP = 676.58 mGy-cm CLINICAL HISTORY: fall, pain CT head without contrast Comparison: Head CT 07/20/2024 Findings: No intra-axial mass, midline shift, hydrocephalus, or acute hemorrhage. No significant atrophy-like change or white matter disease. Mucosal thickening throughout the paranasal sinuses. The orbits are unremarkable. No skull fracture. IMPRESSION: 1. No acute intracranial findings. This document has been electronically signed by: Jalen Mayberry MD on 04/21/2025 18:38:46 Dictated By: Jalen Mayberry MD Signed By: <Electronically signed by Jalen Mayberry MD in OV> 04/21/251838 DD/ 37 TD/TT: 04/21/251837 Network Security Administrator: [facility] External Provider IMG CT PROCEDURES Final Result * POCT [place]/ARELY (02/26/2025 11:10 AM EDT) [facility] Prep Positive Comment:pH 6, numerous WBC, negative clue, negative yeast, negative trich Vaginal Fluid Vaginal structure / Unknown 02/26/2025 11:10 AM EDT [employer] [place] POINT OF CARE TEST ENTER/EDIT ORDERABLES Final Result * (ABNORMAL) Bacterial Vaginosis Panel (02/26/2025 12:00 AM EDT) Pathologist [facility] TRICHOMONAS VAGINALIS DETECTION BY PCR DETECTED(A) Not Detect [facility] BACTERIAL VAGINOSIS DETECTION BY PCR NEGATIVE Negative [facility] Comment:The BV organism targ ets of the Xpert Xpress MVP test can becommensal in women; Xpert Xpress MVP positive results forbacterial vaginosis should be considered in conjunction withother clinical and patient information to determine thedisease status. Organisms that are not detected by the XpertXpress MVP test have also been reported to be associatedwith BV and aerobic vaginitis.The Xpert Xpress MVP test performance has not been evaluatedin patients under the age of 14. ANITA GROUP DETECTION BY PCR NOT DETECTED Not Detect [facility] Anita glab krusei PCR NOT DETECTED Not Detect [facility] Swab Vaginal structure / Unknown 02/26/2025 02/26/2025 [employer] [facility] MICROBIOLOGY - GENERAL ORD ERABLES Final Result [facility] [address] [place] [address] [phone] * Chlamydia/N. Gonorrhoeae RNA, TMA, Urogenitial (02/26/2025 12:00 AM EDT) Pathologist [facility] CT PCR NOT DETECTED Not Detect. [facility] Comment:A not detected test result does not exclude the possibilityof infection because test results can be affected byimproper specimen collection, concurrent antibiotic therapy,or the number of organisms in the specimen which may bebelow the sensitivity of the test. As with many diagnostictests, results from the Xpert CT/NG assay should beinterpreted in conjunction with other laboratory andclinical data available to the clinician.Xpert CT/NG performance has not been evaluated in patientsless than 14 years of age. The assay should not be used forthe evaluationof suspected sexual abuse or for other medico-legalindications. Additional testing is recommended in anycircumstance when false positive or false negative resultscould lead to adverse medical, social or psychologicalconsequences. NG PCR NOT DETECTED Not Detect. [facility] Comment:A not detected test result does not exclude the possibilityof infection because test results can be affected byimproper specimen collection, concurrent antibiotic therapy,or the number of organisms in the specimen which may bebelow the sensitivity of the test. As with many diagnostictests, results from the Xpert CT/NG assay should beinterpreted in conjunction with other laboratory andclinical data available to the clinician.Xpert CT/NG performance has not been evaluated in patientsless than 14 years of age. The assay should not be used forthe evaluationof suspected sexual abuse or for other medico-legalindications. Additional testing is recommended in anycircumstance when false positive or false negative resultscould lead to adverse medical, social or psychologicalconsequences. Urine (Urine, Random) 02/26/2025 02/26/2025 Narrative [facility] - 02/26/2025 9:22 PM EDT Vaginal us Penelope Deal [facility] MICROBIOLOGY - GENERAL ORD ERABLES Final Result [facility] [address] [place] [phone] [phone] * (ABNORMAL) Lipid Panel with Reflex to Direct LDL (01/14/2025 11:56 AM EDT) Triglycerides 133 <150 mg/dL [facility] Comment:Desirable Triglyceri de: less than 150 mg/dLBorderline High Triglyceride 150-199 mg/dLHigh Triglyceride: 200-499 mg/dLVery High Triglyceride: greater than or equal to 5OO mg/dL Cholesterol 226(H) <200 mg/dL [facility] Comment:Desirable Cholestero l: less than 200 mg/dLBorderline High Cholesterol: 200-239 mg/dLHigh Cholesterol: greater than 239 mg/dL LDL Cholesterol Calculated 116(H) <100 mg/dL [facility] Comment:Desirable LDL: less than 100 mg/dLNear Optimal/Above Optimal LDL: 110- 129 mg/dLBorderline High LDL: 130-159 mg/dLHigh LDL: 160-189 mg/dLVery High LDL: greater than or equal to 190 mg/dL HDL Cholesterol 84 >40 mg/dL [facility] Comment:Desirable HDL: great er than 40 mg/dL Note: This HDL assay may give artificially low results in patients with liver disease. Blood 01/14/2025 11:5 6 AM EDT 01/14/2025 1:25 PM EDT us Tyesha Houston MD LAB BLOOD ORDERABLES Final Resul t Performing Organization Address [facility] Co de Phone Number [facility] [address] [place], [place] [phone] * (ABNORMAL) Albumin, Random Urine W/Creatinine (01/14/2025 11:56 AM EDT) Creatinine, Urine 158.99 mg/dL [facility] Microalbumin Urine 66.0 mg/L [facility] Microalbum Creatinine Ratio Ur 41.5(H) <30 ug/mg cr [facility] Comment:Albumin/Creatinine R atio Reference Ranges: Normal: < 30 ug/mg creatinine Microalbuminuria: 30 - 300 ug/mg creatinineClinical Albuminuria: > 300 ug/mg creatinine Urine 01/14/2025 11:5 6 AM EDT 01/14/2025 1:07 PM EDT us Tyesha Houston MD LAB URINE ORDERABLES Final Resul t [facility] [address] [place] [phone] * Hepatitis C Antibody with Reflex to HCV, RNA, Quantitative, Real-Time PCR (01/14/2025 11:56 AM EDT) Hepatitis C Antibody Nonreactive Nonreactive [facility] Comment:Antibodies to HCV no t detected; does not exclude early acuteHCV infection. Blood Venous blood specimen / Unknown 01/14/2025 11:56 AM EDT 01/14/2025 1:25 PM EDT us Tyesha Houston MD LAB BLOOD ORDERABLES Final Resul t Performing Organization Address [facility] de Phone Number [facility] [address] [place] [phone] * HIV-1/2 Antigen and Antibodies, Fourth Generation, with Reflexes (01/14/2025 11:56 AM EDT) HIV AB/AG Nonreactive Nonreactive [facility] Comment:HIV-1 p24 Ag and/or HIV-1/HIV-2 Ab not detected.A test result that is nonreactive does not exclude thepossibility of exposure to or infection with HIV-1 and/orHIV-2. Nonreactive results in this assay for individualswith prior exposure to HIV-1 and/or HIV-2 may be due toantigen and antibody levels that are below the limit ofdetection of this assay.The [employer] HIV Ag/Ab Combo assay result andsupplemental assay results should be interpreted inconjunction with the patient's clinical presentation,history and other laboratory results. If the results areinconsistent with clinical evidence, additional testing issuggested to confirm the result. Blood Venous blood specimen / Unknown 01/14/2025 11:56 AM EDT 01/14/2025 1:25 PM EDT us Tyesha Houston MD LAB BLOOD ORDERABLES Final Resul t Performing Organization Address [facility] Co de Phone Number [facility] [address] [place] [address] [phone] * (ABNORMAL) POCT glycosylated hemoglobin (Hgb A1c) (01/14/2025 10:57 AM EDT) Hemoglobin A1C 12.6(A) 4.0 - 6.0 % QC Media Lot # [id number] Lot# Expiration Date 872 Blood Capillary blood specimen / Unknown 01/14/2025 10:57 AM EDT Tyesha Houston MD POINT OF CARE TEST ENTER/EDIT OR DERABLES Final Result * HPV E6/E7 RFLX VENU 16 18/45 (08/25/2020 11:45 AM EST) HPV mRNA E6/E7 rflx Not Detected Not Detected [facility] Comment: This test was performed using the APTIMA HPV Assay ([employer] This assay detects E6/E7 viral messenger RNA (mRNA) from 14 high-risk HPV types (16,18,31,33,35,39,45,51,52,56,58,59,66,68). The analytical performance characteristics of this assay have been determined by [employer]. The modifications have not been cleared or approved by the FDA. This assay has been validated pursuant to the CLIA regulations and is used for clinical purposes. THIS TEST WAS PERFORMED AT: [facility] [address] [place] [address] [address] [address] ALDA NIXON MD 08/25/2020 11:4 5 AM EST us Sarina Ann HISTORICAL/NON ORDERABLE LABS Fi nal Result [facility] [address] * Mammography Report 1 (07/24/2020 10:40 AM EST) Anatomical Region Laterality Modality Breast Bilateral Mammography 07/24/2020 10:4 0 AM EST Narrative 08/24/2020 12:06 PM EST Refer to the Notes tab for result details [facility] Procedure: Mammography Report 1 Procedure Note Provider, MD Jhony - 12/03/2022 Refer to the Notes tab for result details [facility] Procedure: Mammography Report 1 Tyesha Houston MD IMG BI PROCEDURES Final Result from Last 3 Months or Most Recently Relevant to Health Maintenance Insurance Normal C3 Care Teams Construction Crew Member Relationship Specialty Start Date End Date Tyesha Houston MD [address] [place] [phone] PCP - General Family Medicine 04/25/19
--- OUTSIDE RECORDS SUMMARY | 2025-05-23 18:27 | XMS_ITS | Encounter Summary ---
Author Organization [employer] Address [address] [place] [address] Care Team Providers Care Washcoat Wiper Name Role Phone Tyesha Rogers MD Primary Care Provider [phone] Reason for Visit * Reason Onset Date Comments Order(s) 09/06/2023 Encounter Details Date Type Department Care Team ([facility] st Contact Info) Description 09/06/2023 Telephone [facility] [address] [place], [place] [phone] Tyesha Rogers MD [address] [place] [phone] Order(s) Social History Tobacco Use Types Packs/Day [...] 9:17 AM EST Please disregard previous message, [employer] faxed orders. * Telephone Encounter - Silvino Gilliland - 09/06/2023 2:15 PM EST Tc clement Pike working with [facility] requesting order for diagnostic mammogram and ultrasound bi lateral 09/08/23 at 1:00 pm. If any questions please contact Glendy at [phone] documented in this encounter Plan of Treatment Upcoming Encounters Date Type Department Care Team (Late st Contact Info) Description 06/02/2025 9:00 AM EDT Office Visit [facility] [address] [place] [phone] Tyesha Rogers MD [address] [place] [address] 06/24/2025 9:00 AM EDT Office Visit [facility] [address] [place] [address] Katharine Carbone OD [address] [place] [address] documented as of this encounter Visit Diagnoses Not on filedocumented in this encounter Additional Health Concerns Assessment Noted Time PHQ-9 Depression Total Score: 21 023 9:42 AM EDT documented as of this encounter Care Teams Washcoat Wiper Relationship Specialty Start Date End Date Tyesha Rogers MD [address] [place] [address] PCP - General Family Medicine 04/25/19 documented as of this encounter
--- OUTSIDE RECORDS SUMMARY | 2025-05-23 18:27 | XMS_ITS | Encounter Summary ---
Author Organization [employer] Address [address] [place] [address] 7 [place] [address] Care Team Providers Care Mortgage Loan Specialist Name Role Phone Tyesha Rogers MD Primary Care Provider [phone] Reason for Referral * Consultation (Routine) - Closed Specialty Diagnoses / Procedures Referred By Contangel t Referred To Contact Diagnoses Type 2 diabetes mellitus with hyperglycemia, with long-term current use of insulin (CMS/HCC) Hypertension, unspecified type Multiple sclerosis (CMS/HCC) Tyesha Rogers MD [address] [place] [address] Phone: tel: fax: [address] [phone] Phone: tel: fax: Referral ID Status Reason Start Date Expiration Date V isits Requested Visits Authorized [id number] Closed Specialty Services Required 11/15/2024 11/15/2025 1 1 Encounter Details Date Type Department Care Team (Late st Contact Info) Description 11/15/2024 Orders Only [facility] MEDICINE [address] [place] [address] [phone] Tyesha Rogers MD [address] [place] [address] [phone] Type 2 diabetes mellitus with hyperglycemia, with long-term current use of insulin (CMS/HCC) (Primary Dx); Hypertension, unspecified type; Multiple sclerosis (CMS/HCC); Type 2 diabetes mellitus with hyperglycemia (CMS/HCC); Type 2 diabetes mellitus with hyperglycemia, with long-term current use of insulin ([facility]) Social History Tobacco Use Types Packs/Day Years [...] Upcoming Encounters Date Type Department Care Team ([facility] st Contact Info) Description 06/02/2025 9:00 AM EDT Office Visit [facility] MEDICINE [address] [place] [address] Tyesha Rogers MD [address] [place] [address] 06/24/2025 9:00 AM EDT Office Visit [facility] OPTOMETRY [address] [place] [address] Raf, Katharine, OD [address] [place] [address] Scheduled Referrals Name Type Priority Associated Diagnoses [...] documented as of this encounter Care Teams Mortgage Loan Specialist Relationship Specialty Start Date End Date Tyesha Rogers MD [address] [place] [address] PCP - General Family Medicine 04/25/19 documented as of this encounter
--- OUTSIDE RECORDS SUMMARY | 2025-05-23 18:27 | XMS_ITS | Encounter Summary ---
Author Organization [employer] Address [address] [facility] 7t [place] [address] Care Team Providers Care House Wrecker Name Role Phone Tyesha Rogers MD Primary Care Provider [phone] Encounter Details Date Type Department Care Team (Late st Contact Info) Description 07/17/2023 Orders Only [facility] MEDICINE [address] [place], [place] [phone] Kinjal Ch MD [address] [place], [place] [phone] Social History Tobacco Use Types Packs/Day Years [...] Description 06/02/2025 9:00 AM EDT Office Visit [facility] MEDICINE [address] [place] [address] Tyesha Rogers MD [address] [place] [address] 06/24/2025 9:00 AM EDT Office Visit [facility] OPTOMETRY [address] [place] [address] Raf, Katharine, OD [address] [place] [address] documented as of this encounter Visit Diagnoses Not on filedocumented in this encounter Additional Health Concerns Assessment Noted Time PHQ-9 Depression Total Score: 21 023 9:42 AM EDT documented as of this encounter Care Teams House Wrecker Relationship Specialty Start Date End Date Tyesha Rogers MD [address] [place] [address] PCP - General Family Medicine 04/25/19 documented as of this encounter
--- OUTSIDE RECORDS SUMMARY | 2025-05-23 18:27 | XMS_ITS | Encounter Summary ---
Author Organization [employer] Address [address] [facility] 7t [place] [address] Care Team Providers Care Special Machine Stitcher Name Role Phone Tyesha Rogers MD Primary Care Provider [phone] Encounter Details Date Type Department Care Team ([facility] st Contact Info) Description 11/01/2023 Telephone [facility] MEDICINE [address] [place], [place] [phone] Tyesha Rogers MD [address] [place], [place] [phone] Social History Tobacco Use Types Packs/Day Years [...] Description 06/02/2025 9:00 AM EDT Office Visit [facility] MEDICINE [address] [place] [address] Tyesha Rogers MD [address] [place] [address] 06/24/2025 9:00 AM EDT Office Visit [facility] OPTOMETRY [address] [place], [place] [phone] Raf, Katharine, OD [address] [place] [address] documented as of this encounter Visit Diagnoses Not on filedocumented in this encounter Additional Health Concerns Assessment Noted Time PHQ-9 Depression Total Score: 21 023 9:42 AM EDT documented as of this encounter Care Teams Special Machine Stitcher Relationship Specialty Start Date End Date Tyesha Rogers MD [address] [place], [place] [phone] PCP - General Family Medicine 04/25/19 documented as of this encounter
--- OUTSIDE RECORDS SUMMARY | 2025-05-23 18:27 | XMS_ITS | Encounter Summary ---
Author Organization [employer] Address [address] [facility] 7 [place] [address] Care Team Providers Care Director Of Field Sales Name Role Phone Tyesha Rogers MD Primary Care Provider [phone] Reason for Visit * Reason Onset Date Comments Durable Medical Equipment 09/06/2023 Encounter Details Date Type Department Care Team (Late st Contact Info) Description 09/06/2023 Telephone [facility] MEDICINE [address] [place], [place] [phone] Tyesha Rogers MD [address] [place] [address] Durable Medical Equipment Social History Tobacco Use [...] wheels or seat. Please contact Pt @ [phone] documented in this encounter Plan of Treatment Upcoming Encounters Date Type Department Care Team (Late st Contact Info) Description 06/02/2025 9:00 AM EDT Office Visit [facility] MEDICINE [address] [place] [address] Tyesha Rogers MD [address] [place] [address] 06/24/2025 9:00 AM EDT Office Visit [facility] OPTOMETRY [address] [place] [address] Katharine Carbone, ZAHIDA [address] [place] [address] documented as of this encounter Visit Diagnoses Not on filedocumented in this encounter Additional Health Concerns Assessment Noted Time PHQ-9 Depression Total Score: 21 023 9:42 AM EDT documented as of this encounter Care Teams Director Of Field Sales Relationship Specialty Start Date End Date Tyesha Rogers MD [address] [place] [address] PCP - General Family Medicine 04/25/19 documented as of this encounter
--- OUTSIDE RECORDS SUMMARY | 2025-05-23 18:27 | XMS_ITS | Encounter Summary ---
Author Organization [employer] Address [address] [facility] 7t [place] [address] Care Team Providers Care Superior Court Judge Name Role Phone Tyesha Rogers MD Primary Care Provider [phone] Reason for Visit * Reason Comments Med Refill Encounter Details Date Type Department Care Team ([facility] st Contact Info) Description 01/22/[address] [facility] MEDICINE [address] [place], [place] [phone] Tyesha Rogers MD [address] [place], [place] [phone] Other chronic pain Social History Tobacco Use [...] Office Visit [facility] MEDICINE [address] [place] [address] Tyesha Rogers MD [address] [place] [address] 06/24/2025 9:00 AM EDT Office Visit [facility] OPTOMETRY [address] [place] [address] Raf, Katharine, OD [address] [place] [address] documented as of this encounter Visit Diagnoses Diagnosis Other chronic pain documented in this encounter Additional Health Concerns Assessment Noted Time PHQ-9 Depression Total Score: 21 024 10:41 AM EDT documented as of this encounter Care Teams Superior Court Judge Relationship Specialty Start Date End Date Tyesha Rogers MD [address] [place] [address] PCP - General Family Medicine 04/25/19 documented as of this encounter
--- OUTSIDE RECORDS SUMMARY | 2025-05-23 18:27 | XMS_ITS | Encounter Summary ---
Author Organization [employer] Address [address] [facility] 7t [place] [address] Care Team Providers Care Camera Repair Technician Name Role Phone Tyesha Rogers MD Primary Care Provider [phone] Reason for Visit * Reason Comments Med Refill Encounter Details Date Type Department Care Team ([facility] st Contact Info) Description 11/29/2023 Refill [facility] MEDICINE [address] [place], [place] [phone] Tyesha Rogers MD [address] [place], [place] [phone] Social History Tobacco Use Types Packs/Day Years [...] 9:00 AM EDT Office Visit [facility] MEDICINE [address] [place] [address] Tyesha Rogers MD [address] [place] [address] 06/24/2025 9:00 AM EDT Office Visit [facility] OPTOMETRY [address] [place] [address] Raf, Katharine, OD [address] [place] [address] documented as of this encounter Visit Diagnoses Not on filedocumented in this encounter Additional Health Concerns Assessment Noted Time PHQ-9 Depression Total Score: 21 023 9:42 AM EDT documented as of this encounter Care Teams Camera Repair Technician Relationship Specialty Start Date End Date Tyesha Rogers MD [address] [place] [address] PCP - General Family Medicine 04/25/19 documented as of this encounter
--- OUTSIDE RECORDS SUMMARY | 2025-05-23 18:27 | XMS_ITS | Encounter Summary ---
Author Organization [employer] Address [address] [facility] 7t [place] [address] Care Team Providers Care Hair Or Beauty Salon Assistant Name Role Phone Tyesha Rogers MD Primary Care Provider Encounter Details Date Type Department Care Team (Late st Contact Info) Description 10/29/2024 Orders Only [facility] [address] [place] [address] Provider, MD Jhony Social History Tobacco Use Types Packs/Day Years [...] Description 06/02/2025 9:00 AM EDT Office Visit [facility] MEDICINE 230 [place] [address] Tyesha Rogers MD [address] [place] [address] 06/24/2025 9:00 AM EDT Office Visit [facility] OPTOMETRY [address] [place] [address] Raf, Katharine, OD 230 [place] [address] documented as of this encounter Procedures Procedure [...] documented as of this encounter Care Teams Hair Or Beauty Salon Assistant Relationship Specialty Start Date End Date Tyesha Rogers MD [address] [place] [address] PCP - General Family Medicine 8/15/19 documented as of this encounter
--- OUTSIDE RECORDS SUMMARY | 2025-05-23 18:27 | XMS_ITS | Encounter Summary ---
Author Organization [employer] [facility] Address [address] [place] [address] 7 [place] [address] Care Team Providers Care Principal Java Software Engineer Name Role Phone Tyesha Rogers MD Primary Care Provider [phone] Encounter Details Date Type Department Care Team (Late st Contact Info) Description 08/08/2022 Abstract [facility] MEDICINE [address] [place] [address] ProviderJhony MD Social History Tobacco Use Types [...] Description 06/02/2025 9:00 AM EDT Office Visit [facility] MEDICINE [address] [place] [address] Tyesha Rogers MD [address] [place] [address] 06/24/2025 9:00 AM EDT Office Visit [facility] OPTOMETRY [address] [place] [address] Katharine Carbone, OD [address] [place] [address] documented as of this encounter Visit Diagnoses Not on filedocumented in this encounter Care Teams Principal Java Software Engineer Relationship Specialty Start Date End Date Tyesha Rogers MD [address] [place] [address] PCP - General Family Medicine 04/25/19 documented as of this encounter
--- OUTSIDE RECORDS SUMMARY | 2025-05-23 18:27 | XMS_ITS | Encounter Summary ---
Author Organization [employer] Address [address] [facility] 7t [place] [address] Care Team Providers Care Director Women Name Role Phone Tyesha Rogers MD Primary Care Provider [phone] Reason for Visit * Reason Onset Date Comments Nurse Triage 07/04/2023 Encounter Details Date Type Department Care Team ([facility] st Contact Info) Description 07/04/2023 Telephone [facility] MEDICINE [address] [place], [place] [phone] Tyesha Roegrs MD [address] [place] [address] Nurse Triage Social History Tobacco Use Types [...] supposed to start the suboxone program at [facility] but, missedher appt. In May 2023 [...] on her way to Walk in at [facility]. I will send this note oliverio in [place] to let them know that pt. Will need a [facility] counselor present for appt. Pt. States that she will arrive to [facility] walk in around 1-130pm. Pt. Declining [...] Description 06/02/2025 9:00 AM EDT Office Visit [facility] MEDICINE [address] [place] [address] Tyesha Rogers MD [address] [place] [address] 06/24/2025 9:00 AM EDT Office Visit [facility] OPTOMETRY [address] [place] [address] Katharine Carbone OD [address] [place] [address] documented as of this encounter Visit Diagnoses Not on filedocumented in this encounter Additional Health Concerns Assessment Noted Time PHQ-9 Depression Total Score: 9 08/18/20 22 11:40 AM EST documented as of this encounter Care Teams Director Women Relationship Specialty Start Date End Date Tyesha Rogers MD [address] [place] [address] PCP - General Family Medicine 04/25/19 documented as of this encounter
== END 2025-05-23 18:23 | disposition home or self-care (01) ==
LOC: HO.HHCLNP 18:22
PROVIDERS: Visit Provider Registered Nurse
DX: L08.9 Local infection of the skin and subcutaneous tissue, unspecified (principal)
CPT/HCPCS: 87070; 87077; 87186; 87205

== ENCOUNTER 2025-05-26 11:31 | Emergency (ER) | payer MEDICAID, SELFPAY ==
--- OUTSIDE RECORDS SUMMARY | 2025-05-23 13:20 | XMS_ITS | Encounter Summary ---
Author Organization [email or web address] Address [address] [place] [address] 7 [place] [address] Care Team Providers Care Biologist Name Role Phone Tyesha Rogers MD Primary Care Provider [phone] Reason for Referral * Consultation (Routine) - Authorized Specialty Diagnoses / Procedures Referred By Contangel t Referred To Contact Orthopaedic Surgery Diagnoses Sprain of right ankle, unspecified ligament, initial encounter Marcy Hatch FNP [address] [place] [address] Phone: tel: fax: [facility] [address] [place] [address] [place] [address] Phone: tel: fax: Referral ID Status Reason Start Date Expiration Date Visits Requested Visits Authorized [id number] Authorized Specialty Services Required 05/26/2025 05/26/2026 6 6 * Consultation (Routine) - Pending Review Specialty Diagnoses / Procedures Referred By Contac t Referred To Contact Cardiology Diagnoses Recurrent chest pain Marcy Hatch FNP [address] [place] [address] Phone: tel: fax: Referral ID Status Reason Start Date Expiration Date Visits Requested Visits Authorized [id number] Pending Review Specialty Services Required 05/23/2025 05/23/2026 1 1 Reason for Visit * Reason Comments Foot Pain Dizziness Headache Chest Pain Encounter Details Date Type Department Care Team (Late st Contact Info) Description 05/23/2025 1:20 PM EDT Office Visit [facility] [address] [place], [place] [phone] [place], Mar[place], [facility] [address] [place], [place] [phone] Primary hypertension (Primary Dx); Type 2 diabetes mellitus with hyperglycemia, with long-term current use of insulin ([facility]/HCC); Soft tissue infection; Recurrent chest pain; Sprain [...] 9:12 AM EDT documented in this encounter Progress Notes * [facility], [facility] - 05/23/2025 1:20 PM EDT SUBJECTIVE: Emily Tucker is a 54 y.o. year old female with MS, CAD, hx of PE on eliquis, HTN, uncontrolled T2DM. who presents for evaluation of multiple concerns: HPI Intermittent chest pain- long hx of intermittent chest pain, SOB with multiple prior ED eval with negative ACS work up. No sx in office today. Reports while in waiting room felt dizzy, mild chest pain. BP elevated. Compliant with medications. On eliquis. No missed doses. Pain/itching/redness on lower abdomen-recurrent picking at old scab Sustained fall Right ankle approx 1 month ago. Seen at [facility] - ankle xray negative. Reports persistent medial ankle pain since this time. Completed physical therapy at [facility] Problem List[1] Review of Systems Constitutional: Negative for fatigue, fever and unexpected weight change. Eyes: Negative for visual disturbance. Respiratory: Negative for apnea, chest tightness and shortness of breath. Cardiovascular: Positive for chest pain. Negative for palpitations and leg swelling. Musculoskeletal: Positive for arthralgias. Skin: Positive for wound. Neurological: Negative for dizziness, light-headedness and headaches. OBJECTIVE: Vitals: 05/23/25 1311 05/23/25 1329 BP: (!) 177/103 (!) 156/98 BP Location: Left arm Right arm Patient Position: Sitting Sitting BP Cuff Size: Adult Adult Pulse: 82 Resp: 17 Temp: 97.8 ??F (36.6 ??C) TempSrc: Temporal SpO2: 99% Weight: 170 lb (77.1 kg) Physical Exam Constitutional: General: She is not in acute distress. Appearance: Normal appearance. HENT: Head: Normocephalic and atraumatic. Right Ear: External ear normal. Left Ear: External ear normal. Nose: Nose normal. Eyes: Conjunctiva/sclera: Conjunctivae normal. Cardiovascular: Rate and Rhythm: Normal rate and regular rhythm. Heart sounds: Normal heart sounds. Pulmonary: Effort: Pulmonary effort is normal. Breath sounds: Normal breath sounds. Musculoskeletal: Right ankle: Tenderness present over the medial malleolus. Left ankle: Normal. Skin: General: Skin is warm and dry. Comments: Superficial excoriation with surrounding warmth, erythema located just inferior to umbilicus, scant purulent discharge Neurological: General: No focal deficit present. Mental Status: She is alert and oriented to person, place, and time. Psychiatric: Mood and Affect: Mood normal. Behavior: Behavior normal. ASSESSMENT/PLAN Chest Pain/HTN - EKG in office NSR, patient asx at time of visit, OK for outpatient management with strict ED precautions - START hydrochlorothiazide 12.5mg - Continue other BP medications as prescribed - Referral to cardiology, stress test Reviewed ED precautions to include chest pain, shortness of breath, severe headache, sudden vision changes or BP >=180/>=120 mmHg. Contact [facility] if three or more BP readings >140/90. Wound - Appear infected s/t recurrent picking - Patient with hx of MRSA - Tx with course of doxycyline - Wound culture send out - Saline cleanse, dressing applied in office - Monitor for worsenign sx, fever, chills, spreading erythema R. Ankle Sprain - Persistent pain over medial malleolus - Referral to ortho - Soft boot provided T2DM Lab Results Component Value Date HGBA1C 12.6 (A) 01/14/2025 Pt reports home readings consistently elevated Has CGM FBG in AM around 200 Compliant with current medications--tresiba 26 units, metformin Advised to INCREASE tresiba to 30 units Diagnosis Plan 1. Primary hypertension hydroCHLOROthiazide 12.5 MG tablet 2. Type 2 diabetes mellitus with hyperglycemia, with long-term current use of insulin ([facility]) insulin degludec (Tresiba FlexTouch) 100 UNIT/ML injection POCT glucose manually resulted 3. Soft tissue infection doxycycline (Vibramycin) 100 MG capsule Wound Culture 4. Recurrent chest pain Referral to Cardiology Referral to Cardiology 5. Sprain of right ankle, unspecified ligament, initial encounter Referral to Orthopaedic Surgery Referral to Orthopaedic Surgery Follow Up: PCP 2 weeks Medications Ordered Prior to Encounter[2] [1] Patient Active Problem List Diagnosis Asthma Mood disorder ([facility]/HCC) Cervical dysplasia Chronic low back pain Cocaine use disorder ([facility]) Coronary artery disease Hypertension H/O: attempted suicide Habitual self-excoriation Dyslipidemia Multiple sclerosis ([facility]) Neuropathy Substance use disorder Opioid use disorder Posttraumatic stress disorder Recurrent kidney stones Type 2 diabetes mellitus with hyperglycemia ([facility]) Neurogenic bladder History of pulmonary embolism Tobacco use Ischemic heart disease Severe episode of recurrent major depressive disorder, without psychotic features ([facility]) Right wrist pain Hypomagnesemia Hypertensive emergency [place] (generalized anxiety disorder) Abnormal Pap smear of cervix Angioedema Abdominal pain Back pain Class 2 severe obesity due to excess calories with serious comorbidity and body mass index (BMI) of35.0 to 35.9 in adult ([facility]) Abnormal uterine bleeding (AUB) Elevated lipase History of DVT (deep vein thrombosis) Hot flashes IBS (irritable bowel syndrome) Lesion of bladder Obesity (BMI 30-39.9) Pancreatitis Pelvic pain in female Perimenopause UTI (urinary tract infection), bacterial Vulvar abscess Acute hyperglycemia Excoriation (skin-picking) disorder History of pulmonary embolus (PE) Multiple sclerosis exacerbation ([facility]/HCC) Kidney stone MDD (major depressive disorder), recurrent severe, without psychosis ([facility]) Attention deficit hyperactivity disorder (ADHD), combined type Attention or concentration deficit [2] Current Outpatient Medications on File Prior to Visit Medication Sig Dispense Refill acetaminophen (Tylenol) 500 MG tablet Take 2 tablets (1,000 mg) by mouth every 8 (eight) hours if needed for moderate pain or fever. 180 tablet 3 albuterol (2.5 MG/3ML) 0.083% nebulizer solution Inhale 3 mL in the morning, at noon, in the evening, and at bedtime. Inhale 3 ml by nebulization route every 4 hours Alcohol Swabs (Alcohol Pads) 70 % pads USE TO TEST FINGER STICK BLOOD SUGAR 3 (THREE) TIMES A DAY AND NEEDED when feeling ill 100 each 3 amLODIPine (Norvasc) 10 MG tablet Take 1 tablet (10 mg) by mouth Once per day. 90 tablet 3 ammonium lactate (Lac-Hydrin) 12 % lotion Apply 1 Application topically 2 times daily. apixaban (Eliquis) 5 MG tablet TAKE 1 TABLET BY MOUTH two (2) times a day EVERY TWELVE HOURS 60 tablet 1 ARIPiprazole (Abilify) 5 MG tablet Take 1 tablet by mouth Once per day. atomoxetine (Strattera) 18 MG capsule Take 1 capsule (18 mg) by mouth in the morning. Swallow capsule whole; do not open. If opened accidentally, do not touch eyes; wash hands immediately (product isan eye irritant). 30 capsule 0 atorvastatin (Lipitor) 40 MG tablet Take 1 tablet (40 mg) by mouth Once per day. 90 tablet 3 bisacodyl (Dulcolax) 5 MG EC tablet Take 1 tablet by mouth once a day as needed for constipation / if no bowel movement for 3 days. Do not crush, chew, or split. 30 tablet 3 Blood Glucose Monitoring Suppl (SavySwap [place] Lite) w/Device kit Use to test blood sugar bid dxdm 1 kit 0 Blood Pressure kit Check BP every day. Goal BP < 140/90 1 kit 0 calcium carbonate (Tums) 500 MG chewable tablet Chew 1 tablet if needed each day for indigestion orheartburn. cloNIDine (Catapres) 0.1 MG tablet Take 1 tablet (0.1 mg) by mouth if needed in the morning, at noon, and at bedtime (anxiety). 180 tablet 3 docusate sodium (Colace) 100 MG capsule Take 1 capsule by mouth 2 times daily. doxepin (SINEquan) 25 MG capsule Take 1-2 capsules by mouth at bedtime as needed 60 capsule 5 EPINEPHrine (EpiPen 2-Bashir) 0.3 MG/0.3ML injection syringe Inject 0.3 mL (0.3 mg) as directed if needed for anaphylaxis. 1 each 0 fluconazole (Diflucan) 150 MG tablet Take 1 tablet (150 mg) by mouth 1 (one) time per week. 42 tablet 0 FreeStyle lancets 1 each by Other route 4 times daily. Test blood sugar 4 times a day 100 each 5 FREESTYLE LITE test strip USE TO TEST BLOOD SUGAR FOUR TIMES DAILY. FASTING (BEFORE BREAKFAST), BEFORE LUNCH, BEFORE DINNER AND 2 HOURS AFTER YOUR LARGEST MEAL OF THE DAY. 100 strip 3 glucose (Glutose) 40 % gel oral gel Administer 15 g orally as needed for blood glucose < 60 mg/dl. Use glucagon if pt cannot swallow or is unresponsive. Call emergency if pt is lethargic or unresponsive. (Patient not taking: Reported on 12/31/2024) 45 g 3 insulin degludec (Tresiba FlexTouch) 100 UNIT/ML injection Administer subcutaneously 23 units daily6 mL 11 insulin lispro (HumaLOG) 100 UNIT/ML injection << Sliding Scale Comments >>100 - 149 8 units Call if less than 82092 - 199 10 units 200 - 249 12 units 250 - 299 14 units 300 - 349 16 units Call if greater than 400... 20 mL 2 insulin pen needle 32G x 5 mm misc Inject under the skin 4 times daily. Use as instructed 120 each 0 losartan (Cozaar) 100 MG tablet TAKE 1 TABLET BY MOUTH ONCE DAILY 90 tablet 0 metFORMIN XR (Glucophage-XR) 500 MG 24 hr tablet TAKE 2 TABLETS BY MOUTH WITH BREAKFAST AND TAKE 2 TABLETS BY MOUTH WITH DINNER. DO NOT CRUSH, chew, OR split 360 tablet 0 methocarbamol (Robaxin) 750 MG tablet Take 1 or 2 tablets by mouth three times daily as needed for muscle spasm 180 tablet 3 naloxone (Narcan) 4 mg/0.1 mL nasal spray Administer 0.1 mL into affected nostril(s) if needed. (Patient not taking: Reported on 12/31/2024) nitroglycerin (Nitrostat) 0.[address] 1 tablet under the tongue if needed each day. PRN (Patient not taking: Reported on 12/31/2024) omeprazole (PriLOSEC) [address] capsule Take 1 capsule by mouth before breakfast. Do not crush or chew. prazosin (Minipress) 1 MG capsule Take 1 capsule (1 mg) by mouth at bedtime. 30 capsule 1 sertraline (Zoloft) 25 MG tablet Take 1 tablet (25 mg) by mouth in the morning. 30 tablet 0 Ventolin HFA 108 (90 Base) MCG/ACT inhaler INHALE TWO PUFFS BY MOUTH EVERY 4 HOURS NEEDED FOR FOR WHEEZING 18 g 3 Current Facility-Administered Medications on File Prior to Visit Medication Dose Route Frequency Provider Last Rate Last Admin nitroglycerin (Nitrostat) SL tablet 0.4 mg 0.4 mg Sublingual q5 min PRN Kinjal Ch MD 0.4 mg at 03/13/25 1330 documented in this encounter Plan of Treatment Upcoming Encounters Date Type Department Care Team (Late st Contact Info) Description 06/02/2025 9:00 AM EDT Office Visit [facility] [address] [place] [address] Tyesha Rogers MD [address] [place] [address] 06/24/2025 9:00 AM EDT Office Visit [facility] [address] [place] [address] Katharine Carbone, OD [address] [place] [address] Scheduled Orders Name Type Priority Associated Diagnoses [...] with long-term current use of insulin ([facility]) documented in this encounter Results * (ABNORMAL) POCT glucose manually resulted (05/23/2025 2:18 PM EDT) Glucose Blood, POC 385(A) 60 - 200 mg/dL Blood Capillary blood specimen / Unknown 05/23/2025 2:18 PM EDT Result [facility] [place] [facility] SPORTS WRITER POINT OF CARE TEST ENTER/EDIT ORDERABLES Final Result documented in this encounter Visit Diagnoses Diagnosis Primary hypertension- Primary Unspecified essential hypertension Type 2 diabetes mellitus with hyperglycemia, with long-term current use of insulin ([facility]) Soft tissue infection Unspecified infectious and parasitic diseases Recurrent chest pain Unspecified chest pain Sprain of right ankle, unspecified ligament, initial encounter documented in this encounter Additional Health Concerns Assessment Noted Time PHQ-9 Depression Total Score: 14 025 1:25 PM EDT documented as of this encounter Care Teams Biologist Relationship Specialty Start Date End Date Tyesha Rogers MD [address] [place] [address] PCP - General Family Medicine 04/25/19 documented as of this encounter
[2025-05-26] VITALS (7 sets, daily range): BP systolic 165–176; BP diastolic 76–98; PULSE 74–86; RESP 16–20; TEMP 36.4–36.7; O2SAT 96–99; BMI 31.1
--- NOTE | ~2025-05-26 | XR_ITS ---
EXAMINATION: XR ABDOMEN KUB CLINICAL INDICATION: hx sbo, abd pain COMPARISON: None available. TECHNIQUE: AP view of the abdomen. FINDINGS: Surgical clips in right upper quadrant likely from cholecystectomy. The bowel gas pattern is unremarkable. There is moderate stool right colon, greater than the left colon. XR/XR KUB IMPRESSION: Moderate stool and gas is present in the colon. Electronically signed by: Jasper Macias MD 05/26/2025 02:47 PM EDT
--- NOTE | 2025-05-26 12:01 | ED.GENADULT ---
HPI - General Adult General Chief complaint: Abdominal Pain Stated complaint: abd pain, back pain, nausea and vomiting Time Seen by Provider: 05/26/25 15:08 History of Present Illness ED Provider: Pepe AZEVEDO narrative: The patient is a 54-year-old woman who says that she has not had a bowel movement for 5 days. She is passing gas. She has had some nausea and vomiting. She is belching a lot as well. She is a type 2 diabetic who also uses insulin. Today she went to the [facility] where she was found to be quite hyperglycemic. An ambulance was called and she was brought to the hospital. Related Data Home Medications ?Medication ?Instructions ?Recorded ?Confirmed apixaban 5 mg tablet (Eliquis) 5 mg PO BID 08/25/20 04/22/25 atorvastatin 40 mg tablet 1 tab PO DAILY 06/07/22 04/22/25 losartan 100 mg tablet 100 mg PO DAILY 06/07/22 04/22/25 metformin 500 mg tablet,extended 1,000 mg PO BID 05/11/23 04/22/25 release 24 hr amlodipine 2.5 mg tablet 10 mg PO DAILY 05/28/24 04/22/25 insulin lispro 100 unit/mL 8 - 16 sliding scale dose subcut 05/28/24 04/22/25 subcutaneous pen TIDAC levothyroxine 25 mcg tablet 25 mcg PO DAILY@0600 05/28/24 07/17/24 famotidine 10 mg tablet 10 mg PO BID 06/13/24 04/22/25 acetaminophen 500 mg tablet 1,000 mg PO Q8H PRN moderate pain 04/22/25 04/22/25 atomoxetine 18 mg capsule 18 mg PO QAM 04/22/25 04/22/25 bisacodyl 5 mg tablet,delayed 5 mg PO DAILY PRN constipation 04/22/25 04/22/25 release clonidine HCl 0.1 mg tablet 0.1 mg PO TID PRN Anxiety 04/22/25 04/22/25 doxepin 25 mg capsule 25 mg PO BEDTIME PRN Insomnia 04/22/25 04/22/25 fluconazole 150 mg tablet 150 mg PO WE 04/22/25 04/22/25 insulin degludec 100 unit/mL (3 26 unit subcut DAILY 04/22/25 04/22/25 mL) subcutaneous pen (Tresiba FlexTouch U-100 insulin) methocarbamol 750 mg tablet 750 - 1,500 mg PO TID PRN muscle 04/22/25 04/22/25 spasm prazosin 1 mg capsule 1 mg PO BEDTIME 04/22/25 04/22/25 sertraline 25 mg tablet 25 mg PO QAM 04/22/25 04/22/25 Previous Rx's ?Medication ?Instructions ?Recorded albuterol sulfate 90 mcg/actuation 2 puff inhalation RQ4H PRN 07/25/22 aerosol inhaler (Ventolin HFA) wheezing #0 grams epinephrine 0.3 mg/0.3 mL 0.3 mg (0.3 mL) IM Q10M PRN 12/10/24 injection, auto-injector anaphylaxis #2 ea Allergies Allergy/AdvReac Type Severity Reaction Status Date / Time Iodinated Contrast Media (IV Allergy Severe THROAT Verified 05/26/25 12:03 CONTRAST) CLOSING lithium (LITHIUM) Allergy Intermediate AGGRESSION, Verified 05/26/25 12:03 stiffened up & throat closing (moderate to severe) fluoxetine (FLUOXETINE) Allergy Mild ITCHING, Verified 05/26/25 12:03 Suicidal risperidone (From RISPERDAL) Allergy Mild ITCHING Verified 05/26/25 12:03 asparagus (ASPARAGUS) Allergy Unknown unknown Verified 05/26/25 12:03 divalproex sodium (From Allergy Unknown UNKNOWN, Verified 05/26/25 12:03 DEPAKOTE) stiffened up, locked jaw lisinopril (LISINOPRIL) Allergy Unknown COUGH Verified 05/26/25 12:03 olanzapine Allergy Unknown can't Verified 05/26/25 12:03 recall if hives or increased pollen extracts (POLLEN) Allergy Unknown unknown Verified 05/26/25 12:03 tomato (TOMATO) Allergy Unknown UNKNOWN Verified 05/26/25 12:03 quetiapine (From SEROQUEL) AdvReac Intermediate OVERSEDATIO Verified 05/26/25 12:03 N BROCCOLI Allergy Unknown Unknown Uncoded 05/26/25 12:03 FUMARATE Allergy Unknown Unknown Uncoded 05/26/25 12:03 GREEN CHEUNG Allergy Unknown Unknown Uncoded 05/26/25 12:03 TOMATO Allergy Unknown Unknown Uncoded 05/26/25 12:03 [facility] Past Medical History Medical History Multiple sclerosis exacerbation Excoriation (skin-picking) disorder Back pain GERD (gastroesophageal reflux disease) Peripheral neuropathy PTSD (post-traumatic stress disorder) Mood disorder Elevated cholesterol Fibromyalgia Chronic back pain DDD (degenerative disc disease) Ovarian cyst Kidney stone Normal colonoscopy Lesion of bladder Suicide attempt Depression IBS (irritable bowel syndrome) Obesity (BMI 30-39.9) Endometriosis History of pulmonary embolus (PE) History of DVT (deep vein thrombosis) Diabetes mellitus Asthma HTN (hypertension) Anxiety Multiple sclerosis Surgical History History of lithotripsy History of cystoscopy S/P endometrial ablation H/O neck surgery Hx of dilation and curettage Hx of tubal ligation Hx of appendectomy Hx of cholecystectomy Family History Family History Mother Rheumatoid arteritis COPD (chronic obstructive pulmonary disease) Father HTN (hypertension) Diabetes mellitus Social History Social History Household Members: None Housing: Apartment Do you presently have visiting nurse or other home services: No Alcohol intake: current Alcohol intake frequency: holidays/special occasions only Comment: on 5 min checks for safety after episode today Patient Tobacco Use Status: Current everyday Tobacco user Tobacco use type: Cigarette Cigarette Packs Per Day: 1 Cigarettes Per Day: 20.0 Years Smoked: 39 Smoked in Last 30 Days: Yes e-Cigarette/Vaping Use: Currently Using Second Hand Smoke Exposure: No Use of substances other than those prescribed or required for medical reasons: Yes Substance Use Type: Marijuana Advance Directives: Yes Advance Directives on File: Yes Advance Directives Date on File: 05/18/23 service: No Sexual orientation: Straight/Heterosexual Gender identity: Female Physical Exam ED Vital Signs: Vital Signs - 24 hr 05/26/25 14:00 05/26/25 14:33 05/26/25 15:01 Temperature Pulse Rate 86 79 Respiratory Rate 20 20 16 Blood Pressure 168/88 H 165/98 H Pulse Oximetry 98 98 Oxygen Delivery Method Room Air Room Air 05/26/25 16:39 05/26/25 18:03 Temperature 97.5 F 97.5 F Pulse Rate 74 74 Respiratory Rate 18 18 Blood Pressure 165/85 H 165/85 H Pulse Oximetry 99 99 Oxygen Delivery Method Room Air Room Air BMI result Body Mass Index 31.1 Const Other: The patient is a 54-year-old woman who was awake and alert with a normal mental status. She said that she was quite uncomfortable. She did not appear obviously acutely ill. Orientation/consciousness: patient oriented x3 HENMT Other: The face is symmetrical. Mucous membranes moist. Eyes Other: Pupils are round equal, conjunctivae are clear, extraocular movements intact Neck Neck: Yes normal visual inspection and Yes full ROM Resp Effort & Inspection: normal respiratory effort Auscultation: clear to auscultation bilaterally Cardio Rate: regular rate Rhythm: regular rhythm Heart sounds: S1 normal heart sound present and S2 normal heart sound present GI Other: The abdomen does not seem markedly protuberant. It is not tense and does not seem distended. The abdomen is soft. It is diffusely tender. Digital rectal exam did not reveal any fecal impaction. Good rectal tone. Skin Other: Skin was pale and dry Neuro General: patient oriented x3, gait normal, tone normal, moves all extremities, no focal motor deficits and CN's II-XI intact bilaterally Extrem Other: There is no calf swelling or tenderness. No asymmetry. No peripheral edema. Course Course Course Narrative: This is a rapid medical exam performed by Margot Terrell NP: Additional HPI, ROS, PE not included below will be deferred to primary provider. Patient is a 54y/o F with hx of SBO presenting with 3 days of abdominal pain, nausea, vomiting, constipation. Feels similar to prior SBO. Subjective fevers. Glucometer also reading hi. Plan: labs, UA Medications Administered Discontinued Medications Generic Name Dose Route Start Last Admin Trade Name Lam PRN Reason Stop Dose Admin Diphenhydramine HCl 25 mg 05/26/25 15:17 05/26/25 15:44 Diphenhydramine Hcl 50 Mg/Ml Vial IVPUSH 05/26/25 15:18 25 mg ONCE ONE Administration Acetaminophen 1,000 mg in 100 mls @ 400 mls/hr 05/26/25 15:14 05/26/25 16:46 Ofirmev IV 05/26/25 15:28 Infused ONCE ONE Infusion Sodium Chloride 1,000 mls @ 999 mls/hr 05/26/25 15:15 05/26/25 18:07 Ns IV 05/26/25 16:15 Infused .Q1H1M ISI Infusion Lactated Ringer's 1,000 mls @ 999 mls/hr 05/26/25 17:00 05/26/25 18:03 Lr IV 05/26/25 18:00 Not Given .Q1H1M ISI Lactated Ringer's 1,000 mls @ 999 mls/hr 05/26/25 17:00 05/26/25 18:03 Lr IV 05/26/25 18:00 Not Given .Q1H1M ISI Insulin Human Lispro 10 unit 05/26/25 15:39 05/26/25 15:52 Insulin Lispro 100 Unit/Ml 3 Ml Vial SUBCUT 05/26/25 15:40 10 unit ONCE ONE Administration Magnesium Citrate 300 ml 05/26/25 17:37 05/26/25 18:02 Magnesium Citrate 300 Ml Solution PO 05/26/25 17:38 300 ml ONCE ONE Administration Metoclopramide HCl 10 mg 05/26/25 15:15 05/26/25 15:48 Metoclopramide Hcl 10 Mg/2 Ml Vial IVPUSH 05/26/25 15:16 10 mg ONCE ONE Administration Sodium Biphosphate/Sodium Phosphate 133 ml 05/26/25 15:26 05/26/25 15:44 Sodium Phosphate,Nod[place]-Dibasic 133 Ml Enema IA 05/26/25 15:27 133 ml ONCE ONE Administration Medical Decision Making Medical Decision Making [facility] Narrative: the patient is a type 2 diabetic who was hyperglycemic and who has also not had a bowel movement for 5 days and is complaining of abdominal pain. She had a KUB that shows a great deal of stool in the colon. The patient reports that she has been passing gas. My suspicion for a small-bowel obstruction is low. To address her high blood sugar the patient was given 10 units of lispro insulin (this is consistent with her usual sliding scale at home), and also IV fluids. I performed a digital rectal exam to rule out fecal impaction. There was no impaction. I then administered a Fleet enema. After the Fleet enema the patient passed a moderate amount of stool she reports and was feeling better. Her blood sugar had come down to 356 by fingerstick. Her initial blood sugar on her basic metabolic panel was over 600. the patient was comfortable being discharged after receiving fluids and having a bowel movement. She was feeling better. She was given a bottle of magnesium citrate that she should drink when she gets home to help further clear herself out. She should continue her usual diabetic care at home. She should return if worse. Lab Data 05/26/25 12:25 05/26/25 12:25 Labs: Lab Results 05/26/25 05/26/25 05/26/25 Range/Units 12: 12:30 15:29 WBC 7.0 (4.8-10.8) X10*3/uL RBC 4.81 (4.20-5.50) X10*6/uL Hgb 14.1 (12.0-16.0) g/dl Hct 40.2 (37.0-47.0) % MCV 83.6 (80.0-98.0) fL MCH 29.3 (27.0-33.0) pg MCHC 35.1 H (31.0-35.0) g/dl RDW 12.2 (11.0-16.0) % Plt Count 235 (160-400) X10*3/uL MPV 10.1 (9.4-12.3) fL Immature Gran % (Auto) 0.3 (0.0-0.4) % Neut % (Auto) 69.0 (45-73) % Lymph % (Auto) 22.8 (20-40) % [place]od[place] % (Auto) 3.7 (2-11) % Eos % (Auto) 3.6 (0-4) % Baso % (Auto) 0.6 (0-2) % Lymph # (Auto) 1.6 (1.2-4.9) X10*3/uL [place] # (Auto) 0.3 (0.1-1.2) X10*3/uL Eos # (Auto) 0.3 (0.0-0.4) X10*3/uL Baso # (Auto) 0.0 (0.0-0.2) X10*3/uL Abs Immat Gran (auto) 0.02 (0.00-0.03) X10*3/uL Absolute Neuts (auto) 4.8 (2.0-8.3) x10*3/uL Absolute Nucleated RBC 0.000 (0.0-0.012) X10*3/uL Nucleated RBC % (auto) 0.0 (0.0-0.2) /100WBC VBG pH 7.33 (7.32-7.43) VBG pCO2 41 mmHg VBG pO2 44 mmHg VBG HCO3 22 (22-26) mmol/L VBG O2 Saturation 72.0 % VBG Base Excess -3.3 mmol/L Sodium 133 L (135-145) mmol/L Potassium 4.2 (3.3-5.1) mmol/L Chloride 102 (96-108) mmol/L Carbon Dioxide 23 (22-29) mmol/L Anion Gap 12 (12-20) BUN 21 H (9-16) mg/dL Creatinine 0.85 (0.5-1.4) mg/dL Estim Creat Clear Calc 74.4 Estimated GFR > 60 POC Glucose (60-115) mg/dL Random Glucose 667 H* (60-115) mg/dL Calcium 8.5 (8.4-10.2) mg/dL Magnesium 1.6 (1.6-2.6) mg/dL Total Bilirubin 0.2 (0.0-1.0) mg/dL AST 16 (5-31) U/L ALT 28 (0-31) U/L Alkaline Phosphatase 116 (39-117) U/L Total Protein 7.3 (6.5-8.0) g/dL Albumin 4.1 (3.5-5.0) g/dL Lipase 37 (8-78) U/L Beta-Hydroxybutyrate 0.12 (0.02-0.27) mmol/L Urine Color Yellow Urine Appearance Clear Urine pH 5.5 (5.0-9.0) Ur Specific Hammond >= 1.030 H (1.005-1.025) Urine Protein Negative (Neg-Trace) mg/dL Urine Glucose (UA) >=1000 H (Negative) mg/dL Urine Ketones Negative (Negative) mg/dL Urine Blood Negative (Negative) Urine Nitrite Negative (Negative) Ur Leukocyte Esterase Negative (Negative) Urine RBC 0-2 (0-2) /HPF Urine WBC 0-5 (0-5) /HPF Ur Squamous Epith Cells 3-5 (0-2) /HPF Urine Bacteria 1+ (None Seen) Hyaline Casts 3-5 (0-2) /LPF Urine Yeast Present 05/26/25 05/26/25 Range/Units 15:34 17:15 WBC (4.8-10.8) X10*3/uL RBC (4.20-5.50) X10*6/uL Hgb (12.0-16.0) g/dl Hct (37.0-47.0) % MCV (80.0-98.0) fL MCH (27.0-33.0) pg MCHC (31.0-35.0) g/dl RDW (11.0-16.0) % Plt Count (160-400) X10*3/uL MPV (9.4-12.3) fL Immature Gran % (Auto) (0.0-0.4) % Neut % (Auto) (45-73) % Lymph % (Auto) (20-40) % [place] % (Auto) (2-11) % Eos % (Auto) (0-4) % Baso % (Auto) (0-2) % Lymph # (Auto) (1.2-4.9) X10*3/uL [place] # (Auto) (0.1-1.2) X10*3/uL Eos # (Auto) (0.0-0.4) X10*3/uL Baso # (Auto) (0.0-0.2) X10*3/uL Abs Immat Gran (auto) (0.00-0.03) X10*3/uL Absolute Neuts (auto) (2.0-8.3) x10*3/uL Absolute Nucleated RBC (0.0-0.012) X10*3/uL Nucleated RBC % (auto) (0.0-0.2) /100WBC VBG pH (7.32-7.43) VBG pCO2 mmHg VBG pO2 mmHg VBG HCO3 (22-26) mmol/L VBG O2 Saturation % VBG Base Excess mmol/L Sodium (135-145) mmol/L Potassium (3.3-5.1) mmol/L Chloride (96-108) mmol/L Carbon Dioxide (22-29) mmol/L Anion Gap (12-20) BUN (9-16) mg/dL Creatinine (0.5-1.4) mg/dL Estim Creat Clear Calc Estimated GFR POC Glucose 467 H* 356 H* (60-115) mg/dL Random Glucose (60-115) mg/dL Calcium (8.4-10.2) mg/dL Magnesium (1.6-2.6) mg/dL Total Bilirubin (0.0-1.0) mg/dL AST (5-31) U/L ALT (0-31) U/L Alkaline Phosphatase (39-117) U/L Total Protein (6.5-8.0) g/dL Albumin (3.5-5.0) g/dL Lipase (8-78) U/L Beta-Hydroxybutyrate (0.02-0.27) mmol/L Urine Color Urine Appearance Urine pH (5.0-9.0) Ur Specific Hammond (1.005-1.025) Urine Protein (Neg-Trace) mg/dL Urine Glucose (UA) (Negative) mg/dL Urine Ketones (Negative) mg/dL Urine Blood (Negative) Urine Nitrite (Negative) Ur Leukocyte Esterase (Negative) Urine RBC (0-2) /HPF Urine WBC (0-5) /HPF Ur Squamous Epith Cells (0-2) /HPF Urine Bacteria (None Seen) Hyaline Casts (0-2) /LPF Urine Yeast Discharge Plan Discharge Clinical Impression: Abdominal pain, Constipation Patient Disposition: Home, Self-Care Additional Instructions: I believe you were significantly constipated. Please take the bottle of magnesium citrate and drink this at home. My hope is that this will continue to help you clean out your bowels. Continue your regular medications. Please follow up soon with your regular doctor to discuss this episode further. Return to the emergency room if significantly worse. Prescriptions: No Action famotidine 10 mg Tablet 10 mg PO BID atorvastatin 40 mg tablet 1 tab PO DAILY losartan 100 mg tablet 100 mg PO DAILY albuterol sulfate [Ventolin HFA] 90 mcg/actuation Hfa Aerosol Inhaler 2 puff inhalation RQ4H PRN (Reason: wheezing) Qty: 0 0RF metformin 500 mg tablet extended release 24 hr 1,000 mg PO BID amlodipine 2.5 mg tablet 10 mg PO DAILY levothyroxine 25 mcg tablet 25 mcg PO DAILY@0600 insulin lispro 100 unit/mL insulin pen 8 - 16 sliding scale dose subcut TIDAC Protocol: Insulin Correction Scale Less than or equal to 110 ---- Give (units): 0 111 to 150 Give (units): 8 151 to 200 Give (units): 10 201 to 250 Give (units): 12 251 to 300 Give (units): 14 301 to 350 Give (units): 16 Greater than 350 Give (units): 0 Call MD if Blood Glucose > : 350 epinephrine 0.3 mg/0.3 mL auto-injector 0.3 mg IM Q10M PRN (Reason: anaphylaxis) Qty: 2 0RF Rx Instructions: for 2 doses doxepin 25 mg capsule 25 mg PO BEDTIME PRN (Reason: Insomnia) clonidine HCl 0.1 mg tablet 0.1 mg PO TID PRN (Reason: Anxiety) fluconazole 150 mg tablet 150 mg PO WE methocarbamol 750 mg tablet 750 - 1,500 mg PO TID PRN (Reason: muscle spasm) sertraline 25 mg tablet 25 mg PO QAM bisacodyl 5 mg tablet,delayed release (DR/EC) 5 mg PO DAILY PRN (Reason: constipation) atomoxetine 18 mg capsule 18 mg PO QAM insulin degludec [Tresiba FlexTouch U-100] 100 unit/mL (3 mL) insulin pen 26 unit subcut DAILY prazosin 1 mg capsule 1 mg PO BEDTIME acetaminophen 500 mg tablet 1,000 mg PO Q8H PRN (Reason: moderate pain) Eliquis 5 mg tablet 5 mg PO BID Interventions: ED Discharge Assessment Last Done: 05/26/25 18:03 Discharge Date/Time: 05/26/25 18:06 Print Language: Marshallese
[2025-05-26 12:30] LABS: MANUAL DIFF FLAG NO
[2025-05-26 12:32] LABS: Hematocrit 40.2 % (37.0-47.0); Hemoglobin 14.1 g/dl (12.0-16.0); Imm Gran Abs Auto 0.02 X10*3/uL (0.00-0.03); Imm Gran Pct Auto 0.3 % (0.0-0.4); Lymphocytes Absolute Auto 1.6 X10*3/uL (1.2-4.9); Mean Corpuscular HGB Conc 35.1 g/dl (31.0-35.0); Mean Corpuscular Hemoglobin 29.3 pg (27.0-33.0); Mean Corpuscular Volume 83.6 fL (80.0-98.0); NRBC Abs Auto 0.000 X10*3/uL (0.0-0.012); NRBC Pct Auto 0.0 /100WBC (0.0-0.2); Platelet Count 235 X10*3/uL (160-400); Red Blood Count 4.81 X10*6/uL (4.20-5.50); White Blood Count 7.0 X10*3/uL (4.8-10.8)
[2025-05-26 12:35] LABS: Venous Blood Gas Refer to POC result
[2025-05-26 12:37] LABS: VBG HCO3 22 mmol/L (22-26); VBG O2 % Saturation 72.0 %
[2025-05-26 12:49] LABS: Alanine Aminotransferase 28 U/L (0-31); Albumin Level 4.1 g/dL (3.5-5.0); Alkaline Phosphatase 116 U/L (39-117); Anion Gap 12 (12-20); Aspartate Amino Transferase 16 U/L (5-31); Blood Urea Nitrogen 21 mg/dL (9-16); Calcium 8.5 mg/dL (8.4-10.2); Carbon Dioxide 23 mmol/L (22-29); Chloride 102 mmol/L (96-108); Creatinine Clr Calc Pharmacy 74.4; Estimated Glomerular Filt Rate > 60; Lipase 37 U/L (8-78); Magnesium 1.6 mg/dL (1.6-2.6); Potassium 4.2 mmol/L (3.3-5.1); Sodium 133 mmol/L (135-145); Total Protein 7.3 g/dL (6.5-8.0)
--- NOTE | 2025-05-26 14:02 | PC.NURSE ---
Reports feeling worse while in waiting room. Given emesis bag. Glucose 667, rn relief charge Tee huerta. Vitals documented. KUB ordered by Sabi Terrell NP.
[2025-05-26 15:39] LABS: Glucose, Whole Blood 467 mg/dL (60-115)
[2025-05-26 15:52] LABS: Appearance Urine Clear; Glucose Urine UA >=1000 mg/dL (Negative); PH 5.5 (5.0-9.0); Specific Gravity - Urine >= 1.030 (1.005-1.025); UMIC TRIGGER UACC YES
[2025-05-26 17:18] LABS: Glucose, Whole Blood 356 mg/dL (60-115)
--- OUTSIDE RECORDS SUMMARY | 2025-05-26 19:47 | XMS_ITS | Encounter Summary ---
Author Organization [employer] Address [address] [facility] [address] [place] [address] Care Team Providers Care Home Health Nurse Licensed Practical Name Role Phone Tyesha Rogers MD Primary Care Provider [phone] Reason for Visit * Reason Onset Date Comments Order(s) 09/06/2023 Encounter Details Date Type Department Care Team ([facility] st Contact Info) Description 09/06/2023 Telephone [facility] [address] [place], [place] [phone] Tyesha Rogers MD [address] [place] [address] Order(s) Social History Tobacco Use Types Packs/Day [...] 9:17 AM EST Please disregard previous message, Laminating Press Operator faxed orders. * Telephone Encounter - Silvino Gilliland - 09/06/2023 2:15 PM EST Tc clement Pike working with [facility] requesting order for diagnostic mammogram and ultrasound bi lateral 09/08/23 at 1:00 pm. If any questions please contact Glendy at [phone] documented in this encounter Plan of Treatment Upcoming Encounters Date Type Department Care Team (Late st Contact Info) Description 06/02/2025 9:00 AM EDT Office Visit [facility] [address] [place] [address] Tyesha Rogers MD [address] [place] [address] 06/24/2025 9:00 AM EDT Office Visit [facility] [address] [place] [address] Katharine Carbone OD [address] [place] [address] documented as of this encounter Visit Diagnoses Not on filedocumented in this encounter Additional Health Concerns Assessment Noted Time PHQ-9 Depression Total Score: 21 023 9:42 AM EDT documented as of this encounter Care Teams Home Health Nurse Licensed Practical Relationship Specialty Start Date End Date Tyesha Rogers MD [address] [place] [address] PCP - General Family Medicine 04/25/19 documented as of this encounter
--- OUTSIDE RECORDS SUMMARY | 2025-05-26 19:47 | XMS_ITS | Encounter Summary ---
Author Organization [employer] Address [address] [facility] [address] [place] [address] Care Team Providers Care Sales Negotiator Name Role Phone Tyesha Rogers MD Primary [...] Description 06/02/2025 9:00 AM EDT Office Visit [facility] [address] [place] [address] Tyesha Rogers MD [address] [place] [address] 06/24/2025 9:00 AM EDT Office Visit [facility] [address] [place] [address] Raf, Katharine, OD [address] [place] [address] documented as of this encounter Visit Diagnoses Not on filedocumented in this encounter Additional Health Concerns Assessment Noted Time PHQ-9 Depression Total Score: 14 025 1:25 PM EDT documented as of this encounter Care Teams Sales Negotiator Relationship Specialty Start Date End Date Tyesha Rogers MD [address] [place] [address] PCP - General Family Medicine 04/25/19 documented as of this encounter
--- OUTSIDE RECORDS SUMMARY | 2025-05-26 19:47 | XMS_ITS | Encounter Summary ---
Author Organization [facility] Address [address] [place] [address] Care Team Providers Care Machining Engineer Name Role Phone Donna Donis MD Primary Care Provider Tyesha Cheatham Primary Care Provider Unavailcaro e Encounter Details Date Type Department Care Team Description 08/20/2020 Orders Only Cardio [facility] Diag Testing [address] [place] [address] Community, Pcp Chest pain, unspecified type (Primary Dx) Social History Tobacco Use Types Packs/Day Years Used Date Smoking Tobacco: Every Day Cigarettes 30 Smokeless Tobacco: Never Comments:trying to quit Alcohol Use Standard Drinks/Week Comments No 0 (1 standard drink = 0.6 oz pur e alcohol) Sex Assigned at Date Recorded Not on file documented as of this encounter Plan of Treatment Scheduled Orders Name Type Priority Associated Diagnoses Orde r Schedule CARDIOVASCULAR STRESS TEST REPORT Cardiology Routine Chest pain, unspecified type Expected: 08/20/2020, Expires: 08/20/2021 documented as of this encounter Visit Diagnoses Diagnosis Chest pain, unspecified type- Primary documented in this encounter Care Teams Machining Engineer Relationship Specialty Start Date End Date Donna Donis MD PCP - General Internal Medicine 01/08/19 12/01/21 Tyesha Rogers PCP - General Family Practice 12/02/21 documented as of this encounter
--- OUTSIDE RECORDS SUMMARY | 2025-05-26 19:47 | XMS_ITS | Encounter Summary ---
Author Organization [employer] Address [address] [facility] [address] [place] [address] Care Team Providers Care Supervisor Word Processing Name Role Phone Tyesha Rogers MD Primary Care Provider [phone] Encounter Details Date Type Department Care Team (Late st Contact Info) Description 12/10/2024 Orders Only [facility] [address] [place], [place] [phone] Tyesha Rogers MD [address] [place], [place] [phone] Neuropathy Social History Tobacco Use Types Packs/Day [...] Description 06/02/2025 9:00 AM EDT Office Visit [facility] [address] [place] [address] Tyesha Rogers MD [address] [place] [address] 06/24/2025 9:00 AM EDT Office Visit [facility] OPTOMETRY [address] [place] [address] Raf, Katharine, OD [address] [place] [address] documented as of this encounter Visit Diagnoses Diagnosis Neuropathy Mononeuritis of unspecified site documented in this encounter Additional Health Concerns Assessment Noted Time PHQ-9 Depression Total Score: 15 025 11:52 AM EST documented as of this encounter Care Teams Supervisor Word Processing Relationship Specialty Start Date End Date Tyesha Rogers MD [address] [place] [address] PCP - General Family Medicine 04/25/19 documented as of this encounter
--- OUTSIDE RECORDS SUMMARY | 2025-05-26 19:47 | XMS_ITS | Encounter Summary ---
Author Organization [employer] Address [address] [facility] [address] [place] [address] Care Team Providers Care Geotechnician Name Role Phone Tyesha Rogers MD Primary Care Provider [phone] Reason for Visit * Reason Onset Date Comments Nurse Triage 08/30/2023 Encounter Details Date Type Department Care Team ([facility] st Contact Info) Description 08/30/2023 Telephone [facility] [address] [place], [place] [phone] Tyesha Rogers MD [address] [place] [address] Nurse Triage Social History Tobacco Use Types [...] Call to Emily Tucker, 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 Pt reported CP and elevated BS. Pt alert and speaking clearly while utilization review rn. Sent to team for ER status check [...] and stated is on her way to [facility]. * Telephone Encounter - Blanca Rashid [...] Office Visit [facility] [address] [place] [address] Tyesha Rogers MD [address] [place] [address] 06/24/2025 9:00 AM EDT Office Visit [facility] OPTOMETRY [address] [place] [address] Raf, Katharine, OD [address] [place] [address] documented as of this encounter Visit Diagnoses Not on filedocumented in this encounter Additional Health Concerns Assessment Noted Time PHQ-9 Depression Total Score: 21 023 9:42 AM EDT documented as of this encounter Care Teams Geotechnician Relationship Specialty Start Date End Date Tyesha Rogers MD [address] [place] [address] PCP - General Family Medicine 04/25/19 documented as of this encounter
--- OUTSIDE RECORDS SUMMARY | 2025-05-26 19:47 | XMS_ITS | Encounter Summary ---
Author Organization [facility] Address [address] [facility] [place] [id number] Care Team Providers Care Bench Technician Name Role Phone Pilar Coombs MD Primary Care Provider Unavail able Donna Donis MD Primary Care Provider Tyesha Cheatham Primary Care Provider Unavailabl e Encounter Details Date Type Department Care Team Description 01/29/2017 Hospital Medical Records [address] [place] [address] Anthony Breen Social History Tobacco Use Types [...] on filedocumented in this encounter Care Teams Bench Technician Relationship Specialty Start Date End Date Pilar Coombs MD PCP - General Internal Medicine 09/15/16 01/07/19 Donna Donis MD PCP - General Internal Medicine 01/08/19 12/01/21 Tyesha Rogers PCP - General Family Practice 12/02/21 documented as of this encounter
--- OUTSIDE RECORDS SUMMARY | 2025-05-26 19:47 | XMS_ITS | Encounter Summary ---
Author Organization [employer] Address 75 [facility] 7t [place] [address] Care Team Providers Care Ios Architect Name Role Phone Tyesha Rogers MD Primary Care Provider [phone] Encounter Details Date Type Department Care Team (Late st Contact Info) Description 02/21/2025 Orders Only [facility] MEDICINE [address] [place], [place] [phone] Tyesha Rogers MD [address] [place], [place] [phone] Social History Tobacco Use Types Packs/Day Years [...] Description 06/02/2025 9:00 AM EDT Office Visit [facility] MED[facility]INE [address] [place] [address] Tyesha Rogers MD [address] [place] [address] 06/24/2025 9:00 AM EDT Office Visit [facility] OPTOMETRY [address] [place] [address] Raf, Katharine, OD 230 [place] [address] documented as of this encounter Visit Diagnoses Not on filedocumented in this encounter Additional Health Concerns Assessment Noted Time PHQ-9 Depression Total Score: 14 025 1:25 PM EDT documented as of this encounter Care Teams Ios Architect Relationship Specialty Start Date End Date Tyesha Rogers MD [address] [place] [address] PCP - General Family Medicine 04/25/19 documented as of this encounter
--- OUTSIDE RECORDS SUMMARY | 2025-05-26 19:47 | XMS_ITS | Encounter Summary ---
Author Organization [employer] Address 75 [facility] 7 [place] [address] Care Team Providers Care Flying Ii Instructor Name Role Phone Tyesha Rogers MD Primary Care Provider [phone] Reason for Visit * Reason Onset Date Comments Telephone Call 05/23/2025 Encounter Details Date Type Department Care Team ([facility] st Contact Info) Description 05/23/2025 Telephone [facility] [address] [place], [place] [phone] Tyesha Rogers MD 230 [place] [address] Telephone Call Social History Tobacco Use Types [...] Description 06/02/2025 9:00 AM EDT Office Visit [facility] [address] [place] [address] Tyesha Rogers MD [address] [place] [address] 06/24/2025 9:00 AM EDT Office Visit [facility] [address] [place] [address] Katharine Carbone, OD [address] [place] [address] documented as of this encounter Visit Diagnoses Not on filedocumented in this encounter Additional Health Concerns Assessment Noted Time PHQ-9 Depression Total Score: 14 025 1:25 PM EDT documented as of this encounter Care Teams Flying Ii Instructor Relationship Specialty Start Date End Date Tyesha Rogers MD 230 [place] [address] PCP - General Family Medicine 04/25/19 documented as of this encounter
--- OUTSIDE RECORDS SUMMARY | 2025-05-26 19:47 | XMS_ITS | Encounter Summary ---
Author Organization [employer] Address 75 [facility] 7t [place] [address] Care Team Providers Care Sr Vice President Name Role Phone Tyesha Rogers MD Primary Care Provider [phone] Reason for Visit * Reason Onset Date Comments Nurse Triage 05/26/2025 Encounter Details Date Type Department Care Team ([facility] st Contact Info) Description 05/26/2025 Telephone [facility] MEDICINE [address] [place] [address] Chung Gu, RN [address] [place] [address] Nurse Triage Social History Tobacco Use Types [...] encounter Miscellaneous Notes * Telephone Encounter - Chung Gu RN - 05/26/2025 11:56 AM EDT Pt walked into [facility] after also having gone to [facility] and [facility] (no appointments available until afternoon) complaining of intense abdominal pain, nausea, chills x 3 days and no BM for 3 days, is passing gas. Pt has history of surgery for small bowel obstruction 1 year ago. Pt requesting ambulance to [facility]. BP 151/96, HR 85. Blood glucose [facility]. Dr. Connell evaluated pt and 911 called. [facility] ambulance responded and warm hand off was given and pt was transported to [facility]. documented in this encounter Plan of Treatment Upcoming Encounters Date Type Department Care Team (Late st Contact Info) Description 06/02/2025 9:00 AM EDT Office Visit [facility] MEDICINE [address] [place] [address] Tyesha Rogers MD [address] [place] [address] 06/24/2025 9:00 AM EDT Office Visit [facility] OPTOMETRY [address] [place] [address] Katharine Carbone, OD 230 [place] [address] documented as of this encounter Visit Diagnoses Not on filedocumented in this encounter Additional Health Concerns Assessment Noted Time PHQ-9 Depression Total Score: 14 025 1:25 PM EDT documented as of this encounter Care Teams Sr Vice President Relationship Specialty Start Date End Date Tyesha Rogers MD [address] [place] [address] PCP - General Family Medicine 04/25/19 documented as of this encounter
--- OUTSIDE RECORDS SUMMARY | 2025-05-26 19:47 | XMS_ITS | Encounter Summary ---
Author Organization [employer] Address 75 [facility] 7 [place] [address] Care Team Providers Care Working Foreman Name Role Phone Tyesha Rogers MD Primary Care Provider [phone] Reason for Visit * Reason Onset Date Comments Call Back Request 05/01/2025 Encounter Details Date Type Department Care Team ([facility] st Contact Info) Description 05/01/2025 Telephone [facility] MEDICINE [address] [place], [place] [phone] Tyesha Rogers MD [address] [place] [address] Call Back Request Social History Tobacco Use [...] 06/02/2025 9:00 AM EDT Office Visit [facility] MED[facility]INE [address] [place] [address] Tyesha Rogers MD [address] [place] [address] 06/24/2025 9:00 AM EDT Office Visit [facility] OPTOMETRY [address] [place] [address] Katharine Carbone, OD [address] [place] [address] documented as of this encounter Visit Diagnoses Not on filedocumented in this encounter Additional Health Concerns Assessment Noted Time PHQ-9 Depression Total Score: 14 025 1:25 PM EDT documented as of this encounter Care Teams Working Foreman Relationship Specialty Start Date End Date Tyesha Rogers MD [address] [place] [address] PCP - General Family Medicine 04/25/19 documented as of this encounter
--- OUTSIDE RECORDS SUMMARY | 2025-05-26 19:47 | XMS_ITS | Encounter Summary ---
Author Organization [employer] Address 75 [facility] 7t [place] [address] Care Team Providers Care Basket Bottom Machine Operator Name Role Phone Tyesha Rogers MD Primary Care Provider [phone] Reason for Visit * Reason Comments Med Refill Encounter Details Date Type Department Care Team ([facility] st Contact Info) Description 11/29/2023 Refill [facility] MEDICINE [address] [place], [place] [phone] Tyesha Rogers MD [address] [place], [place] [phone] Social History Tobacco Use Types Packs/Day Years [...] 06/02/2025 9:00 AM EDT Office Visit [facility] MEDICINE [address] [place] [address] Tyesha Rogers MD [address] [place] [address] 06/24/2025 9:00 AM EDT Office Visit [facility] OPTOMETRY [address] [place] [address] Raf, Katharine, OD [address] [place] [address] documented as of this encounter Visit Diagnoses Not on filedocumented in this encounter Additional Health Concerns Assessment Noted Time PHQ-9 Depression Total Score: 21 023 9:42 AM EDT documented as of this encounter Care Teams Basket Bottom Machine Operator Relationship Specialty Start Date End Date Tyesha Rogers MD [address] [place] [address] PCP - General Family Medicine 04/25/19 documented as of this encounter
--- OUTSIDE RECORDS SUMMARY | 2025-05-26 19:47 | XMS_ITS | Encounter Summary ---
Author Organization [employer] Address 75 [facility] 7 [place] [address] Care Team Providers Care Automatic Teller Machine Servicer Name Role Phone Tyesha Rogers MD Primary Care Provider [phone] Reason for Visit * Reason Onset Date Comments Appointment Request 01/13/2025 Encounter Details Date Type Department Care Team ([facility] st Contact Info) Description 01/13/2025 Telephone [facility] MEDICINE [address] [place], [place] [phone] Tyesha Rogers MD [address] [place], [place] [phone] Appointment Request Social History Tobacco Use Types [...] was cancelled to be rescheduled due to chief underwriter not finding availability please return call to pt to be scheduled. Callback number [phone] Appointment type - Follow Up Notes - F/U allergic reaction. Sent to ED at last appt. Provider - Tyesha Rogers [phone] documented in this encounter Plan of Treatment Upcoming Encounters Date Type Department Care Team (Late st Contact Info) Description 06/02/2025 9:00 AM EDT Office Visit [facility] MEDICINE [address] [place] [address] Tyesha Rogers MD [address] [place], [place] [phone] 06/24/2025 9:00 AM EDT Office Visit [facility] OPTOMETRY [address] [place] [address] Katharine Carbone, OD [address] [place] [address] documented as of this encounter Visit Diagnoses Not on filedocumented in this encounter Additional Health Concerns Assessment Noted Time PHQ-9 Depression Total Score: 14 025 1:25 PM EDT documented as of this encounter Care Teams Automatic Teller Machine Servicer Relationship Specialty Start Date End Date Tyesha Rogers MD [address] [place] [address] PCP - General Family Medicine 04/25/19 documented as of this encounter
--- OUTSIDE RECORDS SUMMARY | 2025-05-26 19:47 | XMS_ITS | Encounter Summary ---
Author Organization [facility] Address [address] [place] [address] Care Team Providers Care Civil Service Worker Name Role Phone Pilar Coombs MD Primary Care Provider Unavail able Donna Donis MD Primary Care Provider Tyesha Cheatham Primary Care Provider Unavailabl e Encounter Details Date Type Department Care Team Description 02/08/2017 Hospital Medical Records [address] [place] [address] Soniya Patel PA-C Social History Tobacco Use [...] on filedocumented in this encounter Care Teams Civil Service Worker Relationship Specialty Start Date End Date Pilar Coombs MD PCP - General Internal Medicine 09/15/16 01/07/19 Donna Donis MD PCP - General Internal Medicine 01/08/19 12/01/21 Tyesha Rogers PCP - General Family Practice 12/02/21 documented as of this encounter
--- OUTSIDE RECORDS SUMMARY | 2025-05-26 19:47 | XMS_ITS ---
Author Organization [employer] Address [address] [place] [address] Care Team Providers Care Pediatric Immunologist Name Role Phone Tyesha Rogers MD Primary Care Provider [phone] Complex Status:Enrolled (Active) Start date:12/11/2024 Enrollment date:12/31/2024 Enrollment reason:ADT Feed Overview ED- Pt went to [facility] ED on 12/10/24. Case Team Name Relationship Phone Angel Sanchez RN(Responsible Staff) Registered Katelin gomez [phone] Continued Care and Services Coordination
--- OUTSIDE RECORDS SUMMARY | 2025-05-26 19:47 | XMS_ITS | Encounter Summary ---
Author Organization [employer] Address 75 [facility] 7 [place] [address] Care Team Providers Care Shield Operator Name Role Phone Tyesha Rogers MD Primary Care Provider [phone] Encounter Details Date Type Department Care Team (Late st Contact Info) Description 01/28/2025 Telephone [facility] MEDICINE [address] [place], [place] [phone] Mira Vanegas, PharmD [address] [place] [address] Social History Tobacco Use Types Packs/Day Years [...] Description 06/02/2025 9:00 AM EDT Office Visit [facility] MEDICINE [address] [place] [address] Tyesha Rogers MD [address] [place] [address] 06/24/2025 9:00 AM EDT Office Visit [facility] OPTOMETRY [address] [place] [address] Raf, Katharine, OD [address] [place] [address] documented as of this encounter Visit Diagnoses Not on filedocumented in this encounter Additional Health Concerns Assessment Noted Time PHQ-9 Depression Total Score: 14 025 1:25 PM EDT documented as of this encounter Care Teams Shield Operator Relationship Specialty Start Date End Date Tyesha Rogers MD [address] [place] [address] PCP - General Family Medicine 04/25/19 documented as of this encounter
--- OUTSIDE RECORDS SUMMARY | 2025-05-26 19:47 | XMS_ITS | Encounter Summary ---
Author Organization [facility] Address [address] [place] [address] Care Team Providers Care Education Nurse Name Role Phone Imelda Camarillo DO Primary [...] Department Care Team Description 03/19/2015 Telephone Adult [address] [address] Imelda Camarillo DO Provider Call Back Social [...] Pt states she thinks she was at [facility] in either December, January or February [...] on filedocumented in this encounter Care Teams Education Nurse Relationship Specialty Start Date End Date Imelda Camarillo DO PCP - General Internal Medicine 12/26/14 08/30/15 Casandra Duong MD PCP - General Internal Medicine 08/31/15 01/07/16 [facility], Pcp PCP - General Internal Medicine 01/08/16 09/14/16 Pilar Coombs MD PCP - General Internal Medicine 09/15/16 01/07/19 Donna Donis MD PCP - General Internal Medicine 01/08/19 12/01/21 Tyesha Rogers PCP - General Family Practice 12/02/21 documented as of this encounter
--- OUTSIDE RECORDS SUMMARY | 2025-05-26 19:47 | XMS_ITS | Encounter Summary ---
Author Organization [employer] Address [address] [place] [address] Care Team Providers Care Afterschool Name Role Phone Tyesha Rogers MD Primary Care Provider [phone] Reason for Referral * Consultation (Routine) - Closed Specialty Diagnoses / Procedures Referred By Contac t Referred To Contact Pharmacy Diagnoses SBO (small bowel obstruction) (CMS/HCC) Tati Neri PharmD [address] [place] [address] Phone: tel: fax: Referral ID Status Reason Start Date Expiration Date V isits Requested Visits Authorized [id number] Closed Continuity of Care 12/07/2023 12/06/2024 1 1 Encounter Details Date Type Department Care Team (Late st Contact Info) Description 12/07/2023 Orders Only [facility] MEDICINE [address] [place], [place] [phone] Tati Neri PharmD [address] [place], [place] [phone] SBO (small bowel obstruction) (CMS/HCC) (Primary Dx) [...] Description 06/02/2025 9:00 AM EDT Office Visit [facility] MEDICINE [address] [place] [address] Tyesha Rogers MD [address] [place] [address] 06/24/2025 9:00 AM EDT Office Visit [facility] OPTOMETRY [address] [place] [address] Katharine Carbone, ZAHIDA [address] [place] [address] Scheduled Referrals Name Type Priority Associated Diagnoses [...] documented as of this encounter Care Teams Afterschool Relationship Specialty Start Date End Date Tyesha Rogers MD [address] [place] [address] PCP - General Family Medicine 04/25/19 documented as of this encounter
--- OUTSIDE RECORDS SUMMARY | 2025-05-26 19:47 | XMS_ITS | Encounter Summary ---
Author Organization [employer] Address 75 [facility] 7t [place] [address] Care Team Providers Care Combatant Diver Qualified Name Role Phone Tyesha Rogers MD Primary Care Provider [phone] Encounter Details Date Type Department Care Team (Late st Contact Info) Description 04/23/2025 Orders Only [facility] MEDICINE [address] [place], [place] [phone] Tyesha Rogers MD [address] [place], [place] [phone] Social History Tobacco Use Types Packs/Day Years [...] 9:00 AM EDT Office Visit [facility] MEDICINE [address] [place] [address] Tyesha Rogers MD [address] [place] [address] 06/24/2025 9:00 AM EDT Office Visit [facility] OPTOMETRY [address] [place] [address] RafKatharine fu, OD [address] [place] [address] documented as of this encounter Procedures Procedure Name Priority Date/Time Associated Diagnosis Comments GLUCOSE, WHOLE BLOOD Routine 04/23/2025 11:53 AM EDT GLUCOSE, WHOLE BLOOD Routine 04/23/2025 11:21 AM EDT GLUCOSE, WHOLE BLOOD Routine 04/23/2025 10:52 AM EDT documented in this encounter Results * (ABNORMAL) Glucose, Whole Blood (04/23/2025 11:53 AM EDT) Glucose, Whole Blood 378() 60 - 115 mg/dL [facility] Comment:METER #: [id number] 04/23/2025 11:5 3 AM EDT 04/23/2025 11:57 AM EDT us Generic External Data Provider LAB BLOOD ORDERAB LES Final Result Performing Organization Address [facility] Co de Phone Number [facility] [address] [place] [phone] * (ABNORMAL) Glucose, Whole Blood (04/23/2025 11:21 AM EDT) Glucose, Whole Blood 359(HH) 60 - 115 mg/dL [facility] Comment:METER #: [id number] 7 04/23/2025 11:2 1 AM EDT 04/23/2025 11:24 AM EDT us Generic External Data Provider LAB BLOOD ORDERAB LES Final Result Performing Organization Address [facility] Co de Phone Number [facility] [address] [place] [address] [phone] * (ABNORMAL) Glucose, Whole Blood (04/23/2025 10:52 AM EDT) Glucose, Whole Blood 371(HH) 60 - 115 mg/dL [facility] Comment:METER #: [id number] 7 04/23/2025 10:5 2 AM EDT 04/23/2025 10:55 AM EDT us Generic External Data Provider LAB BLOOD ORDERAB LES Final Result Performing Organization Address [facility] de Phone Number [facility] [address] [place] [phone] documented in this encounter Visit Diagnoses Not on filedocumented in this encounter Additional Health Concerns Assessment Noted Time PHQ-9 Depression Total Score: 14 12/31/2 025 1:25 PM EDT documented as of this encounter Care Teams Combatant Diver Qualified Relationship Specialty Start Date End Date Tyesha Rogers MD [address] [place] [address] PCP - General Family Medicine 04/25/19 documented as of this encounter
--- OUTSIDE RECORDS SUMMARY | 2025-05-26 19:47 | XMS_ITS | Encounter Summary ---
Author Organization [employer] Address 75 [facility] 7 [place] [address] Care Team Providers Care Egg Candler Name Role Phone Tyesha Rogers MD Primary Care Provider [phone] Reason for Visit * Reason Onset Date Comments Hospital Follow-up 05/07/2025 Encounter Details Date Type Department Care Team (Late st Contact Info) Description 05/07/2025 Telephone [facility] MEDICINE [address] [place], [place] [phone] Tyesha Rogers MD [address] [place] [address] Hospital Follow-up Social History Tobacco Use Types [...] pt requesting a HDF appt. Hospital: [facility] Date of admission: 04/23/2025 Discharge date: 04/23/2025 Diagnosed: Fall twist of right ankle *Send message to [facility] Care Coordinators Spoke to: Heather with [facility] Contact [phone] documented in this encounter Plan of Treatment Upcoming Encounters Date Type Department Care Team (Late st Contact Info) Description 06/02/2025 9:00 AM EDT Office Visit [facility] MEDICINE [address] [place] [address] Tyesha Rogers MD [address] [place] [address] 06/24/2025 9:00 AM EDT Office Visit [facility] OPTOMETRY [address] [place] [address] Katharine Carbone, OD [address] [place] [address] documented as of this encounter Visit Diagnoses Not on filedocumented in this encounter Additional Health Concerns Assessment Noted Time PHQ-9 Depression Total Score: 14 025 1:25 PM EDT documented as of this encounter Care Teams Egg Candler Relationship Specialty Start Date End Date Tyesha Rogers MD [address] [place] [address] PCP - General Family Medicine 04/25/19 documented as of this encounter
--- OUTSIDE RECORDS SUMMARY | 2025-05-26 19:47 | XMS_ITS | Encounter Summary ---
Author Organization [facility] Address [address] [facility] [place] [address] Care Team Providers Care Pond Scaler Name Role Phone Pilar Coombs MD Primary Care Provider Unavail able Donna Donis MD Primary Care Provider Tyesha Cheatham Primary Care Provider Unavailabl e Encounter Details Date Type Department Care Team Description 01/29/2017 Hospital Medical Records [address] [place] [address] Endy Rose PA Social History Tobacco Use [...] on filedocumented in this encounter Care Teams Pond Scaler Relationship Specialty Start Date End Date Pilar Coombs MD PCP - General Internal Medicine 09/15/16 01/07/19 Donna Donis MD PCP - General Internal Medicine 01/08/19 12/01/21 Tyesha Rogers PCP - General Family Practice 12/02/21 documented as of this encounter
--- OUTSIDE RECORDS SUMMARY | 2025-05-26 19:47 | XMS_ITS | Encounter Summary ---
Author Organization [facility] Address [address] [facility] [place] [address] Care Team Providers Care Fire Manager Name Role Phone Pilar Coombs MD Primary Care Provider Unavail able Donna Donis MD Primary Care Provider Tyesha Cheatham Primary Care Provider Unavailabl e Encounter Details Date Type Department Care Team Description 02/01/2017 Hospital Medical Records [address] [place] [address] Christa Mosley Social History Tobacco Use Types Packs/Day Years [...] on filedocumented in this encounter Care Teams Fire Manager Relationship Specialty Start Date End Date Pilar Coombs MD PCP - General Internal Medicine 09/15/16 01/07/19 Donna Donis MD PCP - General Internal Medicine 01/08/19 12/01/21 Tyesha Rogers PCP - General Family Practice 12/02/21 documented as of this encounter
--- OUTSIDE RECORDS SUMMARY | 2025-05-26 19:47 | XMS_ITS | Encounter Summary ---
Author Organization [facility] Address [address] [place] [address] Care Team Providers Care Coal Trimmer Machine Operator Name Role Phone Loren Dickens MD Primary Care Provider Un available [facility], Pcp Primary Care Provider Unavailcaro e Imelda Camarillo DO Primary Care Pro vider Unavailable Casandra Duong MD Primary Care Provider Unavaila ble [facility], Pcp Primary Care Provider UnavailPilar Reed MD Primary Care Provider Unavail able Donna Donis MD Primary Care Provider Tyesha Cheatham Primary Care Provider Unavailabl e Encounter Details Date Type Department Care Team Description 09/17/2009 Hospital Medical Records [address] [place] [address] Yazmin Blair MD Social History Tobacco Use Types Packs/Day [...] on filedocumented in this encounter Care Teams Coal Trimmer Machine Operator Relationship Specialty Start Date End Date Loren Dickens MD PCP - General 06/30/08 09/12/12 [facility], Pcp PCP - General Internal Medicine 09/13/12 12/25/14 Imelda Camarillo DO PCP - General Internal [...]
--- OUTSIDE RECORDS SUMMARY | 2025-05-26 19:47 | XMS_ITS | Encounter Summary ---
Author Organization [employer] Address [address] [facility] 7t [place] [address] Care Team Providers Care X Ray Equipment Tester Name Role Phone Tyesha Rogers MD Primary Care Provider [phone] Encounter Details Date Type Department Care Team (Late st Contact Info) Description 05/23/2025 Orders Only [facility] MEDICINE [address] [place], [place] [phone] [facility] [address] [place] [address] Social History Tobacco Use Types Packs/Day Years [...] 06/02/2025 9:00 AM EDT Office Visit [facility] MEDICINE [address] [place] [address] Tyesha Rogers MD 230 [place] [address] 06/24/2025 9:00 AM EDT Office Visit [facility] OPTOMETRY [address] [place] [address] Raf, Katharine, OD [address] [place] [address] documented as of this encounter Procedures Procedure Name Priority Date/Time Associated Diagnosis Comments XR KUB AND UPRIGHT 2 VIEWS Routine 05/26/2025 2:37 PM EDT GRAM STAIN RESULT (NON ORDERABLE) Routine 05/23/2025 3:44 PM EDT documented in this encounter Results * XR KUB and Upright 2 Views (05/26/2025 2:37 PM EDT) Anatomical Region Laterality Modality Radiographic Stephanie ging 05/26/2025 2:37 PM EDT Narrative 05/26/2025 2:50 PM EDT [address] [address] XRay Report Signed Patient: Emily Tucker MR#: [id number] : 1970 Acct:[id number] Age/Sex: 54 / F ADM Date: 05/26/25 Loc: HO.ED Attending Dr: Ordering Physician: Sabi Terrell NP Date of Service: 05/26/25 Procedure(s): XR KUB Accession Number(s): [id number] cc: Tyesha Rogers MD; Sabi Terrell NP Reason for Exam: hx sbo, abd pain EXAMINATION: XR ABDOMEN KUB CLINICAL INDICATION: hx sbo, abd pain COMPARISON: None available. TECHNIQUE: AP view of the abdomen. FINDINGS: Surgical clips in right upper quadrant likely from cholecystectomy. The bowel gas pattern is unremarkable. There is moderate stool right colon, greater than the left colon. XR/XR KUB IMPRESSION: Moderate stool and gas is present in the colon. Electronically signed by: Jasper Macias MD 05/26/2025 02:47 PM EDT Dictated By: Jasper Macias MD Signed By: <Electronically signed by Jasper Macias MD in OV> 05/26/25 1447 DD/ 1437 TD/TT: 05/26/25 1443 Program Therapist: Procedure Note Donotuseinterpreter, Image - 05/26/[address] [address] XRay Report Signed Patient: Emily TuckerMR#: [id number] : 1970Acct:[id number] Age/Sex: 54 / FADM Date: 05/26/25 Loc: HO.ED Attending Dr: Ordering Physician: Sabi Terrell NP Date of Service: 05/26/25 Procedure(s): XR KUB Accession Number(s): [id number] cc: Tyesha Rogers MD; Nidhi,Sabi BOILER OPERATOR Reason for Exam: hx sbo, abd pain EXAMINATION: XR ABDOMEN KUB CLINICAL INDICATION: hx sbo, abd pain COMPARISON: None available. TECHNIQUE: AP view of the abdomen. FINDINGS: Surgical clips in right upper quadrant likely from cholecystectomy. The bowel gas pattern is unremarkable. There is moderate stool right colon, greater than the left colon. XR/XR KUB IMPRESSION: Moderate stool and gas is present in the colon. Electronically signed by: Jasper Macias MD 05/26/2025 02:47 PM EDT RP Dictated By: Jasper Macias MD Signed By: <Electronically signed by Jasper Macias MD in OV> 05/26/25 1447 DD/ 1437 TD/TT: 05/26/25 1443 Program Therapist: [facility] External Provider IMG XR PROCEDURES Final Result * Gram Stain Result (05/23/2025 3:44 PM EDT) 05/23/2025 3:44 PM EDT 05/23/2025 6:25 PM EDT Comment:Abdomen Narrative [facility] - 05/26/2025 7:26 AM EDT Gram stain results: No polys 1+ epithelial cells 2+ Gram-positive cocci Staphylococcus aureus Quant Org ID 4+ Staphylococcus aureus: Clindamycin <=0.25(R) Staphylococcus aureus: Erythromycin >=8(R) Staphylococcus aureus: Levofloxacin 0.25(S) Staphylococcus aureus: Oxacillin 0.5(S) Staphylococcus aureus: Penicillin-G >=0.5(R) Staphylococcus aureus: Tetracycline <=1(S) Staphylococcus aureus: Trimethoprim/Sulfamethoxazole <=10(S) Specimen Source: Abdomen [facility] GRAPHIC DESIGNER HISTORICAL/NON ORDERABLE LABS Final Result [facility] [address] [place] [address] [phone] documented in this encounter Visit Diagnoses Not on filedocumented in this encounter Additional Health Concerns Assessment Noted Time PHQ-9 Depression Total Score: 14 025 1:25 PM EDT documented as of this encounter Care Teams X Ray Equipment Tester Relationship Specialty Start Date End Date Tyesha Rogers MD [address] [place] [address] PCP - General Family Medicine 04/25/19 documented as of this encounter
--- OUTSIDE RECORDS SUMMARY | 2025-05-26 19:47 | XMS_ITS | Encounter Summary ---
Author Organization [facility] Address [address] [place] [address] Care Team Providers Care Chestnut Tanner Name Role Phone Tyesha Rogers Primary Care Provider Unavailabl e Encounter Details Date Type Department Care Team Description 09/18/2023 [facility] Records [facility] [address] [facility] [address] [place] [phone] Marilyn Mullins MD [address] [facility] [address] [place] [address] Social History Tobacco Use Types Packs/Day Years [...] on filedocumented in this encounter Care Teams Chestnut Tanner Relationship Specialty Start Date End Date Tyesha Rogers PCP - General Family Practice 12/02/21 documented as of this encounter
--- OUTSIDE RECORDS SUMMARY | 2025-05-26 19:47 | XMS_ITS ---
Author Organization [employer] Address [address] [place] [address] Care Team Providers Care Entry Level Account Manager Name Role Phone Tyesha Rogers MD Primary Care Provider [facility] Status:Enrolled (Active) Start date:12/11/2024 Enrollment date:12/11/2024 Enrollment reason:ADT Feed Overview ED- Pt went to [facility] on 12/10/24. Case Team Name Relationship Phone Aminata York(Responsible Staff) Continued Care and Services Coordination
--- OUTSIDE RECORDS SUMMARY | 2025-05-26 19:47 | XMS_ITS | Encounter Summary ---
Author Organization [facility] Address [address] [place] [address] Care Team Providers Care Strike On Machine Operator Name Role Phone Imelda Camarillo DO [...] Department Care Team Description 03/23/2015 Telephone Adult [address] [address] Imelda Camarillo DO Form (Eversourse electric) Social [...] on filedocumented in this encounter Care Teams Strike On Machine Operator Relationship Specialty Start Date End [...]
--- OUTSIDE RECORDS SUMMARY | 2025-05-26 19:47 | XMS_ITS | Encounter Summary ---
Author Organization [facility] Address [address] [place] [address] Care Team Providers Care Refinery Operator Gas Plant Name Role Phone Pilar Coombs MD Primary Care Provider Unavail able Donna Donis MD Primary Care Provider Tyesha Cheatham Primary Care Provider Unavailabl e Encounter Details Date Type Department Care Team Description 04/01/2017 Release of Information Medical Records [address] [place] [id number] Abstract, Provider Social History Tobacco Use Types [...] on filedocumented in this encounter Care Teams Refinery Operator Gas Plant Relationship Specialty Start Date End Date Pilar Coombs MD PCP - General Internal Medicine 09/15/16 01/07/19 Donna Donis MD PCP - General Internal Medicine 01/08/19 12/01/21 Tyesha Rogers PCP - General Family Practice 12/02/21 documented as of this encounter
--- OUTSIDE RECORDS SUMMARY | 2025-05-26 19:47 | XMS_ITS | Encounter Summary ---
Author Organization [employer] [facility] Address [address] [place] [address] Care Team Providers Care Animal Care Assistant Name Role Phone Donna Donis MD Primary Care Provider Tyesha Cheatham Primary Care Provider Unavailabl e Encounter Details Date Type Department Care Team Description 08/13/2020 Hospital Medical Records [address] [place] [address] [facility] Social History Tobacco Use Types Packs/Day Years [...] Name Priority Date/Time Associated Diagnosis Comments OUTSIDE EKG Routine 08/14/2020 documented in this encounter Results * OUTSIDE EKG (08/14/2020) Provider Default CARDIOLOGY documented in this encounter Visit Diagnoses Not on filedocumented in this encounter Care Teams Animal Care Assistant Relationship Specialty Start Date End Date Donna Donis MD PCP - General Internal Medicine 01/08/19 12/01/21 Tyesha Rogers PCP - General Family Practice 12/02/21 documented as of this encounter
--- OUTSIDE RECORDS SUMMARY | 2025-05-26 19:47 | XMS_ITS | Encounter Summary ---
Author Organization [email or web address] Address [address] [facility] 7t [place] [address] Care Team Providers Care School Admissions Representative Name Role Phone Tyesha Rogers MD Primary Care Provider [phone] Reason for Visit * Reason Comments Med Refill Encounter Details Date Type Department Care Team ([facility] st Contact Info) Description 01/19/2025 Refill [facility] MEDICINE [address] [place], [place] [phone] Tyesha Rogers MD [address] [place], [place] [phone] Social History Tobacco Use Types Packs/Day Years [...] 9:00 AM EDT Office Visit [facility] MEDICINE [address] [place] [address] Tyesha Rogers MD [address] [place] [address] 06/24/2025 9:00 AM EDT Office Visit [facility] OPTOMETRY [address] [place] [address] Raf, Katharine, OD [address] [place] [address] documented as of this encounter Visit Diagnoses Not on filedocumented in this encounter Additional Health Concerns Assessment Noted Time PHQ-9 Depression Total Score: 14 025 1:25 PM EDT documented as of this encounter Care Teams School Admissions Representative Relationship Specialty Start Date End Date Tyesha Rogers MD [address] [place] [address] PCP - General Family Medicine 04/25/19 documented as of this encounter
--- OUTSIDE RECORDS SUMMARY | 2025-05-26 19:47 | XMS_ITS | Encounter Summary ---
Author Organization [employer] Address [address] [facility] 7t [place] [address] Care Team Providers Care Cash Register Balancer Name Role Phone Tyesha Rogers MD Primary Care Provider Encounter Details Date Type Department Care Team (Late st Contact Info) Description 05/26/2025 Orders Only GENERIC EXTERNAL DATA DEPARTMENT Provider, Generic External Data Social History Tobacco Use Types Packs/Day Years [...] Description 06/02/2025 9:00 AM EDT Office Visit [facility] MEDICINE [address] [place] [address] Tyesha Rogers MD [address] [place] [address] 06/24/2025 9:00 AM EDT Office Visit [facility] OPTOMETRY [address] [place] [address] Raf, Katharine, OD [address] [place] [address] documented as of this encounter Procedures Procedure Name Priority Date/Time Associated Diagnosis Comments GLUCOSE, WHOLE BLOOD Routine 05/26/2025 5:15 PM EDT GLUCOSE, WHOLE BLOOD Routine 05/26/2025 3:34 PM EDT URINALYSIS, COMPLETE, WITH REFLEX TO CULTURE Routine 05/26/2025 3:29 PM EDT documented in this encounter Results * (ABNORMAL) Glucose, Whole Blood (05/26/2025 5:15 PM EDT) Glucose, Whole Blood 356(HH) 60 - 115 mg/dL [facility] Comment:METER #: [id number] 05/26/2025 5:15 PM EDT 05/26/2025 5:17 PM EDT us Generic External Data Provider LAB BLOOD ORDERAB LES Final Result Performing Organization Address City/[facility]/ZIP Co de Phone Number [facility] [address] [place] [address] [phone] * (ABNORMAL) Glucose, Whole Blood (05/26/2025 3:34 PM EDT) Glucose, Whole Blood 467(HH) 60 - 115 mg/dL [facility] Comment:METER #: [id number] 05/26/2025 3:34 PM EDT 05/26/2025 3:39 PM EDT Generic External Data Provider LAB BLOOD ORDERAB LES Final Result Performing Organization Address [facility]/[place] Co de Phone Number [facility] [address] [place] [phone] * (ABNORMAL) Urinalysis, Complete, with Reflex to Culture (05/26/2025 3:29 PM EDT) Color Urine Yellow [facility] Appearance Urine Clear [facility] PH 5.5 5.0 - 9.0 [facility] Glucose Urine UA >=1000(A) Negative mg/dL [facility] Urine Blood Negative Negative [facility] Specific Disney - Urine >=1.030(H) 1.005 - 1.025 [facility] Urine Protein Negative Neg-Trace mg/dL [facility] Urine Ketones Negative Negative mg/dL [facility] Nitrite Urine Negative Negative [facility] Leukocyte Esterase Urine Negative Negative [facility] RBC Urine 0-2 0 - 2 /HPF [facility] Urine WBC 0-5 0 - 5 /HPF [facility] Urine Squamous Epithelial Cell 3-5 0 - 2 /HPF [facility] Urine Bacteria 1+ None Seen [facility] Hyaline Casts, Urine 3-5 0 - 2 /LPF [facility] Urine Yeast Present [facility] 05/26/2025 3:29 PM EDT 05/26/2025 3:47 PM EDT Narrative [facility] - 05/26/2025 4:15 PM EDT [id number], Clean Catch us Generic External Data Provider LAB URINE ORDERAB LES Final Result Performing Organization Address City/State/[place] Co de Phone Number [facility] [address] [place] [address] [phone] documented in this encounter Visit Diagnoses Not on filedocumented in this encounter Additional Health Concerns Assessment Noted Time PHQ-9 Depression Total Score: 14 12/31/ 025 1:25 PM EDT documented as of this encounter Care Teams Cash Register Balancer Relationship Specialty Start Date End Date Tyesha Rogers MD [address] [place] [address] PCP - General Family Medicine 04/25/19 documented as of this encounter
--- OUTSIDE RECORDS SUMMARY | 2025-05-26 19:47 | XMS_ITS | Encounter Summary ---
Author Organization [facility] Address [address] [place] [address] Care Team Providers Care Advocacy Director Name Role Phone Imelda Camarillo DO Primary Care Pro vider Unavailable Casandra Duong MD Primary Care Provider Barrie Frederick, Pcp Primary Care Provider Pilar Gustafson MD Primary Care Provider Donna Brown MD Primary Care Provider Tyesha Cheatham Primary Care Provider Martinez hunter Encounter Details Date Type Department Care Team Description 01/24/2015 [facility] Medical Records [address] [place] [address] Laurie Jimenez MD Social History Tobacco Use [...] on filedocumented in this encounter Care Teams Advocacy Director Relationship Specialty Start Date End Date Imelda Camarillo DO PCP - General Internal Medicine 12/26/14 08/30/15 Casandra Duong MD PCP - General Internal Medicine 08/31/15 01/07/16 [facility], Pcp PCP - General Internal Medicine 01/08/16 09/14/16 Pilar Coombs MD PCP - General Internal Medicine 09/15/16 01/07/19 Donna Donis MD PCP - General Internal Medicine 01/08/19 12/01/21 Tyesha Rogers PCP - General Family Practice 12/02/21 documented as of this encounter
--- OUTSIDE RECORDS SUMMARY | 2025-05-26 19:47 | XMS_ITS | Encounter Summary ---
Author Organization [employer] Address [address] [facility] 7 [place] [address] Care Team Providers Care Terrapin Fisher Name Role Phone Tyesha Rogers MD Primary Care Provider [phone] Reason for Visit * Reason Onset Date Comments Durable Medical Equipment 09/06/2023 Encounter Details Date Type Department Care Team (Late st Contact Info) Description 09/06/2023 Telephone [facility] MEDICINE [address] [place], [place] [phone] Tyesha Rogers MD [address] [place] [address] Durable Medical Equipment Social History Tobacco Use [...] wheels or seat. Please contact Pt @ [phone] documented in this encounter Plan of Treatment Upcoming Encounters Date Type Department Care Team (Late st Contact Info) Description 06/02/2025 9:00 AM EDT Office Visit [facility] MEDICINE [address] [place] [address] Tyesha Rogers MD [address] [place] [address] 06/24/2025 9:00 AM EDT Office Visit [facility] OPTOMETRY [address] [place] [address] Katharine Carbone, ZAHIDA [address] [place] [address] documented as of this encounter Visit Diagnoses Not on filedocumented in this encounter Additional Health Concerns Assessment Noted Time PHQ-9 Depression Total Score: 21 023 9:42 AM EDT documented as of this encounter Care Teams Terrapin Fisher Relationship Specialty Start Date End Date Tyesha Rogers MD [address] [place] [address] PCP - General Family Medicine 04/25/19 documented as of this encounter
--- OUTSIDE RECORDS SUMMARY | 2025-05-26 19:47 | XMS_ITS | Encounter Summary ---
Author Organization [employer] Address [address] [facility] 7t [place] [address] Care Team Providers Care Toll Ticket Clerk Name Role Phone Tyesha Rogers MD Primary Care Provider [phone] Encounter Details Date Type Department Care Team (Late st Contact Info) Description 07/17/[address] [facility] MEDICINE [address] [place], [place] [phone] Kinjal Ch MD [address] [place], [place] [phone] Social History Tobacco Use Types Packs/Day Years [...] 06/02/2025 9:00 AM EDT Office Visit [facility] MEDICINE [address] [place] [address] Tyesha Rogers MD [address] [place] [address] 06/24/2025 9:00 AM EDT Office Visit [facility] OPTOMETRY [address] [place] [address] Raf, Katharine, OD [address] [place] [address] documented as of this encounter Visit Diagnoses Not on filedocumented in this encounter Additional Health Concerns Assessment Noted Time PHQ-9 Depression Total Score: 21 023 9:42 AM EDT documented as of this encounter Care Teams Toll Ticket Clerk Relationship Specialty Start Date End Date Tyesha Rogers MD [address] [place] [address] PCP - General Family Medicine 04/25/19 documented as of this encounter
--- OUTSIDE RECORDS SUMMARY | 2025-05-26 19:47 | XMS_ITS | Encounter Summary ---
Author Organization [facility] Address [address] [facility] [place] [address] Care Team Providers Care Consultant Teacher Name Role Phone Donna Donis MD Primary Care Provider Tyesha Cheatham Primary Care Provider Unavailcaro e Encounter Details Date Type Department Care Team Description 07/09/2019 Hospital Medical Records [address] [place] [address] Naman Castaneda MD [address] [place] [phone] Social History Tobacco Use Types Packs/Day Years [...] on filedocumented in this encounter Care Teams Consultant Teacher Relationship Specialty Start Date End Date Donna Donis MD PCP - General Internal Medicine 01/08/19 12/01/21 Tyesha Rogers PCP - General Family Practice 12/02/21 documented as of this encounter
--- OUTSIDE RECORDS SUMMARY | 2025-05-26 19:47 | XMS_ITS | Encounter Summary ---
Author Organization [employer] Address [address] [facility] 7t [place] [address] Care Team Providers Care Barge Captain Name Role Phone Tyesha Rogers MD Primary Care Provider [phone] Encounter Details Date Type Department Care Team ([facility] st Contact Info) Description 05/23/[address] [facility] MEDICINE [address] [place], [place] [phone] Tyesha Rogers MD [address] [place], [place] [phone] Social History Tobacco Use Types Packs/Day Years [...] is your housing situation today? I have dmoinga [place] 12/11/[address] you [...] [facility] MED[facility]INE [address] [place] [address] Tyesha Rogers MD [address] [place] [address] 06/24/2025 9:00 AM EDT Office Visit [facility] OPTOMETRY [address] [place] [address] Raf, Katharine, OD [address] [place] [address] documented as of this encounter Visit Diagnoses Not on filedocumented in this encounter Additional Health Concerns Assessment Noted Time PHQ-9 Depression Total Score: 14 025 1:25 PM EDT documented as of this encounter Care Teams Barge Captain Relationship Specialty Start Date End Date Tyesha Rogers MD [address] [place] [address] PCP - General Family Medicine 04/25/19 documented as of this encounter
--- OUTSIDE RECORDS SUMMARY | 2025-05-26 19:47 | XMS_ITS | Encounter Summary ---
Author Organization [employer] Address [address] [place] [address] 7 [place] [address] Care Team Providers Care Spool Cleaner Name Role Phone Tyesha Rogers MD Primary Care Provider [phone] Encounter Details Date Type Department Care Team (Late st Contact Info) Description 08/30/2022 Abstract [facility] MEDICINE [address] [place], [place] [phone] Tyesha Rogers MD [address] [place], [place] [phone] Social History Tobacco Use Types Packs/Day Years [...] Description 06/02/2025 9:00 AM EDT Office Visit [facility] MEDICINE [address] [place] [address] Tyesha Rogers MD [address] [place] [address] 06/24/2025 9:00 AM EDT Office Visit [facility] OPTOMETRY [address] [place] [address] Raf, Katharine, OD [address] [place] [address] documented as of this encounter Visit Diagnoses Not on filedocumented in this encounter Additional Health Concerns Assessment Noted Time PHQ-9 Depression Total Score: 9 08/18/20 22 11:40 AM EST documented as of this encounter Care Teams Spool Cleaner Relationship Specialty Start Date End Date Tyesha Rogers MD [address] [place] [address] PCP - General Family Medicine 04/25/19 documented as of this encounter
--- OUTSIDE RECORDS SUMMARY | 2025-05-26 19:47 | XMS_ITS | Encounter Summary ---
Author Organization [employer] Address [address] [facility] 7t [place] [address] Care Team Providers Care Healthcare Translator Name Role Phone Tyesha Rogers MD Primary Care Provider [phone] Reason for Visit * Reason Comments [facility] Supports Encounter Details Date Type Department Care Team ([facility] st Contact Info) Description 05/26/2025 Patient Outreach [facility] MEDICINE [address] [place] [address] Esmer Molina Recovery Supports Social History Tobacco Use Types Packs/Day Years [...] as of this encounter Progress Notes * Esmer Molina - 05/26/2025 3:26 PM EDT I met with Emily today. Setting: in person at [facility] Recovery Wellness Goals worked on: Social Stability Action taken/next steps: Attended alcohol and drug free activity Additional comments: Esmer Molina documented in this encounter Plan of Treatment Upcoming Encounters Date Type Department Care Team (Late st Contact Info) Description 06/02/2025 9:00 AM EDT Office Visit [facility] MEDICINE [address] [place] [address] Tyesha Rogers MD [address] [place] [address] 06/24/2025 9:00 AM EDT Office Visit [facility] OPTOMETRY [address] [place] [address] Raf, Katharine, OD [address] [place] [address] documented as of this encounter Visit Diagnoses Not on filedocumented in this encounter Additional Health Concerns Assessment Noted Time PHQ-9 Depression Total Score: 14 025 1:25 PM EDT documented as of this encounter Care Teams Healthcare Translator Relationship Specialty Start Date End Date Tyesha Rogers MD [address] [place] [address] PCP - General Family Medicine 04/25/19 documented as of this encounter
--- OUTSIDE RECORDS SUMMARY | 2025-05-26 19:48 | XMS_ITS | Encounter Summary ---
Author Organization [employer] Address [address] [facility] 7t [place] [address] Care Team Providers Care General Manager In Training Name Role Phone Tyesha Rogers MD Primary Care Provider [phone] Reason for Visit * Reason Comments Med Refill Encounter Details Date Type Department Care Team ([facility] st Contact Info) Description 01/22/2024 Refill [facility] [address] [place], [place] [phone] Tyesha Rogers MD [address] [place], [place] [phone] Other chronic pain Social History Tobacco Use [...] Description 06/02/2025 9:00 AM EDT Office Visit [facility] [address] [place] [address] Tyesha Rogers MD [address] [place] [address] 06/24/2025 9:00 AM EDT Office Visit [facility] [address] [place] [address] Raf, Katharine, OD [address] [place] [address] documented as of this encounter Visit Diagnoses Diagnosis Other chronic pain documented in this encounter Additional Health Concerns Assessment Noted Time PHQ-9 Depression Total Score: 21 024 10:41 AM EDT documented as of this encounter Care Teams General Manager In Training Relationship Specialty Start Date End Date Tyesha Rogers MD [address] [place] [address] PCP - General Family Medicine 04/25/19 documented as of this encounter
--- OUTSIDE RECORDS SUMMARY | 2025-05-26 19:48 | XMS_ITS | Encounter Summary ---
Author Organization [facility] Address [address] [place] [address] Care Team Providers Care Marketing Database Analyst Name Role Phone Imelda Camarillo DO Primary [...] Department Care Team Description 08/21/2015 Telephone Adult [address] [address] Imelda Camarillo DO Prior Authorization Social History [...] Thank you [place] [phone] prior authorization pool Zabrina Becerril C.M.A. [facility] Prior Authorizations Ext: [phone] * Telephone Encounter - Karolina Becerril M.A. - 08/21/2015 1:54 PM EST The insurance number is . [facility] closed for a staff meeting * Telephone Encounter - Brooklyn Camacho - 08/21/2015 10:09 AM EST Pre Authorization for Medication Name of Medication: lubiprostone (AMITIZA) 24 MCG capsule Dose of Medication: 24 MCG Capsule How does patient take this med? Take 1 Cap by mouth 2 times daily (with meals). Patient???s current medical insurance:: Pay[place] / Plan: MEDICAID PCC / Product Type: MEDICAID [id number] Notes/Comments from faxed P.A.: request=reason for denial: None listed [employer] phone number listed on fax: [phone] If phone number not listed on fax go to appointment screen; then click registration; choose insurance claim address; phone number to right on coverage address. What is patients CARDHOLDER ID#: [id number] Pharmacy Information: Pharmacy; address; phone and fax number that patient uses? [facility], [address] [place] [address] documented in this encounter Plan of Treatment Not on file documented as of this encounter Visit Diagnoses Not on filedocumented in this encounter Care Teams Marketing Database Analyst Relationship Specialty Start Date End Date Imelda Camarillo DO PCP - General Internal Medicine 12/26/14 08/30/15 Casandra Duong MD PCP - General Internal Medicine 08/31/15 01/07/16 [facility] PCP - General Internal Medicine 01/08/16 09/14/16 Pilar Coombs MD PCP - General Internal Medicine 09/15/16 01/07/19 Donna Donis MD PCP - General Internal Medicine 01/08/19 12/01/21 Tyesha Rogers PCP - General Family Practice 12/02/21 documented as of this encounter
--- OUTSIDE RECORDS SUMMARY | 2025-05-26 19:48 | XMS_ITS | Encounter Summary ---
Author Organization [employer] Address [address] [place] [address] [address] [place] [address] Care Team Providers Care Reed Or Wind Instrument Tuner Name Role Phone Tyesha Rogers MD Primary Care Provider [phone] Encounter Details Date Type Department Care Team (Late Contact Info) Description 08/11/2022 Orders Only [facility] [address] [place] [address] Loren Oliva MD [address] [place] [address] Social History Tobacco Use Types Packs/Day Years [...] Description 06/02/2025 9:00 AM EDT Office Visit [facility] [address] [place] [address] Tyesha Rogers MD [address] [place] [address] 06/24/2025 9:00 AM EDT Office Visit [facility] [address] [place] [address] Katharine Carbone OD [address] [place], [place] [phone] documented as of this encounter Visit Diagnoses Not on filedocumented in this encounter Care Teams Reed Or Wind Instrument Tuner Relationship Specialty Start Date End Date Tyesha Rogers MD [address] [place] [address] [place] [id number] PCP - General Family Medicine 04/25/19 documented as of this encounter
--- OUTSIDE RECORDS SUMMARY | 2025-05-26 19:48 | XMS_ITS | Encounter Summary ---
Author Organization [facility] Address [address] [place] [address] Care Team Providers Care Battery Parts Assembler Name Role Phone Casandra Duong MD Primary Care Provider Barrie Frederick, Pcp Primary Care Provider UnavailPilar Reed MD Primary Care Provider Unavail Donna Wadsworth MD Primary Care Provider Tyesha Cheatham Primary Care Provider Martinez hunter Encounter Details Date Type Department Care Team Description 11/10/2015 Hospital Medical Records [address] [place] [address] Varinder Hernandes PA-C [address] [place] [address] [address] [place] [address] Social History Tobacco Use Types Packs/Day Years [...] on filedocumented in this encounter Care Teams Battery Parts Assembler Relationship Specialty Start Date End Date Casandra [...]
--- OUTSIDE RECORDS SUMMARY | 2025-05-26 19:48 | XMS_ITS | Encounter Summary ---
Author Organization [employer] Address [address] [facility] 7t [place] [address] Care Team Providers Care Liberal Arts Teacher Name Role Phone Tyesha Rogers MD Primary Care Provider [phone] Encounter Details Date Type Department Care Team (Late st Contact Info) Description 10/29/2024 Orders Only [facility] [address] [place] [address] Provider, MD Jhony Social History Tobacco Use [...] Description 06/02/2025 9:00 AM EDT Office Visit [facility] [address] [place] [address] Tyesha Rogers MD [address] [place] [address] 06/24/2025 9:00 AM EDT Office Visit [facility] [address] [place] [address] Raf, Katharine, OD [address] [place] [address] documented as of this encounter Procedures Procedure [...] documented as of this encounter Care Teams Liberal Arts Teacher Relationship Specialty Start Date End Date Tyesha Rogers MD [address] [place] [id number] PCP - General Family Medicine 8/15/19 documented as of this encounter
--- OUTSIDE RECORDS SUMMARY | 2025-05-26 19:48 | XMS_ITS | Encounter Summary ---
Author Organization [facility] Address [address] [place] [address] Care Team Providers Care Decorative Engraver Apprentice Name Role Phone Casandra Duong MD Primary Care Provider Barrie Frederick, Pcp Primary Care Provider Pilar Gustafson MD Primary Care Provider Unavail able Donna Donis MD Primary Care Provider Tyesha Cheatham Primary Care Provider Martinez hunter Encounter Details Date Type Department Care Team Description 09/30/2015 Gear Technician Report Medical Records [address] [place] [address] Negin Isaac Social History Tobacco Use Types [...] on filedocumented in this encounter Care Teams Decorative Engraver Apprentice Relationship Specialty Start Date End Date Casandra [...]
--- OUTSIDE RECORDS SUMMARY | 2025-05-26 19:48 | XMS_ITS | Encounter Summary ---
Author Organization [facility] Address [address] [place] [address] Care Team Providers Care Ditch Inspector Name Role Phone Casandra Duong MD Primary Care Provider Barrie Frederick Pcp Primary Care Provider Pilar Gustafson MD Primary Care Provider Unavail able Donna Donis MD Primary Care Provider Tyesha Cheatham Primary Care Provider Martinez hunter Encounter Details Date Type Department Care Team Description 12/03/2015 ECOLOGICAL RISK ASSESSOR/[facility] Report Medical Records [address] [place] [address] Abstract, Provider Social History Tobacco Use Types [...] on filedocumented in this encounter Care Teams Ditch Inspector Relationship Specialty Start Date End Date Casandra [...]
--- OUTSIDE RECORDS SUMMARY | 2025-05-26 19:48 | XMS_ITS | Encounter Summary ---
Author Organization [employer] Address [address] [place] [address] [address] [place] [address] Care Team Providers Care Farm Machine Tender Name Role Phone Tyesha Rogers MD Primary Care Provider [phone] Encounter Details Date Type Department Care Team (Late st Contact Info) Description 10/10/2022 Orders Only [facility] [address] [place], [place] [phone] Tyesha Rogers MD [address] [place], [place] [phone] Hypothyroidism, unspecified type (Primary Dx); Elevated TSH; [...] 9:00 AM EDT Office Visit [facility] [address] [place] [address] Tyesha Rogers MD [address] [place], [place] [phone] 06/24/2025 9:00 AM EDT Office Visit [facility] [address] [place], [place] [phone] Raf, Katharine, OD [address] [place], [place] [phone] Scheduled Orders Name Type Priority Associated Diagnoses [...] documented as of this encounter Care Teams Farm Machine Tender Relationship Specialty Start Date End Date Tyesha Rogers MD [address] [place], [place] [phone] PCP - General Family Medicine 04/25/19 documented as of this encounter
--- OUTSIDE RECORDS SUMMARY | 2025-05-26 19:48 | XMS_ITS | Encounter Summary ---
Author Organization [facility] Address [address] [place] [address] Care Team Providers Care Farm Marketer Name Role Phone Casandra Duong MD Primary Care Provider Barrie Frederick Pcp Primary Care Provider Pilar Gustafson MD Primary Care Provider Unavail Donna Wadsworth MD Primary Care Provider Tyesha Cheatham Primary Care Provider Martinez hunter Encounter Details Date Type Department Care Team Description 12/03/2015 Human Service Coordinator Report Medical Records [address] [place] [address] Gladys Sung MD Social History Tobacco Use Types Packs/Day [...] on filedocumented in this encounter Care Teams Farm Marketer Relationship Specialty Start Date End Date Casandra [...]
--- OUTSIDE RECORDS SUMMARY | 2025-05-26 19:48 | XMS_ITS | Encounter Summary ---
Author Organization [facility] Address [address] [place] [address] Care Team Providers Care Clinical Practice Consultant Name Role Phone Casandra Duong MD Primary Care Provider Barrie Frederick Pcp Primary Care Provider Pilar Gustafson MD Primary Care Provider Unavail Donna Wadsworth MD Primary Care Provider Tyesha Cheatham Primary Care Provider Martinez hunter Encounter Details Date Type Department Care Team Description 10/28/2015 [facility] Medical Records [address] [place] [address] [facility] Social History Tobacco Use Types Packs/Day [...] on filedocumented in this encounter Care Teams Clinical Practice Consultant Relationship Specialty Start Date End Date Casandra [...]
--- OUTSIDE RECORDS SUMMARY | 2025-05-26 19:48 | XMS_ITS | Encounter Summary ---
Author Organization [employer] Address [address] [facility] 7[address] [place] [address] Care Team Providers Care Barrel Cooper Name Role Phone Tyesha Rogers MD Primary Care Provider [phone] Encounter Details Date Type Department Care Team (Late st Contact Info) Description 01/25/2024 Orders Only [facility] [address] [place], [place] [phone] Tyesha Rogers MD [address] [place], [place] [phone] Social History Tobacco Use Types Packs/Day Years [...] Description 06/02/2025 9:00 AM EDT Office Visit [facility] [address] [place] [address] Tyesha Rogers MD [address] [place] [address] 06/24/2025 9:00 AM EDT Office Visit [facility] OPTOMETRY [address], [place] [phone] Raf, Katharine, OD [address] [place] [address] documented as of this encounter Visit Diagnoses Not on filedocumented in this encounter Additional Health Concerns Assessment Noted Time PHQ-9 Depression Total Score: 21 024 10:41 AM EDT documented as of this encounter Care Teams Barrel Cooper Relationship Specialty Start Date End Date Tyesha Rogers MD [address] [place], [place] [phone] PCP - General Family Medicine 04/25/19 documented as of this encounter
--- OUTSIDE RECORDS SUMMARY | 2025-05-26 19:48 | XMS_ITS | Clinical Summary ---
Author Organization [employer] Address [address] [place] [address] 7 [place] [address] Care Team Providers Care Assembler Finger Buffs Name Role Phone Tyesha Houston MD Primary Care Provider [phone] Allergies Active Allergy Reactions Criticality Noted Date [...] Unable to Define Lisinopril-Hydrochlorothiazi de Cough 12/06/2016 [place] High 12/04/2018 Other reaction(s): stiffened up & [...] hyperglycemia, with long-term current use of insulin ([facility]) Administer 15 g orally as needed for [...] 025 Active Blood Glucose Monitoring Suppl (FreeStyle [place] Lite) w/Device kit Use to test blood [...] hyperglycemia, with long-term current use of insulin ([facility]) << Sliding Scale Comments >>100 - 149 8 units Call if less than 50064 - 199 10 units 200 - 249 [...] hyperglycemia, with long-term current use of insulin ([facility]) USE TO TEST BLOOD SUGAR FOUR TIMES DAILY. FASTING (BEFORE BREAKFAST), BEFORE LUNCH, BEFORE DINNER AND 2 HOURS AFTER YOUR LARGEST MEAL OF THE DAY. 100 strip 3 Active sertraline (Zoloft) 25 MG tabletIndication s:MDD (major depressive disorder), recurrent severe, without psychosis ([facility]) Take 1 tablet (25 mg) by mouth [...] hyperglycemia, with long-term current use of insulin ([facility]) Administer subcutaneously 30 units daily 6 mL [...] patient presented to [facility] Hypomagnesemia 06/04/2024 Right wrist pain [...] restlessness. Emily agrees to go up to [facility], and attempt to reschedule with therapist. Emily is open to a referral to [facility] for psychiatric medication. She also requests to return to [facility] Program. LUCIUS Hatch has scheduled that [...] sxs. She is engage in MH at [facility] with therapist Aminata Bolton. I will submit referral to [facility] for Psychiatrist services. Provided education around integrated [...] treatmetn engagement. PLAN: 1. Follow up with [facility]: Not recommended for follow-up 2. Patient goal is to become mentally stable and work on her sobriety 3. Behavioral Recommendations a. Remind engage in MH services with [facility] b. Referral to [facility] for Psychiatrist services c. [facility] contact information for support. 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. Last seen in December 2022 - CAD, remote non-STEMI on 10/29, reported moderate CAD - History of DVT and likely PEA at [facility], on apixaban and 12 contrast allergy with anaphylaxis. 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. Last seen in December 2022 - CAD, remote non-STEMI on 10/29, reported moderate CAD - History of DVT and likely PEA at [facility], on apixaban and 12 contrast allergy with anaphylaxis. 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. Last seen in December 2022 - CAD, remote non-STEMI on 10/29, reported moderate CAD - History of DVT and likely PEA at [facility], on apixaban and 12 contrast allergy with anaphylaxis. Assessment & Plan (12/22/2022 5:36 AM EDT): -Asset Card Clerk: Umesh Forrester, last seen in Sep 2021 -Hx mild CAD, last cardiac cath on 03/06/20 -continue ARB and statin -continue working on lifestyle modification -not on ASA since she started taking Eliquis for PE -previously on propranolol for ARCEO, but no longer taking it due to Hx hypotension -follow-up with maintenance instructor as scheduled Assessment & Plan (09/04/2022 12:05 PM EST): -Asset Card Clerk: [facility] Dr. Forrester, last seen in Sep 2021 -Hx mild CAD, last cardiac cath on 03/06/20 -continue ARB and statin -continue working on lifestyle modification -not on ASA since she started taking Eliquis for PE -previously on propranolol for ARCEO, but no longer taking it due to Hx hypotension -follow-up with maintenance instructor as scheduled Tobacco use 08/30/2022 Assessment & [...] & Plan (01/14/2025 11:13 AM EDT): Urologist: [facility], Dr. Duran, last seen in Aug 2021 S/p right ESWL on 01/29/20 S/p left cystoscopy, retrograde laser and stent on 02/28/20 S/p removal on 04/07/21 S/p cystoscopy and ureteroscopy on 08/23/21 Drink water > 2L / day Assessment & Plan (12/22/2022 5:58 AM EDT): [facility], last seen in Aug 2021 S/p [...] & Plan (08/19/2022 10:40 AM EST): [facility], last seen in Aug 2021 S/p [...] she is diagnosed with MDD. Occasionally with Villard II due to borderline tendency and conversion disorder Hx suicide attempt several times (one time overdosed insulin) [facility] provider: Dr. Abi Thomason is psychiatrist, previously Albina Duff was her therapist. Encouraged to reach out to her [facility] therapist and psychiatrist for her concerns and medication management She was able to contract her safety today Assessment & Plan (01/14/2025 11:14 AM EDT): Current Dx: Bipolar disorder, sometimes she is diagnosed with MDD. Occasionally with Villard II due to borderline tendency and conversion disorder Hx suicide attempt several times (one time overdosed insulin) [facility] provider: Dr. Abi Thomason is psychiatrist, previously Albina Duff was her therapist. Encouraged to reach out to her [facility] therapist and psychiatrist for her concerns and medication management She was able to contract her safety today Assessment & Plan (08/25/2023 7:11 PM EST): Current Dx: Bipolar disorder, sometimes she is diagnosed with MDD. Occasionally with Villard II due to borderline tendency and conversion disorder Hx suicide attempt several times (one time overdosed insulin) [facility] provider: Dr. Abi MCDONNELL is psychiatrist, previously Albina Duff was her therapist. Encouraged to reach out to her [facility] therapist and psychiatrist for her concerns and medication management She was able to contract her safety today Assessment & Plan (09/04/2022 12:10 PM EST): Current Dx: Bipolar disorder, sometimes she is diagnosed with MDD. Occasionally with Villard II due to borderline tendency and conversion disorder [facility] provider: Dr. Abi MCDONNELL is psychiatrist, Albina Duff has been her therapist. Encouraged to reach out to her [facility] therapist and psychiatrist for her concerns and medication management She was able to contract her safety today Assessment & Plan (08/19/2022 11:13 AM EST): Current Dx: Bipolar disorder, sometimes she is diagnosed with MDD. Occasionally with Villard II due to borderline tendency and conversion disorder [facility] provider: [facility], Dr. Alex is psychiatrist, Albina Duff has been her therapist. Encouraged to reach out to her [facility] therapist and psychiatrist for her concerns and medication management She was able to contract her safety today Cervical dysplasia 08/02/2022 Cocaine use disorder 08/02/2022 H/O: attempted suicide 08/02/2022 Substance use disorder 08/02/2022 Opioid use disorder 08/02/2022 Coronary artery disease 09/26/2018 Type 2 diabetes mellitus with hyperglycemia 09/11 Overview (01/13/2025): >>OVERVIEW FOR TYPE 2 DIABETES MELLITUS, WITH LONG-TERM CURRENT USE OF INSULIN ([facility]) WRITTEN ON 03/15/2023 10:18 AM BY SNEHA [...] Up coming eye appointment in February with [facility] Foot exam: 01/14/25 Neuropathy; callus; previously written a script for diabetic footwear. She did not go to berry picker machine operator the shoes. Referred to rip saw operator Assessment & Plan (01/19/2025 10:36 PM EDT): [...] Up coming eye appointment in February with [facility] Foot exam: 01/14/25 Neuropathy; callus; previously written a script for diabetic footwear. She did not go to berry picker machine operator the shoes. Referred to rip saw operator Assessment & Plan (01/13/2025 9:51 PM EDT): >>ASSESSMENT AND PLAN FOR TYPE 2 DIABETES MELLITUS, WITH LONG-TERM CURRENT USE OF INSULIN ([facility]) WRITTEN ON 08/25/2023 7:08 PM BY TYESHA [...] profile: 04/04/22 Diabetic eye exam: Referred to [facility] Eye care in the past; will check its status Foot exam: 08/08/23 Neuropathy; callus; previously written a script for diabetic footwear. She did not go to berry picker machine operator the shoes. Will refer to rip saw operator Assessment & Plan (01/13/2025 9:51 PM EDT): [...] profile: 04/04/22 Diabetic eye exam: Referred to [facility] Eye care in the past; will check its status Foot exam: 08/08/23 Neuropathy; callus; previously written a script for diabetic footwear. She did not go to berry picker machine operator the shoes. Will refer to rip saw operator >>ASSESSMENT AND PLAN FOR TYPE 2 DIABETES MELLITUS, WITH LONG-TERM CURRENT USE OF INSULIN ([facility]) WRITTEN ON 09/27/2023 6:06 AM BY TYESHA [...] profile: 04/04/22 Diabetic eye exam: Referred to [facility] Eye care in the past; will check its status Foot exam: 08/08/23 Neuropathy; callus; previously written a script for diabetic footwear. She did not go to berry picker machine operator the shoes. Will refer to rip saw operator Assessment & Plan (12/22/2022 5:56 AM EDT): [...] profile: 04/04/22 Diabetic eye exam: Referred to [facility] Eye care in the past; will check [...] profile: 04/04/22 Diabetic eye exam: Referred to [facility] Eye care in the past; will check [...] profile: 04/04/22 Diabetic eye exam: Referred to [facility] Eye care in the past; will check its status Foot exam: 08/18/22 Neuropathy; callus; written a script for diabetic footwear. Assessment & Plan (01/13/2025 9:51 PM EDT): >>ASSESSMENT AND PLAN FOR TYPE 2 DIABETES MELLITUS WITH HYPERGLYCEMIA ([facility]) WRITTEN ON 08/19/2022 10:52 AM BY TYESHA [...] profile: 04/04/22 Diabetic eye exam: Referred to [facility] Eye care in the past; will check its status Foot exam: 08/18/22 Neuropathy; callus; will write a script for diabetic footwear. >>ASSESSMENT AND PLAN FOR TYPE 2 DIABETES MELLITUS, WITH LONG-TERM CURRENT USE OF INSULIN ([facility]) WRITTEN ON 08/19/2022 10:52 AM BY TYESHA [...] profile: 04/04/22 Diabetic eye exam: Referred to [facility] Eye care in the past; will check [...] & Plan (02/12/2025 9:05 AM EDT): Neurologist: [facility], last seen in Jun 2023 Current medication: Octrevus, started in May 2022 Flare-up frequency > 2x / year Last flare-up in Jun 2020, hospitalized in [facility], dexamathasone was not given due to concern for PML Last imaging studies: MRI brain / cervical spine in Jun 2024 at [facility] Followed by urologist for neurogenic bladder, recurrent UTI and recurrent kidney stone Treatment Hx: -Tysabri (Natalizumab) q4wks, 03/2020-05/2022 (Interruption due to concern for PML 06/2020-11/2020) -Gabapentin, pregabalin for pain, but discontinued due to side effect and ineffectiveness Pt was recommended to check with neurology office for MRI appt Assessment & Plan (01/19/2025 10:32 PM EDT): Neurologist: [facility], last seen in Jun 2023 Current medication: Octrevus, started in May 2022 Flare-up frequency > 2x / year Last flare-up in Jun 2020, hospitalized in [facility], dexamathasone was not given due to concern for PML Last imaging studies: MRI brain / cervical spine in Jun 2024 at [facility] Followed by urologist for neurogenic bladder, recurrent UTI and recurrent kidney stone Treatment Hx: -Tysabri (Natalizumab) q4wks, 03/2020-05/2022 (Interruption due to concern for PML 06/2020-11/2020) -Gabapentin, pregabalin for pain, but discontinued due to side effect and ineffectiveness Pt was recommended to check with neurology office for MRI appt Assessment & Plan (09/27/2023 6:08 AM EST): Neurologist: [facility], last seen in Jun 2023 Current medication: Octrevus, started in May 2022 Flare-up frequency > 2x / year Last flare-up in Jun 2020, hospitalized in [facility], dexamathasone was not given due to concern for PML Last imaging studies: MRI brain / cervical spine in Apr 2022 at [facility] Followed by urologist for neurogenic bladder, recurrent UTI and recurrent kidney stone Treatment Hx: -Tysabri (Natalizumab) q4wks, 03/2020-05/2022 (Interruption due to concern for PML 06/2020-11/2020) -Gabapentin, pregabalin for pain, but discontinued due to side effect and ineffectiveness Pt was recommended to check with neurology office for MRI appt Assessment & Plan (08/25/2023 6:51 PM EST): Neurologist: [facility], last seen in Jun 2023 Current medication: Octrevus, started in May 2022 Flare-up frequency > 2x / year Last flare-up in Jun 2020, hospitalized in [facility], dexamathasone was not given due to concern for PML Last imaging studies: MRI brain / cervical spine in Apr 2022 at [facility] Followed by urologist for neurogenic bladder, recurrent UTI and recurrent kidney stone Treatment Hx: -Tysabri (Natalizumab) q4wks, 03/2020-05/2022 (Interruption due to concern for PML 06/2020-11/2020) -Gabapentin, pregabalin for pain, but discontinued due to side effect and ineffectiveness Pt was recommended to check with neurology office for MRI appt Assessment & Plan (12/22/2022 5:55 AM EDT): Neurologist: [facility], last seen on 12/20/22 Current medication: Octrevus, started in May 2022, 2nd dose scheduled on 12/31/22 Flare-up frequency > 2x / year Last flare-up in Jun 2020, hospitalized in [facility], dexamathasone was not given due to concern for PML Last imaging studies: MRI brain / cervical spine in Apr 2022 at [facility] Followed by urologist for neurogenic bladder, recurrent UTI and recurrent kidney stone Treatment Hx: Tysabri (Natalizumab) q4wks, 03/2020-05/2022 (Interruption due to concern for PML 06/2020-11/2020) Copaxone (weight gain), aubagio (wt gain and hair loss), Gabapentin, pregabalin for pain, but discontinued due to side effect and ineffectiveness Assessment & Plan (10/03/2022 5:51 AM EST): Neurologist: [facility], last seen on 05/12/22 Current medication: Octrevus, started in May 2022 Flare-up frequency > 2x / year Last flare-up in Jun 2020, hospitalized in [facility], dexamathasone was not given due to concern for PML Last imaging studies: MRI brain / cervical spine in Apr 2022 at [facility] Followed by urologist for neurogenic bladder, recurrent UTI and recurrent kidney stone Treatment Hx: Tysabri (Natalizumab) q4wks, 03/2020-05/2022 (Interruption due to concern for PML 06/2020-11/2020) Gabapentin, pregabalin for pain, but discontinued due to side effect and ineffectiveness Assessment & Plan (08/19/2022 11:02 AM EST): Neurologist: [facility], last seen on 04/08/22 Current medication: Octrevus, started in May 2022 Flare-up frequency > 2x / year Last flare-up in Jun 2020, hospitalized in [facility], dexamathasone was not given due to concern for PML Last imaging studies: MRI brain / cervical spine in Apr 2022 at [facility] Followed by urologist for neurogenic bladder, recurrent UTI and recurrent kidney stone Treatment Hx: Tysabri (Natalizumab) q4wks, 03/2020-05/2022 (Interruption due to concern for PML 06/2020-11/2020) Gabapentin, pregabalin for pain, but discontinued due to side effect and ineffectiveness Posttraumatic stress disorder 03/28/2017 Assessment & Plan (01/14/2025 11:16 AM EDT): -will check the status of [facility] Assessment & Plan (09/04/2022 12:10 PM EST): -will check the status of S Resolved Problems Problem Noted Date Diagnosed Date Resolved Date Dysmenorrhea 01/29/2025 02/27/2025 Acute hyperglycemia 06/26/2024 01/20/20 Assessment & Plan (06/26/2024 12:15 PM EDT): EMS called, patient presented to [facility] to the [facility] [place] [facility] Daytime somnolence 12/19/2018 2 Encounters * This document contains information received from the source organization and may not represent a complete record from that organization. Date Type Department Care Team Description 05/26/2025 Orders Only GENERIC EXTERNAL DATA DEPARTMENT Provider, Generic External Data 05/26/2025 Patient Outreach [facility] [place] [address] Esmer Molina RC Recovery Supports 05/26/2025 Telephone [facility] [place] [address] Chung Gu, LUCIUS Nurse Triage 05/23/2025 1:20 PM EDT Office Visit [facility] [address] [place] [address] Marcy Hatch FNP Primary hypertension (Primary Dx); Type 2 diabetes mellitus with hyperglycemia, with long-term current use of insulin ([facility]); Soft tissue infection; Recurrent chest pain; Sprain of right ankle, unspecified ligament, initial encounter 05/23/2025 Orders Only [facility] [place] [address] Marcy Hatch FNP 05/23/2025 Telephone [facility] [place] [address] Tyesha Houston MD 05/23/2025 Telephone [facility] [place] [address] Tyesha Houston MD Telephone Call 05/23/2025 Travel 05/15/2025 Refill [facility] [address] [place] [address] Marcy Hatch FNP Moderate persistent asthma without complication 05/14/2025 Patient Outreach [facility] [place] [address] Tyesha Houston MD 05/08/2025 Patient Outreach [address] [address] Tyesha Houston MD Care Management (C3- F/U call # 3) 05/07/2025 Patient Outreach [facility] [address] [place] [address] Tyesha Houston MD Transition Of Care (Tcm) (HDF scheduled. ) 05/07/[address] [address] Tyesha Houston MD Hospital Follow-up 05/01/[address] [address] Tyesha Houston MD Call Back Request 04/29/2025 Patient Outreach [address] [address] Tyesha Houston MD 04/28/2025 Patient Outreach [address] [address] Tyesha Houston MD Care Management (C3CM- F/U call # 2) 04/23/2025 Orders Only [address] [address] Tyesha Houston MD 04/23/2025 Orders Only GENERIC EXTERNAL DATA DEPARTMENT Provider, Generic External Data 04/22/2025 Orders Only GENERIC EXTERNAL DATA DEPARTMENT Provider, Generic External Data 04/21/2025 Orders Only [facility] External Provider, [facility] 04/18/2025 Patient Outreach [address] [address] Pierre Navarrete RC Recovery Supports 04/17/2025 Patient Outreach [address] [address] Jovan Berumen Recovery Supports 04/15/[address] [address] Neha Mondragon, ASSISTANT CENTER MANAGER Follow-up 04/14/[address] [address] Tyesha Houston MD ER Follow-up; Nurse Triage 04/14/2025 Refill [facility] [place] [address] Tyesha Houston MD Type 2 diabetes mellitus with hyperglycemia ([facility]); Type 2 diabetes mellitus with hyperglycemia, with long-term current use of insulin ([facility]) 04/14/2025 Telephone [facility] [address] Tyesha Houston MD 04/10/2025 [address] [place] [address] Tyesha Houston MD Nurse Triage 04/01/2025 Patient Outreach [address] [place] [address] Andrew Garcia Recovery Supports 03/31/2025 Patient Outreach [facility] [place] [address] Esmer Molina RC Recovery Supports 03/31/2025 Patient Outreach [facility] [address] [facility] [place] [address] Jovan Berumen RC Recovery Supports 03/26/2025 Telephone [facility] [place] [address] Tyesha Houston MD 03/25/2025 Patient Outreach [address] [place] [address] Andrew Garcia RC Recovery Supports 03/20/2025 Patient Outreach [facility] [place] [address] Esmer Molina RC Recovery Supports 03/19/2025 Patient Outreach [address] [address] Tyesha Houston MD Care Management (C3- Follow up # 2/LVM) 03/18/2025 [address] [place] [address] Penelope Deal, RESERVOIR ENGINEERING MANAGER CHART PREP 03/17/[address] [address] Tyesha Houston MD Reschedule (Called pt to reschedule pap appointment 03/19/2025 @10:45. Due to receiving a call that pt requested to have apt changed ! PT didn't answer message was left ! ) 03/13/2025 2:40 PM EDT [facility] [address] [address] Kinjal Ch MD Acute chest pain (Primary Dx); High risk of cardiac event 03/13/2025 [facility] [address] [address] Tyesha Houston MD Error (VOID this visit) 03/13/2025 Travel 03/11/[address] [address] Tyesha Houston MD Appointment Request 03/11/2025 Patient Outreach [address] [address] Tyesha Houston MD Care Coordination 03/06/[address] [address] Tyesha Houston MD 03/04/2025 Patient Outreach [address] [address] Tyesha Houston MD Care Management (C3CM- Follow up call # 2/LVM) 03/01/2025 [facility] [address] [address] Tyesha Houston MD Order for mammo 02/28/2025 Results Follow-Up [address] [address] Penelope Deal FNP Bacterial Vaginosis Panel, Chlamydia/N. Gonorrhoeae RNA, TMA, Urogenitial 02/28/2025 Patient Outreach [address] [address] Tyesha Houston MD 02/26/2025 10:00 AM EDT Office Visit [address] [address] Wojciech Hodges MD Substance use disorder (Primary Dx) 02/26/2025 9:00 AM EDT Office Visit [address] [address] Penelope Deal FNP Vaginal discharge (Primary Dx); PID (acute pelvic inflammatory disease); Screening examination for venereal disease 02/26/2025 Patient Outreach [address] [address] Tyesha Houston MD 02/26/2025 Travel 02/25/[address] [address] Penelope Deal FNP Chart Prep 02/24/[address] [id number] Tyesha Houston MD Nurse Triage from Last 3 Months Immunizations Immunization Administration [...] 9:00 AM EDT Office Visit [facility] MEDICINE [address] [place] [address] Tyesha Houston MD [address] [place] [address] 06/24/2025 9:00 AM EDT Office Visit [facility] OPTOMETRY [address] [place] [address] Raf, Katharine, OD [address] [place] [address] Health Maintenance Due Date Last Done Comments CT Colonography 1972 Colonoscopy 1972 Colorectal Cancer Screening 1972 FIT DNA/Cologuard 1972 FIT 1972 FOBT 1972 Sigmoidoscopy 1972 Eye Exam 1982 Family Planning (PISQ) 12/22/1987 Pap Smear 1993 Mammogram 07/24/2022 07/24/2020, 07/12, 07/24/2020, Additional history exists Zoster Vaccines (1 of 2) 2022 Diabetes: Hemoglobin A1C 04/16/2025 025, 08/20/2024, 08/08/2023, Additional history exists COVID-19 Vaccine ( season) 2025 10/28/2022, 03/04/2022, 03/04/2022, Additional history [...] exists SDOH Screening 01/14/2026 01/14/2025 Tobacco Screening 05/26/2026 05/26/2025 DTaP/Tdap/Td Vaccines (4 - Td or Tdap) [...] TO CULTURE Routine 05/26/2025 3:29 PM EDT XR KUB AND UPRIGHT 2 VIEWS Routine 05/26/2025 2:37 PM EDT GRAM STAIN RESULT (NON ORDERABLE) Routine 05/23/2025 3:44 PM EDT POCT GLUCOSE Routine 05/23/2025 2:18 PM EDT Type 2 diabetes mellitus with hyperglycemia, with long-term current use of insulin ([facility]) GLUCOSE, WHOLE BLOOD Routine 04/23/2025 11:53 AM [...] hyperglycemia, with long-term current use of insulin ([facility]) Dyslipidemia LIPID PANEL WITH REFLEX TO DIRECT LDL Routine 01/14/2025 11:56 AM EDT Type 2 diabetes mellitus with hyperglycemia, with long-term current use of insulin ([facility]) Dyslipidemia POCT GLYCOSYLATED HEMOGLOBIN (HGB A1C) Routine 01/14/2025 10:57 AM EDT Type 2 diabetes mellitus with hyperglycemia, with long-term current use of insulin ([facility]) ZZZ HISTORICAL HPV E6/E7 RFLX VENU 16 18/45 Routine 08/25/2020 11:45 AM EST MAMMOGRAM GENERIC Routine 07/24/2020 10: 40 AM EST from Last 3 Months or Most Recently Relevant to Health Maintenance Results * (ABNORMAL) Glucose, Whole Blood (05/26/2025 5:15 PM EDT) Only the most recent of14 resultswithin the time period is included. Glucose, Whole Blood 356(HH) 60 - 115 mg/dL [facility] Comment:METER #: [id number] 05/26/2025 5:15 PM EDT 05/26/2025 5:17 PM EDT us Generic External Data Provider LAB BLOOD ORDERAB LES Final Result [facility] [address] [place] [address] [phone] * (ABNORMAL) Urinalysis, Complete, with Reflex to Culture (05/26/2025 3:29 PM EDT) Color Urine Yellow [facility] Appearance Urine Clear [facility] PH 5.5 5.0 - 9.0 [facility] Glucose Urine UA >=1000(A) Negative mg/dL [facility] Urine Blood Negative Negative [facility] Specific [place] - Urine >=1.030(H) 1.005 - 1.025 [facility] Urine Protein Negative Neg-Trace mg/dL [facility] Urine Ketones Negative Negative mg/dL [facility] Nitrite Urine Negative Negative [facility] Leukocyte Esterase Urine Negative Negative [facility] RBC Urine 0-2 0 - 2 /HPF [facility] Urine WBC 0-5 0 - 5 /HPF [facility] Urine Squamous Epithelial Cell 3-5 0 - 2 /HPF [facility] Urine Bacteria 1+ None Seen [facility] Hyaline Casts, Urine 3-5 0 - 2 /LPF [facility] Urine Yeast Present [facility] 05/26/2025 3:29 PM EDT 05/26/2025 3:47 PM EDT Narrative [facility] - 05/26/2025 4:15 PM EDT [id number], Clean Catch us Generic External Data Provider LAB URINE ORDERAB LES Final Result [facility] [address] [place] [phone] * XR KUB and Upright 2 Views (05/26/2025 2:37 PM EDT) Anatomical Region Laterality Modality Radiographic Stephanie ging 05/26/2025 2:37 PM EDT Narrative 05/26/2025 2:50 PM EDT [address] [address] XRay Report Signed Patient: Emily Tucker MR#: [id number] 3606 : 1970 Acct:[id number] Age/Sex: 54 / F ADM Date: 05/26/25 Loc: .ED Attending Dr: Ordering Physician: Sabi Terrell NP Date of Service: 05/26/25 Procedure(s): XR KUB Accession Number(s): [id number] cc: Tyesha Houston MD; Sabi Terrell NP Reason for Exam: [...] 05/26/25 1447 DD/ 1437 TD/TT: 05/26/25 1443 Youth Minister: Procedure Note Donotuseinterpreter, Image - 05/26/[address] [address] XRay Report Signed Patient: Emily TuckerMR#: [id number] 3606 : 1970Acct:[id number] Age/Sex: 54 / FADM Date: 05/26/25 Loc: HO.ED Attending Dr: Ordering Physician: Sabi Terrell NP Date of Service: 05/26/25 Procedure(s): XR KUB Accession Number(s): [id number] cc: Tyesha Houston MD; Sabi Terrell NP Reason for Exam: [...] 05/26/25 1447 DD/ 1437 TD/TT: 05/26/25 1443 Youth Minister: [facility] External Provider IMG XR PROCEDURES Final Result * Gram Stain Result (05/23/2025 3:44 PM EDT) 05/23/2025 3:44 PM EDT 05/23/2025 6:25 PM EDT Comment:Abdomen Narrative [facility] - 05/26/2025 7:26 AM EDT Gram stain results: No polys 1+ epithelial cells 2+ Gram-positive cocci Staphylococcus aureus Quant Org ID 4+ Staphylococcus aureus: Clindamycin <=0.25(R) Staphylococcus aureus: Erythromycin >=8(R) Staphylococcus aureus: Levofloxacin 0.25(S) Staphylococcus aureus: Oxacillin 0.5(S) Staphylococcus aureus: Penicillin-G >=0.5(R) Staphylococcus aureus: Tetracycline <=1(S) Staphylococcus aureus: Trimethoprim/Sulfamethoxazole <=10(S) Specimen Source: Abdomen Result [facility] RESERVOIR ENGINEERING MANAGER HISTORICAL/NON ORDERABLE LABS Final Result Performing Organization Address City/[facility]/ZIP Co de Phone Number [facility] [address] [place] [address] [phone] * (ABNORMAL) POCT glucose manually resulted (05/23/2025 2:18 PM EDT) Pathologist [facility] Glucose Blood, POC 385(A) 60 - 200 mg/dL Blood Capillary blood specimen / Unknown 05/23/2025 2:18 PM EDT Result [facility] POINT OF CARE TEST ENTER/EDIT ORDERABLES Final Result * SARS-CoV-2 RNA, Influenza A/B, and RSV RNA, Ql NAAT (04/22/2025 8:43 AM EDT) [facility] Influenza A PCR NEGATIVE Negative [facility] Influenza B PCR NEGATIVE Negative [facility] Resp Syncy Virus RNA Qual PCR NEGATIVE Negative [facility] SARS COV2 PCR NEGATIVE Negative [facility] Comment:All test results mus t [...] use by authorized laboratories.Testing performed on the FTL SOLAR GeneXpert utilizingreal-time RT-PCR.All SARS CoV2 and positive influenza A/B results arereported to [facility]. 04/22/2025 8:43 AM EDT 04/22/2025 8:45 AM EDT Generic External Data Provider LAB MICROBIOLOGY - GENERAL ORDERABLES Final Result [facility] [address] [place] [address] [phone] * (ABNORMAL) CBC auto differential (04/21/2025 8:59 PM EDT) White Blood Count 6.9 4.8 - 10.8 X10*3/uL [facility] Red Blood Count 4.88 4.20 - 5.50 X10*6/uL [facility] Hemoglobin 14.2 12.0 - 16.0 g/dl [facility] Hematocrit 41.7 37.0 - 47.0 % [facility] Mean Corpuscular Volume 85.5 80.0 - 98.0 fL [facility] Mean Corpuscular Hemoglobin 29.1 27.0 - 33.0 pg [facility] Mean Corpuscular HGB Conc 34.1 31.0 - 35.0 g/dl [facility] Red Cell Distribution Width 12.4 11.0 - 16.0 % [facility] Platelet Count 225 160 - 400 X10*3/uL [facility] Mean Platelet Volume 10.0 9.4 - 12.3 fL [facility] Neutrophils Percent Auto 55.9 45 - 73 % [facility] Imm Gran Pct Auto 0.4 0.0 - 0.4 % [facility] Lymphocytes Percent Auto 31.2 20 - 40 % [facility] Monocytes Percent Auto 6.6 2 - 11 % [facility] Eosinophils Percent Auto 4.9(H) 0 - 4 % [facility] Basophils Percent Auto 1.0 0 - 2 % [facility] NRBC Pct Auto 0.0 0.0 - 0.2 /100WBC [facility] Neutrophils Absolute Auto 3.9 2.0 - 8.3 x10*3/uL [facility] Imm Gran Abs Auto 0.03 0.00 - 0.03 X10*3/uL [facility] Lymphocytes Absolute Auto 2.2 1.2 - 4.9 X10*3/uL [facility] Monocytes Absolute Auto 0.5 0.1 - 1.2 X10*3/uL [facility] Eosinophils Absolute Auto 0.3 0.0 - 0.4 X10*3/uL [facility] Basophils Absolute Auto 0.1 0.0 - 0.2 X10*3/uL [facility] NRBC Abs Auto 0.000 0.0 - 0.012 X10*3/uL [facility] 04/21/2025 8:59 PM EDT 04/21/2025 9:09 PM EDT Generic External Data Provider LAB BLOOD ORDERAB LES Final Result Performing Organization Address City/[facility]/ZIP Co de Phone Number [facility] [address] [place] [phone] * C-reactive Protein (04/21/2025 8:59 PM EDT) C Reactive Protein 0.21 < or = 0.50 mg/dL [facility] 04/21/2025 8:59 PM EDT 04/21/2025 9:09 PM EDT Generic External Data Provider LAB BLOOD ORDERAB LES Final Result Performing Organization Address [facility]/ZIP Co de Phone Number [facility] [address] [place] [phone] * (ABNORMAL) Comprehensive Metabolic Panel (04/21/2025 8:59 PM EDT) Sodium 136 135 - 145 mmol/L [facility] Potassium 3.9 3.3 - 5.1 mmol/L [facility] Chloride 105 96 - 108 mmol/L [facility] Carbon Dioxide 23 22 - 29 mmol/L [facility] Anion Gap 12 12 - 20 [facility] Urea Nitrogen (BUN) 13 9 - 16 mg/dL [facility] Creatinine, Serum 0.71 0.5 - 1.4 mg/dL [facility] Creatinine Clr Calc Pharmacy 86.7 [facility] Comment:Provided height and weight: 157.48 cm,73 kg.eGFR (calculated from the MDRD study equation) and eCrCl(calculated from the Cockcroft-Gault equation) are based ondifferent parameters and may not yield comparable results.If eCrCl result is absurd, please check patient'sheight/weight. Estimated Glomerular Filt Rate >60 [facility] Comment:Chronic Kidney Disea se: Estimated GFR < 60 mL/min/1.52a7Pnzjax Kidney Disease: Estimated GFR < 15 mL/min/1.73m2 Glucose 418(HH) 60 - 115 mg/dL [facility] Comment:Critical value for t est(s):GLU Results called to and readback by: LINA Person calling: HOLLIS Date: 04/21/25Time:2135 Calcium 8.8 8.4 - 10.2 mg/dL [facility] Bilirubin, Total 0.1 0.0 - 1.0 mg/dL [facility] Aspartate Amino Transferase 17 5 - 31 U/L [facility] Alanine Aminotransferase 20 0 - 31 U/L [facility] Total Protein 6.7 6.5 - 8.0 g/dL [facility] Albumin Level 3.9 3.5 - 5.0 g/dL [facility] Alkaline Phosphatase 103 39 - 117 U/L [facility] 04/21/2025 8:59 PM EDT 04/21/2025 9:09 PM EDT us Generic External Data Provider LAB BLOOD ORDERAB LES Final Result [facility] [address] [place] [phone] * XR Ribs 3 Views Left w/ Chest (04/21/2025 7:31 PM EDT) Anatomical Region Laterality Modality Radiographic Stephanie ging 04/21/2025 7:31 PM EDT Narrative 04/21/2025 7:32 PM EDT [address] [address] XRay Report Signed Patient: Emily Tucker MR#: [id number] 3606 : 1970 Acct:[id number] Age/Sex: 54 / F ADM Date: 04/21/25 Loc: HO.ED Attending Dr: Ordering Physician: Carmelo Coronado MD Date of Service: 04/21/25 Procedure(s): XR ribs LT min 3V w CXR1V Accession Number(s): [id number] cc: [facility]; Carmelo Coronado MD CLINICAL HISTORY: fall,pain 4 [...] in OV> 04/21/251930 DD/ 30 TD/TT: 04/21/251930 Youth Minister: Procedure Note Donotuseinterpreter, Image - 04/21/[address] [address] XRay Report Signed Patient: Emily TuckerMR#: [id number] 3606 : 1970Acct:[id number] Age/Sex: 54 / FADM Date: 04/21/25 Loc: .ED Attending Dr: Ordering Physician: Carmelo Coronado MD Date of Service: 04/21/25 Procedure(s): XR ribs LT min 3V w CXR1V Accession Number(s): [id number] cc: [facility]; Carmelo Coronado MD CLINICAL HISTORY: fall,pain 4 [...] in OV> 04/21/251930 DD/ 30 TD/TT: 04/21/251930 Youth Minister: [facility] External Provider IMG XR PROCEDURES Final Result * XR Ankle 3+ Views Right (04/21/2025 6:54 PM EDT) Anatomical Region Laterality Modality Lower Extremities, Ankle Right Radiogr aphic Imaging 04/21/2025 6:54 PM EDT Narrative 04/21/2025 6:56 PM EDT [address] [address] XRay Report Signed Patient: Emily Tucker MR#: [id number] 3606 : 1970 Acct:[id number] Age/Sex: 54 / F ADM Date: 04/21/25 Loc: HO.ED Attending Dr: Ordering Physician: Rosina Amin Date of Service: 04/21/25 Procedure(s): XR ankle RT min 3V Accession Number(s): [id number] cc: Rosina Amin; [facility] CLINICAL HISTORY: pain, injury 3 view right [...] in OV> 04/21/251854 DD/ 53 TD/TT: 04/21/251853 Youth Minister: Procedure Note Donotuseinterpreter, Image - 04/21/[address] [address] XRay Report Signed Patient: Emily TuckerMR#: [id number] 3606 : 1970Acct:[id number] Age/Sex: 54 / FADM Date: 04/21/25 Loc: HO.ED Attending Dr: Ordering Physician: Rosina Amin Date of Service: 04/21/25 Procedure(s): XR ankle RT min 3V Accession Number(s): [id number] cc: Rosina Amin; [facility] CLINICAL HISTORY: pain, injury 3 view right [...] in OV> 04/21/251854 DD/ 53 TD/TT: 04/21/251853 Youth Minister: [facility] External Provider IMG XR PROCEDURES Final Result * XR Hip 2 or 3 Views Left (04/21/2025 6:54 PM EDT) Anatomical Region Laterality Modality Lower Extremities, Hip Left Radiograp hic Imaging 04/21/2025 6:54 PM EDT Narrative 04/21/2025 6:56 PM EDT [address] [address] XRay Report Signed Patient: Emily Tucker MR#: [id number] 3606 : 1970 Acct:[id number] Age/Sex: 54 / F ADM Date: 04/21/25 Loc: HO.ED Attending Dr: Ordering Physician: Rosina Amin Date of Service: 04/21/25 Procedure(s): XR hip LT min 2V Accession Number(s): [id number] cc: Rosina Amin; [facility] CLINICAL HISTORY: pain, injury 3 view, pelvis [...] in OV> 04/21/251854 DD/ 53 TD/TT: 04/21/251853 Youth Minister: Procedure Note Donotuseinterpreter, Image - 04/21/[address] [address] XRay Report Signed Patient: Emily TuckerMR#: [id number] 3606 : 1970Acct:[id number] Age/Sex: 54 / FADM Date: 04/21/25 Loc: HO.ED Attending Dr: Ordering Physician: Rosina Amin Date of Service: 04/21/25 Procedure(s): XR hip LT min 2V Accession Number(s): [id number] cc: Rosina Amin; [facility] CLINICAL HISTORY: pain, injury 3 view, pelvis [...] in OV> 04/21/251854 DD/ 53 TD/TT: 04/21/251853 Youth Minister: [facility] External Provider IMG XR PROCEDURES Final Result * CT Cervical Spine w/o Contrast (04/21/2025 6:42 PM EDT) Anatomical Region Laterality Modality Spine, C-spine Computed Tomogra phy 04/21/2025 6:42 PM EDT Narrative 04/21/2025 6:43 PM EDT [address] [address] [address] Scan Report Signed Patient: Emily Tucker MR#: [id number] 3606 : 1970 Acct:[id number] Age/Sex: 54 / F ADM Date: 04/21/25 Loc: HO.ED Attending Dr: Ordering Physician: Rosina Amin Date of Service: 04/21/25 Procedure(s): CT cervical spine wo IV con Accession Number(s): [id number] cc: Rosina Amin; [facility] Report Number: [id number]: Total DLP = 529.88 mGy-cm CLINICAL HISTORY: [...] C6-C7. Diffuse spinal canal narrowing, for example dbbj-ee-mnfoqqme at C4-C5 with severe left and moderate [...] in OV> 04/21/251841 DD/ 41 TD/TT: 04/21/251841 Youth Minister: Procedure Note Donotuseinterpreter, Image - 04/21/[address] [address] [address] Scan Report Signed Patient: Emily TuckerMR#: [id number] 3606 : 1970Acct:[id number] Age/Sex: 54 / FADM Date: 04/21/25 Loc: HO.ED Attending Dr: Ordering Physician: Rosina Amin Date of Service: 04/21/25 Procedure(s): CT cervical spine wo IV con Accession Number(s): [id number] cc: Rosina Amin; [facility] Report Number: [id number]: Total DLP = 529.88 mGy-cm CLINICAL HISTORY: [...] C6-C7. Diffuse spinal canal narrowing, for example [id number]-gkeglkdx at C4-C5 with severe left and moderate [...] in OV> 04/21/251841 DD/ 41 TD/TT: 04/21/251841 Youth Minister: [facility] External Provider IMG CT PROCEDURES Final Result * CT Head w/o Contrast (04/21/2025 6:38 PM EDT) Anatomical Region Laterality Modality Head, Neck Computed Tomogra phy 04/21/2025 6:38 PM EDT Narrative 04/21/2025 6:40 PM EDT [place] [address] CT Scan Report Signed Patient: Emily Tucker MR#: [id number] 3606 : 1970 Acct:[id number] Age/Sex: 54 / F ADM Date: 04/21/25 Loc: HO.ED Attending Dr: Ordering Physician: Rosina Amin Date of Service: 04/21/25 Procedure(s): CT head/brain wo IV con Accession Number(s): [id number] cc: Rosina Amin; [facility] Report Number: [id number]: Total DLP = 676.58 mGy-cm CLINICAL HISTORY: [...] in OV> 04/21/251838 DD/ 37 TD/TT: 04/21/251837 Youth Minister: Procedure Note Donotuseinterpreter, Image - 04/21/[address] [place] [address] [address] Scan Report Signed Patient: Emily TuckerMR#: [id number] 3606 : 1970Acct:[id number] Age/Sex: 54 / FADM Date: 04/21/25 Loc: HO.ED Attending Dr: Ordering Physician: Rosina Amin Date of Service: 04/21/25 Procedure(s): CT head/brain wo IV con Accession Number(s): [id number] cc: Rosina Amin; [facility] Report Number: [id number]: Total DLP = 676.58 mGy-cm CLINICAL HISTORY: [...] in OV> 04/21/251838 DD/ 37 TD/TT: 04/21/251837 Youth Minister: [facility] External Provider IMG CT PROCEDURES Final Result * POCT [place]/ARELY (02/26/2025 11:10 AM EDT) [facility] Prep Positive Comment:pH 6, numerous WBC, negative clue, negative yeast, negative trich Vaginal Fluid Vaginal structure / Unknown 02/26/2025 11:10 AM EDT Penelope Caryo RESERVOIR ENGINEERING MANAGER POINT OF CARE TEST ENTER/EDIT ORDERABLES Final Result * (ABNORMAL) Bacterial Vaginosis Panel (02/26/2025 12:00 AM EDT) TRICHOMONAS VAGINALIS DETECTION BY PCR DETECTED(A) Not Detect [facility] BACTERIAL VAGINOSIS DETECTION BY PCR NEGATIVE Negative [facility] Comment:The BV organism targ ets [...] DETECTION BY PCR NOT DETECTED Not Detect [facility] Anita glab krusei PCR NOT DETECTED Not Detect [facility] Swab Vaginal structure / Unknown 02/26/2025 02/26/2025 Penelope Deal [facility] MICROBIOLOGY - GENERAL ORD ERABLES Final Result [facility] [address] [place] [address] [phone] * Chlamydia/N. Gonorrhoeae RNA, TMA, Urogenitial (02/26/2025 12:00 AM EDT) CT PCR NOT DETECTED Not Detect. [facility] Comment:A not detected test result [...] psychologicalconsequences. NG PCR NOT DETECTED Not Detect. [facility] Comment:A not detected test result [...] psychologicalconsequences. Urine (Urine, Random) 02/26/2025 02/26/2025 Narrative [facility] - 02/26/2025 9:22 PM EDT Vaginal us Penelope [facility] MICROBIOLOGY - GENERAL ORD ERABLES Final Result Performing Organization Address [facility]/ZIP Co de Phone Number [facility] [address] [place] [phone] * (ABNORMAL) Lipid Panel with Reflex to Direct LDL (01/14/2025 11:56 AM EDT) Triglycerides 133 <150 mg/dL [facility] Comment:Desirable Triglyceri de: less than 150 mg/dLBorderline High Triglyceride 150-199 mg/dLHigh Triglyceride: 200-499 mg/dLVery High Triglyceride: greater than or equal to 5OO mg/dL Cholesterol 226(H) <200 mg/dL [facility] Comment:Desirable Cholestero l: less than 200 mg/dLBorderline High Cholesterol: 200-239 mg/dLHigh Cholesterol: greater than 239 mg/dL LDL Cholesterol Calculated 116(H) <100 mg/dL [facility] Comment:Desirable LDL: less than 100 mg/dLNear Optimal/Above Optimal LDL: 110- 129 mg/dLBorderline High LDL: 130-159 mg/dLHigh LDL: 160-189 mg/dLVery High LDL: greater than or equal to 190 mg/dL HDL Cholesterol 84 >40 mg/dL [facility] Comment:Desirable HDL: great er than 40 mg/dL Note: This HDL assay may give artificially low results in patients with liver disease. Blood 01/14/2025 11:5 6 AM EDT 01/14/2025 1:25 PM EDT us Tyesha Houston MD LAB BLOOD ORDERABLES Final Resul t Performing Organization Address City/[facility]/ZIP Co de Phone Number [facility] [address] [place] [address] [phone] * (ABNORMAL) Albumin, Random Urine W/Creatinine (01/14/2025 11:56 AM EDT) Creatinine, Urine 158.99 mg/dL [facility] Microalbumin Urine 66.0 mg/L [facility] Microalbum Creatinine Ratio Ur 41.5(H) <30 ug/mg cr [facility] Comment:Albumin/Creatinine R atio Reference Ranges: Normal: < 30 ug/mg creatinine Microalbuminuria: 30 - 300 ug/mg creatinineClinical Albuminuria: > 300 ug/mg creatinine Urine 01/14/2025 11:5 6 AM EDT 01/14/2025 1:07 PM EDT Tyesha Houston MD LAB URINE ORDERABLES Final Resul t Performing Organization Address [facility] Co de Phone Number [facility] [address] [place] [phone] * Hepatitis C Antibody with Reflex to HCV, RNA, Quantitative, Real-Time PCR (01/14/2025 11:56 AM EDT) Hepatitis C Antibody Nonreactive Nonreactive [facility] Comment:Antibodies to HCV no t detected; does not exclude early acuteHCV infection. Blood Venous blood specimen / Unknown 01/14/2025 11:56 AM EDT 01/14/2025 1:25 PM EDT Tyesha Houston MD LAB BLOOD ORDERABLES Final Resul t Performing Organization Address [facility] Co de Phone Number [facility] [address] [place] [phone] * HIV-1/2 Antigen and Antibodies, Fourth Generation, with Reflexes (01/14/2025 11:56 AM EDT) HIV AB/AG Nonreactive Nonreactive [facility] Comment:HIV-1 p24 Ag and/or HIV-1/HIV-2 Ab not detected.A test result that is nonreactive does not exclude thepossibility of exposure to or infection with HIV-1 and/orHIV-2. Nonreactive results in this assay for individualswith prior exposure to HIV-1 and/or HIV-2 may be due toantigen and antibody levels that are below the limit ofdetection of this assay.The [employer] Alinity HIV Ag/Ab Combo assay result andsupplemental assay results should be interpreted inconjunction with the patient's clinical presentation,history and other laboratory results. If the results areinconsistent with clinical evidence, additional testing issuggested to confirm the result. Blood Venous blood specimen / Unknown 01/14/2025 11:56 AM EDT 01/14/2025 1:25 PM EDT us Tyesha Houston MD LAB BLOOD ORDERABLES Final Resul t [facility] [address] [place] [phone] * (ABNORMAL) POCT glycosylated hemoglobin (Hgb A1c) (01/14/2025 10:57 AM EDT) Hemoglobin A1C 12.6(A) 4.0 - 6.0 % QC Media Lot # [id number] Lot# Expiration Date [id number] Blood Capillary blood specimen / Unknown 01/14/2025 10:57 AM EDT us Tyesha Houston MD POINT OF CARE TEST ENTER/EDIT OR DERABLES Final Result * HPV E6/E7 RFLX VENU 16 18/45 (08/25/2020 11:45 AM EST) HPV mRNA E6/E7 rflx Not Detected Not Detected [facility] Comment: This test was performed using the APTIM[employer] HPV Assay ([employer] This assay detects E6/E7 viral messenger RNA (mRNA) from 14 high-risk HPV types (16,18,31,33,35,39,45,51,52,56,58,59,66,68). The analytical performance characteristics of this assay have been determined by [employer]. The modifications have not been cleared or approved by the FDA. This assay has been validated pursuant to the CLIA regulations and is used for clinical purposes. THIS TEST WAS PERFORMED AT: [facility] [address] [place] [address],[place] [address] ALDA NIXON MD 08/25/2020 11:4 5 AM EST us Sarina Ann HISTORICAL/NON ORDERABLE LABS Fi nal Result [facility] [address] * Mammography Report 1 (07/24/2020 10:40 [...] Most Recently Relevant to Health Maintenance Insurance C3 Care Teams Assembler Finger Buffs Relationship Specialty Start Date End Date Tyesha Houston MD [address] [place] [id number] PCP - General Family Medicine 04/25/19
--- OUTSIDE RECORDS SUMMARY | 2025-05-26 19:48 | XMS_ITS | Encounter Summary ---
Author Organization [employer] Address 75 [facility] 7 [place] [address] Care Team Providers Care Twister Tender Paper Name Role Phone Tyesha Rogers MD Primary Care Provider Reason for Visit * Reason Onset Date Comments Nurse Triage 11/01/2023 Encounter Details Date Type Department Care Team ([facility] st Contact Info) Description 11/01/2023 Telephone [facility] MEDICINE [address] [place], [place] [phone] Tyesha Rogers MD [address] [place] [address] Nurse Triage Social History Tobacco Use Types [...] disposition at this time and will request [facility] for medications at time of HDF [...] [facility] 230 [place] [address] Tyesha Rogers MD [address] [place] [address] 06/24/2025 9:00 AM EDT Office Visit [facility] OPTOMETRY [address] [place] [address] Raf, Katharine, OD [address] [place] [address] documented as of this encounter Visit Diagnoses Not on filedocumented in this encounter Additional Health Concerns Assessment Noted Time PHQ-9 Depression Total Score: 21 023 9:42 AM EDT documented as of this encounter Care Teams Twister Tender Paper Relationship Specialty Start Date End Date Tyesha Rogers MD [address] [place] [address] PCP - General Family Medicine 04/25/19 documented as of this encounter
--- OUTSIDE RECORDS SUMMARY | 2025-05-26 19:48 | XMS_ITS | Encounter Summary ---
Author Organization [employer] Address 75 [facility] 7 [place] [address] Care Team Providers Care Sand Technician Name Role Phone Tyesha Rogers MD Primary Care Provider [phone] Reason for Visit * Reason Onset Date Comments Nurse Triage 07/04/2023 Encounter Details Date Type Department Care Team ([facility] st Contact Info) Description 07/04/2023 Telephone [facility] MEDICINE 230 [place], [place] [phone] Tyesha Rogers MD 230 [place] [address] Nurse Triage Social History Tobacco Use Types [...] supposed to start the suboxone program at [facility] but, missedher appt. In May 2023 ,she [...] on her way to Walk in at [facility]. I will send this note oliverio in [place] to let them know that pt. Will need a [facility] counselor present for appt. Pt. States that she will arrive to [facility] walk in around 1-130pm. Pt. Declining to [...] Description 06/02/2025 9:00 AM EDT Office Visit [facility] MEDICINE [address] [place] [address] Tyesha Rogers MD [address] [place] [address] 06/24/2025 9:00 AM EDT Office Visit [facility] OPTOMETRY [address] [place] [address] Katharine Carbone OD 230 [place] [address] documented as of this encounter Visit Diagnoses Not on filedocumented in this encounter Additional Health Concerns Assessment Noted Time PHQ-9 Depression Total Score: 9 08/18/20 22 11:40 AM EST documented as of this encounter Care Teams Sand Technician Relationship Specialty Start Date End Date Tyesha Rogers MD 230 [place] [address] PCP - General Family Medicine 04/25/19 documented as of this encounter
--- OUTSIDE RECORDS SUMMARY | 2025-05-26 19:48 | XMS_ITS | Encounter Summary ---
Author Organization [facility] Address [address] [place] [address] Care Team Providers Care Edger Liner Name Role Phone Pilar Coombs MD Primary Care Provider Unavail able Donna Donis MD Primary Care Provider Tyesha Cheatham Primary Care Provider Unavailabl e Encounter Details Date Type Department Care Team Description 11/28/2016 Hospital Medical Records [address] [place] [address] Alexander Luna MD Social History Tobacco Use [...] on filedocumented in this encounter Care Teams Edger Liner Relationship Specialty Start Date End Date Pilar Coombs MD PCP - General Internal Medicine 09/15/16 01/07/19 Donna Donis MD PCP - General Internal Medicine 01/08/19 12/01/21 Tyesha Rogers PCP - General Family Practice 12/02/21 documented as of this encounter
--- OUTSIDE RECORDS SUMMARY | 2025-05-26 19:48 | XMS_ITS | Encounter Summary ---
Author Organization [employer] Address 75 [facility] 7t [place] [address] Care Team Providers Care Senior Catering Sales Manager Name Role Phone Tyesha Rogers MD Primary Care Provider [phone] Encounter Details Date Type Department Care Team (Late st Contact Info) Description 05/06/2024 Orders Only [facility] MEDICINE [address] [place], [place] [phone] Tyesha Rogers MD [address] [place], [place] [phone] Social History Tobacco Use Types Packs/Day Years [...] 9:00 AM EDT Office Visit [facility] MEDICINE [address] [place] [address] Tyesha Rogers MD [address] [place] [address] 06/24/2025 9:00 AM EDT Office Visit [facility] OPTOMETRY [address] [place], [place] [phone] Raf, Katharine, OD [address] [place] [address] documented as of this encounter Visit Diagnoses Not on filedocumented in this encounter Additional Health Concerns Assessment Noted Time PHQ-9 Depression Total Score: 21 024 10:41 AM EDT documented as of this encounter Care Teams Senior Catering Sales Manager Relationship Specialty Start Date End Date Tyesha Rogers MD [address] [place], [place] [phone] PCP - General Family Medicine 04/25/19 documented as of this encounter
--- OUTSIDE RECORDS SUMMARY | 2025-05-26 19:48 | XMS_ITS | Encounter Summary ---
Author Organization [facility] Address [address] [place] [address] Care Team Providers Care Information Systems Security Officer Name Role Phone Casandra Duong MD Primary Care Provider Barrie [facility] Yoly Pcp Primary Care Provider UnavailPilar Reed MD Primary Care Provider Unavail Donna Wadsworth MD Primary Care Provider Tyesha Cheatham Primary Care Provider Unavailabl e Reason for Visit * Reason Onset Date Comments [facility] Call 12/22/2015 Encounter Details Date Type Department Care Team Description 12/22/2015 Telephone Adult Medicine - [address] [address] Casandra Duong MD [facility]NA Call Social History Tobacco Use Types Packs/Day Years Used Date Smoking Tobacco: Every Day Cigarettes Smokeless Tobacco: Never Comments:trying to quit Alcohol Use Standard Drinks/Week Comments Yes 0 (1 standard drink = 0.6 oz pur e alcohol) 3 drinks per mo Sex Assigned at Date Recorded Not on file documented as of this encounter Miscellaneous Notes * Telephone Encounter - Casandra Duong MD - 12/22/2015 11:53 AM EDT Message reviwed. * Telephone Encounter - Nola Avalos - 12/22/2015 10:18 AM EDT [facility] CALL Which [facility] office is calling? [facility] Full name of caller: Yas The caller is A nurse Is the caller at the patients home?: NO Reason for call: nurse wants to inform Dr Duong patient had scheduled nursing visit on 12/19 and she missed it Does caller need an urgent call back? NO Was CONTACT Telephone # obtained above?: YES documented in this encounter Plan of Treatment Not on file documented as of this encounter Visit Diagnoses Not on filedocumented in this encounter Care Teams Information Systems Security Officer Relationship Specialty Start Date End Date Casandra Duong MD PCP - General Internal Medicine 08/31/15 01/07/16 Lillian Frederick PCP - General Internal Medicine 01/08/16 09/14/16 Pilar Coombs MD PCP - General Internal Medicine 09/15/16 01/07/19 Donna Donis MD PCP - General Internal Medicine 01/08/19 12/01/21 Tyesha Rogers PCP - General Family Practice 12/02/21 documented as of this encounter
--- OUTSIDE RECORDS SUMMARY | 2025-05-26 19:48 | XMS_ITS | Encounter Summary ---
Author Organization [facility] Address [address] [place] [address] Care Team Providers Care Harm Reduction Worker Name Role Phone Casandra Duong MD Primary Care Provider Barrie Frederick Pcp Primary Care Provider Pilar Gustafson MD Primary Care Provider Unavail Donna Wadsworth MD Primary Care Provider Tyesha Cheatham Primary Care Provider Martinez hunter Encounter Details Date Type Department Care Team Description 09/23/2015 [facility] Medical Records [address] [place] [address] [facility] Social History Tobacco Use Types Packs/Day [...] on filedocumented in this encounter Care Teams Harm Reduction Worker Relationship Specialty Start Date End Date Casandra [...]
--- OUTSIDE RECORDS SUMMARY | 2025-05-26 19:48 | XMS_ITS | Encounter Summary ---
Author Organization [employer] Address 75 [facility] 7t [place] [address] Care Team Providers Care Travel Agency Manager Name Role Phone Tyesha Rogers MD Primary Care Provider [phone] Encounter Details Date Type Department Care Team (Late st Contact Info) Description 06/05/2024 Orders Only [facility] [address] [place], [place] [phone] Henry Choi MD [address] [place] [address] Social History Tobacco Use Types Packs/Day Years [...] Office Visit [facility] MEDICINE [address] [place] [address] Tyesha Rogers MD [address] [place] [address] 06/24/2025 9:00 AM EDT Office Visit [facility] OPTOMETRY [address] [place], [place] [phone] Raf, aKtharine, OD [address] [place] [address] documented as of this encounter Visit Diagnoses Not on filedocumented in this encounter Additional Health Concerns Assessment Noted Time PHQ-9 Depression Total Score: 24 024 10:42 AM EDT documented as of this encounter Care Teams Travel Agency Manager Relationship Specialty Start Date End Date Tyesha Rogers MD [address] [place], [place] [phone] PCP - General Family Medicine 04/25/19 documented as of this encounter
--- OUTSIDE RECORDS SUMMARY | 2025-05-26 19:48 | XMS_ITS | Encounter Summary ---
Author Organization [employer] Address [address] [place] [address] 7 [place] [address] Care Team Providers Care Bradley Linebacker Crewmember Name Role Phone Tyesha Rogers MD Primary Care Provider [phone] Reason for Referral * Consultation (Routine) - Closed Specialty Diagnoses / Procedures Referred By Contangel t Referred To Contact Diagnoses Type 2 diabetes mellitus with hyperglycemia, with long-term current use of insulin (CMS/HCC) Hypertension, unspecified type Multiple sclerosis (CMS/HCC) Tyesha Rogers MD [address] [place] [address] Phone: tel: fax: [address] [address] Phone: tel: fax: Referral ID Status Reason Start Date Expiration Date V isits Requested Visits Authorized [id number] Closed Specialty Services Required 11/15/2024 11/15/2025 1 1 Encounter Details Date Type Department Care Team (Late st Contact Info) Description 11/15/2024 Orders Only [facility] MEDICINE [address] [place] [address] [phone] Tyesha Rogers MD [address] [place] [address] [phone] Type 2 diabetes mellitus with hyperglycemia, with long-term current use of insulin (CMS/HCC) (Primary Dx); Hypertension, unspecified type; Multiple sclerosis (CMS/HCC); Type 2 diabetes mellitus with hyperglycemia (CMS/HCC); Type 2 diabetes mellitus with hyperglycemia, with long-term current use of insulin ([facility]) Social History Tobacco Use Types Packs/Day Years [...] Upcoming Encounters Date Type Department Care Team ([facility] st Contact Info) Description 06/02/2025 9:00 AM EDT Office Visit [facility] MEDICINE [address] [place] [address] Tyesha Rogers MD [address] [place] [address] 06/24/2025 9:00 AM EDT Office Visit [facility] OPTOMETRY [address] [place] [address] Raf, Katharine, OD [address] [place] [address] Scheduled Referrals Name Type Priority Associated Diagnoses [...] documented as of this encounter Care Teams Bradley Linebacker Crewmember Relationship Specialty Start Date End Date Tyesha Rogers MD [address] [place] [address] PCP - General Family Medicine 04/25/19 documented as of this encounter
--- OUTSIDE RECORDS SUMMARY | 2025-05-26 19:48 | XMS_ITS | Encounter Summary ---
Author Organization [employer] Address 75 [facility] 7t [place] [address] Care Team Providers Care Water Softener Servicer Name Role Phone Tyesha Rogers MD Primary Care Provider [phone] Reason for Visit * Reason Comments Med Refill Encounter Details Date Type Department Care Team ([facility] st Contact Info) Description 11/23/2024 Refill [facility] MEDICINE [address] [place], [place] [phone] Tyesha Rogers MD [address] [place], [place] [phone] Other chronic pain Social History Tobacco Use [...] 06/02/2025 9:00 AM EDT Office Visit [facility] MEDICINE [address] [place] [address] Tyesha Rogers MD [address] [place] [address] 06/24/2025 9:00 AM EDT Office Visit [facility] OPTOMETRY [address] [place] [address] Raf, Katharine, OD [address] [place] [address] documented as of this encounter Visit Diagnoses Diagnosis Other chronic pain documented in this encounter Additional Health Concerns Assessment Noted Time PHQ-9 Depression Total Score: 15 025 11:52 AM EST documented as of this encounter Care Teams Water Softener Servicer Relationship Specialty Start Date End Date Tyesha Rogers MD [address] [place] [address] PCP - General Family Medicine 04/25/19 documented as of this encounter
--- OUTSIDE RECORDS SUMMARY | 2025-05-26 19:48 | XMS_ITS | Encounter Summary ---
Author Organization [facility] Address [address] [place] [address] Care Team Providers Care Fence Laborer Name Role Phone Imelda Camarillo DO Primary [...] Department Care Team Description 04/24/2015 Telephone Adult [address] [address] Imelda Camarillo DO Prior Authorization Social History [...] form filled out & signed. Faxed to [employer] @ [phone] * Telephone Encounter - Erica AlmontePSteve - 05/05/2015 1:39 PM EDT Her Prior Auth was done & sent in. However it was returned this AM stating she no longer has this ins. I found she now [employer]. New form was filled out & [...] Primary documented in this encounter Care Teams Fence Laborer Relationship Specialty Start Date End Date Imelda Camarillo DO PCP - General Internal Medicine 12/26/14 08/30/15 Casandra Duong MD PCP - General Internal Medicine 08/31/15 01/07/16 [facility], Pcp PCP - General Internal Medicine 01/08/16 09/14/16 Pilar Coombs MD PCP - General Internal Medicine 09/15/16 01/07/19 Donna Donis MD PCP - General Internal Medicine 01/08/19 12/01/21 Tyesha Rogers PCP - General Family Practice 12/02/21 documented as of this encounter
--- OUTSIDE RECORDS SUMMARY | 2025-05-26 19:48 | XMS_ITS | Encounter Summary ---
Author Organization [employer] Address 75 [facility] 7 [place] [address] Care Team Providers Care Systems Support Engineer Name Role Phone Tyesha Rogers MD Primary Care Provider [phone] Reason for Visit * Reason Onset Date Comments New Med Request 05/03/2024 Medication Question 05/03/2024 Encounter Details Date Type Department Care Team ([facility] st Contact Info) Description 05/03/2024 Telephone [facility] MEDICINE [address] [place], [place] [phone] Tyesha Rogers MD [address] [place] [address] New Med Request; Medication Question Social History [...] pt is no longer a patient at [facility] due to move and because the medications were prescribed by her psychiatrist,she should reach out to psychiatrist for these medications. Patient stated she is moving back to [place], date unknown, health technical writer again advised pt to contact psychiatrist as they are the prescriber and informed pt that Dr Rogers would be informed of move back. Patient verbalized understanding. --Dr Rogers Patient left our health center and moved to [place]. Her anxiety medications have been prescribed by her psychiatrist. * Telephone Encounter - Andrew Garcia - 05/03/2024 12:17 PM EDT Tc from patient calling to request a medication for anxiety will be flying from [facility] on 05/14 and would like it to be sent to [facility] Address: [address] [place] [address] documented in this encounter Plan of Treatment Upcoming Encounters Date Type Department Care Team (Late st Contact Info) Description 06/02/2025 9:00 AM EDT Office Visit [facility] MEDICINE [address] [place] [address] Tyesha Rogers MD [address] [place] [address] 06/24/2025 9:00 AM EDT Office Visit [facility] OPTOMETRY [address] [place], [place] [phone] Katharine Carbone, OD [address] [place] [address] documented as of this encounter Visit Diagnoses Not on filedocumented in this encounter Additional Health Concerns Assessment Noted Time PHQ-9 Depression Total Score: 21 04/ 024 10:41 AM EDT documented as of this encounter Care Teams Systems Support Engineer Relationship Specialty Start Date End Date Tyesha Rogers MD [address] [place], [place] [phone] PCP - General Family Medicine 04/25/19 documented as of this encounter
--- OUTSIDE RECORDS SUMMARY | 2025-05-26 19:48 | XMS_ITS | Encounter Summary ---
Author Organization [employer] Address 75 [facility] 7t [place] [address] Care Team Providers Care Underground Electrician Name Role Phone Tyesha Rogers MD Primary Care Provider [phone] Encounter Details Date Type Department Care Team ([facility] st Contact Info) Description 11/01/2023 Telephone [facility] MEDICINE [address] [place], [place] [phone] Tyesha Rogers MD [address] [place], [place] [phone] Social History Tobacco Use Types Packs/Day Years [...] Description 06/02/2025 9:00 AM EDT Office Visit [facility] MEDICINE [address] [place] [address] Tyesha Rogers MD [address] [place] [address] 06/24/2025 9:00 AM EDT Office Visit [facility] OPTOMETRY [address] [place], [place] [phone] Raf, Katharine, OD [address] [place] [address] documented as of this encounter Visit Diagnoses Not on filedocumented in this encounter Additional Health Concerns Assessment Noted Time PHQ-9 Depression Total Score: 21 023 9:42 AM EDT documented as of this encounter Care Teams Underground Electrician Relationship Specialty Start Date End Date Tyesha Rogers MD [address] [place], [place] [phone] PCP - General Family Medicine 04/25/19 documented as of this encounter
--- OUTSIDE RECORDS SUMMARY | 2025-05-26 19:48 | XMS_ITS | Encounter Summary ---
Author Organization [employer] Address 75 [facility] 7t [place] [address] Care Team Providers Care Form Presser Name Role Phone Tyesha Rogers MD Primary Care Provider Reason for Visit * Reason Comments Med Refill Encounter Details Date Type Department Care Team ([facility] st Contact Info) Description 04/24/2024 Refill [facility] MEDICINE [address] [place], [place] [phone] Tyesha Rogers MD [address] [place], [place] [phone] Vitamin D deficiency; Hypothyroidism, unspecified type Social [...] requests. This patient is currently living in [place]. She left [facility]. Please seen Dr. Grimes's note in February 2024. Thank you documented in this encounter Plan of Treatment Upcoming Encounters Date Type Department Care Team (Late st Contact Info) Description 06/02/2025 9:00 AM EDT Office Visit [facility] MEDICINE [address] [place] [address] Tyesha Rogers MD [address] [place] [address] 06/24/2025 9:00 AM EDT Office Visit [facility] OPTOMETRY [address] [place] [address] Katharine Carbone, ZAHIDA [address] [place] [address] documented as of this encounter Visit Diagnoses Diagnosis Vitamin D deficiency Hypothyroidism, unspecified type documented in this encounter Additional Health Concerns Assessment Noted Time PHQ-9 Depression Total Score: 21 024 10:41 AM EDT documented as of this encounter Care Teams Form Presser Relationship Specialty Start Date End Date Tyesha Rogers MD [address] [place] [address] PCP - General Family Medicine 04/25/19 documented as of this encounter
--- OUTSIDE RECORDS SUMMARY | 2025-05-26 19:48 | XMS_ITS | Encounter Summary ---
Author Organization [facility] Address [address] [facility] [place] [address] Care Team Providers Care Advisory Intern Name Role Phone Pilar Coombs MD Primary Care Provider Unavail able Donna Donis MD Primary Care Provider Tyesha Cheatham Primary Care Provider Unavailabl e Encounter Details Date Type Department Care Team Description 11/25/2016 Hospital Medical Records [address] [place] [address] Anthony Breen Social History Tobacco Use Types [...] on filedocumented in this encounter Care Teams Advisory Intern Relationship Specialty Start Date End Date Pilar Coombs MD PCP - General Internal Medicine 09/15/16 01/07/19 Donna Donis MD PCP - General Internal Medicine 01/08/19 12/01/21 Tyesha Rogers PCP - General Family Practice 12/02/21 documented as of this encounter
--- OUTSIDE RECORDS SUMMARY | 2025-05-26 19:48 | XMS_ITS | Encounter Summary ---
Author Organization [facility] Address [address] [place] [address] Care Team Providers Care Wildlife Biology Technician Name Role Phone Katherine Coombs MD Primary Care Provider Donna Brown MD Primary Care Provider Tyesha Cheatham Primary Care Provider Unavailabl e Reason for Referral * Non EDDIE (Routine) - Authorized/Booked Specialty Diagnoses / Procedures Referred By Contangel ro Referred To Contact Dermatology Procedures REFERRAL TO DERMATOLOGY Katherine Coombs MD [address] [place] [address] Sorin Peters MD [address] [facility] [address] [place] [address] Referral ID Status Reason Start Date Expiration Date V isits Requested Visits Authorized [id number] Authorized/B ooked 11/24/2016 11/24/2017 1 1 Reason for Visit * Reason Onset Date Comments Tumor Registrar Feedback 11/24/2016 dermatology Encounter Details Date Type Department Care Team Description 11/24/2016 Telephone Adult Medicine [facility] [address] [place] [address] [phone] Katherine Coombs MD Tumor Registrar Feedback (dermatology) Social History Tobacco Use Types Packs/Day Years Used Date Smoking Tobacco: Every Day Cigarettes 30 Smokeless Tobacco: Never Comments:trying to quit Alcohol Use Standard Drinks/Week Comments Yes 0 (1 standard drink = 0.6 oz pur e alcohol) 3 drinks per mo Sex Assigned at Date Recorded Not on file documented as of this encounter Miscellaneous Notes * Telephone Encounter - Katherine Coombs MD - 11/24/2016 4:55 PM EDT Placed external order * Telephone Encounter - Krystle George R.N. - 11/24/2016 4:[address] gould can you change derm referral to external? Pt refuses to go to [place] and wants to be seen in [place] or [place] only * Telephone Encounter - Elina Means - 11/24/2016 4:39 PM EDT There is no dermatology in [place] or [facility]. * Telephone Encounter - Krystle George R.N. - 11/24/2016 4:34 PM EDT I am sorry, this was a derm referral not allergy, she was referred to dr peters in [place], for itching, she will not go to [place] , wants to be seen in [place] or [place] only. * Telephone Encounter - Elina Means - 11/24/2016 4:29 PM EDT What is the patient diagnosis for the allergy so we can send a order to the provider. * Telephone Encounter - Krystle George R.N. - 11/24/2016 4:09 PM EDT Pt is falling and feels that her MS is contributing to this because of leg weakness, she is due to see her neurologist tomorrow .she will call us if he suggests she needs to see her PCP Pt was referred to an check scaler and was given an appointment in [place], she does not go to [place] and is asking for a different neurologist , someone is Aishwarya, please. Will send to referral forthis change * Telephone Encounter - Zoya Acevedo - 11/24/2016 11:36 AM EDT Symptoms patient is presenting: patient Has been having numerous falls // Leg pain // Patient Has an appt with dr gould on 12/28 Offered an appt Sooner she would like to speak with nurse To see if its ok to wait until 12/28 If pain or injury related was it due to an accident at work or from a motor vehicle accident? NO If yes, gather 3rd republican insurance information Date of accident/Injury: no How long has patient had these symptoms?: on going PCP: KATHERINE GOULD [place] / Plan: MEDICAID PCC / Product Type: MEDICAID [id number] documented in this encounter Plan of Treatment Not on file documented as of this encounter Visit Diagnoses Not on filedocumented in this encounter Care Teams Wildlife Biology Technician Relationship Specialty Start Date End Date Katherine Coombs MD PCP - General Internal Medicine 09/15/16 01/07/19 Donna Donis MD PCP - General Internal Medicine 01/08/19 12/01/21 Tyesha Rogers PCP - General Family Practice 12/02/21 documented as of this encounter
--- OUTSIDE RECORDS SUMMARY | 2025-05-26 19:48 | XMS_ITS | Encounter Summary ---
Author Organization [facility] Address [address] [place] [address] Care Team Providers Care Pipe Organ Technician Name Role Phone Casandra Duong MD Primary Care Provider Barrie Frederick Pcp Primary Care Provider UnavailPilar Reed MD Primary Care Provider Unavail Donna Wadsworth MD Primary Care Provider Tyesha Cheatham Primary Care Provider Unavailabl e Reason for Visit * Reason Onset Date Comments other 12/08/2015 Encounter Details Date Type Department Care Team Description 12/08/2015 Telephone Adult Medicine [address] [address] Casandra Duong MD other Social History Tobacco Use Types Packs/Day Years Used Date Smoking Tobacco: Every Day Cigarettes Smokeless Tobacco: Never Comments:trying to quit Alcohol Use Standard Drinks/Week Comments Yes 0 (1 standard drink = 0.6 oz pur e alcohol) 3 drinks per mo Sex Assigned at Date Recorded Not on file documented as of this encounter Miscellaneous Notes * Telephone Encounter - Ese Meyers L.P.N. - 12/08/2015 4:15 PM EDT Outreach to pt today for hospital follow up, states she changed PCP as of today as it is too far for her to get here with her medical issues. FYI. documented in this encounter Plan of Treatment Not on file documented as of this encounter Visit Diagnoses Not on filedocumented in this encounter Care Teams Pipe Organ Technician Relationship Specialty Start Date End Date Casandra Duong MD PCP - General Internal Medicine 08/31/15 01/07/16 [facility], Pcp PCP - General Internal Medicine 01/08/16 09/14/16 Pilar Coombs MD PCP - General Internal Medicine 09/15/16 01/07/19 Donna Donis MD PCP - General Internal Medicine 01/08/19 12/01/21 Tyesha Rogers PCP - General Family Practice 12/02/21 documented as of this encounter
--- OUTSIDE RECORDS SUMMARY | 2025-05-26 19:48 | XMS_ITS | Encounter Summary ---
Author Organization [facility] Address [address] [place] [address] Care Team Providers Care Lens Generating Machine Tender Name Role Phone Casandra Duong MD Primary Care Provider Barrie Frederick, Pcp Primary Care Provider Pilar Gustafson MD Primary Care Provider Unavail Donna Wadsworth MD Primary Care Provider Tyesha Cheatham Primary Care Provider Martinez hunter Encounter Details Date Type Department Care Team Description 11/16/2015 Home Health Certification Medical Records [address] [place] [address] Rosio Sebastian [address] [place] [address] Social History Tobacco Use Types Packs/Day Years [...] on filedocumented in this encounter Care Teams Lens Generating Machine Tender Relationship Specialty Start Date End Date Casandra [...]
--- OUTSIDE RECORDS SUMMARY | 2025-05-26 19:48 | XMS_ITS | Encounter Summary ---
Author Organization [employer] Address [address] [facility] 7 [place] [address] Care Team Providers Care Dough Raiser Name Role Phone Tyesha Rogers MD Primary Care Provider [phone] Reason for Visit * Reason Onset Date Comments Hospital Follow-up 05/29/2024 Encounter Details Date Type Department Care Team (Late st Contact Info) Description 05/29/2024 Telephone [facility] MEDICINE [address] [place], [place] [phone] Tyesha Rogers MD [address] [place] [address] Hospital Follow-up Social History Tobacco Use Types [...] from pt requesting a HDF appt. Hospital: [facility] Date of admission: 05/28/24 Discharge date: 05/29/24 Diagnosed: urticaria documented in this encounter Plan of Treatment Upcoming Encounters Date Type Department Care Team (Late st Contact Info) Description 06/02/2025 9:00 AM EDT Office Visit [facility] MEDICINE [address] [place] [address] Tyesha Rogers MD [address] [place] [address] 06/24/2025 9:00 AM EDT Office Visit [facility] OPTOMETRY [address] [place] [address] Katharine Carbone OD [address] [place] [address] documented as of this encounter Visit Diagnoses Not on filedocumented in this encounter Additional Health Concerns Assessment Noted Time PHQ-9 Depression Total Score: 24 024 10:42 AM EDT documented as of this encounter Care Teams Dough Raiser Relationship Specialty Start Date End Date Tyesha Rogers MD [address] [place] [address] PCP - General Family Medicine 04/25/19 documented as of this encounter
--- OUTSIDE RECORDS SUMMARY | 2025-05-26 19:48 | XMS_ITS | Encounter Summary ---
Author Organization [facility] Address [address] [place] [address] Care Team Providers Care Staff Command And Control Officer Name Role Phone Imelda Camarillo DO Primary [...] Care Team Description 07/20/2015 Telephone Adult Medicine [address] [address] Imelda Camarillo DO er follow up Social [...] scheduled with: Hospital patient was treated at: [facility] Date of visit: 07/11/15 Was this only [...] on filedocumented in this encounter Care Teams Staff Command And Control Officer Relationship Specialty Start Date End Date Imelda [...]
--- OUTSIDE RECORDS SUMMARY | 2025-05-26 19:48 | XMS_ITS | Encounter Summary ---
Author Organization [facility] Address [address] [place] [address] Care Team Providers Care Marketing Representative Name Role Phone Casandra Duong MD Primary Care Provider Barrie Frederick Pcp Primary Care Provider Pilar Gustafson MD Primary Care Provider Unavail Donna Wadsworth MD Primary Care Provider Tyesha Cheatham Primary Care Provider Martinez hunter Encounter Details Date Type Department Care Team Description 10/21/2015 [facility] Medical Records [address] [place] [address] Alexander Luna MD Social History Tobacco Use [...] filedocumented in this encounter Care Teams Marketing Representative Relationship Specialty Start Date End Date Casandra [...]
--- OUTSIDE RECORDS SUMMARY | 2025-05-26 19:48 | XMS_ITS | Encounter Summary ---
Author Organization [facility] Address [address] [place] [address] Care Team Providers Care Wafer Line Worker Name Role Phone Imelda Camarillo DO Primary Care Pro vider Unavailable Casandra Duong MD Primary Care Provider Barrie Frederick, Pcp Primary Care Provider Pilar Gustafson MD Primary Care Provider Unavail Donna Wadsworth MD Primary Care Provider Tyesha Cheatham Primary Care Provider Martinez hunter Encounter Details Date Type Department Care Team Description 06/04/2015 [facility] Medical Records [address] [place] [address] Kathy Miles PA Social History Tobacco Use Types Packs/Day [...] on filedocumented in this encounter Care Teams Wafer Line Worker Relationship Specialty Start Date End Date [...]
--- OUTSIDE RECORDS SUMMARY | 2025-05-26 19:48 | XMS_ITS | Encounter Summary ---
Author Organization [employer] [facility] Address [address] [place] [address] [address] [place] [address] Care Team Providers Care Sagger Soak Name Role Phone Tyesha Rogers MD Primary Care Provider [phone] Encounter Details Date Type Department Care Team (Late st Contact Info) Description 08/08/2022 Abstract [facility] MEDICINE [address] [place] [address] ProviderJhony MD Social History Tobacco Use Types [...] 9:00 AM EDT Office Visit [facility] MEDICINE [address] [place] [address] Tyesha Rogers MD [address] [place] [address] 06/24/2025 9:00 AM EDT Office Visit [facility] OPTOMETRY [address] [place] [address] Katharine Carbone, OD [address] [place] [address] documented as of this encounter Visit Diagnoses Not on filedocumented in this encounter Care Teams Sagger Soak Relationship Specialty Start Date End Date Tyesha Rogers MD [address] [place] [address] PCP - General Family Medicine 04/25/19 documented as of this encounter
--- OUTSIDE RECORDS SUMMARY | 2025-05-26 19:48 | XMS_ITS | Encounter Summary ---
Author Organization [facility] Address [address] [place] [address] Care Team Providers Care Insurance Representative Name Role Phone Imelda Camarillo DO Primary Care Pro vider Unavailable Casandra Duong MD Primary Care Provider Barrie Frederick, Pcp Primary Care Provider Pilar Gustafson MD Primary Care Provider Unavail Donna Wadsworth MD Primary Care Provider Tyesha Cheatham Primary Care Provider Martinez hunter Encounter Details Date Type Department Care Team Description 06/07/2015 [facility] Medical Records [address] [place] [address] Cheryl Luna Social History Tobacco Use Types [...] filedocumented in this encounter Care Teams Insurance Representative Relationship Specialty Start Date End Date Imelda Camarillo DO PCP - General Internal Medicine 12/26/14 08/30/15 Casandra Duong MD PCP - General Internal Medicine 08/31/15 01/07/16 [facility], Pcp PCP - General Internal Medicine 01/08/16 09/14/16 Pilar Coombs MD PCP - General Internal Medicine 09/15/16 01/07/19 Donna Donis MD PCP - General Internal Medicine 01/08/19 12/01/21 Tyesha Rogers PCP - General Family Practice 12/02/21 documented as of this encounter
--- OUTSIDE RECORDS SUMMARY | 2025-05-26 19:48 | XMS_ITS | Encounter Summary ---
Author Organization [employer] Address [address] [facility] 7 [place] [address] Care Team Providers Care Medical Appointment Scheduler Name Role Phone Tyesha Rogers MD Primary Care Provider [phone] Encounter Details Date Type Department Care Team (Late st Contact Info) Description 07/11/2024 Telephone [facility] MEDICINE [address] [place], [place] [phone] Mira Vanegas, PharmD [address] [place] [address] Social History Tobacco Use Types Packs/Day Years [...] Please assist in obtaining discharge paperwork from [facility] Patient was admitted on 06/21/2024. Thank you documented in this encounter Plan of Treatment Upcoming Encounters Date Type Department Care Team (Late st Contact Info) Description 06/02/2025 9:00 AM EDT Office Visit [facility] MEDICINE [address] [place] [address] Tyesha Rogers MD [address] [place] [address] 06/24/2025 9:00 AM EDT Office Visit [facility] OPTOMETRY [address] [place] [address] Raf, Katharine, OD [address] [place] [address] documented as of this encounter Visit Diagnoses Not on filedocumented in this encounter Additional Health Concerns Assessment Noted Time PHQ-9 Depression Total Score: 24 024 8:33 AM EDT documented as of this encounter Care Teams Medical Appointment Scheduler Relationship Specialty Start Date End Date Tyesha Rogers MD [address] [place] [address] PCP - General Family Medicine 04/25/19 documented as of this encounter
== END 2025-05-26 18:06 | disposition home or self-care (01) ==
PROVIDERS: Registered Nurse Emergency; Emergency Provider Emergency Medicine; PCP Family Medicine
DX: R10.9 Unspecified abdominal pain (principal); K59.00 Constipation, unspecified; E11.65 Type 2 diabetes mellitus with hyperglycemia; Z79.4 Long term (current) use of insulin; G35 Multiple sclerosis; I10 Essential (primary) hypertension; Z86.711 Personal history of pulmonary embolism; Z79.01 Long term (current) use of anticoagulants; Z79.899 Other long term (current) drug therapy; Z87.19 Personal history of other diseases of the digestive system
CPT/HCPCS: 36415; 74018; 80053; 81001; 81003; 82010; 82803; 82947; 83690; 83735; 85025; 96361; 96374; 96375; 99285; J0131; J1200; J2765

== ENCOUNTER → 2025-05-26 14:00 | Outpatient (BNV) | payer MEDICAID, SELFPAY | PROVIDERS: PCP Family Medicine; Visit Provider Radiology Diagnostic Radiology | DX: R10.9 Unspecified abdominal pain (principal); R14.0 Abdominal distension (gaseous) | CPT/HCPCS: 74018 ==

== ENCOUNTER 2025-05-30 10:03 | Inpatient (IN) | payer MEDICAID, SELFPAY ==
--- OUTSIDE RECORDS SUMMARY | 2025-05-28 10:00 | XMS_ITS | Encounter Summary ---
Author Organization [facility] Address [address] [facility] 7t [place] [address] Care Team Providers Care Energy Projects Lead Name Role Phone Tyesha Rogers MD Primary Care Provider [phone] Reason for Visit * Reason Comments GBAT Encounter Details Date Type Department Care Team ([facility] st Contact Info) Description 05/28/2025 10:00 AM EDT Office Visit [facility] MEDICINE [address] [place], [place] [phone] Wojciech Hodges MD [address] [place], [place] [phone] Substance use disorder (Primary Dx) Social History Tobacco Use Types [...] as of this encounter Progress Notes * Wojciech Hodges MD - 05/28/2025 10:00 AM EDT LAST GBAT VISIT 02/26/2025 Patient presents for Group-Based Addiction Treatment for [place] Reviewed the group goals, expectations and policies Consented to the group treatment options Actively participated in the group discussion with the topic of: Redefining Fun Without Substances Following staff present at the visit: Physician, Hand Fretted Instrument Maker, Team RN, Clinician, and MedicalAssistant Opportunities provided to address individual medical/medication/BH concerns States doing well without cravings or relapse TODAY GBAT VISIT 05/28/2025 Patient presents for Group-Based Addiction Treatment for [place] Challenged by lack of stable housing and underlying MS Reviewed the group goals, expectations and policies Consented to the group treatment options Actively participated in the group discussion with the topic of: Step Forward/Learning Along the Way Following staff present at the visit: Physician, Hand Fretted Instrument Maker, Team RN, Clinician, and MedicalAssistant Opportunities provided to address individual medical/medication/BH concerns States doing well without cravings or relapse Review of Systems Psychiatric/Behavioral: Negative for behavioral problems and dysphoric mood. The patient is not nervous/anxious. Physical Exam Constitutional: Appearance: Normal appearance. Pulmonary: Effort: Pulmonary effort is normal. Neurological: Mental Status: She is alert. Psychiatric: Mood and Affect: Mood normal. Behavior: Behavior normal. Emily was seen today for gbat. Diagnoses and all orders for this visit: Substance use disorder (Primary) Patient presents for Group-Based Addiction Treatment of [place] Reviewed the group goals, expectations and policies Consented to the group treatment options Actively participated in the group discussed Future discussion topics reviewed Reviewed behavioral modification and accessing services Group counseling provided with a focus on support system, tools for achieving/maintaining recovery Reviewed barriers for these goals Discussed strategies to address when faced situations that may trigger use [employer] ULTIMATE HOOPS SCOREBOARD OPERATOR reviewed Following staff present at the visit: Physician, Team RN, Clinician, Hand Fretted Instrument Maker and Gauger Chief Follow up in 1 week for the next GBAT meeting This information has been disclosed to you from records protected by federal confidentiality rules (42 CFR Part 2). The federal rules prohibit you from making any further disclosure of information inthis record that identifies a patient as having or having had a substance use disorder either directly, by reference to publicly available information, or through verification of such identification by another person unless further disclosure is expressly permitted by the written consent of the individual whose information is being disclosed or as otherwise permitted by (see2.3.1). The federal rules restrict any use of the information to investigate or prosecute with regard to a crime any patient with a substance use disorder, except as provided at 2.12??(5) and 2.65. documented in this encounter Plan of Treatment Upcoming Encounters Date Type Department Care Team (Late st Contact Info) Description 06/02/2025 9:00 AM EDT Office Visit [facility] MEDICINE [address] [place] [address] Tyesha Rogers MD [address] [place] [address] 06/24/2025 9:00 AM EDT Office Visit [facility] OPTOMETRY [address] [place] [address] Katharine Carbone, ZAHIDA [address] [place] [address] documented as of this encounter Visit Diagnoses Diagnosis Substance use disorder- Primary documented in this encounter Additional Health Concerns Assessment Noted Time PHQ-9 Depression Total Score: 14 025 1:25 PM EDT documented as of this encounter Care Teams Energy Projects Lead Relationship Specialty Start Date End Date Tyesha Rogers MD [address] [place] [address] PCP - General Family Medicine 04/25/19 documented as of this encounter
--- NOTE | ~2025-05-30 | XR_ITS ---
EXAMINATION: XR CHEST CLINICAL INFORMATION: cp sob COMPARISON: 07/19/2024. TECHNIQUE: Frontal view of the chest was obtained. FINDINGS: The cardiac, hilar, and mediastinal contours are normal. The lungs are clear bilaterally. No pneumothorax or effusion. No focal osseous or soft tissue abnormality. XR/XR chest 1V IMPRESSION: No active pulmonary disease. Electronically signed by: Dayne Nieves MD 05/30/2025 01:43 PM EDT
--- NOTE | ~2025-05-30 | XR_ITS ---
CLINICAL HISTORY: knee pain Radiographs of the left knee, 4 views Comparison: None available Findings: There is no fracture or dislocation. No joint space narrowing or osteophytosis. No knee joint effusion. No soft tissue swelling. Impression: No acute pathology or degenerative change. This document has been electronically signed by: Osiris Angela MD on 05/31/2025 14:18:27
--- NOTE | ~2025-05-30 | NM_ITS ---
EXAMINATION: NM LUNG PERFUSION HISTORY: V/Q scan shortness of breath, chest pain hx DVT/PE. TECHNIQUE: A pulmonary perfusion scan was performed following the intravenous administration of 3.8 mCi technetium 99m-MAA. Images were obtained in multiple projections. COMPARISON: Comparison is made with the prior examination dated 07/19/2024. Correlation is also made with an AP portable view of the chest performed earlier in the day. FINDINGS: No segmental or large subsegmental perfusion defects are identified. There has been no significant change from the prior study. NM/NM pul perfusion IMPRESSION: Pulmonary embolism is absent. Electronically signed by: Armand Maldonado MD 05/30/2025 02:39 PM EDT
[2025-05-30 10:06] VITALS: BP 141/94; BP 172/110; PULSE 110; PULSE 95; RESP 24; TEMP 37.1; O2SAT 95; O2SAT 98; BMI 30.1
--- NOTE | 2025-05-30 10:06 | ECG_ITS ---
Test Reason : CHEST PAIN Blood Pressure : */* mmHG Vent. Rate : 96 BPM Atrial Rate : 96 BPM P-R Int : 108 ms QRS Dur : 94 ms QT Int : 396 ms P-R-T Axes : 5 23 34 degrees QTcB Int : 500 ms Sinus rhythm with short NC Minimal voltage criteria for LVH, may be normal variant ( [place] product ) Prolonged QT Abnormal ECG When compared with ECG of 19-Jul-2024 10:24, QT has lengthened Referred By: Generic ED Physician Electronically Signed By: GAVIOTA HOPPER
--- NOTE | 2025-05-30 10:18 | ED.GENADULT ---
HPI - General Adult General Chief complaint: Chest Pain Stated complaint: CP, SI, Drug use Time Seen by Provider: 05/30/25 10:04 Source: patient and EMS Mode of arrival: EMS Limitations: no limitations History of Present Illness ED Provider: YORDAN Lora HPI narrative: This is a 54 year old female past medical history significant for substance abuse, DM, PTSD, major depression, cocaine use disorder, abnormal uterine bleeding, UTI, kidney stones, obesity, history of DVT on Eliquis however non med compliant presenting to the emergency department with complaints of chest pain ( substernal nonradiating) , shortness of breath status post using 400 dollars worth of cocaine over the past 3 days. She tells me she is suicidal and feels like ending her life because as of recently she is homeless. She tells me she is very depressed. She use all this cocaine in hopes for ?my heart to stop. Denies fevers, chills, nausea, vomiting, abdominal pain, headache, vision changes, dizziness and weakness. Related Data Home Medications ?Medication ?Instructions ?Recorded ?Confirmed apixaban 5 mg tablet (Eliquis) 5 mg PO BID 08/25/20 04/22/25 atorvastatin 40 mg tablet 1 tab PO DAILY 06/07/22 04/22/25 losartan 100 mg tablet 100 mg PO DAILY 06/07/22 04/22/25 metformin 500 mg tablet,extended 1,000 mg PO BID 05/11/23 04/22/25 release 24 hr amlodipine 2.5 mg tablet 10 mg PO DAILY 05/28/24 04/22/25 insulin lispro 100 unit/mL 8 - 16 sliding scale dose subcut 05/28/24 04/22/25 subcutaneous pen TIDAC levothyroxine 25 mcg tablet 25 mcg PO DAILY@0600 05/28/24 07/17/24 famotidine 10 mg tablet 10 mg PO BID 06/13/24 04/22/25 acetaminophen 500 mg tablet 1,000 mg PO Q8H PRN moderate pain 04/22/25 04/22/25 atomoxetine 18 mg capsule 18 mg PO QAM 04/22/25 04/22/25 bisacodyl 5 mg tablet,delayed 5 mg PO DAILY PRN constipation 04/22/25 04/22/25 release clonidine HCl 0.1 mg tablet 0.1 mg PO TID PRN Anxiety 04/22/25 04/22/25 doxepin 25 mg capsule 25 mg PO BEDTIME PRN Insomnia 04/22/25 04/22/25 fluconazole 150 mg tablet 150 mg PO WE 04/22/25 04/22/25 insulin degludec 100 unit/mL (3 26 unit subcut DAILY 04/22/25 04/22/25 mL) subcutaneous pen (Tresiba FlexTouch U-100 insulin) methocarbamol 750 mg tablet 750 - 1,500 mg PO TID PRN muscle 04/22/25 04/22/25 spasm prazosin 1 mg capsule 1 mg PO BEDTIME 04/22/25 04/22/25 sertraline 25 mg tablet 25 mg PO QAM 04/22/25 04/22/25 Previous Rx's ?Medication ?Instructions ?Recorded albuterol sulfate 90 mcg/actuation 2 puff inhalation RQ4H PRN 07/25/22 aerosol inhaler (Ventolin HFA) wheezing #0 grams epinephrine 0.3 mg/0.3 mL 0.3 mg (0.3 mL) IM Q10M PRN 12/10/24 injection, auto-injector anaphylaxis #2 ea Allergies Allergy/AdvReac Type Severity Reaction Status Date / Time Iodinated Contrast Media (IV Allergy Severe THROAT Verified 05/30/25 10:47 CONTRAST) CLOSING tomato (TOMATO) Allergy Severe Anaphylaxis Verified 05/30/25 11:22 lithium (LITHIUM) Allergy Intermediate AGGRESSION, Verified 05/30/25 10:47 stiffened up & throat closing (moderate to severe) asparagus (ASPARAGUS) Allergy Mild Rash Verified 05/30/25 11:22 fluoxetine (FLUOXETINE) Allergy Mild ITCHING, Verified 05/30/25 10:47 Suicidal risperidone (From RISPERDAL) Allergy Mild ITCHING Verified 05/30/25 10:47 divalproex sodium (From Allergy Unknown UNKNOWN, Verified 05/30/25 10:47 DEPAKOTE) stiffened up, locked jaw lisinopril (LISINOPRIL) Allergy Unknown COUGH Verified 05/30/25 10:47 olanzapine Allergy Unknown can't Verified 05/30/25 10:47 recall if hives or increased pollen extracts (POLLEN) Allergy Unknown unknown Verified 05/30/25 10:47 quetiapine (From SEROQUEL) AdvReac Intermediate OVERSEDATIO Verified 05/30/25 10:47 N TOMATO Allergy Severe Anaphylaxis Uncoded 05/30/25 11:22 BROCCOLI Allergy Mild Rash Uncoded 05/30/25 11:22 GREEN CHEUNG Allergy Mild Rash Uncoded 05/30/25 11:22 FUMARATE Allergy Unknown Unknown Uncoded 05/26/25 12:03 Review of Systems Review of Systems: Yes all other systems are reviewed and are negative PMFSH Past Medical History Attestation statement: The following information was validated with the patient. Source: old records reviewed and nursing notes reviewed Medical History Multiple sclerosis exacerbation Excoriation (skin-picking) disorder Back pain GERD (gastroesophageal reflux disease) Peripheral neuropathy PTSD (post-traumatic stress disorder) Mood disorder Elevated cholesterol Fibromyalgia Chronic back pain DDD (degenerative disc disease) Ovarian cyst Kidney stone Normal colonoscopy Lesion of bladder Suicide attempt Depression IBS (irritable bowel syndrome) Obesity (BMI 30-39.9) Endometriosis History of pulmonary embolus (PE) History of DVT (deep vein thrombosis) Diabetes mellitus Asthma HTN (hypertension) Anxiety Multiple sclerosis Surgical History History of lithotripsy History of cystoscopy S/P endometrial ablation H/O neck surgery Hx of dilation and curettage Hx of tubal ligation Hx of appendectomy Hx of cholecystectomy Family History Family History Mother Rheumatoid arteritis COPD (chronic obstructive pulmonary disease) Father HTN (hypertension) Diabetes mellitus Social History Social History Household Members: None Housing: Apartment Do you presently have visiting nurse or other home services: No Alcohol intake: current Alcohol intake frequency: holidays/special occasions only Comment: on 5 min checks for safety after episode today Patient Tobacco Use Status: Current everyday Tobacco user Tobacco use type: Cigarette Cigarette Packs Per Day: 1 Cigarettes Per Day: 20.0 Years Smoked: 39 e-Cigarette/Vaping Use: Currently Using Second Hand Smoke Exposure: No Substance Use Type: Marijuana Advance Directives: Yes Advance Directives on File: Yes Advance Directives Date on File: 05/18/23 Do you have a plan to hurt others: No Plan service: No Sexual orientation: Straight/Heterosexual Gender identity: Female Physical Exam ED Exam Exam: Appearance: Alert.? Oriented X3.? No acute distress.? Patient diaphoretic and appears uncomfortable. Head: Normocephalic, atraumatic, no step-offs or deformities Eyes: Pupils equal, round and reactive to light.? ENT: Pharynx normal.? Neck: Normal inspection.? Neck supple.? CVS: Normal heart rate and rhythm.? Pulses normal.? Respiratory: No respiratory distress.? Breath sounds normal.? Abdomen: Soft and nontender.? Skin: Skin warm and dry.? Normal skin color.? Normal skin turgor.?+ Intertrigo noted in inguinal folds Extremities: No lower extremity edema.? No calf ttp. 5/5 strength to bilateral upper and lower extremities Neuro: Oriented X 3.? No motor deficit.? No sensory deficit. CN 2-12 intact Vital Signs: Vital Signs - 24 hr 05/30/25 10:06 05/30/25 11:43 Temperature 98.7 F 97.6 F Pulse Rate 95 96 Respiratory Rate 24 H 13 Blood Pressure 141/94 H 146/81 H Pulse Oximetry 98 95 Oxygen Delivery Method Room Air Room Air BMI result Body Mass Index 30.1 vss Const General: cooperative Course Reevaluation(s) Reevaluation #1: Patient's CBC w. leukocytosis and slight shift. Chemistry slight low sodium and slight elevation in BUN & Cr IV hydration ordered. Glucose 503, IVF ordered and 10 units of rapid acting insulin ordered. Trop 12.4 EKG non ischemic. Urine dirty high epithelial cells will try to obtain a new one. Salicylates and acetaminophen negative. Ethanol negative. Utox + for cocaine. Time: 11:13 Reevaluation #2: CPK elevated reports feeling overall unwell and muscle aches but attributed that to walking for 3 days straight since she is homeless. Time: 12:01 Reevaluation #3: Patient with allergy to contrast dye therefore V/Q scan will be done to rule out PE. Patient's history and physical exam concerning for this as she has a history of and she is non med compliant on blood thinners. Plan is for hospital admission. Time: 13:19 Additional Reevaluation(s): Patient did report suicidal ideation, will hold on care consult as this patient requires inpatient hospitalization for medical issues. Care team can be consulted from the floor. She is not medically cleared for consult at this time. Plan hospital admission, V/Q scan pending to rule out PE. Medications Administered Discontinued Medications Generic Name Dose Route Start Last Admin Trade Name Lam PRN Reason Stop Dose Admin Ceftriaxone Sodium 1 gm 05/30/25 12:01 05/30/25 12:59 Ceftriaxone Sodium 1 Gm Vial IVPUSH 05/30/25 12:02 1 gm ONCE ONE Administration Sodium Chloride 1,000 mls @ 999 mls/hr 05/30/25 11:45 05/30/25 12:59 Ns IV 05/30/25 12:45 Infused .Q1H1M ISI Infusion Sodium Chloride 1,000 mls @ 999 mls/hr 05/30/25 12:45 05/30/25 12:59 Ns IV 05/30/25 13:45 999 mls/hr .Q1H1M ISI Administration Insulin Human Lispro 10 unit 05/30/25 11:37 05/30/25 11:57 Insulin Lispro 100 Unit/Ml 3 Ml Vial SUBCUT 05/30/25 11:38 10 unit ONCE ONE Administration Morphine Sulfate 2 mg 05/30/25 10:14 05/30/25 11:15 Morphine Sulfate 2 Mg/Ml Cartridge IVPUSH 05/30/25 10:15 2 mg ONCE ONE Administration Protocol Nystatin 1 appl 05/30/25 10:54 05/30/25 11:16 Nystatin Powder 15 Gm Bottle TOPICAL 05/30/25 10:55 1 appl ONCE ONE Administration Protocol Ondansetron HCl 4 mg 05/30/25 10:14 05/30/25 11:15 Ondansetron Hcl 4 Mg/2 Ml Vial IVPUSH 05/30/25 10:15 4 mg ONCE ONE Administration Medical Decision Making Medical Decision Making [facility] Narrative: 1015 54-year-old female presents with chest pain, shortness of breath status post smoking 400 dollars worth of cocaine over the past 3 days. In hopes of killing herself. Physical exam patient appears uncomfortable and tearful. Intertrigo noted in inguinal folds History and physical exam concerning for cocaine induced angina will rule out STEMI/NSTEMI. Will also rule out pulmonary embolism as patient has a history of and she is non med compliant. Will obtain a RUVALCABA to see what other substances are on board and see if alcohol is on board. Will also rule out electrolyte abnormalities and anemia. Plan labs, imaging, EKG Differential Diagnosis Differential Diagnoses: The differential diagnosis associated with the presentation includes Admission/Observation Consideration of admission/observation: Escalation of care including admission/observation considered Lab Data MDM Lab Attestation statement: I reviewed the patient's lab results. 05/30/25 11:09 05/30/25 11:09 Labs: Lab Results 05/30/25 05/30/25 05/30/25 Range/Units 10:33 11:09 12:00 WBC 14.2 H (4.8-10.8) X10*3/uL RBC 4.41 (4.20-5.50) X10*6/uL Hgb 13.2 (12.0-16.0) g/dl Hct 36.7 L (37.0-47.0) % MCV 83.2 (80.0-98.0) fL MCH 29.9 (27.0-33.0) pg MCHC 36.0 H (31.0-35.0) g/dl RDW 12.6 (11.0-16.0) % Plt Count 255 (160-400) X10*3/uL MPV 10.1 (9.4-12.3) fL Immature Gran % (Auto) 0.5 H (0.0-0.4) % Neut % (Auto) 77.8 H (45-73) % Lymph % (Auto) 15.5 L (20-40) % Woods % (Auto) 5.3 (2-11) % Eos % (Auto) 0.4 (0-4) % Baso % (Auto) 0.5 (0-2) % Lymph # (Auto) 2.2 (1.2-4.9) X10*3/uL Woods # (Auto) 0.8 (0.1-1.2) X10*3/uL Eos # (Auto) 0.1 (0.0-0.4) X10*3/uL Baso # (Auto) 0.1 (0.0-0.2) X10*3/uL Abs Immat Gran (auto) 0.07 H (0.00-0.03) X10*3/uL Absolute Neuts (auto) 11.0 H (2.0-8.3) x10*3/uL Absolute Nucleated RBC 0.000 (0.0-0.012) X10*3/uL Nucleated RBC % (auto) 0.0 (0.0-0.2) /100WBC PT 12.0 (10.9-12.4) SEC INR 1.0 (0.9-1.1) D-Dimer High Sensitivty 271 NG/ML VBG pH (7.32-7.43) VBG pCO2 mmHg VBG pO2 mmHg VBG HCO3 (22-26) mmol/L VBG O2 Saturation % VBG Base Excess mmol/L Sodium 131 L (135-145) mmol/L Potassium 3.7 (3.3-5.1) mmol/L Chloride 99 (96-108) mmol/L Carbon Dioxide 23 (22-29) mmol/L Anion Gap 13 (12-20) BUN 25 H (9-16) mg/dL Creatinine 1.07 (0.5-1.4) mg/dL Estim Creat Clear Calc 58.1 Estimated GFR 54 Random Glucose 503 H* (60-115) mg/dL Calcium 8.8 (8.4-10.2) mg/dL Magnesium 1.8 (1.6-2.6) mg/dL Total Bilirubin 1.0 (0.0-1.0) mg/dL AST 90 H (5-31) U/L ALT 46 H (0-31) U/L Alkaline Phosphatase 90 (39-117) U/L Total Creatine Kinase 3627 H (26-140) U/L Troponin I High Sens 12.4 (<3.5-17.0) ng/L Total Protein 7.3 (6.5-8.0) g/dL Albumin 4.4 (3.5-5.0) g/dL Beta-Hydroxybutyrate 1.93 H (0.02-0.27) mmol/L Urine Color Yellow Urine Appearance Cloudy Urine pH 5.0 (5.0-9.0) Ur Specific [place] >= 1.030 H (1.005-1.025) Urine Protein 100 (2+) H (Neg-Trace) mg/dL Urine Glucose (UA) >=1000 H (Negative) mg/dL Urine Ketones 15 (Negative) mg/dL Urine Blood Moderate (2+) H (Negative) Urine Nitrite Negative (Negative) Ur Leukocyte Esterase Negative (Negative) Urine RBC 3-5 H (0-2) /HPF Urine WBC 0-5 (0-5) /HPF Ur Squamous Epith Cells 11-20 (0-2) /HPF Urine Bacteria 2+ (None Seen) Hyaline Casts 6-10 (0-2) /LPF Granular Casts Present Urine Yeast Present Urine Test NEGATIVE (NEGATIVE) Salicylates < 5.0 L (15-30) mg/dL Urine Opiates Screen Not Detected (Not Detect) Ur Buprenorphine Scrn Not Detected (Not Detect) ng/mL Ur Oxycodone Screen Not Detected (Not Detect) ng/mL Urine Methadone Screen Not Detected (Not Detect) ng/mL Urine Fentanyl Screen Not Detected (Not Detect) Acetaminophen < 3 (<30) mcg/mL Ur Barbiturates Screen Not Detected (Not Detect) Ur Phencyclidine Scrn Not Detected (Not Detect) Ur Amphetamines Screen Not Detected (Not Detect) U Benzodiazepines Scrn Not Detected (Not Detect) Urine Cocaine Screen POSITIVE H (Not Detect) U Marijuana (THC) Screen Not Detected (Not Detect) Ethyl Alcohol < 10 mg/dL 05/30/25 Range/Units 12:15 WBC (4.8-10.8) X10*3/uL RBC (4.20-5.50) X10*6/uL Hgb (12.0-16.0) g/dl Hct (37.0-47.0) % MCV (80.0-98.0) fL MCH (27.0-33.0) pg MCHC (31.0-35.0) g/dl RDW (11.0-16.0) % Plt Count (160-400) X10*3/uL MPV (9.4-12.3) fL Immature Gran % (Auto) (0.0-0.4) % Neut % (Auto) (45-73) % Lymph % (Auto) (20-40) % Woods % (Auto) (2-11) % Eos % (Auto) (0-4) % Baso % (Auto) (0-2) % Lymph # (Auto) (1.2-4.9) X10*3/uL Woods # (Auto) (0.1-1.2) X10*3/uL Eos # (Auto) (0.0-0.4) X10*3/uL Baso # (Auto) (0.0-0.2) X10*3/uL Abs Immat Gran (auto) (0.00-0.03) X10*3/uL Absolute Neuts (auto) (2.0-8.3) x10*3/uL Absolute Nucleated RBC (0.0-0.012) X10*3/uL Nucleated RBC % (auto) (0.0-0.2) /100WBC PT (10.9-12.4) SEC INR (0.9-1.1) D-Dimer High Sensitivty NG/ML VBG pH 7.39 (7.32-7.43) VBG pCO2 30 mmHg VBG pO2 101 mmHg VBG HCO3 19 L (22-26) mmol/L VBG O2 Saturation 99.0 % VBG Base Excess -4.4 mmol/L Sodium (135-145) mmol/L Potassium (3.3-5.1) mmol/L Chloride (96-108) mmol/L Carbon Dioxide (22-29) mmol/L Anion Gap (12-20) BUN (9-16) mg/dL Creatinine (0.5-1.4) mg/dL Estim Creat Clear Calc Estimated GFR Random Glucose (60-115) mg/dL Calcium (8.4-10.2) mg/dL Magnesium (1.6-2.6) mg/dL Total Bilirubin (0.0-1.0) mg/dL AST (5-31) U/L ALT (0-31) U/L Alkaline Phosphatase (39-117) U/L Total Creatine Kinase (26-140) U/L Troponin I High Sens (<3.5-17.0) ng/L Total Protein (6.5-8.0) g/dL Albumin (3.5-5.0) g/dL Beta-Hydroxybutyrate (0.02-0.27) mmol/L Urine Color Urine Appearance Urine pH (5.0-9.0) Ur Specific [place] (1.005-1.025) Urine Protein (Neg-Trace) mg/dL Urine Glucose (UA) (Negative) mg/dL Urine Ketones (Negative) mg/dL Urine Blood (Negative) Urine Nitrite (Negative) Ur Leukocyte Esterase (Negative) Urine RBC (0-2) /HPF Urine WBC (0-5) /HPF Ur Squamous Epith Cells (0-2) /HPF Urine Bacteria (None Seen) Hyaline Casts (0-2) /LPF Granular Casts Urine Yeast Urine Test (NEGATIVE) Salicylates (15-30) mg/dL Urine Opiates Screen (Not Detect) Ur Buprenorphine Scrn (Not Detect) ng/mL Ur Oxycodone Screen (Not Detect) ng/mL Urine Methadone Screen (Not Detect) ng/mL Urine Fentanyl Screen (Not Detect) Acetaminophen (<30) mcg/mL Ur Barbiturates Screen (Not Detect) Ur Phencyclidine Scrn (Not Detect) Ur Amphetamines Screen (Not Detect) U Benzodiazepines Scrn (Not Detect) Urine Cocaine Screen (Not Detect) U Marijuana (THC) Screen (Not Detect) Ethyl Alcohol mg/dL Independent Interpretation I performed an independent interpretation of an: EKG (Sinus rhythm with short SC Minimal voltage criteria for LVH, may be normal variant ( [place] product ) Prolonged QT Abnormal ECG When compared with ECG of 19-Jul-2024 10:24, SC interval has decreased QT has lengthened ), Plain X-Ray (no acute findings- interpreted by me final read pending ) and Vq/Perfusion Scan (PENDING ) Interpretation: XR/XR chest 1V IMPRESSION: No active pulmonary disease. Radiology Impression Discussion of test interpretation with radiology: I have reviewed the radiologist's reading. Independent Historian Clinical information obtained from an independent historian. History obtained from or confirmed by: EMS External Record Review External record reviewed: Inpatient record, Office record, Outpatient record, Prior outpatient labs, Prior outpatient radiology, Primary care record and Outside ED record Prescription Management I considered prescription management with: Pain Medication and Antibiotic Chronic Conditions Patient?s care impacted by: Hypertension and Other (Diabetes, polysusbtance, mood do ) Social Determinants Patient?s care significantly limited by Social Determinants of Health including: Inadequate housing, Low income, Alcoholism and drug addiction in family, Problems related to primary support group, Unemployment, Problems related to employment and Other Social Determinant of Health Critical Care Time Critical Care Time Critical Care Time: Yes Total Critical Care Time: 35 Attestation: I attest to this time spent taking care of the patient, obtaining history, physical, reviewing labs, imaging, treatment of patients condition +/- specialist/hospitalist consult +/- procedure Discharge Plan Discharge Clinical Impression: Cocaine abuse, Rhabdomyolysis, YANY (acute kidney injury), UTI (urinary tract infection), Chest pain Patient Disposition: Admitted As Inpatient
[2025-05-30 10:48] LABS: Appearance Urine Cloudy; Glucose Urine UA >=1000 mg/dL (Negative); PH 5.0 (5.0-9.0); Specific Gravity - Urine >= 1.030 (1.005-1.025); UMIC TRIGGER UACC YES
[2025-05-30 10:50] LABS: UPreg QC Valid YES
[2025-05-30 11:03] LABS: Cannabinoid Screen Urine Not Detected (Not Detect)
[2025-05-30 11:17] LABS: MANUAL DIFF FLAG NO
--- NOTE | 2025-05-30 11:20 | PC.NURSE ---
Nystain applied to left groin and left under abdomen for fungal rash
[2025-05-30 11:21] LABS: Hematocrit 36.7 % (37.0-47.0); Hemoglobin 13.2 g/dl (12.0-16.0); Imm Gran Abs Auto 0.07 X10*3/uL (0.00-0.03); Imm Gran Pct Auto 0.5 % (0.0-0.4); Lymphocytes Absolute Auto 2.2 X10*3/uL (1.2-4.9); Mean Corpuscular HGB Conc 36.0 g/dl (31.0-35.0); Mean Corpuscular Hemoglobin 29.9 pg (27.0-33.0); Mean Corpuscular Volume 83.2 fL (80.0-98.0); NRBC Abs Auto 0.000 X10*3/uL (0.0-0.012); NRBC Pct Auto 0.0 /100WBC (0.0-0.2); Platelet Count 255 X10*3/uL (160-400); Red Blood Count 4.41 X10*6/uL (4.20-5.50); White Blood Count 14.2 X10*3/uL (4.8-10.8)
--- NOTE | 2025-05-30 11:27 | PC.NURSE ---
Spoke to Yolanda in dietary to make sure they are aware of pt's food allergies as one of them is anaphylaxis (tomato, brocculi, green beans, tomatoes).
[2025-05-30 11:29] LABS: INTERNATIONAL NORM RATIO 1.0 (0.9-1.1); Prothrombin Time 12.0 SEC (10.9-12.4)
--- OUTSIDE RECORDS SUMMARY | 2025-05-30 11:33 | XMS_ITS | Encounter Summary ---
Author Organization [employer] Address [address] [facility] [address] [place] [address] Care Team Providers Care Ham Boner Name Role Phone Tyesha Rogers MD Primary Care Provider [phone] Encounter Details Date Type Department Care Team (Late st Contact Info) Description 04/23/2025 Orders Only [facility] MEDICINE [address] [place], [place] [phone] Tyesha Rogers MD [address] [place], [place] [phone] Social History Tobacco Use Types Packs/Day Years [...] Description 06/02/2025 9:00 AM EDT Office Visit [facility] MEDICINE [address] [place] [address] Tyesha Rogers MD [address] [place] [address] 06/24/2025 9:00 AM EDT Office Visit [facility] OPTOMETRY [address] [place] [address] RafKatharine fu, OD [address] [place] [address] documented as of this encounter Procedures Procedure Name Priority Date/Time Associated Diagnosis Comments GLUCOSE, WHOLE BLOOD Routine 04/23/2025 11:53 AM EDT GLUCOSE, WHOLE BLOOD Routine 04/23/2025 11:21 AM EDT GLUCOSE, WHOLE BLOOD Routine 04/23/2025 10:52 AM EDT documented in this encounter Results * (ABNORMAL) Glucose, Whole Blood (04/23/2025 11:53 AM EDT) Glucose, Whole Blood 378() 60 - 115 mg/dL [facility] Comment:METER #: [id number] 04/23/2025 11:5 3 AM EDT 04/23/2025 11:57 AM EDT us Generic External Data Provider LAB BLOOD ORDERAB LES Final Result Performing Organization Address [facility] Co de Phone Number [facility] [address] [place] [phone] * (ABNORMAL) Glucose, Whole Blood (04/23/2025 11:21 AM EDT) Glucose, Whole Blood 359(HH) 60 - 115 mg/dL [facility] Comment:METER #: [id number] 7 04/23/2025 11:2 1 AM EDT 04/23/2025 11:24 AM EDT us Generic External Data Provider LAB BLOOD ORDERAB LES Final Result Performing Organization Address [facility] Co de Phone Number [facility] [address] [place] [phone] [phone] * (ABNORMAL) Glucose, Whole Blood (04/23/2025 10:52 AM EDT) Glucose, Whole Blood 371(HH) 60 - 115 mg/dL [facility] Comment:METER #: [id number] 7 04/23/2025 10:5 2 AM EDT 04/23/2025 10:55 AM EDT us Generic External Data Provider LAB BLOOD ORDERAB LES Final Result Performing Organization Address [facility] de Phone Number [facility] [address] [place] [phone] documented in this encounter Visit Diagnoses Not on filedocumented in this encounter Additional Health Concerns Assessment Noted Time PHQ-9 Depression Total Score: 14 12/31/2 025 1:25 PM EDT documented as of this encounter Care Teams Ham Boner Relationship Specialty Start Date End Date Tyesha Rogers MD [address] [place] [address] PCP - General Family Medicine 04/25/19 documented as of this encounter
--- OUTSIDE RECORDS SUMMARY | 2025-05-30 11:33 | XMS_ITS | Encounter Summary ---
Author Organization [employer] Address [address] [place] [address] [address] [place] [address] Care Team Providers Care Miller First Name Role Phone Tyesha Rogers MD Primary Care Provider [phone] Encounter Details Date Type Department Care Team (Late Contact Info) Description 08/11/2022 Orders Only [facility] PEDIATRICS [address] [place] [phone] Loren Oliva MD [address] [place] [address] Social History Tobacco Use Types Packs/Day Years [...] Description 06/02/2025 9:00 AM EDT Office Visit [facility] MEDICINE [address] [place] [address] Tyesha Rogers MD [address] [place] [address] 06/24/2025 9:00 AM EDT Office Visit [facility] OPTOMETRY [address] [place] [address] Katharine Carbone OD [address] [place], [place] [phone] documented as of this encounter Visit Diagnoses Not on filedocumented in this encounter Care Teams Miller First Relationship Specialty Start Date End Date Tyesha Rogers MD [address] [place] [address] [place] [phone] PCP - General Family Medicine 04/25/19 documented as of this encounter
--- OUTSIDE RECORDS SUMMARY | 2025-05-30 11:33 | XMS_ITS | Encounter Summary ---
Author Organization [employer] Address [address] [facility] [address] [place] [address] Care Team Providers Care Moss Picker Name Role Phone Tyesha Rogers MD Primary Care Provider [phone] Reason for Visit * Reason Onset Date Comments Order(s) 09/06/2023 Encounter Details Date Type Department Care Team ([facility] st Contact Info) Description 09/06/2023 Telephone [facility] MEDICINE [address] [place], [place] [phone] Tyesha Rogers MD [address] [place] [address] Order(s) Social History Tobacco Use Types Packs/Day [...] 9:17 AM EST Please disregard previous message, 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 * Telephone Encounter - Silvino Gilliland - 09/06/2023 2:15 PM EST Tc clement Pike working with [facility] requesting order for diagnostic mammogram and ultrasound bi lateral 09/08/23 at 1:00 pm. If any questions please contact Glendy at [phone] documented in this encounter Plan of Treatment Upcoming Encounters Date Type Department Care Team (Late st Contact Info) Description 06/02/2025 9:00 AM EDT Office Visit [facility] MEDICINE [address] [place] [address] Tyesha Rogers MD [address] [place] [address] 06/24/2025 9:00 AM EDT Office Visit [facility] OPTOMETRY [address] [place] [address] Katharine Carbone OD [address] [place] [address] documented as of this encounter Visit Diagnoses Not on filedocumented in this encounter Additional Health Concerns Assessment Noted Time PHQ-9 Depression Total Score: 21 023 9:42 AM EDT documented as of this encounter Care Teams Moss Picker Relationship Specialty Start Date End Date Tyesha Rogers MD [address] [place] [address] PCP - General Family Medicine 04/25/19 documented as of this encounter
--- OUTSIDE RECORDS SUMMARY | 2025-05-30 11:33 | XMS_ITS | Encounter Summary ---
Author Organization [employer] Address [address] [facility] 7t [place] [address] Care Team Providers Care Aircraft Magneto Mechanic Name Role Phone Tyesha Rogers MD Primary Care Provider [phone] Encounter Details Date Type Department Care Team (Late st Contact Info) Description 07/17/2023 Orders Only [facility] MEDICINE [address] [place], [place] [phone] Kinjal Ch MD [address] [place], [place] [phone] Social History Tobacco Use Types Packs/Day Years [...] 06/02/2025 9:00 AM EDT Office Visit [facility]INE [address] [place] [address] Tyesha Rogers MD [address] [place] [address] 06/24/2025 9:00 AM EDT Office Visit [facility] OPTOMETRY [address] [place] [address] Raf, Katharine, OD [address] [place] [address] documented as of this encounter Visit Diagnoses Not on filedocumented in this encounter Additional Health Concerns Assessment Noted Time PHQ-9 Depression Total Score: 21 023 9:42 AM EDT documented as of this encounter Care Teams Aircraft Magneto Mechanic Relationship Specialty Start Date End Date Tyesha Rogers MD [address] [place] [address] PCP - General Family Medicine 04/25/19 documented as of this encounter
--- OUTSIDE RECORDS SUMMARY | 2025-05-30 11:33 | XMS_ITS | Encounter Summary ---
Author Organization [employer] Address [address] [place] [id number] Care Team Providers Care Director Appointment Name Role Phone Tyesha Rogers MD Primary Care Provider [phone] Reason for Referral * Consultation (Routine) - Closed Specialty Diagnoses / Procedures Referred By Contac t Referred To Contact Pharmacy Diagnoses SBO (small bowel obstruction) (CMS/HCC) Tati Neri PharmD [address] [place] [address] Phone: tel: fax: Referral ID Status Reason Start Date Expiration Date V isits Requested Visits Authorized [id number] Closed Continuity of Care 12/07/2023 12/06/2024 1 1 Encounter Details Date Type Department Care Team (Late st Contact Info) Description 12/07/2023 Orders Only [facility] MEDICINE [address] [place], [place] [phone] Tati Neri PharmD [address] [place], [place] [phone] SBO (small bowel obstruction) (CMS/HCC) (Primary Dx) [...] Description 06/02/2025 9:00 AM EDT Office Visit [facility] MEDICINE [address] [place] [address] Tyesha Rogers MD [address] [place] [address] 06/24/2025 9:00 AM EDT Office Visit [facility] OPTOMETRY [address] [place] [address] Katharine Carbone, ZAHIDA [address] [place] [address] Scheduled Referrals Name Type Priority Associated Diagnoses [...] as of this encounter Care Teams Director Appointment Relationship Specialty Start Date End Date Tyesha Rogers MD [address] [place] [id number] PCP - General Family Medicine 04/25/19 documented as of this encounter
--- OUTSIDE RECORDS SUMMARY | 2025-05-30 11:33 | XMS_ITS | Encounter Summary ---
Author Organization [employer] Address [address] [facility] 7 [place] [address] Care Team Providers Care Maintenance Electrician Name Role Phone Tyesha Rogers MD Primary Care Provider [phone] Reason for Visit * Reason Onset Date Comments Call Back Request 05/01/2025 Encounter Details Date Type Department Care Team ([facility] st Contact Info) Description 05/01/[address] [facility] MEDICINE [address] [place], [place] [phone] Tyesha Rogers MD [address] [place] [address] Call Back Request Social History Tobacco Use [...] Office Visit [facility] MEDICINE [address] [place] [address] Tyesha Rogers MD [address] [place] [address] 06/24/2025 9:00 AM EDT Office Visit [facility] OPTOMETRY [address] [place] [address] Katharine Carbone, OD [address] [place] [address] documented as of this encounter Visit Diagnoses Not on filedocumented in this encounter Additional Health Concerns Assessment Noted Time PHQ-9 Depression Total Score: 14 025 1:25 PM EDT documented as of this encounter Care Teams Maintenance Electrician Relationship Specialty Start Date End Date Tyesha Rogers MD [address] [place] [address] PCP - General Family Medicine 04/25/19 documented as of this encounter
--- OUTSIDE RECORDS SUMMARY | 2025-05-30 11:33 | XMS_ITS | Encounter Summary ---
Author Organization [employer] Address [address] [facility] 7t [place] [address] Care Team Providers Care Transition Assistant Name Role Phone Tyesha Rogers MD Primary Care Provider [phone] Reason for Visit * Reason Comments [facility] Recovery Supports Encounter Details Date Type Department Care Team ([facility] st Contact Info) Description 05/26/2025 Patient Outreach [facility] MEDICINE [address] [place] [address] Esmer Molina Recovery Supports Social History Tobacco [...] with Emily today. Setting: in person at [facility] Recovery Wellness Goals worked on: Social Stability Action taken/next steps: Attended alcohol and drug free activity Additional comments: Esmer Molina documented in this encounter Plan of Treatment Upcoming Encounters Date Type Department Care Team (Late st Contact Info) Description 06/02/2025 9:00 AM EDT Office Visit [facility] MEDICINE [address] [place] [address] Tyesha Rogers MD [address] [place] [address] 06/24/2025 9:00 AM EDT Office Visit [facility] OPTOMETRY [address] [place] [address] Raf, Katharine, OD [address] [place] [address] documented as of this encounter Visit Diagnoses Not on filedocumented in this encounter Additional Health Concerns Assessment Noted Time PHQ-9 Depression Total Score: 14 025 1:25 PM EDT documented as of this encounter Care Teams Transition Assistant Relationship Specialty Start Date End Date Tyesha Rogers MD [address] [place] [address] PCP - General Family Medicine 04/25/19 documented as of this encounter
--- OUTSIDE RECORDS SUMMARY | 2025-05-30 11:33 | XMS_ITS ---
Author Organization [employer] Address [address] [place] [address] Care Team Providers Care Crime Scene Technician Name Role Phone Tyesha Rogers MD Primary Care Provider [phone] CHW Complex Status:Enrolled (Active) Start date:12/11/2024 Enrollment date:12/11/2024 Enrollment reason:ADT Feed Overview ED- Pt went to [facility] ED on 12/10/24. Case Team Name Relationship Phone Aminata York(Responsible Staff) Continued Care and Services Coordination
--- OUTSIDE RECORDS SUMMARY | 2025-05-30 11:33 | XMS_ITS ---
Author Organization [employer] Address [address] [place] [address] Care Team Providers Care Barn And Property Manager Name Role Phone Tyesha Rogers MD Primary Care Provider [phone] CM Complex Status:Enrolled (Active) Start date:12/11/2024 Enrollment date:12/31/2024 Enrollment reason:ADT Feed Overview ED- Pt went to [facility] ED on 12/10/24. Case Team Name Relationship Phone Angel Sanchez RN(Responsible Staff) Registered Katelin gomez [phone] Continued Care and Services Coordination
--- OUTSIDE RECORDS SUMMARY | 2025-05-30 11:33 | XMS_ITS | Encounter Summary ---
Author Organization [employer] [facility] Address [address] [place] [address] 7 [place] [address] Care Team Providers Care Direct Sales Professional Name Role Phone Tyesha Rogers MD Primary Care Provider [phone] Encounter Details Date Type Department Care Team (Late st Contact Info) Description 08/08/2022 Abstract [facility] MEDICINE [address] [place] [address] ProviderJhony MD Social History Tobacco Use Types [...] 06/02/2025 9:00 AM EDT Office Visit [facility] MEDICINE [address] [place] [address] Tyesha Rogers MD [address] [place] [address] 06/24/2025 9:00 AM EDT Office Visit [facility] OPTOMETRY [address] [place] [address] Katharine Carbone, OD [address] [place] [address] documented as of this encounter Visit Diagnoses Not on filedocumented in this encounter Care Teams Direct Sales Professional Relationship Specialty Start Date End Date Tyesha Rogers MD [address] [place] [address] PCP - General Family Medicine 04/25/19 documented as of this encounter
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
--- OUTSIDE RECORDS SUMMARY | 2025-05-30 11:33 | XMS_ITS | Encounter Summary ---
Author Organization [employer] Address 75 [facility] 7t [place] [address] Care Team Providers Care Tunnel Drier Operator Name Role Phone Tyesha Rogers MD Primary Care Provider [phone] Reason for Visit * Reason Comments Med Refill Encounter Details Date Type Department Care Team ([facility] st Contact Info) Description 01/19/[address] [facility] MED[facility]INE [address] [place], [place] [phone] Tyesha Rogers MD [address] [place], [place] [phone] Social History Tobacco Use Types Packs/Day Years [...] 06/02/2025 9:00 AM EDT Office [facility] [address] [place] [address] Tyesha Rogers MD [address] [place] [address] 06/24/2025 9:00 AM EDT Office Visit [facility] [address] [place] [address] Raf, Katharine, OD 230 [place] [address] documented as of this encounter Visit Diagnoses Not on filedocumented in this encounter Additional Health Concerns Assessment Noted Time PHQ-9 Depression Total Score: 14 025 1:25 PM EDT documented as of this encounter Care Teams Tunnel Drier Operator Relationship Specialty Start Date End Date Tyesha Rogers MD [address] [place] [address] PCP - General Family Medicine 04/25/19 documented as of this encounter
--- OUTSIDE RECORDS SUMMARY | 2025-05-30 11:33 | XMS_ITS | Encounter Summary ---
Author Organization [employer] Address 75 [facility] 7 [place] [address] Care Team Providers Care Office Agent Name Role Phone Tyesha Rogers MD Primary Care Provider [phone] Reason for Visit * Reason Onset Date Comments Durable Medical Equipment 09/06/2023 Encounter Details Date Type Department Care Team (Late st Contact Info) Description 09/06/2023 Telephone [facility] MEDICINE [address] [place], [place] [phone] Tyesha Rogers MD [address] [place] [address] Durable Medical Equipment Social History Tobacco Use [...] wheels or seat. Please contact Pt @ [phone] documented in this encounter Plan of Treatment Upcoming Encounters Date Type Department Care Team (Late st Contact Info) Description 06/02/2025 9:00 AM EDT Office Visit [facility] [address] [place] [address] Tyesha Rogers MD [address] [place] [address] 06/24/2025 9:00 AM EDT Office Visit [facility] OPTOMETRY [address] [place] [address] Katharine Carbone, ZAHIDA 230 [place] [address] documented as of this encounter Visit Diagnoses Not on filedocumented in this encounter Additional Health Concerns Assessment Noted Time PHQ-9 Depression Total Score: 21 023 9:42 AM EDT documented as of this encounter Care Teams Office Agent Relationship Specialty Start Date End Date Tyesha Rogers MD 230 [place] [address] PCP - General Family Medicine 04/25/19 documented as of this encounter
--- OUTSIDE RECORDS SUMMARY | 2025-05-30 11:33 | XMS_ITS | Encounter Summary ---
Author Organization [employer] Address 75 [facility] 7 [place] [address] Care Team Providers Care Inker And Opaquer Name Role Phone Tyesha Rogers MD Primary Care Provider [phone] Reason for Visit * Reason Onset Date Comments Nurse Triage 08/30/2023 Encounter Details Date Type Department Care Team ([facility] st Contact Info) Description 08/30/2023 Telephone [facility] MEDICINE 230 [place], [place] [phone] Tyesha Rogers MD 230 [place] [address] Nurse Triage Social History Tobacco Use Types [...] Call to Emily Tucker, reports currently with [facility] in home and [facility]. Pt reported CP and elevated BS. 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 Sent to team for ER status check [...] and stated is on her way to [facility]. * Telephone Encounter - Blanca Rashid [...] Description 06/02/2025 9:00 AM EDT Office Visit [facility] MEDICINE [address] [place] [address] Tyesha Rogers MD [address] [place] [address] 06/24/2025 9:00 AM EDT Office Visit [facility] OPTOMETRY [address] [place] [address] Raf, Katharine, OD [address] [place] [address] documented as of this encounter Visit Diagnoses Not on filedocumented in this encounter Additional Health Concerns Assessment Noted Time PHQ-9 Depression Total Score: 21 023 9:42 AM EDT documented as of this encounter Care Teams Inker And Opaquer Relationship Specialty Start Date End Date Tyesha Rogers MD [address] [place] [address] PCP - General Family Medicine 04/25/19 documented as of this encounter
--- OUTSIDE RECORDS SUMMARY | 2025-05-30 11:33 | XMS_ITS | Encounter Summary ---
Author Organization [employer] Address 75 [facility] 7t [place] [address] Care Team Providers Care Screen Printing Machine Operator Helper Name Role Phone Tyesha Rogers MD Primary Care Provider [phone] Encounter Details Date Type Department Care Team (Latest Contact Info) Description 05/28/2025 Travel Social History Tobacco Use Types Packs/Day [...] 9:00 AM EDT Office Visit [facility] MEDICINE 230 [place] [address] Tyesha Rogers MD 230 [place] [address] 06/24/2025 9:00 AM EDT Office Visit [facility] OPTOMETRY [address] [place] [address] Raf, Katharine, OD 230 [place] [address] documented as of this encounter Visit Diagnoses Not on filedocumented in this encounter Additional Health Concerns Assessment Noted Time PHQ-9 Depression Total Score: 14 025 1:25 PM EDT documented as of this encounter Care Teams Screen Printing Machine Operator Helper Relationship Specialty Start Date End Date Tyesha Rogers MD 230 [place] [address] PCP - General Family Medicine 04/25/19 documented as of this encounter
--- OUTSIDE RECORDS SUMMARY | 2025-05-30 11:33 | XMS_ITS | Encounter Summary ---
Author Organization [employer] Address 75 [facility] 7 [place] [address] Care Team Providers Care Lumber Cutter Name Role Phone Tyesha Rogers MD Primary Care Provider [phone] Reason for Visit * Reason Onset Date Comments Hospital Follow-up 05/07/2025 Encounter Details Date Type Department Care Team (Late st Contact Info) Description 05/07/2025 Telephone [facility] MEDICINE 230 [place], [place] [phone] Tyesha Rogers MD 230 [place] [address] Hospital Follow-up Social History Tobacco Use Types [...] from pt requesting a HDF appt. Hospital: [facility] Date of admission: 04/23/2025 Discharge date: 04/23/2025 Diagnosed: Fall twist of right ankle *Send message to [place] Clinical Care Coordinators Spoke to: Heather with [facility] Contact [phone] EXT [phone] documented in this encounter Plan of Treatment Upcoming Encounters Date Type Department Care Team (Late st Contact Info) Description 06/02/2025 9:00 AM EDT Office Visit [facility] MEDICINE [address] [place] [address] Tyesha Rogers MD [address] [place] [address] 06/24/2025 9:00 AM EDT Office Visit [facility] OPTOMETRY [address] [place] [address] Katharine Carbone, OD [address] [place] [address] documented as of this encounter Visit Diagnoses Not on filedocumented in this encounter Additional Health Concerns Assessment Noted Time PHQ-9 Depression Total Score: 14 025 1:25 PM EDT documented as of this encounter Care Teams Lumber Cutter Relationship Specialty Start Date End Date Tyesha Rogers MD 230 [place] [address] PCP - General Family Medicine 04/25/19 documented as of this encounter
--- OUTSIDE RECORDS SUMMARY | 2025-05-30 11:33 | XMS_ITS | Encounter Summary ---
Author Organization [employer] Address 75 [facility] 7t [place] [address] Care Team Providers Care Policyholder Information Clerk Name Role Phone Tyesha Rogers MD Primary Care Provider [phone] Reason for Visit * Reason Comments Med Refill Encounter Details Date Type Department Care Team ([facility] st Contact Info) Description 11/29/2023 Refill [facility] MED[facility]INE [address] [place], [place] [phone] Tyesha Rogers MD [address] [place], [place] [phone] Social History Tobacco Use Types Packs/Day Years [...] 06/02/2025 9:00 AM EDT Office Visit [facility] [address] [place] [address] Tyesha Rogers MD [address] [place] [address] 06/24/2025 9:00 AM EDT Office Visit [facility] OPTOMET[facility] [address] [place] [address] Raf, Katharine, OD [address] [place] [address] documented as of this encounter Visit Diagnoses Not on filedocumented in this encounter Additional Health Concerns Assessment Noted Time PHQ-9 Depression Total Score: 21 023 9:42 AM EDT documented as of this encounter Care Teams Policyholder Information Clerk Relationship Specialty Start Date End Date Tyesha Rogers MD [address] [place] [address] PCP - General Family Medicine 04/25/19 documented as of this encounter
--- OUTSIDE RECORDS SUMMARY | 2025-05-30 11:33 | XMS_ITS | Encounter Summary ---
Author Organization [employer] Address 75 [facility] 7t [place] [address] Care Team Providers Care Tank Farm Attendant Name Role Phone Tyesha Rogers MD Primary Care Provider [phone] Encounter Details Date Type Department Care Team (Late st Contact Info) Description 02/21/2025 Orders Only [facility] MEDICINE [address] [place], [place] [phone] Tyesha Rogers MD [address] [place], [place] [phone] Social History Tobacco Use Types Packs/Day Years [...] 06/02/2025 9:00 AM EDT Office Visit [facility] MEDICINE [address] [place] [address] Tyesha Rogers MD [address] [place] [address] 06/24/2025 9:00 AM EDT Office Visit [facility] OPTOMETRY [address] [place] [address] Raf, Katharine, OD [address] [place] [address] documented as of this encounter Visit Diagnoses Not on filedocumented in this encounter Additional Health Concerns Assessment Noted Time PHQ-9 Depression Total Score: 14 025 1:25 PM EDT documented as of this encounter Care Teams Tank Farm Attendant Relationship Specialty Start Date End Date Tyesha Rogers MD [address] [place] [address] PCP - General Family Medicine 04/25/19 documented as of this encounter
--- OUTSIDE RECORDS SUMMARY | 2025-05-30 11:33 | XMS_ITS | Encounter Summary ---
Author Organization [employer] Address 75 [facility] 7 [place] [address] Care Team Providers Care Acid Retort Operator Name Role Phone Tyesha Rogers MD Primary Care Provider [phone] Reason for Visit * Reason Onset Date Comments Appointment Request 01/13/2025 Encounter Details Date Type Department Care Team ([facility] st Contact Info) Description 01/13/2025 Telephone [facility] MEDICINE [address] [place], [place] [phone] Tyesha Rogers MD [address] [place], [place] [phone] Appointment Request Social History Tobacco Use Types [...] was cancelled to be rescheduled due to greeting card writer not finding availability please return call to pt to be scheduled. Callback number [phone] Appointment type - Follow Up Notes - F/U allergic reaction. Sent to ED at last appt. Provider - Tyesha Rogers [phone] documented in this encounter Plan of Treatment Upcoming Encounters Date Type Department Care Team (Late st Contact Info) Description 06/02/2025 9:00 AM EDT Office Visit [facility] MEDICINE [address] [place] [address] Tyesha Rogers MD [address] [place], [place] [phone] 06/24/2025 9:00 AM EDT Office Visit [facility] OPTOMETRY [address] [place] [address] Katharine Carbone, OD [address] [place] [address] documented as of this encounter Visit Diagnoses Not on filedocumented in this encounter Additional Health Concerns Assessment Noted Time PHQ-9 Depression Total Score: 14 025 1:25 PM EDT documented as of this encounter Care Teams Acid Retort Operator Relationship Specialty Start Date End Date Tyesha Rogers MD [address] [place] [address] PCP - General Family Medicine 04/25/19 documented as of this encounter
--- OUTSIDE RECORDS SUMMARY | 2025-05-30 11:33 | XMS_ITS | Encounter Summary ---
Author Organization [employer] Address 75 [facility] 7 [place] [address] Care Team Providers Care Maritime Officer Name Role Phone Tyesha Rogers MD Primary Care Provider [phone] Encounter Details Date Type Department Care Team (Late st Contact Info) Description 01/28/2025 Telephone [facility] MEDICINE [address] [place], [place] [phone] Mira Vanegas, PharmD [address] [place] [address] Social History Tobacco Use Types Packs/Day Years [...] Visit [facility] MEDICINE [address] [place] [address] Tyesha Rogers MD [address] [place] [address] 06/24/2025 9:00 AM EDT Office Visit [facility] OPTOMETRY [address] [place] [address] Raf, Katharine, OD [address] [place] [address] documented as of this encounter Visit Diagnoses Not on filedocumented in this encounter Additional Health Concerns Assessment Noted Time PHQ-9 Depression Total Score: 14 025 1:25 PM EDT documented as of this encounter Care Teams Maritime Officer Relationship Specialty Start Date End Date Tyesha Rogers MD [address] [place] [address] PCP - General Family Medicine 04/25/19 documented as of this encounter
--- OUTSIDE RECORDS SUMMARY | 2025-05-30 11:33 | XMS_ITS | Encounter Summary ---
Author Organization [email or web address] Address 75 [facility] 7t [place] [address] Care Team Providers Care Maker Up Folding Name Role Phone Tyesha Rogers MD Primary Care Provider [phone] Encounter Details Date Type Department Care Team (Late st Contact Info) Description 12/10/2024 Orders Only [facility] MEDICINE [address] [place], [place] [phone] Tyesha Rogers MD [address] [place], [place] [phone] Neuropathy Social History Tobacco Use Types Packs/Day [...] Visit [facility] MEDICINE [address] [place] [address] Tyesha Rgoers MD [address] [place] [address] 06/24/2025 9:00 AM EDT Office Visit [facility] OPTOMETRY [address] [place] [address] Raf, Katharine, OD [address] [place] [address] documented as of this encounter Visit Diagnoses Diagnosis Neuropathy Mononeuritis of unspecified site documented in this encounter Additional Health Concerns Assessment Noted Time PHQ-9 Depression Total Score: 15 025 11:52 AM EST documented as of this encounter Care Teams Maker Up Folding Relationship Specialty Start Date End Date Tyesha Rogers MD [address] [place] [address] PCP - General Family Medicine 04/25/19 documented as of this encounter
--- OUTSIDE RECORDS SUMMARY | 2025-05-30 11:33 | XMS_ITS | Encounter Summary ---
Author Organization [employer] Address 75 [facility] 7t [place] [address] Care Team Providers Care Maintenance Of Way Foreman Name Role Phone Tyesha Rogers MD Primary Care Provider [phone] Encounter Details Date Type Department Care Team ([facility] st Contact Info) Description 11/01/2023 Telephone [facility] MEDICINE 230 [place], [place] [phone] Tyesha Rogers MD [address] [place], [place] [phone] Social History Tobacco Use Types Packs/Day Years [...] 9:00 AM EDT Office Visit [facility] MEDICINE [address] [place] [address] Tyesha Rogers MD [address] [place] [address] 06/24/2025 9:00 AM EDT Office Visit [facility] OPTOMETRY [address] [place], [place] [phone] Raf, Katharine, OD [address] [place] [address] documented as of this encounter Visit Diagnoses Not on filedocumented in this encounter Additional Health Concerns Assessment Noted Time PHQ-9 Depression Total Score: 21 023 9:42 AM EDT documented as of this encounter Care Teams Maintenance Of Way Foreman Relationship Specialty Start Date End Date Tyesha Rogers MD [address] [place], [place] [phone] PCP - General Family Medicine 04/25/19 documented as of this encounter
--- OUTSIDE RECORDS SUMMARY | 2025-05-30 11:33 | XMS_ITS | Encounter Summary ---
Author Organization [employer] Address 75 [facility] 7t [place] [address] Care Team Providers Care Sap Portal Developer Name Role Phone Tyesha Rogers MD Primary Care Provider [phone] Encounter Details Date Type Department Care Team [...] Visit [facility] MEDICINE [address] [place] [address] Tyesha Rogers MD [address] [place] [address] 06/24/2025 9:00 AM EDT Office Visit [facility] OPTOMETRY [address] [place] [address] Raf, Katharine, OD [address] [place] [address] documented as of this encounter Procedures Procedure Name Priority Date/Time Associated Diagnosis Comments GLUCOSE, WHOLE BLOOD Routine 05/26/2025 5:15 PM EDT GLUCOSE, WHOLE BLOOD Routine 05/26/2025 3:34 PM EDT URINALYSIS, COMPLETE, WITH REFLEX TO CULTURE Routine 05/26/2025 3:29 PM EDT documented in this encounter Results * (ABNORMAL) Glucose, Whole Blood (05/26/2025 5:15 PM EDT) Glucose, Whole Blood 356(HH) 60 - 115 mg/dL [facility] Comment:METER #: [id number] 6 05/26/2025 5:15 PM EDT 05/26/2025 5:17 PM EDT us Generic External Data Provider LAB BLOOD ORDERAB LES Final Result Performing Organization Address City/[facility]/ZIP Co de Phone Number [facility] [address] [place] [address] [phone] * (ABNORMAL) Glucose, Whole Blood (05/26/2025 3:34 PM EDT) Glucose, Whole Blood 467(HH) 60 - 115 mg/dL [facility] Comment:METER #: [id number] 6 05/26/2025 3:34 PM EDT 05/26/2025 3:39 PM EDT Generic External Data Provider LAB BLOOD ORDERAB LES Final Result Performing Organization Address [facility] Co de Phone Number [facility] [address] [place] [phone] * (ABNORMAL) Urinalysis, Complete, with Reflex to Culture (05/26/2025 3:29 PM EDT) Color Urine Yellow [facility] Appearance Urine Clear [facility] PH 5.5 5.0 - 9.0 [facility] Glucose Urine UA >=1000(A) Negative mg/dL [facility] Urine Blood Negative Negative [facility] Specific [place] - Urine >=1.030(H) 1.005 - 1.025 [facility] Urine Protein Negative Neg-Trace mg/dL [facility] Urine Ketones Negative Negative mg/dL [facility] Nitrite Urine Negative Negative [facility] Leukocyte Esterase Urine Negative Negative [facility] RBC Urine 0-2 0 - 2 /HPF [facility] Urine WBC 0-5 0 - 5 /HPF [facility] Urine Squamous Epithelial Cell 3-5 0 - 2 /HPF [facility] Urine Bacteria 1+ None Seen [facility] Hyaline Casts, Urine 3-5 0 - 2 /LPF [facility] Urine Yeast Present [facility] 05/26/2025 3:29 PM EDT 05/26/2025 3:47 PM EDT Narrative [facility] - 05/26/2025 4:15 PM EDT [id number], [employer] us Generic External Data Provider LAB URINE ORDERAB LES Final Result Performing Organization Address City/State/[facility] Co de Phone Number [facility] [address] [place] [address] [phone] documented in this encounter Visit Diagnoses Not on filedocumented in this encounter Additional Health Concerns Assessment Noted Time PHQ-9 Depression Total Score: 14 12/31/ 025 1:25 PM EDT documented as of this encounter Care Teams Sap Portal Developer Relationship Specialty Start Date End Date Tyesha Rogers MD [address] [place] [address] PCP - General Family Medicine 04/25/19 documented as of this encounter
--- OUTSIDE RECORDS SUMMARY | 2025-05-30 11:33 | XMS_ITS | Encounter Summary ---
Author Organization [employer] Address 75 [facility] 7t [place] [address] Care Team Providers Care Early Childhood Associate Teacher Name Role Phone Tyesha Rogers MD Primary Care Provider [phone] Reason for Visit * Reason Onset Date Comments Nurse Triage 05/26/2025 Encounter Details Date Type Department Care Team ([facility] st Contact Info) Description 05/26/2025 Telephone [facility] MEDICINE [address] [place] [address] Chung Gu, RN [address] [place] [address] Nurse Triage Social History Tobacco Use Types [...] into CRS after also having gone to [facility] and [facility] (no appointments available until afternoon) complaining of intense abdominal pain, nausea, chills x 3 days and no BM for 3 days, is passing gas. Pt has history of surgery for small bowel obstruction 1 year ago. Pt requesting ambulance to [facility]. BP 151/96, HR 85. Blood glucose [facility]. Dr. Connell evaluated pt and 911 called. [facility] ambulance responded and warm hand off was given and pt was transported to [facility]. documented in this encounter Plan of Treatment Upcoming Encounters Date Type Department Care Team (Late st Contact Info) Description 06/02/2025 9:00 AM EDT Office Visit [facility] MEDICINE [address] [place] [address] Tyesha Rogers MD [address] [place] [address] 06/24/2025 9:00 AM EDT Office Visit [facility] OPTOMETRY [address] [place] [address] Katharine Carbone, OD [address] [place] [address] documented as of this encounter Visit Diagnoses Not on filedocumented in this encounter Additional Health Concerns Assessment Noted Time PHQ-9 Depression Total Score: 14 025 1:25 PM EDT documented as of this encounter Care Teams Early Childhood Associate Teacher Relationship Specialty Start Date End Date Tyesha Rogers MD [address] [place] [address] PCP - General Family Medicine 04/25/19 documented as of this encounter
--- OUTSIDE RECORDS SUMMARY | 2025-05-30 11:33 | XMS_ITS | Encounter Summary ---
Author Organization [employer] Address 75 [facility] 7 [place] [address] Care Team Providers Care Body Shop Mechanic Name Role Phone Tyesha Rogers MD Primary Care Provider [phone] Reason for Visit * Reason Onset Date Comments Nurse Triage 11/01/2023 Encounter Details Date Type Department Care Team ([facility] st Contact Info) Description 11/01/2023 Telephone [facility] MEDICINE 230 [place], [place] [phone] Tyesha Rogers MD [address] [place] [address] Nurse Triage Social History Tobacco Use Types [...] disposition at this time and will request [facility] for medications at time of HDF appt. [...] Description 06/02/2025 9:00 AM EDT Office Visit [facility] MEDICINE [address] [place] [address] Tyesha Rogers MD [address] [place] [address] 06/24/2025 9:00 AM EDT Office Visit [facility] OPTOMETRY [address] [place] [address] Raf, Katharine, OD [address] [place] [address] documented as of this encounter Visit Diagnoses Not on filedocumented in this encounter Additional Health Concerns Assessment Noted Time PHQ-9 Depression Total Score: 21 023 9:42 AM EDT documented as of this encounter Care Teams Body Shop Mechanic Relationship Specialty Start Date End Date Tyesha Rogers MD [address] [place] [address] PCP - General Family Medicine 04/25/19 documented as of this encounter
--- OUTSIDE RECORDS SUMMARY | 2025-05-30 11:33 | XMS_ITS | Encounter Summary ---
Author Organization [employer] Address [address] [place] [address] 7 [place] [address] Care Team Providers Care Highway Painter Name Role Phone Tyesha Rogers MD Primary Care Provider [phone] Encounter Details Date Type Department Care Team (Late st Contact Info) Description 08/30/2022 Abstract [facility] [address] [place], [place] [phone] Tyesha Rogers MD [address] [place], [place] [phone] Social History Tobacco Use Types Packs/Day Years [...] Description 06/02/2025 9:00 AM EDT Office Visit [facility] [address] [place] [address] Tyesha Rogers MD [address] [place] [address] 06/24/2025 9:00 AM EDT Office Visit [facility] [address] [place] [address] Raf, Katharine, OD [address] [place] [address] documented as of this encounter Visit Diagnoses Not on filedocumented in this encounter Additional Health Concerns Assessment Noted Time PHQ-9 Depression Total Score: 9 08/18/20 22 11:40 AM EST documented as of this encounter Care Teams Highway Painter Relationship Specialty Start Date End Date Tyesha Rogers MD [address] [place] [address] PCP - General Family Medicine 04/25/19 documented as of this encounter
--- OUTSIDE RECORDS SUMMARY | 2025-05-30 11:34 | XMS_ITS | Encounter Summary ---
Author Organization [employer] Address [address] [facility] 7 [place] [address] Care Team Providers Care Provider Network Manager Name Role Phone Tyesha Rogers MD Primary Care Provider [phone] Encounter Details Date Type Department Care Team (Late st Contact Info) Description 07/11/2024 Telephone [facility] [address] [place], [place] [phone] Mira Vanegas, PharmD 230 [place] [address] Social History Tobacco Use Types Packs/Day Years [...] Please assist in obtaining discharge paperwork from [facility] Patient was admitted on 06/21/2024. Thank you documented in this encounter Plan of Treatment Upcoming Encounters Date Type Department Care Team (Late st Contact Info) Description 06/02/2025 9:00 AM EDT Office Visit [facility] [address] [place] [address] Tyesha Rogers MD [address] [place] [address] 06/24/2025 9:00 AM EDT Office Visit [facility] [address] [place] [address] Raf, Katharine, OD [address] [place] [address] documented as of this encounter Visit Diagnoses Not on filedocumented in this encounter Additional Health Concerns Assessment Noted Time PHQ-9 Depression Total Score: 24 024 8:33 AM EDT documented as of this encounter Care Teams Provider Network Manager Relationship Specialty Start Date End Date Tyesha Rogers MD [address] [place] [address] PCP - General Family Medicine 04/25/19 documented as of this encounter
--- OUTSIDE RECORDS SUMMARY | 2025-05-30 11:34 | XMS_ITS | Encounter Summary ---
Author Organization [email or web address] Address [address] [facility] 7t [place] [address] Care Team Providers Care Supervisor Food Checkers And Cashiers Name Role Phone Tyesha Rogers MD Primary Care Provider [phone] Encounter Details Date Type Department Care Team (Late st Contact Info) Description 01/25/2024 Orders Only [facility] [address] [place], [place] [phone] Tyesha Rogers MD [address] [place], [place] [phone] Social History Tobacco Use Types Packs/Day Years [...] 9:00 AM EDT Office Visit [facility] [address] [place] [address] Tyesha Rogers MD [address] [place] [address] 06/24/2025 9:00 AM EDT Office Visit [facility] [address] [place], [place] [phone] Raf, Katharine, OD [address] [place] [address] documented as of this encounter Visit Diagnoses Not on filedocumented in this encounter Additional Health Concerns Assessment Noted Time PHQ-9 Depression Total Score: 21 024 10:41 AM EDT documented as of this encounter Care Teams Supervisor Food Checkers And Cashiers Relationship Specialty Start Date End Date Tyesha Rogers MD [address] [place], [place] [phone] PCP - General Family Medicine 04/25/19 documented as of this encounter
--- OUTSIDE RECORDS SUMMARY | 2025-05-30 11:34 | XMS_ITS | Encounter Summary ---
Author Organization [employer] Address [address] [place] [address] 7 [place] [address] Care Team Providers Care Ammunition Storage Superintendent Name Role Phone Tyesha Rogers MD Primary Care Provider [phone] Reason for Referral * Consultation (Routine) - Closed Specialty Diagnoses / Procedures Referred By Contangel t Referred To Contact Diagnoses Type 2 diabetes mellitus with hyperglycemia, with long-term current use of insulin (CMS/HCC) Hypertension, unspecified type Multiple sclerosis (CMS/HCC) Tyesha Rogers MD [address] [place] [address] Phone: tel: fax: [address] [address] Phone: tel: fax: Referral ID Status Reason Start Date Expiration Date V isits Requested Visits Authorized [id number] Closed Specialty Services Required 11/15/2024 11/15/2025 1 1 Encounter Details Date Type Department Care Team (Late st Contact Info) Description 11/15/2024 Orders Only [facility] [address] [address] [phone] Tyesha Rogers MD [address] [place] [phone] Type 2 diabetes mellitus with hyperglycemia, with long-term current use of insulin (CMS/HCC) (Primary Dx); Hypertension, unspecified type; Multiple sclerosis (CMS/HCC); Type 2 diabetes mellitus with hyperglycemia (CMS/HCC); Type 2 diabetes mellitus with hyperglycemia, with long-term current use of insulin ([facility]) Social History Tobacco Use Types Packs/Day Years [...] Upcoming Encounters Date Type Department Care Team ([facility] st Contact Info) Description 06/02/2025 9:00 AM EDT Office Visit [facility] [address] [place] [address] Tyesha Rogers MD [address] [place] [address] 06/24/2025 9:00 AM EDT Office Visit [facility] [address] [place] [address] Raf, Katharine, OD [address] [place] [address] Scheduled Referrals Name Type Priority Associated Diagnoses [...] documented as of this encounter Care Teams Ammunition Storage Superintendent Relationship Specialty Start Date End Date Tyesha Rogers MD [address] [place] [address] PCP - General Family Medicine 04/25/19 documented as of this encounter
--- OUTSIDE RECORDS SUMMARY | 2025-05-30 11:34 | XMS_ITS | Encounter Summary ---
Author Organization [employer] Address [address] [facility] 7t [place] [address] Care Team Providers Care Photographic Equipment Technician Name Role Phone Tyesha Rogers MD Primary Care Provider [phone] Encounter Details Date Type Department Care Team (Late st Contact Info) Description 05/06/2024 Orders Only [facility] [address] [place], [place] [phone] Tyesha Rogers MD [address] [place], [place] [phone] Social History Tobacco Use Types Packs/Day Years [...] Visit [facility] [address] [place] [address] Tyesha Rogers MD [address] [place] [address] 06/24/2025 9:00 AM EDT Office Visit [facility] [address] [place], [place] [phone] Raf, Katharine, OD 230 [place] [address] documented as of this encounter Visit Diagnoses Not on filedocumented in this encounter Additional Health Concerns Assessment Noted Time PHQ-9 Depression Total Score: 21 024 10:41 AM EDT documented as of this encounter Care Teams Photographic Equipment Technician Relationship Specialty Start Date End Date Tyesha Rogers MD [address] [place], [place] [phone] PCP - General Family Medicine 04/25/19 documented as of this encounter
--- OUTSIDE RECORDS SUMMARY | 2025-05-30 11:34 | XMS_ITS | Encounter Summary ---
Author Organization [employer] Address [address] [facility] 7t [place] [address] Care Team Providers Care Dryer And Washer Mechanic Name Role Phone Tyesha Rogers MD Primary Care Provider [phone] Encounter Details Date Type Department Care Team (Late st Contact Info) Description 10/29/2024 Orders Only [facility] [address] [place] [address] Provider, MD Jhony Social History Tobacco Use [...] 9:00 AM EDT Office Visit [facility] [address] [place] [address] Tyesha Rogers MD [address] [place] [address] 06/24/2025 9:00 AM EDT Office Visit [facility] OPTOMET[facility] [address] [place] [address] Raf, Katharine, OD [address] [place] [address] documented as of this encounter Procedures Procedure [...] documented as of this encounter Care Teams Dryer And Washer Mechanic Relationship Specialty Start Date End Date Tyesha Rogers MD [address] [place] [address] PCP - General Family Medicine 8/15/19 documented as of this encounter
--- OUTSIDE RECORDS SUMMARY | 2025-05-30 11:34 | XMS_ITS | Encounter Summary ---
Author Organization [employer] Address [address] [facility] 7t [place] [address] Care Team Providers Care On Site Nurse Name Role Phone Tyesha Rogers MD Primary Care Provider [phone] Reason for Visit * Reason Comments Med Refill Encounter Details Date Type Department Care Team ([facility] st Contact Info) Description 11/23/2024 Refill [facility] [address] [place], [place] [phone] Tyesha Rogers MD [address] [place], [place] [phone] Other chronic pain Social History Tobacco Use [...] your housing situation today? I have dominga olmsetad 07/05/[address] you li [...] [facility] [address] [place] [address] Tyseha Rogers MD [address] [place] [address] 06/24/2025 9:00 AM EDT Office Visit [facility] OPT[facility]ET[facility] [address] [place] [address] Raf, Katharine, OD [address] [place] [address] documented as of this encounter Visit Diagnoses Diagnosis Other chronic pain documented in this encounter Additional Health Concerns Assessment Noted Time PHQ-9 Depression Total Score: 15 025 11:52 AM EST documented as of this encounter Care Teams On Site Nurse Relationship Specialty Start Date End Date Tyesha Rogers MD [address] [place] [address] PCP - General Family Medicine 04/25/19 documented as of this encounter
--- OUTSIDE RECORDS SUMMARY | 2025-05-30 11:34 | XMS_ITS | Clinical Summary ---
Author Organization [employer] Address [address] [place] [address] 7 [place] [address] Care Team Providers Care Circular Stuffer Name Role Phone Tyesha Houston MD Primary Care Provider [phone] Allergies Active Allergy Reactions Criticality Noted Date [...] Unable to Define Lisinopril-Hydrochlorothiazi de Cough 12/06/2016 [place] High 12/04/2018 Other reaction(s): stiffened up & [...] hyperglycemia, with long-term current use of insulin ([facility]) Administer 15 g orally as [...] 025 Active Blood Glucose Monitoring Suppl (FreeStyle [place] Lite) w/Device kit Use to test blood [...] hyperglycemia, with long-term current use of insulin ([facility]) << Sliding Scale Comments >>100 - 149 8 units Call if less than 27130 - 199 10 units 200 - 249 [...] with long-term current use of insulin (CMS/HCC) USE TO TEST BLOOD SUGAR FOUR TIMES DAILY. FASTING (BEFORE BREAKFAST), BEFORE LUNCH, BEFORE DINNER AND 2 HOURS AFTER YOUR LARGEST MEAL OF THE DAY. 100 strip 3 Active Ventolin HFA 108 (90 Base) MCG/ACT inhalerIndicatio ns:Moderate persistent asthma without complication INHALE TWO PUFFS BY MOUTH EVERY 4 HOURS NEEDED FOR FOR WHEEZING 18 g 3 Active hydroCHLOROthiaz liban 12.5 MG tabletIndication s:Primary hypertension Take 1 tablet (12.5 mg) by mouth Once per day. 30 tablet 025 2025 Active insulin degludec (Tresiba FlexTouch) 100 UNIT/ML injectionIndicat ions:Type 2 diabetes mellitus with hyperglycemia, with long-term current use of insulin (CMS/HCC) Administer subcutaneously 30 units daily 6 mL Active atomoxetine (Strattera) 18 MG capsuleIndicatio ns:Attention or concentration deficit Take 1 capsule (18 mg) by mouth in the morning. Swallow capsule whole; do not open. If opened accidentally, do not touch eyes; wash hands immediately (product is an eye irritant). 30 capsule 025 2024 Active sertraline (Zoloft) 25 MG tabletIndication s:MDD (major depressive disorder), recurrent severe, without psychosis (CMS/HCC) Take 1 tablet (25 mg) by mouth in the morning. 30 tablet 025 2024 Active insulin degludec (Tresiba FlexTouch) 100 UNIT/ML injection Administer subcutaneously 23 units daily 6 mL 025 2024 Discontinued(R eorder (will not trigger notification to Pharmacy)) albuterol (Ventolin HFA) 108 (90 Base) MCG/ACT inhalerIndicatio ns:Moderate persistent asthma without complication Inhale 2 puffs every 4 (four) hours if needed for wheezing. 18 g 3 025 2024 Discontinued sertraline (Zoloft) 25 MG tabletIndication s:MDD (major depressive disorder), recurrent severe, without psychosis (CMS/HCC) Take 1 tablet (25 mg) by mouth in the morning. 30 tablet 025 2024 Discontinued atomoxetine (Strattera) 18 MG capsuleIndicatio ns:Attention or concentration deficit Take 1 capsule (18 mg) by mouth in the morning. Swallow capsule whole; do not open. If opened accidentally, do not touch eyes; wash hands immediately (product is an eye irritant). 30 capsule 025 2024 Discontinued doxycycline (Vibramycin) 100 MG capsuleIndicatio ns:Soft tissue infection Take 1 capsule (100 mg) by mouth 2 times daily for 5 days. Take with at least 8 ounces (large glass) of water, do not lie down for 30 minutes after 10 capsule 025 2024 Hospital, Clinic, or Other Facility Administered Medication [...] Perimenopause 01/29/2025 UTI (urinary tract infection), bacterial 025 Vulvar abscess 01/29/2025 Acute hyperglycemia 01/29/2025 Excoriation [...] patient presented to [facility] [place] [facility] [place] Hypomagnesemia 06/04/2024 Right wrist pain [...] restlessness. Emily agrees to go up to [facility], and attempt to reschedule with therapist. Emily is open to a referral to [facility] for psychiatric medication. She also requests to return to [facility]. RN Mamie has scheduled that appointment. Emily agrees to [...] sxs. She is engage in MH at [facility] with therapist Aminata Bolton. I will submit referral to [facility] for Psychiatrist services. Provided education around [...] a. Remind engage in MH services with [facility] b. Referral to [facility] for Psychiatrist services c. [facility] contact information for support. 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 Last seen in December 2022 - CAD, remote non-STEMI on 10/29, reported moderate CAD - History of DVT and likely PEA at [facility], on apixaban and 12 contrast allergy with anaphylaxis. 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 Last seen in December 2022 - CAD, remote non-STEMI on 10/29, reported moderate CAD - History of DVT and likely PEA at [facility], on apixaban and 12 contrast allergy with anaphylaxis. 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 Last seen in December 2022 - CAD, remote non-STEMI on 10/29, reported moderate CAD - History of DVT and likely PEA at [facility], on apixaban and 12 contrast allergy with anaphylaxis. Assessment & Plan (12/22/2022 5:36 AM EDT): -Fan Blade Aligner: Umesh Forrester, last seen in Sep 2021 -Hx mild CAD, last cardiac cath on 03/06/20 -continue ARB and statin -continue working on lifestyle modification -not on ASA since she started taking Eliquis for PE -previously on propranolol for ARCEO, but no longer taking it due to Hx hypotension -follow-up with business administration professor as scheduled Assessment & Plan (09/04/2022 12:05 PM EST): -Fan Blade Aligner: Umesh Forrester, last seen in Sep 2021 -Hx mild CAD, last cardiac cath on 03/06/20 -continue ARB and statin -continue working on lifestyle modification -not on ASA since she started taking Eliquis for PE -previously on propranolol for ARCEO, but no longer taking it due to Hx hypotension -follow-up with business administration professor as scheduled Tobacco use 08/30/2022 Assessment & [...] & Plan (01/14/2025 11:13 AM EDT): Urologist: Dr. Roger Boyd, last seen in Aug 2021 S/p right ESWL on 01/29/20 S/p left cystoscopy, retrograde laser and stent on 02/28/20 S/p removal on 04/07/21 S/p cystoscopy and ureteroscopy on 08/23/21 Drink water > 2L / day Assessment & Plan (12/22/2022 5:58 AM EDT): Urologist: Dr. Roger SNIDER, last seen in Aug 2021 S/p right ESWL on 01/29/20 S/p left cystoscopy, retrograde laser and stent on 02/28/20 S/p removal on 04/07/21 S/p cystoscopy and ureteroscopy on 08/23/21 Drink water > 2L / day Assessment & Plan (09/04/2022 12:06 PM EST): Urologist: Dr. Roger SNIDER, last seen in Aug 2021 S/p right ESWL on 01/29/20 S/p left cystoscopy, retrograde laser and stent on 02/28/20 S/p removal on 04/07/21 S/p cystoscopy and ureteroscopy on 08/23/21 Drink water > 2L / day Assessment & Plan (08/19/2022 10:40 AM EST): Urologist: Dr. Roger SNIDER, last seen in Aug 2021 S/p right [...] she is diagnosed with MDD. Occasionally with [place] [facility] due to borderline tendency and conversion disorder Hx suicide attempt several times (one time overdosed insulin) [facility] provider: Dr. Abi MCDONNELL is psychiatrist, previously Albina Duff was her therapist. Encouraged to reach out to her [facility] therapist and psychiatrist for her concerns and medication management She was able to contract her safety today Assessment & Plan (01/14/2025 11:14 AM EDT): Current Dx: Bipolar disorder, sometimes she is diagnosed with MDD. Occasionally with [place] [facility] due to borderline tendency and conversion disorder Hx suicide attempt several times (one time overdosed insulin) [facility] provider: Dr. Abi MCDONNELL is psychiatrist, previously Albina Duff was her therapist. Encouraged to reach out to her [facility] therapist and psychiatrist for her concerns and medication management She was able to contract her safety today Assessment & Plan (08/25/2023 7:11 PM EST): Current Dx: Bipolar disorder, sometimes she is diagnosed with MDD. Occasionally with [place] [facility] due to borderline tendency and conversion disorder Hx suicide attempt several times (one time overdosed insulin) [facility] provider: Dr. Abi MCDONNELL is psychiatrist, previously Albina Duff was her therapist. Encouraged to reach out to her [facility] therapist and psychiatrist for her concerns and medication management She was able to contract her safety today Assessment & Plan (09/04/2022 12:10 PM EST): Current Dx: Bipolar disorder, sometimes she is diagnosed with MDD. Occasionally with [place] [facility] due to borderline tendency and conversion disorder [facility] provider: Dr. Abi Thomason is psychiatrist, Albina Duff has been her therapist. Encouraged to reach out to her [facility] therapist and psychiatrist for her concerns and medication management She was able to contract her safety today Assessment & Plan (08/19/2022 11:13 AM EST): Current Dx: Bipolar disorder, sometimes she is diagnosed with MDD. Occasionally with [place] [facility] due to borderline tendency and conversion disorder [facility] provider: Dr. Abi Thomason is psychiatrist, Albina Duff has been her therapist. Encouraged to reach out to her [facility] therapist and psychiatrist for her concerns and medication management She was able to contract her safety today Cervical dysplasia 08/02/2022 Cocaine use disorder 08/02/2022 H/O: attempted suicide 08/02/2022 Substance use disorder 08/02/2022 Opioid use disorder 08/02/2022 Coronary artery disease 09/26/2018 Type 2 diabetes mellitus with hyperglycemia 09/11 Overview (01/13/2025): >>OVERVIEW FOR TYPE 2 DIABETES MELLITUS, WITH LONG-TERM CURRENT USE OF INSULIN ([facility]) WRITTEN ON 03/15/2023 10:18 AM BY SNEHA [...] Up coming eye appointment in February with [facility] Foot exam: 01/14/25 Neuropathy; callus; previously written a script for diabetic footwear. She did not go to picker tender the shoes. Referred to manager care management Assessment & Plan (01/19/2025 10:36 PM EDT): [...] Up coming eye appointment in February with [facility] Foot exam: 01/14/25 Neuropathy; callus; previously written a script for diabetic footwear. She did not go to picker tender the shoes. Referred to manager care management Assessment & Plan (01/13/2025 9:51 PM EDT): >>ASSESSMENT AND PLAN FOR TYPE 2 DIABETES MELLITUS, WITH LONG-TERM CURRENT USE OF INSULIN ([facility]) WRITTEN ON 08/25/2023 7:08 PM BY TYESHA [...] profile: 04/04/22 Diabetic eye exam: Referred to [facility] Eye care in the past; will check its status Foot exam: 08/08/23 Neuropathy; callus; previously written a script for diabetic footwear. She did not go to picker tender the shoes. Will refer to manager care management Assessment & Plan (01/13/2025 9:51 PM EDT): >>ASSESSMENT AND PLAN FOR TYPE 2 DIABETES MELLITUS WITH HYPERGLYCEMIA ([facility]) WRITTEN ON 09/27/2023 6:06 AM BY TYESHA [...] profile: 04/04/22 Diabetic eye exam: Referred to [facility] Eye care in the past; will check its status Foot exam: 08/08/23 Neuropathy; callus; previously written a script for diabetic footwear. She did not go to picker tender the shoes. Will refer to manager care management >>ASSESSMENT AND PLAN FOR TYPE 2 DIABETES MELLITUS, WITH LONG-TERM CURRENT USE OF INSULIN ([facility]) WRITTEN ON 09/27/2023 6:06 AM BY TYESHA [...] profile: 04/04/22 Diabetic eye exam: Referred to [facility] Eye care in the past; will check its status Foot exam: 08/08/23 Neuropathy; callus; previously written a script for diabetic footwear. She did not go to picker tender the shoes. Will refer to manager care management Assessment & Plan (12/22/2022 5:56 AM EDT): [...] profile: 04/04/22 Diabetic eye exam: Referred to [facility] Eye care in the past; [...] profile: 04/04/22 Diabetic eye exam: Referred to [facility] Eye care in the past; [...] profile: 04/04/22 Diabetic eye exam: Referred to [facility] Eye care in the past; will check its status Foot exam: 08/18/22 Neuropathy; callus; written a script for diabetic footwear. Assessment & Plan (01/13/2025 9:51 PM EDT): >>ASSESSMENT AND PLAN FOR TYPE 2 DIABETES MELLITUS WITH HYPERGLYCEMIA ([facility]) WRITTEN ON 08/19/2022 10:52 AM BY TYESHA [...] profile: 04/04/22 Diabetic eye exam: Referred to [facility] Eye care in the past; will check its status Foot exam: 08/18/22 Neuropathy; callus; will write a script for diabetic footwear. >>ASSESSMENT AND PLAN FOR TYPE 2 DIABETES MELLITUS, WITH LONG-TERM CURRENT USE OF INSULIN (CMS/HCC) WRITTEN ON 08/19/2022 10:52 AM BY TYESHA [...] profile: 04/04/22 Diabetic eye exam: Referred to [facility] Eye care in the past; [...] & Plan (02/12/2025 9:05 AM EDT): Neurologist: [facility], last seen in Jun 2023 Current medication: Octrevus, started in May 2022 Flare-up frequency > 2x / year Last flare-up in Jun 2020, hospitalized in [facility], dexamathasone was not given due to concern for PML Last imaging studies: MRI brain / cervical spine in Jun 2024 [place] [facility] Followed by urologist for neurogenic bladder, recurrent UTI and recurrent kidney stone Treatment Hx: -Tysabri (Natalizumab) q4wks, 03/2020-05/2022 (Interruption due to concern for PML 06/2020-11/2020) -Gabapentin, pregabalin for pain, but discontinued due to side effect and ineffectiveness Pt was recommended to check with neurology office for MRI appt Assessment & Plan (01/19/2025 10:32 PM EDT): Neurologist: [facility], last seen in Jun 2023 Current medication: Octrevus, started in May 2022 Flare-up frequency > 2x / year Last flare-up in Jun 2020, hospitalized in [facility], dexamathasone was not given due to concern for PML Last imaging studies: MRI brain / cervical spine in Jun 2024 at [facility] Followed by urologist for neurogenic bladder, recurrent UTI and recurrent kidney stone Treatment Hx: -Tysabri (Natalizumab) q4wks, 03/2020-05/2022 (Interruption due to concern for PML 06/2020-11/2020) -Gabapentin, pregabalin for pain, but discontinued due to side effect and ineffectiveness Pt was recommended to check with neurology office for MRI appt Assessment & Plan (09/27/2023 6:08 AM EST): Neurologist: [facility], last seen in Jun 2023 Current medication: Octrevus, started in May 2022 Flare-up frequency > 2x / year Last flare-up in Jun 2020, hospitalized in [facility], dexamathasone was not given due to concern for PML Last imaging studies: MRI brain / cervical spine in Apr 2022 at [facility] Followed by urologist for neurogenic bladder, recurrent UTI and recurrent kidney stone Treatment Hx: -Tysabri (Natalizumab) q4wks, 03/2020-05/2022 (Interruption due to concern for PML 06/2020-11/2020) -Gabapentin, pregabalin for pain, but discontinued due to side effect and ineffectiveness Pt was recommended to check with neurology office for MRI appt Assessment & Plan (08/25/2023 6:51 PM EST): Neurologist: [facility], last seen in Jun 2023 Current medication: Octrevus, started in May 2022 Flare-up frequency > 2x / year Last flare-up in Jun 2020, hospitalized in [facility], dexamathasone was not given due to concern for PML Last imaging studies: MRI brain / cervical spine in Apr 2022 at [facility] Followed by urologist for neurogenic bladder, recurrent UTI and recurrent kidney stone Treatment Hx: -Tysabri (Natalizumab) q4wks, 03/2020-05/2022 (Interruption due to concern for PML 06/2020-11/2020) -Gabapentin, pregabalin for pain, but discontinued due to side effect and ineffectiveness Pt was recommended to check with neurology office for MRI appt Assessment & Plan (12/22/2022 5:55 AM EDT): Neurologist: [facility], last seen on 12/20/22 Current medication: Octrevus, started in May 2022, 2nd dose scheduled on 12/31/22 Flare-up frequency > 2x / year Last flare-up in Jun 2020, hospitalized in [facility], dexamathasone was not given due to concern for PML Last imaging studies: MRI brain / cervical spine in Apr 2022 at [facility] Followed by urologist for neurogenic bladder, recurrent UTI and recurrent kidney stone Treatment Hx: Tysabri (Natalizumab) q4wks, 03/2020-05/2022 (Interruption due to concern for PML 06/2020-11/2020) Copaxone (weight gain), aubagio (wt gain and hair loss), Gabapentin, pregabalin for pain, but discontinued due to side effect and ineffectiveness Assessment & Plan (10/03/2022 5:51 AM EST): Neurologist: [facility], last seen on 05/12/22 Current medication: Octrevus, started in May 2022 Flare-up frequency > 2x / year Last flare-up in Jun 2020, hospitalized in [facility], dexamathasone was not given due to concern for PML Last imaging studies: MRI brain / cervical spine in Apr 2022 at [facility] Followed by urologist for neurogenic bladder, recurrent UTI and recurrent kidney stone Treatment Hx: Tysabri (Natalizumab) q4wks, 03/2020-05/2022 (Interruption due to concern for PML 06/2020-11/2020) Gabapentin, pregabalin for pain, but discontinued due to side effect and ineffectiveness Assessment & Plan (08/19/2022 11:02 AM EST): Neurologist: [facility], last seen on 04/08/22 Current medication: Octrevus, started in May 2022 Flare-up frequency > 2x / year Last flare-up in Jun 2020, hospitalized in [facility], dexamathasone was not given due to concern for PML Last imaging studies: MRI brain / cervical spine in Apr 2022 at [facility] Followed by urologist for neurogenic bladder, [...] PM EST): -will check the status of BHS Resolved Problems Problem Noted Date Diagnosed Date Resolved Date Dysmenorrhea 01/29/2025 02/27/2025 Acute hyperglycemia 06/26/2024 01/20/20 Assessment & Plan (06/26/2024 12:15 PM EDT): EMS called, patient presented to [facility] to the [facility] [place] Daytime somnolence 12/19/2018 2 Encounters * This document contains information received from the source organization and may not represent a complete record from that organization. Date Type Department Care Team Description 05/28/2025 10:00 AM EDT Office Visit [facility] [address] [place] [phone] Wojciech Hodges MD Substance use disorder (Primary Dx) 05/28/2025 Travel 05/26/2025 Orders Only GENERIC EXTERNAL DATA DEPARTMENT Provider, Generic External Data 05/26/2025 Patient Outreach [facility] [address] [place] [phone] Esmer Molina Recovery Supports 05/26/2025 Telephone [facility] [address] [place] [phone] Chung Gu, RN Nurse Triage 05/23/2025 1:20 PM EDT Office Visit [facility] [address] [place] [phone] Marcy Hatch FNP Primary hypertension (Primary Dx); Type 2 diabetes mellitus with hyperglycemia, with long-term current use of insulin ([facility]); Soft tissue infection; Recurrent chest pain; Sprain of right ankle, unspecified ligament, initial encounter 05/23/2025 Orders Only [address] [address] [facility] 05/23/[address] [address] Tyesha Houston MD 05/23/[address] [address] Tyesha Houston MD Telephone Call 05/23/2025 Travel 05/15/[address] [address] [facility] Moderate persistent asthma without complication 05/14/2025 Patient Outreach [address] [address] Tyesha Houston MD 05/08/2025 Patient Outreach [address] [address] Tyesha Houston MD Care Management (C3CM- F/U call # 3) 05/07/2025 Patient Outreach [facility] [address] [place], [place] [phone] Tyesha Houston MD Transition Of Care (Tcm) (HDF scheduled. ) 05/07/[address] [address] Tyesha Houston MD Hospital Follow-up 05/01/[address] [address] Tyesha Houston MD Call Back Request 04/29/2025 Patient Outreach [address] [address] Tyesha Houston MD 04/28/2025 Patient Outreach [address] [address] Tyesha Houston MD Care Management (C3CM- F/U call # 2) 04/23/2025 Orders Only [address] [address] Tyesha Houston MD 04/23/2025 Orders Only GENERIC EXTERNAL DATA DEPARTMENT Provider, Generic External Data 04/22/2025 Orders Only GENERIC EXTERNAL DATA DEPARTMENT Provider, Generic External Data 04/21/2025 Orders Only [facility] External Provider, [facility] 04/18/2025 Patient Outreach [facility] [address] [place] [address] Pierre Navarrete RC Recovery Supports 04/17/2025 Patient Outreach [facility] [address] [place] [address] Jovan Berumen RC Recovery Supports 04/15/[address] [address] Neha Mondragon, SCIENTIFIC RESEARCH ASSOCIATE Follow-up 04/14/[address] [address] Tyesha Houston MD ER Follow-up; Nurse Triage 04/14/2025 Refill [facility] [address] [place] [address] Tyesha Houston MD Type 2 diabetes mellitus with hyperglycemia (CMS/HCC); Type 2 diabetes mellitus with hyperglycemia, with long-term current use of insulin ([facility]) 04/14/2025 Telephone [facility] [address] [place] [address] Tyesha Houston MD 04/10/[address] [address] Tyesha Houston MD Nurse Triage 04/01/2025 Patient Outreach [address] [address] Andrew Garcia RC Recovery Supports 03/31/2025 Patient Outreach [facility] [address] [place] [address] Esmer Molina RC Recovery Supports 03/31/2025 Patient Outreach [facility] [address] [place] [address] Jovan Berumen RC Recovery Supports 03/26/2025 Telephone [facility] [address] [place] [address] Tyesha Houston MD 03/25/2025 Patient Outreach [address] [address] Andrew Garcia Recovery Supports 03/20/2025 Patient Outreach [address] [address] Esmer Molina Recovery Supports 03/19/2025 Patient Outreach [address] [address] Tyesha Houston MD Care Management (C3- Follow up # 2/LVM) 03/18/[address] [address] Penelope Deal FNP CHART PREP 03/17/[address] [address] Tyesha Houston MD Reschedule (Called pt to reschedule pap appointment 03/19/2025 @10:45. Due to receiving a call that pt requested to have apt changed ! PT didn't answer message was left ! ) 03/13/2025 2:40 PM EDT Office Visit [facility] [address] [place] [address] Kinjal Ch MD Acute chest pain (Primary Dx); High risk of cardiac event 03/13/2025 Telephone [facility] [address] [address] Tyesha Houston MD Error (VOID this visit) 03/13/2025 Travel 03/11/[address] [address] Tyesha Houston MD Appointment Request 03/11/2025 Patient Outreach [address] [phone] Tyesha Houston MD Care Coordination 03/06/[address] [address] Tyesha Houston MD 03/04/2025 Patient Outreach [address] [phone] Tyesha Houston MD Care Management (C3CM- Follow up call # 2/LVM) 03/01/2025 Telephone [facility] [address] [place] [address] Tyesha Houston MD Order for mammo 02/28/2025 Results Follow-Up [facility] [address] [place] [address] Penelope Deal, COMMUNITY RELATIONS REPRESENTATIVE Bacterial Vaginosis Panel, Chlamydia/N. Gonorrhoeae RNA, TMA, Urogenitial 02/28/2025 Patient Outreach [facility] MEDICINE [address] [place] [address] Tyesha Houston MD from Last 3 Months Immunizations Immunization Administration [...] Description 06/02/2025 9:00 AM EDT Office Visit [facility] MEDICINE [address] [place] [address] Tyesha Houston MD [address] [place] [address] 06/24/2025 9:00 AM EDT Office Visit [facility] OPTOMETRY [address] [place] [address] Raf, Katharine, OD [address] [place] [address] Health Maintenance Due Date Last Done Comments [...] hyperglycemia, with long-term current use of insulin ([facility]) GLUCOSE, WHOLE BLOOD Routine 04/23/2025 11:53 AM [...] CONTRAST Routine 04/21/2025 6 :38 PM EDT HEPATITIS C AB W/REFL TO HCV RNA, QN, PCR Routine 01/14/2025 11:56 AM EDT Routine screening for STI (sexually transmitted infection) HIV 1/2 ANTIGEN/ANTIBODY, FOURTH GENERATION W/RFL Routine 01/14/2025 11:56 AM EDT Routine screening for STI (sexually transmitted infection) ALBUMIN, RANDOM URINE W/CREATININE Routine 01/14/2025 11:56 AM EDT Type 2 diabetes mellitus with hyperglycemia, with long-term current use of insulin ([facility]) Dyslipidemia LIPID PANEL WITH REFLEX TO DIRECT LDL Routine 01/14/2025 11:56 AM EDT Type 2 diabetes mellitus with hyperglycemia, with long-term current use of insulin ([facility]) Dyslipidemia POCT GLYCOSYLATED HEMOGLOBIN (HGB A1C) Routine 01/14/2025 10:57 AM EDT Type 2 diabetes mellitus with hyperglycemia, with long-term current use of insulin ([facility]) ZZZ HISTORICAL HPV E6/E7 RFLX VENU 16 18/45 Routine 08/25/2020 11:45 AM EST MAMMOGRAM GENERIC Routine 07/24/2020 10: 40 AM EST from Last 3 Months or Most Recently Relevant to Health Maintenance Results * (ABNORMAL) Glucose, Whole Blood (05/26/2025 5:15 PM EDT) Only the most recent of14 resultswithin the time period is included. Glucose, Whole Blood 356(HH) 60 - 115 mg/dL [facility] Comment:METER #: [id number] 05/26/2025 5:15 PM EDT 05/26/2025 5:17 PM EDT us Generic External Data Provider LAB BLOOD ORDERAB LES Final Result [facility] [address] [place] [phone] * (ABNORMAL) Urinalysis, Complete, with Reflex to Culture (05/26/2025 3:29 PM EDT) Color Urine Yellow [facility] Appearance Urine Clear [facility] PH 5.5 5.0 - 9.0 [facility] Glucose Urine UA >=1000(A) Negative mg/dL [facility] Urine Blood Negative Negative [facility] Specific [place] - Urine >=1.030(H) 1.005 - 1.025 [facility] Urine Protein Negative Neg-Trace mg/dL [facility] Urine Ketones Negative Negative mg/dL [facility] Nitrite Urine Negative Negative [facility] Leukocyte Esterase Urine Negative Negative [facility] RBC Urine 0-2 0 - 2 /HPF [facility] Urine WBC 0-5 0 - 5 /HPF [facility] Urine Squamous Epithelial Cell 3-5 0 - 2 /HPF [facility] Urine Bacteria 1+ None Seen [facility] Hyaline Casts, Urine 3-5 0 - 2 /LPF [facility] Urine Yeast Present [facility] 05/26/2025 3:29 PM EDT 05/26/2025 3:47 PM EDT Narrative [facility] - 05/26/2025 4:15 PM EDT [id number], Clean Catch us Generic External Data Provider LAB URINE ORDERAB LES Final Result [facility] [address] [place] [phone] * XR KUB and Upright 2 Views (05/26/2025 2:37 PM EDT) Anatomical Region Laterality Modality Radiographic Stephanie ging 05/26/2025 2:37 PM EDT Narrative 05/26/2025 2:50 PM EDT [address] [address] XRay Report Signed Patient: Emily Tucker MR#: [id number] 3606 : 1970 Acct:[id number] Age/Sex: 54 / F ADM Date: 05/26/25 Loc: HO.ED Attending Dr: Ordering Physician: Sabi Terrell NP Date of Service: 05/26/25 Procedure(s): XR KUB Accession Number(s): [id number] cc: Tyesha Houston MD; Sabi Terrell NP [...] 05/26/25 1447 DD/ 1437 TD/TT: 05/26/25 1443 Assistant Professor Of Spanish: Procedure Note Donotuseinterpreter, Image - 05/26/2025 [place] [address] XRay Report Signed Patient: Emily TuckerMR#: [id number] 3606 : 1970Acct:[id number] Age/Sex: 54 / FADM Date: 05/26/25 Loc: HO.ED Attending Dr: Ordering Physician: Sabi Terrell NP Date of Service: 05/26/25 Procedure(s): XR KUB Accession Number(s): [id number] cc: Tyesha Houston MD; Sabi Terrell NP [...] 05/26/25 1447 DD/ 1437 TD/TT: 05/26/25 1443 Assistant Professor Of Spanish: [facility] External Provider IMG XR PROCEDURES Final Result * Gram Stain Result (05/23/2025 3:44 PM EDT) 05/23/2025 3:44 PM EDT 05/23/2025 6:25 PM EDT Comment:Abdomen Narrative [facility] - 05/26/2025 7:26 AM EDT Gram stain results: No polys 1+ epithelial cells 2+ Gram-positive cocci Staphylococcus aureus Quant Org ID 4+ Staphylococcus aureus: Clindamycin <=0.25(R) Staphylococcus aureus: Erythromycin >=8(R) Staphylococcus aureus: Levofloxacin 0.25(S) Staphylococcus aureus: Oxacillin 0.5(S) Staphylococcus aureus: Penicillin-G >=0.5(R) Staphylococcus aureus: Tetracycline <=1(S) Staphylococcus aureus: Trimethoprim/Sulfamethoxazole <=10(S) Specimen Source: Abdomen [facility] COMMUNITY RELATIONS REPRESENTATIVE HISTORICAL/NON ORDERABLE LABS Final Result [facility] [address] [place] [phone] * (ABNORMAL) POCT glucose manually resulted (05/23/2025 2:18 PM EDT) Glucose Blood, POC 385(A) 60 - 200 mg/dL Blood Capillary blood specimen / Unknown 05/23/2025 2:18 PM EDT [facility] COMMUNITY RELATIONS REPRESENTATIVE POINT OF CARE TEST ENTER/EDIT ORDERABLES Final Result * SARS-CoV-2 RNA, Influenza A/B, and RSV RNA, Ql NAAT (04/22/2025 8:43 AM EDT) Pathologist [facility] Influenza A PCR NEGATIVE Negative [facility] Influenza B PCR NEGATIVE Negative [facility] Resp Syncy Virus RNA Qual PCR NEGATIVE Negative [facility] SARS COV2 PCR NEGATIVE Negative [facility] Comment:All test results mus t [...] use by authorized laboratories.Testing performed on the [employer] GeneXpert utilizingreal-time RT-PCR.All SARS CoV2 and positive influenza A/B results arereported to [facility]. 04/22/2025 8:43 AM EDT 04/22/2025 8:45 AM EDT Generic External Data Provider LAB MICROBIOLOGY - GENERAL ORDERABLES Final Result [facility] [address] [place] [phone] * (ABNORMAL) CBC auto differential (04/21/2025 8:59 PM EDT) White Blood Count 6.9 4.8 - 10.8 X10*3/uL [facility] Red Blood Count 4.88 4.20 - 5.50 X10*6/uL [facility] Hemoglobin 14.2 12.0 - 16.0 g/dl [facility] Hematocrit 41.7 37.0 - 47.0 % [facility] Mean Corpuscular Volume 85.5 80.0 - 98.0 fL [facility] Mean Corpuscular Hemoglobin 29.1 27.0 - 33.0 pg [facility] Mean Corpuscular HGB Conc 34.1 31.0 - 35.0 g/dl [facility] Red Cell Distribution Width 12.4 11.0 - 16.0 % [facility] Platelet Count 225 160 - 400 X10*3/uL [facility] Mean Platelet Volume 10.0 9.4 - 12.3 fL [facility] Neutrophils Percent Auto 55.9 45 - 73 % [facility] Imm Gran Pct Auto 0.4 0.0 - 0.4 % [facility] Lymphocytes Percent Auto 31.2 20 - 40 % [facility] Monocytes Percent Auto 6.6 2 - 11 % [facility] Eosinophils Percent Auto 4.9(H) 0 - 4 % [facility] Basophils Percent Auto 1.0 0 - 2 % [facility] NRBC Pct Auto 0.0 0.0 - 0.2 /100WBC [facility] Neutrophils Absolute Auto 3.9 2.0 - 8.3 x10*3/uL [facility] Imm Gran Abs Auto 0.03 0.00 - 0.03 X10*3/uL [facility] Lymphocytes Absolute Auto 2.2 1.2 - 4.9 X10*3/uL [facility] Monocytes Absolute Auto 0.5 0.1 - 1.2 X10*3/uL [facility] Eosinophils Absolute Auto 0.3 0.0 - 0.4 X10*3/uL [facility] Basophils Absolute Auto 0.1 0.0 - 0.2 X10*3/uL [facility] NRBC Abs Auto 0.000 0.0 - 0.012 X10*3/uL [facility] 04/21/2025 8:59 PM EDT 04/21/2025 9:09 PM EDT us Generic External Data Provider LAB BLOOD ORDERAB LES Final Result Performing Organization Address City/[facility]/ZIP Co de Phone Number [facility] [address] [place] [phone] * C-reactive Protein (04/21/2025 8:59 PM EDT) C Reactive Protein 0.21 < or = 0.50 mg/dL [facility] 04/21/2025 8:59 PM EDT 04/21/2025 9:09 PM EDT Generic External Data Provider LAB BLOOD ORDERAB LES Final Result Performing Organization Address [facility] Co de Phone Number [facility] [address] [place] [phone] * (ABNORMAL) Comprehensive Metabolic Panel (04/21/2025 8:59 PM EDT) Pathologist [facility] Sodium 136 135 - 145 mmol/L [facility] Potassium 3.9 3.3 - 5.1 mmol/L [facility] Chloride 105 96 - 108 mmol/L [facility] Carbon Dioxide 23 22 - 29 mmol/L [facility] Anion Gap 12 12 - 20 [facility] Urea Nitrogen (BUN) 13 9 - 16 mg/dL [facility] Creatinine, Serum 0.71 0.5 - 1.4 mg/dL [facility] Creatinine Clr Calc Pharmacy 86.7 [facility] Comment:Provided height and weight: 157.48 cm,73 kg.eGFR (calculated from the MDRD study equation) and eCrCl(calculated from the Cockcroft-Gault equation) are based ondifferent parameters and may not yield comparable results.If eCrCl result is absurd, please check patient'sheight/weight. Estimated Glomerular Filt Rate >60 [facility] Comment:Chronic Kidney Disea se: Estimated GFR < 60 mL/min/1.26v4Ckffkg Kidney Disease: Estimated GFR < 15 mL/min/1.73m2 Glucose 418(HH) 60 - 115 mg/dL [facility] Comment:Critical value for t est(s):GLU Results called to and readback by: ANWM Person calling: VICKEYERMarvin Date: 04/21/25Time:2135 Calcium 8.8 8.4 - 10.2 mg/dL [facility] Bilirubin, Total 0.1 0.0 - 1.0 mg/dL [facility] Aspartate Amino Transferase 17 5 - 31 U/L [facility] Alanine Aminotransferase 20 0 - 31 U/L [facility] Total Protein 6.7 6.5 - 8.0 g/dL [facility] Albumin Level 3.9 3.5 - 5.0 g/dL [facility] Alkaline Phosphatase 103 39 - 117 U/L [facility] 04/21/2025 8:59 PM EDT 04/21/2025 9:09 PM EDT us Generic External Data Provider LAB BLOOD ORDERAB LES Final Result Performing Organization Address City/State/[facility] Co de Phone Number [facility] [address] [place] [phone] * XR Ribs 3 Views Left w/ Chest (04/21/2025 7:31 PM EDT) Anatomical Region Laterality Modality Radiographic Stephanie ging 04/21/2025 7:31 PM EDT Narrative 04/21/2025 7:32 PM EDT [address] [address] XRay Report Signed Patient: Emily Tucker MR#: [id number] 3606 : 1970 Acct:[id number] Age/Sex: 54 / F ADM Date: 04/21/25 Loc: .ED Attending Dr: Ordering Physician: Carmelo Coronado MD Date of Service: 04/21/25 Procedure(s): XR ribs LT min 3V w CXR1V Accession Number(s): [id number] cc: [facility]; Carmelo Coronado MD CLINICAL HISTORY: fall,pain 4 view, chest and left ribs Comparison: CR/SR - XR CHEST 1 VIEW - 06/26/24 12:10 EDT Findings: Bones intact. No dislocations. The visualized lungs are normal. IMPRESSION: No acute rib fractures. This document has been electronically signed by: Jalen Mayberyr MD on 04/21/2025 19:31:01 Dictated By: Jalen Mayberry MD Signed By: <Electronically signed by Jalen Mayberry MD in OV> 04/21/251930 DD/ 30 TD/TT: 04/21/251930 Assistant Professor Of Spanish: Procedure Note Donotuseinterpreter, Image - 04/21/2025 [place] [address] XRay Report Signed Patient: Emily TuckerMR#: [id number] 3606 : 1970Acct:[id number] Age/Sex: 54 / FADM Date: 04/21/25 Loc: HO.ED Attending Dr: Ordering Physician: Carmelo Coronado MD Date of Service: 04/21/25 Procedure(s): XR ribs LT min 3V w CXR1V Accession Number(s): [id number] cc: [facility]; Carmelo Coronado MD CLINICAL HISTORY: fall,pain [...] in OV> 04/21/251930 DD/ 30 TD/TT: 04/21/251930 Assistant Professor Of Spanish: [facility] External Provider IMG XR PROCEDURES Final Result * XR Ankle 3+ Views Right (04/21/2025 6:54 PM EDT) Anatomical Region Laterality Modality Lower Extremities, Ankle Right Radiogr aphic Imaging 04/21/2025 6:54 PM EDT Narrative 04/21/2025 6:56 PM EDT [address] [address] XRay Report Signed Patient: Emily Tucker MR#: [id number] 3606 : 1970 Acct:[id number] Age/Sex: 54 / F ADM Date: 04/21/25 Loc: HO.ED Attending Dr: Ordering Physician: Rosina Amin Date of Service: 04/21/25 Procedure(s): XR ankle RT min 3V Accession Number(s): [id number] cc: Rosina Amin; [facility] CLINICAL HISTORY: pain, injury 3 view [...] in OV> 04/21/251854 DD/ 53 TD/TT: 04/21/251853 Assistant Professor Of Spanish: Procedure Note Donotuseinterpreter, Image - 04/21/[address] [address] XRay Report Signed Patient: Emily TuckerMR#: [id number] 3606 : 1970Acct:[id number] Age/Sex: 54 / FADM Date: 04/21/25 Loc: HO.ED Attending Dr: Ordering Physician: Rosina Amin Date of Service: 04/21/25 Procedure(s): XR ankle RT min 3V Accession Number(s): [id number] cc: Rosina Amin; [facility] CLINICAL HISTORY: pain, injury 3 view [...] in OV> 04/21/251854 DD/ 53 TD/TT: 04/21/251853 Assistant Professor Of Spanish: [facility] External Provider IMG XR PROCEDURES Final Result * XR Hip 2 or 3 Views Left (04/21/2025 6:54 PM EDT) Anatomical Region Laterality Modality Lower Extremities, Hip Left Radiograp hic Imaging 04/21/2025 6:54 PM EDT Narrative 04/21/2025 6:56 PM EDT [place] [address] XRay Report Signed Patient: Emily Tucker MR#: [id number] 3606 : 1970 Acct:[id number] Age/Sex: 54 / F ADM Date: 04/21/25 Loc: HO.ED Attending Dr: Ordering Physician: Rosina Amin Date of Service: 04/21/25 Procedure(s): XR hip LT min 2V Accession Number(s): [id number] cc: Rosina Amin; [facility] CLINICAL HISTORY: pain, injury 3 view, [...] in OV> 04/21/251854 DD/ 53 TD/TT: 04/21/251853 Assistant Professor Of Spanish: Procedure Note Donotyonisinterpreter, Image - 04/21/[address] [address] XRay Report Signed Patient: Emily TuckerMR#: [id number] 3606 : 1970Acct:[id number] Age/Sex: 54 / FADM Date: 04/21/25 Loc: HO.ED Attending Dr: Ordering Physician: Rosina Amin Date of Service: 04/21/25 Procedure(s): XR hip LT min 2V Accession Number(s): [id number] cc: Rosina Amin; [facility] CLINICAL HISTORY: pain, injury 3 view, [...] in OV> 04/21/251854 DD/ 53 TD/TT: 04/21/251853 Assistant Professor Of Spanish: [facility] External Provider IMG XR PROCEDURES Final Result * CT Cervical Spine w/o Contrast (04/21/2025 6:42 PM EDT) Anatomical Region Laterality Modality Spine, C-spine Computed Tomogra phy 04/21/2025 6:42 PM EDT Narrative 04/21/2025 6:43 PM EDT [address] [address] [address] Scan Report Signed Patient: Emily Tucker MR#: [id number] 3606 : 1970 Acct:[id number] Age/Sex: 54 / F ADM Date: 04/21/25 Loc: HO.ED Attending Dr: Ordering Physician: Rosina Amin Date of Service: 04/21/25 Procedure(s): CT cervical spine wo IV con Accession Number(s): [id number] cc: Rosina Amin; [facility] Report Number: [id number]: Total DLP = 529.88 mGy-cm CLINICAL HISTORY: [...] C6-C7. Diffuse spinal canal narrowing, for example [id number] at C4-C5 with severe left and moderate [...] in OV> 04/21/251841 DD/ 41 TD/TT: 04/21/251841 Assistant Professor Of Spanish: Procedure Note Donotuseinterpreter, Image - 04/21/[address] [place] [address] [address] Scan Report Signed Patient: Emily TuckerMR#: [id number] 3606 : 1970Acct:[id number] Age/Sex: 54 / FADM Date: 04/21/25 Loc: HO.ED Attending Dr: Ordering Physician: Rosina Amin Date of Service: 04/21/25 Procedure(s): CT cervical spine wo IV con Accession Number(s): [id number] cc: Rosina Amin; [facility] Report Number: [id number]: Total DLP = 529.88 mGy-cm CLINICAL HISTORY: [...] C6-C7. Diffuse spinal canal narrowing, for example jygy-gq-emiurtgu at C4-C5 with severe left and moderate [...] in OV> 04/21/251841 DD/ 41 TD/TT: 04/21/251841 Assistant Professor Of Spanish: [facility] External Provider IMG CT PROCEDURES Final Result * CT Head w/o Contrast (04/21/2025 6:38 PM EDT) Anatomical Region Laterality Modality Head, Neck Computed Tomogra phy 04/21/2025 6:38 PM EDT Narrative 04/21/2025 6:40 PM EDT [place] [address] CT Scan Report Signed Patient: Emily Tucker MR#: [id number] 3606 : 1970 Acct:[id number] Age/Sex: 54 / F ADM Date: 04/21/25 Loc: HO.ED Attending Dr: Ordering Physician: Rosina Amin Date of Service: 04/21/25 Procedure(s): CT head/brain wo IV con Accession Number(s): [id number] cc: Rosina Amin; [facility] Report Number: [id number]: Total DLP = 676.58 mGy-cm CLINICAL HISTORY: [...] in OV> 04/21/251838 DD/ 37 TD/TT: 04/21/251837 Assistant Professor Of Spanish: Procedure Note Donotuseinterpreter, Image - 04/21/[address] [place] [address] [address] Scan Report Signed Patient: Malcolm Tucker#: [id number] 3606 : 1970Acct:[id number] Age/Sex: 54 / FADM Date: 04/21/25 Loc: HO.ED Attending Dr: Ordering Physician: Rosina Amin Date of Service: 04/21/25 Procedure(s): CT head/brain wo IV con Accession Number(s): [id number] cc: Rosina Amin; [facility] Report Number: [id number]: Total DLP = 676.58 mGy-cm CLINICAL HISTORY: [...] in OV> 04/21/251838 DD/ 37 TD/TT: 04/21/251837 Assistant Professor Of Spanish: [facility] External Provider IMG CT PROCEDURES Final Result * (ABNORMAL) Lipid Panel with Reflex to Direct LDL (01/14/2025 11:56 AM EDT) Triglycerides 133 <150 mg/dL [facility] Comment:Desirable Triglyceri de: less than 150 mg/dLBorderline High Triglyceride 150-199 mg/dLHigh Triglyceride: 200-499 mg/dLVery High Triglyceride: greater than or equal to 5OO mg/dL Cholesterol 226(H) <200 mg/dL [facility] Comment:Desirable Cholestero l: less than 200 mg/dLBorderline High Cholesterol: 200-239 mg/dLHigh Cholesterol: greater than 239 mg/dL LDL Cholesterol Calculated 116(H) <100 mg/dL [facility] Comment:Desirable LDL: less than 100 mg/dLNear Optimal/Above Optimal LDL: 110- 129 mg/dLBorderline High LDL: 130-159 mg/dLHigh LDL: 160-189 mg/dLVery High LDL: greater than or equal to 190 mg/dL HDL Cholesterol 84 >40 mg/dL [facility] Comment:Desirable HDL: great er than 40 mg/dL Note: This HDL assay may give artificially low results in patients with liver disease. Blood 01/14/2025 11:5 6 AM EDT 01/14/2025 1:25 PM EDT us Tyesha Houston MD LAB BLOOD ORDERABLES Final Resul t [facility] [address] [place] [phone] * (ABNORMAL) Albumin, Random Urine W/Creatinine (01/14/2025 11:56 AM EDT) Creatinine, Urine 158.99 mg/dL [facility] Microalbumin Urine 66.0 mg/L [facility] Microalbum Creatinine Ratio Ur 41.5(H) <30 ug/mg cr [facility] Comment:Albumin/Creatinine R atio Reference Ranges: Normal: < 30 ug/mg creatinine Microalbuminuria: 30 - 300 ug/mg creatinineClinical Albuminuria: > 300 ug/mg creatinine Urine 01/14/2025 11:5 6 AM EDT 01/14/2025 1:07 PM EDT Tyesha Houston MD LAB URINE ORDERABLES Final Resul t Performing Organization Address [facility]/ZIP Co de Phone Number [facility] [address] [place] [phone] * Hepatitis C Antibody with Reflex to HCV, RNA, Quantitative, Real-Time PCR (01/14/2025 11:56 AM EDT) Hepatitis C Antibody Nonreactive Nonreactive [facility] Comment:Antibodies to HCV no t detected; does not exclude early acuteHCV infection. Blood Venous blood specimen / Unknown 01/14/2025 11:56 AM EDT 01/14/2025 1:25 PM EDT Tyesha Houston MD LAB BLOOD ORDERABLES Final Resul t Performing Organization Address [facility]/ZIP Co de Phone Number [facility] [address] [place] [phone] * HIV-1/2 Antigen and Antibodies, Fourth Generation, with Reflexes (01/14/2025 11:56 AM EDT) HIV AB/AG Nonreactive Nonreactive [facility] Comment:HIV-1 p24 Ag and/or HIV-1/HIV-2 Ab not detected.A test result that is nonreactive does not exclude thepossibility of exposure to or infection with HIV-1 and/orHIV-2. Nonreactive results in this assay for individualswith prior exposure to HIV-1 and/or HIV-2 may be due toantigen and antibody levels that are below the limit ofdetection of this assay.The [employer] HIV Ag/Ab Combo assay result andsupplemental assay results should be interpreted inconjunction with the patient's clinical presentation,history and other laboratory results. If the results areinconsistent with clinical evidence, additional testing issuggested to confirm the result. Blood Venous blood specimen / Unknown 01/14/2025 11:56 AM EDT 01/14/2025 1:25 PM EDT Tyesha Houston MD LAB BLOOD ORDERABLES Final Resul t [facility] [address] [place] [phone] * (ABNORMAL) POCT glycosylated hemoglobin (Hgb [...] mRNA E6/E7 rflx Not Detected Not Detected [facility] Comment: This test was performed using the APTIMA HPV Assay ([employer] This assay detects E6/E7 viral messenger RNA (mRNA) from 14 high-risk HPV types (16,18,31,33,35,39,45,51,52,56,58,59,66,68). The analytical performance characteristics of this assay have been determined by [email or web address]. The modifications have not been cleared or approved by the FDA. This assay has been validated pursuant to the CLIA regulations and is used for clinical purposes. THIS TEST WAS PERFORMED AT: [facility] [address] [place] [address] [address],[place] [address] ALDA NIXON MD 08/25/2020 11:4 5 AM EST Sarina Ann HISTORICAL/NON ORDERABLE LABS Fi nal Result [facility] [address] * Mammography Report 1 (07/24/2020 10:40 [...] Most Recently Relevant to Health Maintenance Insurance [employer] C3 Care Teams Circular Stuffer Relationship Specialty Start Date End Date Tyesha Houston MD [address] [place] [phone] PCP - General Family Medicine 04/25/19
--- OUTSIDE RECORDS SUMMARY | 2025-05-30 11:34 | XMS_ITS | Encounter Summary ---
Author Organization [employer] Address [address] [facility] 7 [place] [address] Care Team Providers Care Clerk Rating Name Role Phone Tyesha Rogers MD Primary Care Provider Reason for Visit * Reason Onset Date Comments Nurse Triage 07/04/2023 Encounter Details Date Type Department Care Team ([facility] st Contact Info) Description 07/04/2023 Telephone [facility] MEDICINE [address] [place], [place] [phone] Tyesha Rogers MD [address] [place] [address] Nurse Triage Social History Tobacco Use Types [...] supposed to start the suboxone program at [facility] but, missedher appt. In May [...] on her way to Walk in at [facility]. I will send this note oliverio in [place] to let them know that pt. Will need a [facility] counselor present for appt. Pt. States that she will arrive to [facility] walk in around 1-130pm. Pt. [...] Description 06/02/2025 9:00 AM EDT Office Visit [facility] MEDICINE [address] [place] [address] Tyesha Rogers MD [address] [place] [address] 06/24/2025 9:00 AM EDT Office Visit [facility] OPTOMETRY [address] [place] [address] Katharine Carbone OD 230 [place] [address] documented as of this encounter Visit Diagnoses Not on filedocumented in this encounter Additional Health Concerns Assessment Noted Time PHQ-9 Depression Total Score: 9 08/18/20 22 11:40 AM EST documented as of this encounter Care Teams Clerk Rating Relationship Specialty Start Date End Date Tyesha Rogers MD [address] [place] [address] PCP - General Family Medicine 04/25/19 documented as of this encounter
--- OUTSIDE RECORDS SUMMARY | 2025-05-30 11:34 | XMS_ITS | Encounter Summary ---
Author Organization [employer] Address 75 [facility] 7t [place] [address] Care Team Providers Care General Lithographic Worker Name Role Phone Tyesha Rogers MD Primary Care Provider [phone] Encounter Details Date Type Department Care Team (Late st Contact Info) Description 06/05/2024 Orders Only [facility] [address] [place], [place] [phone] Henry Choi MD [address] [place] [address] Social History Tobacco Use Types Packs/Day Years [...] [facility] MEDICINE [address] [place] [address] Tyesha Rogers MD [address] [place] [address] 06/24/2025 9:00 AM EDT Office Visit [facility] OPTOMETRY [address] [place], [place] [phone] Raf, Katharine, OD [address] [place] [address] documented as of this encounter Visit Diagnoses Not on filedocumented in this encounter Additional Health Concerns Assessment Noted Time PHQ-9 Depression Total Score: 24 024 10:42 AM EDT documented as of this encounter Care Teams General Lithographic Worker Relationship Specialty Start Date End Date Tyesha Rogers MD [address] [place], [place] [phone] PCP - General Family Medicine 04/25/19 documented as of this encounter
--- OUTSIDE RECORDS SUMMARY | 2025-05-30 11:34 | XMS_ITS | Encounter Summary ---
Author Organization [employer] Address 75 [facility] 7 [place] [address] Care Team Providers Care Transport Rn Name Role Phone Tyesha Rogers MD Primary Care Provider [phone] Reason for Visit * Reason Onset Date Comments Hospital Follow-up 05/29/2024 Encounter Details Date Type Department Care Team (Late st Contact Info) Description 05/29/2024 Telephone [facility] MEDICINE [address] [place], [place] [phone] Tyesha Rogers MD [address] [place] [address] Hospital Follow-up Social History Tobacco Use Types [...] from pt requesting a HDF appt. Hospital: [facility] Date of admission: 05/28/24 Discharge date: 05/29/24 Diagnosed: urticaria documented in this encounter Plan of Treatment Upcoming Encounters Date Type Department Care Team (Late st Contact Info) Description 06/02/2025 9:00 AM EDT Office Visit [facility] MEDICINE [address] [place] [address] Tyesha Rogers MD [address] [place] [address] 06/24/2025 9:00 AM EDT Office Visit [facility] OPTOMETRY [address] [place] [address] Katharine Carbone OD [address] [place] [address] documented as of this encounter Visit Diagnoses Not on filedocumented in this encounter Additional Health Concerns Assessment Noted Time PHQ-9 Depression Total Score: 24 024 10:42 AM EDT documented as of this encounter Care Teams Transport Rn Relationship Specialty Start Date End Date Tyesha Rogers MD [address] [place] [address] PCP - General Family Medicine 04/25/19 documented as of this encounter
--- OUTSIDE RECORDS SUMMARY | 2025-05-30 11:34 | XMS_ITS | Encounter Summary ---
Author Organization [employer] Address [address] [place] [address] [address]t [place] [address] Care Team Providers Care Loss Prevention/Safety District Manager Name Role Phone Tyesha Rogers MD Primary Care Provider [phone] Encounter Details Date Type Department Care Team (Late st Contact Info) Description 10/10/2022 Orders Only [facility] MEDICINE [address] [place], [place] [phone] Tyesha Rogers MD [address] [place], [place] [phone] Hypothyroidism, unspecified type (Primary Dx); Elevated TSH; [...] Description 06/02/2025 9:00 AM EDT Office Visit [facility] MEDICINE [address] [place] [address] Tyesha Rogers MD [address] [place], [place] [phone] 06/24/2025 9:00 AM EDT Office Visit [facility] OPTOMETRY [address] [place], [place] [phone] Raf, Katharine, OD [address] [place], [place] [phone] Scheduled Orders Name Type Priority Associated Diagnoses [...] documented as of this encounter Care Teams Loss Prevention/Safety District Manager Relationship Specialty Start Date End Date Tyesha Rogers MD [address] [place], [place] [phone] PCP - General Family Medicine 04/25/19 documented as of this encounter
--- OUTSIDE RECORDS SUMMARY | 2025-05-30 11:34 | XMS_ITS | Encounter Summary ---
Author Organization [employer] Address 75 [facility] 7t [place] [address] Care Team Providers Care E Business Consultant Name Role Phone Tyesha Rogers MD Primary Care Provider [phone] Reason for Visit * Reason Comments Med Refill Encounter Details Date Type Department Care Team ([facility] st Contact Info) Description 04/24/2024 Refill [facility] MEDICINE [address] [place], [place] [phone] Tyesha Rogers MD 230 [place], [place] [phone] Vitamin D deficiency; Hypothyroidism, unspecified type Social [...] requests. This patient is currently living in [place]. She left [facility]. Please seen Dr. Grimes's note in February 2024. Thank you documented in this encounter Plan of Treatment Upcoming Encounters Date Type Department Care Team (Late st Contact Info) Description 06/02/2025 9:00 AM EDT Office Visit [facility] MEDICINE [address] [place] [address] Tyesha Rogers MD [address] [place] [address] 06/24/2025 9:00 AM EDT Office Visit [facility] OPTOMETRY [address] [place] [address] Katharine Carbone, ZAHIDA [address] [place] [address] documented as of this encounter Visit Diagnoses Diagnosis Vitamin D deficiency Hypothyroidism, unspecified type documented in this encounter Additional Health Concerns Assessment Noted Time PHQ-9 Depression Total Score: 21 024 10:41 AM EDT documented as of this encounter Care Teams E Business Consultant Relationship Specialty Start Date End Date Tyesha Rogers MD [address] [place] [address] PCP - General Family Medicine 04/25/19 documented as of this encounter
--- OUTSIDE RECORDS SUMMARY | 2025-05-30 11:34 | XMS_ITS | Encounter Summary ---
Author Organization [employer] Address [address] [facility] 7t [place] [address] Care Team Providers Care Regional Wildlife Agent Name Role Phone Tyesha Rogers MD Primary Care Provider [phone] Reason for Visit * Reason Comments Med Refill Encounter Details Date Type Department Care Team ([facility] st Contact Info) Description 01/22/2024 Refill [facility] MEDICINE [address] [place], [place] [phone] Tyesha Rogers MD 230 [place], [place] [phone] Other chronic pain Social History Tobacco Use [...] 9:00 AM EDT Office Visit [facility] MEDICINE [address] [place] [address] Tyesha Rogers MD [address] [place] [address] 06/24/2025 9:00 AM EDT Office Visit [facility] OPTOMETRY [address] [place] [address] Raf, Katharine, OD [address] [place] [address] documented as of this encounter Visit Diagnoses Diagnosis Other chronic pain documented in this encounter Additional Health Concerns Assessment Noted Time PHQ-9 Depression Total Score: 21 024 10:41 AM EDT documented as of this encounter Care Teams Regional Wildlife Agent Relationship Specialty Start Date End Date Tyesha Rogers MD [address] [place] [address] PCP - General Family Medicine 04/25/19 documented as of this encounter
--- OUTSIDE RECORDS SUMMARY | 2025-05-30 11:34 | XMS_ITS | Encounter Summary ---
Author Organization [employer] Address [address] [facility] 7 [place] [address] Care Team Providers Care Game Master Name Role Phone Tyesha Rogers MD Primary Care Provider [phone] Reason for Visit * Reason Onset Date Comments New Med Request 05/03/2024 Medication Question 05/03/2024 Encounter Details Date Type Department Care Team ([facility] st Contact Info) Description 05/03/2024 Telephone [facility] MEDICINE [address] [place], [place] [phone] Tyesha Rogers MD [address] [place] [address] New Med Request; Medication Question Social History [...] pt is no longer a patient at [facility] due to move and because the medications were prescribed by her psychiatrist,she should reach out to psychiatrist for these medications. Patient stated she is moving back to [place], date unknown, mortgage or loan underwriter again advised pt to contact psychiatrist as [...] medication for anxiety will be flying from [facility] on 05/14 and would like it to be sent to [facility] Address: [address] [place] [address] documented in this encounter Plan of Treatment Upcoming Encounters Date Type Department Care Team (Late st Contact Info) Description 06/02/2025 9:00 AM EDT Office Visit [facility] MEDICINE [address] [place] [address] Tyesha Rogers MD [address] [place] [address] 06/24/2025 9:00 AM EDT Office Visit [facility] OPTOMETRY [address] [place], [place] [phone] Katharine Carbone, OD [address] [place] [address] documented as of this encounter Visit Diagnoses Not on filedocumented in this encounter Additional Health Concerns Assessment Noted Time PHQ-9 Depression Total Score: 21 04/ 024 10:41 AM EDT documented as of this encounter Care Teams Game Master Relationship Specialty Start Date End Date Tyesha Rogers MD [address] [place], [place] [phone] PCP - General Family Medicine 04/25/19 documented as of this encounter
[2025-05-30 11:36] LABS: Carbon Dioxide 23 mmol/L (22-29); Chloride 99 mmol/L (96-108); Potassium 3.7 mmol/L (3.3-5.1); Sodium 131 mmol/L (135-145)
[2025-05-30 11:37] LABS: Alanine Aminotransferase 46 U/L (0-31); Albumin Level 4.4 g/dL (3.5-5.0); Alkaline Phosphatase 90 U/L (39-117); Anion Gap 13 (12-20); Aspartate Amino Transferase 90 U/L (5-31); Blood Urea Nitrogen 25 mg/dL (9-16); Calcium 8.8 mg/dL (8.4-10.2); Creatinine Clr Calc Pharmacy 58.1; Estimated Glomerular Filt Rate 54; Magnesium 1.8 mg/dL (1.6-2.6); Total Protein 7.3 g/dL (6.5-8.0)
[2025-05-30 11:41] LABS: Acetaminophen LAB < 3 mcg/mL (<30); Salicylate < 5.0 mg/dL (15-30)
[2025-05-30 11:43] VITALS: BP 146/81; PULSE 96; RESP 13; TEMP 36.4; O2SAT 95
[2025-05-30 11:44] LABS: Troponin-I High Sensitivity 12.4 ng/L (<3.5-17.0)
[2025-05-30 12:09] LABS: D Dimer High Sensitivity 271 NG/ML
[2025-05-30 12:19] LABS: VBG HCO3 19 mmol/L (22-26); VBG O2 % Saturation 99.0 %
[2025-05-30 12:20] LABS: Venous Blood Gas Refer to POC result
--- NOTE | 2025-05-30 13:58 | PM.IMHP ---
History of Present Illness Date of Service: 05/30/25 Attending physician on admission: Petra Reza Chief Complaint: chest pain This is a 54-year-old female who presented to the emergency department with chest pain. Patient reports for the past 3 days she has been trying to smoke enough cocaine to end her life. She presented in the emergency department with chest pressure with associated shortness of breath and palpitations. She has not taken any of her medications in the past 3 days. In the emergency department her blood sugar was elevated at 503, creatinine increased to 1.07, LFTs elevated at 90 and 46. Total creatinine kinase 3627. Initial troponin 12.4 which is lower than previous. There was no evidence of DKA. Urinalysis concerning for possible UTI. Patient received IV ceftriaxone, IV fluid, pain medication, antiemetics and insulin. Overall her chest pain is beginning to improve since arrival in the emergency department. Review of Systems Review of Systems: Yes all other systems are reviewed and are negative Constitutional: Constitutional: Denies chills and Denies fever(s) ENT: Denies dizziness Cardiovascular: Cardiovascular: Reports chest pain and Reports palpitations Neurologic: Denies dizziness Endocrine: Endocrine: Reports palpitations [facility] Medical History Multiple sclerosis exacerbation Excoriation (skin-picking) disorder Back pain GERD (gastroesophageal reflux disease) Peripheral neuropathy PTSD (post-traumatic stress disorder) Mood disorder Elevated cholesterol Fibromyalgia Chronic back pain DDD (degenerative disc disease) Ovarian cyst Kidney stone Normal colonoscopy Lesion of bladder Suicide attempt Depression IBS (irritable bowel syndrome) Obesity (BMI 30-39.9) Endometriosis History of pulmonary embolus (PE) History of DVT (deep vein thrombosis) Diabetes mellitus Asthma HTN (hypertension) Anxiety Multiple sclerosis Family History Mother Rheumatoid arteritis COPD (chronic obstructive pulmonary disease) Father HTN (hypertension) Diabetes mellitus Surgical History History of lithotripsy History of cystoscopy S/P endometrial ablation H/O neck surgery Hx of dilation and curettage Hx of tubal ligation Hx of appendectomy Hx of cholecystectomy Social History Household Members: None Housing: Apartment Do you presently have visiting nurse or other home services: No Alcohol intake: current Alcohol intake frequency: holidays/special occasions only Comment: on 5 min checks for safety after episode today Patient Tobacco Use Status: Current everyday Tobacco user Tobacco use type: Cigarette Cigarette Packs Per Day: 1 Cigarettes Per Day: 20.0 Years Smoked: 39 Smoked in Last 30 Days: Yes e-Cigarette/Vaping Use: Currently Using Second Hand Smoke Exposure: No Use of substances other than those prescribed or required for medical reasons: Yes Substance Use Type: Crack/Cocaine Advance Directives: Yes Advance Directives on File: Yes Advance Directives Date on File: 05/18/23 Do you have a plan to hurt others: No Plan Patient : No service: No Sexual orientation: Straight/Heterosexual Gender identity: Female Meds Allergies Allergy/AdvReac Type Severity Reaction Status Date / Time Iodinated Contrast Media (IV Allergy Severe THROAT Verified 05/30/25 10:47 CONTRAST) CLOSING tomato (TOMATO) Allergy Severe Anaphylaxis Verified 05/30/25 11:22 lithium (LITHIUM) Allergy Intermediate AGGRESSION, Verified 05/30/25 10:47 stiffened up & throat closing (moderate to severe) asparagus (ASPARAGUS) Allergy Mild Rash Verified 05/30/25 11:22 fluoxetine (FLUOXETINE) Allergy Mild ITCHING, Verified 05/30/25 10:47 Suicidal risperidone (From RISPERDAL) Allergy Mild ITCHING Verified 05/30/25 10:47 divalproex sodium (From Allergy Unknown UNKNOWN, Verified 05/30/25 10:47 DEPAKOTE) stiffened up, locked jaw lisinopril (LISINOPRIL) Allergy Unknown COUGH Verified 05/30/25 10:47 olanzapine Allergy Unknown can't Verified 05/30/25 10:47 recall if hives or increased pollen extracts (POLLEN) Allergy Unknown unknown Verified 05/30/25 10:47 quetiapine (From SEROQUEL) AdvReac Intermediate OVERSEDATIO Verified 05/30/25 10:47 N TOMATO Allergy Severe Anaphylaxis Uncoded 05/30/25 11:22 BROCCOLI Allergy Mild Rash Uncoded 05/30/25 11:22 GREEN CHEUNG Allergy Mild Rash Uncoded 05/30/25 11:22 FUMARATE Allergy Unknown Unknown Uncoded 05/26/25 12:03 Active Medications: Current Medications Sodium Chloride (0.9 % Sodium Chloride Flush 3 Ml Syringe) 3 ml IVFLUSH QSHI Home Medications ?Medication ?Instructions ?Recorded ?Confirmed ?Last Taken ?Type apixaban 5 mg tablet (Eliquis) 5 mg PO BID 08/25/20 05/30/25 06/20/24 History atorvastatin 40 mg tablet 1 tab PO DAILY 06/07/22 05/30/25 06/20/24 History losartan 100 mg tablet 100 mg PO DAILY 06/07/22 05/30/25 06/20/24 History metformin 500 mg tablet,extended 1,000 mg PO BID 05/11/23 05/30/25 06/20/24 History release 24 hr insulin lispro 100 unit/mL 8 - 16 sliding scale dose subcut 05/28/24 05/30/25 06/20/24 History subcutaneous pen TIDAC levothyroxine 25 mcg tablet 25 mcg PO DAILY@0600 05/28/24 07/17/24 06/20/24 History acetaminophen 500 mg tablet 1,000 mg PO Q8H PRN moderate pain 04/22/25 05/30/25 Unknown History atomoxetine 18 mg capsule 18 mg PO DAILY 04/22/25 05/30/25 Unknown History bisacodyl 5 mg tablet,delayed 5 mg PO DAILY PRN constipation 04/22/25 05/30/25 Unknown History release clonidine HCl 0.1 mg tablet 0.1 mg PO TID PRN Anxiety 04/22/25 05/30/25 Unknown History doxepin 25 mg capsule 25 mg PO BEDTIME PRN Sleep 04/22/25 05/30/25 Unknown History fluconazole 150 mg tablet 150 mg PO WE 04/22/25 05/30/25 Unknown History insulin degludec 100 unit/mL (3 30 unit subcut DAILY 04/22/25 05/30/25 Unknown History mL) subcutaneous pen (Tresiba FlexTouch U-100 insulin) methocarbamol 750 mg tablet 750 - 1,500 mg PO TID PRN muscle 04/22/25 05/30/25 Unknown History spasm prazosin 1 mg capsule 1 mg PO BEDTIME 04/22/25 05/30/25 Unknown History sertraline 25 mg tablet 25 mg PO DAILY 04/22/25 05/30/25 Unknown History amlodipine 10 mg tablet 10 mg PO DAILY 05/30/25 05/30/25 Unknown History doxycycline hyclate 100 mg capsule 100 mg PO BID 05/30/25 05/30/25 Unknown History hydrochlorothiazide 12.5 mg tablet 12.5 mg PO DAILY 05/30/25 05/30/25 Unknown History Physical Exam Vital Signs and Narrative: Vital Signs: Last Vital Signs Temp 97.6 F 05/30/25 11:43 Pulse 96 05/30/25 11:43 Resp 13 05/30/25 11:43 BP 146/81 H 05/30/25 11:43 Pulse Ox 95 05/30/25 11:43 O2 Del Method Room Air 05/30/25 11:43 BMI result Body Mass Index 30.1 Const: General: cooperative, alert and awake Nutritional Appearance: overweight Orientation/consciousness: patient oriented x3 Resp: Effort & Inspection: normal respiratory effort, able to speak in complete sentences, no respiratory distress and no use of accessory muscles Cardio: Rate: regular rate GI: Inspection: No distended Palpation (GI): Soft to palpation Neuro: General: patient oriented x3, moves all extremities and CN's II-XI intact bilaterally Results Labs 05/30/25 11:09 05/30/25 11:09 Labs: Laboratory Results - last 24 hr 05/30/25 05/30/25 05/30/25 10:33 11:09 12:00 MCV 83.2 MCH 29.9 MCHC 36.0 H RDW 12.6 Plt Count 255 MPV 10.1 Immature Gran % (Auto) 0.5 H Neut % (Auto) 77.8 H Lymph % (Auto) 15.5 L [place] % (Auto) 5.3 Eos % (Auto) 0.4 Baso % (Auto) 0.5 Lymph # (Auto) 2.2 [place] # (Auto) 0.8 Eos # (Auto) 0.1 Baso # (Auto) 0.1 Abs Immat Gran (auto) 0.07 H Absolute Neuts (auto) 11.0 H Absolute Nucleated RBC 0.000 Nucleated RBC % (auto) 0.0 PT 12.0 INR 1.0 D-Dimer High Sensitivty 271 VBG pH VBG pCO2 VBG pO2 VBG HCO3 VBG O2 Saturation VBG Base Excess Anion Gap 13 Estim Creat Clear Calc 58.1 Estimated GFR 54 Random Glucose 503 H* Calcium 8.8 Magnesium 1.8 Total Bilirubin 1.0 AST 90 H ALT 46 H Alkaline Phosphatase 90 Total Creatine Kinase 3627 H Troponin I High Sens 12.4 Total Protein 7.3 Albumin 4.4 Beta-Hydroxybutyrate 1.93 H Urine Color Yellow Urine Appearance Cloudy Urine pH 5.0 Ur Specific Lester >= 1.030 H Urine Protein 100 (2+) H Urine Glucose (UA) >=1000 H Urine Ketones 15 Urine Blood Moderate (2+) H Urine Nitrite Negative Ur Leukocyte Esterase Negative Urine RBC 3-5 H Urine WBC 0-5 Ur Squamous Epith Cells 11-20 Urine Bacteria 2+ Hyaline Casts 6-10 Granular Casts Present Urine Yeast Present Urine Test NEGATIVE Salicylates < 5.0 L Urine Opiates Screen Not Detected Ur Buprenorphine Scrn Not Detected Ur Oxycodone Screen Not Detected Urine Methadone Screen Not Detected Urine Fentanyl Screen Not Detected Acetaminophen < 3 Ur Barbiturates Screen Not Detected Ur Phencyclidine Scrn Not Detected Ur Amphetamines Screen Not Detected U Benzodiazepines Scrn Not Detected Urine Cocaine Screen POSITIVE H U Marijuana (THC) Screen Not Detected Ethyl Alcohol < 10 05/30/25 12:15 MCV MCH MCHC RDW Plt Count MPV Immature Gran % (Auto) Neut % (Auto) Lymph % (Auto) [place] % (Auto) Eos % (Auto) Baso % (Auto) Lymph # (Auto) [place] # (Auto) Eos # (Auto) Baso # (Auto) Abs Immat Gran (auto) Absolute Neuts (auto) Absolute Nucleated RBC Nucleated RBC % (auto) PT INR D-Dimer High Sensitivty VBG pH 7.39 VBG pCO2 30 VBG pO2 101 VBG HCO3 19 L VBG O2 Saturation 99.0 VBG Base Excess -4.4 Anion Gap Estim Creat Clear Calc Estimated GFR Random Glucose Calcium Magnesium Total Bilirubin AST ALT Alkaline Phosphatase Total Creatine Kinase Troponin I High Sens Total Protein Albumin Beta-Hydroxybutyrate Urine Color Urine Appearance Urine pH Ur Specific Lester Urine Protein Urine Glucose (UA) Urine Ketones Urine Blood Urine Nitrite Ur Leukocyte Esterase Urine RBC Urine WBC Ur Squamous Epith Cells Urine Bacteria Hyaline Casts Granular Casts Urine Yeast Urine Test Salicylates Urine Opiates Screen Ur Buprenorphine Scrn Ur Oxycodone Screen Urine Methadone Screen Urine Fentanyl Screen Acetaminophen Ur Barbiturates Screen Ur Phencyclidine Scrn Ur Amphetamines Screen U Benzodiazepines Scrn Urine Cocaine Screen U Marijuana (THC) Screen Ethyl Alcohol Imaging Radiologist's Impressions: Impressions Chest X-Ray 05/30/25 13:13 IMPRESSION: No active pulmonary disease. Electronically signed by: Dayne Nieves MD 05/30/2025 01:43 PM EDT RP Assessment and Plan (1) Cocaine abuse: Status: Acute (2) Chest pain: Status: Acute (3) Rhabdomyolysis: Status: Acute Plan This is a 54-year-old with a history of cocaine abuse who presents to the emergency department with chest pain found to have elevated CPK and LFTs Mild rhabdomyolysis with transaminitis and YANY Due to cocaine use IV fluid Trend CPK, LFTS and renal function Suicidal ideation Used cocaine intentionally to try to end her life Sitter for safety will need care team evaluation prior to discharge [place] with hyperglycemia Hyperglycemia due to medication noncompliance Hold metformin Convert Tresiba to Lantus Possible UTI Received a dose of IV ceftriaxone No symptoms Follow urine culture, if positive can continue IV antibiotics Chest pain Atypical in nature, and reproducible on exam. maybe due to cocaine use Initial troponin negative Monitor on telemetry VQ scan pending Pseudohyponatremia Due to hyperglycemia HTN Continue amlodipine Hold HCTZ for YANY Hold losartan for YANY History of DVT/PE Continue Eliquis Mood Continue sertraline, prazosin HLD Hold statin for transaminitis DVT prophylaxis-Eliquis Patient will likely require 2 midnight stay in the hospital for management of rhabdomyolysis, elevated transaminitis, YANY requiring IV fluid as well as suicidal ideation requiring specialist Quality Stroke Does the patient have a stroke diagnosis?: No VTE Prior VTE?: No VTE Risk Level:: Medical - moderate - high VTE Device Contraindication: N/A - Device Ordered VTE Drug Contraindication: N/A - Med Ordered
[2025-05-30 14:23] VITALS: BP 146/81; PULSE 96; RESP 13; TEMP 36.4; O2SAT 95
[2025-05-30] MEDS: Lactated Ringers 1,000 ML 125 ML IVCONT ×2 (14:53→21:54)
--- NOTE | 2025-05-30 15:26 | PHA.MEDREC ---
Pharmacy Consult ? Medication Reconciliation Pharmacy has completed the medication reconciliation.Med rec complete, spoke with patient and compared with pharmacy claims history. All medications have been filled recently except levothyroxine, patient confirmed she is taking but there is no claim history for over a year.
[2025-05-30] MEDS: oxyCODONE HCl Immed Release 5 MG TABLET PO (15:40)
[2025-05-30 16:41] VITALS: BP 150/82; PULSE 88; RESP 16; O2SAT 96
[2025-05-30 16:59] LABS: Glucose, Whole Blood 433 mg/dL (60-115)
[2025-05-30 17:56] VITALS: BMI 30.4; BMI 31.5
[2025-05-30 18:32] LABS: Glucose, Whole Blood 433 mg/dL (60-115)
[2025-05-30 19:27] LABS: Troponin-I High Sensitivity 10.1 ng/L (<3.5-17.0)
[2025-05-30 20:00] VITALS: BP 150/82; PULSE 81; RESP 18; TEMP 36.3; O2SAT 96
[2025-05-30 20:02] LABS: Glucose, Whole Blood 313 mg/dL (60-115)
[2025-05-31] VITALS: BP 106/59; PULSE 74; RESP 16; TEMP 36; O2SAT 98
[2025-05-31 03:18] VITALS: BP 137/81; PULSE 73; RESP 16; TEMP 36; O2SAT 99
[2025-05-31] MEDS: Lactated Ringers 1,000 ML 125 ML IVCONT ×3 (06:38→20:55)
[2025-05-31 07:32] LABS: Hematocrit 35.2 % (37.0-47.0); Hemoglobin 12.0 g/dl (12.0-16.0); Mean Corpuscular HGB Conc 34.1 g/dl (31.0-35.0); Mean Corpuscular Hemoglobin 29.1 pg (27.0-33.0); Mean Corpuscular Volume 85.4 fL (80.0-98.0); NRBC Abs Auto 0.000 X10*3/uL (0.0-0.012); NRBC Pct Auto 0.0 /100WBC (0.0-0.2); Platelet Count 196 X10*3/uL (160-400); Red Blood Count 4.12 X10*6/uL (4.20-5.50); White Blood Count 6.1 X10*3/uL (4.8-10.8)
[2025-05-31 07:38] VITALS: BP 140/79; PULSE 64; RESP 19; TEMP 36.4; O2SAT 97
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
[2025-05-31 08:14] LABS: Alanine Aminotransferase 31 U/L (0-31); Albumin Level 3.1 g/dL (3.5-5.0); Alkaline Phosphatase 97 U/L (39-117); Anion Gap 12 (12-20); Aspartate Amino Transferase 50 U/L (5-31); Blood Urea Nitrogen 17 mg/dL (9-16); Calcium 8.0 mg/dL (8.4-10.2); Carbon Dioxide 22 mmol/L (22-29); Chloride 107 mmol/L (96-108); Creatinine Clr Calc Pharmacy 83.5; Estimated Glomerular Filt Rate > 60; Potassium 4.0 mmol/L (3.3-5.1); Sodium 137 mmol/L (135-145); Total Protein 5.7 g/dL (6.5-8.0)
[2025-05-31 08:30] LABS: Glucose, Whole Blood 408 mg/dL (60-115)
[2025-05-31] MEDS: Insulin Glargine,Hum.rec.anlog 100 UNIT/ML 10 ML VIAL 21 UNIT SUBCUT (08:40)
[2025-05-31] MEDS: 0.9 % Sodium Chloride Flush 3 ML SYRINGE IVFLUSH ×2 (08:41→14:47)
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
[2025-05-31 11:03] VITALS: BP 144/76; PULSE 73; RESP 19; TEMP 36.3; O2SAT 97
[2025-05-31 11:51] LABS: Glucose, Whole Blood 300 mg/dL (60-115)
[2025-05-31 12:54] LABS: Appearance Urine Clear; Glucose Urine UA >=1000 mg/dL (Negative); PH 5.5 (5.0-9.0); Specific Gravity - Urine 1.025 (1.005-1.025); UMIC TRIGGER UACC YES
[2025-05-31] MEDS: Lidocaine 4 % Patch ADH..PATCH 2 PATCH TRANSDERMA (14:45)
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
[2025-05-31 16:00] VITALS: BP 144/84; PULSE 71; RESP 18; TEMP 36.4; O2SAT 100
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
[2025-05-31 16:42] LABS: Glucose, Whole Blood 234 mg/dL (60-115)
[2025-05-31 19:06] VITALS: BP 177/82; PULSE 69; RESP 18; TEMP 36.5; O2SAT 97
[2025-05-31 20:09] LABS: Glucose, Whole Blood 288 mg/dL (60-115)
[2025-06-01] VITALS (7 sets, daily range): BP systolic 135–148; BP diastolic 67–78; PULSE 57–74; RESP 18–20; TEMP 36.2–36.7; O2SAT 95–100
[2025-06-01] MEDS: Lactated Ringers 1,000 ML 125 ML IVCONT ×2 (04:11→13:00)
[2025-06-01 07:45] LABS: Glucose, Whole Blood 173 mg/dL (60-115)
[2025-06-01] MEDS: Insulin Glargine,Hum.rec.anlog 100 UNIT/ML 10 ML VIAL 25 UNIT SUBCUT (08:26)
[2025-06-01] MEDS: Lidocaine 4 % Patch ADH..PATCH 2 PATCH TRANSDERMA (08:32)
[2025-06-01 09:59] LABS: Anion Gap 10 (12-20); Blood Urea Nitrogen 9 mg/dL (9-16); Calcium 8.4 mg/dL (8.4-10.2); Carbon Dioxide 28 mmol/L (22-29); Chloride 104 mmol/L (96-108); Creatinine Clr Calc Pharmacy 100.9; Estimated Glomerular Filt Rate > 60; Potassium 3.2 mmol/L (3.3-5.1); Sodium 139 mmol/L (135-145)
[2025-06-01 11:50] LABS: Glucose, Whole Blood 292 mg/dL (60-115)
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
[2025-06-01 16:09] LABS: Glucose, Whole Blood 194 mg/dL (60-115)
[2025-06-01 20:23] LABS: Glucose, Whole Blood 297 mg/dL (60-115)
[2025-06-02 03:38] VITALS: BP 150/90; PULSE 75; RESP 20; TEMP 36.6; O2SAT 98
[2025-06-02 08:00] VITALS: BP 144/74; PULSE 63; RESP 17; TEMP 36.2; O2SAT 97
[2025-06-02 08:19] LABS: Glucose, Whole Blood 254 mg/dL (60-115)
[2025-06-02 08:21] VITALS: BP 144/74
[2025-06-02] MEDS: Potassium Chloride ER 20 MEQ TAB.ER.PRT PO (08:26)
[2025-06-02] MEDS: Insulin Glargine,Hum.rec.anlog 100 UNIT/ML 10 ML VIAL 25 UNIT SUBCUT (08:26)
[2025-06-02 11:21] LABS: Glucose, Whole Blood 224 mg/dL (60-115)
[2025-06-02 12:00] VITALS: BP 138/78; PULSE 72; RESP 20; TEMP 35.7; O2SAT 98
--- NOTE | 2025-06-02 13:15 | MHC.CM.PN ---
Per rounds, pt. is medically cleared and is awaiting a bed in inpatient psych.
--- NOTE | 2025-06-02 13:36 | PM.DS ---
DS: Providers Provider Date of Service: 06/02/25 Date of admission: 05/30/25 13:32 Date of discharge: 06/02/25 Primary care physician: yTesha Rogers MD Consults: 05/30/25 13:58 Consult for Sitter Routine Reason for consultation: SI 05/31/25 07:54 Addiction Medicine Provider Routine Consulting Provider: Divina Covering Reason for consultation: cocaine use Has provider been notified: No 06/01/25 09:17 Inpt CARE Team Crisis Consult Stat Comment: Reason for consultation: Med clear Attending physician on discharge: Petra Reza Discharging clinician: Petra Reza DS: Diagnosis Discharge Diagnosis (1) Acute hyperglycemia: Status: Acute DS: Summary Hospital Course Hospital Course: HPI:54-year-old female who presented to the emergency department with chest pain. Patient reports for the past 3 days she has been trying to smoke enough cocaine to end her life. She presented in the emergency department with chest pressure with associated shortness of breath and palpitations. She has not taken any of her medications in the past 3 days. In the emergency department her blood sugar was elevated at 503, creatinine increased to 1.07, LFTs elevated at 90 and 46. Total creatinine kinase 3627. Initial troponin 12.4 which is lower than previous. There was no evidence of DKA. Urinalysis concerning for possible UTI. Patient received IV ceftriaxone, IV fluid, pain medication, antiemetics and insulin. Overall her chest pain is beginning to improve since arrival in the emergency department. Hospital course: Patient was admitted to the hospital because of rhabdomyolysis, cocaine use, suicidal ideation: Rhabdomyolysis and transaminitis with YANY seems to be improved with the IV hydration. Monitor LFTs 1 week outpatient. Hold statin until repeat LFTs. Diabetes with hyperglycemia: Possibly secondary to medication noncompliance. Continue home medication regimen. Currently she is on Lantus 25 units q.day and sliding scale coverage. Pseudohyponatremia improved with glucose control. Patient had question of UTI -urine culture on 05/23: Showed staph aureus sensitive to tetracycline, complete the course of doxycycline 5 more days. Hypertension: YANY improved with hydration, Slowly introduce hydrochlorothiazide/losartan, monitor BMP closely. mild hypokalemia: Likely due to low p.o. intake and hyperglycemi: Given p.o. potassium,hypokalemia improved. repeat BMP as above. Suicidal ideation: Patient was seen by BHn and going to the psych Service today. plan: Monitor BMP and LFTs closely. Hold statin until repeat LFTs. Consider outpatient GI evaluation if LFTs still elevated. Strongly advised compliance with her insulin and diabetic medication regimen. Complete course of doxycycline as above for 5 more days. Above management discussed with the patient in detail length she understand and in agreement with the plan, time spent 45 minute, all questions answered. Patient is going to the psych Service today. Above management discussed with the patient and psych Dr. webb in detail length -assessment and plan coordination time spent 50 minute. All questions answered. Time Attestation Total time managing care of this patient today: 50 mintues. Discharge Coordination Time (in mins): 50min Quality: Safe Use of Opioids Does Pt have an Active Cancer Diagnosis on the Problem List?: No Quality: Stroke Does the patient have a stroke diagnosis?: No Physical Exam Exam: Exam: Appearance: Alert.? Oriented X3.? cvs: rrr, [id number]. res: clear to auscultation ,no rhonchii or wheezing abd: no rebound or guarding ,nt, bs present. ext pulses present , no cyanosis . neuro: axo3 , nonfocal. Vital Signs: Vital Signs: Last Vital Signs Temp 96.2 F L 06/02/25 12:00 Pulse 72 06/02/25 12:00 Resp 20 06/02/25 12:00 BP 138/78 06/02/25 12:00 Pulse Ox 98 06/02/25 12:00 O2 Del Method Room Air 06/02/25 12:00 BMI result Body Mass Index 30.4 DS: Data Data Completed and Pending Labs on day of discharge: Laboratory Results - last 24 hr 06/01/25 06/01/25 06/02/25 16:04 20:17 08:00 POC Glucose 194 H 297 H 254 H 06/02/25 11:12 POC Glucose 224 H Imaging Chest x-ray: Radiologist's impression: ITS Impressions Chest X-Ray 05/30/25 13:13 IMPRESSION: No active pulmonary disease. Pulmonary Perfusion Imaging 05/30/25 13:29 IMPRESSION: Pulmonary embolism is absent. Discharge Plan Discharge Anticipated Discharge Date/Time: 06/02/25 13:23 Patient Disposition: Xfer Psychiatric Hosp Discharge Diagnosis: Rhabdo, suicidal ideation Referrals: [facility] [Other] - 1 Day Referral Note: A referral for has been placed for the [facility] ([facility]) Please present to their office or call upon discharge for continued recovery support Tyesha Rogers MD [Primary Care Provider, Internal Medicine] - 1 Week Discharge Medications: Continued atorvastatin 40 mg tablet 1 tab PO DAILY losartan 100 mg tablet 100 mg PO DAILY albuterol sulfate [Ventolin HFA] 90 mcg/actuation Hfa Aerosol Inhaler 2 puff inhalation RQ4H PRN (Reason: wheezing) Qty: 0 0RF metformin 500 mg tablet extended release 24 hr 1,000 mg PO BID levothyroxine 25 mcg tablet 25 mcg PO DAILY@0600 insulin lispro 100 unit/mL insulin pen 8 - 16 sliding scale dose subcut TIDAC Protocol: Insulin Correction Scale Less than or equal to 110 ---- Give (units): 0 111 to 150 Give (units): 8 151 to 200 Give (units): 10 201 to 250 Give (units): 12 251 to 300 Give (units): 14 301 to 350 Give (units): 16 Greater than 350 Give (units): 0 Call MD if Blood Glucose > : 350 epinephrine 0.3 mg/0.3 mL auto-injector 0.3 mg IM Q10M PRN (Reason: anaphylaxis) Qty: 2 0RF Rx Instructions: for 2 doses doxepin 25 mg capsule 25 mg PO BEDTIME PRN (Reason: Sleep) clonidine HCl 0.1 mg tablet 0.1 mg PO TID PRN (Reason: Anxiety) fluconazole 150 mg tablet 150 mg PO WE methocarbamol 750 mg tablet 750 - 1,500 mg PO TID PRN (Reason: muscle spasm) sertraline 25 mg tablet 25 mg PO DAILY bisacodyl 5 mg tablet,delayed release (DR/EC) 5 mg PO DAILY PRN (Reason: constipation) atomoxetine 18 mg capsule 18 mg PO DAILY insulin degludec [Tresiba FlexTouch U-100] 100 unit/mL (3 mL) insulin pen 30 unit subcut DAILY prazosin 1 mg capsule 1 mg PO BEDTIME acetaminophen 500 mg tablet 1,000 mg PO Q8H PRN (Reason: moderate pain) doxycycline hyclate 100 mg capsule 100 mg PO BID Rx Instructions: patient has about 2 days left from her 5 days therapy hydrochlorothiazide 12.5 mg Tablet 12.5 mg PO DAILY amlodipine 10 mg Tablet 10 mg PO DAILY Eliquis 5 mg tablet 5 mg PO BID Discharge Orders: Discharge Order (Routine); Ordered 06/02/25 Ordered By: Petra Reza Diet: Advance to usual diet Activity on Discharge: As tolerated Stand Alone Forms: Patient Portal Discharge page Print Language: Mauritanian Care Plan Goals: Patient was admitted to the hospital because of rhabdomyolysis, cocaine use, suicidal ideation: Rhabdomyolysis and transaminitis with YANY seems to be improved with the IV hydration. Monitor LFTs 1 week outpatient. Hold statin until repeat LFTs. Diabetes with hyperglycemia: Possibly secondary to medication noncompliance. Continue home medication regimen. Pseudohyponatremia improved with glucose control. Patient had question of UTI -urine culture on 05/23: Showed staph aureus sensitive to tetracycline, complete the course of doxycycline 5 more days. Hypotension: YANY improved with hydration, Slowly introduce hydrochlorothiazide/losartan, monitor BMP in 1 week. Suicidal ideation: Patient was seen by and going to the psych Service today. Health Concerns: as above. Plan of Treatment: as above.
[2025-06-02 14:35] LABS: Potassium 3.7 mmol/L (3.3-5.1)
== END 2025-06-02 15:02 | DRG 817 ==
LOC: HO.ED 13:43 → HO.EDOVER 13:50 → HO.IMC 17:04
PROVIDERS: Internal Medicine Cardiovascular Disease; Physician Assistant; Admitting Provider Physician Assistant Medical; Emergency Provider Emergency Medicine Emergency Medical Services; PCP Family Medicine; Visit Provider Internal Medicine
DX: T40.5X2A Poisoning by cocaine, intentional self-harm, initial encounter (principal); M62.82 Rhabdomyolysis; F17.210 Nicotine dependence, cigarettes, uncomplicated; E11.65 Type 2 diabetes mellitus with hyperglycemia; N39.0 Urinary tract infection, site not specified; F43.10 Post-traumatic stress disorder, unspecified; I10 Essential (primary) hypertension; E78.5 Hyperlipidemia, unspecified; R07.9 Chest pain, unspecified; F14.10 Cocaine abuse, uncomplicated; Z91.148 Patient's other noncompliance with medication regimen for other reason; Z71.6 Tobacco abuse counseling; Z86.718 Personal history of other venous thrombosis and embolism; Z86.711 Personal history of pulmonary embolism; Z79.4 Long term (current) use of insulin; Z79.01 Long term (current) use of anticoagulants; Z79.84 Long term (current) use of oral hypoglycemic drugs; Z79.899 Other long term (current) drug therapy
CPT/HCPCS: 36415; 71045; 73564; 78580; 80048; 80053; 80076; 80143; 80179; 80307; 81001; 81025; 82010; 82550; 82803; 82947; 83735; 84132; 84484; 85025; 85027; 85379; 85610; 87086; 93005; 99285; A9540; J0696; J2270; J2405; J7120; S9485

== ENCOUNTER → 2025-05-30 10:06 | Outpatient (BNV) | payer MEDICAID, SELFPAY | PROVIDERS: Admitting Provider Physician Assistant Medical; Emergency Provider Emergency Medicine Emergency Medical Services; PCP Family Medicine; Visit Provider Internal Medicine | DX: R94.31 Abnormal electrocardiogram [ECG] [EKG] (principal); R07.2 Precordial pain | CPT/HCPCS: 93010 ==

== ENCOUNTER → 2025-05-30 13:00 | Outpatient (BNV) | payer MEDICAID, SELFPAY | PROVIDERS: Admitting Provider Physician Assistant Medical; Emergency Provider Emergency Medicine Emergency Medical Services; PCP Family Medicine; Visit Provider Radiology Diagnostic Radiology | DX: R06.02 Shortness of breath (principal); R07.9 Chest pain, unspecified; Z86.718 Personal history of other venous thrombosis and embolism; Z86.711 Personal history of pulmonary embolism | CPT/HCPCS: 71045; 78580 ==

== ENCOUNTER 2025-05-30 13:32 | Outpatient (BNV) | payer MEDICAID, SELFPAY | END 2025-05-31 12:44 | PROVIDERS: Admitting Provider Physician Assistant Medical; Emergency Provider Emergency Medicine Emergency Medical Services; PCP Family Medicine; Visit Provider Radiology Diagnostic Radiology | DX: M25.562 Pain in left knee (principal) | CPT/HCPCS: 73564 ==

== ENCOUNTER → 2025-05-30 13:32 | Outpatient (BNV) | payer MEDICAID, SELFPAY | PROVIDERS: Admitting Provider Physician Assistant Medical; Emergency Provider Emergency Medicine Emergency Medical Services; PCP Family Medicine; Visit Provider Physician Assistant Medical | DX: F14.10 Cocaine abuse, uncomplicated (principal); R07.9 Chest pain, unspecified; M62.82 Rhabdomyolysis | CPT/HCPCS: 99223; 99231; 99239 ==

== ENCOUNTER 2025-06-02 15:46 | Inpatient (IN) | payer OTHER, SELFPAY ==
[2025-06-02 16:50] VITALS: BP 133/89; PULSE 71; RESP 18; TEMP 36.4; O2SAT 98; BMI 30.9
[2025-06-02 17:42] LABS: Glucose, Whole Blood 191 mg/dL (60-115)
--- OUTSIDE RECORDS SUMMARY | 2025-06-02 17:59 | XMS_ITS | Encounter Summary ---
Demographics Address [address] [place] [address] Mobile Phone Work Phone Home Phone Email Address Preferred Language en
--- OUTSIDE RECORDS SUMMARY | 2025-06-02 17:59 | XMS_ITS | Encounter Summary ---
Author Organization [employer] Address [address] [place] [address] [address] [place] [address] Support Name Relationship Address Phone Ayleen Man Personal Relationship Unknown [phone]
--- OUTSIDE RECORDS SUMMARY | 2025-06-02 18:00 | XMS_ITS | Encounter Summary ---
Demographics Address [address] [place] [address] Mobile Phone
--- OUTSIDE RECORDS SUMMARY | 2025-06-02 18:00 | XMS_ITS | Encounter Summary ---
Demographics
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
[2025-06-02 20:14] LABS: Glucose, Whole Blood 271 mg/dL (60-115)
[2025-06-02 20:17] VITALS: BP 174/70; PULSE 70; RESP 16; TEMP 36.2; O2SAT 98
[2025-06-02 20:18] VITALS: BP 174/80; PULSE 70; RESP 18; TEMP 36.2; O2SAT 98
[2025-06-02 20:31] VITALS: BP 174/80
[2025-06-02 20:32] VITALS: BP 174/80
[2025-06-02] MEDS: Albuterol Sulfate 90 MCG 8 GM INHALER 2 PUFF INHALE (22:32)
[2025-06-02] MEDS: Hydrocortisone 1 % Cream 28.35 GM TUBE 1 APPL TOPICAL (22:32)
[2025-06-03 08:00] VITALS: BP 165/96; PULSE 80; RESP 16; TEMP 36.3; O2SAT 99
--- NOTE | 2025-06-03 08:40 | P.PNIM_ITS ---
Subjective Subjective Date of Service: 06/03/25 Interval History: Medical evaluation Review of Systems 54-year-old female initially presented to the ED with chest pain, shortness of breath and palpitations. She also reported suicide ideation with plans to smoke enough cocaine in her life.. She presented in the emergency department with chest pressure with associated shortness of breath and palpitations. In the emergency department her blood sugar was elevated at 503, creatinine increased to 1.07, LFTs elevated at 90 and 46. Total creatinine kinase 3627. Initial troponin 12.4. There was no evidence of DKA. Urinalysis concerning for possible UTI. Patient received IV ceftriaxone, IV fluid, pain medication, antiemetics and insulin. She was admitted to the medical floor with rhabdomyolysis and transaminitis with acute kidney injury. She received IV fluids with improvement in her YANY, her statin was held due to elevated LFTs. Her hyperglycemia was related to not taking her medications. She completed doxycycline for UTI. She was restarted on her hydrochlorothiazide and losartan for her blood pressure after treatment for YANY. She was medically cleared for admission to inpatient psych. Her LFTs normalized and she was restarted on her statin. Physical Exam 2 Vital Signs: Vital Signs: Last Vital Signs Temp 97.3 F 06/03/25 08:00 Pulse 80 06/03/25 08:00 Resp 16 06/03/25 08:00 BP 165/96 H 06/03/25 08:00 Pulse Ox 99 06/03/25 08:00 O2 Del Method Room Air 06/02/25 20:18 BMI result Body Mass Index 30.9 Objective Data Active Medications Acetaminophen (Acetaminophen 325 Mg Tablet) 975 mg PO Q8H PRN PRN Reason: moderate pain Last Admin: 06/02/25 20:29 Dose: 975 mg Documented By: GARFIELD Al Hydroxide/Mg Hydroxide (Magnesium Hydrox/Alum Hydrox 30 Ml Oral.Susp) 30 ml PO Q6H PRN PRN Reason: Heartburn/Nausea Albuterol Sulfate (Albuterol Sulfate 90 Mcg 8 Gm Inhaler) 2 puff INHALE RQ4H PRN PRN Reason: Wheezing Last Admin: 06/02/25 22:32 Dose: 2 puff Documented By: GARFIELD Amlodipine Besylate (Amlodipine Besylate 10 Mg Tablet) 10 mg PO DAILY [facility]; Protocol Apixaban (Apixaban 5 Mg Tablet) 5 mg PO BID [facility] Last Admin: 06/02/25 20:31 Dose: 5 mg Documented By: GARFIELD Atorvastatin Calcium (Atorvastatin Calcium 40 Mg Tablet) 40 mg PO DAILY [facility] Bisacodyl (Bisacodyl 5 Mg Tablet.Dr) 5 mg PO DAILY PRN PRN Reason: Constipation Clonidine HCl (Clonidine Hcl 0.1 Mg Tablet) 0.1 mg PO TID PRN; Protocol PRN Reason: Anxiety Last Admin: 06/02/25 20:32 Dose: 0.1 mg Documented By: GARFIELD Dextrose (Dextrose 50 % 25 Gm/50 Ml Syringe) 25 gm IVPUSH Q15M PRN; Protocol PRN Reason: per Hypoglycemia Standing Ord. Diphenhydramine HCl (Diphenhydramine Hcl 25 Mg Capsule) 25 mg PO Q6H PRN PRN Reason: itching Epinephrine (Epinephrine 1 Mg/Ml Vial) 0.3 mg IM Q10M PRN PRN Reason: anaphylaxis Fluconazole (Fluconazole 150 Mg Tablet) 150 mg PO [facility] Glucose (Glucose Gel 15 Gm Gel..Gram.) 15 gm PO Q15M PRN; Protocol PRN Reason: per Hypoglycemia Standing Ord. Hydrochlorothiazide (Hydrochlorothiazide 12.5 Mg Tablet) 12.5 mg PO DAILY [facility]; Protocol Hydrocortisone (Hydrocortisone 1 % Cream 28.35 Gm Tube) 1 appl TOPICAL BID [facility]; Protocol Last Admin: 06/02/25 22:32 Dose: 1 appl Documented By: GARFIELD Insulin Glargine (Insulin Glargine,Hum.Rec.Anlog 100 Unit/Ml 10 Ml Vial) 21 unit SUBCUT DAILY [facility] Insulin Human Lispro (Insulin Lispro 100 Unit/Ml 3 Ml Vial) 0 unit SUBCUT QIDACHS [facility]; Protocol Last Admin: 06/02/25 20:28 Dose: 6 unit Documented By: GARFIELD Levothyroxine Sodium (Levothyroxine Sodium 25 Mcg Tablet) 25 mcg PO DAILY@0600 [facility] Last Admin: 06/03/25 05:55 Dose: 25 mcg Documented By: GARFIELD Losartan Potassium (Losartan Potassium 50 Mg Tablet) 100 mg PO DAILY [facility]; Protocol Magnesium Hydroxide (Milk Of Magnesia 30 Ml Oral.Susp) 30 ml PO DAILY PRN PRN Reason: Constipation Metformin HCl (Metformin Hcl Er 500 Mg Tab.Er.24h) 1,000 mg PO BID ISI Last Admin: 06/02/25 20:31 Dose: 1,000 mg Documented By: GARFIELD Methocarbamol (Methocarbamol 750 Mg Tablet) 750 mg PO TID PRN PRN Reason: Muscle Spasm Nicotine (Nicotine 21 Mg Patch.Td24) 21 mg TRANSDERMA DAILY PRN PRN Reason: smoking cessation Nicotine Polacrilex (Nicotine Polacrilex 2 Mg Gum) 4 mg BUCCAL Q2H PRN PRN Reason: Nicotine Cravings Non-Formulary Medication (Atomoxetine) 18 mg PO DAILY ISI Nystatin (Nystatin Powder 15 Gm Bottle) 1 appl TOPICAL BID [facility]; Protocol Last Admin: 06/02/25 22:32 Dose: 1 appl Documented By: GARFIELD Prazosin HCl (Prazosin Hcl 1 Mg Capsule) 1 mg PO BEDTIME ISI; Protocol Last Admin: 06/02/25 20:31 Dose: 1 mg Documented By: GARFIELD Sertraline HCl (Sertraline Hcl 25 Mg Tablet) 25 mg PO DAILY [facility] Trazodone HCl (Trazodone Hcl 50 Mg Tablet) 50 mg PO BEDTIME MRX1 PRN PRN Reason: Insomnia Labs 06/03/25 08:22 Labs: Laboratory Results - last 24 hr 06/02/25 06/02/25 06/03/25 17:38 20:10 08:02 POC Glucose 191 H 271 H 173 H Assessment and Plan Plan Hypertension Continue hydrochlorothiazide and amlodipine. Continue losartan and prazosin Apixaban Hyperlipidemia Continue atorvastatin Insulin-dependent type 2 diabetes Continue Lantus 21 units and sliding scale insulin Continue to follow up blood sugars and adjust as needed Continue metformin 1000 mg b.i.d. Patient's A1c was 12.4 today Suspect this is partly due to not taking her medications correctly.
[2025-06-03 08:59] LABS: Sodium 139 mmol/L (135-145)
[2025-06-03 09:16] VITALS: BP 165/96
[2025-06-03 09:18] VITALS: BP 165/96
[2025-06-03] MEDS: Insulin Glargine,Hum.rec.anlog 100 UNIT/ML 10 ML VIAL 21 UNIT SUBCUT (09:19)
--- NOTE | 2025-06-03 09:43 | P.CONHOSP_ITS ---
History of Present Illness Data of Consult Service Date: 06/03/25 Primary Care Provider: Tyesha Rogers MD [facility] Reason for consult: Medical management 54-year-old female past medical history of polysubstance use, major depressive disorder, PTSD, history of DVT and pulmonary embolus on Eliquis, relapsing remitting multiple sclerosis, history of NSTEMI in 2018, bipolar disorder, diabetic peripheral neuropathy who presented to the emergency department with chest pain, shortness of breath and palpitations. She also reported suicide ideation by reporting that she was trying to smoke enough cocaine to end her life. In the ED her blood glucose was noted to be 503, creatinine was increased to 1.07, her LFTs were elevated at 90 in 46. Her total creatinine kinase was 3 1627. Her initial troponin was 12.4 which is lower than previous readings. No evidence of DKA, her urinalysis was concerning for UTI. In the ED she received IV ceftriaxone, fluids, pain medicines, antiemetics and insulin. Her blood pressure medications as well as her cholesterol medications were initially held. She was treated with ceftriaxone, and we will complete an additional 5 more days of antibiotics. Her acute kidney injury improved with hydration. Her blood pressure medications were restarted as well as her cholesterol medicine. Her LFTs improved. She was restarted on Lantus 25 daily with a sliding scale coverage. [facility] Medical History Multiple sclerosis exacerbation Excoriation (skin-picking) disorder Back pain GERD (gastroesophageal reflux disease) Peripheral neuropathy PTSD (post-traumatic stress disorder) Mood disorder Elevated cholesterol Fibromyalgia Chronic back pain DDD (degenerative disc disease) Ovarian cyst Kidney stone Normal colonoscopy Lesion of bladder Suicide attempt Depression IBS (irritable bowel syndrome) Obesity (BMI 30-39.9) Endometriosis History of pulmonary embolus (PE) History of DVT (deep vein thrombosis) Diabetes mellitus Asthma HTN (hypertension) Anxiety Multiple sclerosis Family History Mother Rheumatoid arteritis COPD (chronic obstructive pulmonary disease) Father HTN (hypertension) Diabetes mellitus Surgical History History of lithotripsy History of cystoscopy S/P endometrial ablation H/O neck surgery Hx of dilation and curettage Hx of tubal ligation Hx of appendectomy Hx of cholecystectomy Social History Household Members: None Housing: Homeless Do you presently have visiting nurse or other home services: No Alcohol intake: current Alcohol intake frequency: holidays/special occasions only Comment: 1:1 sitter Patient Tobacco Use Status: Current everyday Tobacco user Tobacco use type: Cigarette Cigarette Packs Per Day: 1 Cigarettes Per Day: 3 Years Smoked: 39 Smoked in Last 30 Days: Yes e-Cigarette/Vaping Use: Currently Using Frequency of e-Cigarette/Vaping Use: daily Patient Interested in Nicotine Replacement: No Patient Given Instructions on How to Stop Smoking: No Second Hand Smoke Exposure: Yes Substance Use Type: Crack/Cocaine Currently Displaying Signs/Symptoms of Drug Intoxication Withdrawal: No Have you been hit, kicked, punched, or otherwise hurt by someone within the past year? If so, by whom?: No Do you feel safe in your current relationship?: Yes Is there a partner from a previous relationship who is making you feel unsafe now?: No Are you made to feel afraid or neglected: No Spiritual Healthcare Practices: hoahaoism Advance Directives: Yes Advance Directives on File: Yes Advance Directives Date on File: 05/18/23 Do you have thoughts of harming others: None Do you have a plan to hurt others: No Plan Recently lost weight without trying: No Eating poorly because of decreased appetite: No Nutrition Risks: No Nutritional Risk Patient : No : No Poor oral hygiene: No service: No Sexual orientation: Straight/Heterosexual Gender identity: Female Meds Allergies Allergy/AdvReac Type Severity Reaction Status Date / Time Iodinated Contrast Media (IV Allergy Severe THROAT Verified 05/30/25 10:47 CONTRAST) CLOSING tomato (TOMATO) Allergy Severe Anaphylaxis Verified 05/30/25 11:22 lithium (LITHIUM) Allergy Intermediate AGGRESSION, Verified 05/30/25 10:47 stiffened up & throat closing (moderate to severe) asparagus (ASPARAGUS) Allergy Mild Rash Verified 05/30/25 11:22 fluoxetine (FLUOXETINE) Allergy Mild ITCHING, Verified 05/30/25 10:47 Suicidal risperidone (From RISPERDAL) Allergy Mild ITCHING Verified 05/30/25 10:47 divalproex sodium (From Allergy Unknown UNKNOWN, Verified 05/30/25 10:47 DEPAKOTE) stiffened up, locked jaw lisinopril (LISINOPRIL) Allergy Unknown COUGH Verified 05/30/25 10:47 olanzapine Allergy Unknown can't Verified 05/30/25 10:47 recall if hives or increased pollen extracts (POLLEN) Allergy Unknown unknown Verified 05/30/25 10:47 quetiapine (From SEROQUEL) AdvReac Intermediate OVERSEDATIO Verified 05/30/25 10:47 N TOMATO Allergy Severe Anaphylaxis Uncoded 05/30/25 11:22 BROCCOLI Allergy Mild Rash Uncoded 05/30/25 11:22 GREEN [place]UNG Allergy Mild Rash Uncoded 05/30/25 11:22 FUMARATE Allergy Unknown Unknown Uncoded 05/26/25 12:03 Active Medications: Current Medications Acetaminophen (Acetaminophen 325 Mg Tablet) 975 mg PO Q8H PRN PRN Reason: moderate pain Last Admin: 06/02/25 20:29 Dose: 975 mg Al Hydroxide/Mg Hydroxide (Magnesium Hydrox/Alum Hydrox 30 Ml Oral.Susp) 30 ml PO Q6H PRN PRN Reason: Heartburn/Nausea Albuterol Sulfate (Albuterol Sulfate 90 Mcg 8 Gm Inhaler) 2 puff INHALE RQ4H PRN PRN Reason: Wheezing Last Admin: 06/02/25 22:32 Dose: 2 puff Amlodipine Besylate (Amlodipine Besylate 10 Mg Tablet) 10 mg PO DAILY ISI; Protocol Last Admin: 06/03/25 09:18 Dose: 10 mg Apixaban (Apixaban 5 Mg Tablet) 5 mg PO BID ISI Last Admin: 06/03/25 09:18 Dose: 5 mg Atorvastatin Calcium (Atorvastatin Calcium 40 Mg Tablet) 40 mg PO DAILY [facility] Last Admin: 06/03/25 09:18 Dose: 40 mg Bisacodyl (Bisacodyl 5 Mg Tablet.Dr) 5 mg PO DAILY PRN PRN Reason: Constipation Clonidine HCl (Clonidine Hcl 0.1 Mg Tablet) 0.1 mg PO TID PRN; Protocol PRN Reason: Anxiety Last Admin: 06/03/25 09:27 Dose: 0.1 mg Dextrose (Dextrose 50 % 25 Gm/50 Ml Syringe) 25 gm IVPUSH Q15M PRN; Protocol PRN Reason: per Hypoglycemia Standing Ord. Diphenhydramine HCl (Diphenhydramine Hcl 25 Mg Capsule) 25 mg PO Q6H PRN PRN Reason: itching Last Admin: 06/03/25 09:27 Dose: 25 mg Epinephrine (Epinephrine 1 Mg/Ml Vial) 0.3 mg IM Q10M PRN PRN Reason: anaphylaxis Fluconazole (Fluconazole 150 Mg Tablet) 150 mg PO WE [facility] Glucose (Glucose Gel 15 Gm Gel..Gram.) 15 gm PO Q15M PRN; Protocol PRN Reason: per Hypoglycemia Standing Ord. Hydrochlorothiazide (Hydrochlorothiazide 12.5 Mg Tablet) 12.5 mg PO DAILY [facility]; Protocol Last Admin: 06/03/25 09:16 Dose: 12.5 mg Hydrocortisone (Hydrocortisone 1 % Cream 28.35 Gm Tube) 1 appl TOPICAL BID [facility]; Protocol Last Admin: 06/02/25 22:32 Dose: 1 appl Insulin Glargine (Insulin Glargine,Hum.Rec.Anlog 100 Unit/Ml 10 Ml Vial) 21 unit SUBCUT DAILY [facility] Last Admin: 06/03/25 09:19 Dose: 21 unit Insulin Human Lispro (Insulin Lispro 100 Unit/Ml 3 Ml Vial) 0 unit SUBCUT QIDACHS [facility]; Protocol Last Admin: 06/03/25 09:20 Dose: 2 unit Levothyroxine Sodium (Levothyroxine Sodium 25 Mcg Tablet) 25 mcg PO DAILY@0600 [facility] Last Admin: 06/03/25 05:55 Dose: 25 mcg Losartan Potassium (Losartan Potassium 50 Mg Tablet) 100 mg PO DAILY [facility]; Protocol Magnesium Hydroxide (Milk Of Magnesia 30 Ml Oral.Susp) 30 ml PO DAILY PRN PRN Reason: Constipation Metformin HCl (Metformin Hcl Er 500 Mg Tab.Er.24h) 1,000 mg PO BID [facility] Last Admin: 06/03/25 09:18 Dose: 1,000 mg Methocarbamol (Methocarbamol 750 Mg Tablet) 750 mg PO TID PRN PRN Reason: Muscle Spasm Nicotine (Nicotine 21 Mg Patch.Td24) 21 mg TRANSDERMA DAILY PRN PRN Reason: smoking cessation Nicotine Polacrilex (Nicotine Polacrilex 2 Mg Gum) 4 mg BUCCAL Q2H PRN PRN Reason: Nicotine Cravings Non-Formulary Medication (Atomoxetine) 18 mg PO DAILY [facility] Nystatin (Nystatin Powder 15 Gm Bottle) 1 appl TOPICAL BID ISI; Protocol Last Admin: 06/02/25 22:32 Dose: 1 appl Prazosin HCl (Prazosin Hcl 1 Mg Capsule) 1 mg PO BEDTIME ISI; Protocol Last Admin: 06/02/25 20:31 Dose: 1 mg Sertraline HCl (Sertraline Hcl 25 Mg Tablet) 25 mg PO DAILY ISI Last Admin: 06/03/25 09:18 Dose: 25 mg Trazodone HCl (Trazodone Hcl 50 Mg Tablet) 50 mg PO BEDTIME MRX1 PRN PRN Reason: Insomnia Home Medications ?Medication ?Instructions ?Recorded ?Confirmed ?Last Taken ?Type apixaban 5 mg tablet (Eliquis) 5 mg PO BID 08/25/2006/20/24 History atorvastatin 40 mg tablet 1 tab PO DAILY 06/07/2205/1306/20/24 History losartan 100 mg tablet 100 mg PO DAILY 06/07/2206/20/24 History metformin 500 mg tablet,extended 1,000 mg PO BID 05/1106/02/25 06/20/24 History release 24 hr insulin lispro 100 unit/mL 8 - 16 sliding scale dose s ubcut 05/28/24 06/02/25 06/20/24 History subcutaneous pen TIDAC levothyroxine 25 mcg tablet 25 mcg PO DAILY@0600 05/2806/02/25 06/20/24 History acetaminophen 500 mg tablet 1,000 mg PO Q8H PRN modera te pain 04/22/25 06/02/25 Unknown History atomoxetine 18 mg capsule 18 mg PO DAILY 04/22/2505/13 Unknown History bisacodyl 5 mg tablet,delayed 5 mg PO DAILY PRN consti pation 04/22/25 06/02/25 Unknown History release clonidine HCl 0.1 mg tablet 0.1 mg PO TID PRN Anxiety 04/22/25 06/02/25 Unknown History doxepin 25 mg capsule 25 mg PO BEDTIME PRN Sleep 0 04/22/25 06/02/25 Unknown History fluconazole 150 mg tablet 150 mg PO WE 04/22/25 Unknown History insulin degludec 100 unit/mL (3 30 unit subcut DAILY 0 04/22/25 06/02/25 Unknown History mL) subcutaneous pen (Tresiba FlexTouch U-100 insulin) methocarbamol 750 mg tablet 750 - 1,500 mg PO TID PRN muscle 04/22/25 06/02/25 Unknown History spasm prazosin 1 mg capsule 1 mg PO BEDTIME 04/22/25 Unknown History sertraline 25 mg tablet 25 mg PO DAILY 04/22/2505/13 Unknown History amlodipine 10 mg tablet 10 mg PO DAILY 05/30/2505/13 Unknown History doxycycline hyclate 100 mg capsule 100 mg PO BID 05/3006/02/25 Unknown History hydrochlorothiazide 12.5 mg tablet 12.5 mg PO DAILY 06/02/25 Unknown History Physical Exam 2 Vital Signs and Narrative: Vital Signs: Last Vital Signs Temp 97.3 F 06/03/25 08:00 Pulse 80 06/03/25 08:00 Resp 16 06/03/25 08:00 BP 165/96 H 06/03/25 09:18 Pulse Ox 99 06/03/25 08:00 O2 Del Method Room Air 06/02/25 20:18 BMI result Body Mass Index 30.9 CONST: Alert and oriented, in NAD. Well nourished HEENT: Normocephalic, atraumatic, MMM, Eyes clear, Neck supple RESP: Lungs clear, RRR even and regular HEART:,RRR, S1, S2. No edema GI:Abdomen Soft NT, ND. + BS times four :Deferred SKIN: Warm dry and intact, no visible lesions or rashes NEURO:CN II-XII Intact bilaterally, Sensation intact. Speech clear PSYCH: Normal affect Results Labs 06/03/25 08:22 Labs: Laboratory Results - last 24 hr 06/02/25 06/02/25 06/03/25 17:38 20:10 08:02 Anion Gap Estim Creat Clear Calc Estimated GFR POC Glucose 191 H 271 H 173 H Random Glucose Estimat Average Glucose Hemoglobin A1c % Calcium Total Bilirubin Direct Bilirubin AST ALT Alkaline Phosphatase Total Protein Albumin Triglycerides Cholesterol LDL Cholesterol, Calc HDL Cholesterol TSH 06/03/25 06/03/25 06/03/25 08:22 08:22 08:22 Anion Gap 10 L Estim Creat Clear Calc 95.5 97.1 Estimated GFR > 60 > 60 POC Glucose Random Glucose 183 H Estimat Average Glucose 309 Hemoglobin A1c % 12.4 H Calcium 9.1 D Total Bilirubin 0.2 Direct Bilirubin < 0.2 AST 22 ALT 32 H Alkaline Phosphatase 72 Total Protein 6.5 Albumin 3.7 Triglycerides 204 H Cholesterol 222 H LDL Cholesterol, Calc 123 H HDL Cholesterol 59 TSH 2.09 Assessment and Plan (1) Relapsing remitting multiple sclerosis: Status: Acute (2) History of DVT (deep vein thrombosis): Status: Acute (3) History of pulmonary embolus (PE): Status: Acute Plan 54-year-old female with past medical history listed above was initially admitted to the hospital for acute kidney injury, elevated LFTs, chest pain, and suicidal ideation. She is now admitted to inpatient psych for mood stabilization and treatment. Polysubstance use/major depressive disorder/PTSD/SI/bipolar disorder Treatment per psychiatry team History of DVT and pulmonary embolus Diagnosed 10/11/2023. Patient has not had subsequent follow up Continue Eliquis Consult Heme-Onc Gastritis Continue Pepcid BID Patient with symptoms of coughing at night, we will add p.r.n. Robitussin as well. Relapsing remitting multiple sclerosis/diabetic peripheral neuropathy/ history of C-spine surgery x2 for cervical neuropathy Followed by Neurology at [facility], last seen April 22, 2020 10/16/2019 Symptoms of MS noted to be mild, not on active treatment at this time Coronary artery disease, history of NSTEMI in 2018/hypertension/HLD Continue hydrochlorothiazide, Norvasc, Lipitor, Cozaar Medications initially held due to YANY and elevated LFTs. Restarted on discharge. Follow labs Type 2 diabetes/diabetic peripheral neuropathy/fibromyalgia Recent A1c 12.4 some degree of medication noncompliance Continue Lantus 25 Units as well as insulin sliding scale and metformin. Patient unable to tolerate gabapentin or duloxetine Consider Lyrica for symptom management Thank you for allowing me to participate in the care of this patient. Will follow as needed, please notify medical provider with any changes in condition or concerns.
[2025-06-03 12:19] LABS: Glucose, Whole Blood 263 mg/dL (60-115)
[2025-06-03 16:42] VITALS: BP 142/80
[2025-06-03] MEDS: Throat Lozenge, Medicated LOZENGE 1 LOZENGE MUCOUS MEM ×2 (16:53→21:25)
[2025-06-03] MEDS: Albuterol Sulfate 90 MCG 8 GM INHALER 2 PUFF INHALE ×2 (16:54→21:27)
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
[2025-06-03 17:47] LABS: Glucose, Whole Blood 135 mg/dL (60-115)
[2025-06-03] MEDS: guanFACINE HCl ER 1 MG TAB.ER.24H PO (18:25)
[2025-06-03] MEDS: Hydrocortisone 1 % Cream 28.35 GM TUBE 1 APPL TOPICAL (21:22)
[2025-06-03 21:24] VITALS: BP 140/84
[2025-06-03 21:25] LABS: Glucose, Whole Blood 218 mg/dL (60-115)
[2025-06-03 21:37] VITALS: BP 140/84; PULSE 77; RESP 16; TEMP 36.6; O2SAT 98
[2025-06-04 07:52] LABS: Glucose, Whole Blood 226 mg/dL (60-115)
[2025-06-04 08:00] VITALS: RESP 18
[2025-06-04] MEDS: guanFACINE HCl ER 1 MG TAB.ER.24H PO (08:25)
[2025-06-04] MEDS: Insulin Glargine,Hum.rec.anlog 100 UNIT/ML 10 ML VIAL 25 UNIT SUBCUT (08:26)
[2025-06-04 09:38] VITALS: BP 133/75; PULSE 72; RESP 18; TEMP 36.1; O2SAT 93
--- NOTE | 2025-06-04 09:48 | PM.EVENT ---
Event Note Date of Service: 06/04/25 Event Note: Addiction consult placed for patient upon admission to unit Patient was seen by [facility] while on medical floor, and referrals placed final assembler boat communicated with SW on unit regarding referrals No additional follow up indicated at this time Time Spent With Patient Time: Total time managing care of this patient today ____ minutes.
[2025-06-04 10:25] VITALS: BP 175/78
[2025-06-04 11:58] LABS: Glucose, Whole Blood 190 mg/dL (60-115)
[2025-06-04 14:06] VITALS: BP 158/82; PULSE 72; RESP 16; TEMP 36.1; O2SAT 97
[2025-06-04] MEDS: Throat Lozenge, Medicated LOZENGE 1 LOZENGE MUCOUS MEM (15:49)
[2025-06-04 17:15] LABS: Glucose, Whole Blood 297 mg/dL (60-115)
[2025-06-04 18:00] VITALS: BP 148/82; PULSE 76; RESP 16; TEMP 36.4; O2SAT 99
[2025-06-04] MEDS: guaiFENesin 200 MG/10 ML 10 ML LIQUID PO (20:57)
[2025-06-04 21:05] LABS: Glucose, Whole Blood 177 mg/dL (60-115)
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
[2025-06-04] MEDS: Hydrocortisone 1 % Cream 28.35 GM TUBE 1 APPL TOPICAL (22:04)
[2025-06-05 07:00] VITALS: BMI 31.2
--- NOTE | 2025-06-05 07:25 | P.CNHO_ITS ---
Subjective - Subjective Chief complaint: None reported Patient: new to practice Consult date: 06/05/25 Primary Care Provider: Tyesha Rogers MD [employer] Utilized?: No - Lao Speaking HPI - Consult Narrative Reason for consult: History of DVT/PE Narrative: Emily Tucker is a 54 year old female with polysubstance abuse in major depression, multiple sclerosis, history of NSTEMI in 2018, bipolar disorder who is admitted for suicidal ideation. She has a history of DVT/PE. He is on Eliquis. Hematology/oncology consultation called she has not had any follow-up regarding this. Patient is a poor historian. She says she was diagnosed with blood clot in her left leg and lung many years ago. She does not remember the circumstances but thinks it was done at [facility]. She does not remember her symptoms. Her PCP Dr. Rogers has been prescribing her the Eliquis. Patient denies any excessive bruising or bleeding. She does not know if any other family members have had DVT or PE. There is history of [place] and stroke in the family. [facility] Medical History: Medical History (Last Reviewed 05/30/25 @ 14:03 by YORDAN Rueda) YANY (acute kidney injury) Anxiety Asthma Back pain Chronic back pain DDD (degenerative disc disease) Depression Diabetes mellitus Elevated cholesterol Endometriosis Excoriation (skin-picking) disorder Fibromyalgia GERD (gastroesophageal reflux disease) History of DVT (deep vein thrombosis) History of pulmonary embolus (PE) HTN (hypertension) IBS (irritable bowel syndrome) Kidney stone Lesion of bladder Mood disorder Multiple sclerosis Multiple sclerosis exacerbation Normal colonoscopy Obesity (BMI 30-39.9) Ovarian cyst Peripheral neuropathy PTSD (post-traumatic stress disorder) Suicide attempt Family History: Family History (Last Reviewed 05/30/25 @ 14:03 by YORDAN Rueda) Mother Rheumatoid arteritis COPD (chronic obstructive pulmonary disease) Father HTN (hypertension) Diabetes mellitus Surgical History: Surgical History (Last Reviewed 05/30/25 @ 14:03 by YORDAN Rueda) H/O neck surgery History of cystoscopy History of lithotripsy Hx of appendectomy Hx of cholecystectomy Hx of dilation and curettage Hx of tubal ligation S/P endometrial ablation Social History: Social History (Last Reviewed 05/30/25 @ 14:03 by YORDAN Rueda) Living Situation History: Household Members: None Housing: Homeless Do you presently have visiting nurse or other home services: No Alcohol History Details: 1. How often do you have a drink containing alcohol?: b. Monthly or less 2. How many drinks containing alcohol do you have on a typical day when you are drinking?: a. 1 or 2 3. How often do you have six or more drinks on one occasion?: b. Less than monthly AUDIT-C Alcohol total score: 2 Currently Displaying Signs/Symptoms of Alcohol Withdrawal: No Tobacco History: Patient Tobacco Use Status: Current everyday Tobacco Tobacco use type: Cigarette Cigarette Packs Per Day: 1 Cigarettes Per Day: 3 Years Smoked: 39 Smoked in Last 30 Days: Yes e-Cigarette/Vaping Use: Currently Using Frequency of e-Cigarette/Vaping use: daily Patient Interested in Nicotine Replacement: No Patient Given Instructions on How to Stop Smoking: No Second Hand Smoke Exposure: Yes Substance Use History: Substance Use Type: Crack/Cocaine Currently Displaying Signs/Symptoms of Drug Intoxication Withdrawal: No Domestic Abuse History: Have you been hit, kicked, punched, or otherwise hurt by someone within the past year? If so, by whom?: No Do you feel safe in your current relationship?: Yes Is there a partner from a previous relationship who is making you feel unsafe now?: No Are you made to feel afraid or neglected: No Healthcare Practices: Spiritual Healthcare Practices: orthodoxy Advance Directives: Advance Directives: Yes Advance Directives on File: Yes Advance Directives Date on File: 05/18/23 Homicidal Assessment: Do you have thoughts of harming others: None Do you have a plan to hurt others: No Plan Nutrition Assessment: Recently lost weight without trying: No Eating poorly because of decreased appetite: No Nutrition Risks: No Nutritional Risk Patient : No : No Poor oral hygiene: No Occupation Assessmet: service: No Sex/Gender Assessment: Sexual orientation: Straight/Heterosexual Gender identity: Female Home Medications and Allergies Current Medications: Current Medications Acetaminophen (Acetaminophen 325 Mg Tablet) 975 mg PO Q8H PRN PRN Reason: moderate pain Last Admin: 06/04/25 15:46 Dose: 975 mg Al Hydroxide/Mg Hydroxide (Magnesium Hydrox/Alum Hydrox 30 Ml Oral.Susp) 30 ml PO Q6H PRN PRN Reason: Heartburn/Nausea Albuterol Sulfate (Albuterol Sulfate 90 Mcg 8 Gm Inhaler) 2 puff INHALE RQ4H PRN PRN Reason: Wheezing Last Admin: 06/03/25 21:27 Dose: 2 puff Amlodipine Besylate (Amlodipine Besylate 10 Mg Tablet) 10 mg PO BEDTIME [facility]; Protocol Last Admin: 06/04/25 20:53 Dose: 10 mg Apixaban (Apixaban 5 Mg Tablet) 5 mg PO BID [facility] Last Admin: 06/04/25 20:55 Dose: 5 mg Atorvastatin Calcium (Atorvastatin Calcium 40 Mg Tablet) 40 mg PO DAILY [facility] Last Admin: 06/04/25 08:25 Dose: 40 mg Benzocaine (Throat Lozenge, Medicated Lozenge) 1 lozenge MUCOUS MEM Q2H PRN PRN Reason: Sore Throat Last Admin: 06/04/25 15:49 Dose: 1 lozenge Bisacodyl (Bisacodyl 5 Mg Tablet.Dr) 5 mg PO DAILY PRN PRN Reason: Constipation Clonidine HCl (Clonidine Hcl 0.1 Mg Tablet) 0.1 mg PO TID PRN; Protocol PRN Reason: Anxiety Last Admin: 06/04/25 20:56 Dose: 0.1 mg Dextrose (Dextrose 50 % 25 Gm/50 Ml Syringe) 25 gm IVPUSH Q15M PRN; Protocol PRN Reason: per Hypoglycemia Standing Ord. Diphenhydramine HCl (Diphenhydramine Hcl 25 Mg Capsule) 25 mg PO Q6H PRN PRN Reason: itching Last Admin: 06/04/25 20:57 Dose: 25 mg Epinephrine (Epinephrine 1 Mg/Ml Vial) 0.3 mg IM Q10M PRN PRN Reason: anaphylaxis Famotidine (Famotidine 20 Mg Tablet) 20 mg PO BID [facility] Last Admin: 06/04/25 20:55 Dose: 20 mg Fluconazole (Fluconazole 150 Mg Tablet) 150 mg PO WE [facility] Last Admin: 06/04/25 18:09 Dose: 150 mg Glucose (Glucose Gel 15 Gm Gel..Gram.) 15 gm PO Q15M PRN; Protocol PRN Reason: per Hypoglycemia Standing Ord. Guaifenesin (Guaifenesin 200 Mg/10 Ml 10 Ml Liquid) 10 ml PO Q4H PRN PRN Reason: Cough Last Admin: 06/04/25 20:57 Dose: 10 ml Guanfacine HCl (Guanfacine Hcl Er 2 Mg Tab.Er.24h) 2 mg PO DAILY [facility] Hydrochlorothiazide (Hydrochlorothiazide 12.5 Mg Tablet) 12.5 mg PO DAILY [facility]; Protocol Last Admin: 06/04/25 09:39 Dose: 12.5 mg Hydrocortisone (Hydrocortisone 1 % Cream 28.35 Gm Tube) 1 appl TOPICAL BID [facility]; Protocol Last Admin: 06/04/25 22:04 Dose: 1 appl Insulin Glargine (Insulin Glargine,Hum.Rec.Anlog 100 Unit/Ml 10 Ml Vial) 25 unit SUBCUT DAILY [facility] Last Admin: 06/04/25 08:26 Dose: 25 unit Insulin Human Lispro (Insulin Lispro 100 Unit/Ml 3 Ml Vial) 0 unit SUBCUT QIDACHS [facility]; Protocol Last Admin: 06/04/25 20:51 Dose: 2 unit Levothyroxine Sodium (Levothyroxine Sodium 25 Mcg Tablet) 25 mcg PO DAILY@0600 [facility] Last Admin: 06/05/25 06:12 Dose: Not Given Losartan Potassium (Losartan Potassium 50 Mg Tablet) 100 mg PO DAILY [facility]; Protocol Last Admin: 06/04/25 09:40 Dose: 100 mg Magnesium Hydroxide (Milk Of Magnesia 30 Ml Oral.Susp) 30 ml PO DAILY PRN PRN Reason: Constipation Metformin HCl (Metformin Hcl Er 500 Mg Tab.Er.24h) 1,000 mg PO BID [facility] Last Admin: 06/04/25 20:56 Dose: 1,000 mg Methocarbamol (Methocarbamol 750 Mg Tablet) 750 mg PO TID PRN PRN Reason: Muscle Spasm Last Admin: 06/04/25 20:56 Dose: 750 mg Nicotine (Nicotine 21 Mg Patch.Td24) 21 mg TRANSDERMA DAILY PRN PRN Reason: smoking cessation Nicotine Polacrilex (Nicotine Polacrilex 2 Mg Gum) 4 mg BUCCAL Q2H PRN PRN Reason: Nicotine Cravings Nystatin (Nystatin Powder 15 Gm Bottle) 1 appl TOPICAL BID [facility]; Protocol Last Admin: 06/04/25 20:59 Dose: Not Given Prazosin HCl (Prazosin Hcl 1 Mg Capsule) 1 mg PO BEDTIME [facility]; Protocol Last Admin: 06/04/25 20:57 Dose: 1 mg Topiramate (Topiramate 25 Mg Tablet) 50 mg PO BEDTIME [facility] Trazodone HCl (Trazodone Hcl 50 Mg Tablet) 50 mg PO BEDTIME MRX1 PRN PRN Reason: Insomnia Home Medications ?Medication ?Instructions ?Recorded ?Confirmed ?Type apixaban 5 mg tablet (Eliquis) 5 mg PO BID 08/25/20 06/02/25 History atorvastatin 40 mg tablet 1 tab PO DAILY 06/07/22 06/02/25 History losartan 100 mg tablet 100 mg PO DAILY 06/07/22 06/02/25 Histor y metformin 500 mg tablet,extended 1,000 mg PO BID 05/11/23 06/02/25 Histor y release 24 hr insulin lispro 100 unit/mL 8 - 16 sliding scale dose subcut 4 06/02/25 History subcutaneous pen TIDAC levothyroxine 25 mcg tablet 25 mcg PO DAILY@0600 05/28/24 06/02/25 H istory acetaminophen 500 mg tablet 1,000 mg PO Q8H PRN moderate pain 06/02/25 History atomoxetine 18 mg capsule 18 mg PO DAILY 04/22/25 06/02/25 History bisacodyl 5 mg tablet,delayed 5 mg PO DAILY PRN constipation 04/22/25 06/02/25 History release clonidine HCl 0.1 mg tablet 0.1 mg PO TID PRN Anxiety 04/22/2506/02 History doxepin 25 mg capsule 25 mg PO BEDTIME PRN Sleep 04/22/2505/13 History fluconazole 150 mg tablet 150 mg PO WE 04/22/25 06/02/25 History insulin degludec 100 unit/mL (3 30 unit subcut DAILY 04/22/25 06/02/25 H istory mL) subcutaneous pen (Tresiba FlexTouch U-100 insulin) methocarbamol 750 mg tablet 750 - 1,500 mg PO TID PRN muscle 5 06/02/25 History spasm prazosin 1 mg capsule 1 mg PO BEDTIME 04/22/25 06/02/25 Histor y sertraline 25 mg tablet 25 mg PO DAILY 04/22/25 06/02/25 History amlodipine 10 mg tablet 10 mg PO DAILY 05/30/25 06/02/25 History doxycycline hyclate 100 mg capsule 100 mg PO BID 05/30/25 06/02/25 History hydrochlorothiazide 12.5 mg tablet 12.5 mg PO DAILY 05/30/25 06/02/25 Histo ry Allergies Allergy/AdvReac Type Severity Reaction Status Date / Time Iodinated Contrast Media (IV Allergy Severe THROAT Verified 05/30/25 10:47 CONTRAST) CLOSING tomato (TOMATO) Allergy Severe Anaphylaxis Verified 05/30/25 11:22 lithium (LITHIUM) Allergy Intermediate AGGRESSION, Verified 05/30/25 10:47 stiffened up & throat closing (moderate to severe) asparagus (ASPARAGUS) Allergy Mild Rash Verified 05/30/25 11:22 fluoxetine (FLUOXETINE) Allergy Mild ITCHING, Verified 05/30/25 10:47 Suicidal risperidone (From RISPERDAL) Allergy Mild ITCHING Verified 05/30/25 10:47 divalproex sodium (From Allergy Unknown UNKNOWN, Verified 05/30/25 10:47 DEPAKOTE) stiffened up, locked jaw lisinopril (LISINOPRIL) Allergy Unknown COUGH Verified 05/30/25 10:47 olanzapine Allergy Unknown can't Verified 05/30/25 10:47 recall if hives or increased pollen extracts (POLLEN) Allergy Unknown unknown Verified 05/30/25 10:47 quetiapine (From SEROQUEL) AdvReac Intermediate OVERSEDATIO Verified 05/30/25 10:47 N TOMATO Allergy Severe Anaphylaxis Uncoded 05/30/25 11:22 BROCCOLI Allergy Mild Rash Uncoded 05/30/25 11:22 GREEN CHEUNG Allergy Mild Rash Uncoded 05/30/25 11:22 FUMARATE Allergy Unknown Unknown Uncoded 05/26/25 12:03 Physical Exam Vital signs: Vital Signs Temp 97.5 F 06/04/25 18:00 Pulse 76 06/04/25 18:00 Resp 16 06/04/25 18:00 BP 148/82 H 06/04/25 18:00 Pulse Ox 99 06/04/25 18:00 O2 Del Method Room Air 06/04/25 18:00 Weight 76.7 kg - Constitutional Present: no acute distress, average body habitus - Routine HEENT Exam Head: Present: normal inspection - Routine Neck Exam Absent: swelling - Routine Respiratory Exam Absent: accessory muscle use - Routine Cardiovascular Exam Cardiovascular: Present: S1, S2 - Routine Skin Exam Present: scars - Routine Neurological Exam Present: alert, oriented X3 Hem/Onc Consult Result - Labs CBC & Chem 7: 06/03/25 08:22 Assessment and Plan Patient Active problem list reviewed?: Yes (1) History of DVT (deep vein thrombosis) Status: Chronic Assessment and plan: 1. This is a 54-year-old woman with multiple medical problems including polysubstance drug abuse, major depression/PTSD, multiple sclerosis, NSTEMI who has a history of DVT and pulmonary embolism. Her diagnosis was elsewhere and according to patient it was a long time ago, not 2023. Patient is unable to remember what symptoms she had but she thinks she had a clot in her left leg and in her lungs. She does not give circumstances around the clot or if she saw structural worker. [place] [facility] Please request records from her PCP Dr. Rogers who has been feeling her [facility] or [facility] for further information. At this time, I am unable to make any recommendations about her treatment without having the above information. Thank you. - Time Spent With Patient Time Spent with Patient (in minutes): 15
[2025-06-05 07:54] VITALS: BP 111/74
[2025-06-05 08:01] LABS: Glucose, Whole Blood 322 mg/dL (60-115)
[2025-06-05 08:03] VITALS: BP 111/74; PULSE 74; TEMP 35.9; O2SAT 98
[2025-06-05] MEDS: Insulin Glargine,Hum.rec.anlog 100 UNIT/ML 10 ML VIAL 25 UNIT SUBCUT (08:26)
[2025-06-05] MEDS: guanFACINE HCl ER 2 MG TAB.ER.24H PO (08:27)
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
[2025-06-05 12:30] LABS: Glucose, Whole Blood 261 mg/dL (60-115)
[2025-06-05 16:41] LABS: Glucose, Whole Blood 264 mg/dL (60-115)
[2025-06-05 18:00] VITALS: BP 130/90; PULSE 77; RESP 16; TEMP 36.2; O2SAT 100
[2025-06-05 20:14] LABS: Glucose, Whole Blood 227 mg/dL (60-115)
[2025-06-05] MEDS: guaiFENesin 200 MG/10 ML 10 ML LIQUID PO (20:32)
[2025-06-06] VITALS (9 sets, daily range): BP systolic 106–117; BP diastolic 62–66; PULSE 68–76; RESP 16; TEMP 35.9–36.4; O2SAT 97–100
[2025-06-06 07:54] LABS: Glucose, Whole Blood 209 mg/dL (60-115)
[2025-06-06] MEDS: Insulin Glargine,Hum.rec.anlog 100 UNIT/ML 10 ML VIAL 25 UNIT SUBCUT (08:29)
[2025-06-06] MEDS: guanFACINE HCl ER 2 MG TAB.ER.24H PO (08:32)
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
[2025-06-06 12:13] LABS: Glucose, Whole Blood 292 mg/dL (60-115)
[2025-06-06 16:56] LABS: Glucose, Whole Blood 297 mg/dL (60-115)
[2025-06-06 20:53] LABS: Glucose, Whole Blood 266 mg/dL (60-115)
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
[2025-06-07 08:10] VITALS: BP 108/52; PULSE 71; RESP 18; TEMP 36.4; O2SAT 98
[2025-06-07 08:23] LABS: Glucose, Whole Blood 180 mg/dL (60-115)
[2025-06-07] MEDS: guanFACINE HCl ER 2 MG TAB.ER.24H PO (08:31)
[2025-06-07] MEDS: Insulin Glargine,Hum.rec.anlog 100 UNIT/ML 10 ML VIAL 25 UNIT SUBCUT (08:50)
[2025-06-07 12:17] LABS: Glucose, Whole Blood 255 mg/dL (60-115)
[2025-06-07 17:01] LABS: Glucose, Whole Blood 169 mg/dL (60-115)
[2025-06-07 17:27] LABS: Appearance Urine Clear; Glucose Urine UA Negative (Negative); PH 6.5 (5.0-9.0); Specific Gravity - Urine 1.010 (1.005-1.025); UMIC TRIGGER UACC YES
[2025-06-07 20:06] VITALS: BP 114/63; PULSE 76; TEMP 36.4; O2SAT 97
[2025-06-07 21:10] LABS: Glucose, Whole Blood 256 mg/dL (60-115)
[2025-06-07 22:00] VITALS: BP 101/66; PULSE 69; TEMP 36.4; O2SAT 99
[2025-06-08 07:51] LABS: Glucose, Whole Blood 175 mg/dL (60-115)
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
[2025-06-08 08:36] VITALS: BP 105/58; PULSE 71; RESP 14; TEMP 36.8; O2SAT 98
[2025-06-08] MEDS: guanFACINE HCl ER 2 MG TAB.ER.24H PO (08:38)
[2025-06-08] MEDS: Insulin Glargine,Hum.rec.anlog 100 UNIT/ML 10 ML VIAL 25 UNIT SUBCUT (09:34)
[2025-06-08 11:51] LABS: Glucose, Whole Blood 225 mg/dL (60-115)
[2025-06-08 16:00] VITALS: BP 91/53; PULSE 65; RESP 14; TEMP 36.4; O2SAT 98
[2025-06-08 17:15] LABS: Glucose, Whole Blood 217 mg/dL (60-115)
[2025-06-08 20:34] LABS: Glucose, Whole Blood 349 mg/dL (60-115)
[2025-06-08 20:39] VITALS: BP 112/55
[2025-06-08 21:07] VITALS: BP 112/55; PULSE 73; RESP 16; TEMP 36.4; O2SAT 99
[2025-06-09 06:57] LABS: Glucose, Whole Blood 223 mg/dL (60-115)
[2025-06-09 07:54] LABS: Glucose, Whole Blood 221 mg/dL (60-115)
[2025-06-09 08:00] VITALS: BP 113/52; PULSE 67; RESP 18; TEMP 36.7
[2025-06-09] MEDS: guanFACINE HCl ER 2 MG TAB.ER.24H PO (08:35)
[2025-06-09] MEDS: Insulin Glargine,Hum.rec.anlog 100 UNIT/ML 10 ML VIAL 25 UNIT SUBCUT (08:39)
[2025-06-09 12:15] LABS: Glucose, Whole Blood 238 mg/dL (60-115)
[2025-06-09 17:00] VITALS: BP 101/59; PULSE 75; RESP 18; TEMP 36.4; O2SAT 98
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
[2025-06-09 17:11] LABS: Glucose, Whole Blood 197 mg/dL (60-115)
[2025-06-09] MEDS: Albuterol Sulfate 90 MCG 8 GM INHALER 2 PUFF INHALE (19:53)
[2025-06-09 20:01] LABS: Glucose, Whole Blood 196 mg/dL (60-115)
[2025-06-09] MEDS: guaiFENesin 200 MG/10 ML 10 ML LIQUID PO (20:33)
[2025-06-10 07:55] LABS: Glucose, Whole Blood 154 mg/dL (60-115)
[2025-06-10 08:00] VITALS: BP 123/59; PULSE 73; RESP 18; TEMP 36; O2SAT 99
[2025-06-10] MEDS: Insulin Glargine,Hum.rec.anlog 100 UNIT/ML 10 ML VIAL 25 UNIT SUBCUT (08:21)
[2025-06-10] MEDS: guanFACINE HCl ER 2 MG TAB.ER.24H PO (08:45)
[2025-06-10 09:22] LABS: Creatinine Clr Calc Pharmacy 78.2; Estimated Glomerular Filt Rate > 60
[2025-06-10 12:09] LABS: Glucose, Whole Blood 260 mg/dL (60-115)
[2025-06-10 17:15] LABS: Glucose, Whole Blood 231 mg/dL (60-115)
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
[2025-06-10 20:00] VITALS: BP 120/60; PULSE 75; RESP 16; TEMP 36.4; O2SAT 98
[2025-06-10] MEDS: guaiFENesin 200 MG/10 ML 10 ML LIQUID PO (20:56)
[2025-06-10 21:27] LABS: Glucose, Whole Blood 285 mg/dL (60-115)
[2025-06-10] MEDS: Magnesium Hydrox/Alum Hydrox 30 ML ORAL.SUSP PO (22:05)
[2025-06-11 08:00] VITALS: BP 113/61; PULSE 69; TEMP 36.6; O2SAT 100
[2025-06-11 08:04] LABS: Glucose, Whole Blood 197 mg/dL (60-115)
[2025-06-11] MEDS: guanFACINE HCl ER 2 MG TAB.ER.24H PO (09:07)
[2025-06-11 09:08] VITALS: BP 113/61
[2025-06-11] MEDS: Insulin Glargine,Hum.rec.anlog 100 UNIT/ML 10 ML VIAL 25 UNIT SUBCUT (09:09)
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
[2025-06-11 12:00] LABS: Glucose, Whole Blood 255 mg/dL (60-115)
[2025-06-11 17:19] LABS: Glucose, Whole Blood 245 mg/dL (60-115)
[2025-06-11 20:00] VITALS: BP 119/70; PULSE 71; RESP 20; TEMP 37; O2SAT 100
[2025-06-11 20:52] LABS: Glucose, Whole Blood 324 mg/dL (60-115)
[2025-06-11] MEDS: Magnesium Hydrox/Alum Hydrox 30 ML ORAL.SUSP PO (22:29)
[2025-06-11] MEDS: guaiFENesin 200 MG/10 ML 10 ML LIQUID PO (22:29)
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
[2025-06-12 08:00] VITALS: BP 112/63; PULSE 99; RESP 18; TEMP 36.6; O2SAT 99
[2025-06-12 08:15] LABS: Glucose, Whole Blood 179 mg/dL (60-115)
[2025-06-12 08:54] VITALS: BP 112/63
[2025-06-12] MEDS: guanFACINE HCl ER 2 MG TAB.ER.24H PO (08:54)
[2025-06-12 08:55] VITALS: BP 112/63
[2025-06-12] MEDS: Insulin Glargine,Hum.rec.anlog 100 UNIT/ML 10 ML VIAL 25 UNIT SUBCUT (08:59)
[2025-06-12 12:29] LABS: Glucose, Whole Blood 276 mg/dL (60-115)
== END 2025-06-12 14:45 | disposition other institution (70) | DRG 751 ==
PROVIDERS: Nurse Practitioner Psychiatric/Mental Health; Psychiatry & Neurology Psychiatry; Admitting Provider Psychiatry & Neurology Psychiatry; PCP Family Medicine; Visit Provider Psychiatry & Neurology Psychiatry
DX: F33.2 Major depressive disorder, recurrent severe without psychotic features (principal); E11.9 Type 2 diabetes mellitus without complications; F14.10 Cocaine abuse, uncomplicated; F17.210 Nicotine dependence, cigarettes, uncomplicated; F43.10 Post-traumatic stress disorder, unspecified; Z59.02 Unsheltered homelessness; Z86.718 Personal history of other venous thrombosis and embolism; Z71.6 Tobacco abuse counseling; Z79.4 Long term (current) use of insulin; Z79.84 Long term (current) use of oral hypoglycemic drugs; Z79.899 Other long term (current) drug therapy
CPT/HCPCS: 36415; 80053; 80061; 81001; 82248; 82565; 82947; 83036; 84443

== ENCOUNTER → 2025-06-02 15:46 | Outpatient (BNV) | payer MEDICAID, SELFPAY | PROVIDERS: Admitting Provider Psychiatry & Neurology Psychiatry; PCP Family Medicine; Visit Provider Nurse Practitioner Family | DX: G35 Multiple sclerosis (principal); Z86.718 Personal history of other venous thrombosis and embolism; Z86.711 Personal history of pulmonary embolism | CPT/HCPCS: 99222 ==

== ENCOUNTER → 2025-06-02 15:46 | Outpatient (BNV) | payer MEDICAID, SELFPAY | PROVIDERS: Admitting Provider Psychiatry & Neurology Psychiatry; PCP Family Medicine; Visit Provider Internal Medicine | DX: I82.409 Acute embolism and thrombosis of unspecified deep veins of unspecified lower extremity (principal) | CPT/HCPCS: 99221 ==

== ENCOUNTER → 2025-06-02 15:46 | Outpatient (BNV) | payer OTHER, SELFPAY | PROVIDERS: Admitting Provider Psychiatry & Neurology Psychiatry; PCP Family Medicine; Visit Provider Nurse Practitioner Psychiatric/Mental Health | DX: F31.81 Bipolar II disorder (principal); F14.10 Cocaine abuse, uncomplicated; G35 Multiple sclerosis; F43.11 Post-traumatic stress disorder, acute; Z59.00 Homelessness unspecified; F42.4 Excoriation (skin-picking) disorder | CPT/HCPCS: 99231; 99232; 99499 ==

== ENCOUNTER 2025-07-21 18:09 | Outpatient (REF) | payer MEDICAID, SELFPAY ==
--- OUTSIDE RECORDS SUMMARY | 2025-07-21 13:00 | XMS_ITS | Encounter Summary ---
Author Organization [employer] Address [address] [place] [address] 7 [place] [address] Care Team Providers Care Sustainment Logistics Analyst Name Role Phone Tyesha Rogers MD Primary Care Provider [phone] Encounter Details Date Type Department Care Team ([facility] st Contact Info) Description 07/21/2025 1:00 PM EST Office Visit [facility] MEDICINE [address] [place], [place] [phone] Samantha Lima, ANP [address] [place] [address] Type 2 diabetes mellitus with hyperglycemia, with long-term current use of insulin (HCC) (Primary Dx); Hypoglycemia; MDD (major depressive disorder), recurrent severe, without psychosis (CMS/HCC) (HCC); Mood disorder (CMS/HCC); Malodorous urine; Constipation, unspecified constipation type; Polypharmacy Social History Tobacco Use Types Packs/Day Years [...] Female 07/11/2022 10:19 AM EDT Sexual Orientation Straight 07/14/2025 2: 53 PM EST documented as of this encounter Last Filed Vital Signs Vital Sign Reading Time Taken Comments Blood Pressure 148/86 07/21/2025 12:55 PM EST Pulse 83 07/21/2025 12:55 PM EST Temperature 36.2 C (97.2 F) 07/21/2025 12:55 PM EST Respiratory Rate 18 07/21/2025 12:55 PM EST Oxygen Saturation 99% 07/21/2025 12:55 PM EST Inhaled Oxygen Concentration - - Weight 81.9 kg (180 lb 9.6 oz) 07/21/2025 12:55 PM EST Height 157.5 cm (5' 2 ) 07/21/2025 12:55 PM EST Body Mass Index 33.03 07/21/2025 12:55 PM EST documented in this encounter Patient Instructions * Patient Instructions* BERNARD Escalona - 07/21/2025 1:00 PM EST Future Appointments Date Time [facility] Department [place] 08/01/2025 1:30 PM Hi Cortez, PharmD MEDICINE [facility] 08/04/2025 1:30 PM [facility] GREEN TEAM NURSE MEDICINE [facility] 10/23/2025 1:00 PM Katharine Carbone, OD [facility] documented in this encounter Progress Notes * BERNARD Escalona - 07/21/2025 1:00 PM EST SUBJECTIVE: Emily Tucker is a 54 y.o. year old female who presents for chronic disease management. Denies recent illness, injury, or hospitalization. PMH incl MS, T2DM w high A1c, hypertension, asthma hx of mood disorder, PTSD, cocaine abuse, multiple medical comorbidities includling history of DVT and pulmonary embolus on Eliquis, relapsing remitting multiple sclerosis, history of NSTEMI in 2018,chronic Uticaria and diabetic peripheral neuropathy H/o pancreatitis, chronic constipation Last visit w/ PCP 07/04/25 Acute Concerns: Called in reporting hypoglycemia: Patient reported her blood sugar was 64. Patient has a HX of diabetes, on insulin. Patient reported she eat breakfast and her symptoms improved. RN advised patient to check her BS regularly and if her symptoms worsen to go to the ED for further evaluation. RN scheduled an appt with a provider for follow up. Patient verbalized understanding. Today pt reports her BG has been all over the place. Fasting usually 200's, highest BG 400's. Taking meds as rx'd but eating inconsistently. Initially not interested in CGM but agrees to trial. Had one other episode of BG in 60's, also resolved after eating. Medications are dispensed by RN where she lives, but she doesn't always take all meds. Does report she does take metformin, tresiba and losartan as rx'd. Still constipated. Glycerin supp not covered by insurance. She accepts lactulose. Does report urinary frequency and malodorous urine today. Smokes cigarettes Social History Social History Narrative Not on file Problem List[1] Surgical History[2] Family History[3] Review of Systems Constitutional: Negative for chills and fever. HENT: Negative for sore throat. Respiratory: Negative for cough and shortness of breath. Cardiovascular: Negative for chest pain. Gastrointestinal: Positive for constipation. Negative for blood in stool and diarrhea. Endocrine: Negative for polydipsia, polyphagia and polyuria. Genitourinary: Positive for dysuria. Neurological: Negative for weakness. OBJECTIVE: Vitals: 07/21/25 1255 BP: (!) 148/86 BP Location: Left arm Patient Position: Sitting BP Cuff Size: Adult Pulse: 83 Resp: 18 Temp: 97.2 ??F (36.2 ??C) SpO2: 99% Weight: 180 lb 9.6 oz (81.9 kg) Height: 5' 2 (1.575 m) Physical Exam Constitutional: General: She is not in acute distress. Appearance: Normal appearance. She is not ill-appearing. HENT: Head: Normocephalic and atraumatic. Eyes: General: No scleral icterus. Extraocular Movements: Extraocular movements intact. Pupils: Pupils are equal, round, and reactive to light. Cardiovascular: Rate and Rhythm: Normal rate and regular rhythm. Pulmonary: Effort: Pulmonary effort is normal. No accessory muscle usage or respiratory distress. Neurological: Mental Status: She is alert and oriented to person, place, and time. Psychiatric: Mood and Affect: Mood normal. Behavior: Behavior normal. ASSESSMENT/PLAN Diagnoses and all orders for this visit: Type 2 diabetes mellitus with hyperglycemia, with long-term current use of insulin (HCC) (Primary) POC glu here 98 Pt reports 2 episodes of BG to 60's with resolution after eating Otherwise Bgs are high she says 200-400. She would benefit from CGM and we discuss this and she is open to it. Will send Rx here and hopefully CDTM anvil seating press operator visit can assist w/ application and teaching. Reviewed importance of eating consistently which she does not do, likely explains the wide variability in BG. Scheduled her appointment w/ CDTM for next week Call if any new hypoglycemia - POCT Glucose - Discontinue: Continuous Glucose Refrigerator Crater (FreeStyle Eloy 3 Virgie) device; 1 each Once per day. Use as directed for CGM - Continuous Glucose Sensor (FreeStyle Eloy 3 Plus Sensor) misc; 1 each every 15 days. Apply 1 every 15 days as directed for CGM - glucose blood (FreeStyle Precision Brent Test) test strip; Use to test blood sugar 3 times daily in case of CGM failure or extremes of BG - Continuous Glucose Refrigerator Crater (FreeStyle Eloy 3 Virgie) device; 1 each Once per day. Use as directed for CGM Hypoglycemia As above MDD (major depressive disorder), recurrent severe, without psychosis (CMS/HCC) (HCC) Complicating complex medical diagnosis self mgmt Mood disorder (CMS/HCC) As above Polypharmacy Declines medbox, has meds dispensed where she lives Urinary frequency UA normal. Will send out. Likely d/t hyperglycemia. - POCT Urinalysis Malodorous urine Comments: UA normal today. Encouraging good hydration. Orders: - Culture, Urine, Routine Follow Up: Future Appointments Date Time Provider Department Center 08/01/2025 1:30 PM Hi Cortez, ManasD MEDICINE [facility] 08/04/2025 1:30 PM [facility] GREEN TEAM NURSE MEDICINE [facility] 10/23/2025 1:00 PM Katharine Carbone, OD [facility] Medications Ordered Prior to Encounter[4] [1] Patient Active Problem List Diagnosis Asthma Mood disorder (CMS/HCC) Cervical dysplasia Chronic low back pain Cocaine use disorder (CMS/HCC) (HCC) Coronary artery disease Hypertension H/O: attempted suicide Habitual self-excoriation Dyslipidemia Multiple sclerosis Neuropathy Substance use disorder Opioid use disorder Posttraumatic stress disorder Recurrent kidney stones Type 2 diabetes mellitus with hyperglycemia ([facility]) Neurogenic bladder History of pulmonary embolism Tobacco use Ischemic heart disease Right wrist pain Hypomagnesemia LUCILLE (generalized anxiety disorder) Abnormal Pap smear of cervix Angioedema Abnormal uterine bleeding (AUB) History of DVT (deep vein thrombosis) Hot flashes IBS (irritable bowel syndrome) Lesion of bladder Obesity History of pancreatitis Pelvic pain in female Excoriation (skin-picking) disorder MDD (major depressive disorder), recurrent severe, without psychosis (CMS/HCC) (HCC) Attention deficit hyperactivity disorder (ADHD), combined type Attention or concentration deficit [2] Past Surgical History: Procedure Laterality Date APPENDECTOMY CHOLECYSTECTOMY EXTRACORPOREAL SHOCK WAVE LITHOTRIPSY TUBAL LIGATION [3] Family History Problem Relation Name Age of Onset Coronary artery disease Mother Diabetes type II Mother Hypertension Mother Diabetes type II Father Hypertension Father [4] Current Outpatient Medications on File Prior to Visit Medication Sig Dispense Refill acetaminophen (Tylenol) 325 MG tablet Take 2 or 3 tablets by mouth every 8 hours as needed for painand/or fever 100 tablet 1 Alcohol Swabs (Alcohol Pads) 70 % pads USE TO TEST FINGER STICK BLOOD SUGAR 3 (THREE) TIMES A DAY AND NEEDED when feeling ill 100 each 3 amLODIPine (Norvasc) 10 MG tablet Take 1 tablet (10 mg) by mouth Once per day. 90 tablet 3 ammonium lactate (Lac-Hydrin) 12 % lotion Apply 1 Application topically 2 times daily. apixaban (Eliquis) 5 MG tablet Take 1 tablet (5 mg) by mouth 2 times daily. 60 tablet 1 atorvastatin (Lipitor) 40 MG tablet Take 1 tablet (40 mg) by mouth Once per day. 90 tablet 3 bisacodyl (Dulcolax) 5 MG EC tablet Take 10 mg by mouth if needed each day. Do not crush, chew, or split. Blood Glucose Monitoring Suppl (FreeStyle Spray Lite) w/Device kit Use to test blood sugar bid dxdm 1 kit 0 Blood Pressure kit Check BP every day. Goal BP < 140/90 1 kit 0 cloNIDine (Catapres) 0.1 MG tablet Take 1 tablet (0.1 mg) by mouth if needed in the morning, at noon, and at bedtime (anxiety). 180 tablet 3 doxepin (SINEquan) 10 MG capsule Take 1 capsule (10 mg) by mouth at bedtime. 30 capsule 1 EPINEPHrine (EpiPen 2-Bashir) 0.3 MG/0.3ML injection syringe Inject 0.3 mL (0.3 mg) as directed if needed for anaphylaxis. 2 each 1 famotidine (Pepcid) 20 MG tablet Take 1 tablet (20 mg) by mouth 2 times daily. 60 tablet 0 FreeStyle lancets 1 each by [...] taking: Reported on 12/31/2024) 45 g 3 glycerin (Adult) 2 g suppository Insert 1 suppository (2 g) into the rectum if needed each day for constipation. 25 suppository 0 guanFACINE (Intuniv) 2 mg 24 hr tablet Take 2 mg by mouth Once per day. hydrocortisone 1 % cream Apply 1 Application. topically 2 times daily. insulin degludec (Tresiba FlexTouch) 100 UNIT/ML injection Administer subcutaneously 30 units daily6 mL 11 insulin lispro (HumaLOG) 100 UNIT/ML injection << Sliding Scale Comments >>100 - 149 8 units Call if less than 85263 - 199 10 units 200 - 249 [...] CRUSH, chew, OR split 360 tablet 0 naloxone (Narcan) 4 mg/0.1 mL nasal spray Administer 0.1 mL into affected nostril(s) if needed. (Patient not taking: Reported on 12/31/2024) nitroglycerin (Nitrostat) 0.[address] 1 tablet under the tongue if needed each day. PRN (Patient not taking: Reported on 12/31/2024) omeprazole (PriLOSEC) [address] capsule Take 40 mg by mouth Once per day. ondansetron ODT (Zofran-ODT) 4 MG disintegrating tablet Take 4 mg by mouth every 8 (eight) hours ifneeded for nausea or vomiting. prazosin (Minipress) 1 MG capsule Take 1 capsule (1 mg) by mouth at bedtime. 30 capsule 1 pregabalin (Lyrica) 25 MG capsule Take 25 mg by mouth in the morning and 25 mg at noon and 25 mg inthe evening. psyllium (Metamucil) 52.63 % powder 1 tsp once daily in 8 oz water 414 g 11 topiramate (Topamax) 100 MG tablet Take 1 tablet (100 mg) by mouth at bedtime. 30 tablet 1 traMADol (Ultram) 50 MG tablet Take 1 tablet (50 mg) by mouth if needed in the morning and at bedtime for severe pain. 56 tablet 0 traZODone (Desyrel) 50 MG tablet Take 50 mg by mouth at bedtime. May repeat once as needed. Ventolin HFA 108 (90 Base) MCG/ACT inhaler INHALE TWO PUFFS BY MOUTH EVERY 4 HOURS NEEDED FOR FOR WHEEZING 18 g 3 [DISCONTINUED] famotidine (Pepcid) 20 MG tablet Take 1 tablet (20 mg) by mouth in the morning and 1tablet (20 mg) in the evening. 60 tablet 1 No current facility-administered medications on file prior to visit. documented in this encounter Plan of Treatment Upcoming Encounters Date Type Department Care Team (Late st Contact Info) Description 08/01/2025 1:30 PM EST Medication Management [facility] MEDICINE [address] [place] [address] Hi Cortez, PharmD [address] [place] [address] 08/04/2025 1:30 PM EST Clinical Support [facility] MEDICINE [address] [place], [place] [phone] 10/23/2025 1:00 PM EST Office Visit [facility] OPTOMETRY [address] [place], [place] [phone] Katharine Carbone, OD [address] [place] [address] Scheduled Orders Name Type Priority Associated Diagnoses Orde r Schedule Culture, Urine, Routine Microbiology Routine Malodorous urine Ordered: 07/21/2025 documented as of this encounter Procedures Procedure Name Priority Date/Time Associated Diagnosis Comments POCT URINALYSIS DIPSTICK Routine 07/21/2025 1:05 PM EST Malodorous urine POCT GLUCOSE Routine 07/21/2025 12:56 PM EST Type 2 diabetes mellitus with hyperglycemia, with long-term current use of insulin (HCC) documented in this encounter Results * POCT Urinalysis (07/21/2025 1:05 PM EST) Color, UA Yellow Clarity, UA Clear Glucose, UA Negative Bilirubin, UA Negative Ketones, UA Negative Spec Grav, UA 1.015 Blood, UA Negative Negative, None Detected pH, UA 5.5 Protein, UA Negative Urobilinogen, UA 0.2 Leukocytes, UA Negative Negative, Rare, Trace Nitrite, UA Negative Negative, None Detected QC Media Lot # [id number] Lot# Expiration Date 6,026 Urine (Urine, Random) 07/21/2025 1:05 PM EST us Samantha Lima ANP POINT OF CARE TEST ENTER/EDIT OR DERABLES Final Result * POCT Glucose (07/21/2025 12:56 PM EST) Glucose Blood, POC 97 60 - 200 mg/dL QC Media Lot # [id number] Lot# Expiration Date 3,026 Blood Capillary blood specimen / Unknown 07/21/2025 12:56 PM EST us Samantha Lima ANP POINT OF CARE TEST ENTER/EDIT OR DERABLES Final Result documented in this encounter Visit Diagnoses Diagnosis Type 2 diabetes mellitus with hyperglycemia, with long-term current use of insulin ([facility])- Primary Hypoglycemia Hypoglycemia, unspecified MDD (major depressive disorder), recurrent severe, without psychosis (CMS/HCC) (HCC) Mood disorder (CMS/HCC) Unspecified episodic mood disorder Malodorous urine Constipation, unspecified constipation type Polypharmacy Issue of repeat prescriptions documented in this encounter Additional Health Concerns Assessment Noted Time PHQ-9 Depression Total Score: 14 12/31/ 025 1:25 PM EDT documented as of this encounter Care Teams Sustainment Logistics Analyst Relationship Specialty Start Date End Date Tyesha Rogers MD [address] [place] [id number] PCP - General Family Medicine 04/25/19 documented as of this encounter
--- OUTSIDE RECORDS SUMMARY | 2025-07-21 18:12 | XMS_ITS | Encounter Summary ---
Author Organization [email or web address] Address [address] [place] [address] 7 [place] [address] Care Team Providers Care Spine Specialist Name Role Phone Tyesha Rogers MD Primary Care Provider [phone] Reason for Visit * Reason Comments Care Coordination C3 JOSE JUANSARAH hale telephone call outreach Encounter Details Date Type Department Care Team (Latest Contact Info) Description 07/17/2025 Patient Outreach [facility] MEDICINE [address] [place] [address] Tyesha Rogers MD [address] [place] [address] Care Coordination (C3 MELITA York telephone call outreach) Social History Tobacco Use Types Packs/Day Years [...] PM EST documented as of this encounter Progress Notes * Aminata York - 07/17/2025 1:47 PM EST CHW Aminata York received incoming call from patient. Patient was returning follow up call per CHW'srequest for SDOH needs. Patient's name, and address confirmed. Patient states is doing well with no recent illnesses or emergency room visits. No further questions or concerns. CHW reinforced direct contact information or CM [phone] for any additional questions or concerns and extended clinic hours on Mondays and Wednesdays, and Walk-In Urgent Care Located in [facility]. Patient provided with after-hours line for [facility], , which offer night time triage service and option to transfer to integration architect provider if needed. Patient verbalizes understanding, and ableto repeat back to scientific writer. A follow up call will be placed within 10 days, patient agrees with plan. documented in this encounter Plan of Treatment Upcoming Encounters Date Type Department Care Team ([facility] st Contact Info) Description 08/01/2025 1:30 PM EST Medication Management [facility] MEDICINE [address] [place] [address] Hi Cortez, PharmD [address] [place] [address] 08/04/2025 1:30 PM EST Clinical Support [facility] MEDICINE [address] [place], [place] [phone] 10/23/2025 1:00 PM EST Office Visit [facility] OPTOMETRY [address] [place], [place] [phone] Katharine Carbone, OD [address] [place] [address] documented as of this encounter Visit Diagnoses Not on filedocumented in this encounter Additional Health Concerns Assessment Noted Time PHQ-9 Depression Total Score: 14 025 1:25 PM EDT documented as of this encounter Care Teams Spine Specialist Relationship Specialty Start Date End Date Tyesha Rogers MD [address] [place] [address] PCP - General Family Medicine 04/25/19 documented as of this encounter
--- OUTSIDE RECORDS SUMMARY | 2025-07-21 18:12 | XMS_ITS | Encounter Summary ---
Author Organization [employer] Address [address] [facility] 7t [place] [address] Care Team Providers Care Offensive Coordinator Name Role Phone Tyesha Rogers MD Primary Care Provider [phone] Encounter Details Date Type Department Care Team ([facility] st Contact Info) Description 02/21/2025 Orders Only [facility] MEDICINE [address] [place], [place] [phone] Tyesha Rogers MD [address] [place], [place] [phone] Social History Tobacco Use Types Packs/Day Years [...] PM EST documented as of this encounter Plan of Treatment Upcoming Encounters Date Type Department Care Team (Late st Contact Info) Description 08/01/2025 1:30 PM EST Medication Management [facility] MEDICINE [address] [place] [address] Hi Cortez, PharmD [address] [place] [address] 08/04/2025 1:30 PM EST Clinical Support [facility] [address] [place] [address] 10/23/2025 1:00 PM EST Office Visit [facility] OPTOMETRY [address] [place] [address] Katharine Carbone, OD [address] [place] [address] documented as of this encounter Visit Diagnoses Not on filedocumented in this encounter Additional Health Concerns Assessment Noted Time PHQ-9 Depression Total Score: 14 2 025 1:25 PM EDT documented as of this encounter Care Teams Offensive Coordinator Relationship Specialty Start Date End Date Tyesha Rogers MD [address] [place] [address] PCP - General Family Medicine 04/25/19 documented as of this encounter
--- OUTSIDE RECORDS SUMMARY | 2025-07-21 18:12 | XMS_ITS | Encounter Summary ---
Author Organization [employer] Address [address] [place] [address] 7 [place] [address] Care Team Providers Care Set Up Mold Technician Name Role Phone Tyesha Rogers MD Primary Care Provider [phone] Reason for Visit * Reason Onset Date Comments Hospital Follow-up 05/29/2024 Encounter Details Date Type Department Care Team (Late st Contact Info) Description 05/29/2024 Telephone [facility] MEDICINE [address] [place], [place] [phone] Tyesha Rogers MD [address] [place], [place] [phone] Hospital Follow-up Social History Tobacco Use Types [...] PM EST documented as of this encounter Miscellaneous Notes * Telephone Encounter - Silvino Gilliland - 05/29/2024 3:00 PM EDT Tc from pt requesting a HDF appt. Hospital: [facility] Date of admission: 05/28/24 Discharge date: 05/29/24 Diagnosed: urticaria documented in this encounter Plan of Treatment Upcoming Encounters Date Type Department Care Team (Late st Contact Info) Description 08/01/2025 1:30 PM EST Medication Management [facility] MEDICINE [address] [place] [address] Hi Cortez, PharmD [address] [place] [address] 08/04/2025 1:30 PM EST Clinical Support [facility] MEDICINE [address] [place] [address] 10/23/2025 1:00 PM EST Office Visit [facility] OPTOMETRY [address] [place] [address] Katharine Carbone, OD [address] [place] [address] documented as of this encounter Visit Diagnoses Not on filedocumented in this encounter Additional Health Concerns Assessment Noted Time PHQ-9 Depression Total Score: 24 024 10:42 AM EDT documented as of this encounter Care Teams Set Up Mold Technician Relationship Specialty Start Date End Date Tyesha Rogers MD [address] [place] [address] PCP - General Family Medicine 04/25/19 documented as of this encounter
--- OUTSIDE RECORDS SUMMARY | 2025-07-21 18:12 | XMS_ITS ---
Author Organization [employer] Address [address] [place] [address] 7 [place] [address] Care Team Providers Care Supervisor Sample Preparation Name Role Phone Tyesha Rogers MD Primary Care Provider [phone] CHW Complex Status:Enrolled (Active) Start date:12/11/2024 Enrollment date:12/11/2024 Enrollment reason:ADT Feed Overview ED- Pt went to [facility] ED on 12/10/24. Case Team Name Relationship Phone Aminata York(Responsible Staff) Continued Care and Services Coordination
--- OUTSIDE RECORDS SUMMARY | 2025-07-21 18:12 | XMS_ITS | Encounter Summary ---
Author Organization [employer] Address [address] [facility] 7t [place] [address] Care Team Providers Care Hospital Social Worker Name Role Phone Tyesha Rogers MD Primary Care Provider Encounter Details Date Type Department Care Team ([facility] st Contact Info) Description 07/17/2025 Patient Outreach [facility] MEDICINE [address] [place], [place] [phone] Tyesha Rogers MD [address] [place] [address] Social History Tobacco Use Types Packs/Day Years [...] Description 08/01/2025 1:30 PM EST Medication Management [facility] MEDICINE [address] [place] [address] Hi Cortez, PharmD [address] [place] [address] 08/04/2025 1:30 PM EST Clinical Support [facility] [address] [place] [address] 10/23/2025 1:00 PM EST Office Visit [facility] OPTOMETRY [address] [place] [address] Katharine Carbone, OD [address] [place] [address] documented as of this encounter Visit Diagnoses Not on filedocumented in this encounter Additional Health Concerns Assessment Noted Time PHQ-9 Depression Total Score: 14 2 025 1:25 PM EDT documented as of this encounter Care Teams Hospital Social Worker Relationship Specialty Start Date End Date Tyesha Rogers MD [address] [place] [address] PCP - General Family Medicine 04/25/19 documented as of this encounter
--- OUTSIDE RECORDS SUMMARY | 2025-07-21 18:12 | XMS_ITS | Encounter Summary ---
Author Organization [employer] Address [address] [facility] 7 [place] [address] Care Team Providers Care Yarn Rewinder Name Role Phone Tyesha Rogers MD Primary Care Provider [phone] Reason for Visit * Reason Onset Date Comments New Med Request 05/03/2024 Medication Question 05/03/2024 Encounter Details Date Type Department Care Team (Late st Contact Info) Description 05/03/2024 Telephone [facility] MEDICINE [address] [place], [place] [phone] Tyesha Rogers MD 230 [place], [place] [phone] New Med Request; Medication Question Social History [...] pt is no longer a patient at [facility] due to move and because the medications were prescribed by her psychiatrist,she should reach out to psychiatrist for these medications. Patient stated she is moving back to [place], date unknown, documentation writer again advised pt to contact psychiatrist as they are the prescriber and informed pt that Dr Rogers would be informed of move back. Patient verbalized understanding. --Dr Rogers Patient left our health center and moved to [place]. Her anxiety medications have been prescribed by her psychiatrist. * Telephone Encounter - Andrew Garcia - 05/03/2024 12:17 PM EDT Tc from patient calling to request a medication for anxiety will be flying from [facility] on 05/14 and would like it to be sent to [facility] Address: [address] [place] [address] documented in this encounter Plan of Treatment Upcoming Encounters Date Type Department Care Team (Late st Contact Info) Description 08/01/2025 1:30 PM EST Medication Management [facility] MEDICINE [address] [place] [address] Hi Cortez, PharmD 230 [place] [address] 08/04/2025 1:30 PM EST Clinical Support [facility] MEDICINE [address] [place] [address] 10/23/2025 1:00 PM EST Office Visit [facility] OPTOMETRY [address] [place], [place] [phone] Katharine Carbone, OD [address] [place] [address] documented as of this encounter Visit Diagnoses Not on filedocumented in this encounter Additional Health Concerns Assessment Noted Time PHQ-9 Depression Total Score: 21 024 10:41 AM EDT documented as of this encounter Care Teams Yarn Rewinder Relationship Specialty Start Date End Date Tyesha Rogers MD 230 [place] [address] PCP - General Family Medicine 04/25/19 documented as of this encounter
--- OUTSIDE RECORDS SUMMARY | 2025-07-21 18:12 | XMS_ITS | Encounter Summary ---
Author Organization [email or web address] Address [address] [place] [address] 7 [place] [address] Care Team Providers Care Loin Puller Name Role Phone Tyesha Rogers MD Primary Care Provider [phone] Reason for Visit * Reason Onset Date Comments Call Back Request 05/01/2025 Encounter Details Date Type Department Care Team ([facility] st Contact Info) Description 05/01/2025 Telephone [facility] MEDICINE [address] [place], [place] [phone] Tyesha Rogers MD 230 [place] [address] Call Back Request Social History Tobacco Use [...] Description 08/01/2025 1:30 PM EST Medication Management [facility] MEDICINE [address] [place] [address] Hi Cortez, PharmD [address] [place] [address] 08/04/2025 1:30 PM EST Clinical Support [facility] MEDICINE 230 [place] [address] 10/23/2025 1:00 PM EST Office Visit [facility] OPTOMETRY [address] [place] [address] Katharine Carbone, OD 230 [place] [address] documented as of this encounter Visit Diagnoses Not on filedocumented in this encounter Additional Health Concerns Assessment Noted Time PHQ-9 Depression Total Score: 14 025 1:25 PM EDT documented as of this encounter Care Teams Loin Puller Relationship Specialty Start Date End Date Tyesha Rogers MD 230 [place] [address] PCP - General Family Medicine 04/25/19 documented as of this encounter
--- OUTSIDE RECORDS SUMMARY | 2025-07-21 18:12 | XMS_ITS | Encounter Summary ---
Author Organization [employer] Address [address] [facility] 7t [place] [address] Care Team Providers Care Dish Up Person Name Role Phone Tyesha Rogers MD Primary Care Provider [phone] Encounter Details Date Type Department Care Team (Latest Contact Info) Description 07/21/2025 Travel Social History Tobacco Use Types Packs/Day [...] Description 08/01/2025 1:30 PM EST Medication Management [facility] MEDICINE [address] [place] [address] Hi Cortez, PharmD 230 [place] [address] 08/04/2025 1:30 PM EST Clinical Support [facility] 230 [place] [address] 10/23/2025 1:00 PM EST Office Visit [facility] OPTOMETRY [address] [place] [address] Katharine Carbone, OD 230 [place] [address] documented as of this encounter Visit Diagnoses Not on filedocumented in this encounter Additional Health Concerns Assessment Noted Time PHQ-9 Depression Total Score: 14 025 1:25 PM EDT documented as of this encounter Care Teams Dish Up Person Relationship Specialty Start Date End Date Tyesha Rogers MD 230 [place] [address] PCP - General Family Medicine 04/25/19 documented as of this encounter
--- OUTSIDE RECORDS SUMMARY | 2025-07-21 18:12 | XMS_ITS | Encounter Summary ---
Author Organization [employer] Address [address] [place] [address] 7 [place] [address] Care Team Providers Care Clothing Sorter Name Role Phone Tyesha Rogers MD Primary Care Provider [phone] Reason for Visit * Reason Onset Date Comments Nurse Triage 08/30/2023 Encounter Details Date Type Department Care Team ([facility] st Contact Info) Description 08/30/2023 Telephone [facility] MEDICINE [address] [place], [place] [phone] Tyesha Rogers MD 230 [place] [address] Nurse Triage Social History Tobacco Use Types [...] Call to Emily Tucker, reports currently with [facility] in [facility]. Pt reported CP and elevated BS. 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 Sent to team for ER status check [...] and stated is on her way to [facility]. * Telephone Encounter - Blanca Rachid - 08/30/2023 8:32 AM EST Symptoms: High Blood Sugar - Caller Reports, High Blood Pressure - Caller Reports Outcome: Transfer to a nurse or provider NOW! Reason: Chest pain The caller accepted this outcome documented in this encounter Plan of Treatment Upcoming Encounters Date Type Department Care Team (Late st Contact Info) Description 08/01/2025 1:30 PM EST Medication Management [facility] MEDICINE [address] [place] [address] Hi Cortez, PharmD 230 [place] [address] 08/04/2025 1:30 PM EST Clinical Support [facility] MEDICINE 230 [place] [address] 10/23/2025 1:00 PM EST Office Visit [facility] OPTOMETRY [address] [place] [address] Raf, Katharine, OD 230 [place] [address] documented as of this encounter Visit Diagnoses Not on filedocumented in this encounter Additional Health Concerns Assessment Noted Time PHQ-9 Depression Total Score: 21 07/10/ 023 9:42 AM EDT documented as of this encounter Care Teams Clothing Sorter Relationship Specialty Start Date End Date Tyesha Rogers MD 230 [place] [address] PCP - General Family Medicine 04/25/19 documented as of this encounter
--- OUTSIDE RECORDS SUMMARY | 2025-07-21 18:12 | XMS_ITS | Encounter Summary ---
Author Organization [employer] Address [address] [place] [address] 7 [place] [address] Care Team Providers Care Engineering Mgr Name Role Phone Tyesha Rogers MD Primary Care Provider [phone] Reason for Visit * Reason Onset Date Comments Order(s) 09/06/2023 Encounter Details Date Type Department Care Team (Late st Contact Info) Description 09/06/2023 Telephone [facility] MEDICINE [address] [place], [place] [phone] Tyesha Rogers MD 230 [place] [address] Order(s) Social History Tobacco Use Types Packs/Day [...] 9:17 AM EST Please disregard previous message, Supervisor De[employer]ation faxed orders. * Telephone Encounter - Silvino Gilliland - 09/06/2023 2:15 PM EST Tc clement Pike working with [facility] requesting order for diagnostic mammogram and ultrasound bi lateral 09/08/23 at 1:00 pm. If any questions please contact Glendy at [phone] documented in this encounter Plan of Treatment Upcoming Encounters Date Type Department Care Team (Late st Contact Info) Description 08/01/2025 1:30 PM EST Medication Management [facility] MEDICINE [address] [place] [address] Hi Cortez, PharmD [address] [place] [address] 08/04/2025 1:30 PM EST Clinical Support [facility] MEDICINE [address] [place] [address] 10/23/2025 1:00 PM EST Office Visit [facility] OPTOMETRY [address] [place] [address] Katharine Carbone, ZAHIDA 230 [place] [address] documented as of this encounter Visit Diagnoses Not on filedocumented in this encounter Additional Health Concerns Assessment Noted Time PHQ-9 Depression Total Score: 21 023 9:42 AM EDT documented as of this encounter Care Teams Engineering Mgr Relationship Specialty Start Date End Date Tyesha Rogers MD 230 [place], [place] [phone] PCP - General Family Medicine 04/25/19 documented as of this encounter
--- OUTSIDE RECORDS SUMMARY | 2025-07-21 18:12 | XMS_ITS | Encounter Summary ---
Author Organization [employer] Address [address] [place] [address] 7 [place] [address] Care Team Providers Care Circuit Breaker Assembler Name Role Phone Tyesha Rogers MD Primary Care Provider [phone] Reason for Visit * Reason Comments Med Refill Encounter Details Date Type Department Care Team (Late st Contact Info) Description 11/29/2023 Refill [facility] MEDICINE [address] [place], [place] [phone] Tyesha Rogers MD [address] [place], [place] [phone] Social History Tobacco Use Types Packs/Day Years [...] Description 08/01/2025 1:30 PM EST Medication Management [facility] MEDICINE [address] [place] [address] Hi Cortez, PharmD [address] [place] [address] 08/04/2025 1:30 PM EST Clinical Support [facility] MEDICINE [address] [place] [address] 10/23/2025 1:00 PM EST Office Visit [facility] OPTOMETRY [address] [place] [address] Katharine Carbone, OD 230 [place] [address] documented as of this encounter Visit Diagnoses Not on filedocumented in this encounter Additional Health Concerns Assessment Noted Time PHQ-9 Depression Total Score: 21 023 9:42 AM EDT documented as of this encounter Care Teams Circuit Breaker Assembler Relationship Specialty Start Date End Date Tyesha Rogers MD [address] [place] [address] PCP - General Family Medicine 04/25/19 documented as of this encounter
--- OUTSIDE RECORDS SUMMARY | 2025-07-21 18:12 | XMS_ITS | Encounter Summary ---
Author Organization [employer] Address [address] [place] [address] 7t [place] [address] Care Team Providers Care Rug Shampooer Name Role Phone Tyesha Rogers MD Primary Care Provider [phone] Encounter Details Date Type Department Care Team (Late st Contact Info) Description 08/11/2022 Orders Only [facility] [address] [place] [address] Loren Oliva MD 230 [place] [address] Social History Tobacco Use Types Packs/Day Years [...] Description 08/01/2025 1:30 PM EST Medication Management [facility] MEDICINE [address] [place] [address] Hi Cortez, ManasD 230 [place] [address] 08/04/2025 1:30 PM EST Clinical Support [facility] MEDICINE [address] [place] [address] 10/23/2025 1:00 PM EST Office Visit [facility] OPTOMETRY [address] [place], [place] [phone] Katharine Carbone, OD [address] [place], [place] [phone] documented as of this encounter Visit Diagnoses Not on filedocumented in this encounter Care Teams Rug Shampooer Relationship Specialty Start Date End Date Tyesha Rogers MD 230 [place], [place] [phone] PCP - General Family Medicine 04/25/19 documented as of this encounter
--- OUTSIDE RECORDS SUMMARY | 2025-07-21 18:12 | XMS_ITS | Encounter Summary ---
Author Organization [employer] Address [address] [place] [address] 7t [place] [address] Care Team Providers Care Cooler Man Name Role Phone Tyesha Rogers MD Primary Care Provider [phone] Encounter Details Date Type Department Care Team (Late st Contact Info) Description 10/29/2024 Orders Only [facility] 230 [place] [address] ProviderJhony MD Social History Tobacco Use Types [...] Description 08/01/2025 1:30 PM EST Medication Management [facility] MEDICINE 230 [place] [address] Hi Cortez, PharmD [address] [place] [address] 08/04/2025 1:30 PM EST Clinical Support [facility] MEDICINE [address] [place] [address] 10/23/2025 1:00 PM EST Office Visit [facility] OPTOMETRY [address] [place] [address] Katharine Carbone, OD 230 [place] [address] documented as of this encounter Procedures Procedure [...] documented as of this encounter Care Teams Cooler Man Relationship Specialty Start Date End Date Tyesha Rogers MD 230 [place] [address] PCP - General Family Medicine 04/25/19 documented as of this encounter
--- OUTSIDE RECORDS SUMMARY | 2025-07-21 18:12 | XMS_ITS | Encounter Summary ---
Author Organization [employer] Address [address] [place] [address] 7 [place] [address] Care Team Providers Care Backend Developer Name Role Phone Tyesha Rogers MD Primary Care Provider [phone] Reason for Visit * Reason Onset Date Comments fyi 07/07/2025 Encounter Details Date Type Department Care Team ([facility] st Contact Info) Description 07/07/2025 Telephone [facility] MEDICINE 230 [place], [place] [phone] Tyesha Rogers MD 230 [place] [address] fyi Social History Tobacco Use Types Packs/Day Years [...] encounter Miscellaneous Notes * Telephone Encounter - Katie York - 07/07/2025 9:09 AM EDT Tc from pt stating she receive a call, but does not from who Contact pt at [phone] documented in this encounter Plan of Treatment Upcoming Encounters Date Type Department Care Team (Late st Contact Info) Description 08/01/2025 1:30 PM EST Medication Management [facility] MEDICINE [address] [place] [address] Hi Cortez, PharmD [address] [place] [address] 08/04/2025 1:30 PM EST Clinical Support [facility] MEDICINE [address] [place] [address] 10/23/2025 1:00 PM EST Office Visit [facility] OPTOMETRY [address] [place] [address] Raf, Katharine, OD 230 [place] [address] documented as of this encounter Visit Diagnoses Not on filedocumented in this encounter Additional Health Concerns Assessment Noted Time PHQ-9 Depression Total Score: 14 025 1:25 PM EDT documented as of this encounter Care Teams Backend Developer Relationship Specialty Start Date End Date Tyesha Rogers MD 230 [place] [address] PCP - General Family Medicine 04/25/19 documented as of this encounter
--- OUTSIDE RECORDS SUMMARY | 2025-07-21 18:12 | XMS_ITS | Encounter Summary ---
Author Organization [employer] Address [address] [place] [address] 7t [place] [address] Care Team Providers Care Stencil Cutter Name Role Phone Tyesha Rogers MD Primary Care Provider [phone] Reason for Visit * Reason Onset Date Comments appt request 07/18/2025 Encounter Details Date Type Department Care Team ([facility] st Contact Info) Description 07/18/2025 Telephone [facility] MEDICINE 230 [place], [place] [phone] Tyesha Rogers MD 230 [place] [address] appt request Social History Tobacco Use Types Packs/Day Years [...] Miscellaneous Notes * Telephone Encounter - Soumya López RN - 07/18/2025 3:11 PM EST T/C to pt to status check pt. Pt states that she is feeling well, and has no ongoing symptoms of hypoglycemia. Pt states that she would like a visit with Dr. Rogers as soon as one open is available.Pt is on recall for August - no sooner visits at this time. * Telephone Encounter - La Fowler - 07/18/2025 10:11 AM EST TC from pt stated spoke to a nurse to have an appointment with provider to discuss medication. Multiple Wire Sawyer dont see any notes PCP Dr. Rogers documented in this encounter Plan of Treatment Upcoming Encounters Date Type Department Care Team (Late st Contact Info) Description 08/01/2025 1:30 PM EST Medication Management [facility] MEDICINE 230 [place] [address] Hi Cortez, PharmD 230 [place], [place] [phone] 08/04/2025 1:30 PM EST Clinical Support [facility] MEDICINE [address] [place] [address] 10/23/2025 1:00 PM EST Office Visit [facility] OPTOMETRY [address] [place], [place] [phone] Raf, Katharine, OD 230 [place] [address] documented as of this encounter Visit Diagnoses Not on filedocumented in this encounter Additional Health Concerns Assessment Noted Time PHQ-9 Depression Total Score: 14 12/31/ 025 1:25 PM EDT documented as of this encounter Care Teams Stencil Cutter Relationship Specialty Start Date End Date Tyesha Rogers MD 230 [place] [address] PCP - General Family Medicine 04/25/19 documented as of this encounter
--- OUTSIDE RECORDS SUMMARY | 2025-07-21 18:12 | XMS_ITS | Encounter Summary ---
Author Organization [employer] Address [address] [employer] 7t [place] [address] Care Team Providers Care Client Service Supervisor Name Role Phone Tyesha Rogers MD Primary Care Provider [phone] Encounter Details Date Type Department Care Team ([facility] st Contact Info) Description 01/25/2024 Orders Only [facility] MEDICINE [address] [place], [place] [phone] Tyesha Rogers MD 230 [place], [place] [phone] Social History Tobacco Use Types Packs/Day Years [...] 08/01/2025 1:30 PM EST Medication Management [facility] MEDICINE 230 [place] [address] Hi Cortez, PharmD [address] [place] [address] 08/04/2025 1:30 PM EST Clinical Support [facility] MEDICINE 230 [place] [address] 10/23/2025 1:00 PM EST Office Visit [facility] OPTOMETRY [address] [place] [address] Raf, Katharine, OD [address] [place] [address] documented as of this encounter Visit Diagnoses Not on filedocumented in this encounter Additional Health Concerns Assessment Noted Time PHQ-9 Depression Total Score: 21 024 10:41 AM EDT documented as of this encounter Care Teams Client Service Supervisor Relationship Specialty Start Date End Date Tyesha Rogers MD [address] [place] [address] PCP - General Family Medicine 04/25/19 documented as of this encounter
--- OUTSIDE RECORDS SUMMARY | 2025-07-21 18:12 | XMS_ITS | Encounter Summary ---
Author Organization [employer] Address [address] [place] [address] 7 [place] [address] Care Team Providers Care Security Administrator Name Role Phone Tyesha Rogers MD Primary Care Provider [phone] Reason for Visit * Reason Comments Med Refill Encounter Details Date Type Department Care Team (Late st Contact Info) Description 11/23/2024 Refill [facility] MEDICINE 230 [place], [place] [phone] Tyesha Rogers MD [address] [place], [place] [phone] Other chronic pain Social History Tobacco Use [...] Description 08/01/2025 1:30 PM EST Medication Management [facility] MEDICINE [address] [place] [address] Hi Cortez, PharmD [address] [place] [address] 08/04/2025 1:30 PM EST Clinical Support [facility] MEDICINE [address] [place] [address] 10/23/2025 1:00 PM EST Office Visit [facility] OPTOMETRY [address] [place] [address] Katharine Carbone, OD 230 [place] [address] documented as of this encounter Visit Diagnoses Diagnosis Other chronic pain documented in this encounter Additional Health Concerns Assessment Noted Time PHQ-9 Depression Total Score: 15 025 11:52 AM EST documented as of this encounter Care Teams Security Administrator Relationship Specialty Start Date End Date Tyesha Rogers MD 230 [place] [address] PCP - General Family Medicine 04/25/19 documented as of this encounter
--- OUTSIDE RECORDS SUMMARY | 2025-07-21 18:12 | XMS_ITS | Encounter Summary ---
Author Organization [employer] Address [address] [facility] 7t [place] [address] Care Team Providers Care Sr. Director Name Role Phone Tyesha Rogers MD Primary Care Provider [phone] Encounter Details Date Type Department Care Team ([facility] st Contact Info) Description 05/06/2024 Orders Only [facility] MEDICINE 230 [place], [place] [phone] Tyesha Rogers MD 230 [place], [place] [phone] Social History Tobacco Use Types Packs/Day Years [...] Description 08/01/2025 1:30 PM EST Medication Management [facility] MEDICINE [address] [place] [address] Hi Cortez, PharmD 230 [place] [address] 08/04/2025 1:30 PM EST Clinical Support [facility] MEDICINE [address] [place] [address] 10/23/2025 1:00 PM EST Office Visit [facility] OPTOMETRY [address] [place] [address] Raf, Katharine, OD 230 [place] [address] documented as of this encounter Visit Diagnoses Not on filedocumented in this encounter Additional Health Concerns Assessment Noted Time PHQ-9 Depression Total Score: 21 024 10:41 AM EDT documented as of this encounter Care Teams Sr. Director Relationship Specialty Start Date End Date Tyesha Rogers MD 230 [place] [address] PCP - General Family Medicine 04/25/19 documented as of this encounter
--- OUTSIDE RECORDS SUMMARY | 2025-07-21 18:12 | XMS_ITS | Encounter Summary ---
Author Organization [employer] Address [address] [place] [address] 7t [place] [address] Care Team Providers Care Ripening Room Operator Name Role Phone Tyesha Rogers MD Primary Care Provider [phone] Encounter Details Date Type Department Care Team ([facility] st Contact Info) Description 08/30/2022 Abstract [facility] MEDICINE 230 [place], [place] [phone] Tyesha Rogers MD 230 [place], [place] [phone] Social History Tobacco Use Types Packs/Day Years [...] Orientation Straight 07/14/2025 2: 53 PM EST COVID-19 Exposure Response Date Recorded In the [...] Description 08/01/2025 1:30 PM EST Medication Management [facility] MEDICINE [address] [place] [address] Hi Cortez, PharmD [address] [place] [address] 08/04/2025 1:30 PM EST Clinical Support [facility] [address] [place] [address] 10/23/2025 1:00 PM EST Office Visit [facility] OPTOMETRY [address] [place] [address] Raf, Katharine, OD 230 [place] [address] documented as of this encounter Visit Diagnoses Not on filedocumented in this encounter Additional Health Concerns Assessment Noted Time PHQ-9 Depression Total Score: 9 08/18/20 22 11:40 AM EST documented as of this encounter Care Teams Ripening Room Operator Relationship Specialty Start Date End Date Tyesha Rogers MD 230 [place] [address] PCP - General Family Medicine 04/25/19 documented as of this encounter
--- OUTSIDE RECORDS SUMMARY | 2025-07-21 18:12 | XMS_ITS | Encounter Summary ---
Author Organization [employer] Address [address] [place] [address] 7 [place] [address] Care Team Providers Care Photovoltaic Installation Technician Name Role Phone Tyesha Rogers MD Primary Care Provider [phone] Reason for Visit * Reason Comments Med Refill Encounter Details Date Type Department Care Team (Late st Contact Info) Description 07/15/2025 Refill [facility] 230 [place], [place] [phone] Tyesha Rogers MD 230 [place], [place] [phone] Neuropathy Social History Tobacco Use Types Packs/Day [...] Description 08/01/2025 1:30 PM EST Medication Management [facility] 230 [place] [address] Hi Cortez, PharmD 230 [place] [address] 08/04/2025 1:30 PM EST Clinical Support [facility] 230 [place] [address] 10/23/2025 1:00 PM EST Office Visit [facility] [address] [place] [address] Katharine Carbone, OD 230 [place] [address] documented as of this encounter Visit Diagnoses Diagnosis Neuropathy Mononeuritis of unspecified site documented in this encounter Additional Health Concerns Assessment Noted Time PHQ-9 Depression Total Score: 14 025 1:25 PM EDT documented as of this encounter Care Teams Photovoltaic Installation Technician Relationship Specialty Start Date End Date Tyesha Rogers MD 230 [place] [address] PCP - General Family Medicine 04/25/19 documented as of this encounter
--- OUTSIDE RECORDS SUMMARY | 2025-07-21 18:12 | XMS_ITS | Encounter Summary ---
Author Organization [employer] Address [address] [place] [address] 7 [place] [address] Care Team Providers Care Cashier Name Role Phone Tyesha Rogers MD Primary Care Provider [phone] Encounter Details Date Type Department Care Team ([facility] st Contact Info) Description 01/28/[address] [facility] 230 [place], [place] [phone] Mira Vanegas, PharmD 230 [place] [address] Social History Tobacco Use Types Packs/Day Years [...] Description 08/01/2025 1:30 PM EST Medication Management [facility] [address] [place] [address] Hi Cortez, PharmD 230 [place] [address] 08/04/2025 1:30 PM EST Clinical Support [facility] 230 [place] [address] 10/23/2025 1:00 PM EST Office Visit [facility] [address] [place] [address] Katharine Carbone, OD 230 [place] [address] documented as of this encounter Visit Diagnoses Not on filedocumented in this encounter Additional Health Concerns Assessment Noted Time PHQ-9 Depression Total Score: 14 2 025 1:25 PM EDT documented as of this encounter Care Teams Cashier Relationship Specialty Start Date End Date Tyesha Rogers MD 230 [place] [address] PCP - General Family Medicine 04/25/19 documented as of this encounter
--- OUTSIDE RECORDS SUMMARY | 2025-07-21 18:12 | XMS_ITS | Encounter Summary ---
Author Organization [employer] Address [address] [place] [address] 7 [place] [address] Care Team Providers Care Lead Die Molder Name Role Phone Tyesha Rogers MD Primary Care Provider [phone] Encounter Details Date Type Department Care Team ([facility] st Contact Info) Description 07/11/2024 Telephone [facility] 230 [place], [place] [phone] Mira Vanegas, PharmD 230 [place] [address] Social History Tobacco Use Types Packs/Day Years [...] Please assist in obtaining discharge paperwork from [facility] Patient was admitted on 06/21/2024. Thank you documented in this encounter Plan of Treatment Upcoming Encounters Date Type Department Care Team (Late st Contact Info) Description 08/01/2025 1:30 PM EST Medication Management [facility] 230 [place] [address] Hi Cortez, Yehuda 230 [place] [address] 08/04/2025 1:30 PM EST Clinical Support [facility] 230 [place] [address] 10/23/2025 1:00 PM EST Office Visit [facility] OPT[facility] [address] [place] [address] Katharine Carbone, OD 230 [place] [address] documented as of this encounter Visit Diagnoses Not on filedocumented in this encounter Additional Health Concerns Assessment Noted Time PHQ-9 Depression Total Score: 24 024 8:33 AM EDT documented as of this encounter Care Teams Lead Die Molder Relationship Specialty Start Date End Date Tyesha Rogers MD 230 [place] [address] PCP - General Family Medicine 04/25/19 documented as of this encounter
--- OUTSIDE RECORDS SUMMARY | 2025-07-21 18:12 | XMS_ITS | Encounter Summary ---
Author Organization [employer] Address [address] [place] [address] 7 [place] [address] Care Team Providers Care Welding Machine Assembler Name Role Phone Tyesha Rogers MD Primary Care Provider [phone] Reason for Visit * Reason Comments Med Refill Encounter Details Date Type Department Care Team (Late st Contact Info) Description 04/24/2024 Refill [facility] 230 [place], [place] [phone] Tyesha Rogers MD 230 [place], [place] [phone] Vitamin D deficiency; Hypothyroidism, unspecified type Social [...] requests. This patient is currently living in [place]. She left [facility]. Please seen Dr. Grimes's note in February 2024. Thank you documented in this encounter Plan of Treatment Upcoming Encounters Date Type Department Care Team (Late st Contact Info) Description 08/01/2025 1:30 PM EST Medication Management [facility] 230 [place] [address] Hi Cortez, PharmD 230 [place] [address] 08/04/2025 1:30 PM EST Clinical Support [facility] 230 [place] [address] 10/23/2025 1:00 PM EST Office Visit [facility] OPT[facility] [address] [place] [address] Katharine Carbone, OD 230 [place] [address] documented as of this encounter Visit Diagnoses Diagnosis Vitamin D deficiency Hypothyroidism, unspecified type documented in this encounter Additional Health Concerns Assessment Noted Time PHQ-9 Depression Total Score: 21 024 10:41 AM EDT documented as of this encounter Care Teams Welding Machine Assembler Relationship Specialty Start Date End Date Tyesha Rogers MD 230 [place] [address] PCP - General Family Medicine 04/25/19 documented as of this encounter
--- OUTSIDE RECORDS SUMMARY | 2025-07-21 18:12 | XMS_ITS | Encounter Summary ---
Author Organization [employer] Address [address] [place] [address] 7 [place] [address] Care Team Providers Care Natural Resources Engineer Name Role Phone Tyesha Rogers MD Primary Care Provider [phone] Reason for Visit * Reason Comments Med Refill Encounter Details Date Type Department Care Team (Late st Contact Info) Description 01/22/2024 Refill [facility] 230 [place], [place] [phone] Tyesha Rogers MD 230 [place], [place] [phone] Other chronic pain Social History Tobacco Use [...] Description 08/01/2025 1:30 PM EST Medication Management [facility] 230 [place] [address] Hi Cortez, PharmD 230 [place] [address] 08/04/2025 1:30 PM EST Clinical Support [facility] 230 [place] [address] 10/23/2025 1:00 PM EST Office Visit [facility] [address] [place] [address] Katharine Carbone, OD 230 [place] [address] documented as of this encounter Visit Diagnoses Diagnosis Other chronic pain documented in this encounter Additional Health Concerns Assessment Noted Time PHQ-9 Depression Total Score: 21 024 10:41 AM EDT documented as of this encounter Care Teams Natural Resources Engineer Relationship Specialty Start Date End Date Tyesha Rogers MD 230 [place] [address] PCP - General Family Medicine 04/25/19 documented as of this encounter
--- OUTSIDE RECORDS SUMMARY | 2025-07-21 18:12 | XMS_ITS | Encounter Summary ---
Author Organization [employer] Address [address] [place] [address] 7 [place] [address] Care Team Providers Care Nurse First Aid Name Role Phone Tyesha Rogers MD Primary Care Provider Reason for Visit * Reason Onset Date Comments Prior Authorization 07/21/2025 Encounter Details Date Type Department Care Team (Late st Contact Info) Description 07/21/2025 Telephone [facility] 230 [place], [place] [phone] Neha Mondragon, RN [address] [place] [address] Prior Authorization Social History Tobacco Use Types [...] Telephone Encounter - Arianne Champagne RN - 07/21/2025 4:38 PM EST Faxed signed PA for CGM [employer] 3 system to [employer], confirmation received. * Telephone Encounter - Neha Mondragon RN - 07/21/2025 2:28 PM EST CGM PA generated and placed on prescriber's desk. Pending signature PA for CGM please documented in this encounter Plan of Treatment Upcoming Encounters Date Type Department Care Team (Late st Contact Info) Description 08/01/2025 1:30 PM EST Medication Management [facility] [address] [place] [address] Hi Cortez, PharmD 230 [place] [address] 08/04/2025 1:30 PM EST Clinical Support [facility] 230 [place] [address] 10/23/2025 1:00 PM EST Office Visit [facility] [address] [place], [place] [phone] Raf, Katharine, OD 230 [place], [place] [phone] documented as of this encounter Visit Diagnoses Not on filedocumented in this encounter Additional Health Concerns Assessment Noted Time PHQ-9 Depression Total Score: 14 025 1:25 PM EDT documented as of this encounter Care Teams Nurse First Aid Relationship Specialty Start Date End Date Tyesha Rogers MD [address] [place] [address] PCP - General Family Medicine 04/25/19 documented as of this encounter
--- OUTSIDE RECORDS SUMMARY | 2025-07-21 18:12 | XMS_ITS | Encounter Summary ---
Author Organization [employer] Address [address] [place] [address] 7 [place] [address] Care Team Providers Care Subsorter Name Role Phone Tyesha Rogers MD Primary Care Provider [phone] Reason for Visit * Reason Onset Date Comments chart prep 07/18/2025 Encounter Details Date Type Department Care Team (Late st Contact Info) Description 07/18/2025 Telephone [facility]INE 230 [place], [place] [phone] Samantha Lima ANP 230 [place], [place] [phone] chart prep Social History Tobacco Use Types Packs/Day Years [...] encounter Miscellaneous Notes * Telephone Encounter - Nicky Gamboa [place] - 07/18/2025 8:56 AM EST Chart Prep Labs: done Images: done Referrals: complete Vaccines due: Covid and Zoster Screenings: colonoscopy, mammogram, and eye exam Overdue care gaps: Glucose documented in this encounter Plan of Treatment Upcoming Encounters Date Type Department Care Team (Late st Contact Info) Description 08/01/2025 1:30 PM EST Medication Management [facility]INE [address] [place] [address] Hi Cortez, PharmD 230 [place] [address] 08/04/2025 1:30 PM EST Clinical Support [facility] [address] [place] [address] 10/23/2025 1:00 PM EST Office Visit [facility] OPTOMET[facility] [address] [place] [address] Raf, Katharine, OD 230 [place] [address] documented as of this encounter Visit Diagnoses Not on filedocumented in this encounter Additional Health Concerns Assessment Noted Time PHQ-9 Depression Total Score: 14 025 1:25 PM EDT documented as of this encounter Care Teams Subsorter Relationship Specialty Start Date End Date Tyesha Rogers MD 230 [place] [address] PCP - General Family Medicine 04/25/19 documented as of this encounter
--- OUTSIDE RECORDS SUMMARY | 2025-07-21 18:12 | XMS_ITS | Encounter Summary ---
Author Organization [employer] Address [address] [facility] 7t [place] [address] Care Team Providers Care Automotive Parts Advisor Name Role Phone Tyesha Rogers MD Primary Care Provider [phone] Encounter Details Date Type Department Care Team ([facility] st Contact Info) Description 12/10/2024 Orders Only [facility]INE 230 [place], [place] [phone] Tyesha Rogers MD 230 [place], [place] [phone] Neuropathy Social History Tobacco Use Types Packs/Day [...] Description 08/01/2025 1:30 PM EST Medication Management [facility] 230 [place] [address] Hi Cortez, PharmD 230 [place] [address] 08/04/2025 1:30 PM EST Clinical Support [address] [address] 10/23/2025 1:00 PM EST Office Visit [facility] OPTOMETRY [address] [place] [address] Katharine Carbone, OD 230 [place] [address] documented as of this encounter Visit Diagnoses Diagnosis Neuropathy Mononeuritis of unspecified site documented in this encounter Additional Health Concerns Assessment Noted Time PHQ-9 Depression Total Score: 15 025 11:52 AM EST documented as of this encounter Care Teams Automotive Parts Advisor Relationship Specialty Start Date End Date Tyesha Rogers MD 230 [place] [address] PCP - General Family Medicine 04/25/19 documented as of this encounter
--- OUTSIDE RECORDS SUMMARY | 2025-07-21 18:12 | XMS_ITS | Encounter Summary ---
Author Organization [employer] Address [address] [place] [address] 7 [place] [address] Care Team Providers Care Senior Financial Analyst Name Role Phone Tyesha Rogers MD Primary Care Provider [phone] Reason for Visit * Reason Comments Med Refill Encounter Details Date Type Department Care Team (Late st Contact Info) Description 01/19/2025 Refill [facility] 230 [place], [place] [phone] Tyesha Rogers MD 230 [place], [place] [phone] Social History Tobacco Use Types Packs/Day Years [...] 1:30 PM EST Medication Management [facility] 230 [place] [address] Hi Cortez, PharmD 230 [place] [address] 08/04/2025 1:30 PM EST Clinical Support [facility] 230 [place] [address] 10/23/2025 1:00 PM EST Office Visit [facility] [address] [place] [address] Katharine Carbone, OD 230 [place] [address] documented as of this encounter Visit Diagnoses Not on filedocumented in this encounter Additional Health Concerns Assessment Noted Time PHQ-9 Depression Total Score: 14 025 1:25 PM EDT documented as of this encounter Care Teams Senior Financial Analyst Relationship Specialty Start Date End Date Tyesha Rogers MD 230 [place] [address] PCP - General Family Medicine 04/25/19 documented as of this encounter
--- OUTSIDE RECORDS SUMMARY | 2025-07-21 18:12 | XMS_ITS | Encounter Summary ---
Author Organization [employer] Address [address] [place] [address] 7 [place] [address] Care Team Providers Care User Interface Artist Name Role Phone Tyesha Rogers MD Primary Care Provider [phone] Reason for Visit * Reason Onset Date Comments Nurse Triage 07/17/2025 Encounter Details Date Type Department Care Team ([facility] st Contact Info) Description 07/17/2025 Telephone [facility] 230 [place], [place] [phone] Tyesha Rogers MD 230 [place] [address] Nurse Triage Social History Tobacco Use Types [...] encounter Miscellaneous Notes * Telephone Encounter - Reyna Denis RN - 07/17/2025 11:23 AM EST TC placed to patient. Patient reported upon waking this morning she felt shaky and a dry mouth. Patient reported her blood sugar was 64. Patient has a HX of diabetes, on insulin. Patient reported sheeat breakfast and her symptoms improved. RN advised patient to check her BS regularly and if her symptoms worsen to go to the ED for further evaluation. RN scheduled an appt with a provider for follow up. Patient verbalized understanding. Protocol Used: Diabetes - Low Blood Sugar (Adult) Protocol-Based Disposition: Discuss with PCP and Callback by Nurse within 1 Hour Video visit not offered Positive Triage Questions: * Low blood glucose (70 mg/dL [3.9 mmol/l] or below) OR symptomatic, now improved with Care Advice AND cause unknown * Patient wants to be seen * Low blood sugar prevention, questions about * Continuous glucose monitors and insulin pumps, questions about * All higher-acuity triage questions were negative Care Advice Discussed: * Reassurance and Education - Low Blood Sugar * Low Blood Sugar (Hypoglycemia) - Definition * Low Blood Sugar - Treatment - Eat Some (15-20 grams) Sugar Now * Low Blood Sugar - Treatment - If Patient Is Taking Precose (Acarbose) * Measure and Record Your Blood Glucose * Low Blood Sugar - Expected Course * Reasons To Call Back - Symptoms do not improve within 30 minutes - Sleepiness or confusion occur - You become worse * Let Your Friends and Family Know * Telephone Encounter - Umer Calero - 07/17/2025 10:57 AM EST Symptoms: Shaking, Dry Mouth, Low Blood Sugar - Caller Reports Outcome: Talk to a nurse or provider within 15 minutes Reason: Started within the past 24 hours The caller accepted this outcome. Contact pt at [phone] documented in this encounter Plan of Treatment Upcoming Encounters Date Type Department Care Team (Late st Contact Info) Description 08/01/2025 1:30 PM EST Medication Management [facility]ICINE [address] [place] [address] Hi Cortez, PharmD 230 [place] [address] 08/04/2025 1:30 PM EST Clinical Support [facility] 230 [place] [address] 10/23/2025 1:00 PM EST Office Visit [facility] OPTOMETRY [address] [place] [address] Raf, Katharine, OD 230 [place] [address] documented as of this encounter Visit Diagnoses Not on filedocumented in this encounter Additional Health Concerns Assessment Noted Time PHQ-9 Depression Total Score: 14 12/31/ 025 1:25 PM EDT documented as of this encounter Care Teams User Interface Artist Relationship Specialty Start Date End Date Tyesha Rogers MD 230 [place] [address] PCP - General Family Medicine 04/25/19 documented as of this encounter
--- OUTSIDE RECORDS SUMMARY | 2025-07-21 18:12 | XMS_ITS | Encounter Summary ---
Author Organization [employer] Address [address] [facility] 7t [place] [address] Care Team Providers Care Precision Assembly Inspector Name Role Phone Tyesha Rogers MD Primary Care Provider Encounter Details Date Type Department Care Team ([facility] st Contact Info) Description 11/01/2023 Telephone [facility] 230 [place], [place] [phone] Tyesha Rogers MD 230 [place], [place] [phone] Social History Tobacco Use Types Packs/Day Years [...] Description 08/01/2025 1:30 PM EST Medication Management [facility]INE 230 [place] [address] Hi Cortez, PharmD 230 [place] [address] 08/04/2025 1:30 PM EST Clinical Support [facility] 230 [place] [address] 10/23/2025 1:00 PM EST Office Visit [facility] [address] [place] [address] Raf, Katharine, OD 230 [place] [address] documented as of this encounter Visit Diagnoses Not on filedocumented in this encounter Additional Health Concerns Assessment Noted Time PHQ-9 Depression Total Score: 21 023 9:42 AM EDT documented as of this encounter Care Teams Precision Assembly Inspector Relationship Specialty Start Date End Date Tyesha Rogers MD 230 [place] [address] PCP - General Family Medicine 04/25/19 documented as of this encounter
--- OUTSIDE RECORDS SUMMARY | 2025-07-21 18:12 | XMS_ITS | Encounter Summary ---
Author Organization [employer] Address [address] [place] [address] 7 [place] [address] Care Team Providers Care Academic Counselor Name Role Phone Tyesha Rogers MD Primary Care Provider [phone] Reason for Visit * Reason Onset Date Comments Nurse Triage 11/01/2023 Encounter Details Date Type Department Care Team ([facility] st Contact Info) Description 11/01/2023 Telephone [facility] MEDICINE 230 [place], [place] [phone] Teysha Rogers MD 230 [place] [address] Nurse Triage Social History Tobacco Use Types [...] disposition at this time and will request [facility] for medications at time of [...] Description 08/01/2025 1:30 PM EST Medication Management [facility] MEDICINE 230 [place] [address] Hi Cortez, PharmD 230 [place] [address] 08/04/2025 1:30 PM EST Clinical Support [facility] MED[facility]INE [address] [place] [address] 10/23/2025 1:00 PM EST Office Visit [facility] OPTOMETRY [address] [place] [address] Katharine Carbone, OD 230 [place] [address] documented as of this encounter Visit Diagnoses Not on filedocumented in this encounter Additional Health Concerns Assessment Noted Time PHQ-9 Depression Total Score: 21 07/10/ 023 9:42 AM EDT documented as of this encounter Care Teams Academic Counselor Relationship Specialty Start Date End Date Tyesha Rogers MD 230 [place] [address] PCP - General Family Medicine 04/25/19 documented as of this encounter
--- OUTSIDE RECORDS SUMMARY | 2025-07-21 18:12 | XMS_ITS | Encounter Summary ---
Author Organization [employer] Address [address] [facility] 7t [place] [address] Care Team Providers Care Car Pusher Name Role Phone Tyesha Rogers MD Primary Care Provider [phone] Encounter Details Date Type Department Care Team ([facility] st Contact Info) Description 06/05/2024 Orders Only [facility] 230 [place], [place] [phone] Henry Choi MD 230 [place] [address] Social History Tobacco Use Types Packs/Day Years [...] PM EST Medication Management [facility]INE 230 [place] [address] Hi Cortez, PharmD 230 [place] [address] 08/04/2025 1:30 PM EST Clinical Support [facility]INE 230 [place] [address] 10/23/2025 1:00 PM EST Office Visit [facility] OPTOMETRY [address] [place] [address] Raf, Katharine, OD 230 [place] [address] documented as of this encounter Visit Diagnoses Not on filedocumented in this encounter Additional Health Concerns Assessment Noted Time PHQ-9 Depression Total Score: 24 024 10:42 AM EDT documented as of this encounter Care Teams Car Pusher Relationship Specialty Start Date End Date Tyesha Rogers MD 230 [place] [address] PCP - General Family Medicine 04/25/19 documented as of this encounter
--- OUTSIDE RECORDS SUMMARY | 2025-07-21 18:12 | XMS_ITS | Encounter Summary ---
Author Organization [employer] Address [address] [place] [address] 7 [place] [address] Care Team Providers Care Refrigeration Specialist Name Role Phone Tyesha Rogers MD Primary Care Provider [phone] Reason for Visit * Reason Onset Date Comments Appointment Request 01/13/2025 Encounter Details Date Type Department Care Team ([facility] st Contact Info) Description 01/13/2025 Telephone [facility] MEDICINE [address] [place], [place] [phone] Tyesha Rogers MD 230 [place], [place] [phone] Appointment Request Social History Tobacco Use Types [...] was cancelled to be rescheduled due to press writer not finding availability please return call to pt to be scheduled. Callback number [phone] Appointment type - Follow Up Notes - F/U allergic reaction. Sent to ED at last appt. Provider - Tyesha Rogers [phone] documented in this encounter Plan of Treatment Upcoming Encounters Date Type Department Care Team ([facility] st Contact Info) Description 08/01/2025 1:30 PM EST Medication Management [facility] MEDICINE [address] [place] [address] Hi Cortez, PharmD 230 [place] [address] 08/04/2025 1:30 PM EST Clinical Support [facility] MED[facility]INE 230 [place] [address] 10/23/2025 1:00 PM EST Office Visit [facility] OPTOMETRY [address] [place] [address] Katharine Carbone, OD 230 [place] [address] documented as of this encounter Visit Diagnoses Not on filedocumented in this encounter Additional Health Concerns Assessment Noted Time PHQ-9 Depression Total Score: 14 025 1:25 PM EDT documented as of this encounter Care Teams Refrigeration Specialist Relationship Specialty Start Date End Date Tyesha Rogers MD 230 [place] [address] PCP - General Family Medicine 04/25/19 documented as of this encounter
--- OUTSIDE RECORDS SUMMARY | 2025-07-21 18:12 | XMS_ITS | Encounter Summary ---
Author Organization [employer] Address [address] [facility] 7t [place] [address] Care Team Providers Care Metal Sponge Making Machine Operator Name Role Phone Tyesha Rogers MD Primary Care Provider [phone] Encounter Details Date Type Department Care Team ([facility] st Contact Info) Description 07/17/2023 Orders Only [facility] MEDICINE 230 [place], [place] [phone] Kinjal Ch MD [address] [place] [address] Social History Tobacco Use Types Packs/Day Years [...] 1:30 PM EST Medication Management [facility] MEDICINE 230 [place] [address] Hi Cortez, PharmD [address] [place] [address] 08/04/2025 1:30 PM EST Clinical Support [facility] MEDICINE 230 [place] [address] 10/23/2025 1:00 PM EST Office Visit [facility] OPTOMETRY [address] [place] [address] Raf, Katharine, OD 230 [place] [address] documented as of this encounter Visit Diagnoses Not on filedocumented in this encounter Additional Health Concerns Assessment Noted Time PHQ-9 Depression Total Score: 21 023 9:42 AM EDT documented as of this encounter Care Teams Metal Sponge Making Machine Operator Relationship Specialty Start Date End Date Tyesha Rogers MD [address] [place] [address] PCP - General Family Medicine 04/25/19 documented as of this encounter
--- OUTSIDE RECORDS SUMMARY | 2025-07-21 18:12 | XMS_ITS | Encounter Summary ---
Author Organization [facility] [employer] Address [address] [place] [address] 7 [place] [address] Care Team Providers Care Burglar Alarm Operator Name Role Phone Tyesha Rogers MD Primary Care Provider [phone] Reason for Visit * Reason Onset Date Comments Hospital Follow-up 05/07/2025 Encounter Details Date Type Department Care Team (Late st Contact Info) Description 05/07/2025 Telephone [facility] MEDICINE 230 [place], [place] [phone] Tyesha Rogers MD 230 [place], [place] [phone] Hospital Follow-up Social History Tobacco Use Types [...] from pt requesting a HDF appt. Hospital: [facility] Date of admission: 04/23/2025 Discharge date: 04/23/2025 Diagnosed: Fall twist of right ankle *Send message to [facility] Clinical Care Coordinators Spoke to: Heather with [facility] Contact [phone] documented in this encounter Plan of Treatment Upcoming Encounters Date Type Department Care Team ([facility] st Contact Info) Description 08/01/2025 1:30 PM EST Medication Management [facility] MEDICINE [address] [place] [address] Hi Cortez, PharmD 230 [place] [address] 08/04/2025 1:30 PM EST Clinical Support [facility] MEDICINE 230 [place] [address] 10/23/2025 1:00 PM EST Office Visit [facility] OPTOMETRY [address] [place] [address] Katharine Carbone, OD 230 [place] [address] documented as of this encounter Visit Diagnoses Not on filedocumented in this encounter Additional Health Concerns Assessment Noted Time PHQ-9 Depression Total Score: 14 025 1:25 PM EDT documented as of this encounter Care Teams Burglar Alarm Operator Relationship Specialty Start Date End Date Tyesha Rogers MD 230 [place] [address] PCP - General Family Medicine 04/25/19 documented as of this encounter
--- OUTSIDE RECORDS SUMMARY | 2025-07-21 18:12 | XMS_ITS | Encounter Summary ---
Author Organization [employer] Address [address] [place] [address] 7 [place] [address] Care Team Providers Care Varnish Cooker Name Role Phone Tyesha Rogers MD Primary Care Provider [phone] Encounter Details Date Type Department Care Team (Late st Contact Info) Description 08/08/2022 Abstract [facility] MEDICINE [address] [place] [address] Provider, MD Jhony Social History Tobacco Use [...] Description 08/01/2025 1:30 PM EST Medication Management [address] [address] Hi Cortez, PharmD 230 [place] [address] 08/04/2025 1:30 PM EST Clinical Support [address] [address] 10/23/2025 1:00 PM EST Office Visit [facility] OPTOMETRY [address] [place] [address] Katharine Carbone, OD 230 [place], [place] [phone] documented as of this encounter Visit Diagnoses Not on filedocumented in this encounter Care Teams Varnish Cooker Relationship Specialty Start Date End Date Tyesha Rogers MD [address] [place] [address] [place] [phone] PCP - General Family Medicine 04/25/19 documented as of this encounter
--- OUTSIDE RECORDS SUMMARY | 2025-07-21 18:12 | XMS_ITS | Encounter Summary ---
Author Organization [employer] Address [address] [place] [address] 7 [place] [address] Care Team Providers Care Manager Android Name Role Phone Tyesha Rogers MD Primary Care Provider [phone] Reason for Referral * Consultation (Routine) - Closed Specialty Diagnoses / Procedures Referred By Contac t Referred To Contact Diagnoses Type 2 diabetes mellitus with hyperglycemia, with long-term current use of insulin (HCC) Hypertension, unspecified type Multiple sclerosis Tyesha Rogers MD [address] [place] [address] Phone: tel: fax: [address] [address] Phone: tel: fax: Referral ID Status Reason Start Date Expiration Date V isits Requested Visits Authorized [id number] Closed Specialty Services Required 11/15/2024 11/15/2025 1 1 Encounter Details Date Type Department Care Team (Late st Contact Info) Description 11/15/2024 Orders Only [facility] MEDICINE [address] [place] [address] [phone] Tyesha Rogers MD [address] [place] [address] [phone] Type 2 diabetes mellitus with hyperglycemia, with long-term current use of insulin (CMS/HCC) (Primary Dx); Hypertension, unspecified type; Multiple sclerosis (CMS/HCC); Type 2 diabetes mellitus with hyperglycemia ([facility]/HCC); Type 2 diabetes mellitus with hyperglycemia, with long-term current use of insulin ([facility]) Social History Tobacco Use Types [...] Upcoming Encounters Date Type Department Care Team ([facility] st Contact Info) Description 08/01/2025 1:30 PM EST Medication Management [facility] MEDICINE 230 [place] [address] Hi Cortez, PharmD [address] [place] [address] 08/04/2025 1:30 PM EST Clinical Support [facility] MEDICINE 230 [place], [place] [phone] 10/23/2025 1:00 PM EST Office Visit [facility] OPTOMETRY [address] [place], [place] [phone] Raf, Katharine, OD 230 [place], [place] [phone] Scheduled Referrals Name Type Priority Associated Diagnoses Orde r Schedule Referral to Care Management Outpatient Referral Routine Type 2 diabetes mellitus with hyperglycemia, with long-term current use of insulin (CMS/HCC) Hypertension, unspecified type Multiple sclerosis (CMS/HCC) Expected: 11/15/2024 (Approximate), Expires: 11/15/2025 documented as of this encounter Visit Diagnoses Diagnosis Type 2 diabetes mellitus with hyperglycemia, with long-term current use of insulin (HCC)- Primary Hypertension, unspecified type Multiple sclerosis Type 2 diabetes mellitus with hyperglycemia (HCC) documented in this encounter Additional Health Concerns Assessment Noted Time PHQ-9 Depression Total Score: 15 025 11:52 AM EST documented as of this encounter Care Teams Manager Android Relationship Specialty Start Date End Date Tyesha Rogers MD 230 [place], [place] [phone] PCP - General Family Medicine 04/25/19 documented as of this encounter
--- OUTSIDE RECORDS SUMMARY | 2025-07-21 18:12 | XMS_ITS | Encounter Summary ---
Author Organization [employer] Address [address] [place] [address] 7 [place] [address] Care Team Providers Care Production Sound Mixer Name Role Phone Tyesha Rogers MD Primary Care Provider [phone] Reason for Visit * Reason Onset Date Comments Durable Medical Equipment 09/06/2023 Encounter Details Date Type Department Care Team (Late st Contact Info) Description 09/06/2023 Telephone [facility] MEDICINE [address] [place], [place] [phone] Tyesha Rogers MD 230 [place] [address] Durable Medical Equipment Social History Tobacco Use [...] wheels or seat. Please contact Pt @ [phone] documented in this encounter Plan of Treatment Upcoming Encounters Date Type Department Care Team (Late st Contact Info) Description 08/01/2025 1:30 PM EST Medication Management [facility] MEDICINE [address] [place] [address] Hi Cortez, PharmD 230 [place] [address] 08/04/2025 1:30 PM EST Clinical Support [facility] MEDICINE [address] [place] [address] 10/23/2025 1:00 PM EST Office Visit [facility] OPTOMETRY [address] [place] [address] Katharine Carbone, OD 230 [place] [address] documented as of this encounter Visit Diagnoses Not on filedocumented in this encounter Additional Health Concerns Assessment Noted Time PHQ-9 Depression Total Score: 21 023 9:42 AM EDT documented as of this encounter Care Teams Production Sound Mixer Relationship Specialty Start Date End Date Tyesha Rogers MD 230 [place] [address] PCP - General Family Medicine 04/25/19 documented as of this encounter
--- OUTSIDE RECORDS SUMMARY | 2025-07-21 18:12 | XMS_ITS | Encounter Summary ---
Author Organization [employer] Address [address] [facility] 7t [place] [address] Care Team Providers Care Body And Fender Mechanic Apprentice Name Role Phone Tyesha Rogers MD Primary Care Provider [phone] Reason for Visit * Reason Comments Care Management C3CM- F/U call Encounter Details Date Type Department Care Team ([facility] st Contact Info) Description 07/14/2025 Patient Outreach [facility]EDS [address] [place] [address] Tyesha Rogers MD [address] [place] [address] Care Management (C3CM- F/U call) Social History Tobacco Use Types Packs/Day Years [...] as of this encounter Progress Notes * Angel Sanchez RN - 07/14/2025 10:57 AM EST CM Angel Sanchez RN placed outbound call to patient. Patient's name, and address confirmed. Patient reports that she is currently staying at a program [facility]. Pt reports that she can stay there up to a yr. Pt requesting PT1 transportation to be set up for her neurology appointment that is scheduled for 10/14/25 @ [address] [place] [address]. She also needs transportation for eye exam scheduled on 10/23/25 @ 1 PM at [facility]. Looking at chart pt has a scheduled cardiology appointment ay [facility] on 08/25/25 @ 9:15 AM which she will most likely need transportation. CM will forward message to CHW to assist with scheduling PT1 transportation.follow up manager/drop off location would be where she is staying at [address] [place] [address]. No further questions or concerns. CM reinforced direct contact information or CHW for any additional questions or concerns. Education provided on [facility] located in [facility]. Patient provided with after-hours line for [facility], , which offer night time triage service and option to transfer to automotive power electronics engineer provider if needed. Patient verbalizes understanding, and able to repeat back to commercial lines underwriter. A follow up call will be placed within 10 days, patientagrees with plan. documented in this encounter Miscellaneous Notes * Care Plan - Angel Sanchez RN - 07/14/2025 10:57 AM EST Active Community Support Adequate Community Support (Progressing) Start: 01/02/25 Expected End: 04/01/25 Goal Note Patient reports that she is currently staying at a program called [employer] which is a [facility]. Pt reports that she can stay there up to a yr Coordination of Care Effectively coordinate care (Progressing) Start: 01/02/25 Expected End: 04/01/25 Goal Note Pt requesting PT1 transportation to be set up for her neurology appointment that is scheduled for 10/14/25 @ [address] [place] [address]. She also needs transportation for eye exam scheduled on 10/23/25 @ 1 PM at [facility]. Looking at chart pt has a scheduled cardiology appointment ay [facility] on 08/25/25@ 9:15 AM which she will most likely need transportation. CM will forward message to CHW to assist with scheduling PT1 transportation. follow up manager/drop off location would be where she is staying at [address] [place] [phone]. documented in this encounter Plan of Treatment Upcoming Encounters Date Type Department Care Team (Late st Contact Info) Description 08/01/2025 1:30 PM EST Medication Management [facility] MEDICINE [address] [place] [address] Hi Cortez, PharmD [address] [place] [address] 08/04/2025 1:30 PM EST Clinical Support [facility] MEDICINE [address] [place] [address] 10/23/2025 1:00 PM EST Office Visit [facility] OPTOMETRY [address] [place] [address] Katharine Carbone, OD 230 [place] [address] documented as of this encounter Visit Diagnoses Not on filedocumented in this encounter Additional Health Concerns Assessment Noted Time PHQ-9 Depression Total Score: 14 025 1:25 PM EDT documented as of this encounter Care Teams Body And Fender Mechanic Apprentice Relationship Specialty Start Date End Date Tyesha Rogers MD [address] [place] [address] PCP - General Family Medicine 04/25/19 documented as of this encounter
--- OUTSIDE RECORDS SUMMARY | 2025-07-21 18:12 | XMS_ITS | Encounter Summary ---
Author Organization [employer] Address [address] [place] [address] [facility] [place] [address] Care Team Providers Care Bundle Shaker Name Role Phone Tyesha Rogers MD Primary Care Provider [phone] Reason for Referral * Consultation (Routine) - Closed Specialty Diagnoses / Procedures Referred By Contac t Referred To Contact Pharmacy Diagnoses SBO (small bowel obstruction) (HCC) Tati Neri PharmD 230 [place] [address] Phone: tel: fax: Referral ID Status Reason Start Date Expiration Date V isits Requested Visits Authorized [id number] Closed Continuity of Care 12/07/2023 12/06/2024 1 1 Encounter Details Date Type Department Care Team (Late st Contact Info) Description 12/07/2023 Orders Only [facility] MEDICINE 230 [place], [place] [phone] Tati Neri PharmD 230 [place], [place] [phone] SBO (small bowel obstruction) (CMS/HCC) (Primary Dx) [...] Medication Management [facility] MEDICINE [address] [place] [address] iH Cortez, PharmD 230 [place] [address] 08/04/2025 1:30 PM EST Clinical Support [facility] MEDICINE [address] [place] [address] 10/23/2025 1:00 PM EST Office Visit [facility] OPTOMETRY [address] [place] [address] Katharine Carbone, OD 230 [place] [address] Scheduled Referrals Name Type Priority Associated Diagnoses Orde r Schedule Referral to Pharmacy MTM Outpatient Referral Routine SBO (small bowel obstruction) (CMS/HCC) Ordered: 12/07/2023 documented as of this encounter Visit Diagnoses Diagnosis SBO (small bowel obstruction) (HCC)- Primary Unspecified intestinal obstruction documented in this encounter Additional Health Concerns Assessment Noted Time PHQ-9 Depression Total Score: 21 023 9:42 AM EDT documented as of this encounter Care Teams Bundle Shaker Relationship Specialty Start Date End Date Tyesha Rogers MD 230 [place] [address] PCP - General Family Medicine 04/25/19 documented as of this encounter
--- OUTSIDE RECORDS SUMMARY | 2025-07-21 18:12 | XMS_ITS ---
Author Organization [employer] Address [address] [place] [address] 7 [place] [address] Care Team Providers Care Advisor To Command In Combat Name Role Phone Tyesha Rogers MD Primary Care Provider [phone] CM Complex Status:Enrolled (Active) Start date:12/11/2024 Enrollment date:12/31/2024 Enrollment reason:ADT Feed Overview ED- Pt went to [facility] ED on 12/10/24. Case Team Name Relationship Phone Angel Sanchez RN(Responsible Staff) Registered Katelin gomez [phone] Continued Care and Services Coordination
--- OUTSIDE RECORDS SUMMARY | 2025-07-21 18:12 | XMS_ITS | Encounter Summary ---
Author Organization [employer] Address [address] [facility] 7t [place] [address] Care Team Providers Care Parts Picker Name Role Phone Tyesha Rogers MD Primary Care Provider [phone] Encounter Details Date Type Department Care Team ([facility] st Contact Info) Description 04/23/[address] [facility] MEDICINE 230 [place], [place] [phone] Tyesha Rogers MD 230 [place], [place] [phone] Social History Tobacco Use Types Packs/Day Years [...] 08/01/2025 1:30 PM EST Medication Management [facility] MEDICINE [address] [place] [address] Hi Cortez, PharmD [address] [place] [address] 08/04/2025 1:30 PM EST Clinical Support [facility] 230 [place] [address] 10/23/2025 1:00 PM EST Office Visit [facility] OPTOMETRY [address] [place] [address] Katharine Carbone, OD 230 [place] [address] documented as of this encounter Procedures Procedure Name Priority Date/Time Associated Diagnosis Comments GLUCOSE, WHOLE BLOOD Routine 04/23/2025 11:53 AM EDT GLUCOSE, WHOLE BLOOD Routine 04/23/2025 11:21 AM EDT GLUCOSE, WHOLE BLOOD Routine 04/23/2025 10:52 AM EDT documented in this encounter Results * (ABNORMAL) Glucose, Whole Blood (04/23/2025 11:53 AM EDT) Glucose, Whole Blood 378(HH) 60 - 115 mg/dL [facility] Comment:METER #: [id number] 7 04/23/2025 11:5 3 AM EDT 04/23/2025 11:57 AM EDT us Generic External Data Provider LAB BLOOD ORDERAB LES Final Result Performing Organization Address City/[facility] Co de Phone Number [facility] [address] [place] [phone] * (ABNORMAL) Glucose, Whole Blood (04/23/2025 11:21 AM EDT) Glucose, Whole Blood 359(HH) 60 - 115 mg/dL [facility] Comment:METER #: [id number] 7 04/23/2025 11:2 1 AM EDT 04/23/2025 11:24 AM EDT us Generic External Data Provider LAB BLOOD ORDERAB LES Final Result Performing Organization Address [facility] de Phone Number [facility] [address] [place] [phone] * (ABNORMAL) Glucose, Whole Blood (04/23/2025 10:52 AM EDT) Glucose, Whole Blood 371(HH) 60 - 115 mg/dL [facility] Comment:METER #: [id number] 7 04/23/2025 10:5 2 AM EDT 04/23/2025 10:55 AM EDT us Generic External Data Provider LAB BLOOD ORDERAB LES Final Result Performing Organization Address [facility] Co de Phone Number [facility] [address] [place] [phone] documented in this encounter Visit Diagnoses Not on filedocumented in this encounter Additional Health Concerns Assessment Noted Time PHQ-9 Depression Total Score: 14 025 1:25 PM EDT documented as of this encounter Care Teams Parts Picker Relationship Specialty Start Date End Date Tyesha Rogers MD [address] [place] [address] PCP - General Family Medicine 04/25/19 documented as of this encounter
--- OUTSIDE RECORDS SUMMARY | 2025-07-21 18:13 | XMS_ITS | Encounter Summary ---
Author Organization [employer] Address [address] [place] [address] 7t [place] [address] Care Team Providers Care Supervisor Waterproofing Name Role Phone Tyesha Rogers MD Primary Care Provider [phone] Reason for Visit * Reason Onset Date Comments Nurse Triage 07/04/2023 Encounter Details Date Type Department Care Team (Late st Contact Info) Description 07/04/2023 Telephone [facility] MEDICINE 230 [place], [place] [phone] Tyesha Rogers MD 230 [place] [address] Nurse Triage Social History Tobacco Use Types [...] supposed to start the suboxone program at [facility] but, missedher appt. In May [...] on her way to Walk in at [facility]. I will send this note oliverio in [place] to let them know that pt. Will need a [facility] counselor present for appt. Pt. States that she will arrive to [facility] walk in around 1-130pm. Pt. [...] Description 08/01/2025 1:30 PM EST Medication Management [facility] MEDICINE [address] [place] [address] Hi Cortez, PharmD [address] [place] [address] 08/04/2025 1:30 PM EST Clinical Support [address] [address] 10/23/2025 1:00 PM EST Office Visit [facility] OPTOMETRY [address] [place] [address] Katharine Carbone, OD 230 [place] [address] documented as of this encounter Visit Diagnoses Not on filedocumented in this encounter Additional Health Concerns Assessment Noted Time PHQ-9 Depression Total Score: 9 08/18/20 22 11:40 AM EST documented as of this encounter Care Teams Supervisor Waterproofing Relationship Specialty Start Date End Date Tyesha Rogers MD 230 [place] [address] PCP - General Family Medicine 04/25/19 documented as of this encounter
--- OUTSIDE RECORDS SUMMARY | 2025-07-21 18:13 | XMS_ITS | Clinical Summary ---
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 Name Role Phone Tyesha Houston MD Primary Care Provider [phone] Allergies Active Allergy Reactions Criticality Noted Date Comments Asparagus 03/28/2017 Brassica Oleracea 03/28/2017 Cat Dander 08/30/2022 Dog Epithelium 08/30/2022 Dulaglutide Abdominal Pain 07/14/2025 pancreatitis Fluoxetine 03/18/2015 Other reaction(s): suicidality Other reaction(s): Fluoxetine Gramineae Pollens 08/30/2022 Green Coffee [place] Mate 03/28/2017 Iodinated Contrast Media Medium 05/13/2021 Other reaction(s): Unknown/Patient and Family Unable to Define Lisinopril Cough Medium 05/30/2017 Other reaction(s): Unknown/Patient and Family Unable to Define Lisinopril-Hydrochlorothia zide Cough 12/06/2016 [place] High 12/04/2018 Other reaction(s): stiffened up & throat closing Olanzapine 12/04/2018 Other reaction(s): can't recall if hives or increased suicidality Prednisone & Diphenhydramine 08/30/2022 Quetiapine 08/29/2018 Risperidone 03/28/2017 Tomato 03/28/2017 Other reaction(s): hives Valproic Acid High 12/04/2018 Other reaction(s): stiffened up, locked jaw Medications * This document contains information received from the source organization and may not represent a complete record from that organization. naloxone (Narcan) 4 mg/0.1 mL nasal spray Administer 0.1 mL into affected nostril(s) if needed. 2021 Active nitroglycerin (Nitrostat) 0.[address] 1 tablet under the tongue if needed each day. PRN Active glucose (Glutose) 40 % gel oral gelIndications:T ype 2 diabetes mellitus with hyperglycemia, with long-term current use of insulin (HCC) Administer 15 g orally as needed for blood glucose < 60 mg/dl. Use glucagon if pt cannot swallow or is unresponsive. Call emergency if pt is lethargic or unresponsive. 45 g 3 2022 Active Additional Information Patient not taking.Reported on 12/31/2024 insulin pen needle 32G x 5 mm misc Inject under the skin 4 times daily. Use as instructed 120 each 2024 Active Blood Glucose Monitoring Suppl (Vacunek Lite) w/Device kit Use to test blood sugar bid dx dm 1 kit 2024 Active Blood Pressure kit Check BP every day. Goal BP < 140/90 1 kit 2024 Active cloNIDine (Catapres) 0.1 MG tablet Take 1 tablet (0.1 mg) by mouth if needed in the morning, at noon, and at bedtime (anxiety). 180 tablet 3 2024 Active ammonium lactate (Lac-Hydrin) 12 % lotion Apply 1 Application topically 2 times daily. 2024 Active insulin lispro (HumaLOG) 100 UNIT/ML injectionIndicat ions:Type 2 diabetes mellitus with hyperglycemia, with long-term current use of insulin (HCC) << Sliding Scale Comments >>100 - 149 8 units Call if less than 26951 - 199 10 units 200 - 249 12 units 250 - 299 14 units 300 - 349 16 units Call if greater than 400... 20 mL 2 2024 Active amLODIPine (Norvasc) 10 MG tablet Take 1 tablet (10 mg) by mouth Once per day. 90 tablet 3 02/12 Active atorvastatin (Lipitor) 40 MG tablet Take 1 tablet (40 mg) by mouth Once per day. 90 tablet 3 2024 Active Alcohol Swabs (Alcohol Pads) 70 % pads USE TO TEST FINGER STICK BLOOD SUGAR 3 (THREE) TIMES A DAY AND NEEDED when feeling ill 100 each 3 2024 Active FREESTYLE LITE test stripIndications :Type 2 diabetes mellitus with hyperglycemia, with long-term current use of insulin ([facility]) USE TO TEST BLOOD SUGAR FOUR TIMES DAILY. FASTING (BEFORE BREAKFAST), BEFORE LUNCH, BEFORE DINNER AND 2 HOURS AFTER YOUR LARGEST MEAL OF THE DAY. 100 strip 3 2024 Active Ventolin HFA 108 (90 Base) MCG/ACT inhalerIndicatio ns:Moderate persistent asthma without complication INHALE TWO PUFFS BY MOUTH EVERY 4 HOURS NEEDED FOR FOR WHEEZING 18 g 3 2024 Active insulin degludec (Tresiba FlexTouch) 100 UNIT/ML injectionIndicat ions:Type 2 diabetes mellitus with hyperglycemia, with long-term current use of insulin ([facility]) Administer subcutaneously 30 units daily 6 mL 11 2024 Active FreeStyle lancetsIndicatio ns:Type 2 diabetes mellitus with hyperglycemia, with long-term current use of insulin ([facility]) 1 each by Other route 4 times daily. Test blood sugar 4 times a day 100 each 5 2024 Active omeprazole (PriLOSEC) [address] capsule Take 40 mg by mouth Once per day. 07/23 Active bisacodyl (Dulcolax) 5 MG EC tablet Take 10 mg by mouth if needed each day. Do not crush, chew, or split. Active guanFACINE (Intuniv) 2 mg 24 hr tablet Take 2 mg by mouth Once per day. Active pregabalin (Lyrica) 25 MG capsule Take 25 mg by mouth in the morning and 25 mg at noon and 25 mg in the evening. Active hydrocortisone 1 % cream Apply 1 Application. topically 2 times daily. Active traZODone (Desyrel) 50 MG tablet Take 50 mg by mouth at bedtime. May repeat once as needed. Active ondansetron ODT (Zofran-ODT) 4 MG disintegrating tablet Take 4 mg by mouth every 8 (eight) hours if needed for nausea or vomiting. Active traMADol (Ultram) 50 MG tabletIndication s:Chronic bilateral low back pain, unspecified whether sciatica present Take 1 tablet (50 mg) by mouth if needed in the morning and at bedtime for severe pain. 56 tablet 2024 Active acetaminophen (Tylenol) 325 MG tabletIndication s:Chronic bilateral low back pain, unspecified whether sciatica present Take 2 or 3 tablets by mouth every 8 hours as needed for pain and/or fever 100 tablet 1 2024 Active metFORMIN XR (Glucophage-XR) 500 MG 24 hr tabletIndication s:Type 2 diabetes mellitus with hyperglycemia (HCC) TAKE 2 TABLETS BY MOUTH WITH BREAKFAST AND TAKE 2 TABLETS BY MOUTH WITH DINNER. DO NOT CRUSH, chew, OR split 360 tablet 2024 Active losartan (Cozaar) 100 MG tablet TAKE 1 TABLET BY MOUTH ONCE DAILY 90 tablet 2024 Active EPINEPHrine (EpiPen 2-Bashir) 0.3 MG/0.3ML injection syringeIndicatio ns:Multiple allergies Inject 0.3 mL (0.3 mg) as directed if needed for anaphylaxis. 2 each 1 2024 Active prazosin (Minipress) 1 MG capsuleIndicatio ns:Posttraumatic stress disorder Take 1 capsule (1 mg) by mouth at bedtime. 30 capsule 1 09/12 Active topiramate (Topamax) 100 MG tabletIndication s:MDD (major depressive disorder), recurrent severe, without psychosis (CMS/HCC) (HCC),Mood disorder (CMS/HCC) Take 1 tablet (100 mg) by mouth at bedtime. 30 tablet 1 2024 Active apixaban (Eliquis) 5 MG tabletIndication s:History of pulmonary embolus (PE),History of DVT (deep vein thrombosis) Take 1 tablet (5 mg) by mouth 2 times daily. 60 tablet 1 2024 Active doxepin (SINEquan) 10 MG capsuleIndicatio ns:MDD (major depressive disorder), recurrent severe, without psychosis (CMS/HCC) (HCC) Take 1 capsule (10 mg) by mouth at bedtime. 30 capsule 1 2024 Active famotidine (Pepcid) 20 MG tabletIndication s:Epigastric pain Take 1 tablet (20 mg) by mouth 2 times daily. 60 tablet 2024 Active glycerin (Adult) 2 g suppositoryIndic ations:Constipat ion, unspecified constipation type Insert 1 suppository (2 g) into the rectum if needed each day for constipation. 25 suppository 2024 Active psyllium (Metamucil) 52.63 % powderIndication s:Constipation, unspecified constipation type 1 tsp once daily in 8 oz water 414 g 11 2024 Active Continuous Glucose Sensor (FreeStyle Eloy 3 Plus Sensor) miscIndications: Type 2 diabetes mellitus with hyperglycemia, with long-term current use of insulin ([facility]) 1 each every 15 days. Apply 1 every 15 days as directed for CGM 2 each 2024 Active glucose blood (FreeStyle Precision Brent Test) test stripIndications :Type 2 diabetes mellitus with hyperglycemia, with long-term current use of insulin ([facility]) Use to test blood sugar 3 times daily in case of CGM failure or extremes of BG 100 each 07/21 Active Continuous Glucose Corset Maker (FreeStyle Eloy 3 [place]) deviceIndication s:Type 2 diabetes mellitus with hyperglycemia, with long-term current use of insulin ([facility]) 1 each Once per day. Use as directed for CGM 1 each 2024 Active lactulose 20 gram/30 mL oral solutionIndicati ons:Constipation , unspecified constipation type 30mL as needed up to once daily for constipation 450 mL 2024 Active albuterol (2.5 MG/3ML) 0.083% nebulizer solution Inhale 3 mL in the morning, at noon, in the evening, and at bedtime. Inhale 3 ml by nebulization route every 4 hours 07/01 Discontinued( Med list cleanup (will not trigger notification to Pharmacy)) EPINEPHrine (EpiPen 2-Bashir) 0.3 MG/0.3ML injection syringe Inject 0.3 mL (0.3 mg) as directed if needed for anaphylaxis. 1 each 07/14 Discontinued( Reorder (will not trigger notification to Pharmacy)) FreeStyle lancets 1 each by Other route 4 times daily. Test blood sugar 4 times a day 100 each 5 06/27 Discontinued( Reorder (will not trigger notification to Pharmacy)) doxepin (SINEquan) 25 MG capsuleIndicatio ns:Neuropathy Take 1-2 capsules by mouth at bedtime as needed 60 capsule 5 07/01 Discontinued( Med list cleanup (will not trigger notification to Pharmacy)) prazosin (Minipress) 1 MG capsuleIndicatio ns:Posttraumatic stress disorder Take 1 capsule (1 mg) by mouth at bedtime. 30 capsule 1 07/14 Discontinued( Reorder (will not trigger notification to Pharmacy)) docusate sodium (Colace) 100 MG capsule Take 1 capsule by mouth 2 times daily. 07/01 Discontinued( Med list cleanup (will not trigger notification to Pharmacy)) calcium carbonate (Tums) 500 MG chewable tablet Chew 1 tablet if needed each day for indigestion or heartburn. 07/01 Discontinued( Med list cleanup (will not trigger notification to Pharmacy)) methocarbamol (Robaxin) 750 MG tablet Take 1 or 2 tablets by mouth three times daily as needed for muscle spasm 180 tablet 3 07/14 Discontinued( Therapy completed) acetaminophen (Tylenol) 500 MG tablet Take 2 tablets (1,000 mg) by mouth every 8 (eight) hours if needed for moderate pain or fever. 180 tablet 3 07/01 Discontinued( Discontinued by another clinician) bisacodyl (Dulcolax) 5 MG EC tablet Take 1 tablet by mouth once a day as needed for constipation / if no bowel movement for 3 days. Do not crush, chew, or split. 30 tablet 3 07/01 Discontinued( Dose adjustment) fluconazole (Diflucan) 150 MG tablet Take 1 tablet (150 mg) by mouth 1 (one) time per week. 42 tablet 07/14 Discontinued( Therapy completed) apixaban (Eliquis) 5 MG tablet TAKE 1 TABLET BY MOUTH two (2) times a day EVERY TWELVE HOURS 60 tablet 1 07/14 Discontinued( Reorder (will not trigger notification to Pharmacy)) metFORMIN XR (Glucophage-XR) 500 MG 24 hr tabletIndication s:Type 2 diabetes mellitus with hyperglycemia (HCC) TAKE 2 TABLETS BY MOUTH WITH BREAKFAST AND TAKE 2 TABLETS BY MOUTH WITH DINNER. DO NOT CRUSH, chew, OR split 360 tablet 07/11 Discontinued losartan (Cozaar) 100 MG tablet TAKE 1 TABLET BY MOUTH ONCE DAILY 90 tablet 07/11 Discontinued hydroCHLOROthiaz liban 12.5 MG tabletIndication s:Primary hypertension Take 1 tablet (12.5 mg) by mouth Once per day. 30 tablet 11 07/01 Discontinued( Med list cleanup (will not trigger notification to Pharmacy)) atomoxetine (Strattera) 18 MG capsuleIndicatio ns:Attention or concentration deficit Take 1 capsule (18 mg) by mouth in the morning. Swallow capsule whole; do not open. If opened accidentally, do not touch eyes; wash hands immediately (product is an eye irritant). 30 capsule 07/01 Discontinued( Med list cleanup (will not trigger notification to Pharmacy)) sertraline (Zoloft) 25 MG tabletIndication s:MDD (major depressive disorder), recurrent severe, without psychosis (CMS/HCC) (HCC) Take 1 tablet (25 mg) by mouth in the morning. 30 tablet 07/01 Discontinued( Med list cleanup (will not trigger notification to Pharmacy)) famotidine (Pepcid) 20 MG tablet Take 1 tablet by mouth in the morning and 1 tablet in the evening. 07/14 Discontinued( Reorder (will not trigger notification to Pharmacy)) aluminum & magnesium hydroxide-simeth icone (Antacid Regular Strength) 200-200-20 MG/5ML oral suspension Take 30 mL by mouth if needed in the morning, at noon, in the evening, and at bedtime. 07/07 acetaminophen (Tylenol) 325 MG tablet Take 3 tablets by mouth every 8 (eight) hours if needed. 07/03 Discontinued( Reorder (will not trigger notification to Pharmacy)) cyclobenzaprine (Flexeril) 10 MG tablet Take 5 mg by mouth if needed in the morning, at noon, and at bedtime. 07/14 Discontinued( Therapy completed) topiramate (Topamax) 100 MG tablet Take 100 mg by mouth at bedtime. 07/14 Discontinued( Reorder (will not trigger notification to Pharmacy)) diphenhydrAMINE (BENADryl) 25 MG capsule Take 25 mg by mouth every 6 (six) hours if needed for itching. 07/14 Discontinued( Ineffective) famotidine (Pepcid) 20 MG tabletIndication s:Epigastric pain Take 1 tablet (20 mg) by mouth in the morning and 1 tablet (20 mg) in the evening. 60 tablet 1 07/15 Discontinued Continuous Glucose Corset Maker (BUXStyle Eloy 3 [place]) deviceIndication s:Type 2 diabetes mellitus with hyperglycemia, with long-term current use of insulin (HCC) 1 each Once per day. Use as directed for CGM 1 each 07/21 Discontinued Hospital, Clinic, or Other Facility Administered Medication Ordered Dose Route Frequency Start Date End Date Status nitroglycerin (Nitrostat) SL tablet 0.4 mgIndications:Acut e chest pain,High risk of cardiac event 0.4 mg SL Every 5 min PRN 03/13/2025 Discontinued Active Problems Problem Noted Date Diagnosed Date Attention deficit hyperactiv ity disorder (ADHD), combined type 02/05/2025 Attention or concentration deficit 02/05/2025 Abnormal Pap smear of cervix 01/29/2025 Angioedema 01/29/2025 Abnormal uterine bleeding (AUB) 01/29/2025 History of DVT (deep vein thrombosis) 01/29/2025 Assessment & Plan (07/14/2025 3:39 PM EST): - unprovoked, 2019 - on apixaban since 2019 Hot flashes 01/29/2025 IBS (irritable bowel syndrome) 01/29/2025 Lesion of bladder 01/29/2025 History of pancreatitis 01/29/2025 Pelvic pain in female 01/29/2025 Excoriation (skin-picking) disorder 01/29/2025 LUCILLE (generalized anxiety disorder) 12/16/2024 Obesity 08/02/2024 Assessment & Plan (07/14/2025 3:43 PM EST): - she developed pancreatitis while she was on GLP1RA, dulaglutide - continue working on lifestyle modifications Hypomagnesemia 06/04/2024 Right wrist pain 08/25/2023 Assessment & Plan (08/25/2023 10:46 AM EST): Patient is on elequis so acetaminophen for pain Ice, wrist brace, XRAY and orthopedics referral MDD (major depressive disord er), recurrent severe, without psychosis (CMS/HCC) 01/27/2023 Assessment & Plan (07/14/2025 3:51 PM EST): Current Dx: Bipolar disorder, sometimes she is diagnosed with MDD. Occasionally with Lapel II due to borderline tendency and conversion disorder Hx suicide attempt several times (one time overdosed insulin) Previous [facility] provider: [facility], Dr. Alex is psychiatrist, previously Albina Duff was her therapist. Current behavioral health service provider: Encouraged to reach out to her [facility] therapist and psychiatrist for her concerns and medication management She was able to contract her safety today Assessment & Plan (07/14/2025 3:47 PM EST): >>ASSESSMENT AND PLAN FOR SEVERE EPISODE OF RECURRENT MAJOR DEPRESSIVE DISORDER, WITHOUT PSYCHOTIC FEATURES (CMS/HCC) (HCC) WRITTEN ON 01/27/2023 3:10 PM BY AARON BALL Assessment: Aminata was engaged with active reflective listening and open-ended questions. Assessed symptoms, risks, and social supports with direct questions. Discussed current symptoms intensity and frequency. Emotions were normalized and validated. Aminata identified using cocaine as coping mechanisms and her granddaughter as protective factors. Provided psychoeducation around Coping mechanism to address depression and anxiety sxs. She is engage in MH at [facility] with therapist Aminata Bolton. I will submit referral to [facility] for Psychiatrist services. Provided [...] motivation will serve as treatmetn engagement. PLAN: Follow up with [facility]: Not recommended for follow-up Patient goal is to become mentally stable and work on her sobriety Behavioral Recommendations Remind engage in MH services with [facility] Referral to [facility] for Psychiatrist services HC contact information for support. Assessment & Plan (07/14/2025 3:47 PM EST): >>ASSESSMENT AND PLAN FOR SEVERE EPISODE OF RECURRENT MAJOR DEPRESSIVE DISORDER, WITHOUT PSYCHOTIC FEATURES (CMS/HCC) ([facility]) WRITTEN ON 07/11/2023 8:28 AM BY GUSTAVO SALAS Emily has a h/o mood disorder, SI, cocaine use, OUD, depression, anxiety and PTSD. Eun reports anhedonia, feeling depressed, sleep disturbances, feeling tired, poor appetite, and overeating, guilt, trouble concentrating, feeling anxious, inability to control worry, worrisome, trouble relaxing, and restlessness. Emily agrees to go up to [facility], and attempt to reschedule with therapist. Emily is open to a referral to [facility] for psychiatric medication. She also requests to return to [facility]. LUCIUS Hatch has scheduled that appointment. Emily agrees to follow up with me at ext. [phone], if she is unable to connect with therapist. Ischemic heart disease 09/04/2022 Assessment & Plan (07/14/2025 3:37 PM EST): - physical education department chair: [facility]. Last seen in December 2022 - CAD, remote non-STEMI on 10/29, reported moderate CAD - History of DVT and likely PE at [facility], on apixaban and 12 contrast allergy with anaphylaxis. Assessment & Plan (02/12/2025 9:02 AM EDT): - physical education department chair: [facility]. Last seen in December 2022 - CAD, remote non-STEMI on 10/29, reported moderate CAD - History of DVT and likely PEA at [facility], on apixaban and 12 contrast allergy with anaphylaxis. Assessment & Plan (01/14/2025 11:12 AM EDT): - physical education department chair: [facility]. Last seen in December 2022 - CAD, remote non-STEMI on 10/29, reported moderate CAD - History of DVT and likely PEA at [facility], on apixaban and 12 contrast allergy with anaphylaxis. Assessment & Plan (08/25/2023 7:04 PM EST): - physical education department chair: [facility]. Last seen in December 2022 - CAD, remote non-STEMI on 10/29, reported moderate CAD - History of DVT and likely PEA at [facility], on apixaban and 12 contrast allergy with anaphylaxis. Assessment & Plan (12/22/2022 5:36 AM EDT): -[employer] Encaser: Umesh Forrester, last seen in Sep 2021 -Hx mild CAD, last cardiac cath on 03/06/20 -continue ARB and statin -continue working on lifestyle modification -not on ASA since she started taking Eliquis for PE -previously on propranolol for ARCEO, but no longer taking it due to Hx hypotension -follow-up with physical education department chair as scheduled Assessment & Plan (09/04/2022 12:05 PM EST): -[employer] Encaser: Umesh Forrester, last seen in Sep 2021 -Hx mild CAD, last cardiac cath on 03/06/20 -continue ARB and statin -continue working on lifestyle modification -not on ASA since she started taking Eliquis for PE -previously on propranolol for ARCEO, but no longer taking it due to Hx hypotension -follow-up with physical education department chair as scheduled Tobacco use 08/30/2022 Assessment & Plan (07/14/2025 3:57 PM EST): - work on smoking cessation - referred to lung cancer screening program; has not kept an appt - She has been smoking cigarettes since age 14. She was smoking few cigarette per day until age 21. Since age 21, she has been smoking about 1/2 ppd. - she has about 18 pack year at this time; will refer when she reaches 20 pack years. Hopefully she will quit smoking soon Assessment & Plan (02/12/2025 10:52 AM EDT): [...] cancer screening program Recurrent kidney stones 08/19/2022 Overview (07/14/2025 3:46 PM EST): >>OVERVIEW FOR KIDNEY STONE WRITTEN ON 01/29/2025 11:33 AM BY SUZI SOSA MA Left 1.2 cm Assessment & Plan (01/14/2025 11:13 AM EDT): Urologist: Dr. Roger SNIDER, last [...] & Plan (08/19/2022 10:40 AM EST): Urologist: [facility], Dr. Duran, last seen in Aug 2021 S/p right ESWL on 01/29/20 S/p left cystoscopy, retrograde laser and stent on 02/28/20 S/p removal on 04/07/21 S/p cystoscopy and ureteroscopy on 08/23/21 Drink water > 2L / day Neurogenic bladder 08/19/2022 Overview (08/19/2022): Followed by urologist History of pulmonary embolism 08/19/2022 Overview (08/19/2022): Hx DVT and PE in 2019, unprovoked Eliquis since 2019 Assessment & Plan (07/14/2025 3:39 PM EST): - DVT and PE in 2019, unprovoked - on apixaban since then Asthma 08/02/2022 Assessment & Plan (07/14/2025 3:53 PM EST): - Currently on mometasone (Asmanex) for ICS - Continue albuterol HFA and neb prn - Consider SMART - Work on smoking cessation Assessment & Plan (01/19/2025 10:34 PM EDT): - Change Flovent to Asmanex - Continue albuterol HFA and neb prn Assessment & Plan (08/25/2023 6:52 PM EST): - Change Flovent to Asmanex - Continue albuterol HFA and neb prn Mood disorder 08/02/2022 Assessment & Plan (02/12/2025 9:04 AM EDT): Current Dx: Bipolar disorder, sometimes she is diagnosed with MDD. Occasionally with Lapel II due to borderline tendency and conversion disorder Hx suicide attempt several times (one time overdosed insulin) [facility] provider: Dr. Abi MCDONNELL is psychiatrist, previously Albina Duff was her therapist. Encouraged to reach out to her [facility] therapist and psychiatrist for her concerns and medication management She was able to contract her safety today Assessment & Plan (01/14/2025 11:14 AM EDT): Current Dx: Bipolar disorder, sometimes she is diagnosed with MDD. Occasionally with Lapel II due to borderline tendency and conversion disorder Hx suicide attempt several times (one time overdosed insulin) [facility] provider: Dr. bAi MCDONNELL is psychiatrist, previously Albina Duff was her therapist. Encouraged to reach out to her [facility] therapist and psychiatrist for her concerns and medication management She was able to contract her safety today Assessment & Plan (08/25/2023 7:11 PM EST): Current Dx: Bipolar disorder, sometimes she is diagnosed with MDD. Occasionally with Lapel II due to borderline tendency and conversion disorder Hx suicide attempt several times (one time overdosed insulin) [facility] provider: Dr. Abi MCDONNELL is psychiatrist, previously Albina Duff was her therapist. Encouraged to reach out to her [facility] therapist and psychiatrist for her concerns and medication management She was able to contract her safety today Assessment & Plan (09/04/2022 12:10 PM EST): Current Dx: Bipolar disorder, sometimes she is diagnosed with MDD. Occasionally with Lapel II due to borderline tendency and conversion disorder [facility] provider: Dr. Abi MCDONNELL is psychiatrist, Albina Duff has been her therapist. Encouraged to reach out to her [facility] therapist and psychiatrist for her concerns and medication management She was able to contract her safety today Assessment & Plan (08/19/2022 11:13 AM EST): Current Dx: Bipolar disorder, sometimes she is diagnosed with MDD. Occasionally with Lapel II due to borderline tendency and conversion disorder [facility] provider: Dr. Abi MCDONNELL is psychiatrist, Albina Duff has been her therapist. Encouraged to reach out to her [facility] therapist and psychiatrist for her concerns and medication management She was able to contract her safety today Cervical dysplasia 08/02/2022 Cocaine use disorder (CMS/HCC) 08/02/2022 H/O: attempted suicide 08/02/2022 Substance use disorder 08/02/2022 Opioid use disorder 08/02/2022 Coronary artery disease 09/26/2018 Type 2 diabetes mellitus with hyperglycemia 09/11 Overview (01/13/2025): >>OVERVIEW FOR TYPE 2 DIABETES MELLITUS, WITH LONG-TERM CURRENT USE OF INSULIN ([facility]) WRITTEN ON 03/15/2023 10:18 AM BY SNEHA [...] modifications -Continue current medications Assessment & Plan (07/14/2025 3:42 PM EST): Hgb A1C 10.9% on 07/03/2025, improved from 12.6% 01/14/25 Continue working on lifestyle modifications Continue checking BG; discussed about CGM, pt will consider Improve medication adherence Continue basal insulin, Tresiba 26 units at bedtime Continue metformin ER 1000 mg bid Discussed about SGLT-2 inhibitor, but pt has frequent urinary symptoms (MS, recurrent nephrolithiasis); therefore, will hold off at this time Treatment Hx: Trulicity was discontinued in March 2022 when pt developed pancreatitis. Microalbumin test: 01/14/25, mild microalbuminuria Lipid profile: 01/14/25 Diabetic eye exam: Patient missed last eye appointment in February with [facility]. Recommended to reschedule Foot exam: 01/14/25 Neuropathy; callus; previously written a script for diabetic footwear. She did not go to [facility]. Referred to [facility] Assessment & Plan (02/12/2025 9:03 AM EDT): [...] Up coming eye appointment in February with [facility] Foot exam: 01/14/25 Neuropathy; callus; previously written a script for diabetic footwear. She did not go to [facility]. Referred to [facility] Assessment & Plan (01/19/2025 10:36 PM EDT): [...] Up coming eye appointment in February with [facility] Foot exam: 01/14/25 Neuropathy; callus; previously written a script for diabetic footwear. She did not go to [facility]. Referred to [facility] Assessment & Plan (01/13/2025 9:51 PM EDT): >>ASSESSMENT AND PLAN FOR TYPE 2 DIABETES MELLITUS, WITH LONG-TERM CURRENT USE OF INSULIN ([facility]) WRITTEN ON 08/25/2023 7:08 PM BY TYESHA [...] profile: 04/04/22 Diabetic eye exam: Referred to [facility] care in the past; will check its status Foot exam: 08/08/23 Neuropathy; callus; previously written a script for diabetic footwear. She did not go to [facility]. Will refer to [facility] Assessment & Plan (01/13/2025 9:51 PM EDT): >>ASSESSMENT AND PLAN FOR TYPE 2 DIABETES MELLITUS WITH HYPERGLYCEMIA (CMS/[facility]) WRITTEN ON 09/27/2023 6:06 AM BY TYESHA [...] profile: 04/04/22 Diabetic eye exam: Referred to [facility] Eye care in the past; will check its status Foot exam: 08/08/23 Neuropathy; callus; previously written a script for diabetic footwear. She did not go to [facility]. Will refer to [facility] >>ASSESSMENT AND PLAN FOR TYPE 2 DIABETES MELLITUS, WITH LONG-TERM CURRENT USE OF INSULIN (CMS/HCC) WRITTEN ON 09/27/2023 6:06 AM BY [...] profile: 04/04/22 Diabetic eye exam: Referred to [facility] Eye care in the past; will check its status Foot exam: 08/08/23 Neuropathy; callus; previously written a script for diabetic footwear. She did not go to [facility]. Will refer to [facility] Assessment & Plan (12/22/2022 5:56 AM EDT): [...] profile: 04/04/22 Diabetic eye exam: Referred to [facility] Eye care in the past; will check [...] profile: 04/04/22 Diabetic eye exam: Referred to [facility] Eye care in the past; will check [...] profile: 04/04/22 Diabetic eye exam: Referred to [facility] Eye care in the past; will check its status Foot exam: 08/18/22 Neuropathy; callus; written a script for diabetic footwear. Assessment & Plan (01/13/2025 9:51 PM EDT): >>ASSESSMENT AND PLAN FOR TYPE 2 DIABETES MELLITUS WITH HYPERGLYCEMIA (CMS/HCC) WRITTEN ON 08/19/2022 10:52 AM BY [...] profile: 04/04/22 Diabetic eye exam: Referred to [facility] Eye care in the past; will check [...] profile: 04/04/22 Diabetic eye exam: Referred to [facility] Eye care in the past; will check its status Foot exam: 08/18/22 Neuropathy; callus; will write a script for diabetic footwear. Dyslipidemia 08/29/2018 Overview (03/15/2023): Lab Results Component Value Date CHOLESTEROL 222 (H) 04/04/2022 LDLCHOL 124 (H) 04/04/2022 LDLCHOL 85 03/04/2022 LDLCHOL 131 (H) 08/27/2021 HDLCHOL 62 04/04/2022 CHOLHDLRAT 3.6 04/04/2022 -continue lifestyle modifications Assessment & Plan (07/04/2025 3:09 AM EDT): Current medication: atorvastatin 40 mg at bedtime Last lipid profile: 01/14/25 Continue current medication and lifestyle modification Assessment & Plan (02/12/2025 9:02 AM EDT): [...] modifications -Continue current medications Assessment & Plan (07/14/2025 3:37 PM EST): -Goal BP <130/80 per ACC/AHA. 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 Upcoming appointment. Current medication: Octrevus, started in May 2022 Flare-up frequency > 2x / year Last flare-up in Jun 2020, hospitalized in [facility], dexamathasone was not given due to concern for PML Last imaging studies: MRI brain / cervical spine in Jun 2024 at [facility] Followed by urologist for neurogenic bladder, recurrent UTI and recurrent kidney stone Treatment Hx: -Tysabri (Natalizumab) q4wks, 03/2020-05/2022 (Interruption due to concern for PML 06/2020-11/2020) -Gabapentin, pregabalin for pain, but discontinued due to side effect and ineffectiveness Pt was recommended to check with neurology office for MRI appt Assessment & Plan (02/12/2025 9:05 AM EDT): Neurologist: [facility], last seen in Jun 2023 Current medication: Octrevus, started in May 2022 Flare-up frequency > 2x / year Last flare-up in Jun 2020, hospitalized in [facility], dexamathasone was not given due to concern for PML Last imaging studies: MRI brain / cervical spine in Jun 2024 at [facility] Followed by urologist for neurogenic bladder, recurrent UTI and recurrent kidney stone Treatment Hx: -Tysabri (Natalizumab) q4wks, 03/2020-05/2022 (Interruption due to concern for PML 06/2020-11/2020) -Gabapentin, pregabalin for pain, but discontinued due to side effect and ineffectiveness Pt was recommended to check with neurology office for MRI appt Assessment & Plan (01/19/2025 10:32 PM EDT): Neurologist: [facility], last seen in Jun 2023 Current medication: Octrevus, started in May 2022 Flare-up frequency > 2x / year Last flare-up in Jun 2020, hospitalized in [facility], dexamathasone was not given due to concern for PML Last imaging studies: MRI brain / cervical spine in Jun 2024 at [facility] Followed by urologist for neurogenic bladder, recurrent UTI and recurrent kidney stone Treatment Hx: -Tysabri (Natalizumab) q4wks, 03/2020-05/2022 (Interruption due to concern for PML 06/2020-11/2020) -Gabapentin, pregabalin for pain, but discontinued due to side effect and ineffectiveness Pt was recommended to check with neurology office for MRI appt Assessment & Plan (09/27/2023 6:08 AM EST): Neurologist: [facility], last seen in Jun 2023 Current medication: Octrevus, started in May 2022 Flare-up frequency > 2x / year Last flare-up in Jun 2020, hospitalized in [facility], dexamathasone was not given due to concern for PML Last imaging studies: MRI brain / cervical spine in Apr 2022 at [facility] Followed by urologist for neurogenic bladder, recurrent UTI and recurrent kidney stone Treatment Hx: -Tysabri (Natalizumab) q4wks, 03/2020-05/2022 (Interruption due to concern for PML ) -Gabapentin, pregabalin for pain, but discontinued due to side effect and ineffectiveness Pt was recommended to check with neurology office for MRI appt Assessment & Plan (08/25/2023 6:51 PM EST): Neurologist: [facility], last seen in Jun 2023 Current medication: Octrevus, started in May 2022 Flare-up frequency > 2x / year Last flare-up in Jun 2020, hospitalized in [facility], dexamathasone was not given due to concern for PML Last imaging studies: MRI brain / cervical spine in Apr 2022 at [facility] Followed by urologist for neurogenic bladder, recurrent UTI and recurrent kidney stone Treatment Hx: -Tysabri (Natalizumab) q4wks, 03/2020-05/2022 (Interruption due to concern for PML 06/2020-11/2020) -Gabapentin, pregabalin for pain, but discontinued due to side effect and ineffectiveness Pt was recommended to check with neurology office for MRI appt Assessment & Plan (12/22/2022 5:55 AM EDT): Neurologist: [facility], last seen on 12/20/22 Current medication: Octrevus, started in May 2022, 2nd dose scheduled on 12/31/22 Flare-up frequency > 2x / year Last flare-up in Jun 2020, hospitalized in [facility], dexamathasone was not given due to concern for PML Last imaging studies: MRI brain / cervical spine in Apr 2022 at [facility] Followed by urologist for neurogenic bladder, recurrent UTI and recurrent kidney stone Treatment Hx: Tysabri (Natalizumab) q4wks, 03/2020-05/2022 (Interruption due to concern for PML 06/2020-11/2020) Copaxone (weight gain), aubagio (wt gain and hair loss), Gabapentin, pregabalin for pain, but discontinued due to side effect and ineffectiveness Assessment & Plan (10/03/2022 5:51 AM EST): Neurologist: [facility], last seen on 05/12/22 Current medication: Octrevus, started in May 2022 Flare-up frequency > 2x / year Last flare-up in Jun 2020, hospitalized in [facility], dexamathasone was not given due to concern for PML Last imaging studies: MRI brain / cervical spine in Apr 2022 at [facility] Followed by urologist for neurogenic bladder, recurrent UTI and recurrent kidney stone Treatment Hx: Tysabri (Natalizumab) q4wks, 03/2020-05/2022 (Interruption due to concern for PML 06/2020-11/2020) Gabapentin, pregabalin for pain, but discontinued due to side effect and ineffectiveness Assessment & Plan (08/19/2022 11:02 AM EST): Neurologist: [facility], last seen on 04/08/22 Current medication: Octrevus, started in May 2022 Flare-up frequency > 2x / year Last flare-up in Jun 2020, hospitalized in [facility], dexamathasone was not given due to concern for PML Last imaging studies: MRI brain / cervical spine in Apr 2022 at [facility] Followed by urologist for neurogenic bladder, [...] Problem Noted Date Diagnosed Date Resolved Date Abdominal pain 01/29/2025 07/14/2025 Dysmenorrhea 01/29/2025 02/27/2025 Elevated lipase 01/29/2025 07/14/2025 Perimenopause 01/29/2025 07/14/2025 UTI (urinary tract infection), bacterial 01/29/2025 07/14/2025 Vulvar abscess 01/29/2025 07/14/2025 Acute hyperglycemia 01/29/2025 07/14/20 History of pulmonary embolus (PE) 01/29/2025 07/14/2025 Multiple sclerosis exacerbation 01/29/2025 07/14/2025 Hypertensive emergency 06/26/202407/14 Assessment & Plan (06/26/2024 12:15 PM EDT): EMS called, patient presented to Y[facility]AN Garcia to the [facility] emergency department Acute hyperglycemia 06/26/2024 01/20/20 Assessment & Plan (06/26/2024 12:15 PM EDT): EMS called, patient presented to YORDAN Garcia to the [facility] emergency department Daytime somnolence 12/19/2018 2 Encounters * This document contains information received from the source organization and may not represent a complete record from that organization. Date Type Department Care Team Description 07/21/2025 1:00 PM EST Office Visit [facility] [address] [place] [id number] Samantha Lima, BERNARD Type 2 diabetes mellitus with hyperglycemia, with long-term current use of insulin (HCC) (Primary Dx); Hypoglycemia; MDD (major depressive disorder), recurrent severe, without psychosis (CMS/HCC) (HCC); Mood disorder (CMS/HCC); Malodorous urine; Constipation, unspecified constipation type; Polypharmacy 07/21/[address] [address] Neha Mondragon RNacoustical logging engineer 07/21/2025 Travel 07/18/[address] [address] Tyesha Houston MD appt request 07/18/[address] [address] Samantha Lima ANP chart prep 07/17/2025 Patient Outreach [address] [address] Tyesha Houston MD Care Coordination ([address] Aminata York telephone call outreach) 07/17/2025 Patient Outreach [address] [address] Tyesha Houston MD 07/17/[address] [address] Tyesha Houston MD Nurse Triage 07/15/[address] [phone] Tyesha Houston MD Neuropathy 07/14/2025 1:00 PM EST Office Visit [address] [address] Samantha Lima ANP Multiple allergies (Primary Dx); Encounter for immunization; Posttraumatic stress disorder; MDD (major depressive disorder), recurrent severe, without psychosis (CMS/HCC) (HCC); Mood disorder (CMS/HCC); Epigastric pain; Abnormal thyroid function test; History of pulmonary embolus (PE); History of DVT (deep vein thrombosis); Constipation, unspecified constipation type 07/14/2025 Telephone [facility] [address] [place] [address] Alva Frias RN 07/14/[address] [address] Samantha Lima ANP Epigastric pain 07/14/2025 Patient Outreach [facility] [address] [place], [place] [phone] Tyesha Houston MD 07/14/2025 Travel 07/14/2025 Patient Outreach [facility] [address] [place], [place] [phone] Tyesha Houston MD Care Management (C3CM- F/U call) 07/14/[address] [address] Tyesha Houston MD Nurse Triage 07/09/[address] [address] Lorie Goncalves MD Type 2 diabetes mellitus with hyperglycemia (HCC) 07/07/[address] [phone] Tyesha Houston MD fyi 07/03/2025 11:15 AM EDT Office Visit [address] [address] Tyesha Houston MD Hypertension, unspecified type (Primary Dx); Dyslipidemia; Type 2 diabetes mellitus with hyperglycemia, with long-term current use of insulin (HCC); Multiple sclerosis; Moderate persistent asthma without complication; Chronic bilateral low back pain, unspecified whether sciatica present; Breast cancer screening by mammogram; Generalized abdominal pain; Ischemic heart disease; History of pulmonary embolism; History of DVT (deep vein thrombosis); Class 1 obesity due to excess calories with serious comorbidity and body mass index (BMI) of 31.0 to 31.9 in adult; Recurrent kidney stones; Mood disorder (CMS/HCC); MDD (major depressive disorder), recurrent severe, without psychosis (CMS/HCC) (HCC); Posttraumatic stress disorder; Tobacco use 07/03/2025 Travel 07/02/[address] [phone] Tyesha Houston MD chart prep 07/02/2025 Orders Only [address] [phone] Tyesha Houston MD Multiple sclerosis (Primary Dx) 06/27/2025 Orders Only [facility] [address] [place] [address] Jhony Berger MD 06/27/2025 Telephone [facility] [address] [place] [address] Tyesha Houston MD glucose monitor 06/26/[address] [address] Tyesha Houston MD Transitin of care 06/24/2025 Telephone [facility] [address] [place] [address] RafKatharine fu, OD 06/23/2025 Patient Outreach [facility] [address] [place] [address] Tyesha Houston MD RN telehealth 06/17/[address] [address] Soumya Bagley RN ER Follow-up 06/16/[address] [address] Tyesha Houston MD PROCESSING LEAD telehealth 06/10/[address] [address] Tyesha Houston MD telephone call 06/06/2025 Patient Outreach [address] [address] Tyesha Huoston MD 06/06/2025 Patient Outreach [address] [address] Tyesha Houston MD 06/03/2025 Patient Outreach [address] [address] Tyesha Houston MD Transition Of Care (Tcm) (HDF- Unscheduled -LVM) 06/02/[address] [address] Tyesha Houston MD No Show 06/02/2025 Patient Outreach [address] [phone] Tyesha Houston MD 06/02/2025 Patient Outreach [address] [address] Tyesha Houston MD 05/30/2025 Telephone [facility] [address] [place] [address] Felicia Cash MA 05/30/2025 Orders Only GENERIC EXTERNAL DATA DEPARTMENT Provider, Generic External Data 05/28/2025 10:00 AM EDT Office Visit [address] [address] Wojciech Hodges MD Substance use disorder (Primary Dx) 05/28/2025 Travel 05/26/2025 Orders Only GENERIC EXTERNAL DATA DEPARTMENT Provider, Generic External Data 05/26/2025 Patient Outreach [address] [address] Esmer Molina RC Recovery Supports 05/26/[address] [address] Chung Gu, RN Nurse Triage 05/23/2025 1:20 PM EDT Office Visit [facility] [address] [address] Marcy Htach FNP Primary hypertension (Primary Dx); Type 2 diabetes mellitus with hyperglycemia, with long-term current use of insulin ([facility]); Soft tissue infection; Recurrent chest pain; Sprain of right ankle, unspecified ligament, initial encounter 05/23/2025 Orders Only [address] [address] Marcy Hatch FNP 05/23/[address] [address] Tyesha Houston MD 05/23/[address] [address] Tyesha Houston MD Telephone Call 05/23/2025 Travel 05/15/[address] [address] Marcy Hatch FNP Moderate persistent asthma without complication 05/14/2025 Patient Outreach [address] [place] [address] Tyesha Houston MD 05/08/2025 Patient Outreach [address] [address] Tyesha Houston MD Care Management (C3- F/U call # 3) 05/07/2025 Patient Outreach [facility] [address] [place] [address] [phone] Tyesha Houston MD Transition Of Care (Tcm) (HDF scheduled. ) 05/07/[address] [address] Tyesha Houston MD Hospital Follow-up 05/01/[address] [address] Tyesha Houston MD Call Back Request 04/29/2025 Patient Outreach [address] [address] Tyesha Houston MD 04/28/2025 Patient Outreach [address] [address] Tyesha Houston MD Care Management (C3CM- F/U call # 2) 04/23/2025 Orders Only [address] [address] Tyesha Houston MD 04/23/2025 Orders Only GENERIC EXTERNAL DATA DEPARTMENT Provider, Generic External Data 04/22/2025 Orders Only GENERIC EXTERNAL DATA DEPARTMENT Provider, Generic External Data 04/21/2025 Orders Only [facility] External Provider, [facility] from Last 3 Months Immunizations Immunization Administration Dates Next Due Hep B, adult 04/24/2019, 9,09/21/2018,02/01 Influenza Whole 06/28/2012,11/08/2011 Influenza injectable quadriv alent preservative free 08/18/2022,07/23/2021,07/10/2020,07/08,06/03/2019,08/29/2018,06/05/2018 ,06/20/2017,06/28/2012,11/08/2011,11/2010 Influenza, IIV3, injectable 07/23/2021,1 ,06/03/2019,08/29,06/05/2018,06/05/2018,06/20/2017 ,06/02/2015,07/02/2014,10/14/2013,06/11,11/08/2011,06/13/2011, 1 Influenza, Unspecified 06/25/2011 Influenza, seasonal, injecta ble, preservative free 07/14/2025,06/02/2015,10/14/2013 Pfizer Covid-19 Vaccine 12+ 03/04/2022,,06/11/2021 Pfizer Covid-19 [...] Orientation Straight 07/14/2025 2: 53 PM EST Last Filed Vital Signs Vital Sign Reading [...] Mass Index 33.03 07/21/2025 12:55 PM EST Plan of Treatment Upcoming Encounters Date Type Department Care Team (Late st Contact Info) Description 08/01/2025 1:30 PM EST Medication Management [facility] [address] [place], [place] [phone] Hi Cortez, PharmD [address] [place], [place] [phone] 08/04/2025 1:30 PM EST Clinical Support [facility] [address] [place], [place] [phone] 10/23/2025 1:00 PM EST Office Visit [facility] [address] [place] [address] Katharine Carbone, OD [address] [place] [address] Health Maintenance Due Date Last Done Comments CT Colonography 1972 Colonoscopy 1972 Colorectal Cancer Screening 1972 FIT DNA/Cologuard 1972 FIT 1972 FOBT 1972 Sigmoidoscopy 1972 Eye Exam 1982 Family Planning (PISQ) 12/22/1987 Pap Smear 1993 Mammogram 07/24/2022 07/24/2020, 07/12, 07/24/2020, Additional history exists Zoster Vaccines (1 of 2) 2022 COVID-19 Vaccine ( season) 2025 10/28/2022, 03/04/2022, 03/04/2022, Additional history exists Depression Monitoring 07/02/2025 12/31/2024, 025 Cervical Cancer Screening 08/25/2025 HPV/Cotest 08/25/2025 08/25/2020, 04/24/2019 Diabetes: Hemoglobin A1C 10/03/2025 025, 01/14/2025, 08/20/2024, Additional history exists Alcohol/Substance Use Screening 01/14/2026 01/14/2025 Diabetes: Foot Exam 01/14/2026 01/14/2025, 01/14/2025, 01/14/2025, Additional history exists Diabetes: Urine Protein Screening 01/14/2026 01/14/2025, 08/08/2023, 04/04/2022, Additional history exists Disability Screening 01/14/2026 01/14/2025 Lipid Panel 01/14/2026 01/14/2025, 07/13, 04/04/2022, Additional history exists SDOH Screening 01/14/2026 01/14/2025 Tobacco Screening 07/21/2026 07/21/2025 DTaP/Tdap/Td Vaccines (4 - Td or Tdap) [...] Completed 01/14/2025, 05/18/2016, 05/18/2016, Additional history exists Influenza Vaccine Completed 07/14/2025, , 07/23/2021, Additional history exists HIB Vaccines Aged Out [...] with long-term current use of insulin (HCC) POCT GLYCOSYLATED HEMOGLOBIN (HGB A1C) Routine 07/03/2025 11:23 AM EDT Type 2 diabetes mellitus with hyperglycemia, with long-term current use of insulin ([facility]) POCT GLUCOSE Routine 07/03/2025 11:22 AM EDT Type 2 diabetes mellitus with hyperglycemia, with long-term current use of insulin ([facility]) CT ABDOMEN PELVIS WO CONTRAST Routine 06/25/2025 12:08 PM EDT XR KNEE 4+ VIEWS LEFT Routine 05/31/2025 2:18 PM EDT NM LUNG PERFUSION Routine 05/30/2025 1:2 9 PM EDT XR CHEST 1 VIEW Routine 05/30/2025 1:13 PM EDT VENOUS BLOOD GAS Routine 05/30/2025 12:1 5 PM EDT BETA-HYDROXYBUTYRATE Routine 05/30/2025 12:00 PM EDT GLUCOSE, WHOLE BLOOD Routine 05/26/2025 5:15 PM [...] long-term current use of insulin ([facility]) GLUCOSE, WHOLE BLOOD Routine 04/23/2025 11:53 AM [...] long-term current use of insulin ([facility]) Dyslipidemia LIPID PANEL WITH REFLEX TO DIRECT LDL Routine 01/14/2025 11:56 AM EDT Type 2 diabetes mellitus with hyperglycemia, with long-term current use of insulin ([facility]) Dyslipidemia ZZZ HISTORICAL HPV E6/E7 RFLX VENU 16 18/45 Routine 08/25/2020 11:45 AM EST MAMMOGRAM GENERIC Routine 07/24/2020 10: 40 AM EST from Last 3 Months or Most Recently Relevant to Health Maintenance Results * POCT Urinalysis (07/21/2025 1:05 PM EST) Color, UA Yellow Clarity, UA Clear Glucose, UA Negative Bilirubin, UA Negative Ketones, UA Negative Spec Grav, UA 1.015 Blood, UA Negative Negative, None Detected pH, UA 5.5 Protein, UA Negative Urobilinogen, UA 0.2 Leukocytes, UA Negative Negative, Rare, Trace Nitrite, UA Negative Negative, None Detected QC Media Lot # [id number] Lot# Expiration Date ,105 Urine (Urine, Random) 07/21/2025 1:05 PM EST Samantha Lima [facility] POINT OF CARE TEST ENTER/EDIT OR DERABLES Final Result * POCT Glucose (07/21/2025 12:56 PM EST) Only the most recent of3 resultswithin the time period is included. Glucose Blood, POC 97 60 - 200 mg/dL QC Media Lot # [id number] Lot# Expiration Date 3, Blood Capillary blood specimen / Unknown 07/21/2025 12:56 PM EST [facility] L[place] ANP POINT OF CARE TEST ENTER/EDIT OR DERABLES Final Result * (ABNORMAL) POCT glycosylated hemoglobin (Hgb A1c) (07/03/2025 11:23 AM EDT) Hemoglobin A1C 10.9(A) 4.0 - 5.7 % QC Media Lot # [id number] Lot# Expiration Date , Blood Capillary blood specimen / Unknown 07/03/2025 11:23 AM EDT Tyesha Houston MD POINT OF CARE TEST ENTER/EDIT OR DERABLES Final Result * CT Abdomen Pelvis w/o Contrast (06/25/2025 12:08 PM EDT) Anatomical Region Laterality Modality Body, Pelvis, Abdomen Computed T omography Historical Provider IMG CT PROCEDURES Final R esult * XR Knee 4+ Views Left (05/31/2025 2:18 PM EDT) Anatomical Region Laterality Modality Lower Extremities, Knee Left Radiogra phic Imaging 05/31/2025 2:18 PM EDT Narrative 05/31/2025 2:19 PM EDT [address] [address] XRay Report Signed Patient: Emily Tucker MR#: [id number] 3606 : 1970 Acct:[id number] Age/Sex: 54 / F ADM Date: 05/30/25 Loc: [facility] 482-[address]: Petra Reza MD Ordering Physician: Petra Reza MD Date of Service: 05/31/25 Procedure(s): XR knee LT 4V Accession Number(s): [id number] cc: Tyesha Houston MD; Petra Reza MD Reason for Exam: knee pain CLINICAL HISTORY: knee pain Radiographs of the left knee, 4 views Comparison: None available Findings: There is no fracture or dislocation. No joint space narrowing or osteophytosis. No knee joint effusion. No soft tissue swelling. Impression: No acute pathology or degenerative change. This document has been electronically signed by: Osiris Angela MD on 05/31/2025 14:18:27 Dictated By: Osiris Hanley MD Signed By: <Electronically signed by Osiris Hanley MD in OV> 05/31/25 1419 DD/ 1418 TD/TT: 05/31/25 1418 Patient Office Rep: Procedure Note Donotuseinterpreter, Image - 05/31/2025 [place] [address] XRay Report Signed Patient: Malcolm Tucker#: [id number] 3606 : 1970Acct:[id number] Age/Sex: 54 / FADM Date: 05/30/25 Loc: [facility] 482-[address]: Petra Reza MD Ordering Physician: Petra Reza MD Date of Service: 05/31/25 Procedure(s): XR knee LT 4V Accession Number(s): [id number] cc: Tyesha Houston MD; Petra Reza MD Reason for Exam: knee pain CLINICAL HISTORY: knee pain Radiographs of the left knee, 4 views Comparison: None available Findings: There is no fracture or dislocation. No joint space narrowing or osteophytosis. No knee joint effusion. No soft tissue swelling. Impression: No acute pathology or degenerative change. This document has been electronically signed by: Osiris Angela MD on 05/31/2025 14:18:27 Dictated By: Osiris Hanley MD Signed By: <Electronically signed by Osiris Hanley MD in OV> 05/31/25 1419 DD/ 141 TD/TT: 05/31/25 141 Patient Office Rep: [facility] External Provider IMG XR PROCEDURES Edited Result - Final * NM Lung Perfusion (05/30/2025 1:29 PM EDT) Anatomical Region Laterality Modality Body Nuclear Medicine 05/30/2025 1:29 PM EDT Narrative 05/30/2025 2:42 PM EDT [facility] [address] [place] [address] Nuclear Medicine Report Signed Patient: Emily Tucker MR#: [id number] 3606 : 1970 Acct:[id number] Age/Sex: 54 / F ADM Date: 05/30/25 Loc: [facility] [place]: Kinjal FARR Ordering Physician: Valencia Lora Date of Service: 05/30/25 Procedure(s): NM pul perfusion Accession Number(s): [id number] cc: Valencia Lora; Tyesha Houston MD Reason for Exam: V/Q scan shortness of breath chest pain hxDVt/PE EXAMINATION: NM LUNG PERFUSION HISTORY: V/Q scan shortness of breath, chest pain hx DVT/PE. TECHNIQUE: A pulmonary perfusion scan was performed following the intravenous administration of 3.8 mCi technetium 99m-MAA. Images were obtained in multiple projections. COMPARISON: Comparison is made with the prior examination dated 07/19/2024. Correlation is also made with an AP portable view of the chest performed earlier in the day. FINDINGS: No segmental or large subsegmental perfusion defects are identified. There has been no significant change from the prior study. NM/NM pul perfusion IMPRESSION: Pulmonary embolism is absent. Electronically signed by: Armand Maldonado MD 05/30/2025 02:39 PM EDT Dictated By: Armand Maldonado MD Signed By: <Electronically signed by Armand Maldonado MD in OV> 05/30/25 1439 DD/ 1329 TD/TT: 05/30/25 1425 Patient Office Rep: Procedure Note Donotuseinterpreter, Image - 05/30/[address] [address] Nuclear Medicine Report Signed Patient: Emily TuckerMR#: [id number] 3606 : 1970Acct:[id number] Age/Sex: 54 / FADM Date: 05/30/25 Loc: [facility]- Attending Dr: Kinjal FARR Ordering Physician: Valencia Lora Date of Service: 05/30/25 Procedure(s): NM pul perfusion Accession Number(s): [id number] cc: Valencia Lora; Tyesha Houston MD Reason for Exam: V/Q scan shortness of breath chest pain hxDVt/PE EXAMINATION: NM LUNG PERFUSION HISTORY: V/Q scan shortness of breath, chest pain hx DVT/PE. TECHNIQUE: A pulmonary perfusion scan was performed following the intravenous administration of 3.8 mCi technetium 99m-MAA. Images were obtained in multiple projections. COMPARISON: Comparison is made with the prior examination dated 07/19/2024. Correlation is also made with an AP portable view of the chest performed earlier in the day. FINDINGS: No segmental or large subsegmental perfusion defects are identified. There has been no significant change from the prior study. NM/NM pul perfusion IMPRESSION: Pulmonary embolism is absent. Electronically signed by: Armand Maldonado MD 05/30/2025 02:39 PM EDT RP Dictated By: Armand Maldonado MD Signed By: <Electronically signed by Armand Maldonado MD in OV> 05/30/25 1439 DD/ 1329 TD/TT: 05/30/25 1425 Patient Office Rep: [facility] External Provider IMG NM PROCEDURES Edited Result - Final * XR Chest 1 View (05/30/2025 1:13 PM EDT) Anatomical Region Laterality Modality Chest Radiographic Stephanie ging 05/30/2025 1:13 PM EDT Narrative 05/30/2025 1:46 PM EDT [address] [address] XRay Report Signed Patient: Emily Tucker MR#: [id number] 3606 : 1970 Acct:[id number] Age/Sex: 54 / F ADM Date: 05/30/25 Loc: HO.ED Attending Dr: Ordering Physician: Valencia Lora Date of Service: 05/30/25 Procedure(s): XR chest 1V Accession Number(s): [id number] cc: Valencia Lora; Tyesha Houston MD Reason for Exam: cp sob EXAMINATION: XR CHEST CLINICAL INFORMATION: cp sob COMPARISON: 07/19/2024. TECHNIQUE: Frontal view of the chest was obtained. FINDINGS: The cardiac, hilar, and mediastinal contours are normal. The lungs are clear bilaterally. No pneumothorax or effusion. No focal osseous or soft tissue abnormality. XR/XR chest 1V IMPRESSION: No active pulmonary disease. Electronically signed by: Dayne Nieves MD 05/30/2025 01:43 PM EDT RP Dictated By: Dayne Nieves MD Signed By: <Electronically signed by Dayne Nieves MD in OV> 05/30/25 1343 DD/ 1313 TD/TT: 05/30/25 1322 Patient Office Rep: Procedure Note Donotuseinterpreter, Image - 05/30/[address] [address] XRay Report Signed Patient: Emily TuckerMR#: [id number] 3606 : 1970Acct:[id number] Age/Sex: 54 / FADM Date: 05/30/25 Loc: HO.ED Attending Dr: Ordering Physician: Valencia Lora Date of Service: 05/30/25 Procedure(s): XR chest 1V Accession Number(s): [id number] cc: Valencia Lora; Tyesha Houston MD Reason for Exam: cp sob EXAMINATION: XR CHEST CLINICAL INFORMATION: cp sob COMPARISON: 07/19/2024. TECHNIQUE: Frontal view of the chest was obtained. FINDINGS: The cardiac, hilar, and mediastinal contours are normal. The lungs are clear bilaterally. No pneumothorax or effusion. No focal osseous or soft tissue abnormality. XR/XR chest 1V IMPRESSION: No active pulmonary disease. Electronically signed by: Dayne Nieves MD 05/30/2025 01:43 PM EDT Dictated By: Dayne Nieves MD Signed By: <Electronically signed by Dayne Nieves MD in OV> 05/30/25 1343 DD/ 1313 TD/TT: 05/30/25 1322 Patient Office Rep: [facility] External Provider IMG XR PROCEDURES Edited Result - Final * (ABNORMAL) VENOUS BLOOD GAS (05/30/2025 12:15 PM EDT) VBG pH 7.39 7.32 - 7.43 [facility] Comment:METER #: [id number] additional_comment: Cb mcmullic VBG PCO2 30 mmHg [facility] Comment:METER #: [id number] additional_comment: Cb mcmullic VBG PO2 101 mmHg [facility] Comment:METER #: [id number] additional_comment: Cb mcmullic VBG Base Excess -4.4 mmol/L [facility] Comment:METER #: [id number] additional_comment: Dayday contreras VBG HCO3 19(L) 22 - 26 mmol/L [facility] Comment:METER #: [id number] additional_comment: Dayday contreras O2 Sat, Reji 99.0 % [facility] Comment:METER #: [id number] additional_comment: Dayday contreras 05/30/2025 12:1 5 PM EDT 05/30/2025 12:18 PM EDT us Generic External Data Provider LAB BLOOD ORDERAB LES Final Result Performing Organization Address [facility]/ZIP Co de Phone Number [facility] [address] [place] [phone] * (ABNORMAL) Beta-Hydroxybutyrate (05/30/2025 12:00 PM EDT) Beta-Hydroxybu tyrate 1.93(H) 0.02 - 0.27 mmol/L [facility] 05/30/2025 12:0 0 PM EDT 05/30/2025 12:10 PM EDT Generic External Data Provider LAB BLOOD ORDERAB LES Final Result Performing Organization Address [facility] Co de Phone Number [facility] [address] [place] [phone] * (ABNORMAL) Glucose, Whole Blood (05/26/2025 5:15 PM EDT) Only the most recent of14 resultswithin the time period is included. Glucose, Whole Blood 356(HH) 60 - 115 mg/dL [facility] Comment:METER #: [id number] 05/26/2025 5:15 PM EDT 05/26/2025 5:17 PM EDT us Generic External Data Provider LAB BLOOD ORDERAB LES Final Result Performing Organization Address City/[facility]/ZIP Co de Phone Number [facility] [address] [place] [phone] * (ABNORMAL) Urinalysis, Complete, with Reflex to Culture (05/26/2025 3:29 PM EDT) Color Urine Yellow [facility] Appearance Urine Clear [facility] PH 5.5 5.0 - 9.0 [facility] Glucose Urine UA >=1000(A) Negative mg/dL [facility] Urine Blood Negative Negative [facility] Specific [place] - Urine >=1.030(H) 1.005 - 1.025 [facility] Urine Protein Negative Neg-Trace mg/dL [facility] Urine Ketones Negative Negative mg/dL [facility] Nitrite Urine Negative Negative [facility] Leukocyte Esterase Urine Negative Negative [facility] RBC Urine 0-2 0 - 2 /HPF [facility] Urine WBC 0-5 0 - 5 /HPF [facility] Urine Squamous Epithelial Cell 3-5 0 - 2 /HPF [facility] Urine Bacteria 1+ None Seen [facility] Hyaline Casts, Urine 3-5 0 - 2 /LPF [facility] Urine Yeast Present [facility] 05/26/2025 3:29 PM EDT 05/26/2025 3:47 PM EDT Narrative [facility] - 05/26/2025 4:15 PM EDT [id number], Clean Catch us Generic External Data Provider LAB URINE ORDERAB LES Final Result [facility] [address] [place] [phone] * XR KUB and Upright 2 Views (05/26/2025 2:37 PM EDT) Anatomical Region Laterality Modality Radiographic Stephanie ging 05/26/2025 2:37 PM EDT Narrative 05/26/2025 2:50 PM EDT [address] [place] [address] XRay Report Signed Patient: Emily Tucker MR#: [id number] 3606 : 1970 Acct:[id number] Age/Sex: 54 / F ADM Date: 05/26/25 Loc: HO.ED Attending Dr: Ordering Physician: Sabi Terrell NP Date of Service: 05/26/25 Procedure(s): XR KUB Accession Number(s): [id number] cc: Tyesha Houston MD; Sabi Terrell NP [...] 05/26/25 1447 DD/ 1437 TD/TT: 05/26/25 1443 Patient Office Rep: Procedure Note Donotuseinterpreter, Image - 05/26/[address] [address] XRay Report Signed Patient: Emily TuckerMR#: [id number] 3606 : 1970Acct:[id number] Age/Sex: 54 / FADM Date: 05/26/25 Loc: HO.ED Attending Dr: Ordering Physician: Sabi Terrell NP Date of Service: 05/26/25 Procedure(s): XR KUB Accession Number(s): [id number] cc: Tyesha Houston MD; Sabi Terrell NP [...] 05/26/25 1447 DD/ 1437 TD/TT: 05/26/25 1443 Patient Office Rep: [facility] External Provider IMG XR PROCEDURES Final Result * Gram Stain Result (05/23/2025 3:44 PM EDT) 05/23/2025 3:44 PM EDT 05/23/2025 6:25 PM EDT Comment:Abdomen Narrative [facility] - 05/26/2025 7:26 AM EDT Gram stain results: No polys 1+ epithelial cells 2+ Gram-positive cocci Staphylococcus aureus Quant Org ID 4+ Staphylococcus aureus: Clindamycin <=0.25(R) Staphylococcus aureus: Erythromycin >=8(R) Staphylococcus aureus: Levofloxacin 0.25(S) Staphylococcus aureus: Oxacillin 0.5(S) Staphylococcus aureus: Penicillin-G >=0.5(R) Staphylococcus aureus: Tetracycline <=1(S) Staphylococcus aureus: Trimethoprim/Sulfamethoxazole <=10(S) Specimen Source: Abdomen [facility] HISTORICAL/NON ORDERABLE LABS Final Result [facility] [address] [place] [phone] * SARS-CoV-2 RNA, Influenza A/B, and RSV RNA, Ql NAAT (04/22/2025 8:43 AM EDT) Influenza A PCR NEGATIVE Negative [facility] Influenza B PCR NEGATIVE Negative [facility] Resp Syncy Virus RNA Qual PCR NEGATIVE Negative [facility] SARS COV2 PCR NEGATIVE Negative [facility] Comment:All test results mus t [...] use by authorized laboratories.Testing performed on the [employer] GeneXpert utilizingreal-time RT-PCR.All SARS CoV2 and positive influenza A/B results arereported to [facility]. 04/22/2025 8:43 AM EDT 04/22/2025 8:45 AM EDT us Generic External Data Provider LAB MICROBIOLOGY - GENERAL ORDERABLES Final Result [facility] [address] [place] [phone] * (ABNORMAL) CBC auto differential (04/21/2025 8:59 PM EDT) [facility] White Blood Count 6.9 4.8 - 10.8 X10*3/uL [facility] Red Blood Count 4.88 4.20 - 5.50 X10*6/uL [facility] Hemoglobin 14.2 12.0 - 16.0 g/dl [facility] Hematocrit 41.7 37.0 - 47.0 % [facility] Mean Corpuscular Volume 85.5 80.0 - 98.0 fL [facility] Mean Corpuscular Hemoglobin 29.1 27.0 - 33.0 pg [facility] Mean Corpuscular HGB Conc 34.1 31.0 - 35.0 g/dl [facility] Red Cell Distribution Width 12.4 11.0 - 16.0 % [facility] Platelet Count 225 160 - 400 X10*3/uL [facility] Mean Platelet Volume 10.0 9.4 - 12.3 fL [facility] Neutrophils Percent Auto 55.9 45 - 73 % [facility] Imm Gran Pct Auto 0.4 0.0 - 0.4 % [facility] Lymphocytes Percent Auto 31.2 20 - 40 % [facility] Monocytes Percent Auto 6.6 2 - 11 % [facility] Eosinophils Percent Auto 4.9(H) 0 - 4 % [facility] Basophils Percent Auto 1.0 0 - 2 % [facility] NRBC Pct Auto 0.0 0.0 - 0.2 /100WBC [facility] Neutrophils Absolute Auto 3.9 2.0 - 8.3 x10*3/uL [facility] Imm Gran Abs Auto 0.03 0.00 - 0.03 X10*3/uL [facility] Lymphocytes Absolute Auto 2.2 1.2 - 4.9 X10*3/uL [facility] Monocytes Absolute Auto 0.5 0.1 - 1.2 X10*3/uL [facility] Eosinophils Absolute Auto 0.3 0.0 - 0.4 X10*3/uL [facility] Basophils Absolute Auto 0.1 0.0 - 0.2 X10*3/uL [facility] NRBC Abs Auto 0.000 0.0 - 0.012 X10*3/uL [facility] 04/21/2025 8:59 PM EDT 04/21/2025 9:09 PM EDT us Generic External Data Provider LAB BLOOD ORDERAB LES Final Result [facility] [address] [place] [phone] * C-reactive Protein (04/21/2025 8:59 PM EDT) C Reactive Protein 0.21 < or = 0.50 mg/dL [facility] 04/21/2025 8:59 PM EDT 04/21/2025 9:09 PM EDT us Generic External Data Provider LAB BLOOD ORDERAB LES Final Result [facility] [address] [place] [phone] * (ABNORMAL) Comprehensive Metabolic Panel (04/21/2025 8:59 PM EDT) Sodium 136 135 - 145 mmol/L [facility] Potassium 3.9 3.3 - 5.1 mmol/L [facility] Chloride 105 96 - 108 mmol/L [facility] Carbon Dioxide 23 22 - 29 mmol/L [facility] Anion Gap 12 12 - 20 [facility] Urea Nitrogen (BUN) 13 9 - 16 mg/dL [facility] Creatinine, Serum 0.71 0.5 - 1.4 mg/dL [facility] Creatinine Clr Calc Pharmacy 86.7 [facility] Comment:Provided height and weight: 157.48 cm,73 kg.eGFR (calculated from the MDRD study equation) and eCrCl(calculated from the Cockcroft-Gault equation) are based ondifferent parameters and may not yield comparable results.If eCrCl result is absurd, please check patient'sheight/weight. Estimated Glomerular Filt Rate >60 [facility] Comment:Chronic Kidney Disea se: Estimated GFR < 60 mL/min/1.82h6Ecreww Kidney Disease: Estimated GFR < 15 mL/min/1.73m2 Glucose 418(HH) 60 - 115 mg/dL [facility] Comment:Critical value for t est(s):GLU Results called to and readback by: LINA Person calling: HOLLIS Date: 04/21/25Time:2135 Calcium 8.8 8.4 - 10.2 mg/dL [facility] Bilirubin, Total 0.1 0.0 - 1.0 mg/dL [facility] Aspartate Amino Transferase 17 5 - 31 U/L [facility] Alanine Aminotransferase 20 0 - 31 U/L [facility] Total Protein 6.7 6.5 - 8.0 g/dL [facility] Albumin Level 3.9 3.5 - 5.0 g/dL [facility] Alkaline Phosphatase 103 39 - 117 U/L [facility] 04/21/2025 8:59 PM EDT 04/21/2025 9:09 PM EDT us Generic External Data Provider LAB BLOOD ORDERAB LES Final Result Performing Organization Address City/State/[facility] Co de Phone Number [facility] [address] [place] [phone] * XR Ribs 3 Views Left w/ Chest (04/21/2025 7:31 PM EDT) Anatomical Region Laterality Modality Radiographic Stephanie ging 04/21/2025 7:31 PM EDT Narrative 04/21/2025 7:32 PM EDT [address] [address] XRay Report Signed Patient: Emily Tucker MR#: [id number] 3606 : 1970 Acct:[id number] Age/Sex: 54 / F ADM Date: 04/21/25 Loc: .ED Attending Dr: Ordering Physician: Carmelo Coronado MD Date of Service: 04/21/25 Procedure(s): XR ribs LT min 3V w CXR1V Accession Number(s): [id number] cc: [facility]; Carmelo Coronado MD CLINICAL HISTORY: [...] in OV> 04/21/251930 DD/ 30 TD/TT: 04/21/251930 Patient Office Rep: Procedure Note Agaimeyonisloboter, Image - 04/21/[address] [address] XRay Report Signed Patient: Emily TuckerMR#: [id number] 3606 : 1970Acct:[id number] Age/Sex: 54 / FADM Date: 04/21/25 Loc: .ED Attending Dr: Ordering Physician: Carmelo Coronado MD Date of Service: 04/21/25 Procedure(s): XR ribs LT min 3V w CXR1V Accession Number(s): [id number] cc: [facility]; Carmelo Coronado MD CLINICAL HISTORY: [...] in OV> 04/21/251930 DD/ 30 TD/TT: 04/21/251930 Patient Office Rep: us [facility] External Provider IMG XR PROCEDURES Final Result * XR Ankle 3+ Views Right (04/21/2025 6:54 PM EDT) Anatomical Region Laterality Modality Lower Extremities, Ankle Right Radiogr aphic Imaging 04/21/2025 6:54 PM EDT Narrative 04/21/2025 6:56 PM EDT [address] [address] XRay Report Signed Patient: Emily Tucker MR#: [id number] 3606 : 1970 Acct:[id number] Age/Sex: 54 / F ADM Date: 04/21/25 Loc: HO.ED Attending Dr: Ordering Physician: Rosina Amin Date of Service: 04/21/25 Procedure(s): XR ankle RT min 3V Accession Number(s): [id number] cc: Rosina Amin; [facility] CLINICAL HISTORY: pain, injury 3 [...] in OV> 04/21/251854 DD/ 53 TD/TT: 04/21/251853 Patient Office Rep: Procedure Note Donotuseinterpreter, Image - 04/21/2025 [place] [address] XRay Report Signed Patient: Emily TuckerMR#: [id number] 3606 : 1970Acct:[id number] Age/Sex: 54 / FADM Date: 04/21/25 Loc: HO.ED Attending Dr: Ordering Physician: Rosina Amin Date of Service: 04/21/25 Procedure(s): XR ankle RT min 3V Accession Number(s): [id number] cc: Rosina Amin; [facility] CLINICAL HISTORY: pain, injury 3 [...] in OV> 04/21/251854 DD/ 53 TD/TT: 04/21/251853 Patient Office Rep: [facility] External Provider IMG XR PROCEDURES Final Result * XR Hip 2 or 3 Views Left (04/21/2025 6:54 PM EDT) Anatomical Region Laterality Modality Lower Extremities, Hip Left Radiograp hic Imaging 04/21/2025 6:54 PM EDT Narrative 04/21/2025 6:56 PM EDT [address] [address] XRay Report Signed Patient: Emily Tucker MR#: [id number] 3606 : 1970 Acct:[id number] Age/Sex: 54 / F ADM Date: 04/21/25 Loc: HO.ED Attending Dr: Ordering Physician: Rosina Amin Date of Service: 04/21/25 Procedure(s): XR hip LT min 2V Accession Number(s): [id number] cc: Rosina Amin; [facility] CLINICAL HISTORY: pain, injury 3 view, pelvis and right hip Comparison: None provided Findings: No acute fracture or dislocation. No significant arthritic change. The soft tissues are unremarkable. IMPRESSION: No acute findings. This document has been electronically signed by: Jalen Mayberry MD on 04/21/2025 18:54:05 Dictated By: Jalen Mayberry MD Signed By: <Electronically signed by aJlen Mayberry MD in OV> 04/21/251854 DD/ 53 TD/TT: 04/21/251853 Patient Office Rep: Procedure Note Donkrister, Image - 04/21/[address] [address] XRay Report Signed Patient: Emily TuckerMR#: [id number] 3606 : 1970Acct:[id number] Age/Sex: 54 / FADM Date: 04/21/25 Loc: HO.ED Attending Dr: Ordering Physician: Rosina Amin Date of Service: 04/21/25 Procedure(s): XR hip LT min 2V Accession Number(s): [id number] cc: Rosina Amin; [facility] CLINICAL HISTORY: pain, injury 3 [...] in OV> 04/21/251854 DD/ 53 TD/TT: 04/21/251853 Patient Office Rep: [facility] External Provider IMG XR PROCEDURES Final Result * CT Cervical Spine w/o Contrast (04/21/2025 6:42 PM EDT) Anatomical Region Laterality Modality Spine, C-spine Computed Tomogra phy 04/21/2025 6:42 PM EDT Narrative 04/21/2025 6:43 PM EDT [place] [address] CT Scan Report Signed Patient: Emily Tucker MR#: [id number] 3606 : 1970 Acct:[id number] Age/Sex: 54 / F ADM Date: 04/21/25 Loc: HO.ED Attending Dr: Ordering Physician: Rosina Amin Date of Service: 04/21/25 Procedure(s): CT cervical spine wo IV con Accession Number(s): [id number] cc: Rosina Amin; [facility] Report Number: [id number]: Total DLP = 529.88 mGy-cm CLINICAL HISTORY: [...] C6-C7. Diffuse spinal canal narrowing, for example lbkf-op-ttcyihir at C4-C5 with severe left and moderate [...] in OV> 04/21/251841 DD/ 41 TD/TT: 04/21/251841 Patient Office Rep: Procedure Note Donotuseinterpreter, Image - 04/21/[address] [place] [address] [address] Scan Report Signed Patient: Emily TuckerMR#: [id number] 3606 : 1970Acct:[id number] Age/Sex: 54 / FADM Date: 04/21/25 Loc: HO.ED Attending Dr: Ordering Physician: Rosina Amin Date of Service: 04/21/25 Procedure(s): CT cervical spine wo IV con Accession Number(s): [id number] cc: Rosina Amin; [facility] Report Number: [id number]: Total DLP = 529.88 mGy-cm CLINICAL HISTORY: [...] C6-C7. Diffuse spinal canal narrowing, for example rhko-rf-ifvtkixx at C4-C5 with severe left and moderate [...] in OV> 04/21/251841 DD/ 41 TD/TT: 04/21/251841 Patient Office Rep: [facility] External Provider IMG CT PROCEDURES Final Result * CT Head w/o Contrast (04/21/2025 6:38 PM EDT) Anatomical Region Laterality Modality Head, Neck Computed Tomogra phy 04/21/2025 6:38 PM EDT Narrative 04/21/2025 6:40 PM EDT [place] [address] CT Scan Report Signed Patient: Emily Tucker MR#: [id number] 3606 : 1970 Acct:[id number] Age/Sex: 54 / F ADM Date: 04/21/25 Loc: HO.ED Attending Dr: Ordering Physician: Rosina Amin Date of Service: 04/21/25 Procedure(s): CT head/brain wo IV con Accession Number(s): [id number] cc: Rosina Amin; [facility] Report Number: [id number]: Total DLP = 676.58 mGy-cm CLINICAL HISTORY: [...] in OV> 04/21/251838 DD/ 37 TD/TT: 04/21/251837 Patient Office Rep: Procedure Note Donkrister, Image - 04/21/[address] [place] [address] [address] Scan Report Signed Patient: Emily TuckerMR#: [id number] : 1970Acct:[id number] Age/Sex: 54 / FADM Date: 04/21/25 Loc: HO.ED Attending Dr: Ordering Physician: Rosina Amin Date of Service: 04/21/25 Procedure(s): CT head/brain wo IV con Accession Number(s): [id number] cc: Rosina Amin; [facility] Report Number: [id number]: Total DLP = 676.58 mGy-cm CLINICAL HISTORY: [...] in OV> 04/21/251838 DD/ 37 TD/TT: 04/21/251837 Patient Office Rep: [facility] External Provider IMG CT PROCEDURES Final Result * (ABNORMAL) Lipid Panel with Reflex to Direct LDL (01/14/2025 11:56 AM EDT) Triglycerides 133 <150 mg/dL [facility] Comment:Desirable Triglyceri de: less than 150 mg/dLBorderline High Triglyceride 150-199 mg/dLHigh Triglyceride: 200-499 mg/dLVery High Triglyceride: greater than or equal to 5OO mg/dL Cholesterol 226(H) <200 mg/dL [facility] Comment:Desirable Cholestero l: less than 200 mg/dLBorderline High Cholesterol: 200-239 mg/dLHigh Cholesterol: greater than 239 mg/dL LDL Cholesterol Calculated 116(H) <100 mg/dL [facility] Comment:Desirable LDL: less than 100 mg/dLNear Optimal/Above Optimal LDL: 110- 129 mg/dLBorderline High LDL: 130-159 mg/dLHigh LDL: 160-189 mg/dLVery High LDL: greater than or equal to 190 mg/dL HDL Cholesterol 84 >40 mg/dL [facility] Comment:Desirable HDL: great er than 40 mg/dL Note: This HDL assay may give artificially low results in patients with liver disease. Blood 01/14/2025 11:5 6 AM EDT 01/14/2025 1:25 PM EDT us Tyesha Houston MD LAB BLOOD ORDERABLES Final Resul t Performing Organization Address City/[facility] Co de Phone Number [facility] [address] [place] [phone] * (ABNORMAL) Albumin, Random Urine W/Creatinine (01/14/2025 11:56 AM EDT) Creatinine, Urine 158.99 mg/dL [facility] Microalbumin Urine 66.0 mg/L [facility] Microalbum Creatinine Ratio Ur 41.5(H) <30 ug/mg cr [facility] Comment:Albumin/Creatinine R atio Reference Ranges: Normal: < 30 ug/mg creatinine Microalbuminuria: 30 - 300 ug/mg creatinineClinical Albuminuria: > 300 ug/mg creatinine Urine 01/14/2025 11:5 6 AM EDT 01/14/2025 1:07 PM EDT us Tyesha Houston MD LAB URINE ORDERABLES Final Resul t Performing Organization Address City/[facility] Co de Phone Number [facility] [address] [place] [phone] * Hepatitis C Antibody with Reflex to HCV, RNA, Quantitative, Real-Time PCR (01/14/2025 11:56 AM EDT) Pathologist [facility] Hepatitis C Antibody Nonreactive Nonreactive [facility] Comment:Antibodies to HCV no t detected; does not exclude early acuteHCV infection. Blood Venous blood specimen / Unknown 01/14/2025 11:56 AM EDT 01/14/2025 1:25 PM EDT us Tyesha Houston MD LAB BLOOD ORDERABLES Final Resul t Performing Organization Address City/[facility]/ZIP Co de Phone Number [facility] [address] [place] [phone] * HIV-1/2 Antigen and Antibodies, Fourth Generation, with Reflexes (01/14/2025 11:56 AM EDT) Pathologist [facility] HIV AB/AG Nonreactive Nonreactive [facility] Comment:HIV-1 p24 Ag and/or HIV-1/HIV-2 Ab not detected.A test result that is nonreactive does not exclude thepossibility of exposure to or infection with HIV-1 and/orHIV-2. Nonreactive results in this assay for individualswith prior exposure to HIV-1 and/or HIV-2 may be due toantigen and antibody levels that are below the limit ofdetection of this assay.The [employer] HIV Ag/Ab Combo assay result andsupplemental assay [...] Performing Organization Address City/[facility]/ZIP Co de Phone Number [facility] [address] [place] [address] [place] [phone] * HPV E6/E7 RFLX VENU 16 18/45 (08/25/2020 11:45 AM EST) HPV mRNA E6/E7 rflx Not Detected Not Detected [facility] Comment: This test was performed using the APTIMA HPV Assay ([employer] This assay detects E6/E7 viral messenger RNA (mRNA) from 14 high-risk HPV types (16,18,31,33,35,39,45,51,52,56,58,59,66,68). The analytical performance characteristics of this assay have been determined by [employer]. The modifications have not been cleared or approved by the FDA. This assay has been validated pursuant to the CLIA regulations and is used for clinical purposes. 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
--- OUTSIDE RECORDS SUMMARY | 2025-07-21 18:13 | XMS_ITS | Encounter Summary ---
Author Organization [employer] Address [address] [facility] [address] [place] [address] Care Team Providers Care Fine Artist Name Role Phone Tyesha Rogers MD Primary Care Provider [phone] Reason for Referral * Consultation (Urgent) - Closed Specialty Diagnoses / Procedures Referred By Contac t Referred To Contact Neurology Diagnoses Multiple sclerosis Tyesha Rogers MD [address] [place] [address] Phone: tel: fax: [facility] Neurology [address] [place], [place] Phone: tel: fax: Referral ID Status Reason Start Date Expiration Date V isits Requested Visits Authorized [id number] Closed Specialty Services Required 07/02/2025 07/02/2026 6 6 Encounter Details Date Type Department Care Team (Late st Contact Info) Description 07/02/2025 Orders Only [facility] [address] [place], [place] [phone] Tyesha Rogers MD [address], [place] [phone] Multiple sclerosis (Primary Dx) Social History Tobacco Use Types [...] Description 08/01/2025 1:30 PM EST Medication Management [facility] [address] [place] [phone] Hi Cortez, PharmD [address] [place] [address] 08/04/2025 1:30 PM EST Clinical Support [facility] [address] [place] [address] 10/23/2025 1:00 PM EST Office Visit [facility] [address] [place] [address] Katharine Carbone, OD [address] [place] [address] Scheduled Referrals Name Type Priority Associated Diagnoses Orde r Schedule Referral to Neurology Outpatient Referral Urgent Multiple sclerosis Expected: 07/02/2025 (Approximate), Expires: 07/02/2026 documented as of this encounter Visit Diagnoses Diagnosis Multiple sclerosis- Primary documented in this encounter Additional Health Concerns Assessment Noted Time PHQ-9 Depression Total Score: 14 025 1:25 PM EDT documented as of this encounter Care Teams Fine Artist Relationship Specialty Start Date End Date Tyesha Rogers MD [address] [place] [address] PCP - General Family Medicine 04/25/19 documented as of this encounter
--- OUTSIDE RECORDS SUMMARY | 2025-07-21 18:13 | XMS_ITS | Encounter Summary ---
Author Organization [employer] Address [address] [place] [address] [address] [place] [address] Care Team Providers Care Fresh Foods Technician Name Role Phone Tyesha Rogers MD Primary Care Provider [phone] Encounter Details Date Type Department Care Team ([facility] st Contact Info) Description 10/10/2022 Orders Only [facility] [address] [place], [place] [phone] Tyesha Rogers MD [address] [place], [place] [phone] Hypothyroidism, unspecified type (Primary Dx); Elevated TSH; [...] Description 08/01/2025 1:30 PM EST Medication Management [facility] [address] [place] [address] Hi Cortez, PharmD [address] [place] [address] 08/04/2025 1:30 PM EST Clinical Support [facility] [address] [place] [address] 10/23/2025 1:00 PM EST Office Visit [facility] [address] [place], [place] [phone] Katharine Carbone, OD [address] [place] [address] Scheduled Orders Name Type Priority Associated Diagnoses [...] documented as of this encounter Care Teams Fresh Foods Technician Relationship Specialty Start Date End Date Tyesha Rogers MD [address] [place] [address] [phone] PCP - General Family Medicine 04/25/19 documented as of this encounter
--- OUTSIDE RECORDS SUMMARY | 2025-07-21 18:13 | XMS_ITS | Encounter Summary ---
Author Organization [employer] Address [address] [place] [address] 7[address] [place] [address] Care Team Providers Care Restaurant Operations Manager Name Role Phone Tyesha Rogers MD Primary Care Provider [phone] Encounter Details Date Type Department Care Team ([facility] st Contact Info) Description 06/27/2025 Orders Only [facility] [address] [place] [address] ProviderJhony MD Social History Tobacco Use Types [...] Description 08/01/2025 1:30 PM EST Medication Management [facility] [address] [place] [address] Hi Cortez, PharmD [address] [place] [address] 08/04/2025 1:30 PM EST Clinical Support [facility] [address] [place] [address] 10/23/2025 1:00 PM EST Office Visit [facility] [address] [place] [address] Raf, Katharine, OD [address] [place] [address] documented as of this encounter Procedures Procedure Name Priority Date/Time Associated Diagnosis Comments CT ABDOMEN PELVIS WO CONTRAST Routine 06/25/2025 12:08 PM EDT documented in this encounter Results * CT Abdomen Pelvis w/o Contrast (06/25/2025 [...] documented as of this encounter Care Teams Restaurant Operations Manager Relationship Specialty Start Date End Date Tyesha Rogers MD [address] [place] [address] PCP - General Family Medicine 04/25/19 documented as of this encounter
== END 2025-07-21 18:10 | disposition home or self-care (01) ==
LOC: HO.HHCLNP 18:09
PROVIDERS: Visit Provider Nurse Practitioner Primary Care
DX: R82.90 Unspecified abnormal findings in urine (principal)
CPT/HCPCS: 87086

== ENCOUNTER 2025-08-01 14:49 | Emergency (ER) | payer MEDICAID, SELFPAY ==
--- NOTE | ~2025-08-01 | CT_ITS ---
EXAMINATION: CT ABDOMEN AND PELVIS WITHOUT CONTRAST CLINICAL INFORMATION: Constipation 2 weeks. SBO? COMPARISON: 06/19/2024 TECHNIQUE: Multidetector volumetric imaging was performed from the superior aspect of the liver through the pubic symphysis. Sagittal and coronal reformatted images were obtained on the technologist's workstation. This CT examination was performed using dose optimization techniques as appropriate, variously including the following: *Automated exposure control *Adjustment of mA and/or kV according to patient size (this includes techniques or standardized protocols for targeted exams where dose is matched to indication/reason for exam; i.e. extremities or head) *Use of iterative reconstruction technique FINDINGS: LUNG BASES: The visualized lung bases are unremarkable. LIVER, GALLBLADDER, AND BILIARY TREE: The liver is normal in size, shape, and attenuation. No focal hepatic lesion or biliary ductal dilatation is present. The gallbladder is surgically absent. There are clips in the gallbladder fossa. PANCREAS: Unremarkable. SPLEEN: There is a single punctate calcification. ADRENAL GLANDS: Unremarkable. KIDNEYS AND URETERS: The kidneys are normal in size, shape, and attenuation. No hydronephrosis, hydroureter, or calculi seen. No perinephric stranding. BLADDER: Unremarkable. GASTROINTESTINAL TRACT: The small and large bowel are unremarkable. The appendix is not clearly seen.. ABDOMINAL WALL: Again seen is a midline surgical scar extending above and below the umbilicus. LYMPH NODES: There are shotty periaortic lymph nodes in the abdomen. VASCULAR: Mild vascular calcifications are present. PELVIC VISCERA: Uterus and ovaries are unremarkable. There are follicles visible, left greater than right. OSSEOUS STRUCTURES: There is mild convex left curvature. L4-5 demonstrates mild disc space narrowing and vacuum phenomena. There is also moderate facet arthropathy. L5-S1 demonstrates grade 1 anterolisthesis and moderate disc space narrowing. There is sacralization of the right facet joint and severe degenerative change of the left facet. CT/CT abdomen pelvis wo IV con IMPRESSION: No acute abnormality. No evidence of small bowel obstruction. The stool burden is medium. Cholecystectomy. Degenerative changes are most advanced at L5-S1. Fleischner guidelines were followed. Electronically signed by: Jasper Macias MD 08/01/2025 03:50 PM EST
[2025-08-01 15:01] VITALS: BP 143/91; PULSE 75; RESP 18; TEMP 36.1; BMI 32.6
--- NOTE | 2025-08-01 15:11 | ED_ITS ---
HPI - General Adult General Chief complaint: Abdominal Pain Stated complaint: no bowel movement, multiple complaints Time Seen by Provider: 08/01/25 17:46 History of Present Illness ED Provider: Geneva Garrido HPI narrative: 54-year-old female with a medical history significant for diabetes causing frequent UTIs, hypertension, IBS, obesity, endometriosis, kidney stones, abnormal uterine bleeding, polysubstance use, depression, PTSD, history of [place] presents to the ED for evaluation reporting difficulty with bowel movements ongoing for several weeks. She reports history of bowel obstructions, and is concerned because she has had a very limited stools over the past 2 weeks. She was seen by a provider who provided her a prescription for fiber, which has not been helping. She endorses some generalized abdominal cramping, as well as intermittent nausea and vomiting. No diarrhea. Denies chest pain or pressure, palpitations, shortness of breath. No fever, chills. Also expressing concern for UTI given the frequency of when she gets them. Related Data Previous Rx's ?Medication ?Instructions ?Recorded epinephrine 0.3 mg/0.3 mL 0.3 mg (0.3 mL) IM Q10M PRN 12/10/24 injection, auto-injector anaphylaxis #2 ea acetaminophen 325 mg tablet 975 mg (3 x 325 mg) PO Q8H PRN 06/11/25 moderate pain #90 tabs albuterol sulfate 90 mcg/actuation 2 puff inhalation R Q4H PRN 06/11/25 aerosol inhaler (Ventolin HFA) Wheezing #1 g amlodipine 10 mg tablet 10 mg PO DAILY #30 tabs 10/05 apixaban 5 mg tablet (Eliquis) 5 mg PO BID #60 tabs atorvastatin 40 mg tablet 1 tab PO DAILY #30 tabs 1010/05 bisacodyl 5 mg tablet,delayed 10 mg (2 x 5 mg) PO ABDELRAHMAN Y PRN 06/11/25 release Constipation #30 tabs bisacodyl 5 mg tablet,delayed 10 mg (2 x 5 mg) PO ABDELRAHMAN Y PRN 06/11/25 release constipation #60 tabs clonidine HCl 0.1 mg tablet 0.1 mg PO TID PRN Anxiety #90 tabs 06/11/25 cyclobenzaprine 10 mg tablet 10 mg PO TID PRN Muscle S pasm #90 06/11/25 tabs diphenhydramine HCl 25 mg capsule 25 mg PO Q6H PRN itc asher #90 caps 06/11/25 (Banophen) famotidine 20 mg tablet 20 mg PO BID #60 tabs guanfacine 2 mg tablet,extended 2 mg PO DAILY #30 tabs 06/11/25 release 24 hr hydrocortisone 1 % topical cream 1 appl topical BID #1 g 06/11/25 insulin glargine 100 unit/mL 25 unit (0.25 mL) subcut DAILY #1 06/11/25 subcutaneous solution (Lantus mL U-100 Insulin) insulin lispro 100 unit/mL 8 - 16 sliding scale dose s ubcut 06/11/25 subcutaneous pen TIDAC #1 mL levothyroxine 25 mcg tablet 25 mcg PO DAILY@0600 #30 t abs 06/11/25 losartan 100 mg tablet 100 mg PO DAILY #30 tabs 10/05 metformin 500 mg tablet,extended 1,000 mg (2 x 500 mg) PO BID #120 06/11/25 release 24 hr tabs methocarbamol 750 mg tablet 750 mg PO TID PRN Muscle S pasm #90 06/11/25 tabs prazosin 1 mg capsule 1 mg PO BEDTIME #30 caps 10/05 pregabalin 25 mg capsule 25 mg PO TID #90 caps topiramate 100 mg tablet 100 mg PO BEDTIME 30 days #3 0 tabs 06/11/25 topiramate 25 mg tablet 100 mg (4 x 25 mg) PO BEDTIM E #30 06/11/25 tabs blood sugar diagnostic (Freestyle #50 ea 06/12/25 InsuLinx strips) lancets 28 gauge (FreeStyle #100 ea 06/12/25 Lancets) pen needle, diabetic 29 gauge #100 ea 06/12/25 trazodone 50 mg tablet 50 mg PO BEDTIME MRX1 PRN In somnia 06/12/25 30 days #30 tabs polyethylene glycol 3350 17 17 g PO BID 7 days #238 gr ams 08/01/25 gram/dose oral powder (Miralax) sennosides 8.6 mg tablet (senna) 8.6 mg PO BID 14 days #28 tabs 08/01/25 Allergies Allergy/AdvReac Type Severity Reaction Status Date / Time Iodinated Contrast Media (IV Allergy Severe THROAT Verified 08/01/25 15:05 CONTRAST) CLOSING tomato (TOMATO) Allergy Severe Anaphylaxis Verified 08/01/25 15:05 lithium (LITHIUM) Allergy Intermediate AGGRESSION, Verified 08/01/25 15:05 stiffened up & throat closing (moderate to severe) asparagus (ASPARAGUS) Allergy Mild Rash Verified 08/01/25 15:05 fluoxetine (FLUOXETINE) Allergy Mild ITCHING, Verified 08/01/25 15:05 Suicidal risperidone (From RISPERDAL) Allergy Mild ITCHING Verified 08/01/25 15:05 divalproex sodium (From Allergy Unknown UNKNOWN, Verified 08/01/25 15:05 DEPAKOTE) stiffened up, locked jaw lisinopril (LISINOPRIL) Allergy Unknown COUGH Verified 08/01/25 15:05 olanzapine Allergy Unknown can't Verified 08/01/25 15:05 recall if hives or increased pollen extracts (POLLEN) Allergy Unknown unknown Verified 08/01/25 15:05 quetiapine (From SEROQUEL) AdvReac Intermediate OVERSEDATIO Verified 08/01/25 15:05 N TOMATO Allergy Severe Anaphylaxis Uncoded 05/30/25 11:22 BROCCOLI Allergy Mild Rash Uncoded 05/30/25 11:22 GREEN CHEUNG Allergy Mild Rash Uncoded 05/30/25 11:22 FUMARATE Allergy Unknown Unknown Uncoded 05/26/25 12:03 Review of Systems 2 Review of Systems: ROS is otherwise negative unless mentioned in HPI. [facility] Past Medical History Medical History (Updated 08/02/25 @ 00:02 by Lizbeth Arboleda) Relapsing remitting multiple sclerosis Homeless Bipolar II disorder AYNY (acute kidney injury) Multiple sclerosis exacerbation Excoriation (skin-picking) disorder Back pain GERD (gastroesophageal reflux disease) Peripheral neuropathy PTSD (post-traumatic stress disorder) Mood disorder Elevated cholesterol Fibromyalgia Chronic back pain DDD (degenerative disc disease) Ovarian cyst Kidney stone Normal colonoscopy Lesion of bladder Suicide attempt Depression IBS (irritable bowel syndrome) Obesity (BMI 30-39.9) Endometriosis History of pulmonary embolus (PE) History of DVT (deep vein thrombosis) Diabetes mellitus Asthma HTN (hypertension) Anxiety Multiple sclerosis Surgical History (Updated 06/05/25 @ 07:26 by Kati Meng MD) History of lithotripsy History of cystoscopy S/P endometrial ablation H/O neck surgery Hx of dilation and curettage Hx of tubal ligation Hx of appendectomy Hx of cholecystectomy Family History Family History Mother Rheumatoid arteritis COPD (chronic obstructive pulmonary disease) Father HTN (hypertension) Diabetes mellitus Social History Social History Household Members: None Housing: Homeless Do you presently have visiting nurse or other home services: No Alcohol intake: current Alcohol intake frequency: holidays/special occasions only Comment: 1:1 sitter Patient Tobacco Use Status: Current everyday Tobacco user Tobacco use type: Cigarette Cigarette Packs Per Day: 1 Years Smoked: 39 e-Cigarette/Vaping Use: Currently Using Second Hand Smoke Exposure: Yes Substance Use Type: Crack/Cocaine Advance Directives: Yes Advance Directives on File: Yes Advance Directives Date on File: 05/18/23 Patient : No service: No Sexual orientation: Straight/Heterosexual Gender identity: Female Physical Exam ED Exam Exam: Nursing notes and vital signs reviewed. Constitutional: Well-appearing, NAD. Alert. Oriented X3. Eyes: EOMI. ENT: Pharynx normal. Neck: Normal inspection. Neck supple. Respiratory: No respiratory distress. Abdomen: Soft and nontender. +BSx4. Nondistended. No CVA tenderness bilaterally. Skin: Skin warm and dry. Normal skin color. Extremities: No lower extremity edema. Neuro: Oriented X 3. No motor deficit. Vital Signs: Vital Signs - 24 hr 08/01/25 15:01 Temperature 97.0 F Pulse Rate 75 Respiratory Rate 18 Blood Pressure 143/91 H Oxygen Delivery Method Room Air BMI result Body Mass Index 32.6 Course Course Course Narrative: RME: 54 year female history small bowel obstruction presents to ED for constipation for 2 weeks with nausea, vomiting, and no passing gas. Patient is unable to have IV contrast due to anaphylaxis, labs dry CT scan ordered Medications Administered Discontinued Medications Generic Name Dose Route Start Last Admin Trade Name Freq PRN Reason Stop Dose Admin Ondansetron HCl 4 mg 08/01/25 17:52 08/01/25 18:01 Ondansetron Odt 4 Mg Tab.Rapdis TRANSLINGU 08/01/25 17:53 4 mg ONCE ONE Administration Medical Decision Making Medical Decision Making MDM Narrative: On my exam she appears well. Endorsing some active nausea, she was ambulatory in the ED without any reported dizziness to the bathroom. She was able to provide me a urine sample, which is currently pending. Reports some generalized abdominal cramping, believes she is constipated. I was able to review the patient's CT scan, that was ordered by the triage provider. This does show a moderate stool burden but no acute findings. Lab work was overall reassuring as well. Plan to p.o. trial the patient after dose of ODT Zofran, pending urinalysis. 1824-- urinalysis shows no signs of infection at this time. Tolerating p.o. after Zofran dose. Agreeable to discharge plan, f/u with primary care provider outpatient. Provided return precautions to the ED. Differential Diagnosis Differential Diagnoses: The differential diagnosis associated with the presentation includes Gastritis, constipation, bowel obstruction, cystitis Admission/Observation Consideration of admission/observation: Escalation of care including admission/observation considered (Not indicated) Lab Data [facility] Lab Attestation statement: I reviewed the patient's lab results. (Overall reassuring) 08/01/25 16:06 08/01/25 16:06 Labs: Lab Results 08/01/25 08/01/25 Range/Units 16:06 18:03 WBC 6.5 (4.8-10.8) X10*3/uL RBC 4.61 (4.20-5.50) X10*6/uL Hgb 13.2 (12.0-16.0) g/dl Hct 39.5 (37.0-47.0) % MCV 85.7 (80.0-98.0) fL MCH 28.6 (27.0-33.0) pg MCHC 33.4 (31.0-35.0) g/dl RDW 12.1 (11.0-16.0) % Plt Count 231 (160-400) X10*3/uL MPV 9.4 (9.4-12.3) fL Immature Gran % (Auto) 0.2 (0.0-0.4) % Neut % (Auto) 48.7 (45-73) % Lymph % (Auto) 38.3 (20-40) % [place] % (Auto) 6.3 (2-11) % Eos % (Auto) 5.4 H (0-4) % Baso % (Auto) 1.1 (0-2) % Lymph # (Auto) 2.5 (1.2-4.9) X10*3/uL [place] # (Auto) 0.4 (0.1-1.2) X10*3/uL Eos # (Auto) 0.4 (0.0-0.4) X10*3/uL Baso # (Auto) 0.1 (0.0-0.2) X10*3/uL Abs Immat Gran (auto) 0.01 (0.00-0.03) X10*3/uL Absolute Neuts (auto) 3.2 (2.0-8.3) x10*3/uL Absolute Nucleated RBC 0.000 (0.0-0.012) X10*3/uL Nucleated RBC % (auto) 0.0 (0.0-0.2) /100WBC Sodium 142 (135-145) mmol/L Potassium 3.5 (3.3-5.1) mmol/L Chloride 109 H (96-108) mmol/L Carbon Dioxide 26 (22-29) mmol/L Anion Gap 11 L (12-20) BUN 18 H (9-16) mg/dL Creatinine 0.75 (0.5-1.4) mg/dL Estim Creat Clear Calc 86.4 Estimated GFR > 60 Random Glucose 89 (60-115) mg/dL Calcium 9.3 (8.4-10.2) mg/dL Total Bilirubin 0.4 (0.0-1.0) mg/dL AST 24 (5-31) U/L ALT 22 (0-31) U/L Alkaline Phosphatase 72 (39-117) U/L Total Protein 7.1 (6.5-8.0) g/dL Albumin 4.4 (3.5-5.0) g/dL Urine Color Yellow Urine Appearance Clear Urine pH 6.5 (5.0-9.0) Ur Specific [place] 1.010 (1.005-1.025) Urine Protein Negative (Neg-Trace) mg/dL Urine Glucose (UA) Negative (Negative) mg/dL Urine Ketones Negative (Negative) mg/dL Urine Blood Negative (Negative) Urine Nitrite Negative (Negative) Ur Leukocyte Esterase Negative (Negative) Independent Interpretation I performed an independent interpretation of an: CT Scan Interpretation: I have reviewed the patient's imaging and agree with the radiologist's findings. Radiology Impression Discussion of test interpretation with radiology: I have reviewed the radiologist's reading. Radiologist Impression: CT/CT abdomen pelvis wo IV con IMPRESSION: No acute abnormality. No evidence of small bowel obstruction. The stool burden is medium. Cholecystectomy. Degenerative changes are most advanced at L5-S1. External Record Review External record reviewed: Outpatient record, Prior outpatient labs and Prior outpatient radiology Chronic Conditions Patient?s care impacted by: Diabetes, Hypertension and Cancer Social Determinants Patient?s care significantly limited by Social Determinants of Health including: Alcoholism and drug addiction in family Discharge Plan Discharge Clinical Impression: Abdominal pain, Constipation Patient Disposition: Home, Self-Care Instructions: Constipation (DC) Additional Instructions: As we discussed, your workup today was overall reassuring including your lab work, CT scan, and urinalysis. Your CAT scan does show some evidence of constipation. Therefore, we recommend that you use the prescribed MiraLax once in the morning once in the evening, as well as the Senokot tablet. Please use these medications in conjunction with the fiber supplementation you have been taking in, and increase your fiber and water intake. Please follow up with your primary care provider within 1 week. With any worsening complaints at any time, please seek evaluation in the ED. Prescriptions: New polyethylene glycol 3350 [Miralax] 17 gram/dose powder 17 g PO BID 7 Days Qty: 238 0RF sennosides [senna] 8.6 mg tablet 8.6 mg PO BID 14 Days Qty: 28 0RF No Action epinephrine 0.3 mg/0.3 mL auto-injector 0.3 mg IM Q10M PRN (Reason: anaphylaxis) Qty: 2 0RF Rx Instructions: for 2 doses albuterol sulfate [Ventolin HFA] 90 mcg/actuation Hfa Aerosol Inhaler 2 puff inhalation RQ4H PRN (Reason: Wheezing) Qty: 1 0RF cyclobenzaprine 10 mg Tablet 10 mg PO TID PRN (Reason: Muscle Spasm) Qty: 90 0RF methocarbamol 750 mg Tablet 750 mg PO TID PRN (Reason: Muscle Spasm) Qty: 90 0RF guanfacine 2 mg Tablet Extended Release 24 Hr 2 mg PO DAILY Qty: 30 0RF acetaminophen 325 mg Tablet 975 mg PO Q8H PRN (Reason: moderate pain) Qty: 90 0RF insulin glargine [Lantus U-100 Insulin] 100 unit/mL Solution 25 unit subcut DAILY Qty: 1 0RF topiramate 25 mg Tablet 100 mg PO BEDTIME Qty: 30 0RF famotidine 20 mg Tablet 20 mg PO BID Qty: 60 0RF bisacodyl 5 mg Tablet,Delayed Release (Dr/Ec) 10 mg PO DAILY PRN (Reason: Constipation) Qty: 30 0RF pregabalin 25 mg Capsule 25 mg PO TID Qty: 90 0RF levothyroxine 25 mcg Tablet 25 mcg PO DAILY@0600 Qty: 30 0RF hydrocortisone 1 % Cream 1 appl topical BID Qty: 1 0RF Protocol: Apply to: Apply to: affected areas -arms diphenhydramine HCl [Banophen] 25 mg Capsule 25 mg PO Q6H PRN (Reason: itching) Qty: 90 0RF atorvastatin 40 mg tablet 1 tab PO DAILY Qty: 30 0RF clonidine HCl 0.1 mg tablet 0.1 mg PO TID PRN (Reason: Anxiety) Qty: 90 0RF prazosin 1 mg capsule 1 mg PO BEDTIME Qty: 30 0RF amlodipine 10 mg Tablet 10 mg PO DAILY Qty: 30 0RF losartan 100 mg tablet 100 mg PO DAILY Qty: 30 0RF metformin 500 mg tablet extended release 24 hr 1,000 mg PO BID Qty: 120 0RF insulin lispro 100 unit/mL insulin pen 8 - 16 sliding scale dose subcut TIDAC Qty: 1 0RF Protocol: Insulin Correction Scale Less than or equal to 110 ---- Give (units): 0 111 to 150 Give (units): 8 151 to 200 Give (units): 10 201 to 250 Give (units): 12 251 to 300 Give (units): 14 301 to 350 Give (units): 16 Greater than 350 Give (units): 0 Call MD if Blood Glucose > : 350 Eliquis 5 mg tablet 5 mg PO BID Qty: 60 0RF topiramate 100 mg tablet 100 mg PO BEDTIME 30 Days Qty: 30 0RF bisacodyl 5 mg tablet,delayed release (DR/EC) 10 mg PO DAILY PRN (Reason: constipation) Qty: 60 0RF trazodone 50 mg Tablet 50 mg PO BEDTIME MRX1 PRN (Reason: Insomnia) 30 Days Qty: 30 0RF (DME) lancets [FreeStyle Lancets] 28 gauge misc See Rx Instructions .Route Qty: 100 0RF Rx Instructions: As directed (DME) Freestyle InsuLinx Strip See Rx Instructions .Route Qty: 50 0RF Rx Instructions: As directed (DME) pen needle, diabetic 29 gauge needle See Rx Instructions .Route Qty: 100 0RF Rx Instructions: As directed Referrals: Tyesha Rogers MD [Primary Care Provider, Internal Medicine] Interventions: ED Discharge Assessment Last Done: 08/01/25 18:38 Discharge Date/Time: 08/01/25 18:39 Print Language: Gambian
--- NOTE | 2025-08-01 15:40 | MHC.EDTECH ---
Carlos yadav d/c- [phone] press#4
[2025-08-01 16:15] LABS: MANUAL DIFF FLAG NO
[2025-08-01 16:17] LABS: Hematocrit 39.5 % (37.0-47.0); Hemoglobin 13.2 g/dl (12.0-16.0); Imm Gran Abs Auto 0.01 X10*3/uL (0.00-0.03); Imm Gran Pct Auto 0.2 % (0.0-0.4); Lymphocytes Absolute Auto 2.5 X10*3/uL (1.2-4.9); Mean Corpuscular HGB Conc 33.4 g/dl (31.0-35.0); Mean Corpuscular Hemoglobin 28.6 pg (27.0-33.0); Mean Corpuscular Volume 85.7 fL (80.0-98.0); NRBC Abs Auto 0.000 X10*3/uL (0.0-0.012); NRBC Pct Auto 0.0 /100WBC (0.0-0.2); Platelet Count 231 X10*3/uL (160-400); Red Blood Count 4.61 X10*6/uL (4.20-5.50); White Blood Count 6.5 X10*3/uL (4.8-10.8)
[2025-08-01 16:33] LABS: Alanine Aminotransferase 22 U/L (0-31); Albumin Level 4.4 g/dL (3.5-5.0); Alkaline Phosphatase 72 U/L (39-117); Anion Gap 11 (12-20); Aspartate Amino Transferase 24 U/L (5-31); Blood Urea Nitrogen 18 mg/dL (9-16); Calcium 9.3 mg/dL (8.4-10.2); Carbon Dioxide 26 mmol/L (22-29); Chloride 109 mmol/L (96-108); Creatinine Clr Calc Pharmacy 86.4; Estimated Glomerular Filt Rate > 60; Potassium 3.5 mmol/L (3.3-5.1); Sodium 142 mmol/L (135-145); Total Protein 7.1 g/dL (6.5-8.0)
[2025-08-01 18:10] LABS: Appearance Urine Clear; Glucose Urine UA Negative (Negative); PH 6.5 (5.0-9.0); Specific Gravity - Urine 1.010 (1.005-1.025)
[2025-08-01 18:38] VITALS: BP 143/91; PULSE 75; RESP 18; TEMP 36.1
== END 2025-08-01 18:39 | disposition home or self-care (01) ==
PROVIDERS: Physician Assistant; Emergency Provider Emergency Medicine; PCP Family Medicine
DX: K59.00 Constipation, unspecified (principal); R10.9 Unspecified abdominal pain; R11.2 Nausea with vomiting, unspecified
CPT/HCPCS: 36415; 74176; 80053; 81003; 85025; 99284

== ENCOUNTER → 2025-08-01 15:11 | Outpatient (BNV) | payer MEDICAID, SELFPAY | PROVIDERS: PCP Family Medicine; Visit Provider Radiology Diagnostic Radiology | DX: K59.00 Constipation, unspecified (principal); M47.817 Spondylosis without myelopathy or radiculopathy, lumbosacral region; Z90.49 Acquired absence of other specified parts of digestive tract | CPT/HCPCS: 74176 ==

== ENCOUNTER 2025-08-27 10:39 | Outpatient (REF) | payer MEDICAID, SELFPAY ==
--- OUTSIDE RECORDS SUMMARY | 2025-08-27 09:45 | XMS_ITS | Encounter Summary ---
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 0.3 MG/0.3ML injection syringe, Inject 0.3 mL (0.3 mg) as directed if needed for anaphylaxis., Disp: 2 each, Rfl: 1 ??? famotidine (Pepcid) 20 MG tablet, Take 1 tablet (20 mg) by mouth 2 times daily., Disp: 60 tablet, Rfl: 0 ??? FreeStyle lancets, 1 each by Other route 4 times daily. Test blood sugar 4 times a day, Disp: 100 each, Rfl: 5 ??? FREESTYLE LITE test strip, USE TO TEST BLOOD SUGAR FOUR TIMES DAILY. FASTING (BEFORE BREAKFAST), BEFORE LUNCH, BEFORE DINNER AND 2 HOURS AFTER YOUR LARGEST MEAL OF THE DAY., Disp: 100 strip, Rfl:3 glucose (Glutose) 40 % gel oral gel, Administer 15 g orally as needed for blood glucose < 60mg/dl. Use glucagon if pt cannot swallow or is unresponsive. Call emergency if pt is lethargic or unresponsive. (Patient not taking: Reported on 12/31/2024), Disp: 45 g, Rfl: 3 ??? glucose blood (FreeStyle Precision Brent Test) test strip, Use to test blood sugar 3 times daily in case of CGM failure or extremes of BG, Disp: 100 each, Rfl: 11 ??? glycerin (Adult) 2 g suppository, Insert 1 suppository (2 g) into the rectum if needed each dayfor constipation., Disp: 25 suppository, Rfl: 0 ??? guanFACINE (Intuniv) 2 mg 24 hr tablet, Take 1 tablet (2 mg) by mouth Once per day., Disp: 30 tablet, Rfl: 0 ??? hydrocortisone 1 % cream, Apply 1 Application. topically 2 times daily., Disp: , Rfl: ??? insulin degludec (Tresiba FlexTouch) 100 UNIT/ML injection, Administer subcutaneously 32 units daily for 3 days, if fasting sugar >140 increase to 35 units daily, Disp: 15 mL, Rfl: 1 insulin lispro (HumaLOG) 100 UNIT/ML injection, << Sliding Scale Comments >>100 - 149 8 units Call if less than [id number] - 199 10 units 200 - 249 12 units 250 - 299 14 units 300 - 349 16units Call if greater than 400..., Disp: 20 mL, Rfl: 2 ??? lactulose 20 gram/30 mL oral solution, 30mL as needed up to once daily for constipation, Disp: 450 mL, Rfl: 0 ??? levothyroxine (Synthroid, Levoxyl) 25 MCG tablet, Take 1 tablet by mouth before breakfast., Disp: , Rfl: ??? losartan (Cozaar) 100 MG tablet, TAKE 1 TABLET BY MOUTH ONCE DAILY, Disp: 90 tablet, Rfl: 0 ??? metFORMIN XR (Glucophage-XR) 500 MG 24 hr tablet, TAKE 2 TABLETS BY MOUTH WITH BREAKFAST AND TAKE 2 TABLETS BY MOUTH WITH DINNER. DO NOT CRUSH, chew, OR split, Disp: 360 tablet, Rfl: 0 ??? metoprolol succinate XL (Toprol XL) 25 MG 24 hr tablet, Take 1 tablet (25 mg) by mouth Once perday. Do not crush or chew., Disp: 30 tablet, Rfl: 11 ??? naloxone (Narcan) 4 mg/0.1 mL nasal spray, Administer 0.1 mL into affected nostril(s) if needed. (Patient not taking: Reported on 12/31/2024), Disp: , Rfl: ??? nitroglycerin (Nitrostat) 0.4 MG SL tablet, Place 1 tablet under the tongue if needed each day.PRN (Patient not taking: Reported on 12/31/2024), Disp: , Rfl: ??? omeprazole (PriLOSEC) [address] capsule, TAKE 2 CAPSULES BY MOUTH ONCE DAILY DO NOT CRUSH OR chew, Disp: 180 capsule, Rfl: 0 ??? ondansetron ODT (Zofran-ODT) 4 MG disintegrating tablet, Take 4 mg by mouth every 8 (eight) hours if needed for nausea or vomiting., Disp: , Rfl: ??? prazosin (Minipress) 1 MG capsule, Take 1 capsule (1 mg) by mouth at bedtime., Disp: 30 capsule, Rfl: 1 ??? pregabalin (Lyrica) 25 MG capsule, Take 1 capsule (25 mg) by mouth in the morning and 1 capsule(25 mg) at noon and 1 capsule (25 mg) in the evening., Disp: 90 capsule, Rfl: 0 ??? psyllium (Metamucil) 52.63 % powder, 1 tsp once daily in 8 oz water, Disp: 414 g, Rfl: 11 ??? topiramate (Topamax) 100 MG tablet, Take 1 tablet (100 mg) by mouth at bedtime., Disp: 30 tablet, Rfl: 1 ??? traMADol (Ultram) 50 MG tablet, Take 1 tablet (50 mg) by mouth if needed in the morning and at bedtime for severe pain., Disp: 56 tablet, Rfl: 0 ??? Ventolin HFA 108 (90 Base) MCG/ACT inhaler, INHALE TWO PUFFS BY MOUTH EVERY 4 HOURS NEEDED FOR FOR WHEEZING, Disp: 18 g, Rfl: 3 documented in this encounter Miscellaneous Notes * Assessment & Plan Note - Aissatou To NP - 08/27/2025 9:45 AM ESTAssociated Problem(s): Type 2 diabetes mellitus with hyperglycemia (HCC) Orders: POCT Glucose insulin degludec (Tresiba FlexTouch) 100 UNIT/ML injection; Administer subcutaneously 32 units daily for 3 days, if fasting sugar >140 increase to 35 units daily * Assessment & Plan Note - Aissatou To NP - 08/27/2025 9:45 AM ESTAssociated Problem(s): Abnormal thyroid function test Orders: TSH W/Reflex to FT4; Future * Assessment & Plan Note - Aissatou To NP - 08/27/2025 9:45 AM ESTAssociated Problem(s): Constipation Orders: Referral to Gastroenterology; Future Referral to Cardiology; Future * Assessment & Plan Note - Aissatou To NP - 08/27/2025 9:45 AM ESTAssociated Problem(s): Onychomycosis Orders: Referral to Podiatry; Future documented in this encounter Plan of Treatment Upcoming Encounters Date Type Department Care Team (Late st Contact Info) Description 09/19/2025 10:30 AM EST Clinical Support [facility] MEDICINE [address] [place] [address] Alva Frias RN [address] [place] [address] 09/30/2025 10:45 AM EST Office Visit [facility] MEDICINE [address] [place] [address] Tyesha Rogers MD [address] [place] [address] 10/23/2025 1:00 PM EST Office Visit [facility] OPTOMETRY [address] [place] [address] Katharine Carbone, OD [address] [place] [address] Scheduled Orders Name Type Priority Associated Diagnoses Orde r Schedule TSH W/Reflex to FT4 Lab Routine Abnormal thyroid function test Expected: 08/27/2025 (Approximate), Expires: 08/27/2026 Scheduled Referrals Name Type Priority Associated Diagnoses Order Schedule Referral to Gastroenterology Outpatient Referral Routine Other constipation Expected: 08/27/2025 (Approximate), Expires: 08/27/2026 Referral to Cardiology Outpatient Referral Routine Other constipation Expected: 08/27/2025 (Approximate), Expires: 08/27/2026 Referral to Podiatry Outpatient Referral Routine Onychomycosis Expected: 08/27/2025 (Approximate), Expires: 08/27/2026 documented as of this encounter Goals Goal Patient Goal Type Associated Problems Recent Progress Patient-Stated? Author Help patients manage their type 2 diabetes Care Plan Help patients manage their type 2 diabetes No Samantha Lima ANP Weekly blood pressure task Care Plan Weekly blood pressure task No Samantha Lima ANP Help patients manage their type 2 diabetes Care Plan Help patients manage their type 2 diabetes No Samantha Lima ANP Patient has chronic kidney disease Care Plan Patient has chronic kidney disease Samantha Kirkland ANP Weekly blood pressure task Care Plan Weekly blood pressure task No Samantha Lima ANP Patient has chronic kidney disease Care Plan Patient has chronic kidney disease No Samantha Lima ANP Weekly blood pressure task Care Plan Weekly blood pressure task No [facility] Weekly blood pressure task Care Plan Weekly blood pressure task No [facility] Patient has chronic kidney disease Care Plan Patient has chronic kidney disease No [facility] Patient has chronic kidney disease Care Plan Patient has chronic kidney disease No [facility] Weekly blood pressure task Care Plan Weekly blood pressure task No Dania Hidalgo Weekly blood pressure task Care Plan Weekly blood pressure task No Dania Hidalgo Patient has chronic kidney disease Care Plan Patient has chronic kidney disease No Dania Hidalgo Patient has chronic kidney disease Care Plan Patient has chronic kidney disease No Dania Hidalgo Weekly blood pressure task Care Plan Weekly blood pressure task No Dania Hidalgo Weekly blood pressure task Care Plan Weekly blood pressure task No Dania Hidalgo Patient has chronic kidney disease Care Plan Patient has chronic kidney disease No Dania Hidalgo Patient has chronic kidney disease Care Plan Patient has chronic kidney disease No Dania Hidalgo Weekly blood pressure task Care Plan Weekly blood pressure task No Randa Estes LPN Weekly blood pressure task Care Plan Weekly blood pressure task No Randa Estes LPN Patient has chronic kidney disease Care Plan Patient has chronic kidney disease No Randa Estes LPN Patient has chronic kidney disease Care Plan Patient has chronic kidney disease No Randa Estes LPN Weekly blood pressure task Care Plan Weekly blood pressure task No Basilio, Mayra Weekly blood pressure task Care Plan Weekly blood pressure task No Basilio, Mayra Patient has chronic kidney disease Care Plan Patient has chronic kidney disease No Basilio, Mayra Patient has chronic kidney disease Care Plan Patient has chronic kidney disease No Basilio, Mayra Weekly blood pressure task Care Plan Weekly blood pressure task No Basilio, Mayra Weekly blood pressure task Care Plan Weekly blood pressure task No Basilio, Mayra Patient has chronic kidney disease Care Plan Patient has chronic kidney disease No Basilio, Mayra Patient has chronic kidney disease Care Plan Patient has chronic kidney disease No Mayra Basilio Weekly blood pressure task Care Plan Weekly blood pressure task No Hi Cortez PharmD Weekly blood pressure task Care Plan Weekly blood pressure task No Hi Cortez PharmD Patient has chronic kidney disease Care Plan Patient has chronic kidney disease No Hi Cortez PharmD Patient has chronic kidney disease Care Plan Patient has chronic kidney disease No Hi Cortez PharmD Weekly blood pressure task Care Plan Weekly blood pressure task No Felicia Cash MA Weekly blood pressure task Care Plan Weekly blood pressure task No Felicia Cash [place] Patient has chronic kidney disease Care Plan Patient has chronic kidney disease No Felicia Cash [place] Patient has chronic kidney disease Care Plan Patient has chronic kidney disease No Felicia Cash MA Weekly blood pressure task Care Plan Weekly blood pressure task No Soumya Bagley RN Weekly blood pressure task Care Plan Weekly blood pressure task No Soumya Bagley RN Patient has chronic kidney disease Care Plan Patient has chronic kidney disease No Soumya Bagley RN Patient has chronic kidney disease Care Plan Patient has chronic kidney disease No Soumya Bagley RN Weekly blood pressure task Care Plan Weekly blood pressure task No Mira Garcia MA Weekly blood pressure task Care Plan Weekly blood pressure task No Mira Garcia MA Patient has chronic kidney disease Care Plan Patient has chronic kidney disease No Mira Garcia [place] Patient has chronic kidney disease Care Plan Patient has chronic kidney disease No Mira Garcia MA Weekly blood pressure task Care Plan Weekly blood pressure task No Neha Mondragon RN Weekly blood pressure task Care Plan Weekly blood pressure task No Neha Mondragon RN Patient has chronic kidney disease Care Plan Patient has chronic kidney disease No Neha Mondragon RN Patient has chronic kidney disease Care Plan Patient has chronic kidney disease No Neha Mondragon RN Weekly blood pressure task Care Plan Weekly blood pressure task No Tamar Gilliland Weekly blood pressure task Care Plan Weekly blood pressure task No Tamar Gilliland Patient has chronic kidney disease Care Plan Patient has chronic kidney disease No Tamar Gilliland Patient has chronic kidney disease Care Plan Patient has chronic kidney disease No Tamar Gilliland Weekly blood pressure task Care Plan Weekly blood pressure task No Angel Sanchez RN Weekly blood pressure task Care Plan Weekly blood pressure task No Angel Sanchez RN Patient has chronic kidney disease Care Plan Patient has chronic kidney disease No Angel Sanchez RN Patient has chronic kidney disease Care Plan Patient has chronic kidney disease No Angel Sanchez RN Weekly blood pressure task Care Plan Weekly blood pressure task No Colon York, Katie Weekly blood pressure task Care Plan Weekly blood pressure task No Colon York, Katie Patient has chronic kidney disease Care Plan Patient has chronic kidney disease No Colon York, Katie Patient has chronic kidney disease Care Plan Patient has chronic kidney disease No Colon York, Katie Weekly blood pressure task Care Plan Weekly blood pressure task No Colon York, Katie Weekly blood pressure task Care Plan Weekly blood pressure task No Colon York, Katie Patient has chronic kidney disease Care Plan Patient has chronic kidney disease No Colon York, Katie Patient has chronic kidney disease Care Plan Patient has chronic kidney disease No Colon York, Katie Weekly blood pressure task Care Plan Weekly blood pressure task No Alva Frias RN Weekly blood pressure task Care Plan Weekly blood pressure task No Alva Frias RN Patient has chronic kidney disease Care Plan Patient has chronic kidney disease No Alva Frias RN Patient has chronic kidney disease Care Plan Patient has chronic kidney disease No Alva Frias RN Weekly blood pressure task Care Plan Weekly blood pressure task No Mayra Basilio Weekly blood pressure task Care Plan Weekly blood pressure task No Mayra Basilio Patient has chronic kidney disease Care Plan Patient has chronic kidney disease No Mayra Basilio Patient has chronic kidney disease Care Plan Patient has chronic kidney disease No Mayra Basilio Weekly blood pressure task Care Plan Weekly blood pressure task No Silvino Gilliland Weekly blood pressure task Care Plan Weekly blood pressure task No Silvino Gilliland Patient has chronic kidney disease Care Plan Patient has chronic kidney disease No Silvino Gilliland Patient has chronic kidney disease Care Plan Patient has chronic kidney disease No Silvino Gilliland Weekly blood pressure task Care Plan Weekly blood pressure task No Mayra Basilio Weekly blood pressure task Care Plan Weekly blood pressure task No BasilioMayra baker Patient has chronic kidney disease Care Plan Patient has chronic kidney disease No Mayra Basilio Patient has chronic kidney disease Care Plan Patient has chronic kidney disease No Mayra Basilio Weekly blood pressure task Care Plan Weekly blood pressure task No Kalyan Gilliland Weekly blood pressure task Care Plan Weekly blood pressure task No Kalyan Gilliland Patient has chronic kidney disease Care Plan Patient has chronic kidney disease No Kalyan Gilliland Patient has chronic kidney disease Care Plan Patient has chronic kidney disease No Kalyan Gilliland Weekly blood pressure task Care Plan Weekly blood pressure task No Jaylen, Aminata Weekly blood pressure task Care Plan Weekly blood pressure task No York, Aminata Patient has chronic kidney disease Care Plan Patient has chronic kidney disease No York, Aminata Patient has chronic kidney disease Care Plan Patient has chronic kidney disease No York, Aminata Weekly blood pressure task Care Plan Weekly blood pressure task No York, Amianta Weekly blood pressure task Care Plan Weekly blood pressure task No York, Aminata Patient has chronic kidney disease Care Plan Patient has chronic kidney disease No York, Aminata Patient has chronic kidney disease Care Plan Patient has chronic kidney disease No York, Aminata Weekly blood pressure task Care Plan Weekly blood pressure task No Umer Calero Weekly blood pressure task Care Plan Weekly blood pressure task No Umer Calero Patient has chronic kidney disease Care Plan Patient has chronic kidney disease No Umer Calero Patient has chronic kidney disease Care Plan Patient has chronic kidney disease No Umer Calero Weekly blood pressure task Care Plan Weekly blood pressure task No Umer Calero Weekly blood pressure task Care Plan Weekly blood pressure task No Abdias Umer Patient has chronic kidney disease Care Plan Patient has chronic kidney disease No Umer Calero Patient has chronic kidney disease Care Plan Patient has chronic kidney disease No Umer Calero Weekly blood pressure task Care Plan Weekly blood pressure task No Hi Cortez, PharmD Weekly blood pressure task Care Plan Weekly blood pressure task No Hi Cortez, PharmD Patient has chronic kidney disease Care Plan Patient has chronic kidney disease No Hi Cortez, PharmD Patient has chronic kidney disease Care Plan Patient has chronic kidney disease No Hi Cortez, PharmD Weekly blood pressure task Care Plan Weekly blood pressure task No Arianne Champagne RN Weekly blood pressure task Care Plan Weekly blood pressure task No Arianne Champagne RN Patient has chronic kidney disease Care Plan Patient has chronic kidney disease No Arianne Champagne RN Patient has chronic kidney disease Care Plan Patient has chronic kidney disease No Arianne Champagne RN Weekly blood pressure task Care Plan Weekly blood pressure task No Tati Neri PharmD Weekly blood pressure task Care Plan Weekly blood pressure task No Tati Neri PharmD Patient has chronic kidney disease Care Plan Patient has chronic kidney disease No Tati Neri PharmD Patient has chronic kidney disease Care Plan Patient has chronic kidney disease No Tati Neri PharmD Weekly blood pressure task Care Plan Weekly blood pressure task No Jose E Lowe MA Weekly blood pressure task Care Plan Weekly blood pressure task No Jose E Lowe [place] Patient has chronic kidney disease Care Plan Patient has chronic kidney disease No Jose E Lowe [place] Patient has chronic kidney disease Care Plan Patient has chronic kidney disease No Jose E Lowe MA Weekly blood pressure task Care Plan Weekly blood pressure task No Jose E Lowe MA Weekly blood pressure task Care Plan Weekly blood pressure task No Jose E Lowe MA Patient has chronic kidney disease Care Plan Patient has chronic kidney disease No Jose E Lowe [place] Patient has chronic kidney disease Care Plan Patient has chronic kidney disease No Jose E Lowe MA documented as of this encounter Procedures Procedure Name Priority Date/Time Associated Diagnosis Comments POCT GLUCOSE Routine 08/27/2025 10:19 AM EST Type 2 diabetes mellitus with hyperglycemia, with long-term current use of insulin ([facility]) documented in this encounter Results * POCT Glucose (08/27/2025 10:19 AM EST) Glucose Blood, POC 134 60 - 200 mg/dL QC Media Lot # [id number] Lot# Expiration Date Blood Capillary blood specimen / Unknown 08/27/2025 10:19 AM EST us Aissatou To NP POINT OF CARE TEST ENTER/EDIT OR DERABLES Final Result documented in this encounter Visit Diagnoses Diagnosis Abnormal thyroid function test- Primary Nonspecific abnormal results of thyroid function study Type 2 diabetes mellitus with hyperglycemia, with long-term current use of insulin ([facility]) Other constipation Onychomycosis Dermatophytosis of nail documented in this encounter Additional Health Concerns Active Problems Noted Date Diagnosed Date Help patients manage their type 2 diabetes 07/23 Weekly blood pressure task 07/23/2025 Help patients manage their type 2 diabetes 07/23 Patient has chronic kidney disease 07/23/2025 Weekly blood pressure task 07/23/2025 Patient has chronic kidney disease 07/23/2025 Weekly blood pressure task 07/28/2025 Weekly blood pressure task 07/28/2025 Patient has chronic kidney disease 07/28/2025 Patient has chronic kidney disease 07/28/2025 Weekly blood pressure task 07/29/2025 Weekly blood pressure task 07/29/2025 Patient has chronic kidney disease 07/29/2025 Patient has chronic kidney disease 07/29/2025 Weekly blood pressure task 07/29/2025 Weekly blood pressure task 07/29/2025 Patient has chronic kidney disease 07/29/2025 Patient has chronic kidney disease 07/29/2025 Weekly blood pressure task 07/29/2025 Weekly blood pressure task 07/29/2025 Patient has chronic kidney disease 07/29/2025 Patient has chronic kidney disease 07/29/2025 Weekly blood pressure task 07/29/2025 Weekly blood pressure task 07/29/2025 Patient has chronic kidney disease 07/29/2025 Patient has chronic kidney disease 07/29/2025 Weekly blood pressure task 07/31/2025 Weekly blood pressure task 07/31/2025 Patient has chronic kidney disease 07/31/2025 Patient has chronic kidney disease 07/31/2025 Weekly blood pressure task 07/31/2025 Weekly blood pressure task 07/31/2025 Patient has chronic kidney disease 07/31/2025 Patient has chronic kidney disease 07/31/2025 Weekly blood pressure task 08/04/2025 Weekly blood pressure task 08/04/2025 Patient has chronic kidney disease 08/04/2025 Patient has chronic kidney disease 08/04/2025 Weekly blood pressure task 08/04/2025 Weekly blood pressure task 08/04/2025 Patient has chronic kidney disease 08/04/2025 Patient has chronic kidney disease 08/04/2025 Weekly blood pressure task 08/04/2025 Weekly blood pressure task 08/04/2025 Patient has chronic kidney disease 08/04/2025 Patient has chronic kidney disease 08/04/2025 Weekly blood pressure task 08/05/2025 Weekly blood pressure task 08/05/2025 Patient has chronic kidney disease 08/05/2025 Patient has chronic kidney disease 08/05/2025 Weekly blood pressure task 08/05/2025 Weekly blood pressure task 08/05/2025 Patient has chronic kidney disease 08/05/2025 Patient has chronic kidney disease 08/05/2025 Weekly blood pressure task 08/05/2025 Weekly blood pressure task 08/05/2025 Patient has chronic kidney disease 08/05/2025 Patient has chronic kidney disease 08/05/2025 Weekly blood pressure task 08/11/2025 Weekly blood pressure task 08/11/2025 Patient has chronic kidney disease 08/11/2025 Patient has chronic kidney disease 08/11/2025 Weekly blood pressure task 08/11/2025 Weekly blood pressure task 08/11/2025 Patient has chronic kidney disease 08/11/2025 Patient has chronic kidney disease 08/11/2025 Weekly blood pressure task 08/11/2025 Weekly blood pressure task 08/11/2025 Patient has chronic kidney disease 08/11/2025 Patient has chronic kidney disease 08/11/2025 Weekly blood pressure task 08/11/2025 Weekly blood pressure task 08/11/2025 Patient has chronic kidney disease 08/11/2025 Patient has chronic kidney disease 08/11/2025 Weekly blood pressure task 08/13/2025 Weekly blood pressure task 08/13/2025 Patient has chronic kidney disease 08/13/2025 Patient has chronic kidney disease 08/13/2025 Weekly blood pressure task 08/13/2025 Weekly blood pressure task 08/13/2025 Patient has chronic kidney disease 08/13/2025 Patient has chronic kidney disease 08/13/2025 Weekly blood pressure task 08/18/2025 Weekly blood pressure task 08/18/2025 Patient has chronic kidney disease 08/18/2025 Patient has chronic kidney disease 08/18/2025 Weekly blood pressure task 08/19/2025 Weekly blood pressure task 08/19/2025 Patient has chronic kidney disease 08/19/2025 Patient has chronic kidney disease 08/19/2025 Weekly blood pressure task 08/19/2025 Weekly blood pressure task 08/19/2025 Patient has chronic kidney disease 08/19/2025 Patient has chronic kidney disease 08/19/2025 Weekly blood pressure task 08/22/2025 Weekly blood pressure task 08/22/2025 Patient has chronic kidney disease 08/22/2025 Patient has chronic kidney disease 08/22/2025 Weekly blood pressure task 08/25/2025 Weekly blood pressure task 08/25/2025 Patient has chronic kidney disease 08/25/2025 Patient has chronic kidney disease 08/25/2025 Weekly blood pressure task 08/25/2025 Weekly blood pressure task 08/25/2025 Patient has chronic kidney disease 08/25/2025 Patient has chronic kidney disease 08/25/2025 Weekly blood pressure task 08/25/2025 Weekly blood pressure task 08/25/2025 Patient has chronic kidney disease 08/25/2025 Patient has chronic kidney disease 08/25/2025 Weekly blood pressure task 08/26/2025 Weekly blood pressure task 08/26/2025 Patient has chronic kidney disease 08/26/2025 Patient has chronic kidney disease 08/26/2025 Weekly blood pressure task 08/26/2025 Weekly blood pressure task 08/26/2025 Patient has chronic kidney disease 08/26/2025 Patient has chronic kidney disease 08/26/2025 Weekly blood pressure task 08/26/2025 Weekly blood pressure task 08/26/2025 Patient has chronic kidney disease 08/26/2025 Patient has chronic kidney disease 08/26/2025 Assessment Noted Time PHQ-9 Depression Total Score: 14 025 1:25 PM EDT documented as of this encounter Care Teams Lab Coordinator Relationship Specialty Start Date End Date Tyesha Rogers MD [address] [place] [address] PCP - General Family Medicine 04/25/19 Hi Cortez, ManasD [address] [place] [address] Pharmacist Pharmacy 08/04/25 documented as of this encounter
--- OUTSIDE RECORDS SUMMARY | 2025-08-27 13:27 | XMS_ITS | Encounter Summary ---
Author Organization [employer] Address 75 [facility] 7t [place] [address] Care Team Providers Care Emt Intermediate Name Role Phone Tyesha Rogers MD Primary Care Provider [phone] Hi Cortez PharmD Unavailable [phone] Reason for Visit * Reason Onset Date Comments Hospital Follow-up 05/07/2025 Encounter Details Date Type Department Care Team ([facility] st Contact Info) Description 05/07/2025 Telephone [facility] MEDICINE [address] [place], [place] [phone] Tyesha Rogers MD [address] [place], [place] [phone] Hospital Follow-up Social History Tobacco Use Types [...] pt requesting a HDF appt. Hospital: [facility] Date of admission: 04/23/2025 Discharge date: 04/23/2025 Diagnosed: Fall twist of right ankle *Send message to [place] Clinical Care Coordinators Spoke to: Heather with [facility] Contact [phone] documented in this encounter Plan of Treatment Upcoming Encounters Date Type Department Care Team (Late st Contact Info) Description 09/19/2025 10:30 AM EST Clinical Support [address] [address] Alva Frias RN [address] [place] [address] 09/30/2025 10:45 AM EST Office Visit [address] [address] Tyesha Rogers MD [address] [place] [address] 10/23/2025 1:00 PM EST Office Visit [facility] OPTOMETRY [address] [place], [place] [phone] Katharine Carbone, OD [address] [place] [address] documented as of this encounter Visit Diagnoses Not on filedocumented in this encounter Additional Health Concerns Assessment Noted Time PHQ-9 Depression Total Score: 14 025 1:25 PM EDT documented as of this encounter Care Teams Emt Intermediate Relationship Specialty Start Date End Date Tyesha Rogers MD 230 [place] [address] PCP - General Family Medicine 04/25/19 Hi Cortez, ManasD [address] [place], [place] [phone] Pharmacist Pharmacy 08/04/25 documented as of this encounter
--- OUTSIDE RECORDS SUMMARY | 2025-08-27 13:27 | XMS_ITS | Encounter Summary ---
Author Organization [email or web address] Address 75 [facility] 7 [place] [address] Care Team Providers Care Uniforms Sales Representative Name Role Phone Tyesha Rogers MD Primary Care Provider [phone] Hi Cortez PharmD Unavailable [phone] Reason for Visit * Reason Onset Date Comments PT1 08/22/2025 Encounter Details Date Type Department Care Team (Late st Contact Info) Description 08/22/2025 Telephone [facility] MEDICINE [address] [place], [place] [phone] Tyesha Rogers MD [address] [place], [place] [phone] PT1 Social History Tobacco Use Types Packs/Day Years [...] encounter Miscellaneous Notes * Telephone Encounter - Yoselin Gilliland - 08/22/2025 1:02 PM EST CHW Yoselin Gilliland submitted PT1 to [address] [place] [address] in [facility], will send letter of approval or denial, placed call to patient unable to LVM, please relay message. * Telephone Encounter - Umer Calero - 08/22/2025 10:05 AM EST Patient calling requesting PT1 Home Address verified: Y/N: Yes Provider name or facility name: [address] [place] [address] Escort needed: Y/N: No Do you have a wheelchair: Y/N: No Visits: 2x month ) documented in this encounter Plan of Treatment Upcoming Encounters Date Type Department Care Team ([facility] st Contact Info) Description 09/19/2025 10:30 AM EST Clinical Support [facility] MEDICINE [address] [place] [phone] Alva Frias RN [address] [place], [place] [phone] 09/30/2025 10:45 AM EST Office Visit [facility] MEDICINE [address] [place] [address] Tyesha Rogers MD [address] [place] [address] 10/23/2025 1:00 PM EST Office Visit [facility] OPTOMETRY [address] [place] [address] Katharine Carbone, OD 230 [place] [address] documented as of this encounter Goals Goal [...] Care Plan Weekly blood pressure task No [place] FNP Weekly blood pressure task Care Plan Weekly blood pressure task No [place] [facility] Patient has chronic kidney disease Care Plan Patient has chronic kidney disease No [place] [facility] Patient has chronic kidney disease Care Plan Patient has chronic kidney disease No [place] FNP Weekly blood pressure task Care Plan Weekly [...] Weekly blood pressure task No Hi Cortez PharmMarvin Weekly blood pressure task Care Plan Weekly blood pressure task No Hi Cortez, PharmMarvin Patient has chronic kidney disease Care Plan [...] Plan Weekly blood pressure task No Neha Mondragon, RN Patient has chronic kidney disease Care [...] Care Plan Weekly blood pressure task No Katie Louis Weekly blood pressure task Care Plan Weekly blood pressure task No Katie Louis Patient has chronic kidney disease Care Plan Patient has chronic kidney disease No Katie Louis Patient has chronic kidney disease Care Plan Patient has chronic kidney disease No [place] Katie [place] Weekly blood pressure task Care Plan Weekly blood pressure task No [place] Katie [place] Weekly blood pressure task Care Plan Weekly blood pressure task No [place] Katie [place] Patient has chronic kidney disease Care Plan Patient has chronic kidney disease No Colon Katie [place] Patient has chronic kidney disease Care Plan Patient has chronic kidney disease No Colon Katie [place] Weekly blood pressure task Care Plan Weekly [...] Plan Patient has chronic kidney disease No Basilio Mayra Patient has chronic kidney disease Care Plan Patient has chronic kidney disease No BasilioMayra Weekly blood pressure task Care Plan Weekly [...] Plan Weekly blood pressure task No BasilioMayra Weekly blood pressure task Care Plan Weekly blood pressure task No Basilio Mayra Patient has chronic kidney disease Care Plan Patient has chronic kidney disease No BasilioBhaviksa Patient has chronic kidney disease Care Plan Patient has chronic kidney disease No BasilioMayra Weekly blood pressure task Care Plan Weekly [...] Care Plan Weekly blood pressure task No Aminata [place] Weekly blood pressure task Care Plan Weekly blood pressure task No Aminata [place] Patient has chronic kidney disease Care Plan Patient has chronic kidney disease No Aminata [place] Patient has chronic kidney disease Care Plan Patient has chronic kidney disease No Aminata [place] Weekly blood pressure task Care Plan Weekly blood pressure task No Aminata [place] Weekly blood pressure task Care Plan Weekly blood pressure task No Aminata [place] Patient has chronic kidney disease Care Plan Patient has chronic kidney disease No Aminata [place] Patient has chronic kidney disease Care Plan Patient has chronic kidney disease No Aminata [place] Weekly blood pressure task Care Plan Weekly blood pressure task No Umer Calero Weekly blood pressure task Care Plan Weekly blood pressure task No Umer Calero Patient has chronic kidney disease Care Plan Patient has chronic kidney disease No Umer Calero Patient has chronic kidney disease Care Plan Patient has chronic kidney disease Umer Ruiz documented as of this encounter Visit Diagnoses Not on filedocumented in this encounter Additional Health Concerns Active [...] 08/22/2025 Patient has chronic kidney disease 08/22/2025 Assessment Noted Time PHQ-9 Depression Total Score: 14 12/31/ 025 1:25 PM EDT documented as of this encounter Care Teams Uniforms Sales Representative Relationship Specialty Start Date End Date Tyesha Rogers MD 230 [place] [address] PCP - General Family Medicine 04/25/19 Hi Cortez, PharmD [address] [place] [address] Pharmacist Pharmacy 08/04/25 documented as of this encounter
--- OUTSIDE RECORDS SUMMARY | 2025-08-27 13:27 | XMS_ITS | Encounter Summary ---
Author Organization [employer] Address 75 [facility] 7 [place] [address] Care Team Providers Care Rn Shift Mgr Name Role Phone Tyesha Rogers MD Primary Care Provider [phone] Hi Cortez PharmD Unavailable [phone] Reason for Visit * Reason Onset Date Comments Call Back Request 05/01/2025 Encounter Details Date Type Department Care Team ([facility] st Contact Info) Description 05/01/2025 Telephone [facility] MEDICINE [address] [place], [place] [phone] Tyesha Rogers MD [address] [place], [place] [phone] Call Back Request Social History Tobacco Use [...] Description 09/19/2025 10:30 AM EST Clinical Support [facility] MEDICINE [address] [place] [address] Alva Frias RN [address] [place] [address] 09/30/2025 10:45 AM EST Office Visit [facility] MEDICINE [address] [place] [address] Tyesha Rogers MD [address] [place] [address] 10/23/2025 1:00 PM EST Office Visit [facility] OPTOMETRY [address] [place], [place] [phone] Raf, Katharine, OD 230 [place] [address] documented as of this encounter Visit Diagnoses Not on filedocumented in this encounter Additional Health Concerns Assessment Noted Time PHQ-9 Depression Total Score: 14 025 1:25 PM EDT documented as of this encounter Care Teams Rn Shift Mgr Relationship Specialty Start Date End Date Tyesha Rogers MD [address] [place], [place] [phone] PCP - General Family Medicine 04/25/19 Hi Cortez, PharmD [address] [place] [phone] Pharmacist Pharmacy 08/04/25 documented as of this encounter
--- OUTSIDE RECORDS SUMMARY | 2025-08-27 13:27 | XMS_ITS | Encounter Summary ---
Author Organization [employer] Address 75 [facility] 7t [place] [address] Care Team Providers Care Piano Bench Assembler Name Role Phone yTesha Rogers MD Primary Care Provider [phone] Hi Cortez PharmD Unavailable [phone] Reason for Visit * Reason Comments Med Refill Encounter Details Date Type Department Care Team (Late st Contact Info) Description 08/25/2025 Refill [facility] MEDICINE 230 [place], [place] [phone] Samantha Lima, ANP [address] [place], [place] [phone] Epigastric pain Social History Tobacco Use Types Packs/Day [...] Description 09/19/2025 10:30 AM EST Clinical Support [facility] MEDICINE [address] [place] [address] Alva Frias RN [address] [place] [address] 09/30/2025 10:45 AM EST Office Visit [facility] MEDICINE [address] [place] [address] Tyesha Rogers MD [address] [place] [address] 10/23/2025 1:00 PM EST Office Visit [facility] OPTOMETRY [address] [place] [address] Katharine Carbone OD 230 [place] [address] documented as of this encounter Goals Goal Patient Goal Type Associated Problems Recent Progress Patient-Stated? Author Help patients manage their type 2 diabetes Care Plan Help patients manage their type 2 diabetes Samantha Kirkland ANP Weekly blood pressure task Care Plan Weekly blood pressure task Samantha Kirkland ANP Help patients manage their type 2 [...] Care Plan Weekly blood pressure task No [place] Marcy, [employer] Weekly blood pressure task Care Plan Weekly blood pressure task No [place] Marcy, [facility] Patient has chronic kidney disease Care Plan Patient has chronic kidney disease No [place] Marcy, [facility] Patient has chronic kidney disease Care Plan Patient has chronic kidney disease No [place] Marcy, [facility] Weekly blood pressure task Care Plan Weekly [...] Weekly blood pressure task No Basilio Mayra Weekly blood pressure task Care Plan [...] Plan Patient has chronic kidney disease No Bhavik Basiliosa Patient has chronic kidney disease Care Plan Patient has chronic kidney disease No Mayra Basilio Weekly blood pressure task Care Plan Weekly blood pressure task No Hi Cortez PharmD Weekly blood pressure task Care Plan Weekly blood pressure task No Hi Cortez PharmD Patient has chronic kidney disease Care Plan Patient has chronic kidney disease No Hi Cortez PharmMarvin Patient has chronic kidney disease Care [...] Plan Weekly blood pressure task No Angel Sanchez, LUCIUS Weekly blood pressure task Care Plan Weekly blood pressure task No Angel Sanchez, RN Patient has chronic kidney disease Care Plan Patient has chronic kidney disease No Angel Sanchez, RN Patient has chronic kidney disease Care Plan Patient has chronic kidney disease No Angel Sanchez, RN Weekly blood pressure task Care Plan [...] Patient has chronic kidney disease No BasilioMayra baker Patient has chronic kidney [...] Weekly blood pressure task No BasilioMayra baker Weekly blood pressure task Care Plan Weekly [...] Plan Patient has chronic kidney disease No Jaylen Aminata Patient has chronic kidney disease Care Plan Patient has chronic kidney disease No Aminata [place] Weekly blood pressure task Care Plan Weekly blood pressure task No Ashlyn Yorkz Weekly blood pressure task Care Plan Weekly [...] Plan Patient has chronic kidney disease No Abdias Umer Weekly blood pressure task Care Plan Weekly blood pressure task No Umer Calero Weekly blood pressure task Care Plan Weekly blood pressure task No Umer Calero Patient has chronic kidney disease Care Plan Patient has chronic kidney disease No Abdias Umer Patient has chronic kidney disease Care Plan Patient has chronic kidney disease No Abdias Umer Weekly blood pressure task Care Plan Weekly [...] Care Plan Patient has chronic kidney disease Arianne Suazo, RN Patient has chronic kidney disease Care Plan Patient has chronic kidney disease Arianne Suazo RN documented as of this encounter Visit Diagnoses Diagnosis Epigastric pain Abdominal pain, epigastric documented in this encounter Additional Health Concerns [...] 08/25/2025 Patient has chronic kidney disease 08/25/2025 Assessment Noted Time PHQ-9 Depression Total Score: 14 025 1:25 PM EDT documented as of this encounter Care Teams Piano Bench Assembler Relationship Specialty Start Date End Date Tyesha Rogers MD [address] [place] [address] PCP - General Family Medicine 04/25/19 Hi Cortez, ManasD [address] [place] [address] Pharmacist Pharmacy 08/04/25 documented as of this encounter
--- OUTSIDE RECORDS SUMMARY | 2025-08-27 13:27 | XMS_ITS | Encounter Summary ---
Author Organization [email or web address] Address 75 [facility] 7t [place] [address] Care Team Providers Care Radio Station Audio Engineer Name Role Phone Tyesha Rogers MD Primary Care Provider [phone] Hi Cortez PharmD Unavailable [phone] Encounter Details Date Type Department Care Team (Late st Contact Info) Description 04/23/2025 Orders Only [facility] MEDICINE [address] [place], [place] [phone] Tyesha Rogers MD [address] [place], [place] [phone] Social History Tobacco Use Types Packs/Day Years [...] Description 09/19/2025 10:30 AM EST Clinical Support [facility] MEDICINE [address] [place] [address] Alva Frias, LUCIUS [address] [place] [address] 09/30/2025 10:45 AM EST Office Visit [facility] MEDICINE [address] [place] [address] Tyesha Rogers MD [address] [place] [address] 10/23/2025 1:00 PM EST Office Visit [facility] OPTOMETRY [address] [place] [address] Katharine Carbone, ZAHIDA 230 [place] [address] documented as of this encounter Procedures Procedure Name Priority Date/Time Associated Diagnosis Comments GLUCOSE, WHOLE BLOOD Routine 04/23/2025 11:53 AM EDT GLUCOSE, WHOLE BLOOD Routine 04/23/2025 11:21 AM EDT GLUCOSE, WHOLE BLOOD Routine 04/23/2025 10:52 AM EDT documented in this encounter Results * (ABNORMAL) Glucose, Whole Blood (04/23/2025 11:53 AM EDT) Glucose, Whole Blood 378(HH) 60 - 115 mg/dL [facility] Comment:METER #: [id number] 04/23/2025 11:5 3 AM EDT 04/23/2025 11:57 AM EDT us Generic External Data Provider LAB BLOOD ORDERAB LES Final Result Performing Organization Address [facility] de Phone Number [facility] [address] [place] [phone] * (ABNORMAL) Glucose, Whole Blood (04/23/2025 11:21 AM EDT) Glucose, Whole Blood 359(HH) 60 - 115 mg/dL [facility] Comment:METER #: [id number] 7 04/23/2025 11:2 1 AM EDT 04/23/2025 11:24 AM EDT Generic External Data Provider LAB BLOOD ORDERAB LES Final Result Performing Organization Address [facility] Co de Phone Number [facility] [address] [place] [phone] * (ABNORMAL) Glucose, Whole Blood (04/23/2025 10:52 AM EDT) Glucose, Whole Blood 371(HH) 60 - 115 mg/dL [facility] Comment:METER #: [id number] 7 04/23/2025 10:5 2 AM EDT 04/23/2025 10:55 AM EDT us Generic External Data Provider LAB BLOOD ORDERAB LES Final Result Performing Organization Address [facility]/State/ZIP Co de Phone Number [facility] [address] [place] [address] [phone] documented in this encounter Visit Diagnoses Not on filedocumented in this encounter Additional Health Concerns Assessment Noted Time PHQ-9 Depression Total Score: 14 12/31/ 025 1:25 PM EDT documented as of this encounter Care Teams Radio Station Audio Engineer Relationship Specialty Start Date End Date Tyesha Rogers MD [address] [place] [address] PCP - General Family Medicine 04/25/19 Hi Cortez, ManasD [address] [place] [phone] Pharmacist Pharmacy 08/04/25 documented as of this encounter
--- OUTSIDE RECORDS SUMMARY | 2025-08-27 13:28 | XMS_ITS | Encounter Summary ---
Author Organization [employer] Address 75 [facility] 7 [place] [address] Care Team Providers Care Field Scout Name Role Phone Tyesha Rogers MD Primary Care Provider [phone] Hi Cortez PharmD Unavailable [phone] Reason for Visit * Reason Onset Date Comments Chart Prep 08/26/2025 Encounter Details Date Type Department Care Team (Late st Contact Info) Description 08/26/2025 Telephone [facility] MEDICINE 230 [place], [place] [phone] Tyesha Rogers MD [address] [place], [place] [phone] Chart Prep Social History Tobacco Use Types Packs/Day Years [...] encounter Miscellaneous Notes * Telephone Encounter - Jose E Lowe MA - 08/26/2025 2:37 PM EST Chart Prep Labs: done Images: done Referrals: appointment pending Vaccines due: Covid, RSV, and Zoster Screenings: colonoscopy, mammogram, pap smear, and eye exam Overdue care gaps: Glucose HDF NOTES ARE IN CHART documented in this encounter Plan of Treatment Upcoming Encounters Date Type Department Care Team (Late st Contact Info) Description 09/19/2025 10:30 AM EST Clinical Support [facility] MEDICINE [address] [place] [address] Alva Frias RN 505 [place] [address] 09/30/2025 10:45 AM EST Office Visit [facility] MEDICINE [address] [place] [address] Tyesha Rogers MD [address] [place] [address] 10/23/2025 1:00 PM EST Office Visit [facility] OPTOMETRY [address] [place] [address] Katharine Carbone, OD [address] [place] [address] documented as of this encounter Goals Goal [...] Care Plan Weekly blood pressure task No DorothyMarcy FNP Weekly blood pressure task Care Plan Weekly blood pressure task No DorothyMarcy [facility] Patient has chronic kidney disease Care Plan Patient has chronic kidney disease No DorothyMarcy [facility] Patient has chronic kidney disease Care Plan Patient has chronic kidney disease No DorothyMarcy [facility] Weekly blood pressure task Care Plan Weekly [...] Care Plan Weekly blood pressure task No Miar Garcia [place] Patient has chronic kidney disease Care Plan Patient has chronic kidney disease No Mira Garcia [place] Patient has chronic kidney disease Care Plan Patient has chronic kidney disease No Mira Garcia [place] Weekly blood pressure task Care Plan Weekly blood pressure task No Neha Mondragon, LUCIUS Weekly blood pressure task Care Plan Weekly blood pressure task No Neha Mondragon, LUCIUS Patient has chronic kidney disease Care Plan Patient has chronic kidney disease No Neha Mondragon, LUCIUS Patient has chronic kidney disease Care Plan [...] Plan Weekly blood pressure task No Alva Frias, LUCIUS Weekly blood pressure task Care Plan Weekly blood pressure task No Alva Frias, LUCIUS Patient has chronic kidney disease Care Plan Patient has chronic kidney disease No Alva Frias, LUCIUS Patient has chronic kidney disease Care Plan Patient has chronic kidney disease No Alva Frias, LUCIUS Weekly blood pressure task Care Plan Weekly blood pressure task No Mayra Basilio Weekly blood pressure task Care Plan Weekly blood pressure task No Basilio, Mayra Patient has chronic kidney disease Care Plan Patient has chronic kidney disease No BasilioBhaviksa Patient has chronic kidney disease Care Plan Patient has chronic kidney disease No Basilio Mayra Weekly blood pressure task [...] Lowe [place] documented as of this encounter Visit Diagnoses [...] documented as of this encounter Care Teams Field Scout Relationship Specialty Start Date End Date Tyesha Rogers MD [address] [place] [address] PCP - General Family Medicine 04/25/19 Hi Cortez, PharmD [address] [place] [address] Pharmacist Pharmacy 08/04/25 documented as of this encounter
--- OUTSIDE RECORDS SUMMARY | 2025-08-27 13:28 | XMS_ITS | Encounter Summary ---
Author Organization [email or web address] Address [address] [facility] 7t [place] [address] Care Team Providers Care Signal Helper Name Role Phone Tyesha Rogers MD Primary Care Provider [phone] Hi Cortez PharmD Unavailable [phone] Reason for Visit * Reason Onset Date Comments Med Refill 08/11/2025 Encounter Details Date Type Department Care Team (Late st Contact Info) Description 08/11/2025 Telephone [facility] 230 [place], [place] [phone] Tyesha Rogers MD 230 [place], [place] [phone] Med Refill Social History Tobacco Use Types Packs/Day Years [...] * Telephone Encounter - Katie York - 08/11/2025 9:46 AM EST TC from pt requesting medication refill. Medications needing refill : - traMADol (Ultram) 50 MG tablet To be sent to: - [facility] - [place], [place] - [address] [place] [address] documented in this encounter Plan of Treatment Upcoming Encounters Date Type Department Care Team ([facility] st Contact Info) Description 09/19/2025 10:30 AM EST Clinical Support [facility] [address] [place] [address] Alva Frias RN 505 [place] [address] 09/30/2025 10:45 AM EST Office Visit [facility] [address] [place] [address] Tyesha Rogers MD [address] [place] [address] 10/23/2025 1:00 PM EST Office Visit [facility] [address] [place] [address] Katharine Carbone, OD [address] [place] [address] documented as of this encounter Goals Goal [...] Care Plan Weekly blood pressure task No [place] corona HAND CIGAR MAKING SUPERVISOR Weekly blood pressure task Care Plan Weekly blood pressure task No [place] HAND CIGAR MAKING SUPERVISOR Patient has chronic kidney disease Care Plan Patient has chronic kidney disease No [place] HAND CIGAR MAKING SUPERVISOR Patient has chronic kidney disease Care Plan Patient has chronic kidney disease No [place] HAND CIGAR MAKING SUPERVISOR Weekly blood pressure task Care Plan Weekly [...] Weekly blood pressure task No Hi Cortez, ManasD Weekly blood pressure task Care Plan Weekly blood pressure task No Hi Cortez, PharmD Patient has chronic kidney disease Care Plan Patient has chronic kidney disease No Hi Cortez PharmD Patient has chronic kidney disease Care Plan Patient has chronic kidney disease No Hi Cortez, ManasD Weekly blood pressure task Care Plan Weekly [...] has chronic kidney disease No Neha Mondragon, RN Patient has chronic kidney disease Care Plan Patient has chronic kidney disease No Neha Mondragon RN Weekly blood pressure task Care Plan Weekly blood pressure task No Tamar Gilliland Weekly blood pressure task Care Plan Weekly blood pressure task No Tamar iGlliland Patient has chronic kidney disease Care Plan Patient has chronic kidney disease No Tamar Gilliland Patient has chronic kidney disease Care Plan Patient has chronic kidney disease No Tamar Gilliland Weekly blood pressure task Care Plan Weekly blood pressure task No Angel Sanchez RN Weekly blood pressure task Care Plan Weekly blood pressure task No Angel Sanchez, LUCIUS Patient has chronic kidney disease Care [...] Care Plan Patient has chronic kidney disease Velia Basilio Mayra documented as of this encounter Visit Diagnoses [...] 08/11/2025 Patient has chronic kidney disease 08/11/2025 Assessment Noted Time PHQ-9 Depression Total Score: 14 025 1:25 PM EDT documented as of this encounter Care Teams Signal Helper Relationship Specialty Start Date End Date Tyesha Rogers MD 230 [place] [address] PCP - General Family Medicine 04/25/19 Hi Cortez, ManasD 230 [place] [address] Pharmacist Pharmacy 08/04/25 documented as of this encounter
--- OUTSIDE RECORDS SUMMARY | 2025-08-27 13:28 | XMS_ITS | Encounter Summary ---
Author Organization [employer] Address [address] [facility] 7t [place] [address] Care Team Providers Care Audiology Assistant Name Role Phone Tyesha Rogers MD Primary Care Provider [phone] Hi Cortez PharmD Unavailable [phone] Encounter Details Date Type Department Care Team (Latest Contact Info) Description 08/27/2025 Travel Social History Tobacco Use Types Packs/Day [...] Description 09/19/2025 10:30 AM EST Clinical Support [facility] [address] [place] [address] Alva Frias RN 505 [place] [address] 09/30/2025 10:45 AM EST Office Visit [facility] 230 [place] [address] Tyesha Rogers MD 230 [place] [address] 10/23/2025 1:00 PM EST Office Visit [facility] [address] [place] [address] Katharine Carbone, ZAHIDA 230 [place] [address] documented as of this encounter Goals Goal [...] Plan Patient has chronic kidney disease No [place], Samantha, ANP Weekly blood pressure task Care Plan Weekly blood pressure task No [place] Marcy, [facility] Weekly blood pressure task Care Plan Weekly blood pressure task No [facility] Patient has chronic kidney disease Care Plan Patient has chronic kidney disease No [place] [facility] Patient has chronic kidney disease Care Plan Patient has chronic kidney disease No [place] [facility] Weekly blood pressure task Care Plan [...] Patient has chronic kidney disease No Colon Jaylen, Katie Patient has chronic kidney disease Care Plan Patient has chronic kidney disease No Colon Jaylen Katie Weekly blood pressure task Care Plan [...] Care Plan Weekly blood pressure task No BasilioBhavik bakersa Patient has chronic kidney disease Care Plan Patient has chronic kidney disease No BasilioBhaviksa Patient has chronic kidney disease Care Plan Patient has chronic kidney disease No BasilioBhaviksa Weekly blood pressure task Care Plan Weekly [...] Weekly blood pressure task No York, Aminata Weekly blood pressure task Care Plan Weekly blood pressure task No York, Aminata Patient has chronic kidney disease Care Plan Patient has chronic kidney disease No York, Aminata Patient has chronic kidney disease Care Plan Patient has chronic kidney disease No [place], Aminata Weekly blood pressure task Care Plan Weekly blood pressure task No York, Aminata Weekly blood pressure task Care Plan Weekly blood pressure task No [place], Aminata Patient has chronic kidney disease Care Plan Patient has chronic kidney disease No [place], Aminata Patient has chronic kidney disease Care Plan Patient has chronic kidney disease No Ashlyn Yorkz Weekly blood pressure task Care Plan Weekly blood pressure task No Calero, Umer Weekly blood pressure task Care Plan Weekly blood pressure task No [place] Umer Patient has chronic kidney disease Care Plan Patient has chronic kidney disease No Abdias Umer Patient has chronic kidney disease Care Plan Patient has chronic kidney disease No [place], Umer Weekly blood pressure task Care Plan Weekly blood pressure task No [place], Umer Weekly blood pressure task Care Plan Weekly blood pressure task No [place], Umer Patient has chronic kidney disease Care Plan Patient has chronic kidney disease No [place], Umer Patient has chronic kidney disease Care Plan Patient has chronic kidney disease No [place], Umer Weekly blood pressure task Care Plan [...] Plan Weekly blood pressure task No Tati Neri, Yehuda Weekly blood pressure task Care Plan Weekly [...] documented as of this encounter Care Teams Audiology Assistant Relationship Specialty Start Date End Date Tyesha Rogers MD [address] [place] [address] PCP - General Family Medicine 04/25/19 Hi Cortez, PharmD [address] [place] [address] Pharmacist Pharmacy 08/04/25 documented as of this encounter
--- OUTSIDE RECORDS SUMMARY | 2025-08-27 13:28 | XMS_ITS | Encounter Summary ---
Author Organization [employer] Address [address] [facility] 7t [place] [address] Care Team Providers Care Pharmacy Benefits Coordinator Name Role Phone Tyesha Rogers MD Primary Care Provider [phone] Hi Cortez PharmD Unavailable [phone] Encounter Details Date Type Department Care Team (Late st Contact Info) Description 12/10/2024 Orders Only [facility] 230 [place], [place] [phone] Tyesha Rogers MD 230 [place], [place] [phone] Neuropathy Social History Tobacco Use Types Packs/Day [...] Description 09/19/2025 10:30 AM EST Clinical Support [facility] [address] [place] [address] Alva Frias, LUCIUS 505 [place] [address] 09/30/2025 10:45 AM EST Office Visit [facility] [address] [place] [address] Tyesha Rogers MD 230 [place] [address] 10/23/2025 1:00 PM EST Office Visit [facility] 267 [place] [address] Katharine Carbone, OD 230 [place] [address] documented as of this encounter Visit Diagnoses Diagnosis Neuropathy Mononeuritis of unspecified site documented in this encounter Additional Health Concerns Assessment Noted Time PHQ-9 Depression Total Score: 15 025 11:52 AM EST documented as of this encounter Care Teams Pharmacy Benefits Coordinator Relationship Specialty Start Date End Date Tyesha Rogers MD 230 [place] [address] PCP - General Family Medicine 04/25/19 Hi Cortez, ManasD [address] [place] [address] Pharmacist Pharmacy 08/04/25 documented as of this encounter
--- OUTSIDE RECORDS SUMMARY | 2025-08-27 13:28 | XMS_ITS | Encounter Summary ---
Author Organization [employer] Address [address] [facility] 7t [place] [address] Care Team Providers Care Chief Operator Lock Tender Name Role Phone Tyesha Rogers MD Primary Care Provider [phone] Hi Cortez PharmD Unavailable Reason for Visit * Reason Onset Date Comments Paperwork/Forms 08/25/2025 Encounter Details Date Type Department Care Team ([facility] st Contact Info) Description 08/25/2025 Telephone [facility] 230 [place], [place] [phone] Tyesha Rogers MD 230 [place], [place] [phone] Paperwork/Forms Social History Tobacco Use Types Packs/Day Years [...] Telephone Encounter - Arianne Champagne RN - 08/25/2025 4:03 PM EST Received dental clearance paperwork for pt. Placed on covering provider's desk for review. documented in this encounter Plan of Treatment Upcoming Encounters Date Type Department Care Team (Late st Contact Info) Description 09/19/2025 10:30 AM EST Clinical Support [facility] [address] [place] [address] Alva Frias RN 505 [place] [address] 09/30/2025 10:45 AM EST Office Visit [facility] [address] [place] [address] Tyesha Rogers MD 230 [place] [address] 10/23/2025 1:00 PM EST Office Visit [facility] [address] [place] [address] Katharine Carbone OD 230 [place] [address] documented as of this encounter Goals Goal [...] Care Plan Weekly blood pressure task No Marcy Hatch FNP Weekly blood pressure task Care Plan Weekly blood pressure task No Marcy Hatch FNP Patient has chronic kidney disease Care Plan Patient has chronic kidney disease No HoldenMarcy corona FNP Patient has chronic kidney disease Care Plan Patient has chronic kidney disease No Marcy Hatch FNP Weekly blood pressure task Care Plan [...] blood pressure task No Hi Cortez PharmMarvin Patient has chronic [...] chronic kidney disease No Neha Mondragon, LUCIUS Weekly blood pressure [...] has chronic kidney disease No Angel Sanchez, LUCIUS Patient has chronic [...] chronic kidney disease No Colon Jaylen Katie Patient has chronic kidney disease Care [...] Plan Weekly blood pressure task No BasilioMayra Patient has chronic kidney disease Care Plan Patient has chronic kidney disease No Mayra Basilio Patient has chronic kidney disease Care Plan Patient has chronic kidney disease No BasilioMayra baker Weekly blood pressure task [...] Plan Weekly blood pressure task No Arianne Champagne, RN Patient has chronic kidney disease Care Plan Patient has chronic kidney disease No Arianne Champagne RN Patient has chronic kidney disease Care Plan Patient has chronic kidney disease No Arianne Champagne RN documented as of this encounter Visit [...] documented as of this encounter Care Teams Chief Operator Lock Tender Relationship Specialty Start Date End Date Tyesha Rogers MD 230 [place] [address] PCP - General Family Medicine 04/25/19 Hi Cortez, ManasD 230 [place] [address] Pharmacist Pharmacy 08/04/25 documented as of this encounter
--- OUTSIDE RECORDS SUMMARY | 2025-08-27 13:28 | XMS_ITS | Encounter Summary ---
Author Organization [employer] Address [address] [facility] 7t [place] [address] Care Team Providers Care Literacy Specialist Name Role Phone Tyesha Rogers MD Primary Care Provider [phone] iH Cortez PharmD Unavailable [phone] Encounter Details Date Type Department Care Team ([facility] st Contact Info) Description 07/17/2023 Orders Only [facility] 230 [place], [place] [phone] Kinjal Ch MD 230 [place], [place] [phone] Social History Tobacco Use Types Packs/Day Years [...] is your housing situation today? I have [place] 07/05/[address] you li [...] 10:30 AM EST Clinical Support [facility] [address] [place] [address] Alva Frias, LUCIUS 505 [place] [address] 09/30/2025 10:45 AM EST Office Visit [facility] [address] [place] [address] Tyesha Rogers MD 230 [place] [address] 10/23/2025 1:00 PM EST Office Visit [facility] 267 [place] [address] Raf, Katharine, OD 230 [place] [address] documented as of this encounter Visit Diagnoses Not on filedocumented in this encounter Additional Health Concerns Assessment Noted Time PHQ-9 Depression Total Score: 21 023 9:42 AM EDT documented as of this encounter Care Teams Literacy Specialist Relationship Specialty Start Date End Date Tyesha Rogers MD [address] [place] [address] PCP - General Family Medicine 04/25/19 Hi Cortez, PharmD [address] [place] [address] Pharmacist Pharmacy 08/04/25 documented as of this encounter
--- OUTSIDE RECORDS SUMMARY | 2025-08-27 13:28 | XMS_ITS | Encounter Summary ---
Author Organization [employer] Address [address] [facility] 7t [place] [address] Care Team Providers Care Transportation Aid Name Role Phone Tyesha Rogers MD Primary Care Provider [phone] Hi Cortez PharmD Unavailable [phone] Encounter Details Date Type Department Care Team (Late st Contact Info) Description 02/21/2025 Orders Only [facility] 230 [place], [place] [phone] Tyesha Rogers MD 230 [place], [place] [phone] Social History Tobacco Use Types Packs/Day Years [...] Description 09/19/2025 10:30 AM EST Clinical Support [facility] [address] [place] [address] Alva Frias, LUCIUS 505 [place] [address] 09/30/2025 10:45 AM EST Office Visit [facility] [address] [place] [address] Tyesha Rogers MD 230 [place] [address] 10/23/2025 1:00 PM EST Office Visit [facility] [address] [place] [address] Katharine Carbone, OD 230 [place] [address] documented as of this encounter Visit Diagnoses Not on filedocumented in this encounter Additional Health Concerns Assessment Noted Time PHQ-9 Depression Total Score: 14 025 1:25 PM EDT documented as of this encounter Care Teams Transportation Aid Relationship Specialty Start Date End Date Tyesha Rogers MD [address] [place] [address] PCP - General Family Medicine 04/25/19 Hi Cortez, ManasD [address] [place] [address] Pharmacist Pharmacy 08/04/25 documented as of this encounter
--- OUTSIDE RECORDS SUMMARY | 2025-08-27 13:28 | XMS_ITS | Encounter Summary ---
Author Organization [employer] Address [address] [facility] 7t [place] [address] Care Team Providers Care Skeins Yarn Examiner Name Role Phone Tyesha Rogers MD Primary Care Provider [phone] Hi Cortez PharmD Unavailable [phone] Reason for Visit * Reason Onset Date Comments Med Refill 08/25/2025 Encounter Details Date Type Department Care Team (Late st Contact Info) Description 08/25/2025 Refill [facility] 230 [place], [place] [phone] Tyesha Rogers MD 230 [place], [place] [phone] Epigastric pain; Posttraumatic stress disorder Social History Tobacco Use Types Packs/Day Years [...] encounter Miscellaneous Notes * Telephone Encounter - Joslyn Moctezuma LPN - 08/25/2025 10:25 AM EST Electric Container Tester checked on 08.25.25 * Telephone Encounter - Umer Calero - 08/25/2025 10:17 AM EST TC from pt requesting medication refill. Medications needing refill : prazosin (Minipress) 1 MG capsule pregabalin (Lyrica) 25 MG capsule guanFACINE (Intuniv) 2 mg 24 hr tablet To be sent to: [facility] - [place], [place] - [address] [facility] documented in this encounter Plan of Treatment Upcoming Encounters Date Type Department Care Team (Late st Contact Info) Description 09/19/2025 10:30 AM EST Clinical Support [facility] 230 [place] [address] Alva Frias RN 505 [place], [place] [phone] 09/30/2025 10:45 AM EST Office Visit [facility] 230 [place] [address] Tyesha Rogers MD 230 [place] [address] 10/23/2025 1:00 PM EST Office Visit [facility] [address] [place] [address] Katharine Carbone, OD 230 [place] [address] documented as of this encounter Goals Goal [...] Care Plan Weekly blood pressure task No [place] Park[place] FNP Weekly blood pressure task Care Plan Weekly blood pressure task No [place] Park[place]cy [facility] Patient has chronic kidney disease Care Plan Patient has chronic kidney disease No [place] ParkMarcy [facility] Patient has chronic kidney disease Care Plan Patient has chronic kidney disease No [place] Park[place]cy FNP Weekly blood pressure task Care Plan [...] Plan Patient has chronic kidney disease No Aimnata [place] Weekly blood pressure task Care Plan Weekly blood pressure task No Aminata [place] Weekly blood pressure task Care Plan Weekly blood pressure task No Aminata [place] Patient has chronic kidney disease Care Plan Patient has chronic kidney disease No Aminata [place] Patient has chronic kidney disease Care Plan Patient has chronic kidney disease No mAinata [place] Weekly blood pressure task Care Plan [...] Diagnoses Diagnosis Epigastric pain Abdominal pain, epigastric Posttraumatic stress disorder documented in this encounter Additional Health Concerns [...] documented as of this encounter Care Teams Skeins Yarn Examiner Relationship Specialty Start Date End Date Tyesha Rogers MD [address] [place] [address] PCP - General Family Medicine 04/25/19 Hi Cortez, PharmD 230 [place] [address] Pharmacist Pharmacy 08/04/25 documented as of this encounter
--- OUTSIDE RECORDS SUMMARY | 2025-08-27 13:28 | XMS_ITS ---
Author Organization [employer] Address [address] [place] [address] 7 [place] [address] Care Team Providers Care Keyboard Instrument Repairer Name Role Phone Tyesha Rogers MD Primary Care Provider [phone] Hi Cortez PharmD Unavailable [phone] CM Complex Status:Enrolled (Active) Start date:12/11/2024 Enrollment date:12/31/2024 Enrollment reason:ADT Feed Overview ED- Pt went to [facility] on 12/10/24. Case Team Name Relationship Phone Angel Sanchez RN(Responsible Staff) Jac gomez [phone] Continued Care and Services Coordination
--- OUTSIDE RECORDS SUMMARY | 2025-08-27 13:28 | XMS_ITS | Encounter Summary ---
Author Organization [employer] Address [address] [facility] 7t [place] [address] Care Team Providers Care Principal Clerk Name Role Phone Tyesha Rogers MD Primary Care Provider [phone] Hi Cortez PharmD Unavailable [phone] Reason for Visit * Reason Comments Med Refill Encounter Details Date Type Department Care Team (Late st Contact Info) Description 07/15/2025 Refill [facility] 230 [place], [place] [phone] Tyesha Rogers MD 230 [place], [place] [phone] Neuropathy Social History Tobacco Use Types Packs/Day [...] EST Clinical Support [facility] [address] [place] [address] Alva Frias RN 505 [place] [address] 09/30/2025 10:45 AM EST Office Visit [facility] 230 [place] [address] Tyesha Rogers MD 230 [place] [address] 10/23/2025 1:00 PM EST Office Visit [facility] 267 [place] [address] Katharine Carbone, ZAHIDA 230 [place] [address] documented as of this encounter Visit Diagnoses Diagnosis Neuropathy Mononeuritis of unspecified site documented in this encounter Additional Health Concerns Assessment Noted Time PHQ-9 Depression Total Score: 14 025 1:25 PM EDT documented as of this encounter Care Teams Principal Clerk Relationship Specialty Start Date End Date Tyesha Rogers MD 230 [place] [address] PCP - General Family Medicine 04/25/19 Hi Cortez, PharmD 230 [place] [address] Pharmacist Pharmacy 08/04/25 documented as of this encounter
--- OUTSIDE RECORDS SUMMARY | 2025-08-27 13:28 | XMS_ITS | Encounter Summary ---
Author Organization [employer] Address [address] [place] [address] 7 [place] [address] Care Team Providers Care Shaker Repairer Name Role Phone Tyesha Rogers MD Primary Care Provider [phone] Hi Cortez PharmD Unavailable [phone] Encounter Details Date Type Department Care Team ([facility] st Contact Info) Description 01/28/2025 Telephone [facility] 230 [place], [place] [phone] Mira Vanegas PharmD 230 [place], [place] [phone] Social History Tobacco Use Types Packs/Day Years [...] Description 09/19/2025 10:30 AM EST Clinical Support [facility] [address] [place] [address] Alva Frias, LUCIUS 505 [place] [address] 09/30/2025 10:45 AM EST Office Visit [facility] [address] [place] [address] Tyesha Rogers MD 230 [place] [address] 10/23/2025 1:00 PM EST Office Visit [facility] [address] [place] [address] Katharine Carbone, OD 230 [place] [address] documented as of this encounter Visit Diagnoses Not on filedocumented in this encounter Additional Health Concerns Assessment Noted Time PHQ-9 Depression Total Score: 14 025 1:25 PM EDT documented as of this encounter Care Teams Shaker Repairer Relationship Specialty Start Date End Date Tyesha Rogers MD [address] [place] [address] PCP - General Family Medicine 04/25/19 Hi Cortez, ManasD [address] [place] [address] Pharmacist Pharmacy 08/04/25 documented as of this encounter
--- OUTSIDE RECORDS SUMMARY | 2025-08-27 13:28 | XMS_ITS | Encounter Summary ---
Author Organization [employer] Address [address] [place] [address] 7t [place] [address] Care Team Providers Care Site Controller Name Role Phone Tyesha Rogers MD Primary Care Provider [phone] Hi Cortez PharmD Unavailable Encounter Details Date Type Department Care Team ([facility] Contact Info) Description 08/14/2025 Orders Only [facility] 230 [place] [address] Provider, MD Jhony Social History Tobacco Use [...] 10:30 AM EST Clinical Support [facility] MEDICINE [address] [place] [address] Alva Frias RN 505 [place] [address] 09/30/2025 10:45 AM EST Office Visit [facility] MEDICINE [address] [place] [address] Tyesha Rogers MD 230 [place] [address] 10/23/2025 1:00 PM EST Office Visit [facility] OPTOMETRY [address] [place] [address] Katharine Carbone OD 230 [place] [address] documented as of this encounter Goals Goal [...] Care Plan Weekly blood pressure task No [place], [facility] Weekly blood pressure task Care Plan Weekly blood pressure task No [place], [facility] Patient has chronic kidney disease Care Plan Patient has chronic kidney disease No [place], [facility] Patient has chronic kidney disease Care Plan Patient has chronic kidney disease No [place]cy [facility] Weekly blood pressure task Care Plan [...] Plan Weekly blood pressure task No Felicia Cahs [place] Patient has chronic kidney disease Care [...] chronic kidney disease No Angel Sanchez, LUCIUS Weekly blood pressure [...] Plan Weekly blood pressure task No [place] Jaylen Katie Patient has chronic [...] has chronic kidney disease No Mayra Basilio documented as of this encounter Procedures Procedure Name Priority Date/Time Associated Diagnosis Comments CT ABDOMEN PELVIS WO CONTRAST Routine 08/13/2025 documented in this encounter Results * CT Abdomen Pelvis w/o Contrast (08/13/2025) Anatomical Region Laterality Modality Body, Pelvis, Abdomen [...] 08/13/2025 Patient has chronic kidney disease 08/13/2025 Assessment Noted Time PHQ-9 Depression Total Score: 14 12/31/2 025 1:25 PM EDT documented as of this encounter Care Teams Site Controller Relationship Specialty Start Date End Date Tyesha Rogers MD 230 [place] [address] PCP - General Family Medicine 04/25/19 Hi Cortez, PharmD [address] [place] [address] Pharmacist Pharmacy 08/04/25 documented as of this encounter
--- OUTSIDE RECORDS SUMMARY | 2025-08-27 13:28 | XMS_ITS | Encounter Summary ---
Author Organization [employer] Address [address] [place] [address] 7t [place] [address] Care Team Providers Care Scrapper Name Role Phone Tyesha Rogers MD Primary Care Provider [phone] Hi Cortez PharmD Unavailable [phone] Reason for Visit * Reason Comments Med Refill Encounter Details Date Type Department Care Team (Late st Contact Info) Description 01/19/2025 Refill [facility] MEDICINE [address] [place], [place] [phone] Tyesha Rogers MD 230 [place], [place] [phone] Social History Tobacco Use Types Packs/Day Years [...] Description 09/19/2025 10:30 AM EST Clinical Support [facility] MEDICINE [address] [place] [address] Alav Frias, LUCIUS 505 [place] [address] 09/30/2025 10:45 AM EST Office Visit [facility] MEDICINE [address] [place] [address] Tyesha Rogers MD 230 [place] [address] 10/23/2025 1:00 PM EST Office Visit [facility] OPTOMETRY 267 [place] [address] Katharine Carbone, OD 230 [place] [address] documented as of this encounter Visit Diagnoses Not on filedocumented in this encounter Additional Health Concerns Assessment Noted Time PHQ-9 Depression Total Score: 14 025 1:25 PM EDT documented as of this encounter Care Teams Scrapper Relationship Specialty Start Date End Date Tyesha Rogers MD 230 [place] [address] PCP - General Family Medicine 04/25/19 Hi Cortez, ManasD 230 [place] [address] Pharmacist Pharmacy 08/04/25 documented as of this encounter
--- OUTSIDE RECORDS SUMMARY | 2025-08-27 13:29 | XMS_ITS ---
Author Organization [employer] Address [address] [place] [address] 7 [place] [address] Care Team Providers Care Fifth Hand Name Role Phone Tyesha Rogers MD Primary Care Provider [phone] Hi Cortez PharmD Unavailable [phone] [facility] Status:Enrolled (Active) Start date:12/11/2024 Enrollment date:12/11/2024 Enrollment reason:ADT Feed Overview ED- Pt went to [facility] ED on 12/10/24. Case Team Name Relationship Phone Aminata York(Responsible Staff) Continued Care and Services Coordination
--- OUTSIDE RECORDS SUMMARY | 2025-08-27 13:29 | XMS_ITS | Encounter Summary ---
Author Organization [employer] Address [address] [facility] 7 [place] [address] Care Team Providers Care Senior Production Planner Name Role Phone Tyesha Rogers MD Primary Care Provider [phone] Hi Cortez PharmD Unavailable [phone] Reason for Visit * Reason Onset Date Comments Appointment Request 01/13/2025 Encounter Details Date Type Department Care Team (Late st Contact Info) Description 01/13/2025 Telephone [facility] MEDICINE 230 [place], [place] [phone] Tyesha Rogers MD 230 [place], [place] [phone] Appointment Request Social History Tobacco Use Types [...] was cancelled to be rescheduled due to sports writer not finding availability please return call to pt to be scheduled. Callback number [phone] Appointment type - Follow Up Notes - F/U allergic reaction. Sent to ED at last appt. Provider - Tyesha Rogers [phone] documented in this encounter Plan of Treatment Upcoming Encounters Date Type Department Care Team ([facility] st Contact Info) Description 09/19/2025 10:30 AM EST Clinical Support [facility] MEDICINE [address] [place] [address] Alva Frias RN 505 [place] [address] 09/30/2025 10:45 AM EST Office Visit [address] [address] Tyesha Rogers MD [address] [place] [address] 10/23/2025 1:00 PM EST Office Visit [facility] OPTOMETRY [address] [place], [place] [phone] Katharine Carbone, OD 230 [place] [address] documented as of this encounter Visit Diagnoses Not on filedocumented in this encounter Additional Health Concerns Assessment Noted Time PHQ-9 Depression Total Score: 14 025 1:25 PM EDT documented as of this encounter Care Teams Senior Production Planner Relationship Specialty Start Date End Date Tyesha Rogers MD 230 [place] [address] PCP - General Family Medicine 04/25/19 Hi Cortez, PharmD 230 [place], [place] [phone] Pharmacist Pharmacy 08/04/25 documented as of this encounter
--- OUTSIDE RECORDS SUMMARY | 2025-08-27 13:30 | XMS_ITS | Encounter Summary ---
Author Organization [employer] Address [address] [place] [address] 7t [place] [address] Care Team Providers Care Cad Draftsman Name Role Phone Tyesha Rogers MD Primary Care Provider [phone] Hi Cortez PharmD Unavailable [phone] Encounter Details Date Type Department Care Team (Late st Contact Info) Description 08/08/[address] [address] ProviderJhony MD Social History Tobacco Use Types [...] Department Care Team (Late Contact Info) Description 09/19/2025 10:30 AM EST Clinical Support [address] [address] Alva Frias RN 505 [place] [address] 09/30/2025 10:45 AM EST Office Visit [address] [address] Tyesha Rogers MD [address] [place] [address] 10/23/2025 1:00 PM EST Office Visit [facility] OPTOMETRY [address] [place] [address] Katharine Carbone, OD 230 [place] [address] documented as of this encounter Visit Diagnoses Not on filedocumented in this encounter Care Teams Cad Draftsman Relationship Specialty Start Date End Date Tyesha Rogers MD 230 [place] [address] PCP - General Family Medicine 04/25/19 Hi Cortez, PharmD [address] [place] [address] [phone] Pharmacist Pharmacy 08/04/25 documented as of this encounter
--- OUTSIDE RECORDS SUMMARY | 2025-08-27 13:30 | XMS_ITS | Encounter Summary ---
Author Organization [employer] Address [address] [place] [address] 7t [place] [address] Care Team Providers Care Fine Arts Packer Name Role Phone Tyesha Rogers MD Primary Care Provider [phone] Hi Cortez PharmD Unavailable [phone] Encounter Details Date Type Department Care Team (Late st Contact Info) Description 08/30/2022 Abstract [facility] MEDICINE 230 [place], [place] [phone] Tyesha Rogers MD 230 [place], [place] [phone] Social History Tobacco Use Types Packs/Day Years [...] Description 09/19/2025 10:30 AM EST Clinical Support [facility] MEDICINE [address] [place] [address] Alva Frias RN 505 [place] [address] 09/30/2025 10:45 AM EST Office Visit [facility] MEDICINE 230 [place] [address] Tyesha Rogers MD 230 [place] [address] 10/23/2025 1:00 PM EST Office Visit [facility] OPTOMETRY 267 [place] [address] Raf, Katharine, OD 230 [place] [address] documented as of this encounter Visit Diagnoses Not on filedocumented in this encounter Additional Health Concerns Assessment Noted Time PHQ-9 Depression Total Score: 9 08/18/20 22 11:40 AM EST documented as of this encounter Care Teams Fine Arts Packer Relationship Specialty Start Date End Date Tyesha Rogers MD [address] [place] [address] PCP - General Family Medicine 04/25/19 Hi Cortez, ManasD [address] [place] [address] Pharmacist Pharmacy 08/04/25 documented as of this encounter
--- OUTSIDE RECORDS SUMMARY | 2025-08-27 13:30 | XMS_ITS | Encounter Summary ---
Author Organization [employer] Address [address] [place] [address] 7 [place] [address] Care Team Providers Care Radio Rigger Name Role Phone Tyesha Rogers MD Primary Care Provider Hi Cortez PharmD Unavailable [phone] Encounter Details Date Type Department Care Team (Late st Contact Info) Description 08/11/2022 Orders Only [facility] [address] [place] [address] Loren Oliva MD [address] [place] [address] Social History Tobacco Use Types Packs/Day Years [...] Description 09/19/2025 10:30 AM EST Clinical Support [facility] MEDICINE [address] [place] [address] Alva Frias RN 505 [place] [address] 09/30/2025 10:45 AM EST Office Visit [address] [address] Tyesha Rogers MD 230 [place], [place] [phone] 10/23/2025 1:00 PM EST Office Visit [facility] OPTOMETRY [address] [place], [place] [phone] Raf Katharine, OD 230 [place], [place] [phone] documented as of this encounter Visit Diagnoses Not on filedocumented in this encounter Care Teams Radio Rigger Relationship Specialty Start Date End Date Tyesha Rogers MD [address] [place] [address] [phone] PCP - General Family Medicine 04/25/19 Hi Cortez, PharmD [address] [place] [address] [phone] Pharmacist Pharmacy 08/04/25 documented as of this encounter
--- OUTSIDE RECORDS SUMMARY | 2025-08-27 13:30 | XMS_ITS | Encounter Summary ---
Author Organization [employer] Address [address] [place] [address] 7 [place] [address] Care Team Providers Care Seed Trucker Name Role Phone Tyesha Rogers MD Primary Care Provider [phone] Hi Cortez PharmD Unavailable [phone] Reason for Referral * Consultation (Routine) - Closed Specialty Diagnoses / Procedures Referred By Contangel ro Referred To Contact Pharmacy Diagnoses SBO (small bowel obstruction) (HCC) Tati Neri, PharmD 230 [place] [address] Phone: tel: fax: Referral ID Status Reason Start Date Expiration Date V isits Requested Visits Authorized [id number] Closed Continuity of Care 12/07/2023 12/06/2024 1 1 Encounter Details Date Type Department Care Team (Late st Contact Info) Description 12/07/2023 Orders Only [facility] MEDICINE 230 [place] [address] Tati Neri, PharmD 230 [place], [place] [phone] SBO (small bowel obstruction) (CMS/HCC) (Primary Dx) [...] Description 09/19/2025 10:30 AM EST Clinical Support [facility] MEDICINE [address] [place] [address] Alva Frias RN 505 [place] [address] 09/30/2025 10:45 AM EST Office Visit [facility] MEDICINE [address] [place] [address] Tyesha Rogers MD [address] [place] [address] 10/23/2025 1:00 PM EST Office Visit [facility] OPTOMETRY [address] [place] [address] Katharine Carbone, OD 230 [place] [address] Scheduled Referrals Name Type Priority Associated Diagnoses [...] documented as of this encounter Care Teams Seed Trucker Relationship Specialty Start Date End Date Tyesha Rogers MD [address] [place] [address] PCP - General Family Medicine 04/25/19 Hi Cortez, PharmD [address] [place] [address] Pharmacist Pharmacy 08/04/25 documented as of this encounter
--- OUTSIDE RECORDS SUMMARY | 2025-08-27 13:30 | XMS_ITS | Encounter Summary ---
Author Organization [employer] Address [address] [facility] 7t [place] [address] Care Team Providers Care Electrical Timing Device Calibrator Name Role Phone Tyesha Rogers MD Primary Care Provider [phone] Hi Cortez PharmD Unavailable [phone] Reason for Visit * Reason Onset Date Comments Order(s) 09/06/2023 Encounter Details Date Type Department Care Team ([facility] st Contact Info) Description 09/06/2023 Telephone [facility] MEDICINE 230 [place], [place] [phone] Tyesha Rogers MD 230 [place], [place] [phone] Order(s) Social History Tobacco Use Types Packs/Day [...] 9:17 AM EST Please disregard previous message, Lockstitch Sleeve Maker faxed orders. * Telephone Encounter - Silvino Gilliland - 09/06/2023 2:15 PM EST Tc clement Pike working with [facility] requesting order for diagnostic mammogram and ultrasound bi lateral 09/08/23 at 1:00 pm. If any questions please contact Glendy at [phone] documented in this encounter Plan of Treatment Upcoming Encounters Date Type Department Care Team (Late st Contact Info) Description 09/19/2025 10:30 AM EST Clinical Support [facility] MEDICINE [address] [place] [address] Alva Frias, LUCIUS 505 [place] [address] 09/30/2025 10:45 AM EST Office Visit [facility] MEDICINE 230 [place], [place] [phone] Tyesha Rogers MD 230 [place], [place] [phone] 10/23/2025 1:00 PM EST Office Visit [facility] OPTOMETRY [address] [place], [place] [phone] Raf, Katharine, OD 230 [place] [address] documented as of this encounter Visit Diagnoses Not on filedocumented in this encounter Additional Health Concerns Assessment Noted Time PHQ-9 Depression Total Score: 21 023 9:42 AM EDT documented as of this encounter Care Teams Electrical Timing Device Calibrator Relationship Specialty Start Date End Date Tyesha Rogers MD 230 [place], [place] [phone] PCP - General Family Medicine 04/25/19 Hi Cortez, PharmD [address] [place] [address] Pharmacist Pharmacy 08/04/25 documented as of this encounter
--- OUTSIDE RECORDS SUMMARY | 2025-08-27 13:30 | XMS_ITS | Encounter Summary ---
Author Organization [employer] Address [address] [facility] 7 [place] [address] Care Team Providers Care Hebrew Professor Name Role Phone Tyesha Rogers MD Primary Care Provider [phone] Hi Cortez PharmD Unavailable [phone] Reason for Visit * Reason Comments Med Refill Encounter Details Date Type Department Care Team (Late st Contact Info) Description 11/29/2023 Refill [facility] MEDICINE 230 [place], [place] [phone] Tyesha Rogers MD 230 [place], [place] [phone] Social History Tobacco Use Types Packs/Day Years [...] Description 09/19/2025 10:30 AM EST Clinical Support [facility] MEDICINE [address] [place] [address] Alva Frias, LUCIUS 505 [place] [address] 09/30/2025 10:45 AM EST Office Visit [facility] MEDICINE [address] [place] [address] Tyesha Rogers MD 230 [place] [address] 10/23/2025 1:00 PM EST Office Visit [facility] OPTOMETRY 267 [place] [address] RafKatharine fu, OD 230 [place] [address] documented as of this encounter Visit Diagnoses Not on filedocumented in this encounter Additional Health Concerns Assessment Noted Time PHQ-9 Depression Total Score: 21 023 9:42 AM EDT documented as of this encounter Care Teams Hebrew Professor Relationship Specialty Start Date End Date Tyesha Rogers MD [address] [place] [address] PCP - General Family Medicine 04/25/19 Hi Cortez, PharmD 230 [place] [address] Pharmacist Pharmacy 08/04/25 documented as of this encounter
--- OUTSIDE RECORDS SUMMARY | 2025-08-27 13:30 | XMS_ITS | Encounter Summary ---
Author Organization [employer] Address [address] [facility] 7 [place] [address] Care Team Providers Care Test Cell Technician Name Role Phone Tyesha Rogers MD Primary Care Provider [phone] Hi Cortez PharmD Unavailable [phone] Reason for Visit * Reason Onset Date Comments Nurse Triage 08/30/2023 Encounter Details Date Type Department Care Team (Late st Contact Info) Description 08/30/2023 Telephone [facility] MEDICINE 230 [place], [place] [phone] Tyesha Rogers MD 230 [place], [place] [phone] Nurse Triage Social History Tobacco Use Types [...] Call to Emily Tucker, reports currently with CERTIFICATION ENGINEER [facility]. Pt reported CP and elevated BS. 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 Sent to team for ER status check [...] and stated is on her way to [facility]. * Telephone Encounter - Blanca Rashid - [...] Description 09/19/2025 10:30 AM EST Clinical Support [facility] MEDICINE [address] [place] [address] Alva Frias, LUCIUS 505 [place] [address] 09/30/2025 10:45 AM EST Office Visit [facility] MEDICINE 230 [place] [address] Tyesha Rogers MD 230 [place] [address] 10/23/2025 1:00 PM EST Office Visit [facility] OPTOMETRY 267 [place] [address] Raf, Katharine, OD 230 [place] [address] documented as of this encounter Visit Diagnoses Not on filedocumented in this encounter Additional Health Concerns Assessment Noted Time PHQ-9 Depression Total Score: 21 023 9:42 AM EDT documented as of this encounter Care Teams Test Cell Technician Relationship Specialty Start Date End Date Tyesha Rogers MD [address] [place] [address] PCP - General Family Medicine 04/25/19 Hi Cortez, PharmD [address] [place] [address] Pharmacist Pharmacy 08/04/25 documented as of this encounter
--- OUTSIDE RECORDS SUMMARY | 2025-08-27 13:31 | XMS_ITS | Encounter Summary ---
Author Organization [employer] Address [address] [facility] 7 [place] [address] Care Team Providers Care Paradi Operator Name Role Phone Tyesha Rogers MD Primary Care Provider [phone] Hi Cortez PharmD Unavailable [phone] Reason for Visit * Reason Onset Date Comments Nurse Triage 11/01/2023 Encounter Details Date Type Department Care Team (Late st Contact Info) Description 11/01/2023 Telephone [facility] MEDICINE 230 [place], [place] [phone] Tyesha Rogers MD 230 [place], [place] [phone] Nurse Triage Social History Tobacco Use Types [...] disposition at this time and [facility] time of [facility]F [...] Description 09/19/2025 10:30 AM EST Clinical Support [facility] MEDICINE [address] [place] [address] Alva Frias RN 505 [place] [address] 09/30/2025 10:45 AM EST Office Visit [facility] MEDIC[facility] 230 [place] [address] Tyesha Rogers MD 230 [place] [address] 10/23/2025 1:00 PM EST Office Visit [facility] OPTOMETRY 267 [place] [address] Katharine Carbone OD 230 [place] [address] documented as of this encounter Visit Diagnoses Not on filedocumented in this encounter Additional Health Concerns Assessment Noted Time PHQ-9 Depression Total Score: 21 023 9:42 AM EDT documented as of this encounter Care Teams Paradi Operator Relationship Specialty Start Date End Date Tyesha Rogers MD 230 [place] [address] PCP - General Family Medicine 04/25/19 Hi Cortez, ManasD 230 [place] [address] Pharmacist Pharmacy 08/04/25 documented as of this encounter
--- OUTSIDE RECORDS SUMMARY | 2025-08-27 13:32 | XMS_ITS | Encounter Summary ---
Author Organization [employer] Address [address] [place] [address] 7t [place] [address] Care Team Providers Care Digital Marketing Intern Name Role Phone Tyesha Rogers MD Primary Care Provider Hi Cortez PharmD Unavailable [phone] Encounter Details Date Type Department Care Team ([facility] Contact Info) Description 06/27/2025 Orders Only [facility] 230 [place] [address] Provider, MD Jhony Social History Tobacco Use [...] Description 09/19/2025 10:30 AM EST Clinical Support [facility] MEDICINE [address] [place] [address] Alva Frais RN 505 [place] [address] 09/30/2025 10:45 AM EST Office Visit [facility] MEDICINE 230 [place] [address] Tyesha Rogers MD 230 [place] [address] 10/23/2025 1:00 PM EST Office Visit [facility] OPTOMETRY 267 [place] [address] Katharine Carbone, OD 230 [place] [address] documented as of this encounter Procedures Procedure [...] documented as of this encounter Care Teams Digital Marketing Intern Relationship Specialty Start Date End Date Tyesha Rogers MD 230 [place] [address] PCP - General Family Medicine 04/25/19 Hi Cortez, ManasD 230 [place] [address] Pharmacist Pharmacy 08/04/25 documented as of this encounter
--- OUTSIDE RECORDS SUMMARY | 2025-08-27 13:32 | XMS_ITS | Encounter Summary ---
Author Organization [employer] Address [address] [facility] 7 [place] [address] Care Team Providers Care Drapery And Upholstery Estimator Name Role Phone Tyesha Rogers MD Primary Care Provider [phone] Hi Cortez PharmD Unavailable [phone] Reason for Visit * Reason Onset Date Comments fyi 07/07/2025 Encounter Details Date Type Department Care Team (Late st Contact Info) Description 07/07/2025 Telephone [facility] MEDICINE 230 [place], [place] [phone] Tyesha Rogers MD 230 [place], [place] [phone] fyi Social History Tobacco Use Types Packs/Day [...] does not from who Contact pt at [phone] documented in this encounter Plan of Treatment Upcoming Encounters Date Type Department Care Team (Late st Contact Info) Description 09/19/2025 10:30 AM EST Clinical Support [facility] MEDICINE [address] [place] [address] Alva Frias RN 505 [place] [address] 09/30/2025 10:45 AM EST Office Visit [facility] MEDICINE [address] [place] [address] Tyesha Rogers MD 230 [place] [address] 10/23/2025 1:00 PM EST Office Visit [facility] OPTOMETRY [address] [place] [address] [phone] Katharine Carbone, OD 230 [place] [address] documented as of this encounter Visit Diagnoses Not on filedocumented in this encounter Additional Health Concerns Assessment Noted Time PHQ-9 Depression Total Score: 14 025 1:25 PM EDT documented as of this encounter Care Teams Drapery And Upholstery Estimator Relationship Specialty Start Date End Date Tyesha Rogers MD 230 [place] [address] PCP - General Family Medicine 04/25/19 Hi Cortez, ManasD [address] [place] [address] Pharmacist Pharmacy 08/04/25 documented as of this encounter
--- OUTSIDE RECORDS SUMMARY | 2025-08-27 13:32 | XMS_ITS | Encounter Summary ---
Author Organization [employer] Address [address] [facility] 7t [place] [address] Care Team Providers Care Bale Sewer Name Role Phone Tyesha Rogers MD Primary Care Provider [phone] Hi Cortez PharmD Unavailable [phone] Encounter Details Date Type Department Care Team (Late st Contact Info) Description 10/10/2022 Orders Only [facility] MEDICINE [address] [place], [place] [phone] Tyesha Rogers MD [address] [place], [place] [phone] Hypothyroidism, unspecified type (Primary Dx); Elevated TSH; [...] Description 09/19/2025 10:30 AM EST Clinical Support [facility] MEDICINE [address] [place] [address] Alva Frias, LUCIUS [address] [place] [address] 09/30/2025 10:45 AM EST Office Visit [facility] MEDICINE [address] [place] [address] Tyesha Rogers MD [address] [place] [address] 10/23/2025 1:00 PM EST Office Visit [facility] OPTOMETRY [address] [place] [address] Katharine Carbone, OD [address] [place] [address] Scheduled Orders Name Type Priority Associated Diagnoses [...] documented as of this encounter Care Teams Bale Sewer Relationship Specialty Start Date End Date Tyesha Rogers MD [address] [place] [phone] PCP - General Family Medicine 04/25/19 Hi Cortez, ManasD [address] [place] [id number] Pharmacist Pharmacy 08/04/25 documented as of this encounter
--- OUTSIDE RECORDS SUMMARY | 2025-08-27 13:32 | XMS_ITS | Encounter Summary ---
Author Organization [employer] Address 75 [facility] 7t [place] [address] Care Team Providers Care Concessions Manager Name Role Phone Tyesha Rogers MD Primary Care Provider [phone] Hi Cortez PharmD Unavailable [phone] Encounter Details Date Type Department Care Team ([facility] st Contact Info) Description 11/01/[address] [facility] MEDICINE [address] [place], [place] [phone] Tyesha Rogers MD [address] [place], [place] [phone] Social History Tobacco Use Types Packs/Day Years [...] Description 09/19/2025 10:30 AM EST Clinical Support [facility] MEDICINE [address] [place] [phone] Alva Frias, LUCIUS [address] [place] [address] 09/30/2025 10:45 AM EST Office Visit [facility] MEDICINE [address] [place] [address] Tyesha Rogers MD [address] [place] [address] 10/23/2025 1:00 PM EST Office Visit [facility] OPTOMETRY [address] [place] [address] RafKatharine fu, OD [address] [place] [address] documented as of this encounter Visit Diagnoses Not on filedocumented in this encounter Additional Health Concerns Assessment Noted Time PHQ-9 Depression Total Score: 21 023 9:42 AM EDT documented as of this encounter Care Teams Concessions Manager Relationship Specialty Start Date End Date Tyesha Rogers MD [address] [place] [phone] PCP - General Family Medicine 04/25/19 Hi Cortez, PharmD [address] [place] [phone] Pharmacist Pharmacy 08/04/25 documented as of this encounter
--- OUTSIDE RECORDS SUMMARY | 2025-08-27 13:32 | XMS_ITS | Encounter Summary ---
Author Organization [employer] Address [address] [facility] 7t [place] [address] Care Team Providers Care Gas Inspector Name Role Phone Tyesha Rogers MD Primary Care Provider [phone] Hi Cortez PharmD Unavailable [phone] Reason for Referral * Consultation (Urgent) - Closed Specialty Diagnoses / Procedures Referred By Contangel ro Referred To Contact Neurology Diagnoses Multiple sclerosis Tyesha Rogers MD [address] [place] [address] Phone: tel: fax: [facility] [address] [place] [address] Phone: tel: fax: Referral ID Status Reason Start Date Expiration Date V isits Requested Visits Authorized [id number] Closed Specialty Services Required 07/02/2025 07/02/2026 6 6 Encounter Details Date Type Department Care Team (Late st Contact Info) Description 07/02/2025 Orders Only [facility] MEDICINE [address] [place] [address] Tyesha Rogers MD [address] [place], [place] [phone] Multiple sclerosis (Primary Dx) Social History Tobacco [...] Description 09/19/2025 10:30 AM EST Clinical Support [address] [address] Alva Frias RN [address] [place] [address] 09/30/2025 10:45 AM EST Office Visit [address] [address] Tyesha Rogers MD [address] [place] [address] 10/23/2025 1:00 PM EST Office Visit [facility] OPTOMETRY [address] [place], [place] [phone] Katharine Carbone, OD [address] [place] [address] Scheduled Referrals Name Type Priority Associated Diagnoses Orde r Schedule Referral to Neurology Outpatient Referral Urgent Multiple sclerosis Expected: 07/02/2025 (Approximate), Expires: 07/02/2026 documented as of this encounter Visit Diagnoses Diagnosis Multiple sclerosis- Primary documented in this encounter Additional Health Concerns Assessment Noted Time PHQ-9 Depression Total Score: 14 025 1:25 PM EDT documented as of this encounter Care Teams Gas Inspector Relationship Specialty Start Date End Date Tyesha Rogers MD [address] [place] [phone] PCP - General Family Medicine 04/25/19 Hi Cortez, PharmD [address] [place] [address] [phone] Pharmacist Pharmacy 08/04/25 documented as of this encounter
--- OUTSIDE RECORDS SUMMARY | 2025-08-27 13:32 | XMS_ITS | Clinical Summary ---
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 [facility] Parainfluenza Virus 2 Not Detected Not Detected LAB MICROBIOLOGY METHOD 08/14/2025 12:33 AM [facility] Parainfluenza Virus 3 Not Detected Not Detected LAB MICROBIOLOGY METHOD 08/14/2025 12:33 AM [facility] Parainfluenza Virus 4 Not Detected Not Detected LAB MICROBIOLOGY METHOD 08/14/2025 12:33 AM [facility] RSV PCR Not Detected Not Detected LAB MICROBIOLOGY METHOD 08/14/2025 12:33 AM [facility] Human Metapneumovirus A and B Not Detected Not Detected LAB MICROBIOLOGY METHOD 08/14/2025 12:33 AM [facility] Rhinovirus/Entero virus Not Detected Not Detected LAB MICROBIOLOGY METHOD 08/14/2025 12:33 AM [facility] Bordetella pertussis Not Detected Not Detected LAB MICROBIOLOGY METHOD 08/14/2025 12:33 AM [facility] Bordetella parapertussis Not Detected Not Detected LAB MICROBIOLOGY METHOD 08/14/2025 12:33 AM [facility] Mycoplasma pneumo by PCR Not Detected Not Detected LAB MICROBIOLOGY METHOD 08/14/2025 12:33 AM EST [facility] Chlamydia pneumoniae Not Detected Not Detected LAB MICROBIOLOGY METHOD 08/14/2025 12:33 AM EST [facility] SARS COV-2 Not Detected Not Detected LAB MICROBIOLOGY METHOD 08/14/2025 12:33 AM EST [facility] Swab Both anterior nares / Unknown Non-blood Collection / Unknown 08/13/2025 11:04 PM EST 08/13/2025 11:40 PM EST Narrative [facility] - 08/14/2025 12:33 AM EST Testing was performed using the CSD[employer] Respiratory Pathogen PCR Assay. All results must be correlated with the clinical findings. Results should not be used as the sole basis for diagnosis. False Negative results may occur from the presence of sequence variants in the region targeted by the assay or the presence of inhibitors. Results may be affected by concurrent antiviral/antimicrobial therapy or levels of organisms that are below the limit of detection. Jeremiah FARR LAB MICROBIOLOGY - GENERA L ORDERABLES Final Result [facility] [address] [place] [address], [place] [phone] * SST tube (08/13/2025 10:47 PM EST) Extra Tube Hold for add-ons. 08/14/2025 1:01 AM EST [facility] Comment:Auto resulted. Blood Venous blood specimen / Unknown Venipuncture / Unknown 08/13/2025 10:47 PM EST 08/13/2025 11:06 PM EST Jeremiah Ball MD LAB BLOOD ORDERABLES Final Result Performing Organization Address [facility]/ZIP Co de Phone Number [facility] [address] [place] [address], [place] [phone] * Prothrombin time with INR (08/13/2025 10:47 PM EST) Protime 10.8 10.6 - 13.9 sec LAB COAGULATION METHOD 08/13/2025 11:12 PM EST [facility] INR 0.9 LAB COAGULATION METHOD 08/13/2025 11:12 PM EST [facility] Blood Venous blood specimen / Unknown Venipuncture / Unknown 08/13/2025 10:47 PM EST 08/13/2025 11:01 PM EST us Jeremiah Ball MD LAB BLOOD ORDERABLES Final Result Performing Organization Address [facility]/ZIP Co de Phone Number [facility] [address] [place] [address], [place] [phone] * Lactate (08/13/2025 10:47 PM EST) [facility] Lactate 1.4 0.4 - 2.0 mmol/L 08/13/2025 11:26 PM EST [facility] Blood Venous blood specimen / Unknown Venipuncture / Unknown 08/13/2025 10:47 PM EST 08/13/2025 11:01 PM EST us Jeremiah Ball MD LAB BLOOD ORDERABLES Final Result Performing Organization Address [facility]/ZIP Co de Phone Number [facility] [address] [place] [address], [place] [phone] * CT Abdomen Pelvis wo Contrast (08/13/2025 3:34 PM EST) Only the most recent of2 resultswithin the time period is included. Anatomical Region Laterality Modality Body Computed Tomogra phy 08/13/2025 5:03 PM EST Impressions 08/13/2025 5:09 PM EST 1. No acute abnormality in the abdomen or pelvis. -------- FINAL REPORT -------- Dictated By: Mary Reza Dictated Date: 08/13/2025 17:03 ET Assigned Physician: Mary Reza Reviewed and Electronically Signed By: Mary Reza Signed Date: 08/13/2025 17:09 ET Workstation ID: [id number] Transcribed By: Self Edit Transcribed Date: 08/13/2025 17:03 ET Narrative 08/13/2025 5:09 PM EST PROCEDURE: CT Abdomen and Pelvis without contrast INDICATION: abdominal pain of unknown cause constipation x 1 month TECHNIQUE: CT of the abdomen and pelvis without contrast. Multiplanar reformats. The examination was performed utilizing dose reduction techniques. DLP: 1620 mGy/cm COMPARISON: No priors available. FINDINGS: LOWER THORAX: Lung bases are clear. HEPATOBILIARY: No focal liver lesions. Cholecystectomy. SPLEEN: No splenomegaly. PANCREAS: No focal mass or ductal dilatation. ADRENALS: No nodules. KIDNEYS/URETERS: No hydronephrosis, stones, or solid mass. PELVIC ORGANS/BLADDER: Unremarkable. PERITONEUM / RETROPERITONEUM: No ascites or free air. No retroperitoneal lymphadenopathy. VESSELS: Scattered atherosclerotic calcifications throughout the aorta and its major branches. No aneurysm. GI TRACT: No bowel distention or wall thickening. Fecalization of small bowel loops presumably related to stasis. Normal appendix. BONES AND SOFT TISSUES: Scattered degenerative changes seen throughout the bones. Mild anterolisthesis of L5 on S1 Soft tissues are unremarkable. Procedure Note Mary Reza MD - 08/13/2025 PROCEDURE: CT Abdomen and Pelvis without contrast INDICATION: abdominal pain of unknown cause constipation x 1 month TECHNIQUE: CT of the abdomen and pelvis without contrast. Multiplanarreformats. The examination was performed utilizing dose reductiontechniques. DLP: 1620 mGy/cm COMPARISON: No priors available. FINDINGS: LOWER THORAX: Lung bases are clear. HEPATOBILIARY: No focal liver lesions. Cholecystectomy. SPLEEN: No splenomegaly. PANCREAS: No focal mass or ductal dilatation. ADRENALS: No nodules. KIDNEYS/URETERS: No hydronephrosis, stones, or solid mass. PELVIC ORGANS/BLADDER: Unremarkable. PERITONEUM / RETROPERITONEUM: No ascites or free air. No retroperitoneallymphadenopathy. VESSELS: Scattered atherosclerotic calcifications throughout the aorta andits major branches. No aneurysm. GI TRACT: No bowel distention or wall thickening. Fecalization of smallbowel loops presumably related to stasis. Normal appendix. BONES AND SOFT TISSUES: Scattered degenerative changes seen throughout thebones. Mild anterolisthesis of L5 on S1 Soft tissues are unremarkable. IMPRESSION: 1. No acute abnormality in the abdomen or pelvis. -------- FINAL REPORT -------- Dictated By: Mary Reza Dictated Date: 08/13/2025 17:03 ET Assigned Physician: Mary Reza Reviewed and Electronically Signed By: Mary Reza Signed Date: 08/13/2025 17:09 ET Workstation ID: [id number] Transcribed By: Self Edit Transcribed Date: 08/13/2025 17:03 ET us Rose Marie León MD IMG CT PROCEDURES Final Res ult * Thyroid stimulating hormone with reflex to free t4 and free t3 (08/13/2025 1:22 PM EST) TSH 0.56 0.40 - 4.00 mcIU/mL 08/13/2025 9:09 PM EST [facility] Blood Venous blood specimen / Unknown Venipuncture / Unknown 08/13/2025 1:22 PM EST 08/13/2025 1:35 PM EST us Jeremiah Ball MD LAB BLOOD ORDERABLES Final Result Performing Organization Address [facility] Co de Phone Number [facility] [address] [place] [address], [place] [phone] * Beta hydroxybutyrate (08/13/2025 1:22 PM EST) Beta-Hydroxybu tyrate 1.9 0.2 - 2.8 mg/dL 08/13/2025 2:38 PM EST [facility] Blood Venous blood specimen / Unknown Venipuncture / Unknown 08/13/2025 1:22 PM EST 08/13/2025 1:35 PM EST us Rose Marie León MD LAB BLOOD ORDERABLES Final Result Performing Organization Address City/State/[facility] Co de Phone Number [facility] [address] [place] [address], * (ABNORMAL) C-reactive protein (08/13/2025 1:22 PM EST) C-Reactive Protein 0.73(H) <=0.50 mg/dL 08/13/2025 10:33 PM EST [facility] Blood Venous blood specimen / Unknown Venipuncture / Unknown 08/13/2025 1:22 PM EST 08/13/2025 1:35 PM EST Jeremiah Ball MD LAB BLOOD ORDERABLES Final Result Performing Organization Address [facility] Co de Phone Number [facility] [address] [place] [address], * (ABNORMAL) Magnesium (08/13/2025 1:22 PM EST) Only the most recent of3 resultswithin the time period is included. Magnesium 1.5(L) 1.9 - 2.6 mg/dL 08/13/2025 2:38 PM EST [facility] Blood Venous blood specimen / Unknown Venipuncture / Unknown 08/13/2025 1:22 PM EST 08/13/2025 1:35 PM EST Rose Marie León MD LAB BLOOD ORDERABLES Final Result Performing Organization Address [facility] Co de Phone Number [facility] [address] [place] [address], * Lipase (08/13/2025 1:22 PM EST) Only the most recent of3 resultswithin the time period is included. Lipase 35 12 - 53 unit/L 08/13/2025 2:38 PM EST [facility] Blood Venous blood specimen / Unknown Venipuncture / Unknown 08/13/2025 1:22 PM EST 08/13/2025 1:35 PM EST Rose Marie León MD LAB BLOOD ORDERABLES Final Result Performing Organization Address [facility]/ZIP Co de Phone Number [facility] [address] [place] [address], [place] [phone] * (ABNORMAL) Hemoglobin A1c (08/13/2025 1:22 PM EST) Hemoglobin A1C 9.6(H) <6.5 % LAB CHEMISTRY METHOD 08/14/2025 11:12 AM EST [facility] Mean Bld Glu Estim. 229 mg/dL LAB CHEMISTRY METHOD 08/14/2025 11:12 AM EST [facility] Blood Venous blood specimen / Unknown Venipuncture / Unknown 08/13/2025 1:22 PM EST 08/13/2025 1:36 PM EST Jeremiah Ball MD LAB BLOOD ORDERABLES Final Result Performing Organization Address [facility] Co de Phone Number [facility] [address] [place] [address], [place] [phone] * (ABNORMAL) Comprehensive Metabolic Panel (CMP) (08/13/2025 1:22 PM EST) Only the most recent of4 resultswithin the time period is included. [facility] Sodium 138 133 - 145 mmol/L 08/13/2025 3:22 PM EST [facility] Potassium 4.0 3.5 - 5.5 mmol/L 08/13/2025 3:22 PM EST [facility] Comment:Hemolysis present Chloride 102 96 - 110 mmol/L 08/13/2025 3:22 PM EST [facility] CO2 22 21 - 32 mmol/L 08/13/2025 3:22 PM [facility] Anion Gap 14(H) 3 - 11 08/13/2025 3:22 PM [facility] Glucose 294(H) 70 - 100 mg/dL 08/13/2025 3:22 PM [facility] BUN 21 5 - 25 mg/dL 08/13/2025 3:22 PM [facility] Creatinine 0.97 0.50 - 1.10 mg/dL 08/13/2025 3:22 PM [facility] eGFR 70 >=60 mL/min/1. 73m2 08/13/2025 3:22 PM [facility] Comment:Calculation based on the Chronic Kidney Disease Epidemiology Collaboration (CKD-EPI) equation refit without adjustment for race. BUN/Creatinine Ratio 21.6 08/13/2025 3:22 PM [facility] Calcium 8.2(L) 8.5 - 10.5 mg/dL 08/13/2025 3:22 PM [facility] AST (SGOT) 28 10 - 42 unit/L 08/13/2025 3:22 PM [facility] ALT (SGPT) 44 10 - 60 unit/L 08/13/2025 3:22 PM [facility] Alkaline Phosphatase 93 42 - 121 unit/L 08/13/2025 3:22 PM [facility] Total Protein 6.8 6.0 - 8.0 g/dL 08/13/2025 3:22 PM [facility] Albumin 4.1 3.2 - 5.0 g/dL 08/13/2025 3:22 PM [facility] Total Bilirubin 0.2 0.0 - 1.4 mg/dL 08/13/2025 3:22 PM [facility] Blood Venous blood specimen / Unknown Venipuncture / Unknown 08/13/2025 1:22 PM EST 08/13/2025 1:35 PM EST us Rose Marie León MD LAB BLOOD ORDERABLES Final Result Performing Organization Address [facility]/ZIP Co de Phone Number [facility] [address] [place] [address], [place] [phone] * 12-Lead ECG (08/13/2025 12:49 PM EST) Only the most recent of4 resultswithin the time period is included. [facility] Ventricular Rate ECG 88 BPM GEMUSE Atrial Rate 88 BPM GEMUSE P-R Interval 172 ms GEMUSE QRS Duration 98 ms GEMUSE Q-T Interval 404 ms GEMUSE QTc 488 ms GEMUSE P Wave Julian 16 degrees GEMUSE R Julian -5 degrees GEMUSE T Julian 65 degrees GEMUSE ECG Interpretation Normal sinus rhythm Moderate voltage criteria for LVH, may be normal variant Nonspecific T wave abnormality Prolonged QT Abnormal ECG When compared with ECG of 25-JUN-2025 21:42, Nonspecific T wave abnormality now evident in Lateral leads Confirmed by MD HOPE JOHN ([id number]) on 08/13/2025 3:19:58 PM GEMUSE 08/13/2025 12:4 9 PM EST 08/13/2025 3:19 PM EST us Rose Marie León MD ECG ORDERABLES Final Resul t Performing Organization Address [facility] Co dc Phone Number GEMUSE * (ABNORMAL) Urinalysis with reflex microscopic (08/13/2025 12:49 PM EST) Only the most recent of2 resultswithin the time period is included. [facility] Specific [place] Urine 1.013 1.003 - 1.030 LAB URINALYSIS - AUTOMATED METHOD 08/13/2025 1:42 PM EST [facility] pH, Urine 7.0 5.0 - 8.0 pH LAB URINALYSIS - AUTOMATED METHOD 08/13/2025 1:42 PM EST [facility] Leukocytes, Urine Negative Negative LAB URINALYSIS - AUTOMATED METHOD 08/13/2025 1:42 PM [facility] Nitrite, Urine Negative Negative LAB URINALYSIS - AUTOMATED METHOD 08/13/2025 1:42 PM [facility] Protein, Urine Negative <=Trace mg/dL LAB URINALYSIS - AUTOMATED METHOD 08/13/2025 1:42 PM [facility] Glucose, Urine >=1000(A) Negative mg/dL LAB URINALYSIS - AUTOMATED METHOD 08/13/2025 1:42 PM [facility] Ketones, Urine Negative Negative mg/dL LAB URINALYSIS - AUTOMATED METHOD 08/13/2025 1:42 PM [facility] Urobilinogen , Urine 0.2 0.2 - 1.0 mg/dL LAB URINALYSIS - AUTOMATED METHOD 08/13/2025 1:42 PM [facility] Bilirubin, Urine Negative Negative LAB URINALYSIS - AUTOMATED METHOD 08/13/2025 1:42 PM [facility] Blood, Urine Negative Negative LAB URINALYSIS - AUTOMATED METHOD 08/13/2025 1:42 PM [facility] Urine Urine specimen obtained by clean catch procedure / Unknown Non-blood Collection / Unknown 08/13/2025 12:49 PM EST 08/13/2025 1:33 PM EST Rose Marie León MD LAB URINE ORDERABLES Final Result [facility] [address] [place] [address], * , Urine (08/13/2025 12:49 PM EST) Preg Test, Ur Negative Negative 08/13/2025 2:08 PM [facility] Urine Urine specimen obtained by clean catch procedure / Unknown Non-blood Collection / Unknown 08/13/2025 12:49 PM EST 08/13/2025 1:33 PM EST us Rose Marie León MD LAB URINE ORDERABLES Final Result [facility] [address] [place] [address], [place] [phone] * Vascular US Duplex Lower Extremity Venous Right (08/13/2025 12:24 PM EST) Anatomical Region Laterality Modality Vascular, Abdomen Ultrasound 08/13/2025 12:3 4 PM EST Impressions 08/13/2025 12:34 PM EST NO RIGHT LOWER EXTREMITY DEEP VENOUS THROMBOSIS. -------- FINAL REPORT -------- Dictated By: Mary Reza Dictated Date: 08/13/2025 12:34 ET Assigned Physician: Mary Reza Reviewed and Electronically Signed By: Mary Reza Signed Date: 08/13/2025 12:34 ET Workstation ID: [id number] Transcribed By: Self Edit Transcribed Date: 08/13/2025 12:34 ET Narrative 08/13/2025 12:34 PM EST Ultrasound duplex right lower extremity. INDICATION: DVT Hx pain in extremities TECHNIQUE: 2-D and color Doppler imaging of the right lower extremity venous vasculature with compression and augmentation maneuvers. COMPARISON: No priors available. FINDINGS: There is normal flow, compression, and augmentation from the common femoral through the popliteal vein. No fluid collection. Procedure Note Mary Reza MD - 08/13/2025 Ultrasound duplex right lower extremity. INDICATION: DVT Hx pain in extremities TECHNIQUE: 2-D and color Doppler imaging of the right lower extremityvenous vasculature with compression and augmentation maneuvers. COMPARISON: No priors available. FINDINGS: There is normal flow, compression, and augmentation from the commonfemoral through the popliteal vein. No fluid collection. IMPRESSION: NO RIGHT LOWER EXTREMITY DEEP VENOUS THROMBOSIS. -------- FINAL REPORT -------- Dictated By: Mary Reza Dictated Date: 08/13/2025 12:34 ET Assigned Physician: Mary Reza Reviewed and Electronically Signed By: Reza, Manu Signed Date: 08/13/2025 12:34 ET Workstation ID: [id number] Transcribed By: Self Edit Transcribed Date: 08/13/2025 12:34 ET Rose Marie León MD CV VASCULAR PROCEDURES Yael l Result * Culture urine (06/23/2025 2:19 AM EDT) Pathologist [facility] Culture, Urine No growth 06/24/2025 8:57 AM EDT [facility] Urine Urine specimen obtained by clean catch procedure / Unknown Non-blood Collection / Unknown 06/23/2025 2:19 AM EDT 06/23/2025 2:39 AM EDT Rose Marie León MD LAB MICROBIOLOGY - GENERAL ORDERABLES Final Result Performing Organization Address [facility] de Phone Number [facility] [address] [place] [address], * Troponin I high sensitivity (06/15/2025 10:34 AM EDT) [facility] High Sensitivity Troponin I 16 <=54 ng/L LAB CHEMISTRY METHOD 06/15/2025 11:42 AM EDT [facility] Blood Venous blood specimen / Unknown Venipuncture / Unknown 06/15/2025 10:34 AM EDT 06/15/2025 11:08 AM EDT Narrative [facility] - 06/15/2025 11:42 AM EDT High levels of biotin in samples may falsely decrease hsTroponin values. Use caution when interpreting hsTroponin results in patients taking biotin who exhibit renal impairment (eGFR <60) or in patients taking more than 20 mg/day of biotin. Carmelo Coronado MD LAB BLOOD ORDERABLES Yael l Result Performing Organization Address [facility] Co de Phone Number [facility] [address] [place] [address], [place] [phone] * Lipid panel (11/16/2016) Triglycerides 0 mg/dL Comment:abstracted, no inter pretation Cholesterol 0 mg/dL Comment:abstracted, no inter pretation HDL 0 mg/dL Comment:abstracted, no inter pretation LDL Cholesterol 0 mg/dL Comment:abstracted, no inter pretation Blood Venous blood specimen / Unknown Historical Provider MD LAB BLOOD ORDERABLES Yael l Result * Urine Albumin Creatinine Ratio (09/19/2016) Urine Albumin Creatinine Ratio abstracted [facility] Provider HEALTH MAINTENANCE Final Result * Pap Smear (03/27/2015) Pathologist [facility] Pap smear abstracted , [facility] Historical Provider HEALTH MAINTENANCE Final Result from Last 3 Months or Most Recently Relevant to Health Maintenance Insurance MEDICA[place] - [place] Advance Directives Documents on File Type Date Recorded Patient Cloth Shearer Expl anation Health Care Decision (hx) 05/06/2023 [...] Care Decision (hx) 08/17/2015 AD KASPER DIRECTIVE * Full Code - Default (Latest Code Status on File) Date Activated Date Inactivated Comments 08/13/2025 8:36 PM 08/14/2025 4:33 PM This is orde r is used when code status has not been discussed with the patient, or code status is otherwise unknown/unconfirmed To update the patient's code status, place a code status order. Do not modify or discontinue any currently active code status orders. Care Teams Management Supervisor Relationship Specialty Start Date End Date Tyesha Rogers MD [address] [place] [phone] PCP - General 12/02/21
--- OUTSIDE RECORDS SUMMARY | 2025-08-27 13:33 | XMS_ITS | Encounter Summary ---
Author Organization [employer] Address 75 [facility] 7t [place] [address] Care Team Providers Care In Home Baby Sitter Name Role Phone Tyesha Rogers MD Primary Care Provider [phone] Hi Cortez PharmD Unavailable [phone] Encounter Details Date Type Department Care Team (Late st Contact Info) Description 01/25/2024 Orders Only [facility] MEDICINE 230 [place], [place] [phone] Tyesha Rogers MD 230 [place], [place] [phone] Social History Tobacco Use Types Packs/Day Years [...] Clinical Support [facility] MEDICINE [address] [place] [address] Alva Frias RN 505 [place] [address] 09/30/2025 10:45 AM EST Office Visit [facility] MEDICINE [address] [place] [address] Tyesha Rogers MD 230 [place] [address] 10/23/2025 1:00 PM EST Office Visit [facility] OPTOMETRY [address] [place] [address] Katharine Carbone, OD 230 [place] [address] documented as of this encounter Visit Diagnoses Not on filedocumented in this encounter Additional Health Concerns Assessment Noted Time PHQ-9 Depression Total Score: 21 024 10:41 AM EDT documented as of this encounter Care Teams In Home Baby Sitter Relationship Specialty Start Date End Date Tyesha Rogers MD [address] [place] [address] PCP - General Family Medicine 04/25/19 Hi Cortez, PharmD [address] [place] [address] [place] [address] Pharmacist Pharmacy 08/04/25 documented as of this encounter
--- OUTSIDE RECORDS SUMMARY | 2025-08-27 13:33 | XMS_ITS | Encounter Summary ---
Author Organization [employer] Address [address] [place] [address] 7 [place] [address] Care Team Providers Care Security Door Installer Name Role Phone Tyesha Rogers MD Primary Care Provider [phone] Hi Cortez PharmD Unavailable [phone] Reason for Referral * Consultation (Routine) - Closed Specialty Diagnoses / Procedures Referred By Contangel t Referred To Contact Diagnoses Type 2 diabetes mellitus with hyperglycemia, with long-term current use of insulin (HCC) Hypertension, unspecified type Multiple sclerosis Tyesha Rogers MD [address] [place] [address] Phone: tel: fax: [address] [address] Phone: tel: fax: Referral ID Status Reason Start Date Expiration Date V isits Requested Visits Authorized [id number] Closed Specialty Services Required 11/15/2024 11/15/2025 1 1 Encounter Details Date Type Department Care Team (Late st Contact Info) Description 11/15/2024 Orders Only [facility] MEDICINE [address] [place] [address] Tyesha Rogers MD [address] [place] [address] Type 2 diabetes mellitus with hyperglycemia, with long-term current use of insulin (CMS/HCC) (Primary Dx); Hypertension, unspecified type; Multiple sclerosis (CMS/HCC); Type 2 diabetes mellitus with hyperglycemia (CMS/HCC); Type 2 diabetes mellitus with hyperglycemia, with long-term current use of insulin (CMS/[facility]) Social History Tobacco Use Types [...] your housing situation today? I have dominga ishan 07/05/[address] you li [...] Description 09/19/2025 10:30 AM EST Clinical Support [facility] MEDICINE [address] [place] [address] Alva Frias, LUCIUS 505 [place] [address] 09/30/2025 10:45 AM EST Office Visit [facility] MEDICINE 230 [place] [address] Tyesha Rogers MD 230 [place], [place] 10/23/2025 1:00 PM EST Office Visit [facility] OPTOMETRY [address] [place], [place] [phone] Raf, Katharine, OD 230 [place] [address] Scheduled Referrals Name Type Priority Associated Diagnoses [...] as of this encounter Care Teams Security Door Installer Relationship Specialty Start Date End Date Tyesha Rogers MD [address] [place] [address] PCP - General Family Medicine 04/25/19 Hi Cortez, ManasD [address] [place] [address] Pharmacist Pharmacy 08/04/25 documented as of this encounter
--- OUTSIDE RECORDS SUMMARY | 2025-08-27 13:33 | XMS_ITS | Encounter Summary ---
Author Organization [employer] Address [address] [place] [address] 7 [place] [address] Care Team Providers Care Middle School Sports Coach Name Role Phone Tyesha Rogers MD Primary Care Provider [phone] Hi Cortez PharmD Unavailable [phone] Encounter Details Date Type Department Care Team ([facility] st Contact Info) Description 07/11/2024 Telephone [facility] MEDICINE 230 [place], [place] [phone] Mira Vanegas PharmD 230 [place], [place] [phone] Social History Tobacco Use Types Packs/Day Years [...] Please assist in obtaining discharge paperwork from [facility] Patient was admitted on 06/21/2024. Thank you documented in this encounter Plan of Treatment Upcoming Encounters Date Type Department Care Team (Late st Contact Info) Description 09/19/2025 10:30 AM EST Clinical Support [facility] MEDICINE [address] [place] [address] Alva Frias RN 505 [place] [address] 09/30/2025 10:45 AM EST Office Visit [facility]INE [address] [place] [address] Tyesha Rogers MD 230 [place] [address] 10/23/2025 1:00 PM EST Office Visit [facility] OPTOMETRY [address] [place] [address] Katharine Carbone, OD 230 [place] [address] documented as of this encounter Visit Diagnoses Not on filedocumented in this encounter Additional Health Concerns Assessment Noted Time PHQ-9 Depression Total Score: 24 024 8:33 AM EDT documented as of this encounter Care Teams Middle School Sports Coach Relationship Specialty Start Date End Date Tyesha Rogers MD 230 [place] [address] PCP - General Family Medicine 04/25/19 Hi Cortez, ManasD 230 [place] [address] Pharmacist Pharmacy 08/04/25 documented as of this encounter
--- OUTSIDE RECORDS SUMMARY | 2025-08-27 13:33 | XMS_ITS | Encounter Summary ---
Author Organization [employer] Address 75 [facility] 7 [place] [address] Care Team Providers Care Mechanic And Welder Name Role Phone Tyesha Rogers MD Primary Care Provider [phone] Hi Cortez PharmD Unavailable [phone] Reason for Visit * Reason Comments Med Refill Encounter Details Date Type Department Care Team (Late st Contact Info) Description 11/23/2024 Refill [facility] MEDICINE 230 [place], [place] [phone] Tyesha Rogers MD 230 [place], [place] [phone] Other chronic pain Social History Tobacco Use [...] Description 09/19/2025 10:30 AM EST Clinical Support [facility]INE [address] [place] [address] Alva Frias, LUCIUS 505 [place] [address] 09/30/2025 10:45 AM EST Office Visit [facility] [address] [place] [address] Tyesha Rogers MD 230 [place] [address] 10/23/2025 1:00 PM EST Office Visit [facility] OPTOMETRY 267 [place] [address] Katharine Carbone, OD 230 [place] [address] documented as of this encounter Visit Diagnoses Diagnosis Other chronic pain documented in this encounter Additional Health Concerns Assessment Noted Time PHQ-9 Depression Total Score: 15 025 11:52 AM EST documented as of this encounter Care Teams Mechanic And Welder Relationship Specialty Start Date End Date Tyesha Rogers MD [address] [place] [address] [place] [address] PCP - General Family Medicine 04/25/19 Hi Cortez, PharmD 702 [place] [address] Pharmacist Pharmacy 08/04/25 documented as of this encounter
--- OUTSIDE RECORDS SUMMARY | 2025-08-27 13:33 | XMS_ITS | Encounter Summary ---
Author Organization [employer] Address 75 [facility] 7 [place] [address] Care Team Providers Care Avionics Systems Repairer Name Role Phone Tyesha Rogers MD Primary Care Provider [phone] Hi Cortez PharmD Unavailable [phone] Reason for Visit * Reason Onset Date Comments New Med Request 05/03/2024 Medication Question 05/03/2024 Encounter Details Date Type Department Care Team ([facility] st Contact Info) Description 05/03/2024 Telephone [facility] MEDICINE 230 [place], [place] [phone] Tyesha Rogers MD 230 [place], [place] [phone] New Med Request; Medication Question Social History [...] pt is no longer a patient at [facility] due to move and because the medications were prescribed by her psychiatrist,she should reach out to psychiatrist for these medications. Patient stated she is moving back to [place], date unknown, journalists and other writers again advised pt to contact psychiatrist as they are the prescriber and informed pt that Dr Rogers would be informed of move back. Patient verbalized understanding. --Dr Rogers Patient left our health center and moved to [place]. Her anxiety medications have been prescribed by her psychiatrist. * Telephone Encounter - Andrew Garcia - 05/03/2024 12:17 PM EDT Tc from patient calling to request a medication for anxiety will be flying from [facility] on 05/14 and would like it to be sent to [facility]: [address] [place] [address] documented in this encounter Plan of Treatment Upcoming Encounters Date Type Department Care Team (Late st Contact Info) Description 09/19/2025 10:30 AM EST Clinical Support [facility] MEDICINE 230 [place] [address] Alva Frias, LUCIUS 505 [place] [address] 09/30/2025 10:45 AM EST Office Visit [facility] MEDICINE 230 [place] [address] Tyesha Rogers MD 230 [place] [address] 10/23/2025 1:00 PM EST Office Visit [facility] OPTOMETRY [address] [place] [address] Katharine Carbone, OD 230 [place] [address] documented as of this encounter Visit Diagnoses Not on filedocumented in this encounter Additional Health Concerns Assessment Noted Time PHQ-9 Depression Total Score: 21 024 10:41 AM EDT documented as of this encounter Care Teams Avionics Systems Repairer Relationship Specialty Start Date End Date Tyesha Rogers MD [address] [place] [address] PCP - General Family Medicine 04/25/19 Hi Cortez, PharmD [address] [place] [address] [phone] Pharmacist Pharmacy 08/04/25 documented as of this encounter
--- OUTSIDE RECORDS SUMMARY | 2025-08-27 13:33 | XMS_ITS | Encounter Summary ---
Author Organization [employer] Address 75 [facility] 7t [place] [address] Care Team Providers Care Direct Mail Manager Name Role Phone Tyesha Rogers MD Primary Care Provider [phone] Hi Cortez PharmD Unavailable [phone] Encounter Details Date Type Department Care Team ([facility] st Contact Info) Description 07/23/2025 Results Follow-Up [facility] MEDICINE 230 [place], [place] [phone] Samantha Lima, ANP 230 [place] [address] Culture, Urine, Routine Social History Tobacco Use Types Packs/Day Years [...] as of this encounter Miscellaneous Notes * Result Encounter Note - BERNARD Escalona - 07/23/2025 11:51 AM EST Dear Emily Tucker, Your urine test result was normal. Please call our office if you have any questions. Los resultados de laboratorio son normales. Por favor llame a la oficina si tiene preguntas. Take care, Cu??Samantha valdez TRENCH DIGGER HELPER documented in this encounter Plan of Treatment Upcoming Encounters Date Type Department Care Team (Late st Contact Info) Description 09/19/2025 10:30 AM EST Clinical Support [facility] MEDICINE [address] [place] [address] Alva Frias RN 505 [place] [address] 09/30/2025 10:45 AM EST Office Visit [facility] MEDICINE [address] [place] [address] Tyesha Rogers MD [address] [place] [address] 10/23/2025 1:00 PM EST Office Visit [facility] OPTOMETRY [address] [place] [address] Katharine Carbnoe, OD 230 [place] [address] documented as of this encounter Goals Goal [...] chronic kidney disease No Samantha Lima ANP documented as of this encounter Visit Diagnoses Not on filedocumented in this encounter Additional Health Concerns Active Problems Noted Date Diagnosed Date Help patients manage their type 2 diabetes 07/23 Weekly blood pressure task 07/23/2025 Help patients manage their type 2 diabetes 07/23 Patient has chronic kidney disease 07/23/2025 Weekly blood pressure task 07/23/2025 Patient has chronic kidney disease 07/23/2025 Assessment Noted Time PHQ-9 Depression Total Score: 14 025 1:25 PM EDT documented as of this encounter Care Teams Direct Mail Manager Relationship Specialty Start Date End Date Tyesha Rogers MD [address] [place] [address] PCP - General Family Medicine 04/25/19 Hi Cortez, ManasD 230 [place] [address] Pharmacist Pharmacy 08/04/25 documented as of this encounter
--- OUTSIDE RECORDS SUMMARY | 2025-08-27 13:33 | XMS_ITS | Encounter Summary ---
Author Organization [employer] Address 75 [facility] 7 [place] [address] Care Team Providers Care Patient Account Analyst Name Role Phone Tyesha Rogers MD Primary Care Provider [phone] Hi Cortez PharmD Unavailable [phone] Reason for Visit * Reason Onset Date Comments Appointment Request 07/29/2025 Encounter Details Date Type Department Care Team ([facility] st Contact Info) Description 07/29/2025 Telephone [facility] MEDICINE 230 [place], [place] [phone] Tyesha Rogers MD 230 [place], [place] [phone] Appointment Request Social History Tobacco Use Types [...] encounter Miscellaneous Notes * Telephone Encounter - Dania Loaiza - 07/29/2025 11:51 AM EST Tc from pt requesting to schedule follow up apt . [facility] unable to book due to limited schedule Contact pt at [phone] documented in this encounter Plan of Treatment Upcoming Encounters Date Type Department Care Team (Late st Contact Info) Description 09/19/2025 10:30 AM EST Clinical Support [facility] MEDICINE [address] [place] [address] Alva Frias RN 505 [place] [address] 09/30/2025 10:45 AM EST Office Visit [facility] MEDICINE [address] [place] [address] Tyesha Rogers MD 230 [place] [address] 10/23/2025 1:00 PM EST Office Visit [facility] OPTOMETRY [address] [place] [address] Katharine Carbone, OD [address] [place] [address] documented as of this encounter Goals Goal [...] Care Plan Weekly blood pressure task No HermanvilleMarcy corona FURNITURE DELIVERY DRIVER Weekly blood pressure task Care Plan Weekly blood pressure task No HermanvilleMarcy [facility] Patient has chronic kidney disease Care Plan Patient has chronic kidney disease No [place]villeMarcy [facility] Patient has chronic kidney disease Care Plan Patient has chronic kidney disease No HermanvilleMarcy, FURNITURE DELIVERY DRIVER Weekly blood pressure task Care Plan Weekly blood pressure task No SantiagoaguiDania callahan Weekly blood pressure task Care Plan Weekly blood pressure task No [place] Dania smith Patient has chronic kidney disease Care Plan Patient has chronic kidney disease No SantiagocliftonuiDania callahan Patient has chronic kidney disease Care Plan Patient has chronic kidney disease No Dania Hardy Weekly blood pressure task Care Plan Weekly blood pressure task No ChrisiagoaguiDania callahan Weekly blood pressure task Care Plan Weekly blood pressure task No [place] Dania smith Patient has chronic kidney disease Care Plan Patient has chronic kidney disease No ChrisiaelliottuiDania callahan Patient has chronic kidney disease Care Plan Patient has chronic kidney disease No ChrisiaelliottuiDania callahan Weekly blood pressure task Care Plan Weekly [...] has chronic kidney disease No Basilio, Mayra documented as of this encounter Visit [...] 07/29/2025 Patient has chronic kidney disease 07/29/2025 Assessment Noted Time PHQ-9 Depression Total Score: 14 12/31/ 025 1:25 PM EDT documented as of this encounter Care Teams Patient Account Analyst Relationship Specialty Start Date End Date Tyesha Rogers MD 230 [place] [address] PCP - General Family Medicine 04/25/19 Hi Cortez, PharmD 230 [place] [address] Pharmacist Pharmacy 08/04/25 documented as of this encounter
--- OUTSIDE RECORDS SUMMARY | 2025-08-27 13:33 | XMS_ITS | Encounter Summary ---
Author Organization [employer] Address [address] [place] [address] 7t [place] [address] Care Team Providers Care Smoke Control Supervisor Name Role Phone Tyesha Rogers MD Primary Care Provider [phone] Hi Cortez PharmD Unavailable [phone] Reason for Visit * Reason Comments Med Refill Encounter Details Date Type Department Care Team (Late st Contact Info) Description 07/24/2025 Refill [facility] MEDICINE 230 [place], [place] [phone] Tyesha Rogers MD 230 [place], [place] [phone] Social History Tobacco Use Types Packs/Day Years [...] Description 09/19/2025 10:30 AM EST Clinical Support [facility] MEDICINE 230 [place] [address] Alva Frias RN 505 [place] [address] 09/30/2025 10:45 AM EST Office Visit [facility] MEDICINE 230 [place] [address] Tyesha Rogers MD 230 [place] [address] 10/23/2025 1:00 PM EST Office Visit [facility] OPTOMETRY [address] [place] [address] Katharine Carbone OD 230 [place] [address] documented as of this encounter Goals Goal [...] documented as of this encounter Care Teams Smoke Control Supervisor Relationship Specialty Start Date End Date Tyesha Rogers MD 230 [place] [address] PCP - General Family Medicine 04/25/19 Hi Cortez, ManasD 230 [place] [address] Pharmacist Pharmacy 08/04/25 documented as of this encounter
--- OUTSIDE RECORDS SUMMARY | 2025-08-27 13:33 | XMS_ITS | Encounter Summary ---
Author Organization [employer] Address 75 [facility] 7t [place] [address] Care Team Providers Care Addiction Counselor Name Role Phone Tyesha Rogers MD Primary Care Provider [phone] Hi Cortez PharmD Unavailable [phone] Encounter Details Date Type Department Care Team (Late st Contact Info) Description 05/06/2024 Orders Only [facility] MEDICINE 230 [place], [place] [phone] Tyesha Rogers MD 230 [place], [place] [phone] Social History Tobacco Use Types Packs/Day Years [...] Description 09/19/2025 10:30 AM EST Clinical Support [facility] MEDICINE [address] [place] [address] Alva Frias RN 505 [place] [address] 09/30/2025 10:45 AM EST Office Visit [facility] MEDICINE [address] [place] [address] Tyesha Rogers MD 230 [place] [address] 10/23/2025 1:00 PM EST Office Visit [facility] OPTOMETRY [address] [place] [address] Katharine Carbone, OD 230 [place] [address] documented as of this encounter Visit Diagnoses Not on filedocumented in this encounter Additional Health Concerns Assessment Noted Time PHQ-9 Depression Total Score: 21 024 10:41 AM EDT documented as of this encounter Care Teams Addiction Counselor Relationship Specialty Start Date End Date Tyesha Rogers MD [address] [place] [address] PCP - General Family Medicine 04/25/19 Hi Cortez, PharmD [address] [place] [address] [place] [address] Pharmacist Pharmacy 08/04/25 documented as of this encounter
--- OUTSIDE RECORDS SUMMARY | 2025-08-27 13:33 | XMS_ITS | Encounter Summary ---
Author Organization [employer] Address 75 [facility] 7 [place] [address] Care Team Providers Care Brick Kiln Burner Name Role Phone Tyesha Rogers MD Primary Care Provider [phone] Hi Cortez PharmD Unavailable [phone] Reason for Visit * Reason Comments Med Refill Encounter Details Date Type Department Care Team (Late st Contact Info) Description 01/22/2024 Refill [facility] MEDICINE 230 [place], [place] [phone] Tyesha Rogers MD 230 [place], [place] [phone] Other chronic pain Social History Tobacco Use [...] Description 09/19/2025 10:30 AM EST Clinical Support [facility] MEDICINE [address] [place] [address] Alva Frias, LUCIUS 505 [place] [address] 09/30/2025 10:45 AM EST Office Visit [facility] MEDICINE [address] [place] [address] Tyesha Rogers MD 230 [place] [address] 10/23/2025 1:00 PM EST Office Visit [facility] OPTOMETRY [address] [place] [address] Katharine Carbone, OD 230 [place] [address] documented as of this encounter Visit Diagnoses Diagnosis Other chronic pain documented in this encounter Additional Health Concerns Assessment Noted Time PHQ-9 Depression Total Score: 21 024 10:41 AM EDT documented as of this encounter Care Teams Brick Kiln Burner Relationship Specialty Start Date End Date Tyesha Rogers MD 230 [place] [address] PCP - General Family Medicine 04/25/19 iH Cortez, PharmD 230 [place] [address] Pharmacist Pharmacy 08/04/25 documented as of this encounter
--- OUTSIDE RECORDS SUMMARY | 2025-08-27 13:33 | XMS_ITS | Encounter Summary ---
Author Organization [employer] Address [address] [facility] 7t [place] [address] Care Team Providers Care Credit Portfolio Manager Name Role Phone Tyesha Rogers MD Primary Care Provider [phone] Hi Cortez PharmD Unavailable [phone] Reason for Visit * Reason Onset Date Comments Med Refill 07/29/2025 Encounter Details Date Type Department Care Team ([facility] st Contact Info) Description 07/29/2025 Telephone [facility] [address] [place], [place] [phone] Tyesha Rogers MD [address] [place], [place] [phone] Med Refill Social History Tobacco Use Types [...] encounter Miscellaneous Notes * Telephone Encounter - Randa Estes LPN - 07/29/2025 11:56 AM EST Prazosin and Topiramate have refills. Pepcid was a temporary med. guanFACINE not prescribed by PCP. Other medications sent to PCP. * Telephone Encounter - Dania Loaiza - 07/29/2025 11:48 AM EST TC from pt requesting medication refill. Medications needing refill : famotidine (Pepcid) 20 MG tablet omeprazole (PriLOSEC) [address] capsule guanFACINE (Intuniv) 2 mg 24 hr tablet bisacodyl (Dulcolax) 5 MG EC tablet prazosin (Minipress) 1 MG capsule cloNIDine (Catapres) 0.1 MG tablet topiramate (Topamax) 100 MG tablet To be sent to: [facility] - [place], [place] - [address] [facility] documented in this encounter Plan of Treatment Upcoming Encounters Date Type Department Care Team (Late st Contact Info) Description 09/19/2025 10:30 AM EST Clinical Support [facility]INE [address] [place] [address] Alva Frias RN [address] [place] [address] 09/30/2025 10:45 AM EST Office Visit [facility] [address] [place] [address] Tyesha Rogers MD [address] [place] [address] 10/23/2025 1:00 PM EST Office Visit [facility] OPTOMETRY [address] [place] [address] Katharine Carbone, OD 230 [place] [address] documented as of this encounter Goals Goal [...] Care Plan Weekly blood pressure task No Holden, Marcy, GOLD ASSAYER Weekly blood pressure task Care Plan Weekly blood pressure task No Holden, Marcy, GOLD ASSAYER Patient has chronic kidney disease Care Plan Patient has chronic kidney disease No Holden, Marcy, GOLD ASSAYER Patient has chronic kidney disease Care Plan Patient has chronic kidney disease No Holden Marcy, GOLD ASSAYER Weekly blood pressure task Care Plan Weekly blood pressure task No Dania Hardy Weekly blood pressure task Care Plan Weekly blood pressure task No Dania Hardy Patient has chronic kidney disease Care Plan Patient has chronic kidney disease No Dania Hardy Patient has chronic kidney disease Care Plan Patient has chronic kidney disease No Dania Hardy Weekly blood pressure task Care Plan Weekly blood pressure task No Dania Hardy Weekly blood pressure task Care Plan Weekly blood pressure task No Dania Hardy Patient has chronic kidney disease Care Plan Patient has chronic kidney disease No Dania Hardy Patient has chronic kidney disease Care Plan Patient has chronic kidney disease No Dania Hardy Weekly blood pressure task Care Plan Weekly blood pressure task No Franklyn Randa, PERSONAL CARE ASSISTANT Weekly blood pressure task Care Plan Weekly blood pressure task No Franklyn, Randa, PERSONAL CARE ASSISTANT Patient has chronic kidney disease Care Plan Patient has chronic kidney disease No Franklyn Randa, PERSONAL CARE ASSISTANT Patient has chronic kidney disease Care Plan Patient has chronic kidney disease No Franklyn Randa, PERSONAL CARE ASSISTANT Weekly blood pressure task Care Plan Weekly [...] documented as of this encounter Care Teams Credit Portfolio Manager Relationship Specialty Start Date End Date Tyesha Rogers MD [address] [place] [address] PCP - General Family Medicine 04/25/19 Hi Cortez, ManasD [address] [place] [address] Pharmacist Pharmacy 08/04/25 documented as of this encounter
--- OUTSIDE RECORDS SUMMARY | 2025-08-27 13:33 | XMS_ITS | Encounter Summary ---
Author Organization [employer] Address [address] [facility] [address] [place] [address] Care Team Providers Care Motor Bike Mechanic Name Role Phone Tyesha Rogers MD Primary Care Provider [phone] Hi Cortez PharmD Unavailable [phone] Encounter Details Date Type Department Care Team (Late st Contact Info) Description 06/05/2024 Orders Only [facility] [address] [place], [place] [phone] Henry Choi MD [address] [place], [place] [phone] Social History Tobacco Use Types Packs/Day Years [...] Description 09/19/2025 10:30 AM EST Clinical Support [facility] [address] [place] [phone] Alva Frias RN [address] [place] [address] 09/30/2025 10:45 AM EST Office Visit [facility] [address] [place] [phone] Tyesha Rogers MD 230 [place] [address] 10/23/2025 1:00 PM EST Office Visit [facility] OPTOMETRY [address] [place] [address] aKtharine Carbone, OD [address] [place] [address] documented as of this encounter Visit Diagnoses Not on filedocumented in this encounter Additional Health Concerns Assessment Noted Time PHQ-9 Depression Total Score: 24 024 10:42 AM EDT documented as of this encounter Care Teams Motor Bike Mechanic Relationship Specialty Start Date End Date Tyesha Rogers MD [address] [place] [address] PCP - General Family Medicine 04/25/19 Hi Cortez, PharmD [address] [place] [address] [place] [address] Pharmacist Pharmacy 08/04/25 documented as of this encounter
--- OUTSIDE RECORDS SUMMARY | 2025-08-27 13:33 | XMS_ITS | Encounter Summary ---
Author Organization [employer] Address [address] [facility] 7t [place] [address] Care Team Providers Care Screen Printing Supervisor Name Role Phone Tyesha Rogers MD Primary Care Provider [phone] Hi Cortez PharmD Unavailable [phone] Reason for Visit * Reason Comments Med Refill Encounter Details Date Type Department Care Team (Late st Contact Info) Description 04/24/2024 Refill [facility] MEDICINE 230 [place], [place] [phone] Tyesha Rogers MD 230 [place], [place] [phone] Vitamin D deficiency; Hypothyroidism, unspecified type Social [...] requests. This patient is currently living in [place]. She left [facility]. Please seen Dr. Grimes's note in February 2024. Thank you documented in this encounter Plan of Treatment Upcoming Encounters Date Type Department Care Team (Late st Contact Info) Description 09/19/2025 10:30 AM EST Clinical Support [facility] MEDICINE [address] [place] [phone] Alva Frias RN 505 [place] [address] 09/30/2025 10:45 AM EST Office Visit [facility] MEDICINE [address] [place] [address] Tyesha Rogers MD [address] [place] [address] 10/23/2025 1:00 PM EST Office Visit [facility] OPTOMETRY [address] [place] [address] RafKatharine, OD [address] [place], [place] [phone] documented as of this encounter Visit Diagnoses Diagnosis Vitamin D deficiency Hypothyroidism, unspecified type documented in this encounter Additional Health Concerns Assessment Noted Time PHQ-9 Depression Total Score: 21 024 10:41 AM EDT documented as of this encounter Care Teams Screen Printing Supervisor Relationship Specialty Start Date End Date Tyesha Rogers MD [address] [place] [phone] PCP - General Family Medicine 04/25/19 Hi Cortez, PharmD [address] [place] [phone] Pharmacist Pharmacy 08/04/25 documented as of this encounter
--- OUTSIDE RECORDS SUMMARY | 2025-08-27 13:33 | XMS_ITS | Encounter Summary ---
Author Organization [employer] Address [address] [place] [address] 7t [place] [address] Care Team Providers Care Production Lapping Machine Operator Name Role Phone Tyesha Rogers MD Primary Care Provider [phone] Hi Cortez PharmD Unavailable [phone] Encounter Details Date Type Department Care Team ([facility] Contact Info) Description 10/29/2024 Orders Only [facility] [address] [place], [place] [phone] Provider, MD Jhony Social History Tobacco Use [...] Clinical Support [facility] MEDICINE [address] [place] [phone] Alva Frias RN 505 [place] [address] 09/30/2025 10:45 AM EST Office Visit [facility] MEDICINE [address] [place] [address] Tyesha Rogers MD [address] [place] [address] 10/23/2025 1:00 PM EST Office Visit [facility] OPTOMETRY [address] [place] [address] Katharine Carbone, OD [address] [place] [address] documented as of this encounter Procedures Procedure [...] as of this encounter Care Teams Production Lapping Machine Operator Relationship Specialty Start Date End Date Tyesha Rogers MD [address] [place] [address] PCP - General Family Medicine 04/25/19 Hi Cortez, ManasD [address] [place] [address] Pharmacist Pharmacy 08/04/25 documented as of this encounter
--- OUTSIDE RECORDS SUMMARY | 2025-08-27 13:33 | XMS_ITS | Encounter Summary ---
Author Organization [employer] Address [address] [facility] 7t [place] [address] Care Team Providers Care Cover Cutter Name Role Phone Tyesha Rogers MD Primary Care Provider Hi Cortez PharmD Unavailable [phone] Reason for Visit * Reason Onset Date Comments Hospital Follow-up 05/29/2024 Encounter Details Date Type Department Care Team (Late st Contact Info) Description 05/29/2024 Telephone [facility] MEDICINE 230 [place], [place] [phone] Tyesha Rogers MD [address] [place], [place] [phone] Hospital Follow-up Social History Tobacco Use Types [...] pt requesting a HDF appt. Hospital: [facility] Date of admission: 05/28/24 Discharge date: 05/29/24 Diagnosed: urticaria documented in this encounter Plan of Treatment Upcoming Encounters Date Type Department Care Team (Late st Contact Info) Description 09/19/2025 10:30 AM EST Clinical Support [facility] MEDICINE [address] [place] [phone] Alva Frias RN [address] [place] [address] 09/30/2025 10:45 AM EST Office Visit [facility] MED[facility]INE [address] [place] [phone] Tyesha Rogers MD [address] [place] [address] 10/23/2025 1:00 PM EST Office Visit [facility] OPTOMETRY [address] [place] [address] Katharine Carbone, OD 230 [place] [address] documented as of this encounter Visit Diagnoses Not on filedocumented in this encounter Additional Health Concerns Assessment Noted Time PHQ-9 Depression Total Score: 24 024 10:42 AM EDT documented as of this encounter Care Teams Cover Cutter Relationship Specialty Start Date End Date Tyesha Rogers MD [address] [place] [address] PCP - General Family Medicine 04/25/19 Hi Cortez, ManasD [address] [place] [phone] Pharmacist Pharmacy 08/04/25 documented as of this encounter
--- OUTSIDE RECORDS SUMMARY | 2025-08-27 13:34 | XMS_ITS | Clinical Summary ---
Author Organization [employer] Address [address] [facility] [address] [place] [address] Care Team Providers Care Matrix Inspector Name Role Phone Azul Houston MD Primary Care Provider [phone] Hi Cortez PharmD Unavailable [phone] Allergies Active Allergy Reactions Criticality Noted Date [...] Unable to Define Lisinopril-Hydrochlorothia zide Cough 12/06/2016 [place]imley High 12/04/2018 Other reaction(s): stiffened up & [...] hyperglycemia, with long-term current use of insulin ([facility]) Administer 15 g orally as needed for blood glucose < 60 mg/dl. Use glucagon if pt cannot swallow or is unresponsive. Call emergency if pt is lethargic or unresponsive. 45 g 3 2022 Active Additional Information Patient not taking.Reported on 12/31/2024 Blood Glucose Monitoring Suppl (Game[employer] Fernwood Lite) w/Device kit Use to test blood sugar bid dx dm 1 kit 2024 Active Blood Pressure kit Check BP every day. Goal BP < 140/90 1 kit 2024 Active ammonium lactate (Lac-Hydrin) 12 % lotion Apply 1 Application topically 2 times daily. 2024 Active insulin lispro (HumaLOG) 100 UNIT/ML injectionIndicat ions:Type 2 diabetes mellitus with hyperglycemia, with long-term current use of insulin ([facility]) << Sliding Scale Comments >>100 - 149 8 units Call if less than 49840 - 199 10 units 200 - 249 12 units 250 - 299 14 units 300 - 349 16 units Call if greater than 400... 20 mL 2 2024 Active atorvastatin (Lipitor) 40 MG tablet Take 1 tablet (40 mg) by mouth Once per day. 90 tablet 3 2024 Active Alcohol Swabs (Alcohol Pads) 70 % pads USE TO TEST FINGER STICK BLOOD SUGAR 3 (THREE) TIMES A DAY AND NEEDED when feeling ill 100 each 3 08/02/20 25 4:30 PM EST 2024 Active FREESTYLE LITE test stripIndications :Type 2 diabetes mellitus with hyperglycemia, with long-term current use of insulin ([facility]) USE TO TEST BLOOD SUGAR FOUR TIMES DAILY. FASTING (BEFORE BREAKFAST), BEFORE LUNCH, BEFORE DINNER AND 2 HOURS AFTER YOUR LARGEST MEAL OF THE DAY. 100 strip 3 08/02/20 25 4:30 PM EST 2024 Active Ventolin HFA 108 (90 Base) MCG/ACT inhalerIndicatio ns:Moderate persistent asthma without complication INHALE TWO PUFFS BY MOUTH EVERY 4 HOURS NEEDED FOR FOR WHEEZING 18 g 3 08/02/20 25 4:30 PM EST 2024 Active FreeStyle lancetsIndicatio ns:Type 2 diabetes mellitus with hyperglycemia, with long-term current use of insulin (HCC) 1 each by Other route 4 times daily. Test blood sugar 4 times a day 100 each 5 08/02/20 25 4:30 PM EST 2024 Active hydrocortisone 1 % cream Apply 1 Application. topically 2 times daily. Active ondansetron ODT (Zofran-ODT) 4 MG disintegrating tablet Take 4 mg by mouth every 8 (eight) hours if needed for nausea or vomiting. Active acetaminophen (Tylenol) 325 MG tabletIndication s:Chronic [...] for anaphylaxis. 2 each 1 2024 Active topiramate (Topamax) 100 MG tabletIndication s:MDD (major depressive disorder), recurrent severe, without psychosis (CMS/HCC) (HCC),Mood disorder (CMS/HCC) Take 1 tablet (100 mg) by mouth at bedtime. 30 tablet 1 08/27/20 25 9:36 AM EST 2024 Active apixaban (Eliquis) 5 MG tabletIndication s:History of pulmonary embolus (PE),History of DVT (deep vein thrombosis) Take 1 tablet (5 mg) by mouth 2 times daily. 60 tablet 1 08/27/20 9:36 AM EST 2024 Active doxepin (SINEquan) 10 MG capsuleIndicatio ns:MDD (major depressive disorder), recurrent severe, without psychosis (CMS/HCC) ([facility]) Take 1 capsule (10 mg) by mouth at bedtime. 30 capsule 1 08/27/20 9:36 AM EST 2024 Active glycerin (Adult) 2 g suppositoryIndic ations:Constipat ion, unspecified constipation type Insert 1 suppository (2 g) into the rectum if needed each day for constipation. 25 suppository 2024 Active psyllium (Metamucil) 52.63 % powderIndication s:Constipation, unspecified constipation type 1 tsp once daily in 8 oz water 414 g 2024 Active Continuous Glucose Sensor (FreeStyle Eloy 3 Plus Sensor) miscIndications: Type 2 diabetes mellitus with hyperglycemia, with long-term current use of insulin ([facility]) 1 each every 15 days. Apply 1 every 15 days as directed for CGM 2 each 08/01/20 2:12 PM EST 2024 Active glucose blood (FreeStyle Precision Brent Test) test stripIndications :Type 2 diabetes mellitus with hyperglycemia, with long-term current use of insulin ([facility]) Use to test blood sugar 3 times daily in case of CGM failure or extremes of BG 100 each 07/21 Active Continuous Glucose Dining Chair Seat Cushion Trimmer (FreeStyle Eloy 3 Kenton) deviceIndication s:Type 2 diabetes mellitus with hyperglycemia, with long-term current use of insulin ([facility]) 1 each Once per day. Use as directed for CGM 1 each 08/01/20 2:12 PM EST 2024 Active lactulose 20 gram/30 mL oral solutionIndicati ons:Constipation , unspecified constipation type 30mL as needed up to once daily for constipation 450 mL 2024 Active Bisacodyl EC 5 MG EC tablet TAKE 1 TABLET BY MOUTH ONCE DAILY NEEDED FOR CONSTIPATION OR IF no bowel movement FOR 3 DAYS. DO NOT CRUSH, chew, OR split 30 tablet 3 08/01/20 2:12 PM EST 2024 Active omeprazole (PriLOSEC) [address] capsule TAKE 2 CAPSULES BY MOUTH ONCE DAILY DO NOT CRUSH OR chew 180 capsule 08/01/20 2:12 PM EST 2024 Active cloNIDine (Catapres) 0.1 MG tablet TAKE 1 TABLET BY MOUTH IN THE MORNING, AT NOON AND AT BEDTIME NEEDED FOR ANXIETY. 90 tablet 3 2024 Active levothyroxine (Synthroid, Levoxyl) 25 MCG tablet Take 1 tablet by mouth before breakfast. 2024 Active traMADol (Ultram) 50 MG tabletIndication s:Chronic bilateral low back pain, unspecified whether sciatica present Take 1 tablet (50 mg) by mouth if needed in the morning and at bedtime for severe pain. 56 tablet 08/18/20 11:51 AM EST 2024 Active Comfort EZ Pen [place] 32G X 5 MM misc USE FOR INJECT insulin UNDER THE SKIN 4 (FOUR) TIMES DAILY DIRECTED 120 each 2 2024 Active famotidine (Pepcid) 20 MG tabletIndication s:Epigastric pain Take 1 tablet (20 mg) by mouth 2 times daily. 60 tablet 08/27/20 9:36 AM EST 2024 Active guanFACINE (Intuniv) 2 mg 24 hr tablet Take 1 tablet (2 mg) by mouth Once per day. 30 tablet 08/27/20 9:36 AM EST 2024 Active prazosin (Minipress) 1 MG capsuleIndicatio ns:Posttraumatic stress disorder Take 1 capsule (1 mg) by mouth at bedtime. 30 capsule 1 10/24 Active pregabalin (Lyrica) 25 MG capsule Take 1 capsule (25 mg) by mouth in the morning and 1 capsule (25 mg) at noon and 1 capsule (25 mg) in the evening. 90 capsule 08/27/20 9:36 AM EST 2024 Active insulin degludec (Tresiba FlexTouch) 100 UNIT/ML injectionIndicat ions:Type 2 diabetes mellitus with hyperglycemia, with long-term current use of insulin (HCC) Administer subcutaneously 32 units daily for 3 days, if fasting sugar >140 increase to 35 units daily 15 mL 1 2024 Active metoprolol succinate XL (Toprol XL) 25 MG 24 hr tablet Take 1 tablet (25 mg) by mouth Once per day. Do not crush or chew. 30 tablet 11 08/27/20 25 11:47 AM EST 08/27 Active insulin pen needle 32G x 5 mm misc Inject under the skin 4 times daily. Use as instructed 120 each 08/19 Discontinued cloNIDine (Catapres) 0.1 MG tablet Take 1 tablet (0.1 mg) by mouth if needed in the morning, at noon, and at bedtime (anxiety). 180 tablet 3 07/29 Discontinued( Reorder (will not trigger notification to Pharmacy)) amLODIPine (Norvasc) 10 MG tablet Take 1 tablet (10 mg) by mouth Once per day. 90 tablet 3 08/26 Discontinued( Stop taking at discharge) insulin degludec (Tresiba FlexTouch) 100 UNIT/ML injectionIndicat ions:Type 2 diabetes mellitus with hyperglycemia, with long-term current use of insulin (HCC) Administer subcutaneously 30 units daily 6 mL 11 08/01 Discontinued( Reorder (will not trigger notification to Pharmacy)) omeprazole (PriLOSEC) [address] capsule Take 40 mg by mouth Once per day. 07/29 Discontinued bisacodyl (Dulcolax) 5 MG EC tablet Take 10 mg by mouth if needed each day. Do not crush, chew, or split. 07/29 Discontinued guanFACINE (Intuniv) 2 mg 24 hr tablet Take 2 mg by mouth Once per day. 08/25 Discontinued( Reorder (will not trigger notification to Pharmacy)) pregabalin (Lyrica) 25 MG capsule Take 25 mg by mouth in the morning and 25 mg at noon and 25 mg in the evening. 08/25 Discontinued( Reorder (will not trigger notification to Pharmacy)) traZODone (Desyrel) 50 MG tablet Take 50 mg by mouth at bedtime. May repeat once as needed. 08/01 Discontinued( Med list cleanup (will not trigger notification to Pharmacy)) traMADol (Ultram) 50 MG tabletIndication s:Chronic bilateral low back pain, unspecified whether sciatica present Take 1 tablet (50 mg) by mouth if needed in the morning and at bedtime for severe pain. 56 tablet 08/11 Discontinued( Reorder (will not trigger notification to Pharmacy)) prazosin (Minipress) 1 MG capsuleIndicatio ns:Posttraumatic stress disorder Take 1 capsule (1 mg) by mouth at bedtime. 30 capsule 1 08/25 Discontinued( Reorder (will not trigger notification to Pharmacy)) famotidine (Pepcid) 20 MG tabletIndication s:Epigastric pain Take 1 tablet (20 mg) by mouth 2 times daily. 60 tablet 08/25 Discontinued( Reorder (will not trigger notification to Pharmacy)) insulin degludec (Tresiba FlexTouch) 100 UNIT/ML injectionIndicat ions:Type 2 diabetes mellitus with hyperglycemia, with long-term current use of insulin (HCC) Administer subcutaneously 30 units daily 15 mL 1 08/01/20 25 2:12 PM EST 08/27 Discontinued( Reorder (will not trigger notification to Pharmacy)) Active Problems Problem Noted Date Diagnosed Date Abnormal thyroid function test 08/27/2025 Assessment & Plan (08/27/2025 10:31 AM EST): Orders: TSH W/Reflex to FT4; Future Onychomycosis 08/27/2025 Assessment & Plan (08/27/2025 10:31 AM EST): Orders: Referral to Podiatry; Future Constipation 08/05/2025 Assessment & Plan (08/27/2025 10:31 AM EST): Orders: Referral to Gastroenterology; Future Referral to Cardiology; Future Attention deficit hyperactiv ity disorder (ADHD), combined [...] she is diagnosed with MDD. Occasionally with Arrington II due to borderline tendency and conversion disorder Hx suicide attempt several times (one time overdosed insulin) Previous [facility] provider: [facility], Dr. Alex is psychiatrist, previously Alb[facility] Duff was her therapist. Current behavioral health service provider: Encouraged to reach out to her [facility] therapist and psychiatrist for her concerns and [...] She is engage in MH at [facility] with therapist Aminata Bolton. I will submit referral to [facility] for Psychiatrist services. Provided education around integrated [...] Remind engage in MH services with [facility] Referral to [facility] for Psychiatrist services [facility] contact information for support. Assessment & Plan (07/14/2025 3:47 PM EST): >>ASSESSMENT AND PLAN FOR SEVERE EPISODE OF RECURRENT MAJOR DEPRESSIVE DISORDER, WITHOUT PSYCHOTIC FEATURES (CMS/HCC) ([facility]) WRITTEN ON 07/11/2023 8:28 AM BY GUSTAVO SALAS Emily has a h/o mood disorder, SI, cocaine use, OUD, depression, anxiety and PTSD. Eun reports anhedonia, feeling depressed, sleep disturbances, feeling tired, poor appetite, and overeating, guilt, trouble concentrating, feeling anxious, inability to control worry, worrisome, trouble relaxing, and restlessness. Emily agrees to go up to [facility], and attempt to reschedule with therapist. Emily is open to a referral to [facility] for psychiatric medication. She also requests to return to [facility]. LUCIUS Hatch has scheduled that appointment. Emily agrees to follow up with me at ext. [phone], if she is unable to connect with therapist. 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 Last seen in December 2022 - CAD, remote non-STEMI on 10/29, reported moderate CAD - History of DVT and likely PE at [facility], on apixaban and 12 contrast allergy with anaphylaxis. 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 Last seen in December 2022 - CAD, remote non-STEMI on 10/29, reported moderate CAD - History of DVT and likely PEA at [facility], on apixaban and 12 contrast allergy with anaphylaxis. 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 Last seen in December 2022 - CAD, remote non-STEMI on 10/29, reported moderate CAD - History of DVT and likely PEA at [facility], on apixaban and 12 contrast allergy with anaphylaxis. 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 Last seen in December 2022 - CAD, remote non-STEMI on 10/29, reported moderate CAD - History of DVT and likely PEA at [facility], on apixaban and 12 contrast allergy with anaphylaxis. Assessment & Plan (12/22/2022 5:36 AM EDT): -Parking Ramp Attendant: Umesh Forrester, last seen in Sep 2021 -Hx mild CAD, last cardiac cath on 03/06/20 -continue ARB and statin -continue working on lifestyle modification -not on ASA since she started taking Eliquis for PE -previously on propranolol for ARCEO, but no longer taking it due to Hx hypotension -follow-up with mining helper as scheduled Assessment & Plan (09/04/2022 12:05 PM EST): -Parking Ramp Attendant: Umesh Forrester, last seen in Sep 2021 -Hx mild CAD, last cardiac cath on 03/06/20 -continue ARB and statin -continue working on lifestyle modification -not on ASA since she started taking Eliquis for PE -previously on propranolol for ARCEO, but no longer taking it due to Hx hypotension -follow-up with mining helper as scheduled Tobacco use 08/30/2022 Assessment & [...] & Plan (01/14/2025 11:13 AM EDT): Urologist: [facility], Dr. Duran, last seen in Aug 2021 S/p right ESWL on 01/29/20 S/p left cystoscopy, retrograde laser and stent on 02/28/20 S/p removal on 04/07/21 S/p cystoscopy and ureteroscopy on 08/23/21 Drink water > 2L / day Assessment & Plan (12/22/2022 5:58 AM EDT): Urologist: Dr. Roger Boyd, last [...] (08/19/2022 10:40 AM EST): Urologist: Dr. Roger Byod, last seen in Aug 2021 S/p right [...] she is diagnosed with MDD. Occasionally with Arrington II due to borderline tendency and conversion disorder Hx suicide attempt several times (one time overdosed insulin) [facility] provider: Dr. Abi Thomason is psychiatrist, previously Albina Duff was her therapist. Encouraged to reach out to her [facility] therapist and psychiatrist for her concerns and medication management She was able to contract her safety today Assessment & Plan (01/14/2025 11:14 AM EDT): Current Dx: Bipolar disorder, sometimes she is diagnosed with MDD. Occasionally with Arrington II due to borderline tendency and conversion disorder Hx suicide attempt several times (one time overdosed insulin) [facility] provider: Dr. Abi MCDONNELL is psychiatrist, previously Albina Duff was her therapist. Encouraged to reach out to her [facility] therapist and psychiatrist for her concerns and medication management She was able to contract her safety today Assessment & Plan (08/25/2023 7:11 PM EST): Current Dx: Bipolar disorder, sometimes she is diagnosed with MDD. Occasionally with Arrington II due to borderline tendency and conversion disorder Hx suicide attempt several times (one time overdosed insulin) [facility] provider: Dr. Abi MCDONNELL is psychiatrist, previously Albina Duff was her therapist. Encouraged to reach out to her [facility] therapist and psychiatrist for her concerns and medication management She was able to contract her safety today Assessment & Plan (09/04/2022 12:10 PM EST): Current Dx: Bipolar disorder, sometimes she is diagnosed with MDD. Occasionally with Arrington II due to borderline tendency and conversion disorder [facility] provider: Dr. Abi Thomason is psychiatrist, Albina Duff has been her therapist. Encouraged to reach out to her [facility] therapist and psychiatrist for her concerns and medication management She was able to contract her safety today Assessment & Plan (08/19/2022 11:13 AM EST): Current Dx: Bipolar disorder, sometimes she is diagnosed with MDD. Occasionally with Arrington II due to borderline tendency and conversion disorder [facility] provider: Dr. Abi MCDONNELL is psychiatrist, Albina Duff has been her therapist. Encouraged to reach out to her [facility] therapist and psychiatrist for her concerns and medication management She was able to contract her safety today Cervical dysplasia 08/02/2022 Cocaine use disorder ([facility]) 08/02/2022 H/O: attempted suicide 08/02/2022 Substance use disorder 08/02/2022 Opioid use disorder 08/02/2022 Coronary artery disease 09/26/2018 Type 2 diabetes mellitus with hyperglycemia 09/11 Overview (01/13/2025): >>OVERVIEW FOR TYPE 2 DIABETES MELLITUS, WITH LONG-TERM CURRENT USE OF INSULIN ([facility]) WRITTEN ON 03/15/2023 10:18 AM BY [...] modifications -Continue current medications Assessment & Plan (08/27/2025 10:31 AM EST): Orders: POCT Glucose insulin degludec (Tresiba FlexTouch) 100 UNIT/ML injection; Administer subcutaneously 32 units daily for 3 days, if fasting sugar >140 increase to 35 units daily Assessment & Plan (07/14/2025 3:42 PM EST): [...] missed last eye appointment in February with [facility]. Recommended to reschedule Foot exam: 01/14/25 Neuropathy; callus; previously written a script for diabetic footwear. She did not go to [employer]. Referred to wealth management advisor Assessment & Plan (02/12/2025 9:03 AM EDT): [...] Up coming eye appointment in February with [facility] Foot exam: 01/14/25 Neuropathy; callus; previously written a script for diabetic footwear. She did not go to [employer]. Referred to wealth management advisor Assessment & Plan (01/19/2025 10:36 PM EDT): [...] Up coming eye appointment in February with [facility] Foot exam: 01/14/25 Neuropathy; callus; previously written a script for diabetic footwear. She did not go to [employer]. Referred to wealth management advisor Assessment & Plan (01/13/2025 9:51 PM EDT): >>ASSESSMENT AND PLAN FOR TYPE 2 DIABETES MELLITUS, WITH LONG-TERM CURRENT USE OF INSULIN (CMS/[facility]) WRITTEN ON 08/25/2023 7:08 PM BY AZUL HOUSTON MD Hgb A1C 12.4% on 08/08/23. [...] profile: 04/04/22 Diabetic eye exam: Referred to [facility] care in the past; will check its status Foot exam: 08/08/23 Neuropathy; callus; previously written a script for diabetic footwear. She did not go to [employer]. Will refer to wealth management advisor Assessment & Plan (01/13/2025 9:51 PM EDT): >>ASSESSMENT AND PLAN FOR TYPE 2 DIABETES MELLITUS WITH HYPERGLYCEMIA (CMS/HCC) WRITTEN ON 09/27/2023 6:06 AM BY AZUL HOUSTON MD Hgb A1C 12.4% on 08/08/23. [...] profile: 04/04/22 Diabetic eye exam: Referred to [facility] care in the past; will check its status Foot exam: 08/08/23 Neuropathy; callus; previously written a script for diabetic footwear. She did not go to [employer]. Will refer to wealth management advisor >>ASSESSMENT AND PLAN FOR TYPE 2 DIABETES MELLITUS, WITH LONG-TERM CURRENT USE OF INSULIN ([facility]) WRITTEN ON 09/27/2023 6:06 AM BY AZUL HOUSTON MD Hgb A1C 12.4% on 08/08/23. [...] profile: 04/04/22 Diabetic eye exam: Referred to [facility] Eye care in the past; will check its status Foot exam: 08/08/23 Neuropathy; callus; previously written a script for diabetic footwear. She did not go to [employer]. Will refer to wealth management advisor Assessment & Plan (12/22/2022 5:56 AM EDT): [...] profile: 04/04/22 Diabetic eye exam: Referred to [facility] Eye care in the past; [...] profile: 04/04/22 Diabetic eye exam: Referred to [facility] Eye care in the past; [...] profile: 04/04/22 Diabetic eye exam: Referred to [facility] Eye care in the past; will check its status Foot exam: 08/18/22 Neuropathy; callus; written a script for diabetic footwear. Assessment & Plan (01/13/2025 9:51 PM EDT): >>ASSESSMENT AND PLAN FOR TYPE 2 DIABETES MELLITUS WITH HYPERGLYCEMIA ([facility]) WRITTEN ON 08/19/2022 10:52 AM BY AZUL HOUSTON MD Hgb A1C 15% on 08/18/22, [...] profile: 04/04/22 Diabetic eye exam: Referred to [facility] Eye care in the past; will check its status Foot exam: 08/18/22 Neuropathy; callus; will write a script for diabetic footwear. >>ASSESSMENT AND PLAN FOR TYPE 2 DIABETES MELLITUS, WITH LONG-TERM CURRENT USE OF INSULIN ([facility]) WRITTEN ON 08/19/2022 10:52 AM BY AZUL HOUSTON MD Hgb A1C 15% on 08/18/22, [...] profile: 04/04/22 Diabetic eye exam: Referred to [facility] Eye care in the past; [...] patch Agreed to restart tramadol Refer to EMS COORDINATOR wheel aligner & Plan (01/14/2025 11:14 AM EDT): Continue [...] & Plan (07/14/2025 3:52 PM EST): Neurologist: [facility], last seen in Jun 2023. Upcoming appointment. Current medication: Octrevus, started in May 2022 Flare-up frequency > 2x / year Last flare-up in Jun 2020, hospitalized in [facility], dexamathasone was not given due to concern for PML Last imaging studies: MRI brain / cervical spine in Jun 2024 at [facility] Followed by urologist for neurogenic bladder, recurrent [...] Last flare-up in Jun 2020, hospitalized in [facility], dexamathasone was not given due to concern for PML Last imaging studies: MRI brain / cervical spine in Jun 2024 at [facility] Followed by urologist for neurogenic bladder, recurrent [...] Last flare-up in Jun 2020, hospitalized in [facility], dexamathasone was not given due to concern for PML Last imaging studies: MRI brain / cervical spine in Jun 2024 at [facility] Followed by urologist for neurogenic bladder, recurrent UTI and recurrent kidney stone Treatment Hx: -Tysabri (Natalizumab) q4wks, 03/2020-05/2022 (Interruption due to concern for PML 06/2020-11/2020) -Gabapentin, pregabalin for pain, but discontinued due to side effect and ineffectiveness Pt was recommended to check with neurology office for MRI appt Assessment & Plan (09/27/2023 6:08 AM EST): Neurologist: [facility], last seen in Jun 2023 Current medication: Octrevus, started in May 2022 Flare-up frequency > 2x / year Last flare-up in Jun 2020, hospitalized in [facility], dexamathasone was not given due to concern for PML Last imaging studies: MRI brain / cervical spine in Apr 2022 at [facility] Followed by urologist for neurogenic bladder, recurrent UTI and recurrent kidney stone Treatment Hx: -Tysabri (Natalizumab) q4wks, 03/2020-05/2022 (Interruption due to concern for PML 06/2020-11/2020) -Gabapentin, pregabalin for pain, but discontinued due to side effect and ineffectiveness Pt was recommended to check with neurology office for MRI appt Assessment & Plan (08/25/2023 6:51 PM EST): Neurologist: [facility], last seen in Jun 2023 Current medication: Octrevus, started in May 2022 Flare-up frequency > 2x / year Last flare-up in Jun 2020, hospitalized in [facility], dexamathasone was not given due to concern for PML Last imaging studies: MRI brain / cervical spine in Apr 2022 at [facility] Followed by urologist for neurogenic bladder, recurrent UTI and recurrent kidney stone Treatment Hx: -Tysabri (Natalizumab) q4wks, 03/2020-05/2022 (Interruption due to concern for PML 06/2020-11/2020) -Gabapentin, pregabalin for pain, but discontinued due to side effect and ineffectiveness Pt was recommended to check with neurology office for MRI appt Assessment & Plan (12/22/2022 5:55 AM EDT): Neurologist: MILLER, last seen on 12/20/22 Current medication: Octrevus, started in May 2022, 2nd dose scheduled on 12/31/22 Flare-up frequency > 2x / year Last flare-up in Jun 2020, hospitalized in [facility], dexamathasone was not given due to concern for PML Last imaging studies: MRI brain / cervical spine in Apr 2022 at [facility] Followed by urologist for neurogenic bladder, recurrent UTI and recurrent kidney stone Treatment Hx: Tysabri (Natalizumab) q4wks, 03/2020-05/2022 (Interruption due to concern for PML 06/2020-11/2020) Copaxone (weight gain), aubagio (wt gain and hair loss), Gabapentin, pregabalin for pain, but discontinued due to side effect and ineffectiveness Assessment & Plan (10/03/2022 5:51 AM EST): Neurologist: MILLER, last seen on 05/12/22 Current medication: Octrevus, started in May 2022 Flare-up frequency > 2x / year Last flare-up in Jun 2020, hospitalized in [facility], dexamathasone was not given due to concern for PML Last imaging studies: MRI brain / cervical spine in Apr 2022 at [facility] Followed by urologist for neurogenic bladder, recurrent UTI and recurrent kidney stone Treatment Hx: Tysabri (Natalizumab) q4wks, 03/2020-05/2022 (Interruption due to concern for PML 06/2020-11/2020) Gabapentin, pregabalin for pain, but discontinued due to side effect and ineffectiveness Assessment & Plan (08/19/2022 11:02 AM EST): Neurologist: [facility], last seen on 04/08/22 Current medication: Octrevus, started in May 2022 Flare-up frequency > 2x / year Last flare-up in Jun 2020, hospitalized in [facility], dexamathasone was not given due to concern for PML Last imaging studies: MRI brain / cervical spine in Apr 2022 at [facility] Followed by urologist for neurogenic [...] EDT): EMS called, patient presented to [facility] to the [facility] department Acute hyperglycemia 06/26/2024 01/20/20 Assessment & Plan (06/26/2024 12:15 PM EDT): EMS called, patient presented to [facility] to the [facility] emergency department Daytime somnolence 12/19/2018 2 Encounters * This document contains information received from the source organization and may not represent a complete record from that organization. Date Type Department Care Team Description 08/27/2025 9:45 AM EST Office Visit [facility] [place] [address] Aissatou To NP Abnormal thyroid function test (Primary Dx); Type 2 diabetes mellitus with hyperglycemia, with long-term current use of insulin (HCC); Other constipation; Onychomycosis 08/27/2025 Travel 08/26/[address] [facility] [place] [address] Azul Houston MD Chart Prep 08/25/[address] [facility] [place] [address] Azul Houston MD Paperwork/Forms 08/25/[address] [facility] [place] [address] Azul Houston MD Epigastric pain; Posttraumatic stress disorder 08/25/[address] [facility] [address] [facility] [place] [address] Samantha Lima ANP Epigastric pain 08/22/[address] [facility] [address] [facility] [place] [address] Azul Houston MD PT1 08/19/[address] [facility] [place] [address] Azul Houston MD 08/19/2025 Patient Outreach [facility] [address] [address] Azul Houston MD 08/19/2025 Refill [facility] [place] [address] Azul Houston MD 08/14/2025 Orders Only [facility] [place] [address] Jhony Berger MD 08/13/[address] [place], [place] [phone] Azul Houston MD ER Follow-up; Nurse Triage 08/11/2025 Refill [facility] [address] [place] [address] Alva Frias RN Chronic bilateral low back pain, unspecified whether sciatica present 08/11/2025 Travel 08/11/[address] [address] Azul Houston MD Med Refill 08/11/[address] [address] Azul Houston MD Med Refill 08/05/[address] [place] [address] Azul Houston MD Appointment Request 08/05/[address] [address] Neha Mondragon, WINDOW DECORATOR Follow-up 08/04/2025 1:30 PM EST Clinical Support [facility] [place] [address] Soumya Bagley, LUCIUS Hypertension, unspecified type 08/04/2025 Travel 08/04/[address] [facility] [place] [address] Felicia Cash MA 08/01/2025 Orders Only [facility] External Provider, [facility] 08/01/2025 Travel 07/29/2025 Telephone [facility] [place] [address] Azul Houston MD Appointment Request 07/29/2025 Telephone [facility] [place] [address] Azul Houston MD Med Refill 07/29/2025 Refill [facility] [place] [address] Azul Houston MD Epigastric pain 07/24/2025 Refill [facility] [place] [address] Azul Houston MD 07/23/2025 Results Follow-Up [facility] [place] [address] Samantha Lima ANP Culture, Urine, Routine 07/21/2025 1:00 PM EST Office Visit [facility] [place] [address] Samantha Lima ANP Type 2 diabetes mellitus with hyperglycemia, with long-term current use of insulin ([facility]) (Primary Dx); Hypoglycemia; MDD (major depressive disorder), recurrent severe, without psychosis (CMS/HCC) (HCC); Mood disorder (CMS/HCC); Malodorous urine; Constipation, unspecified constipation type; Polypharmacy 07/21/2025 Orders Only [facility] [place] [address] Samantha Lima ANP 07/21/2025 Telephone [facility] [place] [address] Neha Mondragon RNexamination proctor 07/21/2025 Travel 07/18/2025 Telephone [facility] [place] [address] Azul Houston MD appt request 07/18/2025 Telephone [facility] [place] [address] Samantha Lima ANP chart prep 07/17/2025 Patient Outreach [facility] [place] [address] Azul Houston MD Care Coordination ([address] Aminata York telephone call outreach) 07/17/2025 Patient Outreach [facility] [place] [address] Azul Houston MD 07/17/[address] [address] Azul Houston MD Nurse Triage 07/15/[address] [facility] [place] [address] zAul Houston MD Neuropathy 07/14/2025 1:00 PM EST Office Visit [facility] [place] [address] Samantha Lima ANP Multiple allergies (Primary Dx); Encounter for immunization; Posttraumatic stress disorder; MDD (major depressive disorder), recurrent severe, without psychosis (CMS/HCC) (HCC); Mood disorder (CMS/HCC); Epigastric pain; Abnormal thyroid function test; History of pulmonary embolus (PE); History of DVT (deep vein thrombosis); Constipation, unspecified constipation type 07/14/2025 Telephone [facility] [address] [place] [address] Avla Frias RN 07/14/[address] [facility] [address] [place] [address] Samantha Lima ANP Epigastric pain 07/14/2025 Patient Outreach [facility] [address] [place] [address] Azul Houston MD 07/14/2025 Travel 07/14/2025 Patient Outreach [facility] [address] [place] [address] Azul Houston MD Care Management (C3CM- F/U call) 07/14/[address] [facility] [address] [place] [address] Azul Houston MD Nurse Triage 07/09/[address] [facility] [address] [place] [address] Lorie Goncalves MD Type 2 diabetes mellitus with hyperglycemia (HCC) 07/07/[address] [address] Azul Houston MD fyi 07/03/2025 11:15 AM EDT Office Visit [facility] [address] [place] [address] Azul Houston MD Hypertension, unspecified type (Primary Dx); [...] disorder; Tobacco use 07/03/2025 Travel 07/02/[address] [address] Azul Houston MD chart prep 07/02/[address] [facility] [address] [place] [address] Azul Houston MD Multiple sclerosis (Primary Dx) 06/27/2025 Orders Only [facility] [address] [place] [address] Jhony Berger MD 06/27/[address] [address] Azul Houston MD glucose monitor 06/26/[address] [facility] [address] [place] [address] Azul Houston MD Transitin of care 06/24/[address] [facility] [address] [place] [address] Katharine Carbone, ZAHIDA 06/23/2025 Patient Outreach [facility] [address] [place], [place] [phone] Azul Houston MD RN telehealth 06/17/[address] [facility] [address] [place] [address] Soumya Bagley RN ER Follow-up 06/16/2025 Telephone [facility] [address] [place] [address] Azul Huoston MD [employer] telehealth 06/10/[address] [address] Azul Houston MD telephone call 06/06/2025 Patient Outreach [address] [address] Azul Houston MD 06/06/2025 Patient Outreach [address] [address] Azul Houston MD 06/03/2025 Patient Outreach [address] [address] Azul Houston MD Transition Of Care (Tcm) (HDF- Unscheduled -LVM) 06/02/[address] [address] Azul Houston MD No Show 06/02/2025 Patient Outreach [address] [address] Azul Houston MD 06/02/2025 Patient Outreach [address] [address] Azul Houston MD 05/30/[address] [facility] [address] [place] [address] Felicia Cash MA 05/30/2025 Orders Only GENERIC EXTERNAL DATA DEPARTMENT Provider, Generic External Data 05/28/2025 10:00 AM EDT Office Visit [address] [address] Wojciech Hodges MD Substance use disorder (Primary Dx) 05/28/2025 Travel from Last 3 Months Immunizations Immunization Administration [...] Mass Index 34.46 08/27/2025 10:15 AM EST Plan of Treatment Upcoming Encounters Date Type Department Care Team (Late st Contact Info) Description 09/19/2025 10:30 AM EST Clinical Support [facility] [address] [place] [address] Alva Frias, LUCIUS [address] [place] [address] 09/30/2025 10:45 AM EST Office Visit [facility] [address] [place] [address] Azul Houston MD [address] [place] [address] 10/23/2025 1:00 PM EST Office [address] [facility] [address] [place] [address] Jason Carbonen, OD [address] [place] [address] Health Maintenance Due Date Last Done Comments CT Colonography 1972 Colonoscopy 1972 Colorectal Cancer Screening 1972 FIT DNA/Cologuard 1972 FIT 1972 FOBT 1972 Sigmoidoscopy 1972 Eye Exam 1982 Family Planning (PISQ) 12/22/1987 Pap Smear 1993 Mammogram 07/24/2022 07/24/2020, 07/12, 07/24/2020, Additional history exists RSV Patients and Patients Aged 60 years or older (1 - Risk 50-74 years 1-dose series) 2022 Zoster Vaccines (1 of 2) 2022 COVID-19 Vaccine ( season) 2025 10/28/2022, 03/04/2022, 03/04/2022, Additional history exists Depression Monitoring 07/02/2025 12/31/2024, 025 Cervical Cancer Screening 08/25/2025 HPV/Cotest 08/25/2025 08/25/2020, 04/24/2019 Diabetes: Hemoglobin A1C 11/11/2025 025, 07/03/2025, 01/14/2025, Additional history exists Alcohol/Substance Use Screening 01/14/2026 01/14/2025 Diabetes: Foot Exam 01/14/2026 01/14/2025, 01/14/2025, 01/14/2025, Additional history exists Diabetes: Urine Protein Screening 01/14/2026 01/14/2025, 08/08/2023, 04/04/2022, Additional history exists Disability Screening 01/14/2026 01/14/2025 Lipid Panel 01/14/2026 01/14/2025, 07/13, 04/04/2022, Additional history exists SDOH Screening 01/14/2026 01/14/2025 Tobacco Screening 08/27/2026 08/27/2025 DTaP/Tdap/Td Vaccines (4 - Td or Tdap) [...] on patient's age to complete this topic Goals Goal Patient Goal Type Associated Problems [...] Care Plan Weekly blood pressure task No [facility] Weekly blood pressure task Care Plan Weekly blood pressure task No [facility] Patient has chronic kidney disease Care Plan Patient has chronic kidney disease No [facility] Patient has chronic kidney disease Care Plan Patient has chronic kidney disease No [facility] Weekly blood pressure task Care [...] Care Plan Weekly blood pressure task No Salas, Gustavo Weekly blood pressure task Care Plan Weekly blood pressure task No Salas Gustavo Patient has chronic kidney disease Care Plan Patient has chronic kidney disease No Salas Gustavo Patient has chronic kidney disease Care Plan Patient has chronic kidney disease No Salas Gustavo Weekly blood pressure task Care Plan Weekly blood pressure task No Salas Gustavo Weekly blood pressure task Care Plan Weekly blood pressure task No Salas Gustavo Patient has chronic kidney disease Care Plan Patient has chronic kidney disease No Salas Gustavo Patient has chronic kidney disease Care Plan Patient has chronic kidney disease No Salas Gustavo Weekly blood pressure task Care Plan Weekly [...] blood pressure task No Angel Sanchez, RN Weekly blood pressure task Care Plan Weekly blood pressure task No Angel Sanchez, RN Patient has chronic kidney disease Care Plan Patient has chronic kidney disease No Angel Sanchez, RN Patient has chronic kidney disease Care Plan Patient has chronic kidney disease No Angel Sanchez, RN Weekly blood pressure task Care Plan Weekly blood pressure task No Colon York Katie Weekly blood pressure task Care Plan Weekly blood pressure task No Colon York, Katie Patient has chronic kidney disease Care Plan Patient has chronic kidney disease No Colon York, Katie Patient has chronic kidney disease Care Plan Patient has chronic kidney disease No Colon York Katie Weekly blood pressure task Care Plan Weekly blood pressure task No Colon York, Katie Weekly blood pressure task Care Plan Weekly blood pressure task No Colon York, Katie Patient has chronic kidney disease Care Plan Patient has chronic kidney disease No Colon Jaylen Katie Patient has chronic kidney disease Care Plan Patient has chronic kidney disease No Colon York Katie Weekly blood pressure task Care Plan [...] Care Plan Weekly blood pressure task No Gustavo Salas Weekly blood pressure task Care Plan Weekly blood pressure task No Gustavo Salas Patient has chronic kidney disease Care Plan Patient has chronic kidney disease No Gustavo Salas Patient has chronic kidney disease Care Plan Patient has chronic kidney disease No Gustavo Salas Weekly blood pressure task Care Plan Weekly [...] Care Plan Weekly blood pressure task No Gustavo Salas Weekly blood pressure task Care Plan Weekly blood pressure task No Gustavo Salas Patient has chronic kidney disease Care Plan Patient has chronic kidney disease No Gustavo Salas Patient has chronic kidney disease Care Plan Patient has chronic kidney disease No Gustavo Salas Weekly blood pressure task Care Plan Weekly [...] Care Plan Weekly blood pressure task No YorkAminata cardona Weekly blood pressure task Care Plan Weekly [...] has chronic kidney disease No Ashlyn Yorkz Patient has chronic kidney disease Care Plan [...] blood pressure task No Hi Cort[place], PharmMarvin Weekly blood pressure task Care Plan [...] kidney disease No Jose E Lowe MA Procedures Procedure Name Priority Date/Time Associated Diagnosis Comments POCT GLUCOSE Routine 08/27/2025 10:19 AM EST Type 2 diabetes mellitus with hyperglycemia, with long-term current use of insulin (HCC) CT ABDOMEN PELVIS WO CONTRAST Routine 08/13/2025 URINALYSIS WITH REFLEX MICROSCOPIC Routine 08/01/2025 6:03 PM EST COMPREHENSIVE METABOLIC PANEL Routine 08/01/2025 4:06 PM EST CBC WITH AUTO DIFFERENTIAL Routine 08/01/2025 4:[address] ABDOMEN PELVIS WO CONTRAST Routine 08/01/2025 3:26 PM EST ECG 12-LEAD Routine 07/28/2025 4:16 PM EST Primary hypertension CULTURE, URINE, ROUTINE Routine 07/21/2025 1:41 PM EST POCT URINALYSIS DIPSTICK Routine 07/21/2025 1:05 PM EST Malodorous urine POCT GLUCOSE Routine 07/21/2025 12:56 PM EST Type 2 diabetes mellitus with hyperglycemia, with long-term current use of insulin (HCC) POCT GLYCOSYLATED HEMOGLOBIN (HGB A1C) Routine 07/03/2025 11:23 AM EDT Type 2 diabetes mellitus with hyperglycemia, with long-term current use of insulin (HCC) POCT GLUCOSE Routine 07/03/2025 11:22 AM EDT Type 2 diabetes mellitus with hyperglycemia, with long-term current use of insulin (HCC) CT ABDOMEN PELVIS WO CONTRAST Routine 06/25/2025 12:08 PM EDT XR KNEE 4+ VIEWS LEFT Routine 05/31/2025 2:18 PM EDT NM LUNG PERFUSION Routine 05/30/2025 1:2 9 PM EDT XR CHEST 1 VIEW Routine 05/30/2025 1:13 PM EDT VENOUS BLOOD GAS Routine 05/30/2025 12:1 5 PM EDT BETA-HYDROXYBUTYRATE Routine 05/30/2025 12:00 PM EDT HEPATITIS C AB W/REFL TO HCV RNA, QN, PCR Routine 01/14/2025 11:56 AM EDT Routine screening for STI (sexually transmitted infection) HIV 1/2 ANTIGEN/ANTIBODY, FOURTH GENERATION W/RFL Routine 01/14/2025 11:56 AM EDT Routine screening for STI (sexually transmitted infection) ALBUMIN, RANDOM URINE W/CREATININE Routine 01/14/2025 11:56 AM EDT Type 2 diabetes mellitus with hyperglycemia, with long-term current use of insulin ([facility]) Dyslipidemia LIPID PANEL WITH REFLEX TO DIRECT LDL Routine 01/14/2025 11:56 AM EDT Type 2 diabetes mellitus with hyperglycemia, with long-term current use of insulin ([facility]) Dyslipidemia ZZZ HISTORICAL HPV E6/E7 RFLX VENU 16 18/45 Routine 08/25/2020 11:45 AM EST MAMMOGRAM GENERIC Routine 07/24/2020 10: 40 AM EST from Last 3 Months or Most Recently Relevant to Health Maintenance Results * POCT Glucose (08/27/2025 10:19 AM EST) Only the most recent of3 resultswithin the time period is included. Glucose Blood, POC 134 60 - 200 mg/dL QC Media Lot # [id number] Lot# Expiration Date Blood Capillary blood specimen / Unknown 08/27/2025 10:19 AM EST Aissatou To NP POINT OF CARE TEST ENTER/EDIT OR DERABLES Final Result * CT Abdomen Pelvis w/o Contrast (08/13/2025) Only the most recent of3 resultswithin the time period is included. Anatomical Region Laterality Modality Body, Pelvis, Abdomen Computed T omography us Historical Provider MD MAURER CT PROCEDURES Final R esult * Urinalysis w/reflex microscopic (08/01/2025 6:03 PM EST) Color Urine Yellow [facility] Appearance Urine Clear [facility] PH 6.5 5.0 - 9.0 [facility] Glucose Urine UA Negative Negative mg/dL [facility] Urine Blood Negative Negative [facility] Specific Richey - Urine 1.010 1.005 - 1.025 [facility] Urine Protein Negative Neg-Trace mg/dL [facility] Urine Ketones Negative Negative mg/dL [facility] Nitrite Urine Negative Negative [facility] Leukocyte Esterase Urine Negative Negative [facility] 08/01/2025 6:03 PM EST 08/01/2025 6:07 PM EST Narrative [facility] - 08/01/2025 6:14 PM EST Urine, Clean Catch us Generic External Data Provider LAB URINE ORDERAB LES Final Result [facility] [address] [place] [address] [phone] * (ABNORMAL) CBC auto differential (08/01/2025 4:06 PM EST) White Blood Count 6.5 4.8 - 10.8 X10*3/uL [facility] Red Blood Count 4.61 4.20 - 5.50 X10*6/uL [facility] Hemoglobin 13.2 12.0 - 16.0 g/dl [facility] Hematocrit 39.5 37.0 - 47.0 % [facility] Mean Corpuscular Volume 85.7 80.0 - 98.0 fL [facility] Mean Corpuscular Hemoglobin 28.6 27.0 - 33.0 pg [facility] Mean Corpuscular HGB Conc 33.4 31.0 - 35.0 g/dl [facility] Red Cell Distribution Width 12.1 11.0 - 16.0 % [facility] Platelet Count 231 160 - 400 X10*3/uL [facility] Mean Platelet Volume 9.4 9.4 - 12.3 fL [facility] Neutrophils Percent Auto 48.7 45 - 73 % [facility] Imm Gran Pct Auto 0.2 0.0 - 0.4 % [facility] Lymphocytes Percent Auto 38.3 20 - 40 % [facility] Monocytes Percent Auto 6.3 2 - 11 % [facility] Eosinophils Percent Auto 5.4(H) 0 - 4 % [facility] Basophils Percent Auto 1.1 0 - 2 % [facility] NRBC Pct Auto 0.0 0.0 - 0.2 /100WBC [facility] Neutrophils Absolute Auto 3.2 2.0 - 8.3 x10*3/uL [facility] Imm Gran Abs Auto 0.01 0.00 - 0.03 X10*3/uL [facility] Lymphocytes Absolute Auto 2.5 1.2 - 4.9 X10*3/uL [facility] Monocytes Absolute Auto 0.4 0.1 - 1.2 X10*3/uL [facility] Eosinophils Absolute Auto 0.4 0.0 - 0.4 X10*3/uL [facility] Basophils Absolute Auto 0.1 0.0 - 0.2 X10*3/uL [facility] NRBC Abs Auto 0.000 0.0 - 0.012 X10*3/uL [facility] 08/01/2025 4:06 PM EST 08/01/2025 4:13 PM EST us Generic External Data Provider LAB BLOOD ORDERAB LES Final Result [facility] [address] [place] [address] [phone] * (ABNORMAL) Comprehensive Metabolic Panel (08/01/2025 4:06 PM EST) Sodium 142 135 - 145 mmol/L [facility] Potassium 3.5 3.3 - 5.1 mmol/L [facility] Chloride 109(H) 96 - 108 mmol/L [facility] Carbon Dioxide 26 22 - 29 mmol/L [facility] Anion Gap 11(L) 12 - 20 [facility] Urea Nitrogen (BUN) 18(H) 9 - 16 mg/dL [facility] Creatinine, Serum 0.75 0.5 - 1.4 mg/dL [facility] Creatinine Clr Calc Pharmacy 86.4 [facility] Comment:Provided height and weight: 157.48 cm,80.8 kg.eGFR (calculated from the MDRD study equation) and eCrCl(calculated from the Cockcroft-Gault equation) are based ondifferent parameters and may not yield comparable results.If eCrCl result is absurd, please check patient'sheight/weight. Estimated Glomerular Filt Rate >60 [facility] Comment:Chronic Kidney Disea se: Estimated GFR < 60 mL/min/1.01w7Bnsnil Kidney Disease: Estimated GFR < 15 mL/min/1.73m2 Glucose 89 60 - 115 mg/dL [facility] Calcium 9.3 8.4 - 10.2 mg/dL [facility] Bilirubin, Total 0.4 0.0 - 1.0 mg/dL [facility] Aspartate Amino Transferase 24 5 - 31 U/L [facility] Alanine Aminotransferase 22 0 - 31 U/L [facility] Total Protein 7.1 6.5 - 8.0 g/dL [facility] Albumin Level 4.4 3.5 - 5.0 g/dL [facility] Alkaline Phosphatase 72 39 - 117 U/L [facility] 08/01/2025 4:06 PM EST 08/01/2025 4:13 PM EST Generic External Data Provider LAB BLOOD ORDERAB LES Final Result [facility] [address] [place] [phone] * ECG 12 lead (07/28/2025 4:16 PM EST) Narrative [facility] - 07/28/2025 4:16 PM EST NSR. See scanned report [facility] ECG ORDERABLES Final Result * Culture, Urine, Routine (07/21/2025 1:41 PM EST) Urine Urine specimen obtained by clean catch procedure / Unknown 07/21/2025 1:41 PM EST 07/21/2025 6:10 PM EST Comment:UACC Narrative [facility] - 07/23/2025 10:15 AM EST Urine Culture Report Result Urine Culture 10,000 to 50,000 cfu/ml Urine Culture Mixed bacterial kole characteristic of Urine Culture urogenital contamination. Specimen Source: Urine clean catch Samantha [facility] MICROBIOLOGY - GENERAL ORDER MICHAEL Final Result [facility] [facility] [address] [place] [phone] * POCT Urinalysis (07/21/2025 1:05 PM EST) Color, UA Yellow Clarity, UA Clear Glucose, UA Negative Bilirubin, UA Negative Ketones, UA Negative Spec Grav, UA 1.015 Blood, UA Negative Negative, None Detected pH, UA 5.5 Protein, UA Negative Urobilinogen, UA 0.2 Leukocytes, UA Negative Negative, Rare, Trace Nitrite, UA Negative Negative, None Detected QC Media Lot # [id number] Lot# Expiration Date [id number] Urine (Urine, Random) 07/21/2025 1:05 PM EST Samantha WAGNER POINT OF CARE TEST ENTER/EDIT OR DERABLES Final Result * (ABNORMAL) POCT glycosylated hemoglobin (Hgb A1c) (07/03/2025 11:23 AM EDT) Hemoglobin A1C 10.9(A) 4.0 - 5.7 % QC Media Lot # [id number] Lot# Expiration Date [id number] Blood Capillary blood specimen / Unknown 07/03/2025 11:23 AM EDT Azul Houston MD POINT OF CARE TEST ENTER/EDIT OR DERABLES Final Result * XR Knee 4+ Views Left (05/31/2025 2:18 PM EDT) Anatomical Region Laterality Modality Lower Extremities, Knee Left Radiogra phic Imaging 05/31/2025 2:18 PM EDT Narrative 05/31/2025 2:19 PM EDT [address] [address] XRay Report Signed Patient: Emily Tucker MR#: [id number] : 1970 Acct:[id number] Age/Sex: 54 / F ADM Date: 05/30/25 Loc: [facility] 482-[address]: Petra Reza MD Ordering Physician: Petra Reza MD Date of Service: 05/31/25 Procedure(s): XR knee LT 4V Accession Number(s): [id number] cc: Azul Houston MD; Petra Reza MD Reason for [...] 05/31/25 1419 DD/ 1418 TD/TT: 05/31/25 1418 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: Procedure Note Donotuseinterpreter, Image - 05/31/[address] [address] XRay Report Signed Patient: Emily TuckerMR#: [id number] : 1970Acct:[id number] Age/Sex: 54 / FADM Date: 05/30/25 Loc: [facility] 482-[address]: Petra Reza MD Ordering Physician: Petra Reza MD Date of Service: 05/31/25 Procedure(s): XR knee LT 4V Accession Number(s): [id number] cc: Azul Houston MD; Petra Reza MD Reason for [...] OV> 05/31/25 1419 DD/ 1418 TD/TT: 05/31/25 141 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: [employer] External Provider IMG XR PROCEDURES Edited Result - Final * NM Lung Perfusion (05/30/2025 1:29 PM EDT) Anatomical Region Laterality Modality Body Nuclear Medicine 05/30/2025 1:29 PM EDT Narrative 05/30/2025 2:42 PM EDT [address] [address] Nuclear Medicine Report Signed Patient: Emily Tucker MR#: [id number] : 1970 Acct:[id number] Age/Sex: 54 / F ADM Date: 05/30/25 Loc: [facility]: Kinjal FARR Ordering Physician: Valencia Lora Date of Service: 05/30/25 Procedure(s): NM pul perfusion Accession Number(s): [id number] cc: Valencia Lora; Azul Houston MD Reason for Exam: V/Q scan [...] no significant change from the prior study. ORDER #: NM/NM pul perfusion IMPRESSION: Pulmonary embolism is absent. Electronically signed by: Armand Maldonado MD 05/30/2025 02:39 PM EDT Dictated By: Armand Maldonado MD Signed By: <Electronically signed by Armand Maldonado MD in OV> 05/30/25 1439 DD/ 1329 TD/TT: 05/30/25 1425 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: Procedure Note Donotuseinterpreter, Image - 05/30/[address] [address] Nuclear Medicine Report Signed Patient: Maclolm Tucker#: [id number] : 1970Acct:[id number] Age/Sex: 54 / FADM Date: 05/30/25 Loc: [facility]: Kinjal FARR Ordering Physician: Valencia Lora Date of Service: 05/30/25 Procedure(s): NM pul perfusion Accession Number(s): [id number] cc: Valencia Lora; Azul Houston MD Reason for Exam: V/Q scan [...] no significant change from the prior study. ORDER #: NM/NM pul perfusion IMPRESSION: Pulmonary embolism is absent. Electronically signed by: Armand Maldonado MD 05/30/2025 02:39 PM EDT RP Dictated By: Armand Maldonado MD Signed By: <Electronically signed by Armand Maldonado MD in OV> 05/30/25 1439 DD/ 1329 TD/TT: 05/30/25 1425 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: [employer] External Provider IMG NM PROCEDURES Edited Result - Final * XR Chest 1 View (05/30/2025 1:13 PM EDT) Anatomical Region Laterality Modality Chest Radiographic Stephanie ging 05/30/2025 1:13 PM EDT Narrative 05/30/2025 1:46 PM EDT [address] [address] XRay Report Signed Patient: Emily Tucker MR#: [id number] : 1970 Acct:[id number] Age/Sex: 54 / F ADM Date: 05/30/25 Loc: .ED Attending Dr: Ordering Physician: Valencia Lora Date of Service: 05/30/25 Procedure(s): XR chest 1V Accession Number(s): [id number] cc: Valencia Lora; Azul Houston MD Reason for Exam: cp sob [...] 05/30/25 1343 DD/ 1313 TD/TT: 05/30/25 1322 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: Procedure Note Donotuseinterpreter, Image - 05/30/[address] [address] XRay Report Signed Patient: Emily TuckerMR#: [id number] : 1970Acct:[id number] Age/Sex: 54 / FADM Date: 05/30/25 Loc: HO.ED Attending Dr: Ordering Physician: Valencia Lora Date of Service: 05/30/25 Procedure(s): XR chest 1V Accession Number(s): [id number] cc: Valencia Lora; Azul Houston MD Reason for Exam: cp sob [...] 05/30/25 1343 DD/ 1313 TD/TT: 05/30/25 1322 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: [employer] External Provider IMG XR PROCEDURES Edited Result - Final * (ABNORMAL) VENOUS BLOOD GAS (05/30/2025 12:15 PM EDT) VBG pH 7.39 7.32 - 7.43 [facility] Comment:METER #: [id number] additional_comment: Cb mcmullic VBG PCO2 30 mmHg [facility] Comment:METER #: [id number] additional_comment: Cb mcmullic VBG PO2 101 mmHg [facility] Comment:METER #: [id number] additional_comment: Cb mcmullic VBG Base Excess -4.4 mmol/L [facility] Comment:METER #: [id number] additional_comment: Dayday contreras VBG HCO3 19(L) 22 - 26 mmol/L [facility] Comment:METER #: [id number] additional_comment: Dayday contreras O2 Sat, Reji 99.0 % [facility] Comment:METER #: [id number] additional_comment: Cb ben 05/30/2025 12:1 5 PM EDT 05/30/2025 12:18 PM EDT us Generic External Data Provider LAB BLOOD ORDERAB LES Final Result Performing Organization Address [facility]/ZIP Co de Phone Number [facility] [address] [place] [phone] * (ABNORMAL) Beta-Hydroxybutyrate (05/30/2025 12:00 PM EDT) Beta-Hydroxybu tyrate 1.93(H) 0.02 - 0.27 mmol/L [facility] 05/30/2025 12:0 0 PM EDT 05/30/2025 12:10 PM EDT us Generic External Data Provider LAB BLOOD ORDERAB LES Final Result Performing Organization Address City/[facility]/ZIP Co de Phone Number [facility] [address] [place] [phone] * (ABNORMAL) Lipid Panel with Reflex to Direct LDL (01/14/2025 11:56 AM EDT) Triglycerides 133 <150 mg/dL [facility] Comment:Desirable Triglyceri de: less than 150 mg/dLBorderline High Triglyceride 150-199 mg/dLHigh Triglyceride: 200-499 mg/dLVery High Triglyceride: greater than or equal to 5OO mg/dL Cholesterol 226(H) <200 mg/dL [facility] Comment:Desirable Cholestero l: less than 200 mg/dLBorderline High Cholesterol: 200-239 mg/dLHigh Cholesterol: greater than 239 mg/dL LDL Cholesterol Calculated 116(H) <100 mg/dL [facility] Comment:Desirable LDL: less than 100 mg/dLNear Optimal/Above Optimal LDL: 110- 129 mg/dLBorderline High LDL: 130-159 mg/dLHigh LDL: 160-189 mg/dLVery High LDL: greater than or equal to 190 mg/dL HDL Cholesterol 84 >40 mg/dL [facility] Comment:Desirable HDL: great er than 40 mg/dL Note: This HDL assay may give artificially low results in patients with liver disease. Blood 01/14/2025 11:5 6 AM EDT 01/14/2025 1:25 PM EDT Azul Houston MD LAB BLOOD ORDERABLES Final Resul t Performing Organization Address [facility] Co de Phone Number [facility] [address] [place] [phone] * (ABNORMAL) Albumin, Random Urine W/Creatinine (01/14/2025 11:56 AM EDT) Creatinine, Urine 158.99 mg/dL [facility] Microalbumin Urine 66.0 mg/L [facility] Microalbum Creatinine Ratio Ur 41.5(H) <30 ug/mg cr [facility] Comment:Albumin/Creatinine R atio Reference Ranges: Normal: < 30 ug/mg creatinine Microalbuminuria: 30 - 300 ug/mg creatinineClinical Albuminuria: > 300 ug/mg creatinine Urine 01/14/2025 11:5 6 AM EDT 01/14/2025 1:07 PM EDT Azul Houston MD LAB URINE ORDERABLES Final Resul t Performing Organization Address [facility] Co de Phone Number [facility] [address] [place] [phone] * Hepatitis C Antibody with Reflex to HCV, RNA, Quantitative, Real-Time PCR (01/14/2025 11:56 AM EDT) Hepatitis C Antibody Nonreactive Nonreactive [facility] Comment:Antibodies to HCV no t detected; does not exclude early acuteHCV infection. Blood Venous blood specimen / Unknown 01/14/2025 11:56 AM EDT 01/14/2025 1:25 PM EDT us Azul Houston MD LAB BLOOD ORDERABLES Final Resul t Performing Organization Address City/[facility]/ZIP Co de Phone Number [facility] [address] [place] [phone] * HIV-1/2 Antigen and Antibodies, Fourth Generation, with Reflexes (01/14/2025 11:56 AM EDT) HIV AB/AG Nonreactive Nonreactive [facility] Comment:HIV-1 p24 Ag and/or HIV-1/HIV-2 Ab not detected.A test result that is nonreactive does not exclude thepossibility of exposure to or infection with HIV-1 and/orHIV-2. Nonreactive results in this assay for individualswith prior exposure to HIV-1 and/or HIV-2 may be due toantigen and antibody levels that are below the limit ofdetection of this assay.The [employer] HIV Ag/Ab Combo assay result andsupplemental assay results should be interpreted inconjunction with the patient's clinical presentation,history and other laboratory results. If the results areinconsistent with clinical evidence, additional testing issuggested to confirm the result. Blood Venous blood specimen / Unknown 01/14/2025 11:56 AM EDT 01/14/2025 1:25 PM EDT us Azul Houston MD LAB BLOOD ORDERABLES Final Resul t Performing Organization Address City/[facility]/ZIP Co de Phone Number [facility] [address] [place] [phone] * HPV E6/E7 RFLX VENU 16 18/45 (08/25/2020 11:45 AM EST) HPV mRNA E6/E7 rflx Not Detected Not Detected [facility] Comment: This test was performed using the APTIMA HPV Assay ([employer] This assay detects E6/E7 viral messenger RNA (mRNA) from 14 high-risk HPV types (16,18,31,33,35,39,45,51,52,56,58,59,66,68). The analytical performance characteristics of this assay have been determined by [employer]. The modifications have not been cleared or approved by the FDA. This assay has been validated pursuant to the CLIA regulations and is used for clinical purposes. THIS TEST WAS PERFORMED AT: [facility] [address] [place] [address] [address],[place] [address] ALDA NIXON MD 08/25/2020 11:4 5 AM EST Sarina Ann HISTORICAL/NON ORDERABLE LABS Fi nal Result Performing Organization Address City/State/[facility] Co de Phone Number [facility] [address] [place] [address] * Mammography Report 1 (07/24/2020 10:40 AM EST) Anatomical Region Laterality Modality Breast Bilateral Mammography 07/24/2020 10:4 0 AM EST Narrative 08/24/2020 12:06 PM EST Refer to the Notes tab for result details [facility] Procedure: Mammography Report 1 Procedure Note ProviderJhony MD - 12/03/2022 Refer to the Notes tab for result details [facility] Procedure: Mammography Report 1 Azul Houston MD IMG BI PROCEDURES Final Result from Last 3 Months or Most Recently Relevant to Health Maintenance Additional Health Concerns Active Problems Noted Date [...] 08/26/2025 Patient has chronic kidney disease 08/26/2025 Insurance [facility] C3 Care Teams Matrix Inspector Relationship Specialty Start Date End Date Azul Houston MD [address] [place], [place] [phone] PCP - General Family Medicine 04/25/19 Hi Cortez, PharmD [address] [place], [place] [phone] Pharmacist Pharmacy 08/04/25
--- OUTSIDE RECORDS SUMMARY | 2025-08-27 13:34 | XMS_ITS | Encounter Summary ---
Author Organization [employer] Address [address] [facility] 7 [place] [address] Care Team Providers Care Commercial Green Building Designer Name Role Phone Tyesha Rogers MD Primary Care Provider [phone] Hi Cortez PharmD Unavailable [phone] Reason for Visit * Reason Onset Date Comments Nurse Triage 07/04/2023 Encounter Details Date Type Department Care Team (Late st Contact Info) Description 07/04/2023 Telephone [facility] MEDIC[facility] [address] [place], [place] [phone] Tyesha Rogers MD [address] [place], [place] [phone] Nurse Triage Social History Tobacco Use Types [...] supposed to start the suboxone program at [facility] but, missedher appt. In May 2023 [...] on her way to Walk in at [facility]. I will send this note oliverio in [place] to let them know that pt. Will need a [facility] counselor present for appt. Pt. States that she will arrive to [facility] walk in around 1-130pm. Pt. Declining [...] Description 09/19/2025 10:30 AM EST Clinical Support [address] [address] Alva Frias RN [address] [place] [address] 09/30/2025 10:45 AM EST Office Visit [address] [phone] Tyesha Rogers MD [address] [place] [address] 10/23/2025 1:00 PM EST Office Visit [facility] OPTOMET[facility] [address] [place] [address] Raf, Katharine, OD [address] [place] [address] documented as of this encounter Visit Diagnoses Not on filedocumented in this encounter Additional Health Concerns Assessment Noted Time PHQ-9 Depression Total Score: 9 08/18/20 22 11:40 AM EST documented as of this encounter Care Teams Commercial Green Building Designer Relationship Specialty Start Date End Date Tyesha Rogers MD [address] [place] [address] [phone] PCP - General Family Medicine 04/25/19 Hi Cortez, PharmD [address] [place] [phone] Pharmacist Pharmacy 08/04/25 documented as of this encounter
[2025-08-28 04:02] LABS: HIV Num 1 0.08 S/CO (0.00-0.99)
[2025-08-28 05:03] LABS: Syphilis Screen Reactive (Nonreactive)
== END 2025-08-27 10:40 | disposition home or self-care (01) ==
LOC: HO.HHCL 10:39
PROVIDERS: Nurse Practitioner Family; Nurse Practitioner Primary Care; PCP Family Medicine; Visit Provider Nurse Practitioner Family
DX: Z11.3 Encounter for screening for infections with a predominantly sexual mode of transmission (principal); Z11.4 Encounter for screening for human immunodeficiency virus [HIV]; R94.6 Abnormal results of thyroid function studies
CPT/HCPCS: 36415; 84443; 86592; 86780; 87389

== ENCOUNTER 2025-09-08 17:41 | Outpatient (REF) | payer MEDICAID, SELFPAY ==
--- OUTSIDE RECORDS SUMMARY | 2025-09-08 13:45 | XMS_ITS | Encounter Summary ---
Author Organization [employer] Address [address] [place] [address] 7[address] [place] [address] Care Team Providers Care Production Crew Supervisor Name Role Phone Tyesha Rogers MD Primary Care Provider [phone] Hi Cortez PharmD Unavailable [phone] Reason for Referral * Imaging (Routine) - Pending Review Specialty Diagnoses / Procedures Referred By Zabrina ro Referred To Contact Radiology Diagnoses Recurrent kidney stones Procedures US BLADDER Tyesha Rogers MD [address] [place] [address] Phone: tel: fax: [address] [address] Phone: tel: fax: Referral ID Status Reason Start Date Expiration Date V isits Requested Visits Authorized [id number] Pending Review 09/08/2025 09/08/2026 1 1 * Imaging (Routine) - Pending Review Specialty Diagnoses / Procedures Referred By Zabrina ro Referred To Contact Radiology Diagnoses Recurrent kidney stones Procedures US RENAL BI Tyesha Rogers MD [address] [place] [address] Phone: tel: fax: [address] [address] Phone: tel: fax: Referral ID Status Reason Start Date Expiration Date V isits Requested Visits Authorized [id number] Pending Review 09/08/2025 09/08/2026 1 1 * Imaging (Routine) - Pending Review Specialty Diagnoses / Procedures Referred By Contac t Referred To Contact Radiology Diagnoses Pelvic pain in female Procedures US Pelvis Transvaginal Tyesha Rogers MD [address] [place], [place] Phone: tel: fax: [address] [address] Phone: tel: fax: Referral ID Status Reason Start Date Expiration Date V isits Requested Visits Authorized [id number] Pending Review 09/08/2025 09/08/2026 1 1 * Imaging (Routine) - Pending Review Specialty Diagnoses / Procedures Referred By Contac t Referred To Contact Radiology Diagnoses Pelvic pain in female Procedures Us Pelvis complete Tyesha Rogers MD [address] [place], [place] Phone: tel: fax: [address] [address] Phone: tel: fax: Referral ID Status Reason Start Date Expiration Date V isits Requested Visits Authorized [id number] Pending Review 09/08/2025 09/08/2026 1 1 Encounter Details Date Type Department Care Team (Late st Contact Info) Description 09/08/2025 1:45 PM EST Office Visit [facility] [address] [place] [address] Tyesha Rogers MD [address] [place] [address] Kidney stone (Primary Dx); Type 2 diabetes mellitus with hyperglycemia, with long-term current use of insulin (HCC); Left flank pain; Hypertension, unspecified type; Abnormal uterine bleeding (AUB); Perimenopause; Other constipation; Recurrent kidney stones; Pelvic pain in female Social History Tobacco Use Types Packs/Day Years Used Date Smoking Tobacco: Some Days Cigarettes Passive Smoke Exposure: Current Alcohol Use Standard Drinks/Week Comments Yes 0 (1 standard drink = 0.6 oz pur e alcohol) Depression Answer Date Recorded Patient Health Questionnaire-9 Score 24 09/08/2025 Patient Health Questionnaire-9 Score 24 09/08/2025 Last PHQ-9: Questionnaire Data Not on file [...] the past 12 months, has t he [employer], gas, oil or water Acumen threatened to shut off services in your home? No 12/11/2024 Depression Answer Date Recorded Patient Health Questionnaire-2 Score 6 09/08/2025 Internet Access Answer Date Recorded Internet Access [...] Sign Reading Time Taken Comments Blood Pressure 104/74 09/08/2025 1:21 PM EST Pulse 79 09/08/2025 1:21 PM EST Temperature 35.5 C (95.9 F) 09/08/2025 1:21 PM EST Respiratory Rate 19 09/08/2025 1:21 PM EST Oxygen Saturation 100% 09/08/2025 1:21 PM EST Inhaled Oxygen Concentration - - Weight 86.4 kg (190 lb 6.4 oz) 09/08/2025 1:21 P M EST Height - - Body Mass Index 34.82 08/27/2025 10:15 AM EST documented in this encounter Functional Status * Over the past 2 weeks, how often have you been bothered by any of the following problems? Question Answer Date of Assessment Author Patient Health Questionnaire -2 Score 6 09/08/2025 1:19 PM Anabel Montanez MA * Little interest or pleasure in doing things Answer Date of Assessment Author Nearly every day 09/08/2025 1:19 PM Cherelle Montanez MA * Feeling down, depressed, or hopeless Answer Date of Assessment Author Nearly every day 09/08/2025 1:19 PM Cherelle Montanez MA * Trouble falling or staying asleep, or sleeping too much Answer Date of Assessment Author Nearly every day 09/08/2025 1:19 PM Cherelle Montanez MA * Feeling tired or having little energy Answer Date of Assessment Author Nearly every day 09/08/2025 1:19 PM Cherelle Montanez MA * Poor appetite or overeating Answer Date of Assessment Author Nearly every day 09/08/2025 1:19 PM Cherelle Montanez MA * Feeling bad about yourself - or that you are a failure or have let yourself or your family down Answer Date of Assessment Author Nearly every day 09/08/2025 1:19 PM Cherelle Montanez MA * Trouble concentrating on things, such as reading the newspaper or watching television Answer Date of Assessment Author Nearly every day 09/08/2025 1:19 PM Cherelle Montanez MA * Moving or speaking so slowly that other people could have noticed? Or the opposite - being so fidgety or restless that you have been moving around a lot more than usual. Answer Date of Assessment Author Nearly every day 09/08/2025 1:19 PM Cherelle Montanez MA * Thoughts that you would be better off or hurting yourself in some way Answer Date of Assessment Author Not at all 09/08/2025 1:19 PM Cherelle Montanez MA * Patient Health Questionnaire-9 Score Answer Date of Assessment Author 24 09/08/2025 1:19 PM Cherelle Montanez MA * Over the last 2 weeks, how often have you been bothered by any of the following problems? Question Answer Date of Assessment Author Feeling nervous, anxious, or on edge 3 09/08/2025 1:20 PM Anabel Montanez MA Not being able to stop or control worrying 3 09/08/2025 1:20 PM Anabel Montanez MA Worrying too much about different things 3 09/08/2025 1:20 PM Anabel Montanez MA Trouble relaxing 3 09/08/2025 1:20 PM Cherelle Roberts MA Being so restless that it is hard to sit still 3 09/08/2025 1:20 PM Anabel Montanez MA Becoming easily annoyed or irritable 3 09/08/2025 1:20 PM Anabel Montanez MA Feeling afraid as if somethi ng awful might happen 2 09/08/2025 1:20 PM Anabel Montanez MA LUCILLE-7 Total Score 20 09/08/2025 1:20 PM Cherelle Montanez MA * How difficult have these problems made it for you to do your work, take care of things at home, or get along with other people? Answer Date of Assessment Author Not difficult at all 09/08/2025 1:19 PM Cherelle Wilson MA documented as of this encounter Plan of Treatment Upcoming Encounters Date Type Department Care Team (Late st Contact Info) Description 09/19/2025 10:30 AM EST Clinical Support [facility] [address] [place] [address] Alva Frias RN [address] [place] [address] 09/30/2025 10:45 AM EST Office Visit [facility] [address] [place] [address] Tyesha Rogers MD [address] [place] [address] 10/23/2025 1:00 PM EST Office Visit [facility] [address] [place] [address] Raf, Katharine, OD [address] [place] [address] Scheduled Orders Name Type Priority Associated Diagnoses Orde r Schedule Culture, Urine, Routine Microbiology Routine Kidney stone Left flank pain Expected: 09/08/2025 (Approximate), Expires: 09/08/2026 Us Pelvis complete Imaging Routine Pelvic pain in female Expected: 09/08/2025, Expires: 09/08/2026 US Pelvis Transvaginal Imaging Routine Pelvic pain in female Expected: 09/08/2025, Expires: 09/08/2026 US RENAL BI Imaging Routine Recurrent kidney stones Expected: 09/08/2025, Expires: 09/08/2026 US BLADDER Imaging Routine Recurrent kidney stones Expected: 09/08/2025, Expires: 09/08/2026 documented as of this encounter Goals Goal [...] Plan Patient has chronic kidney disease No Samnatha Lima ANP Weekly blood pressure task Care Plan Weekly blood pressure task No Samantha Lima ANP Patient has chronic kidney disease Care Plan Patient has chronic kidney disease No Samantha Lima ANP Weekly blood pressure task Care Plan Weekly blood pressure task No Marcy Hatch FNP Weekly blood pressure task Care Plan Weekly blood pressure task No Marcy Hatch, HERMELINDO Patient has chronic kidney disease Care Plan Patient has chronic kidney disease No Marcy Hatch FNP Patient has chronic kidney disease Care Plan Patient has chronic kidney disease No [place] Marcy, [facility] Weekly blood pressure task Care Plan Weekly blood pressure task No Dania Loaiza Weekly blood pressure task Care Plan Weekly blood pressure task No Dania Loaiza Patient has chronic kidney disease Care Plan Patient has chronic kidney disease No Dania Loaiza Patient has chronic kidney disease Care Plan Patient has chronic kidney disease No Dania Loaiza Weekly blood pressure task Care Plan Weekly blood pressure task No Dania Loaiza Weekly blood pressure task Care Plan Weekly blood pressure task No Dania Loaiza Patient has chronic kidney disease Care Plan Patient has chronic kidney disease No Dania Loaiza Patient has chronic kidney disease Care Plan Patient has chronic kidney disease No Dania Loaiza Weekly blood pressure task Care Plan Weekly blood pressure task No FranklynBiaRanda LIME VAT TENDER Weekly blood pressure task Care Plan Weekly blood pressure task No Franklyn Randa LIME VAT TENDER Patient has chronic kidney disease Care Plan Patient has chronic kidney disease No Franklyn Randa, LIME VAT TENDER Patient has chronic kidney disease Care Plan Patient has chronic kidney disease No Franklyn Randa, LIME VAT TENDER Weekly blood pressure task Care Plan Weekly [...] Plan Weekly blood pressure task No Colon Macey Yorkla Weekly blood pressure task Care Plan Weekly blood pressure task No Colon Jaylen Ktaie Patient has chronic kidney disease Care Plan [...] Plan Weekly blood pressure task No Mayra Basiloi Patient has chronic kidney disease Care Plan Patient has chronic kidney disease No BasilioBhavik bakersa Patient has chronic kidney [...] Plan Patient has chronic kidney disease No Jaylen, Aminata Patient has chronic kidney disease Care Plan Patient has chronic kidney disease No Jaylen, Aminata Weekly blood pressure task Care Plan Weekly blood pressure task No Aminata York Weekly blood pressure task Care Plan Weekly blood pressure task No Aminata York Patient has chronic kidney disease Care Plan Patient has chronic kidney disease No Jaylen, Aminata Patient has chronic kidney disease Care [...] Plan Patient has chronic kidney disease No Calero Umer Weekly blood pressure task Care Plan Weekly blood pressure task No Calero, Umer Weekly blood pressure task Care Plan Weekly blood pressure task No Calero, Umer Patient has chronic kidney disease Care Plan Patient has chronic kidney disease No Calero, Umer Patient has chronic kidney disease Care Plan Patient has chronic kidney disease No Calero Umer Weekly blood pressure task Care Plan [...] Weekly blood pressure task No Tati Neri, PharmD Patient has chronic kidney disease Care Plan Patient has chronic kidney disease No Tati Neri, PharmD Patient has chronic kidney disease Care Plan Patient has chronic kidney disease No Tati Neri, PharmD Weekly blood pressure task Care Plan Weekly blood pressure task No Jose E Lowe MA Weekly blood pressure task Care Plan Weekly blood pressure task No Jose E Lowe [place] Patient has chronic kidney disease Care Plan [...] Care Plan Weekly blood pressure task No Evangelina Garcia Weekly blood pressure task Care Plan Weekly blood pressure task No Evangelina Garcia Patient has chronic kidney disease Care Plan Patient has chronic kidney disease No Evangelina Garcia Patient has chronic kidney disease Care Plan Patient has chronic kidney disease No Evangelina Garcia Weekly blood pressure task Care Plan Weekly blood pressure task No Evangelina Garcia Weekly blood pressure task Care Plan Weekly blood pressure task No Evangelina Garcia Patient has chronic kidney disease Care Plan Patient has chronic kidney disease No Evangelina Garcia Patient has chronic kidney disease Care Plan Patient has chronic kidney disease No Evangelina Garcia Weekly blood pressure task Care Plan Weekly blood pressure task No Blessing Gilliland Weekly blood pressure task Care Plan Weekly blood pressure task No Blessing Gilliland Patient has chronic kidney disease Care Plan Patient has chronic kidney disease No Blessing Gilliland Patient has chronic kidney disease Care Plan Patient has chronic kidney disease No Blessing Gilliland Weekly blood pressure task Care Plan Weekly blood pressure task No Evangelina Garcia Weekly blood pressure task Care Plan Weekly blood pressure task No Evangelina Garcia Patient has chronic kidney disease Care Plan Patient has chronic kidney disease No Evangelina Garcia Patient has chronic kidney disease Care Plan Patient has chronic kidney disease No Evangelina Garcia Weekly blood pressure task Care Plan Weekly [...] Plan Weekly blood pressure task No Dania Loaiza Weekly blood pressure task Care Plan Weekly blood pressure task No Dania Loaiza Patient has chronic kidney disease Care Plan Patient has chronic kidney disease No Dania Loaiza Patient has chronic kidney disease Care Plan Patient has chronic kidney disease No Dania Loaiza Weekly blood pressure task Care Plan Weekly blood pressure task No Okhipo, Penelope, EXCEPTIONAL CHILDREN TEACHER ASSISTANT Weekly blood pressure task Care Plan Weekly blood pressure task No Okhipo, Penelope, EXCEPTIONAL CHILDREN TEACHER ASSISTANT Patient has chronic kidney disease Care Plan Patient has chronic kidney disease No Okhipo Penelope, EXCEPTIONAL CHILDREN TEACHER ASSISTANT Patient has chronic kidney disease Care Plan Patient has chronic kidney disease No Okhipo Penelope, EXCEPTIONAL CHILDREN TEACHER ASSISTANT Weekly blood pressure task Care Plan Weekly blood pressure task No Bren Gasca RN Weekly blood pressure task Care Plan Weekly blood pressure task No Bren Gasca, LUCIUS Patient has chronic kidney disease Care Plan Patient has chronic kidney disease No Bren Gasca RN Patient has chronic kidney disease Care Plan Patient has chronic kidney disease No Bren Gasca RN Weekly blood pressure task Care Plan Weekly blood pressure task No Cherelle Bolton MA Weekly blood pressure task Care Plan Weekly blood pressure task No Cherelle Bolton MA Patient has chronic kidney disease Care Plan Patient has chronic kidney disease No Cherelle Bolton MA Patient has chronic kidney disease Care Plan Patient has chronic kidney disease No Cherelle Bolton MA Weekly blood pressure task Care Plan Weekly blood pressure task No Kalyan Gilliland Weekly blood pressure task Care Plan Weekly blood pressure task No Kalyan Gilliland Patient has chronic kidney disease Care Plan Patient has chronic kidney disease No Kalyan Gilliland Patient has chronic kidney disease Care Plan Patient has chronic kidney disease No Kalyan Gilliland documented as of this encounter Procedures Procedure Name Priority Date/Time Associated Diagnosis Comments POCT URINALYSIS DIPSTICK Routine 09/08/2025 2:22 PM EST Type 2 diabetes mellitus with hyperglycemia, with long-term current use of insulin ([facility]) POCT GLUCOSE (CPT-10783) Routine 09/08/2025 1:23 PM EST Type 2 diabetes mellitus with hyperglycemia, with long-term current use of insulin ([facility]) documented in this encounter Results * (ABNORMAL) POCT urinalysis dipstick manually resulted (CPT 32203) (09/08/2025 2:22 PM EST) Color, UA Light Yellow Clarity, UA Clear Glucose, UA 2+ 125++ Comment:250 Bilirubin, UA Negative Ketones, UA Negative Spec Grav, UA 1.015 Blood, UA Positive(A) Negative, None Detected pH, UA 6.0 Protein, UA Negative Urobilinogen, UA 0.2 Leukocytes, UA Negative Negative, Rare, Trace, 1+ (17), 2+ (35), 3+ (70), Trace (15) Nitrite, UA Negative Negative, None Detected Appearance, UA clear QC Media Lot # [id number] Lot# Expiration Date Urine (Urine, Random) 09/08/2025 2:22 PM EST Tyesha Rogers MD POINT OF CARE TEST ENTER/EDIT OR DERABLES Final Result * (ABNORMAL) POCT glucose manually resulted (CPT-56654) (09/08/2025 1:23 PM EST) Glucose Blood, POC 341(A) 60 - 200 mg/dL QC Media Lot # [id number] Lot# Expiration Date Blood Capillary blood specimen / Unknown 09/08/2025 1:23 PM EST Tyesha Rogers MD POINT OF CARE TEST ENTER/EDIT OR DERABLES Final Result documented in this encounter Visit Diagnoses Diagnosis Kidney stone- Primary Calculus of kidney Type 2 diabetes mellitus with hyperglycemia, with long-term current use of insulin (HCC) Left flank pain Abdominal pain, unspecified site Hypertension, unspecified type Abnormal uterine bleeding (AUB) Perimenopause Symptomatic menopausal or female climacteric states Other constipation Recurrent kidney stones Pelvic pain in female Unspecified symptom associated with female genital organs documented in this encounter Additional Health Concerns [...] kidney disease 08/26/2025 Weekly blood pressure task 08/27/2025 Weekly blood pressure task 08/27/2025 Patient has chronic kidney disease 08/27/2025 Patient has chronic kidney disease 08/27/2025 Weekly blood pressure task 08/27/2025 Weekly blood pressure task 08/27/2025 Patient has chronic kidney disease 08/27/2025 Patient has chronic kidney disease 08/27/2025 Weekly blood pressure task 08/27/2025 Weekly blood pressure task 08/27/2025 Patient has chronic kidney disease 08/27/2025 Patient has chronic kidney disease 08/27/2025 Weekly blood pressure task 08/27/2025 Weekly blood pressure task 08/27/2025 Patient has chronic kidney disease 08/27/2025 Patient has chronic kidney disease 08/27/2025 Weekly blood pressure task 09/01/2025 Weekly blood pressure task 09/01/2025 Patient has chronic kidney disease 09/01/2025 Patient has chronic kidney disease 09/01/2025 Weekly blood pressure task 09/02/2025 Weekly blood pressure task 09/02/2025 Patient has chronic kidney disease 09/02/2025 Patient has chronic kidney disease 09/02/2025 Weekly blood pressure task 09/02/2025 Weekly blood pressure task 09/02/2025 Patient has chronic kidney disease 09/02/2025 Patient has chronic kidney disease 09/02/2025 Weekly blood pressure task 09/07/2025 Weekly blood pressure task 09/07/2025 Patient has chronic kidney disease 09/07/2025 Patient has chronic kidney disease 09/07/2025 Weekly blood pressure task 09/08/2025 Weekly blood pressure task 09/08/2025 Patient has chronic kidney disease 09/08/2025 Patient has chronic kidney disease 09/08/2025 Weekly blood pressure task 09/08/2025 Weekly blood pressure task 09/08/2025 Patient has chronic kidney disease 09/08/2025 Patient has chronic kidney disease 09/08/2025 Weekly blood pressure task 09/08/2025 Weekly blood pressure task 09/08/2025 Patient has chronic kidney disease 09/08/2025 Patient has chronic kidney disease 09/08/2025 Assessment Noted Time PHQ-9 Depression Total Score: 24 025 1:19 PM EST documented as of this encounter Care Teams Production Crew Supervisor Relationship Specialty Start Date End Date Tyesha Rogers MD [address] [place] [address] PCP - General Family Medicine 04/25/19 Hi Cortez, Yehuda [address] [place] [address] Pharmacist Pharmacy 08/04/25 documented as of this encounter
--- OUTSIDE RECORDS SUMMARY | 2025-09-08 18:12 | XMS_ITS | Encounter Summary ---
Author Organization [employer] Address [address] [facility] [address] [place] [address] Care Team Providers Care Billiard Table Repairer Name Role Phone Tyesha Rogers MD Primary Care Provider [phone] Hi Cortez PharmD Unavailable [phone] Reason for Visit * Reason Comments Med Refill Encounter Details Date Type Department Care Team (Late st Contact Info) Description 07/15/2025 Refill [facility] [address] [place], [place] [phone] Tyesha Rogers MD [address] [place], [place] [phone] Neuropathy Social History Tobacco Use Types Packs/Day [...] EST Clinical Support [facility] [address] [place] [id number] Alva Frias RN [address] [place] [address] 09/30/2025 10:45 AM EST Office Visit [facility] [address] [place] [address] Tyesha Rogers MD [address] [place] [address] 10/23/2025 1:00 PM EST Office Visit [facility] [address] [place] [address] Katharine Carbone, ZAHIDA [address] [place] [address] documented as of this encounter Visit Diagnoses Diagnosis Neuropathy Mononeuritis of unspecified site documented in this encounter Additional Health Concerns Assessment Noted Time PHQ-9 Depression Total Score: 14 025 1:25 PM EDT documented as of this encounter Care Teams Billiard Table Repairer Relationship Specialty Start Date End Date Tyesha Rogers MD [address] [place] [address] PCP - General Family Medicine 04/25/19 Hi Cortez, PharmD [address] [place] [address] Pharmacist Pharmacy 08/04/25 documented as of this encounter
--- OUTSIDE RECORDS SUMMARY | 2025-09-08 18:12 | XMS_ITS | Encounter Summary ---
Author Organization [employer] Address 75 [facility] 7t [place] [address] Care Team Providers Care Hedis Nurse Name Role Phone Tyesha Rogers MD Primary Care Provider [phone] Hi Cortez PharmD Unavailable [phone] Reason for Visit * Reason Onset Date Comments Paperwork/Forms 08/25/2025 Encounter Details Date Type Department Care Team ([facility] st Contact Info) Description 08/25/2025 Telephone [facility] MED[facility]INE [address] [place], [place] [phone] Tyesha Rogers MD 230 [place], [place] [phone] Paperwork/Forms Social History Tobacco Use Types Packs/Day [...] Telephone Encounter - Soumya Bagley RN - 09/03/2025 10:40 AM EST Dental Clearance Form filled out and signed by PCP and faxed back to Dr. Rojo at [facility] at [phone] * Telephone Encounter - Arianne Champagne RN - 08/25/2025 4:03 PM EST Received dental clearance paperwork for pt. Placed on covering provider's desk for review. documented in this encounter Plan of Treatment Upcoming Encounters Date Type Department Care Team (Late st Contact Info) Description 09/19/2025 10:30 AM EST Clinical Support [facility] MEDICINE [address] [place] [address] Alva Frias, LUCIUS [address] [place] [address] [phone] 09/30/2025 10:45 AM EST Office Visit [facility]INE [address] [place] [address] Tyesha Rogers MD 230 [place] [address] 10/23/2025 1:00 PM EST Office Visit [facility] OPTOMETRY [address] [place] [address] Katharine Carbone, OD 230 [place] [address] documented as of this encounter Goals Goal [...] Care Plan Weekly blood pressure task No HoldenMarcy corona FNP Weekly blood pressure task Care Plan Weekly blood pressure task No HoldenMarcy corona FNP Patient has chronic kidney disease Care Plan Patient has chronic kidney disease No HoldenMarcy corona WET WASH ASSEMBLER Patient has chronic kidney disease Care Plan Patient has chronic kidney disease No DeeringMarcy corona FNP Weekly blood pressure task Care Plan [...] Care Plan Weekly blood pressure task No Rnada Estes LPN Patient has chronic kidney disease Care Plan Patient has chronic kidney disease No Randa Estes LPN Patient has chronic kidney disease Care Plan Patient has chronic kidney disease No Randa Etses LPN Weekly blood pressure task Care Plan [...] Plan Weekly blood pressure task No Neha Mondargon RN Weekly blood pressure task Care Plan [...] Plan Weekly blood pressure task No Tamar Gililland Patient has chronic kidney disease Care Plan [...] has chronic kidney disease No Katie Louis Weekly blood pressure task Care Plan Weekly blood pressure task No Katie Louis Weekly blood pressure task Care Plan Weekly blood pressure task No Katie Louis Patient has chronic kidney disease Care Plan Patient has chronic kidney disease No Katie Louis Patient has chronic kidney disease Care Plan Patient has chronic kidney disease No Katie Louis Weekly blood pressure task Care Plan Weekly blood pressure task No Alva Frias RN Weekly blood pressure task Care Plan Weekly blood pressure task No Alva Frias RN Patient has chronic kidney disease Care Plan Patient has chronic kidney disease No McMann, Alva, RN Patient has chronic kidney disease Care [...] Weekly blood pressure task No Calero Umer Weekly blood pressure task Care Plan Weekly blood pressure task No Caleor Umer Patient has chronic kidney disease Care Plan Patient has chronic kidney disease No Calero Umer Patient has chronic kidney [...] Weekly blood pressure task No Tati Neri PharmMarvin Patient has chronic kidney disease Care [...] chronic kidney disease No [place] Katie Patient has chronic kidney disease Care [...] has chronic kidney disease No Dania Loaiza documented as of this encounter Visit Diagnoses [...] 09/02/2025 Patient has chronic kidney disease 09/02/2025 Assessment Noted Time PHQ-9 Depression Total Score: 14 025 1:25 PM EDT documented as of this encounter Care Teams Hedis Nurse Relationship Specialty Start Date End Date Tyesha Rogers MD 230 [place] [address] PCP - General Family Medicine 04/25/19 Hi Cortez, ManasD [address] [place] [address] Pharmacist Pharmacy 08/04/25 documented as of this encounter
--- OUTSIDE RECORDS SUMMARY | 2025-09-08 18:12 | XMS_ITS | Encounter Summary ---
Author Organization [employer] Address 75 [facility] 7t [place] [address] Care Team Providers Care Direct Support Staff Member Name Role Phone Tyesha Rogers MD Primary Care Provider Hi Cortez PharmD Unavailable [phone] Encounter Details Date Type Department Care Team (Late st Contact Info) Description 04/23/2025 Orders Only [facility] MEDICINE 230 [place], [place] [phone] Tyesha Rogers MD 230 [place], [place] [phone] Social History Tobacco Use Types Packs/Day Years [...] Description 09/19/2025 10:30 AM EST Clinical Support [facility] MEDICINE [address] [place] [address] Alva Frias, LUCIUS [address] [place] [address] 09/30/2025 10:45 AM EST Office Visit [facility] MEDICINE 230 [place] [address] Tyesha Rogers MD 230 [place] [address] 10/23/2025 1:00 PM EST Office Visit [facility] OPTOMETRY [address] [place] [address] Katharine Carbone, ZAHIDA 230 [place] [address] documented as of this encounter Procedures Procedure Name Priority Date/Time Associated Diagnosis Comments GLUCOSE, WHOLE BLOOD Routine 04/23/2025 11:53 AM EDT GLUCOSE, WHOLE BLOOD Routine 04/23/2025 11:21 AM EDT GLUCOSE, WHOLE BLOOD Routine 04/23/2025 10:52 AM EDT documented in this encounter Results * (ABNORMAL) Glucose, Whole Blood (04/23/2025 11:53 AM EDT) Glucose, Whole Blood 378(HH) 60 - 115 mg/dL [facility] Comment:METER #: [id number] 7 04/23/2025 11:5 3 AM EDT 04/23/2025 11:57 AM EDT us Generic External Data Provider LAB BLOOD ORDERAB LES Final Result Performing Organization Address [facility] de Phone Number [facility] [address] [place] [phone] * (ABNORMAL) Glucose, Whole Blood (04/23/2025 11:21 AM EDT) Glucose, Whole Blood 359(HH) 60 - 115 mg/dL [facility] Comment:METER #: [id number] 7 04/23/2025 11:2 1 AM EDT 04/23/2025 11:24 AM EDT Generic External Data Provider LAB BLOOD ORDERAB LES Final Result Performing Organization Address [facility] Co de Phone Number [facility] [address] [place] [phone] * (ABNORMAL) Glucose, Whole Blood (04/23/2025 10:52 AM EDT) Glucose, Whole Blood 371(HH) 60 - 115 mg/dL [facility] Comment:METER #: [id number] 7 04/23/2025 10:5 2 AM EDT 04/23/2025 10:55 AM EDT us Generic External Data Provider LAB BLOOD ORDERAB LES Final Result Performing Organization Address [facility]/State/ZIP Co de Phone Number [facility] [address] [place] [phone] documented in this encounter Visit Diagnoses Not on filedocumented in this encounter Additional Health Concerns Assessment Noted Time PHQ-9 Depression Total Score: 14 12/31/ 025 1:25 PM EDT documented as of this encounter Care Teams Direct Support Staff Member Relationship Specialty Start Date End Date Tyesha Rogers MD [address] [place] [address] PCP - General Family Medicine 04/25/19 Hi Cortez, ManasD [address] [place] [address] Pharmacist Pharmacy 08/04/25 documented as of this encounter
--- OUTSIDE RECORDS SUMMARY | 2025-09-08 18:12 | XMS_ITS | Encounter Summary ---
Author Organization [employer] Address [address] [facility] 7t [place] [address] Care Team Providers Care Paper Coating Machine Operator Name Role Phone Tyesha Rogers MD Primary Care Provider [phone] Hi Cortez PharmD Unavailable [phone] Reason for Visit * Reason Onset Date Comments Hospital Follow-up 05/07/2025 Encounter Details Date Type Department Care Team ([facility] st Contact Info) Description 05/07/2025 Telephone [facility]INE 230 [place], [place] [phone] Tyesha Rogers MD 230 [place], [place] [phone] Hospital Follow-up Social History Tobacco Use Types [...] from pt requesting a HDF appt. Hospital: [facility] Date of admission: 04/23/2025 Discharge date: 04/23/2025 Diagnosed: Fall twist of right ankle *Send message to [place] Clinical Care Coordinators Spoke to: Heather with [facility] Contact [phone] [phone] documented in this encounter Plan of Treatment Upcoming Encounters Date Type Department Care Team (Late st Contact Info) Description 09/19/2025 10:30 AM EST Clinical Support [address] [address] Alva Frias RN [address] [place] [address] 09/30/2025 10:45 AM EST Office Visit [address] [address] Tyesha Rogers MD [address] [place] [address] 10/23/2025 1:00 PM EST Office Visit [facility] OPTOMETRY [address] [place], [place] [phone] Katharine Carbone, OD 230 [place] [address] documented as of this encounter Visit Diagnoses Not on filedocumented in this encounter Additional Health Concerns Assessment Noted Time PHQ-9 Depression Total Score: 14 025 1:25 PM EDT documented as of this encounter Care Teams Paper Coating Machine Operator Relationship Specialty Start Date End Date Tyesha Rogers MD 230 [place] [address] PCP - General Family Medicine 04/25/19 Hi Cortez, ManasD [address] [place], [place] [phone] Pharmacist Pharmacy 08/04/25 documented as of this encounter
--- OUTSIDE RECORDS SUMMARY | 2025-09-08 18:12 | XMS_ITS | Encounter Summary ---
Author Organization [employer] Address 75 [facility] 7 [place] [address] Care Team Providers Care Dial Refinisher Name Role Phone Tyesha Rogers MD Primary Care Provider [phone] Hi Cortez PharmD Unavailable [phone] Reason for Visit * Reason Onset Date Comments Call Back Request 05/01/2025 Encounter Details Date Type Department Care Team ([facility] st Contact Info) Description 05/01/2025 Telephone [facility] 230 [place], [place] [phone] Tyesha Rogers MD 230 [place], [place] [phone] Call Back Request Social History Tobacco Use [...] Description 09/19/2025 10:30 AM EST Clinical Support [facility] [address] [place] [address] Alva Frias RN 505 [place] [address] 09/30/2025 10:45 AM EST Office Visit [facility] 230 [place] [address] Tyesha Rogers MD [address] [place] [address] 10/23/2025 1:00 PM EST Office Visit [facility] OPTOMETRY [address] [place], [place] [phone] Raf, Katharine, OD 230 [place] [address] documented as of this encounter Visit Diagnoses Not on filedocumented in this encounter Additional Health Concerns Assessment Noted Time PHQ-9 Depression Total Score: 14 025 1:25 PM EDT documented as of this encounter Care Teams Dial Refinisher Relationship Specialty Start Date End Date Tyesha Rogers MD 230 [place], [place] [phone] PCP - General Family Medicine 04/25/19 Hi Cortez, PharmD [address] [place] [phone] Pharmacist Pharmacy 08/04/25 documented as of this encounter
--- OUTSIDE RECORDS SUMMARY | 2025-09-08 18:12 | XMS_ITS | Encounter Summary ---
Author Organization [employer] Address 75 [facility] 7t [place] [address] Care Team Providers Care Oracle Architect Name Role Phone Tyesha Rogers MD Primary Care Provider [phone] Hi Cortez PharmD Unavailable Reason for Visit * Reason Onset Date Comments Med Refill 08/11/2025 Encounter Details Date Type Department Care Team (Late st Contact Info) Description 08/11/2025 Telephone [facility]INE 230 [place], [place] [phone] Tyesha Rogers MD 230 [place], [place] [phone] Med Refill Social History Tobacco Use Types [...] MG tablet To be sent to: - [facility] - [place], [place] - [address] [place] [address] documented in this encounter Plan of Treatment Upcoming Encounters Date Type Department Care Team ([facility] st Contact Info) Description 09/19/2025 10:30 AM EST Clinical Support [facility] [address] [place] [address] Alva Frias RN 505 [place] [address] 09/30/2025 10:45 AM EST Office Visit [facility] [address] [place] [address] Tyesha Rogers MD [address] [place] [address] 10/23/2025 1:00 PM EST Office Visit [facility] OPTOMETRY [address] [place] [address] Katharine Carbone, OD [address] [place] [address] documented as of this encounter Goals Goal [...] Care Plan Weekly blood pressure task No BuffaloMarcy corona FOOD AND BEVERAGE SERVER Weekly blood pressure task Care Plan Weekly blood pressure task No BuffaloMarcy FOOD AND BEVERAGE SERVER Patient has chronic kidney disease Care Plan Patient has chronic kidney disease No BuffaloMarcy FOOD AND BEVERAGE SERVER Patient has chronic kidney disease Care Plan Patient has chronic kidney disease No BuffaloMarcy FOOD AND BEVERAGE SERVER Weekly blood pressure task Care Plan Weekly [...] Plan Weekly blood pressure task No Alva Firas, LUCIUS Patient has chronic kidney disease Care [...] as of this encounter Care Teams Oracle Architect Relationship Specialty Start Date End Date Tyesha Rogers MD 230 [place] [address] PCP - General Family Medicine 04/25/19 Hi Cortez, ManasD 230 [place] [address] Pharmacist Pharmacy 08/04/25 documented as of this encounter
--- OUTSIDE RECORDS SUMMARY | 2025-09-08 18:13 | XMS_ITS | Encounter Summary ---
Author Organization [employer] Address [address] [place] [address] 7t [place] [address] Care Team Providers Care Cafe Lead Name Role Phone Tyesha Rogers MD Primary Care Provider [phone] Hi Cortez PharmD Unavailable [phone] Reason for Visit * Reason Comments Med Refill Encounter Details Date Type Department Care Team (Late st Contact Info) Description 01/19/2025 Refill [facility] MEDICINE 230 [place], [place] [phone] Tyesha Rogers MD 230 [place], [place] [phone] Social History Tobacco Use Types Packs/Day Years [...] Description 09/19/2025 10:30 AM EST Clinical Support [facility] MEDICINE [address] [place] [address] Alva Frias, LUCIUS [address] [place] [address] 09/30/2025 10:45 AM EST Office Visit [facility] MEDICINE 230 [place] [address] Tyesha Rogers MD 230 [place] [address] 10/23/2025 1:00 PM EST Office Visit [facility] OPTOMETRY [address] [place] [address] Katharine Carbone, OD 230 [place] [address] documented as of this encounter Visit Diagnoses Not on filedocumented in this encounter Additional Health Concerns Assessment Noted Time PHQ-9 Depression Total Score: 14 025 1:25 PM EDT documented as of this encounter Care Teams Cafe Lead Relationship Specialty Start Date End Date Tyesha Rogers MD [address] [place] [address] PCP - General Family Medicine 04/25/19 Hi Cortez, ManasD [address] [place] [address] Pharmacist Pharmacy 08/04/25 documented as of this encounter
--- OUTSIDE RECORDS SUMMARY | 2025-09-08 18:13 | XMS_ITS | Encounter Summary ---
Author Organization [employer] Address [address] [place] [address] 7t [place] [address] Care Team Providers Care Wad Blanking Press Adjuster Name Role Phone Tyesha Rogers MD Primary Care Provider [phone] Hi Cortez PharmD Unavailable [phone] Encounter Details Date Type Department Care Team ([facility] Contact Info) Description 08/14/2025 Orders Only [facility] 230 [place] [address] Provider, MD Jhony Social History Tobacco Use [...] Description 09/19/2025 10:30 AM EST Clinical Support [facility] MEDICINE [address] [place] [address] Alva Frias RN 505 [place] [address] 09/30/2025 10:45 AM EST Office Visit [facility] MEDICINE [address] [place] [address] Tyesha Rogers MD 230 [place] [address] 10/23/2025 1:00 PM EST Office Visit [facility] OPTOMETRY [address] [place] [address] Katharine Carbone OD 230 [place] [address] documented as of this encounter Goals Goal [...] Care Plan Weekly blood pressure task No Winona Marcy, [facility] Weekly blood pressure task Care Plan Weekly blood pressure task No Winona Idalou, [facility] Patient has chronic kidney disease Care Plan Patient has chronic kidney disease No Winona Idalou, [facility] Patient has chronic kidney disease Care Plan Patient has chronic kidney disease No Winona Marcy [facility] Weekly blood pressure task Care Plan Weekly blood pressure task No Dania Hidalgo Weekly blood pressure task Care Plan Weekly blood pressure task No Dnaia Hidalgo Patient has chronic kidney disease Care [...] Care Plan Weekly blood pressure task No iH Cortez PharmD Patient has chronic kidney disease [...] documented as of this encounter Care Teams Wad Blanking Press Adjuster Relationship Specialty Start Date End Date Tyesha Rogers MD 230 [place] [address] PCP - General Family Medicine 04/25/19 Hi Cortez, PharmD 230 [place] [address] Pharmacist Pharmacy 08/04/25 documented as of this encounter
--- OUTSIDE RECORDS SUMMARY | 2025-09-08 18:13 | XMS_ITS | Encounter Summary ---
Author Organization [employer] Address 75 [facility] 7 [place] [address] Care Team Providers Care Reed Press Feeder Name Role Phone Tyesha Rogers MD Primary Care Provider [phone] Hi Cortez PharmD Unavailable [phone] Reason for Visit * Reason Onset Date Comments Results 09/02/2025 Encounter Details Date Type Department Care Team ([facility] st Contact Info) Description 09/02/2025 Telephone [facility] MEDICINE 230 [place], [place] [phone] Tyesha Rogers MD [address] [place], [place] [phone] Results Social History Tobacco Use Types Packs/Day Years [...] Encounter - Soumya Bagley RN - 09/03/2025 12:18 PM EST Return call placed to the pt in regard to looking for results from a hand XR that was taken at [facility]. The pt states that she was given a disc and a corresponding letter stating the results.The pt only could understand the interpretation that the pt has trigger finger and a referral should be placed to a specialist for further evaluation. Pt was advised that she has an upcoming appointment with PCP on 09/30/2025 in which these results can be reviewed with PCP. Pt advised to bring all documentation from this visit to appointment. Pt agreeable and stated understanding. * Telephone Encounter - Tamar Gilliland - 09/02/2025 10:19 AM EST TC from pt requesting call back regarding Results. Type of results: hand xray Date when done: 09/02 Facility: Replaced by [facility] Address: [address] [place] [address] documented in this encounter Plan of Treatment Upcoming Encounters Date Type Department Care Team (Late st Contact Info) Description 09/19/2025 10:30 AM EST Clinical Support [facility] MEDICINE [address] [place] [address] Alva Frias RN 505 [place] [address] 09/30/2025 10:45 AM EST Office Visit [facility] MEDICINE [address] [place] [address] Tyesha Rogers MD [address] [place] [address] 10/23/2025 1:00 PM EST Office Visit [facility] OPTOMETRY [address] [place] [address] Katharine Carbone, OD 230 [place] [address] documented as of this encounter Goals Goal [...] Weekly blood pressure task No Marcy Hatch, HANDBAG PARTS CUTTER Patient has chronic kidney disease Care Plan [...] Weekly blood pressure task No Franklyn, Randa, HOSPITALITY JOB TITLES Weekly blood pressure task Care Plan Weekly blood pressure task No Franklyn, Randa, HOSPITALITY JOB TITLES Patient has chronic kidney disease Care Plan Patient has chronic kidney disease No Franklyn, Randa, HOSPITALITY JOB TITLES Patient has chronic kidney disease Care Plan Patient has chronic kidney disease No Franklyn, Randa, HOSPITALITY JOB TITLES Weekly blood pressure task Care Plan Weekly [...] Care Plan Weekly blood pressure task No Basliio, Mayra Weekly blood pressure task Care Plan [...] Patient has chronic kidney disease No Tamar Gilliladn Weekly blood pressure task Care Plan Weekly [...] chronic kidney disease No Hi Cortez PharmMarvin Weekly blood pressure [...] documented as of this encounter Care Teams Reed Press Feeder Relationship Specialty Start Date End Date Tyesha Rogers MD [address] [place] [address] PCP - General Family Medicine 04/25/19 Hi Cortez, ManasD [address] [place] [address] Pharmacist Pharmacy 08/04/25 documented as of this encounter
--- OUTSIDE RECORDS SUMMARY | 2025-09-08 18:13 | XMS_ITS | Encounter Summary ---
Author Organization [employer] Address 75 [facility] 7 [place] [address] Care Team Providers Care Hospice Nurse Practitioner Name Role Phone Tyesha Rogers MD Primary Care Provider [phone] Hi Cortez PharmD Unavailable [phone] Reason for Visit * Reason Onset Date Comments Referral 09/02/2025 Encounter Details Date Type Department Care Team (Late st Contact Info) Description 09/02/2025 Telephone [facility] MEDICINE 230 [place], [place] [phone] Tyesha Rogers MD 230 [place], [place] [phone] Referral Social History Tobacco Use Types Packs/Day Years [...] Encounter - Soumya Bagley RN - 09/03/2025 1:00 PM EST Please see TE from 09/03 in which the pt was contacted about being seen at [facility]. The pt had a hand XR which showed that the pt has trigger finger. The pt was agreeable to following up withPCP at next office visit on 09/30/2025 to follow up and discuss this referral to an appropriate specialty office. Pt was agreeable to this plan and advised to call back the office if any concerning symptoms develop. * Telephone Encounter - Dania Loaiza - 09/02/2025 1:49 PM EST Tc from pt requesting a referral to a orthopedic surgeon pt thinks she has trigger finger . Contact pt at [phone] documented in this encounter Plan of Treatment Upcoming Encounters Date Type Department Care Team (Late st Contact Info) Description 09/19/2025 10:30 AM EST Clinical Support [facility] MEDICINE [address] [place] [address] Alva Frias, LUCIUS 505 [place] [address] 09/30/2025 10:45 AM EST Office Visit [facility] MEDICINE [address] [place] [address] Tyesha Rogers MD [address] [place] [address] 10/23/2025 1:00 PM EST Office Visit [facility] OPTOMETRY [address] [place] [address] Katharine Carbone, ZAHIDA 230 [place] [address] documented as of this encounter Goals Goal [...] Care Plan Weekly blood pressure task No FranklynKiana alcantaranifer TENNIS BALL COVERER HAND Weekly blood pressure task Care Plan Weekly blood pressure task No Franklyn Randa, TENNIS BALL COVERER HAND Patient has chronic kidney disease Care Plan Patient has chronic kidney disease No Franklyn Randa, TENNIS BALL COVERER HAND Patient has chronic kidney disease Care Plan Patient has chronic kidney disease No FranklynKianaRanda TENNIS BALL COVERER HAND Weekly blood pressure task Care Plan Weekly [...] Plan Patient has chronic kidney disease No Taamr Gilliland Patient has chronic kidney disease Care [...] Care Plan Weekly blood pressure task No BasilioBhaviksa Patient has chronic kidney disease [...] Weekly blood pressure task No Abdias Umer Weekly blood pressure task [...] documented as of this encounter Care Teams Hospice Nurse Practitioner Relationship Specialty Start Date End Date Tyesha Rogers MD 230 [place] [address] PCP - General Family Medicine 04/25/19 Hi Cortez, PharmD [address] [place] [address] Pharmacist Pharmacy 08/04/25 documented as of this encounter
--- OUTSIDE RECORDS SUMMARY | 2025-09-08 18:13 | XMS_ITS | Encounter Summary ---
Author Organization [employer] Address 75 [facility] 7t [place] [address] Care Team Providers Care Conical Mixer Name Role Phone Tyesha Rogers MD Primary Care Provider [phone] Hi Cortez PharmD Unavailable [phone] Encounter Details Date Type Department Care Team ([facility] st Contact Info) Description 08/27/2025 Results Follow-Up [facility] MED[facility]INE 230 [place], [place] [phone] Samantha Lima ANP 230 [place] [address] TSH W/Reflex to FT4 Social History Tobacco Use Types Packs/Day Years [...] Description 09/19/2025 10:30 AM EST Clinical Support [facility] MEDICINE [address] [place] [address] Alva Frias RN 505 [place] [address] 09/30/2025 10:45 AM EST Office Visit [facility] MED[facility]INE 230 [place] [address] Tyesha Rogers MD 230 [place] [address] 10/23/2025 1:00 PM EST Office Visit [facility] OPTOMETRY [address] [place] [address] Katharine Carbone, ZAHIDA 230 [place] [address] documented as of this encounter Goals Goal [...] Care Plan Weekly blood pressure task No Vernon Marcy, COURSE DEVELOPER Weekly blood pressure task Care Plan Weekly blood pressure task No Vernon Arimo, [facility] Patient has chronic kidney disease Care Plan Patient has chronic kidney disease No Vernon Marcy [facility] Patient has chronic kidney disease Care Plan Patient has chronic kidney disease No Vernon Marcy, [facility] Weekly blood pressure task Care Plan [...] Patient has chronic kidney disease No Mayra Basiilo Weekly blood pressure task Care Plan Weekly [...] Weekly blood pressure task No Arianne Champagne, LUCIUS Patient has chronic kidney disease Care [...] has chronic kidney disease No Tati Neri PharmMarvin Patient has chronic [...] Care Plan Patient has chronic kidney disease Evangelina Mcclelland documented as of this encounter Visit Diagnoses [...] 08/27/2025 Patient has chronic kidney disease 08/27/2025 Assessment Noted Time PHQ-9 Depression Total Score: 14 025 1:25 PM EDT documented as of this encounter Care Teams Conical Mixer Relationship Specialty Start Date End Date Tyesha Rogers MD 230 [place] [address] PCP - General Family Medicine 04/25/19 Hi Cortez, ManasD 230 [place] [address] Pharmacist Pharmacy 08/04/25 documented as of this encounter
--- OUTSIDE RECORDS SUMMARY | 2025-09-08 18:13 | XMS_ITS | Encounter Summary ---
Author Organization [employer] Address [address] [facility] [address] 7t [place] [address] Care Team Providers Care Calender Wind Up Tender Name Role Phone Tyesha Rogers MD Primary Care Provider [phone] Hi Cortez PharmD Unavailable [phone] Encounter Details Date Type Department Care Team ([facility] st Contact Info) Description 09/08/2025 Telephone [facility] [address] [place], [place] [phone] Bren Gasca, RN 230 [place] [address] Social History Tobacco Use Types Packs/Day Years [...] encounter Miscellaneous Notes * Telephone Encounter - Bren Gasca RN - 09/08/2025 9:54 AM EST Called pt to triage, spoke to pt. Pt states her Tresiba was increased on her appointment of 08/27 and since then, has been having a lot of lows. Pt reports low sugars ranging from 49-66 with some symptoms. Pt last seen 08/27, by another provider. Pt states not feeling well with extra fatigue, and shakiness. Advised home care: rest, fluids, have a source of quick sugar always available to her, monitor sugars and call back as needed. Given appointment today with PCP to discuscalled pt to triage, spoke to pt. pt reports low sugars since the increase in her Tresiba. pt currently taking 35 units daily and having low sugars ranging from 42-66. pt reports fatigue, and shakiness and was advised to have quick sugar available at all times. given appt today to speak to PCP, at 1:45 and to bring her glucometer with her. advised home care: rest, fluids, monitor sugars, bedtime snack as needed, and call back if further concerns. pt understands and agrees with plan. Protocol Used: Diabetes - Low Blood Sugar (Adult) Protocol-Based Disposition: See in Office or Video Visit Today Video visit offer not recorded Positive Triage Question: * Patient wants to be seen * All higher-acuity triage questions were negative. Care Advice Discussed: * Reassurance and Education [...] Sleepiness or confusion occur - You become worses. Pt understands and agrees with plan. documented in this encounter Plan of Treatment Upcoming Encounters Date Type Department Care Team (Late st Contact Info) Description 09/19/2025 10:30 AM EST Clinical [address] [facility] MEDICINE [address] [place] [address] Alva Frias RN 505 [place] [address] 09/30/2025 10:45 AM EST Office [address] [facility] 230 [place] [address] Tyesha Rogers MD 230 [place] [address] 10/23/2025 1:00 PM EST Office [address] [facility] OPTOMETRY [address] [place] [address] Katharine Carbone OD 230 [place] [address] documented as of this encounter Goals Goal [...] Care Plan Weekly blood pressure task No Brickeys [facility] Weekly blood pressure task Care Plan Weekly blood pressure task No [facility] Patient has chronic kidney disease Care Plan Patient has chronic kidney disease No B[facility]keys [facility] Patient has chronic kidney disease Care Plan Patient has chronic kidney disease No Brickeys [facility] Weekly blood pressure task Care Plan [...] Patient has chronic kidney disease No BasilioMayra Patient has chronic kidney disease [...] Plan Patient has chronic kidney disease No Yokr, Aminata Weekly blood pressure task Care Plan [...] has chronic kidney disease No Hi Cortez, PharmMarvin Patient has chronic [...] blood pressure task No Colon Jaylen Katie Weekly blood pressure task Care Plan Weekly blood pressure task No Colon Jaylen Katie Patient has chronic kidney disease Care Plan Patient has chronic kidney disease No Eric York Katie Patient has chronic kidney disease Care Plan Patient has chronic kidney disease No Colon Macey Yorkla Weekly blood pressure [...] Care Plan Weekly blood pressure task No Okjulian Penelope, BELT NOTCHER Weekly blood pressure task Care Plan Weekly blood pressure task No OkDavina jordanupe, BELT NOTCHER Patient has chronic kidney disease Care Plan Patient has chronic kidney disease No Okcarmenzao Penelope, BELT NOTCHER Patient has chronic kidney disease Care Plan Patient has chronic kidney disease No Okcarmenzao Penelope, BELT NOTCHER Weekly blood pressure task Care Plan Weekly blood pressure task No Bren Gasca RN Weekly blood pressure task Care Plan Weekly blood pressure task No Bren Gasca RN Patient has chronic [...] Kalyan Gilliland documented as of this encounter Visit Diagnoses [...] documented as of this encounter Care Teams Calender Wind Up Tender Relationship Specialty Start Date End Date Tyesha Rogers MD 230 [place] [address] PCP - General Family Medicine 04/25/19 Hi Cortez, PharmD 230 [place] [address] Pharmacist Pharmacy 08/04/25 documented as of this encounter
--- OUTSIDE RECORDS SUMMARY | 2025-09-08 18:13 | XMS_ITS | Encounter Summary ---
Author Organization [employer] Address [address] [place] [address] 7 [place] [address] Care Team Providers Care Stud Dairy Cattle Farmer Name Role Phone Tyesha Rogers MD Primary Care Provider [phone] Hi Cortez PharmD Unavailable [phone] Encounter Details Date Type Department Care Team ([facility] st Contact Info) Description 01/28/2025 Telephone [facility] 230 [place], [place] [phone] Mira Vanegas PharmD 230 [place], [place] [phone] Social History Tobacco Use Types Packs/Day Years [...] Description 09/19/2025 10:30 AM EST Clinical Support [facility] [address] [place] [address] Alva Frias, LUCIUS 505 [place] [address] 09/30/2025 10:45 AM EST Office Visit [facility] [address] [place] [address] Tyesha Rogers MD 230 [place] [address] 10/23/2025 1:00 PM EST Office Visit [facility] OPTOMETRY 267 [place] [address] Katharine Carbone, OD 230 [place] [address] documented as of this encounter Visit Diagnoses Not on filedocumented in this encounter Additional Health Concerns Assessment Noted Time PHQ-9 Depression Total Score: 14 025 1:25 PM EDT documented as of this encounter Care Teams Stud Dairy Cattle Farmer Relationship Specialty Start Date End Date Tyesha Rogers MD [address] [place] [address] PCP - General Family Medicine 04/25/19 Hi Cortez, ManasD [address] [place] [address] Pharmacist Pharmacy 08/04/25 documented as of this encounter
--- OUTSIDE RECORDS SUMMARY | 2025-09-08 18:13 | XMS_ITS | Encounter Summary ---
Author Organization [employer] Address [address] [facility] [address] 7t [place] [address] Care Team Providers Care Hand Stonecutter Name Role Phone Tyesha Rogers MD Primary Care Provider [phone] Hi Cortez PharmD Unavailable [phone] Encounter Details Date Type Department Care Team (Latest Contact Info) Description 09/08/2025 Travel Social History Tobacco Use Types Packs/Day [...] Description 09/19/2025 10:30 AM EST Clinical Support [facility] MED[facility]INE [address] [place] [phone] Alva Frias RN 505 [place] [address] 09/30/2025 10:45 AM EST Office Visit [facility] MEDICINE 230 [place] [address] Tyesha Rogers MD 230 [place] [address] 10/23/2025 1:00 PM EST Office Visit [facility] OPTOMETRY 267 [place] [address] Katharine Carbone, ZAHIDA 230 [place] [address] documented as of this encounter Goals Goal [...] Care Plan Weekly blood pressure task No [place] [facility] Weekly blood pressure task Care Plan Weekly blood pressure task No [place] [facility] Patient has chronic kidney disease Care Plan Patient has chronic kidney disease No [place] [facility] Patient has chronic kidney disease Care Plan Patient has chronic kidney disease No [place] [facility] Weekly blood pressure task Care Plan Weekly [...] Patient has chronic kidney disease No Dania Laoiza Patient has chronic kidney disease Care Plan [...] Plan Weekly blood pressure task No Silvino Gilliladn Weekly blood pressure task Care Plan [...] Weekly blood pressure task No Tati Neri, PharmMarvin Patient has chronic kidney disease Care [...] Care Plan Weekly blood pressure task No Macey Louisla Weekly blood pressure task Care Plan Weekly [...] Care Plan Weekly blood pressure task No SantDania cortez Patient has chronic kidney disease Care Plan Patient has chronic kidney disease No Dania Loaiza Patient has chronic kidney disease Care Plan Patient has chronic kidney disease No Dania Loaiza Weekly blood pressure task Care Plan Weekly blood pressure task No Okcarmenzao Penelope, TRADING MANAGER Weekly blood pressure task Care Plan Weekly blood pressure task No [place]o Penelope, TRADING MANAGER Patient has chronic kidney disease Care Plan Patient has chronic kidney disease No Okcarmenzao Penelope, TRADING MANAGER Patient has chronic kidney disease Care Plan Patient has chronic kidney disease No Okcarmenzao Penelope, TRADING MANAGER Weekly blood pressure task Care Plan Weekly blood pressure task No Bren Gasca RN Weekly blood pressure task Care Plan Weekly blood pressure task No Bren Gasca, LUCIUS Patient has chronic kidney disease Care Plan Patient has chronic kidney disease No Bren Gasca, LUCIUS Patient has chronic kidney disease Care Plan Patient has chronic kidney disease No Bren Gasca, LUCIUS Weekly blood pressure task Care Plan [...] documented as of this encounter Care Teams Hand Stonecutter Relationship Specialty Start Date End Date Tyesha Rogers MD 230 [place] [address] PCP - General Family Medicine 04/25/19 Hi Cortez, Yehuda [address] [place] [address] Pharmacist Pharmacy 08/04/25 documented as of this encounter
--- OUTSIDE RECORDS SUMMARY | 2025-09-08 18:13 | XMS_ITS | Encounter Summary ---
Author Organization [employer] Address [address] [place] [address] 7t [place] [address] Care Team Providers Care Band Bias Machine Operator Name Role Phone Tyesha Rogers MD Primary Care Provider [phone] Hi Cortez PharmD Unavailable [phone] Encounter Details Date Type Department Care Team ([facility] st Contact Info) Description 08/27/2025 Orders Only [facility] MED[facility] 230 [place], [place] [phone] Penelope Deal FNP 230 [place], [place] [phone] Social History Tobacco Use Types Packs/Day Years [...] EST Clinical Support [facility] [address] [place] [address] Alva Frias RN 505 [place] [address] 09/30/2025 10:45 AM EST Office Visit [facility] [address] [place] [address] Tyesha Rogers MD 230 [place] [address] 10/23/2025 1:00 PM EST Office Visit [facility] OPTOMETRY 267 [place] [address] Katharine Carbone OD 230 [place] [address] documented as of this encounter Goals Goal [...] Care Plan Weekly blood pressure task No [facility] Weekly blood pressure task Care Plan Weekly blood pressure task No [facility] Patient has chronic kidney disease Care Plan Patient has chronic kidney disease No [facility] Patient has chronic kidney disease Care Plan Patient has chronic kidney disease No [facility] Weekly blood pressure task Care Plan Weekly [...] Weekly blood pressure task No Ashlyn Yorkz Patient has chronic kidney [...] Care Plan Weekly blood pressure task No JoseSofíaEvangelina Patient has chronic kidney disease Care Plan Patient has chronic kidney disease No Evangelina Garcia Patient has chronic kidney disease Care Plan Patient has chronic kidney disease No Evangelina Garcia documented as of this encounter Procedures Procedure Name Priority Date/Time Associated Diagnosis Comments CONFIRMATORY SYPHILIS PROFILE Routine 08/27/2025 10:52 AM EST documented in this encounter Results * (ABNORMAL) Confirmatory Syphilis Profile (08/27/2025 10:52 AM EST) Rapid Plasma Reagin, Quant Non-React awilda Nonreactive [facility] Treponema pallidum Antibody, Particle Agglutination Reactive( A) Nonreactive [facility] Comment:These results must b e reported by the ordering clinician orclinical facility to [facility] required by state law. 08/27/2025 10:5 2 AM EST 08/28/2025 5:32 AM EST us Penelope Deal MARINE EXTENSION AGENT LAB BLOOD ORDERABLES Final Res ult [facility] [address] [place] [phone] documented in this encounter Visit Diagnoses [...] documented as of this encounter Care Teams Band Bias Machine Operator Relationship Specialty Start Date End Date Tyesha Rogers MD 230 [place] [address] PCP - General Family Medicine 04/25/19 Hi Cortez, ManasD [address] [place] [address] Pharmacist Pharmacy 08/04/25 documented as of this encounter
--- OUTSIDE RECORDS SUMMARY | 2025-09-08 18:13 | XMS_ITS | Encounter Summary ---
Author Organization [employer] Address 75 [facility] 7t [place] [address] Care Team Providers Care Salvage Laborer Name Role Phone Tyesha Rogers MD Primary Care Provider [phone] Hi Cortez PharmD Unavailable [phone] Encounter Details Date Type Department Care Team (Latest Contact Info) Description 09/07/2025 Results Follow-Up [facility] 230 [place], [place] [phone] Penelope Deal FNP 230 [place], [place] [phone] Confirmatory Syphilis Profile Social History Tobacco Use Types Packs/Day Years [...] Description 09/19/2025 10:30 AM EST Clinical Support [facility] 230 [place] [address] Alva Frias RN 505 [place] [address] 09/30/2025 10:45 AM EST Office Visit [facility] [address] [place] [address] Tyesha Rogers MD 230 [place] [address] 10/23/2025 1:00 PM EST Office Visit [facility] OPTOMETRY [address] [place] [address] Katharine Carbone, ZAHIDA 230 [place] [address] documented as of this encounter Goals Goal [...] Care Plan Weekly blood pressure task No [place] Macry, FILLER AND TRIMMER Weekly blood pressure task Care Plan Weekly blood pressure task No [facility] Marcy, [facility] Patient has chronic kidney disease Care Plan Patient has chronic kidney disease No [facility] Marcy [facility] Patient has chronic kidney disease Care Plan Patient has chronic kidney disease No [facility] Marcy [facility] Weekly blood pressure task Care Plan Weekly [...] Plan Weekly blood pressure task No Hi Cortze PharmMarvin Patient has chronic kidney disease Care [...] Patient has chronic kidney disease No Mira Gracia [place] Weekly blood pressure task Care Plan [...] Patient has chronic kidney disease No Evangelina Garcai Weekly blood pressure task Care Plan Weekly [...] Care Plan Weekly blood pressure task No Penelope Deal FNP Weekly blood pressure task Care Plan Weekly blood pressure task No Penelope Deal FNP Patient has chronic kidney disease Care Plan Patient has chronic kidney disease No Penelope Deal, FILLER AND TRIMMER Patient has chronic kidney disease Care Plan Patient has chronic kidney disease No Penelope Deal, FILLER AND TRIMMER documented as of this encounter Visit Diagnoses [...] 09/07/2025 Patient has chronic kidney disease 09/07/2025 Assessment Noted Time PHQ-9 Depression Total Score: 14 025 1:25 PM EDT documented as of this encounter Care Teams Salvage Laborer Relationship Specialty Start Date End Date Tyesha Rogers MD [address] [place] [address] PCP - General Family Medicine 04/25/19 Hi Cortez, ManasD [address] [place] [address] Pharmacist Pharmacy 08/04/25 documented as of this encounter
--- OUTSIDE RECORDS SUMMARY | 2025-09-08 18:13 | XMS_ITS | Encounter Summary ---
Author Organization [employer] Address 75 [facility] 7 [place] [address] Care Team Providers Care Pet Ambassador Name Role Phone Tyesha Rogers MD Primary Care Provider [phone] Hi Cortez PharmD Unavailable [phone] Reason for Visit * Reason Onset Date Comments Prior Authorization 09/08/2025 Encounter Details Date Type Department Care Team ([facility] st Contact Info) Description 09/08/2025 Telephone [facility] MED[facility]INE 230 [place], [place] [phone] Tyesha Rogers MD 230 [place], [place] [phone] Prior Authorization Social History Tobacco Use Types [...] encounter Miscellaneous Notes * Telephone Encounter - Kalyan Gilliland - 09/08/2025 3:06 PM EST Patient walked in stating this med needs a PA per pharmacy: clonazePAM (KlonoPIN) 0.5 MG tablet documented in this encounter Plan of Treatment Upcoming Encounters Date Type Department Care Team (Late st Contact Info) Description 09/19/2025 10:30 AM EST Clinical Support [facility] MED[facility] [address] [place] [phone] Alva Frias RN 505 [place] [address] 09/30/2025 10:45 AM EST Office Visit [facility] [address] [place] [address] Tyesha Rogers MD 230 [place] [address] 10/23/2025 1:00 PM EST Office Visit [facility] OPTOMETRY [address] [place] [address] Katharine Carbone, OD 230 [place] [address] documented as of this encounter Goals Goal [...] Patient has chronic kidney disease No Samantha Liam ANP Weekly blood pressure task Care Plan [...] blood pressure task No iH Cortez PharmD Weekly blood pressure task Care Plan Weekly blood pressure task No Hi Cotrez PharmD Patient has chronic kidney disease Care [...] blood pressure task No iH Cortez PharmD Weekly blood pressure task Care [...] has chronic kidney disease No Penelope Deal, INFORMATICS COORDINATOR Patient has chronic kidney disease Care Plan Patient has chronic kidney disease No Penelope Deal FNP Weekly blood pressure [...] documented as of this encounter Care Teams Pet Ambassador Relationship Specialty Start Date End Date Tyesha Rogers MD 230 [place] [address] PCP - General Family Medicine 04/25/19 Hi Cortez, ManasD 230 [place] [address] Pharmacist Pharmacy 08/04/25 documented as of this encounter
--- OUTSIDE RECORDS SUMMARY | 2025-09-08 18:14 | XMS_ITS | Encounter Summary ---
Author Organization [employer] Address [address] [facility] 7t [place] [address] Care Team Providers Care Home Energy Rater Name Role Phone Tyesha Rogers MD Primary Care Provider [phone] Hi Cortez PharmD Unavailable [phone] Reason for Visit * Reason Onset Date Comments Durable Medical Equipment 09/06/2023 Encounter Details Date Type Department Care Team (Late st Contact Info) Description 09/06/2023 Telephone [facility] MED[facility]INE 230 [place], [place] [phone] Tyesha Rogers MD 230 [place], [place] [phone] Durable Medical Equipment Social History Tobacco Use [...] wheels or seat. Please contact Pt @ [phone] documented in this encounter Plan of Treatment Upcoming Encounters Date Type Department Care Team (Late st Contact Info) Description 09/19/2025 10:30 AM EST Clinical Support [facility] MED[facility]INE [address] [place] [address] Alva Frias RN 505 [place] [address] 09/30/2025 10:45 AM EST Office Visit [facility] 230 [place] [address] Tyesha Rogers MD [address] [place] [address] 10/23/2025 1:00 PM EST Office Visit [facility] OPTOMETRY [address] [place], [place] [phone] Raf, Katharine, OD 230 [place] [address] documented as of this encounter Visit Diagnoses Not on filedocumented in this encounter Additional Health Concerns Assessment Noted Time PHQ-9 Depression Total Score: 21 023 9:42 AM EDT documented as of this encounter Care Teams Home Energy Rater Relationship Specialty Start Date End Date Tyesha Rogers MD 230 [place] [address] PCP - General Family Medicine 04/25/19 Hi Cortez, PharmD [address] [place] [phone] Pharmacist Pharmacy 08/04/25 documented as of this encounter
--- OUTSIDE RECORDS SUMMARY | 2025-09-08 18:14 | XMS_ITS | Encounter Summary ---
Author Organization [employer] Address 75 [facility] 7 [place] [address] Care Team Providers Care Injection Mold Technician Name Role Phone Tyesha Rogers MD Primary Care Provider [phone] Hi Cortez PharmD Unavailable [phone] Reason for Visit * Reason Onset Date Comments Appointment Request 01/13/2025 Encounter Details Date Type Department Care Team (Late st Contact Info) Description 01/13/2025 Telephone [facility] 230 [place], [place] [phone] Tyesha Rogers MD 230 [place], [place] [phone] Appointment Request Social History Tobacco Use Types [...] was cancelled to be rescheduled due to automobile service writer not finding availability please return call to pt to be scheduled. Callback number [phone] Appointment type - Follow Up Notes - F/U allergic reaction. Sent to ED at last appt. Provider - Tyesha Rogers [phone] documented in this encounter Plan of Treatment Upcoming Encounters Date Type Department Care Team ([facility] st Contact Info) Description 09/19/2025 10:30 AM EST Clinical Support [facility] [address] [place] [address] Alva Frias RN 505 [place] [address] 09/30/2025 10:45 AM EST Office Visit [address] [address] Tyesha Rogers MD [address] [place] [address] 10/23/2025 1:00 PM EST Office Visit [facility] [address] [place], [place] [phone] Katharine Carbone, OD 230 [place] [address] documented as of this encounter Visit Diagnoses Not on filedocumented in this encounter Additional Health Concerns Assessment Noted Time PHQ-9 Depression Total Score: 14 025 1:25 PM EDT documented as of this encounter Care Teams Injection Mold Technician Relationship Specialty Start Date End Date Tyesha Rogers MD 230 [place] [address] PCP - General Family Medicine 04/25/19 Hi Cortez, PharmD 230 [place], [place] [phone] Pharmacist Pharmacy 08/04/25 documented as of this encounter
--- OUTSIDE RECORDS SUMMARY | 2025-09-08 18:14 | XMS_ITS | Encounter Summary ---
Author Organization [employer] Address [address] [place] [address] 7t [place] [address] Care Team Providers Care Physical Design Engineer Name Role Phone Tyesha Rogers MD Primary Care Provider [phone] Hi Crotez PharmD Unavailable [phone] Encounter Details Date Type Department Care Team ([facility] Contact Info) Description 06/27/2025 Orders Only [facility] 230 [place] [address] Provider, MD Jhony Social History Tobacco Use [...] Description 09/19/2025 10:30 AM EST Clinical Support [facility] [address] [place] [address] Alva Frias RN 505 [place] [address] 09/30/2025 10:45 AM EST Office Visit [facility] 230 [place] [address] Tyesha Rogers MD 230 [place] [address] 10/23/2025 1:00 PM EST Office Visit [facility] [address] [place] [address] Katharine Carbone, OD 230 [place] [address] documented as of this encounter Procedures Procedure [...] documented as of this encounter Care Teams Physical Design Engineer Relationship Specialty Start Date End Date Tyesha Rogers MD 230 [place] [address] PCP - General Family Medicine 04/25/19 Hi Cortez, ManasD [address] [place] [address] Pharmacist Pharmacy 08/04/25 documented as of this encounter
--- OUTSIDE RECORDS SUMMARY | 2025-09-08 18:14 | XMS_ITS | Encounter Summary ---
Author Organization [employer] Address 75 [facility] 7 [place] [address] Care Team Providers Care Java Application Developer Name Role Phone Tyesha Rogers MD Primary Care Provider [phone] Hi Cortez PharmD Unavailable [phone] Reason for Visit * Reason Onset Date Comments fyi 07/07/2025 Encounter Details Date Type Department Care Team (Late st Contact Info) Description 07/07/2025 Telephone [facility] 230 [place], [place] [phone] Tyesha Rogers MD 230 [place], [place] [phone] fyi Social History Tobacco Use Types Packs/Day [...] does not from who Contact pt at [phone] documented in this encounter Plan of Treatment Upcoming Encounters Date Type Department Care Team (Late st Contact Info) Description 09/19/2025 10:30 AM EST Clinical Support [facility] [address] [place] [address] Alva Frias RN 505 [place] [address] 09/30/2025 10:45 AM EST Office Visit [facility] [address] [place] [address] Tyesha Rogers MD 230 [place] [address] 10/23/2025 1:00 PM EST Office Visit [facility] [address] [place] [address] [phone] Katharine Carbone, OD 230 [place] [address] documented as of this encounter Visit Diagnoses Not on filedocumented in this encounter Additional Health Concerns Assessment Noted Time PHQ-9 Depression Total Score: 14 025 1:25 PM EDT documented as of this encounter Care Teams Java Application Developer Relationship Specialty Start Date End Date Tyesha Rogers MD 230 [place] [address] PCP - General Family Medicine 04/25/19 Hi Cortez, ManasD [address] [place] [address] Pharmacist Pharmacy 08/04/25 documented as of this encounter
--- OUTSIDE RECORDS SUMMARY | 2025-09-08 18:14 | XMS_ITS | Encounter Summary ---
Author Organization [employer] Address 75 [facility] 7t [place] [address] Care Team Providers Care Air Carrier Inspector Name Role Phone Tyesha Rogers MD Primary Care Provider [phone] Hi Cortez PharmD Unavailable [phone] Encounter Details Date Type Department Care Team (Late st Contact Info) Description 12/10/2024 Orders Only [facility] 230 [place], [place] [phone] Tyesha Rogers MD 230 [place], [place] [phone] Neuropathy Social History Tobacco Use Types Packs/Day [...] 10:30 AM EST Clinical Support [facility] [address] [place] [address] Alva Frias, LUCIUS 505 [place] [address] 09/30/2025 10:45 AM EST Office Visit [facility] [address] [place] [address] Tyesha Rogers MD 230 [place] [address] 10/23/2025 1:00 PM EST Office Visit [facility] 267 [place] [address] Katharine Carbone, OD 230 [place] [address] documented as of this encounter Visit Diagnoses Diagnosis Neuropathy Mononeuritis of unspecified site documented in this encounter Additional Health Concerns Assessment Noted Time PHQ-9 Depression Total Score: 15 025 11:52 AM EST documented as of this encounter Care Teams Air Carrier Inspector Relationship Specialty Start Date End Date Tyesha Rogers MD 230 [place] [address] PCP - General Family Medicine 04/25/19 Hi Cortez, ManasD [address] [place] [address] Pharmacist Pharmacy 08/04/25 documented as of this encounter
--- OUTSIDE RECORDS SUMMARY | 2025-09-08 18:14 | XMS_ITS | Encounter Summary ---
Author Organization [employer] Address 75 [facility] 7 [place] [address] Care Team Providers Care Home Care Nurse Name Role Phone Tyesha Rogers MD Primary Care Provider [phone] Hi Cortez PharmD Unavailable [phone] Reason for Visit * Reason Onset Date Comments Nurse Triage 11/01/2023 Encounter Details Date Type Department Care Team (Late st Contact Info) Description 11/01/2023 Telephone [facility] 230 [place], [place] [phone] Tyesha Rogers MD 230 [place], [place] [phone] Nurse Triage Social History Tobacco Use Types [...] disposition at this time and [facility] of [facility]F [...] Description 09/19/2025 10:30 AM EST Clinical Support [facility] [address] [place] [address] Alva Frias RN 505 [place] [address] 09/30/2025 10:45 AM EST Office Visit [facility] 230 [place] [address] Tyesha Rogers MD 230 [place] [address] 10/23/2025 1:00 PM EST Office Visit [facility] 267 [place] [address] Katahrine Carbone OD 230 [place] [address] documented as of this encounter Visit Diagnoses Not on filedocumented in this encounter Additional Health Concerns Assessment Noted Time PHQ-9 Depression Total Score: 21 023 9:42 AM EDT documented as of this encounter Care Teams Home Care Nurse Relationship Specialty Start Date End Date Tyesha Rogers MD 230 [place] [address] PCP - General Family Medicine 04/25/19 Hi Cortez, ManasD 230 [place] [address] Pharmacist Pharmacy 08/04/25 documented as of this encounter
--- OUTSIDE RECORDS SUMMARY | 2025-09-08 18:14 | XMS_ITS | Encounter Summary ---
Author Organization [employer] Address 75 [facility] 7 [place] [address] Care Team Providers Care Central Service Tech Name Role Phone Tyesha Rogers MD Primary Care Provider [phone] Hi Cortez PharmD Unavailable [phone] Reason for Visit * Reason Comments Med Refill Encounter Details Date Type Department Care Team (Late st Contact Info) Description 11/29/2023 Refill [facility] 230 [place], [place] [phone] Tyesha Rogers MD 230 [place], [place] [phone] Social History Tobacco Use Types Packs/Day Years [...] 09/19/2025 10:30 AM EST Clinical Support [facility] [address] [place] [address] Alva Frias, LUCIUS 505 [place] [address] 09/30/2025 10:45 AM EST Office Visit [facility] [address] [place] [address] Tyesha Rogers MD 230 [place] [address] 10/23/2025 1:00 PM EST Office Visit [facility] 267 [place] [address] RafKatharine fu, OD 230 [place] [address] documented as of this encounter Visit Diagnoses Not on filedocumented in this encounter Additional Health Concerns Assessment Noted Time PHQ-9 Depression Total Score: 21 023 9:42 AM EDT documented as of this encounter Care Teams Central Service Tech Relationship Specialty Start Date End Date Tyesha Rogers MD [address] [place] [address] PCP - General Family Medicine 04/25/19 Hi Cortez, PharmD 230 [place] [address] Pharmacist Pharmacy 08/04/25 documented as of this encounter
--- OUTSIDE RECORDS SUMMARY | 2025-09-08 18:14 | XMS_ITS | Encounter Summary ---
Author Organization [employer] Address 75 [facility] 7t [place] [address] Care Team Providers Care Residential Builder Name Role Phone Tyesha Rogers MD Primary Care Provider [phone] Hi Cortez PharmD Unavailable [phone] Encounter Details Date Type Department Care Team (Late st Contact Info) Description 02/21/2025 Orders Only [facility] 230 [place], [place] [phone] Tyesha Rogers MD 230 [place], [place] [phone] Social History Tobacco Use Types Packs/Day Years [...] Description 09/19/2025 10:30 AM EST Clinical Support [facility] [address] [place] [address] Alva Frias, LUCIUS 505 [place] [address] 09/30/2025 10:45 AM EST Office Visit [facility] [address] [place] [address] Tyesha Rogers MD 230 [place] [address] 10/23/2025 1:00 PM EST Office Visit [facility] OPTOMETRY 267 [place] [address] Katharine Carbone, OD 230 [place] [address] documented as of this encounter Visit Diagnoses Not on filedocumented in this encounter Additional Health Concerns Assessment Noted Time PHQ-9 Depression Total Score: 14 025 1:25 PM EDT documented as of this encounter Care Teams Residential Builder Relationship Specialty Start Date End Date Tyesha Rogers MD [address] [place] [address] PCP - General Family Medicine 04/25/19 Hi Cortez, ManasD [address] [place] [address] Pharmacist Pharmacy 08/04/25 documented as of this encounter
--- OUTSIDE RECORDS SUMMARY | 2025-09-08 18:14 | XMS_ITS | Encounter Summary ---
Author Organization [employer] Address 75 [facility] 7 [place] [address] Care Team Providers Care Mri Ct Tech Name Role Phone Tyesha Rogers MD Primary Care Provider [phone] iH Cortez PharmD Unavailable [phone] Reason for Visit * Reason Onset Date Comments Nurse Triage 08/30/2023 Encounter Details Date Type Department Care Team (Late st Contact Info) Description 08/30/[address] [facility]INE 230 [place], [place] [phone] Tyesha Rogers MD 230 [place], [place] [phone] Nurse Triage Social History Tobacco Use Types [...] Call to Emily Tucker, reports currently with [facility]. Pt reported CP and elevated BS. Pt alert and speaking clearly while carton wrapper. Sent to team for ER status check [...] and stated is on her way to [facility]. * Telephone Encounter - Blanca Rashid [...] 10:30 AM EST Clinical Support [facility] MED[facility] [address] [place] [address] Alva Frias, LUCIUS 505 [place] [address] 09/30/2025 10:45 AM EST Office Visit [facility] 230 [place] [address] Tyesha Rogers MD 230 [place] [address] 10/23/2025 1:00 PM EST Office Visit [facility] OPTOMETRY 267 [place] [address] Raf, Katharine, OD 230 [place] [address] documented as of this encounter Visit Diagnoses Not on filedocumented in this encounter Additional Health Concerns Assessment Noted Time PHQ-9 Depression Total Score: 21 023 9:42 AM EDT documented as of this encounter Care Teams Mri Ct Tech Relationship Specialty Start Date End Date Tyesha Rogers MD [address] [place] [address] PCP - General Family Medicine 04/25/19 Hi Cortez, PharmD [address] [place] [address] Pharmacist Pharmacy 08/04/25 documented as of this encounter
--- OUTSIDE RECORDS SUMMARY | 2025-09-08 18:14 | XMS_ITS | Encounter Summary ---
Author Organization [employer] Address [address] [place] [address] 7t [place] [address] Care Team Providers Care Cordwainer Name Role Phone Tyesha Rogers MD Primary Care Provider [phone] Hi Cortez PharmD Unavailable Encounter Details Date Type Department Care Team (Late st Contact Info) Description 08/30/2022 Abstract [facility] 230 [place], [place] [phone] Tyesha Rogers MD 230 [place], [place] [phone] Social History Tobacco Use Types Packs/Day Years [...] Clinical Support [facility] 230 [place] [address] Alva Frias, RN 505 [place] [address] 09/30/2025 10:45 AM EST Office Visit [facility] 230 [place] [address] Tyesha Rogers MD 230 [place] [address] 10/23/2025 1:00 PM EST Office Visit [facility] OPTOMETRY 267 [place] [address] Raf, Katharine, OD 230 [place] [address] documented as of this encounter Visit Diagnoses Not on filedocumented in this encounter Additional Health Concerns Assessment Noted Time PHQ-9 Depression Total Score: 9 08/18/20 22 11:40 AM EST documented as of this encounter Care Teams Cordwainer Relationship Specialty Start Date End Date Tyesha Rogers MD [address] [place] [address] PCP - General Family Medicine 04/25/19 Hi Cortez, PharmD [address] [place] [address] Pharmacist Pharmacy 08/04/25 documented as of this encounter
--- OUTSIDE RECORDS SUMMARY | 2025-09-08 18:14 | XMS_ITS | Encounter Summary ---
Author Organization [employer] Address [address] [place] [address] 7t [place] [address] Care Team Providers Care Professor Sculpture Name Role Phone Tyesha Rogers MD Primary Care Provider [phone] Hi Cortez PharmD Unavailable [phone] Encounter Details Date Type Department Care Team (Late st Contact Info) Description 08/08/[address] [address] ProviderJhony MD Social History Tobacco Use Types [...] Description 09/19/2025 10:30 AM EST Clinical Support [address] [address] Alva Frias RN 505 [place] [address] 09/30/2025 10:45 AM EST Office Visit [address] [address] Tyesha Rogers MD [address] [place] [address] 10/23/2025 1:00 PM EST Office Visit [facility] OPTOMETRY [address] [place] [address] Katharine Carbone, OD 230 [place] [address] documented as of this encounter Visit Diagnoses Not on filedocumented in this encounter Care Teams Professor Sculpture Relationship Specialty Start Date End Date Tyesha Rogers MD 230 [place] [address] PCP - General Family Medicine 04/25/19 Hi Cortez, PharmD [address] [place] [address] [phone] Pharmacist Pharmacy 08/04/25 documented as of this encounter
--- OUTSIDE RECORDS SUMMARY | 2025-09-08 18:14 | XMS_ITS | Encounter Summary ---
Author Organization [employer] Address [address] [place] [address] 7 [place] [address] Care Team Providers Care Top Distribution Executive Name Role Phone Tyesha Rogers MD Primary Care Provider [phone] Hi Cortez PharmD Unavailable [phone] Encounter Details Date Type Department Care Team (Late st Contact Info) Description 08/11/2022 Orders Only [facility] [address] [place] [address] Loren Oliva MD [address] [place] [address] Social History Tobacco Use Types Packs/Day Years [...] 10:30 AM EST Clinical Support [facility] [address] [place] [address] Alva Frias RN 505 [place] [address] 09/30/2025 10:45 AM EST Office Visit [address] [address] Tyesha Rogers MD 230 [place], [place] [phone] 10/23/2025 1:00 PM EST Office Visit [facility] [address] [place], [place] [phone] Raf Katharine, OD 230 [place], [place] [phone] documented as of this encounter Visit Diagnoses Not on filedocumented in this encounter Care Teams Top Distribution Executive Relationship Specialty Start Date End Date Tyesha Rogers MD [address] [place] [address] [phone] PCP - General Family Medicine 04/25/19 Hi Cortez, PharmD [address] [place] [address] [phone] Pharmacist Pharmacy 08/04/25 documented as of this encounter
--- OUTSIDE RECORDS SUMMARY | 2025-09-08 18:14 | XMS_ITS | Encounter Summary ---
Author Organization [employer] Address 75 [facility] 7t [place] [address] Care Team Providers Care Drawing Instructor Name Role Phone Tyesha Rogers MD Primary Care Provider [phone] Hi Cortez PharmD Unavailable [phone] Reason for Visit * Reason Onset Date Comments Order(s) 09/06/2023 Encounter Details Date Type Department Care Team ([facility] st Contact Info) Description 09/06/2023 Telephone [facility] 230 [place], [place] [phone] Tyesha Rogers MD 230 [place], [place] [phone] Order(s) Social History Tobacco Use Types Packs/Day [...] 9:17 AM EST Please disregard previous message, Press Operator Meat faxed orders. * Telephone Encounter - Silvino Gilliland - 09/06/2023 2:15 PM EST Tc clement Pike working with [facility] requesting order for diagnostic mammogram and ultrasound bi lateral 09/08/23 at 1:00 pm. If any questions please contact Glendy at [phone] documented in this encounter Plan of Treatment Upcoming Encounters Date Type Department Care Team (Late st Contact Info) Description 09/19/2025 10:30 AM EST Clinical Support [facility] [address] [place] [address] Alva Frias, LUCIUS 505 [place] [address] 09/30/2025 10:45 AM EST Office Visit [facility] 230 [place], [place] [phone] Tyesha Rogers MD 230 [place], [place] [phone] 10/23/2025 1:00 PM EST Office Visit [facility] [address] [place], [place] [phone] Raf, Katharine, OD 230 [place] [address] documented as of this encounter Visit Diagnoses Not on filedocumented in this encounter Additional Health Concerns Assessment Noted Time PHQ-9 Depression Total Score: 21 023 9:42 AM EDT documented as of this encounter Care Teams Drawing Instructor Relationship Specialty Start Date End Date Tyesha Rogers MD 230 [place], [place] [phone] PCP - General Family Medicine 04/25/19 Hi Cortez, PharmD [address] [place] [address] Pharmacist Pharmacy 08/04/25 documented as of this encounter
--- OUTSIDE RECORDS SUMMARY | 2025-09-08 18:14 | XMS_ITS ---
Author Organization [employer] Address [address] [place] [address] 7 [place] [address] Care Team Providers Care Cigar Making Supervisor Name Role Phone Tyesha Rogers MD Primary Care Provider [phone] Hi Cortez PharmD Unavailable [phone] [facility] Status:Enrolled (Active) Start date:12/11/2024 Enrollment date:12/11/2024 Enrollment reason:ADT Feed Overview ED- Pt went to [facility] ED on 12/10/24. Case Team Name Relationship Phone Aminata York(Responsible Staff) 1 [phone] Continued Care and Services Coordination
--- OUTSIDE RECORDS SUMMARY | 2025-09-08 18:14 | XMS_ITS | Encounter Summary ---
Author Organization [email or web address] Address 75 [facility] 7t [place] [address] Care Team Providers Care Business Intelligence Consultant Name Role Phone Tyesha Rogers MD Primary Care Provider [phone] Hi Cortez PharmD Unavailable [phone] Encounter Details Date Type Department Care Team ([facility] st Contact Info) Description 11/01/2023 Telephone [facility] 230 [place], [place] [phone] Tyesha Rogers MD 230 [place], [place] [phone] Social History Tobacco Use Types Packs/Day Years [...] Description 09/19/2025 10:30 AM EST Clinical Support [facility] [address] [place] [address] Alva Frias, LUCIUS 505 [place] [address] 09/30/2025 10:45 AM EST Office Visit [facility] 230 [place] [address] Tyesha Rogers MD 230 [place] [address] 10/23/2025 1:00 PM EST Office Visit [facility] OPT[facility] 267 [place] [address] RafKatharine fu, OD 230 [place] [address] documented as of this encounter Visit Diagnoses Not on filedocumented in this encounter Additional Health Concerns Assessment Noted Time PHQ-9 Depression Total Score: 21 023 9:42 AM EDT documented as of this encounter Care Teams Business Intelligence Consultant Relationship Specialty Start Date End Date Tyesha Rogers MD [address] [place] [address] PCP - General Family Medicine 04/25/19 Hi Cortez, PharmD [address] [place] [address] Pharmacist Pharmacy 08/04/25 documented as of this encounter
--- OUTSIDE RECORDS SUMMARY | 2025-09-08 18:14 | XMS_ITS | Encounter Summary ---
Author Organization [email or web address] Address [address] [facility] 7t [place] [address] Care Team Providers Care Customer Data Technician Name Role Phone Tyesha Rogers MD Primary Care Provider [phone] Hi Cortez PharmD Unavailable [phone] Encounter Details Date Type Department Care Team ([facility] st Contact Info) Description 07/17/2023 Orders Only [facility] MED[facility]INE [address] [place], [place] [phone] Kinjal Ch MD 230 [place], [place] [phone] Social History Tobacco Use Types Packs/Day Years [...] your housing situation today? I have [place] 07/05/[address] you [...] AM EST Clinical Support [facility]INE [address] [place] [address] Alva Frias, LUCIUS [address] [place] [address] 09/30/2025 10:45 AM EST Office Visit [facility] [address] [place] [address] Tyesha Rogers MD 230 [place] [address] 10/23/2025 1:00 PM EST Office Visit [facility] OPTOMETRY [address] [place] [address] Raf, Katharine, OD 230 [place] [address] documented as of this encounter Visit Diagnoses Not on filedocumented in this encounter Additional Health Concerns Assessment Noted Time PHQ-9 Depression Total Score: 21 023 9:42 AM EDT documented as of this encounter Care Teams Customer Data Technician Relationship Specialty Start Date End Date Tyesha Rogers MD [address] [place] [address] PCP - General Family Medicine 04/25/19 Hi Cortez, PharmD [address] [place] [address] Pharmacist Pharmacy 08/04/25 documented as of this encounter
--- OUTSIDE RECORDS SUMMARY | 2025-09-08 18:14 | XMS_ITS | Encounter Summary ---
Author Organization [employer] Address [address] [facility] 7t [place] [address] Care Team Providers Care Contract Associate Manager Name Role Phone Tyesha Rogers MD Primary Care Provider [phone] Hi Cortez PharmD Unavailable [phone] Reason for Visit * Reason Onset Date Comments Med Refill 07/29/2025 Encounter Details Date Type Department Care Team ([facility] st Contact Info) Description 07/29/2025 Telephone [facility] [address] [place], [place] [phone] Tyesha Rogers MD [address] [place], [place] [phone] Med Refill Social History Tobacco Use Types [...] 100 MG tablet To be sent to: [facility] - [place], [place] - [address] [facility] documented in this encounter Plan of Treatment Upcoming Encounters Date Type Department Care Team (Late st Contact Info) Description 09/19/2025 10:30 AM EST Clinical Support [facility] 230 [place] [address] Alva Frias RN 505 [place] [address] 09/30/2025 10:45 AM EST Office Visit [facility] 230 [place] [address] Tyesha Rogers MD [address] [place] [address] 10/23/2025 1:00 PM EST Office Visit [facility] OPTOMETRY 267 [place] [address] Katharine Carbone, OD 230 [place] [address] documented as of this encounter Goals Goal [...] Weekly blood pressure task No Holden, Marcy, COLLEGE PHYSICS INSTRUCTOR Weekly blood pressure task Care Plan Weekly blood pressure task No Holden, Marcy, COLLEGE PHYSICS INSTRUCTOR Patient has chronic kidney disease Care Plan Patient has chronic kidney disease No Holden, Marcy, COLLEGE PHYSICS INSTRUCTOR Patient has chronic kidney disease Care Plan Patient has chronic kidney disease No Holden Marcy, COLLEGE PHYSICS INSTRUCTOR Weekly blood pressure task Care Plan Weekly [...] Weekly blood pressure task No Franklyn Randa, AGRICULTURE PROFESSOR Weekly blood pressure task Care Plan Weekly blood pressure task No Franklyn, Randa, AGRICULTURE PROFESSOR Patient has chronic kidney disease Care Plan Patient has chronic kidney disease No Franklyn Randa, AGRICULTURE PROFESSOR Patient has chronic kidney disease Care Plan Patient has chronic kidney disease No Franklyn Randa, AGRICULTURE PROFESSOR Weekly blood pressure task Care Plan Weekly [...] documented as of this encounter Care Teams Contract Associate Manager Relationship Specialty Start Date End Date Tyesha Rogers MD [address] [place] [address] PCP - General Family Medicine 04/25/19 Hi Cortez, ManasD [address] [place] [address] Pharmacist Pharmacy 08/04/25 documented as of this encounter
--- OUTSIDE RECORDS SUMMARY | 2025-09-08 18:14 | XMS_ITS | Encounter Summary ---
Author Organization [email or web address] Address [address] [facility] 7t [place] [address] Care Team Providers Care Case Coordinator Name Role Phone Tyesha Rogers MD Primary Care Provider Hi Cortez PharmD Unavailable [phone] Reason for Referral * Consultation (Urgent) - Closed Specialty Diagnoses / Procedures Referred By Contangel ro Referred To Contact Neurology Diagnoses Multiple sclerosis Tyesha Rogers MD 230 [place] [address] Phone: tel: fax: [facility] Neurology [address] [place] [address] Phone: tel: fax: Referral ID Status Reason Start Date Expiration Date V isits Requested Visits Authorized [id number] Closed Specialty Services Required 07/02/2025 07/02/2026 6 6 Encounter Details Date Type Department Care Team (Late st Contact Info) Description 07/02/2025 Orders Only [facility] MED[facility]INE 230 [place] [address] Tyesha Rogers MD 230 [place], [place] [phone] Multiple sclerosis (Primary Dx) Social History Tobacco [...] Description 09/19/2025 10:30 AM EST Clinical Support [address] [address] Alva Frias RN 505 [place] [address] 09/30/2025 10:45 AM EST Office Visit [address] [address] Tyesha Rogers MD 230 [place] [address] 10/23/2025 1:00 PM EST Office Visit [facility] OPTOMETRY [address] [place], [place] [phone] Katharine Carbone, OD 230 [place] [address] Scheduled Referrals Name Type Priority Associated Diagnoses Orde r Schedule Referral to Neurology Outpatient Referral Urgent Multiple sclerosis Expected: 07/02/2025 (Approximate), Expires: 07/02/2026 documented as of this encounter Visit Diagnoses Diagnosis Multiple sclerosis- Primary documented in this encounter Additional Health Concerns Assessment Noted Time PHQ-9 Depression Total Score: 14 025 1:25 PM EDT documented as of this encounter Care Teams Case Coordinator Relationship Specialty Start Date End Date Tyesha Rogers MD [address] [place] [address] PCP - General Family Medicine 04/25/19 Hi Cortez, PharmD [address] [place] [phone] Pharmacist Pharmacy 08/04/25 documented as of this encounter
--- OUTSIDE RECORDS SUMMARY | 2025-09-08 18:14 | XMS_ITS | Encounter Summary ---
Author Organization [employer] Address [address] [place] [address] 7 [place] [address] Care Team Providers Care Childcare Aide Name Role Phone Tyesha Rogers MD Primary Care Provider [phone] Hi Cortez PharmD Unavailable [phone] Reason for Referral * Consultation (Routine) - Closed Specialty Diagnoses / Procedures Referred By Contangel ro Referred To Contact Pharmacy Diagnoses SBO (small bowel obstruction) (HCC) Tati Neri, PharmD 230 [place] [address] Phone: tel: fax: Referral ID Status Reason Start Date Expiration Date V isits Requested Visits Authorized [id number] Closed Continuity of Care 12/07/2023 12/06/2024 1 1 Encounter Details Date Type Department Care Team (Late st Contact Info) Description 12/07/2023 Orders Only [facility] 230 [place] [address] Tati Neri, PharmD [address] [place], [place] [phone] SBO (small bowel obstruction) (CMS/HCC) (Primary Dx) [...] Description 09/19/2025 10:30 AM EST Clinical Support [facility] [address] [place] [address] Alva Frias RN 505 [place] [address] 09/30/2025 10:45 AM EST Office Visit [facility] [address] [place] [address] Tyesha Rogers MD [address] [place] [address] 10/23/2025 1:00 PM EST Office Visit [facility] OPTOMETRY [address] [place] [address] Katharine Carbone, OD [address] [place] [address] Scheduled Referrals Name Type Priority Associated Diagnoses [...] documented as of this encounter Care Teams Childcare Aide Relationship Specialty Start Date End Date Tyesha Rogers MD [address] [place] [address] PCP - General Family Medicine 04/25/19 Hi Cortez, PharmD [address] [place] [address] Pharmacist Pharmacy 08/04/25 documented as of this encounter
--- OUTSIDE RECORDS SUMMARY | 2025-09-08 18:14 | XMS_ITS | Encounter Summary ---
Author Organization [employer] Address [address] [facility] 7t [place] [address] Care Team Providers Care Hvac Services Professional Name Role Phone Tyesha Rogers MD Primary Care Provider [phone] Hi Cortez PharmD Unavailable [phone] Encounter Details Date Type Department Care Team (Late st Contact Info) Description 10/10/2022 Orders Only [facility] MEDICINE 230 [place], [place] [phone] Tyesha Rogers MD 230 [place], [place] [phone] Hypothyroidism, unspecified type (Primary Dx); Elevated TSH; [...] Description 09/19/2025 10:30 AM EST Clinical Support [facility] MED[facility]INE [address] [place] [address] Alva Frias, LUCIUS 505 [place] [address] 09/30/2025 10:45 AM EST Office Visit [facility] MED[facility]INE 230 [place] [address] Tyesha Rogers MD 230 [place] [address] 10/23/2025 1:00 PM EST Office Visit [facility] OPTOMETRY [address] [place] [address] Katharine Carbone, OD 230 [place] [address] Scheduled Orders Name Type Priority Associated Diagnoses [...] documented as of this encounter Care Teams Hvac Services Professional Relationship Specialty Start Date End Date Tyesha Rogers MD [address] [place] [address] PCP - General Family Medicine 04/25/19 Hi Cortez, ManasD [address] [place] [address] Pharmacist Pharmacy 08/04/25 documented as of this encounter
--- OUTSIDE RECORDS SUMMARY | 2025-09-08 18:14 | XMS_ITS | Encounter Summary ---
Author Organization [employer] Address [address] [place] [address] 7 [place] [address] Care Team Providers Care Medical Office Supervisor Name Role Phone Tyehsa Rogers MD Primary Care Provider [phone] Hi Cortez PharmD Unavailable [phone] Reason for Referral * Consultation (Routine) - Closed Specialty Diagnoses / Procedures Referred By Contangel t Referred To Contact Diagnoses Type 2 diabetes mellitus with hyperglycemia, with long-term current use of insulin (HCC) Hypertension, unspecified type Multiple sclerosis Tyesha Rogers MD [address] [place] [address] Phone: tel: fax: [address] [address] Phone: tel: fax: Referral ID Status Reason Start Date Expiration Date V isits Requested Visits Authorized [id number] Closed Specialty Services Required 11/15/2024 11/15/2025 1 1 Encounter Details Date Type Department Care Team (Late st Contact Info) Description 11/15/2024 Orders Only [facility] MEDICINE [address] [place] [address] Tyesha Rogers MD [address] [place] [address] Type 2 diabetes mellitus with hyperglycemia, with long-term current use of insulin (CMS/HCC) (Primary Dx); Hypertension, unspecified type; Multiple sclerosis (CMS/HCC); Type 2 diabetes mellitus with hyperglycemia (CMS/HCC); Type 2 diabetes mellitus with hyperglycemia, with long-term current use of insulin (CMS/[facility]) Social History Tobacco Use Types Packs/Day Years [...] Description 09/19/2025 10:30 AM EST Clinical Support [facility] MEDICINE [address] [place] [address] Alva Frias, LUCIUS 505 [place] [address] 09/30/2025 10:45 AM EST Office Visit [facility] MEDICINE 230 [place] [address] Tyesha Rogers MD 230 [place], [place] 10/23/2025 1:00 PM EST Office Visit [facility] OPTOMETRY [address] [place] [phone] Raf, Katharine, OD 230 [place] [address] Scheduled Referrals Name Type Priority Associated Diagnoses [...] as of this encounter Care Teams Medical Office Supervisor Relationship Specialty Start Date End Date Tyesha Rogers MD [address] [place] [address] PCP - General Family Medicine 04/25/19 iH Cortez, ManasD [address] [place] [address] Pharmacist Pharmacy 08/04/25 documented as of this encounter
--- OUTSIDE RECORDS SUMMARY | 2025-09-08 18:14 | XMS_ITS | Encounter Summary ---
Author Organization [employer] Address [address] [facility] 7t [place] [address] Care Team Providers Care Tobacco Weigher Name Role Phone Tyesha Rogers MD Primary Care Provider [phone] Hi Cortez PharmD Unavailable [phone] Encounter Details Date Type Department Care Team ([facility] st Contact Info) Description 07/23/2025 Results Follow-Up [facility] MEDICINE 230 [place], [place] [phone] Samantha [place], ANP 230 [place] [address] Culture, Urine, Routine Social History Tobacco Use [...] si tiene preguntas. Take care, Cu??Samantha valdez LEATHER SORTER documented in this encounter Plan of Treatment Upcoming Encounters Date Type Department Care Team (Late st Contact Info) Description 09/19/2025 10:30 AM EST Clinical Support [facility] MEDICINE [address] [place] [address] Alva Frias RN 505 [place] [address] 09/30/2025 10:45 AM EST Office Visit [facility] MEDICINE [address] [place] [address] Tyesha Rogers MD [address] [place] [address] 10/23/2025 1:00 PM EST Office Visit [facility] OPTOMETRY [address] [place] [address] Katharine Carbone, OD 230 [place] [address] documented as of this encounter Goals Goal [...] as of this encounter Care Teams Tobacco Weigher Relationship Specialty Start Date End Date Tyesha Rogers MD 230 [place] [address] PCP - General Family Medicine 04/25/19 Hi Cortez, ManasD [address] [place] [address] Pharmacist Pharmacy 08/04/25 documented as of this encounter
--- OUTSIDE RECORDS SUMMARY | 2025-09-08 18:14 | XMS_ITS | Clinical Summary ---
Author Organization [address] [place] [address] [place] [phone] Phone Care Team Providers [employer] Correspondent Name Role Phone Tyesha Rogers MD Primary Care Provider [phone] Allergies Active Allergy Reactions Criticality Noted Date Comments Divalproex 10/18/2024 Fluoxetine 03/18/2015 Iodinated Contrast Media Anaphylaxis High 08/13/2025 Patient states she had facial swelling, hives and difficulty breathing on 08/12/25 outside hospital required 2 doses of epinephrine, steroids and Benadryl, even with pretreatment. Lisinopril Cough,Unknown Medium 05/30/2017 Other reaction(s): Unknown/Patient and Family Unable to Define Lisinopril-Hydrochloroth iazide Cough 12/06/2016 Channing High 12/04/2018 Other reaction(s): stiffened up & [...] - 08/14/2025 1:06 PM EST Hospital Encounter [facility] [address] [place] [address] Rose Marie León MD Touriel, MD Bob Baez, MD Quinn Royal Christopher, MD Zipagan, Ray Madden MD Generalized abdominal pain (Primary Dx); Acute leg pain, right; Constipation, unspecified constipation type; Hypomagnesemia; Hyperglycemia due to diabetes mellitus ([facility] V24, [facility] V28) Discharge Disposition: Home or Self Care 06/25/2025 5:45 PM EDT - 06/25/2025 11:45 PM EDT Emergency [facility] Emergency [address] [place] [phone] Elliot Estevez MD Kokkinos, Erika, MD Nausea vomiting and diarrhea (Primary Dx) Discharge Disposition: Home or Self Care 06/23/2025 1:55 AM EDT - 06/23/2025 5:07 AM EDT Emergency [facility] [address] [place] [phone] Nausea and vomiting, unspecified vomiting type (Primary Dx); Hematemesis with nausea; Hypomagnesemia; Gastroesophageal reflux disease with esophagitis without hemorrhage Discharge Disposition: Home or Self Care 06/15/2025 9:49 AM EDT - 06/15/2025 12:58 PM EDT Emergency [facility] [address] [place] [address] Carmelo Coronado MD Vertigo (Primary [...] TUBAL LIGATION UPPER GASTROINTESTINAL ENDOSCOPY 01/23/15 PROCEDURE: CT UPPER GI ENDOSCOPY PERFORMED OTHER SURGICAL HISTORY 02/2016 PROCEDURE: CT ARTHRODESIS ANTERIOR SPINAL DFRM 4-7 VRT SGM Medical History Medical History Date Comments Essential hypertension, benign D X:Essential hypertension, benign Bipolar disorder (CMS/HCC V2 4, CMS/HCC V28) DX:Bipolar disorder ([facility]); C OMMENT: not seeing behavioral health PTSD [...] Childhood onset. Lubiprostone/Amitiza [facility]. Intermittent asthma 04/13/2015 DX:Intermitt ent asthma Hyperlipidemia DX:Hyperlipidemi a Fibromyalgia DX:Fibromyalgia Tobacco abuse 05/17/2017 DX:Tobacco abuse Multiple sclerosis 06/27/2015 DX:Multiple s clerosis (HCC); COMMENT: Follows with Dr. Luna Drug abuse (CMS/HCC V24, CMS/HCC V28) Pulmonary emboli (CMS/HCC V2 4, CMS/[facility] V28) 2023 per pt report/on elequis Deep vein thrombosis ([facility]/ C V24, CMS/HCC V28) 2023 per pt [...] - 100 mg/dL 08/14/2025 11:26 AM EST [facility] Blood Capillary blood specimen / Unknown 08/14/2025 11:26 AM EST 08/14/2025 11:28 AM EST Ray Trinh MD LAB POINT OF CARE TE ST DOCKED DEVICE UNSOLICITED RESULTS Final Result [facility] [address] [place] [address], [place] [phone] * XR Chest 2 Views (08/14/2025 9:13 [...] Signed Date: 08/14/2025 09:37 ET Workstation ID: [id number] Transcribed By: Self Edit Transcribed Date: 08/14/2025 [...] Signed Date: 08/14/2025 09:37 ET Workstation ID: [id number] Transcribed By: Self Edit Transcribed Date: 08/14/2025 09:36 ET Jeremiah FARR IMG XR PROCEDURES Final R esult * CBC auto differential (08/14/2025 6:23 AM EST) Only the most recent of5 resultswithin the time period is included. WBC 8.7 4.8 - 10.8 K/mcL LAB HEMETOLOGY METHOD 08/14/2025 7:26 AM [facility] RBC 4.10 3.80 - 4.80 M/mcL LAB HEMETOLOGY METHOD 08/14/2025 7:26 AM [facility] Hemoglobin 11.7 11.5 - 16.0 g/dL LAB HEMETOLOGY METHOD 08/14/2025 7:26 AM [facility] Hematocrit 35.8 35.0 - 47.0 % LAB HEMETOLOGY METHOD 08/14/2025 7:26 AM [facility] MCV 87.7 79.0 - 98.0 FL LAB HEMETOLOGY METHOD 08/14/2025 7:26 AM [facility] MCH 28.7 27.0 - 32.0 pcg LAB HEMETOLOGY METHOD 08/14/2025 7:26 AM [facility] MCHC 32.7 32.0 - 37.0 g/dL LAB HEMETOLOGY METHOD 08/14/2025 7:26 AM [facility] RDW 12.7 11.0 - 15.0 % LAB HEMETOLOGY METHOD 08/14/2025 7:26 AM [facility] Platelets 250 130 - 400 K/mcL LAB HEMETOLOGY METHOD 08/14/2025 7:26 AM [facility] MPV 9.5 7.0 - 11.0 FL LAB HEMETOLOGY METHOD 08/14/2025 7:26 AM [facility] NRBC 0.0 <1.0 % LAB HEMETOLOGY METHOD 08/14/2025 7:26 AM [facility] NRBC Absolute 0.00 <0.10 K/mcL LAB HEMETOLOGY METHOD 08/14/2025 7:26 AM [facility] Neutrophils Relative 67.8 % LAB HEMETOLOGY METHOD 08/14/2025 7:26 AM [facility] Lymphocytes Relative 23.7 % LAB HEMETOLOGY METHOD 08/14/2025 7:26 AM [facility] Monocytes Relative 5.7 % LAB HEMETOLOGY METHOD 08/14/2025 7:26 AM [facility] Eosinophils Relative 2.1 % LAB HEMETOLOGY METHOD 08/14/2025 7:26 AM [facility] Basophils Relative 0.5 % LAB HEMETOLOGY METHOD 08/14/2025 7:26 AM [facility] Immature Granulocytes Relative 0.2 % LAB HEMETOLOGY METHOD 08/14/2025 7:26 AM EST [facility] Neutrophils Absolute 5.88 1.50 - 7.00 K/mcL LAB HEMETOLOGY METHOD 08/14/2025 7:26 AM EST [facility] Lymphocytes Absolute 2.05 1.00 - 5.00 K/mcL LAB HEMETOLOGY METHOD 08/14/2025 7:26 AM [facility] Monocytes Absolute 0.49 0.20 - 1.00 K/mcL LAB HEMETOLOGY METHOD 08/14/2025 7:26 AM [facility] Eosinophils Absolute 0.18 0.00 - 0.50 K/mcL LAB HEMETOLOGY METHOD 08/14/2025 7:26 AM [facility] Basophils Absolute 0.04 0.00 - 0.20 K/mcL LAB HEMETOLOGY METHOD 08/14/2025 7:26 AM [facility] Immature Granulocytes Absolute 0.02 0.00 - 0.03 K/mcL LAB HEMETOLOGY METHOD 08/14/2025 7:26 AM [facility] Blood Venous blood specimen / Unknown Venipuncture / Unknown 08/14/2025 6:23 AM EST 08/14/2025 7:10 AM EST us Jeremiah Ball MD LAB BLOOD ORDERABLES Final Result [facility] [address] [place] [address], * (ABNORMAL) Basic metabolic panel (08/14/2025 6:23 AM EST) Sodium 142 133 - 145 mmol/L 08/14/2025 7:55 AM [facility] Potassium 3.8 3.5 - 5.5 mmol/L 08/14/2025 7:55 AM [facility] Chloride 107 96 - 110 mmol/L 08/14/2025 7:55 AM [facility] CO2 25 21 - 32 mmol/L 08/14/2025 7:55 AM [facility] Anion Gap 10 3 - 11 08/14/2025 7:55 AM [facility] Glucose 212(H) 70 - 100 mg/dL 08/14/2025 7:55 AM [facility] BUN 16 5 - 25 mg/dL 08/14/2025 7:55 AM [facility] Creatinine 0.85 0.50 - 1.10 mg/dL 08/14/2025 7:55 AM [facility] eGFR 83 >=60 mL/min/1. 73m2 08/14/2025 7:55 AM [facility] Comment:Calculation based on the Chronic Kidney Disease Epidemiology Collaboration (CKD-EPI) equation refit without adjustment for race. BUN/Creatinine Ratio 18.8 08/14/2025 7:55 AM [facility] Calcium 8.3(L) 8.5 - 10.5 mg/dL 08/14/2025 7:55 AM [facility] Blood Venous blood specimen / Unknown Venipuncture / Unknown 08/14/2025 6:23 AM EST 08/14/2025 7:10 AM EST us Jeremiah Ball MD LAB BLOOD ORDERABLES Final Result [facility] [address] [place] [address], * Urinalysis with reflex microscopic and culture (08/13/2025 11:20 PM EST) Only the most recent of2 resultswithin the time period is included. Specific Arley Urine 1.020 1.003 - 1.030 LAB URINALYSIS - AUTOMATED METHOD 08/13/2025 11:46 PM [facility] pH, Urine 7.0 5.0 - 8.0 pH LAB URINALYSIS - AUTOMATED METHOD 08/13/2025 11:46 PM [facility] Leukocytes, Urine Negative Negative LAB URINALYSIS - AUTOMATED METHOD 08/13/2025 11:46 PM [facility] Nitrite, Urine Negative Negative LAB URINALYSIS - AUTOMATED METHOD 08/13/2025 11:46 PM [facility] Protein, Urine Negative <=Trace mg/dL LAB URINALYSIS - AUTOMATED METHOD 08/13/2025 11:46 PM [facility] Glucose, Urine Negative Negative mg/dL LAB URINALYSIS - AUTOMATED METHOD 08/13/2025 11:46 PM [facility] Ketones, Urine Negative Negative mg/dL LAB URINALYSIS - AUTOMATED METHOD 08/13/2025 11:46 PM [facility] Urobilinogen, Urine 1.0 0.2 - 1.0 mg/dL LAB URINALYSIS - AUTOMATED METHOD 08/13/2025 11:46 PM [facility] Bilirubin, Urine Negative Negative LAB URINALYSIS - AUTOMATED METHOD 08/13/2025 11:46 PM [facility] Blood, Urine Negative Negative LAB URINALYSIS - AUTOMATED METHOD 08/13/2025 11:46 PM [facility] Urine Urine specimen obtained by clean catch procedure / Unknown Non-blood Collection / Unknown 08/13/2025 11:20 PM EST 08/13/2025 11:39 PM EST us Jeremiah FARR LAB URINE ORDERABLES Yael sheth Result [facility] [address] [place] [address], * Pantoja urine culture tube (08/13/2025 11:20 PM EST) Only the most recent of4 resultswithin the time period is included. Pathologist [facility] Extra Tube Hold for add-ons. 08/14/2025 1:01 AM [facility] Comment:Auto resulted. Urine Urine specimen obtained by clean catch procedure / Unknown Non-blood Collection / Unknown 08/13/2025 11:20 PM EST 08/13/2025 11:38 PM EST Jeremiah FARR LAB URINE ORDERABLES Yael sheth Result [facility] [address] [place] [address], [place] [phone] * (ABNORMAL) Drug abuse screen 8a panel, urine (08/13/2025 11:20 PM EST) Pathologist [facility] Amphetamine Screen, Ur Negative Negative 08/14/2025 12:03 AM [facility] Comment:Certain OTC medicati ons containing ephedrine, phenylephrine, pseudoephedrine and phenylpropanolamine can cause false positive results. Barbiturate Screen, Ur Negative Negative 08/14/2025 12:03 AM [facility] Benzodiazepine Screen, Ur Negative Negative 08/14/2025 12:03 AM [facility] Cocaine Screen, Ur Negative Negative 2024 12:03 AM [facility] Opiate Screen, Ur Positive(A ) Negative 08/14/2025 12:03 AM [facility] Cannabinoid (THC) Screen, Ur Negative Negative 08/14/2025 12:03 AM [facility] Comment:Specimens from patie nts taking pantoprazole sodium (Protonix) have been shown to produce false positive results. Oxycodone Screen, Ur Negative Negative 12/2024 12:03 AM [facility] Fentanyl, Ur Negative Negative 08/14/2025 12:03 AM [facility] Urine Urine specimen obtained by clean catch procedure / Unknown Non-blood Collection / Unknown 08/13/2025 11:20 PM EST 08/13/2025 11:39 PM EST Narrative [facility] - 08/14/2025 12:03 AM [...] URINE ORDERABLES Final Result Performing Organization Address [facility] Co de Phone Number [facility] [address] [place] [address], [place] [phone] * Methadone, urine (08/13/2025 11:20 PM EST) [facility] Methadone Screen, Urine Negative Negative 08/14/2025 12:03 AM EST [facility] Comment: Assay cutoff [...] URINE ORDERABLES Final Result Performing Organization Address [facility]/ZIP Co de Phone Number [facility] [address] [place] [address], [place] [phone] * Respiratory virus panel molecular study (08/13/2025 11:04 PM EST) [facility] Adenovirus Detection by PCR Not Detected Not Detected LAB MICROBIOLOGY METHOD 08/14/2025 12:33 AM EST [facility] Influenza A PCR Not Detected Not Detected LAB MICROBIOLOGY METHOD 08/14/2025 12:33 AM [facility] Influenza B PCR Not Detected Not Detected LAB MICROBIOLOGY METHOD 08/14/2025 12:33 AM [facility] Coronavirus 229E Not Detected Not Detected LAB MICROBIOLOGY METHOD 08/14/2025 12:33 AM [facility] Coronavirus HKU1 Not Detected Not Detected LAB MICROBIOLOGY METHOD 08/14/2025 12:33 AM [facility] Coronavirus OC43 Not Detected Not Detected LAB MICROBIOLOGY METHOD 08/14/2025 12:33 AM [facility] Coronavirus NL63 Not Detected Not Detected LAB MICROBIOLOGY METHOD 08/14/2025 12:33 AM [facility] Parainfluenza Virus 1 Not Detected Not Detected LAB MICROBIOLOGY METHOD 08/14/2025 12:33 AM [facility] Parainfluenza Virus 2 Not Detected Not Detected LAB MICROBIOLOGY METHOD 08/14/2025 12:33 AM [facility] Parainfluenza Virus 3 Not Detected Not Detected LAB MICROBIOLOGY METHOD 08/14/2025 12:33 AM [facility] Parainfluenza Virus 4 Not Detected Not Detected LAB MICROBIOLOGY METHOD 08/14/2025 12:33 AM [facility] RSV PCR Not Detected Not Detected LAB MICROBIOLOGY METHOD 08/14/2025 12:33 AM [facility] Human Metapneumovirus A and B Not Detected Not Detected LAB MICROBIOLOGY METHOD 08/14/2025 12:33 AM [facility] Rhinovirus/Entero virus Not Detected Not Detected LAB MICROBIOLOGY METHOD 08/14/2025 12:33 AM [facility] Bordetella pertussis Not Detected Not Detected LAB MICROBIOLOGY METHOD 08/14/2025 12:33 AM [facility] Bordetella parapertussis Not Detected Not Detected LAB MICROBIOLOGY METHOD 08/14/2025 12:33 AM [facility] Mycoplasma pneumo by PCR Not Detected Not Detected LAB MICROBIOLOGY METHOD 08/14/2025 12:33 AM EST [facility] Chlamydia pneumoniae Not Detected Not Detected LAB MICROBIOLOGY METHOD 08/14/2025 12:33 AM EST [facility] SARS COV-2 Not Detected Not Detected LAB MICROBIOLOGY METHOD 08/14/2025 12:33 AM EST [facility] Swab Both anterior nares / Unknown Non-blood Collection / Unknown 08/13/2025 11:04 PM EST 08/13/2025 11:40 PM EST Narrative [facility] - 08/14/2025 12:33 AM EST Testing was performed using the [employer] Respiratory Pathogen PCR Assay. All results must [...] MICROBIOLOGY - GENERA L ORDERABLES Final Result [facility] [address] [place] [address], [place] [phone] * SST tube (08/13/2025 10:47 PM EST) Extra Tube Hold for add-ons. 08/14/2025 1:01 AM EST [facility] Comment:Auto resulted. Blood Venous blood specimen / Unknown Venipuncture / Unknown 08/13/2025 10:47 PM EST 08/13/2025 11:06 PM EST Jeremiah Ball MD LAB BLOOD ORDERABLES Final Result Performing Organization Address [facility]/ZIP Co de Phone Number [facility] [address] [place] [address], [place] [phone] * Prothrombin time with INR (08/13/2025 10:47 PM EST) Protime 10.8 10.6 - 13.9 sec LAB COAGULATION METHOD 08/13/2025 11:12 PM EST [facility] INR 0.9 LAB COAGULATION METHOD 08/13/2025 11:12 PM EST [facility] Blood Venous blood specimen / Unknown Venipuncture / Unknown 08/13/2025 10:47 PM EST 08/13/2025 11:01 PM EST us Jeremiah Ball MD LAB BLOOD ORDERABLES Final Result Performing Organization Address [facility]/ZIP Co de Phone Number [facility] [address] [place] [address], [place] [phone] * Lactate (08/13/2025 10:47 PM EST) [facility] Lactate 1.4 0.4 - 2.0 mmol/L 08/13/2025 11:26 PM EST [facility] Blood Venous blood specimen / Unknown Venipuncture / Unknown 08/13/2025 10:47 PM EST 08/13/2025 11:01 PM EST us Jeremiah Ball MD LAB BLOOD ORDERABLES Final Result Performing Organization Address [facility]/ZIP Co de Phone Number [facility] [address] [place] [address], [place] [phone] * CT Abdomen Pelvis wo Contrast (08/13/2025 [...] Signed Date: 08/13/2025 17:09 ET Workstation ID: [id number] Transcribed By: Self Edit Transcribed Date: 08/13/2025 [...] Signed Date: 08/13/2025 17:09 ET Workstation ID: [id number] Transcribed By: Self Edit Transcribed Date: 08/13/2025 17:03 ET us Rose Marie León MD IMG CT PROCEDURES Final Res ult * Thyroid stimulating hormone with reflex to free t4 and free t3 (08/13/2025 1:22 PM EST) TSH 0.56 0.40 - 4.00 mcIU/mL 08/13/2025 9:09 PM EST [facility] Blood Venous blood specimen / Unknown Venipuncture / Unknown 08/13/2025 1:22 PM EST 08/13/2025 1:35 PM EST us Jeremiah Ball MD LAB BLOOD ORDERABLES Final Result Performing Organization Address [facility] Co de Phone Number [facility] [address] [place] [address], [place] [phone] * Beta hydroxybutyrate (08/13/2025 1:22 PM EST) Beta-Hydroxybu tyrate 1.9 0.2 - 2.8 mg/dL 08/13/2025 2:38 PM EST [facility] Blood Venous blood specimen / Unknown Venipuncture / Unknown 08/13/2025 1:22 PM EST 08/13/2025 1:35 PM EST us Rose Marie León MD LAB BLOOD ORDERABLES Final Result Performing Organization Address City/State/[facility] Co de Phone Number [facility] [address] [place] [address], * (ABNORMAL) C-reactive protein (08/13/2025 1:22 PM EST) C-Reactive Protein 0.73(H) <=0.50 mg/dL 08/13/2025 10:33 PM EST [facility] Blood Venous blood specimen / Unknown Venipuncture / Unknown 08/13/2025 1:22 PM EST 08/13/2025 1:35 PM EST Jeremiah Ball MD LAB BLOOD ORDERABLES Final Result Performing Organization Address [facility] Co de Phone Number [facility] [address] [place] [address], * (ABNORMAL) Magnesium (08/13/2025 1:22 PM EST) Only the most recent of3 resultswithin the time period is included. Magnesium 1.5(L) 1.9 - 2.6 mg/dL 08/13/2025 2:38 PM EST [facility] Blood Venous blood specimen / Unknown Venipuncture / Unknown 08/13/2025 1:22 PM EST 08/13/2025 1:35 PM EST Rose Marie León MD LAB BLOOD ORDERABLES Final Result Performing Organization Address [facility] Co de Phone Number [facility] [address] [place] [address], * Lipase (08/13/2025 1:22 PM EST) Only the most recent of3 resultswithin the time period is included. Lipase 35 12 - 53 unit/L 08/13/2025 2:38 PM EST [facility] Blood Venous blood specimen / Unknown Venipuncture / Unknown 08/13/2025 1:22 PM EST 08/13/2025 1:35 PM EST Rose Marie León MD LAB BLOOD ORDERABLES Final Result Performing Organization Address [facility]/ZIP Co de Phone Number [facility] [address] [place] [address], [place] [phone] * (ABNORMAL) Hemoglobin A1c (08/13/2025 1:22 PM EST) Hemoglobin A1C 9.6(H) <6.5 % LAB CHEMISTRY METHOD 08/14/2025 11:12 AM EST [facility] Mean Bld Glu Estim. 229 mg/dL LAB CHEMISTRY METHOD 08/14/2025 11:12 AM EST [facility] Blood Venous blood specimen / Unknown Venipuncture / Unknown 08/13/2025 1:22 PM EST 08/13/2025 1:36 PM EST Jeremiah Ball MD LAB BLOOD ORDERABLES Final Result Performing Organization Address [facility] Co de Phone Number [facility] [address] [place] [address], [place] [phone] * (ABNORMAL) Comprehensive Metabolic Panel (CMP) (08/13/2025 1:22 PM EST) Only the most recent of4 resultswithin the time period is included. [facility] Sodium 138 133 - 145 mmol/L 08/13/2025 3:22 PM EST [facility] Potassium 4.0 3.5 - 5.5 mmol/L 08/13/2025 3:22 PM EST [facility] Comment:Hemolysis present Chloride 102 96 - 110 mmol/L 08/13/2025 3:22 PM EST [facility] CO2 22 21 - 32 mmol/L 08/13/2025 3:22 PM [facility] Anion Gap 14(H) 3 - 11 08/13/2025 3:22 PM [facility] Glucose 294(H) 70 - 100 mg/dL 08/13/2025 3:22 PM [facility] BUN 21 5 - 25 mg/dL 08/13/2025 3:22 PM [facility] Creatinine 0.97 0.50 - 1.10 mg/dL 08/13/2025 3:22 PM [facility] eGFR 70 >=60 mL/min/1. 73m2 08/13/2025 3:22 PM [facility] Comment:Calculation based on the Chronic Kidney Disease Epidemiology Collaboration (CKD-EPI) equation refit without adjustment for race. BUN/Creatinine Ratio 21.6 08/13/2025 3:22 PM [facility] Calcium 8.2(L) 8.5 - 10.5 mg/dL 08/13/2025 3:22 PM [facility] AST (SGOT) 28 10 - 42 unit/L 08/13/2025 3:22 PM [facility] ALT (SGPT) 44 10 - 60 unit/L 08/13/2025 3:22 PM [facility] Alkaline Phosphatase 93 42 - 121 unit/L 08/13/2025 3:22 PM [facility] Total Protein 6.8 6.0 - 8.0 g/dL 08/13/2025 3:22 PM [facility] Albumin 4.1 3.2 - 5.0 g/dL 08/13/2025 3:22 PM [facility] Total Bilirubin 0.2 0.0 - 1.4 mg/dL 08/13/2025 3:22 PM [facility] Blood Venous blood specimen / Unknown Venipuncture / Unknown 08/13/2025 1:22 PM EST 08/13/2025 1:35 PM EST us Rose Marie León MD LAB BLOOD ORDERABLES Final Result Performing Organization Address [facility]/ZIP Co de Phone Number [facility] [address] [place] [address], [place] [phone] * 12-Lead ECG (08/13/2025 12:49 PM EST) Only the most recent of4 resultswithin the time period is included. [facility] Ventricular Rate ECG 88 BPM GEMUSE Atrial Rate 88 BPM GEMUSE P-R Interval 172 ms GEMUSE QRS Duration 98 ms GEMUSE Q-T Interval 404 ms GEMUSE QTc 488 ms GEMUSE P Wave [place] 16 degrees GEMUSE R [place] -5 degrees GEMUSE T [place] 65 degrees GEMUSE ECG Interpretation Normal sinus [...] Resul t Performing Organization Address [facility] Co [place] Phone Number GEMUSE * (ABNORMAL) Urinalysis with reflex microscopic (08/13/2025 12:49 PM EST) Only the most recent of2 resultswithin the time period is included. [facility] Specific Arley Urine 1.013 1.003 - 1.030 LAB URINALYSIS - AUTOMATED METHOD 08/13/2025 1:42 PM EST [facility] pH, Urine 7.0 5.0 - 8.0 pH LAB URINALYSIS - AUTOMATED METHOD 08/13/2025 1:42 PM EST [facility] Leukocytes, Urine Negative Negative LAB URINALYSIS - AUTOMATED METHOD 08/13/2025 1:42 PM [facility] Nitrite, Urine Negative Negative LAB URINALYSIS - AUTOMATED METHOD 08/13/2025 1:42 PM [facility] Protein, Urine Negative <=Trace mg/dL LAB URINALYSIS - AUTOMATED METHOD 08/13/2025 1:42 PM [facility] Glucose, Urine >=1000(A) Negative mg/dL LAB URINALYSIS - AUTOMATED METHOD 08/13/2025 1:42 PM [facility] Ketones, Urine Negative Negative mg/dL LAB URINALYSIS - AUTOMATED METHOD 08/13/2025 1:42 PM [facility] Urobilinogen , Urine 0.2 0.2 - 1.0 mg/dL LAB URINALYSIS - AUTOMATED METHOD 08/13/2025 1:42 PM [facility] Bilirubin, Urine Negative Negative LAB URINALYSIS - AUTOMATED METHOD 08/13/2025 1:42 PM [facility] Blood, Urine Negative Negative LAB URINALYSIS - AUTOMATED METHOD 08/13/2025 1:42 PM [facility] Urine Urine specimen obtained by clean catch procedure / Unknown Non-blood Collection / Unknown 08/13/2025 12:49 PM EST 08/13/2025 1:33 PM EST Rose Marie León MD LAB URINE ORDERABLES Final Result [facility] [address] [place] [address], * , Urine (08/13/2025 12:49 PM EST) Preg Test, Ur Negative Negative 08/13/2025 2:08 PM [facility] Urine Urine specimen obtained by clean catch procedure / Unknown Non-blood Collection / Unknown 08/13/2025 12:49 PM EST 08/13/2025 1:33 PM EST us Rose Marie León MD LAB URINE ORDERABLES Final Result [facility] [address] [place] [address], [place] [phone] * Vascular US Duplex Lower Extremity Venous [...] Signed Date: 08/13/2025 12:34 ET Workstation ID: [id number] Transcribed By: Self Edit Transcribed Date: 08/13/2025 [...] Signed Date: 08/13/2025 12:34 ET Workstation ID: [id number] Transcribed By: Self Edit Transcribed Date: 08/13/2025 12:34 ET Rose Marie León MD CV VASCULAR PROCEDURES Yael l Result * Culture urine (06/23/2025 2:19 AM EDT) Pathologist [facility] Culture, Urine No growth 06/24/2025 8:57 AM EDT [facility] Urine Urine specimen obtained by clean catch procedure / Unknown Non-blood Collection / Unknown 06/23/2025 2:19 AM EDT 06/23/2025 2:39 AM EDT Rose Marie León MD LAB MICROBIOLOGY - GENERAL ORDERABLES Final Result Performing Organization Address [facility] de Phone Number [facility] [address] [place] [address], * Troponin I high sensitivity (06/15/2025 10:34 AM EDT) [facility] High Sensitivity Troponin I 16 <=54 ng/L LAB CHEMISTRY METHOD 06/15/2025 11:42 AM EDT [facility] Blood Venous blood specimen / Unknown Venipuncture / Unknown 06/15/2025 10:34 AM EDT 06/15/2025 11:08 AM EDT Narrative [facility] - 06/15/2025 11:42 AM EDT High levels of biotin in samples may falsely decrease hsTroponin values. Use caution when interpreting hsTroponin results in patients taking biotin who exhibit renal impairment (eGFR <60) or in patients taking more than 20 mg/day of biotin. Carmelo Coronado MD LAB BLOOD ORDERABLES Yael l Result Performing Organization Address [facility] Co de Phone Number [facility] [address] [place] [address], [place] [phone] * Lipid panel (11/16/2016) Triglycerides 0 mg/dL Comment:abstracted, no inter pretation Cholesterol 0 mg/dL Comment:abstracted, no inter pretation HDL 0 mg/dL Comment:abstracted, no inter pretation LDL Cholesterol 0 mg/dL Comment:abstracted, no inter pretation Blood Venous blood specimen / Unknown Historical Provider MD LAB BLOOD ORDERABLES Yael l Result * Urine Albumin Creatinine Ratio (09/19/2016) Urine Albumin Creatinine Ratio abstracted [facility] Provider HEALTH MAINTENANCE Final Result * Pap Smear (03/27/2015) Pathologist [facility] Pap smear abstracted , [facility] Historical Provider HEALTH MAINTENANCE Final Result from Last 3 Months or Most Recently Relevant to Health Maintenance Insurance [place]ICA[place] Advance Directives Documents on File Type Date Recorded 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 Care Teams Entertainment & Media Correspondent Relationship Specialty Start Date End Date Tyesha Rogers MD [address] [place] [phone] PCP - General 12/02/21
--- OUTSIDE RECORDS SUMMARY | 2025-09-08 18:14 | XMS_ITS | Encounter Summary ---
Author Organization [employer] Address [address] [facility] 7 [place] [address] Care Team Providers Care Production Engineer Name Role Phone Tyesha Rogers MD Primary Care Provider [phone] Hi Cortez PharmD Unavailable [phone] Reason for Visit * Reason Comments Med Refill Encounter Details Date Type Department Care Team (Late st Contact Info) Description 11/23/2024 Refill [facility] [address] [place], [place] [phone] Tyesha Rogers MD [address] [place], [place] [phone] Other chronic pain Social History Tobacco Use [...] 09/19/2025 10:30 AM EST Clinical Support [facility] [address] [place] [address] Alva Frias, LUCUIS [address] [place] [address] 09/30/2025 10:45 AM EST Office Visit [facility] [address] [place] [address] Tyesha Rogers MD [address] [place] [address] 10/23/2025 1:00 PM EST Office Visit [facility] [address] [place] [address] Katharine Carbone, OD [address] [place] [address] documented as of this encounter Visit Diagnoses Diagnosis Other chronic pain documented in this encounter Additional Health Concerns Assessment Noted Time PHQ-9 Depression Total Score: 15 025 11:52 AM EST documented as of this encounter Care Teams Production Engineer Relationship Specialty Start Date End Date Tyesha Rogers MD [address] [place] [address] [place] [address] PCP - General Family Medicine 04/25/19 Hi Cortez, PharmD [address] [place] [address] Pharmacist Pharmacy 08/04/25 documented as of this encounter
--- OUTSIDE RECORDS SUMMARY | 2025-09-08 18:14 | XMS_ITS | Encounter Summary ---
Author Organization [employer] Address [address] [place] [address] 7t [place] [address] Care Team Providers Care Roof Cement And Paint Maker Name Role Phone Tyesha Rogers MD Primary Care Provider [phone] Hi Cortez PharmD Unavailable [phone] Reason for Visit * Reason Comments Med Refill Encounter Details Date Type Department Care Team (Late st Contact Info) Description 07/24/2025 Refill [facility] [address] [place], [place] [phone] Tyesha Rogers MD [address] [place], [place] [phone] Social History Tobacco Use Types Packs/Day Years [...] AM EST Clinical Support [facility] [address] [place] [address] Alva Frias RN [address] [place] [address] 09/30/2025 10:45 AM EST Office Visit [facility] [address] [place] [address] Tyesha Rogers MD [address] [place] [address] 10/23/2025 1:00 PM EST Office Visit [facility] [address] [place] [address] Katharine Carbone OD [address] [place] [address] documented as of this encounter Goals Goal [...] documented as of this encounter Care Teams Roof Cement And Paint Maker Relationship Specialty Start Date End Date Tyesha Rogers MD [address] [place] [address] PCP - General Family Medicine 04/25/19 Hi Cortez, ManasD [address] [place] [address] Pharmacist Pharmacy 08/04/25 documented as of this encounter
--- OUTSIDE RECORDS SUMMARY | 2025-09-08 18:14 | XMS_ITS ---
Author Organization [employer] Address [address] [place] [address] 7 [place] [address] Care Team Providers Care Chestnut Tanner Name Role Phone Tyesha Rogers MD Primary Care Provider [phone] Hi Cortez PharmD Unavailable [phone] CM Complex Status:Enrolled (Active) Start date:12/11/2024 Enrollment date:12/31/2024 Enrollment reason:ADT Feed Overview ED- Pt went to [facility] on 12/10/24. Case Team Name Relationship Phone Angel Sanchez RN(Responsible Staff) Jac gomez [phone] Continued Care and Services Coordination
--- OUTSIDE RECORDS SUMMARY | 2025-09-08 18:14 | XMS_ITS | Encounter Summary ---
Author Organization [employer] Address [address] [place] [address] 7t [place] [address] Care Team Providers Care Decorating Consultant Name Role Phone Tyesha Rogers MD Primary Care Provider [phone] Hi Cortez PharmD Unavailable [phone] Encounter Details Date Type Department Care Team ([facility] Contact Info) Description 10/29/2024 Orders Only [facility] [address] [place], [place] [phone] Provider, MD Jhony Social History Tobacco Use [...] Description 09/19/2025 10:30 AM EST Clinical Support [facility] [address] [place] [address] Alva Frias RN [address] [place] [address] 09/30/2025 10:45 AM EST Office Visit [facility] [address] [place] [address] Tyesha Rogers MD [address] [place] [address] 10/23/2025 1:00 PM EST Office Visit [facility] [address] [place] [address] Katharine Carbone, OD [address] [place] [address] documented as of this encounter Procedures Procedure [...] documented as of this encounter Care Teams Decorating Consultant Relationship Specialty Start Date End Date Tyesha Rogers MD [address] [place] [address] PCP - General Family Medicine 04/25/19 Hi Cortez, ManasD [address] [place] [address] Pharmacist Pharmacy 08/04/25 documented as of this encounter
--- OUTSIDE RECORDS SUMMARY | 2025-09-08 18:15 | XMS_ITS | Encounter Summary ---
Author Organization [employer] Address [address] [facility] 7t [place] [address] Care Team Providers Care Pony Ride Attendant Name Role Phone Tyesha Rogers MD Primary Care Provider [phone] Hi Cortez PharmD Unavailable Encounter Details Date Type Department Care Team (Late st Contact Info) Description 05/06/2024 Orders Only [facility] [address] [place], [place] [phone] Tyesha Rogers MD [address] [place], [place] [phone] Social History Tobacco Use Types Packs/Day Years [...] 10:30 AM EST Clinical Support [facility] [address] [place] [address] Alva Frias RN [address] [place] [address] 09/30/2025 10:45 AM EST Office Visit [facility] [address] [place] [address] Tyesha Rogers MD [address] [place] [address] 10/23/2025 1:00 PM EST Office Visit [facility] [address] [place] [address] Katharine Carbone, OD [address] [place] [address] documented as of this encounter Visit Diagnoses Not on filedocumented in this encounter Additional Health Concerns Assessment Noted Time PHQ-9 Depression Total Score: 21 024 10:41 AM EDT documented as of this encounter Care Teams Pony Ride Attendant Relationship Specialty Start Date End Date Tyesha Rogers MD [address] [place] [address] PCP - General Family Medicine 04/25/19 Hi Cortez, PharmD [address] [place] [address] [place] [address] Pharmacist Pharmacy 08/04/25 documented as of this encounter
--- OUTSIDE RECORDS SUMMARY | 2025-09-08 18:15 | XMS_ITS | Encounter Summary ---
Author Organization [employer] Address [address] [facility] 7 [place] [address] Care Team Providers Care Junior Programmer Analyst Name Role Phone Tyesha Rogers MD Primary Care Provider [phone] Hi Cortez PharmD Unavailable [phone] Reason for Visit * Reason Onset Date Comments Appointment Request 07/29/2025 Encounter Details Date Type Department Care Team ([facility] st Contact Info) Description 07/29/2025 Telephone [facility] [address] [place], [place] [phone] Tyesha Rogers MD [address] [place], [place] [phone] Appointment Request Social History Tobacco Use Types [...] requesting to schedule follow up apt . 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 Contact pt at [phone] documented in this encounter Plan of Treatment Upcoming Encounters Date Type Department Care Team (Late st Contact Info) Description 09/19/2025 10:30 AM EST Clinical Support [facility] [address] [place] [address] Alva Frias RN [address] [place] [address] 09/30/2025 10:45 AM EST Office Visit [facility] [address] [place] [address] Tyesha Rogers MD [address] [place] [address] 10/23/2025 1:00 PM EST Office Visit [facility] [address] [place] [address] Katharine Carbone, OD [address] [place] [address] documented as of this encounter Goals Goal [...] Care Plan Weekly blood pressure task No [place] [place] corona PILOT SUBMERSIBLE Weekly blood pressure task Care Plan Weekly blood pressure task No [facility]cy [facility] Patient has chronic kidney disease Care Plan Patient has chronic kidney disease No [place] Vale[place]cy [facility] Patient has chronic kidney disease Care Plan Patient has chronic kidney disease No [place] Vale[place]cy, PILOT SUBMERSIBLE Weekly blood pressure task Care Plan Weekly [...] as of this encounter Care Teams Junior Programmer Analyst Relationship Specialty Start Date End Date Tyesha Rogers MD [address] [place] [address] PCP - General Family Medicine 04/25/19 Hi Cortez, PharmD [address] [place] [address] Pharmacist Pharmacy 08/04/25 documented as of this encounter
--- OUTSIDE RECORDS SUMMARY | 2025-09-08 18:15 | XMS_ITS | Encounter Summary ---
Author Organization [employer] Address [address] [facility] [address] 7[address] [place] [address] Care Team Providers Care Rolled Gold Plater Name Role Phone Tyesha Rogers MD Primary Care Provider [phone] Hi Cortez PharmD Unavailable [phone] Encounter Details Date Type Department Care Team (Late st Contact Info) Description 06/05/2024 Orders Only [facility] [address] [place], [place] [phone] Henry Choi MD [address] [place], [place] [phone] Social History Tobacco Use Types Packs/Day Years [...] EST Clinical Support [facility] [address] [place] [address] Alva Frias RN 505 [place] [address] 09/30/2025 10:45 AM EST Office Visit [facility] [address] [place] [address] Tyesha Rogers MD [address] [place] [address] 10/23/2025 1:00 PM EST Office Visit [facility] [address] [place] [address] Katharine Carbone, OD [address] [place] [address] documented as of this encounter Visit Diagnoses Not on filedocumented in this encounter Additional Health Concerns Assessment Noted Time PHQ-9 Depression Total Score: 24 024 10:42 AM EDT documented as of this encounter Care Teams Rolled Gold Plater Relationship Specialty Start Date End Date Tyesha Rogers MD [address] [place] [address] PCP - General Family Medicine 04/25/19 Hi Cortez, PharmD [address] [place] [address] [place] [address] Pharmacist Pharmacy 08/04/25 documented as of this encounter
--- OUTSIDE RECORDS SUMMARY | 2025-09-08 18:15 | XMS_ITS | Clinical Summary ---
Author Organization [employer] Address [address] [place] [address] Care Team Providers Care General Manager In Training Name Role Phone Tyesha Houston MD Primary Care Provider Hi Cortez PharmD Unavailable [phone] Allergies Active Allergy Reactions Criticality Noted Date [...] Unable to Define Lisinopril-Hydrochlorothia zide Cough 12/06/2016 Horicon High 12/04/2018 Other reaction(s): stiffened up & [...] represent a complete record from that organization. nitroglycerin (Nitrostat) 0.[address] 1 tablet under the tongue if needed each day. PRN Active glucose (Glutose) 40 % gel oral gelIndications:T ype 2 diabetes mellitus with hyperglycemia, with long-term current use of insulin ([facility]) Administer 15 g orally as needed for blood glucose < 60 mg/dl. Use glucagon if pt cannot swallow or is unresponsive. Call emergency if pt is lethargic or unresponsive. 45 g 3 2022 Active Additional Information Patient not taking.Reported on 12/31/2024 Blood Glucose Monitoring Suppl (HEMINGWAYStyle Royal Lite) w/Device kit Use to test blood sugar bid dx dm 1 kit 2024 Active Blood Pressure kit Check BP every day. Goal BP < 140/90 1 kit 2024 Active ammonium lactate (Lac-Hydrin) 12 % lotion Apply 1 Application topically 2 times daily. 2024 Active insulin lispro (HumaLOG) 100 UNIT/ML injectionIndicat ions:Type 2 diabetes mellitus with hyperglycemia, with long-term current use of insulin ([facility]) << Sliding Scale Comments >>100 - 149 8 units Call if less than 25135 - 199 10 units 200 - 249 [...] hyperglycemia, with long-term current use of insulin ([facility]) USE TO TEST BLOOD SUGAR [...] 1 Application. topically 2 times daily. Active acetaminophen (Tylenol) 325 MG tabletIndication s:Chronic [...] 2 times daily. 60 tablet 1 08/27/20 25 9:36 AM EST 2024 Active doxepin (SINEquan) [...] hyperglycemia, with long-term current use of insulin ([facility]) 1 each every 15 days. Apply 1 every 15 days as directed for CGM 2 each 08/01/20 2:12 PM EST 2024 Active glucose blood (FreeStyle Precision Brent Test) test stripIndications :Type 2 diabetes mellitus with hyperglycemia, with long-term current use of insulin ([facility]) Use to test blood sugar 3 times daily in case of CGM failure or extremes of BG 100 each 07/21 Active Continuous Glucose Auto Research Engineer (FreeStyle Eloy 3 [place] [employer]) deviceIndication s:Type 2 diabetes mellitus with hyperglycemia, with long-term current use of insulin ([facility]) 1 each Once per day. Use as directed for CGM 1 each 08/01/20 2:12 PM EST 2024 Active lactulose 20 gram/30 mL oral solutionIndicati ons:Constipation , unspecified constipation type 30mL as needed up to once daily for constipation 450 mL 2024 Active omeprazole (PriLOSEC) [address] [...] AM EST 2024 Active Comfort EZ [place] 32G X 5 MM misc USE FOR [...] units daily 15 mL 1 2024 Active ondansetron ODT (Zofran-ODT) 4 MG disintegrating tablet Take 1 tablet (4 mg) by mouth every 8 (eight) hours if needed for nausea or vomiting. 30 tablet 1 09/08/20 3:05 PM EST 2024 Active clonazePAM (KlonoPIN) 0.5 MG tablet Take 1 tablet (0.5 mg) by mouth if needed each day for anxiety. 28 tablet 1 2024 Active bisacodyl (Bisacodyl EC) 5 MG EC tablet TAKE 1 TABLET BY MOUTH ONCE DAILY NEEDED FOR CONSTIPATION OR IF no bowel movement FOR 3 DAYS. DO NOT CRUSH, chew, OR split 30 tablet 3 2024 Active senna-docusate sodium (Senokot-S) 8.6-50 MG tablet Take 1 tablet by mouth Once per day. 90 tablet 3 09/08/20 25 3:05 PM EST 2024 Active naloxone (Narcan) 4 mg/0.1 mL nasal spray Administer 0.1 mL into affected nostril(s) if needed. 09/08 Discontinued( Med list cleanup (will not trigger notification to Pharmacy)) insulin pen needle 32G x 5 mm misc Inject under the skin 4 times daily. Use as instructed 120 each 08/19 Discontinued amLODIPine (Norvasc) 10 MG tablet Take 1 tablet (10 mg) by mouth Once per day. 90 tablet 3 08/26 Discontinued( Stop taking at discharge) guanFACINE (Intuniv) 2 mg 24 hr tablet Take 2 mg by mouth Once per day. 08/25 Discontinued( Reorder (will not trigger notification to Pharmacy)) pregabalin (Lyrica) 25 MG capsule Take 25 mg by mouth in the morning and 25 mg at noon and 25 mg in the evening. 08/25 Discontinued( Reorder (will not trigger notification to Pharmacy)) ondansetron ODT (Zofran-ODT) 4 MG disintegrating tablet Take 4 mg by mouth every 8 (eight) hours if needed for nausea or vomiting. 09/08 Discontinued( Reorder (will not trigger notification to Pharmacy)) traMADol [...] Reorder (will not trigger notification to Pharmacy)) Bisacodyl EC 5 MG EC tablet TAKE 1 TABLET BY MOUTH ONCE DAILY NEEDED FOR CONSTIPATION OR IF no bowel movement FOR 3 DAYS. DO NOT CRUSH, chew, OR split 30 tablet 3 08/01/20 2:12 PM EST 09/08 Discontinued( Reorder (will not trigger notification to Pharmacy)) insulin degludec (Tresiba FlexTouch) 100 UNIT/ML injectionIndicat ions:Type 2 diabetes mellitus with hyperglycemia, with long-term current use of insulin (HCC) Administer subcutaneously 30 units daily 15 mL 1 08/01/20 2:12 PM EST 08/27 Discontinued( Reorder (will not trigger notification to Pharmacy)) metoprolol succinate XL (Toprol XL) 25 MG 24 hr tablet Take 1 tablet (25 mg) by mouth Once per day. Do not crush or chew. 30 tablet 11 08/27/20 11:47 AM EST 09/08 Discontinued( Med list cleanup (will not trigger notification to Pharmacy)) Active [...] she is diagnosed with MDD. Occasionally with [employer] due to borderline tendency and conversion disorder Hx suicide attempt several times (one time overdosed insulin) Previous [facility] provider: [place], Dr. Alex is psychiatrist, previously Albina Duff was her therapist. Current behavioral health service provider: Encouraged to reach out to her [facility] therapist and psychiatrist for her concerns and [...] Aminata Bolton. I will submit referral to [facility] for Psychiatrist services. Provided education [...] as treatmetn engagement. PLAN: Follow up with [facility]: Not recommended for follow-up Patient goal is to become mentally stable and work on her sobriety Behavioral Recommendations Remind engage in MH services with [facility] Referral to [facility] for Psychiatrist services [facility] contact information for support. Assessment & Plan (07/14/2025 3:47 PM EST): >>ASSESSMENT AND PLAN FOR SEVERE EPISODE OF RECURRENT MAJOR DEPRESSIVE DISORDER, WITHOUT PSYCHOTIC FEATURES (CMS/HCC) ([facility]) WRITTEN ON 07/11/2023 8:28 AM BY GUSTAVO SALAS Emily has a h/o mood disorder, SI, cocaine use, OUD, depression, anxiety and PTSD. Eun reports anhedonia, feeling depressed, sleep disturbances, feeling tired, poor appetite, and overeating, guilt, trouble concentrating, feeling anxious, inability to control worry, worrisome, trouble relaxing, and restlessness. Emily agrees to go up to [facility], and attempt to reschedule with therapist. Emily is open to a referral to [facility] for psychiatric medication. She also requests to return to [facility]. LUCIUS Hatch has scheduled that appointment. Emily agrees to follow up with me at ext. [phone], if she is unable to connect with therapist. 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 Last seen in December 2022 - CAD, remote non-STEMI on 10/29, reported moderate CAD - History of DVT and likely PE at [facility], on apixaban and 12 contrast allergy with anaphylaxis. Assessment & Plan (02/12/2025 9:02 AM EDT): - fresh work inspector: [facility]. Last seen in December 2022 - CAD, remote non-STEMI on 10/29, reported moderate CAD - History of DVT and likely PEA at [facility], on apixaban and 12 contrast allergy with anaphylaxis. 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 Last seen in December 2022 - CAD, remote non-STEMI on 10/29, reported moderate CAD - History of DVT and likely PEA at [facility], on apixaban and 12 contrast allergy with anaphylaxis. 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 Last seen in December 2022 - CAD, remote non-STEMI on 10/29, reported moderate CAD - History of DVT and likely PEA at [facility], on apixaban and 12 contrast allergy with anaphylaxis. Assessment & Plan (12/22/2022 5:36 AM EDT): -Hearing Therapy Teacher: [facility] [place], last seen in Sep 2021 -Hx mild CAD, last cardiac cath on 03/06/20 -continue ARB and statin -continue working on lifestyle modification -not on ASA since she started taking Eliquis for PE -previously on propranolol for ARCEO, but no longer taking it due to Hx hypotension -follow-up with fresh work inspector as scheduled Assessment & Plan (09/04/2022 12:05 PM EST): -Hearing Therapy Teacher: [facility] Dr. Forrester, last seen in Sep 2021 -Hx mild CAD, last cardiac cath on 03/06/20 -continue ARB and statin -continue working on lifestyle modification -not on ASA since she started taking Eliquis for PE -previously on propranolol for ARCEO, but no longer taking it due to Hx hypotension -follow-up with fresh work inspector as scheduled Tobacco use 08/30/2022 Assessment & [...] & Plan (01/14/2025 11:13 AM EDT): Urologist: [facility], Dr. Duran, last seen in Aug 2021 S/p right ESWL on 01/29/20 S/p left cystoscopy, retrograde laser and stent on 02/28/20 S/p removal on 04/07/21 S/p cystoscopy and ureteroscopy on 08/23/21 Drink water > 2L / day Assessment & Plan (12/22/2022 5:58 AM EDT): [facility], last seen in Aug 2021 S/p [...] (08/19/2022 10:40 AM EST): Urologist: Dr. Roger Boyd, last seen [...] she is diagnosed with MDD. Occasionally with [employer] due to borderline tendency and conversion disorder Hx suicide attempt several times (one time overdosed insulin) [facility] provider: Dr. Abi Thomason is psychiatrist, previously Albina Duff was her therapist. Encouraged to reach out to her [facility] therapist and psychiatrist for her concerns and medication management She was able to contract her safety today Assessment & Plan (01/14/2025 11:14 AM EDT): Current Dx: Bipolar disorder, sometimes she is diagnosed with MDD. Occasionally with [employer] due to borderline tendency and conversion disorder Hx suicide attempt several times (one time overdosed insulin) [facility] provider: Dr. Abi MCDONNELL is psychiatrist, previously Albina Duff was her therapist. Encouraged to reach out to her [facility] therapist and psychiatrist for her concerns and medication management She was able to contract her safety today Assessment & Plan (08/25/2023 7:11 PM EST): Current Dx: Bipolar disorder, sometimes she is diagnosed with MDD. Occasionally with [employer] due to borderline tendency and conversion disorder Hx suicide attempt several times (one time overdosed insulin) [facility] provider: Dr. Abi MCDONNELL is psychiatrist, previously Albina Duff was her therapist. Encouraged to reach out to her [facility] therapist and psychiatrist for her concerns and medication management She was able to contract her safety today Assessment & Plan (09/04/2022 12:10 PM EST): Current Dx: Bipolar disorder, sometimes she is diagnosed with MDD. Occasionally with [employer] due to borderline tendency and conversion disorder [facility] provider: Dr. Abi Thomason is psychiatrist, Albina Duff has been her therapist. Encouraged to reach out to her [facility] therapist and psychiatrist for her concerns and medication management She was able to contract her safety today Assessment & Plan (08/19/2022 11:13 AM EST): Current Dx: Bipolar disorder, sometimes she is diagnosed with MDD. Occasionally with [employer] due to borderline tendency and conversion disorder [facility] provider: Dr. Abi MCDONNELL is psychiatrist, Albina Duff has been her therapist. Encouraged to reach out to her [facility] therapist and psychiatrist for her concerns and medication management She was able to contract her safety today Cervical dysplasia 08/02/2022 Cocaine use disorder ([facility]) 08/02/2022 H/O: attempted suicide 08/02/2022 Substance use disorder 08/02/2022 Opioid use disorder 08/02/2022 Coronary artery disease 09/26/2018 Type 2 diabetes mellitus with hyperglycemia 09/11 Overview (01/13/2025): >>OVERVIEW FOR TYPE 2 DIABETES MELLITUS, WITH LONG-TERM CURRENT USE OF INSULIN ([facility]) WRITTEN ON 03/15/2023 10:18 AM [...] missed last eye appointment in February with [facility]. Recommended to reschedule Foot exam: 01/14/25 Neuropathy; callus; previously written a script for diabetic footwear. She did not go to roll picker the shoes. Referred to carpentry instructor Assessment & Plan (02/12/2025 9:03 AM EDT): [...] Up coming eye appointment in February with [facility] Foot exam: 01/14/25 Neuropathy; callus; previously written a script for diabetic footwear. She did not go to roll picker the shoes. Referred to carpentry instructor Assessment & Plan (01/19/2025 10:36 PM EDT): [...] Up coming eye appointment in February with [facility] Foot exam: 01/14/25 Neuropathy; callus; previously written a script for diabetic footwear. She did not go to roll picker the shoes. Referred to carpentry instructor Assessment & Plan (01/13/2025 9:51 PM EDT): >>ASSESSMENT AND PLAN FOR TYPE 2 DIABETES MELLITUS, WITH LONG-TERM CURRENT USE OF INSULIN (CMS/HCC) WRITTEN ON 08/25/2023 7:08 PM BY TYESHA [...] Diabetic eye exam: Referred to [facility] in the past; will check its status Foot exam: 08/08/23 Neuropathy; callus; previously written a script for diabetic footwear. She did not go to roll picker the shoes. Will refer to carpentry instructor Assessment & Plan (01/13/2025 9:51 PM EDT): [...] Diabetic eye exam: Referred to [facility] care in the past; will check its status Foot exam: 08/08/23 Neuropathy; callus; previously written a script for diabetic footwear. She did not go to roll picker the shoes. Will refer to carpentry instructor >>ASSESSMENT AND PLAN FOR TYPE 2 DIABETES MELLITUS, WITH LONG-TERM CURRENT USE OF INSULIN ([facility]) WRITTEN ON 09/27/2023 6:06 AM [...] Diabetic eye exam: Referred to [facility] care in the past; will check its status Foot exam: 08/08/23 Neuropathy; callus; previously written a script for diabetic footwear. She did not go to roll picker the shoes. Will refer to carpentry instructor Assessment & Plan (12/22/2022 5:56 AM EDT): [...] Diabetic eye exam: Referred to [facility] care in the past; will [...] Diabetic eye exam: Referred to [facility] care in the past; will [...] Diabetic eye exam: Referred to [facility] care in the past; will check its status Foot exam: 08/18/22 Neuropathy; callus; written a script for diabetic footwear. Assessment & Plan (01/13/2025 9:51 PM EDT): >>ASSESSMENT AND PLAN FOR TYPE 2 DIABETES MELLITUS WITH HYPERGLYCEMIA ([facility]) WRITTEN ON 08/19/2022 10:52 AM [...] Diabetic eye exam: Referred to [facility] care in the past; will check its status Foot exam: 08/18/22 Neuropathy; callus; will write a script for diabetic footwear. 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 Upcoming appointment. Current medication: Octrevus, started in May 2022 Flare-up frequency > 2x / year Last flare-up in Jun 2020, hospitalized in [facility], dexamathasone was not given due to concern for PML Last imaging studies: MRI brain / cervical spine in Jun 2024 at [facility] Followed by urologist for neurogenic bladder, recurrent [...] Last flare-up in Jun 2020, hospitalized in [facility], dexamathasone was not given due to concern for PML Last imaging studies: MRI brain / cervical spine in Jun 2024 at [facility] Followed by urologist for neurogenic bladder, recurrent [...] Last flare-up in Jun 2020, hospitalized in [facility], dexamathasone was not given due to concern for PML Last imaging studies: MRI brain / cervical spine in Jun 2024 at [facility] Followed by urologist for neurogenic bladder, recurrent UTI and recurrent kidney stone Treatment Hx: -Tysabri (Natalizumab) q4wks, 03/2020-05/2022 (Interruption due to concern for PML 06/2020-11/2020) -Gabapentin, pregabalin for pain, but discontinued due to side effect and ineffectiveness Pt was recommended to check with neurology office for MRI appt Assessment & Plan (09/27/2023 6:08 AM EST): Neurologist: [facility]ER, last seen in Jun 2023 Current medication: Octrevus, started in May 2022 Flare-up frequency > 2x / year Last flare-up in Jun 2020, hospitalized in [facility], dexamathasone was not given due to concern for PML Last imaging studies: MRI brain / cervical spine in Apr 2022 at [facility] Followed by urologist for neurogenic [...] Last flare-up in Jun 2020, hospitalized in [facility], dexamathasone was not given due to concern for PML Last imaging studies: MRI brain / cervical spine in Apr 2022 at [facility] Followed by urologist for neurogenic [...] Last flare-up in Jun 2020, hospitalized in [facility], dexamathasone was not given due to concern for PML Last imaging studies: MRI brain / cervical spine in Apr 2022 at [facility] Followed by urologist for neurogenic bladder, recurrent UTI and recurrent kidney stone Treatment Hx: Tysabri (Natalizumab) q4wks, 03/2020-05/2022 (Interruption due to concern for PML 06/2020-11/2020) Copaxone (weight gain), aubagio (wt gain and hair loss), Gabapentin, pregabalin for pain, but discontinued due to side effect and ineffectiveness Assessment & Plan (10/03/2022 5:51 AM EST): Neurologist: [facility], last seen on 05/12/22 Current medication: Octrevus, started in May 2022 Flare-up frequency > 2x / year Last flare-up in Jun 2020, hospitalized in [facility], dexamathasone was not given due to concern for PML Last imaging studies: MRI brain / cervical spine in Apr 2022 at [facility] Followed by urologist for neurogenic bladder, recurrent UTI and recurrent kidney stone Treatment Hx: Tysabri (Natalizumab) q4wks, 03/2020-05/2022 (Interruption due to concern for PML 06/2020-11/2020) Gabapentin, pregabalin for pain, but discontinued due to side effect and ineffectiveness Assessment & Plan (08/19/2022 11:02 AM EST): Neurologist: [facility], last seen on 04/08/22 Current medication: Octrevus, started in May 2022 Flare-up frequency > 2x / year Last flare-up in Jun 2020, hospitalized in [facility], dexamathasone was not given due to concern for PML Last imaging studies: MRI brain / cervical spine in Apr 2022 at [facility] Followed by urologist for neurogenic [...] patient presented to YORDAN Garcia to the [facility] emergency department Acute hyperglycemia 06/26/2024 01/20/20 Assessment & Plan (06/26/2024 12:15 PM EDT): EMS called, patient presented to YORDAN Radha to the [facility] emergency department Daytime somnolence 12/19/2018 2 Encounters * This document contains information received from the source organization and may not represent a complete record from that organization. Date Type Department Care Team Description 09/08/2025 1:45 PM EST Office Visit [address] [address] Tyesha Houston MD Kidney stone (Primary Dx); Type 2 diabetes mellitus with hyperglycemia, with long-term current use of insulin (HCC); Left flank pain; Hypertension, unspecified type; Abnormal uterine bleeding (AUB); Perimenopause; Other constipation; Recurrent kidney stones; Pelvic pain in female 09/08/[address] [address] Tyesha Houston MD Prior Authorization 09/08/2025 Travel 09/08/2025 Telephone [facility] [address] [place] [address] Bren Gasca, [facility] 09/07/2025 Results Follow-Up [facility] [address] [place] [address] [id number] Penelope Deal FNP Confirmatory Syphilis Profile 09/02/[address] [id number] Tyesha Houston MD Referral 09/02/[address] [address] Tyesha Houston MD Results 09/01/2025 Telephone [facility] [place] [address] Tyesha Houston MD Nurse Triage 08/27/2025 9:45 AM EST Office Visit [facility] [place] [address] Aissatou To NP Abnormal thyroid function test (Primary Dx); Type 2 diabetes mellitus with hyperglycemia, with long-term current use of insulin (HCC); Other constipation; Onychomycosis 08/27/2025 Orders Only [facility] [place] [address] Penelope Deal FNP 08/27/2025 Results Follow-Up [address] [place] [address] Samantha Lima ANP TSH W/Reflex to FT4 08/27/[address] [address] Tyesha Houston MD 08/27/2025 Travel 08/26/2025 [address] [place] [address] Tyesha Houston MD Chart Prep 08/25/[address] [address] Tyesha Houston MD Paperwork/Forms 08/25/[address] [address] Tyesha Houston MD Epigastric pain; Posttraumatic stress disorder 08/25/2025 [address]ill [address] [place] [address] Samantha Lima ANP Epigastric pain 08/22/[address] [address] Tyesha Houston MD PT1 08/19/2025 Patient Outreach [address] [address] Tyesha Houston MD 08/19/2025 Patient Outreach [address] [address] Tyesha Houston MD 08/19/2025 Refill [facility] [address] [place] [address] Tyesha Houston MD 08/14/2025 Orders Only [facility] [address] [facility] [place] [address] Jhony Berger MD 08/13/2025 Telephone [facility] [address] [place] [address] Tyesha Houston MD ER Follow-up; Nurse Triage 08/11/2025 Refill [facility] [address] [facility] [place] [address] Alva Frias RN Chronic bilateral low back pain, unspecified whether sciatica present 08/11/2025 Travel 08/11/2025 Telephone [facility] [address] [facility] [place] [address] Tyesha Houston MD Med Refill 08/11/2025 Telephone [facility] [address] [place] [address] Tyesha Houston MD Med Refill 08/05/[address] [address] Tyesha Houston MD Appointment Request 08/05/2025 [facility]phone [facility] [facility] [address] [place] [phone] Neha Mondragon, BOLT SAWYER Follow-up 08/04/2025 1:30 PM EST Clinical Support [facility] [address] [place] [phone] Soumya Bagley RN Hypertension, unspecified type 08/04/2025 Travel 08/04/2025 Telephone [facility] [address] [place] [address] Felicia Cash MA 08/01/2025 Orders Only [facility] External Provider, [facility] 08/01/2025 Travel 07/29/2025 Telephone [facility] [address] [place] [address] Tyesha Houston MD Appointment Request 07/29/[address] [address] Tyesha Houston MD Med Refill 07/29/2025 Refill [facility] [place] [place] [address] Tyesha Houston MD Epigastric pain 07/24/2025 Refill [facility] [place] [place] [address] Tyesha Houston MD 07/23/2025 Results Follow-Up [facility] [place] [address] Samantha Lima ANP Culture, Urine, Routine 07/21/2025 1:00 PM EST Office Visit [facility] [place] [address] Samantha Lima ANP Type 2 diabetes mellitus with hyperglycemia, with long-term current use of insulin (HCC) (Primary Dx); Hypoglycemia; MDD (major depressive disorder), recurrent severe, without psychosis (CMS/HCC) (HCC); Mood disorder (CMS/HCC); Malodorous urine; Constipation, unspecified constipation type; Polypharmacy 07/21/2025 Orders Only [facility] [place] [address] Samantha Lima ANP 07/21/2025 Telephone [facility] [place] [address] Neha Mondragon RNdetective homicide squad 07/21/2025 Travel 07/18/2025 Telephone [facility] [address] Tyesha Houston MD appt request 07/18/2025 Telephone [place] [address] Samantha Lima ANP chart prep 07/17/2025 Patient Outreach [facility] [place] [place] [address] Tyesha Houston MD Care Coordination ([address] Aminata York telephone call outreach) 07/17/2025 Patient Outreach [facility] [place] [place] [address] Tyesha Houston MD 07/17/2025 Telephone [facility] [place] [place] [address] Tyesha Houston MD Nurse Triage 07/15/2025 Refill [facility] [address] [place], [place] [address] [place] [address] Tyesha Houston MD Neuropathy 07/14/2025 1:00 PM EST Office Visit [facility] [place] [address] Samantha Lima ANP Multiple allergies (Primary Dx); Encounter for immunization; Posttraumatic stress disorder; MDD (major depressive disorder), recurrent severe, without psychosis (CMS/HCC) (HCC); Mood disorder (CMS/HCC); Epigastric pain; Abnormal thyroid function test; History of pulmonary embolus (PE); History of DVT (deep vein thrombosis); Constipation, unspecified constipation type 07/14/2025 Telephone [facility] [address] [place] [address] Alva Frias RN 07/14/2025 Refill [facility] [address] [place] [address] Samantha Lima ANP Epigastric pain 07/14/2025 Patient Outreach [facility] [address] [place] [address] Tyesha Houston MD 07/14/2025 Travel 07/14/2025 Patient Outreach [facility] [address] [place] [address] Tyesha Houston MD Care Management (C3CM- F/U call) 07/14/2025 Telephone [facility] [address] [place] [address] Tyesha Houston MD Nurse Triage 07/09/2025 Refill [facility] [address] [place] [address] Lorie Goncalves MD Type 2 diabetes mellitus with hyperglycemia (HCC) 07/07/2025 Telephone [facility] [address] [place] [phone] Tyesha Houston MD fyi 07/03/2025 11:15 AM EDT Office Visit [facility] [address] [place] [address] Tyesha Houston MD Hypertension, unspecified type (Primary [...] disorder; Tobacco use 07/03/2025 Travel 07/02/2025 Telephone [facility] [address] [place] [address] Tyesha Houston MD chart prep 07/02/2025 Orders Only [facility] [address] [place] [address] Tyesha Houston MD Multiple sclerosis (Primary Dx) 06/27/2025 Orders Only [facility] [address] [place] [address] Jhony Berger MD 06/27/[address] [address] Tyesha Houston MD glucose monitor 06/26/[address] [address] Tyesha Houston MD Transitin of care 06/24/2025 Telephone [facility] [address] [place] [address] Katharine Carbone, OD 06/23/2025 Patient Outreach [facility] [address] [place], [place] [phone] Tyesha Houston MD RN telehealth 06/17/2025 Telephone [facility] [address] [place] [address] Soumya Bagley RN ER Follow-up 06/16/[address] [address] Tyesha Houston MD MAJOR ASSEMBLER telehealth 06/10/2025 Telephone [facility] [address] [place] [phone] Tyesha Houston MD telephone call from Last 3 Months Immunizations Immunization Administration [...] oz) 09/08/2025 1:21 P M EST Height 157.5 cm (5' 2 ) 08/27/2025 10:15 AM EST Body Mass Index 34.82 08/27/2025 10:15 AM EST Plan of Treatment Upcoming Encounters Date Type Department Care Team (Late st Contact Info) Description 09/19/2025 10:30 AM EST Clinical Support [facility] [address] [place] [address] Alva Frias, LUCIUS [address] [place] [address] 09/30/2025 10:45 AM EST Office Visit [facility] [address] [place] [address] Tyesha Houston MD [address] [place] [address] 10/23/2025 1:00 PM EST Office Visit [facility] [address] [place] [address] Raf, Katharine, OD [address] [place] [address] Health Maintenance Due Date Last Done Comments [...] 2025 10/28/2022, 03/04/2022, 03/04/2022, Additional history exists Cervical Cancer Screening 08/25/2025 [...] Additional history exists SDOH Screening 01/14/2026 01/14/2025 Depression Monitoring 03/09/2026 09/08/2025, 025 Tobacco Screening 08/27/2026 08/27/2025 DTaP/Tdap/Td Vaccines (4 - Td or Tdap) 06/08/2027 06/08/2017, 11/16/2016, 11/23/2015, Additional history exists Hepatitis B Vaccines Completed 04/24/2019, 12/04/2018, 09/21/2018, Additional history exists Hepatitis C Screening Completed 01/14/2025 , 08/20/2024, 03/04/2022, Additional history exists Pneumococcal Vaccine: 50+ Years Completed 01/14/2025, 05/18/2016, 05/18/2016, Additional history exists Influenza Vaccine Completed 07/14/2025, , 07/23/2021, Additional history exists HIV Screening Completed 08/27/2025, 02/2025, 08/20/2024, Additional history exists HIB Vaccines Aged Out [...] Plan Patient has chronic kidney disease No ClermontMarcy corona FNP Patient has chronic kidney disease [...] Weekly blood pressure task No Salas, Gustavo Patient has chronic kidney disease Care Plan Patient has chronic kidney disease No Salas, Gustavo Patient has chronic kidney disease Care Plan Patient has chronic kidney disease No Salas, Gustavo Weekly blood pressure task Care Plan Weekly blood pressure task No Salas, Gustavo Weekly blood pressure task Care Plan Weekly blood pressure task No Salas, Gustavo Patient has chronic kidney disease Care Plan Patient has chronic kidney disease No Salas, Gustavo Patient has chronic kidney disease Care Plan Patient has chronic kidney disease No Salas, Gustavo Weekly blood pressure task [...] Plan Patient has chronic kidney disease No SalasGustavo baker Patient has chronic kidney disease Care [...] Care Plan Weekly blood pressure task No SalasGustavo Weekly blood pressure task Care Plan Weekly blood pressure task No SalasGustavo Patient has chronic kidney disease Care Plan Patient has chronic kidney disease No SalasGustavo baker Patient has chronic kidney disease Care [...] blood pressure task No [place] Katie Patient has chronic [...] Weekly blood pressure task No OkDavina jordanupe, HOTEL OPERATION MANAGER Weekly blood pressure task Care Plan Weekly blood pressure task No OkhipoDavinaPenelope, HOTEL OPERATION MANAGER Patient has chronic kidney disease Care Plan Patient has chronic kidney disease No Okhipo Penelope, HOTEL OPERATION MANAGER Patient has chronic kidney disease Care [...] has chronic kidney disease No Kalyan Gilliland Procedures Procedure Name Priority Date/Time Associated Diagnosis Comments POCT URINALYSIS DIPSTICK Routine 09/08/2025 2:22 PM EST Type 2 diabetes mellitus with hyperglycemia, with long-term current use of insulin (HCC) POCT GLUCOSE (CPT-26871) Routine 09/08/2025 1:23 PM EST Type 2 diabetes mellitus with hyperglycemia, with long-term current use of insulin (HCC) CONFIRMATORY SYPHILIS PROFILE Routine 08/27/2025 10:52 AM EST TSH W/REFLEX TO FT4 Routine 08/27/2025 1 0:52 AM EST Abnormal thyroid function test TSH W/REFLEX TO FT4 Routine 08/27/2025 1 0:52 AM EST Abnormal thyroid function test SYPHILIS SCREEN Routine 08/27/2025 10:52 AM EST Screening examination for venereal disease HIV 1/2 ANTIGEN/ANTIBODY, FOURTH GENERATION W/RFL Routine 08/27/2025 10:52 AM EST Screening examination for venereal disease POCT GLUCOSE (CPT-48926) Routine 08/27/2025 10:19 AM EST Type 2 [...] 1:05 PM EST Malodorous urine POCT GLUCOSE (CPT-06522) Routine 07/21/2025 12:56 PM EST Type 2 diabetes mellitus with hyperglycemia, with long-term current use of insulin (HCC) POCT GLYCOSYLATED HEMOGLOBIN (HGB A1C) Routine 07/03/2025 11:23 AM EDT Type 2 diabetes mellitus with hyperglycemia, with long-term current use of insulin (HCC) POCT GLUCOSE (CPT-19109) Routine 07/03/2025 11:22 AM EDT Type 2 diabetes mellitus with hyperglycemia, with long-term current use of insulin (HCC) CT ABDOMEN PELVIS WO CONTRAST Routine 06/25/2025 12:08 PM EDT HEPATITIS C AB W/REFL TO HCV RNA, QN, PCR Routine 01/14/2025 11:56 AM EDT Routine screening for STI (sexually transmitted infection) ALBUMIN, RANDOM URINE W/CREATININE Routine 01/14/2025 11:56 AM EDT Type 2 diabetes mellitus with hyperglycemia, with long-term current use of insulin ([facility]) Dyslipidemia LIPID PANEL WITH REFLEX TO DIRECT LDL Routine 01/14/2025 11:56 AM EDT Type 2 diabetes mellitus with hyperglycemia, with long-term current use of insulin ([facility]) Dyslipidemia ZZZ HISTORICAL HPV E6/E7 RFLX VENU 16 18/45 Routine 08/25/2020 11:45 AM EST MAMMOGRAM GENERIC Routine 07/24/2020 10: 40 AM EST from Last 3 Months or Most Recently Relevant to Health Maintenance Results * (ABNORMAL) POCT urinalysis dipstick manually resulted (CPT 31171) (09/08/2025 2:22 PM EST) Only the most recent of2 resultswithin the time period is included. Color, UA Light Yellow Clarity, UA Clear [...] Media Lot # [id number] Lot# Expiration Date [id number] Urine (Urine, Random) 09/08/2025 2:22 PM EST Tyesha Houston MD POINT OF CARE TEST ENTER/EDIT OR DERABLES Final Result * (ABNORMAL) POCT glucose manually resulted (CPT-79653) (09/08/2025 1:23 PM EST) Only the most recent of4 resultswithin the time period is included. Glucose Blood, POC 341(A) 60 - 200 mg/dL QC Media Lot # [id number] Lot# Expiration Date Blood Capillary blood specimen / Unknown 09/08/2025 1:23 PM EST Tyesha Houston MD POINT OF CARE TEST ENTER/EDIT OR DERABLES Final Result * (ABNORMAL) Confirmatory Syphilis Profile (08/27/2025 10:52 AM EST) [facility] Rapid Plasma Reagin, Quant Non-React awilda Nonreactive [facility] Treponema pallidum Antibody, Particle Agglutination Reactive( A) Nonreactive [facility] Comment:These results must b e reported by the ordering clinician orclinical facility to the [facility] required by state law. 08/27/2025 10:5 2 AM EST 08/28/2025 5:32 AM EST [employer] [facility] LAB BLOOD ORDERABLES Final Res ult Performing Organization Address [facility] Co de Phone Number [facility] [address] [place] [phone] * (ABNORMAL) Syphilis Screen (08/27/2025 10:52 AM EST) [facility] Syphilis Screen Reactive( A) Nonreactive [facility] Comment:Reactive specimens a re sent to the [facility] Labfor confirmatory tests. Blood 08/27/2025 10:5 2 AM EST 08/27/2025 2:17 PM EST [employer] [facility] BLOOD ORDERABLES Final Res ult Performing Organization Address City/[facility]/ZIP Co de Phone Number [facility] [address] [place] [phone] * TSH W/Reflex to FT4 (08/27/2025 10:52 AM EST) Only the most recent of2 resultswithin the time period is included. TSH reflex Free T4 2.88 0.32 - 4.0 uIU/mL [facility] Blood Venous blood specimen / Unknown 08/27/2025 10:52 AM EST 08/27/2025 2:17 PM EST us Aissatou To DIRECTOR COMPENSATION LAB BLOOD ORDERABLES Final Resul t [facility] [address] [place] [phone] [phone] * HIV-1/2 Antigen and Antibodies, Fourth Generation, with Reflexes (08/27/2025 10:52 AM EST) HIV AB/AG Nonreactive Nonreactive [facility] Comment:HIV-1 p24 Ag and/or HIV-1/HIV-2 Ab not detected.A test result that is nonreactive does not exclude thepossibility of exposure to or infection with HIV-1 and/orHIV-2. Nonreactive results in this assay for individualswith prior exposure to HIV-1 and/or HIV-2 may be due toantigen and antibody levels that are below the limit ofdetection of this assay.The E.M.A.R.C. HIV Ag/Ab Combo assay result andsupplemental assay results should be interpreted inconjunction with the patient's clinical presentation,history and other laboratory results. If the results areinconsistent with clinical evidence, additional testing issuggested to confirm the result. Blood Venous blood specimen / Unknown 08/27/2025 10:52 AM EST 08/27/2025 2:17 PM EST us Penelope Deal HOTEL OPERATION MANAGER LAB BLOOD ORDERABLES Final Res ult [facility] [address] [place] [address] [phone] * CT Abdomen Pelvis w/o Contrast (08/13/2025) Only the most recent of3 resultswithin the time period is included. Anatomical Region Laterality Modality Body, Pelvis, Abdomen Computed T omography us Historical Provider MD MAURER CT PROCEDURES Final R esult * Urinalysis w/reflex microscopic (08/01/2025 6:03 PM EST) Color Urine Yellow [facility] Appearance Urine Clear [facility] PH 6.5 5.0 - 9.0 [facility] Glucose Urine UA Negative Negative mg/dL [facility] Urine Blood Negative Negative [facility] Specific [place] - Urine 1.010 1.005 - 1.025 [facility] Urine Protein Negative Neg-Trace mg/dL [facility] Urine Ketones Negative Negative mg/dL [facility] Nitrite Urine Negative Negative [facility] Leukocyte Esterase Urine Negative Negative [facility] 08/01/2025 6:03 PM EST 08/01/2025 6:07 PM EST Narrative [facility] - 08/01/2025 6:14 PM EST Urine, Clean Catch us Generic External Data Provider LAB URINE ORDERAB LES Final Result Performing Organization Address City/State/[facility] Co de Phone Number [facility] [address] [place] [phone] * (ABNORMAL) CBC auto differential (08/01/2025 4:06 PM EST) White Blood Count 6.5 4.8 - 10.8 X10*3/uL [facility] Red Blood Count 4.61 4.20 - 5.50 X10*6/uL [facility] Hemoglobin 13.2 12.0 - 16.0 g/dl [facility] Hematocrit 39.5 37.0 - 47.0 % [facility] Mean Corpuscular Volume 85.7 80.0 - 98.0 fL [facility] Mean Corpuscular Hemoglobin 28.6 27.0 - 33.0 pg [facility] Mean Corpuscular HGB Conc 33.4 31.0 - 35.0 g/dl [facility] Red Cell Distribution Width 12.1 11.0 - 16.0 % [facility] Platelet Count 231 160 - 400 X10*3/uL [facility] Mean Platelet Volume 9.4 9.4 - 12.3 fL [facility] Neutrophils Percent Auto 48.7 45 - 73 % [facility] Imm Gran Pct Auto 0.2 0.0 - 0.4 % [facility] Lymphocytes Percent Auto 38.3 20 - 40 % [facility] Monocytes Percent Auto 6.3 2 - 11 % [facility] Eosinophils Percent Auto 5.4(H) 0 - 4 % [facility] Basophils Percent Auto 1.1 0 - 2 % [facility] NRBC Pct Auto 0.0 0.0 - 0.2 /100WBC [facility] Neutrophils Absolute Auto 3.2 2.0 - 8.3 x10*3/uL [facility] Imm Gran Abs Auto 0.01 0.00 - 0.03 X10*3/uL [facility] Lymphocytes Absolute Auto 2.5 1.2 - 4.9 X10*3/uL [facility] Monocytes Absolute Auto 0.4 0.1 - 1.2 X10*3/uL [facility] Eosinophils Absolute Auto 0.4 0.0 - 0.4 X10*3/uL [facility] Basophils Absolute Auto 0.1 0.0 - 0.2 X10*3/uL [facility] NRBC Abs Auto 0.000 0.0 - 0.012 X10*3/uL [facility] 08/01/2025 4:06 PM EST 08/01/2025 4:13 PM EST us Generic External Data Provider LAB BLOOD ORDERAB LES Final Result [facility] [address] [place] [phone] * (ABNORMAL) Comprehensive Metabolic Panel (08/01/2025 4:06 PM EST) Sodium 142 135 - 145 mmol/L [facility] Potassium 3.5 3.3 - 5.1 mmol/L [facility] Chloride 109(H) 96 - 108 mmol/L [facility] Carbon Dioxide 26 22 - 29 mmol/L [facility] Anion Gap 11(L) 12 - 20 [facility] Urea Nitrogen (BUN) 18(H) 9 - 16 mg/dL [facility] Creatinine, Serum 0.75 0.5 - 1.4 mg/dL [facility] Creatinine Clr Calc Pharmacy 86.4 [facility] Comment:Provided height and weight: 157.48 cm,80.8 kg.eGFR (calculated from the MDRD study equation) and eCrCl(calculated from the Cockcroft-Gault equation) are based ondifferent parameters and may not yield comparable results.If eCrCl result is absurd, please check patient'sheight/weight. Estimated Glomerular Filt Rate >60 [facility] Comment:Chronic Kidney Disea se: Estimated GFR < 60 mL/min/1.97c2Ttmsuq Kidney Disease: Estimated GFR < 15 mL/min/1.73m2 Glucose 89 60 - 115 mg/dL [facility] Calcium 9.3 8.4 - 10.2 mg/dL [facility] Bilirubin, Total 0.4 0.0 - 1.0 mg/dL [facility] Aspartate Amino Transferase 24 5 - 31 U/L [facility] Alanine Aminotransferase 22 0 - 31 U/L [facility] Total Protein 7.1 6.5 - 8.0 g/dL [facility] Albumin Level 4.4 3.5 - 5.0 g/dL [facility] Alkaline Phosphatase 72 39 - 117 U/L [facility] 08/01/2025 4:06 PM EST 08/01/2025 4:13 PM EST us Generic External Data Provider LAB BLOOD ORDERAB LES Final Result [facility] [address] [place] [phone] * ECG 12 lead (07/28/2025 4:16 PM EST) Narrative Marcy Hatch HOTEL OPERATION MANAGER - 07/28/2025 4:16 PM EST NSR. See scanned report [facility] HOTEL OPERATION MANAGER ECG ORDERABLES Final Result * Culture, Urine, Routine (07/21/2025 1:41 PM EST) Urine Urine specimen obtained by clean catch procedure / Unknown 07/21/2025 1:41 PM EST 07/21/2025 6:10 PM EST Comment:UACC Narrative [facility] - 07/23/2025 10:15 AM EST Urine Culture Report Result Urine Culture 10,000 to 50,000 cfu/ml Urine Culture Mixed bacterial kole characteristic of Urine Culture urogenital contamination. Specimen Source: Urine clean catch Samantha Lima [facility] MICROBIOLOGY - GENERAL ORDER MICHAEL Final Result [facility] [address] [place] [phone] * (ABNORMAL) POCT glycosylated hemoglobin (Hgb A1c) (07/03/2025 11:23 AM EDT) Hemoglobin A1C 10.9(A) 4.0 - 5.7 % QC Media Lot # [id number] Lot# Expiration Date [id number] Blood Capillary blood specimen / Unknown 07/03/2025 11:23 AM EDT Tyesha Houston MD POINT OF CARE TEST ENTER/EDIT OR DERABLES Final Result * (ABNORMAL) Lipid Panel with Reflex to Direct LDL (01/14/2025 11:56 AM EDT) Triglycerides 133 <150 mg/dL [facility] Comment:Desirable Triglyceri de: less than 150 mg/dLBorderline High Triglyceride 150-199 mg/dLHigh Triglyceride: 200-499 mg/dLVery High Triglyceride: greater than or equal to 5OO mg/dL Cholesterol 226(H) <200 mg/dL [facility] Comment:Desirable Cholestero l: less than 200 mg/dLBorderline High Cholesterol: 200-239 mg/dLHigh Cholesterol: greater than 239 mg/dL LDL Cholesterol Calculated 116(H) <100 mg/dL [facility] Comment:Desirable LDL: less than 100 mg/dLNear Optimal/Above Optimal LDL: 110- 129 mg/dLBorderline High LDL: 130-159 mg/dLHigh LDL: 160-189 mg/dLVery High LDL: greater than or equal to 190 mg/dL HDL Cholesterol 84 >40 mg/dL [facility] Comment:Desirable HDL: great er than 40 mg/dL Note: This HDL assay may give artificially low results in patients with liver disease. Blood 01/14/2025 11:5 6 AM EDT 01/14/2025 1:25 PM EDT us Tyesha Houston MD LAB BLOOD ORDERABLES Final Resul t Performing Organization Address City/[facility] Co de Phone Number [facility] [address] [place] [address] [phone] * (ABNORMAL) Albumin, Random Urine W/Creatinine (01/14/2025 11:56 AM EDT) Creatinine, Urine 158.99 mg/dL [facility] Microalbumin Urine 66.0 mg/L [facility] Microalbum Creatinine Ratio Ur 41.5(H) <30 ug/mg cr [facility] Comment:Albumin/Creatinine R atio Reference Ranges: Normal: < 30 ug/mg creatinine Microalbuminuria: 30 - 300 ug/mg creatinineClinical Albuminuria: > 300 ug/mg creatinine Urine 01/14/2025 11:5 6 AM EDT 01/14/2025 1:07 PM EDT us Tyesha Houston MD LAB URINE ORDERABLES Final Resul t Performing Organization Address City/[facility]/ZIP Co de Phone Number [facility] [address] [place] [phone] * Hepatitis C Antibody with Reflex to HCV, RNA, Quantitative, Real-Time PCR (01/14/2025 11:56 AM EDT) Pathologist [facility] Hepatitis C Antibody Nonreactive Nonreactive [facility] Comment:Antibodies to HCV no t detected; does not exclude early acuteHCV infection. Blood Venous blood specimen / Unknown 01/14/2025 11:56 AM EDT 01/14/2025 1:25 PM EDT Tyesha Houston MD LAB BLOOD ORDERABLES Final Resul t [facility] [address] [place] [phone] [phone] * HPV E6/E7 RFLX VENU 16 18/45 (08/25/2020 11:45 AM EST) Pathologist [facility] HPV mRNA E6/E7 rflx Not Detected Not Detected [facility] Comment: This test was performed using the APTIMA HPV Assay ([employer] This assay detects E6/E7 viral messenger RNA (mRNA) from 14 high-risk HPV types (16,18,31,33,35,39,45,51,52,56,58,59,66,68). The analytical performance characteristics of this assay have been determined by [employer]. The modifications have not been cleared or approved by the FDA. This assay has been validated pursuant to the CLIA regulations and is used for clinical purposes. THIS TEST WAS PERFORMED AT: [email or web address] [address] [place] [address] [address] [address] ALDA NIXON MD 08/25/2020 11:4 5 AM EST us Sarina Ann HISTORICAL/NON ORDERABLE LABS Fi nal Result Performing Organization Address City/[facility]/ZIP Co de Phone Number [facility] [address] Street * Mammography Report 1 (07/24/2020 10:40 [...] 09/08/2025 Patient has chronic kidney disease 09/08/2025 Insurance [facility] C3 Care Teams General Manager In Training Relationship Specialty Start Date End Date Tyesha Houston MD [address] [place] [address] PCP - General Family Medicine 04/25/19 Hi Cortez, PharmD [address] [place] [address] Pharmacist Pharmacy 08/04/25
--- OUTSIDE RECORDS SUMMARY | 2025-09-08 18:15 | XMS_ITS | Encounter Summary ---
Author Organization [employer] Address 75 [facility] 7t [place] [address] Care Team Providers Care Lead Teacher Name Role Phone Tyesha Rogers MD Primary Care Provider [phone] Hi Cortez PharmD Unavailable [phone] Reason for Visit * Reason Comments Med Refill Encounter Details Date Type Department Care Team (Late st Contact Info) Description 04/24/2024 Refill [facility] [address] [place], [place] [phone] Tyesha Rogers MD [address] [place], [place] [phone] Vitamin D deficiency; Hypothyroidism, unspecified type Social [...] requests. This patient is currently living in [place]. She left [facility]. Please seen Dr. Grimes's note in February 2024. Thank you documented in this encounter Plan of Treatment Upcoming Encounters Date Type Department Care Team (Late st Contact Info) Description 09/19/2025 10:30 AM EST Clinical Support [facility] [address] [place] [address] Alva Frias RN [address] [place] [address] 09/30/2025 10:45 AM EST Office Visit [facility] [address] [place] [address] Tyesha Rogers MD [address] [place] [address] 10/23/2025 1:00 PM EST Office Visit [facility] OPTOMETRY [address] [place] [address] RafKatharine, OD 230 [place], [place] [phone] documented as of this encounter Visit Diagnoses Diagnosis Vitamin D deficiency Hypothyroidism, unspecified type documented in this encounter Additional Health Concerns Assessment Noted Time PHQ-9 Depression Total Score: 21 024 10:41 AM EDT documented as of this encounter Care Teams Lead Teacher Relationship Specialty Start Date End Date Tyesha Rogers MD [address] [place] [address] PCP - General Family Medicine 04/25/19 Hi Cortez, PharmD [address] [place] [address] Pharmacist Pharmacy 08/04/25 documented as of this encounter
--- OUTSIDE RECORDS SUMMARY | 2025-09-08 18:15 | XMS_ITS | Encounter Summary ---
Author Organization [email or web address] Address 75 [facility] 7t [place] [address] Care Team Providers Care Tie Bucker Name Role Phone Tyesha Rogers MD Primary Care Provider [phone] Hi Cortez PharmD Unavailable [phone] Reason for Visit * Reason Onset Date Comments Hospital Follow-up 05/29/2024 Encounter Details Date Type Department Care Team (Late st Contact Info) Description 05/29/2024 Telephone [facility] 230 [place], [place] [phone] Tyesha Rogers MD [address] [place], [place] [phone] Hospital Follow-up Social History Tobacco Use Types [...] from pt requesting a HDF appt. Hospital: [facility] Date of admission: 05/28/24 Discharge date: 05/29/24 Diagnosed: urticaria documented in this encounter Plan of Treatment Upcoming Encounters Date Type Department Care Team (Late st Contact Info) Description 09/19/2025 10:30 AM EST Clinical Support [facility] [address] [place] [address] Alva Frias RN [address] [place] [address] 09/30/2025 10:45 AM EST Office Visit [facility] [address] [place] [address] Tyesha Rogers MD [address] [place] [address] 10/23/2025 1:00 PM EST Office Visit [facility] OPTOMETRY [address] [place] [address] Katharine Carbone, OD [address] [place] [address] documented as of this encounter Visit Diagnoses Not on filedocumented in this encounter Additional Health Concerns Assessment Noted Time PHQ-9 Depression Total Score: 24 024 10:42 AM EDT documented as of this encounter Care Teams Tie Bucker Relationship Specialty Start Date End Date Tyesha Rogers MD [address] [place] [address] PCP - General Family Medicine 04/25/19 Hi Cortez, ManasD [address] [place] [address] [phone] Pharmacist Pharmacy 08/04/25 documented as of this encounter
--- OUTSIDE RECORDS SUMMARY | 2025-09-08 18:15 | XMS_ITS | Encounter Summary ---
Author Organization [employer] Address 75 [facility] 7 [place] [address] Care Team Providers Care Probation And Parole Officer Name Role Phone Tyesha Rogers MD Primary Care Provider [phone] Hi oCrtez PharmD Unavailable [phone] Reason for Visit * Reason Comments Med Refill Encounter Details Date Type Department Care Team (Late st Contact Info) Description 01/22/2024 Refill [facility] 230 [place], [place] [phone] Tyesha Rogers MD [address] [place], [place] [phone] Other chronic pain Social History Tobacco Use [...] Description 09/19/2025 10:30 AM EST Clinical Support [facility] [address] [place] [address] Alva Frias, LUCIUS 505 [place] [address] 09/30/2025 10:45 AM EST Office Visit [facility] [address] [place] [address] Tyesha Rogers MD 230 [place] [address] 10/23/2025 1:00 PM EST Office Visit [facility] OPTOMETRY [address] [place] [address] Katharine Carbone, OD 230 [place] [address] documented as of this encounter Visit Diagnoses Diagnosis Other chronic pain documented in this encounter Additional Health Concerns Assessment Noted Time PHQ-9 Depression Total Score: 21 024 10:41 AM EDT documented as of this encounter Care Teams Probation And Parole Officer Relationship Specialty Start Date End Date Tyesha Rogers MD [address] [place] [address] PCP - General Family Medicine 04/25/19 Hi Cortez, PharmD [address] [place] [address] Pharmacist Pharmacy 08/04/25 documented as of this encounter
--- OUTSIDE RECORDS SUMMARY | 2025-09-08 18:15 | XMS_ITS | Encounter Summary ---
Author Organization [employer] Address [address] [place] [address] 7 [place] [address] Care Team Providers Care Assistant Elementary Teacher Name Role Phone Tyesha Rogers MD Primary Care Provider [phone] Hi Cortez PharmD Unavailable [phone] Encounter Details Date Type Department Care Team ([facility] st Contact Info) Description 07/11/2024 Telephone [facility] [address] [place], [place] [phone] Mira Vanegas PharmD [address] [place], [place] [phone] Social History Tobacco Use Types Packs/Day Years [...] Please assist in obtaining discharge paperwork [place] [facility] Patient was admitted on 06/21/2024. Thank you documented in this encounter Plan of Treatment Upcoming Encounters Date Type Department Care Team (Late st Contact Info) Description 09/19/2025 10:30 AM EST Clinical Support [facility] [address] [place] [address] Alva Frias RN [address] [place] [address] 09/30/2025 10:45 AM EST Office Visit [facility] [address] [place] [address] Tyesha Rogers MD 230 [place] [address] 10/23/2025 1:00 PM EST Office Visit [facility] OPTOMETRY [address] [place] [address] Katharine Carbone, OD [address] [place] [address] documented as of this encounter Visit Diagnoses Not on filedocumented in this encounter Additional Health Concerns Assessment Noted Time PHQ-9 Depression Total Score: 24 024 8:33 AM EDT documented as of this encounter Care Teams Assistant Elementary Teacher Relationship Specialty Start Date End Date Tyesha Rogers MD [address] [place] [address] PCP - General Family Medicine 04/25/19 Hi Cortez, ManasD [address] [place] [address] Pharmacist Pharmacy 08/04/25 documented as of this encounter
--- OUTSIDE RECORDS SUMMARY | 2025-09-08 18:15 | XMS_ITS | Encounter Summary ---
Author Organization [employer] Address 75 [facility] 7 [place] [address] Care Team Providers Care Spooling Operator Name Role Phone Tyesha Rogers MD Primary Care Provider [phone] Hi Cortez PharmD Unavailable [phone] Reason for Visit * Reason Onset Date Comments New Med Request 05/03/2024 Medication Question 05/03/2024 Encounter Details Date Type Department Care Team ([facility] st Contact Info) Description 05/03/2024 Telephone [facility] [address] [place], [place] [phone] Tyesha Rogers MD [address] [place], [place] [phone] New Med Request; Medication Question Social History [...] pt is no longer a patient at [facility] due to move and because the medications were prescribed by her psychiatrist,she should reach out to psychiatrist for these medications. Patient stated she is moving back to [place], date unknown, video games storywriter again advised pt to contact psychiatrist as [...] medication for anxiety will be flying from [facility] on 05/14 and would like it to be sent to [facility]: [address] [place] [address] documented in this encounter Plan of Treatment Upcoming Encounters Date Type Department Care Team (Late st Contact Info) Description 09/19/2025 10:30 AM EST Clinical Support [facility] [address] [place] [address] Alva Frias, LUCIUS [address] [place] [address] 09/30/2025 10:45 AM EST Office Visit [facility] [address] [place] [address] Tyesha Rogers MD [address] [place] [address] 10/23/2025 1:00 PM EST Office Visit [facility] OPTOMETRY [address] [place] [address] Katharine Carbone, OD [address] [place] [address] documented as of this encounter Visit Diagnoses Not on filedocumented in this encounter Additional Health Concerns Assessment Noted Time PHQ-9 Depression Total Score: 21 024 10:41 AM EDT documented as of this encounter Care Teams Spooling Operator Relationship Specialty Start Date End Date Tyesha Rogers MD [address] [place] [address] PCP - General Family Medicine 04/25/19 Hi Cortez, PharmD [address] [place] [address] [phone] Pharmacist Pharmacy 08/04/25 documented as of this encounter
--- OUTSIDE RECORDS SUMMARY | 2025-09-08 18:15 | XMS_ITS | Encounter Summary ---
Author Organization [employer] Address 75 [facility] 7t [place] [address] Care Team Providers Care Shank Breaker Name Role Phone Tyesha Rogers MD Primary Care Provider [phone] Hi Cortez PharmD Unavailable [phone] Reason for Visit * Reason Onset Date Comments Nurse Triage 07/04/2023 Encounter Details Date Type Department Care Team (Late st Contact Info) Description 07/04/2023 Telephone [facility] MEDICINE [address] [place], [place] [phone] Tyesha Rogers MD 230 [place], [place] [phone] Nurse Triage Social History Tobacco Use Types [...] supposed to start the suboxone program at [facility] but, missedher appt. In May [...] on her way to Walk in at [facility]. I will send this note oliverio in [place] to let them know that pt. Will need a [facility] counselor present for appt. Pt. States that she will arrive to [facility] walk in around 1-130pm. Pt. [...] Description 09/19/2025 10:30 AM EST Clinical Support [address] [address] Alva Frias RN 505 [place] [address] 09/30/2025 10:45 AM EST Office Visit [address] [phone] Tyesha Rogers MD 230 [place] [address] 10/23/2025 1:00 PM EST Office Visit [facility] OPTOMETRY [address] [place] [address] Raf, Katharine, OD [address] [place] [address] documented as of this encounter Visit Diagnoses Not on filedocumented in this encounter Additional Health Concerns Assessment Noted Time PHQ-9 Depression Total Score: 9 08/18/20 22 11:40 AM EST documented as of this encounter Care Teams Shank Breaker Relationship Specialty Start Date End Date Tyesha Rogers MD [address] [place] [address] [phone] PCP - General Family Medicine 04/25/19 Hi Cortez, PharmD [address] [place] [address] Pharmacist Pharmacy 08/04/25 documented as of this encounter
--- OUTSIDE RECORDS SUMMARY | 2025-09-08 18:15 | XMS_ITS | Encounter Summary ---
Author Organization [employer] Address [address] [facility] 7t [place] [address] Care Team Providers Care Greenhouse Laborer Name Role Phone Tyesha Rogers MD Primary Care Provider [phone] Hi Cortez PharmD Unavailable [phone] Encounter Details Date Type Department Care Team (Late st Contact Info) Description 01/25/2024 Orders Only [facility] MEDICINE 230 [place], [place] [phone] Tyesha Rogers MD 230 [place], [place] [phone] Social History Tobacco Use Types Packs/Day Years [...] Description 09/19/2025 10:30 AM EST Clinical Support [facility] MEDICINE [address] [place] [address] Alva Frias RN 505 [place] [address] 09/30/2025 10:45 AM EST Office Visit [facility] MEDICINE [address] [place] [address] Tyesha Rogers MD [address] [place] [address] 10/23/2025 1:00 PM EST Office Visit [facility] OPTOMETRY [address] [place] [address] Katharine Carbone, OD [address] [place] [address] documented as of this encounter Visit Diagnoses Not on filedocumented in this encounter Additional Health Concerns Assessment Noted Time PHQ-9 Depression Total Score: 21 024 10:41 AM EDT documented as of this encounter Care Teams Greenhouse Laborer Relationship Specialty Start Date End Date Tyesha Rogers MD [address] [place] [address] PCP - General Family Medicine 04/25/19 Hi Cortez, PharmD [address] [place] [address] [place] [address] Pharmacist Pharmacy 08/04/25 documented as of this encounter
== END 2025-09-08 17:42 ==
LOC: HO.LNP 17:41
PROVIDERS: Visit Provider Family Medicine
DX: N20.0 Calculus of kidney (principal); R10.A2 Flank pain, left side
CPT/HCPCS: 87086